=== PATIENT | female | born 1950 | race Caucasian/White ===

== ENCOUNTER → 2019-04-17 | Outpatient (CLI) | payer MEDICARE, OTHER ==
--- NOTE | 2019-04-17 14:10 | US ---
EXAMINATION TYPE: US venous doppler duplex LE DATE OF EXAM: 04/17/2019 1:59 PM COMPARISON: NONE CLINICAL HISTORY: Pain in BLE M79.662 M79.661. Pt states pain in legs, more on right side SIDE PERFORMED: Bilateral TECHNIQUE: The lower extremity deep venous system is examined utilizing real time linear array sonog misty with graded compression, doppler sonography and color-flow sonography. VESSELS IMAGED: External Iliac Vein (EIV) Common Femoral Vein Deep Femoral Vein Greater Saphenous Vein * Femoral Vein Popliteal Vein Small Saphenous Vein * Proximal Calf Veins (* superficial vessels) Right Leg: Negative for DVT Left Leg: Negative for DVT Results called to Allie at Dr's office at time of exam IMPRESSION: 1. Bilateral lower extremity ultrasound negative for deep venous thrombosis.
== END | disposition home or self-care (01) ==
LOC: RADUSWWP 13:32
PROVIDERS: ATTEND Family Medicine
DX: M79.661 Pain in right lower leg (principal); M79.662 Pain in left lower leg
CPT/HCPCS: 93970

== ENCOUNTER 2022-02-25 07:25 | Inpatient (IN) | payer MEDICARE, OTHER ==
--- NOTE | 2022-02-25 07:46 | ED ---
General Adult HPI - General Stated complaint: SOB Time Seen by Provider: 02/25/22 07:25 Source: patient, RN notes reviewed, old records reviewed - History of Present Illness Initial comments: This is a 72-year-old female presents emergency Department stating for about a week now she short of breath and anytime she gets up and exerts herself is much more short of breath. Patient states getting progressively worse and today she couldn't walk across a room without being completely out of breath. Patient denies any chest pain or palpitations. Patient denies any black or bloody stools. Patient denies any recent fever chills or cough. Patient denies being on any blood thinners. Patient denies any history of clots. Patient denies any history of anemia. Patient denies any COPD or congestive heart history. - Related Data Allergies Allergy/AdvReac Type Severity Reaction Status Date / Time Penicillins Allergy Rash/Hives Verified 02/25/22 07:41 strawberry Allergy Rash/Hives Verified 02/25/22 07:41 Review of Systems ROS Statement: Those systems with pertinent positive or pertinent negative responses have been documented in the HPI. ROS Other: All systems not noted in ROS Statement are negative. General Exam - General Exam Comments Initial Comments: GENERAL: Patient is well-developed and well-nourished. Patient is nontoxic and well- hydrated and is in mild distress. ENT: Neck is soft and supple. No significant lymphadenopathy is noted. Oropharynx is clear. Moist mucous membranes. Neck has full range of motion without e liciting any pain. EYES: The sclera were anicteric and conjunctiva were pink and moist. Extraocular movements were intact and pupils were equal round and reactive to light. Eyelids were unremarkable. PULMONARY: Unlabored respirations. Good breath sounds bilaterally. No audible rales rhonchi or wheezing was noted. CARDIOVASCULAR: There is a regular rate and rhythm without any murmurs gallops or rubs. ABDOMEN: Soft and nontender with normal bowel sounds. SKIN: Skin is mildly pale NEUROLOGIC: Patient is alert and oriented x3. Cranial nerves II through XII are grossly intact. Motor and sensory are also intact. Normal speech, volume and content. Symmetrical smile. MUSCULOSKELETAL: Normal extremities with adequate strength and full range of motion. LYMPHATICS: No significant lymphadenopathy is noted PSYCHIATRIC: Normal psychiatric evaluation. Course Vital Signs 02/25/22 02/25/22 07:27 09:44 Temperature 97.9 F Pulse Rate 111 H 109 H Respiratory 32 H 22 Rate Blood Pressure 136/92 96/72 O2 Sat by Pulse 94 L 94 L Oximetry Medical Decision Making - Medical Decision Making EKG shows sinus tachycardia with occasional PAC at 106 bpm [place] interval 167 QRS is 92 QT interval 340 QTC is 402. EKG showsan elevation or depression Chest x-ray shows cardiomegaly. I got a CAT scan of the patient's chest to rule out PE. Patient has massive bilateral bases with right heart strain. I spoke with Dr. Sylvester he agreed to come in and take the patient to the Adult Parole Officer for an EKOS procedure. Spoke with Dr. Barrera he agreed to admit the patient admitted the patient wrote admitting orders. I also spoke with Dr. Joya and he agreed to see the patient in ICU - Lab Data Result diagrams: 02/25/22 08:03 02/25/22 08:03 Lab Results 02/25/22 02/25/22 02/25/22 Range/Units 08:03 08:03 08:03 WBC 16.7 H (3.8-10.6) k/uL RBC 4.94 (3.80-5.40) m/uL Hgb 15.6 (11.4-16.0) gm/dL Hct 48.2 H (34.0-46.0) % MCV 97.6 (80.0-100.0) fL MCH 31.6 (25.0-35.0) pg MCHC 32.4 (31.0-37.0) g/dL RDW 13.7 (11.5-15.5) % Plt Count 226 (150-450) k/uL MPV 7.9 Neutrophils % 87 % Lymphocytes % 7 % Monocytes % 3 % Eosinophils % 1 % Basophils % 1 % Neutrophils # 14.5 H (1.3-7.7) k/uL Lymphocytes # 1.2 (1.0-4.8) k/uL Monocytes # 0.6 (0-1.0) k/uL Eosinophils # 0.2 (0-0.7) k/uL Basophils # 0.1 (0-0.2) k/uL PT 11.2 (9.0-12.0) sec INR 1.0 (<1.2) APTT 24.0 (22.0-30.0) sec D-Dimer 4.20 H (<0.60) mg/L FEU Sodium 136 L (137-145) mmol/L Potassium 3.5 (3.5-5.1) mmol/L Chloride 102 (98-107) mmol/L Carbon Dioxide 24 (22-30) mmol/L Anion Gap 10 mmol/L BUN 21 H (7-17) mg/dL Creatinine 1.14 H (0.52-1.04) mg/dL Est GFR (CKD-EPI)AfAm 55 (>60 ml/min/1.73 sqM) Est GFR (CKD-EPI)NonAf 48 (>60 ml/min/1.73 sqM) Glucose 186 H (74-99) mg/dL Plasma Lactic Acid Gabino (0.7-2.0) mmol/L Calcium 9.1 (8.4-10.2) mg/dL Magnesium 1.9 (1.6-2.3) mg/dL Total Bilirubin 2.9 H (0.2-1.3) mg/dL AST 42 H (14-36) U/L ALT 41 H (4-34) U/L Alkaline Phosphatase 146 H (38-126) U/L Troponin I (0.000-0.034) ng/mL NT-Pro-B Natriuret Pep pg/mL Total Protein 6.9 (6.3-8.2) g/dL Albumin 3.8 (3.5-5.0) g/dL Coronavirus (PCR) (Not Detectd) 02/25/22 02/25/22 02/25/22 Range/Units 08:03 08:03 08:26 WBC (3.8-10.6) k/uL RBC (3.80-5.40) m/uL Hgb (11.4-16.0) gm/dL Hct (34.0-46.0) % MCV (80.0-100.0) fL MCH (25.0-35.0) pg MCHC (31.0-37.0) g/dL RDW (11.5-15.5) % Plt Count (150-450) k/uL MPV Neutrophils % % Lymphocytes % % Monocytes % % Eosinophils % % Basophils % % Neutrophils # (1.3-7.7) k/uL Lymphocytes # (1.0-4.8) k/uL Monocytes # (0-1.0) k/uL Eosinophils # (0-0.7) k/uL Basophils # (0-0.2) k/uL PT (9.0-12.0) sec INR (<1.2) APTT (22.0-30.0) sec D-Dimer (<0.60) mg/L FEU Sodium (137-145) mmol/L Potassium (3.5-5.1) mmol/L Chloride (98-107) mmol/L Carbon Dioxide (22-30) mmol/L Anion Gap mmol/L BUN (7-17) mg/dL Creatinine (0.52-1.04) mg/dL Est GFR (CKD-EPI)AfAm (>60 ml/min/1.73 sqM) Est GFR (CKD-EPI)NonAf (>60 ml/min/1.73 sqM) Glucose (74-99) mg/dL Plasma Lactic Acid Gabino (0.7-2.0) mmol/L Calcium (8.4-10.2) mg/dL Magnesium (1.6-2.3) mg/dL Total Bilirubin (0.2-1.3) mg/dL AST (14-36) U/L ALT (4-34) U/L Alkaline Phosphatase (38-126) U/L Troponin I 0.169 H* (0.000-0.034) ng/mL NT-Pro-B Natriuret Pep 6630 pg/mL Total Protein (6.3-8.2) g/dL Albumin (3.5-5.0) g/dL Coronavirus (PCR) Not Detected (Not Detectd) 02/25/22 Range/Units 08:28 WBC (3.8-10.6) k/uL RBC (3.80-5.40) m/uL Hgb (11.4-16.0) gm/dL Hct (34.0-46.0) % MCV (80.0-100.0) fL MCH (25.0-35.0) pg MCHC (31.0-37.0) g/dL RDW (11.5-15.5) % Plt Count (150-450) k/uL MPV Neutrophils % % Lymphocytes % % Monocytes % % Eosinophils % % Basophils % % Neutrophils # (1.3-7.7) k/uL Lymphocytes # (1.0-4.8) k/uL Monocytes # (0-1.0) k/uL Eosinophils # (0-0.7) k/uL Basophils # (0-0.2) k/uL PT (9.0-12.0) sec INR (<1.2) APTT (22.0-30.0) sec D-Dimer (<0.60) mg/L FEU Sodium (137-145) mmol/L Potassium (3.5-5.1) mmol/L Chloride (98-107) mmol/L Carbon Dioxide (22-30) mmol/L Anion Gap mmol/L BUN (7-17) mg/dL Creatinine (0.52-1.04) mg/dL Est GFR (CKD-EPI)AfAm (>60 ml/min/1.73 sqM) Est GFR (CKD-EPI)NonAf (>60 ml/min/1.73 sqM) Glucose (74-99) mg/dL Plasma Lactic Acid Gabino 3.2 H* (0.7-2.0) mmol/L Calcium (8.4-10.2) mg/dL Magnesium (1.6-2.3) mg/dL Total Bilirubin (0.2-1.3) mg/dL AST (14-36) U/L ALT (4-34) U/L Alkaline Phosphatase (38-126) U/L Troponin I (0.000-0.034) ng/mL NT-Pro-B Natriuret Pep pg/mL Total Protein (6.3-8.2) g/dL Albumin (3.5-5.0) g/dL Coronavirus (PCR) (Not Detectd) Critical Care Time Critical Care Time: Yes Total Critical Care Time: 35 Disposition Clinical Impression: Pulmonary embolism Disposition: ADMITTED IP TO THIS HOSP Referrals: Regulo Greene DO [Primary Care Provider] - 1-2 days Time of Disposition: 10:03
[2022-02-25 08:09] LABS: Basophils # (A) 0.1 k/uL (0-0.2); Basophils % (A) 1 %; Eosinophils # (A) 0.2 k/uL (0-0.7); Eosinophils % (A) 1 %; HCT 48.2 % (34.0-46.0); HGB 15.6 gm/dL (11.4-16.0); Lymphocytes # (A) 1.2 k/uL (1.0-4.8); Lymphocytes % (A) 7 %; MCH 31.6 pg (25.0-35.0); MCHC 32.4 g/dL (31.0-37.0); MCV 97.6 fL (80.0-100.0); Mean Platelet Volume 7.9; Monocytes # (A) 0.6 k/uL (0-1.0); Monocytes % (A) 3 %; Neutrophils # (A) 14.5 k/uL (1.3-7.7); Neutrophils % (A) 87 %; Platelet Count 226 k/uL (150-450); RBC 4.94 m/uL (3.80-5.40); RDW 13.7 % (11.5-15.5); WBC 16.7 k/uL (3.8-10.6)
[2022-02-25 08:20] LABS: Albumin 3.8 g/dL (3.5-5.0); Calcium 9.1 mg/dL (8.4-10.2); Magnesium 1.9 mg/dL (1.6-2.3); Potassium 3.5 mmol/L (3.5-5.1); Total Bilirubin 2.9 mg/dL (0.2-1.3); Total Protein 6.9 g/dL (6.3-8.2)
--- NOTE | 2022-02-25 08:22 | XR ---
EXAMINATION TYPE: XR chest 2V DATE OF EXAM: 02/25/2022 COMPARISON: NONE HISTORY: Shortness of breath. TECHNIQUE: Frontal and lateral views of the chest are obtained. FINDINGS: Elevated and eventrated anterior aspect right hemidiaphragm. There is mild cardiomegaly wi th bilateral hilar prominence possible underlying pulmonary artery hypertension. Mild central vascu lar congestion is seen. No pleural effusion or pneumothorax noted bilaterally. The osseous structures are intact. IMPRESSION: Suspect CHF exacerbation as there is mild cardiomegaly with mild central vascular conges tion. Correlate clinically and with BNP values.
[2022-02-25 08:27] LABS: Prothrombin Time 11.2 sec (9.0-12.0)
[2022-02-25] MEDS ORDERED: HEPARIN SODIUM 1,000 UN/ML (10ML VL) IV ONE (09:33)
--- NOTE | 2022-02-25 09:41 | CT ---
EXAMINATION TYPE: CT chest angio for PE DATE OF EXAM: 02/25/2022 COMPARISON: NONE HISTORY: Shortness of breath with elevated d-dimer CT DLP: 868.8 mGycm. Automated Exposure Control for Dose Reduction was Utilized. CONTRAST: CTA scan of the thorax is performed with IV Contrast, patient injected with 80 mL of Isovue 370, pulm onary embolism protocol. MIP Images are created on CT scanner and reviewed. FINDINGS: Evaluation is suboptimal as patient unable to hold breath. This limits evaluation for subce ntimeter nodules LUNGS: Elevated and eventrated anterior aspect right hemidiaphragm redemonstrated. Small focus of bob undglass opacity in the superior aspect left lower lobe. Some increased ground glass opacities in the bilateral hilar region. No pleural effusion or pneumothorax seen bilaterally. MEDIASTINUM: There is satisfactory enhancement of the pulmonary artery and its branches, there is si gnificant bilateral pulmonary emboli. Embolism in the distal right pulmonary artery extends into uppe r lobe branch axial image 51. There is right middle lobe involvement with segmental extension. There is segmental thrombus in the right lower lobe with subsegmental extension. There is clot in lingular and left lower lobe arterial takeoffs with segmental and subsegmental extension. Some additional clot and segmental branches in the left upper lobe. There is right ventricular dilatation axial image 84. Abnormal ratio. Moderate to severe right atrial dilatation is seen. Mild cardiomegaly. No pericardial effusion. Slight reflux of contrast into the suprahepatic IVC. Enlarged pulmonary all giles consistent with underlying pulmonary artery hypertension. OTHER: Cholecystectomy clips. Some cortical thinning in both kidneys. [id number] multilevel spu rring and disc space narrowing in the thoracic spine. Exaggerated thoracic kyphosis. IMPRESSION: Significant bilateral pulmonary emboli with CT evidence suggesting right ventricular strain as detail ed above. Critical results communicated to ordering ER physician via telephone at time of dictation
[2022-02-25] MEDS: HEPARIN SOD,PORK IN 0.45% NACL 25,000 UNIT in 0.45% NACL 1 250ML.BAG IV SCH (09:42)
--- NOTE | 2022-02-25 10:42 | P.HPIM ---
History of Present Illness 72-year-old pleasant female came in with complains of shortness of breath going on for about a week denied any history of COPD and CHF patient was also comparing of swelling in the right lower extremity which is going on over a week. Patient denied any fever chills patient denied any recent travel patient is obese does have osteoarthritis because of which she uses a walker walker. Patient is up-to-date with the mammograms and cervical cancer screening patient had colon cancer screening with FOBT but the never had colonoscopy. Patient the did lose some weight as she is not been eating well since shortness of breath otherwise there is no other significant weight loss. Patient is found to have extensive bilateral pulmonary embolism with elevated troponin and the right ventricle as strain on the CT of the chest echocardiogram will be obtained. Patient was started on IV heparin vascular surgery was consulted and patient will under ECOS. Any family history of blood clots patient denied any previous history of blood clots. She denied any chest pain REVIEW OF SYSTEMS: CONSTITUTIONAL: No fever, no malaise, no fatigue. HEENT: No recent visual problems or hearing problems. Denied any sore throat. CARDIOVASCULAR: No chest pain, orthopnea, PND, no palpitations, no syncope. PULMONARY: no cough, no hemoptysis. GASTROINTESTINAL: No diarrhea, no nausea, no vomiting, no abdominal pain. NEUROLOGICAL: No headaches, no weakness, no numbness. HEMATOLOGICAL: Denies any bleeding or petechiae. GENITOURINARY: Denies any burning micturition, frequency, or urgency. MUSCULOSKELETAL/RHEUMATOLOGICAL: Denies any joint pain, swelling, or any muscle pain. ENDOCRINE: Denies any polyuria or polydipsia. The rest of the 14-point review of systems is negative. PHYSICAL EXAMINATION: GENERAL: The patient is alert and oriented x3, not in any acute distress. Obese HEENT: Pupils are round and equally reacting to light. EOMI. No scleral icterus. No conjunctival pallor. Normocephalic, atraumatic. No pharyngeal erythema. No thyromegaly. CARDIOVASCULAR: S1 and S2 present. No murmurs, rubs, or gallops. PULMONARY: Chest is clear to auscultation, no wheezing or crackles. ABDOMEN: Soft, nontender, nondistended, normoactive bowel sounds. No palpable organomegaly. MUSCULOSKELETAL: No joint swelling or deformity. EXTREMITIES: No cyanosis, clubbing, or lateral lower extremity pitting pedal edema right more than left denied any leg pain. NEUROLOGICAL: Gross neurological examination did not reveal any focal deficits. SKIN: No rashes. Assessment and plan 1 acute hypoxic respiratory failure secondary to extensive pulmonary embolism. Patient on IV heparin. -Extensive bilateral pulmonary embolism with possible right lower extremity DVT. PE is probably due to her decreased functional status and obesity. Patient will need to be on anti-correlation for 3-6 months followed by workup for procoagulant conditions as an outpatient. Patient will undergo ECOS. Obesity -leukocytosis secondary to pulmonary embolism -Elevated troponins probably secondary to right ventricle strain -Mild acute renal failure. Continue with IV fluids probably prerenal azotemia -Mildly elevated liver enzymes/transaminitis no further intervention at this time secondary to PE DVT prophylaxis: As mentioned above Past Medical History Past Medical History: Hyperlipidemia, Hypertension History of Any Multi-Drug Resistant Organisms: None Reported Past Surgical History: Cholecystectomy, Hysterectomy Additional Past Surgical History / Comment(s): Pt states she had a rt hip replacement 20 years ago Past Psychological History: No Psychological Hx Reported Smoking Status: Former smoker Past Alcohol Use History: None Reported Past Drug Use History: None Reported Medications and Allergies Allergies Allergy/AdvReac Type Severity Reaction Status Date / Time Penicillins Allergy Rash/Hives Verified 02/25/22 07:41 strawberry Allergy Rash/Hives Verified 02/25/22 07:41 Physical Exam Vitals: Vital Signs Temp Pulse Resp BP Pulse Ox 02/25/22 09:44 109 H 22 96/72 94 L 02/25/22 07:27 97.9 F 111 H 32 H 136/92 94 L Intake and Output 02/24/22 02/25/22 02/25/22 22:59 06:59 14:59 Other: Weight 133.81 kg Results CBC & Chem 7: 02/25/22 08:03 02/25/22 08:03 Labs: Abnormal Lab Results - Last 24 Hours (Table) 02/25/22 02/25/22 02/25/22 Range/Units 08:03 08:03 08:03 WBC 16.7 H (3.8-10.6) k/uL Hct 48.2 H (34.0-46.0) % Neutrophils # 14.5 H (1.3-7.7) k/uL D-Dimer 4.20 H (<0.60) mg/L FEU Sodium 136 L (137-145) mmol/L BUN 21 H (7-17) mg/dL Creatinine 1.14 H (0.52-1.04) mg/dL Glucose 186 H (74-99) mg/dL Plasma Lactic Acid Gabino (0.7-2.0) mmol/L Total Bilirubin 2.9 H (0.2-1.3) mg/dL AST 42 H (14-36) U/L ALT 41 H (4-34) U/L Alkaline Phosphatase 146 H (38-126) U/L Troponin I (0.000-0.034) ng/mL 02/25/22 02/25/22 Range/Units 08:03 08:28 WBC (3.8-10.6) k/uL Hct (34.0-46.0) % Neutrophils # (1.3-7.7) k/uL D-Dimer (<0.60) mg/L FEU Sodium (137-145) mmol/L BUN (7-17) mg/dL Creatinine (0.52-1.04) mg/dL Glucose (74-99) mg/dL Plasma Lactic Acid Gabino 3.2 H* (0.7-2.0) mmol/L Total Bilirubin (0.2-1.3) mg/dL AST (14-36) U/L ALT (4-34) U/L Alkaline Phosphatase (38-126) U/L Troponin I 0.169 H* (0.000-0.034) ng/mL
[2022-02-25] MEDS ORDERED: LORazepam 2 MG/ML INJ IV STA (10:45)
--- NOTE | 2022-02-25 11:11 | P.CRDCN ---
History of Present Illness History of present illness: HISTORY OF PRESENTING ILLNESS Patient is a pleasant 72-year-old female with only medical history of orthopedic issues who presents secondary to worsening shortness breath over the last 2-3 w eeks. She states that initially 3 weeks ago she felt this started with a sinus infection and started to feel somewhat short of breath. Therefore she was given antibiotics and did not really have much of an improvement. She felt much worse 4 days ago in terms of her shortness breath and then somewhat more lightheaded and short of breath especially yesterday and therefore presented to emergency department. She was noted to be hypoxic and placed on nonrebreather. She has also noticed increased lower extremity swelling over the last week or 2. DDimer 4.2, LA 3.2, Cr 1.1, Troponin 0.16, T Bili 2.9, AST 42, ALT 41, proBNP 6630, WBC 16.7, hgb 15.6 CTA bilateral PE with RV strain. REVIEW OF SYSTEMS At the time of my exam: CONSTITUTIONAL: Denies fever or chills. CARDIOVASCULAR: +chest pain, +shortness of breath, no orthopnea, PND or palpitations. RESPIRATORY: Denies cough. GASTROINTESTINAL: Denies abdominal pain, diarrhea, constipation, nausea or vomiting. MUSCULOSKELETAL: Denies myalgias. NEUROLOGIC: Denies numbness, tingling or weakness. ENDOCRINE: Denies fatigue, weight change, polydipsia or polyurina. GENITOURINARY: Denies burning, hematuria or urgency with micturation. HEMATOLOGIC: Denies history of anemia or bleeding. PHYSICAL EXAMINATION Vital signs reviewed. CONSTITUTIONAL: No apparent distress, mildly tachycardic, on nonrebreather HEENT: Head is normocephalic. Pupils are equal, round. Sclerae anicteric. Mucous membranes of the mouth are moist. No JVD. No carotid bruit. CHEST EXAMINATION: Lungs are clear to auscultation. No chest wall tenderness is noted on palpation or with deep breathing. HEART EXAMINATION: Regular rate and rhythm. S1, S2 heard. No murmurs, gallops or rub. ABDOMEN: Soft, nontender. Positive bowel sounds. EXTREMITIES: 2+ peripheral pulses, 1-2+ lower extremity edema and no calf tenderness. NEUROLOGIC EXAMINATION: Patient is awake, alert and oriented x3. ASSESSMENT 1. Acute oxygen-dependent respiratory failure related to pulmonary embolism 2. Submassive bilateral pulmonary embolism with RV strain 3. Non-STEMI likely related to pulmonary embolism 4. Chest pain related to pulmonary embolism 5. Lower extremity edema rule out DVT versus component of right-sided heart failure PLAN CT reviewed with bilateral PE and evidence of RV strain. Check 2D echo. Continue heparin drip. Discussed recommendations for EKOS and patient is agreeable. Elevated troponins and chest pain appear related to PE and not consistent with angina however evaluate LV function. Check LE US r/o DVT. Further recommendations to follow. Past Medical History Past Medical History: Hyperlipidemia, Hypertension History of Any Multi-Drug Resistant Organisms: None Reported Past Surgical History: Cholecystectomy, Hysterectomy Additional Past Surgical History / Comment(s): Pt states she had a rt hip replacement 20 years ago Past Psychological History: No Psychological Hx Reported Smoking Status: Former smoker Past Alcohol Use History: None Reported Past Drug Use History: None Reported Medications and Allergies Allergies Allergy/AdvReac Type Severity Reaction Status Date / Time Penicillins Allergy Rash/Hives Verified 02/25/22 07:41 strawberry Allergy Rash/Hives Verified 02/25/22 07:41 Physical Exam Vitals: Vital Signs Temp Pulse Resp BP Pulse Ox 02/25/22 09:44 109 H 22 96/72 94 L 02/25/22 07:27 97.9 F 111 H 32 H 136/92 94 L Intake and Output 02/24/22 02/25/22 02/25/22 22:59 06:59 14:59 Other: Weight 133.81 kg Results 02/25/22 08:03 02/25/22 08:03 Cardiac Enzymes 02/25/22 02/25/22 Range/Units 08:03 08:03 AST 42 H (14-36) U/L Troponin I 0.169 H* (0.000-0.034) ng/mL Coagulation 02/25/22 Range/Units 08:03 PT 11.2 (9.0-12.0) sec APTT 24.0 (22.0-30.0) sec CBC 02/25/22 Range/Units 08:03 WBC 16.7 H (3.8-10.6) k/uL RBC 4.94 (3.80-5.40) m/uL Hgb 15.6 (11.4-16.0) gm/dL Hct 48.2 H (34.0-46.0) % Plt Count 226 (150-450) k/uL Comprehensive Metabolic Panel 02/25/22 Range/Units 08:03 Sodium 136 L (137-145) mmol/L Potassium 3.5 (3.5-5.1) mmol/L Chloride 102 (98-107) mmol/L Carbon Dioxide 24 (22-30) mmol/L BUN 21 H (7-17) mg/dL Creatinine 1.14 H (0.52-1.04) mg/dL Glucose 186 H (74-99) mg/dL Calcium 9.1 (8.4-10.2) mg/dL AST 42 H (14-36) U/L ALT 41 H (4-34) U/L Alkaline Phosphatase 146 H (38-126) U/L Total Protein 6.9 (6.3-8.2) g/dL Albumin 3.8 (3.5-5.0) g/dL Current Medications Generic Name Dose Route Start Last Admin Trade Name Freq PRN Reason Stop Dose Admin Heparin Sodium/Sodium Chloride 250 mls @ 22.999 mls/hr 02/25/22 09:45 02/25/22 09:42 25,000 unit/ Sodium Chloride IV 17.188 units/kg/hr .[id number] ANNA 22.999 mls/hr Administration Protocol 17.188 UNITS/KG/HR Intake and Output 02/24/22 02/25/22 02/25/22 22:59 06:59 14:59 Other: Weight 133.81 kg Patient Weight 02/26/22 06:59 Weight 133.81 kg 02/25/22 08:03 02/25/22 08:03
--- NOTE | 2022-02-25 12:14 | US ---
EXAMINATION TYPE: US venous doppler duplex LE BI DATE OF EXAM: 02/25/2022 12:06 PM COMPARISON: NONE CLINICAL HISTORY: 72-year-old female with lower extremity edema, rule out DVT. Bilateral edema with c urrent PE. SIDE PERFORMED: Bilateral TECHNIQUE: The lower extremity deep venous system is examined utilizing real time linear array sonog misty with graded compression, doppler sonography and color-flow sonography. FINDINGS: VESSELS IMAGED: Common Femoral Vein Deep Femoral Vein Greater Saphenous Vein * Femoral Vein Popliteal Vein Small Saphenous Vein * Proximal Calf Veins (* superficial vessels) Right Leg: Negative for DVT Left Leg: Negative for DVT Car Hop notes: No DVT seen at this time, limited assessment of the calf vessels due to patient lasha dy habitus, Right Peroneal veins are not seen. IMPRESSION: No evidence for DVT within the bilateral lower extremities imaged from the groin into the uppermost c corley. Further assessment of the calf vessels is limited due to patient body habitus.
[2022-02-25] MEDS ORDERED: ALTEPLASE 10 MG in SODIUM CHLORIDE 0.9% 90 ML IV ONE ×4 (13:21)
[2022-02-25 13:26] LABS: Glucose,Whole Blood 159 mg/dL (75-99)
[2022-02-25] MEDS ORDERED: ALTEPLASE 2 MG VIAL (CATHFLO) IV STA (13:27)
[2022-02-25] MEDS ORDERED: HEPARIN SOD,PORK IN 0.45% NACL 25,000 UNIT in 0.45% NACL 1 250ML.BAG IV SCH ×2 (13:30)
[2022-02-25] MEDS ORDERED: SODIUM CHLORIDE 0.9% 1,000 ML IV SCH ×2 (13:30)
[2022-02-25] MEDS ORDERED: fentaNYL (PF) 50 MCG/ML 2 ML AMP ONE (13:56)
[2022-02-25] MEDS ORDERED: MIDAZOLAM 2 MG/2 ML VIAL IV ONE (13:57)
[2022-02-25] MEDS ORDERED: fentaNYL (PF) 50 MCG/ML 2 ML AMP IV ONE (13:59)
[2022-02-25] MEDS ORDERED: LIDOCAINE 1% INJ 10MG/ML (20 ML MDV) SQ ONE (14:00)
[2022-02-25] MEDS ORDERED: SODIUM CHLORIDE 0.9% 500 ML 500 ML IV ONE ×2 (14:34→14:35)
[2022-02-25 15:06] LABS: Glucose,Whole Blood 165 mg/dL (75-99)
--- NOTE | 2022-02-25 15:20 | P.CNPUL ---
History of Present Illness Consult date: 02/25/22 Requesting physician: Rene Sylvester Reason for consult: dyspnea Chief complaint: Shortness of breath History of present illness: 72-year-old female patient of Dr. Regulo Greene with past medical history of hypertension, hyperlipidemia, osteoarthritis, lifetime nonsmoker who came into the emergency department on 02/25/2022 with one week history of worsening shortness of breath especially with exertion. Patient stated that the shortness of breath has been progressively worse and today she couldn't walk across the room without being completely out of breath. She denied chest pain or palpit ations, no recent illness, no fever, chills or cough. No previous history of DVT or pulmonary emboli. No history of chronic lung disease, no COPD or CHF. Not normally oxygen dependent. EKG shows sinus tachycardia with occasional PACs, chest x-ray showed cardiomegaly, CT angiogram of the chest to rule out pulmonary embolism showed massive bilateral pulmonary emboli with right heart strain. Admission blood work showed white blood cell count of 16.7, hemoglobin of 15.6. INR was 1.0, d-dimer was 4.2, sodium is 136, potassium is 3.5, chloride is 102, BUN is 21, creatinine is 1.14. Lactic acid was 3.2 and subsequently increased to 3.7, AST was 42, ALT was 41, alk phos was 146, troponin was 0.169, proBNP was 6630. COVID-19 PCR was negative. Patient was urgently seen by cardiology and was advised EKOS catheter placement with alteplase infusion. Patient denied recent surgery, denied increased immobility, long car ride or airplane ride. She did have a what felt like a sinus infection for which she was treated with antibiotics. Patient does have a lower extremity edema but lower extremity Dopplers were negative for DVT. 2-D echocardiogram is pending. 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 She states her breathing is improved, she is currently in the 100% nonrebreather mask she is awake and alert, oriented 3. Appears to be in no acute distress. She is waiting to be transferred to the intensive care unit. Review of Systems All systems: negative Constitutional: Denies chills, Denies fever Eyes: denies blurred vision, denies pain Ears, nose, mouth and throat: Denies headache, Denies sore throat Cardiovascular: Reports chest pain, Denies shortness of breath Respiratory: Reports dyspnea, Denies cough Gastrointestinal: Denies abdominal pain, Denies diarrhea, Denies nausea, Denies vomiting Genitourinary: Denies dysuria, Denies hematuria Musculoskeletal: Denies myalgias Integumentary: Denies pruritus, Denies rash Neurological: Denies numbness, Denies weakness Psychiatric: Denies anxiety, Denies depression Endocrine: Denies fatigue, Denies weight change Past Medical History Past Medical History: Hyperlipidemia, Hypertension History of Any Multi-Drug Resistant Organisms: None Reported Past Surgical History: Cholecystectomy, Hysterectomy Additional Past Surgical History / Comment(s): Pt states she had a rt hip replacement 20 years ago Past Psychological History: No Psychological Hx Reported Smoking Status: Former smoker Past Alcohol Use History: None Reported Past Drug Use History: None Reported Medications and Allergies Home Medications Medication Instructions Recorded Confirmed Type Aspirin 81 mg PO HS 02/25/22 02/25/22 History Atorvastatin [Lipitor] 80 mg PO HS 02/25/22 02/25/22 History Bisoprolol-Hctz 2.5-6.25 mg [Ziac 1 tab PO DAILY 02/25/22 02/25/22 History 2.5-6.25 MG] Furosemide [Lasix] 20 mg PO DAILY 02/25/22 02/25/22 History Levothyroxine Sodium [Synthroid] 75 mcg PO DAILY 02/25/22 02/25/22 History Meloxicam [Mobic] 15 mg PO DAILY 02/25/22 02/25/22 History amLODIPine [Norvasc] 10 mg PO HS 02/25/22 02/25/22 History Allergies Allergy/AdvReac Type Severity Reaction Status Date / Time Penicillins Allergy Rash/Hives Verified 02/25/22 13:11 @ Allergy testing site strawberry Allergy Rash/Hives Verified 02/25/22 13:11 all over body Physical Exam Vitals: Vital Signs Temp Pulse Resp BP Pulse Ox 02/25/22 14:54 103 H 26 H 109/21 94 L 02/25/22 12:33 108 H 30 H 103/66 96 02/25/22 09:44 109 H 22 96/72 94 L 02/25/22 08:34 32 H 02/25/22 07:27 97.9 F 111 H 32 H 136/92 94 L Intake and Output 02/24/22 02/25/22 02/25/22 22:59 06:59 14:59 Output Total 0 Balance 0 Output: Urine 0 Other: Weight 133.81 kg GENERAL EXAM: Alert, very pleasant, 72-year-old white female, on the 100% n onrebreather mask, seen in the cathlab, comfortable in no apparent distress. HEAD: Normocephalic/atraumatic. EYES: Normal reaction of pupils, equal size. Conjunctiva pink, sclera white. NOSE: Clear with pink turbinates. THROAT: No erythema or exudates. NECK: No masses, no JVD, no thyroid enlargement, no adenopathy. CHEST: No chest wall deformity. Symmetrical expansion. LUNGS: Equal air entry with no crackles, wheeze, rhonchi or dullness. CVS: Regular rate and rhythm, normal S1 and S2, no gallops, no murmurs, no rubs ABDOMEN: Soft, nontender. No hepatosplenomegaly, normal bowel sounds, no g uarding or rigidity. Right groin catheters in place EXTREMITIES: No clubbing, no edema, no cyanosis, 2+ pulses and upper and lower extremities. MUSCULOSKELETAL: Muscle strength and tone normal. SPINE: No scoliosis or deformity SKIN: No rashes CENTRAL NERVOUS SYSTEM: Alert and oriented -3. No focal deficits, tone is normal in all 4 extremities. PSYCHIATRIC: Alert and oriented -3. Appropriate affect. Intact judgment and insight. Results - Laboratory Findings CBC and BMP: 02/25/22 08:03 02/25/22 08:03 PT/INR, D-dimer PT 11.2 sec (9.0-12.0) 02/25/22 08:03 INR 1.0 (<1.2) 02/25/22 08:03 D-Dimer 4.20 mg/L FEU (<0.60) H 02/25/22 08:03 Abnormal lab findings: Abnormal Labs 02/25/22 02/25/22 02/25/22 08:03 08:03 08:03 WBC 16.7 H Hct 48.2 H Neutrophils # 14.5 H APTT D-Dimer 4.20 H Sodium 136 L BUN 21 H Creatinine 1.14 H Glucose 186 H POC Glucose (mg/dL) Plasma Lactic Acid Gabino Total Bilirubin 2.9 H AST 42 H ALT 41 H Alkaline Phosphatase 146 H Troponin I 02/25/22 02/25/22 02/25/22 08:03 08:28 13:03 WBC Hct Neutrophils # APTT D-Dimer Sodium BUN Creatinine Glucose POC Glucose (mg/dL) Plasma Lactic Acid Gabino 3.2 H* 3.7 H* Total Bilirubin AST ALT Alkaline Phosphatase Troponin I 0.169 H* 02/25/22 02/25/22 13:21 13:24 WBC Hct Neutrophils # APTT >200.0 H* D-Dimer Sodium BUN Creatinine Glucose POC Glucose (mg/dL) 159 H Plasma Lactic Acid Gabino Total Bilirubin AST ALT Alkaline Phosphatase Troponin I - Diagnostic Findings Chest x-ray: report reviewed, image reviewed CT scan - chest: report reviewed, image reviewed Additional studies: Venous doppler results ekg reviewed Assessment and Plan Plan: Assessment: #1. Acute hypoxic respiratory failure, shortness of breath related to submassive bilateral pulmonary emboli with CT evidence suggesting right ventricular strain, status post EKOS catheter placement and alteplase infusion on 02/25/2022 #2. Elevated troponins related to the above #3. Lower extremity edema, no evidence of DVT on lower extremity Dopplers #4. Recent sinus infection #5. Osteoarthritis #6. Hypertension #7. Hyperlipidemia #8. Nonsmoker #9. Morbid obesity with BMI of 49.1 kg/m Plan: Continue post EKOS catheter placement care and alteplase infusion per cardiology in the intensive care unit Hemodynamically patient is stable Weaning FiO2 to keep O2 sat at or above 92-94% Echocardiogram is pending Home meds have been reconciled, and some of them reordered We'll hold off on blood pressure pills including Norvasc, Ziac, Hold Mobic We may add IV Cleviprex if there are issues with high blood pressure Continue close hemodynamic monitoring in the intensive care unit I have personally seen and examined the patient, performed the documentation and the assessment and plan as written. Number of minutes spent on the visit: [15] Time with Patient: Greater than 30
[2022-02-25] MEDS: LEVOTHYROXINE 75 MCG TAB PO SCH (16:15)
--- NOTE | 2022-02-25 19:00 | ECHOF ---
Referral Reason:re: RV strain MEASUREMENTS -------- HEIGHT: 165.1 cm WEIGHT: 133.8 kg BP: 113/65 RVIDd: 4.3 cm (< 3.3) IVSd: 1.7 cm (0.6 - 1.1) LVIDd: 2.3 cm (3.9 - 5.3) LVPWd: 1.6 cm (0.6 - 1.1) IVSs: 1.8 cm LVIDs: 1.4 cm LVPWs: 2.0 cm Ao Diam: 2.2 cm (2.0 - 3.7) AV Cusp: 1.1 cm (1.5 - 2.6) LA Diam: 5.7 cm (2.7 - 3.8) MV E Chandrakant: 0.53 m/s MV DecT: 144 ms MV A Chandrakant: 1.11 m/s MV E/A Ratio: 0.48 RAP: 5.00 mmHg RVSP: 75.14 mmHg TAPSE: 17.26 mm FINDINGS -------- Sinus rhythm. This was a technically adequate study. The left ventricular size is normal. There is severe concentric left ventricular hypertrophy. Ove rall left ventricular systolic function is normal with, an EF between 55 - 60 %. Increased Lap Grad e II Diastolic Dysfunction. The right ventricle is severely enlarged. Paradoxical motion of the right ventricular septum is con sistent with right ventricular overload and/or elevated right ventricular end-diastolic pressure. R V Systolic Dysfunction The left atrium was not well visualized. The right atrium is moderately enlarged. Interatrial septal aneurysm. The aortic valve is trileaflet and appears structurally normal. There is no evidence of aortic regu rgitation. There is no evidence of aortic stenosis. Mild mitral regurgitation is present. Severe tricuspid regurgitation present. There is severe pulmonary hypertension. The right ventric ular systolic pressure, as measured by Doppler, is 75.14mmHg. There is no pulmonic regurgitation present. The aortic root size is normal. IVC Not well visulized. There is no pericardial effusion. CONCLUSIONS -------- 1. The left ventricular size is normal. 2. There is severe concentric left ventricular hypertrophy. 3. Overall left ventricular systolic function is normal with, an EF between 55 - 60 %. 4. Increased Lap Grade II Diastolic Dysfunction. 5. The right ventricle is severely enlarged. 6. Paradoxical motion of the right ventricular septum is consistent with right ventricular overload a nd/or elevated right ventricular end-diastolic pressure. 7. RV Systolic Dysfunction 8. The right atrium is moderately enlarged. 9. Interatrial septal aneurysm. 10. Mild mitral regurgitation is present. 11. Severe tricuspid regurgitation present. 12. There is severe pulmonary hypertension. 13. The right ventricular systolic pressure, as measured by Doppler, is 75.14mmHg. BOILING TUB OPERATOR: Rhea Solis RDCS
--- NOTE | 2022-02-25 20:38 | P.PCN ---
Description of Procedure: PROCEDURES PERFORMED: Placement of EKOS catheters x 2 in bilateral pulmonary arteries, catheter directed TPA INDICATION: Submassive PE with RV strain CONSENT:I have discussed the risks, benefits and alternative therapies for the above-mentioned procedure and for both sedation/analgesia as well as necessary blood product administration, if indicated, as they pertain to this patient. The patient has indicated understanding and acceptance of the risks and procedures discussed. PROCEDURE: After the risks, benefits and alternatives of the above mentioned procedure explained in detail with the patient, informed consent was obtained. Patient was taken to the catheterization lab and prepped and draped in usual fashion. 1% lidocaine was used to anesthetize the right femoral area. 2 x 6- Czech sheaths were placed in the right femoral vein using modified Seldinger technique and ultrasound guidance. Using a FR4 catheter and a 0.035 glide advantage wire, the glide advantage was placed in each pulmonary artery. The FR4 catheter was then exchanged for a EKOS catheter. 2mg of TPA was given through each catheter. The sheaths were sutured in place. The patient tolerated the procedure well. Patient was transported back to the post catheterization holding area in stable condition. Conscious Sedation: Patient was monitored under the direct supervision of vision of myself for conscious sedation using Versed and fentanyl for a total duration of 32 minutes FINAL IMPRESSION: 1. S/p successful placement of EKOS catheter in bilateral pulmonary artery with catheter directed TPA. PLAN: 1. Continue catheter directed TPA infusion/ EKOS for a total of 10 hours.
[2022-02-25] MEDS: ATORVASTATIN 80 MG TAB PO SCH (21:33)
[2022-02-25] MEDS: ASPIRIN 81 MG PO SCH (21:33)
[2022-02-25 22:36] LABS: Partial Thromboplastin Time 21.9 sec (22.0-30.0)
[2022-02-26] MEDS: LEVOTHYROXINE 75 MCG TAB PO SCH (06:58)
--- NOTE | 2022-02-26 08:22 | XR ---
EXAMINATION TYPE: XR chest 1V portable DATE OF EXAM: 02/26/2022 COMPARISON: Chest x-ray 02/25/2022 HISTORY: Shortness of breath TECHNIQUE: Single frontal view of the chest is obtained. FINDINGS: Infusion catheters are noted in the bilateral pulmonary arteries. No evident pneumothorax or pleural effusion. Cardiac mediastinal silhouette is stable. Patient is rotated. Right hemidiaphrag m is elevated. Question some minimal patchy basilar density. IMPRESSION: Infusion catheter is in place. Probable basilar atelectasis.
[2022-02-26] MEDS: APIXABAN 5 MG TAB PO SCH ×2 (08:26→20:10)
[2022-02-26 09:34] LABS: Basophils # (A) 0.1 k/uL (0-0.2); Basophils % (A) 1 %; Eosinophils # (A) 0.3 k/uL (0-0.7); Eosinophils % (A) 3 %; HCT 45.4 % (34.0-46.0); HGB 14.2 gm/dL (11.4-16.0); Hypochromasia Slight; Lymphocytes # (A) 1.6 k/uL (1.0-4.8); Lymphocytes % (A) 12 %; MCH 31.9 pg (25.0-35.0); MCHC 31.3 g/dL (31.0-37.0); Macrocytosis Slight; Mean Platelet Volume 8.1; Monocytes # (A) 0.8 k/uL (0-1.0); Monocytes % (A) 6 %; Neutrophils # (A) 10.4 k/uL (1.3-7.7); Neutrophils % (A) 78 %; Platelet Count 155 k/uL (150-450); RBC 4.44 m/uL (3.80-5.40); RDW 13.6 % (11.5-15.5); WBC 13.3 k/uL (3.8-10.6)
[2022-02-26 10:18] LABS: Calcium 8.5 mg/dL (8.4-10.2)
--- NOTE | 2022-02-26 12:06 | P.PN ---
Subjective Progress Note Date: 02/26/22 This is a 72-year-old female was admitted to the hospital with the shortness of breath and was diagnosed to have pulmonary emboli. Patient had EKO procedure yesterday and received TPA. The EKO machine and the catheters were removed this morning. Patient is doing well. She did have brief episodes of atrial fibrillation which are self terminating. Overall, patient's critical status stable. Lungs are clear. Heart is regular. No JVD. We'll continue current medical therapy. Echo Cardigan showed normal LV function with evidence of right ventricular strain. She is also initiated on Eliquis 10 mg by mouth twice a day. Her blood pressure is running about 112/70. Heart rate is about 70-80 Objective - Vital Signs Vital signs: Vital Signs Temp 97.5 F L 02/26/22 08:00 Pulse 70 02/26/22 11:00 Resp 27 H 02/26/22 11:00 BP 111/63 02/26/22 11:00 Pulse Ox 96 02/26/22 11:00 Intake & Output 02/25/22 02/26/22 02/26/22 18:59 06:59 18:59 Intake Total 390 1155 232.5 Output Total 150 500 0 Balance 240 655 232.5 Weight 133.81 kg 138 kg Intake: IV 40 1155 232.5 .9 kvo 40 110 50 Alteplase 10 mg In Sodium 220 20 Chloride 0.9% 90 ml @ 1 MG/HR 10 mls/hr IV .Q10H ONE Rx#:[id number] Heparin Sod,Pork in 0.45% 55 22.5 NaCl 25,000 unit In 0.45 % NaCl 1 250ml.bag @ 17. 188 UNITS/KG/HR 22.999 mls/hr IV .[id number] ANNA Rx #:[id number] Sodium Chloride 0.9% 1, 770 140 000 ml @ 35 mls/hr IV . Q24H ANNA Rx#:[id number] Intake, IV Titration 350 Amount Sodium Chloride 0.9% 1, 175 000 ml @ 35 mls/hr IV . Q24H ANNA Rx#:[id number] Sodium Chloride 0.9% 1, 175 000 ml @ 35 mls/hr IV . Q24H ANNA Rx#:[id number] Output: Urine 150 500 0 Other: # Voids 1 0 - Exam GENERAL EXAM: Patient is alert and oriented and doesn't appear to be in any acute distress HEENT: Normocephalic. Normal reaction of pupils, equal size, normal range of extraocular motion. No erythema or exudates in the throat. NECK: No masses, no nuchal rigidity. CHEST: No chest wall deformity. LUNGS: Equal air entry with no crackles or wheeze. HEART: S1 and S2 normal with no audible mumurs or gallops. Regular rhythm, femorals equal on both sides.. ABDOMEN: No hepatosplenomegaly, normal bowel sounds, no guarding or rigidity. SKIN: No rashes CENTRAL NERVOUS SYSTEM: No focal deficits. EXTREMITIES: No cyanosis, clubbing or edema. - Labs CBC & Chem 7: 02/26/22 09:01 02/26/22 09:01 Labs: Abnormal Lab Results - Last 24 Hours (Table) 02/25/22 02/25/22 02/25/22 Range/Units 13:03 13:21 13:24 WBC (3.8-10.6) k/uL MCV (80.0-100.0) fL Neutrophils # (1.3-7.7) k/uL APTT >200.0 H* (22.0-30.0) sec BUN (7-17) mg/dL POC Glucose (mg/dL) 159 H (75-99) mg/dL Plasma Lactic Acid Gabino 3.7 H* (0.7-2.0) mmol/L 02/25/22 02/25/22 02/26/22 Range/Units 15:04 21:52 09:01 WBC 13.3 H (3.8-10.6) k/uL MCV 102.0 H (80.0-100.0) fL Neutrophils # 10.4 H (1.3-7.7) k/uL APTT 21.9 L (22.0-30.0) sec BUN (7-17) mg/dL POC Glucose (mg/dL) 165 H (75-99) mg/dL Plasma Lactic Acid Gabino (0.7-2.0) mmol/L 02/26/22 Range/Units 09:01 WBC (3.8-10.6) k/uL MCV (80.0-100.0) fL Neutrophils # (1.3-7.7) k/uL APTT (22.0-30.0) sec BUN 22 H (7-17) mg/dL POC Glucose (mg/dL) (75-99) mg/dL Plasma Lactic Acid Gabino (0.7-2.0) mmol/L Assessment and Plan (1) Pulmonary embolism Current Visit: Yes Status: Acute Code(s): I26.99 - OTHER PULMONARY EMBOLISM WITHOUT ACUTE COR PULMONALE SNOMED Code(s): 58661462 (2) Hypertension Current Visit: Yes Status: Acute Code(s): I10 - ESSENTIAL (PRIMARY) HYPERTENSION SNOMED Code(s): 40051209 (3) Obesity Current Visit: Yes Status: Acute Code(s): E66.9 - OBESITY, UNSPECIFIED SNOMED Code(s): 078300971 Plan: Continue current medical therapy. Transfer to telemetry unit. Increase activity as tolerated
[2022-02-26] MEDS: METOPROLOL TARTRATE 12.5 MG TAB PO SCH ×2 (12:33→20:10)
--- NOTE | 2022-02-26 14:31 | P.PN ---
Subjective Progress Note Date: 02/26/22 This is a 72-year-old female patient was being seen in follow-up in the intensive care unit. The patient is being seen in follow-up on 02/26/2022. The patient is post intra-arterial thrombolytic therapy for pulmonary embolism. The patient is status post EKOS and the patient completed TPA treatment and the patient remains on IV heparin. The plan is to switch this patient to oral anticoagulation today. The patient is hemodynamically stable. The patient is not having any chest pain. No significant shortness of breath. The patient does have some edema lower extremities bilaterally and a Doppler of the lower extremity was negative for DVT. The patient otherwise has no respiratory distress. The patient will be taken off the IV heparin and patient is going to be started on Eliquis 10 mg by mouth twice a day. Cardiac rhythm is sinus. No significant tachycardia. Echo showed evidence of RV strain with right ventricular systolic pressure of around 35 mmHg. Left a ejection fraction was w ithin normal with an EF of around 55%. Note that the patient had a run of atrial fibrillation that lasted for about 30 seconds rate of 1:30 and the patient's current cardiac rhythm is back to sinus. She is currently on 8 L of oxygen by nasal cannula. Noted the patient was on a nonrebreather and later on she was weaned down to 10 L and currently she is on 8 L. Objective - Vital Signs Vital signs: Vital Signs Temp 97.5 F L 02/26/22 08:00 Pulse 78 02/26/22 13:00 Resp 23 02/26/22 13:00 BP 128/67 02/26/22 13:00 Pulse Ox 94 L 02/26/22 13:00 Intake & Output 02/25/22 02/26/22 02/26/22 18:59 06:59 18:59 Intake Total 390 1155 1052.5 Output Total 150 500 900 Balance 240 655 152.5 Weight 133.81 kg 138 kg Intake: IV 40 1155 252.5 .9 kvo 40 110 70 Alteplase 10 mg In Sodium 220 20 Chloride 0.9% 90 ml @ 1 MG/HR 10 mls/hr IV .Q10H ONE Rx#:[id number] Heparin Sod,Pork in 0.45% 55 22.5 NaCl 25,000 unit In 0.45 % NaCl 1 250ml.bag @ 17. 188 UNITS/KG/HR 22.999 mls/hr IV .[id number] NANA Rx #:[id number] Sodium Chloride 0.9% 1, 770 140 000 ml @ 35 mls/hr IV . Q24H ANNA Rx#:[id number] Intake, IV Titration 350 Amount Sodium Chloride 0.9% 1, 175 000 ml @ 35 mls/hr IV . Q24H ANNA Rx#:[id number] Sodium Chloride 0.9% 1, 175 000 ml @ 35 mls/hr IV . Q24H ANNA Rx#:[id number] Oral 800 Output: Urine 150 500 900 Other: # Voids 1 0 - Exam GENERAL EXAM: Alert, very pleasant, 72-year-old white female, on the 100% nonrebreather mask, seen in the cathlab, comfortable in no apparent distress. The patient is currently on 8 L of O2 by nasal cannula HEAD: Normocephalic/atraumatic. EYES: Normal reaction of pupils, equal size. Conjunctiva pink, sclera white. NOSE: Clear with pink turbinates. THROAT: No erythema or exudates. NECK: No masses, no JVD, no thyroid enlargement, no adenopathy. CHEST: No chest wall deformity. Symmetrical expansion. LUNGS: Equal air entry with no crackles, wheeze, rhonchi or dullness. CVS: Regular rate and rhythm, normal S1 and S2, no gallops, no murmurs, no rubs ABDOMEN: Soft, nontender. No hepatosplenomegaly, normal bowel sounds, no guarding or rigidity. Right groin catheters in place EXTREMITIES: No clubbing, no edema, no cyanosis, 2+ pulses and upper and lower extremities. MUSCULOSKELETAL: Muscle strength and tone normal. SPINE: No scoliosis or deformity SKIN: No rashes CENTRAL NERVOUS SYSTEM: Alert and oriented -3. No focal deficits, tone is normal in all 4 extremities. PSYCHIATRIC: Alert and oriented -3. Appropriate affect. Intact judgment and insight. - Labs CBC & Chem 7: 02/26/22 09:01 02/26/22 09:01 Labs: Abnormal Lab Results - Last 24 Hours (Table) 02/25/22 02/25/22 02/25/22 Range/Units 13:21 15:04 21:52 WBC (3.8-10.6) k/uL MCV (80.0-100.0) fL Neutrophils # (1.3-7.7) k/uL APTT >200.0 H* 21.9 L (22.0-30.0) sec BUN (7-17) mg/dL POC Glucose (mg/dL) 165 H (75-99) mg/dL 02/26/22 02/26/22 Range/Units 09:01 09:01 WBC 13.3 H (3.8-10.6) k/uL MCV 102.0 H (80.0-100.0) fL Neutrophils # 10.4 H (1.3-7.7) k/uL APTT (22.0-30.0) sec BUN 22 H (7-17) mg/dL POC Glucose (mg/dL) (75-99) mg/dL Assessment and Plan Plan: #1. Acute hypoxic respiratory failure, shortness of breath related to submassive bilateral pulmonary emboli with CT evidence suggesting right ventricular strain, status post EKOS catheter placement and alteplase infusion on 02/25/2022 the patient completed EKOS and the patient is currently on IV hepa rin and the patient is hemodynamically stable on 8 L of O2 by nasal cannula and the patient will be switched to oral anticoagulation with Eliquis. #2. Elevated troponins related to the above, secondary to pulmonary embolism #3. Lower extremity edema, no evidence of DVT on lower extremity Dopplers #4. Acute pulmonary hypertension with a right-sided pressure estimated to be around 75 mmHg secondary to above #5. Paroxysmal atrial fibrillation and the patient had a 30 sec run of atrial fibrillation, current rhythm is sinus #6. Hypertension #7. Hyperlipidemia #8. Nonsmoker #9. Morbid obesity with BMI of 49.1 kg/m #10 Osteoarthritis #11 recent sinus infection Plan This continued IV heparin Start the patient on Eliquis per protocol regarding pulmonary embolism Wean down the FiO2 as tolerated to maintain saturation above 90% Using incentive spirometer Transfer this patient out of the intensive care unit and later stage.
--- NOTE | 2022-02-26 14:39 | P.PN ---
Subjective Progress Note Date: 02/26/22 This is a 72-year-old female admitted with submassive bilateral pulmonary emboli, CT and echo suggestive of right ventricular strain ,status post EKOS and TPA on 02/25/2022 and multiple other medical issues. Tolerated procedure well. Chest x-ray reporting infusion catheter in place, probable basilar atelectasis. EKOS Catheter pulled this morning. Approximately 30 seconds of A. fib during discontinuation of catheter, spontaneously resolved with telemetry currently sinus rhythm. Eliquis initiated. Maintaining O2 sats in the 90s on 10 L high flow nasal cannula. Afebrile, WBC decreased, 13.3. Creatinine improved, 0.87. Denies chest pain, palpitations. Objective - Vital Signs Vital signs: Vital Signs Temp 97.5 F L 02/26/22 08:00 Pulse 78 02/26/22 13:00 Resp 23 02/26/22 13:00 BP 128/67 02/26/22 13:00 Pulse Ox 94 L 02/26/22 13:00 Intake & Output 02/25/22 02/26/22 02/26/22 18:59 06:59 18:59 Intake Total 390 1155 1052.5 Output Total 150 500 900 Balance 240 655 152.5 Weight 133.81 kg 138 kg Intake: IV 40 1155 252.5 .9 kvo 40 110 70 Alteplase 10 mg In Sodium 220 20 Chloride 0.9% 90 ml @ 1 MG/HR 10 mls/hr IV .Q10H [facility] Rx#:[id number] Heparin Sod,Pork in 0.45% 55 22.5 NaCl 25,000 unit In 0.45 % NaCl 1 250ml.bag @ 17. 188 UNITS/KG/HR 22.999 mls/hr IV .[id number] [facility] Rx #:[id number] Sodium Chloride 0.9% 1, 770 140 000 ml @ 35 mls/hr IV . Q24H [facility] Rx#:[id number] Intake, IV Titration 350 Amount Sodium Chloride 0.9% 1, 175 000 ml @ 35 mls/hr IV . Q24H [facility] Rx#:[id number] Sodium Chloride 0.9% 1, 175 000 ml @ 35 mls/hr IV . Q24H [facility] Rx#:[id number] Oral 800 Output: Urine 150 500 900 Other: # Voids 1 0 - Exam PHYSICAL EXAM: VITAL SIGNS: As above GENERAL: Lying in bed, no acute distress HEENT: Conjunctivae normal. eyes normal. NECK: No JVD. No thyroid enlargement. No LNs CARDIOVASCULAR: S1, S2 regular. No murmur RESPIRATION: Breath sounds diminished in the bases. No rhonchi or crackles. ABDOMEN: Soft, nontender . No guarding. no masses palpable. Positive Bowel sounds. LEGS: Positive edema, Doppler pulses present. PSYCHIATRY: Alert and oriented X3, mood and affect normal. NERVOUS SYSTEM: Cranial N 2-12 grossly normal.No focal deficits. Strength and sensation grossly intact. Skin: Warm and dry, no rash - Labs CBC & Chem 7: 02/26/22 09:01 02/26/22 09:01 Labs: Abnormal Lab Results - Last 24 Hours (Table) 02/25/22 02/25/22 02/25/22 Range/Units 13:21 15:04 21:52 WBC (3.8-10.6) k/uL MCV (80.0-100.0) fL Neutrophils # (1.3-7.7) k/uL APTT >200.0 H* 21.9 L (22.0-30.0) sec BUN (7-17) mg/dL POC Glucose (mg/dL) 165 H (75-99) mg/dL 02/26/22 02/26/22 Range/Units 09:01 09:01 WBC 13.3 H (3.8-10.6) k/uL MCV 102.0 H (80.0-100.0) fL Neutrophils # 10.4 H (1.3-7.7) k/uL APTT (22.0-30.0) sec BUN 22 H (7-17) mg/dL POC Glucose (mg/dL) (75-99) mg/dL Assessment and Plan Assessment: Extensive bilateral pulmonary emboli with both CT and echo suggesting right ventricular strain, status post EKOS and TPA on 02/25/2022. Acute hypoxic respiratory failure secondary to the above Elevated troponin secondary to the above Bilateral lower extremities ruled out for DVT as reported per Doppler Acute renal failure, improved Hypertension Hyperlipidemia Recent sinus infection Former nicotine dependence Morbid obesity, BMI 50.6 Plan: Continue on current medication regime ,monitoring and symptomatic treatment. Anticoagulated on Eliquis as per cardiology. Telemetry monitoring. Possible transfer out of ICU pending cardiology/director of assessing clearance. The impression and plan of care has been dictated as directed. : I performed a history and examination of this patient, discussed the same with the dictator. I agree with the dictator's note ,documented as a scribe. Any additional findings or plans will be noted.
[2022-02-26] MEDS ORDERED: DILTIAZEM DRIP BOLUS FROM BAG 1 MG SOLN IV STA (17:23)
[2022-02-26] MEDS: DILTIAZEM 125 MG in SODIUM CHLORIDE 0.9% 100 ML IV SCH (17:35)
[2022-02-26] MEDS: ATORVASTATIN 80 MG TAB PO SCH (20:10)
[2022-02-26] MEDS: ASPIRIN 81 MG PO SCH (20:10)
[2022-02-26] MEDS: HEPARIN SOD,PORK IN 0.45% NACL 25,000 UNIT in 0.45% NACL 1 250ML.BAG IV SCH (20:34)
[2022-02-27] MEDS: DILTIAZEM 125 MG in SODIUM CHLORIDE 0.9% 100 ML IV SCH (01:10)
[2022-02-27] MEDS: LEVOTHYROXINE 75 MCG TAB PO SCH (05:31)
[2022-02-27] MEDS: APIXABAN 5 MG TAB PO SCH ×2 (08:04→20:10)
[2022-02-27] MEDS: METOPROLOL TARTRATE 12.5 MG TAB PO SCH ×2 (08:04→20:09)
--- NOTE | 2022-02-27 08:17 | XR ---
EXAMINATION TYPE: XR chest 1V portable DATE OF EXAM: 02/27/2022 COMPARISON: Chest x-ray 02/26/2022 HISTORY: Abnormal chest x-ray, pulmonary embolus TECHNIQUE: Single frontal view of the chest is obtained. FINDINGS: This been interval removal of the infusion catheters within the pulmonary arteries. No damir dent pneumothorax or pleural effusion. Patchy perihilar density is noted. Cardiac mediastinal silhoue tte shows a similar appearance. Right hemidiaphragm remains elevated. There are overlying leads. Zuly ent is rotated. Aorta is dense. IMPRESSION: Expiratory exam, probable atelectasis, difficult to exclude pneumonia, follow-up.
[2022-02-27 08:46] LABS: Basophils # (A) 0.1 k/uL (0-0.2); Basophils % (A) 1 %; Eosinophils # (A) 0.3 k/uL (0-0.7); Eosinophils % (A) 3 %; HCT 41.2 % (34.0-46.0); HGB 12.8 gm/dL (11.4-16.0); Hypochromasia Slight; Lymphocytes # (A) 1.6 k/uL (1.0-4.8); Lymphocytes % (A) 14 %; MCH 31.5 pg (25.0-35.0); MCHC 31.1 g/dL (31.0-37.0); MCV 101.2 fL (80.0-100.0); Macrocytosis Slight; Mean Platelet Volume 7.9; Monocytes # (A) 0.7 k/uL (0-1.0); Monocytes % (A) 6 %; Neutrophils # (A) 8.6 k/uL (1.3-7.7); Neutrophils % (A) 76 %; Platelet Count 189 k/uL (150-450); RBC 4.07 m/uL (3.80-5.40); RDW 13.6 % (11.5-15.5); WBC 11.3 k/uL (3.8-10.6)
[2022-02-27 09:07] LABS: Calcium 8.2 mg/dL (8.4-10.2); Potassium 3.5 mmol/L (3.5-5.1)
[2022-02-27] MEDS ORDERED: DEXTROSE 5% IN WATER 100 ML with AMIODARONE 150 MG IV ONE (09:32)
[2022-02-27] MEDS ORDERED: AMIODARONE 360 MG in DEXTROSE 5% IN WATER 200 ML IV ONE ×2 (09:33)
[2022-02-27] MEDS: FUROSEMIDE 10 MG/ML 2 ML VIAL IV SCH ×2 (10:05→20:09)
[2022-02-27 10:18] LABS: T4, Free (Free Thyroxine) 1.42 ng/dL (0.78-2.19)
--- NOTE | 2022-02-27 11:36 | P.PN ---
Subjective Progress Note Date: 02/27/22 This is a 72-year-old female was admitted to the hospital with the shortness of breath and was diagnosed to have pulmonary emboli. Patient had EKO procedure yesterday and received TPA. The EKO machine and the catheters were removed this morning. Patient is doing well. She did have brief episodes of atrial fibrillation which are self terminating. Overall, patient's critical status stable. Lungs are clear. Heart is regular. No JVD. We'll continue current medical therapy. Echo Cardigan showed normal LV function with evidence of right ventricular strain. She is also initiated on Eliquis 10 mg by mouth twice a day. Her blood pressure is running about 112/70. Heart rate is about 70-80. 02/27/2022: This patient is being treated for pulmonary embolism. She developed persistent atrial fibrillation, Yesterday, with moderately rapid ventricular response. Patient has been on IV Cardizem. Heart rate is not well controlled at. I'm going to stop the Cardizem and start her on IV amiodarone. Otherwise patient is doing well. Complaints of mild shortness of breath. Lungs are clear. Heart is irregular. Further examination depend upon clinical course. We'll also obtain thyroid function studies Objective - Vital Signs Vital signs: Vital Signs Temp 98.9 F 02/27/22 04:00 Pulse 115 H 02/27/22 10:30 Resp 8 L 02/27/22 10:30 BP 103/77 02/27/22 10:30 Pulse Ox 94 L 02/27/22 10:30 Intake & Output 02/26/22 02/27/22 02/27/22 18:59 06:59 18:59 Intake Total 1108.083 190 140 Output Total 1500 650 500 Balance -391.917 -460 -360 Weight 139.7 kg Intake: IV 302.5 110 40 .9 kvo 120 110 40 Alteplase 10 mg In Sodium 20 Chloride 0.9% 90 ml @ 1 MG/HR 10 mls/hr IV .Q10H [facility] Rx#:[id number] Heparin Sod,Pork in 0.45% 22.5 NaCl 25,000 unit In 0.45 % NaCl 1 250ml.bag @ 17. 188 UNITS/KG/HR 22.999 mls/hr IV .[id number] [facility] Rx #:[id number] Sodium Chloride 0.9% 1, 140 000 ml @ 35 mls/hr IV . Q24H [facility] Rx#:[id number] Intake, IV Titration 5.583 80 100 Amount Dextrose 5% in Water 100 100 ml @ 618 mls/hr IV .Q10M ONE with Amiodarone 150 mg Rx#:[id number] Diltiazem 125 mg In 5.583 80 Sodium Chloride 0.9% 100 ml @ 5 MG/HR 5 mls/hr IV .Q24H [facility] Rx#:[id number] Oral 800 Output: Urine 1500 650 500 Other: # Voids 0 0 0 - Exam GENERAL EXAM: Patient is alert and oriented and doesn't appear to be in any acute distress HEENT: Normocephalic. Normal reaction of pupils, equal size, normal range of extraocular motion. No erythema or exudates in the throat. NECK: No masses, no nuchal rigidity. CHEST: No chest wall deformity. LUNGS: Equal air entry with no crackles or wheeze. HEART: S1 and S2 normal. Rapid and irregular ABDOMEN: No hepatosplenomegaly, normal bowel sounds, no guarding or rigidity. SKIN: No rashes CENTRAL NERVOUS SYSTEM: No focal deficits. EXTREMITIES: No cyanosis, clubbing or edema. - Labs CBC & Chem 7: 02/27/22 08:28 02/27/22 08:28 Labs: Abnormal Lab Results - Last 24 Hours (Table) 02/27/22 02/27/22 Range/Units 08:28 08:28 WBC 11.3 H (3.8-10.6) k/uL MCV 101.2 H (80.0-100.0) fL Neutrophils # 8.6 H (1.3-7.7) k/uL BUN 18 H (7-17) mg/dL Glucose 121 H (74-99) mg/dL Calcium 8.2 L (8.4-10.2) mg/dL Assessment and Plan (1) Pulmonary embolism Current Visit: Yes Status: Acute Code(s): I26.99 - OTHER PULMONARY EMBOLISM WITHOUT ACUTE COR PULMONALE SNOMED Code(s): 96416614 (2) Hypertension Current Visit: Yes Status: Acute Code(s): I10 - ESSENTIAL (PRIMARY) HYPERTENSION SNOMED Code(s): 76834871 (3) Obesity Current Visit: Yes Status: Acute Code(s): E66.9 - OBESITY, UNSPECIFIED SNOMED Code(s): 964180336 (4) Persistent atrial fibrillation Current Visit: Yes Status: Acute Code(s): I48.19 - OTHER PERSISTENT ATRIAL FIBRILLATION SNOMED Code(s): 289911107 Plan: I will discontinue Cardizem IV. We'll start her on IV amiodarone and continue with beta jorge alberto. Continue anticoagulation. Check thyroid function studies
--- NOTE | 2022-02-27 12:47 | P.PN ---
Subjective Progress Note Date: 02/27/22 This is a 72-year-old female patient was being seen in follow-up in the intensive care unit. The patient is being seen in follow-up on 02/26/2022. The patient is post intra-arterial thrombolytic therapy for pulmonary embolism. The patient is status post EKOS and the patient completed TPA treatment and the patient remains on IV heparin. The plan is to switch this patient to oral anticoagulation today. The patient is hemodynamically stable. The patient is not having any chest pain. No significant shortness of breath. The patient does have some edema lower extremities bilaterally and a Doppler of the lower extremity was negative for DVT. The patient otherwise has no respiratory distress. The patient will be taken off the IV heparin and patient is going to be started on Eliquis 10 mg by mouth twice a day. Cardiac rhythm is sinus. No significant tachycardia. Echo showed evidence of RV strain with right ventricular systolic pressure of around 75 mmHg. Left a ejection fraction was w ithin normal with an EF of around 55%. Note that the patient had a run of atrial fibrillation that lasted for about 30 seconds rate of 1:30 and the patient's current cardiac rhythm is back to sinus. She is currently on 8 L of oxygen by nasal cannula. Noted the patient was on a nonrebreather and later on she was weaned down to 10 L and currently she is on 8 L. On today's evaluation of 02/27/2022, Mariel is on 6 L about 2 by nasal cannula. She is being treated with anticoagulants regarding her pulmonary embolism and the patient is currently post EKOS, and the patient remains on anticoagulation with Eliquis 10 mg by mouth twice a day. At the same time, the patient went into atrial fibrillation with rapid ventricular response late in the afternoon yesterday. The patient was started on Cardizem drip which is up to 15 mg an hour and the patient is also on metoprolol 12.5 mg by mouth twice a day. Cardiology is on the case regarding this ongoing atrial fibrillation. The patient's blood pressure is soft. She is not requiring any pressors pH continues to have extensive edema in lower extremity is bilaterally. She was given IV Lasix yesterday. Doppler of the lower extremity 7 negative. Echocardiac Dejuan shown significant pulmonary hypertension and the PA pressure is 75. The patient also had severe tricuspid regurgitation. Objective - Vital Signs Vital signs: Vital Signs Temp 98.9 F 02/27/22 04:00 Pulse 115 H 02/27/22 10:30 Resp 8 L 02/27/22 10:30 BP 103/77 02/27/22 10:30 Pulse Ox 94 L 02/27/22 10:30 Intake & Output 02/26/22 02/27/22 02/27/22 18:59 06:59 18:59 Intake Total 1108.083 190 140 Output Total 1500 650 500 Balance -391.917 -460 -360 Weight 139.7 kg Intake: IV 302.5 110 40 .9 kvo 120 110 40 Alteplase 10 mg In Sodium 20 Chloride 0.9% 90 ml @ 1 MG/HR 10 mls/hr IV .Q10H [facility] Rx#:[id number] Heparin Sod,Pork in 0.45% 22.5 NaCl 25,000 unit In 0.45 % NaCl 1 250ml.bag @ 17. 188 UNITS/KG/HR 22.999 mls/hr IV .[id number] [facility] Rx #:[id number] Sodium Chloride 0.9% 1, 140 000 ml @ 35 mls/hr IV . Q24H [facility] Rx#:[id number] Intake, IV Titration 5.583 80 100 Amount Dextrose 5% in Water 100 100 ml @ 618 mls/hr IV .Q10M ONE with Amiodarone 150 mg Rx#:[id number] Diltiazem 125 mg In 5.583 80 Sodium Chloride 0.9% 100 ml @ 5 MG/HR 5 mls/hr IV .Q24H [facility] Rx#:[id number] Oral 800 Output: Urine 1500 650 500 Other: # Voids 0 0 0 - Exam GENERAL EXAM: Alert, very pleasant, 72-year-old white female, on the 100% nonrebreather mask, seen in the cathlab, comfortable in no apparent distress. The patient is currently on 8 L of O2 by nasal cannula HEAD: Normocephalic/atraumatic. EYES: Normal reaction of pupils, equal size. Conjunctiva pink, sclera white. NOSE: Clear with pink turbinates. THROAT: No erythema or exudates. NECK: No masses, no JVD, no thyroid enlargement, no adenopathy. CHEST: No chest wall deformity. Symmetrical expansion. LUNGS: Equal air entry with no crackles, wheeze, rhonchi or dullness. CVS: Tachycardic with irregular rhythm consistent with atrial fibrillation, irregular S1-S2, no gallops, no murmurs, no rubs ABDOMEN: Soft, nontender. No hepatosplenomegaly, normal bowel sounds, no guarding or rigidity. Right groin catheters in place EXTREMITIES: No clubbing, no edema, no cyanosis, 2+ pulses and upper and lower extremities. MUSCULOSKELETAL: Muscle strength and tone normal. SPINE: No scoliosis or deformity SKIN: No rashes CENTRAL NERVOUS SYSTEM: Alert and oriented -3. No focal deficits, tone is normal in all 4 extremities. PSYCHIATRIC: Alert and oriented -3. Appropriate affect. Intact judgment and insight. - Labs CBC & Chem 7: 02/27/22 08:28 02/27/22 08:28 Labs: Abnormal Lab Results - Last 24 Hours (Table) 02/27/22 02/27/22 Range/Units 08:28 08:28 WBC 11.3 H (3.8-10.6) k/uL MCV 101.2 H (80.0-100.0) fL Neutrophils # 8.6 H (1.3-7.7) k/uL BUN 18 H (7-17) mg/dL Glucose 121 H (74-99) mg/dL Calcium 8.2 L (8.4-10.2) mg/dL Assessment and Plan Plan: #1. Acute hypoxic respiratory failure, shortness of breath related to submassi ve bilateral pulmonary emboli with CT evidence suggesting right ventricular strain, status post EKOS catheter placement and alteplase infusion on 02/25/2022 the patient completed EKOS and the patient is currently on IV heparin and the patient is hemodynamically stable on 3 L of O2 by nasal cannula and the patient will be switched to oral anticoagulation with Eliquis. #2. Elevated troponins related to the above, secondary to pulmonary embolism #3. Lower extremity edema, no evidence of DVT on lower extremity Dopplers, consider abdominal/pelvic mass contributing to this increased significant lower extremity edema. Consider right-sided heart failure, chronic contributing to this lower extremity edema. #4. Acute pulmonary hypertension with a right-sided pressure estimated to be around 75 mmHg secondary to above #5. Atrial fibrillation with rapid response and the patient is currently on Cardizem and oral beta blockers. The patient continues to be somewhat tachycardic. The patient is in atrial fibrillation with Eliquis. #6. Hypertension #7. Hyperlipidemia #8. Nonsmoker #9. Morbid obesity with BMI of 49.1 kg/m #10 Osteoarthritis #11 recent sinus infection Plan Wean down the FiO2 as tolerated to maintain a saturation above 90% Management of atrial fibrillation per cardiology May start amiodarone drip for better rate control and the patient continues to be on a Cardizem drip and oral metoprolol 12.5 mg by mouth twice a day Continue diuresis gently with Lasix 20 mg IV every 12 hours CAT scan of the abdomen and pelvis Wean down the FiO2 as tolerated to maintain saturation above 90% Keep the patient intensive care unit for today.
--- NOTE | 2022-02-27 13:40 | CDI ---
Documentation Clarification Form Date: 02/28/2022 01:06:00 PM From: Moni Cooley RN, CCDS Admit Date: 02/25/2022 10:09:00 AM Patient Name: Mariel Hidalgo V Visit Number: [id number] Discharge Date: ATTENTION: The Clinical Documentation Specialists (CDI) and [facility] Coding Staff appreciate your assistance in clarifying documentation. Please respond to the clarification below the line at the bottom and electronically sign. The CDI & [facility] Coding staff will review the response and follow-up if needed. Please note: Queries are made part of the Legal Health Record. If you have any questions, please contact the author of this message via ITS. Dr. Rene Sylvester There is documentation of submassive bilateral pulmonary embolism with RV strain documented in the cardiology consult and subsequent progress notes date, location Additional clarification is requested related to the RV strain, right- sided heart failure 02/25 ECHO: EF between 55-60 %. The right ventricle is severely enlarged. Paradodical motion of the right ventricular septum is consistent with right ventricular overload and or elevated right ventricular end-diastolic pressure. RV Systolic dysfunction. There is severe pulmonary hypertension. History/Risk Factors: hyperlipidemia, Hypertension Clinical Indicators: 72-year-old present with worsening shortness of breath hypoxic, lower extremity swelling with CTA showing bilateral PE with RV strain. Positive chest pain. 02/25 Labs: D-Dimer 4.2, Troponin 0.16, proBNP 6630, WBC 16.7, HGB 15.6 Treatment: ICU/Telemetry Monitoring Heparin Drip 02/25-02/25 EKOS catheter 4 MG IV once then IV infusion per orders 02/25 (total 10 hrs) Can you please further clarify submassive pulmonary embolism with RVS strain? [ X ] Acute submassive pulmonary embolism with RV strain and acute cor pulmonale [ ] Acute submassive pulmonary embolism with RV strain without acute cor pulmonale [ ] Other, please specify [ ] Unable to determine (Template Last Revised: January 2021) MTDD
[2022-02-27] MEDS: AMIODARONE 450 MG in DEXTROSE 5% IN WATER 250 ML IV SCH ×2 (17:06)
--- NOTE | 2022-02-27 18:58 | P.PN ---
Subjective Progress Note Date: 02/27/22 This is a 72-year-old female admitted with submassive bilateral pulmonary emboli, CT and echo suggestive of right ventricular strain ,status post EKOS and TPA on 02/25/2022 and multiple other medical issues. Tolerated procedure well. Chest x-ray reporting infusion catheter in place, probable basilar atelectasis. EKOS Catheter pulled this morning. Approximately 30 seconds of A. fib during discontinuation of catheter, spontaneously resolved with telemetry currently sinus rhythm. Eliquis initiated. Maintaining O2 sats in the 90s on 10 L high flow nasal cannula. Afebrile, WBC decreased, 13.3. Creatinine improved, 0.87. Denies chest pain, palpitations. 02/27/2022 maintaining O2 sats in the 90s on 6 L nasal cannula. Chest x-ray pending Developed atrial fibrillation with RVR yesterday afternoon, maintained on Cardizem drip currently at 15 mg per hour in addition to metoprolol. Telemetry atrial fibrillation with heart rates currently in the 140s. Borderline hypotension with current systolic blood pressures in the 90s, mean arterial pressure low 70s. Significant lower extremity edema, Dopplers reported no evidence of DVT, CT of abdomen and pelvis ordered. Objective - Vital Signs Vital signs: Vital Signs Temp 98.9 F 02/27/22 04:00 Pulse 140 H 02/27/22 15:30 Resp 16 02/27/22 16:00 BP 110/76 02/27/22 15:30 Pulse Ox 94 L 02/27/22 15:30 Intake & Output 02/26/22 02/27/22 02/27/22 18:59 06:59 18:59 Intake Total 1108.083 190 200 Output Total 9451 055 1443 Balance -391.917 -460 -1200 Weight 139.7 kg Intake: IV 302.5 110 100 .9 kvo 120 110 100 Alteplase 10 mg In Sodium 20 Chloride 0.9% 90 ml @ 1 MG/HR 10 mls/hr IV .Q10H [facility] Rx#:[id number] Heparin Sod,Pork in 0.45% 22.5 NaCl 25,000 unit In 0.45 % NaCl 1 250ml.bag @ 17. 188 UNITS/KG/HR 22.999 mls/hr IV .[id number] [facility] Rx #:[id number] Sodium Chloride 0.9% 1, 140 000 ml @ 35 mls/hr IV . Q24H [facility] Rx#:[id number] Intake, IV Titration 5.583 80 100 Amount Dextrose 5% in Water 100 100 ml @ 618 mls/hr IV .Q10M [facility] with Amiodarone 150 mg Rx#:[id number] Diltiazem 125 mg In 5.583 80 Sodium Chloride 0.9% 100 ml @ 5 MG/HR 5 mls/hr IV .Q24H [facility] Rx#:[id number] Oral 800 Output: Urine 0246 506 8789 Other: # Voids 0 0 0 - Exam PHYSICAL EXAM: VITAL SIGNS: As above GENERAL: Lying in bed, no acute distress HEENT: Conjunctivae normal. eyes normal. NECK: No JVD. No thyroid enlargement. No LNs CARDIOVASCULAR: S1, S2 irregular. Tachycardic No murmur RESPIRATION: Breath sounds diminished in the bases. No rhonchi or crackles. ABDOMEN: Soft, nontender . No guarding. no masses palpable. Positive Bowel sounds. LEGS: Positive edema, Doppler pulses present. PSYCHIATRY: Alert and oriented X3, mood and affect normal. NERVOUS SYSTEM: Cranial N 2-12 grossly normal.No focal deficits. Strength and sensation grossly intact. Skin: Warm and dry, no rash - Labs CBC & Chem 7: 02/27/22 08:28 02/27/22 08:28 Labs: Abnormal Lab Results - Last 24 Hours (Table) 02/27/22 02/27/22 Range/Units 08:28 08:28 WBC 11.3 H (3.8-10.6) k/uL MCV 101.2 H (80.0-100.0) fL Neutrophils # 8.6 H (1.3-7.7) k/uL BUN 18 H (7-17) mg/dL Glucose 121 H (74-99) mg/dL Calcium 8.2 L (8.4-10.2) mg/dL Assessment and Plan Assessment: Extensive bilateral pulmonary emboli with both CT and echo suggesting right ventricular strain, status post EKOS and TPA on 02/25/2022. Acute hypoxic respiratory failure secondary to the above Elevated troponin secondary to the above Bilateral lower extremities ruled out for DVT as reported per Doppler, CT of abdomen and pelvis pending. Acute renal failure, improved Hypertension Hyperlipidemia Recent sinus infection Former nicotine dependence Severe tricuspid regurgitation Severe pulmonary hypertension Morbid obesity, BMI 50.6 Plan: Continue on current medication regime ,monitoring and symptomatic treatment. CT of abdomen and pelvis pending. uncontrolled atrial fibrillation with RVR -further antiarrhythmic recommendations as per cardiology pending. The impression and plan of care has been dictated as directed. : I performed a history and examination of this patient, discussed the same with the dictator. I agree with the dictator's note ,documented as a scribe. Any additional findings or plans will be noted.
[2022-02-27] MEDS: PANTOPRAZOLE 40 MG/10 ML VIAL IVP SCH (20:09)
[2022-02-27] MEDS: ASPIRIN 81 MG PO SCH (20:09)
[2022-02-27] MEDS: ATORVASTATIN 80 MG TAB PO SCH (20:09)
[2022-02-27] MEDS ORDERED: Potassium Replacement Protocol 1 EACH MISC MISCELLANE PRN (21:23)
[2022-02-27] MEDS: POTASSIUM CHLORIDE ER 20 MEQ TAB.ER PO SCH ×2 (21:27→23:10)
--- NOTE | 2022-02-28 05:49 | CT ---
EXAMINATION TYPE: CT abdomen pelvis w con DATE OF EXAM: 02/28/2022 COMPARISON: None HISTORY: R/O Abdominal Mass CT DLP: 2449 mGycm Automated exposure control for dose reduction was used. CONTRAST: Performed with IV Contrast, patient injected with 100ml mL of Isovue 300. Images obtained from the diaphragm to the floor the pelvis with IV contrast. Images show no intravascular contrast. It is not clear why there is no contrast visible in the vascul ar system. There is some patchy atelectasis at the lung bases. Heart is enlarged. There is no pericardial effusi on. There are clips from cholecystectomy. Liver spleen and stomach pancreas appear intact. The bile ducts are nondilated. There is no adrenal mass. There is no hydronephrosis. Ureters are not dilated. There is renal sinus l ipomatosis. There is no retroperitoneal adenopathy. The bladder distends smoothly. There is right hip prosthesis. No pelvic mass seen. No inguinal hernia. There is no free fluid in the pelvis. There are sigmoid multiple diverticula. No sign of diverticulitis. There is no sign of thickened appe ndix. No evidence of free air. No bowel obstruction. The lumbar vertebrae are fairly normal alignment. There is multilevel vacuum disc. There is no lumbar compression fracture. The bony pelvis is intact. There is L3-4 moderately severe bony spinal stenosi s. Sacroiliac joints are intact. There is 2 cm fat-containing umbilical hernia. IMPRESSION: Patchy atelectasis at the lung bases. Cardiomegaly. No contrast seen. Colonic diverticulosis without diverticulitis. No evidence of renal obstruction. L3-4 moderately severe spinal stenosis.
[2022-02-28] MEDS: LEVOTHYROXINE 75 MCG TAB PO SCH (05:57)
[2022-02-28] MEDS: AMIODARONE 450 MG in DEXTROSE 5% IN WATER 250 ML IV SCH ×2 (06:14)
[2022-02-28 07:49] LABS: Basophils # (A) 0.1 k/uL (0-0.2); Basophils % (A) 1 %; Eosinophils # (A) 0.2 k/uL (0-0.7); Eosinophils % (A) 2 %; HCT 44.4 % (34.0-46.0); HGB 14.2 gm/dL (11.4-16.0); Hypochromasia Slight; Lymphocytes # (A) 1.5 k/uL (1.0-4.8); Lymphocytes % (A) 14 %; MCH 31.9 pg (25.0-35.0); MCHC 31.9 g/dL (31.0-37.0); MCV 100.2 fL (80.0-100.0); Macrocytosis Slight; Mean Platelet Volume 7.9; Monocytes # (A) 0.5 k/uL (0-1.0); Monocytes % (A) 4 %; Neutrophils # (A) 8.8 k/uL (1.3-7.7); Neutrophils % (A) 79 %; Platelet Count 230 k/uL (150-450); RBC 4.43 m/uL (3.80-5.40); RDW 14.1 % (11.5-15.5); WBC 11.2 k/uL (3.8-10.6)
[2022-02-28 08:05] LABS: Calcium 8.7 mg/dL (8.4-10.2); Potassium 3.5 mmol/L (3.5-5.1)
[2022-02-28] MEDS: APIXABAN 5 MG TAB PO SCH ×2 (09:04→21:03)
[2022-02-28] MEDS: METOPROLOL TARTRATE 12.5 MG TAB PO SCH (09:04)
[2022-02-28] MEDS: FUROSEMIDE 10 MG/ML 2 ML VIAL IV SCH ×2 (09:05→21:03)
[2022-02-28] MEDS: PANTOPRAZOLE 40 MG/10 ML VIAL IVP SCH (09:05)
[2022-02-28] MEDS ORDERED: DEXTROSE 5% IN WATER 100 ML with AMIODARONE 150 MG IV ONE (09:13)
--- NOTE | 2022-02-28 11:48 | P.PN ---
Subjective Progress Note Date: 02/28/22 This is a 72-year-old female patient was being seen in follow-up in the intensive care unit. The patient is being seen in follow-up on 02/26/2022. The patient is post intra-arterial thrombolytic therapy for pulmonary embolism. The patient is status post EKOS and the patient completed TPA treatment and the patient remains on IV heparin. The plan is to switch this patient to oral anticoagulation today. The patient is hemodynamically stable. The patient is not having any chest pain. No significant shortness of breath. The patient does have some edema lower extremities bilaterally and a Doppler of the lower extremity was negative for DVT. The patient otherwise has no respiratory distress. The patient will be taken off the IV heparin and patient is going to be started on Eliquis 10 mg by mouth twice a day. Cardiac rhythm is sinus. No significant tachycardia. Echo showed evidence of RV strain with right ventricular systolic pressure of around 75 mmHg. Left a ejection fraction was w ithin normal with an EF of around 55%. Note that the patient had a run of atrial fibrillation that lasted for about 30 seconds rate of 1:30 and the patient's current cardiac rhythm is back to sinus. She is currently on 8 L of oxygen by nasal cannula. Noted the patient was on a nonrebreather and later on she was weaned down to 10 L and currently she is on 8 L. On today's evaluation of 02/27/2022, Mariel is on 6 L about 2 by nasal cannula. She is being treated with anticoagulants regarding her pulmonary embolism and the patient is currently post EKOS, and the patient remains on anticoagulation with Eliquis 10 mg by mouth twice a day. At the same time, the patient went into atrial fibrillation with rapid ventricular response late in the afternoon yesterday. The patient was started on Cardizem drip which is up to 15 mg an hour and the patient is also on metoprolol 12.5 mg by mouth twice a day. Cardiology is on the case regarding this ongoing atrial fibrillation. The patient's blood pressure is soft. She is not requiring any pressors pH continues to have extensive edema in lower extremity is bilaterally. She was given IV Lasix yesterday. Doppler of the lower extremity 7 negative. Echocardiac Dejuan shown significant pulmonary hypertension and the PA pressure is 75. The patient also had severe tricuspid regurgitation. 02/28/2022, the patient remains in intensive care unit. We noticed that the IV line in the left upper extremity is infiltrated and that is why probably the patient wasn't having adequate control at atrial fibrillation. This morning, the patient continues to be in A. fib with RVR. Heart rate is around 120. The patient is on amiodarone at 0.5 mg per minute and the patient is off Cardizem for now. The patient is also receiving metoprolol 12.5 mg twice a day. Noted the patient's blood pressure is rather soft at this point in time. At the same time, the patient is being diuresed with IV Lasix. The patient is sitting very 20 mg IV every 12 hours and the patient is a negative fluid balance of around 2.6 L over the past 24 hours and she is having improvement in lower oximetry swelling. The patient has no chest pain. The patient is currently on oxygen and she is on 3 L by nasal cannula. She remains on antibiotic ventilation with Eliquis. CAT scan of the abdomen and pelvis was done and showed no evidence of any intra-abdominal masses. There was diverticulosis without diverticulitis and there was lumbar spinal stenosis and degenerative arthritis. Objective - Vital Signs Vital signs: Vital Signs Temp 98.5 F 02/28/22 04:00 Pulse 110 H 02/28/22 11:00 Resp 20 02/28/22 11:00 BP 111/69 02/28/22 11:00 Pulse Ox 94 L 02/28/22 11:00 Intake & Output 02/27/22 02/28/22 02/28/22 18:59 06:59 18:59 Intake Total 700 338.893 50 Output Total 1900 1775 1100 Balance -1200 -1436.107 -1050 Weight 141 kg Intake: IV 120 120 50 .9 kvo 120 120 50 Intake, IV Titration 100 218.893 Amount Amiodarone 450 mg In 218.893 Dextrose 5% in Water 250 ml @ 0.5 MG/MIN 16.667 mls/hr IV .Q15H [facility] Rx#: [id number] Dextrose 5% in Water 100 100 ml @ 618 mls/hr IV .Q10M ONE with Amiodarone 150 mg Rx#:[id number] Oral 480 Output: Urine 1900 1775 1100 Other: # Voids 1 1 1 # Bowel Movements 1 - Exam GENERAL EXAM: Alert, very pleasant, 72-year-old white female, on the 100% nonrebreather mask, seen in the cathlab, comfortable in no apparent distress. The patient is currently on 3 L of O2 by nasal cannula HEAD: Normocephalic/atraumatic. EYES: Normal reaction of pupils, equal size. Conjunctiva pink, sclera white. NOSE: Clear with pink turbinates. THROAT: No erythema or exudates. NECK: No masses, no JVD, no thyroid enlargement, no adenopathy. CHEST: No chest wall deformity. Symmetrical expansion. LUNGS: Equal air entry with no crackles, wheeze, rhonchi or dullness. CVS: Tachycardic with irregular rhythm consistent with atrial fibrillation, irregular S1-S2, no gallops, no murmurs, no rubs ABDOMEN: Soft, nontender. No hepatosplenomegaly, normal bowel sounds, no guarding or rigidity. Right groin catheters in place EXTREMITIES: No clubbing, there is significant bilateral lower extremity edema, no cyanosis, 2+ pulses and upper and lower extremities. MUSCULOSKELETAL: Muscle strength and tone normal. SPINE: No scoliosis or deformity SKIN: No rashes CENTRAL NERVOUS SYSTEM: Alert and oriented -3. No focal deficits, tone is normal in all 4 extremities. PSYCHIATRIC: Alert and oriented -3. Appropriate affect. Intact judgment and insight. - Labs CBC & Chem 7: 02/28/22 07:19 02/28/22 07:19 Labs: Abnormal Lab Results - Last 24 Hours (Table) 02/27/22 02/28/22 02/28/22 Range/Units 20:44 07:19 07:19 WBC 11.2 H (3.8-10.6) k/uL MCV 100.2 H (80.0-100.0) fL Neutrophils # 8.8 H (1.3-7.7) k/uL Potassium 3.3 L (3.5-5.1) mmol/L Glucose 131 H (74-99) mg/dL Assessment and Plan Plan: #1. Acute hypoxic respiratory failure, shortness of breath related to submassive bilateral pulmonary emboli with CT evidence suggesting right ve ntricular strain, status post EKOS catheter placement and alteplase infusion on 02/25/2022 the patient completed EKOS and the patient is currently Eliquis and the patient is hemodynamically stable on 3 L of O2 by nasal cannula #2. Elevated troponins related to the above, secondary to pulmonary embolism #3. Lower extremity edema, no evidence of DVT on lower extremity Dopplers, Consider right-sided heart failure, chronic contributing to this lower extremity edema. The CAT scan of the abdomen was negative for any acute intra-abdominal abnormalities. The patient is improving with IV Lasix and she is in a negative fluid balance. #4. Acute pulmonary hypertension with a right-sided pressure estimated to be around 75 mmHg secondary to above #5. Atrial fibrillation with rapid response and the patient is currently off Cardizem and oral beta blockers. The patient continues to be somewhat tachycardic. The patient is currently on amiodarone drip. It's likely that the patient was not getting the effect of the medication as the patient's IV line was infiltrating. Another IV line was established. The patient is in atrial fibrillation with Eliquis. #6. Hypertension #7. Hyperlipidemia #8. Nonsmoker #9. Morbid obesity with BMI of 49.1 kg/m #10 Osteoarthritis #11 recent sinus infection Plan Continue amiodarone drip Continue oral metoprolol Gradually increasing her metoprolol dose based on patient's blood pressure control and heart rate Continue IV Lasix 20 mg every 12 hours Monitor fluid balance CAT scan of the abdomen was negative for any pelvic masses Oxidation is stable at 3 L Cardiology to manage atrial fibrillation Wean down the FiO2 as tolerated to maintain saturation above 90% Keep the patient intensive care unit for today.
--- NOTE | 2022-02-28 12:00 | P.PN ---
Subjective Progress Note Date: 02/28/22 This is a 72-year-old female was admitted to the hospital with the shortness of breath and was diagnosed to have pulmonary emboli. Patient had EKO procedure yesterday and received TPA. The EKO machine and the catheters were removed this morning. Patient is doing well. She did have brief episodes of atrial fibrillation which are self terminating. Overall, patient's critical status stable. Lungs are clear. Heart is regular. No JVD. We'll continue current medical therapy. Echo Cardigan showed normal LV function with evidence of right ventricular strain. She is also initiated on Eliquis 10 mg by mouth twice a day. Her blood pressure is running about 112/70. Heart rate is about 70-80. 02/27/2022: This patient is being treated for pulmonary embolism. She developed persistent atrial fibrillation, Yesterday, with moderately rapid ventricular response. Patient has been on IV Cardizem. Heart rate is not well controlled at. I'm going to stop the Cardizem and start her on IV amiodarone. Otherwise patient is doing well. Complaints of mild shortness of breath. Lungs are clear. Heart is irregular. Further examination depend upon clinical course. We'll also obtain thyroid function studies. 02/28/2022: This patient is admitted to the hospital with shortness of breath and documented pulmonary emboli. Patient had an EKMO and thrombolytic therapy. Patient developed persistent atrial fibrillation. She was initiated on IV amiodarone. It appears that there is some mild functional IV site. She may not have gotten the medication. IV site is changed and she is going to just additional bolus of amiodarone. I'm also going to increase the dose of the beta jorge alberto as tolerated. He with heart rate is not controlled. May consider adding small dose of digoxin. Patient is otherwise feeling okay. No complaints of any chest pain today. Further recommendations depend upon the clinical course Objective - Vital Signs Vital signs: Vital Signs Temp 98.5 F 02/28/22 04:00 Pulse 110 H 02/28/22 11:00 Resp 20 02/28/22 11:00 BP 111/69 02/28/22 11:00 Pulse Ox 94 L 02/28/22 11:00 Intake & Output 02/27/22 02/28/22 02/28/22 18:59 06:59 18:59 Intake Total 700 338.893 50 Output Total 1900 1775 1100 Balance -1200 -1436.107 -1050 Weight 141 kg Intake: IV 120 120 50 .9 kvo 120 120 50 Intake, IV Titration 100 218.893 Amount Amiodarone 450 mg In 218.893 Dextrose 5% in Water 250 ml @ 0.5 MG/MIN 16.667 mls/hr IV .Q15H [facility] Rx#: [id number] Dextrose 5% in Water 100 100 ml @ 618 mls/hr IV .Q10M ONE with Amiodarone 150 mg Rx#:[id number] Oral 480 Output: Urine 1900 1775 1100 Other: # Voids 1 1 1 # Bowel Movements 1 - Exam GENERAL EXAM: Patient is alert and oriented and doesn't appear to be in any acute distress HEENT: Normocephalic. Normal reaction of pupils, equal size, normal range of extraocular motion. No erythema or exudates in the throat. NECK: No masses, no nuchal rigidity. CHEST: No chest wall deformity. LUNGS: Equal air entry with no crackles or wheeze. HEART: S1 and S2 normal. Rapid and irregular ABDOMEN: No hepatosplenomegaly, normal bowel sounds, no guarding or rigidity. SKIN: No rashes CENTRAL NERVOUS SYSTEM: No focal deficits. EXTREMITIES: No cyanosis, clubbing or edema. - Labs CBC & Chem 7: 02/28/22 07:19 02/28/22 07:19 Labs: Abnormal Lab Results - Last 24 Hours (Table) 02/27/22 02/28/22 02/28/22 Range/Units 20:44 07:19 07:19 WBC 11.2 H (3.8-10.6) k/uL MCV 100.2 H (80.0-100.0) fL Neutrophils # 8.8 H (1.3-7.7) k/uL Potassium 3.3 L (3.5-5.1) mmol/L Glucose 131 H (74-99) mg/dL Assessment and Plan (1) Pulmonary embolism Current Visit: Yes Status: Acute Code(s): I26.99 - OTHER PULMONARY EMBOLISM WITHOUT ACUTE COR PULMONALE SNOMED Code(s): 31112457 (2) Hypertension Current Visit: Yes Status: Acute Code(s): I10 - ESSENTIAL (PRIMARY) HYPE RTENSION SNOMED Code(s): 19626674 (3) Obesity Current Visit: Yes Status: Acute Code(s): E66.9 - OBESITY, UNSPECIFIED SNOMED Code(s): 399822081 (4) Persistent atrial fibrillation Current Visit: Yes Status: Acute Code(s): I48.19 - OTHER PERSISTENT ATRIAL FIBRILLATION SNOMED Code(s): 223290780 Plan: Additional bolus of amiodarone and continue the drip. Increase the dose of the beta jorge alberto. Continue the rest of the management. Thyroid function test are normal
--- NOTE | 2022-02-28 16:00 | P.PN ---
Subjective Progress Note Date: 02/28/22 This is a 72-year-old female admitted with submassive bilateral pulmonary emboli, CT and echo suggestive of right ventricular strain ,status post EKOS and TPA on 02/25/2022 and multiple other medical issues. Tolerated procedure well. Chest x-ray reporting infusion catheter in place, probable basilar atelectasis. EKOS Catheter pulled this morning. Approximately 30 seconds of A. fib during discontinuation of catheter, spontaneously resolved with telemetry currently sinus rhythm. Eliquis initiated. Maintaining O2 sats in the 90s on 10 L high flow nasal cannula. Afebrile, WBC decreased, 13.3. Creatinine improved, 0.87. Denies chest pain, palpitations. 02/27/2022 maintaining O2 sats in the 90s on 6 L nasal cannula. Chest x-ray pending Developed atrial fibrillation with RVR yesterday afternoon, maintained on Cardizem drip currently at 15 mg per hour in addition to metoprolol. Telemetry atrial fibrillation with heart rates currently in the 140s. Borderline hypotension with current systolic blood pressures in the 90s, mean arterial pressure low 70s. Significant lower extremity edema, Dopplers reported no evidence of DVT, CT of abdomen and pelvis ordered. 02/28/2022 remains in A. fib with RVR, heart rates up into the 140s, on amiodarone drip. Diuresing well on Lasix IV push with 24-hour I&O reflecting a negative fluid balance. Denies chest pain, reports increased shortness of dante ath after eating. Completed CT of the abdomen and pelvis this morning, reporting patchy atelectasis at the lung bases, cardiomegaly, colonic diverticulosis without diverticulitis, no evidence of renal obstruction, no pelvic masses, moderately severe spinal stenosis at L3-4. Objective - Vital Signs Vital signs: Vital Signs Temp 98.4 F 02/28/22 12:00 Pulse 125 H 02/28/22 15:00 Resp 36 H 02/28/22 15:00 BP 87/71 02/28/22 15:00 Pulse Ox 93 L 02/28/22 15:00 Intake & Output 02/27/22 02/28/22 02/28/22 18:59 06:59 18:59 Intake Total 700 338.893 80 Output Total 1900 1775 1400 Balance -1200 -1436.107 -1320 Weight 141 kg Intake: IV 120 120 80 .9 kvo 120 120 80 Intake, IV Titration 100 218.893 Amount Amiodarone 450 mg In 218.893 Dextrose 5% in Water 250 ml @ 0.5 MG/MIN 16.667 mls/hr IV .Q15H [facility] Rx#: [id number] Dextrose 5% in Water 100 100 ml @ 618 mls/hr IV .Q10M ONE with Amiodarone 150 mg Rx#:[id number] Oral 480 Output: Urine 1900 1775 1400 Other: # Voids 1 1 1 # Bowel Movements 1 - Exam PHYSICAL EXAM: VITAL SIGNS: As above GENERAL: Sitting up in bed, no acute distress HEENT: Conjunctivae normal. eyes normal. NECK: No JVD. No thyroid enlargement. No LNs CARDIOVASCULAR: S1, S2 irregular. Tachycardic No murmur RESPIRATION: Breath sounds diminished in the bases. No rhonchi or crackles. ABDOMEN: Soft, nontender . No guarding. no masses palpable. Positive Bowel sounds. LEGS: Positive edema, Doppler pulses present. PSYCHIATRY: Alert and oriented X3, mood and affect normal. NERVOUS SYSTEM: Cranial N 2-12 grossly normal.No focal deficits. Strength and sensation grossly intact. Skin: Warm and dry, no rash. Left antecubital-prior IV site infiltrated, swollen. - Labs CBC & Chem 7: 02/28/22 07:19 02/28/22 07:19 Labs: Abnormal Lab Results - Last 24 Hours (Table) 02/27/22 02/28/22 02/28/22 Range/Units 20:44 07:19 07:19 WBC 11.2 H (3.8-10.6) k/uL MCV 100.2 H (80.0-100.0) fL Neutrophils # 8.8 H (1.3-7.7) k/uL Potassium 3.3 L (3.5-5.1) mmol/L Glucose 131 H (74-99) mg/dL Assessment and Plan Assessment: Extensive bilateral pulmonary emboli with both CT and echo suggesting right ventricular strain, status post EKOS and TPA on 02/25/2022. Acute hypoxic respiratory failure secondary to the above Elevated troponin secondary to the above Bilateral lower extremities ruled out for DVT as reported per Doppler, CT of abdomen and pelvis did not report any pelvic masses. Acute renal failure, improved Hypertension Hyperlipidemia Recent sinus infection Former nicotine dependence Severe tricuspid regurgitation Severe pulmonary hypertension Morbid obesity, BMI 50.6 Plan: Continue on current medication regime ,monitoring and symptomatic treatme nt.Antiarrhythmics/diuretics with weaning off O2. ICU management as per intensivists. The impression and plan of care has been dictated as directed. : I performed a history and examination of this patient, discussed the same with the dictator. I agree with the dictator's note ,documented as a scribe. Any additional findings or plans will be noted.
[2022-02-28] MEDS ORDERED: METOPROLOL TARTRATE 25 MG TAB PO SCH (21:00)
[2022-02-28] MEDS: ASPIRIN 81 MG PO SCH (21:03)
[2022-02-28] MEDS: ATORVASTATIN 80 MG TAB PO SCH (21:03)
[2022-02-28] MEDS ORDERED: AMIODARONE 450 MG in DEXTROSE 5% IN WATER 250 ML IV SCH ×2 (23:45)
[2022-03-01 05:12] LABS: Basophils % (A) 0 %; Eosinophils # (A) 0.2 k/uL (0-0.7); Eosinophils % (A) 2 %; HCT 41.8 % (34.0-46.0); HGB 13.4 gm/dL (11.4-16.0); Lymphocytes # (A) 1.5 k/uL (1.0-4.8); Lymphocytes % (A) 13 %; MCH 31.9 pg (25.0-35.0); MCHC 32.1 g/dL (31.0-37.0); MCV 99.5 fL (80.0-100.0); Mean Platelet Volume 7.8; Monocytes # (A) 0.6 k/uL (0-1.0); Monocytes % (A) 5 %; Neutrophils # (A) 8.8 k/uL (1.3-7.7); Neutrophils % (A) 78 %; Platelet Count 261 k/uL (150-450); RDW 14.1 % (11.5-15.5); WBC 11.2 k/uL (3.8-10.6)
[2022-03-01 05:32] LABS: Calcium 8.5 mg/dL (8.4-10.2); Potassium 3.7 mmol/L (3.5-5.1)
[2022-03-01] MEDS: LEVOTHYROXINE 75 MCG TAB PO SCH (05:44)
[2022-03-01] MEDS: METOPROLOL TARTRATE 50 MG TAB PO SCH ×2 (06:39→21:44)
[2022-03-01] MEDS: PANTOPRAZOLE 40 MG TABLET PO SCH (06:41)
[2022-03-01] MEDS ORDERED: ONDANSETRON 4 MG/2 ML VIAL IVP PRN (08:26)
[2022-03-01] MEDS: APIXABAN 5 MG TAB PO SCH ×2 (08:41→21:44)
[2022-03-01] MEDS: FUROSEMIDE 10 MG/ML 2 ML VIAL IV SCH ×2 (08:41→22:50)
--- NOTE | 2022-03-01 12:52 | P.PN ---
Subjective Progress Note Date: 03/01/22 This is a 72-year-old female patient was being seen in follow-up in the intensive care unit. The patient is being seen in follow-up on 02/26/2022. The patient is post intra-arterial thrombolytic therapy for pulmonary embolism. The patient is status post EKOS and the patient completed TPA treatment and the patient remains on IV heparin. The plan is to switch this patient to oral anticoagulation today. The patient is hemodynamically stable. The patient is not having any chest pain. No significant shortness of breath. The patient does have some edema lower extremities bilaterally and a Doppler of the lower extremity was negative for DVT. The patient otherwise has no respiratory distress. The patient will be taken off the IV heparin and patient is going to be started on Eliquis 10 mg by mouth twice a day. Cardiac rhythm is sinus. No significant tachycardia. Echo showed evidence of RV strain with right ventricular systolic pressure of around 75 mmHg. Left a ejection fraction was w ithin normal with an EF of around 55%. Note that the patient had a run of atrial fibrillation that lasted for about 30 seconds rate of 1:30 and the patient's current cardiac rhythm is back to sinus. She is currently on 8 L of oxygen by nasal cannula. Noted the patient was on a nonrebreather and later on she was weaned down to 10 L and currently she is on 8 L. On today's evaluation of 02/27/2022, Mariel is on 6 L about 2 by nasal cannula. She is being treated with anticoagulants regarding her pulmonary embolism and the patient is currently post EKOS, and the patient remains on anticoagulation with Eliquis 10 mg by mouth twice a day. At the same time, the patient went into atrial fibrillation with rapid ventricular response late in the afternoon yesterday. The patient was started on Cardizem drip which is up to 15 mg an hour and the patient is also on metoprolol 12.5 mg by mouth twice a day. Cardiology is on the case regarding this ongoing atrial fibrillation. The patient's blood pressure is soft. She is not requiring any pressors pH continues to have extensive edema in lower extremity is bilaterally. She was given IV Lasix yesterday. Doppler of the lower extremity 7 negative. Echocardiac Dejuan shown significant pulmonary hypertension and the PA pressure is 75. The patient also had severe tricuspid regurgitation. 02/28/2022, the patient remains in intensive care unit. We noticed that the IV line in the left upper extremity is infiltrated and that is why probably the patient wasn't having adequate control at atrial fibrillation. This morning, the patient continues to be in A. fib with RVR. Heart rate is around 120. The patient is on amiodarone at 0.5 mg per minute and the patient is off Cardizem for now. The patient is also receiving metoprolol 12.5 mg twice a day. Noted the patient's blood pressure is rather soft at this point in time. At the same time, the patient is being diuresed with IV Lasix. The patient is sitting very 20 mg IV every 12 hours and the patient is a negative fluid balance of around 2.6 L over the past 24 hours and she is having improvement in lower oximetry swelling. The patient has no chest pain. The patient is currently on oxygen and she is on 3 L by nasal cannula. She remains on antibiotic ventilation with Eliquis. CAT scan of the abdomen and pelvis was done and showed no evidence of any intra-abdominal masses. There was diverticulosis without diverticulitis and there was lumbar spinal stenosis and degenerative arthritis. 03/01/2022, I'm seeing the patient for a follow-up. Slightly improved compared to yesterday. Continue to diurese with IV Lasix and the patient has produced a negative fluid balance of 2.4 L over the past 24 hours. The patient is currently on 4 L O2 nasal cannula. Creatinine is 0.8 with a BUN of 18. The white cell count is at 11.2 with a hemoglobin of 13.4. The patient is currently on amiodarone 0.5 mg per minute and the heart rate is under better control although it still tachycardic. Based on that, the Lopressor was increased to 25 mg twice a day to 50 mg twice a day for better rate control. She remains on anticoagulation with Eliquis. She is still having some shortness of breath. Nevertheless, no interval worsening in her oxygenation. The patient is still on 2 L O2 nasal cannula. No nausea. No vomiting. No pleurisy. No chest pain. Doppler of the lower extremity was negative. CAT scan of the abdomen and pelvis showed no pelvic or abdominal masses. Echo of the heart showed significant pulmonary hypertension with a PA pressure of 75. The patient has completed catheter guided thrombolytic therapy with EKOS Objective - Vital Signs Vital signs: Vital Signs Temp 97.8 F 03/01/22 12:00 Pulse 61 03/01/22 12:00 Resp 30 H 03/01/22 12:00 BP 123/67 03/01/22 12:00 Pulse Ox 94 L 03/01/22 12:00 Intake & Output 02/28/22 03/01/22 03/01/22 18:59 06:59 18:59 Intake Total 1080 130 122 Output Total 2250 1400 900 Balance -1170 -1270 -778 Intake: IV 120 130 122 .9 kvo 120 130 122 Oral 960 Output: Urine 2250 1400 900 Other: Voiding Method External Catheter # Voids 1 # Bowel Movements 1 - Exam GENERAL EXAM: Alert, very pleasant, 72-year-old white female, on the 100% n onrebreather mask, seen in the cathlab, comfortable in no apparent distress. The patient is currently on 3 L of O2 by nasal cannula HEAD: Normocephalic/atraumatic. EYES: Normal reaction of pupils, equal size. Conjunctiva pink, sclera white. NOSE: Clear with pink turbinates. THROAT: No erythema or exudates. NECK: No masses, no JVD, no thyroid enlargement, no adenopathy. CHEST: No chest wall deformity. Symmetrical expansion. LUNGS: Equal air entry with no crackles, wheeze, rhonchi or dullness. CVS: Tachycardic with irregular rhythm consistent with atrial fibrillation, irregular S1-S2, no gallops, no murmurs, no rubs ABDOMEN: Soft, nontender. No hepatosplenomegaly, normal bowel sounds, no guarding or rigidity. Right groin catheters in place EXTREMITIES: No clubbing, there is significant bilateral lower extremity edema, no cyanosis, 2+ pulses and upper and lower extremities. MUSCULOSKELETAL: Muscle strength and tone normal. SPINE: No scoliosis or deformity SKIN: No rashes CENTRAL NERVOUS SYSTEM: Alert and oriented -3. No focal deficits, tone is normal in all 4 extremities. PSYCHIATRIC: Alert and oriented -3. Appropriate affect. Intact judgment and insight. - Labs CBC & Chem 7: 03/01/22 04:46 03/01/22 04:46 Labs: Abnormal Lab Results - Last 24 Hours (Table) 03/01/22 03/01/22 Range/Units 04:46 04:46 WBC 11.2 H (3.8-10.6) k/uL Neutrophils # 8.8 H (1.3-7.7) k/uL Sodium 135 L (137-145) mmol/L BUN 18 H (7-17) mg/dL Glucose 116 H (74-99) mg/dL Assessment and Plan Plan: #1. Acute hypoxic respiratory failure, shortness of breath related to submassive bilateral pulmonary emboli with CT evidence suggesting right ventric ular strain, status post EKOS catheter placement and alteplase infusion on 02/25/2022 the patient completed EKOS and the patient is currently Eliquis and the patient is hemodynamically stable on 2 L of O2 by nasal cannula #2. Elevated troponins related to the above, secondary to pulmonary embolism #3. Lower extremity edema, no evidence of DVT on lower extremity Dopplers, Consider right-sided heart failure, chronic contributing to this lower extremity edema. The CAT scan of the abdomen was negative for any acute intra-abdominal abnormalities. The patient is improving with IV Lasix and she is in a negative fluid balance. Noted the patient continues to undergo successful diuresis with a negative balance of 2.4 L over the past 24 hours. #4. Acute pulmonary hypertension with a right-sided pressure estimated to be around 75 mmHg secondary to above #5. Atrial fibrillation with rapid response and the patient is currently off Cardizem and and the patient is currently on Lopressor 50 mg by mouth twice a day. The patient continues to be somewhat tachycardic. The patient is curre ntly on amiodarone drip. It's likely that the patient was not getting the effect of the medication as the patient's IV line was infiltrating. Another IV line was established. The patient is in atrial fibrillation with Eliquis. #6. Hypertension #7. Hyperlipidemia #8. Nonsmoker #9. Morbid obesity with BMI of 49.1 kg/m #10 Osteoarthritis #11 recent sinus infection Plan Continue amiodarone drip Continue oral metoprolol and and those have been modified to 50 mg by mouth twice a day Continue IV Lasix 20 mg every 12 hours Monitor fluid balance Oxygenation is adequate at 2 L per minute nasal cannula Cardiology to manage atrial fibrillation, Metoprolol dose has been modified and the patient continues to be an amiodarone drip Wean down the FiO2 as tolerated to maintain saturation above 90% Keep the patient intensive care unit for today.
--- NOTE | 2022-03-01 14:32 | P.PN ---
Subjective Progress Note Date: 03/01/22 This is a 72-year-old female admitted with submassive bilateral pulmonary emboli, CT and echo suggestive of right ventricular strain ,status post EKOS and TPA on 02/25/2022 and multiple other medical issues. Tolerated procedure well. Chest x-ray reporting infusion catheter in place, probable basilar atelectasis. EKOS Catheter pulled this morning. Approximately 30 seconds of A. fib during discontinuation of catheter, spontaneously resolved with telemetry currently sinus rhythm. Eliquis initiated. Maintaining O2 sats in the 90s on 10 L high flow nasal cannula. Afebrile, WBC decreased, 13.3. Creatinine improved, 0.87. Denies chest pain, palpitations. 02/27/2022 maintaining O2 sats in the 90s on 6 L nasal cannula. Chest x-ray pending Developed atrial fibrillation with RVR yesterday afternoon, maintained on Cardizem drip currently at 15 mg per hour in addition to metoprolol. Telemetry atrial fibrillation with heart rates currently in the 140s. Borderline hypotension with current systolic blood pressures in the 90s, mean arterial pressure low 70s. Significant lower extremity edema, Dopplers reported no evidence of DVT, CT of abdomen and pelvis ordered. 02/28/2022 remains in A. fib with RVR, heart rates up into the 140s, on amiodarone drip. Diuresing well on Lasix IV push with 24-hour I&O reflecting a negative fluid balance. Denies chest pain, reports increased shortness of dante ath after eating. Completed CT of the abdomen and pelvis this morning, reporting patchy atelectasis at the lung bases, cardiomegaly, colonic diverticulosis without diverticulitis, no evidence of renal obstruction, no pelvic masses, moderately severe spinal stenosis at L3-4. 03/01/2022 diuresing well on Lasix IV push with 24-hour I&O reflecting a negative fluid balance. Lower extremity edema, softer .Yesterday IV had infiltrated and left antecubital area, site outlined with no progression. Remains in atrial fibrillation with RVR, heart rates, better controlled, currently in the 120s. Reports mild shortness of breath, currently maintaining O2 sats in the low 90s on 2 L nasal cannula. Complains of nausea after eating without emesis. Denies chest pain, palpitations. Objective - Vital Signs Vital signs: Vital Signs Temp 97.8 F 03/01/22 12:00 Pulse 62 03/01/22 14:00 Resp 19 03/01/22 14:00 BP 112/66 03/01/22 14:00 Pulse Ox 94 L 03/01/22 14:00 Intake & Output 02/28/22 03/01/22 03/01/22 18:59 06:59 18:59 Intake Total 1080 130 132 Output Total 2250 1400 1050 Balance -1170 -1270 -918 Intake: IV 120 130 132 .9 kvo 120 130 132 Oral 960 Output: Urine 2250 1400 1050 Other: Voiding Method External Catheter # Voids 1 # Bowel Movements 1 - Exam PHYSICAL EXAM: VITAL SIGNS: As above GENERAL: Sitting up in bed, no acute distress HEENT: Conjunctivae normal. eyes normal. NECK: No JVD. No thyroid enlargement. No LNs CARDIOVASCULAR: S1, S2 irregular. Tachycardic-improving, No murmur RESPIRATION: Breath sounds diminished in the bases. No rhonchi or crackles. ABDOMEN: Soft, nontender . No guarding. no masses palpable. Positive Bowel sounds. LEGS: Positive edema-softer, Doppler pulses present. PSYCHIATRY: Alert and oriented X3, mood and affect normal. NERVOUS SYSTEM: Cranial N 2-12 grossly normal.No focal deficits. Strength and sensation grossly intact. Skin: Warm and dry, no rash. Left antecubital-prior IV site infiltrated, swollen-decreased redness, outlined, nonprogressive. - Labs CBC & Chem 7: 03/01/22 04:46 03/01/22 04:46 Labs: Abnormal Lab Results - Last 24 Hours (Table) 03/01/22 03/01/22 Range/Units 04:46 04:46 WBC 11.2 H (3.8-10.6) k/uL Neutrophils # 8.8 H (1.3-7.7) k/uL Sodium 135 L (137-145) mmol/L BUN 18 H (7-17) mg/dL Glucose 116 H (74-99) mg/dL Assessment and Plan Assessment: Extensive bilateral pulmonary emboli with both CT and echo suggesting right ventricular strain, status post EKOS and TPA on 02/25/2022. Acute hypoxic respiratory failure secondary to the above Elevated troponin secondary to the above Bilateral lower extremities ruled out for DVT as reported per Doppler, CT of abdomen and pelvis did not report any pelvic masses. Acute renal failure, improved Hypertension Hyperlipidemia Recent sinus infection Former nicotine dependence Severe tricuspid regurgitation Severe pulmonary hypertension Morbid obesity, BMI 50.6 Plan: Continue on current medication regime ,monitoring and symptomatic treatment.Antiarrhythmics/diuretics with weaning off O2. ICU management as per intensivists. The impression and plan of care has been dictated as directed. : I performed a history and examination of this patient, discussed the same with the dictator. I agree with the dictator's note ,documented as a scribe. Any additional findings or plans will be noted.
[2022-03-01] MEDS: AMIODARONE 200 MG TAB PO SCH ×2 (16:48→21:42)
--- NOTE | 2022-03-01 17:35 | P.PN ---
Subjective Progress Note Date: 03/01/22 This is a 72-year-old female was admitted to the hospital with the shortness of breath and was diagnosed to have pulmonary emboli. Patient had EKO procedure yesterday and received TPA. The EKO machine and the catheters were removed this morning. Patient is doing well. She did have brief episodes of atrial fibrillation which are self terminating. Overall, patient's critical status stable. Lungs are clear. Heart is regular. No JVD. We'll continue current medical therapy. Echo Cardigan showed normal LV function with evidence of right ventricular strain. She is also initiated on Eliquis 10 mg by mouth twice a day. Her blood pressure is running about 112/70. Heart rate is about 70-80. 02/27/2022: This patient is being treated for pulmonary embolism. She developed persistent atrial fibrillation, Yesterday, with moderately rapid ventricular response. Patient has been on IV Cardizem. Heart rate is not well controlled at. I'm going to stop the Cardizem and start her on IV amiodarone. Otherwise patient is doing well. Complaints of mild shortness of breath. Lungs are clear. Heart is irregular. Further examination depend upon clinical course. We'll also obtain thyroid function studies. 02/28/2022: This patient is admitted to the hospital with shortness of breath and documented pulmonary emboli. Patient had an EKMO and thrombolytic therapy. Patient developed persistent atrial fibrillation. She was initiated on IV amiodarone. It appears that there is some mild functional IV site. She may not have gotten the medication. IV site is changed and she is going to just additional bolus of amiodarone. I'm also going to increase the dose of the beta jorge alberto as tolerated. He with heart rate is not controlled. May consider adding small dose of digoxin. Patient is otherwise feeling okay. No complaints of any chest pain today. Further recommendations depend upon the clinical course. 03/01/2022: This patient is admitted to the hospital with bilateral pulmonary emboli and received thrombolytic therapy. She did develop paroxysmal/persistent atrial fibrillation. Patient was initiated on amiodarone therapy. Patient converted back to sinus rhythm this morning and his maintaining sinus rhythm. Patient is feeling better. We will switch from IV amiodarone to by mouth amiodarone 200 mg by mouth 3 times a day continue with beta jorge alberto. Her lungs are clear. Heart is regular. No JVD. Patient is being transferred to telemetry unit. Possible discharge in the morning. Objective - Vital Signs Vital signs: Vital Signs Temp 98.2 F 03/01/22 16:00 Pulse 71 03/01/22 17:00 Resp 18 03/01/22 17:00 BP 139/69 03/01/22 17:00 Pulse Ox 91 L 03/01/22 17:00 Intake & Output 02/28/22 03/01/22 03/01/22 18:59 06:59 18:59 Intake Total 1080 130 132 Output Total 2250 1400 1050 Balance -1170 -1270 -918 Intake: IV 120 130 132 .9 kvo 120 130 132 Oral 960 Output: Urine 2250 1400 1050 Other: Voiding Method External Catheter # Voids 1 # Bowel Movements 1 - Exam GENERAL EXAM: Patient is alert and oriented and doesn't appear to be in any acute distress HEENT: Normocephalic. Normal reaction of pupils, equal size, normal range of extraocular motion. No erythema or exudates in the throat. NECK: No masses, no nuchal rigidity. CHEST: No chest wall deformity. LUNGS: Equal air entry with no crackles or wheeze. HEART: S1 and S2 normal. Rapid and irregular ABDOMEN: No hepatosplenomegaly, normal bowel sounds, no guarding or rigidity. SKIN: No rashes CENTRAL NERVOUS SYSTEM: No focal deficits. EXTREMITIES: No cyanosis, clubbing or edema. - Labs CBC & Chem 7: 03/01/22 04:46 03/01/22 04:46 Labs: Abnormal Lab Results - Last 24 Hours (Table) 03/01/22 03/01/22 Range/Units 04:46 04:46 WBC 11.2 H (3.8-10.6) k/uL Neutrophils # 8.8 H (1.3-7.7) k/uL Sodium 135 L (137-145) mmol/L BUN 18 H (7-17) mg/dL Glucose 116 H (74-99) mg/dL Assessment and Plan (1) Pulmonary embolism Current Visit: Yes Status: Acute Code(s): I26.99 - OTHER PULMONARY EMBOLISM WITHOUT ACUTE COR PULMONALE SNOMED Code(s): 14033377 (2) Hypertension Current Visit: Yes Status: Acute Code(s): I10 - ESSENTIAL (PRIMARY) HYPERTENSION SNOMED Code(s): 42773969 (3) Obesity Current Visit: Yes Status: Acute Code(s): E66.9 - OBESITY, UNSPECIFIED SNOMED Code(s): 559469116 (4) Persistent atrial fibrillation Current Visit: Yes Status: Acute Code(s): I48.19 - OTHER PERSISTENT ATRIAL FIBRILLATION SNOMED Code(s): 680680771 Plan: A she is back in sinus rhythm. Being switched to by mouth amiodarone. Transfer to telemetry unit and increase activity. Possible discharge in 24 hours
[2022-03-01] MEDS: ASPIRIN 81 MG PO SCH (21:44)
[2022-03-01] MEDS: ATORVASTATIN 80 MG TAB PO SCH (21:44)
[2022-03-02] MEDS: PANTOPRAZOLE 40 MG TABLET PO SCH (06:22)
[2022-03-02] MEDS: LEVOTHYROXINE 75 MCG TAB PO SCH (06:22)
[2022-03-02] MEDS: METOPROLOL TARTRATE 50 MG TAB PO SCH ×2 (08:15→20:54)
[2022-03-02] MEDS: FUROSEMIDE 10 MG/ML 2 ML VIAL IV SCH ×2 (08:15→20:54)
[2022-03-02] MEDS: AMIODARONE 200 MG TAB PO SCH ×3 (08:15→20:54)
[2022-03-02] MEDS: APIXABAN 5 MG TAB PO SCH ×2 (08:15→20:54)
[2022-03-02 11:15] VITALS: BMI 51.7
--- NOTE | 2022-03-02 13:13 | P.PN ---
Subjective Patient is a pleasant 72-year-old female with only medical history of orthopedic issues. She does not follow with a chemists regularly. She presents secondary to worsening shortness breath over the last 2-3 weeks. CTA revealed bilateral Pulmonary embolism with RV strain. Echocardiogram revealed EF 5560 percent, grade 2 diastolic dysfunction, RV systolic dysfunction, right ventricular overload and or elevated right ventricular end diastolic pressure, severe tricuspid regurgitation, severe pulmonary hypertension with RVSP of 75 mg of mercury. On 02/25/2022, she underwent EKOS procedure. On 02/27/2022, patient developed atrial fibrillation with RVR was initiated on Cardizem and HR were not controlled. She was then started on IV amiodarone. She converted back to sinus mechanism and maintained sinus mechanism. Transition to PO amiodarone She has been transferred out of the ICU. She is on Eliquis 10mg BID. She is feeling well. No acute events overnight. She is maintaining sinus mechanism. Vital signs are stable. She's currently maintained on aspirin 81 mg daily, atorvastatin 80 mg nightly, IV Lasix 20 mg twice a day, metoprolol titrate 50 mg twice a day, amiodarone 200 mg TID PHYSICAL EXAMINATION Vital signs reviewed. CONSTITUTIONAL: No apparent distress HEENT: Neck Supple. No JVD. CHEST EXAMINATION: Lungs are clear to auscultation. No chest wall tenderness is noted on palpation or with deep breathing. HEART EXAMINATION: Regular rate and rhythm. S1, S2 heard. No murmurs, gallops or rub. ABDOMEN: Soft, nontender. Positive bowel sounds. EXTREMITIES: 2+ peripheral pulses, 1+ lower extremity edema and no calf tenderness. NEUROLOGIC EXAMINATION: Patient is awake, alert and oriented x3. ASSESSMENT Acute oxygen-dependent respiratory failure related to pulmonary embolism Submassive bilateral pulmonary embolism with RV strain Status post EKOS procedure on 02/25/2022 Paroxysmal atrial fibrillation [id number] score 2, on Eliquis Non-STEMI likely related to pulmonary embolism Chest pain related to pulmonary embolism PLAN From a cardiology perspective patient is stable. Continue amiodarone taper Continue Eliquis anticoagulation Continue metoprolol tartrate and statin Follow up outpatient with Dr. Sylvester Nurse practitioner note has been reviewed by physician. Signing provider agrees with the documented findings, assessment, and plan of care. Objective - Vital Signs Vital signs: Vital Signs Temp 97.4 F L 03/02/22 08:20 Pulse 66 03/02/22 08:20 Resp 18 03/02/22 08:20 BP 114/68 03/02/22 08:20 Pulse Ox 96 03/02/22 08:20 Intake & Output 03/01/22 03/02/22 03/02/22 18:59 06:59 18:59 Intake Total 132 240 240 Output Total 1050 1400 700 Balance -918 -1160 -460 Weight 141 kg Intake: IV 132 .9 kvo 132 Oral 240 240 Output: Urine 1050 1400 700 Other: Voiding Method External Catheter External Catheter External Catheter - Labs CBC & Chem 7: 03/01/22 04:46 03/01/22 04:46
--- NOTE | 2022-03-02 13:50 | P.PN ---
Subjective Progress Note Date: 03/02/22 Principal diagnosis: Shortness of breath This is a 72-year-old female patient was being seen in follow-up in the intensive care unit. The patient is being seen in follow-up on 02/26/2022. The patient is post intra-arterial thrombolytic therapy for pulmonary embolism. The patient is status post EKOS and the patient completed TPA treatment and the patient remains on IV heparin. The plan is to switch this patient to oral anticoagulation today. The patient is hemodynamically stable. The patient is not having any chest pain. No significant shortness of breath. The patient does have some edema lower extremities bilaterally and a Doppler of the lower extremity was negative for DVT. The patient otherwise has no respiratory distress. The patient will be taken off the IV heparin and patient is going to be started on Eliquis 10 mg by mouth twice a day. Cardiac rhythm is sinus. No significant tachycardia. Echo showed evidence of RV strain with right ventricular systolic pressure of around 75 mmHg. Left a ejection fraction was within normal with an EF of around 55%. Note that the patient had a run of atrial fibrillation that lasted for about 30 seconds rate of 1:30 and the patient's current cardiac rhythm is back to sinus. She is currently on 8 L of oxygen by nasal cannula. Noted the patient was on a nonrebreather and later on she was weaned down to 10 L and currently she is on 8 L. On today's evaluation of 02/27/2022, Mariel is on 6 L about 2 by nasal cannula. She is being treated with anticoagulants regarding her pulmonary embolism and the patient is currently post EKOS, and the patient remains on anticoagulation with Eliquis 10 mg by mouth twice a day. At the same time, the patient went into atrial fibrillation with rapid ventricular response late in the afternoon yesterday. The patient was started on Cardizem drip which is up to 15 mg an hour and the patient is also on metoprolol 12.5 mg by mouth twice a day. Cardiology is on the case regarding this ongoing atrial fibrillation. The patient's blood pressure is soft. She is not requiring any pressors pH continues to have extensive edema in lower extremity is bilaterally. She was given IV Lasix yesterday. Doppler of the lower extremity 7 negative. Echocardiac Dejuan shown significant pulmonary hypertension and the PA pressure is 75. The patient also had severe tricuspid regurgitation. 02/28/2022, the patient remains in intensive care unit. We noticed that the IV line in the left upper extremity is infiltrated and that is why probably the patient wasn't having adequate control at atrial fibrillation. This morning, the patient continues to be in A. fib with RVR. Heart rate is around 120. The patient is on amiodarone at 0.5 mg per minute and the patient is off Cardizem for now. The patient is also receiving metoprolol 12.5 mg twice a day. Noted the patient's blood pressure is rather soft at this point in time. At the same time, the patient is being diuresed with IV Lasix. The patient is sitting very 20 mg IV every 12 hours and the patient is a negative fluid balance of around 2.6 L over the past 24 hours and she is having improvement in lower oximetry swelling. The patient has no chest pain. The patient is currently on oxygen and she is on 3 L by nasal cannula. She remains on antibiotic ventilation with Eliquis. CAT scan of the abdomen and pelvis was done and showed no evidence of any intra-abdominal masses. There was diverticulosis without diverticulitis and there was lumbar spinal stenosis and degenerative arthritis. 03/01/2022, I'm seeing the patient for a follow-up. Slightly improved compared to yesterday. Continue to diurese with IV Lasix and the patient has produced a negative fluid balance of 2.4 L over the past 24 hours. The patient is currently on 4 L O2 nasal cannula. Creatinine is 0.8 with a BUN of 18. The white cell count is at 11.2 with a hemoglobin of 13.4. The patient is currently on amiodarone 0.5 mg per minute and the heart rate is under better control although it still tachycardic. Based on that, the Lopressor was increased to 25 mg twice a day to 50 mg twice a day for better rate control. She remains on anticoagulation with Eliquis. She is still having some shortness of breath. Nevertheless, no interval worsening in her oxygenation. The patient is still on 2 L O2 nasal cannula. No nausea. No vomiting. No pleurisy. No chest pain. Doppler of the lower extremity was negative. CAT scan of the abdomen and pelvis showed no pelvic or abdominal masses. Echo of the heart showed significant pulmonary hypertension with a PA pressure of 75. The patient has completed catheter guided thrombolytic therapy with EKOS On 03/02/2022 patient seen in follow-up on selective care unit. She is up comfortably in bed, breathing comfortably, room air pulse ox is 96-99%. She is currently in sinus mechanism, she remains on metoprolol 50 mg twice daily, oral amiodarone 200 mg 3 times daily and oral anticoagulation in the form of Levaquin was 10 mg twice daily, patient is status post equals catheter placement for intra-arterial thrombolytic therapy for pulmonary embolism. She also remains on IV diuretics with Lasix 20 mg every 12 hours, she is in negative fluid balance, her lower extremity edema is improving. Today's lab 7 reviewed, white blood cell count is 11.2, hemoglobin is 13.4, electrolyte and renal profile were unremarkable. No worsening dyspnea or hypoxia, no complaints of chest discomfort. Objective - Vital Signs Vital signs: Vital Signs Temp 97.4 F L 03/02/22 08:20 Pulse 59 L 03/02/22 12:00 Resp 18 03/02/22 12:00 BP 119/63 03/02/22 12:00 Pulse Ox 94 L 03/02/22 12:00 Intake & Output 03/01/22 03/02/22 03/02/22 18:59 06:59 18:59 Intake Total 132 240 420 Output Total 1050 1400 700 Balance -918 -1160 -280 Weight 141 kg Intake: IV 132 .9 kvo 132 Oral 240 420 Output: Urine 1050 1400 700 Other: Voiding Method External Catheter External Catheter External Catheter - Exam GENERAL EXAM: Alert, very pleasant, 72-year-old white female, on room air with pulse ox of 94-96% comfortable in no apparent distress. HEAD: Normocephalic/atraumatic. EYES: Normal reaction of pupils, equal size. Conjunctiva pink, sclera white. NOSE: Clear with pink turbinates. THROAT: No erythema or exudates. NECK: No masses, no JVD, no thyroid enlargement, no adenopathy. CHEST: No chest wall deformity. Symmetrical expansion. LUNGS: Equal air entry with no crackles, wheeze, rhonchi or dullness. CVS: Regular rate and rhythm, normal S1 and S2, no gallops, no murmurs, no rubs ABDOMEN: Soft, nontender. No hepatosplenomegaly, normal bowel sounds, no guarding or rigidity. EXTREMITIES: No clubbing, 2+ lower extremity edema, no cyanosis, 2+ pulses and upper and lower extremities. MUSCULOSKELETAL: Muscle strength and tone normal. SPINE: No scoliosis or deformity SKIN: No rashes CENTRAL NERVOUS SYSTEM: Alert and oriented -3. No focal deficits, tone is normal in all 4 extremities. PSYCHIATRIC: Alert and oriented -3. Appropriate affect. Intact judgment and insight. - Labs CBC & Chem 7: 03/01/22 04:46 03/01/22 04:46 Assessment and Plan Plan: Assessment: Acute hypoxic respiratory failure, shortness of breath related to submassive bilateral pulmonary emboli with CT evidence suggesting right ventricular strain, status post EKOS catheter placement and alteplase infusion on 02/25/2022 Elevated troponins related to the above Lower extremity edema, no evidence of DVT on lower extremity Dopplers Recent sinus infection Osteoarthritis Hypertension Hyperlipidemia Nonsmoker Morbid obesity with BMI of 49.1 kg/m Recent sinus infection A. fib with RVR, currently back in sinus mechanism, has been transitioned to oral amiodarone, metoprolol, and remains on Eliquis Plan: Patient is off the supplement oxygen She is back in sinus mechanism Hemodynamically stable Vital signs have been stable Continues with the generalized edema which is improving Still has exertional dyspnea Recommend continuing IV diuretics Monitor electrolytes and renal profile Increase activity as tolerated Recommend monitoring the patient over the weekend as she is still weak, and fluid overloaded I have personally seen and examined the patient, performed the documentation and the assessment and plan as written. Number of minutes spent on the visit: [10] This is a split shred evaluation that was done along with a nurse practitioner. I was involved in more than 90% of this evaluation terms of examination, history taking, and decision-making. The evaluation was done and more than 20 minutes. This patient is clinically improving. The patient is responding nicely to diuretics. The patient remains on Lasix 20 mg IV every 12 hours. The patient is also on anticoagulation with Eliquis. Cardiac rhythm is back to sinus. Not ready for discharge yet. Time with Patient: Less than 30
[2022-03-02] MEDS: ASPIRIN 81 MG PO SCH (20:54)
[2022-03-02] MEDS: ATORVASTATIN 80 MG TAB PO SCH (20:54)
--- NOTE | 2022-03-02 22:04 | P.PN ---
Subjective This is a pleasant 72 years old female with multiple medical problems presents with dyspnea found to have bilateral pulmonary embolism on CTA of the chest with evidence of ventricular straight which is also seen on echocardiogram as paradoxical movement of interventricular septum which is a sign of increased intraventricular pressure or volume. Patient evaluated by pulmonary and cardiology service and she underwent EKOS catheter placement with alteplase infusion. Currently she is breathing comfort and she kept on Eliquis 10 mg twice daily. Also she has some evidence of fluid overload with bilateral leg edema and she is covered with IV Lasix 20 mg twice daily. Hemodynamically stable. WBC is 11.2. Liver enzymes mildly elevated. She has evidence of A. fib which is wished to sinus rhythm and she is kept on Eliquis amiodarone and metoprolol She has evidence of severe L3 to L4 spinal stenosis. However she denies any back pain and she's working at baseline with a walker for several months now. Objective - Vital Signs Vital signs: Vital Signs Temp 97.4 F L 03/02/22 08:20 Pulse 59 L 03/02/22 12:00 Resp 18 03/02/22 12:00 BP 119/63 03/02/22 12:00 Pulse Ox 94 L 03/02/22 12:00 Intake & Output 03/01/22 03/02/22 03/02/22 18:59 06:59 18:59 Intake Total 132 240 420 Output Total 1050 1400 700 Balance -918 -1160 -280 Weight 141 kg Intake: IV 132 .9 kvo 132 Oral 240 420 Output: Urine 1050 1400 700 Other: Voiding Method External Catheter External Catheter External Catheter - Exam -GENERAL: The patient is alert and oriented x3, not in any acute distress. Morbid obesity HEENT: Pupils are round and equally reacting to light. EOMI. No scleral icterus. No conjunctival pallor. Normocephalic, atraumatic. No pharyngeal erythema. No thyromegaly. CARDIOVASCULAR: S1 and S2 present. No murmurs, rubs, or gallops. PULMONARY: Chest is clear to auscultation, no wheezing or crackles. ABDOMEN: Soft, nontender, nondistended, normoactive bowel sounds. No palpable organomegaly. MUSCULOSKELETAL: No joint swelling or deformity. -EXTREMITIES: No cyanosis, clubbing, mild bilateral patella getting NEUROLOGICAL: Gross neurological examination did not reveal any focal deficits. SKIN: No rashes. no petechiae. - Labs CBC & Chem 7: 03/01/22 04:46 03/01/22 04:46 Assessment and Plan Assessment: Acute bilateral pulmonary emboli with right ventricular strain status post pacemaker effusion using EKG CATHETER. Elevated troponin secondary to above A. fib with RVR, currently sinus rhythm Moderate to severe L3 to L4 spinal stenosis, no back pain and patient at baseline. Plan: This is a pleasant 72 years old female who presents with PE and fluid overload Continue with the Eliquis Continue with IV Lasix Cardiology and pulmonary team of the case Continue with metoprolol and amiodarone per poultry offal icer Labs and medication were reviewed.. Continue same treatment. Continue with symptomatic treatment. Resume home medication. Monitor lytes and vitals. DVT and GI prophylaxis. Further recommendations as per clinical course of the patient DVT prophylaxis: Eliquis GI Prophylaxis: Ppi PT/OT: Pending, ordered
[2022-03-03] MEDS: LEVOTHYROXINE 75 MCG TAB PO SCH (06:47)
[2022-03-03] MEDS: PANTOPRAZOLE 40 MG TABLET PO SCH (06:47)
[2022-03-03] MEDS: METOPROLOL TARTRATE 50 MG TAB PO SCH ×2 (08:08→21:01)
[2022-03-03] MEDS: AMIODARONE 200 MG TAB PO SCH ×3 (08:08→21:00)
[2022-03-03] MEDS: FUROSEMIDE 10 MG/ML 2 ML VIAL IV SCH ×2 (08:08→21:01)
[2022-03-03] MEDS: APIXABAN 5 MG TAB PO SCH ×2 (08:08→21:00)
--- NOTE | 2022-03-03 12:30 | P.PN ---
Subjective Progress Note Date: 03/03/22 This is a 72-year-old female patient was being seen in follow-up in the intensive care unit. The patient is being seen in follow-up on 02/26/2022. The patient is post intra-arterial thrombolytic therapy for pulmonary embolism. The patient is status post EKOS and the patient completed TPA treatment and the patient remains on IV heparin. The plan is to switch this patient to oral anticoagulation today. The patient is hemodynamically stable. The patient is not having any chest pain. No significant shortness of breath. The patient does have some edema lower extremities bilaterally and a Doppler of the lower extremity was negative for DVT. The patient otherwise has no respiratory distress. The patient will be taken off the IV heparin and patient is going to be started on Eliquis 10 mg by mouth twice a day. Cardiac rhythm is sinus. No significant tachycardia. Echo showed evidence of RV strain with right ventricular systolic pressure of around 75 mmHg. Left a ejection fraction was within normal with an EF of around 55%. Note that the patient had a run of atrial fibrillation that lasted for about 30 seconds rate of 1:30 and the patient's current cardiac rhythm is back to sinus. She is currently on 8 L of oxygen by nasal cannula. Noted the patient was on a nonrebreather and later on she was weaned down to 10 L and currently she is on 8 L. On today's evaluation of 02/27/2022, Mariel is on 6 L about 2 by nasal cannula. She is being treated with anticoagulants regarding her pulmonary embolism and the patient is currently post EKOS, and the patient remains on anticoagulation with Eliquis 10 mg by mouth twice a day. At the same time, the patient went into atrial fibrillation with rapid ventricular response late in the afternoon yesterday. The patient was started on Cardizem drip which is up to 15 mg an hour and the patient is also on metoprolol 12.5 mg by mouth twice a day. Cardiology is on the case regarding this ongoing atrial fibrillation. The patient's blood pressure is soft. She is not requiring any pressors pH continues to have extensive edema in lower extremity is bilaterally. She was given IV Lasix yesterday. Doppler of the lower extremity 7 negative. Echocardiac Dejuan shown significant pulmonary hypertension and the PA pressure is 75. The patient also had severe tricuspid regurgitation. 02/28/2022, the patient remains in intensive care unit. We noticed that the IV line in the left upper extremity is infiltrated and that is why probably the patient wasn't having adequate control at atrial fibrillation. This morning, the patient continues to be in A. fib with RVR. Heart rate is around 120. The patient is on amiodarone at 0.5 mg per minute and the patient is off Cardizem for now. The patient is also receiving metoprolol 12.5 mg twice a day. Noted the patient's blood pressure is rather soft at this point in time. At the same time, the patient is being diuresed with IV Lasix. The patient is sitting very 20 mg IV every 12 hours and the patient is a negative fluid balance of around 2.6 L over the past 24 hours and she is having improvement in lower oximetry swelling. The patient has no chest pain. The patient is currently on oxygen and she is on 3 L by nasal cannula. She remains on antibiotic ventilation with Eliquis. CAT scan of the abdomen and pelvis was done and showed no evidence of any intra-abdominal masses. There was diverticulosis without diverticulitis and there was lumbar spinal stenosis and degenerative arthritis. 03/01/2022, I'm seeing the patient for a follow-up. Slightly improved compared to yesterday. Continue to diurese with IV Lasix and the patient has produced a negative fluid balance of 2.4 L over the past 24 hours. The patient is currently on 4 L O2 nasal cannula. Creatinine is 0.8 with a BUN of 18. The white cell count is at 11.2 with a hemoglobin of 13.4. The patient is currently on amiodarone 0.5 mg per minute and the heart rate is under better control although it still tachycardic. Based on that, the Lopressor was increased to 25 mg twice a day to 50 mg twice a day for better rate control. She remains on anticoagulation with Eliquis. She is still having some shortness of breath. Nevertheless, no interval worsening in her oxygenation. The patient is still on 2 L O2 nasal cannula. No nausea. No vomiting. No pleurisy. No chest pain. Doppler of the lower extremity was negative. CAT scan of the abdomen and pelvis showed no pelvic or abdominal masses. Echo of the heart showed significant pulmonary hypertension with a PA pressure of 75. The patient has completed catheter guided thrombolytic therapy with EKOS On 03/02/2022 patient seen in follow-up on selective care unit. She is up comfortably in bed, breathing comfortably, room air pulse ox is 96-99%. She is currently in sinus mechanism, she remains on metoprolol 50 mg twice daily, oral amiodarone 200 mg 3 times daily and oral anticoagulation in the form of Eliquis was 10 mg twice daily, patient is status post equals catheter placement for intra-arterial thrombolytic therapy for pulmonary embolism. She also remains on IV diuretics with Lasix 20 mg every 12 hours, she is in negative fluid balance, her lower extremity edema is improving. Today's lab 7 reviewed, white blood cell count is 11.2, hemoglobin is 13.4, electrolyte and renal profile were unremarkable. No worsening dyspnea or hypoxia, no complaints of chest discomfort. 03/03/2022, Mariel is feeling well. She is a negative fluid balance and she has produced another 2 L of negative for Bence over the past 24 hours as the patient is currently on Lasix 20 mg IV every 12 hours. Lower extremity edema is improving pH is on room air oxygen. She remains on Eliquis systemic vascular twice a day. No bleeding complications. No syncope shortness of breath and she is sitting up on a recliner. No nausea. No vomiting. No diarrhea. No abdominal pain. No chest pain. Meanwhile, the patient's white cell count from few days ago was 11.2 with hemoglobin 15.4 had no new labs available from today. Objective - Vital Signs Vital signs: Vital Signs Temp 98.1 F 03/03/22 08:00 Pulse 56 L 03/03/22 11:59 Resp 18 03/03/22 11:59 BP 135/62 03/03/22 11:59 Pulse Ox 97 03/03/22 11:59 Intake & Output 03/02/22 03/03/22 03/03/22 18:59 06:59 18:59 Intake Total 420 240 Output Total 1600 1750 1400 Balance -1180 -1750 -1160 Weight 141 kg Intake: Oral 420 240 Output: Urine 1600 1750 1400 Other: Voiding Method External Catheter External Catheter External Catheter - Exam GENERAL EXAM: Alert, very pleasant, 72-year-old white female, on room air with pulse ox of 94-96% comfortable in no apparent distress. HEAD: Normocephalic/atraumatic. EYES: Normal reaction of pupils, equal size. Conjunctiva pink, sclera white. NOSE: Clear with pink turbinates. THROAT: No erythema or exudates. NECK: No masses, no JVD, no thyroid enlargement, no adenopathy. CHEST: No chest wall deformity. Symmetrical expansion. LUNGS: Equal air entry with no crackles, wheeze, rhonchi or dullness. CVS: Regular rate and rhythm, normal S1 and S2, no gallops, no murmurs, no rubs ABDOMEN: Soft, nontender. No hepatosplenomegaly, normal bowel sounds, no guarding or rigidity. EXTREMITIES: No clubbing, 2+ lower extremity edema, no cyanosis, 2+ pulses and upper and lower extremities. MUSCULOSKELETAL: Muscle strength and tone normal. SPINE: No scoliosis or deformity SKIN: No rashes CENTRAL NERVOUS SYSTEM: Alert and oriented -3. No focal deficits, tone is norm al in all 4 extremities. PSYCHIATRIC: Alert and oriented -3. Appropriate affect. Intact judgment and insight. - Labs CBC & Chem 7: 03/01/22 04:46 03/01/22 04:46 Assessment and Plan Plan: Assessment: Acute hypoxic respiratory failure, shortness of breath related to submassive bilateral pulmonary emboli with CT evidence suggesting right ventricular strain, status post EKOS catheter placement and alteplase infusion on 02/25/2022, recovered and the patient is breathing much easier and the patient is currently on room air oxygen. Elevated troponins related to the above Lower extremity edema, no evidence of DVT on lower extremity Dopplers, currently on Lasix much improved and the patient remains in a negative fluid balance Recent sinus infection Osteoarthritis Hypertension Hyperlipidemia Nonsmoker Morbid obesity with BMI of 49.1 kg/m Recent sinus infection A. fib with RVR, currently back in sinus mechanism, has been transitioned to oral amiodarone, metoprolol, and remains on Eliquis Plan: Continue anticoagulation with Eliquis Patient is currently on room air oxygen Cardiac rhythm is sinus Continue IV Lasix for another 24 hours as the patient is improving in terms of the fluid balance and lower extremity edema Monitor renal function and electrolytes Potential discharge in the next 24 hours Patient is off the supplement oxygen She is back in sinus mechanism Hemodynamically stable Vital signs have been stable Continues with the generalized edema which is improving Still has exertional dyspnea Recommend continuing IV diuretics Monitor electrolytes and renal profile Increase activity as tolerated Recommend monitoring the patient over the weekend as she is still weak, and fluid overloaded
[2022-03-03 13:01] LABS: Basophils # (A) 0.1 k/uL (0-0.2); Basophils % (A) 1 %; Eosinophils # (A) 0.4 k/uL (0-0.7); Eosinophils % (A) 4 %; HGB 14.9 gm/dL (11.4-16.0); Lymphocytes # (A) 1.7 k/uL (1.0-4.8); Lymphocytes % (A) 17 %; MCH 32.1 pg (25.0-35.0); MCHC 32.3 g/dL (31.0-37.0); MCV 99.3 fL (80.0-100.0); Mean Platelet Volume 7.3; Monocytes # (A) 0.5 k/uL (0-1.0); Monocytes % (A) 5 %; Neutrophils # (A) 7.1 k/uL (1.3-7.7); Neutrophils % (A) 73 %; Platelet Count 314 k/uL (150-450); RBC 4.64 m/uL (3.80-5.40); RDW 13.4 % (11.5-15.5); WBC 9.8 k/uL (3.8-10.6)
[2022-03-03 13:10] LABS: Albumin 3.4 g/dL (3.5-5.0); Potassium 3.8 mmol/L (3.5-5.1); Total Bilirubin 1.4 mg/dL (0.2-1.3); Total Protein 6.3 g/dL (6.3-8.2)
--- NOTE | 2022-03-03 14:08 | P.PN ---
Subjective This is a pleasant 72 years old female with multiple medical problems presents with dyspnea found to have bilateral pulmonary embolism on CTA of the chest with evidence of ventricular straight which is also seen on echocardiogram as paradoxical movement of interventricular septum which is a sign of increased intraventricular pressure or volume. Patient evaluated by pulmonary and cardiology service and she underwent EKOS catheter placement with alteplase infusion. Currently she is breathing comfort and she kept on Eliquis 10 mg twice daily. Also she has some evidence of fluid overload with bilateral leg edema and she is covered with IV Lasix 20 mg twice daily. Hemodynamically stable. WBC is 11.2. Liver enzymes mildly elevated. She has evidence of A. fib which is wished to sinus rhythm and she is kept on Eliquis amiodarone and metoprolol She has evidence of severe L3 to L4 spinal stenosis. However she denies any back pain and she's working at baseline with a walker for several months now. 03/03/2022 Clinically doing well, she denies chest pain, she has some exertional dyspnea when she tried to walk in the hallway today. No other new complaints. No basal crepitation or wheezing on examination Only mild bilateral leg edema. Patient remains on IV Lasix 20 mg twice daily and Eliquis 10 mg twice daily. Back to normal today at 9.8, rest of labs and vitals looks stable Objective - Vital Signs Vital signs: Vital Signs Temp 98.1 F 03/03/22 08:00 Pulse 70 03/03/22 08:00 Resp 18 03/03/22 08:00 BP 125/59 03/03/22 08:00 Pulse Ox 95 03/03/22 08:00 Intake & Output 03/02/22 03/03/22 03/03/22 18:59 06:59 18:59 Intake Total 420 240 Output Total 1600 1750 500 Balance -1180 -1750 -260 Weight 141 kg Intake: Oral 420 240 Output: Urine 1600 1750 500 Other: Voiding Method External Catheter External Catheter - Exam -GENERAL: The patient is alert and oriented x3, not in any acute distress. Morbid obesity HEENT: Pupils are round and equally reacting to light. EOMI. No scleral icterus. No conjunctival pallor. Normocephalic, atraumatic. No pharyngeal erythema. No thyromegaly. CARDIOVASCULAR: S1 and S2 present. No murmurs, rubs, or gallops. PULMONARY: Chest is clear to auscultation, no wheezing or crackles. ABDOMEN: Soft, nontender, nondistended, normoactive bowel sounds. No palpable organomegaly. MUSCULOSKELETAL: No joint swelling or deformity. -EXTREMITIES: No cyanosis, clubbing, mild bilateral patella getting NEUROLOGICAL: Gross neurological examination did not reveal any focal deficits. SKIN: No rashes. no petechiae. - Labs CBC & Chem 7: 03/03/22 12:35 03/03/22 12:35 Assessment and Plan Assessment: Acute bilateral pulmonary emboli with right ventricular strain status post pacemaker effusion using EKG CATHETER. Elevated troponin secondary to above A. fib with RVR, currently sinus rhythm Moderate to severe L3 to L4 spinal stenosis, no back pain and patient at baseline. Plan: This is a pleasant 72 years old female who presents with PE and fluid overload Continue with the Eliquis Continue with IV Lasix Cardiology and pulmonary team of the case Continue with metoprolol and amiodarone per inventory control supervisor Labs and medication were reviewed.. Continue same treatment. Continue with symptomatic treatment. Resume home medication. Monitor lytes and vitals. DVT and GI prophylaxis. Further recommendations as per clinical course of the patient DVT prophylaxis: Eliquis GI Prophylaxis: Ppi PT/OT: Pending, ordered
--- NOTE | 2022-03-03 14:41 | P.PN ---
Subjective Progress Note Date: 03/03/22 Patient is a pleasant 72-year-old female with only medical history of orthopedic issues. She does not follow with a drafter topographical regularly. She presents secondary to worsening shortness breath over the last 2-3 weeks. CTA revealed bilateral Pulmonary embolism with RV strain. Echocardiogram revealed EF 5560 percent, grade 2 diastolic dysfunction, RV systolic dysfunction, right ventricular overload and or elevated right ventricular end diastolic pressure, severe tricuspid regurgitation, severe pulmonary hypertension with RVSP of 75 mg of mercury. On 02/25/2022, she underwent EKOS procedure. On 02/27/2022, patient developed atrial fibrillation with RVR was initiated on Cardizem and HR were not controlled. She was then started on IV amiodarone. She converted back to sinus mechanism and maintained sinus mechanism. Transition to PO amiodarone She has been transferred out of the ICU. She is on Eliquis 10mg BID. She is feeling well. No acute events overnight. She is maintaining sinus mechanism. Vital signs are stable. She's currently maintained on aspirin 81 mg daily, atorvastatin 80 mg nightly, IV Lasix 20 mg twice a day, metoprolol titrate 50 mg twice a day, amiodarone 200 mg TID 03/03/2022 Patient is seen today on the cardiac stepdown unit. Patient is maintained on eliquis, amiodarone tapering dose and Lopressor which have all been sent to her pharmacy. phototypesetting equipment monitor is sinus rhythm. Heart rate remains in the 50s to 70s, blood pressure 135/62, pulse ox 97% on room air. BUN 25 creatinine 0.99 and potassium 3.8. CBC is unremarkable. PHYSICAL EXAMINATION Vital signs reviewed. CONSTITUTIONAL: No apparent distress HEENT: Neck Supple. No JVD. CHEST EXAMINATION: Lungs are clear to auscultation. No chest wall tenderness is noted on palpation or with deep breathing. HEART EXAMINATION: Regular rate and rhythm. S1, S2 heard. No murmurs, gallops or rub. ABDOMEN: Soft, nontender. Positive bowel sounds. EXTREMITIES: 2+ peripheral pulses, 1+ lower extremity edema and no calf tenderness. NEUROLOGIC EXAMINATION: Patient is awake, alert and oriented x3. ASSESSMENT Acute oxygen-dependent respiratory failure related to pulmonary embolism Submassive bilateral pulmonary embolism with RV strain Status post EKOS procedure on 02/25/2022 Paroxysmal atrial fibrillation [id number] score 2, on Eliquis Non-STEMI likely related to pulmonary embolism Chest pain related to pulmonary embolism PLAN From a cardiology perspective patient is stable. Continue amiodarone taper Continue Eliquis anticoagulation Continue metoprolol tartrate and statin Patient is cleared from cardiology for discharge Follow up outpatient with Dr. Sylvester Nurse practitioner note has been reviewed by physician. Signing provider agrees with the documented findings, assessment, and plan of care. Objective - Vital Signs Vital signs: Vital Signs Temp 98.1 F 03/03/22 08:00 Pulse 70 03/03/22 08:00 Resp 18 03/03/22 08:00 BP 125/59 03/03/22 08:00 Pulse Ox 95 03/03/22 08:00 Intake & Output 03/02/22 03/03/22 03/03/22 18:59 06:59 18:59 Intake Total 420 240 Output Total 1600 1750 1400 Balance -1180 -1750 -1160 Weight 141 kg Intake: Oral 420 240 Output: Urine 1600 1750 1400 Other: Voiding Method External Catheter External Catheter - Labs CBC & Chem 7: 03/03/22 12:35 03/03/22 12:35
[2022-03-03] MEDS: ASPIRIN 81 MG PO SCH (21:00)
[2022-03-03] MEDS: ATORVASTATIN 80 MG TAB PO SCH (21:01)
[2022-03-03] MEDS ORDERED: MELATONIN 5 MG TABLET PO PRN (23:07)
[2022-03-04] MEDS: PANTOPRAZOLE 40 MG TABLET PO SCH (06:07)
[2022-03-04] MEDS: LEVOTHYROXINE 75 MCG TAB PO SCH (06:07)
[2022-03-04] MEDS: FUROSEMIDE 10 MG/ML 2 ML VIAL IV SCH ×2 (08:05→20:34)
[2022-03-04] MEDS: METOPROLOL TARTRATE 50 MG TAB PO SCH ×2 (08:06→20:34)
[2022-03-04] MEDS: AMIODARONE 200 MG TAB PO SCH ×3 (08:06→20:34)
[2022-03-04] MEDS: APIXABAN 5 MG TAB PO SCH ×2 (08:06→20:34)
--- NOTE | 2022-03-04 12:28 | P.PN ---
Subjective Progress Note Date: 03/04/22 Patient is a pleasant 72-year-old female with only medical history of orthopedic issues. She does not follow with a diesel stationary engineer regularly. She presents secondary to worsening shortness breath over the last 2-3 weeks. CTA revealed bilateral Pulmonary embolism with RV strain. Echocardiogram revealed EF 5560 percent, grade 2 diastolic dysfunction, RV systolic dysfunction, right ventricular overload and or elevated right ventricular end diastolic pressure, severe tricuspid regurgitation, severe pulmonary hypertension with RVSP of 75 mg of mercury. On 02/25/2022, she underwent EKOS procedure. On 02/27/2022, patient developed atrial fibrillation with RVR was initiated on Cardizem and HR were not controlled. She was then started on IV amiodarone. She converted back to sinus mechanism and maintained sinus mechanism. Transition to PO amiodarone She has been transferred out of the ICU. She is on Eliquis 10mg BID. She is feeling well. No acute events overnight. She is maintaining sinus mechanism. Vital signs are stable. She's currently maintained on aspirin 81 mg daily, atorvastatin 80 mg nightly, IV Lasix 20 mg twice a day, metoprolol titrate 50 mg twice a day, amiodarone 200 mg TID 03/03/2022 Patient is seen today on the cardiac stepdown unit. Patient is maintained on eliquis, amiodarone tapering dose and Lopressor which have all been sent to her pharmacy. ekg monitor is sinus rhythm. Heart rate remains in the 50s to 70s, blood pressure 135/62, pulse ox 97% on room air. BUN 25 creatinine 0.99 and potassium 3.8. CBC is unremarkable. 03/04/2022 Patient has no new concerns. She denies any shortness of breath and no chest pain. She is on room air. Edema is improved. Her cardiac medications have been sent to her pharmacy on Saturday. No change in medication. No new blood work. PHYSICAL EXAMINATION Vital signs reviewed. CONSTITUTIONAL: No apparent distress HEENT: Neck Supple. No JVD. CHEST EXAMINATION: Lungs are clear to auscultation. No chest wall tenderness is noted on palpation or with deep breathing. HEART EXAMINATION: Regular rate and rhythm. S1, S2 heard. No murmurs, gallops or rub. ABDOMEN: Soft, nontender. Positive bowel sounds. EXTREMITIES: 2+ peripheral pulses, 1+ lower extremity edema and no calf te nderness. NEUROLOGIC EXAMINATION: Patient is awake, alert and oriented x3. ASSESSMENT Acute oxygen-dependent respiratory failure related to pulmonary embolism Submassive bilateral pulmonary embolism with RV strain Status post EKOS procedure on 02/25/2022 Paroxysmal atrial fibrillation [id number] score 2, on Eliquis Non-STEMI likely related to pulmonary embolism Chest pain related to pulmonary embolism PLAN From a cardiology perspective patient is stable. Continue amiodarone taper Continue Eliquis anticoagulation Continue metoprolol tartrate and statin Patient is cleared from cardiology for discharge Follow up outpatient with Dr. Sylvester Nurse practitioner note has been reviewed by physician. Signing provider agrees with the documented findings, assessment, and plan of care. Objective - Vital Signs Vital signs: Vital Signs Temp 97.8 F 03/04/22 08:11 Pulse 57 L 03/04/22 08:11 Resp 18 03/04/22 08:11 BP 118/57 03/04/22 08:11 Pulse Ox 97 03/04/22 08:11 Intake & Output 03/03/22 03/04/22 03/04/22 18:59 06:59 18:59 Intake Total 600 1480 120 Output Total 2000 1800 800 Balance -1400 -320 -680 Intake: Oral 600 1480 120 Output: Urine 2000 1800 800 Other: Voiding Method External Catheter External Catheter External Catheter # Bowel Movements 1 - Labs CBC & Chem 7: 03/03/22 12:35 03/03/22 12:35 Labs: Abnormal Lab Results - Last 24 Hours (Table) 03/03/22 Range/Units 12:35 Chloride 97 L (98-107) mmol/L Carbon Dioxide 36 H (22-30) mmol/L BUN 25 H (7-17) mg/dL Glucose 117 H (74-99) mg/dL Total Bilirubin 1.4 H (0.2-1.3) mg/dL Albumin 3.4 L (3.5-5.0) g/dL
--- NOTE | 2022-03-04 12:29 | P.PN ---
Subjective Progress Note Date: 03/04/22 This is a 72-year-old female patient was being seen in follow-up in the intensive care unit. The patient is being seen in follow-up on 02/26/2022. The patient is post intra-arterial thrombolytic therapy for pulmonary embolism. The patient is status post EKOS and the patient completed TPA treatment and the patient remains on IV heparin. The plan is to switch this patient to oral anticoagulation today. The patient is hemodynamically stable. The patient is not having any chest pain. No significant shortness of breath. The patient does have some edema lower extremities bilaterally and a Doppler of the lower extremity was negative for DVT. The patient otherwise has no respiratory distress. The patient will be taken off the IV heparin and patient is going to be started on Eliquis 10 mg by mouth twice a day. Cardiac rhythm is sinus. No significant tachycardia. Echo showed evidence of RV strain with right ventricular systolic pressure of around 75 mmHg. Left a ejection fraction was within normal with an EF of around 55%. Note that the patient had a run of atrial fibrillation that lasted for about 30 seconds rate of 1:30 and the patient's current cardiac rhythm is back to sinus. She is currently on 8 L of oxygen by nasal cannula. Noted the patient was on a nonrebreather and later on she was weaned down to 10 L and currently she is on 8 L. On today's evaluation of 02/27/2022, Mariel is on 6 L about 2 by nasal cannula. She is being treated with anticoagulants regarding her pulmonary embolism and the patient is currently post EKOS, and the patient remains on anticoagulation with Eliquis 10 mg by mouth twice a day. At the same time, the patient went into atrial fibrillation with rapid ventricular response late in the afternoon yesterday. The patient was started on Cardizem drip which is up to 15 mg an hour and the patient is also on metoprolol 12.5 mg by mouth twice a day. Cardiology is on the case regarding this ongoing atrial fibrillation. The patient's blood pressure is soft. She is not requiring any pressors pH continues to have extensive edema in lower extremity is bilaterally. She was given IV Lasix yesterday. Doppler of the lower extremity 7 negative. Echocardiac Dejuan shown significant pulmonary hypertension and the PA pressure is 75. The patient also had severe tricuspid regurgitation. 02/28/2022, the patient remains in intensive care unit. We noticed that the IV line in the left upper extremity is infiltrated and that is why probably the patient wasn't having adequate control at atrial fibrillation. This morning, the patient continues to be in A. fib with RVR. Heart rate is around 120. The patient is on amiodarone at 0.5 mg per minute and the patient is off Cardizem for now. The patient is also receiving metoprolol 12.5 mg twice a day. Noted the patient's blood pressure is rather soft at this point in time. At the same time, the patient is being diuresed with IV Lasix. The patient is sitting very 20 mg IV every 12 hours and the patient is a negative fluid balance of around 2.6 L over the past 24 hours and she is having improvement in lower oximetry swelling. The patient has no chest pain. The patient is currently on oxygen and she is on 3 L by nasal cannula. She remains on antibiotic ventilation with Eliquis. CAT scan of the abdomen and pelvis was done and showed no evidence of any intra-abdominal masses. There was diverticulosis without diverticulitis and there was lumbar spinal stenosis and degenerative arthritis. 03/01/2022, I'm seeing the patient for a follow-up. Slightly improved compared to yesterday. Continue to diurese with IV Lasix and the patient has produced a negative fluid balance of 2.4 L over the past 24 hours. The patient is currently on 4 L O2 nasal cannula. Creatinine is 0.8 with a BUN of 18. The white cell count is at 11.2 with a hemoglobin of 13.4. The patient is currently on amiodarone 0.5 mg per minute and the heart rate is under better control although it still tachycardic. Based on that, the Lopressor was increased to 25 mg twice a day to 50 mg twice a day for better rate control. She remains on anticoagulation with Eliquis. She is still having some shortness of breath. Nevertheless, no interval worsening in her oxygenation. The patient is still on 2 L O2 nasal cannula. No nausea. No vomiting. No pleurisy. No chest pain. Doppler of the lower extremity was negative. CAT scan of the abdomen and pelvis showed no pelvic or abdominal masses. Echo of the heart showed significant pulmonary hypertension with a PA pressure of 75. The patient has completed catheter guided thrombolytic therapy with EKOS On 03/02/2022 patient seen in follow-up on selective care unit. She is up comfortably in bed, breathing comfortably, room air pulse ox is 96-99%. She is currently in sinus mechanism, she remains on metoprolol 50 mg twice daily, oral amiodarone 200 mg 3 times daily and oral anticoagulation in the form of Eliquis was 10 mg twice daily, patient is status post equals catheter placement for intra-arterial thrombolytic therapy for pulmonary embolism. She also remains on IV diuretics with Lasix 20 mg every 12 hours, she is in negative fluid balance, her lower extremity edema is improving. Today's lab 7 reviewed, white blood cell count is 11.2, hemoglobin is 13.4, electrolyte and renal profile were unremarkable. No worsening dyspnea or hypoxia, no complaints of chest discomfort. 03/03/2022, Mariel is feeling well. She is a negative fluid balance and she has produced another 2 L of negative for Bence over the past 24 hours as the patient is currently on Lasix 20 mg IV every 12 hours. Lower extremity edema is improving pH is on room air oxygen. She remains on Eliquis systemic vascular twice a day. No bleeding complications. No syncope shortness of breath and she is sitting up on a recliner. No nausea. No vomiting. No diarrhea. No abdominal pain. No chest pain. Meanwhile, the patient's white cell count from few days ago was 11.2 with hemoglobin 15.4 had no new labs available from today. 03/04/2022, the patient is doing extremely good and the patient is being diurese IV Lasix and the patient has developed significant negative fluid balance over the past 24 hours. She is reporting marked improvement in lower extremity edema. She remains on Lasix 20 mg IV every 12 hours. We have made a commitment to diurese this patient here in the hospital as long as she is seeing significan t improvement. Her oxygenation is stable. The patient remains articulation with Eliquis. The patient remains hemodynamically stable. Awaiting labs from today. She is currently on room air oxygen. No angina. No palpitation. No pleurisy. No hemoptysis. Objective - Vital Signs Vital signs: Vital Signs Temp 97.8 F 03/04/22 08:11 Pulse 54 L 03/04/22 12:00 Resp 18 03/04/22 12:00 BP 130/69 03/04/22 12:00 Pulse Ox 92 L 03/04/22 12:00 Intake & Output 03/03/22 03/04/22 03/04/22 18:59 06:59 18:59 Intake Total 600 1480 120 Output Total 1999 1800 800 Balance -1400 -320 -680 Intake: Oral 600 1480 120 Output: Urine 1999 1800 800 Other: Voiding Method External Catheter External Catheter External Catheter # Bowel Movements 1 - Exam GENERAL EXAM: Alert, very pleasant, 72-year-old white female, on room air with pulse ox of 94-96% comfortable in no apparent distress. HEAD: Normocephalic/atraumatic. EYES: Normal reaction of pupils, equal size. Conjunctiva pink, sclera white. NOSE: Clear with pink turbinates. THROAT: No erythema or exudates. NECK: No masses, no JVD, no thyroid enlargement, no adenopathy. CHEST: No chest wall deformity. Symmetrical expansion. LUNGS: Equal air entry with no crackles, wheeze, rhonchi or dullness. CVS: Regular rate and rhythm, normal S1 and S2, no gallops, no murmurs, no rubs ABDOMEN: Soft, nontender. No hepatosplenomegaly, normal bowel sounds, no guarding or rigidity. EXTREMITIES: No clubbing, 2+ lower extremity edema, no cyanosis, 2+ pulses and upper and lower extremities. MUSCULOSKELETAL: Muscle strength and tone normal. SPINE: No scoliosis or deformity SKIN: No rashes CENTRAL NERVOUS SYSTEM: Alert and oriented -3. No focal deficits, tone is normal in all 4 extremities. PSYCHIATRIC: Alert and oriented -3. Appropriate affect. Intact judgment and insight. - Labs CBC & Chem 7: 03/03/22 12:35 03/03/22 12:35 Labs: Abnormal Lab Results - Last 24 Hours (Table) 03/03/22 Range/Units 12:35 Chloride 97 L (98-107) mmol/L Carbon Dioxide 36 H (22-30) mmol/L BUN 25 H (7-17) mg/dL Glucose 117 H (74-99) mg/dL Total Bilirubin 1.4 H (0.2-1.3) mg/dL Albumin 3.4 L (3.5-5.0) g/dL Assessment and Plan Plan: Assessment: Acute hypoxic respiratory failure, shortness of breath related to submassive bilateral pulmonary emboli with CT evidence suggesting right ventricular strain, status post EKOS catheter placement and alteplase infusion on 02/25/2022, recovered and the patient is breathing much easier and the patient is currently on room air oxygen. Elevated troponins related to the above Lower extremity edema, no evidence of DVT on lower extremity Dopplers, currently on Lasix much improved and the patient remains in a negative fluid balance Recent sinus infection Osteoarthritis Hypertension Hyperlipidemia Nonsmoker Morbid obesity with BMI of 49.1 kg/m Recent sinus infection A. fib with RVR, currently back in sinus mechanism, has been transitioned to oral amiodarone, metoprolol, and remains on Eliquis Plan: Continue anticoagulation with Eliquis Patient is currently on room air oxygen Cardiac rhythm is sinus Continue IV Lasix for another 24 hours as the patient remains a negative fluid balance of 2.9 L from yesterday another 1.7 L for today. Marked improvement in lower extremity edema Monitor renal function and electrolytes Potential discharge in the next 24 hours, made a commitment to discharge this patient home tomorrow after adequate diuresis Patient is off the supplement oxygen, currently on room air oxygen She is back in sinus mechanism Hemodynamically stable Vital signs have been stable Continues with the generalized edema which is improving
--- NOTE | 2022-03-04 13:14 | P.PN ---
Subjective This is a pleasant 72 years old female with multiple medical problems presents with dyspnea found to have bilateral pulmonary embolism on CTA of the chest with evidence of ventricular straight which is also seen on echocardiogram as paradoxical movement of interventricular septum which is a sign of increased intraventricular pressure or volume. Patient evaluated by pulmonary and cardiology service and she underwent EKOS catheter placement with alteplase infusion. Currently she is breathing comfort and she kept on Eliquis 10 mg twice daily. Also she has some evidence of fluid overload with bilateral leg edema and she is covered with IV Lasix 20 mg twice daily. Hemodynamically stable. WBC is 11.2. Liver enzymes mildly elevated. She has evidence of A. fib which is wished to sinus rhythm and she is kept on Eliquis amiodarone and metoprolol She has evidence of severe L3 to L4 spinal stenosis. However she denies any back pain and she's working at baseline with a walker for several months now. 03/03/2022 Clinically doing well, she denies chest pain, she has some exertional dyspnea when she tried to walk in the hallway today. No other new complaints. No basal crepitation or wheezing on examination Only mild bilateral leg edema. Patient remains on IV Lasix 20 mg twice daily and Eliquis 10 mg twice daily. Back to normal today at 9.8, rest of labs and vitals looks stable 03/04/2022 Patient clinically improving, she is less leg edema. She remains on IV Lasix 20 mg twice daily for another 24 hours. She slept well after received melatonin 5 mg at bedtime yesterday. PT/OT requested for tomorrow. Continue on Eliquis and IV Lasix Possible discharge in 24-48 hours if she remains stable and improving Objective - Vital Signs Vital signs: Vital Signs Temp 97.8 F 03/04/22 08:11 Pulse 57 L 03/04/22 08:11 Resp 18 03/04/22 08:11 BP 118/57 03/04/22 08:11 Pulse Ox 97 03/04/22 08:11 Intake & Output 03/03/22 03/04/22 03/04/22 18:59 06:59 18:59 Intake Total 600 1480 120 Output Total 2000 1800 800 Balance -1400 -320 -680 Intake: Oral 600 1480 120 Output: Urine 2000 1800 800 Other: Voiding Method External Catheter External Catheter External Catheter # Bowel Movements 1 - Exam -GENERAL: The patient is alert and oriented x3, not in any acute distress. Morbid obesity HEENT: Pupils are round and equally reacting to light. EOMI. No scleral icterus. No conjunctival pallor. Normocephalic, atraumatic. No pharyngeal erythema. No thyromegaly. CARDIOVASCULAR: S1 and S2 present. No murmurs, rubs, or gallops. PULMONARY: Chest is clear to auscultation, no wheezing or crackles. ABDOMEN: Soft, nontender, nondistended, normoactive bowel sounds. No palpable organomegaly. MUSCULOSKELETAL: No joint swelling or deformity. -EXTREMITIES: No cyanosis, clubbing, mild bilateral patella getting NEUROLOGICAL: Gross neurological examination did not reveal any focal deficits. SKIN: No rashes. no petechiae. - Labs CBC & Chem 7: 03/03/22 12:35 03/03/22 12:35 Labs: Abnormal Lab Results - Last 24 Hours (Table) 03/03/22 Range/Units 12:35 Chloride 97 L (98-107) mmol/L Carbon Dioxide 36 H (22-30) mmol/L BUN 25 H (7-17) mg/dL Glucose 117 H (74-99) mg/dL Total Bilirubin 1.4 H (0.2-1.3) mg/dL Albumin 3.4 L (3.5-5.0) g/dL Assessment and Plan Assessment: Acute bilateral pulmonary emboli with right ventricular strain status post pacemaker effusion using EKG CATHETER. Elevated troponin secondary to above A. fib with RVR, currently sinus rhythm Moderate to severe L3 to L4 spinal stenosis, no back pain and patient at baseline. Plan: This is a pleasant 72 years old female who presents with PE and fluid overload Continue with the Eliquis Continue with IV Lasix Cardiology and pulmonary team of the case Continue with metoprolol and amiodarone per speech pathologist assistant Labs and medication were reviewed.. Continue same treatment. Continue with symptomatic treatment. Resume home medication. Monitor lytes and vitals. DVT and GI prophylaxis. Further recommendations as per clinical course of the patient DVT prophylaxis: Eliquis GI Prophylaxis: Ppi PT/OT: Pending, ordered Dr. Greene team will resume the care of the patient tomorrow
[2022-03-04] MEDS: ASPIRIN 81 MG PO SCH (20:34)
[2022-03-04] MEDS: ATORVASTATIN 80 MG TAB PO SCH (20:34)
[2022-03-05] MEDS: LEVOTHYROXINE 75 MCG TAB PO SCH (06:19)
[2022-03-05] MEDS: PANTOPRAZOLE 40 MG TABLET PO SCH (06:19)
[2022-03-05 08:11] VITALS: RESP 18
[2022-03-05] MEDS: METOPROLOL TARTRATE 50 MG TAB PO SCH (08:48)
[2022-03-05] MEDS: FUROSEMIDE 10 MG/ML 2 ML VIAL IV SCH (08:48)
[2022-03-05] MEDS: AMIODARONE 200 MG TAB PO SCH ×2 (08:48→16:52)
[2022-03-05 11:46] VITALS: BP 120/66; PULSE 47; TEMP 98
[2022-03-05] MEDS ORDERED: APIXABAN 5 MG TAB PO SCH (14:00)
--- NOTE | 2022-03-05 15:49 | P.PN ---
Subjective Progress Note Date: 03/05/22 Principal diagnosis: Shortness of breath This is a 72-year-old female patient was being seen in follow-up in the intensive care unit. The patient is being seen in follow-up on 02/26/2022. The patient is post intra-arterial thrombolytic therapy for pulmonary embolism. The patient is status post EKOS and the patient completed TPA treatment and the patient remains on IV heparin. The plan is to switch this patient to oral anticoagulation today. The patient is hemodynamically stable. The patient is not having any chest pain. No significant shortness of breath. The patient does have some edema lower extremities bilaterally and a Doppler of the lower extremity was negative for DVT. The patient otherwise has no respiratory distress. The patient will be taken off the IV heparin and patient is going to be started on Eliquis 10 mg by mouth twice a day. Cardiac rhythm is sinus. No significant tachycardia. Echo showed evidence of RV strain with right ventricular systolic pressure of around 75 mmHg. Left a ejection fraction was within normal with an EF of around 55%. Note that the patient had a run of atrial fibrillation that lasted for about 30 seconds rate of 1:30 and the patient's current cardiac rhythm is back to sinus. She is currently on 8 L of oxygen by nasal cannula. Noted the patient was on a nonrebreather and later on she was weaned down to 10 L and currently she is on 8 L. On today's evaluation of 02/27/2022, Mariel is on 6 L about 2 by nasal cannula. She is being treated with anticoagulants regarding her pulmonary embolism and the patient is currently post EKOS, and the patient remains on anticoagulation with Eliquis 10 mg by mouth twice a day. At the same time, the patient went into atrial fibrillation with rapid ventricular response late in the afternoon yesterday. The patient was started on Cardizem drip which is up to 15 mg an hour and the patient is also on metoprolol 12.5 mg by mouth twice a day. Cardiology is on the case regarding this ongoing atrial fibrillation. The patient's blood pressure is soft. She is not requiring any pressors pH continues to have extensive edema in lower extremity is bilaterally. She was given IV Lasix yesterday. Doppler of the lower extremity 7 negative. Echocardiac Dejuan shown significant pulmonary hypertension and the PA pressure is 75. The patient also had severe tricuspid regurgitation. 02/28/2022, the patient remains in intensive care unit. We noticed that the IV line in the left upper extremity is infiltrated and that is why probably the patient wasn't having adequate control at atrial fibrillation. This morning, the patient continues to be in A. fib with RVR. Heart rate is around 120. The patient is on amiodarone at 0.5 mg per minute and the patient is off Cardizem for now. The patient is also receiving metoprolol 12.5 mg twice a day. Noted the patient's blood pressure is rather soft at this point in time. At the same time, the patient is being diuresed with IV Lasix. The patient is sitting very 20 mg IV every 12 hours and the patient is a negative fluid balance of around 2.6 L over the past 24 hours and she is having improvement in lower oximetry swelling. The patient has no chest pain. The patient is currently on oxygen and she is on 3 L by nasal cannula. She remains on antibiotic ventilation with Eliquis. CAT scan of the abdomen and pelvis was done and showed no evidence of any intra-abdominal masses. There was diverticulosis without diverticulitis and there was lumbar spinal stenosis and degenerative arthritis. 03/01/2022, I'm seeing the patient for a follow-up. Slightly improved compared to yesterday. Continue to diurese with IV Lasix and the patient has produced a negative fluid balance of 2.4 L over the past 24 hours. The patient is currently on 4 L O2 nasal cannula. Creatinine is 0.8 with a BUN of 18. The white cell count is at 11.2 with a hemoglobin of 13.4. The patient is currently on amiodarone 0.5 mg per minute and the heart rate is under better control although it still tachycardic. Based on that, the Lopressor was increased to 25 mg twice a day to 50 mg twice a day for better rate control. She remains on anticoagulation with Eliquis. She is still having some shortness of breath. Nevertheless, no interval worsening in her oxygenation. The patient is still on 2 L O2 nasal cannula. No nausea. No vomiting. No pleurisy. No chest pain. Doppler of the lower extremity was negative. CAT scan of the abdomen and pelvis showed no pelvic or abdominal masses. Echo of the heart showed significant pulmonary hypertension with a PA pressure of 75. The patient has completed catheter guided thrombolytic therapy with EKOS On 03/02/2022 patient seen in follow-up on selective care unit. She is up comfortably in bed, breathing comfortably, room air pulse ox is 96-99%. She is currently in sinus mechanism, she remains on metoprolol 50 mg twice daily, oral amiodarone 200 mg 3 times daily and oral anticoagulation in the form of Levaquin was 10 mg twice daily, patient is status post equals catheter placement for intra-arterial thrombolytic therapy for pulmonary embolism. She also remains on IV diuretics with Lasix 20 mg every 12 hours, she is in negative fluid balance, her lower extremity edema is improving. Today's lab 7 reviewed, white blood cell count is 11.2, hemoglobin is 13.4, electrolyte and renal profile were unremarkable. No worsening dyspnea or hypoxia, no complaints of chest discomfort. On 03/05/2022 patient seen in follow-up on selective care unit. She is sitting up in a chair, breathing comfortably, room air pulse ox is 95%, has some mild exertional dyspnea but no acute distress, she's been tolerating ambulation in the room, -7 stable, blood pressure is been stable, no worsening dyspnea no chest discomfort. Was started on Eliquis following EKOS procedure. His labs have been reviewed, white blood cell count is 9.8, hemoglobin is 14.9, sodium is 139, potassium is 3.8, chloride is 97, CO2 37, B1 is 25 creatinine 0.9. She's had no acute events overnight. Lower extremity edema is improving. Patient has been diuresed. Anticipate discharge home today Objective - Vital Signs Vital signs: Vital Signs Temp 98 F 03/05/22 11:42 Pulse 47 L 03/05/22 14:00 Resp 18 03/05/22 14:00 BP 120/66 03/05/22 11:42 Pulse Ox 95 03/05/22 11:42 Intake & Output 03/04/22 03/05/22 03/05/22 18:59 06:59 18:59 Intake Total 720 320 240 Output Total 800 1600 1550 Balance -80 -1280 -1310 Weight 136.8 kg Intake: Oral 720 320 240 Output: Urine 800 1600 1550 Other: Voiding Method External Catheter - Exam GENERAL EXAM: Alert, very pleasant, 72-year-old white female, on room air with pulse ox of 95% comfortable in no apparent distress. HEAD: Normocephalic/atraumatic. EYES: Normal reaction of pupils, equal size. Conjunctiva pink, sclera white. NOSE: Clear with pink turbinates. THROAT: No erythema or exudates. NECK: No masses, no JVD, no thyroid enlargement, no adenopathy. CHEST: No chest wall deformity. Symmetrical expansion. LUNGS: Equal air entry with no crackles, wheeze, rhonchi or dullness. CVS: Regular rate and rhythm, normal S1 and S2, no gallops, no murmurs, no rubs ABDOMEN: Soft, nontender. No hepatosplenomegaly, normal bowel sounds, no guarding or rigidity. EXTREMITIES: No clubbing, 2+ lower extremity edema, no cyanosis, 2+ pulses and upper and lower extremities. MUSCULOSKELETAL: Muscle strength and tone normal. SPINE: No scoliosis or deformity SKIN: No rashes CENTRAL NERVOUS SYSTEM: Alert and oriented -3. No focal deficits, tone is normal in all 4 extremities. PSYCHIATRIC: Alert and oriented -3. Appropriate affect. Intact judgment and insight. - Labs CBC & Chem 7: 03/03/22 12:35 03/03/22 12:35 Assessment and Plan Plan: Assessment: Acute hypoxic respiratory failure, shortness of breath related to submassive bilateral pulmonary emboli with CT evidence suggesting right ventricular strain, status post EKOS catheter placement and alteplase infusion on 02/25/2022 Elevated troponins related to the above Lower extremity edema, no evidence of DVT on lower extremity Dopplers, improving with diuresis Recent sinus infection Osteoarthritis Hypertension Hyperlipidemia Nonsmoker Morbid obesity with BMI of 49.1 kg/m Recent sinus infection A. fib with RVR, currently back in sinus mechanism, has been transitioned to oral amiodarone, metoprolol, and remains on Eliquis Plan: No acute events overnight Patient is on room air Vital signs are stable Continues on Eliquis Lower extremity edema has improved, exertional edema is improved Stable for discharge home from pulmonary perspective Outpatient follow-up with Dr. Jimenes in the office in 10 days I have personally seen and examined the patient, performed the documentation and the assessment and plan as written. Number of minutes spent on the visit: [10] Time with Patient: Less than 30
== END 2022-03-05 17:38 | disposition home or self-care (01) | DRG 166 ==
LOC: EC 07:25 → 2SICU 10:09 → 3SCARD 03-01 22:38
PROVIDERS: ADMIT Family Medicine; ATTEND Family Medicine
PROC: 02FR3Z0 Fragmentation of Left Pulmonary Artery, Percutaneous Approach, Ultrasonic (ICD-10-PCS; principal; 2022-02-25 11:44)
PROC: 02FQ3Z0 Fragmentation of Right Pulmonary Artery, Percutaneous Approach, Ultrasonic (ICD-10-PCS; principal; 2022-02-25 11:44)
PROC: 3E06317 Introduction of Other Thrombolytic into Central Artery, Percutaneous Approach (ICD-10-PCS; principal; 2022-02-25 11:44)
DX: I26.09 Other pulmonary embolism with acute cor pulmonale (principal); I21.4 Non-ST elevation (NSTEMI) myocardial infarction; J96.01 Acute respiratory failure with hypoxia; I48.19 Other persistent atrial fibrillation; J98.11 Atelectasis; N17.9 Acute kidney failure, unspecified; Z68.43 Body mass index [BMI] 50.0-59.9, adult; D72.829 Elevated white blood cell count, unspecified; E66.01 Morbid (severe) obesity due to excess calories; E78.5 Hyperlipidemia, unspecified; E87.70 Fluid overload, unspecified; F32.A Depression, unspecified; I07.1 Rheumatic tricuspid insufficiency; I10 Essential (primary) hypertension; I27.20 Pulmonary hypertension, unspecified; K57.30 Diverticulosis of large intestine without perforation or abscess without bleeding; M19.90 Unspecified osteoarthritis, unspecified site; M48.061 Spinal stenosis, lumbar region without neurogenic claudication; Z20.822 Contact with and (suspected) exposure to COVID-19; Z79.01 Long term (current) use of anticoagulants; Z79.1 Long term (current) use of non-steroidal anti-inflammatories (NSAID); Z96.641 Presence of right artificial hip joint; Z99.81 Dependence on supplemental oxygen; Z79.82 Long term (current) use of aspirin; Z79.890 Hormone replacement therapy; Z79.899 Other long term (current) drug therapy; Z87.891 Personal history of nicotine dependence; Z90.710 Acquired absence of both cervix and uterus; Z95.0 Presence of cardiac pacemaker; Z98.890 Other specified postprocedural states; Z88.0 Allergy status to penicillin; Z91.018 Allergy to other foods
CPT/HCPCS: 36410; 36415; 37213; 71045; 71046; 71275; 74177; 76937; 80048; 80053; 83605; 83735; 83880; 84132; 84439; 84443; 84484; 85025; 85379; 85384; 85610; 85730; 87635; 93005; 93306; 93970; 94760; 96365; 96366; 96375; 99291

== ENCOUNTER → 2022-04-27 | Outpatient (CLI) | payer MEDICARE, OTHER ==
--- NOTE | 2022-04-27 13:12 | CT ---
EXAMINATION TYPE: CT angio chest DATE OF EXAM: 04/27/2022 COMPARISON: CTA for pulmonary embolism February 25, 2022 HISTORY: Follow up pulmonary embolism. Abnormal CT. CT DLP: 478.9 mGycm. Automated Exposure Control for Dose Reduction was Utilized. CONTRAST: CTA scan of the thorax is performed with IV Contrast, patient injected with 74ML mL of Isovue 370, pu lmonary embolism protocol. MIP Images are created on CT scanner and reviewed. FINDINGS: LUNGS: Exam shows improved breath holding. There is elevated and eventrated anterior aspect right hem idiaphragm. Mild linear scarring in the bilateral lower lungs. Some dependent atelectasis in the base s. No suspicious consolidation. No pleural effusion or pneumothorax seen bilaterally. MEDIASTINUM: Suboptimal study with most dense contrast within the SVC or prior visualized central pul monary emboli are not clearly seen. There is no new or residual pulmonary emboli clearly identified. There are no new greater than 1 cm hilar or mediastinal lymph nodes. No pericardial effusion is see n. Persistent cardiomegaly with mild to moderate right atrial dilatation. There is new moderate to se graciela left atrial dilatation with calcified mitral valve redemonstrated. OTHER: Cholecystectomy clips are redemonstrated. Slight scoliotic curvature with moderate multilevel spurring in the spine. IMPRESSION: 1. Suboptimal study but interval clearance of bilateral pulmonary emboli. No acute pulmonary emboli c urrently. 2. Mild parenchymal scarring. No acute pulmonary infiltrate. 3. Cardiomegaly with more prominent moderate to severe left atrial dilatation. Correlate for mitral v alve stenosis.
== END | disposition home or self-care (01) ==
LOC: RADCTMAIN 11:11
PROVIDERS: ATTEND Internal Medicine Critical Care Medicine
DX: I26.99 Other pulmonary embolism without acute cor pulmonale (principal)
CPT/HCPCS: 82565; 84520; 71275; 36415; Q9967

== ENCOUNTER 2022-09-09 12:59 | Inpatient (IN) | payer MEDICARE, OTHER ==
[2022-09-09] MEDS ORDERED: DILTIAZEM DRIP BOLUS FROM BAG 1 MG SOLN IV ONE ×2 (13:07→15:14)
--- NOTE | 2022-09-09 13:11 | ED ---
Arrhythmia/Palpitations HPI - General Stated Complaint: AFib Time Seen by Provider: 09/09/22 13:00 Source: patient, EMS, RN notes reviewed Mode of arrival: EMS - History of Present Illness Initial Comments: 72-year-old female with a history of pulmonary embolism in the past also history of right knee replacement in July this year who has sudden onset prior to arrival of palpitations. She put a wrist blood pressure cuff on another pressure was elevated EMS arrived she was found have what appear to be atrial fibrillation with rapid ventricular response rate she's never had this before. She was transported here for further evaluation. She had no chest pain but she has shortness of breath. No fevers chills nausea vomiting sweats. She was given aspirin by both her and paramedics. She has never had atrial fibrillation in the past. She is currently on anticoagulation for the history of PE. MD Complaint: rapid heart beat, palpitations, irregular heart beat, atrial fibrillation - Related Data Home Medications Medication Instructions Recorded Confirmed Atorvastatin [Lipitor] 80 mg PO HS 02/25/22 02/25/22 Furosemide [Lasix] 20 mg PO DAILY 02/25/22 02/25/22 Levothyroxine Sodium [Synthroid] 75 mcg PO DAILY 02/25/22 02/25/22 Meloxicam [Mobic] 15 mg PO DAILY 02/25/22 02/25/22 Previous Rx's Medication Instructions Recorded Amiodarone [Cordarone] 200 mg PO TID 40 Days #80 tab 03/02/22 Apixaban [Eliquis] 10 mg PO BID 90 Days #180 tab 03/02/22 Metoprolol Tartrate [Lopressor] 50 mg PO BID 60 Days #120 tab 03/02/22 Allergies Allergy/AdvReac Type Severity Reaction Status Date / Time Penicillins Allergy Rash/Hives Verified 09/09/22 13:10 @ Allergy testing site strawberry Allergy Rash/Hives Verified 09/09/22 13:10 all over body tramadol Allergy Unknown Verified 09/09/22 13:10 Review of Systems ROS Statement: Those systems with pertinent positive or pertinent negative responses have been documented in the HPI. ROS Other: All systems not noted in ROS Statement are negative. Past Medical History Past Medical History: Hyperlipidemia, Hypertension Additional Past Medical History / Comment(s): PE bilateral with EKOS 02/2022 History of Any Multi-Drug Resistant Organisms: None Reported Past Surgical History: Cholecystectomy, Hysterectomy Additional Past Surgical History / Comment(s): Pt states she had a rt hip replacement 20 years ago Past Anesthesia/Blood Transfusion Reactions: No Reported Reaction Past Psychological History: No Psychological Hx Reported Smoking Status: Former smoker Past Alcohol Use History: None Reported Past Drug Use History: None Reported General Exam - General Exam Comments Initial Comments: This is a well-developed well-nourished awake alert oriented 4 female General appearance: alert, anxious Head exam: Present: atraumatic, normocephalic, normal inspection Eye exam: Present: normal appearance, PERRL, EOMI. Absent: scleral icterus, conjunctival injection, periorbital swelling ENT exam: Present: normal exam, mucous membranes moist Neck exam: Present: normal inspection, full ROM, other. Absent: tenderness, meningismus, lymphadenopathy Respiratory exam: Present: decreased breath sounds. Absent: respiratory distress, wheezes, rales, rhonchi, stridor Cardiovascular Exam: Present: tachycardia, irregular rhythm. Absent: systolic murmur, diastolic murmur, rubs, gallop, clicks GI/Abdominal exam: Present: soft, normal bowel sounds. Absent: distended, tend erness, guarding, rebound, rigid Extremities exam: Present: full ROM, normal capillary refill. Absent: tenderness, pedal edema, joint swelling, calf tenderness Back exam: Present: normal inspection Neurological exam: Present: alert, oriented X3, CN II-XII intact Psychiatric exam: Present: normal affect, normal mood Skin exam: Present: warm, dry, intact, normal color. Absent: rash Course Vital Signs 09/09/22 09/09/22 09/09/22 13:02 13:36 13:45 Temperature 97.6 F Pulse Rate 162 H 156 H 162 H Respiratory 20 20 22 Rate Blood Pressure 153/112 112/98 108/74 O2 Sat by Pulse 97 97 98 Oximetry 09/09/22 14:00 Temperature Pulse Rate 158 H Respiratory 20 Rate Blood Pressure 104/70 O2 Sat by Pulse 99 Oximetry - Reevaluation(s) Reevaluation #1: 09/09/22 14:02 Reevaluation patient finds the heart rate trending towards a more normal level s till in A. fib RVR however the is improved by x-ray 3-40 bpm us far. Reevaluation #2: 09/09/22 15:28 Reevaluation the patient's blood pressure appears to be somewhat labile blood believe it secondary to mechanical aerosols opposed to true readings patient has been asymptomatic with respect to that the heart rate is pretty down still the patient will require IV fluids and increasing Cardizem dosage. Medical Decision Making - Lab Data Result diagrams: 09/09/22 13:12 09/09/22 13:12 Lab Results 09/09/22 09/09/22 09/09/22 Range/Units 13:12 13:12 13:12 WBC 11.9 H (3.8-10.6) k/uL RBC 4.58 (3.80-5.40) m/uL Hgb 14.4 (11.4-16.0) gm/dL Hct 44.9 (34.0-46.0) % MCV 98.2 (80.0-100.0) fL MCH 31.4 (25.0-35.0) pg MCHC 32.0 (31.0-37.0) g/dL RDW 14.0 (11.5-15.5) % Plt Count 295 (150-450) k/uL MPV 8.1 Neutrophils % 77 % Lymphocytes % 14 % Monocytes % 7 % Eosinophils % 1 % Basophils % 0 % Neutrophils # 9.2 H (1.3-7.7) k/uL Lymphocytes # 1.7 (1.0-4.8) k/uL Monocytes # 0.8 (0-1.0) k/uL Eosinophils # 0.1 (0-0.7) k/uL Basophils # 0.0 (0-0.2) k/uL Hypochromasia Moderate PT 11.8 (9.0-12.0) sec INR 1.1 (<1.2) APTT 28.5 (22.0-30.0) sec Sodium 141 (137-145) mmol/L Potassium 4.1 (3.5-5.1) mmol/L Chloride 102 (98-107) mmol/L Carbon Dioxide 24 (22-30) mmol/L Anion Gap 15 mmol/L BUN 25 H (7-17) mg/dL Creatinine 1.06 H (0.52-1.04) mg/dL Est GFR (CKD-EPI)AfAm 60 (>60 ml/min/1.73 sqM) Est GFR (CKD-EPI)NonAf 52 (>60 ml/min/1.73 sqM) Glucose 118 H (74-99) mg/dL Calcium 9.9 (8.4-10.2) mg/dL Magnesium 1.8 (1.6-2.3) mg/dL Total Bilirubin 1.5 H (0.2-1.3) mg/dL AST 23 (14-36) U/L ALT 24 (4-34) U/L Alkaline Phosphatase 135 H (38-126) U/L Troponin I (0.000-0.034) ng/mL Total Protein 7.1 (6.3-8.2) g/dL Albumin 4.5 (3.5-5.0) g/dL TSH 2.820 (0.465-4.680) mIU/L 09/09/22 Range/Units 13:12 WBC (3.8-10.6) k/uL RBC (3.80-5.40) m/uL Hgb (11.4-16.0) gm/dL Hct (34.0-46.0) % MCV (80.0-100.0) fL MCH (25.0-35.0) pg MCHC (31.0-37.0) g/dL RDW (11.5-15.5) % Plt Count (150-450) k/uL MPV Neutrophils % % Lymphocytes % % Monocytes % % Eosinophils % % Basophils % % Neutrophils # (1.3-7.7) k/uL Lymphocytes # (1.0-4.8) k/uL Monocytes # (0-1.0) k/uL Eosinophils # (0-0.7) k/uL Basophils # (0-0.2) k/uL Hypochromasia PT (9.0-12.0) sec INR (<1.2) APTT (22.0-30.0) sec Sodium (137-145) mmol/L Potassium (3.5-5.1) mmol/L Chloride (98-107) mmol/L Carbon Dioxide (22-30) mmol/L Anion Gap mmol/L BUN (7-17) mg/dL Creatinine (0.52-1.04) mg/dL Est GFR (CKD-EPI)AfAm (>60 ml/min/1.73 sqM) Est GFR (CKD-EPI)NonAf (>60 ml/min/1.73 sqM) Glucose (74-99) mg/dL Calcium (8.4-10.2) mg/dL Magnesium (1.6-2.3) mg/dL Total Bilirubin (0.2-1.3) mg/dL AST (14-36) U/L ALT (4-34) U/L Alkaline Phosphatase (38-126) U/L Troponin I <0.012 (0.000-0.034) ng/mL Total Protein (6.3-8.2) g/dL Albumin (3.5-5.0) g/dL TSH (0.465-4.680) mIU/L - EKG Data -: EKG Interpreted by Me EKG Comments: Atrial fibrillation with rapid ventricular response rate of 196 initially QRS 93 QT/QTC 208/[address] configuration - Radiology Data Radiology results: report reviewed (Imaging reviewed no evidence of acute processes.), image reviewed Critical Care Time Critical Care Time: Yes Total Critical Care Time: 35 Critical Care Time: Critical care time includes initial presentation with history physical labs x- rays also reevaluation the patient response to therapy discussed with patient family regarding findings review of old charting was available discussed with the admitting physician admission orders and documentation of the above. I did discuss case with Dr. Abraham Disposition Clinical Impression: Rapid atrial fibrillation, Dehydration Disposition: ADMITTED IP TO THIS [facility] Condition: Fair Referrals: Regulo Greene DO [Primary Care Provider] - 1-2 days Decision Date: 09/09/22 Decision Time: 15:32
[2022-09-09] MEDS ORDERED: DILTIAZEM 125 MG in SODIUM CHLORIDE 0.9% 100 ML IV SCH (13:15)
[2022-09-09 13:31] LABS: Basophils % (A) 0 %; Eosinophils # (A) 0.1 k/uL (0-0.7); Eosinophils % (A) 1 %; HCT 44.9 % (34.0-46.0); HGB 14.4 gm/dL (11.4-16.0); Hypochromasia Moderate; Lymphocytes # (A) 1.7 k/uL (1.0-4.8); Lymphocytes % (A) 14 %; MCH 31.4 pg (25.0-35.0); MCV 98.2 fL (80.0-100.0); Mean Platelet Volume 8.1; Monocytes # (A) 0.8 k/uL (0-1.0); Monocytes % (A) 7 %; Neutrophils # (A) 9.2 k/uL (1.3-7.7); Neutrophils % (A) 77 %; Platelet Count 295 k/uL (150-450); RBC 4.58 m/uL (3.80-5.40); WBC 11.9 k/uL (3.8-10.6)
[2022-09-09 13:46] LABS: Albumin 4.5 g/dL (3.5-5.0); Calcium 9.9 mg/dL (8.4-10.2); INR 1.1 (<1.2); Magnesium 1.8 mg/dL (1.6-2.3); Partial Thromboplastin Time 28.5 sec (22.0-30.0); Potassium 4.1 mmol/L (3.5-5.1); Prothrombin Time 11.8 sec (9.0-12.0); Total Bilirubin 1.5 mg/dL (0.2-1.3); Total Protein 7.1 g/dL (6.3-8.2)
--- NOTE | 2022-09-09 14:14 | XR ---
EXAMINATION TYPE: XR chest 2V DATE OF EXAM: 09/09/2022 2:05 PM COMPARISON: Chest radiographs from 02/27/2022 TECHNIQUE: XR chest 2V Frontal and lateral views of the chest. CLINICAL INDICATION:Female, 72 years old with history of dysrhythmia; FINDINGS: Lungs/Pleura: Low lung volumes are present. There is no evidence of pleural effusion, focal consolida tion, or pneumothorax. Pulmonary vascularity: Unremarkable. Heart/mediastinum: Cardiomediastinal silhouette is enlarged and stable. Musculoskeletal: No acute osseous pathology. IMPRESSION: No acute cardiopulmonary disease/process.
[2022-09-09] MEDS ORDERED: SODIUM CHLORIDE 0.9% 500 ML 500 ML IV STA (15:14)
[2022-09-09] MEDS: DILTIAZEM 125 MG in SODIUM CHLORIDE 0.9% 100 ML IV SCH ×2 (15:23→15:28)
[2022-09-09] MEDS ORDERED: ACETAMINOPHEN TAB 325 MG TAB PO PRN (15:33)
[2022-09-09] MEDS ORDERED: NALOXONE 0.4 MG/ML 1 ML VIAL IV PRN (15:33)
[2022-09-09] MEDS ORDERED: AMIODARONE 200 MG TAB PO SCH ×2 (16:00→22:00)
[2022-09-09] MEDS: SODIUM CHLORIDE 0.9% 1,000 ML IV SCH (16:49)
[2022-09-09] MEDS: METOPROLOL TARTRATE 25 MG TAB PO SCH ×2 (17:37→20:12)
[2022-09-09] MEDS ORDERED: HYDROcodone/APAP 5-325MG 1 EACH TAB PO PRN (17:41)
[2022-09-09] MEDS: APIXABAN 5 MG TAB PO SCH (20:12)
[2022-09-09] MEDS ORDERED: ATORVASTATIN 80 MG TAB PO SCH (21:00)
[2022-09-09] MEDS ORDERED: METOPROLOL TARTRATE 50 MG TAB PO SCH (21:00)
--- NOTE | 2022-09-10 03:49 | P.HPIM ---
History of Present Illness H&P Date: 09/09/22 Chief Complaint: Palpitations Patient is a 72-year-old female with a known history of hypertension, hyperlipidemia, history of bilateral PE status post EKOS in February 2022, history of A. fib with RVR. Severe pulmonary hypertension and severe TR and severely dilated right ventricle, hypothyroidism and other medical problems presents to ER with complaints of palpitations. Evidently patient was sitting in a chair and looking at her cell phone and suddenly started having palpitations. Patient felt dizzy and was able to call and call his family. Patient checked her blood pressure which was very much elevated compared not available. EMS was called and patient was found to be in atrial fibrillation with rapid regular rate. No prior history of atrial fibrillation. Patient denies any complaints of chest pain. Mild shortness of breath. Patient is currently on anticoagulation with Eliquis due to history of recent PE and also was found to have A. fib with the RVR during recent admission. Patient was also started on amiodarone and metoprolol and anticoagulation with Eliquis. Chest x-ray showed no acute cardiopulmonary process. EKG showed atrial fibrillation with rapid regular rate 196. Laboratory data showed WBC 11.9 hemoglobin 14.4 and platelets 295 INR 1.1 Sodium 141 potassium 4.1 chloride 102 bicarb is 24 BUN 25 and creatinine 1.06 and blood sugar 118 total bilirubin level is 1.5 AST 23 ALT 24 alk phos 135 TSH 2.8. Review of Systems Constitutional: Patient denies any fever or chills . no Generalized weakness. Abdomen: Patient denied any nausea or vomiting or abd. pain Cardiovascular: Patient denies any chest pain or short of breath no palpitations. No worsening leg swelling Respiratory: patient denied any cough . no sputum production. No shortness of breath Neurologic: Patient denied any numbness or tingling headache. Musculoskeletal: Patient denies any complaints of joint swelling or deformity. Skin: Negative Psychiatric: Negative Endocrine: No heat or cold intolerance. No recent weight gain. Genitourinary: No dysuria or hematuria. All other 14 point ROS negative except the above Past Medical History Past Medical History: Hyperlipidemia, Hypertension, Osteoarthritis (OA), Pulmonary Embolus (PE), Thyroid Disorder Additional Past Medical History / Comment(s): PE bilateral with EKOS 02/2022 History of Any Multi-Drug Resistant Organisms: None Reported Past Surgical History: Cholecystectomy, Hysterectomy Additional Past Surgical History / Comment(s): Pt states she had a rt hip replacement 20 years ago, right knee replacement jul 2022 Past Anesthesia/Blood Transfusion Reactions: No Reported Reaction Past Psychological History: No Psychological Hx Reported Smoking Status: Never smoker Past Alcohol Use History: None Reported Past Drug Use History: None Reported - Past Family History Father Family Medical History: AICD/Pacemaker Additional Family Medical History / Comment(s): cabg at 84 Mother Additional Family Medical History / Comment(s): non hodgkins lymphoma Medications and Allergies Home Medications Medication Instructions Recorded Confirmed Type Atorvastatin [Lipitor] 80 mg PO HS 02/25/22 09/09/22 History Metoprolol Tartrate [Lopressor] 50 mg PO BID 60 Days #120 tab 03/02/22 09/09/22 Rx Apixaban [Eliquis] 5 mg PO BID 09/09/22 09/09/22 History Furosemide [Lasix] 40 mg PO DAILY 09/09/22 09/09/22 History HYDROcodone/APAP 5-325MG [[place] 1 tab PO Q4HR PRN 09/09/22 09/09/22 History 5-325] Levothyroxine Sodium [Synthroid] 88 mcg PO DAILY 09/09/22 09/09/22 History Allergies Allergy/AdvReac Type Severity Reaction Status Date / Time Penicillins Allergy Rash/Hives Verified 09/09/22 16:53 @ Allergy testing site strawberry Allergy Rash/Hives Verified 09/09/22 16:53 all over body tramadol Allergy Unknown Verified 09/09/22 16:53 Physical Exam Vitals: Vital Signs Temp Pulse Pulse Resp BP BP Pulse Ox 09/09/22 16:56 98.2 F 72 18 126/80 98 09/09/22 16:19 160 H 20 97/64 96 09/09/22 16:00 141 H 26 H 93/61 97 09/09/22 15:30 141 H 31 H 121/84 98 09/09/22 15:00 176 H 51 H 93/81 99 09/09/22 14:30 103/91 09/09/22 14:00 158 H 20 104/70 99 09/09/22 13:45 162 H 22 108/74 98 09/09/22 13:36 156 H 20 112/98 97 09/09/22 13:02 97.6 F 162 H 20 153/112 97 Intake and Output 09/09/22 09/09/22 09/09/22 06:59 14:59 22:59 Intake Total 480 Balance 480 Intake: Oral 480 Other: Voiding Method External Catheter Weight 83.461 kg 83.461 kg PHYSICAL EXAMINATION: Patient is lying in the bed comfortably, no acute distress, awake alert and oriented.. HEENT: Normocephalic. Neck is supple. Pupils reactive. Nostrils clear. Oral cavity is moist. Neck reveals no JVD, carotid bruits, or thyromegaly. CHEST EXAMINATION: Trachea is central. Symmetrical expansion. Lung acuna clear to auscultation and percussion. CARDIAC: Normal S1, S2 with no gallops. No murmurs, irregular irregular rhythm. ABDOMEN: Soft. Bowel sounds present. Nontender. No organomegaly. No abdominal bruits. Extremities: reveal no edema. No clubbing or cyanosis Neurologically awake, alert, oriented x3 with well-coordinated movements. No focal deficits noted Skin: No rash or skin lesions. Psychiatric: Coperative. Nonsuicidal, Musculoskeletal: No joint swelling or deformity. Normal range of motion. Results CBC & Chem 7: 09/09/22 13:12 09/09/22 13:12 Labs: Abnormal Lab Results - Last 24 Hours (Table) 09/09/22 09/09/22 Range/Units 13:12 13:12 WBC 11.9 H (3.8-10.6) k/uL Neutrophils # 9.2 H (1.3-7.7) k/uL BUN 25 H (7-17) mg/dL Creatinine 1.06 H (0.52-1.04) mg/dL Glucose 118 H (74-99) mg/dL Total Bilirubin 1.5 H (0.2-1.3) mg/dL Alkaline Phosphatase 135 H (38-126) U/L Thrombosis Risk Factor Assmnt - DVT/VTE Prophylaxis DVT/VTE Prophylaxis: Pharmacologic Prophylaxis ordered - Choose All That Apply Any of the Below Risk Factors Present?: Yes Each Factor Represents 1 point: Obesity (BMI >25) Other Risk Factors: Yes Each Risk Factor Represents 2 Points: Age 61-74 years Thrombosis Risk Factor Assessment Total Risk Factor Score: 3 Thrombosis Risk Factor Assessment Level: Moderate Risk Assessment and Plan Assessment: Atrial fibrillation with rapid ventricular rate. Recent admission with acute pulmonary embolism bilaterally status post EKOS Paroxysmal atrial fibrillation on anticoagulation with Eliquis Severe pulmonary hypertension and severe TR and severely dilated right ventricle as per recent echocardiogram Hypothyroidism Hypertension Hyperlipidemia Osteoarthritis with history right knee placement in July 2022.. GI and DVT prophylaxis. Patient is already on Eliquis. Plan: Patient will be continued on Cardizem drip and continue with Eliquis dose. Patient will be started back on metoprolol and cardiology was consulted. Patient was also on amiodarone during recent discharge medications.. 2D echocardiogram to evaluate and follow-up closely. Continue with home medications and discussed with the patient and her family at bedside in detail. Prognosis is guarded. Time with Patient: Greater than 30
[2022-09-10] MEDS: DILTIAZEM 125 MG in SODIUM CHLORIDE 0.9% 100 ML IV SCH (05:46)
[2022-09-10] MEDS: SODIUM CHLORIDE 0.9% 1,000 ML IV SCH (05:46)
[2022-09-10] MEDS ORDERED: LEVOTHYROXINE 75 MCG TAB PO SCH (06:30)
[2022-09-10] MEDS ORDERED: MELOXICAM 7.5 MG TAB PO SCH (09:00)
[2022-09-10] MEDS ORDERED: FUROSEMIDE 20 MG TAB PO SCH (09:00)
--- NOTE | 2022-09-10 09:01 | P.CRDCN ---
History of Present Illness Consult date: 09/10/22 History of present illness: HISTORY OF PRESENT ILLNESS: This is a 72-year-old female with a past medical history significant for submassive massive PE with EKOS in 02/2022, paroxysmal atrial fibrillation, hypertension, hyperlipidemia, hypothyroidism, pulmonary hypertension, and chronic heart failure with preserved ejection fraction. Patient follows in the office with Dr. Sylvester. We have been asked to see the patient in consultation for A. fib with RVR. Patient examined at the bedside. Patient states she was at home getting ready for the day and sat down in her chair and was on her phone when she began to have palpitations. She states that she checked her blood pressure and it was significantly elevated as well. She had her bring her to the hospital for further evaluation. The patient was found to be in A. fib with RVR. She was started on IV Cardizem and has subsequently converted to sinus mechanism. She is maintaining sinus mechanism this morning with a heart rate around 60. She denies any chest pain or pressure. Denies shortness of breath. Denies dizziness or lightheadedness. Currently denies any palpitations . Vital signs are stable. * EKG reveals A. fib with RVR * Chest xray negative for acute process * Laboratory data: WBC 11.9. Hemoglobin 14.4. Platelet count 295. Sodium 141. Potassium 4.1. BUN 25. Creatinine 1.06. Troponin negative 1. TSH 2.820. * Current home cardiac medications include Lasix 40 mg daily, metoprolol tartrate 50mg BID, Eliquis 5mg BID, and Lipitor 80 mg daily * Most recent echocardiogram obtained in February 2020 revealed ejection fraction 55-60% REVIEW OF SYSTEMS: At the time of my exam: CONSTITUTIONAL: Denies fever or chills. HEENT: Denies blurred vision, vision changes, or eye pain. Denies hemoptysis CARDIOVASCULAR: Denies chest pain. Denies orthopnea. Denies PND. Denies palpitations RESPIRATORY: Denies shortness of breath. GASTROINTESTINAL: Denies abdominal pain. Denies nausea or vomiting. HEMATOLOGIC: Denies bleeding disorders. GENITOURINARY: Denies any blood in urine. SKIN: Denies pruitis. Denies rash. PHYSICAL EXAM: VITAL SIGNS: Reviewed. GENERAL: Well-developed in no acute distress. HEENT: Head is normocephalic. Pupils are equal, round. Sclerae anicteric. Mucous membranes of the mouth are moist. Neck supple. No JVD or thyromegaly LUNGS: Respirations even and unlabored. Lungs essentially clear to auscultation bilaterally. HEART: Regular rate and rhythm. S1 and S2 heard. ABDOMEN: Soft. Nondistended. Nontender. EXTREMITIES: Normal range of motion. No clubbing or cyanosis. Peripheral puls es intact. No lower extremity edema NEUROLOGIC: Awake and alert. Oriented x 3. ASSESSMENT: Palpitations Paroxysmal atrial fibrillation with RVR History of submassive PE with EKOS, 02/2022 History of right total knee arthroplasty, 07/26/2022 Hypertension Hyperlipidemia Hypothyroidism Pulmonary hypertension Chronic heart failure with preserved ejection fraction PLAN: No need to repeat echocardiogram as patient states she had an echocardiogram performed in the office on Saturday Resume home cardiac medications Continue same dose of beta jorge alberto as patient has a documented 5.5 second pause on a recent event monitor per office records Patient is stable for discharge home today with outpatient follow-up with Dr. Sylvester Nurse practitioner note has been reviewed by physician. Signing provider agrees with the documented findings, assessment, and plan of care. Past Medical History Past Medical History: Hyperlipidemia, Hypertension, Osteoarthritis (OA), Pulmonary Embolus (PE), Thyroid Disorder Additional Past Medical History / Comment(s): PE bilateral with EKOS 02/2022 History of Any Multi-Drug Resistant Organisms: None Reported Past Surgical History: Cholecystectomy, Hysterectomy Additional Past Surgical History / Comment(s): Pt states she had a rt hip replacement 20 years ago, right knee replacement jul 2022 Past Anesthesia/Blood Transfusion Reactions: No Reported Reaction Past Psychological History: No Psychological Hx Reported Smoking Status: Never smoker Past Alcohol Use History: None Reported Past Drug Use History: None Reported - Past Family History Father Family Medical History: AICD/Pacemaker Additional Family Medical History / Comment(s): cabg at 84 Mother Additional Family Medical History / Comment(s): non hodgkins lymphoma Medications and Allergies Home Medications Medication Instructions Recorded Confirmed Type Atorvastatin [Lipitor] 80 mg PO HS 02/25/22 09/09/22 History Metoprolol Tartrate [Lopressor] 50 mg PO BID 60 Days #120 tab 03/02/22 09/09/22 Rx Apixaban [Eliquis] 5 mg PO BID 09/09/22 09/09/22 History Furosemide [Lasix] 40 mg PO DAILY 09/09/22 09/09/22 History HYDROcodone/APAP 5-325MG [[place] 1 tab PO Q4HR PRN 09/09/22 09/09/22 History 5-325] Levothyroxine Sodium [Synthroid] 88 mcg PO DAILY 09/09/22 09/09/22 History Allergies Allergy/AdvReac Type Severity Reaction Status Date / Time Penicillins Allergy Rash/Hives Verified 09/09/22 16:53 @ Allergy testing site strawberry Allergy Rash/Hives Verified 09/09/22 16:53 all over body tramadol Allergy Unknown Verified 09/09/22 16:53 Physical Exam Vitals: Vital Signs Temp Pulse Pulse Resp BP BP Pulse Ox 09/10/22 04:00 98.0 F 118 H 18 106/60 95 09/10/22 01:36 115 H 16 09/09/22 23:10 115 H 16 112/64 96 09/09/22 20:00 98.1 F 130 H 18 126/78 97 09/09/22 16:56 98.2 F 72 18 126/80 98 09/09/22 16:19 160 H 20 97/64 96 09/09/22 16:00 141 H 26 H 93/61 97 09/09/22 15:30 141 H 31 H 121/84 98 09/09/22 15:00 176 H 51 H 93/81 99 09/09/22 14:30 103/91 09/09/22 14:00 158 H 20 104/70 99 09/09/22 13:45 162 H 22 108/74 98 09/09/22 13:36 156 H 20 112/98 97 09/09/22 13:02 97.6 F 162 H 20 153/112 97 Intake and Output 09/09/22 09/10/22 09/10/22 22:59 06:59 14:59 Intake Total 480 430 Output Total 900 500 Balance 480 -470 -500 Intake: Intake, IV Titration 190 Amount Diltiazem 125 mg In 40 Sodium Chloride 0.9% 100 ml @ 5 MG/HR 5 mls/hr IV .Q24H [facility] Rx#:[id number] Sodium Chloride 0.9% 1, 150 000 ml @ 75 mls/hr IV . [id number] [facility] Rx#:[id number] Oral 480 240 Output: Urine 900 500 Other: Voiding Method External Catheter External Catheter Weight 83.461 kg Results 09/09/22 13:12 09/09/22 13:12 Cardiac Enzymes 09/09/22 09/09/22 Range/Units 13:12 13:12 AST 23 (14-36) U/L Troponin I <0.012 (0.000-0.034) ng/mL Coagulation 09/09/22 Range/Units 13:12 PT 11.8 (9.0-12.0) sec APTT 28.5 (22.0-30.0) sec CBC 09/09/22 Range/Units 13:12 WBC 11.9 H (3.8-10.6) k/uL RBC 4.58 (3.80-5.40) m/uL Hgb 14.4 (11.4-16.0) gm/dL Hct 44.9 (34.0-46.0) % Plt Count 295 (150-450) k/uL Comprehensive Metabolic Panel 09/09/22 Range/Units 13:12 Sodium 141 (137-145) mmol/L Potassium 4.1 (3.5-5.1) mmol/L Chloride 102 (98-107) mmol/L Carbon Dioxide 24 (22-30) mmol/L BUN 25 H (7-17) mg/dL Creatinine 1.06 H (0.52-1.04) mg/dL Glucose 118 H (74-99) mg/dL Calcium 9.9 (8.4-10.2) mg/dL AST 23 (14-36) U/L ALT 24 (4-34) U/L Alkaline Phosphatase 135 H (38-126) U/L Total Protein 7.1 (6.3-8.2) g/dL Albumin 4.5 (3.5-5.0) g/dL Current Medications Generic Name Dose Route Start Last Admin Trade Name Freq PRN Reason Stop Dose Admin Acetaminophen 650 mg 09/09/22 15:33 Acetaminophen Tab 325 Mg Tab PO Q6HR PRN Mild Pain or Fever > 100.5 Hydrocodone Bitart/Acetaminophen 1 each 09/09/22 17:41 Hydrocodone/Apap 5-325mg 1 Each Tab PO Q4HR PRN Pain Apixaban 5 mg 09/09/22 21:00 09/09/22 20:12 Apixaban 5 Mg Tab PO 5 mg BID ANNA Administration Protocol Atorvastatin Calcium 80 mg 09/09/22 21:00 09/09/22 20:12 Atorvastatin 80 Mg Tab PO 80 mg HS ANNA Administration Furosemide 20 mg 09/10/22 09:00 Furosemide 20 Mg Tab PO DAILY [facility] Sodium Chloride 1,000 mls @ 75 mls/hr 09/09/22 15:45 09/10/22 05:46 Saline 0.9% IV Not Given .[id number] [facility] Levothyroxine Sodium 75 mcg 09/10/22 06:30 09/10/22 06:31 Levothyroxine 75 Mcg Tab PO 75 mcg DAILY@0630 [facility] Administration Meloxicam 15 mg 09/10/22 09:00 Meloxicam 7.5 Mg Tab PO DAILY [facility] Metoprolol Tartrate 25 mg 09/09/22 16:30 09/09/22 20:12 Metoprolol Tartrate 25 Mg Tab PO 25 mg TID [facility] Administration Naloxone HCl 0.2 mg 09/09/22 15:33 Naloxone 0.4 Mg/Ml 1 Ml Vial IV Q2M PRN Opioid Reversal Intake and Output 09/09/22 09/10/22 09/10/22 22:59 06:59 14:59 Intake Total 480 430 Output Total 900 500 Balance 480 -470 -500 Intake: Intake, IV Titration 190 Amount Diltiazem 125 mg In 40 Sodium Chloride 0.9% 100 ml @ 5 MG/HR 5 mls/hr IV .Q24H [facility] Rx#:[id number] Sodium Chloride 0.9% 1, 150 000 ml @ 75 mls/hr IV . [id number] [facility] Rx#:[id number] Oral 480 240 Output: Urine 900 500 Other: Voiding Method External Catheter External Catheter Weight 83.461 kg 09/09/22 13:12 09/09/22 13:12
[2022-09-10] MEDS: METOPROLOL TARTRATE 25 MG TAB PO SCH (09:16)
[2022-09-10] MEDS: APIXABAN 5 MG TAB PO SCH (09:16)
[2022-09-10 10:07] LABS: Basophils % (A) 0 %; Eosinophils % (A) 0 %; HCT 41.3 % (34.0-46.0); HGB 13.2 gm/dL (11.4-16.0); Hypochromasia Marked; Lymphocytes # (A) 1.7 k/uL (1.0-4.8); Lymphocytes % (A) 18 %; MCH 31.9 pg (25.0-35.0); MCV 99.7 fL (80.0-100.0); Mean Platelet Volume 7.6; Monocytes # (A) 0.8 k/uL (0-1.0); Monocytes % (A) 9 %; Neutrophils # (A) 6.9 k/uL (1.3-7.7); Neutrophils % (A) 71 %; Platelet Count 278 k/uL (150-450); RBC 4.15 m/uL (3.80-5.40); RDW 13.7 % (11.5-15.5); WBC 9.6 k/uL (3.8-10.6)
[2022-09-10 10:51] LABS: Calcium 9.1 mg/dL (8.4-10.2); Potassium 4.5 mmol/L (3.5-5.1)
[2022-09-10 11:18] VITALS: RESP 17
[2022-09-10 14:00] VITALS: BP 118/76; PULSE 59; TEMP 97.8
--- NOTE | 2022-09-10 15:39 | P.DS ---
Providers Date of admission: 09/09/22 15:33 Expected date of discharge: 09/10/22 Attending physician: Regulo Greene Consults: 09/09/22 15:33 Consult Physician Routine Consulting Provider: Fortunato Randhawa Consult Reason/Comments: Atrial fibrillation rapid Do you want consulting provider notified?: Yes Primary care physician: Regulo Greene Hospital Course: Final Diagnoses: Atrial fibrillation with rapid ventricular rate. Recent admission with acute pulmonary embolism bilaterally status post EKOS, 03/14/2022 Paroxysmal atrial fibrillation on anticoagulation with Eliquis Severe pulmonary hypertension and severe TR and severely dilated right ventricle as per recent echocardiogram Chronic heart failure with preserved EF Hypothyroidism Hypertension Hyperlipidemia Osteoarthritis with history right knee placement in July 2022. Hospital course: This a 72-year-old female admitted with atrial fibrillation with RVR and multiple other medical issues .Evaluated and treated by cardiology. Initially required IV Cardizem, converted and continues in sinus. Denies chest pain, palpitations or shortness of breath. Denies lightheadedness dizziness or focal deficits. Significant clinical improvement. Cleared for discharge per cardiology. Patient will be discharged home today in a stable condition with guarded prognosis. The impression and plan of care has been dictated as directed. : I performed a history and examination of this patient, discussed the same with the dictator. I agree with the dictator's note ,documented as a scribe. Any additional findings or plans will be noted. Patient Condition at Discharge: Stable Plan - Discharge Summary Discharge Rx Participant: No New Discharge Prescriptions: Continue Metoprolol Tartrate [Lopressor] 50 mg PO BID 60 Days #120 tab Levothyroxine Sodium [Synthroid] 88 mcg PO DAILY Atorvastatin [Lipitor] 80 mg PO HS Apixaban [Eliquis] 5 mg PO BID HYDROcodone/APAP 5-325MG [[place] 5-325] 1 tab PO Q4HR PRN PRN Reason: Pain Changed Furosemide [Lasix] 20 mg PO DAILY #0 Discharge Medication List Atorvastatin [Lipitor] 80 mg PO HS 02/25/22 [History] Metoprolol Tartrate [Lopressor] 50 mg PO BID 60 Days #120 tab 03/02/22 [Rx] Apixaban [Eliquis] 5 mg PO BID 09/09/22 [History] HYDROcodone/APAP 5-325MG [[place] 5-325] 1 tab PO Q4HR PRN 09/09/22 [History] Levothyroxine Sodium [Synthroid] 88 mcg PO DAILY 09/09/22 [History] Furosemide [Lasix] 20 mg PO DAILY #0 09/10/22 [Rx] Follow up Appointment(s)/Referral(s): Rene Sylvester DO [STAFF PHYSICIAN] - 1 Week (September 14, 3:15) Regulo Greene DO [Primary Care Provider] - 09/13/22 (As previously scheduled) Patient Instructions/Handouts: A-fib (Atrial Fibrillation) (DC), Dehydration (DC)
== END 2022-09-10 15:38 | disposition home or self-care (01) | DRG 309 ==
LOC: EC 12:59 → 3SCARD 15:33
PROVIDERS: ADMIT Family Medicine; ATTEND Family Medicine
DX: I48.0 Paroxysmal atrial fibrillation (principal); I50.32 Chronic diastolic (congestive) heart failure; I11.0 Hypertensive heart disease with heart failure; E78.5 Hyperlipidemia, unspecified; I27.20 Pulmonary hypertension, unspecified; M19.90 Unspecified osteoarthritis, unspecified site; M17.0 Bilateral primary osteoarthritis of knee; E86.0 Dehydration; E03.9 Hypothyroidism, unspecified; I07.1 Rheumatic tricuspid insufficiency; Z96.651 Presence of right artificial knee joint; Z96.641 Presence of right artificial hip joint; Z88.5 Allergy status to narcotic agent; Z88.0 Allergy status to penicillin; Z79.890 Hormone replacement therapy; Z79.1 Long term (current) use of non-steroidal anti-inflammatories (NSAID); Z79.01 Long term (current) use of anticoagulants; Z86.711 Personal history of pulmonary embolism; Z87.891 Personal history of nicotine dependence; Z79.899 Other long term (current) drug therapy; Z28.21 Immunization not carried out because of patient refusal; Z82.49 Family history of ischemic heart disease and other diseases of the circulatory system; Z88.8 Allergy status to other drugs, medicaments and biological substances
CPT/HCPCS: 36415; 71046; 80048; 80053; 83735; 84443; 84484; 85025; 85610; 85730; 93005; 96365; 96366; 99291

== ENCOUNTER → 2022-11-12 | Outpatient (CLI) | payer MEDICARE, OTHER ==
--- NOTE | 2022-11-12 15:59 | CT ---
EXAMINATION TYPE: CT sinus wo con DATE OF EXAM: 11/12/2022 COMPARISON: NONE HISTORY: Chronic sinusitis. CT DLP: 593.7 mGycm. Automated Exposure Control for Dose Reduction was Utilized. TECHNIQUE: CT scan of the sinuses is performed without contrast, axial images are obtained, coronal r eformatted images are also reviewed. FINDINGS: The paranasal sinuses including the frontal, ethmoid, sphenoid, and maxillary sinuses bila terally are well-aerated without abnormal opacification or suspicious air-fluid levels. The ostiomea rakesh complex is patent bilaterally on the coronal images. Nasal septum is deviated to right of midline . Visualized portion of mastoid air cells show patchy opacification in the right periphery extending in feriorly. The globes are intact bilaterally. Brain parenchyma shows mild diffuse cerebral atrophy a nd chronic small vessel splenic change at the periventricular levels IMPRESSION: The sinuses are clear and the ostiomeatal complex is patent bilaterally. Possible right- sided mastoiditis, correlate clinically with point tenderness at this level.
== END | disposition home or self-care (01) ==
LOC: RADCTMAIN 12:00
PROVIDERS: ATTEND Otolaryngology
DX: J32.9 Chronic sinusitis, unspecified (principal)
CPT/HCPCS: 70486

== ENCOUNTER 2023-09-26 08:09 | Inpatient (IN) | payer MEDICARE, OTHER ==
[2023-09-26] MEDS ORDERED: ASPIRIN 81 MG PO STA (09:12)
[2023-09-26] MEDS ORDERED: METOPROLOL TARTRATE 5 MG/5 ML VIAL IVP STA ×2 (09:13→09:56)
[2023-09-26 09:34] LABS: Basophils % (A) 0 %; Eosinophils # (A) 0.2 k/uL (0-0.7); Eosinophils % (A) 2 %; HCT 44.6 % (34.0-46.0); HGB 14.5 gm/dL (11.4-16.0); Lymphocytes # (A) 1.4 k/uL (1.0-4.8); Lymphocytes % (A) 16 %; MCH 32.1 pg (25.0-35.0); MCHC 32.6 g/dL (31.0-37.0); MCV 98.5 fL (80.0-100.0); Mean Platelet Volume 8.7; Monocytes # (A) 0.5 k/uL (0-1.0); Monocytes % (A) 6 %; Neutrophils # (A) 6.1 k/uL (1.3-7.7); Neutrophils % (A) 74 %; Platelet Count 209 k/uL (150-450); RBC 4.53 m/uL (3.80-5.40); WBC 8.3 k/uL (3.8-10.6)
[2023-09-26 09:48] LABS: INR 1.2 (<1.2); Partial Thromboplastin Time 31.9 sec (22.0-30.0); Prothrombin Time 13.2 sec (10.0-12.5)
--- NOTE | 2023-09-26 09:49 | ED ---
General Adult HPI - General Chief complaint: Arrhythmia/Palpitations Stated complaint: HTN Time Seen by Provider: 09/26/23 09:00 Source: patient, RN notes reviewed, old records reviewed Mode of arrival: ambulatory Limitations: no limitations - History of Present Illness Initial comments: Patient is a 73-year-old female with past medical history remarkable for atrial fibrillation, hypertension, hyperlipidemia, PE, thyroid disorder who is on Eliquis presents emergency Department complaining of palpitations on and off for the last week with associated worsening orthopnea, lower extremity edema. Patient also has mild exertional dyspnea. Denies any chest pain, abdominal pain, nausea, vomiting. Denies any diaphoretic episodes. States she has been compliant with her home metoprolol and blood thinning medication but states she still having issues with her heart rate. Also note she was hypertensive at home as well but was using a wrist cuff. Symptoms have been unchanged on and off for the last week. Presents for further evaluation at this time. Does take metoprolol 50 mg twice a day. - Related Data Home Medications Medication Instructions Recorded Confirmed Atorvastatin [Lipitor] 80 mg PO HS 02/25/22 09/26/23 Apixaban [Eliquis] 5 mg PO BID 09/09/22 09/26/23 Levothyroxine Sodium [Synthroid] 88 mcg PO DAILY 09/09/22 09/26/23 Furosemide [Lasix] 40 mg PO DAILY 09/26/23 09/26/23 Magnesium 250 mg PO DAILY 09/26/23 09/26/23 Previous Rx's Medication Instructions Recorded Metoprolol Tartrate [Lopressor] 50 mg PO BID 60 Days #120 tab 03/02/22 Allergies Allergy/AdvReac Type Severity Reaction Status Date / Time Penicillins Allergy Rash/Hives Verified 09/26/23 11:34 @ Allergy testing site strawberry Allergy Rash/Hives Verified 09/26/23 11:34 all over body tramadol Allergy Unknown Verified 09/26/23 11:34 Review of Systems ROS Statement: Those systems with pertinent positive or pertinent negative responses have been documented in the HPI. Review of Systems: CONST: Denies fever EYES: Denies blurry vision ENT: Denies nasal congestion C/V: Endorses palpitations RESP: Denies shortness of breath GI: Denies abdominal pain : Denies dysuria SKIN: Denies rash. MSK: Denies joint pain. NEURO: Denies headache ROS Other: All systems not noted in ROS Statement are negative. Past Medical History Past Medical History: Atrial Fibrillation, Hyperlipidemia, Hypertension, Osteoarthritis (OA), Pulmonary Embolus (PE), Thyroid Disorder Additional Past Medical History / Comment(s): PE bilateral with EKOS 02/2022 History of Any Multi-Drug Resistant Organisms: None Reported Past Surgical History: Cholecystectomy, Hysterectomy Additional Past Surgical History / Comment(s): Pt states she had a rt hip replacement 20 years ago, right knee replacement jul 2022 Past Anesthesia/Blood Transfusion Reactions: No Reported Reaction Past Psychological History: No Psychological Hx Reported Smoking Status: Never smoker Past Alcohol Use History: None Reported Past Drug Use History: None Reported - Past Family History Father Family Medical History: AICD/Pacemaker Additional Family Medical History / Comment(s): cabg at 84 Mother Additional Family Medical History / Comment(s): non hodgkins lymphoma General Exam - General Exam Comments Initial Comments: General: Appears in no acute distress. HEAD: Normal with no signs of head trauma. EYES: PERRLA, EOMI, conjunctiva normal, no discharge. ENT: Hearing grossly intact, normal oropharynx. RESPIRATORY: Clear breath sounds bilaterally. No wheezes, rales, or rhonchi. C/V: Irregular rate and rhythm. S1 and S2 auscultated, bilateral symmetrical pitting edema, peripheral pulses 2+ and intact throughout ABD: Abd is soft, nontender, nondistended EXT: Normal range of motion, no obvious deformity SKIN: No rashes or lesions observed on exposed skin. NEURO: Alert and oriented x 4. Cranial nerves II-XII intact. No focal sensory or strength deficits. Limitations: no limitations Course Vital Signs 09/26/23 09/26/23 09/26/23 08:10 08:36 08:37 Temperature 97.8 F 97.5 F L Pulse Rate 134 H 137 H Pulse Rate [ 146 H Senior Reservations Agent ] Respiratory 18 20 Rate Blood Pressure 134/98 117/98 O2 Sat by Pulse 98 95 Oximetry 09/26/23 09/26/23 09/26/23 09:35 10:00 10:25 Temperature Pulse Rate 131 H 140 H 124 H Pulse Rate [ Senior Reservations Agent ] Respiratory 20 20 Rate Blood Pressure 111/77 106/73 O2 Sat by Pulse 94 L 95 Oximetry 09/26/23 09/26/23 09/26/23 10:58 11:00 12:00 Temperature Pulse Rate 129 H 134 H 149 H Pulse Rate [ Senior Reservations Agent ] Respiratory 20 Rate Blood Pressure 93/80 114/83 95/78 O2 Sat by Pulse 95 Oximetry 09/26/23 09/26/23 09/26/23 12:02 13:15 14:05 Temperature Pulse Rate 134 H 129 H 137 H Pulse Rate [ Senior Reservations Agent ] Respiratory 18 17 18 Rate Blood Pressure 95/78 104/81 90/66 O2 Sat by Pulse 95 94 L 93 L Oximetry 09/26/23 09/26/23 14:07 14:20 Temperature 97.9 F Pulse Rate Pulse Rate [ Senior Reservations Agent ] Respiratory Rate Blood Pressure O2 Sat by Pulse 97 Oximetry Medical Decision Making - Medical Decision Making Was pt. sent in by a medical professional or institution (, PA, MUSIC DEPARTMENT CHAIR, urgent care, hospital, or fpc...) When possible be specific @ -No Did you speak to anyone other than the patient for history (EMS, parent, family, police, friend...)? What history was obtained from this source @ -No Did you review nursing and triage notes (agree or disagree)? Why? @ -I reviewed and agree with nursing and triage notes Were old charts reviewed (outside hosp., previous admission, EMS record, old EKG, old radiological studies, urgent care reports/EKG's, fpc records)? Report findings @ -Old charts reviewed Differential Diagnosis (chest pain, altered mental status, abdominal pain women, abdominal pain men, vaginal bleeding, weakness, fever, dyspnea, syncope, headache, dizziness, GI bleed, back pain, seizure, CVA, palpatations, mental health, musculoskeletal)? @ -Differential Palpitations Ventricular arrhythmias, atrial arrhythmias, myocardial infarction, anemia, thyrotoxicosis, electrolyte imbalance, hypokalemia, pulmonary embolism, pulmonary disease, drugs, alcohol, anxiety, stress.... This is not meant to be an all-inclusive list. EKG interpreted by me (3pts min.). @ -As above X-rays interpreted by me (1pt min.). @ -Chest x-ray reveals possible mild pulmonary vascular congestion. CT interpreted by me (1pt min.). @ -None done U/S interpreted by me (1pt. min.). @ -None done] What testing was considered but not performed or refused? (CT, X-rays, U/S, labs)? Why? @ -None What meds were considered but not given or refused? Why? @ -None Did you discuss the management of the patient with other professionals (professionals i.e. , PA, MUSIC DEPARTMENT CHAIR, lab, RT, psych nurse, secondary social studies teacher, venetian blind washer, teacher, gunnery/ordnance officer, rn field case manager)? Give summary @ -Discussed with the admitting physician, Dr. Greene who was in agreement with the plan and accepted the patient. Was smoking cessation discussed for >3mins.? @ -No Was critical care preformed (if so, how long)? @ -yes, 34 minutes Were there social determinants of health that impacted care today? How? (Homeles sness, low income, unemployed, alcoholism, drug addiction, transportation, low edu. Level, literacy, decrease access to med. care, long term, rehab)? @ -No Was there de-escalation of care discussed even if they declined (Discuss DNR or withdrawal of care, Hospice)? DNR status @ -No What co-morbidities impacted this encounter? (DM, HTN, Smoking, COPD, CAD, Cancer, CVA, ARF, Chemo, Hep., AIDS, mental health diagnosis, sleep apnea, morbid obesity)? @ -None Was patient admitted / discharged? Hospital course, mention meds given and route, prescriptions, significant lab abnormalities, going to OR and other pertinent info. @ -Based on the patient's presentation and physical exam, I'm concerned for appears to be breakthrough A. fib with RVR with medication compliance. Also is having symptoms consistent with CHF exacerbation with worsening exertional dyspnea, lower extremity edema, orthopnea. All symptoms have been ongoing for the last week. We will obtain cardiopulmonary labs. Patient is in agreement this plan. Vital signs other than the A. fib with RVR stable at this time. We will provide the patient with 324 of aspirin as well as a dose of IV metoprolol 2.5 mg and observed for effect. Patient was in agreement this plan. Chest x-ray reveals possible mild pulmonary vascular him. Patient's labs are remarkable for a troponin within acceptable limits. BNP is elevated to 12,000. Patient also has a UTI. Following multiple doses of IV push metoprolol, patient remains in A. fib with RVR. I did discuss the results with the patient. She appears to be volume overloaded with the lower extremity edema as well as worsening orthopnea. Patient was started and IV Lasix. I would not provide any additional IV fluids at this time because of this however we will continue to monitor closely. Patient was started on Rocephin for her UTI and we sent urine culture. Patient was also started on a Cardizem drip due to the intractable A. fib with RVR with heart rates in the 150s. She was in agreement this plan. Discussed the case with the admitting physician, Dr. Greene who accepted the patient. Cardiology consulted. Echo ordered. Undiagnosed new problem with uncertain prognosis? @ -No Drug Therapy requiring intensive monitoring for toxicity (Heparin, Nitro, Insulin, Cardizem)? @ -Cardizem Were any procedures done? @ -No. Diagnosis/symptom? @ -CHF, A. fib with RVR, UTI Acute, or Chronic, or Acute on Chronic? @ -Acute Uncomplicated (without systemic symptoms) or Complicated (systemic symptoms)? @ -Complicated Side effects of treatment? @ -none Exacerbation, Progression, or Severe Exacerbation] @ -no Poses a threat to life or bodily function? @ -yes . - Lab Data Result diagrams: 09/26/23 09:23 09/26/23 09:23 Lab Results 09/26/23 09/26/23 09/26/23 Range/Units 09: 09: 09:23 WBC 8.3 (3.8-10.6) k/uL RBC 4.53 (3.80-5.40) m/uL Hgb 14.5 (11.4-16.0) gm/dL Hct 44.6 (34.0-46.0) % MCV 98.5 (80.0-100.0) fL MCH 32.1 (25.0-35.0) pg MCHC 32.6 (31.0-37.0) g/dL RDW 14.0 (11.5-15.5) % Plt Count 209 (150-450) k/uL MPV 8.7 Neutrophils % 74 % Lymphocytes % 16 % Monocytes % 6 % Eosinophils % 2 % Basophils % 0 % Neutrophils # 6.1 (1.3-7.7) k/uL Lymphocytes # 1.4 (1.0-4.8) k/uL Monocytes # 0.5 (0-1.0) k/uL Eosinophils # 0.2 (0-0.7) k/uL Basophils # 0.0 (0-0.2) k/uL PT 13.2 H (10.0-12.5) sec INR 1.2 H (<1.2) APTT 31.9 H (22.0-30.0) sec Sodium 138 (137-145) mmol/L Potassium 3.9 (3.5-5.1) mmol/L Chloride 104 (98-107) mmol/L Carbon Dioxide 23 (22-30) mmol/L Anion Gap 11 mmol/L BUN 35 H (7-17) mg/dL Creatinine 1.37 H (0.52-1.04) mg/dL Est GFR (CKD-EPI)AfAm 44 (>60 ml/min/1.73 sqM) Est GFR (CKD-EPI)NonAf 38 (>60 ml/min/1.73 sqM) Glucose 139 H (74-99) mg/dL Calcium 9.7 (8.4-10.2) mg/dL Magnesium 1.9 (1.6-2.3) mg/dL Total Bilirubin 1.9 H (0.2-1.3) mg/dL AST 22 (14-36) U/L ALT 21 (4-34) U/L Alkaline Phosphatase 107 (38-126) U/L Troponin I (0.000-0.034) ng/mL NT-Pro-B Natriuret Pep 35914 pg/mL Total Protein 6.7 (6.3-8.2) g/dL Albumin 4.1 (3.5-5.0) g/dL TSH 3.520 (0.465-4.680) mIU/L Urine Color Urine Appearance (Clear) Urine pH (5.0-8.0) Ur Specific [place] (1.001-1.035) Urine Protein (Negative) Urine Glucose (UA) (Negative) Urine Ketones (Negative) Urine Blood (Negative) Urine Nitrite (Negative) Urine Bilirubin (Negative) Urine Urobilinogen (<2.0) mg/dL Ur Leukocyte Esterase (Negative) Urine RBC (0-5) /hpf Urine WBC (0-5) /hpf Ur Squamous Epith Cells (0-4) /hpf Urine Bacteria (None) /hpf Hyaline Casts (0-2) /lpf Urine Mucus (None) /hpf Influenza Type A (PCR) (Not Detectd) Influenza Type B (PCR) (Not Detectd) RSV (PCR) (Not Detectd) SARS-CoV-2 (PCR) (Not Detectd) 09/26/23 09/26/23 09/26/23 Range/Units 09:23 09:23 10:50 WBC (3.8-10.6) k/uL RBC (3.80-5.40) m/uL Hgb (11.4-16.0) gm/dL Hct (34.0-46.0) % MCV (80.0-100.0) fL MCH (25.0-35.0) pg MCHC (31.0-37.0) g/dL RDW (11.5-15.5) % Plt Count (150-450) k/uL MPV Neutrophils % % Lymphocytes % % Monocytes % % Eosinophils % % Basophils % % Neutrophils # (1.3-7.7) k/uL Lymphocytes # (1.0-4.8) k/uL Monocytes # (0-1.0) k/uL Eosinophils # (0-0.7) k/uL Basophils # (0-0.2) k/uL PT (10.0-12.5) sec INR (<1.2) APTT (22.0-30.0) sec Sodium (137-145) mmol/L Potassium (3.5-5.1) mmol/L Chloride (98-107) mmol/L Carbon Dioxide (22-30) mmol/L Anion Gap mmol/L BUN (7-17) mg/dL Creatinine (0.52-1.04) mg/dL Est GFR (CKD-EPI)AfAm (>60 ml/min/1.73 sqM) Est GFR (CKD-EPI)NonAf (>60 ml/min/1.73 sqM) Glucose (74-99) mg/dL Calcium (8.4-10.2) mg/dL Magnesium (1.6-2.3) mg/dL Total Bilirubin (0.2-1.3) mg/dL AST (14-36) U/L ALT (4-34) U/L Alkaline Phosphatase (38-126) U/L Troponin I 0.013 (0.000-0.034) ng/mL NT-Pro-B Natriuret Pep pg/mL Total Protein (6.3-8.2) g/dL Albumin (3.5-5.0) g/dL TSH (0.465-4.680) mIU/L Urine Color Yellow Urine Appearance Cloudy H (Clear) Urine pH 5.5 (5.0-8.0) Ur Specific [place] 1.015 (1.001-1.035) Urine Protein 1+ H (Negative) Urine Glucose (UA) Negative (Negative) Urine Ketones Negative (Negative) Urine Blood Small H (Negative) Urine Nitrite Positive H (Negative) Urine Bilirubin Negative (Negative) Urine Urobilinogen <2.0 (<2.0) mg/dL Ur Leukocyte Esterase Small H (Negative) Urine RBC 2 (0-5) /hpf Urine WBC 14 H (0-5) /hpf Ur Squamous Epith Cells 4 (0-4) /hpf Urine Bacteria Many H (None) /hpf Hyaline Casts 6 H (0-2) /lpf Urine Mucus Rare H (None) /hpf Influenza Type A (PCR) Not Detected (Not Detectd) Influenza Type B (PCR) Not Detected (Not Detectd) RSV (PCR) Not Detected (Not Detectd) SARS-CoV-2 (PCR) Not Detected (Not Detectd) - EKG Data -: EKG Interpreted by Me EKG Comments: 12-lead Electrocardiogram Interpretation Note EKG was reviewed and interpreted by myself. 12-lead ECG performed at 0825 is interpreted by me as revealing A. fib with RVR at a rate of 132 beats per minute. Bart[place] is normal. QRS durations 89 ms, QTc is 392 ms. There were no ST or T wave abnormalities to suggest myocardial ischemia or injury. R wave progression across the precordium was satisfactory. By my interpretation this EKG is non-diagnostic for acute ischemia. Disposition Clinical Impression: Atrial fibrillation, CHF (congestive heart failure), UTI (urinary tract infection) Disposition: ADMITTED IP TO THIS HOSP Condition: Stable Time of Disposition: 11:50
[2023-09-26] MEDS ORDERED: ONDANSETRON 4 MG/2 ML VIAL IVP STA (09:56)
[2023-09-26 10:04] LABS: ALT 21 U/L (4-34); AST 22 U/L (14-36); African American GFR (CKD) 44 (>60 ml/min/1.73 sqM); Albumin 4.1 g/dL (3.5-5.0); Alkaline Phosphatase 107 U/L (38-126); Anion Gap 11 mmol/L; Blood Urea Nitrogen 35 mg/dL (7-17); Calcium 9.7 mg/dL (8.4-10.2); Carbon Dioxide 23 mmol/L (22-30); Chloride 104 mmol/L (98-107); Glucose 139 mg/dL (74-99); Magnesium 1.9 mg/dL (1.6-2.3); Non-African American GFR(CKD) 38 (>60 ml/min/1.73 sqM); Potassium 3.9 mmol/L (3.5-5.1); Sodium 138 mmol/L (137-145); Total Bilirubin 1.9 mg/dL (0.2-1.3); Total Protein 6.7 g/dL (6.3-8.2)
--- NOTE | 2023-09-26 10:09 | XR ---
EXAMINATION TYPE: XR chest 2V DATE OF EXAM: 09/26/2023 COMPARISON: 09/09/2022 INDICATION: Dysrhythmia short of breath TECHNIQUE: Single frontal view of the chest is obtained. FINDINGS: The heart size is normal. The pulmonary vasculature is normal. The lungs are clear. IMPRESSION: 1. No acute pulmonary process.
[2023-09-26 10:11] LABS: NT-Pro-B-Type Natriuretic Pept 12000 pg/mL
[2023-09-26] MEDS ORDERED: FUROSEMIDE 10 MG/ML 4 ML VIAL IV STA (11:00)
[2023-09-26 11:07] LABS: Appearance,Urine Cloudy (Clear); Bacteria,Urine Many /hpf; Bilirubin,Urine Negative (Negative); Blood,Urine Small (Negative); Color,Urine Yellow; Glucose,Urine (UA) Negative (Negative); Hyaline Casts,Urine 6 /lpf (0-2); Ketones,Urine Negative (Negative); Leukocyte Esterase,Urine Small (Negative); Mucus,Urine Rare /hpf; Nitrite,Urine Positive (Negative); PH, Urine 5.5 (5.0-8.0); Protein,Urine 1+ (Negative); RBC,Urine 2 /hpf (0-5); Specific Gravity,Urine 1.015 (1.001-1.035); Squamous Epithelial Cell,Urine 4 /hpf (0-4); Urobilinogen,Urine <2.0 mg/dL (<2.0); WBC,Urine 14 /hpf (0-5)
[2023-09-26] MEDS ORDERED: DILTIAZEM DRIP BOLUS FROM BAG 1 MG SOLN IV ONE (11:44)
[2023-09-26] MEDS ORDERED: NALOXONE 0.4 MG/ML 1 ML VIAL IV PRN (12:07)
[2023-09-26] MEDS: DILTIAZEM 125 MG in SODIUM CHLORIDE 0.9% 100 ML IV SCH (12:07)
[2023-09-26] MEDS: APIXABAN 5 MG TAB PO SCH (20:28)
[2023-09-26] MEDS: METOPROLOL TARTRATE 50 MG TAB PO SCH (20:28)
[2023-09-26] MEDS: ATORVASTATIN 80 MG TAB PO SCH (20:28)
[2023-09-26] MEDS: FUROSEMIDE 10 MG/ML 4 ML VIAL IV SCH (20:28)
[2023-09-27] MEDS: LEVOTHYROXINE 88 MCG TAB PO SCH (06:11)
--- NOTE | 2023-09-27 07:11 | CA ---
Transthoracic Echo Report Name: Mariel Hidalgo Age: 73 Gender: F : 1950 Exam Date: 09/26/2023 14:26 Exam Location: [facility] Ht (in): 65 Wt (lb): 275 Ordering Physician: Rom Burnette MD Attending/Referring Phys: Criminal Attorney Kristin Antoine RDCS Procedure CPT: Indications: chf, afib with rvr Cardiac Hx: Technical Quality: Fair Contrast 1: Total Dose (mL): Contrast 2: Total Dose (mL): MEASUREMENTS (Male / Female) Normal Values 2D ECHO LV Diastolic Diameter PLAX 4.2 cm 4.2 - 5.9 / 3.9 - 5.3 cm LV Systolic Diameter PLAX 3.1 cm IVS Diastolic Thickness 1.1 cm 0.6 - 1.0 / 0.6 - 0.9 cm LVPW Diastolic Thickness 1.4 cm 0.6 - 1.0 / 0.6 - 0.9 cm LV Relative Wall Thickness 0.6 RV Internal Dim ED PLAX 2.8 cm LA Systolic Diameter LX 5.0 cm 3.0 - 4.0 / 2.7 - 3.8 cm LV Diastolic Volume MOD 4C 69.6 cm??? LV Systolic Volume MOD 4C 36.2 cm??? LV Ejection Fraction MOD 4C 48.0 % LV Cardiac Index MOD 4C 1684.1 cm???/min???m??? LV Diastolic Length 4C 7.1 cm LV Systolic Length 4C 6.3 cm LV Diastolic Volume MOD 2C 77.9 cm??? LV Systolic Volume MOD 2C 45.6 cm??? LV Ejection Fraction MOD 2C 41.5 % LV Cardiac Index MOD 2C 1629.2 cm???/min???m??? LV Diastolic Length 2C 6.9 cm LV Systolic Length 2C 6.0 cm LA Volume 108.8 cm??? 18 - 58 / 22 - 52 cm??? LA Volume Index 44.2 cm???/m??? 16 - 28 cm???/m??? M-MODE Aortic Root Diameter MM 3.0 cm AV Cusp Separation MM 1.8 cm DOPPLER AV Peak Velocity 131.4 cm/s AV Peak Gradient 6.9 mmHg MV Peak Velocity 172.3 cm/s MV Peak Gradient 11.9 mmHg MV Mean Velocity 89.7 cm/s MV Mean Gradient 4.1 mmHg MV Velocity Time Integral 36.4 cm MV Area PHT 5.1 cm??? MV Deceleration Time 133.4 ms TR Peak Velocity 287.8 cm/s TR Peak Gradient 33.1 mmHg Right Ventricular Systolic Press 36.5 mmHg FINDINGS Left Ventricle Left ventricular ejection fraction is estimated at 55-60 %. Left ventricular cavity size normal. Mildly increased left ventricular wall thickness. Normal left ventricular wall motion. Right Ventricle Normal right ventricular size. Mild pulmonary hypertension. Right Atrium Right atrium not well visualized. Left Atrium Severely increased left atrial diameter. Severely increased left atrial volume. Moderately increased left atrial area. Mitral Valve Mild gradient on MV 4 mmHg. moderate mitral regurgitation. Moderate mitral annular calcification. Aortic Valve Trileaflet aortic valve. Aortic valve sclerosis. Tricuspid Valve Tricuspid valve not well visualized. [id number] tricuspid regurgitation. Pulmonic Valve Pulmonic valve not well visualized. Trace pulmonic regurgitation. Pericardium No pericardial effusion. Aorta Normal size aortic root and proximal ascending aorta. CONCLUSIONS 1. Normal left ventricle size and systolic function 2. Moderate mitral with mild to moderate tricuspid regurgitation and mild pulmonary hypertension Previewed by: Dr. Kevin Montiel MD (Electronically Signed) Final Date: 27 September 2023 07:11
[2023-09-27 09:27] LABS: Basophils % (A) 0 %; Eosinophils # (A) 0.2 k/uL (0-0.7); Eosinophils % (A) 2 %; HGB 13.1 gm/dL (11.4-16.0); Hypochromasia Slight; Lymphocytes # (A) 1.5 k/uL (1.0-4.8); Lymphocytes % (A) 21 %; MCH 31.7 pg (25.0-35.0); MCHC 31.9 g/dL (31.0-37.0); MCV 99.4 fL (80.0-100.0); Mean Platelet Volume 8.8; Monocytes # (A) 0.5 k/uL (0-1.0); Monocytes % (A) 7 %; Neutrophils % (A) 68 %; Platelet Count 182 k/uL (150-450); RBC 4.12 m/uL (3.80-5.40); RDW 13.9 % (11.5-15.5); WBC 7.4 k/uL (3.8-10.6)
[2023-09-27 09:46] LABS: African American GFR (CKD) 40 (>60 ml/min/1.73 sqM); Anion Gap 9 mmol/L; Blood Urea Nitrogen 38 mg/dL (7-17); Calcium 9.6 mg/dL (8.4-10.2); Carbon Dioxide 29 mmol/L (22-30); Chloride 100 mmol/L (98-107); Glucose 105 mg/dL (74-99); Non-African American GFR(CKD) 35 (>60 ml/min/1.73 sqM); Potassium 4.3 mmol/L (3.5-5.1); Sodium 138 mmol/L (137-145)
[2023-09-27] MEDS: MAGNESIUM OXIDE 400 MG TAB PO SCH (10:00)
[2023-09-27] MEDS: APIXABAN 5 MG TAB PO SCH ×2 (10:01→20:20)
[2023-09-27] MEDS: FUROSEMIDE 10 MG/ML 4 ML VIAL IV SCH ×2 (10:02→20:20)
[2023-09-27] MEDS: METOPROLOL TARTRATE 50 MG TAB PO SCH ×2 (10:28→20:20)
[2023-09-27] MEDS ORDERED: DILTIAZEM DRIP BOLUS FROM BAG 1 MG SOLN IV ONE (11:00)
[2023-09-27] MEDS: DILTIAZEM 125 MG in SODIUM CHLORIDE 0.9% 100 ML IV SCH ×2 (11:50→20:46)
--- NOTE | 2023-09-27 13:02 | CONS ---
CONSULTATION HISTORY OF PRESENT ILLNESS: This is a 73-year-old lady with a known history of paroxysmal atrial fibrillation, who also has history of hypertension, hypothyroidism and hypercholesterolemia. She sees Dr. Sylvester in the outpatient setting. Sometime in February of 2022, this lady had a submassive pulmonary embolism and had EKOS procedure with good result. She came into the hospital yesterday with complaints of feeling heart racing, palpitations on and off, especially when she is ambulatory. She was having a rapid heartbeat sensation. She was found to be in atrial fibrillation with rapid ventricular rate, placed on a Cardizem drip. She was on a beta jorge alberto and Eliquis and atorvastatin. She is still in atrial fib, rate is about 120, but at rest she feels well. PAST MEDICAL HISTORY: 1. History of pulmonary embolism in February 2022 with EKOS procedure. 2. Hypertension. 3. Hyperlipidemia. 4. Hypothyroidism. 5. Paroxysmal atrial fibrillation, on Eliquis and beta-jorge alberto. MEDICATIONS: Medications at home include, 1. Metoprolol tartrate 50 mg b.i.d. 2. Eliquis 5 mg b.i.d. 3. Levothyroxine 88 mcg daily. 4. Atorvastatin 80 mg daily. 5. Lasix 40 mg daily. PHYSICAL EXAMINATION: VITAL SIGNS: Blood pressure is 108/70, pulse rate 120, irregular. HEENT: Unremarkable. Fundus was not examined by me. NECK: Supple. There is JVD 1 cm. No carotid bruit. HEART: S1 and S2 heard normally with tachycardia. Irregular rhythm. LUNGS: Revealed decent air entry. ABDOMEN: Soft, nontender. LOWER EXTREMITIES: Reveal normal pulses. No edema. CENTRAL NERVOUS SYSTEM: Normal. IMAGING STUDIES: EKG revealed atrial fibrillation with moderately rapid ventricular rate, nonspecific ST- T changes. IMPRESSION: 1. Paroxysmal atrial fibrillation, symptomatic with rapid ventricular rate. 2. History of pulmonary embolism. 3. Hypertension. 4. Hyperlipidemia. RECOMMENDATIONS: I am recommending intravenous Cardizem bolus of 10 mg and a drip at 10. Increase beta jorge alberto and see how she does. Echocardiogram obtained yesterday afternoon revealed normal LV size and systolic function. The right ventricle is normal in size. There is mild pulmonary hypertension. We will continue current medical regimen with rate control and if she does not convert, we will consider amiodarone. Discussed my thoughts in detail with the patient. Thank you very much for the consult. MMODL / IJN: [id number] /
[2023-09-27] MEDS ORDERED: NYSTATIN 100,000 UNIT/GM POWD 15 GM TOPICAL PRN (13:04)
--- NOTE | 2023-09-27 19:42 | P.HPIM ---
History of Present Illness H&P Date: 09/27/23 Chief Complaint: Palpitations, dyspnea This is a 73-year-old female with past medical history significant for atrial fibrillation, PE, status post EKOS 02/2022, hypertension, hypothyroidism admitted with atrial fibrillation with RVR and multiple other medical issues.Evaluated and treated by cardiology. Presented to the hospital with complaints of heart palpitations, hypertension , shortness of breath 1 week.Positive orthopnea , reports sleeping sitting up in a recliner as well as living downstairs in her home to avoid climbing stairs. Cardizem drip initiated, rate improving. Cardiology consult in place. Troponins negative 3 , proBNP pending .EKG rate atrial fibrillation with RVR heart rate 132 . Echo reported normal LV function, mild pulmonary hypertension, moderate mitral and moderate tricuspid regurgitation .Chest x-ray no acute pulmonary process. UA reports positive nitrates, many bacteria, small leukocytes, urine culture pending. Review of Systems ROS Statement: Those systems with pertinent positive or pertinent negative responses have been documented in the HPI. ROS Other: All systems not noted in ROS Statement are negative. Past Medical History Past Medical History: Atrial Fibrillation, Hyperlipidemia, Hypertension, Os teoarthritis (OA), Pulmonary Embolus (PE), Thyroid Disorder Additional Past Medical History / Comment(s): PE bilateral with EKOS 02/2022 History of Any Multi-Drug Resistant Organisms: None Reported Past Surgical History: Cholecystectomy, Hysterectomy Additional Past Surgical History / Comment(s): Pt states she had a rt hip replacement 20 years ago, right knee replacement jul 2022 Past Anesthesia/Blood Transfusion Reactions: No Reported Reaction Past Psychological History: No Psychological Hx Reported Smoking Status: Never smoker Past Alcohol Use History: None Reported Past Drug Use History: None Reported - Past Family History Father Family Medical History: AICD/Pacemaker Additional Family Medical History / Comment(s): cabg at 84 Mother Additional Family Medical History / Comment(s): non hodgkins lymphoma Medications and Allergies Home Medications Medication Instructions Recorded Confirmed Type Atorvastatin [Lipitor] 80 mg PO HS 02/25/22 09/26/23 History Metoprolol Tartrate [Lopressor] 50 mg PO BID 60 Days #120 tab 03/02/22 09/26/23 Rx Apixaban [Eliquis] 5 mg PO BID 09/09/22 09/26/23 History Levothyroxine Sodium [Synthroid] 88 mcg PO DAILY 09/09/22 09/26/23 History Furosemide [Lasix] 40 mg PO DAILY 09/26/23 09/26/23 History Magnesium 250 mg PO DAILY 09/26/23 09/26/23 History Allergies Allergy/AdvReac Type Severity Reaction Status Date / Time Penicillins Allergy Rash/Hives Verified 09/26/23 11:34 @ Allergy testing site strawberry Allergy Rash/Hives Verified 09/26/23 11:34 all over body tramadol Allergy Unknown Verified 09/26/23 11:34 Physical Exam Vitals: Vital Signs Temp Pulse Pulse Resp BP BP Pulse Ox 09/27/23 08:10 97.9 F 120 H 16 104/74 97 09/27/23 07:43 97.8 F 120 H 16 104/65 96 09/27/23 04:00 97.9 F 122 H 19 107/68 98 09/26/23 23:53 98.0 F 117 H 19 109/68 99 09/26/23 20:00 98.1 F 138 H 19 100/65 97 09/26/23 16:00 145 H 18 98/65 95 09/26/23 14:20 97.9 F 09/26/23 14:07 97 09/26/23 14:05 137 H 18 90/66 93 L 09/26/23 13:15 129 H 17 104/81 94 L 09/26/23 12:02 134 H 18 95/78 95 09/26/23 12:00 149 H 20 95/78 95 Intake and Output 09/26/23 09/27/23 09/27/23 22:59 06:59 14:59 Intake Total 118 Output Total 550 Balance 118 -550 Intake: Oral 118 Output: Urine 550 Other: Voiding Method Toilet Toilet Toilet Diaper Diaper Diaper # Voids 2 Weight 124.1 kg PHYSICAL EXAM: VITAL SIGNS: [As above] GENERAL: Well-nourished, alert ,Sitting up in bed, no acute distress HEENT: Normocephalic, Conjunctivae normal. eyes normal. NECK: Supple No JVD. No thyroid enlargement. No LNs CARDIOVASCULAR: S1, S2 regular. Irregular. Tachycardia, No murmur RESPIRATION: Unlabored, equal air entry, bibasilar crackles ABDOMEN: Soft, nontender . No guarding. no masses palpable. No ascites, No hepatosplenomegaly.Bowel sounds heard. LEGS: Positive edema PSYCHIATRY: Alert and oriented X3, mood and affect normal. NERVOUS SYSTEM: Cranial N 2-12 grossly normal. Moves all 4 limbs. Diffuse weakness No focal deficits. Strength and sensation grossly intact. Skin: Warm and dry, no rash Results CBC & Chem 7: 09/27/23 08:19 09/27/23 08:19 Labs: Abnormal Lab Results - Last 24 Hours (Table) 09/27/23 Range/Units 08:19 BUN 38 H (7-17) mg/dL Creatinine 1.47 H (0.52-1.04) mg/dL Glucose 105 H (74-99) mg/dL Microbiology - Last 24 Hours (Table) 09/26/23 11:43 Urine Culture - Preliminary Urine,Clean Catch Gram Neg Bacilli Thrombosis Risk Factor Assmnt - Choose All That Apply Each Risk Factor Represents 3 Points: Age 75 years or older, History of DVT/PE Thrombosis Risk Factor Assessment Total Risk Factor Score: 6 Thrombosis Risk Factor Assessment Level: High Risk Assessment and Plan Assessment: Atrial fibrillation with rapid ventricular rate, symptomatic, in a patient with history of Paroxysmal atrial fibrillation anticoagulated with Eliquis Possible mild acute on chronic CHF exacerbation, diastolic dysfunction, ef 55- 60% Acute UTI, culture pending Acute renal failure Pulmonary embolism bilaterally status post EKOS, 03/14/2022 Pulmonary hypertension moderate mitral and tricuspid regurgitation Hypothyroidism Hypertension Hyperlipidemia Osteoarthritis with history right knee placement in July 2022. Morbid obesity, BMI 46 Plan: Continue on current medication regime ,monitoring and symptomatic treatment.ceftriaxone for UTI, culture pending. BNP pending.Antiarrhythmics/diuretics as per cardiology. GI prophylaxis with PPI. DVT prophylaxis patient on Eliquis. Close monitoring of renal function with repeat labs ordered for a.m. The impression and plan of care has been dictated as directed. : I performed a history and examination of this patient, discussed the same with the dictator. I agree with the dictator's note ,documented as a scribe. Any additional findings or plans will be noted.
[2023-09-27] MEDS: PANTOPRAZOLE 40 MG/10 ML VIAL IVP SCH (20:20)
[2023-09-27] MEDS: ATORVASTATIN 80 MG TAB PO SCH (20:20)
[2023-09-28] MEDS ORDERED: ONDANSETRON 4 MG/2 ML VIAL IVP STA (02:56)
[2023-09-28] MEDS: LEVOTHYROXINE 88 MCG TAB PO SCH (05:13)
[2023-09-28] MEDS: APIXABAN 5 MG TAB PO SCH ×2 (08:54→19:42)
[2023-09-28] MEDS: METOPROLOL TARTRATE 50 MG TAB PO SCH ×2 (08:54→19:42)
[2023-09-28] MEDS: PANTOPRAZOLE 40 MG/10 ML VIAL IVP SCH (08:54)
[2023-09-28] MEDS: MAGNESIUM OXIDE 400 MG TAB PO SCH (08:54)
[2023-09-28] MEDS: FUROSEMIDE 10 MG/ML 4 ML VIAL IV SCH ×2 (08:54→19:41)
[2023-09-28 10:22] LABS: African American GFR (CKD) 49 (>60 ml/min/1.73 sqM); Anion Gap 11 mmol/L; Blood Urea Nitrogen 38 mg/dL (7-17); Calcium 9.4 mg/dL (8.4-10.2); Carbon Dioxide 27 mmol/L (22-30); Chloride 100 mmol/L (98-107); Glucose 158 mg/dL (74-99); Non-African American GFR(CKD) 42 (>60 ml/min/1.73 sqM); Potassium 3.7 mmol/L (3.5-5.1); Sodium 138 mmol/L (137-145)
[2023-09-28] MEDS: DILTIAZEM 125 MG in SODIUM CHLORIDE 0.9% 100 ML IV SCH (11:00)
--- NOTE | 2023-09-28 12:41 | P.PN ---
Subjective Progress Note Date: 09/28/23 A pleasant 73-year-old patient who follows with Dr. Sylvester in the office. Has a history of paroxysmal atrial fibrillation, hypertension, hypothyroidism, hyperlipidemia, pulmonary embolism status post EKOS February 2022. Presented with complaints of palpitations. Was found to be in atrial fibrillation with rapid ventricular response and started on Cardizem drip. She remains anticoagulated and has been on a beta jorge alberto at home. She remains in atrial fibrillation and Cardizem drip has continued. She is overall feeling a bit better continues to feel some fluttering in her chest but has no chest pain, dizziness or lightheadedness. She has noted some lower extremity edema over the past week. Her breathing has been stable. Objective - Vital Signs Vital signs: Vital Signs Temp 98.0 F 09/28/23 08:00 Pulse 75 09/28/23 12:00 Resp 18 09/28/23 12:00 BP 104/75 09/28/23 12:00 Pulse Ox 98 09/28/23 12:00 FiO2 Intake & Output 09/27/23 09/28/23 09/28/23 18:59 06:59 18:59 Intake Total 476.583 44.667 307.167 Output Total 325 700 Balance 151.583 -655.333 307.167 Weight 124.1 kg 137.4 kg Intake: Intake, IV Titration 118.583 44.667 71.167 Amount Diltiazem 125 mg In 118.583 44.667 71.167 Sodium Chloride 0.9% 100 ml @ 10 MG/HR 10 mls/hr IV .[id number] [facility] Rx#: [id number] Oral 358 236 Output: Urine 325 700 Other: Voiding Method Toilet Toilet Toilet Diaper Diaper Diaper # Voids 2 - Exam PHYSICAL EXAMINATION: HEENT: [Head is atraumatic, normocephalic. Pupils equal, round. Neck is supple. There is no elevated jugular venous pressure.] HEART EXAMINATION: [Heart sounds irregular rate and rhythm, S1 and S2 normal. No murmur or gallop heard.] CHEST EXAMINATION:[ Lungs are clear to auscultation and precussion. No chest wall tenderness is noted on palpation or with deep breathing.] ABDOMEN: [ Soft, nontender. Bowel sounds are heard. No organomegaly noted]. EXTREMITIES:[ 2+ peripheral pulses with evidence of mild peripheral edema and no calf tenderness noted]. NEUROLOGIC [patient is awake, alert and oriented x3.] . - Labs CBC & Chem 7: 09/27/23 08:19 09/28/23 08:34 Labs: Abnormal Lab Results - Last 24 Hours (Table) 09/27/23 09/28/23 Range/Units 08:19 08:34 BUN 38 H (7-17) mg/dL Creatinine 1.25 H (0.52-1.04) mg/dL Glucose 158 H (74-99) mg/dL Hemoglobin A1c 6.1 H (<=6.0) % Microbiology - Last 24 Hours (Table) 09/26/23 11:43 Urine Culture - Preliminary Urine,Clean Catch Gram Neg Bacilli Assessment and Plan Assessment: #1 paroxysmal atrial fibrillation with rapid ventricular response, appears to be more persistent this time #2 history of pulmonary embolism #3 hypertension #4 hyperlipidemia Plan: From cardiology's perspective we'll continue IV Lasix. Continue beta jorge alberto. We will switch to oral Cardizem. We will continue to follow the patient and provide further recommendations accordingly. MAIL DELIVERY SUPERVISOR note has been reviewed, I agree with a documented findings and plan of care. Patient was seen and examined.
--- NOTE | 2023-09-28 13:23 | P.PN ---
Subjective Progress Note Date: 09/28/23 This is a 73-year-old female with past medical history significant for atrial fibrillation, PE, status post EKOS 02/2022, hypertension, hypothyroidism admitted with atrial fibrillation with RVR and multiple other medical issues.Evaluated and treated by cardiology. Presented to the hospital with complaints of heart palpitations, hypertension , shortness of breath 1 week.Positive orthopnea , reports sleeping sitting up in a recliner as well as living downstairs in her home to avoid climbing stairs. Cardizem drip initiated, rate improving. Cardiology consult in place. Troponins negative 3 , proBNP pending .EKG rate atrial fibrillation with RVR heart rate 132 . Echo reported normal LV function, mild pulmonary hypertension, moderate mitral and moderate tricuspid regurgitation .Chest x-ray no acute pulmonary process. UA reports positive nitrates, many bacteria, small leukocytes, urine culture pending. 09/28. Patient seen and examined. Blood work done this morning showed WBC 7.4, hemoglobin 13.1, platelet count 182, sodium 1:30, potassium 4.3, BUN 30, creatinine 1.47. Currently on Cardizem drip, rate poorly controlled, continues to be in rapid rate REVIEW OF SYSTEMS: CONSTITUTIONAL: No fever, no malaise,. CARDIOVASCULAR: No chest pain, no palpitations, no syncope. PULMONARY: No shortness of breath, no cough, GASTROINTESTINAL: No diarrhea, no nausea, no vomiting, no abdominal pain. NEUROLOGICAL: No headaches, no weakness, PHYSICAL EXAMINATION: GENERAL: The patient is alert and oriented x3, not in any acute distress. Well developed, well nourished. HEENT: Pupils are round and equally reacting to light. EOMI. No scleral icterus. No conjunctival pallor. Normocephalic, atraumatic. No pharyngeal erythema. No thyromegaly. CARDIOVASCULAR: S1 and S2 present. No murmurs, rubs, or gallops. Tachycardic, irregular in rate and rhythm PULMONARY: Chest is clear to auscultation, no wheezing or crackles. ABDOMEN: Soft, nontender, nondistended, normoactive bowel sounds. No palpable organomegaly. MUSCULOSKELETAL: No joint swelling or deformity. EXTREMITIES: No cyanosis, clubbing, or pedal edema. NEUROLOGICAL: Gross neurological examination did not reveal any focal deficits. SKIN: No rashes. Assessment and plan Atrial fibrillation with rapid ventricular rate, symptomatic, in a patient with history of Paroxysmal atrial fibrillation anticoagulated with Eliquis acute on chronic CHF exacerbation, diastolic dysfunction, ef 55-60% Acute UTI, Acute renal failure Pulmonary embolism bilaterally status post EKOS, 03/14/2022 Pulmonary hypertension moderate mitral and tricuspid regurgitation Hypothyroidism Hypertension Hyperlipidemia Osteoarthritis with history right knee placement in July 2022. Morbid obesity, BMI 46 Monitor vital signs Monitor CBC Monitor CMP Continue telemetry monitoring Encourage use of incentive spirometer Follow-up urine cultures Continue IV Rocephin Continue IV Cardizem drip, continue Eliquis Strict I's and O's, daily weights, continue IV Lasix 40 g every 12 Cardiology following Regards to hyperlipidemia , continue Lipitor In regards to hypothyroid continue Synthyroid Labs and medication were reviewed.. Continue same treatment. Continue with symptomatic treatment. Resume home medication. Monitor labs and vitals. DVT and GI prophylaxis. Further recommendations as per clinical course of the patient Dictation was produced using [employer] dictation software. please excuse any grammatical, word or spelling errors. Objective - Vital Signs Vital signs: Vital Signs Temp 98.0 F 09/28/23 08:00 Pulse 127 H 09/28/23 08:00 Resp 18 09/28/23 08:00 BP 109/70 09/28/23 08:00 Pulse Ox 93 L 09/28/23 08:00 FiO2 Intake & Output 09/27/23 09/28/23 09/28/23 18:59 06:59 18:59 Intake Total 476.583 44.667 Output Total 325 700 Balance 151.583 -655.333 Weight 124.1 kg 137.4 kg Intake: Intake, IV Titration 118.583 44.667 Amount Diltiazem 125 mg In 118.583 44.667 Sodium Chloride 0.9% 100 ml @ 10 MG/HR 10 mls/hr IV .[id number] [facility] Rx#: [id number] Oral 358 Output: Urine 325 700 Other: Voiding Method Toilet Toilet Toilet Diaper Diaper Diaper # Voids 2 - Labs CBC & Chem 7: 09/27/23 08:19 09/28/23 08:34 Labs: Abnormal Lab Results - Last 24 Hours (Table) 09/27/23 09/27/23 Range/Units 08:19 08:19 BUN 38 H (7-17) mg/dL Creatinine 1.47 H (0.52-1.04) mg/dL Glucose 105 H (74-99) mg/dL Hemoglobin A1c 6.1 H (<=6.0) % Microbiology - Last 24 Hours (Table) 09/26/23 11:43 Urine Culture - Preliminary Urine,Clean Catch Gram Neg Bacilli
[2023-09-28] MEDS: DILTIAZEM ORAL 30 MG TAB PO SCH ×3 (13:27→19:42)
[2023-09-28] MEDS: ATORVASTATIN 80 MG TAB PO SCH (19:42)
[2023-09-29] MEDS: LEVOTHYROXINE 88 MCG TAB PO SCH (06:22)
[2023-09-29] MEDS: METOPROLOL TARTRATE 50 MG TAB PO SCH ×2 (08:53→21:25)
[2023-09-29] MEDS: MAGNESIUM OXIDE 400 MG TAB PO SCH (08:53)
[2023-09-29] MEDS: FUROSEMIDE 10 MG/ML 4 ML VIAL IV SCH ×2 (08:53→21:26)
[2023-09-29] MEDS: PANTOPRAZOLE 40 MG/10 ML VIAL IVP SCH (08:53)
[2023-09-29] MEDS: DILTIAZEM ORAL 30 MG TAB PO SCH ×3 (08:53→21:25)
[2023-09-29] MEDS: APIXABAN 5 MG TAB PO SCH ×2 (08:53→21:26)
[2023-09-29 10:24] LABS: African American GFR (CKD) 58 (>60 ml/min/1.73 sqM); Anion Gap 11 mmol/L; Blood Urea Nitrogen 35 mg/dL (7-17); Calcium 9.3 mg/dL (8.4-10.2); Carbon Dioxide 26 mmol/L (22-30); Chloride 100 mmol/L (98-107); Glucose 129 mg/dL (74-99); Non-African American GFR(CKD) 50 (>60 ml/min/1.73 sqM); Potassium 3.6 mmol/L (3.5-5.1); Sodium 137 mmol/L (137-145)
--- NOTE | 2023-09-29 12:40 | P.PN ---
Subjective Progress Note Date: 09/29/23 This is a 73-year-old female with past medical history significant for atrial fibrillation, PE, status post EKOS 02/2022, hypertension, hypothyroidism admitted with atrial fibrillation with RVR and multiple other medical issues.Evaluated and treated by cardiology. Presented to the hospital with complaints of heart palpitations, hypertension , shortness of breath 1 week.Positive orthopnea , reports sleeping sitting up in a recliner as well as living downstairs in her home to avoid climbing stairs. Cardizem drip initiated, rate improving. Cardiology consult in place. Troponins negative 3 , proBNP pending .EKG rate atrial fibrillation with RVR heart rate 132 . Echo reported normal LV function, mild pulmonary hypertension, moderate mitral and moderate tricuspid regurgitation .Chest x-ray no acute pulmonary process. UA reports positive nitrates, many bacteria, small leukocytes, urine culture pending. 09/28. Patient seen and examined. Blood work done this morning showed WBC 7.4, hemoglobin 13.1, platelet count 182, sodium 1:30, potassium 4.3, BUN 30, creatinine 1.47. Currently on Cardizem drip, rate poorly controlled, continues to be in rapid rate 09/29. Patient seen and examined. Heart rate is improved this morning, currently in 70s. On room air. Denies Any shortness of breath or palpitations. Vital signs stable REVIEW OF SYSTEMS: CONSTITUTIONAL: No fever, no malaise,. CARDIOVASCULAR: No chest pain, no palpitations, no syncope. PULMONARY: No shortness of breath, no cough, GASTROINTESTINAL: No diarrhea, no nausea, no vomiting, no abdominal pain. NEUROLOGICAL: No headaches, no weakness, PHYSICAL EXAMINATION: GENERAL: The patient is alert and oriented x3, not in any acute distress. Well developed, well nourished. HEENT: Pupils are round and equally reacting to light. EOMI. No scleral icterus. No conjunctival pallor. Normocephalic, atraumatic. No pharyngeal erythema. No thyromegaly. CARDIOVASCULAR: S1 and S2 present. No murmurs, rubs, or gallops. Tachycardic, irregular in rate and rhythm PULMONARY: Chest is clear to auscultation, no wheezing or crackles. ABDOMEN: Soft, nontender, nondistended, normoactive bowel sounds. No palpable organomegaly. MUSCULOSKELETAL: No joint swelling or deformity. EXTREMITIES: No cyanosis, clubbing, or pedal edema. NEUROLOGICAL: Gross neurological examination did not reveal any focal deficits. SKIN: No rashes. Assessment and plan Atrial fibrillation with rapid ventricular rate, symptomatic, in a patient with history of Paroxysmal atrial fibrillation anticoagulated with Eliquis acute on chronic CHF exacerbation, diastolic dysfunction, ef 55-60% Acute UTI, Acute renal failure Pulmonary embolism bilaterally status post EKOS, 03/14/2022 Pulmonary hypertension moderate mitral and tricuspid regurgitation Hypothyroidism Hypertension Hyperlipidemia Osteoarthritis with history right knee placement in July 2022. Morbid obesity, BMI 46 Monitor vital signs Monitor CBC Monitor CMP Continue telemetry monitoring Encourage use of incentive spirometer Follow-up urine cultures Continue IV Rocephin today is day 4, patient can complete 5 days of antibiotic Continue Lopressor, oral Cardizem, Eliquis Strict I's and O's, daily weights, continue IV Lasix 40 g every 12 Cardiology following Regards to hyperlipidemia , continue Lipitor In regards to hypothyroid continue Synthyroid Labs and medication were reviewed.. Continue same treatment. Continue with symptomatic treatment. Resume home medication. Monitor labs and vitals. DVT and GI prophylaxis. Further recommendations as per clinical course of the patient Dictation was produced using [employer] dictation software. please excuse any grammatical, word or spelling errors. Objective - Vital Signs Vital signs: Vital Signs Temp 97.7 F 09/28/23 20:00 Pulse 79 09/29/23 08:00 Resp 18 09/29/23 08:00 BP 130/73 09/29/23 08:00 Pulse Ox 99 09/29/23 08:00 FiO2 Intake & Output 09/28/23 09/29/23 09/29/23 19:59 06:59 18:59 Intake Total 472 Output Total Balance 472 Weight Intake: Intake, IV Titration Amount Diltiazem 125 mg In Sodium Chloride 0.9% 100 ml @ 10 MG/HR 10 mls/hr IV .[id number] [facility] Rx#: [id number] Oral 472 Output: Urine Other: Voiding Method Bedside Commode Diaper # Voids - Labs CBC & Chem 7: 09/27/23 08:19 09/29/23 09:10 Labs: Abnormal Lab Results - Last 24 Hours (Table) 09/28/23 Range/Units 08:34 BUN 38 H (7-17) mg/dL Creatinine 1.25 H (0.52-1.04) mg/dL Glucose 158 H (74-99) mg/dL
--- NOTE | 2023-09-29 12:43 | P.PN ---
Subjective Progress Note Date: 09/29/23 This is a pleasant 73-year-old patient who follows with Dr. Sylvester in the office. Has a history of paroxysmal atrial fibrillation, hypertension, hypothyroidism, hyperlipidemia, pulmonary embolism status post EKOS February 2022. Presented with complaints of palpitations. Was found to be in atrial fibrilla tion with rapid ventricular response and started on Cardizem drip. She remains anticoagulated and has been on a beta jorge alberto at home. She remains in atrial fibrillation and Cardizem drip has continued. She is overall feeling a bit better continues to feel some fluttering in her chest but has no chest pain, dizziness or lightheadedness. She has noted some lower extremity edema over the past week. Her breathing has been stable. 09/29/2023 She was seen and examined resting in a chair. She converted to sinus mechanism around 10 AM this morning. She is overall feeling significantly better. She remains on the metoprolol tartrate 50 mg by mouth twice a day and Cardizem 30 mg by mouth 3 times a day. Also remains on IV Lasix 40 mg IV push every 12 hours. Continues to have lower extremity edema. NT proBNP is improved. Objective - Vital Signs Vital signs: Vital Signs Temp 97.7 F 09/28/23 20:00 Pulse 76 09/29/23 11:21 Resp 16 09/29/23 11:21 BP 104/72 09/29/23 11:21 Pulse Ox 96 09/29/23 11:21 FiO2 Intake & Output 09/28/23 09/29/23 09/29/23 19:59 06:59 18:59 Intake Total 472 Output Total 2200 Balance -1728 Weight Intake: Intake, IV Titration Amount Diltiazem 125 mg In Sodium Chloride 0.9% 100 ml @ 10 MG/HR 10 mls/hr IV .[id number] [facility] Rx#: [id number] Oral 472 Output: Urine 2200 Other: Voiding Method Bedside Commode Diaper # Voids 1 - Exam PHYSICAL EXAMINATION: HEENT: [Head is atraumatic, normocephalic. Pupils equal, round. Neck is supple. There is no elevated jugular venous pressure.] HEART EXAMINATION: [Heart sounds regular rate and rhythm, S1 and S2 normal. No murmur or gallop heard.] CHEST EXAMINATION:[ Lungs are clear to auscultation and precussion. No chest wall tenderness is noted on palpation or with deep breathing.] ABDOMEN: [ Soft, nontender. Bowel sounds are heard. No organomegaly noted]. EXTREMITIES:[ 2+ peripheral pulses with evidence of mild peripheral edema and no calf tenderness noted]. NEUROLOGIC [patient is awake, alert and oriented x3.] . - Labs CBC & Chem 7: 09/27/23 08:19 09/29/23 09:10 Labs: Abnormal Lab Results - Last 24 Hours (Table) 09/29/23 Range/Units 09:10 BUN 35 H (7-17) mg/dL Creatinine 1.09 H (0.52-1.04) mg/dL Glucose 129 H (74-99) mg/dL Assessment and Plan Assessment: #1 paroxysmal atrial fibrillation with rapid ventricular response, currently maintaining sinus mechanism #2 history of pulmonary embolism #3 hypertension #4 hyperlipidemia Plan: From cardiology's perspective dictations were reviewed and we will continue the same. We will continue to follow the patient and provide further recomme ndations accordingly. RESIDENTIAL CONCIERGE note has been reviewed, I agree with a documented findings and plan of care. Patient was seen and examined.
[2023-09-29] MEDS ORDERED: CALCIUM CARBONATE 500 MG CHEWABLE PO PRN (13:56)
[2023-09-29] MEDS: ONDANSETRON 4 MG/2 ML VIAL IVP PRN ×2 (14:54→21:26)
[2023-09-29] MEDS: ALBUTEROL NEBULIZED 2.5 MG/3 ML INHALATION PRN (15:51)
--- NOTE | 2023-09-29 16:27 | XR ---
EXAMINATION TYPE: XR chest 1V DATE OF EXAM: 09/29/2023 COMPARISON: 02/27/2022 HISTORY: Cough and shortness of breath TECHNIQUE: Single frontal view of the chest is obtained. FINDINGS: There is diffuse interstitial opacity and mild interstitial edema. The heart is borderline normal in size. The findings suggest the presence of CHF although acute interstitial pneumonia is not excluded. There is no pleural effusion or pneumothorax. The osseous structures are intact. IMPRESSION: Acute cardiopulmonary disease as described above. CHF versus diffuse interstitial pneumo cherie.
[2023-09-29] MEDS: guaiFENesin 600 MG TABLET.ER PO SCH ×2 (17:32→21:49)
[2023-09-29] MEDS ORDERED: guaiFENesin 600 MG TABLET.ER PO SCH (21:00)
[2023-09-29] MEDS: ATORVASTATIN 80 MG TAB PO SCH (21:25)
[2023-09-30] MEDS: ALBUTEROL NEBULIZED 2.5 MG/3 ML INHALATION PRN ×2 (03:22→12:27)
[2023-09-30] MEDS: ONDANSETRON 4 MG/2 ML VIAL IVP PRN ×2 (03:29→12:41)
[2023-09-30] MEDS: LEVOTHYROXINE 88 MCG TAB PO SCH (06:10)
[2023-09-30 08:50] LABS: HCT 44.4 % (34.0-46.0); HGB 14.5 gm/dL (11.4-16.0); Hypochromasia Slight; MCH 32.4 pg (25.0-35.0); MCHC 32.5 g/dL (31.0-37.0); MCV 99.5 fL (80.0-100.0); Mean Platelet Volume 8.3; Platelet Count 205 k/uL (150-450); RBC 4.46 m/uL (3.80-5.40); RDW 13.8 % (11.5-15.5); WBC 13.7 k/uL (3.8-10.6)
[2023-09-30 09:01] LABS: ALT 18 U/L (4-34); AST 19 U/L (14-36); African American GFR (CKD) 48 (>60 ml/min/1.73 sqM); Albumin 4.1 g/dL (3.5-5.0); Alkaline Phosphatase 103 U/L (38-126); Anion Gap 12 mmol/L; Blood Urea Nitrogen 37 mg/dL (7-17); Calcium 9.6 mg/dL (8.4-10.2); Carbon Dioxide 27 mmol/L (22-30); Chloride 96 mmol/L (98-107); Glucose 116 mg/dL (74-99); Non-African American GFR(CKD) 42 (>60 ml/min/1.73 sqM); Potassium 3.9 mmol/L (3.5-5.1); Sodium 135 mmol/L (137-145); Total Bilirubin 3.2 mg/dL (0.2-1.3); Total Protein 6.8 g/dL (6.3-8.2)
[2023-09-30] MEDS: PANTOPRAZOLE 40 MG/10 ML VIAL IVP SCH (09:36)
[2023-09-30] MEDS: METOPROLOL TARTRATE 50 MG TAB PO SCH ×2 (09:37→18:46)
[2023-09-30] MEDS: POTASSIUM CHLORIDE ER 20 MEQ TAB.ER PO SCH (09:37)
[2023-09-30] MEDS: DILTIAZEM ORAL 30 MG TAB PO SCH ×2 (09:37→16:47)
[2023-09-30] MEDS: guaiFENesin 600 MG TABLET.ER PO SCH ×2 (09:37→20:16)
[2023-09-30] MEDS: FUROSEMIDE 10 MG/ML 4 ML VIAL IV SCH ×3 (09:37→23:57)
[2023-09-30] MEDS: APIXABAN 5 MG TAB PO SCH ×2 (09:37→20:15)
[2023-09-30] MEDS: MAGNESIUM OXIDE 400 MG TAB PO SCH (09:38)
--- NOTE | 2023-09-30 12:20 | P.PN ---
Subjective Progress Note Date: 09/30/23 History of present illness: This is a pleasant 73-year-old patient who follows with Dr. Sylvester in the of [facility]. Has a history of paroxysmal atrial fibrillation, hypertension, hypothyroidism, hyperlipidemia, pulmonary embolism status post EKOS February 2022. Presented with complaints of palpitations. Was found to be in atrial fibrillation with rapid ventricular response and started on Cardizem drip. She remains anticoagulated and has been on a beta jorge alberto at home. She remains in atrial fibrillation and Cardizem drip has continued. She is overall feeling a bit better continues to feel some fluttering in her chest but has no chest pain, dizziness or lightheadedness. She has noted some lower extremity edema over the past week. Her breathing has been stable. 09/29/2023 She was seen and examined resting in a chair. She converted to sinus mechanism around 10 AM this morning. She is overall feeling significantly better. She remains on the metoprolol tartrate 50 mg by mouth twice a day and Cardizem 30 mg by mouth 3 times a day. Also remains on IV Lasix 40 mg IV push every 12 hours. Continues to have lower extremity edema. NT proBNP is improved. 09/30 Patient is seen today in follow-up. Patient developed shortness of breath during the night and required oxygen at 4 L nasal cannula. She was started on IV Lasix 40 mg every 12 hours and his had good urine output. Patient has been m aintained on eliquis, Cardizem 30 mg 3 times daily and Lopressor 50 mg twice daily. Heart rate is in the 70s, blood pressure 131/75, pulse ox 93% on 4 L nasal cannula. WBC 13.7. Sodium 135, potassium 3.9, BUN 37 creatinine 1.6. Echocardiogram reveals normal left ventricular size and systolic motion. Moderate mitral with mild to moderate tricuspid regurgitation and mild pulmonary hypertension. Physical examination: Gen: This is a morbidly obese 73-year-old female sitting in chair in no acute distress VS: reviewed HEENT: Head is atraumatic, normocephalic. Pupils equal, round. Sclerae is anicteric. NECK: Supple. No JVD. . LUNGS: Diminished at the bases. No intercostal retractions. HEART: Regular rate and rhythm. No murmur. ABDOMEN: Soft No tenderness. EXTREMITIES: Mild bilateral pedal edema. No calf tenderness. NEUROLOGICAL: Patient is awake, alert and oriented x3. Assessment: Paroxysmal atrial fibrillation with RVR, converted to sinus rhythm History of pulmonary embolism Hypertension Hyperlipidemia Plan: Increase frequency of IV Lasix 40 mg every 8 hours Monitor I&O, daily weights, electrolytes and renal function Further recommendations to follow based upon clinical course Nurse practitioner note has been reviewed, I agree with documented findings and plan of care. Patient was seen and examined. Objective - Vital Signs Vital signs: Vital Signs Temp 98.1 F 09/30/23 09:31 Pulse 78 09/30/23 09:31 Resp 24 09/30/23 09:31 BP 131/75 09/30/23 09:31 Pulse Ox 93 L 09/30/23 09:31 FiO2 Intake & Output 09/29/23 09/30/23 09/30/23 18:59 06:59 18:59 Intake Total 712 Output Total 2400 300 Balance -1688 -300 Weight 134.5 kg Intake: Oral 712 Output: Urine 2400 300 Other: Voiding Method Bedside Commode Bedside Commode Toilet Diaper Bedside Commode # Voids 1 1 # Bowel Movements 1 - Labs CBC & Chem 7: 09/30/23 07:30 09/30/23 07:30 Labs: Abnormal Lab Results - Last 24 Hours (Table) 09/30/23 09/30/23 Range/Units 07:30 07:30 WBC 13.7 H (3.8-10.6) k/uL Sodium 135 L (137-145) mmol/L Chloride 96 L (98-107) mmol/L BUN 37 H (7-17) mg/dL Creatinine 1.26 H (0.52-1.04) mg/dL Glucose 116 H (74-99) mg/dL Total Bilirubin 3.2 H (0.2-1.3) mg/dL Microbiology - Last 24 Hours (Table) 09/26/23 11:43 Urine Culture - Final Urine,Clean Catch Escherichia coli
--- NOTE | 2023-09-30 12:53 | XR ---
EXAMINATION TYPE: XR chest 1V portable DATE OF EXAM: 09/30/2023 COMPARISON: 09/29/2023 HISTORY: Shortness of breath TECHNIQUE: Single frontal view of the chest is obtained. FINDINGS: Bilateral perihilar consolidation is new. There are small bilateral effusions and basilar consolidation. No pneumothorax. Limited inspiration. Biapical pleural thickening. Chronic appearing a rthritic changes of both shoulders. Degenerative change spine. IMPRESSION: 1. Worsening of the chest x-ray with large perihilar consolidation noted greater on the right. Correl ate for pulmonary edema versus diffuse pneumonia.
[2023-09-30 13:00] LABS: Glucose,Whole Blood 185 mg/dL (70-110)
[2023-09-30 13:35] LABS: Glucose,Whole Blood 206 mg/dL (70-110)
[2023-09-30] MEDS ORDERED: FUROSEMIDE 10 MG/ML 4 ML VIAL IV STA (14:10)
--- NOTE | 2023-09-30 15:07 | P.CNPUL ---
History of Present Illness Consult date: 09/30/23 Requesting physician: Regulo Greene Reason for consult: dyspnea, hypoxemia, abnormal CXR/CT Chief complaint: Shortness of breath. History of present illness: Pulmonary consult dated 09/30/2023. 73-year-old female who presented to the emergency department on September 26, complaining of arrhythmias, and palpitations. The patient does have a history of hypertension, atrial fibrillation, hyperlipidemia, pulmonary embolism, and hypothyroidism. The patient apparently was having some lower extremity edema, shortness of breath, and orthopnea. She also had mild exertional dyspnea. The patient denied any chest pain or chest discomfort. She was seen by the ER physician, and admitted with a diagnosis of atrial fibrillation, CHF, and urinary tract infection. Today, a rapid response was called on this patient, and, R ICU charge nurse, who evaluated the patient, and thought the patient should come down to the intensive care unit, for further monitoring and management. She was given some IV Lasix, and placed on BiPAP, with settings of 16/6, and 100%. She was seen in the intensive care unit, room 255. She was sitting up in bed, with mild respiratory distress, on the BiPAP device. White count was 13.7, hemoglobin 14.5, hematocrit 44.4, and a normal platelet count. Sodium 135, potassium 3.9, chlorides 96, CO2 27, anion gap 12, BUN 37, and creatinine 1.26. N-terminal proBNP, on September 29, was 7020. The patient had chest x-rays on the and on the . Today's chest x-ray shows worsening pulmonary edema. Review of Systems REVIEW OF SYSTEMS: CONSTITUTIONAL: [Negative.] NEUROLOGIC: [ Negative.] HEENT: [ Negative.] CARDIAC: Palpitations, rapid heartbeat, lower extremity edema, orthopnea. PULMONARY: Shortness of breath. GI: [Negative.] : [Negative.] RHEUMATOLOGIC: [ Negative.] IMMUNOLOGIC: [ Negative.] ENDOCRINE: [Negative. ] DERMATOLOGIC: [Negative.] Past Medical History Past Medical History: Atrial Fibrillation, Hyperlipidemia, Hypertension, Osteoarthritis (OA), Pulmonary Embolus (PE), Thyroid Disorder Additional Past Medical History / Comment(s): PE bilateral with EKOS 02/2022 History of Any Multi-Drug Resistant Organisms: None Reported Past Surgical History: Cholecystectomy, Hysterectomy Additional Past Surgical History / Comment(s): Pt states she had a rt hip replacement 20 years ago, right knee replacement jul 2022 Past Anesthesia/Blood Transfusion Reactions: No Reported Reaction Past Psychological History: No Psychological Hx Reported Smoking Status: Never smoker Past Alcohol Use History: None Reported Past Drug Use History: None Reported - Past Family History Father Family Medical History: AICD/Pacemaker Additional Family Medical History / Comment(s): cabg at 84 Mother Additional Family Medical History / Comment(s): non hodgkins lymphoma Medications and Allergies Home Medications Medication Instructions Recorded Confirmed Type Atorvastatin [Lipitor] 80 mg PO HS 02/25/22 09/26/23 History Metoprolol Tartrate [Lopressor] 50 mg PO BID 60 Days #120 tab 03/02/22 09/26/23 Rx Apixaban [Eliquis] 5 mg PO BID 09/09/22 09/26/23 History Levothyroxine Sodium [Synthroid] 88 mcg PO DAILY 09/09/22 09/26/23 History Furosemide [Lasix] 40 mg PO DAILY 09/26/23 09/26/23 History Magnesium 250 mg PO DAILY 09/26/23 09/26/23 History Allergies Allergy/AdvReac Type Severity Reaction Status Date / Time Penicillins Allergy Rash/Hives Verified 09/26/23 11:34 @ Allergy testing site strawberry Allergy Rash/Hives Verified 09/26/23 11:34 all over body tramadol Allergy Unknown Verified 09/26/23 11:34 Physical Exam Osteopathic Statement: *. No significant issues noted on an osteopathic structural exam other than those noted in the History and Physical/Consult. Vitals: Vital Signs Temp Pulse Pulse Pulse Resp BP BP 09/30/23 14:00 65 14 118/99 09/30/23 13:15 09/30/23 13:12 32 H 09/30/23 13:10 31 H 09/30/23 13:09 87 31 H 159/84 09/30/23 12:39 74 22 09/30/23 12:32 72 24 09/30/23 12:30 26 H 09/30/23 12:22 26 H 09/30/23 12:20 26 H 09/30/23 11:08 98.3 F 73 20 106/71 09/30/23 09:31 98.1 F 78 24 131/75 09/30/23 04:05 98.0 F 72 20 117/85 09/30/23 00:44 98.0 F 87 20 126/75 09/29/23 20:20 97.9 F 72 18 102/80 09/29/23 16:04 70 09/29/23 16:00 76 18 117/70 09/29/23 15:52 76 Pulse Ox FiO2 09/30/23 14:00 96 100 09/30/23 13:15 100 09/30/23 13:12 94 L 100 09/30/23 13:10 91 L 100 09/30/23 13:09 88 L 80 09/30/23 12:39 09/30/23 12:32 09/30/23 12:30 87 L 09/30/23 12:22 86 L 09/30/23 12:20 84 L 09/30/23 11:08 92 L 09/30/23 09:31 93 L 09/30/23 04:05 90 L 09/30/23 00:44 92 L 09/29/23 20:20 90 L 09/29/23 16:04 09/29/23 16:00 95 09/29/23 15:52 Intake and Output 09/29/23 09/30/23 09/30/23 22:59 06:59 14:59 Intake Total 120 120 Output Total 200 950 Balance -80 -830 Intake: Oral 120 120 Output: Urine 200 950 Other: Voiding Method Bedside Commode Bedside Commode Indwelling Catheter # Voids 1 # Bowel Movements 1 0 Weight 134.5 kg Mild respiratory distress, with mild conversational dyspnea, currently on BiPAP. Oriented 3. HEENT examination is grossly unremarkable. Mucous membranes are moist. No oral lesions. Neck supple. Full range of motion. No adenopathy thyromegaly or neck vein distention. Cardiovascular examination reveals regular rhythm rate. S1-S2 normal. No S3 or S4. No discernible murmur noted. Heart rate 70 bpm. Lungs reveal by basilar crackles. Breath sounds are equal bilaterally. No rhonchi. No wheezes. Saturations are 100% on BiPAP. Abdomen soft bowel sounds are heard. No masses or tenderness. Extremities are intact. No cyanosis or clubbing. Mild lower extremity edema. Skin is without rash or lesion. Neurologic examination is brief but nonfocal. Results - Laboratory Findings CBC and BMP: 09/30/23 07:30 09/30/23 07:30 PT/INR, D-dimer PT 13.2 sec (10.0-12.5) H 09/26/23 09:23 INR 1.2 (<1.2) H 09/26/23 09:23 Abnormal lab findings: Abnormal Labs 09/26/23 09/26/23 09/26/23 09:23 09:23 10:50 WBC PT 13.2 H INR 1.2 H APTT 31.9 H Sodium Chloride BUN 35 H Creatinine 1.37 H Glucose 139 H POC Glucose (mg/dL) Hemoglobin A1c Total Bilirubin 1.9 H Urine Appearance Cloudy H Urine Protein 1+ H Urine Blood Small H Urine Nitrite Positive H Ur Leukocyte Esterase Small H Urine WBC 14 H Urine Bacteria Many H Hyaline Casts 6 H Urine Mucus Rare H 09/27/23 09/27/23 09/28/23 08:19 08:19 08:34 WBC PT INR APTT Sodium Chloride BUN 38 H 38 H Creatinine 1.47 H 1.25 H Glucose 105 H 158 H POC Glucose (mg/dL) Hemoglobin A1c 6.1 H Total Bilirubin Urine Appearance Urine Protein Urine Blood Urine Nitrite Ur Leukocyte Esterase Urine WBC Urine Bacteria Hyaline Casts Urine Mucus 09/29/23 09/30/23 09/30/23 09:10 07:30 07:30 WBC 13.7 H PT INR APTT Sodium 135 L Chloride 96 L BUN 35 H 37 H Creatinine 1.09 H 1.26 H Glucose 129 H 116 H POC Glucose (mg/dL) Hemoglobin A1c Total Bilirubin 3.2 H Urine Appearance Urine Protein Urine Blood Urine Nitrite Ur Leukocyte Esterase Urine WBC Urine Bacteria Hyaline Casts Urine Mucus 09/30/23 09/30/23 12:59 13:33 WBC PT INR APTT Sodium Chloride BUN Creatinine Glucose POC Glucose (mg/dL) 185 H 206 H Hemoglobin A1c Total Bilirubin Urine Appearance Urine Protein Urine Blood Urine Nitrite Ur Leukocyte Esterase Urine WBC Urine Bacteria Hyaline Casts Urine Mucus - Diagnostic Findings Chest x-ray: image reviewed Assessment and Plan Assessment: Acute hypoxemic respiratory failure, secondary to worsening congestive heart failure. History of chronic atrial fibrillation. History of hypertension. History of hyperlipidemia. History of pulmonary embolism. History of hypothyroidism. History of osteoarthritis. Plan: Plan dated 09/30/2023. The patient is seen today in the intensive care unit, room 255. She is on BiPAP currently, and I've asked the nurses, to inform respiratory therapy, to wean the patient's FiO2 down, as she improves. The patient has received additional Lasix, 40 mg earlier, and another 40 mg IV push now. The patient was placed on 40 mg of Lasix, IV push every 8 hours. We will continue to follow and make recommendations along the way. Labs, x-rays, and medications are reviewed. Prognosis is guarded. Time with Patient: Greater than 30
--- NOTE | 2023-09-30 15:53 | P.PN ---
Subjective Progress Note Date: 09/30/23 H&P Date: 09/27/23 Chief Complaint: Palpitations, dyspnea This is a 73-year-old female with past medical history significant for atrial fibrillation, PE, status post EKOS 02/2022, hypertension, hypothyroidism admitted with atrial fibrillation with RVR and multiple other medical issues.Evaluated and treated by cardiology. Presented to the hospital with complaints of heart palpitations, hypertension , shortness of breath 1 week.Positive orthopnea , reports sleeping sitting up in a recliner as well as living downstairs in her home to avoid climbing stairs. Cardizem drip initiated, rate improving. Cardiology consult in place. Troponins negative 3 , proBNP pending .EKG rate atrial fibrillation with RVR heart rate 132 . Echo reported normal LV f unction, mild pulmonary hypertension, moderate mitral and moderate tricuspid regurgitation .Chest x-ray no acute pulmonary process. UA reports positive nitrates, many bacteria, small leukocytes, urine culture pending. 09/30/2023 recently placed on 2 L nasal cannula, then increased to 4 L, ebony ntaining O2 sats in the low 90s .complains of mild increased shortness of breath, which she reports started actually during the night. She has been on Lasix IV push every 12 hours, 24-hour I&O reflecting a negative fluid balance. Renal function mildly worsened, BUN 37, creatinine 1.26. Sodium 125 .Maintained on Rocephin for acute UTI. Afebrile, WBC 13.7. Blood sugars controlled. Objective - Vital Signs Vital signs: Vital Signs Temp 98.3 F 09/30/23 11:08 Pulse 67 09/30/23 15:00 Resp 26 H 09/30/23 15:00 BP 129/75 09/30/23 15:00 Pulse Ox 97 09/30/23 15:00 FiO2 80 09/30/23 15:00 Intake & Output 09/29/23 09/30/23 09/30/23 18:59 06:59 18:59 Intake Total 712 120 Output Total 2400 1075 Balance -9090 -317 Weight 134.5 kg Intake: Oral 712 120 Output: Urine 2400 1075 Other: Voiding Method Bedside Commode Bedside Commode Indwelling Catheter Diaper # Voids 1 1 # Bowel Movements 1 0 - Exam PHYSICAL EXAM: VITAL SIGNS: [As above] GENERAL: Alert and oriented 3,Sitting up in bed, no acute distress. HEENT: Normocephalic, Conjunctivae normal. eyes normal, MMM. NECK: Supple, No JVD. CARDIOVASCULAR: S1, S2 regular. No murmur RESPIRATION: Unlabored, equal air entry, bilateral bases diminished ABDOMEN: Soft, nontender. Positive bowel sounds. LEGS: Positive edema NERVOUS SYSTEM: Cranial N 2-12 grossly normal.No focal deficits. Strength and sensation grossly intact. Skin: Warm and dry, no rash - Labs CBC & Chem 7: 09/30/23 07:30 09/30/23 07:30 Labs: Abnormal Lab Results - Last 24 Hours (Table) 09/30/23 09/30/23 09/30/23 Range/Units 07:30 07:30 12:59 WBC 13.7 H (3.8-10.6) k/uL Sodium 135 L (137-145) mmol/L Chloride 96 L (98-107) mmol/L BUN 37 H (7-17) mg/dL Creatinine 1.26 H (0.52-1.04) mg/dL Glucose 116 H (74-99) mg/dL POC Glucose (mg/dL) 185 H (70-110) mg/dL Total Bilirubin 3.2 H (0.2-1.3) mg/dL 09/30/23 Range/Units 13:33 WBC (3.8-10.6) k/uL Sodium (137-145) mmol/L Chloride (98-107) mmol/L BUN (7-17) mg/dL Creatinine (0.52-1.04) mg/dL Glucose (74-99) mg/dL POC Glucose (mg/dL) 206 H (70-110) mg/dL Total Bilirubin (0.2-1.3) mg/dL Microbiology - Last 24 Hours (Table) 09/26/23 11:43 Urine Culture - Final Urine,Clean Catch Escherichia coli Assessment and Plan Assessment: Paroxysmal Atrial fibrillation with rapid ventricular rate, converted to sinus rhythm ,anticoagulated with Eliquis Acute on chronic CHF exacerbation, diastolic dysfunction, ef 55-60% Acute hypoxic respiratory failure secondary to the above Acute UTI, culture reporting E. coli Acute renal failure Pulmonary embolism bilaterally status post EKOS, 03/14/2022 Pulmonary hypertension moderate mitral and tricuspid regurgitation Hypothyroidism Hypertension Hyperlipidemia Osteoarthritis with history right knee placement in July 2022. Morbid obesity, BMI 46 Plan: Continue on current medication regime ,monitoring and symptomatic treatment.Diuretics as per cardiology. Close monitoring of renal function with repeat labs ordered for a.m. chest x-ray ordered. The impression and plan of care has been dictated as directed. : I performed a history and examination of this patient, discussed the same with the dictator. I agree with the dictator's note ,documented as a scribe. Any additional findings or plans will be noted.
[2023-09-30] MEDS ORDERED: DILTIAZEM DRIP BOLUS FROM BAG 1 MG SOLN IV STA (19:11)
[2023-09-30] MEDS ORDERED: DILTIAZEM 125 MG in SODIUM CHLORIDE 0.9% 100 ML IV SCH (19:15)
[2023-09-30] MEDS: NOREPINEPHRINE 4 MG in SODIUM CHLORIDE 0.9% 250 ML IV SCH (20:13)
[2023-09-30] MEDS: ATORVASTATIN 80 MG TAB PO SCH (20:16)
[2023-09-30] MEDS: DILTIAZEM 125 MG in SODIUM CHLORIDE 0.9% 100 ML IV SCH ×2 (22:00→22:56)
[2023-10-01] MEDS: NOREPINEPHRINE 4 MG in SODIUM CHLORIDE 0.9% 250 ML IV SCH (01:36)
[2023-10-01] MEDS: DILTIAZEM 125 MG in SODIUM CHLORIDE 0.9% 100 ML IV SCH ×2 (04:27→14:30)
[2023-10-01 06:09] LABS: Basophils % (A) 0 %; Eosinophils # (A) 0.1 k/uL (0-0.7); Eosinophils % (A) 1 %; HCT 43.1 % (34.0-46.0); Lymphocytes # (A) 1.3 k/uL (1.0-4.8); Lymphocytes % (A) 14 %; MCHC 32.5 g/dL (31.0-37.0); MCV 98.2 fL (80.0-100.0); Mean Platelet Volume 8.2; Monocytes # (A) 0.7 k/uL (0-1.0); Monocytes % (A) 8 %; Neutrophils # (A) 7.1 k/uL (1.3-7.7); Neutrophils % (A) 76 %; Platelet Count 223 k/uL (150-450); RBC 4.39 m/uL (3.80-5.40); RDW 13.9 % (11.5-15.5); WBC 9.4 k/uL (3.8-10.6)
[2023-10-01 06:21] LABS: African American GFR (CKD) 47 (>60 ml/min/1.73 sqM); Anion Gap 12 mmol/L; Blood Urea Nitrogen 38 mg/dL (7-17); Calcium 9.1 mg/dL (8.4-10.2); Carbon Dioxide 28 mmol/L (22-30); Chloride 96 mmol/L (98-107); Glucose 118 mg/dL (74-99); Non-African American GFR(CKD) 41 (>60 ml/min/1.73 sqM); Potassium 4.1 mmol/L (3.5-5.1); Sodium 136 mmol/L (137-145)
[2023-10-01 06:22] LABS: African American GFR (CKD) 47 (>60 ml/min/1.73 sqM); Anion Gap 11 mmol/L; Blood Urea Nitrogen 37 mg/dL (7-17); Calcium 9.2 mg/dL (8.4-10.2); Carbon Dioxide 29 mmol/L (22-30); Chloride 96 mmol/L (98-107); Glucose 117 mg/dL (74-99); Non-African American GFR(CKD) 40 (>60 ml/min/1.73 sqM); Potassium 4.1 mmol/L (3.5-5.1); Sodium 136 mmol/L (137-145)
[2023-10-01] MEDS: LEVOTHYROXINE 88 MCG TAB PO SCH (06:27)
[2023-10-01] MEDS: ALBUTEROL NEBULIZED 2.5 MG/3 ML INHALATION PRN ×4 (08:15→19:55)
--- NOTE | 2023-10-01 08:52 | XR ---
EXAMINATION TYPE: XR chest 1V portable DATE OF EXAM: 10/01/2023 COMPARISON: 09/30/2023 HISTORY: Shortness of breath TECHNIQUE: Single frontal view of the chest is obtained. FINDINGS: Interval marked improvement in areas of perihilar consolidation. Persistent bilateral cons olidation and small effusion at the lung bases. Interstitium improved. No pneumothorax. Limited inspi ration. Heart size stable. Atherosclerotic change aorta. Arthropathy of the shoulders. IMPRESSION: Improving bilateral areas of consolidation. Correlate for improving CHF.
[2023-10-01] MEDS: FUROSEMIDE 10 MG/ML 4 ML VIAL IV SCH ×3 (08:53→23:45)
[2023-10-01] MEDS: PANTOPRAZOLE 40 MG/10 ML VIAL IVP SCH (08:53)
[2023-10-01] MEDS: guaiFENesin 600 MG TABLET.ER PO SCH ×2 (08:53→20:20)
[2023-10-01] MEDS: APIXABAN 5 MG TAB PO SCH ×2 (08:53→20:20)
[2023-10-01] MEDS: METOPROLOL TARTRATE 50 MG TAB PO SCH ×2 (08:53→20:21)
[2023-10-01] MEDS: POTASSIUM CHLORIDE ER 20 MEQ TAB.ER PO SCH (08:54)
[2023-10-01] MEDS: MAGNESIUM OXIDE 400 MG TAB PO SCH (08:54)
[2023-10-01] MEDS ORDERED: DEXTROSE 5% IN WATER 100 ML with AMIODARONE 150 MG IV ONE (09:29)
[2023-10-01] MEDS ORDERED: AMIODARONE 360 MG in DEXTROSE 5% IN WATER 200 ML IV ONE ×2 (09:29)
--- NOTE | 2023-10-01 10:47 | P.PN ---
Subjective Progress Note Date: 10/01/23 Principal diagnosis: Shortness of breath. Pulmonary consult dated 09/30/2023. 73-year-old female who presented to the emergency department on September 26, complaining of arrhythmias, and palpitations. The patient does have a history of hypertension, atrial fibrillation, hyperlipidemia, pulmonary embolism, and hypothyroidism. The patient apparently was having some lower extremity edema, shortness of breath, and orthopnea. She also had mild exertional dyspnea. The patient denied any chest pain or chest discomfort. She was seen by the ER physician, and admitted with a diagnosis of atrial fibrillation, CHF, and urinary tract infection. Today, a rapid response was called on this patient, and, R ICU charge nurse, who evaluated the patient, and thought the patient should come down to the intensive care unit, for further monitoring and management. She was given some IV Lasix, and placed on BiPAP, with settings of 16/6, and 100%. She was seen in the intensive care unit, room 255. She was sitting up in bed, with mild respiratory distress, on the BiPAP device. White count was 13.7, hemoglobin 14.5, hematocrit 44.4, and a normal platelet count. Sodium 135, potassium 3.9, chlorides 96, CO2 27, anion gap 12, BUN 37, and creatinine 1.26. N-terminal proBNP, on September 29, was 7020. The patient had chest x-rays on the and on the . Today's chest x-ray shows worsening pulmonary edema. Progress note dated 10/01/2023. 73-year-old female seen again in intensive care unit, room 255. The patient was admitted with a diagnosis of acute hypoxemic respiratory failure, secondary to CHF, as well as atrial fibrillation with RVR. The patient is currently on high flow nasal O2, at 13 L. In addition, the patient uses BiPAP intermittently at 16/6, and 60%. For her atrial fibrillation and RVR, the patient's on Cardizem 15 mg an hour. Clinically, she's starting to feel a bit better. White count 9.4, hemoglobin 14, hematocrit 43.1, and platelet count 223,000. Sodium 136, potassium 4.1, chlorides 96, CO2 29, BUN 37, and creatinine 1.30. Calcium is 9.2. Chest x-ray shows improved vascular congestion. Objective - Vital Signs Vital signs: Vital Signs Temp 98.1 F 10/01/23 08:30 Pulse 122 H 10/01/23 10:00 Resp 19 10/01/23 10:00 BP 130/84 10/01/23 10:00 Pulse Ox 96 10/01/23 10:00 FiO2 60 10/01/23 06:00 Intake & Output 09/30/23 10/01/23 10/01/23 18:59 06:59 18:59 Intake Total 220 156.934 699.016 Output Total 1500 465 395 Balance -1280 -308.066 304.016 Intake: Intake, IV Titration 156.934 91.016 Amount Diltiazem 125 mg In 82.375 83.5 Sodium Chloride 0.9% 100 ml @ 5 MG/HR 5 mls/hr IV .Q24H ANNA Rx#:[id number] Norepinephrine 4 mg In 74.559 7.516 Sodium Chloride 0.9% 250 ml @ 0.03 MCG/KG/MIN 15. 373 mls/hr IV .[id number] ANNA Rx#:[id number] Oral 220 608 Output: Urine 1500 465 395 Other: Voiding Method Indwelling Catheter Indwelling Catheter # Bowel Movements 0 - Exam Mild respiratory distress, with mild conversational dyspnea, currently on high flow nasal O2. The patient is oriented 3. HEENT examination is grossly unremarkable. Mucous membranes are moist. No oral lesions. Neck supple. Full range of motion. No adenopathy thyromegaly or neck vein distention. Cardiovascular examination reveals an irregular rhythm and rate. S1-S2 normal. No S3 or S4. No discernible murmur noted. Heart rate 122. Lungs reveal by basilar crackles. Breath sounds are equal bilaterally. No rhonchi. No wheezes. Saturations are 96% on high flow nasal O2. Abdomen soft bowel sounds are heard. No masses or tenderness. Extremities are intact. No cyanosis or clubbing. Mild lower extremity edema. Skin is without rash or lesion. Neurologic examination is brief but nonfocal. - Labs CBC & Chem 7: 10/01/23 05:28 10/01/23 05:28 Labs: Abnormal Lab Results - Last 24 Hours (Table) 09/30/23 09/30/23 10/01/23 Range/Units 12:59 13:33 05:28 Sodium 136 L (137-145) mmol/L Chloride 96 L (98-107) mmol/L BUN 38 H (7-17) mg/dL Creatinine 1.29 H (0.52-1.04) mg/dL Glucose 118 H (74-99) mg/dL POC Glucose (mg/dL) 185 H 206 H (70-110) mg/dL 10/01/23 Range/Units 05:28 Sodium 136 L (137-145) mmol/L Chloride 96 L (98-107) mmol/L BUN 37 H (7-17) mg/dL Creatinine 1.30 H (0.52-1.04) mg/dL Glucose 117 H (74-99) mg/dL POC Glucose (mg/dL) (70-110) mg/dL Assessment and Plan Assessment: Acute hypoxemic respiratory failure, secondary to worsening congestive heart failure. History of chronic atrial fibrillation, with rapid ventricular response. History of hypertension. History of hyperlipidemia. History of pulmonary embolism. History of hypothyroidism. History of osteoarthritis. Plan: Plan dated 09/30/2023. The patient is seen today in the intensive care unit, room 255. She is on BiPAP currently, and I've asked the nurses, to inform respiratory therapy, to wean the patient's FiO2 down, as she improves. The patient has received additional Lasix, 40 mg earlier, and another 40 mg IV push now. The patient was placed on 40 mg of Lasix, IV push every 8 hours. We will continue to follow and make recommendations along the way. Labs, x-rays, and medications are reviewed. Prognosis is guarded. Plan dated 10/01/2023. Patient is seen in the intensive care unit, room 255. Currently, she is on high flow nasal O2 at 13 L. In addition, she is on BiPAP, intermittently at 16/6, and 60%. Because of her atrial fibrillation and RVR, she is currently on Cardizem 50 mg an hour. On auscultation, she has bibasilar crackles, and, she is in atrial fibrillation. She has lower extremity edema as well. Labs, x- rays, medications are reviewed. We will continue to follow and make recommendations along the way. Her prognosis is certainly guarded. Time with Patient: Greater than 30
--- NOTE | 2023-10-01 11:35 | P.PN ---
Subjective Progress Note Date: 10/01/23 H&P Date: 09/27/23 Chief Complaint: Palpitations, dyspnea This is a 73-year-old female with past medical history significant for atrial fibrillation, PE, status post EKOS 02/2022, hypertension, hypothyroidism admitted with atrial fibrillation with RVR and multiple other medical issues.Evaluated and treated by cardiology. Presented to the hospital with complaints of heart palpitations, hypertension , shortness of breath 1 week.Positive orthopnea , reports sleeping sitting up in a recliner as well as living downstairs in her home to avoid climbing stairs. Cardizem drip initiated, rate improving. Cardiology consult in place. Troponins negative 3 , proBNP pending .EKG rate atrial fibrillation with RVR heart rate 132 . Echo reported normal LV f unction, mild pulmonary hypertension, moderate mitral and moderate tricuspid regurgitation .Chest x-ray no acute pulmonary process. UA reports positive nitrates, many bacteria, small leukocytes, urine culture pending. 09/30/2023 recently placed on 2 L nasal cannula, then increased to 4 L, [facility] O2 sats in the low 90s .complains of mild increased shortness of breath, which she reports started actually during the night. She has been on Lasix IV push every 12 hours, 24-hour I&O reflecting a negative fluid balance. Renal function mildly worsened, BUN 37, creatinine 1.26. Sodium 125 .Maintained on Rocephin for acute UTI. Afebrile, WBC 13.7. Blood sugars controlled. 10/01/23 yesterday developed worsening pulmonary edema, transfer to ICU. Chest x-ray at that time reported worsening of large perihilar consolidation noted greater on the right, pulmonary edema versus diffuse pneumonia. Received additional Lasix IV push, frequency increased yesterday diuresed well with 24-hour I&O reflecting a negative fluid balance. Maintained on BiPAP throughout the night, placed on 13 L nasal cannula to facilitate patient's diet intake this morning. Chest x-ray repeated this morning reporting improving bilateral areas of consolidation. Telemetry sinus rhythm, continues on Cardizem drip, tachycardic with heart rates in the 130s to 140s. Denies chest pain, palpitations. Afebrile, normal WBC. BUN 37, creatinine 1.30. Blood sugars controlled. Objective - Vital Signs Vital signs: Vital Signs Temp 98.1 F 10/01/23 08:30 Pulse 122 H 10/01/23 10:00 Resp 19 10/01/23 10:00 BP 130/84 10/01/23 10:00 Pulse Ox 96 10/01/23 10:00 FiO2 60 10/01/23 06:00 Intake & Output 09/30/23 10/01/23 10/01/23 18:59 06:59 18:59 Intake Total 220 156.934 699.016 Output Total 1500 465 395 Balance -1280 -308.066 304.016 Intake: Intake, IV Titration 156.934 91.016 Amount Diltiazem 125 mg In 82.375 83.5 Sodium Chloride 0.9% 100 ml @ 5 MG/HR 5 mls/hr IV .Q24H ANNA Rx#:[id number] Norepinephrine 4 mg In 74.559 7.516 Sodium Chloride 0.9% 250 ml @ 0.03 MCG/KG/MIN 15. 373 mls/hr IV .[id number] ANNA Rx#:[id number] Oral 220 608 Output: Urine 1500 465 395 Other: Voiding Method Indwelling Catheter Indwelling Catheter # Bowel Movements 0 - Exam PHYSICAL EXAM: VITAL SIGNS: [As above] GENERAL: Alert and oriented 3,Sitting up in bed, wearing high flow nasal cannula HEENT: Normocephalic, Conjunctivae normal. eyes normal, MMM. NECK: Supple, No JVD. CARDIOVASCULAR: S1, S2 regular. No murmur. RESPIRATION: Unlabored, equal air entry, bibasilar crackles ABDOMEN: Soft, nontender. Positive bowel sounds. LEGS: Decreasing bilateral lower extremity edema. NERVOUS SYSTEM: Cranial N 2-12 grossly normal.No focal deficits. Strength and sensation grossly intact. Skin: Warm and dry, no rash - Labs CBC & Chem 7: 10/01/23 05:28 10/01/23 05:28 Labs: Abnormal Lab Results - Last 24 Hours (Table) 09/30/23 09/30/23 10/01/23 Range/Units 12:59 13:33 05:28 Sodium 136 L (137-145) mmol/L Chloride 96 L (98-107) mmol/L BUN 38 H (7-17) mg/dL Creatinine 1.29 H (0.52-1.04) mg/dL Glucose 118 H (74-99) mg/dL POC Glucose (mg/dL) 185 H 206 H (70-110) mg/dL 10/01/23 Range/Units 05:28 Sodium 136 L (137-145) mmol/L Chloride 96 L (98-107) mmol/L BUN 37 H (7-17) mg/dL Creatinine 1.30 H (0.52-1.04) mg/dL Glucose 117 H (74-99) mg/dL POC Glucose (mg/dL) (70-110) mg/dL Assessment and Plan Assessment: Paroxysmal Atrial fibrillation with rapid ventricular rate, converted to sinus rhythm ,anticoagulated with Eliquis Acute on chronic CHF exacerbation, diastolic dysfunction, ef 55-60% Acute hypoxic respiratory failure secondary to the above Acute UTI, culture reporting E. coli Acute renal failure Pulmonary embolism bilaterally status post EKOS, 03/14/2022 Pulmonary hypertension Moderate mitral and tricuspid regurgitation Hypothyroidism Hypertension Hyperlipidemia Osteoarthritis with history right knee placement in July 2022. Morbid obesity, BMI 46 Plan: Continue on current medication regime ,monitoring and symptomatic treatment. ICU management as per loss prevention leader. Diuretics with close monitoring of renal function, electrolytes. Antiarrhythmics as per cardiology. Completed antibiotic treatment of UTI, we'll DC ceftriaxone. The impression and plan of care has been dictated as directed. : I performed a history and examination of this patient, discussed the same with the dictator. I agree with the dictator's note ,documented as a scribe. Any additional findings or plans will be noted.
--- NOTE | 2023-10-01 11:46 | PN ---
PROGRESS NOTE SUBJECTIVE: Mariel is a 73-year-old lady, who was transferred to ICU because of atrial fibrillation with rapid ventricular rate. We tried her on multiple medications through the night without much response. This morning, she remains in atrial fibrillation with poorly controlled ventricular rate and I am going to start her on IV amiodarone. MEDICATIONS: The patient is currently on, 1. Lasix 40 q.8 hours. 2. IV Cardizem. 3. Lopressor 50 b.i.d. 4. Eliquis. 5. I am just starting her on amiodarone. OBJECTIVE: GENERAL: Comfortable at rest. VITAL SIGNS: Heart rate is elevated. Blood pressure is normal. CHEST: Reveals good air entry bilaterally. HEART: Reveals first and second heart sounds, irregular rhythm. ABDOMEN: Soft. EXTREMITIES: Did not reveal any edema. Peripheral pulses are felt. DIAGNOSTIC STUDIES: The patient had an echo on this admission that revealed normal LV systolic function. ASSESSMENT: 1. Atrial fibrillation with rapid ventricular rate. 2. Acute on chronic diastolic heart failure. PLAN: I will cut back on the dose of Cardizem. Start her on amiodarone. Continue the Eliquis and decide on further course of action based on how she responds to therapies. MMODL / IJN: [id number] /
[2023-10-01] MEDS: AMIODARONE 450 MG in DEXTROSE 5% IN WATER 250 ML IV SCH ×2 (15:00)
[2023-10-01] MEDS: ATORVASTATIN 80 MG TAB PO SCH (20:20)
[2023-10-02] MEDS: NOREPINEPHRINE 4 MG in SODIUM CHLORIDE 0.9% 250 ML IV SCH (03:13)
[2023-10-02] MEDS: DILTIAZEM 125 MG in SODIUM CHLORIDE 0.9% 100 ML IV SCH ×2 (03:29→16:18)
[2023-10-02 05:20] LABS: Basophils % (A) 0 %; Eosinophils # (A) 0.2 k/uL (0-0.7); Eosinophils % (A) 2 %; HCT 39.4 % (34.0-46.0); HGB 12.8 gm/dL (11.4-16.0); Hypochromasia Slight; Lymphocytes # (A) 1.1 k/uL (1.0-4.8); Lymphocytes % (A) 13 %; MCH 32.4 pg (25.0-35.0); MCHC 32.4 g/dL (31.0-37.0); MCV 99.8 fL (80.0-100.0); Macrocytosis Slight; Mean Platelet Volume 8.9; Monocytes # (A) 0.7 k/uL (0-1.0); Monocytes % (A) 8 %; Neutrophils # (A) 6.8 k/uL (1.3-7.7); Neutrophils % (A) 76 %; Platelet Count 178 k/uL (150-450); RBC 3.94 m/uL (3.80-5.40); RDW 14.1 % (11.5-15.5)
[2023-10-02 05:36] LABS: African American GFR (CKD) 56 (>60 ml/min/1.73 sqM); Anion Gap 6 mmol/L; Blood Urea Nitrogen 41 mg/dL (7-17); Calcium 8.8 mg/dL (8.4-10.2); Carbon Dioxide 34 mmol/L (22-30); Chloride 96 mmol/L (98-107); Glucose 112 mg/dL (74-99); Non-African American GFR(CKD) 48 (>60 ml/min/1.73 sqM); Sodium 136 mmol/L (137-145)
[2023-10-02 06:03] LABS: Potassium 4.3 mmol/L (3.5-5.1)
[2023-10-02] MEDS: AMIODARONE 450 MG in DEXTROSE 5% IN WATER 250 ML IV SCH ×2 (06:59)
[2023-10-02] MEDS: LEVOTHYROXINE 88 MCG TAB PO SCH (06:59)
--- NOTE | 2023-10-02 08:15 | XR ---
EXAMINATION TYPE: XR chest 1V portable DATE OF EXAM: 10/02/2023 COMPARISON: 10/01/2023 HISTORY: Shortness of breath TECHNIQUE: Single frontal view of the chest is obtained. FINDINGS: Interval marked improvement in areas of perihilar consolidation. Persistent bilateral cons olidation and small effusion at the lung bases. Interstitium improved. No pneumothorax. Limited inspi ration. Heart size stable. Atherosclerotic change aorta. Arthropathy of the shoulders. IMPRESSION: Bilateral infiltrates stable.
[2023-10-02] MEDS: MAGNESIUM OXIDE 400 MG TAB PO SCH (08:41)
[2023-10-02] MEDS: PANTOPRAZOLE 40 MG/10 ML VIAL IVP SCH (08:41)
[2023-10-02] MEDS: POTASSIUM CHLORIDE ER 20 MEQ TAB.ER PO SCH (08:42)
[2023-10-02] MEDS: guaiFENesin 600 MG TABLET.ER PO SCH ×2 (08:42→20:58)
[2023-10-02] MEDS: APIXABAN 5 MG TAB PO SCH ×2 (08:42→20:58)
[2023-10-02] MEDS: FUROSEMIDE 10 MG/ML 4 ML VIAL IV SCH ×2 (08:43→20:58)
[2023-10-02] MEDS: METOPROLOL TARTRATE 50 MG TAB PO SCH ×2 (08:43→20:58)
[2023-10-02] MEDS: AMIODARONE 200 MG TAB PO SCH ×2 (10:15→20:58)
--- NOTE | 2023-10-02 10:44 | P.PN ---
Subjective Progress Note Date: 10/02/23 Principal diagnosis: Shortness of breath. Pulmonary consult dated 09/30/2023. 73-year-old female who presented to the emergency department on September 26, complaining of arrhythmias, and palpitations. The patient does have a history of hypertension, atrial fibrillation, hyperlipidemia, pulmonary embolism, and hypothyroidism. The patient apparently was having some lower extremity edema, shortness of breath, and orthopnea. She also had mild exertional dyspnea. The patient denied any chest pain or chest discomfort. She was seen by the ER physician, and admitted with a diagnosis of atrial fibrillation, CHF, and urinary tract infection. Today, a rapid response was called on this patient, and, R ICU charge nurse, who evaluated the patient, and thought the patient should come down to the intensive care unit, for further monitoring and management. She was given some IV Lasix, and placed on BiPAP, with settings of 16/6, and 100%. She was seen in the intensive care unit, room 255. She was sitting up in bed, with mild respiratory distress, on the BiPAP device. White count was 13.7, hemoglobin 14.5, hematocrit 44.4, and a normal platelet count. Sodium 135, potassium 3.9, chlorides 96, CO2 27, anion gap 12, BUN 37, and creatinine 1.26. N-terminal proBNP, on September 29, was 7020. The patient had chest x-rays on the and on the . Today's chest x-ray shows worsening pulmonary edema. Progress note dated 10/01/2023. 73-year-old female seen again in intensive care unit, room 255. The patient was admitted with a diagnosis of acute hypoxemic respiratory failure, secondary to CHF, as well as atrial fibrillation with RVR. The patient is currently on high flow nasal O2, at 13 L. In addition, the patient uses BiPAP intermittently at 16/6, and 60%. For her atrial fibrillation and RVR, the patient's on Cardizem 15 mg an hour. Clinically, she's starting to feel a bit better. White count 9.4, hemoglobin 14, hematocrit 43.1, and platelet count 223,000. Sodium 136, potassium 4.1, chlorides 96, CO2 29, BUN 37, and creatinine 1.30. Calcium is 9.2. Chest x-ray shows improved vascular congestion. Progress note dated 10/02/2023. 73-year-old female seen in the intensive care unit, room 255. She was admitted initially with a diagnosis of acute hypoxemic respiratory failure secondary to CHF, as well as atrial fibrillation with rapid ventricular response. The patient is currently on room air, with saturations of 91%. Unfortunately, she continues on Cardizem at 10 mg an hour, and amiodarone at 0.5 mg/m. White count 9, hemoglobin 12.8, hematocrit 39.4, within normal platelet count. Sodium 136, potassium 4.3, chloride 96, CO2 34, BUN 41, creatinine 1.12. Glucose is 112. Urine culture is showing evidence of Escherichia coli. Chest x-ray shows improvement in the patient's pulmonary vascular status. Objective - Vital Signs Vital signs: Vital Signs Temp 98.1 F 10/02/23 08:30 Pulse 113 H 10/02/23 10:00 Resp 20 10/02/23 10:00 BP 91/63 10/02/23 10:00 Pulse Ox 96 10/02/23 10:00 FiO2 45 10/01/23 23:54 Intake & Output 10/01/23 10/02/23 10/02/23 18:59 06:59 18:59 Intake Total 1466.516 915 120 Output Total 930 1130 445 Balance 536.516 -215 -325 Weight 138.9 kg 138.9 kg Intake: Intake, IV Titration 132.516 375 Amount Amiodarone 450 mg In 250 Dextrose 5% in Water 250 ml @ 0.5 MG/MIN 16.667 mls/hr IV .Q15H ANNA Rx#: [id number] Diltiazem 125 mg In 125.0 125 Sodium Chloride 0.9% 100 ml @ 5 MG/HR 5 mls/hr IV .Q24H ANNA Rx#:[id number] Norepinephrine 4 mg In 7.516 Sodium Chloride 0.9% 250 ml @ 0.03 MCG/KG/MIN 15. 373 mls/hr IV .[id number] ANNA Rx#:[id number] Oral 1334 540 120 Output: Urine 930 1130 445 Other: Voiding Method Indwelling Catheter Indwelling Catheter Indwelling Catheter - Exam Mild respiratory distress, with mild conversational dyspnea, currently on room air. The patient is oriented 3. HEENT examination is grossly unremarkable. Mucous membranes are moist. No oral lesions. Neck supple. Full range of motion. No adenopathy thyromegaly or neck vein distention. Cardiovascular examination reveals an irregular rhythm and rate. S1-S2 normal. No S3 or S4. No discernible murmur noted. Heart rate 113. Lungs reveal by basilar crackles. Breath sounds are equal bilaterally. No rhonchi. No wheezes. Saturations are 91% on room air. Abdomen soft bowel sounds are heard. No masses or tenderness. Extremities are intact. No cyanosis or clubbing. Mild lower extremity edema. Skin is without rash or lesion. Neurologic examination is brief but nonfocal. - Labs CBC & Chem 7: 10/02/23 04:20 10/02/23 04:20 Labs: Abnormal Lab Results - Last 24 Hours (Table) 10/02/23 Range/Units 04:20 Sodium 136 L (137-145) mmol/L Chloride 96 L (98-107) mmol/L Carbon Dioxide 34 H (22-30) mmol/L BUN 41 H (7-17) mg/dL Creatinine 1.12 H (0.52-1.04) mg/dL Glucose 112 H (74-99) mg/dL Assessment and Plan Assessment: Acute hypoxemic respiratory failure, secondary to worsening congestive heart failure. History of chronic atrial fibrillation, with rapid ventricular response. History of hypertension. History of hyperlipidemia. History of pulmonary embolism. History of hypothyroidism. History of osteoarthritis. Plan: Plan dated 09/30/2023. The patient is seen today in the intensive care unit, room 255. She is on BiPAP currently, and I've asked the nurses, to inform respiratory therapy, to wean the patient's FiO2 down, as she improves. The patient has received additional Lasix, 40 mg earlier, and another 40 mg IV push now. The patient was placed on 40 mg of Lasix, IV push every 8 hours. We will continue to follow and make recommendations along the way. Labs, x-rays, and medications are reviewed. Prognosis is guarded. Plan dated 10/01/2023. Patient is seen in the intensive care unit, room 255. Currently, she is on high flow nasal O2 at 13 L. In addition, she is on BiPAP, intermittently at 16/6, an d 60%. Because of her atrial fibrillation and RVR, she is currently on Cardizem 50 mg an hour. On auscultation, she has bibasilar crackles, and, she is in atrial fibrillation. She has lower extremity edema as well. Labs, x-rays, medications are reviewed. We will continue to follow and make recommendations along the way. Her prognosis is certainly guarded. Plan dated 10/02/2023. The patient is seen in room 255. Currently, she is on room air, and saturations are 91%. Her nurse will probably place her back on oxygen at 2 L. The patient still having atrial fibrillation with rapid ventricular response, and for that reason, she is on Cardizem at 10 mg an hour, and amiodarone at 0.5 mg/m. Her examination still reveals evidence of bibasilar crackles, and lower extremity edema. Labs, x-rays, and medications are reviewed. The patient's overall prognosis remains guarded. She obviously cannot be the ICU at this time. Time with Patient: Greater than 30
--- NOTE | 2023-10-02 11:49 | PN ---
PROGRESS NOTE HISTORY OF PRESENT ILLNESS: Mariel is a 73-year-old lady, who is admitted to ICU with congestive heart failure and atrial fibrillation with rapid ventricular rate, still remains in atrial fibrillation, heart rate is better controlled on intravenous Cardizem and amiodarone, which I am going to switch to p.o. She is also on Lopressor 50 b.i.d., and once the blood pressure improves, I will increase the dose of Lopressor to 75 b.i.d. PHYSICAL EXAMINATION: GENERAL: The patient remains in atrial fibrillation with controlled ventricular rate. CHEST: Reveals diminished air entry at the bases. HEART: Reveals first and second heart sounds, irregular rhythm, no murmur. ABDOMEN: Soft. EXTREMITIES: Examination of the extremities did not reveal any edema. Peripheral pulses are felt. LABORATORY DATA: Labs show that the hemoglobin is 12.8, platelet count is 178. Potassium is 4.3, creatinine is 1.1. ASSESSMENT: 1. Congestive heart failure. 2. Atrial fibrillation with poorly controlled ventricular rate. PLAN: I will continue the Eliquis, switch the Cordarone to p.o. Continue the Cardizem. Continue Lopressor. Stable to be transferred out of ICU. MMODL / IJN: [id number] /
[2023-10-02] MEDS: ONDANSETRON 4 MG/2 ML VIAL IVP PRN (13:33)
--- NOTE | 2023-10-02 15:18 | P.PN ---
Subjective Progress Note Date: 10/02/23 This is a pleasant 73 year old female who comes in and is being treated for A. fib RVR as well as acute heart failure. Patient has been taken off IV amiodarone drip today and started on oral amiodarone, IV Lasix has been decreased every 12 hours, remains on IV Cardizem. Echocardiogram shows normal LV function with moderate MR and [id number] TR and mild pulmonary hypertension. Indwelling catheter is in place she is diuresing well. Today she's been downgraded from the intensive care unit and pending bed placement on the stepdown unit. Most recent chest x-ray today shows bilateral infiltrates which are stable. Sodium 136, BUN 41, creatinine 1.12. Review of Systems Constitutional: Denied any fatigue denied any fever. Cardio vascular: denied any chest pain, palpitations Gastrointestinal: denied any nausea, vomiting, diarrhea Pulmonary: Denied any shortness of breath cough Neurologic denied any new focal deficits All inpatient medications were reviewed and appropriate changes in these medications as dictated in the interval history and assessment and plan. PHYSICAL EXAMINATION: GENERAL: The patient is alert and oriented x3, not in any acute distress. Well developed, well nourished. on nasal cannula. HEENT: Pupils are round and equally reacting to light. EOMI. No scleral icterus. No conjunctival pallor. Normocephalic, atraumatic. No pharyngeal erythema. No thyromegaly. CARDIOVASCULAR: S1 and S2 present. No murmurs, rubs, or gallops. PULMONARY: Chest is clear to auscultation, no wheezing or crackles. ABDOMEN: Soft, nontender, nondistended, normoactive bowel sounds. No palpable organomegaly. MUSCULOSKELETAL: No joint swelling or deformity. EXTREMITIES: No cyanosis, clubbing, or pedal edema. Bilateral LE +2 nonpitting edema. NEUROLOGICAL: Gross neurological examination did not reveal any focal deficits. Generalized weakness. SKIN: No rashes. Assessment Paroxysmal Atrial fibrillation with rapid ventricular rate Acute on chronic CHF exacerbation, diastolic dysfunction, ef 55-60% Acute hypoxic respiratory failure secondary to the above Acute UTI, culture reporting E. coli Acute renal failure Pulmonary embolism bilaterally status post EKOS, 03/14/2022 Pulmonary hypertension Moderate mitral and tricuspid regurgitation Hypothyroidism Hypertension Hyperlipidemia Osteoarthritis with history right knee placement in July 2022. Morbid obesity, BMI 46 GI prophylaxis DVT prophylaxis anticoagulated with eliquis Full Code Plan Patient has been downgraded from ICU Remains on IV lasix with strict intake and output monitoring Transitioned to oral amiodarone, remains on IV cardizem PT/OT consulted AM labs The impression and plan of care has been dictated by Preetih Gamez, Nurse Practitioner as directed. Dr. Bruce MD I have performed a history and physical examination and medical decision making of this patient, discussed the same with the dictator, and agree with the dictators assessment and plan as written, documented as a scribe. Based on total visit time, I have performed more than 50% of this visit. Objective - Vital Signs Vital signs: Vital Signs Temp 37.3 F L 10/02/23 12:00 Pulse 105 H 10/02/23 15:00 Resp 17 10/02/23 15:00 BP 93/72 10/02/23 15:00 Pulse Ox 94 L 10/02/23 15:00 FiO2 45 10/01/23 23:54 Intake & Output 10/01/23 10/02/23 10/02/23 18:59 06:59 18:59 Intake Total 1466.516 915 120 Output Total 930 1130 445 Balance 536.516 -215 -325 Weight 138.9 kg 138.9 kg Intake: Intake, IV Titration 132.516 375 Amount Amiodarone 450 mg In 250 Dextrose 5% in Water 250 ml @ 0.5 MG/MIN 16.667 mls/hr IV .Q15H ANNA Rx#: [id number] Diltiazem 125 mg In 125.0 125 Sodium Chloride 0.9% 100 ml @ 5 MG/HR 5 mls/hr IV .Q24H ANNA Rx#:[id number] Norepinephrine 4 mg In 7.516 Sodium Chloride 0.9% 250 ml @ 0.03 MCG/KG/MIN 15. 373 mls/hr IV .[id number] ANNA Rx#:[id number] Oral 1334 540 120 Output: Urine 930 1130 445 Other: Voiding Method Indwelling Catheter Indwelling Catheter Indwelling Catheter - Labs CBC & Chem 7: 10/02/23 04:20 10/02/23 04:20 Labs: Abnormal Lab Results - Last 24 Hours (Table) 10/02/23 Range/Units 04:20 Sodium 136 L (137-145) mmol/L Chloride 96 L (98-107) mmol/L Carbon Dioxide 34 H (22-30) mmol/L BUN 41 H (7-17) mg/dL Creatinine 1.12 H (0.52-1.04) mg/dL Glucose 112 H (74-99) mg/dL Assessment and Plan Time with Patient: Less than 30
[2023-10-02] MEDS: ATORVASTATIN 80 MG TAB PO SCH (20:58)
[2023-10-03] MEDS: DILTIAZEM 125 MG in SODIUM CHLORIDE 0.9% 100 ML IV SCH ×2 (06:09→17:07)
[2023-10-03 06:23] LABS: Basophils % (A) 0 %; Eosinophils # (A) 0.2 k/uL (0-0.7); Eosinophils % (A) 2 %; HCT 39.2 % (34.0-46.0); HGB 12.9 gm/dL (11.4-16.0); Lymphocytes # (A) 1.1 k/uL (1.0-4.8); Lymphocytes % (A) 12 %; MCHC 32.8 g/dL (31.0-37.0); MCV 100.4 fL (80.0-100.0); Macrocytosis Slight; Monocytes # (A) 0.6 k/uL (0-1.0); Monocytes % (A) 7 %; Neutrophils # (A) 7.2 k/uL (1.3-7.7); Neutrophils % (A) 77 %; Platelet Count 187 k/uL (150-450); WBC 9.4 k/uL (3.8-10.6)
[2023-10-03] MEDS: LEVOTHYROXINE 88 MCG TAB PO SCH (07:08)
[2023-10-03] MEDS: ALBUTEROL NEBULIZED 2.5 MG/3 ML INHALATION PRN (07:34)
--- NOTE | 2023-10-03 07:47 | XR ---
EXAMINATION TYPE: XR chest 1V portable DATE OF EXAM: 10/03/2023 COMPARISON: 10/02/2023 INDICATION: CHF exacerbation TECHNIQUE: Single frontal view of the chest is obtained. FINDINGS: The heart size is prominent. The pulmonary vasculature is normal. Bibasilar infiltrates are present. IMPRESSION: 1. Bibasilar infiltrates. Correlate for atelectasis or pneumonia. Atypical pulmonary edema could be c onsidered. 2. Mild cardiomegaly
[2023-10-03] MEDS: PANTOPRAZOLE 40 MG/10 ML VIAL IVP SCH (08:29)
[2023-10-03] MEDS: MAGNESIUM OXIDE 400 MG TAB PO SCH (08:29)
[2023-10-03] MEDS: APIXABAN 5 MG TAB PO SCH ×2 (08:29→21:58)
[2023-10-03] MEDS: AMIODARONE 200 MG TAB PO SCH ×2 (08:29→21:58)
[2023-10-03] MEDS: POTASSIUM CHLORIDE ER 20 MEQ TAB.ER PO SCH (08:29)
[2023-10-03] MEDS: FUROSEMIDE 10 MG/ML 4 ML VIAL IV SCH ×2 (08:29→21:57)
[2023-10-03] MEDS: guaiFENesin 600 MG TABLET.ER PO SCH ×2 (08:29→21:57)
[2023-10-03] MEDS: METOPROLOL TARTRATE 50 MG TAB PO SCH ×3 (08:29→21:58)
[2023-10-03 08:51] LABS: African American GFR (CKD) 60 (>60 ml/min/1.73 sqM); Anion Gap 7 mmol/L; Blood Urea Nitrogen 36 mg/dL (7-17); Carbon Dioxide 32 mmol/L (22-30); Chloride 97 mmol/L (98-107); Glucose 116 mg/dL (74-99); Non-African American GFR(CKD) 52 (>60 ml/min/1.73 sqM); Potassium 4.1 mmol/L (3.5-5.1); Sodium 136 mmol/L (137-145)
--- NOTE | 2023-10-03 10:43 | PN ---
PROGRESS NOTE HISTORY OF PRESENT ILLNESS: Mariel is a 73-year-old lady, who was admitted to ICU with atrial fibrillation with poorly controlled ventricular rate, hypotension, and congestive heart failure. She is feeling better. A chest x-ray, this morning, reveals some atelectasis and infiltrates without any evidence of pulmonary congestion. The patient remains marginally hypotensive. Heart rate is still elevated, but better controlled. She is requiring 2 L of nasal O2. MEDICATIONS: The patient is currently on: 1. Amiodarone 400 b.i.d. 2. Eliquis 5 b.i.d. 3. Lipitor 80 daily. 4. Intravenous Cardizem along with Lopressor 50 b.i.d. PHYSICAL EXAMINATION: VITAL SIGNS: Rate is around 110 beats per minute, blood pressure is 104/66, respiratory rate is 18. CHEST: Reveals diminished air entry at the bases. I do not hear any crackles or rhonchi. HEART: Reveals first and second heart sounds, irregular rhythm, and a systolic murmur at the left lower sternal border. ABDOMEN: Soft. EXTREMITIES: Exam of the extremities reveals bilateral pitting edema. LABORATORY DATA: Labs show a hemoglobin of 12.9, platelet count is 187. Potassium is 4.1 creatinine is 1. ASSESSMENT: 1. Atrial fibrillation with poorly controlled ventricular rate. 2. Congestive heart failure. PLAN: I will increase the dose of metoprolol, and if the heart rate is below 100, stop the Cardizem, and switch her to p.o. Cardizem, and continue the Eliquis. MMODL / IJN: [id number] /
--- NOTE | 2023-10-03 10:59 | P.PN ---
Subjective Progress Note Date: 10/03/23 Principal diagnosis: Shortness of breath. Pulmonary consult dated 09/30/2023. 73-year-old female who presented to the emergency department on September 26, complaining of arrhythmias, and palpitations. The patient does have a history of hypertension, atrial fibrillation, hyperlipidemia, pulmonary embolism, and hypothyroidism. The patient apparently was having some lower extremity edema, shortness of breath, and orthopnea. She also had mild exertional dyspnea. The patient denied any chest pain or chest discomfort. She was seen by the ER physician, and admitted with a diagnosis of atrial fibrillation, CHF, and urinary tract infection. Today, a rapid response was called on this patient, and, R ICU charge nurse, who evaluated the patient, and thought the patient should come down to the intensive care unit, for further monitoring and management. She was given some IV Lasix, and placed on BiPAP, with settings of 16/6, and 100%. She was seen in the intensive care unit, room 255. She was sitting up in bed, with mild respiratory distress, on the BiPAP device. White count was 13.7, hemoglobin 14.5, hematocrit 44.4, and a normal platelet count. Sodium 135, potassium 3.9, chlorides 96, CO2 27, anion gap 12, BUN 37, and creatinine 1.26. N-terminal proBNP, on September 29, was 7020. The patient had chest x-rays on the and on the . Today's chest x-ray shows worsening pulmonary edema. Progress note dated 10/01/2023. 73-year-old female seen again in intensive care unit, room 255. The patient was admitted with a diagnosis of acute hypoxemic respiratory failure, secondary to CHF, as well as atrial fibrillation with RVR. The patient is currently on high flow nasal O2, at 13 L. In addition, the patient uses BiPAP intermittently at 16/6, and 60%. For her atrial fibrillation and RVR, the patient's on Cardizem 15 mg an hour. Clinically, she's starting to feel a bit better. White count 9.4, hemoglobin 14, hematocrit 43.1, and platelet count 223,000. Sodium 136, potassium 4.1, chlorides 96, CO2 29, BUN 37, and creatinine 1.30. Calcium is 9.2. Chest x-ray shows improved vascular congestion. Progress note dated 10/02/2023. 73-year-old female seen in the intensive care unit, room 255. She was admitted initially with a diagnosis of acute hypoxemic respiratory failure secondary to CHF, as well as atrial fibrillation with rapid ventricular response. The patient is currently on room air, with saturations of 91%. Unfortunately, she continues on Cardizem at 10 mg an hour, and amiodarone at 0.5 mg/m. White count 9, hemoglobin 12.8, hematocrit 39.4, within normal platelet count. Sodium 136, potassium 4.3, chloride 96, CO2 34, BUN 41, creatinine 1.12. Glucose is 112. Urine culture is showing evidence of Escherichia coli. Chest x-ray shows improvement in the patient's pulmonary vascular status. Progress note dated 10/03/2023. 73-year-old female seen today in room 255, intensive care unit. She was admitted with a diagnosis of acute hypoxemic respiratory failure, secondary to CHF, as well as atrial fibrillation, with rapid ventricular response. Currently, the patient is on 2 L of oxygen. She's on a Cardizem drip at 10 mg an hour. She's not receiving any IV fluids additionally. The patient that she is BiPAP, intermittently, with settings of 16/6, and 45%. She use BiPAP last night for about an hour and a half. She needs to be using it more frequently. White count 9.4, hemoglobin 12.9, hematocrit 39.2, and platelet count 187,000. Sodium 136, potassium 4.1, chlorides 97, CO2 32, BUN 36, creatinine 1.06. Gluc ose 116. Calcium is 9. Chest x-ray shows improved pulmonary vascular status. Objective - Vital Signs Vital signs: Vital Signs Temp 98 F 10/03/23 08:00 Pulse 130 H 10/03/23 08:00 Resp 22 10/03/23 08:00 BP 90/58 10/03/23 08:00 Pulse Ox 96 10/03/23 08:00 FiO2 45 10/01/23 23:54 Intake & Output 10/02/23 10/03/23 10/03/23 18:59 06:59 18:59 Intake Total 395 125 100 Output Total 945 1500 600 Balance -550 -1375 -500 Weight 138.9 kg 136 kg Intake: Intake, IV Titration 125 125 Amount Diltiazem 125 mg In 125 125 Sodium Chloride 0.9% 100 ml @ 5 MG/HR 5 mls/hr IV .Q24H [facility] Rx#:[id number] Oral 270 100 Output: Urine 945 1500 600 Other: Voiding Method Indwelling Catheter Indwelling Catheter Indwelling Catheter - Exam Mild respiratory distress, with mild conversational dyspnea, currently on 2 L nasal cannula. The patient is oriented 3. HEENT examination is grossly unremarkable. Mucous membranes are moist. No oral lesions. Neck supple. Full range of motion. No adenopathy thyromegaly or neck vein distention. Cardiovascular examination reveals an irregular rhythm and rate. S1-S2 normal. No S3 or S4. No discernible murmur noted. Heart rate 130. Lungs reveal by basilar crackles. Breath sounds are equal bilaterally. No rhonchi. No wheezes. 2 L saturation is 96%. Abdomen soft bowel sounds are heard. No masses or tenderness. Extremities are intact. No cyanosis or clubbing. Mild lower extremity edema. Skin is without rash or lesion. Neurologic examination is brief but nonfocal. - Labs CBC & Chem 7: 10/03/23 05:54 10/03/23 05:54 Labs: Abnormal Lab Results - Last 24 Hours (Table) 10/03/23 10/03/23 Range/Units 05:54 05:54 MCV 100.4 H (80.0-100.0) fL Sodium 136 L (137-145) mmol/L Chloride 97 L (98-107) mmol/L Carbon Dioxide 32 H (22-30) mmol/L BUN 36 H (7-17) mg/dL Creatinine 1.06 H (0.52-1.04) mg/dL Glucose 116 H (74-99) mg/dL Assessment and Plan Assessment: Acute hypoxemic respiratory failure, secondary to worsening congestive heart failure. History of chronic atrial fibrillation, with rapid ventricular response. History of hypertension. History of hyperlipidemia. History of pulmonary embolism. History of hypothyroidism. History of osteoarthritis. Plan: Plan dated 09/30/2023. The patient is seen today in the intensive care unit, room 255. She is on BiPAP currently, and I've asked the nurses, to inform respiratory therapy, to wean the patient's FiO2 down, as she improves. The patient has received additional Lasi x, 40 mg earlier, and another 40 mg IV push now. The patient was placed on 40 mg of Lasix, IV push every 8 hours. We will continue to follow and make recommendations along the way. Labs, x-rays, and medications are reviewed. Prognosis is guarded. Plan dated 10/01/2023. Patient is seen in the intensive care unit, room 255. Currently, she is on high flow nasal O2 at 13 L. In addition, she is on BiPAP, intermittently at 16/6, and 60%. Because of her atrial fibrillation and RVR, she is currently on Cardizem 50 mg an hour. On auscultation, she has bibasilar crackles, and, she is in atrial fibrillation. She has lower extremity edema as well. Labs, x- rays, medications are reviewed. We will continue to follow and make recommendations along the way. Her prognosis is certainly guarded. Plan dated 10/02/2023. The patient is seen in room 255. Currently, she is on room air, and saturations are 91%. Her nurse will probably place her back on oxygen at 2 L. The patient still having atrial fibrillation with rapid ventricular response, and for that reason, she is on Cardizem at 10 mg an hour, and amiodarone at 0.5 mg/m. Her examination still reveals evidence of bibasilar crackles, and lower extremity edema. Labs, x-rays, and medications are reviewed. The patient's overall p rognosis remains guarded. She obviously cannot be the ICU at this time. Plan dated 10/03/2023. The patient is seen today in room 255. She's currently on 2 L. She continues on Cardizem for atrial fibrillation and RVR, 10 mg an hour. She's not getting any additional IV fluids. She didn't use BiPAP last night, for about an hour and a half. Her BiPAP settings are 16/6 and 45%. She may need to use it more than she's currently using it. Labs, x-rays, medications are reviewed. Overall prognosis remains guarded. We will continue to follow the patient, and make recommendations along the way. Time with Patient: Greater than 30
--- NOTE | 2023-10-03 12:37 | P.PN ---
Subjective Progress Note Date: 10/03/23 This is a pleasant 73 year old female who comes in and is being treated for A. fib RVR as well as acute heart failure. Patient has been taken off IV amiodarone drip today and started on oral amiodarone, IV Lasix has been decreased every 12 hours, remains on IV Cardizem. Echocardiogram shows normal LV function with moderate MR and [id number] TR and mild pulmonary hypertension. Indwelling catheter is in place she is diuresing well. Today she's been downgraded from the intensive care unit and pending bed placement on the stepdown unit. Most recent chest x-ray today shows bilateral infiltrates which are stable. Sodium 136, BUN 41, creatinine 1.12. 10/03/2023 Patient remains in intensive care unit as a hold for stepdown unit. Remains on IV lasix Q12 overnight patient reports increased difficulty in breathing and states she had a rough night. Heart back up into the 120s. On oral amiodarone and remains on IV cardizem running at 10 mls/hr. Chest xray today reveals bibasilar infiltrates; correlate for atelectasis or pneumonia. Atypical pulm edema could be considered. Mild cardiomegaly. Sodium is 136, BUN 36, creatinine 1.06. BP on the lower side 90/58. Review of Systems Constitutional: Denied any fatigue denied any fever. Cardio vascular: denied any chest pain, palpitations Gastrointestinal: denied any nausea, vomiting, diarrhea Pulmonary: Reports shortness of breath cough Neurologic denied any new focal deficits, reports weakness. All inpatient medications were reviewed and appropriate changes in these medications as dictated in the interval history and assessment and plan. PHYSICAL EXAMINATION: GENERAL: The patient is alert and oriented x3, not in any acute distress. Well developed, well nourished. on nasal cannula. HEENT: Pupils are round and equally reacting to light. EOMI. No scleral icterus. No conjunctival pallor. Normocephalic, atraumatic. No pharyngeal erythema. No thyromegaly. CARDIOVASCULAR: S1 and S2 present. No murmurs, rubs, or gallops. PULMONARY: Lungs are tight decreased inspiratory effort. No crackles or wheezing. Remains on nasal cannula. ABDOMEN: Soft, nontender, nondistended, normoactive bowel sounds. No palpable organomegaly. MUSCULOSKELETAL: No joint swelling or deformity. EXTREMITIES: No cyanosis, clubbing, or pedal edema. Bilateral LE +2 nonpitting edema. NEUROLOGICAL: Gross neurological examination did not reveal any focal deficits. Generalized weakness. SKIN: No rashes. Assessment Paroxysmal Atrial fibrillation with rapid ventricular rate Acute on chronic CHF exacerbation, diastolic dysfunction, ef 55-60% Acute hypoxic respiratory failure secondary to the above Acute UTI, culture reporting E. coli Acute renal failure Pulmonary embolism bilaterally status post EKOS, 03/14/2022 Pulmonary hypertension Moderate mitral and tricuspid regurgitation Hypothyroidism Hypertension Hyperlipidemia Generalized weakness and medical debility. Osteoarthritis with history right knee placement in July 2022. Morbid obesity, BMI 46 GI prophylaxis DVT prophylaxis anticoagulated with eliquis Full Code Plan Patient has been downgraded from ICU pending bed on the stepdown unit Remains on IV lasix with strict intake and output monitoring Transitioned to oral amiodarone, remains on IV cardizem rate at 10 mls/hr, ventricular rate hard to control. Incentive spirometer ordered patient encouraged to cough and deep breath. PT/OT consulted patient likely will need subacute rehab AM labs The impression and plan of care has been dictated by Preethi Gamez, Nurse Practitioner as directed. Dr. Bruce MD I have performed a history and physical examination and medical decision making of this patient, discussed the same with the dictator, and agree with the dictators assessment and plan as written, documented as a scribe. Based on total visit time, I have performed more than 50% of this visit. Objective - Vital Signs Vital signs: Vital Signs Temp 98 F 10/03/23 08:00 Pulse 130 H 10/03/23 08:00 Resp 22 10/03/23 08:00 BP 90/58 10/03/23 08:00 Pulse Ox 96 10/03/23 08:00 FiO2 45 10/01/23 23:54 Intake & Output 10/02/23 10/03/23 10/03/23 18:59 06:59 18:59 Intake Total 395 125 100 Output Total 945 1500 600 Balance -550 -1375 -500 Weight 138.9 kg 136 kg Intake: Intake, IV Titration 125 125 Amount Diltiazem 125 mg In 125 125 Sodium Chloride 0.9% 100 ml @ 5 MG/HR 5 mls/hr IV .Q24H [facility] Rx#:[id number] Oral 270 100 Output: Urine 945 1500 600 Other: Voiding Method Indwelling Catheter Indwelling Catheter Indwelling Catheter - Labs CBC & Chem 7: 10/03/23 05:54 10/03/23 05:54 Labs: Abnormal Lab Results - Last 24 Hours (Table) 10/03/23 10/03/23 Range/Units 05:54 05:54 MCV 100.4 H (80.0-100.0) fL Sodium 136 L (137-145) mmol/L Chloride 97 L (98-107) mmol/L Carbon Dioxide 32 H (22-30) mmol/L BUN 36 H (7-17) mg/dL Creatinine 1.06 H (0.52-1.04) mg/dL Glucose 116 H (74-99) mg/dL Assessment and Plan Time with Patient: Less than 30
[2023-10-03] MEDS: ONDANSETRON 4 MG/2 ML VIAL IVP PRN (14:43)
[2023-10-03] MEDS: ATORVASTATIN 80 MG TAB PO SCH (21:58)
[2023-10-04 05:48] LABS: African American GFR (CKD) 58 (>60 ml/min/1.73 sqM); Anion Gap 9 mmol/L; Blood Urea Nitrogen 40 mg/dL (7-17); Calcium 9.1 mg/dL (8.4-10.2); Carbon Dioxide 31 mmol/L (22-30); Chloride 98 mmol/L (98-107); Glucose 116 mg/dL (74-99); Non-African American GFR(CKD) 50 (>60 ml/min/1.73 sqM); Potassium 4.1 mmol/L (3.5-5.1); Sodium 138 mmol/L (137-145)
[2023-10-04] MEDS: DILTIAZEM 125 MG in SODIUM CHLORIDE 0.9% 100 ML IV SCH ×2 (05:55→08:38)
[2023-10-04] MEDS: LEVOTHYROXINE 88 MCG TAB PO SCH (06:08)
--- NOTE | 2023-10-04 07:06 | P.PN ---
Subjective This is a pleasant 73 year old female who comes in and is being treated for A. fib RVR as well as acute heart failure. Patient has been taken off IV amiodarone drip today and started on oral amiodarone, IV Lasix has been decreased every 12 hours, remains on IV Cardizem. Echocardiogram shows normal LV function with moderate MR and [id number] TR and mild pulmonary hypertension. Indwelling catheter is in place she is diuresing well. Today she's been downgraded from the intensive care unit and pending bed placement on the stepdown unit. Most recent chest x-ray today shows bilateral infiltrates which are stable. Sodium 136, BUN 41, creatinine 1.12. 10/03/2023 Patient remains in intensive care unit as a hold for stepdown unit. Remains on IV lasix Q12 overnight patient reports increased difficulty in breathing and states she had a rough night. Heart back up into the 120s. On oral amiodarone and remains on IV cardizem running at 10 mls/hr. Chest xray today reveals bibasilar infiltrates; correlate for atelectasis or pneumonia. Atypical pulm edema could be considered. Mild cardiomegaly. Sodium is 136, BUN 36, creatinine 1.06. BP on the lower side 90/58. 10/04/2023 Patient is still complaining of shortness of breath with some exertional dyspnea, today she was able to walk in the hallway. She is unable to sit in the chair. BiPAP overnight is helping her and she confirms. She still mildly tachypneic and tachycardic with heart rate around 88-108 she still on Cardizem drip at 10 mg per hour. Also she is already Lasix 40 mg twice daily. She has a little was at home 5 mg twice a day. Objective - Vital Signs Vital signs: Vital Signs Temp 97.3 F L 10/04/23 04:00 Pulse 88 10/04/23 04:00 Resp 29 H 10/04/23 04:00 BP 102/65 10/04/23 04:00 Pulse Ox 96 10/04/23 04:00 FiO2 45 10/04/23 04:09 Intake & Output 10/03/23 10/04/23 10/04/23 18:59 06:59 18:59 Intake Total 409.667 375 Output Total 2100 850 Balance -1690.333 -475 Weight 138.7 kg Intake: Intake, IV Titration 109.667 125 Amount Diltiazem 125 mg In 109.667 125 Sodium Chloride 0.9% 100 ml @ 5 MG/HR 5 mls/hr IV .Q24H [facility] Rx#:[id number] Oral 300 250 Output: Urine 2100 850 Other: Voiding Method Indwelling Catheter Indwelling Catheter - Exam GENERAL: The patient is alert and oriented x3, not in any acute distress. Well developed, well nourished. HEENT: Pupils are round and equally reacting to light. EOMI. No scleral icterus. No conjunctival pallor. Normocephalic, atraumatic. No pharyngeal erythema. No thyromegaly. CARDIOVASCULAR: S1 and S2 present. No murmurs, rubs, or gallops. -PULMONARY: Chest is clear to auscultation, no wheezing , bilateral basal crackles. ABDOMEN: Soft, nontender, nondistended, normoactive bowel sounds. No palpable organomegaly. MUSCULOSKELETAL: No joint swelling or deformity. -EXTREMITIES: No cyanosis, clubbing bilateral pitting leg edema NEUROLOGICAL: Gross neurological examination did not reveal any focal deficits. SKIN: No rashes. no petechiae. - Labs CBC & Chem 7: 10/03/23 05:54 10/04/23 05:17 Labs: Abnormal Lab Results - Last 24 Hours (Table) 10/03/23 10/04/23 Range/Units 05:54 05:17 Sodium 136 L (137-145) mmol/L Chloride 97 L (98-107) mmol/L Carbon Dioxide 32 H 31 H (22-30) mmol/L BUN 36 H 40 H (7-17) mg/dL Creatinine 1.06 H 1.08 H (0.52-1.04) mg/dL Glucose 116 H 116 H (74-99) mg/dL Assessment and Plan Assessment: Paroxysmal Atrial fibrillation with rapid ventricular rate Acute on chronic CHF exacerbation, diastolic dysfunction, ef 55-60% Acute hypoxic respiratory failure secondary to the above Acute UTI, culture reporting E. coli Acute renal failure Pulmonary embolism bilaterally status post EKOS, 03/14/2022 Pulmonary hypertension Moderate mitral and tricuspid regurgitation Hypothyroidism Hypertension Hyperlipidemia Generalized weakness and medical debility. Osteoarthritis with history right knee placement in July 2022. Morbid obesity, BMI 46 Plan: Continue with Lasix, iv Continue with Cardizem drip 10 mg per hour and amiodarone 400 mg twice a day and metoprolol 50 mg 3 times a day She's on eliquis 5 mg at home Cardiology and pulmonary consult BiPAP at night. Labs and medication were reviewed.. Continue same treatment. Continue with symptomatic treatment. Resume home medication. Monitor labs and vitals. DVT and GI prophylaxis. Further recommendations as per clinical course of the patient DVT prophylaxis: eliquis GI Prophylaxis: Ppi PT/OT: hhc Prognosis is guarded
[2023-10-04] MEDS: ALBUTEROL NEBULIZED 2.5 MG/3 ML INHALATION PRN ×2 (07:50→15:46)
[2023-10-04] MEDS: AMIODARONE 200 MG TAB PO SCH ×2 (08:37→20:09)
[2023-10-04] MEDS: POTASSIUM CHLORIDE ER 20 MEQ TAB.ER PO SCH (08:37)
[2023-10-04] MEDS: METOPROLOL TARTRATE 50 MG TAB PO SCH ×3 (08:37→22:03)
[2023-10-04] MEDS: guaiFENesin 600 MG TABLET.ER PO SCH ×2 (08:37→20:09)
[2023-10-04] MEDS: MAGNESIUM OXIDE 400 MG TAB PO SCH (08:37)
[2023-10-04] MEDS: APIXABAN 5 MG TAB PO SCH ×2 (08:38→20:09)
[2023-10-04] MEDS: DILTIAZEM ORAL 30 MG TAB PO SCH ×2 (08:49→17:48)
[2023-10-04] MEDS: FUROSEMIDE 10 MG/ML 2 ML VIAL IV SCH ×2 (08:49→20:09)
[2023-10-04] MEDS: PANTOPRAZOLE 40 MG/10 ML VIAL IVP SCH (09:00)
--- NOTE | 2023-10-04 09:34 | PN ---
PROGRESS NOTE SUBJECTIVE: Mariel is a 73-year-old lady, who is in the ICU with atrial fibrillation with poorly controlled ventricular rate and congestive heart failure. She is currently on Eliquis, amiodarone 400 b.i.d., Lopressor 50 t.i.d., K-Dur, and intravenous Cardizem. The plan is to taper and stop the Cardizem and started on oral Cardizem. I will get rid of the compression devices on her legs, increase her activity, make her spend more of her time sitting in an effort to get her ready to discharge her home later. OBJECTIVE: VITAL SIGNS: On exam, she remains in atrial fibrillation. Heart rate is between 88 and 110, O2 saturation is 95% on 2 L, blood pressure is 90/60. CHEST: Reveals good air entry bilaterally. There are no crackles or rhonchi. HEART: Reveals first and second heart sounds. Irregular rhythm. ABDOMEN: Soft. EXTREMITIES: Exam of extremities reveals mild edema bilaterally. LABORATORIES: Show that the potassium is 4.1, BUN is 40, creatinine is 1. ASSESSMENT: Persistent atrial fibrillation with better controlled ventricular rate, acute on chronic diastolic heart failure. PLAN: I will cut back on the dose of her Lasix, increase her activity, try and taper the Cardizem. MMODL / IJN: [id number] /
--- NOTE | 2023-10-04 10:12 | P.PN ---
Subjective Progress Note Date: 10/04/23 Principal diagnosis: Shortness of breath. Pulmonary consult dated 09/30/2023. 73-year-old female who presented to the emergency department on September 26, complaining of arrhythmias, and palpitations. The patient does have a history of hypertension, atrial fibrillation, hyperlipidemia, pulmonary embolism, and hypothyroidism. The patient apparently was having some lower extremity edema, shortness of breath, and orthopnea. She also had mild exertional dyspnea. The patient denied any chest pain or chest discomfort. She was seen by the ER physician, and admitted with a diagnosis of atrial fibrillation, CHF, and urinary tract infection. Today, a rapid response was called on this patient, and, R ICU charge nurse, who evaluated the patient, and thought the patient should come down to the intensive care unit, for further monitoring and management. She was given some IV Lasix, and placed on BiPAP, with settings of 16/6, and 100%. She was seen in the intensive care unit, room 255. She was sitting up in bed, with mild respiratory distress, on the BiPAP device. White count was 13.7, hemoglobin 14.5, hematocrit 44.4, and a normal platelet count. Sodium 135, potassium 3.9, chlorides 96, CO2 27, anion gap 12, BUN 37, and creatinine 1.26. N-terminal proBNP, on September 29, was 7020. The patient had chest x-rays on the and on the . Today's chest x-ray shows worsening pulmonary edema. Progress note dated 10/01/2023. 73-year-old female seen again in intensive care unit, room 255. The patient was admitted with a diagnosis of acute hypoxemic respiratory failure, secondary to CHF, as well as atrial fibrillation with RVR. The patient is currently on high flow nasal O2, at 13 L. In addition, the patient uses BiPAP intermittently at 16/6, and 60%. For her atrial fibrillation and RVR, the patient's on Cardizem 15 mg an hour. Clinically, she's starting to feel a bit better. White count 9.4, hemoglobin 14, hematocrit 43.1, and platelet count 223,000. Sodium 136, potassium 4.1, chlorides 96, CO2 29, BUN 37, and creatinine 1.30. Calcium is 9.2. Chest x-ray shows improved vascular congestion. Progress note dated 10/02/2023. 73-year-old female seen in the intensive care unit, room 255. She was admitted initially with a diagnosis of acute hypoxemic respiratory failure secondary to CHF, as well as atrial fibrillation with rapid ventricular response. The patient is currently on room air, with saturations of 91%. Unfortunately, she continues on Cardizem at 10 mg an hour, and amiodarone at 0.5 mg/m. White count 9, hemoglobin 12.8, hematocrit 39.4, within normal platelet count. Sodium 136, potassium 4.3, chloride 96, CO2 34, BUN 41, creatinine 1.12. Glucose is 112. Urine culture is showing evidence of Escherichia coli. Chest x-ray shows improvement in the patient's pulmonary vascular status. Progress note dated 10/03/2023. 73-year-old female seen today in room 255, intensive care unit. She was admitted with a diagnosis of acute hypoxemic respiratory failure, secondary to CHF, as well as atrial fibrillation, with rapid ventricular response. Currently, the patient is on 2 L of oxygen. She's on a Cardizem drip at 10 mg an hour. She's not receiving any IV fluids additionally. The patient that she is BiPAP, intermittently, with settings of 16/6, and 45%. She use BiPAP last night for about an hour and a half. She needs to be using it more frequently. White count 9.4, hemoglobin 12.9, hematocrit 39.2, and platelet count 187,000. Sodium 136, potassium 4.1, chlorides 97, CO2 32, BUN 36, creatinine 1.06. Gluc ose 116. Calcium is 9. Chest x-ray shows improved pulmonary vascular status. Progress note dated 10/04/2023. 73-year-old female seen again in the intensive care unit, room 255. Currently, she is on 2 L of oxygen. She's on a Cardizem drip at 10 mg an hour, to be dropped on the 5 mg an hour. She did use of BiPAP last night, for many hours, and it seemed to help. Her settings include 16/6, and 45%. She currently remains in atrial fibrillation with a rate of 128 bpm. Labs today include a s odium 138, potassium 4.1, chlorides 98, CO2 31, BUN 40, and creatinine 1.08. Glucose 116. Calcium is 9.1. No chest x-ray today. Objective - Vital Signs Vital signs: Vital Signs Temp 97.3 F L 10/04/23 04:00 Pulse 112 H 10/04/23 08:03 Resp 29 H 10/04/23 04:00 BP 102/65 10/04/23 04:00 Pulse Ox 95 10/04/23 07:54 FiO2 45 10/04/23 04:09 Intake & Output 10/03/23 10/04/23 10/04/23 18:59 06:59 18:59 Intake Total 409.667 375 Output Total 2100 850 Balance -1690.333 -475 Weight 138.7 kg Intake: Intake, IV Titration 109.667 125 Amount Diltiazem 125 mg In 109.667 125 Sodium Chloride 0.9% 100 ml @ 5 MG/HR 5 mls/hr IV .Q24H [facility] Rx#:[id number] Oral 300 250 Output: Urine 2100 850 Other: Voiding Method Indwelling Catheter Indwelling Catheter - Exam Mild respiratory distress, with mild conversational dyspnea, currently on 2 L nasal cannula. The patient is oriented 3. HEENT examination is grossly unremarkable. Mucous membranes are moist. No oral lesions. Neck supple. Full range of motion. No adenopathy thyromegaly or neck vein distention. Cardiovascular examination reveals an irregular rhythm and rate. S1-S2 normal. No S3 or S4. No discernible murmur noted. Heart rate 128. Lungs reveal by basilar crackles. Breath sounds are equal bilaterally. No rhonchi. No wheezes. 2 L saturation is 95 %. Abdomen soft bowel sounds are heard. No masses or tenderness. Extremities are intact. No cyanosis or clubbing. Mild lower extremity edema. Skin is without rash or lesion. Neurologic examination is brief but nonfocal. - Labs CBC & Chem 7: 10/03/23 05:54 10/04/23 05:17 Labs: Abnormal Lab Results - Last 24 Hours (Table) 10/04/23 Range/Units 05:17 Carbon Dioxide 31 H (22-30) mmol/L BUN 40 H (7-17) mg/dL Creatinine 1.08 H (0.52-1.04) mg/dL Glucose 116 H (74-99) mg/dL Assessment and Plan Assessment: Acute hypoxemic respiratory failure, secondary to worsening congestive heart failure. History of chronic atrial fibrillation, with rapid ventricular response. Escherichia coli urinary tract infection. History of hypertension. History of hyperlipidemia. History of pulmonary embolism. History of hypothyroidism. History of osteoarthritis. Plan: Plan dated 09/30/2023. The patient is seen today in the intensive care unit, room 255. She is on BiPAP currently, and I've asked the nurses, to inform respiratory therapy, to wean the patient's FiO2 down, as she improves. The patient has received additional Lasix, 40 mg earlier, and another 40 mg IV push now. The patient was placed on 40 mg of Lasix, IV push every 8 hours. We will continue to follow and make recommendations along the way. Labs, x-rays, and medications are reviewed. Prognosis is guarded. Plan dated 10/01/2023. Patient is seen in the intensive care unit, room 255. Currently, she is on high flow nasal O2 at 13 L. In addition, she is on BiPAP, intermittently at 16/6, and 60%. Because of her atrial fibrillation and RVR, she is currently on Cardizem 50 mg an hour. On auscultation, she has bibasilar crackles, and, she is in atrial fibrillation. She has lower extremity edema as well. Labs, x- rays, medications are reviewed. We will continue to follow and make recommendations along the way. Her prognosis is certainly guarded. Plan dated 10/02/2023. The patient is seen in room 255. Currently, she is on room air, and saturations are 91%. Her nurse will probably place her back on oxygen at 2 L. The patient still having atrial fibrillation with rapid ventricular response, and for that reason, she is on Cardizem at 10 mg an hour, and amiodarone at 0.5 mg/m. Her examination still reveals evidence of bibasilar crackles, and lower extremity edema. Labs, x-rays, and medications are reviewed. The patient's overall prognosis remains guarded. She obviously cannot be the ICU at this time. Plan dated 10/03/2023. The patient is seen today in room 255. She's currently on 2 L. She continues on Cardizem for atrial fibrillation and RVR, 10 mg an hour. She's not getting any additional IV fluids. She didn't use BiPAP last night, for about an hour and a half. Her BiPAP settings are 16/6 and 45%. She may need to use it more than she's currently using it. Labs, x-rays, medications are reviewed. Overall prognosis remains guarded. We will continue to follow the patient, and make recommendations along the way. Plan dated 10/04/2023. The patient is seen today in room 255. She remains on 2 L of oxygen. She's on a Cardizem drip at 10 mg an hour. He'll be turned down to 5 mg an hour. She does continue on IV Lasix. Her lower extremity edema is much improved. Labs, x-rays, and medications are reviewed. We will continue to follow the patient, and make recommendations along the way. No additional comments at this time. Her overall prognosis remains guarded. She did use of BiPAP last night, which is really seem to help. We encourage her to use it nightly, as it will reduce venous return, reduce preload, and help her with her congestive heart failure. Time with Patient: Less than 30
[2023-10-04] MEDS: ONDANSETRON 4 MG/2 ML VIAL IVP PRN (12:27)
[2023-10-04] MEDS: ATORVASTATIN 80 MG TAB PO SCH (20:09)
[2023-10-05] MEDS: LORazepam 2 MG/ML INJ IV PRN ×3 (00:21→21:12)
[2023-10-05] MEDS: ALBUTEROL NEBULIZED 2.5 MG/3 ML INHALATION PRN ×2 (00:29→19:41)
[2023-10-05 00:49] LABS: ABG HCO3 29 mmol/L (21-25); ABG Oxygen Saturation 89.1 % (94-97); ABG PCO2 61 mmHg (35-45); ABG PH 7.28 (7.35-7.45); ABG PO2 66 mmHg (83-108); ABG TCO2 31 mmol/L (19-24); Allen Test Performed? Yes
[2023-10-05 00:49] LABS: Glucose,Whole Blood 295 mg/dL (70-110)
[2023-10-05 01:10] LABS: Glucose,Whole Blood 250 mg/dL (70-110)
[2023-10-05] MEDS: DILTIAZEM ORAL 30 MG TAB PO SCH ×3 (01:41→18:04)
[2023-10-05] MEDS: DILTIAZEM 125 MG in SODIUM CHLORIDE 0.9% 100 ML IV SCH (03:31)
[2023-10-05] MEDS: LEVOTHYROXINE 88 MCG TAB PO SCH (05:50)
[2023-10-05 06:33] LABS: HCT 40.7 % (34.0-46.0); MCH 31.7 pg (25.0-35.0); MCV 98.9 fL (80.0-100.0); Platelet Count 229 k/uL (150-450); RBC 4.11 m/uL (3.80-5.40); WBC 13.8 k/uL (3.8-10.6)
[2023-10-05 06:54] LABS: African American GFR (CKD) 46 (>60 ml/min/1.73 sqM); Anion Gap 9 mmol/L; Blood Urea Nitrogen 46 mg/dL (7-17); Carbon Dioxide 28 mmol/L (22-30); Chloride 99 mmol/L (98-107); Glucose 102 mg/dL (74-99); Non-African American GFR(CKD) 40 (>60 ml/min/1.73 sqM); Potassium 4.6 mmol/L (3.5-5.1); Sodium 136 mmol/L (137-145)
--- NOTE | 2023-10-05 08:23 | XR ---
EXAMINATION TYPE: XR chest 1V portable DATE OF EXAM: 10/05/2023 8:14 AM COMPARISON: Chest radiographs from 10/03/2023 TECHNIQUE: XR chest 1V portable Portable AP radiograph of the chest. CLINICAL INDICATION:Female, 73 years old with history of CHF; FINDINGS: Lungs/Pleura: No evidence of focal consolidation or pneumothorax. Blunting of the costophrenic angles is present. Low lung volumes. Pulmonary vascularity: Unremarkable. Heart/mediastinum: Cardiomediastinal silhouette is enlarged and stable. Atherosclerotic calcificatio ns are seen in the aorta. Musculoskeletal: No acute osseous pathology. IMPRESSION: Low lung volumes with cardiomegaly,pulmonary vascular congestion, and small bilateral pleural effusio ns most consistent with CHF exacerbation. Superimposed infectious process is not excluded.
--- NOTE | 2023-10-05 09:18 | P.PN ---
Subjective Progress Note Date: 10/05/23 Principal diagnosis: Shortness of breath. Pulmonary consult dated 09/30/2023. 73-year-old female who presented to the emergency department on September 26, complaining of arrhythmias, and palpitations. The patient does have a history of hypertension, atrial fibrillation, hyperlipidemia, pulmonary embolism, and hypothyroidism. The patient apparently was having some lower extremity edema, shortness of breath, and orthopnea. She also had mild exertional dyspnea. The patient denied any chest pain or chest discomfort. She was seen by the ER physician, and admitted with a diagnosis of atrial fibrillation, CHF, and urinary tract infection. Today, a rapid response was called on this patient, and, R ICU charge nurse, who evaluated the patient, and thought the patient should come down to the intensive care unit, for further monitoring and management. She was given some IV Lasix, and placed on BiPAP, with settings of 16/6, and 100%. She was seen in the intensive care unit, room 255. She was sitting up in bed, with mild respiratory distress, on the BiPAP device. White count was 13.7, hemoglobin 14.5, hematocrit 44.4, and a normal platelet count. Sodium 135, potassium 3.9, chlorides 96, CO2 27, anion gap 12, BUN 37, and creatinine 1.26. N-terminal proBNP, on September 29, was 7020. The patient had chest x-rays on the and on the . Today's chest x-ray shows worsening pulmonary edema. Progress note dated 10/01/2023. 73-year-old female seen again in intensive care unit, room 255. The patient was admitted with a diagnosis of acute hypoxemic respiratory failure, secondary to CHF, as well as atrial fibrillation with RVR. The patient is currently on high flow nasal O2, at 13 L. In addition, the patient uses BiPAP intermittently at 16/6, and 60%. For her atrial fibrillation and RVR, the patient's on Cardizem 15 mg an hour. Clinically, she's starting to feel a bit better. White count 9.4, hemoglobin 14, hematocrit 43.1, and platelet count 223,000. Sodium 136, potassium 4.1, chlorides 96, CO2 29, BUN 37, and creatinine 1.30. Calcium is 9.2. Chest x-ray shows improved vascular congestion. Progress note dated 10/02/2023. 73-year-old female seen in the intensive care unit, room 255. She was admitted initially with a diagnosis of acute hypoxemic respiratory failure secondary to CHF, as well as atrial fibrillation with rapid ventricular response. The patient is currently on room air, with saturations of 91%. Unfortunately, she continues on Cardizem at 10 mg an hour, and amiodarone at 0.5 mg/m. White count 9, hemoglobin 12.8, hematocrit 39.4, within normal platelet count. Sodium 136, potassium 4.3, chloride 96, CO2 34, BUN 41, creatinine 1.12. Glucose is 112. Urine culture is showing evidence of Escherichia coli. Chest x-ray shows improvement in the patient's pulmonary vascular status. Progress note dated 10/03/2023. 73-year-old female seen today in room 255, intensive care unit. She was admitted with a diagnosis of acute hypoxemic respiratory failure, secondary to CHF, as well as atrial fibrillation, with rapid ventricular response. Currently, the patient is on 2 L of oxygen. She's on a Cardizem drip at 10 mg an hour. She's not receiving any IV fluids additionally. The patient that she is BiPAP, intermittently, with settings of 16/6, and 45%. She use BiPAP last night for about an hour and a half. She needs to be using it more frequently. White count 9.4, hemoglobin 12.9, hematocrit 39.2, and platelet count 187,000. Sodium 136, potassium 4.1, chlorides 97, CO2 32, BUN 36, creatinine 1.06. Gluc ose 116. Calcium is 9. Chest x-ray shows improved pulmonary vascular status. Progress note dated 10/04/2023. 73-year-old female seen again in the intensive care unit, room 255. Currently, she is on 2 L of oxygen. She's on a Cardizem drip at 10 mg an hour, to be dropped on the 5 mg an hour. She did use of BiPAP last night, for many hours, and it seemed to help. Her settings include 16/6, and 45%. She currently remains in atrial fibrillation with a rate of 128 bpm. Labs today include a s odium 138, potassium 4.1, chlorides 98, CO2 31, BUN 40, and creatinine 1.08. Glucose 116. Calcium is 9.1. No chest x-ray today. Progress note dated 10/05/2023. 73-year-old female who was sent out of the intensive care unit yesterday, and came back into the intensive care unit, sometime early this morning. She apparently developed worsening shortness of breath, was severely anxious, receive some benzodiazepine, and, required BiPAP therapy. I was called by the nurse who went to the rapid response, and we decided to move the patient back to the intensive care unit. Currently, she is seen in room 261. She is on BiPAP, with settings of 16/6 and 60%. Gases done on 100% show pO2 of 66, pCO2 61, pH is 7.28. The patient is on Cardizem 5 mg an hour. She's not receiving any additional IV fluids. We did order a chest x-ray today, and N-terminal proBNP. Labs today include a white count 13.8, hemoglobin 13, hematocrit 40.7 and a platelet count 229,000. Sodium 136, potassium 4.6, chlorides 99, CO2 28, BUN 46, creatinine 1.31. Calcium is 9. Today's chest x-rays consistent with cardi omegaly, small bilateral pleural effusions, and pulmonary vascular congestion. Objective - Vital Signs Vital signs: Vital Signs Temp 98.5 F 10/05/23 03:30 Pulse 113 H 10/05/23 07:00 Resp 17 10/05/23 07:00 BP 107/55 10/05/23 07:00 Pulse Ox 96 10/05/23 07:00 FiO2 50 10/05/23 08:01 Intake & Output 10/04/23 10/05/23 10/05/23 18:59 06:59 18:59 Intake Total 900 94.417 Output Total 1050 255 Balance -150 -160.583 Weight 140.1 kg Intake: Intake, IV Titration 94.417 Amount Diltiazem 125 mg In 94.417 Sodium Chloride 0.9% 100 ml @ 5 MG/HR 5 mls/hr IV .Q24H [facility] Rx#:[id number] Oral 900 Output: Urine 1050 255 Other: Voiding Method Indwelling Catheter Indwelling Catheter - Exam Currently on BiPAP, at 16/6 and 60%. The patient is very somnolent/lethargic. HEENT examination is grossly unremarkable. Neck supple. Full range of motion. No adenopathy thyromegaly or neck vein distention. Cardiovascular examination reveals an irregular rhythm and rate. S1-S2 normal. No S3 or S4. No discernible murmur noted. Heart rate 113. Heart sounds are distant. Lungs reveal by basilar crackles. Breath sounds are equal bilaterally. No rhonchi. No wheezes. Saturations are 96%. Abdomen soft bowel sounds are heard. No masses or tenderness. Extremities are intact. No cyanosis or clubbing. Mild lower extremity edema. Skin is without rash or lesion. Neurologic examination is brief but nonfocal. - Labs CBC & Chem 7: 10/05/23 05:58 10/05/23 05:58 Labs: Abnormal Lab Results - Last 24 Hours (Table) 10/05/23 10/05/23 10/05/23 Range/Units 00:40 00:47 01:08 WBC (3.8-10.6) k/uL ABG pH 7.28 L (7.35-7.45) ABG pCO2 61 H (35-45) mmHg ABG pO2 66 L (83-108) mmHg ABG HCO3 29 H (21-25) mmol/L ABG Total CO2 31 H (19-24) mmol/L ABG O2 Saturation 89.1 L (94-97) % Sodium (137-145) mmol/L BUN (7-17) mg/dL Creatinine (0.52-1.04) mg/dL Glucose (74-99) mg/dL POC Glucose (mg/dL) 295 H 250 H (70-110) mg/dL 10/05/23 10/05/23 Range/Units 05:58 05:58 WBC 13.8 H (3.8-10.6) k/uL ABG pH (7.35-7.45) ABG pCO2 (35-45) mmHg ABG pO2 (83-108) mmHg ABG HCO3 (21-25) mmol/L ABG Total CO2 (19-24) mmol/L ABG O2 Saturation (94-97) % Sodium 136 L (137-145) mmol/L BUN 46 H (7-17) mg/dL Creatinine 1.31 H (0.52-1.04) mg/dL Glucose 102 H (74-99) mg/dL POC Glucose (mg/dL) (70-110) mg/dL Assessment and Plan Assessment: Acute hypoxemic respiratory failure, secondary to worsening congestive heart failure. History of chronic atrial fibrillation, with rapid ventricular response. Escherichia coli urinary tract infection. History of hypertension. History of hyperlipidemia. History of pulmonary embolism. History of hypothyroidism. History of osteoarthritis. Plan: Plan dated 09/30/2023. The patient is seen today in the intensive care unit, room 255. She is on BiPAP currently, and I've asked the nurses, to inform respiratory therapy, to wean the patient's FiO2 down, as she improves. The patient has received additional Lasix, 40 mg earlier, and another 40 mg IV push now. The patient was placed on 40 mg of Lasix, IV push every 8 hours. We will continue to follow and make recommendations along the way. Labs, x-rays, and medications are reviewed. Prognosis is guarded. Plan dated 10/01/2023. Patient is seen in the intensive care unit, room 255. Currently, she is on high flow nasal O2 at 13 L. In addition, she is on BiPAP, intermittently at 16/6, and 60%. Because of her atrial fibrillation and RVR, she is currently on Cardizem 50 mg an hour. On auscultation, she has bibasilar crackles, and, she is in atrial fibrillation. She has lower extremity edema as well. Labs, x- rays, medications are reviewed. We will continue to follow and make recommendations along the way. Her prognosis is certainly guarded. Plan dated 10/02/2023. The patient is seen in room 255. Currently, she is on room air, and saturations are 91%. Her nurse will probably place her back on oxygen at 2 L. The patient still having atrial fibrillation with rapid ventricular response, and for that reason, she is on Cardizem at 10 mg an hour, and amiodarone at 0.5 mg/m. Her examination still reveals evidence of bibasilar crackles, and lower extremity edema. Labs, x-rays, and medications are reviewed. The patient's overall prognosis remains guarded. She obviously cannot be the ICU at this time. Plan dated 10/03/2023. The patient is seen today in room 255. She's currently on 2 L. She continues on Cardizem for atrial fibrillation and RVR, 10 mg an hour. She's not getting any additional IV fluids. She didn't use BiPAP last night, for about an hour and a half. Her BiPAP settings are 16/6 and 45%. She may need to use it more than she's currently using it. Labs, x-rays, medications are reviewed. Overall prognosis remains guarded. We will continue to follow the patient, and make recommendations along the way. Plan dated 10/04/2023. The patient is seen today in room 255. She remains on 2 L of oxygen. She's on a Cardizem drip at 10 mg an hour. He'll be turned down to 5 mg an hour. She does continue on IV Lasix. Her lower extremity edema is much improved. Labs, x-rays, and medications are reviewed. We will continue to follow the patient, and make recommendations along the way. No additional comments at this time. Her overall prognosis remains guarded. She did use of BiPAP last night, which is really seem to help. We encourage her to use it nightly, as it will reduce venous return, reduce preload, and help her with her congestive heart failure. Plan dated 10/05/2023. The patient is seen today in room 261. She was in the intensive care unit, for the last few days, and no doubt yesterday. Unfortunately, because of worsening respiratory status and CHF, she was transferred back to the intensive care unit, sometime early this morning. Currently, the patient's on BiPAP, with settings of 16/6 and 60%. Her gases have been reviewed. She continues on Cardizem 5 mg an hour. Labs, x-rays, and medications are reviewed. We will continue to follow and make recommendations along the way. Prognosis is certainly very guarded. Time with Patient: Greater than 30
[2023-10-05] MEDS: AMIODARONE 200 MG TAB PO SCH ×2 (09:50→21:12)
[2023-10-05] MEDS: PANTOPRAZOLE 40 MG/10 ML VIAL IVP SCH (09:50)
[2023-10-05] MEDS: MAGNESIUM OXIDE 400 MG TAB PO SCH (09:51)
[2023-10-05] MEDS: guaiFENesin 600 MG TABLET.ER PO SCH ×2 (09:51→21:12)
[2023-10-05] MEDS: APIXABAN 5 MG TAB PO SCH ×2 (09:51→21:12)
[2023-10-05] MEDS: METOPROLOL TARTRATE 50 MG TAB PO SCH ×2 (09:51→18:17)
[2023-10-05] MEDS: POTASSIUM CHLORIDE ER 20 MEQ TAB.ER PO SCH (09:51)
[2023-10-05] MEDS: FUROSEMIDE 10 MG/ML 2 ML VIAL IV SCH ×2 (09:51→21:12)
[2023-10-05] MEDS: ATORVASTATIN 80 MG TAB PO SCH (21:12)
--- NOTE | 2023-10-05 21:46 | P.PN ---
Subjective This is a pleasant 73 year old female who comes in and is being treated for A. fib RVR as well as acute heart failure. Patient has been taken off IV amiodarone drip today and started on oral amiodarone, IV Lasix has been decreased every 12 hours, remains on IV Cardizem. Echocardiogram shows normal LV function with moderate MR and [id number] TR and mild pulmonary hypertension. Indwelling catheter is in place she is diuresing well. Today she's been downgraded from the intensive care unit and pending bed placement on the stepdown unit. Most recent chest x-ray today shows bilateral infiltrates which are stable. Sodium 136, BUN 41, creatinine 1.12. 10/03/2023 Patient remains in intensive care unit as a hold for stepdown unit. Remains on IV lasix Q12 overnight patient reports increased difficulty in breathing and states she had a rough night. Heart back up into the 120s. On oral amiodarone and remains on IV cardizem running at 10 mls/hr. Chest xray today reveals bibasilar infiltrates; correlate for atelectasis or pneumonia. Atypical pulm edema could be considered. Mild cardiomegaly. Sodium is 136, BUN 36, creatinine 1.06. BP on the lower side 90/58. 10/04/2023 Patient is still complaining of shortness of breath with some exertional dyspnea, today she was able to walk in the hallway. She is unable to sit in the chair. BiPAP overnight is helping her and she confirms. She still mildly tachypneic and tachycardic with heart rate around 88-108 she still on Cardizem drip at 10 mg per hour. Also she is already Lasix 40 mg twice daily. She has a little was at home 5 mg twice a day. 10/05/2023 Patient was transferred to the intensive care unit today after worsening respiratory status secondary to worsening pulmonary congestion with increased oxygen requirements up to 6 L/m after it was 1-2 L yesterday. She was getting Lasix 40 mg twice daily and the dose was lowered to 20 mg twice daily. Creatinine is slightly up at 1.3 but patient also with evidence of chronic kidney disease stage III. Also she is started yesterday CARDIZEM drip at 5 mg/h and amiodarone 400 mg and metoprolol 50 mg 3 times a day, her heart rate still somewhat elevated between 100 and 115, blood pressure is borderline with systolic 90-100. She was placed also on BiPAP. She is continued on Eliquis 5 mg Review of systems CONSTITUTIONAL: No fever, no malaise, no fatigue. HEENT: No recent visual problems or hearing problems. Denied any sore throat. CARDIOVASCULAR: No orthopnea, PND, no palpitations, no syncope. GASTROINTESTINAL: No diarrhea, no nausea, no vomiting, no abdominal pain. Normoactive bowel sounds. NEUROLOGICAL: No headaches, no weakness, no numbness. HEMATOLOGICAL: Denies any bleeding or petechiae. Active Medications Generic Name Dose Route Start Last Admin Trade Name Freq PRN Reason Stop Dose Admin Albuterol Sulfate 2.5 mg 09/29/23 15:31 10/05/23 19:41 Albuterol Nebulized 2.5 Mg/3 Ml INHALATION 2.5 mg RT-QID PRN Administration Shortness Of Breath Or Wheezing Amiodarone HCl 400 mg 10/02/23 10:00 10/05/23 21:12 Amiodarone 200 Mg Tab PO 400 mg BID ANNA Administration Apixaban 5 mg 09/26/23 21:00 10/05/23 21:12 Apixaban 5 Mg Tab PO 5 mg BID ANNA Administration Protocol Atorvastatin Calcium 80 mg 09/26/23 21:00 10/05/23 21:12 Atorvastatin 80 Mg Tab PO 80 mg HS ANNA Administration Calcium Carbonate/Glycine 1,000 mg 09/29/23 13:56 09/29/23 14:07 Calcium Carbonate 500 Mg Chewable PO 1,000 mg TID PRN Administration Heartburn Diltiazem HCl 30 mg 10/04/23 09:00 10/05/23 18:04 Diltiazem Oral 30 Mg Tab PO 30 mg Q8H ANNA Administration Furosemide 20 mg 10/04/23 09:00 10/05/23 21:12 Furosemide 10 Mg/Ml 2 Ml Vial IV 20 mg Q12HR ANNA Administration Guaifenesin 600 mg 09/29/23 17:14 10/05/23 21:12 Guaifenesin 600 Mg Tablet.Er PO 600 mg Q12HR ANNA Administration Diltiazem HCl 125 mg/ Sodium 125 mls @ 5 mls/hr 10/04/23 08:30 10/05/23 03:31 Chloride IV 5 mg/hr .Q24H ANNA 5 mls/hr Administration 5 MG/HR Levothyroxine Sodium 88 mcg 09/27/23 06:30 10/05/23 05:50 Levothyroxine 88 Mcg Tab PO 88 mcg DAILY@0630 ANNA Administration Lorazepam 0.5 mg 10/05/23 00:14 10/05/23 21:12 Lorazepam 2 Mg/Ml Inj IV 0.5 mg Q6HR PRN Administration Anxiety Magnesium Oxide 400 mg 09/27/23 09:00 10/05/23 09:51 Magnesium Oxide 400 Mg Tab PO 400 mg DAILY ANNA Administration Metoprolol Tartrate 50 mg 10/03/23 16:00 10/05/23 18:17 Metoprolol Tartrate 50 Mg Tab PO 50 mg TID ANNA Administration Naloxone HCl 0.2 mg 09/26/23 12:07 Naloxone 0.4 Mg/Ml 1 Ml Vial IV Q2M PRN Opioid Reversal Nystatin 1 applic 09/27/23 13:04 Nystatin 100,000 Unit/Gm Powd 15 Gm TOPICAL BID PRN Rash Protocol Ondansetron HCl 4 mg 09/29/23 14:47 10/04/23 12:27 Ondansetron 4 Mg/2 Ml Vial IVP 4 mg Q6HR PRN Administration Nausea And Vomiting Pantoprazole Sodium 40 mg 09/27/23 19:45 10/05/23 09:50 Pantoprazole 40 Mg/10 Ml Vial IVP 40 mg DAILY ANNA Administration Potassium Chloride 40 meq 09/30/23 09:00 10/05/23 09:51 Potassium Chloride Er 20 Meq Tab.Er PO 40 meq DAILY ANNA Administration Objective - Vital Signs Vital signs: Vital Signs Temp 97.8 F 10/05/23 08:00 Pulse 106 H 10/05/23 10:00 Resp 17 10/05/23 10:00 BP 101/81 10/05/23 10:00 Pulse Ox 95 10/05/23 10:00 FiO2 50 10/05/23 08:01 Intake & Output 10/04/23 10/05/23 10/05/23 18:59 06:59 18:59 Intake Total 900 94.417 Output Total 1050 255 Balance -150 -160.583 Weight 140.1 kg Intake: Intake, IV Titration 94.417 Amount Diltiazem 125 mg In 94.417 Sodium Chloride 0.9% 100 ml @ 5 MG/HR 5 mls/hr IV .Q24H [facility] [place] Rx#:[id number] Oral 900 Output: Urine 1050 255 Other: Voiding Method Indwelling Catheter Indwelling Catheter - Exam GENERAL: The patient is alert and oriented x3, not in any acute distress. Well developed, well nourished. HEENT: Pupils are round and equally reacting to light. EOMI. No scleral icterus. No conjunctival pallor. Normocephalic, atraumatic. No pharyngeal erythema. No thyromegaly. CARDIOVASCULAR: S1 and S2 present. No murmurs, rubs, or gallops. -PULMONARY: Chest is clear to auscultation, no wheezing , bilateral basal crackles. ABDOMEN: Soft, nontender, nondistended, normoactive bowel sounds. No palpable organomegaly. MUSCULOSKELETAL: No joint swelling or deformity. -EXTREMITIES: No cyanosis, clubbing bilateral pitting leg edema NEUROLOGICAL: Gross neurological examination did not reveal any focal deficits. SKIN: No rashes. no petechiae. - Labs CBC & Chem 7: 10/05/23 05:58 10/05/23 05:58 Labs: Abnormal Lab Results - Last 24 Hours (Table) 10/05/23 10/05/23 10/05/23 Range/Units 00:40 00:47 01:08 WBC (3.8-10.6) k/uL ABG pH 7.28 L (7.35-7.45) ABG pCO2 61 H (35-45) mmHg ABG pO2 66 L (83-108) mmHg ABG HCO3 29 H (21-25) mmol/L ABG Total CO2 31 H (19-24) mmol/L ABG O2 Saturation 89.1 L (94-97) % Sodium (137-145) mmol/L BUN (7-17) mg/dL Creatinine (0.52-1.04) mg/dL Glucose (74-99) mg/dL POC Glucose (mg/dL) 295 H 250 H (70-110) mg/dL 10/05/23 10/05/23 Range/Units 05:58 05:58 WBC 13.8 H (3.8-10.6) k/uL ABG pH (7.35-7.45) ABG pCO2 (35-45) mmHg ABG pO2 (83-108) mmHg ABG HCO3 (21-25) mmol/L ABG Total CO2 (19-24) mmol/L ABG O2 Saturation (94-97) % Sodium 136 L (137-145) mmol/L BUN 46 H (7-17) mg/dL Creatinine 1.31 H (0.52-1.04) mg/dL Glucose 102 H (74-99) mg/dL POC Glucose (mg/dL) (70-110) mg/dL Assessment and Plan Assessment: Paroxysmal Atrial fibrillation with rapid ventricular rate Acute on chronic CHF exacerbation, diastolic dysfunction, ef 55-60% Acute hypoxic respiratory failure secondary to the above Acute UTI, culture reporting E. coli Acute renal failure, on CKD stage III Pulmonary embolism bilaterally status post EKOS, 03/14/2022 Pulmonary hypertension Moderate mitral and tricuspid regurgitation Hypothyroidism Hypertension Hyperlipidemia Generalized weakness and medical debility. Osteoarthritis with history right knee placement in July 2022. Morbid obesity, BMI 46 Plan: Continue with Lasix, iv Continue with Cardizem drip 10 mg per hour and amiodarone 400 mg twice a day and metoprolol 50 mg 3 times a day She's on eliquis 5 mg at home Cardiology and pulmonary consult BiPAP at night. Labs and medication were reviewed.. Continue same treatment. Continue with symptomatic treatment. Resume home medication. Monitor labs and vitals. DVT and GI prophylaxis. Further recommendations as per clinical course of the patient DVT prophylaxis: eliquis GI Prophylaxis: Ppi PT/OT: c Prognosis is guarded
[2023-10-06] MEDS ORDERED: METOPROLOL TARTRATE 25 MG TAB PO STA ×2 (00:23→22:41)
[2023-10-06] MEDS: METOPROLOL TARTRATE 50 MG TAB PO SCH ×2 (00:24→22:42)
[2023-10-06] MEDS: DILTIAZEM ORAL 30 MG TAB PO SCH ×3 (00:28→16:27)
[2023-10-06] MEDS: LORazepam 2 MG/ML INJ IV PRN ×3 (04:53→22:51)
[2023-10-06 05:56] LABS: Basophils % (A) 0 %; Eosinophils # (A) 0.3 k/uL (0-0.7); Eosinophils % (A) 3 %; HCT 40.1 % (34.0-46.0); HGB 12.9 gm/dL (11.4-16.0); Hypochromasia Slight; Lymphocytes # (A) 1.5 k/uL (1.0-4.8); Lymphocytes % (A) 16 %; MCH 32.2 pg (25.0-35.0); MCHC 32.3 g/dL (31.0-37.0); MCV 99.7 fL (80.0-100.0); Mean Platelet Volume 8.2; Monocytes # (A) 0.7 k/uL (0-1.0); Monocytes % (A) 7 %; Neutrophils # (A) 6.8 k/uL (1.3-7.7); Neutrophils % (A) 73 %; Platelet Count 241 k/uL (150-450); RBC 4.02 m/uL (3.80-5.40); RDW 13.9 % (11.5-15.5); WBC 9.4 k/uL (3.8-10.6)
[2023-10-06 06:05] LABS: African American GFR (CKD) 56 (>60 ml/min/1.73 sqM); Anion Gap 7 mmol/L; Blood Urea Nitrogen 49 mg/dL (7-17); Carbon Dioxide 29 mmol/L (22-30); Chloride 99 mmol/L (98-107); Glucose 112 mg/dL (74-99); Non-African American GFR(CKD) 49 (>60 ml/min/1.73 sqM); Potassium 4.5 mmol/L (3.5-5.1); Sodium 135 mmol/L (137-145)
[2023-10-06] MEDS: LEVOTHYROXINE 88 MCG TAB PO SCH (06:34)
--- NOTE | 2023-10-06 07:53 | XR ---
EXAMINATION TYPE: XR chest 1V portable DATE OF EXAM: 10/06/2023 5:56 AM COMPARISON: Chest radiographs from 10/05/2023 TECHNIQUE: XR chest 1V portable Portable AP radiograph of the chest. CLINICAL INDICATION:Female, 73 years old with history of CHF, SOB; FINDINGS: Lungs/Pleura: No evidence of focal consolidation or pneumothorax. Blunting of the costophrenic angles is present. Pulmonary vascularity: Unremarkable. Heart/mediastinum: Cardiomediastinal silhouette is enlarged and stable. Atherosclerotic calcificatio ns are seen in the aorta. Musculoskeletal: No acute osseous pathology. Bilateral shoulder arthropathy. IMPRESSION: Similar CHF exacerbation with small left and [id number] right pleural effusions with pulmonary vascular congestion and cardiomegaly.
[2023-10-06] MEDS: FUROSEMIDE 10 MG/ML 4 ML VIAL IV SCH ×2 (08:14→16:09)
[2023-10-06] MEDS: PANTOPRAZOLE 40 MG/10 ML VIAL IVP SCH (08:20)
[2023-10-06] MEDS: AMIODARONE 200 MG TAB PO SCH ×2 (08:20→21:55)
[2023-10-06] MEDS: MAGNESIUM OXIDE 400 MG TAB PO SCH (08:20)
[2023-10-06] MEDS: APIXABAN 5 MG TAB PO SCH ×2 (08:20→21:55)
[2023-10-06] MEDS: guaiFENesin 600 MG TABLET.ER PO SCH ×2 (08:20→21:54)
[2023-10-06] MEDS: POTASSIUM CHLORIDE ER 20 MEQ TAB.ER PO SCH (08:20)
--- NOTE | 2023-10-06 09:01 | P.PN ---
Subjective This is a pleasant 73 year old female who comes in and is being treated for A. fib RVR as well as acute heart failure. Patient has been taken off IV amiodarone drip today and started on oral amiodarone, IV Lasix has been decreased every 12 hours, remains on IV Cardizem. Echocardiogram shows normal LV function with moderate MR and xmpy-xh-saqzveoc TR and mild pulmonary hypertension. Indwelling catheter is in place she is diuresing well. Today she's been downgraded from the intensive care unit and pending bed placement on the stepdown unit. Most recent chest x-ray today shows bilateral infiltrates which are stable. Sodium 136, BUN 41, creatinine 1.12. 10/03/2023 Patient remains in intensive care unit as a hold for stepdown unit. Remains on IV lasix Q12 overnight patient reports increased difficulty in breathing and states she had a rough night. Heart back up into the 120s. On oral amiodarone and remains on IV cardizem running at 10 mls/hr. Chest xray today reveals bibasilar infiltrates; correlate for atelectasis or pneumonia. Atypical pulm edema could be considered. Mild cardiomegaly. Sodium is 136, BUN 36, creatinine 1.06. BP on the lower side 90/58. 10/04/2023 Patient is still complaining of shortness of breath with some exertional dyspnea, today she was able to walk in the hallway. She is unable to sit in the chair. BiPAP overnight is helping her and she confirms. She still mildly tachypneic and tachycardic with heart rate around 88-108 she still on Cardizem drip at 10 mg per hour. Also she is already Lasix 40 mg twice daily. She has a little was at home 5 mg twice a day. 10/05/2023 Patient was transferred to the intensive care unit today after worsening respiratory status secondary to worsening pulmonary congestion with increased oxygen requirements up to 6 L/m after it was 1-2 L yesterday. She was getting Lasix 40 mg twice daily and the dose was lowered to 20 mg twice daily. Creatinine is slightly up at 1.3 but patient also with evidence of chronic kidney disease stage III. Also she is started yesterday CARDIZEM drip at 5 mg/h and amiodarone 400 mg and metoprolol 50 mg 3 times a day, her heart rate still somewhat elevated between 100 and 115, blood pressure is borderline with systolic 90-100. She was placed also on BiPAP. She is continued on Eliquis 5 mg 10/06/2023 Patient respiratory status got worse yesterday and chest x-ray showing bilateral infiltrates suspicious for pulmonary congestion and CHF Patient was placed on BiPAP overnight and her Lasix dose was increased to 40 mg every 8 hours Also patient on Cardizem drip 5 mg for A. fib and RVR. She still tachypneic, mildly tachycardic this morning. BiPAP setting is 16/12 with 50% Blood pressure 93/61, heart rate is 116. Leukocytosis improved, creatinine better 1.1. Also she is on Eliquis 5 mg Review of systems CONSTITUTIONAL: No fever, no malaise, no fatigue. HEENT: No recent visual problems or hearing problems. Denied any sore throat. CARDIOVASCULAR: No cp,, no palpitations, no syncope. GASTROINTESTINAL: No diarrhea, no nausea, no vomiting, no abdominal pain. Normoactive bowel sounds. NEUROLOGICAL: No headaches, no weakness, no numbness. HEMATOLOGICAL: Denies any bleeding or petechiae. Active Medications Generic Name Dose Route Start Last Admin Trade Name Freq PRN Reason Stop Dose Admin Albuterol Sulfate 2.5 mg 09/29/23 15:31 10/05/23 19:41 Albuterol Nebulized 2.5 Mg/3 Ml INHALATION 2.5 mg RT-QID PRN Administration Shortness Of Breath Or Wheezing Amiodarone HCl 400 mg 10/02/23 10:00 10/06/23 08:20 Amiodarone 200 Mg Tab PO 400 mg BID ANNA Administration Apixaban 5 mg 09/26/23 21:00 10/06/23 08:20 Apixaban 5 Mg Tab PO 5 mg BID ANNA Administration Protocol Atorvastatin Calcium 80 mg 09/26/23 21:00 10/05/23 21:12 Atorvastatin 80 Mg Tab PO 80 mg HS ANNA Administration Calcium Carbonate/Glycine 1,000 mg 09/29/23 13:56 09/29/23 14:07 Calcium Carbonate 500 Mg Chewable PO 1,000 mg TID PRN Administration Heartburn Diltiazem HCl 30 mg 10/04/23 09:00 10/06/23 08:20 Diltiazem Oral 30 Mg Tab PO 30 mg Q8H ANNA Administration Furosemide 40 mg 10/06/23 08:00 10/06/23 08:14 Furosemide 10 Mg/Ml 4 Ml Vial IV 40 mg Q8HR ANNA Administration Guaifenesin 600 mg 09/29/23 17:14 10/06/23 08:20 Guaifenesin 600 Mg Tablet.Er PO 600 mg Q12HR ANNA Administration Diltiazem HCl 125 mg/ Sodium 125 mls @ 5 mls/hr 10/04/23 08:30 10/05/23 03:31 Chloride IV 5 mg/hr .Q24H ANNA 5 mls/hr Administration 5 MG/HR Levothyroxine Sodium 88 mcg 09/27/23 06:30 10/06/23 06:34 Levothyroxine 88 Mcg Tab PO 88 mcg DAILY@0630 ANNA Administration Lorazepam 0.5 mg 10/05/23 00:14 10/06/23 04:53 Lorazepam 2 Mg/Ml Inj IV 0.5 mg Q6HR PRN Administration Anxiety Magnesium Oxide 400 mg 09/27/23 09:00 10/06/23 08:20 Magnesium Oxide 400 Mg Tab PO 400 mg DAILY ANNA Administration Metoprolol Tartrate 50 mg 10/03/23 16:00 10/06/23 00:24 Metoprolol Tartrate 50 Mg Tab PO Not Given TID ANNA Naloxone HCl 0.2 mg 09/26/23 12:07 Naloxone 0.4 Mg/Ml 1 Ml Vial IV Q2M PRN Opioid Reversal Nystatin 1 applic 09/27/23 13:04 Nystatin 100,000 Unit/Gm Powd 15 Gm TOPICAL BID PRN Rash Protocol Ondansetron HCl 4 mg 09/29/23 14:47 10/04/23 12:27 Ondansetron 4 Mg/2 Ml Vial IVP 4 mg Q6HR PRN Administration Nausea And Vomiting Pantoprazole Sodium 40 mg 09/27/23 19:45 10/06/23 08:20 Pantoprazole 40 Mg/10 Ml Vial IVP 40 mg DAILY ANNA Administration Potassium Chloride 40 meq 09/30/23 09:00 10/06/23 08:20 Potassium Chloride Er 20 Meq Tab.Er PO 40 meq DAILY ANNA Administration Objective - Vital Signs Vital signs: Vital Signs Temp 98.0 F 10/06/23 08:00 Pulse 98 10/06/23 08:00 Resp 26 H 10/06/23 08:00 BP 93/67 10/06/23 08:00 Pulse Ox 96 10/06/23 08:00 FiO2 50 10/06/23 07:45 Intake & Output 10/05/23 10/06/23 10/06/23 18:59 06:59 18:59 Intake Total 60 540 Output Total 460 585 45 Balance -400 -45 -45 Weight 141.2 kg Intake: IV 60 Diltiazem 125 mg In 60 Sodium Chloride 0.9% 100 ml @ 5 MG/HR 5 mls/hr IV .Q24H [facility] Rx#:[id number] Oral 540 Output: Urine 460 585 45 Other: Voiding Method Indwelling Catheter Indwelling Catheter - Exam GENERAL: The patient is alert and oriented x3, not in any acute distress. Well developed, well nourished. HEENT: Pupils are round and equally reacting to light. EOMI. No scleral icterus. No conjunctival pallor. Normocephalic, atraumatic. No pharyngeal erythema. No thyromegaly. CARDIOVASCULAR: S1 and S2 present. No murmurs, rubs, or gallops. --PULMONARY: Chest is clear to auscultation, no wheezing , bilateral basal crackles. Tachypneic, with BIPAP machine in place ABDOMEN: Soft, nontender, nondistended, normoactive bowel sounds. No palpable organomegaly. MUSCULOSKELETAL: No joint swelling or deformity. -EXTREMITIES: No cyanosis, clubbing bilateral pitting leg edema NEUROLOGICAL: Gross neurological examination did not reveal any focal deficits. SKIN: No rashes. no petechiae. - Labs CBC & Chem 7: 10/06/23 05:33 10/06/23 05:33 Labs: Abnormal Lab Results - Last 24 Hours (Table) 10/06/23 Range/Units 05:33 Sodium 135 L (137-145) mmol/L BUN 49 H (7-17) mg/dL Creatinine 1.11 H (0.52-1.04) mg/dL Glucose 112 H (74-99) mg/dL Assessment and Plan Assessment: Paroxysmal Atrial fibrillation with rapid ventricular rate Acute on chronic CHF exacerbation, diastolic dysfunction, ef 55-60% Acute hypoxic respiratory failure secondary to the above Acute UTI, culture reporting E. coli Acute renal failure, on CKD stage III Pulmonary embolism bilaterally status post EKOS, 03/14/2022 Pulmonary hypertension Moderate mitral and tricuspid regurgitation Hypothyroidism Hypertension Hyperlipidemia Generalized weakness and medical debility. Osteoarthritis with history right knee placement in July 2022. Morbid obesity, BMI 46 Plan: Continue with Lasix, iv 40 mg every 8 hours Continue with Cardizem drip 5 mg per hour and amiodarone 400 mg twice a day and metoprolol 50 mg 3 times a day She's on eliquis 5 mg at home Cardiology and pulmonary consult BiPAP at night. Labs and medication were reviewed.. Continue same treatment. Continue with symptomatic treatment. Resume home medication. Monitor labs and vitals. DVT and GI prophylaxis. Further recommendations as per clinical course of the patient DVT prophylaxis: eliquis GI Prophylaxis: Ppi PT/OT: hhc Prognosis is guarded
--- NOTE | 2023-10-06 09:27 | P.PN ---
Subjective Progress Note Date: 10/06/23 Principal diagnosis: Shortness of breath. Pulmonary consult dated 09/30/2023. 73-year-old female who presented to the emergency department on September 26, complaining of arrhythmias, and palpitations. The patient does have a history of hypertension, atrial fibrillation, hyperlipidemia, pulmonary embolism, and hypothyroidism. The patient apparently was having some lower extremity edema, shortness of breath, and orthopnea. She also had mild exertional dyspnea. The patient denied any chest pain or chest discomfort. She was seen by the ER physician, and admitted with a diagnosis of atrial fibrillation, CHF, and urinary tract infection. Today, a rapid response was called on this patient, and, R ICU charge nurse, who evaluated the patient, and thought the patient should come down to the intensive care unit, for further monitoring and management. She was given some IV Lasix, and placed on BiPAP, with settings of 16/6, and 100%. She was seen in the intensive care unit, room 255. She was sitting up in bed, with mild respiratory distress, on the BiPAP device. White count was 13.7, hemoglobin 14.5, hematocrit 44.4, and a normal platelet count. Sodium 135, potassium 3.9, chlorides 96, CO2 27, anion gap 12, BUN 37, and creatinine 1.26. N-terminal proBNP, on September 29, was 7020. The patient had chest x-rays on the and on the . Today's chest x-ray shows worsening pulmonary edema. Progress note dated 10/01/2023. 73-year-old female seen again in intensive care unit, room 255. The patient was admitted with a diagnosis of acute hypoxemic respiratory failure, secondary to CHF, as well as atrial fibrillation with RVR. The patient is currently on high flow nasal O2, at 13 L. In addition, the patient uses BiPAP intermittently at 16/6, and 60%. For her atrial fibrillation and RVR, the patient's on Cardizem 15 mg an hour. Clinically, she's starting to feel a bit better. White count 9.4, hemoglobin 14, hematocrit 43.1, and platelet count 223,000. Sodium 136, potassium 4.1, chlorides 96, CO2 29, BUN 37, and creatinine 1.30. Calcium is 9.2. Chest x-ray shows improved vascular congestion. Progress note dated 10/02/2023. 73-year-old female seen in the intensive care unit, room 255. She was admitted initially with a diagnosis of acute hypoxemic respiratory failure secondary to CHF, as well as atrial fibrillation with rapid ventricular response. The patient is currently on room air, with saturations of 91%. Unfortunately, she continues on Cardizem at 10 mg an hour, and amiodarone at 0.5 mg/m. White count 9, hemoglobin 12.8, hematocrit 39.4, within normal platelet count. Sodium 136, potassium 4.3, chloride 96, CO2 34, BUN 41, creatinine 1.12. Glucose is 112. Urine culture is showing evidence of Escherichia coli. Chest x-ray shows improvement in the patient's pulmonary vascular status. Progress note dated 10/03/2023. 73-year-old female seen today in room 255, intensive care unit. She was admitted with a diagnosis of acute hypoxemic respiratory failure, secondary to CHF, as well as atrial fibrillation, with rapid ventricular response. Currently, the patient is on 2 L of oxygen. She's on a Cardizem drip at 10 mg an hour. She's not receiving any IV fluids additionally. The patient that she is BiPAP, intermittently, with settings of 16/6, and 45%. She use BiPAP last night for about an hour and a half. She needs to be using it more frequently. White count 9.4, hemoglobin 12.9, hematocrit 39.2, and platelet count 187,000. Sodium 136, potassium 4.1, chlorides 97, CO2 32, BUN 36, creatinine 1.06. Gluc ose 116. Calcium is 9. Chest x-ray shows improved pulmonary vascular status. Progress note dated 10/04/2023. 73-year-old female seen again in the intensive care unit, room 255. Currently, she is on 2 L of oxygen. She's on a Cardizem drip at 10 mg an hour, to be dropped on the 5 mg an hour. She did use of BiPAP last night, for many hours, and it seemed to help. Her settings include 16/6, and 45%. She currently remains in atrial fibrillation with a rate of 128 bpm. Labs today include a s odium 138, potassium 4.1, chlorides 98, CO2 31, BUN 40, and creatinine 1.08. Glucose 116. Calcium is 9.1. No chest x-ray today. Progress note dated 10/05/2023. 73-year-old female who was sent out of the intensive care unit yesterday, and came back into the intensive care unit, sometime early this morning. She apparently developed worsening shortness of breath, was severely anxious, receive some benzodiazepine, and, required BiPAP therapy. I was called by the nurse who went to the rapid response, and we decided to move the patient back to the intensive care unit. Currently, she is seen in room 261. She is on BiPAP, with settings of 16/6 and 60%. Gases done on 100% show pO2 of 66, pCO2 61, pH is 7.28. The patient is on Cardizem 5 mg an hour. She's not receiving any additional IV fluids. We did order a chest x-ray today, and N-terminal proBNP. Labs today include a white count 13.8, hemoglobin 13, hematocrit 40.7 and a platelet count 229,000. Sodium 136, potassium 4.6, chlorides 99, CO2 28, BUN 46, creatinine 1.31. Calcium is 9. Today's chest x-rays consistent with cardi omegaly, small bilateral pleural effusions, and pulmonary vascular congestion. Progress note dated 10/06/2023. 73-year-old female readmitted to the intensive care unit, for fluid overload/CHF. The patient is currently seen today in room 261. She is currently on BiPAP, with settings of 16/6, and 50%. She's getting Cardizem 5 mg an hour. Her chest x-ray shows fluid overload, so I increased her Lasix up milligrams IV push every 8 hours. When she was taken off BiPAP yesterday for a brief period of time, she became very anxious, and very short of breath, and, desaturated, and was placed back on BiPAP. White count 9.4, hemoglobin 12.9, hematocrit 40.1, within normal platelet count. Sodium 135, potassium 4.5, chlorides 99, CO2 29, BUN 49, and creatinine 1.11. Her N-terminal proBNP from yesterday was nearly 8000. Chest x-rays consistent with CHF, with effusion. Objective - Vital Signs Vital signs: Vital Signs Temp 98.0 F 10/06/23 08:00 Pulse 101 H 11/12/23 09:00 Resp 12 10/06/23 09:00 BP 102/70 10/06/23 09:00 Pulse Ox 96 10/06/23 09:00 FiO2 50 10/06/23 07:45 Intake & Output 10/05/23 10/06/23 10/06/23 18:59 06:59 18:59 Intake Total 60 540 Output Total 460 585 115 Balance -400 -45 -115 Weight 141.2 kg Intake: IV 60 Diltiazem 125 mg In 60 Sodium Chloride 0.9% 100 ml @ 5 MG/HR 5 mls/hr IV .Q24H ANNA Rx#:[id number] Oral 540 Output: Urine 460 585 115 Other: Voiding Method Indwelling Catheter Indwelling Catheter - Exam Currently on BiPAP, at 16/6 and 60%. The patient is very somnolent/lethargic. HEENT examination is grossly unremarkable. Neck supple. Full range of motion. No adenopathy thyromegaly or neck vein distention. Cardiovascular examination reveals an irregular rhythm and rate. S1-S2 normal. No S3 or S4. No discernible murmur noted. Heart rate 101. Heart sounds are distant. Lungs reveal by basilar crackles. Breath sounds are equal bilaterally. No rhonchi. No wheezes. Saturations are 95 %. Abdomen soft bowel sounds are heard. No masses or tenderness. Extremities are intact. No cyanosis or clubbing. Mild lower extremity edema. Skin is without rash or lesion. Neurologic examination is brief but nonfocal. - Labs CBC & Chem 7: 10/06/23 05:33 10/06/23 05:33 Labs: Abnormal Lab Results - Last 24 Hours (Table) 10/06/23 Range/Units 05:33 Sodium 135 L (137-145) mmol/L BUN 49 H (7-17) mg/dL Creatinine 1.11 H (0.52-1.04) mg/dL Glucose 112 H (74-99) mg/dL Assessment and Plan Assessment: Acute hypoxemic respiratory failure, secondary to worsening congestive heart failure. History of chronic atrial fibrillation, with rapid ventricular response. Escherichia coli urinary tract infection. History of hypertension. History of hyperlipidemia. History of pulmonary embolism. History of hypothyroidism. History of osteoarthritis. Plan: Plan dated 09/30/2023. The patient is seen today in the intensive care unit, room 255. She is on BiPAP currently, and I've asked the nurses, to inform respiratory therapy, to wean the patient's FiO2 down, as she improves. The patient has received additional Lasix, 40 mg earlier, and another 40 mg IV push now. The patient was placed on 40 mg of Lasix, IV push every 8 hours. We will continue to follow and make recommendations along the way. Labs, x-rays, and medications are reviewed. Prognosis is guarded. Plan dated 10/01/2023. Patient is seen in the intensive care unit, room 255. Currently, she is on high flow nasal O2 at 13 L. In addition, she is on BiPAP, intermittently at 16/6, and 60%. Because of her atrial fibrillation and RVR, she is currently on Cardizem 50 mg an hour. On auscultation, she has bibasilar crackles, and, she is in atrial fibrillation. She has lower extremity edema as well. Labs, x- rays, medications are reviewed. We will continue to follow and make recommendations along the way. Her prognosis is certainly guarded. Plan dated 10/02/2023. The patient is seen in room 255. Currently, she is on room air, and saturations are 91%. Her nurse will probably place her back on oxygen at 2 L. The patient still having atrial fibrillation with rapid ventricular response, and for that reason, she is on Cardizem at 10 mg an hour, and amiodarone at 0.5 mg/m. Her examination still reveals evidence of bibasilar crackles, and lower extremity edema. Labs, x-rays, and medications are reviewed. The patient's overall prognosis remains guarded. She obviously cannot be the ICU at this time. Plan dated 10/03/2023. The patient is seen today in room 255. She's currently on 2 L. She continues on Cardizem for atrial fibrillation and RVR, 10 mg an hour. She's not getting any additional IV fluids. She didn't use BiPAP last night, for about an hour and a half. Her BiPAP settings are 16/6 and 45%. She may need to use it more than she's currently using it. Labs, x-rays, medications are reviewed. Overall prognosis remains guarded. We will continue to follow the patient, and make recommendations along the way. Plan dated 10/04/2023. The patient is seen today in room 255. She remains on 2 L of oxygen. She's on a Cardizem drip at 10 mg an hour. He'll be turned down to 5 mg an hour. She does continue on IV Lasix. Her lower extremity edema is much improved. Labs, x-rays, and medications are reviewed. We will continue to follow the patient, and make recommendations along the way. No additional comments at this time. H er overall prognosis remains guarded. She did use of BiPAP last night, which is really seem to help. We encourage her to use it nightly, as it will reduce venous return, reduce preload, and help her with her congestive heart failure. Plan dated 10/05/2023. The patient is seen today in room 261. She was in the intensive care unit, for the last few days, and no doubt yesterday. Unfortunately, because of worsening respiratory status and CHF, she was transferred back to the intensive care unit, sometime early this morning. Currently, the patient's on BiPAP, with settings of 16/6 and 60%. Her gases have been reviewed. She continues on Cardizem 5 mg an hour. Labs, x-rays, and medications are reviewed. We will continue to follow and make recommendations along the way. Prognosis is certainly very guarded. Plan dated 10/06/2023. Patient is again seen today in the intensive care unit, room 261. She has ongoing respiratory failure secondary to CHF. In addition, she has atrial fibr illation, with a rapid ventricular response. She continues on BiPAP, at 16/6, and 50%. She also continues on Cardizem, 5 mg an hour. Lasix is increased to 40 mg IV push, every 8 hours. When she was taken off BiPAP yesterday, she did poorly. Labs, x-rays, and medications are reviewed. We will continue to follow the patient, and make recommendations along the way. Her overall prognosis remains very guarded. Time with Patient: Greater than 30
[2023-10-06] MEDS: METOPROLOL TARTRATE 25 MG TAB PO SCH ×2 (09:35→16:10)
--- NOTE | 2023-10-06 12:04 | CONS ---
CONSULTATION HISTORY OF PRESENT ILLNESS: Mariel is a 73-year-old lady, who is admitted to hospital with complex and multiple medical problems including acute exacerbation of chronic diastolic heart failure, atrial fibrillation with poorly controlled ventricular rate, and hypotension. She was initially on the floor when came to ICU. We transferred her out of ICU when she became short of breath suddenly and was placed on a BiPAP and sent back to the ICU. Her chest x-ray showed pulmonary congestion and she is currently in atrial fibrillation with poorly controlled ventricular rate and is also hypotensive, and also her blood pressures have very marginal. She is on diltiazem 5 mg, Lasix, whose dose had been increased by the condenser cleaner, Lopressor 50 t.i.d. the dose is being decreased to 25 t.i.d. and amiodarone 400 b.i.d. PHYSICAL EXAMINATION: VITAL SIGNS: Heart rate is around 100 beats per minute, blood pressure is 109/65; respiratory rate is 18. Chest exam reveals diminished air entry with occasional crackles. Heart exam reveals first and second heart sounds. An S4 is heard. Systolic murmur at the apex. ABDOMEN: Soft. EXTREMITIES: Reveal mild bilateral leg edema. LABORATORY DATA: Shows that the hemoglobin is 12.9. Potassium has 4.5. The patient has a history of bilateral leg edema. Labs show that the hemoglobin is 12.9, potassium is 4.5, creatinine is 1.1. ASSESSMENT: 1. Persistent atrial fibrillation with poorly controlled ventricular rate. 2. History of pulmonary embolism. 3. Acute on chronic diastolic heart. Failure. PLAN: I will add midodrine to see if the blood pressure would improve that phase, so that we can increase the dose of metoprolol on her. MMODL / IJN: [id number] /
[2023-10-06] MEDS: DILTIAZEM 125 MG in SODIUM CHLORIDE 0.9% 100 ML IV SCH (12:07)
[2023-10-06] MEDS: MIDODRINE 5 MG TAB PO SCH ×2 (12:11→16:27)
[2023-10-06] MEDS: ATORVASTATIN 80 MG TAB PO SCH (21:55)
[2023-10-07] MEDS: DILTIAZEM ORAL 30 MG TAB PO SCH ×3 (00:28→16:16)
[2023-10-07] MEDS: FUROSEMIDE 10 MG/ML 4 ML VIAL IV SCH ×3 (00:29→16:16)
[2023-10-07 04:56] LABS: HCT 38.5 % (34.0-46.0); HGB 12.7 gm/dL (11.4-16.0); Hypochromasia Slight; MCH 32.5 pg (25.0-35.0); MCV 98.6 fL (80.0-100.0); Mean Platelet Volume 8.2; Platelet Count 228 k/uL (150-450); RDW 13.9 % (11.5-15.5); WBC 8.4 k/uL (3.8-10.6)
[2023-10-07 04:59] LABS: Potassium 3.7 mmol/L (3.5-5.1)
[2023-10-07 05:00] LABS: African American GFR (CKD) 63 (>60 ml/min/1.73 sqM); Anion Gap 7 mmol/L; Blood Urea Nitrogen 44 mg/dL (7-17); Calcium 8.8 mg/dL (8.4-10.2); Carbon Dioxide 33 mmol/L (22-30); Chloride 97 mmol/L (98-107); Glucose 87 mg/dL (74-99); Non-African American GFR(CKD) 54 (>60 ml/min/1.73 sqM); Sodium 137 mmol/L (137-145)
[2023-10-07] MEDS: MIDODRINE 5 MG TAB PO SCH ×3 (06:33→16:58)
[2023-10-07] MEDS: LEVOTHYROXINE 88 MCG TAB PO SCH (06:33)
--- NOTE | 2023-10-07 08:22 | XR ---
EXAMINATION TYPE: XR chest 1V portable DATE OF EXAM: 10/07/2023 COMPARISON: 10/06/2023 HISTORY: Shortness of breath FINDINGS: There are bilateral pleural effusions with cardiomegaly and bibasilar infiltrate. There is a diffuse interstitial pattern. Atherosclerotic change aorta. Arthropathy of the shoulders. IMPRESSION: 1. Stable x-ray most typical of CHF.
--- NOTE | 2023-10-07 08:57 | P.PN ---
Subjective Progress Note Date: 10/07/23 Pulmonary consult dated 09/30/2023. 73-year-old female who presented to the emergency department on September 26, complaining of arrhythmias, and palpitations. The patient does have a history of hypertension, atrial fibrillation, hyperlipidemia, pulmonary embolism, and hypothyroidism. The patient apparently was having some lower extremity edema, shortness of breath, and orthopnea. She also had mild exertional dyspnea. The patient denied any chest pain or chest discomfort. She was seen by the ER physician, and admitted with a diagnosis of atrial fibrillation, CHF, and urinary tract infection. Today, a rapid response was called on this patient, and, R ICU charge nurse, who evaluated the patient, and thought the patient should come down to the intensive care unit, for further monitoring and management. She was given some IV Lasix, and placed on BiPAP, with settings of 16/6, and 100%. She was seen in the intensive care unit, room 255. She was sitting up in bed, with mild respiratory distress, on the BiPAP device. White count was 13.7, hemoglobin 14.5, hematocrit 44.4, and a normal platelet count. Sodium 135, potassium 3.9, chlorides 96, CO2 27, anion gap 12, BUN 37, and creatinine 1.26. N-terminal proBNP, on September 29, was 7020. The patient had chest x-rays on the and on the . Today's chest x-ray shows worsening pulmonary edema. Progress note dated 10/01/2023. 73-year-old female seen again in intensive care unit, room 255. The patient was admitted with a diagnosis of acute hypoxemic respiratory failure, secondary to CHF, as well as atrial fibrillation with RVR. The patient is currently on high flow nasal O2, at 13 L. In addition, the patient uses BiPAP intermittently at 16/6, and 60%. For her atrial fibrillation and RVR, the patient's on Cardizem 15 mg an hour. Clinically, she's starting to feel a bit better. White count 9.4, hemoglobin 14, hematocrit 43.1, and platelet count 223,000. Sodium 136, potassium 4.1, chlorides 96, CO2 29, BUN 37, and creatinine 1.30. Calcium is 9.2. Chest x-ray shows improved vascular congestion. Progress note dated 10/02/2023. 73-year-old female seen in the intensive care unit, room 255. She was admitted initially with a diagnosis of acute hypoxemic respiratory failure secondary to CHF, as well as atrial fibrillation with rapid ventricular response. The patient is currently on room air, with saturations of 91%. Unfortunately, she continues on Cardizem at 10 mg an hour, and amiodarone at 0.5 mg/m. White count 9, hemoglobin 12.8, hematocrit 39.4, within normal platelet count. Sodium 136, potassium 4.3, chloride 96, CO2 34, BUN 41, creatinine 1.12. Glucose is 112. Urine culture is showing evidence of Escherichia coli. Chest x-ray shows improvement in the patient's pulmonary vascular status. Progress note dated 10/03/2023. 73-year-old female seen today in room 255, intensive care unit. She was admitted with a diagnosis of acute hypoxemic respiratory failure, secondary to CHF, as well as atrial fibrillation, with rapid ventricular response. Currently, the patient is on 2 L of oxygen. She's on a Cardizem drip at 10 mg an hour. She's not receiving any IV fluids additionally. The patient that she is BiPAP, intermittently, with settings of 16/6, and 45%. She use BiPAP last night for about an hour and a half. She needs to be using it more frequently. White count 9.4, hemoglobin 12.9, hematocrit 39.2, and platelet count 187,000. Sodium 136, potassium 4.1, chlorides 97, CO2 32, BUN 36, creatinine 1.06. Glucose 116. Calcium is 9. Chest x-ray shows improved pulmonary vascular status. Progress note dated 10/04/2023. 73-year-old female seen again in the intensive care unit, room 255. Currently, she is on 2 L of oxygen. She's on a Cardizem drip at 10 mg an hour, to be dropped on the 5 mg an hour. She did use of BiPAP last night, for many hours, and it seemed to help. Her settings include 16/6, and 45%. She currently remains in atrial fibrillation with a rate of 128 bpm. Labs today include a sodium 138, potassium 4.1, chlorides 98, CO2 31, BUN 40, and creatinine 1.08. Glucose 116. Calcium is 9.1. No chest x-ray today. Progress note dated 10/05/2023. 73-year-old female who was sent out of the intensive care unit yesterday, and came back into the intensive care unit, sometime early this morning. She apparently developed worsening shortness of breath, was severely anxious, receive some benzodiazepine, and, required BiPAP therapy. I was called by the nurse who went to the rapid response, and we decided to move the patient back to the intensive care unit. Currently, she is seen in room 261. She is on BiPAP, with settings of 16/6 and 60%. Gases done on 100% show pO2 of 66, pCO2 61, pH is 7.28. The patient is on Cardizem 5 mg an hour. She's not receiving any additional IV fluids. We did order a chest x-ray today, and N-terminal proBNP. Labs today include a white count 13.8, hemoglobin 13, hematocrit 40.7 and a platelet count 229,000. Sodium 136, potassium 4.6, chlorides 99, CO2 28, BUN 46, creatinine 1.31. Calcium is 9. Today's chest x-rays consistent with cardiomegaly, small bilateral pleural effusions, and pulmonary vascular congestion. Progress note dated 10/06/2023. 73-year-old female readmitted to the intensive care unit, for fluid overload/CHF. The patient is currently seen today in room 261. She is currently on BiPAP, with settings of 16/6, and 50%. She's getting Cardizem 5 mg an hour. Her chest x-ray shows fluid overload, so I increased her Lasix up milligrams IV push every 8 hours. When she was taken off BiPAP yesterday for a brief period of time, she became very anxious, and very short of breath, and, desaturated, and was placed back on BiPAP. White count 9.4, hemoglobin 12.9, hematocrit 40.1, within normal platelet count. Sodium 135, potassium 4.5, chlorides 99, CO2 29, BUN 49, and creatinine 1.11. Her N-terminal proBNP from yesterday was nearly 8000. Chest x-rays consistent with CHF, with effusion. On 10/07/2023, I'm seeing the patient for a follow-up. The patient remains in the intensive care unit. Overnight she uses a BiPAP at a pressure of 16/6 with an FiO2 of 50% and this morning she is on oxygen at 6 L nasal cannula. I reviewed her chest x-ray. The patient has moderate-sized bilateral pleural effusion which is worse on the right. She remains active fibrillation. She is still somewhat tachycardic with a heart rate ranging between 100-1 20 irregular. No chest pain. Continues to have significant amount of edema lower extremities bilaterally. She has a Louis catheter in place. She is receiving Lasix 40 mg IV every 8 hours and overall fluid balance has been -2.6 L over the past 24 hours. She is currently off the Cardizem drip. Echocardiogram that was done during this current admission showed a preserved LV function, mild pulmonary hypertension, [id number] mitral regurgitation. In terms of her blood work, the patient has a cigar of 8.4, hemoglobin was 12.7 and a platelet count of 228. BUN is at 44 with a creatinine of 1.02. Her proBNP level is 7910. She remains on long-term and coagulation with Eliquis 5 mg by mouth twice a day. This will be placed on hold in anticipation for thoracentesis as the patient obviously has significant amount of pleural effusions bilaterally. She was infected with E. coli in her urine on 09/26/2023 and this was treated appropriately. She continues to be on Synthroid for hypothyroidism. Her thyroid function test during this current admission shows a TSH of 1.8 which is essentially within normal limits. Objective - Vital Signs Vital signs: Vital Signs Temp 98.9 F 10/07/23 08:00 Pulse 109 H 10/07/23 08:00 Resp 28 H 10/07/23 08:00 BP 97/44 10/07/23 08:00 Pulse Ox 96 10/07/23 08:00 FiO2 50 10/07/23 04:00 Intake & Output 10/06/23 10/07/23 10/07/23 18:59 06:59 18:59 Intake Total 600 150 Output Total 1772 1465 145 Balance -1172 -1465 5 Weight 140.3 kg Intake: Oral 600 150 Output: Urine 1772 1465 145 Other: Voiding Method Indwelling Catheter Indwelling Catheter - Exam awake and alert and currently she is on 6 L of oxygen by nasal cannula, no signs of any significant respiratory distress and she is communicating. Head exam was generally normal. There was no scleral icterus or corneal arcus. Mucous membranes were moist. HEENT examination is grossly unremarkable. Neck supple. Full range of motion. No adenopathy thyromegaly positive for JVD is bilaterally Cardiovascular examination reveals an irregular rhythm and rate. S1-S2 normal. No S3 or S4. No discernible murmur noted. Heart rate 101. Heart sounds are distant. Lungs reveal by basilar crackles. Breath sounds are equal bilaterally. The patient has diminished breath sounds along with a lipid percussion consistent with pleural effusion bilaterally to moderate Abdomen soft bowel sounds are heard. No masses or tenderness. Extremities are intact. No cyanosis or clubbing. Mild lower extremity edema. Skin is without rash or lesion. Neurologic examination is brief but nonfocal. - Labs CBC & Chem 7: 10/07/23 04:03 10/07/23 04:03 Labs: Abnormal Lab Results - Last 24 Hours (Table) 10/07/23 Range/Units 04:03 Chloride 97 L (98-107) mmol/L Carbon Dioxide 33 H (22-30) mmol/L BUN 44 H (7-17) mg/dL Assessment and Plan Plan: Acute hypoxemic respiratory failure, secondary to worsening congestive heart failure. The patient is alternating between a BiPAP at a pressure of 16/6 with an FiO2 of 50% overnight and on and off during the day. She is also on 6 L of oxygen by nasal cannula. Hypoxic respiratory failure is essentially related to CHF with bilateral pleural effusions. The patient is currently on diuretics. She is in negative fluid balance. She is responding nicely to diuretics. She has a preserved LV function. ProBNP is quite elevated. She has bilateral JVDs. She has positive edema lower extremities and she has also moderate-sized bilateral pleural effusions. History of chronic atrial fibrillation, with rapid ventricular response. The patient is currently on anticoagulation with Eliquis. Patient is also on metoprolol 50 mg 3 times a day. Her thyroid function tests are essentially within normal limits. Escherichia coli urinary tract infection, treated History of hypertension. History of hyperlipidemia. History of pulmonary embolism. History of hypothyroidism. History of osteoarthritis. Plan: Perform ultrasound the chest and assess the size of pleural effusion and decide if thoracentesis is worthwhile Continue diuretics with Lasix 40 mg IV every 8 hours Monitor fluid balance and electrolytes Monitor renal function Titrate FiO2 to maintain saturation above 90%, current pulse ox is 97% We will hold anticoagulation if thoracentesis to be done The patient will be kept in the intensive care unit for today.
[2023-10-07] MEDS: ALBUTEROL NEBULIZED 2.5 MG/3 ML INHALATION PRN ×3 (09:07→20:01)
--- NOTE | 2023-10-07 09:14 | P.PN ---
Subjective Progress Note Date: 10/07/23 The patient is a 73-year-old female who follows in the office with Dr. Sylvester. She presented to the hospital with shortness of breath and palpitations. She was found to be in A. fib with RVR as well as diastolic heart failure. The patient has had poorly controlled heart rates throughout her admission with secondary hypotension. She was recently started on midodrine. Echocardiogram reveals preserved systolic function with moderate MR and mild to moderate TR. Patient was interviewed and examined resting in bed. She states she does occasionally feel palpitations. She currently denies any chest pain or chest pressure. GENERAL: Well-appearing, well-nourished obese female in no acute distress. NECK: Supple without JVD or thyromegaly. LUNGS: Breath sounds diminished to auscultation bilaterally. Respiration equal and unlabored. No wheezes, rales or rhonchi. HEART: Irregular rate and rhythm without murmurs, rubs or gallops. S1 and S2 heard. EXTREMITIES: Normal range of motion, +3 pitting bilateral lower extremity edema. No clubbing or cyanosis. TELEMETRY: Persistent atrial fibrillation. Heart rates ranging from the low 100s to 130s LABS: WBC 8.4, hemoglobin 12.7, hematocrit 30.5, platelet 228, sodium 137, potassium 3.7, BUN 44, creatinine 1.02 IMPRESSION: A. fib with RVR Secondary hypotension Diastolic heart failure History of pulmonary emboli PLAN: RICO and cardioversion discussed with Dr. Montague He was to proceed with a chest x-ray and assessment of her pleural effusions and likely thoracentesis Hopefully this resulted in improvement in her heart rate control Reassessment for need for electrical cardioversion thereafter Further recommendations to be based upon clinical course I am dictating on behalf of Dr Jani Ayala's history/physical and assessment/plan. Objective - Vital Signs Vital signs: Vital Signs Temp 98.9 F 10/07/23 08:00 Pulse 109 H 10/07/23 08:00 Resp 28 H 10/07/23 08:00 BP 97/44 10/07/23 08:00 Pulse Ox 96 10/07/23 08:00 FiO2 50 10/07/23 04:00 Intake & Output 10/06/23 10/07/23 10/07/23 18:59 06:59 18:59 Intake Total 600 150 Output Total 1772 1465 145 Balance -1172 -1465 5 Weight 140.3 kg Intake: Oral 600 150 Output: Urine 3570 1465 145 Other: Voiding Method Indwelling Catheter Indwelling Catheter - Labs CBC & Chem 7: 10/07/23 04:03 10/07/23 04:03 Labs: Abnormal Lab Results - Last 24 Hours (Table) 10/07/23 Range/Units 04:03 Chloride 97 L (98-107) mmol/L Carbon Dioxide 33 H (22-30) mmol/L BUN 44 H (7-17) mg/dL
[2023-10-07] MEDS: MAGNESIUM OXIDE 400 MG TAB PO SCH (09:43)
[2023-10-07] MEDS: AMIODARONE 200 MG TAB PO SCH ×2 (09:43→21:35)
[2023-10-07] MEDS: guaiFENesin 600 MG TABLET.ER PO SCH ×2 (09:43→21:35)
[2023-10-07] MEDS: POTASSIUM CHLORIDE ER 20 MEQ TAB.ER PO SCH (09:44)
[2023-10-07] MEDS: METOPROLOL TARTRATE 50 MG TAB PO SCH ×3 (09:44→21:35)
[2023-10-07] MEDS: APIXABAN 5 MG TAB PO SCH ×2 (09:46→21:34)
[2023-10-07] MEDS: PANTOPRAZOLE 40 MG/10 ML VIAL IVP SCH (09:56)
[2023-10-07] MEDS: DILTIAZEM 125 MG in SODIUM CHLORIDE 0.9% 100 ML IV SCH (10:01)
--- NOTE | 2023-10-07 10:01 | US ---
EXAMINATION TYPE: US chest DATE OF EXAM: 10/07/2023 COMPARISON: NONE CLINICAL INDICATION: Female, 73 years old with history of bilat plural effusions - possible thoracent .; bilateral pleural effusions TECHNIQUE: Targeted ultrasound of the posterior lower bilateral hemithoraces EXAM MEASUREMENTS: Right Pleural Effusion pocket size: 6.8 cm Right skin surface to fluid distance: 4.4 cm Left Pleural Effusion pocket size: 7.5 cm - lung noted anteriorly Left skin surface to fluid distance: 4.0 cm Right side marked for possible thoracentesis outside the dept. Left side marked for possible thoracentesis outside the dept. Pulmonologists are able to review the images in the patient?s EMR. IMPRESSIONS: Bilateral pleural effusion.
--- NOTE | 2023-10-07 14:30 | P.PN ---
Subjective Progress Note Date: 10/07/23 H&P Date: 09/27/23 Chief Complaint: Palpitations, dyspnea This is a 73-year-old female with past medical history significant for atrial fibrillation, PE, status post EKOS 02/2022, hypertension, hypothyroidism admitted with atrial fibrillation with RVR and multiple other medical issues.Evaluated and treated by cardiology. Presented to the hospital with complaints of heart palpitations, hypertension , shortness of breath 1 week.Positive orthopnea , reports sleeping sitting up in a recliner as well as living downstairs in her home to avoid climbing stairs. Cardizem drip initiated, rate improving. Cardiology consult in place. Troponins negative 3 , proBNP pending .EKG rate atrial fibrillation with RVR heart rate 132 . Echo reported normal LV f unction, mild pulmonary hypertension, moderate mitral and moderate tricuspid regurgitation .Chest x-ray no acute pulmonary process. UA reports positive nitrates, many bacteria, small leukocytes, urine culture pending. 09/30/2023 recently placed on 2 L nasal cannula, then increased to 4 L, ebony [place] O2 sats in the low 90s .complains of mild increased shortness of breath, which she reports started actually during the night. She has been on Lasix IV push every 12 hours, 24-hour I&O reflecting a negative fluid balance. Renal function mildly worsened, BUN 37, creatinine 1.26. Sodium 125 .Maintained on Rocephin for acute UTI. Afebrile, WBC 13.7. Blood sugars controlled. 10/01/23 yesterday developed worsening pulmonary edema, transfer to ICU. Chest x-ray at that time reported worsening of large perihilar consolidation noted greater on the right, pulmonary edema versus diffuse pneumonia. Received additional Lasix IV push, frequency increased yesterday diuresed well with 24-hour I&O reflecting a negative fluid balance. Maintained on BiPAP throughout the night, placed on 13 L nasal cannula to facilitate patient's diet intake this morning. Chest x-ray repeated this morning reporting improving bilateral areas of consolidation. Telemetry sinus rhythm, continues on Cardizem drip, tachycardic with heart rates in the 130s to 140s. Denies chest pain, palpitations. Afebrile, normal WBC. BUN 37, creatinine 1.30. Blood sugars controlled. 10/07/23 used BiPAP overnight, currently maintaining O2 sats in the 90s on 6 L nasal cannula. Chest x-ray reported bilateral pleural effusions, chest ultrasound reported right pleural effusion 6.8 cm, left pleural effusion 7.5 cm with both marked for possible thoracentesis. Diuresing on Lasix IV push with 24-hour I&O reflecting a negative fluid balance, but continues to have significant lower extremity edema. Telemetry atrial fibrillation with heart rates up to 120s. Reports palpitations, no chest pain. Evaluated by ca rdiology, discussing RICO with cardioversion. Objective - Vital Signs Vital signs: Vital Signs Temp 97.8 F 10/07/23 12:00 Pulse 109 H 10/07/23 13:00 Resp 37 H 10/07/23 13:00 BP 89/62 10/07/23 13:00 Pulse Ox 93 L 10/07/23 13:00 FiO2 50 10/07/23 04:00 Intake & Output 10/06/23 10/07/23 10/07/23 18:59 06:59 18:59 Intake Total 600 300 Output Total 1772 1465 945 Balance -1172 -1465 -645 Weight 140.3 kg Intake: IV 0 Diltiazem 125 mg In 0 Sodium Chloride 0.9% 100 ml @ 5 MG/HR 5 mls/hr IV .Q24H [facility] Rx#:[id number] Oral 600 300 Output: Urine 1772 1465 945 Other: Voiding Method Indwelling Catheter Indwelling Catheter Indwelling Catheter - Exam PHYSICAL EXAM: VITAL SIGNS: [As above] GENERAL: Alert and oriented 3,Sitting up in bed, anxious, teary-eyed HEENT: Normocephalic, Conjunctivae normal. eyes normal, MMM. NECK: Supple, No JVD. CARDIOVASCULAR: S1, S2. irregular. No murmur. RESPIRATION: Unlabored, equal air entry, bibasilar crackles ABDOMEN: Soft, nontender. Positive bowel sounds. LEGS:Bilateral lower extremity edema. NERVOUS SYSTEM: Cranial N 2-12 grossly normal.No focal deficits. Strength and sensation grossly intact. Skin: Warm and dry, no rash - Labs CBC & Chem 7: 10/07/23 04:03 10/07/23 04:03 Labs: Abnormal Lab Results - Last 24 Hours (Table) 10/07/23 Range/Units 04:03 Chloride 97 L (98-107) mmol/L Carbon Dioxide 33 H (22-30) mmol/L BUN 44 H (7-17) mg/dL Assessment and Plan Assessment: Paroxysmal Atrial fibrillation with rapid ventricular rate Secondary Hypotension Acute on chronic CHF exacerbation, diastolic dysfunction, ef 55-60% Acute hypoxic respiratory failure secondary to the above Acute UTI, culture reporting E. coli Acute renal failure Pulmonary embolism bilaterally status post EKOS, 03/14/2022 Pulmonary hypertension Moderate mitral and tricuspid regurgitation Hypothyroidism Hypertension, history of Hyperlipidemia Osteoarthritis with history right knee placement in July 2022. Morbid obesity, BMI 46 Plan: Continue on current medication regime ,monitoring and symptomatic treatment. IV push diuretics, potential thoracentesis. Cardiology recommending RICO and cardioversion. Close monitoring of renal function, electrolytes with repeat labs ordered for a.m. Prognosis guarded given multiple complex medical issues. The impression and plan of care has been dictated as directed. : I performed a history and examination of this patient, discussed the same with the dictator. I agree with the dictator's note ,documented as a scribe. Any additional findings or plans will be noted.
[2023-10-07] MEDS: ATORVASTATIN 80 MG TAB PO SCH (21:35)
[2023-10-07] MEDS: LORazepam 2 MG/ML INJ IV PRN (23:31)
[2023-10-08] MEDS: DILTIAZEM ORAL 30 MG TAB PO SCH ×3 (00:01→16:49)
[2023-10-08] MEDS: FUROSEMIDE 10 MG/ML 4 ML VIAL IV SCH ×4 (00:35→23:11)
[2023-10-08 04:30] LABS: HCT 41.2 % (34.0-46.0); HGB 13.1 gm/dL (11.4-16.0); Hypochromasia Slight; MCH 31.7 pg (25.0-35.0); MCHC 31.8 g/dL (31.0-37.0); MCV 99.7 fL (80.0-100.0); Macrocytosis Slight; Mean Platelet Volume 8.3; Platelet Count 257 k/uL (150-450); RBC 4.13 m/uL (3.80-5.40); RDW 13.9 % (11.5-15.5); WBC 9.4 k/uL (3.8-10.6)
[2023-10-08 04:36] LABS: African American GFR (CKD) 62 (>60 ml/min/1.73 sqM); Anion Gap 8 mmol/L; Blood Urea Nitrogen 41 mg/dL (7-17); Calcium 8.8 mg/dL (8.4-10.2); Carbon Dioxide 34 mmol/L (22-30); Chloride 96 mmol/L (98-107); Glucose 92 mg/dL (74-99); Non-African American GFR(CKD) 53 (>60 ml/min/1.73 sqM); Potassium 3.7 mmol/L (3.5-5.1); Sodium 138 mmol/L (137-145)
[2023-10-08] MEDS: LEVOTHYROXINE 88 MCG TAB PO SCH (06:41)
[2023-10-08] MEDS: MIDODRINE 5 MG TAB PO SCH ×3 (06:41→16:49)
--- NOTE | 2023-10-08 07:18 | XR ---
EXAMINATION TYPE: XR chest 1V portable DATE OF EXAM: 10/08/2023 COMPARISON: 10/07/2023 HISTORY: Shortness of breath TECHNIQUE: Single frontal view of the chest is obtained. FINDINGS: There are bilateral pleural effusions with cardiomegaly and bibasilar infiltrate. There is a diffuse interstitial pattern. Atherosclerotic change aorta. Arthropathy of the shoulders. IMPRESSION: Stable bilateral infiltrate and pleural effusion. Mild improvement of the interstitium s uggestive of improving venous congestion.
--- NOTE | 2023-10-08 07:53 | P.PN ---
Subjective Progress Note Date: 10/08/23 Pulmonary consult dated 09/30/2023. 73-year-old female who presented to the emergency department on September 26, complaining of arrhythmias, and palpitations. The patient does have a history of hypertension, atrial fibrillation, hyperlipidemia, pulmonary embolism, and hypothyroidism. The patient apparently was having some lower extremity edema, shortness of breath, and orthopnea. She also had mild exertional dyspnea. The patient denied any chest pain or chest discomfort. She was seen by the ER physician, and admitted with a diagnosis of atrial fibrillation, CHF, and urinary tract infection. Today, a rapid response was called on this patient, and, R ICU charge nurse, who evaluated the patient, and thought the patient should come down to the intensive care unit, for further monitoring and management. She was given some IV Lasix, and placed on BiPAP, with settings of 16/6, and 100%. She was seen in the intensive care unit, room 255. She was sitting up in bed, with mild respiratory distress, on the BiPAP device. White count was 13.7, hemoglobin 14.5, hematocrit 44.4, and a normal platelet count. Sodium 135, potassium 3.9, chlorides 96, CO2 27, anion gap 12, BUN 37, and creatinine 1.26. N-terminal proBNP, on September 29, was 7020. The patient had chest x-rays on the and on the . Today's chest x-ray shows worsening pulmonary edema. Progress note dated 10/01/2023. 73-year-old female seen again in intensive care unit, room 255. The patient was admitted with a diagnosis of acute hypoxemic respiratory failure, secondary to CHF, as well as atrial fibrillation with RVR. The patient is currently on high flow nasal O2, at 13 L. In addition, the patient uses BiPAP intermittently at 16/6, and 60%. For her atrial fibrillation and RVR, the patient's on Cardizem 15 mg an hour. Clinically, she's starting to feel a bit better. White count 9.4, hemoglobin 14, hematocrit 43.1, and platelet count 223,000. Sodium 136, potassium 4.1, chlorides 96, CO2 29, BUN 37, and creatinine 1.30. Calcium is 9.2. Chest x-ray shows improved vascular congestion. Progress note dated 10/02/2023. 73-year-old female seen in the intensive care unit, room 255. She was admitted initially with a diagnosis of acute hypoxemic respiratory failure secondary to CHF, as well as atrial fibrillation with rapid ventricular response. The patient is currently on room air, with saturations of 91%. Unfortunately, she continues on Cardizem at 10 mg an hour, and amiodarone at 0.5 mg/m. White count 9, hemoglobin 12.8, hematocrit 39.4, within normal platelet count. Sodium 136, potassium 4.3, chloride 96, CO2 34, BUN 41, creatinine 1.12. Glucose is 112. Urine culture is showing evidence of Escherichia coli. Chest x-ray shows improvement in the patient's pulmonary vascular status. Progress note dated 10/03/2023. 73-year-old female seen today in room 255, intensive care unit. She was admitted with a diagnosis of acute hypoxemic respiratory failure, secondary to CHF, as well as atrial fibrillation, with rapid ventricular response. Currently, the patient is on 2 L of oxygen. She's on a Cardizem drip at 10 mg an hour. She's not receiving any IV fluids additionally. The patient that she is BiPAP, intermittently, with settings of 16/6, and 45%. She use BiPAP last night for about an hour and a half. She needs to be using it more frequently. White count 9.4, hemoglobin 12.9, hematocrit 39.2, and platelet count 187,000. Sodium 136, potassium 4.1, chlorides 97, CO2 32, BUN 36, creatinine 1.06. Glucose 116. Calcium is 9. Chest x-ray shows improved pulmonary vascular status. Progress note dated 10/04/2023. 73-year-old female seen again in the intensive care unit, room 255. Currently, she is on 2 L of oxygen. She's on a Cardizem drip at 10 mg an hour, to be dropped on the 5 mg an hour. She did use of BiPAP last night, for many hours, and it seemed to help. Her settings include 16/6, and 45%. She currently remains in atrial fibrillation with a rate of 128 bpm. Labs today include a sodium 138, potassium 4.1, chlorides 98, CO2 31, BUN 40, and creatinine 1.08. Glucose 116. Calcium is 9.1. No chest x-ray today. Progress note dated 10/05/2023. 73-year-old female who was sent out of the intensive care unit yesterday, and came back into the intensive care unit, sometime early this morning. She apparently developed worsening shortness of breath, was severely anxious, receive some benzodiazepine, and, required BiPAP therapy. I was called by the nurse who went to the rapid response, and we decided to move the patient back to the intensive care unit. Currently, she is seen in room 261. She is on BiPAP, with settings of 16/6 and 60%. Gases done on 100% show pO2 of 66, pCO2 61, pH is 7.28. The patient is on Cardizem 5 mg an hour. She's not receiving any additional IV fluids. We did order a chest x-ray today, and N-terminal proBNP. Labs today include a white count 13.8, hemoglobin 13, hematocrit 40.7 and a platelet count 229,000. Sodium 136, potassium 4.6, chlorides 99, CO2 28, BUN 46, creatinine 1.31. Calcium is 9. Today's chest x-rays consistent with cardiomegaly, small bilateral pleural effusions, and pulmonary vascular congestion. Progress note dated 10/06/2023. 73-year-old female readmitted to the intensive care unit, for fluid overload/CHF. The patient is currently seen today in room 261. She is currently on BiPAP, with settings of 16/6, and 50%. She's getting Cardizem 5 mg an hour. Her chest x-ray shows fluid overload, so I increased her Lasix up milligrams IV push every 8 hours. When she was taken off BiPAP yesterday for a brief period of time, she became very anxious, and very short of breath, and, desaturated, and was placed back on BiPAP. White count 9.4, hemoglobin 12.9, hematocrit 40.1, within normal platelet count. Sodium 135, potassium 4.5, chlorides 99, CO2 29, BUN 49, and creatinine 1.11. Her N-terminal proBNP from yesterday was nearly 8000. Chest x-rays consistent with CHF, with effusion. On 10/07/2023, I'm seeing the patient for a follow-up. The patient remains in the intensive care unit. Overnight she uses a BiPAP at a pressure of 16/6 with an FiO2 of 50% and this morning she is on oxygen at 6 L nasal cannula. I reviewed her chest x-ray. The patient has moderate-sized bilateral pleural effusion which is worse on the right. She remains active fibrillation. She is still somewhat tachycardic with a heart rate ranging between 100-1 20 irregular. No chest pain. Continues to have significant amount of edema lower extremities bilaterally. She has a Louis catheter in place. She is receiving Lasix 40 mg IV every 8 hours and overall fluid balance has been -2.6 L over the past 24 hours. She is currently off the Cardizem drip. Echocardiogram that was done during this current admission showed a preserved LV function, mild pulmonary hypertension, [id number] mitral regurgitation. In terms of her blood work, the patient has a cigar of 8.4, hemoglobin was 12.7 and a platelet count of 228. BUN is at 44 with a creatinine of 1.02. Her proBNP level is 7910. She remains on long-term and coagulation with Eliquis 5 mg by mouth twice a day. This will be placed on hold in anticipation for thoracentesis as the patient obviously has significant amount of pleural effusions bilaterally. She was infected with E. coli in her urine on 09/26/2023 and this was treated appropriately. She continues to be on Synthroid for hypothyroidism. Her thyroid function test during this current admission shows a TSH of 1.8 which is essentially within normal limits. 10/08/2023, the patient is comfortable on oxygen at 4 L nasal cannula. Overnight, she uses the BiPAP for a total of 4 hours. She is making good urine output. She remains on IV Lasix at a dose of 40 mg every 8 hours. Fluid balance over the past 24 hours has been in the order of -2.7 L. No significant chest pain. Shortness of breath is gradually improving. The chest x-ray shows moderate-sized bilateral pleural effusions an ultrasound of the chest confirmed the findings. In fact, the patient has a 6.8 cm pocket on the right and a 7.5 cm on the left. The plan was to proceed with a thoracentesis today. The anticoagulation is currently on hold. The patient remains in atrial fibrillation. Cardiology is also planning to undergo a cardioversion at the later stage. Sodium level is at 138, potassium levels at 3.7, bicarb is 34, BUN is at 41 and a creatinine is 1.03. Potassium levels at 3.7. The risk of 9.4 with a hemoglobin of 13.1. Objective - Vital Signs Vital signs: Vital Signs Temp 97.7 F 10/08/23 04:00 Pulse 109 H 10/08/23 07:00 Resp 12 10/08/23 07:00 BP 98/70 10/08/23 07:00 Pulse Ox 97 10/08/23 07:00 FiO2 50 10/08/23 00:00 Intake & Output 10/07/23 10/08/23 10/08/23 18:59 06:59 18:59 Intake Total 575 0 Output Total 1605 1730 125 Balance -1030 -1730 -125 Weight 137.9 kg Intake: IV 0 Diltiazem 125 mg In 0 Sodium Chloride 0.9% 100 ml @ 5 MG/HR 5 mls/hr IV .Q24H [facility] Rx#:[id number] Oral 575 0 Output: Urine 1605 1730 125 Other: Voiding Method Indwelling Catheter Indwelling Catheter - Exam awake and alert and currently she is on 4 L of oxygen by nasal cannula, no signs of any significant respiratory distress and she is communicating. Head exam was generally normal. There was no scleral icterus or corneal arcus. Mucous membranes were moist. HEENT examination is grossly unremarkable. Neck supple. Full range of motion. No adenopathy thyromegaly positive for JVD is bilaterally Cardiovascular examination reveals an irregular rhythm and rate. S1-S2 normal. No S3 or S4. No discernible murmur noted. Heart sounds are distant. Lungs reveal by basilar crackles. Breath sounds are equal bilaterally. The patient has diminished breath sounds along with a lipid percussion consistent with pleural effusion bilaterally to moderate Abdomen soft bowel sounds are heard. No masses or tenderness. Extremities are intact. No cyanosis or clubbing. Mild lower extremity edema. Skin is without rash or lesion. Neurologic examination is brief but nonfocal. - Labs CBC & Chem 7: 10/08/23 03:34 10/08/23 03:34 Labs: Abnormal Lab Results - Last 24 Hours (Table) 10/08/23 Range/Units 03:34 Chloride 96 L (98-107) mmol/L Carbon Dioxide 34 H (22-30) mmol/L BUN 41 H (7-17) mg/dL Assessment and Plan Plan: Acute hypoxemic respiratory failure, secondary to worsening congestive heart noah conrado. The patient is alternating between a BiPAP at a pressure of 16/6 with an FiO2 of 50% overnight and on and off during the day. She is also on 4 L of oxygen by nasal cannula. Hypoxic respiratory failure is essentially related to CHF with bilateral pleural effusions. The patient is currently on diuretics. She is in negative fluid balance. She is responding nicely to diuretics. She has a preserved LV function. ProBNP is quite elevated. She has bilateral JVDs. She has positive edema lower extremities and she has also moderate-sized bilateral pleural effusions. History of chronic atrial fibrillation, with rapid ventricular response. The patient is currently on anticoagulation with Eliquis. Patient is also on metoprolol 50 mg 3 times a day. Her thyroid function tests are essentially within normal limits. Escherichia coli urinary tract infection, treated History of hypertension. History of hyperlipidemia. History of pulmonary embolism. History of hypothyroidism. History of osteoarthritis. Plan: We'll proceed with a right-sided thoracentesis Continue diuretics with Lasix 40 mg IV every 8 hours Monitor fluid balance and electrolytes, the patient is a negative fluid balance Monitor renal function Possible cardioversion at the later stage as the patient is still nature fibrillation Titrate FiO2 to maintain saturation above 90%, current pulse ox is 97% We will hold anticoagulation if thoracentesis to be done The patient will be kept in the intensive care unit for today.
--- NOTE | 2023-10-08 08:01 | P.PCN ---
Date of Procedure: 10/08/23 Preoperative Diagnosis: Pleural effusion, right Postoperative Diagnosis: Pleural effusion, right Procedure(s) Performed: Thoracentesis, right Anesthesia: local Surgeon: Glenn Montague Condition: critical Disposition: ICU Operative Findings: A time out was performed and the chest x-ray was reviewed, the appropriate side was confirmed and marked. My hands were washed immediately prior to the procedure. I wore a surgical cap, mask with protective eyewear, sterile gown and sterile gloves throughout the procedure. The patient was prepped and draped in a sterile manner using chlorhexidine scrub after the appropriate level was percussed and confirmed by ultrasound. 1% lidocaine was used to anesthesize the skin, subcutaneous tissue, superior aspect of the rib periosteum and parietal pleura. A finder needle was then introduced over the superior aspect of the rib to locate the pleural fluid; 2colored fluid was aspirated at a depth of approximately 2 cm. A 10-blade scalpel was used to rio the skin at the insertion site. The [id number]-[id number] needle was then introduced through the skin incision into the pleural space using negative aspiration pressure and the red colometric indicator to confirm appropriate positioning of the needle. The thoracentesis catheter was then threaded without difficulty. 1200 ml of turbid colored fluid was removed without difficulty. The catheter was then removed. No immediate complications were noted during the procedure. A post-procedure chest x-ray is pending at the time of this note. The fluid will be sent for studies. Estimated blood loss is 0cc
[2023-10-08] MEDS: APIXABAN 5 MG TAB PO SCH (08:20)
[2023-10-08] MEDS: DILTIAZEM 125 MG in SODIUM CHLORIDE 0.9% 100 ML IV SCH (08:20)
--- NOTE | 2023-10-08 08:30 | XR ---
EXAMINATION TYPE: XR chest 1V portable DATE OF EXAM: 10/08/2023 COMPARISON: 10/08/2023 HISTORY: Post right thoracentesis TECHNIQUE: Single frontal view of the chest is obtained. FINDINGS: There is no sizable pleural effusion on the right. Bilateral consolidation and small left pleural effusion. No pneumothorax. Heart size stable. Atherosclerotic change aorta. Bilateral shoulde r arthropathy. Hypertrophic and degenerative changes spine. IMPRESSION: 1. No pneumothorax postthoracentesis. 2. Bilateral lower lobe infiltrate and small left effusion
--- NOTE | 2023-10-08 09:14 | P.PN ---
Subjective Progress Note Date: 10/08/23 The patient is a 73-year-old female who follows in the office with Dr. Sylvester. She presented to the hospital with shortness of breath and palpitations. She was found to be in A. fib with RVR as well as diastolic heart failure. The patient has had poorly controlled heart rates throughout her admission with secondary hypotension. She was recently started on midodrine. Echocardiogram reveals preserved systolic function with moderate MR and mild to moderate TR. The patient underwent right-sided thoracentesis where 1.2 L was removed at bedside. Pulmonology plans on removing left pleural effusion tomorrow morning Patient was interviewed and examined resting in bed. She states her breathing is better since her thoracentesis. No chest pain or chest pressure. GENERAL: Well-appearing, well-nourished obese female in no acute distress. NECK: Supple without JVD or thyromegaly. LUNGS: Breath sounds diminished to auscultation bilaterally. Respiration equal and unlabored. No wheezes, rales or rhonchi. HEART: Irregular rate and rhythm without murmurs, rubs or gallops. S1 and S2 heard. EXTREMITIES: Normal range of motion, +3 pitting bilateral lower extremity edema. No clubbing or cyanosis. TELEMETRY: Persistent atrial fibrillation. Heart rates ranging from the low 100s to 130s LABS: WBC 9.4, hemoglobin 13.1, hematocrit 41.2, platelet 257, sodium 137, potassium 3.7, BUN 41, creatinine 1.03 IMPRESSION: A. fib with RVR Secondary hypotension Diastolic heart failure History of pulmonary emboli Bilateral pleural effusions PLAN Eliquis currently on hold for thoracentesis If patient remains in atrial fibrillation thereafter, we will then proceed with [place] and cardioversion Continue supportive treatment Further recommendations to be based upon clinical course I am dictating on behalf of Dr Jani Ayala's history/physical and assessment/plan. Objective - Vital Signs Vital signs: Vital Signs Temp 97.7 F 10/08/23 04:00 Pulse 109 H 10/08/23 07:00 Resp 12 10/08/23 07:00 BP 98/70 10/08/23 07:00 Pulse Ox 96 10/08/23 07:49 FiO2 50 10/08/23 00:00 Intake & Output 11/13/23 11/14/23 11/14/23 18:59 06:59 18:59 Intake Total 575 0 Output Total 1605 1730 125 Balance -1030 -1730 -125 Weight 137.9 kg Intake: IV 0 Diltiazem 125 mg In 0 Sodium Chloride 0.9% 100 ml @ 5 MG/HR 5 mls/hr IV .Q24H [facility] Rx#:[id number] Oral 575 0 Output: Urine 1605 1730 125 Other: Voiding Method Indwelling Catheter Indwelling Catheter - Labs CBC & Chem 7: 10/08/23 03:34 10/08/23 03:34 Labs: Abnormal Lab Results - Last 24 Hours (Table) 10/08/23 Range/Units 03:34 Chloride 96 L (98-107) mmol/L Carbon Dioxide 34 H (22-30) mmol/L BUN 41 H (7-17) mg/dL
[2023-10-08] MEDS: METOPROLOL TARTRATE 50 MG TAB PO SCH ×4 (09:18→21:17)
[2023-10-08] MEDS: PANTOPRAZOLE 40 MG/10 ML VIAL IVP SCH (09:18)
[2023-10-08] MEDS: AMIODARONE 200 MG TAB PO SCH ×2 (09:18→21:17)
[2023-10-08] MEDS: POTASSIUM CHLORIDE ER 20 MEQ TAB.ER PO SCH (09:18)
[2023-10-08] MEDS: MAGNESIUM OXIDE 400 MG TAB PO SCH (09:19)
[2023-10-08] MEDS: guaiFENesin 600 MG TABLET.ER PO SCH ×2 (09:19→21:17)
[2023-10-08] MEDS: ALBUTEROL NEBULIZED 2.5 MG/3 ML INHALATION PRN ×3 (11:29→19:49)
[2023-10-08 17:29] LABS: Appearance,BF Clear (Clear)
[2023-10-08 21:04] LABS: Glucose, BF Source Pleural Fluid; Glucose, Body Fluid 107 mg/dL; LDH, Body Fluid Source Pleural Fluid; T. Protein, Body Fluid Source Pleural Fluid; Total Protein, Body Fluid 1940 mg/dL
[2023-10-08] MEDS: ATORVASTATIN 80 MG TAB PO SCH (21:17)
[2023-10-08] MEDS: LORazepam 2 MG/ML INJ IV PRN (23:11)
[2023-10-09] MEDS: DILTIAZEM ORAL 30 MG TAB PO SCH ×3 (00:15→16:57)
[2023-10-09 05:06] LABS: HCT 38.3 % (34.0-46.0); HGB 12.5 gm/dL (11.4-16.0); Hypochromasia Slight; MCH 31.9 pg (25.0-35.0); MCHC 32.5 g/dL (31.0-37.0); MCV 98.3 fL (80.0-100.0); Platelet Count 270 k/uL (150-450); RDW 13.9 % (11.5-15.5)
[2023-10-09 05:20] LABS: African American GFR (CKD) 66 (>60 ml/min/1.73 sqM); Anion Gap 3 mmol/L; Blood Urea Nitrogen 38 mg/dL (7-17); Calcium 8.7 mg/dL (8.4-10.2); Carbon Dioxide 37 mmol/L (22-30); Chloride 96 mmol/L (98-107); Glucose 95 mg/dL (74-99); Non-African American GFR(CKD) 58 (>60 ml/min/1.73 sqM); Potassium 3.8 mmol/L (3.5-5.1); Sodium 136 mmol/L (137-145)
[2023-10-09] MEDS: MIDODRINE 5 MG TAB PO SCH ×3 (06:32→16:57)
[2023-10-09] MEDS: LEVOTHYROXINE 88 MCG TAB PO SCH (06:32)
[2023-10-09] MEDS: DILTIAZEM 125 MG in SODIUM CHLORIDE 0.9% 100 ML IV SCH (07:27)
--- NOTE | 2023-10-09 07:48 | P.PN ---
Subjective Progress Note Date: 10/09/23 Pulmonary consult dated 09/30/2023. 73-year-old female who presented to the emergency department on September 26, complaining of arrhythmias, and palpitations. The patient does have a history of hypertension, atrial fibrillation, hyperlipidemia, pulmonary embolism, and hypothyroidism. The patient apparently was having some lower extremity edema, shortness of breath, and orthopnea. She also had mild exertional dyspnea. The patient denied any chest pain or chest discomfort. She was seen by the ER physician, and admitted with a diagnosis of atrial fibrillation, CHF, and urinary tract infection. Today, a rapid response was called on this patient, and, R ICU charge nurse, who evaluated the patient, and thought the patient should come down to the intensive care unit, for further monitoring and management. She was given some IV Lasix, and placed on BiPAP, with settings of 16/6, and 100%. She was seen in the intensive care unit, room 255. She was sitting up in bed, with mild respiratory distress, on the BiPAP device. White count was 13.7, hemoglobin 14.5, hematocrit 44.4, and a normal platelet count. Sodium 135, potassium 3.9, chlorides 96, CO2 27, anion gap 12, BUN 37, and creatinine 1.26. N-terminal proBNP, on September 29, was 7020. The patient had chest x-rays on the and on the . Today's chest x-ray shows worsening pulmonary edema. Progress note dated 10/01/2023. 73-year-old female seen again in intensive care unit, room 255. The patient was admitted with a diagnosis of acute hypoxemic respiratory failure, secondary to CHF, as well as atrial fibrillation with RVR. The patient is currently on high flow nasal O2, at 13 L. In addition, the patient uses BiPAP intermittently at 16/6, and 60%. For her atrial fibrillation and RVR, the patient's on Cardizem 15 mg an hour. Clinically, she's starting to feel a bit better. White count 9.4, hemoglobin 14, hematocrit 43.1, and platelet count 223,000. Sodium 136, potassium 4.1, chlorides 96, CO2 29, BUN 37, and creatinine 1.30. Calcium is 9.2. Chest x-ray shows improved vascular congestion. Progress note dated 10/02/2023. 73-year-old female seen in the intensive care unit, room 255. She was admitted initially with a diagnosis of acute hypoxemic respiratory failure secondary to CHF, as well as atrial fibrillation with rapid ventricular response. The patient is currently on room air, with saturations of 91%. Unfortunately, she continues on Cardizem at 10 mg an hour, and amiodarone at 0.5 mg/m. White count 9, hemoglobin 12.8, hematocrit 39.4, within normal platelet count. Sodium 136, potassium 4.3, chloride 96, CO2 34, BUN 41, creatinine 1.12. Glucose is 112. Urine culture is showing evidence of Escherichia coli. Chest x-ray shows improvement in the patient's pulmonary vascular status. Progress note dated 10/03/2023. 73-year-old female seen today in room 255, intensive care unit. She was admitted with a diagnosis of acute hypoxemic respiratory failure, secondary to CHF, as well as atrial fibrillation, with rapid ventricular response. Currently, the patient is on 2 L of oxygen. She's on a Cardizem drip at 10 mg an hour. She's not receiving any IV fluids additionally. The patient that she is BiPAP, intermittently, with settings of 16/6, and 45%. She use BiPAP last night for about an hour and a half. She needs to be using it more frequently. White count 9.4, hemoglobin 12.9, hematocrit 39.2, and platelet count 187,000. Sodium 136, potassium 4.1, chlorides 97, CO2 32, BUN 36, creatinine 1.06. Glucose 116. Calcium is 9. Chest x-ray shows improved pulmonary vascular status. Progress note dated 10/04/2023. 73-year-old female seen again in the intensive care unit, room 255. Currently, she is on 2 L of oxygen. She's on a Cardizem drip at 10 mg an hour, to be dropped on the 5 mg an hour. She did use of BiPAP last night, for many hours, and it seemed to help. Her settings include 16/6, and 45%. She currently remains in atrial fibrillation with a rate of 128 bpm. Labs today include a sodium 138, potassium 4.1, chlorides 98, CO2 31, BUN 40, and creatinine 1.08. Glucose 116. Calcium is 9.1. No chest x-ray today. Progress note dated 10/05/2023. 73-year-old female who was sent out of the intensive care unit yesterday, and came back into the intensive care unit, sometime early this morning. She apparently developed worsening shortness of breath, was severely anxious, receive some benzodiazepine, and, required BiPAP therapy. I was called by the nurse who went to the rapid response, and we decided to move the patient back to the intensive care unit. Currently, she is seen in room 261. She is on BiPAP, with settings of 16/6 and 60%. Gases done on 100% show pO2 of 66, pCO2 61, pH is 7.28. The patient is on Cardizem 5 mg an hour. She's not receiving any additional IV fluids. We did order a chest x-ray today, and N-terminal proBNP. Labs today include a white count 13.8, hemoglobin 13, hematocrit 40.7 and a platelet count 229,000. Sodium 136, potassium 4.6, chlorides 99, CO2 28, BUN 46, creatinine 1.31. Calcium is 9. Today's chest x-rays consistent with cardiomegaly, small bilateral pleural effusions, and pulmonary vascular congestion. Progress note dated 10/06/2023. 73-year-old female readmitted to the intensive care unit, for fluid overload/CHF. The patient is currently seen today in room 261. She is currently on BiPAP, with settings of 16/6, and 50%. She's getting Cardizem 5 mg an hour. Her chest x-ray shows fluid overload, so I increased her Lasix up milligrams IV push every 8 hours. When she was taken off BiPAP yesterday for a brief period of time, she became very anxious, and very short of breath, and, desaturated, and was placed back on BiPAP. White count 9.4, hemoglobin 12.9, hematocrit 40.1, within normal platelet count. Sodium 135, potassium 4.5, chlorides 99, CO2 29, BUN 49, and creatinine 1.11. Her N-terminal proBNP from yesterday was nearly 8000. Chest x-rays consistent with CHF, with effusion. On 10/07/2023, I'm seeing the patient for a follow-up. The patient remains in the intensive care unit. Overnight she uses a BiPAP at a pressure of 16/6 with an FiO2 of 50% and this morning she is on oxygen at 6 L nasal cannula. I reviewed her chest x-ray. The patient has moderate-sized bilateral pleural effusion which is worse on the right. She remains active fibrillation. She is still somewhat tachycardic with a heart rate ranging between 100-1 20 irregular. No chest pain. Continues to have significant amount of edema lower extremities bilaterally. She has a Louis catheter in place. She is receiving Lasix 40 mg IV every 8 hours and overall fluid balance has been -2.6 L over the past 24 hours. She is currently off the Cardizem drip. Echocardiogram that was done during this current admission showed a preserved LV function, mild pulmonary hypertension, [id number] mitral regurgitation. In terms of her blood work, the patient has a cigar of 8.4, hemoglobin was 12.7 and a platelet count of 228. BUN is at 44 with a creatinine of 1.02. Her proBNP level is 7910. She remains on long-term and coagulation with Eliquis 5 mg by mouth twice a day. This will be placed on hold in anticipation for thoracentesis as the patient obviously has significant amount of pleural effusions bilaterally. She was infected with E. coli in her urine on 09/26/2023 and this was treated appropriately. She continues to be on Synthroid for hypothyroidism. Her thyroid function test during this current admission shows a TSH of 1.8 which is essentially within normal limits. 10/08/2023, the patient is comfortable on oxygen at 4 L nasal cannula. Overnight, she uses the BiPAP for a total of 4 hours. She is making good urine output. She remains on IV Lasix at a dose of 40 mg every 8 hours. Fluid balance over the past 24 hours has been in the order of -2.7 L. No significant chest pain. Shortness of breath is gradually improving. The chest x-ray shows moderate-sized bilateral pleural effusions an ultrasound of the chest confirmed the findings. In fact, the patient has a 6.8 cm pocket on the right and a 7.5 cm on the left. The plan was to proceed with a thoracentesis today. The anticoagulation is currently on hold. The patient remains in atrial fibrillation. Cardiology is also planning to undergo a cardioversion at the later stage. Sodium level is at 138, potassium levels at 3.7, bicarb is 34, BUN is at 41 and a creatinine is 1.03. Potassium levels at 3.7. The risk of 9.4 with a hemoglobin of 13.1. 2022, the patient is on 3 L of oxygen by nasal cannula. Her breathing is improved significantly. She is off the BiPAP. I performed a right-sided tho racentesis on her yesterday and a total of 1.2 L of fluid was aspirated. Repeat chest x-ray showed no evidence of any pneumothorax. There is residual left- sided pleural effusion and the patient is to undergo a left-sided thoracentesis today. Meanwhile, she remains on Lasix. She is in a negative fluid balance. She is making excellent urine output. Still has edema lower extremities bilaterally. BUN is at 38 and a creatinine of 0.9 and sodium levels of 138. The white cell count is at 8 with a hemoglobin 12.5 and a platelet count of 270. The patient remains off Eliquis for now. She remains in atrial fibrillation. She is being considered for cardioversion at the later stage. She remains on Cardizem 30 mg by mouth every 8 hours and she is also on metoprolol 50 mg by mouth 3 times a day. Anticoagulation is on hold. Objective - Vital Signs Vital signs: Vital Signs Temp 97.6 F 10/09/23 04:00 Pulse 107 H 10/09/23 07:00 Resp 14 10/09/23 07:00 BP 79/61 10/09/23 07:00 Pulse Ox 97 10/09/23 07:00 FiO2 40 10/09/23 03:53 Intake & Output 10/08/23 10/09/23 10/09/23 18:59 06:59 18:59 Intake Total 750 Output Total 1555 1400 35 Balance -805 -1400 -35 Weight 137 kg Intake: Oral 750 Output: Urine 1555 1400 35 Other: Voiding Method Indwelling Catheter Indwelling Catheter - Exam awake and alert and currently she is on 3 L the L of oxygen by nasal cannula, no signs of any significant respiratory distress and she is communicating. Head exam was generally normal. There was no scleral icterus or corneal arcus. Mucous membranes were moist. HEENT examination is grossly unremarkable. Neck supple. Full range of motion. No adenopathy thyromegaly positive for JVD is bilaterally Cardiovascular examination reveals an irregular rhythm and rate. S1-S2 normal. No S3 or S4. No discernible murmur noted. Heart sounds are distant. Lungs reveal by basilar crackles. Breath sounds are equal bilaterally. The patient has diminished breath sounds in the left lung bases along with dullness to percussion. Breath sounds on the right is improved considerably. Abdomen soft bowel sounds are heard. No masses or tenderness. Extremities are intact. No cyanosis or clubbing. Mild lower extremity edema. Skin is without rash or lesion. Neurologic examination is brief but nonfocal. - Labs CBC & Chem 7: 10/09/23 04:45 10/09/23 04:45 Labs: Abnormal Lab Results - Last 24 Hours (Table) 10/09/23 Range/Units 04:45 Sodium 136 L (137-145) mmol/L Chloride 96 L (98-107) mmol/L Carbon Dioxide 37 H (22-30) mmol/L BUN 38 H (7-17) mg/dL Microbiology - Last 24 Hours (Table) 10/08/23 08:00 Gram Stain - Preliminary Pleural Fluid Assessment and Plan Plan: Acute hypoxemic respiratory failure, secondary to worsening congestive heart failure. The patient is improving currently she is on O2 by nasal cannula at 3 L She is also on 3 L of oxygen by nasal cannula. Hypoxic respiratory failure is essentially related to CHF with bilateral pleural effusions. The patient is currently on diuretics. She is in negative fluid balance. She is responding nicely to diuretics. She has a preserved LV function. ProBNP is quite elevated. She has bilateral JVDs. She has positive edema lower extremities and she has also moderate-sized bilateral pleural effusions. The patient underwent a thoracentesis on the right on 10/08/2023 with evacuation of 1.2 L of pleural fluid. This is a transudate. The same will be done to her left side today. History of chronic atrial fibrillation, with rapid ventricular response. The patient is currently on anticoagulation with Eliquis. Patient is also on metoprolol 50 mg 3 times a day and Cardizem 30 mg by mouth 3 times a day. Her thyroid function tests are essentially within normal limits. Escherichia coli urinary tract infection, treated History of hypertension. History of hyperlipidemia. History of pulmonary embolism. History of hypothyroidism. History of osteoarthritis. Plan: We'll perform a left-sided thoracentesis Continue diuretics with Lasix 40 mg IV every 8 hours Monitor fluid balance and electrolytes, the patient is a negative fluid balance Monitor renal function Possible cardioversion at the later stage as the patient is still nature f ibrillation Titrate FiO2 to maintain saturation above 90%, current pulse ox is 97% Will restart anticoagulation once he has completed her thoracentesis on the left The patient will be kept in the intensive care unit for today.
--- NOTE | 2023-10-09 07:58 | P.PCN ---
Date of Procedure: 10/09/23 Operative Findings: Preoperative Diagnosis: Pleural effusion, left Postoperative Diagnosis: Pleural effusion, left Procedure(s) Performed: Thoracentesis, left Anesthesia: local Surgeon: Glenn Montague Condition: critical Disposition: ICU Operative Findings: A time out was performed and the chest x-ray was reviewed, the appropriate side was confirmed and marked. My hands were washed immediately prior to the procedure. I wore a surgical cap, mask with protective eyewear, sterile gown and sterile gloves throughout the procedure. The patient was prepped and draped in a sterile manner using chlorhexidine scrub after the appropriate level was percussed and confirmed by ultrasound. 1% lidocaine was used to anesthesize the skin, subcutaneous tissue, superior aspect of the rib periosteum and parietal pleura. A finder needle was then introduced over the superior aspect of the rib to locate the pleural fluid; 2colored fluid was aspirated at a depth of approximately 2 cm. A 10-blade scalpel was used to rio the skin at the insertion site. The [id number] needle was then introduced through the skin incision into the pleural space using negative aspiration pressure and the red colometric indicator to confirm appropriate positioning of the needle. The thoracentesis catheter was then threaded without difficulty. 550 ml of turbid colored fluid was removed without difficulty. The catheter was then removed. No immediate complications were noted during the procedure. A post-procedure chest x-ray is pending at the time of this note. The fluid will be sent for studies. Estimated blood loss is 0cc
--- NOTE | 2023-10-09 08:14 | XR ---
EXAMINATION TYPE: XR chest 1V DATE OF EXAM: 10/09/2023 COMPARISON: 10/08/2023 HISTORY: Postthoracentesis TECHNIQUE: Single frontal view of the chest is obtained. FINDINGS: There is no sizable pleural effusion on the right. Bilateral consolidation and small left pleural effusion. No pneumothorax. Heart size mildly enlarged. Atherosclerotic change aorta. Bilatera l shoulder arthropathy. Hypertrophic and degenerative changes spine. IMPRESSION: 1. No pneumothorax. 2. Bilateral lower lobe infiltrate and small left effusion
--- NOTE | 2023-10-09 08:30 | XR ---
EXAMINATION TYPE: XR chest 1V portable DATE OF EXAM: 10/09/2023 COMPARISON: 10/09/2023 HISTORY: Cough TECHNIQUE: Single frontal view of the chest is obtained. FINDINGS: There is no sizable pleural effusion on the right. Bilateral consolidation and small left pleural effusion. No pneumothorax. Heart size mildly enlarged. Atherosclerotic change aorta. Bilatera l shoulder arthropathy. Hypertrophic and degenerative changes spine. Bilateral shoulder arthropathy. IMPRESSION: 1. Bilateral lower lobe infiltrate and small left effusion stable.
[2023-10-09] MEDS: FUROSEMIDE 10 MG/ML 4 ML VIAL IV SCH ×2 (08:31→16:57)
[2023-10-09] MEDS: PANTOPRAZOLE 40 MG/10 ML VIAL IVP SCH (08:31)
[2023-10-09] MEDS: POTASSIUM CHLORIDE ER 20 MEQ TAB.ER PO SCH (08:33)
[2023-10-09] MEDS: METOPROLOL TARTRATE 50 MG TAB PO SCH ×3 (08:33→22:08)
[2023-10-09] MEDS: guaiFENesin 600 MG TABLET.ER PO SCH ×2 (08:33→20:20)
[2023-10-09] MEDS: AMIODARONE 200 MG TAB PO SCH ×2 (08:33→20:20)
[2023-10-09] MEDS: MAGNESIUM OXIDE 400 MG TAB PO SCH (08:33)
--- NOTE | 2023-10-09 09:41 | P.PN ---
Subjective Progress Note Date: 10/09/23 The patient is a 73-year-old female who follows in the office with Dr. Sylvester. She presented to the hospital with shortness of breath and palpitations. She was found to be in A. fib with RVR as well as diastolic heart failure. The patient has had poorly controlled heart rates throughout her admission with secondary hypotension. She was recently started on midodrine. Echocardiogram reveals preserved systolic function with moderate MR and mild to moderate TR. The patient underwent left thoracentesis where 550 MLS were removed at bedside. Right-sided thoracentesis was completed yesterday. Patient was interviewed and examined resting in bed. She states her breathing is much better since the fluid was removed. She currently denies any pain or discomfort. GENERAL: Well-appearing, well-nourished obese female in no acute distress. NECK: Supple without JVD or thyromegaly. LUNGS: Breath sounds diminished to auscultation bilaterally. Respiration equal and unlabored. No wheezes, rales or rhonchi. HEART: Irregular rate and rhythm without murmurs, rubs or gallops. S1 and S2 heard. EXTREMITIES: Normal range of motion, +3 pitting bilateral lower extremity edema. No clubbing or cyanosis. TELEMETRY: Persistent atrial fibrillation. Heart rates ranging from the low 100s LABS: WBC 8.0, hemoglobin 12.5, hematocrit 30.5, platelet 270, sodium 136, potassium 3.8, BUN 38, creatinine 0.97 IMPRESSION: A. fib with RVR Secondary hypotension Diastolic heart failure History of pulmonary emboli Bilateral pleural effusions PLAN Wean off of midodrine Tomorrow we will discontinue calcium channel jorge alberto and maximize beta jorge alberto as tolerated Consideration for cardioversion if she remains hypotensive Further recommendations to be based on clinical course I am dictating on behalf of Dr Jani Ayala's history/physical and assessment/plan. Objective - Vital Signs Vital signs: Vital Signs Temp 97.6 F 10/09/23 04:00 Pulse 107 H 10/09/23 07:00 Resp 14 10/09/23 07:00 BP 79/61 10/09/23 07:00 Pulse Ox 97 10/09/23 07:00 FiO2 40 10/09/23 03:53 Intake & Output 10/08/23 10/09/23 10/09/23 18:59 06:59 18:59 Intake Total 750 Output Total 1555 1400 35 Balance -805 -1400 -35 Weight 137 kg Intake: Oral 750 Output: Urine 1555 1400 35 Other: Voiding Method Indwelling Catheter Indwelling Catheter - Labs CBC & Chem 7: 10/09/23 04:45 10/09/23 04:45 Labs: Abnormal Lab Results - Last 24 Hours (Table) 10/09/23 Range/Units 04:45 Sodium 136 L (137-145) mmol/L Chloride 96 L (98-107) mmol/L Carbon Dioxide 37 H (22-30) mmol/L BUN 38 H (7-17) mg/dL Microbiology - Last 24 Hours (Table) 10/08/23 08:00 Gram Stain - Preliminary Pleural Fluid Body Fluid Culture - Preliminary
[2023-10-09] MEDS: ALBUTEROL NEBULIZED 2.5 MG/3 ML INHALATION PRN ×2 (11:03→20:02)
[2023-10-09] MEDS: APIXABAN 5 MG TAB PO SCH ×2 (11:36→20:20)
--- NOTE | 2023-10-09 14:44 | P.PN ---
Subjective Progress Note Date: 10/09/23 H&P Date: 09/27/23 Chief Complaint: Palpitations, dyspnea This is a 73-year-old female with past medical history significant for atrial fibrillation, PE, status post EKOS 02/2022, hypertension, hypothyroidism admitted with atrial fibrillation with RVR and multiple other medical issues.Evaluated and treated by cardiology. Presented to the hospital with complaints of heart palpitations, hypertension , shortness of breath 1 week.Positive orthopnea , reports sleeping sitting up in a recliner as well as living downstairs in her home to avoid climbing stairs. Cardizem drip initiated, rate improving. Cardiology consult in place. Troponins negative 3 , proBNP pending .EKG rate atrial fibrillation with RVR heart rate 132 . Echo reported normal LV f unction, mild pulmonary hypertension, moderate mitral and moderate tricuspid regurgitation .Chest x-ray no acute pulmonary process. UA reports positive nitrates, many bacteria, small leukocytes, urine culture pending. 09/30/2023 recently placed on 2 L nasal cannula, then increased to 4 L, ebony [place]te O2 sats in the low 90s .complains of mild increased shortness of breath, which she reports started actually during the night. She has been on Lasix IV push every 12 hours, 24-hour I&O reflecting a negative fluid balance. Renal function mildly worsened, BUN 37, creatinine 1.26. Sodium 125 .Maintained on Rocephin for acute UTI. Afebrile, WBC 13.7. Blood sugars controlled. 10/01/23 yesterday developed worsening pulmonary edema, transfer to ICU. Chest x-ray at that time reported worsening of large perihilar consolidation noted greater on the right, pulmonary edema versus diffuse pneumonia. Received additional Lasix IV push, frequency increased yesterday diuresed well with 24-hour I&O reflecting a negative fluid balance. Maintained on BiPAP throughout the night, placed on 13 L nasal cannula to facilitate patient's diet intake this morning. Chest x-ray repeated this morning reporting improving bilateral areas of consolidation. Telemetry sinus rhythm, continues on Cardizem drip, tachycardic with heart rates in the 130s to 140s. Denies chest pain, palpitations. Afebrile, normal WBC. BUN 37, creatinine 1.30. Blood sugars controlled. 10/07/23 used BiPAP overnight, currently maintaining O2 sats in the 90s on 6 L nasal cannula. Chest x-ray reported bilateral pleural effusions, chest ultrasound reported right pleural effusion 6.8 cm, left pleural effusion 7.5 cm with both marked for possible thoracentesis. Diuresing on Lasix IV push with 24-hour I&O reflecting a negative fluid balance, but continues to have significant lower extremity edema. Telemetry atrial fibrillation with heart rates up to 120s. Reports palpitations, no chest pain. Evaluated by ca rdiology, discussing RICO with cardioversion. 10/08/23 Eliquis on hold. status post right thoracentesis with 1200 MLS turbid pleural drainage. Tolerated procedure well. Postprocedure x-ray reported no pneumothorax, bilateral lower lobe infiltrate and small left effusion. Using BiPAP at night. Currently seem on Lasix IV push with 24-hour I&O reflecting a negative fluid balance. Telemetry atrial fibrillation with heart rates ranging from 90 to 110s. Maintaining O2 in the high 90s on 4-5 L nasal cannula. Bicarb 34, BUN 41, creatinine 1.03. Objective - Vital Signs Vital signs: Vital Signs Temp 98.1 F 10/08/23 16:00 Pulse 110 H 10/08/23 16:00 Resp 16 10/08/23 16:00 BP 97/61 10/08/23 16:00 Pulse Ox 95 10/08/23 16:00 FiO2 50 10/08/23 00:00 Intake & Output 10/07/23 10/08/23 10/08/23 18:59 06:59 18:59 Intake Total 575 0 500 Output Total 1605 1730 960 Balance -1030 -1730 -460 Weight 137.9 kg Intake: IV 0 Diltiazem 125 mg In 0 Sodium Chloride 0.9% 100 ml @ 5 MG/HR 5 mls/hr IV .Q24H [facility] Rx#:[id number] Oral 575 0 500 Output: Urine 1605 1730 960 Other: Voiding Method Indwelling Catheter Indwelling Catheter Indwelling Catheter - Exam PHYSICAL EXAM: VITAL SIGNS: [As above] GENERAL: Alert and oriented 3,Sitting up in bed, NAD HEENT: Normocephalic, Conjunctivae normal. eyes normal, MMM. NECK: Supple, No JVD. CARDIOVASCULAR: S1, S2. irregular. No murmur. RESPIRATION: Unlabored, equal air entry, bibasilar crackles ABDOMEN: Soft, nontender. Positive bowel sounds. LEGS: Decreasing Bilateral lower extremity edema. NERVOUS SYSTEM: Cranial N 2-12 grossly normal.No focal deficits. Strength and sensation grossly intact. Skin: Warm and dry, no rash - Labs CBC & Chem 7: 10/09/23 04:45 10/09/23 04:45 Labs: Abnormal Lab Results - Last 24 Hours (Table) 10/08/23 Range/Units 03:34 Chloride 96 L (98-107) mmol/L Carbon Dioxide 34 H (22-30) mmol/L BUN 41 H (7-17) mg/dL Assessment and Plan Assessment: Paroxysmal Atrial fibrillation with rapid ventricular rate Secondary Hypotension Acute on chronic CHF exacerbation, diastolic dysfunction, ef 55-60% Acute hypoxic respiratory failure secondary to the above Acute UTI, culture reporting E. coli Acute renal failure Pulmonary embolism bilaterally status post EKOS, 03/14/2022 Pulmonary hypertension Moderate mitral and tricuspid regurgitation Hypothyroidism Hypertension, history of Hyperlipidemia Osteoarthritis with history right knee placement in July 2022. Morbid obesity, BMI 46 Plan: Continue on current medication regime ,monitoring and symptomatic treatment. IV push diuretics. Anticoagulation remains on hold for potential left thoracentesis tomorrow. Cardiology recommending RICO and cardioversion. Close monitoring of renal function, electrolytes with repeat labs ordered for a.m. Prognosis guarded given multiple complex medical issues. The impression and plan of care has been dictated as directed. : I performed a history and examination of this patient, discussed the same with the dictator. I agree with the dictator's note ,documented as a scribe. Any additional findings or plans will be noted.
--- NOTE | 2023-10-09 14:59 | P.PN ---
Subjective Progress Note Date: 10/09/23 H&P Date: 09/27/23 Chief Complaint: Palpitations, dyspnea This is a 73-year-old female with past medical history significant for atrial fibrillation, PE, status post EKOS 02/2022, hypertension, hypothyroidism admitted with atrial fibrillation with RVR and multiple other medical issues.Evaluated and treated by cardiology. Presented to the hospital with complaints of heart palpitations, hypertension , shortness of breath 1 week.Positive orthopnea , reports sleeping sitting up in a recliner as well as living downstairs in her home to avoid climbing stairs. Cardizem drip initiated, rate improving. Cardiology consult in place. Troponins negative 3 , proBNP pending .EKG rate atrial fibrillation with RVR heart rate 132 . Echo reported normal LV f unction, mild pulmonary hypertension, moderate mitral and moderate tricuspid regurgitation .Chest x-ray no acute pulmonary process. UA reports positive nitrates, many bacteria, small leukocytes, urine culture pending. 09/30/2023 recently placed on 2 L nasal cannula, then increased to 4 L, [place] O2 sats in the low 90s .complains of mild increased shortness of breath, which she reports started actually during the night. She has been on Lasix IV push every 12 hours, 24-hour I&O reflecting a negative fluid balance. Renal function mildly worsened, BUN 37, creatinine 1.26. Sodium 125 .Maintained on Rocephin for acute UTI. Afebrile, WBC 13.7. Blood sugars controlled. 10/01/23 yesterday developed worsening pulmonary edema, transfer to ICU. Chest x-ray at that time reported worsening of large perihilar consolidation noted greater on the right, pulmonary edema versus diffuse pneumonia. Received additional Lasix IV push, frequency increased yesterday diuresed well with 24-hour I&O reflecting a negative fluid balance. Maintained on BiPAP throughout the night, placed on 13 L nasal cannula to facilitate patient's diet intake this morning. Chest x-ray repeated this morning reporting improving bilateral areas of consolidation. Telemetry sinus rhythm, continues on Cardizem drip, tachycardic with heart rates in the 130s to 140s. Denies chest pain, palpitations. Afebrile, normal WBC. BUN 37, creatinine 1.30. Blood sugars controlled. 10/07/23 used BiPAP overnight, currently maintaining O2 sats in the 90s on 6 L nasal cannula. Chest x-ray reported bilateral pleural effusions, chest ultrasound reported right pleural effusion 6.8 cm, left pleural effusion 7.5 cm with both marked for possible thoracentesis. Diuresing on Lasix IV push with 24-hour I&O reflecting a negative fluid balance, but continues to have significant lower extremity edema. Telemetry atrial fibrillation with heart rates up to 120s. Reports palpitations, no chest pain. Evaluated by ca rdiology, discussing RICO with cardioversion. 10/08/23 Eliquis on hold. status post right thoracentesis with 1200 MLS turbid pleural drainage aspirated. Tolerated procedure well. Postprocedure x-ray reported no pneumothorax, bilateral lower lobe infiltrate and small left effusion. Using BiPAP at night. Currently seem on Lasix IV push with 24-hour I&O reflecting a negative fluid balance. Telemetry atrial fibrillation with heart rates ranging from 90 to 110s. Maintaining O2 in the high 90s on 4-5 L nasal cannula. Bicarb 34, BUN 41, creatinine 1.03. 10/09/2023 chest x-ray reporting bilateral lower lobe infiltrate and small left effusion/no sizable pleural effusion on the right/no pneumothorax. Status post left thoracentesis this morning with 550 MLS turbid pleural drainage aspirated. Tolerated procedure well. Postprocedure chest x-ray reported no pneumothorax. Maintained on oral antiarrhythmics ,telemetry reporting atrial fibrillation. Cardioversion pending. Afebrile, normal WBC. Continues diuresing well on Lasix IV push with 24-hour I&O reflecting a negative fluid balance. sodium 136, potassium 3.8, bicarb 37, BUN 38, creatinine 0.97. Maintaining O2 sats in the 90s on 3 L nasal cannula. Objective - Vital Signs Vital signs: Vital Signs Temp 97.6 F 10/09/23 04:00 Pulse 100 10/09/23 12:00 Resp 18 10/09/23 12:00 BP 91/68 10/09/23 12:00 Pulse Ox 95 10/09/23 12:00 FiO2 40 10/09/23 03:53 Intake & Output 10/08/23 10/09/23 10/09/23 18:59 06:59 18:59 Intake Total 750 Output Total 1555 1400 935 Balance -805 -1400 -935 Weight 137 kg Intake: Oral 750 Output: Urine 2386 1400 935 Other: Voiding Method Indwelling Catheter Indwelling Catheter Indwelling Catheter - Exam PHYSICAL EXAM: VITAL SIGNS: [As above] GENERAL: Alert and oriented 3,Sitting up in bed, NAD HEENT: Normocephalic, Conjunctivae normal. eyes normal. NECK: Supple, No JVD. CARDIOVASCULAR: S1, S2. irregular. No murmur. RESPIRATION: Unlabored, equal air entry, bibasilar crackles ABDOMEN: Soft, nontender. Positive bowel sounds. LEGS: Decreasing Bilateral lower extremity edema. NERVOUS SYSTEM: Cranial N 2-12 grossly normal.No focal deficits. Strength and sensation grossly intact. Skin: Warm and dry, no rash - Labs CBC & Chem 7: 10/09/23 04:45 10/09/23 04:45 Labs: Abnormal Lab Results - Last 24 Hours (Table) 10/09/23 Range/Units 04:45 Sodium 136 L (137-145) mmol/L Chloride 96 L (98-107) mmol/L Carbon Dioxide 37 H (22-30) mmol/L BUN 38 H (7-17) mg/dL Microbiology - Last 24 Hours (Table) 10/08/23 08:00 Gram Stain - Preliminary Pleural Fluid Body Fluid Culture - Preliminary Assessment and Plan Assessment: Paroxysmal Atrial fibrillation with rapid ventricular rate Secondary Hypotension Acute on chronic CHF exacerbation, diastolic dysfunction, ef 55-60%. Bilateral pleural effusions status post right and left thoracentesis. Acute hypoxic respiratory failure secondary to the above Acute UTI, culture reporting E. coli Acute renal failure Pulmonary embolism bilaterally status post EKOS, 03/14/2022 Pulmonary hypertension Moderate mitral and tricuspid regurgitation Hypothyroidism Hypertension, history of Hyperlipidemia Osteoarthritis with history right knee placement in July 2022. Morbid obesity, BMI 46 Plan: Continue on current medication regime ,monitoring and symptomatic treatment. IV push diuretics. Eliquis resumed. Cardioversion pending .Close monitoring of renal function, electrolytes with repeat labs ordered for a.m. Prognosis guarded given multiple complex medical issues. The impression and plan of care has been dictated as directed. : I performed a history and examination of this patient, discussed the same with the dictator. I agree with the dictator's note ,documented as a scribe. Any a dditional findings or plans will be noted.
[2023-10-09] MEDS: ATORVASTATIN 80 MG TAB PO SCH (20:20)
[2023-10-09] MEDS: LORazepam 2 MG/ML INJ IV PRN (22:09)
[2023-10-10] MEDS: FUROSEMIDE 10 MG/ML 4 ML VIAL IV SCH ×4 (00:40→23:37)
[2023-10-10] MEDS: DILTIAZEM ORAL 30 MG TAB PO SCH ×2 (00:40→08:18)
[2023-10-10 05:13] LABS: Basophils % (A) 0 %; Eosinophils # (A) 0.1 k/uL (0-0.7); Eosinophils % (A) 2 %; HCT 40.4 % (34.0-46.0); HGB 13.1 gm/dL (11.4-16.0); Hypochromasia Slight; Lymphocytes # (A) 1.3 k/uL (1.0-4.8); Lymphocytes % (A) 23 %; MCH 32.1 pg (25.0-35.0); MCHC 32.5 g/dL (31.0-37.0); MCV 98.9 fL (80.0-100.0); Mean Platelet Volume 7.8; Monocytes # (A) 0.6 k/uL (0-1.0); Monocytes % (A) 10 %; Neutrophils # (A) 3.8 k/uL (1.3-7.7); Neutrophils % (A) 64 %; Platelet Count 245 k/uL (150-450); RBC 4.08 m/uL (3.80-5.40); RDW 13.8 % (11.5-15.5); WBC 5.9 k/uL (3.8-10.6)
[2023-10-10 05:14] LABS: African American GFR (CKD) 57 (>60 ml/min/1.73 sqM); Anion Gap 5 mmol/L; Blood Urea Nitrogen 36 mg/dL (7-17); Calcium 8.7 mg/dL (8.4-10.2); Carbon Dioxide 37 mmol/L (22-30); Chloride 96 mmol/L (98-107); Glucose 91 mg/dL (74-99); Non-African American GFR(CKD) 49 (>60 ml/min/1.73 sqM); Potassium 3.6 mmol/L (3.5-5.1); Sodium 138 mmol/L (137-145)
[2023-10-10] MEDS: MIDODRINE 5 MG TAB PO SCH ×3 (06:35→16:56)
[2023-10-10] MEDS: LEVOTHYROXINE 88 MCG TAB PO SCH (06:36)
[2023-10-10] MEDS: PANTOPRAZOLE 40 MG/10 ML VIAL IVP SCH (08:13)
[2023-10-10] MEDS: AMIODARONE 200 MG TAB PO SCH ×2 (08:18→21:57)
[2023-10-10] MEDS: APIXABAN 5 MG TAB PO SCH ×2 (08:18→21:57)
[2023-10-10] MEDS: ALBUTEROL NEBULIZED 2.5 MG/3 ML INHALATION PRN ×2 (08:18→20:19)
[2023-10-10] MEDS: MAGNESIUM OXIDE 400 MG TAB PO SCH (08:18)
[2023-10-10] MEDS: METOPROLOL TARTRATE 50 MG TAB PO SCH ×2 (08:18→21:57)
[2023-10-10] MEDS: POTASSIUM CHLORIDE ER 20 MEQ TAB.ER PO SCH (08:18)
[2023-10-10] MEDS: guaiFENesin 600 MG TABLET.ER PO SCH ×2 (08:18→21:57)
--- NOTE | 2023-10-10 08:57 | P.PN ---
Subjective Progress Note Date: 10/10/23 Pulmonary consult dated 09/30/2023. 73-year-old female who presented to the emergency department on September 26, complaining of arrhythmias, and palpitations. The patient does have a history of hypertension, atrial fibrillation, hyperlipidemia, pulmonary embolism, and hypothyroidism. The patient apparently was having some lower extremity edema, shortness of breath, and orthopnea. She also had mild exertional dyspnea. The patient denied any chest pain or chest discomfort. She was seen by the ER physician, and admitted with a diagnosis of atrial fibrillation, CHF, and urinary tract infection. Today, a rapid response was called on this patient, and, R ICU charge nurse, who evaluated the patient, and thought the patient should come down to the intensive care unit, for further monitoring and management. She was given some IV Lasix, and placed on BiPAP, with settings of 16/6, and 100%. She was seen in the intensive care unit, room 255. She was sitting up in bed, with mild respiratory distress, on the BiPAP device. White count was 13.7, hemoglobin 14.5, hematocrit 44.4, and a normal platelet count. Sodium 135, potassium 3.9, chlorides 96, CO2 27, anion gap 12, BUN 37, and creatinine 1.26. N-terminal proBNP, on September 29, was 7020. The patient had chest x-rays on the and on the . Today's chest x-ray shows worsening pulmonary edema. Progress note dated 10/01/2023. 73-year-old female seen again in intensive care unit, room 255. The patient was admitted with a diagnosis of acute hypoxemic respiratory failure, secondary to CHF, as well as atrial fibrillation with RVR. The patient is currently on high flow nasal O2, at 13 L. In addition, the patient uses BiPAP intermittently at 16/6, and 60%. For her atrial fibrillation and RVR, the patient's on Cardizem 15 mg an hour. Clinically, she's starting to feel a bit better. White count 9.4, hemoglobin 14, hematocrit 43.1, and platelet count 223,000. Sodium 136, potassium 4.1, chlorides 96, CO2 29, BUN 37, and creatinine 1.30. Calcium is 9.2. Chest x-ray shows improved vascular congestion. Progress note dated 10/02/2023. 73-year-old female seen in the intensive care unit, room 255. She was admitted initially with a diagnosis of acute hypoxemic respiratory failure secondary to CHF, as well as atrial fibrillation with rapid ventricular response. The patient is currently on room air, with saturations of 91%. Unfortunately, she continues on Cardizem at 10 mg an hour, and amiodarone at 0.5 mg/m. White count 9, hemoglobin 12.8, hematocrit 39.4, within normal platelet count. Sodium 136, potassium 4.3, chloride 96, CO2 34, BUN 41, creatinine 1.12. Glucose is 112. Urine culture is showing evidence of Escherichia coli. Chest x-ray shows improvement in the patient's pulmonary vascular status. Progress note dated 10/03/2023. 73-year-old female seen today in room 255, intensive care unit. She was admitted with a diagnosis of acute hypoxemic respiratory failure, secondary to CHF, as well as atrial fibrillation, with rapid ventricular response. Currently, the patient is on 2 L of oxygen. She's on a Cardizem drip at 10 mg an hour. She's not receiving any IV fluids additionally. The patient that she is BiPAP, intermittently, with settings of 16/6, and 45%. She use BiPAP last night for about an hour and a half. She needs to be using it more frequently. White count 9.4, hemoglobin 12.9, hematocrit 39.2, and platelet count 187,000. Sodium 136, potassium 4.1, chlorides 97, CO2 32, BUN 36, creatinine 1.06. Glucose 116. Calcium is 9. Chest x-ray shows improved pulmonary vascular status. Progress note dated 10/04/2023. 73-year-old female seen again in the intensive care unit, room 255. Currently, she is on 2 L of oxygen. She's on a Cardizem drip at 10 mg an hour, to be dropped on the 5 mg an hour. She did use of BiPAP last night, for many hours, and it seemed to help. Her settings include 16/6, and 45%. She currently remains in atrial fibrillation with a rate of 128 bpm. Labs today include a sodium 138, potassium 4.1, chlorides 98, CO2 31, BUN 40, and creatinine 1.08. Glucose 116. Calcium is 9.1. No chest x-ray today. Progress note dated 10/05/2023. 73-year-old female who was sent out of the intensive care unit yesterday, and came back into the intensive care unit, sometime early this morning. She apparently developed worsening shortness of breath, was severely anxious, receive some benzodiazepine, and, required BiPAP therapy. I was called by the nurse who went to the rapid response, and we decided to move the patient back to the intensive care unit. Currently, she is seen in room 261. She is on BiPAP, with settings of 16/6 and 60%. Gases done on 100% show pO2 of 66, pCO2 61, pH is 7.28. The patient is on Cardizem 5 mg an hour. She's not receiving any additional IV fluids. We did order a chest x-ray today, and N-terminal proBNP. Labs today include a white count 13.8, hemoglobin 13, hematocrit 40.7 and a platelet count 229,000. Sodium 136, potassium 4.6, chlorides 99, CO2 28, BUN 46, creatinine 1.31. Calcium is 9. Today's chest x-rays consistent with cardiomegaly, small bilateral pleural effusions, and pulmonary vascular congestion. Progress note dated 10/06/2023. 73-year-old female readmitted to the intensive care unit, for fluid overload/CHF. The patient is currently seen today in room 261. She is currently on BiPAP, with settings of 16/6, and 50%. She's getting Cardizem 5 mg an hour. Her chest x-ray shows fluid overload, so I increased her Lasix up milligrams IV push every 8 hours. When she was taken off BiPAP yesterday for a brief period of time, she became very anxious, and very short of breath, and, desaturated, and was placed back on BiPAP. White count 9.4, hemoglobin 12.9, hematocrit 40.1, within normal platelet count. Sodium 135, potassium 4.5, chlorides 99, CO2 29, BUN 49, and creatinine 1.11. Her N-terminal proBNP from yesterday was nearly 8000. Chest x-rays consistent with CHF, with effusion. On 10/07/2023, I'm seeing the patient for a follow-up. The patient remains in the intensive care unit. Overnight she uses a BiPAP at a pressure of 16/6 with an FiO2 of 50% and this morning she is on oxygen at 6 L nasal cannula. I reviewed her chest x-ray. The patient has moderate-sized bilateral pleural effusion which is worse on the right. She remains active fibrillation. She is still somewhat tachycardic with a heart rate ranging between 100-1 20 irregular. No chest pain. Continues to have significant amount of edema lower extremities bilaterally. She has a Louis catheter in place. She is receiving Lasix 40 mg IV every 8 hours and overall fluid balance has been -2.6 L over the past 24 hours. She is currently off the Cardizem drip. Echocardiogram that was done during this current admission showed a preserved LV function, mild pulmonary hypertension, [id number] mitral regurgitation. In terms of her blood work, the patient has a cigar of 8.4, hemoglobin was 12.7 and a platelet count of 228. BUN is at 44 with a creatinine of 1.02. Her proBNP level is 7910. She remains on long-term and coagulation with Eliquis 5 mg by mouth twice a day. This will be placed on hold in anticipation for thoracentesis as the patient obviously has significant amount of pleural effusions bilaterally. She was infected with E. coli in her urine on 09/26/2023 and this was treated appropriately. She continues to be on Synthroid for hypothyroidism. Her thyroid function test during this current admission shows a TSH of 1.8 which is essentially within normal limits. 10/08/2023, the patient is comfortable on oxygen at 4 L nasal cannula. Overnight, she uses the BiPAP for a total of 4 hours. She is making good urine output. She remains on IV Lasix at a dose of 40 mg every 8 hours. Fluid balance over the past 24 hours has been in the order of -2.7 L. No significant chest pain. Shortness of breath is gradually improving. The chest x-ray shows moderate-sized bilateral pleural effusions an ultrasound of the chest confirmed the findings. In fact, the patient has a 6.8 cm pocket on the right and a 7.5 cm on the left. The plan was to proceed with a thoracentesis today. The anticoagulation is currently on hold. The patient remains in atrial fibrillation. Cardiology is also planning to undergo a cardioversion at the later stage. Sodium level is at 138, potassium levels at 3.7, bicarb is 34, BUN is at 41 and a creatinine is 1.03. Potassium levels at 3.7. The risk of 9.4 with a hemoglobin of 13.1. 10/09/2023, the patient is on 3 L of oxygen by nasal cannula. Her breathing is improved significantly. She is off the BiPAP. I performed a right-sided thoracentesis on her yesterday and a total of 1.2 L of fluid was aspirated. Repeat chest x-ray showed no evidence of any pneumothorax. There is residual left-sided pleural effusion and the patient is to undergo a left-sided thoracentesis today. Meanwhile, she remains on Lasix. She is in a negative fluid balance. She is making excellent urine output. Still has edema lower extremities bilaterally. BUN is at 38 and a creatinine of 0.9 and sodium levels of 138. The white cell count is at 8 with a hemoglobin 12.5 and a platelet count of 270. The patient remains off Eliquis for now. She remains in atrial fibrillation. She is being considered for cardioversion at the later stage. She remains on Cardizem 30 mg by mouth every 8 hours and she is also on metoprolol 50 mg by mouth 3 times a day. Anticoagulation is on hold. 10/10/2023, the patient is doing extremely well and she is currently on 2 L of oxygen by nasal cannula. She underwent bilateral thoracentesis. The fluid on the right was 1.2 L and the fluid on the left was 500 mL. The patient is doing much better since. Her chest x-ray shows minimal atelectatic changes in the left lung base. Her breathing is comfortable. She remains on IV Lasix. Negative fluid balance. Her cardiac rhythm is still itchy fibrillation. She is back on anticoagulation and she is being considered for cardioversion within next 24 hours. Cardiology is on the case. Blood work from today shows a creatinine of 1.0 with a BUN of 36. Sodium is at 138. Potassium is at 3.6. The white cell count of 5.9 with a hemoglobin of 13.1. No other significant events otherwise. In terms of rate control, she is on Cardizem 30 mg by mouth every 8 hours and metoprolol 50 mg by mouth 3 times a day. Potassium is being replaced. She is also on amiodarone 400 mg by mouth twice a day. Objective - Vital Signs Vital signs: Vital Signs Temp 98.0 F 10/10/23 08:00 Pulse 96 10/10/23 08:29 Resp 16 10/10/23 08:00 BP 89/67 10/10/23 08:00 Pulse Ox 98 10/10/23 08:00 FiO2 40 10/10/23 04:00 Intake & Output 10/09/23 10/10/23 10/10/23 18:59 06:59 18:59 Intake Total 390 118 Output Total 1235 1595 50 Balance -1235 -1205 68 Weight 136.8 kg Intake: IV 10 Invasive Line 6 10 Oral 380 118 Output: Urine 1235 1595 50 Other: Voiding Method Indwelling Catheter Indwelling Catheter - Exam awake and alert and currently she is on 2 L the L of oxygen by nasal cannula, no signs of any significant respiratory distress and she is communicating. Head exam was generally normal. There was no scleral icterus or corneal arcus. Mucous membranes were moist. HEENT examination is grossly unremarkable. Neck supple. Full range of motion. No adenopathy thyromegaly positive for JVD is bilaterally Cardiovascular examination reveals an irregular rhythm and rate. S1-S2 normal. No S3 or S4. No discernible murmur noted. Heart sounds are distant. Lungs reveal by basilar crackles. Breath sounds are equal bilaterally. The patient has diminished breath sounds in the left lung bases along with dullness to percussion. Breath sounds on the right is improved considerably. Abdomen soft bowel sounds are heard. No masses or tenderness. Extremities are intact. No cyanosis or clubbing. Mild lower extremity edema. Skin is without rash or lesion. Neurologic examination is brief but nonfocal. - Labs CBC & Chem 7: 10/10/23 04:05 10/10/23 04:05 Labs: Abnormal Lab Results - Last 24 Hours (Table) 10/10/23 Range/Units 04:05 Chloride 96 L (98-107) mmol/L Carbon Dioxide 37 H (22-30) mmol/L BUN 36 H (7-17) mg/dL Creatinine 1.10 H (0.52-1.04) mg/dL Microbiology - Last 24 Hours (Table) 10/08/23 08:00 Gram Stain - Preliminary Pleural Fluid Body Fluid Culture - Preliminary Assessment and Plan Plan: Acute hypoxemic respiratory failure, secondary to worsening congestive heart failure. The patient is improving currently she is on O2 by nasal cannula at 2 liters much improved with optimization of her CHF and volume status Bilateral pleural effusion post bilateral thoracentesis History of chronic atrial fibrillation, with rapid ventricular response. The patient is currently on anticoagulation with Eliquis. Patient is also on metoprolol 50 mg 3 times a day and Cardizem 30 mg by mouth 3 times a day. She is also on amiodarone 400 mg by mouth twice a day. Her thyroid function tests are essentially within normal limits. She is back on anticoagulation with Eliquis. Escherichia coli urinary tract infection, treated History of hypertension. History of hyperlipidemia. History of pulmonary embolism. History of hypothyroidism. History of osteoarthritis. Plan: Completed bilateral thoracentesis and this included a transudate Continue diuretics with Lasix 40 mg IV every 8 hours Monitor fluid balance and electrolytes, the patient is a negative fluid balance Monitor renal function Possible cardioversion at the later stage as the patient is still nature fibrillation Titrate FiO2 to maintain saturation above 90%, current pulse ox is 97% Restarted anticoagulation The patient will be kept in the intensive care unit for today.
--- NOTE | 2023-10-10 09:26 | P.PN ---
Subjective Progress Note Date: 10/10/23 The patient is a 73-year-old female who follows in the office with Dr. Sylvester. She presented to the hospital with shortness of breath and palpitations. She was found to be in A. fib with RVR as well as diastolic heart failure. The patient has had poorly controlled heart rates throughout her admission with secondary hypotension. She was recently started on midodrine. Echocardiogram reveals preserved systolic function with moderate MR and mild to moderate TR. The patient underwent bilateral thoracenteses, significantly improving her shortness of breath as well as heart rates. Patient was interviewed and examined resting in bed. She denies any chest pain or chest pressure. Her breathing continues to improve. She currently denies any pain or discomfort. GENERAL: Well-appearing, well-nourished obese female in no acute distress. NECK: Supple without JVD or thyromegaly. LUNGS: Breath sounds diminished to auscultation bilaterally. Respiration equal and unlabored. No wheezes, rales or rhonchi. HEART: Irregular rate and rhythm without murmurs, rubs or gallops. S1 and S2 heard. EXTREMITIES: Normal range of motion, +3 pitting bilateral lower extremity edema. No clubbing or cyanosis. TELEMETRY: Persistent atrial fibrillation. Heart rates averaging in the low 100s. LABS: WBC 5.9, hemoglobin 13.1, hematocrit 40.4, platelet 245, sodium 138, potassium 3.6, BUN 36, creatinine 1.10 IMPRESSION: A. fib with RVR Secondary hypotension Diastolic heart failure History of pulmonary emboli Bilateral pleural effusions PLAN Wean off of midodrine Discontinue Cardizem Increase beta jorge alberto No plans for cardioversion at this time. Consideration outpatient. Further recommendations to be based on clinical course I am dictating on behalf of Dr Jani Ayala's history/physical and assess ment/plan. Objective - Vital Signs Vital signs: Vital Signs Temp 98.0 F 10/10/23 08:00 Pulse 96 10/10/23 08:29 Resp 16 10/10/23 08:00 BP 89/67 10/10/23 08:00 Pulse Ox 98 10/10/23 08:00 FiO2 40 10/10/23 04:00 Intake & Output 10/09/23 10/10/23 10/10/23 18:59 06:59 18:59 Intake Total 390 118 Output Total 1235 1595 50 Balance -1235 -1205 68 Weight 136.8 kg Intake: IV 10 Invasive Line 6 10 Oral 380 118 Output: Urine 1235 1595 50 Other: Voiding Method Indwelling Catheter Indwelling Catheter - Labs CBC & Chem 7: 10/10/23 04:05 10/10/23 04:05 Labs: Abnormal Lab Results - Last 24 Hours (Table) 10/10/23 Range/Units 04:05 Chloride 96 L (98-107) mmol/L Carbon Dioxide 37 H (22-30) mmol/L BUN 36 H (7-17) mg/dL Creatinine 1.10 H (0.52-1.04) mg/dL Microbiology - Last 24 Hours (Table) 10/08/23 08:00 Gram Stain - Preliminary Pleural Fluid Body Fluid Culture - Preliminary
[2023-10-10] MEDS ORDERED: METOPROLOL TARTRATE 25 MG TAB PO ONE (12:00)
--- NOTE | 2023-10-10 14:57 | P.PN ---
Subjective Progress Note Date: 10/10/23 H&P Date: 09/27/23 Chief Complaint: Palpitations, dyspnea This is a 73-year-old female with past medical history significant for atrial fibrillation, PE, status post EKOS 02/2022, hypertension, hypothyroidism admitted with atrial fibrillation with RVR and multiple other medical issues.Evaluated and treated by cardiology. Presented to the hospital with complaints of heart palpitations, hypertension , shortness of breath 1 week.Positive orthopnea , reports sleeping sitting up in a recliner as well as living downstairs in her home to avoid climbing stairs. Cardizem drip initiated, rate improving. Cardiology consult in place. Troponins negative 3 , proBNP pending .EKG rate atrial fibrillation with RVR heart rate 132 . Echo reported normal LV f unction, mild pulmonary hypertension, moderate mitral and moderate tricuspid regurgitation .Chest x-ray no acute pulmonary process. UA reports positive nitrates, many bacteria, small leukocytes, urine culture pending. 09/30/2023 recently placed on 2 L nasal cannula, then increased to 4 L, ebony almonte O2 sats in the low 90s .complains of mild increased shortness of breath, which she reports started actually during the night. She has been on Lasix IV push every 12 hours, 24-hour I&O reflecting a negative fluid balance. Renal function mildly worsened, BUN 37, creatinine 1.26. Sodium 125 .Maintained on Rocephin for acute UTI. Afebrile, WBC 13.7. Blood sugars controlled. 10/01/23 yesterday developed worsening pulmonary edema, transfer to ICU. Chest x-ray at that time reported worsening of large perihilar consolidation noted greater on the right, pulmonary edema versus diffuse pneumonia. Received additional Lasix IV push, frequency increased yesterday diuresed well with 24-hour I&O reflecting a negative fluid balance. Maintained on BiPAP throughout the night, placed on 13 L nasal cannula to facilitate patient's diet intake this morning. Chest x-ray repeated this morning reporting improving bilateral areas of consolidation. Telemetry sinus rhythm, continues on Cardizem drip, tachycardic with heart rates in the 130s to 140s. Denies chest pain, palpitations. Afebrile, normal WBC. BUN 37, creatinine 1.30. Blood sugars controlled. 10/07/23 used BiPAP overnight, currently maintaining O2 sats in the 90s on 6 L nasal cannula. Chest x-ray reported bilateral pleural effusions, chest ultrasound reported right pleural effusion 6.8 cm, left pleural effusion 7.5 cm with both marked for possible thoracentesis. Diuresing on Lasix IV push with 24-hour I&O reflecting a negative fluid balance, but continues to have significant lower extremity edema. Telemetry atrial fibrillation with heart rates up to 120s. Reports palpitations, no chest pain. Evaluated by [facility] rdiology, discussing [place] with cardioversion. 10/08/23 Eliquis on hold. status post right thoracentesis with 1200 MLS turbid pleural drainage aspirated. Tolerated procedure well. Postprocedure x-ray reported no pneumothorax, bilateral lower lobe infiltrate and small left effusion. Using BiPAP at night. Currently seem on Lasix IV push with 24-hour I&O reflecting a negative fluid balance. Telemetry atrial fibrillation with heart rates ranging from 90 to 110s. Maintaining O2 in the high 90s on 4-5 L nasal cannula. Bicarb 34, BUN 41, creatinine 1.03. 10/09/2023 chest x-ray reporting bilateral lower lobe infiltrate and small left effusion/no sizable pleural effusion on the right/no pneumothorax. Status post left thoracentesis this morning with 550 MLS turbid pleural drainage aspirated. Tolerated procedure well. Postprocedure chest x-ray reported no pneumothorax. Maintained on oral antiarrhythmics ,telemetry reporting atrial fibrillation. Cardioversion pending. Afebrile, normal WBC. Continues diuresing well on Lasix IV push with 24-hour I&O reflecting a negative fluid balance. sodium 136, potassium 3.8, bicarb 37, BUN 38, creatinine 0.97. Maintaining O2 sats in the 90s on 3 L nasal cannula. 10/10/2023 Eliquis resumed yesterday after thoracentesis. Pleural fluid Cy tology pending . Telemetry atrial fibrillation, heart rate better controlled today on oral amiodarone, metoprolol, Cardizem. Cardioversion pending. BiPAP throughout the night. Denies chest pain, palpitations or shortness of breath. Maintaining O2 sats in the 90s on 2 L nasal cannula. Continues diuresing well on Lasix IV push with 24-hour I&O reflecting a negative fluid balance. Afebrile, normal WBC. Potassium 3.6, receiving replacement. BUN 36, creatinine 1.1 Objective - Vital Signs Vital signs: Vital Signs Temp 98.1 F 10/10/23 12:00 Pulse 96 10/10/23 13:00 Resp 18 10/10/23 13:00 BP 104/70 10/10/23 13:00 Pulse Ox 92 L 10/10/23 13:00 FiO2 40 10/10/23 04:00 Intake & Output 10/09/23 10/10/23 10/10/23 18:59 06:59 18:59 Intake Total 390 726 Output Total 1235 1595 860 Balance -1235 -1205 -134 Weight 136.8 kg Intake: IV 10 Invasive Line 6 10 Oral 380 726 Output: Urine 1235 1595 860 Other: Voiding Method Indwelling Catheter Indwelling Catheter Indwelling Catheter - Exam PHYSICAL EXAM: VITAL SIGNS: [As above] GENERAL: Alert and oriented 3,Sitting up in bed, NAD HEENT: Normocephalic, Conjunctivae normal. eyes normal. NECK: Supple, No JVD. CARDIOVASCULAR: S1, S2. irregular. No murmur. RESPIRATION: Unlabored, equal air entry, bilateral bases diminished with bibasilar crackles ABDOMEN: Soft, nondistended, nontender. Positive bowel sounds. LEGS: Decreasing Bilateral lower extremity edema. NERVOUS SYSTEM: Cranial N 2-12 grossly normal.No focal deficits. Strength and sensation grossly intact. Skin: Warm and dry, no rash - Labs CBC & Chem 7: 10/10/23 04:05 10/10/23 04:05 Labs: Abnormal Lab Results - Last 24 Hours (Table) 10/10/23 Range/Units 04:05 Chloride 96 L (98-107) mmol/L Carbon Dioxide 37 H (22-30) mmol/L BUN 36 H (7-17) mg/dL Creatinine 1.10 H (0.52-1.04) mg/dL Microbiology - Last 24 Hours (Table) 10/08/23 08:00 Gram Stain - Preliminary Pleural Fluid Body Fluid Culture - Preliminary Assessment and Plan Assessment: Paroxysmal Atrial fibrillation with rapid ventricular rate Secondary Hypotension Acute on chronic CHF exacerbation, diastolic dysfunction, ef 55-60%. Bilateral pleural effusions status post bilateral thoracentesis. Acute hypoxic respiratory failure secondary to the above Acute UTI, culture reporting E. coli Acute renal failure Pulmonary embolism bilaterally status post EKOS, 03/14/2022 Pulmonary hypertension Moderate mitral and tricuspid regurgitation Hypothyroidism Hypertension, history of Hyperlipidemia Osteoarthritis with history right knee placement in July 2022. Morbid obesity, BMI 46 Plan: Continue on current medication regime ,monitoring and symptomatic treatment. IV push diuretics. Anticoagulated on Eliquis- Cardioversion pending for later date .aggressive pulmonary toileting with and incentive spirometer reinforced. Close monitoring of renal function, electrolytes with repeat labs ordered for a.m. Prognosis guarded given multiple complex medical issues. The impression and plan of care has been dictated as directed. : I performed a history and examination of this patient, discussed the same with the dictator. I agree with the dictator's note ,documented as a scribe. Any additional findings or plans will be noted.
[2023-10-10] MEDS: ATORVASTATIN 80 MG TAB PO SCH (21:57)
[2023-10-10] MEDS: LORazepam 2 MG/ML INJ IV PRN (23:37)
[2023-10-11 05:59] LABS: African American GFR (CKD) 49 (>60 ml/min/1.73 sqM); Anion Gap 5 mmol/L; Blood Urea Nitrogen 34 mg/dL (7-17); Calcium 8.9 mg/dL (8.4-10.2); Carbon Dioxide 39 mmol/L (22-30); Chloride 94 mmol/L (98-107); Glucose 100 mg/dL (74-99); Non-African American GFR(CKD) 43 (>60 ml/min/1.73 sqM); Sodium 138 mmol/L (137-145)
[2023-10-11 06:12] LABS: Basophils % (A) 1 %; Eosinophils # (A) 0.2 k/uL (0-0.7); Eosinophils % (A) 2 %; HCT 40.5 % (34.0-46.0); HGB 13.1 gm/dL (11.4-16.0); Hypochromasia Slight; Lymphocytes # (A) 1.6 k/uL (1.0-4.8); Lymphocytes % (A) 22 %; MCH 31.8 pg (25.0-35.0); MCHC 32.4 g/dL (31.0-37.0); MCV 98.1 fL (80.0-100.0); Mean Platelet Volume 7.8; Monocytes # (A) 0.5 k/uL (0-1.0); Monocytes % (A) 6 %; Neutrophils # (A) 4.9 k/uL (1.3-7.7); Neutrophils % (A) 68 %; Platelet Count 266 k/uL (150-450); RBC 4.13 m/uL (3.80-5.40); RDW 13.9 % (11.5-15.5); WBC 7.3 k/uL (3.8-10.6)
[2023-10-11] MEDS: LEVOTHYROXINE 88 MCG TAB PO SCH (06:36)
[2023-10-11] MEDS: MIDODRINE 5 MG TAB PO SCH ×3 (06:36→17:33)
[2023-10-11] MEDS: ALBUTEROL NEBULIZED 2.5 MG/3 ML INHALATION PRN (07:53)
[2023-10-11] MEDS: APIXABAN 5 MG TAB PO SCH ×2 (08:03→20:36)
[2023-10-11] MEDS: POTASSIUM CHLORIDE ER 20 MEQ TAB.ER PO SCH (08:04)
[2023-10-11] MEDS: guaiFENesin 600 MG TABLET.ER PO SCH ×3 (08:04→20:36)
[2023-10-11] MEDS: AMIODARONE 200 MG TAB PO SCH ×2 (08:04→20:36)
[2023-10-11] MEDS: FUROSEMIDE 10 MG/ML 4 ML VIAL IV SCH ×2 (08:04→20:37)
[2023-10-11] MEDS: MAGNESIUM OXIDE 400 MG TAB PO SCH (08:04)
[2023-10-11] MEDS: METOPROLOL TARTRATE 50 MG TAB PO SCH ×2 (08:05→20:36)
[2023-10-11] MEDS: PANTOPRAZOLE 40 MG/10 ML VIAL IVP SCH (08:06)
--- NOTE | 2023-10-11 08:54 | P.PN ---
Subjective Progress Note Date: 10/11/23 Pulmonary consult dated 09/30/2023. 73-year-old female who presented to the emergency department on September 26, complaining of arrhythmias, and palpitations. The patient does have a history of hypertension, atrial fibrillation, hyperlipidemia, pulmonary embolism, and hypothyroidism. The patient apparently was having some lower extremity edema, shortness of breath, and orthopnea. She also had mild exertional dyspnea. The patient denied any chest pain or chest discomfort. She was seen by the ER physician, and admitted with a diagnosis of atrial fibrillation, CHF, and urinary tract infection. Today, a rapid response was called on this patient, and, R ICU charge nurse, who evaluated the patient, and thought the patient should come down to the intensive care unit, for further monitoring and management. She was given some IV Lasix, and placed on BiPAP, with settings of 16/6, and 100%. She was seen in the intensive care unit, room 255. She was sitting up in bed, with mild respiratory distress, on the BiPAP device. White count was 13.7, hemoglobin 14.5, hematocrit 44.4, and a normal platelet count. Sodium 135, potassium 3.9, chlorides 96, CO2 27, anion gap 12, BUN 37, and creatinine 1.26. N-terminal proBNP, on September 29, was 7020. The patient had chest x-rays on the and on the . Today's chest x-ray shows worsening pulmonary edema. Progress note dated 10/01/2023. 73-year-old female seen again in intensive care unit, room 255. The patient was admitted with a diagnosis of acute hypoxemic respiratory failure, secondary to CHF, as well as atrial fibrillation with RVR. The patient is currently on high flow nasal O2, at 13 L. In addition, the patient uses BiPAP intermittently at 16/6, and 60%. For her atrial fibrillation and RVR, the patient's on Cardizem 15 mg an hour. Clinically, she's starting to feel a bit better. White count 9.4, hemoglobin 14, hematocrit 43.1, and platelet count 223,000. Sodium 136, potassium 4.1, chlorides 96, CO2 29, BUN 37, and creatinine 1.30. Calcium is 9.2. Chest x-ray shows improved vascular congestion. Progress note dated 10/02/2023. 73-year-old female seen in the intensive care unit, room 255. She was admitted initially with a diagnosis of acute hypoxemic respiratory failure secondary to CHF, as well as atrial fibrillation with rapid ventricular response. The patient is currently on room air, with saturations of 91%. Unfortunately, she continues on Cardizem at 10 mg an hour, and amiodarone at 0.5 mg/m. White count 9, hemoglobin 12.8, hematocrit 39.4, within normal platelet count. Sodium 136, potassium 4.3, chloride 96, CO2 34, BUN 41, creatinine 1.12. Glucose is 112. Urine culture is showing evidence of Escherichia coli. Chest x-ray shows improvement in the patient's pulmonary vascular status. Progress note dated 10/03/2023. 73-year-old female seen today in room 255, intensive care unit. She was admitted with a diagnosis of acute hypoxemic respiratory failure, secondary to CHF, as well as atrial fibrillation, with rapid ventricular response. Currently, the patient is on 2 L of oxygen. She's on a Cardizem drip at 10 mg an hour. She's not receiving any IV fluids additionally. The patient that she is BiPAP, intermittently, with settings of 16/6, and 45%. She use BiPAP last night for about an hour and a half. She needs to be using it more frequently. White count 9.4, hemoglobin 12.9, hematocrit 39.2, and platelet count 187,000. Sodium 136, potassium 4.1, chlorides 97, CO2 32, BUN 36, creatinine 1.06. Glucose 116. Calcium is 9. Chest x-ray shows improved pulmonary vascular status. Progress note dated 10/04/2023. 73-year-old female seen again in the intensive care unit, room 255. Currently, she is on 2 L of oxygen. She's on a Cardizem drip at 10 mg an hour, to be dropped on the 5 mg an hour. She did use of BiPAP last night, for many hours, and it seemed to help. Her settings include 16/6, and 45%. She currently remains in atrial fibrillation with a rate of 128 bpm. Labs today include a sodium 138, potassium 4.1, chlorides 98, CO2 31, BUN 40, and creatinine 1.08. Glucose 116. Calcium is 9.1. No chest x-ray today. Progress note dated 10/05/2023. 73-year-old female who was sent out of the intensive care unit yesterday, and came back into the intensive care unit, sometime early this morning. She apparently developed worsening shortness of breath, was severely anxious, receive some benzodiazepine, and, required BiPAP therapy. I was called by the nurse who went to the rapid response, and we decided to move the patient back to the intensive care unit. Currently, she is seen in room 261. She is on BiPAP, with settings of 16/6 and 60%. Gases done on 100% show pO2 of 66, pCO2 61, pH is 7.28. The patient is on Cardizem 5 mg an hour. She's not receiving any additional IV fluids. We did order a chest x-ray today, and N-terminal proBNP. Labs today include a white count 13.8, hemoglobin 13, hematocrit 40.7 and a platelet count 229,000. Sodium 136, potassium 4.6, chlorides 99, CO2 28, BUN 46, creatinine 1.31. Calcium is 9. Today's chest x-rays consistent with cardiomegaly, small bilateral pleural effusions, and pulmonary vascular congestion. Progress note dated 10/06/2023. 73-year-old female readmitted to the intensive care unit, for fluid overload/CHF. The patient is currently seen today in room 261. She is currently on BiPAP, with settings of 16/6, and 50%. She's getting Cardizem 5 mg an hour. Her chest x-ray shows fluid overload, so I increased her Lasix up milligrams IV push every 8 hours. When she was taken off BiPAP yesterday for a brief period of time, she became very anxious, and very short of breath, and, desaturated, and was placed back on BiPAP. White count 9.4, hemoglobin 12.9, hematocrit 40.1, within normal platelet count. Sodium 135, potassium 4.5, chlorides 99, CO2 29, BUN 49, and creatinine 1.11. Her N-terminal proBNP from yesterday was nearly 8000. Chest x-rays consistent with CHF, with effusion. On 10/07/2023, I'm seeing the patient for a follow-up. The patient remains in the intensive care unit. Overnight she uses a BiPAP at a pressure of 16/6 with an FiO2 of 50% and this morning she is on oxygen at 6 L nasal cannula. I reviewed her chest x-ray. The patient has moderate-sized bilateral pleural effusion which is worse on the right. She remains active fibrillation. She is still somewhat tachycardic with a heart rate ranging between 100-1 20 irregular. No chest pain. Continues to have significant amount of edema lower extremities bilaterally. She has a Louis catheter in place. She is receiving Lasix 40 mg IV every 8 hours and overall fluid balance has been -2.6 L over the past 24 hours. She is currently off the Cardizem drip. Echocardiogram that was done during this current admission showed a preserved LV function, mild pulmonary hypertension, [id number] mitral regurgitation. In terms of her blood work, the patient has a cigar of 8.4, hemoglobin was 12.7 and a platelet count of 228. BUN is at 44 with a creatinine of 1.02. Her proBNP level is 7910. She remains on long-term and coagulation with Eliquis 5 mg by mouth twice a day. This will be placed on hold in anticipation for thoracentesis as the patient obviously has significant amount of pleural effusions bilaterally. She was infected with E. coli in her urine on 09/26/2023 and this was treated appropriately. She continues to be on Synthroid for hypothyroidism. Her thyroid function test during this current admission shows a TSH of 1.8 which is essentially within normal limits. 10/08/2023, the patient is comfortable on oxygen at 4 L nasal cannula. Overnight, she uses the BiPAP for a total of 4 hours. She is making good urine output. She remains on IV Lasix at a dose of 40 mg every 8 hours. Fluid balance over the past 24 hours has been in the order of -2.7 L. No significant chest pain. Shortness of breath is gradually improving. The chest x-ray shows moderate-sized bilateral pleural effusions an ultrasound of the chest confirmed the findings. In fact, the patient has a 6.8 cm pocket on the right and a 7.5 cm on the left. The plan was to proceed with a thoracentesis today. The anticoagulation is currently on hold. The patient remains in atrial fibrillation. Cardiology is also planning to undergo a cardioversion at the later stage. Sodium level is at 138, potassium levels at 3.7, bicarb is 34, BUN is at 41 and a creatinine is 1.03. Potassium levels at 3.7. The risk of 9.4 with a hemoglobin of 13.1. 10/09/2023, the patient is on 3 L of oxygen by nasal cannula. Her breathing is improved significantly. She is off the BiPAP. I performed a right-sided thoracentesis on her yesterday and a total of 1.2 L of fluid was aspirated. Repeat chest x-ray showed no evidence of any pneumothorax. There is residual left-sided pleural effusion and the patient is to undergo a left-sided thoracentesis today. Meanwhile, she remains on Lasix. She is in a negative fluid balance. She is making excellent urine output. Still has edema lower extremities bilaterally. BUN is at 38 and a creatinine of 0.9 and sodium levels of 138. The white cell count is at 8 with a hemoglobin 12.5 and a platelet count of 270. The patient remains off Eliquis for now. She remains in atrial fibrillation. She is being considered for cardioversion at the later stage. She remains on Cardizem 30 mg by mouth every 8 hours and she is also on metoprolol 50 mg by mouth 3 times a day. Anticoagulation is on hold. 10/10/2023, the patient is doing extremely well and she is currently on 2 L of oxygen by nasal cannula. She underwent bilateral thoracentesis. The fluid on the right was 1.2 L and the fluid on the left was 500 mL. The patient is doing much better since. Her chest x-ray shows minimal atelectatic changes in the left lung base. Her breathing is comfortable. She remains on IV Lasix. Negative fluid balance. Her cardiac rhythm is still itchy fibrillation. She is back on anticoagulation and she is being considered for cardioversion within next 24 hours. Cardiology is on the case. Blood work from today shows a creatinine of 1.0 with a BUN of 36. Sodium is at 138. Potassium is at 3.6. The white cell count of 5.9 with a hemoglobin of 13.1. No other significant events otherwise. In terms of rate control, she is on Cardizem 30 mg by mouth every 8 hours and metoprolol 50 mg by mouth 3 times a day. Potassium is being replaced. She is also on amiodarone 400 mg by mouth twice a day. 10/11/2023, the patient is on room air oxygen. She is doing very well. No significant shortness of breath. Some residual lower extremity edema. -2.6 L fluid balance over the past 24 hours while being on IV Lasix. Creatinine is up to 1.24 with a BUN of 34. Sodium levels is 138. Potassium levels at 4. The patient is awake and alert and communicating. She denies the BiPAP overnight and currently she is on room air oxygen. Arteries under better control. The patient was taken off the Cardizem, she remains on amiodarone and metoprolol doses increase of 200 mg twice a day and the patient is on anticoagulation with Eliquis. No plans for cardioversion at this point in time. She is improving. She is a selective overflow. Objective - Vital Signs Vital signs: Vital Signs Temp 97.5 F L 10/11/23 04:00 Pulse 108 H 10/11/23 08:01 Resp 12 10/11/23 04:00 BP 84/66 10/11/23 04:00 Pulse Ox 94 L 10/11/23 07:51 FiO2 40 10/11/23 00:15 Intake & Output 10/10/23 10/11/23 10/11/23 18:59 06:59 18:59 Intake Total 726 Output Total 940 900 Balance -214 -900 Weight 135.5 kg Intake: Oral 726 Output: Urine 940 900 Other: Voiding Method Indwelling Catheter Indwelling Catheter - Exam awake and alert and currently she is on RA , no signs of any significant respiratory distress and she is communicating. Head exam was generally normal. There was no scleral icterus or corneal arcus. Mucous membranes were moist. HEENT examination is grossly unremarkable. Neck supple. Full range of motion. No adenopathy thyromegaly positive for JVD is bilaterally Cardiovascular examination reveals an irregular rhythm and rate. S1-S2 normal. No S3 or S4. No discernible murmur noted. Heart sounds are distant. Lungs are clear Abdomen soft bowel sounds are heard. No masses or tenderness. Extremities are intact. No cyanosis or clubbing. Mild lower extremity edema. Skin is without rash or lesion. Neurologic examination is brief but nonfocal. - Labs CBC & Chem 7: 10/11/23 05:23 10/11/23 05:23 Labs: Abnormal Lab Results - Last 24 Hours (Table) 10/11/23 Range/Units 05:23 Chloride 94 L (98-107) mmol/L Carbon Dioxide 39 H (22-30) mmol/L BUN 34 H (7-17) mg/dL Creatinine 1.24 H (0.52-1.04) mg/dL Glucose 100 H (74-99) mg/dL Microbiology - Last 24 Hours (Table) 10/08/23 08:00 Gram Stain - Preliminary Pleural Fluid Body Fluid Culture - Preliminary Assessment and Plan Plan: Acute hypoxemic respiratory failure, secondary to worsening congestive heart failure. Controlled and the patient is currently on room air oxygen Bilateral pleural effusion post bilateral thoracentesis History of chronic atrial fibrillation, with rapid ventricular response. The patient is currently on anticoagulation with Eliquis. Patient is also on metoprolol 100 mg twice a day. She is also on amiodarone 400 mg by mouth twice a day. Her thyroid function tests are essentially within normal limits. She is back on anticoagulation with Eliquis. Escherichia coli urinary tract infection, treated History of hypertension. History of hyperlipidemia. History of pulmonary embolism. History of hypothyroidism. History of osteoarthritis. Plan: Completed bilateral thoracentesis and this included a transudate Continue diuretics with Lasix 40 mg IV every 12 hours Monitor fluid balance and electrolytes, the patient is a negative fluid balance Monitor renal function Transfer to [facility] [address].
--- NOTE | 2023-10-11 09:13 | P.PN ---
Subjective Progress Note Date: 10/11/23 The patient is a 73-year-old female who follows in the office with Dr. Sylvester. She presented to the hospital with shortness of breath and palpitations. She was found to be in A. fib with RVR as well as diastolic heart failure. The patient has had poorly controlled heart rates throughout her admission with secondary hypotension. She was recently started on midodrine. Echocardiogram reveals preserved systolic function with moderate MR and mild to moderate TR. The patient underwent bilateral thoracenteses, significantly improving her shortness of breath as well as heart rates. Over the last 24 hours she has been weaning off her midodrine. She also remains reasonably well rate controlled after discontinuing the Cardizem and increasing her beta jorge alberto. Patient was interviewed and examined resting in bed. She denies any chest pain or chest pressure. Her breathing continues to improve. She currently denies any pain or discomfort. GENERAL: Well-appearing, well-nourished obese female in no acute distress. NECK: Supple without JVD or thyromegaly. LUNGS: Breath sounds diminished to auscultation bilaterally. Respiration equal and unlabored. Crackles noted in the right lower lobe HEART: Irregular rate and rhythm without murmurs, rubs or gallops. S1 and S2 heard. EXTREMITIES: Normal range of motion, +2 pitting bilateral lower extremity edema. No clubbing or cyanosis. TELEMETRY: Persistent atrial fibrillation. Heart rates averaging in the 90s to low 100s LABS: WBC 7.3, hemoglobin 13.1, hematocrit 40.5, platelet 266, sodium 138, potassium 4.0, BUN 34, creatinine 1.24 IMPRESSION: A. fib with RVR Secondary hypotension Diastolic heart failure History of pulmonary emboli Bilateral pleural effusions PLAN Continue midodrine only as needed Encourage ambulation and downgrade to stepdown unit. Further recommendations to be based on clinical course I am dictating on behalf of Dr Jani Ayala's history/physical and assessment/plan. Objective - Vital Signs Vital signs: Vital Signs Temp 97.5 F L 10/11/23 04:00 Pulse 108 H 10/11/23 08:01 Resp 12 10/11/23 04:00 BP 84/66 10/11/23 04:00 Pulse Ox 94 L 10/11/23 07:51 FiO2 40 10/11/23 00:15 Intake & Output 10/10/23 10/11/23 10/11/23 18:59 06:59 18:59 Intake Total 726 Output Total 940 900 Balance -214 -900 Weight 135.5 kg Intake: Oral 726 Output: Urine 940 900 Other: Voiding Method Indwelling Catheter Indwelling Catheter - Labs CBC & Chem 7: 10/11/23 05:23 10/11/23 05:23 Labs: Abnormal Lab Results - Last 24 Hours (Table) 10/11/23 Range/Units 05:23 Chloride 94 L (98-107) mmol/L Carbon Dioxide 39 H (22-30) mmol/L BUN 34 H (7-17) mg/dL Creatinine 1.24 H (0.52-1.04) mg/dL Glucose 100 H (74-99) mg/dL Microbiology - Last 24 Hours (Table) 10/08/23 08:00 Gram Stain - Preliminary Pleural Fluid Body Fluid Culture - Preliminary
[2023-10-11] MEDS: ONDANSETRON 4 MG/2 ML VIAL IVP PRN (14:40)
--- NOTE | 2023-10-11 15:00 | P.PN ---
Subjective Progress Note Date: 10/11/23 H&P Date: 09/27/23 Chief Complaint: Palpitations, dyspnea This is a 73-year-old female with past medical history significant for atrial fibrillation, PE, status post EKOS 02/2022, hypertension, hypothyroidism admitted with atrial fibrillation with RVR and multiple other medical issues.Evaluated and treated by cardiology. Presented to the hospital with complaints of heart palpitations, hypertension , shortness of breath 1 week.Positive orthopnea , reports sleeping sitting up in a recliner as well as living downstairs in her home to avoid climbing stairs. Cardizem drip initiated, rate improving. Cardiology consult in place. Troponins negative 3 , proBNP pending .EKG rate atrial fibrillation with RVR heart rate 132 . Echo reported normal LV f unction, mild pulmonary hypertension, moderate mitral and moderate tricuspid regurgitation .Chest x-ray no acute pulmonary process. UA reports positive nitrates, many bacteria, small leukocytes, urine culture pending. 09/30/2023 recently placed on 2 L nasal cannula, then increased to 4 L, ebony [place] O2 sats in the low 90s .complains of mild increased shortness of breath, which she reports started actually during the night. She has been on Lasix IV push every 12 hours, 24-hour I&O reflecting a negative fluid balance. Renal function mildly worsened, BUN 37, creatinine 1.26. Sodium 125 .Maintained on Rocephin for acute UTI. Afebrile, WBC 13.7. Blood sugars controlled. 10/01/23 yesterday developed worsening pulmonary edema, transfer to ICU. Chest x-ray at that time reported worsening of large perihilar consolidation noted greater on the right, pulmonary edema versus diffuse pneumonia. Received additional Lasix IV push, frequency increased yesterday diuresed well with 24-hour I&O reflecting a negative fluid balance. Maintained on BiPAP throughout the night, placed on 13 L nasal cannula to facilitate patient's diet intake this morning. Chest x-ray repeated this morning reporting improving bilateral areas of consolidation. Telemetry sinus rhythm, continues on Cardizem drip, tachycardic with heart rates in the 130s to 140s. Denies chest pain, palpitations. Afebrile, normal WBC. BUN 37, creatinine 1.30. Blood sugars controlled. 10/07/23 used BiPAP overnight, currently maintaining O2 sats in the 90s on 6 L nasal cannula. Chest x-ray reported bilateral pleural effusions, chest ultrasound reported right pleural effusion 6.8 cm, left pleural effusion 7.5 cm with both marked for possible thoracentesis. Diuresing on Lasix IV push with 24-hour I&O reflecting a negative fluid balance, but continues to have significant lower extremity edema. Telemetry atrial fibrillation with heart rates up to 120s. Reports palpitations, no chest pain. Evaluated by ca rdiology, discussing RICO with cardioversion. 10/08/23 Eliquis on hold. status post right thoracentesis with 1200 MLS turbid pleural drainage aspirated. Tolerated procedure well. Postprocedure x-ray reported no pneumothorax, bilateral lower lobe infiltrate and small left effusion. Using BiPAP at night. Currently seem on Lasix IV push with 24-hour I&O reflecting a negative fluid balance. Telemetry atrial fibrillation with heart rates ranging from 90 to 110s. Maintaining O2 in the high 90s on 4-5 L nasal cannula. Bicarb 34, BUN 41, creatinine 1.03. 10/09/2023 chest x-ray reporting bilateral lower lobe infiltrate and small left effusion/no sizable pleural effusion on the right/no pneumothorax. Status post left thoracentesis this morning with 550 MLS turbid pleural drainage aspirated. Tolerated procedure well. Postprocedure chest x-ray reported no pneumothorax. Maintained on oral antiarrhythmics ,telemetry reporting atrial fibrillation. Cardioversion pending. Afebrile, normal WBC. Continues diuresing well on Lasix IV push with 24-hour I&O reflecting a negative fluid balance. sodium 136, potassium 3.8, bicarb 37, BUN 38, creatinine 0.97. Maintaining O2 sats in the 90s on 3 L nasal cannula. 10/10/2023 Eliquis resumed yesterday after thoracentesis. Pleural fluid Cy tology pending . Telemetry atrial fibrillation, heart rate better controlled today on oral amiodarone, metoprolol, Cardizem. Cardioversion pending. BiPAP throughout the night. Denies chest pain, palpitations or shortness of breath. Maintaining O2 sats in the 90s on 2 L nasal cannula. Continues diuresing well on Lasix IV push with 24-hour I&O reflecting a negative fluid balance. Afebrile, normal WBC. Potassium 3.6, receiving replacement. BUN 36, creatinine 1.1 10/11/2023 BiPAP for short while during the night. Currently maintaining O2 sat in the 90s on room air. Continues diuresing well on Lasix IV push with 24-hour I&O reflecting a negative fluid balance. BUN 34, creatinine 1.24. Pleural fluid cytology pending. Cardizem discontinued, continues on amiodarone with metoprolol increased, A. fib controlled. Afebrile, normal WBC. Reports she ambulated yesterday, tolerated exertion well, O2 sat on room air after ambulation 95%. Objective - Vital Signs Vital signs: Vital Signs Temp 98 F 10/11/23 12:00 Pulse 95 10/11/23 12:00 Resp 16 10/11/23 12:00 BP 102/56 10/11/23 12:00 Pulse Ox 94 L 10/11/23 12:00 FiO2 40 10/11/23 00:15 Intake & Output 10/10/23 10/11/23 10/11/23 18:59 06:59 18:59 Intake Total 726 800 Output Total 940 900 60 Balance -214 -900 740 Weight 135.5 kg Intake: Oral 726 800 Output: Urine 940 900 60 Other: Voiding Method Indwelling Catheter Indwelling Catheter - Exam PHYSICAL EXAM: VITAL SIGNS: [As above] GENERAL: Alert and oriented 3,Sitting up in bed, NAD HEENT: Normocephalic, Conjunctivae normal. eyes normal. NECK: Supple, No JVD. CARDIOVASCULAR: S1, S2. irregular. No murmur. RESPIRATION: Unlabored, equal air entry, CTA. ABDOMEN: Soft, nondistended, nontender. +BS LEGS: Mild bilateral lower extremity edema. NERVOUS SYSTEM: Cranial N 2-12 grossly normal.No focal deficits. Strength and sensation grossly intact. Skin: Warm and dry, no rash - Labs CBC & Chem 7: 10/11/23 05:23 10/11/23 05:23 Labs: Abnormal Lab Results - Last 24 Hours (Table) 10/11/23 Range/Units 05:23 Chloride 94 L (98-107) mmol/L Carbon Dioxide 39 H (22-30) mmol/L BUN 34 H (7-17) mg/dL Creatinine 1.24 H (0.52-1.04) mg/dL Glucose 100 H (74-99) mg/dL Microbiology - Last 24 Hours (Table) 10/08/23 08:00 Gram Stain - Preliminary Pleural Fluid Body Fluid Culture - Preliminary Assessment and Plan Assessment: Paroxysmal Atrial fibrillation with rapid ventricular rate Secondary Hypotension Acute on chronic CHF exacerbation, diastolic dysfunction, ef 55-60%. Bilateral pleural effusions status post bilateral thoracentesis. Acute hypoxic respiratory failure secondary to the above Acute UTI, culture reporting E. coli Acute renal failure Pulmonary embolism bilaterally status post EKOS, 03/14/2022 Pulmonary hypertension Moderate mitral and tricuspid regurgitation Hypothyroidism Hypertension, history of Hyperlipidemia Osteoarthritis with history right knee placement in July 2022. Morbid obesity, BMI 46 Plan: Continue on current medication regime ,monitoring and symptomatic treatment. Anticoagulated on Eliquis- potential cardioversion to be discussed outpatient in clinic with cardiology .Maintain aggressive pulmonary toileting with and incentive spirometer reinforced, IV push diuretics Close monitoring of renal function, electrolytes with repeat labs ordered for a.m. increase ambulation as tolerated. Cleared for transfer out of ICU to stepdown per curriculum development coordinator. The impression and plan of care has been dictated as directed. : I performed a history and examination of this patient, discussed the same with the dictator. I agree with the dictator's note ,documented as a scribe. Any additional findings or plans will be noted.
[2023-10-11] MEDS: ATORVASTATIN 80 MG TAB PO SCH (20:36)
[2023-10-11] MEDS: LORazepam 2 MG/ML INJ IV PRN (21:47)
[2023-10-12] MEDS: LORazepam 2 MG/ML INJ IV PRN ×2 (04:45→11:58)
[2023-10-12] MEDS: ALBUTEROL NEBULIZED 2.5 MG/3 ML INHALATION PRN ×2 (04:50→09:13)
[2023-10-12] MEDS: LEVOTHYROXINE 88 MCG TAB PO SCH (07:07)
[2023-10-12] MEDS: MIDODRINE 5 MG TAB PO SCH (07:07)
--- NOTE | 2023-10-12 08:48 | XR ---
EXAMINATION TYPE: XR chest 1V portable DATE OF EXAM: 10/12/2023 Comparison: 10/09/2023 Clinical History: 73-year-old female SOB Findings: Low lung volumes with crowded vascular markings. Interstitial opacities are increasing with developme nt of patchy lower lung opacities as well. Heart upper limits of normal in size. Impression: Worsening interstitial lung disease and development of patchy bibasilar opacities. Consider interstit ial pneumonitis, aspiration, or developing pulmonary edema.
--- NOTE | 2023-10-12 09:21 | P.PN ---
Subjective Progress Note Date: 10/12/23 Pulmonary consult dated 09/30/2023. 73-year-old female who presented to the emergency department on September 26, complaining of arrhythmias, and palpitations. The patient does have a history of hypertension, atrial fibrillation, hyperlipidemia, pulmonary embolism, and hypothyroidism. The patient apparently was having some lower extremity edema, shortness of breath, and orthopnea. She also had mild exertional dyspnea. The patient denied any chest pain or chest discomfort. She was seen by the ER physician, and admitted with a diagnosis of atrial fibrillation, CHF, and urinary tract infection. Today, a rapid response was called on this patient, and, R ICU charge nurse, who evaluated the patient, and thought the patient should come down to the intensive care unit, for further monitoring and management. She was given some IV Lasix, and placed on BiPAP, with settings of 16/6, and 100%. She was seen in the intensive care unit, room 255. She was sitting up in bed, with mild respiratory distress, on the BiPAP device. White count was 13.7, hemoglobin 14.5, hematocrit 44.4, and a normal platelet count. Sodium 135, potassium 3.9, chlorides 96, CO2 27, anion gap 12, BUN 37, and creatinine 1.26. N-terminal proBNP, on September 29, was 7020. The patient had chest x-rays on the and on the . Today's chest x-ray shows worsening pulmonary edema. Progress note dated 10/01/2023. 73-year-old female seen again in intensive care unit, room 255. The patient was admitted with a diagnosis of acute hypoxemic respiratory failure, secondary to CHF, as well as atrial fibrillation with RVR. The patient is currently on high flow nasal O2, at 13 L. In addition, the patient uses BiPAP intermittently at 16/6, and 60%. For her atrial fibrillation and RVR, the patient's on Cardizem 15 mg an hour. Clinically, she's starting to feel a bit better. White count 9.4, hemoglobin 14, hematocrit 43.1, and platelet count 223,000. Sodium 136, potassium 4.1, chlorides 96, CO2 29, BUN 37, and creatinine 1.30. Calcium is 9.2. Chest x-ray shows improved vascular congestion. Progress note dated 10/02/2023. 73-year-old female seen in the intensive care unit, room 255. She was admitted initially with a diagnosis of acute hypoxemic respiratory failure secondary to CHF, as well as atrial fibrillation with rapid ventricular response. The patient is currently on room air, with saturations of 91%. Unfortunately, she continues on Cardizem at 10 mg an hour, and amiodarone at 0.5 mg/m. White count 9, hemoglobin 12.8, hematocrit 39.4, within normal platelet count. Sodium 136, potassium 4.3, chloride 96, CO2 34, BUN 41, creatinine 1.12. Glucose is 112. Urine culture is showing evidence of Escherichia coli. Chest x-ray shows improvement in the patient's pulmonary vascular status. Progress note dated 10/03/2023. 73-year-old female seen today in room 255, intensive care unit. She was admitted with a diagnosis of acute hypoxemic respiratory failure, secondary to CHF, as well as atrial fibrillation, with rapid ventricular response. Currently, the patient is on 2 L of oxygen. She's on a Cardizem drip at 10 mg an hour. She's not receiving any IV fluids additionally. The patient that she is BiPAP, intermittently, with settings of 16/6, and 45%. She use BiPAP last night for about an hour and a half. She needs to be using it more frequently. White count 9.4, hemoglobin 12.9, hematocrit 39.2, and platelet count 187,000. Sodium 136, potassium 4.1, chlorides 97, CO2 32, BUN 36, creatinine 1.06. Glucose 116. Calcium is 9. Chest x-ray shows improved pulmonary vascular status. Progress note dated 10/04/2023. 73-year-old female seen again in the intensive care unit, room 255. Currently, she is on 2 L of oxygen. She's on a Cardizem drip at 10 mg an hour, to be dropped on the 5 mg an hour. She did use of BiPAP last night, for many hours, and it seemed to help. Her settings include 16/6, and 45%. She currently remains in atrial fibrillation with a rate of 128 bpm. Labs today include a sodium 138, potassium 4.1, chlorides 98, CO2 31, BUN 40, and creatinine 1.08. Glucose 116. Calcium is 9.1. No chest x-ray today. Progress note dated 10/05/2023. 73-year-old female who was sent out of the intensive care unit yesterday, and came back into the intensive care unit, sometime early this morning. She apparently developed worsening shortness of breath, was severely anxious, receive some benzodiazepine, and, required BiPAP therapy. I was called by the nurse who went to the rapid response, and we decided to move the patient back to the intensive care unit. Currently, she is seen in room 261. She is on BiPAP, with settings of 16/6 and 60%. Gases done on 100% show pO2 of 66, pCO2 61, pH is 7.28. The patient is on Cardizem 5 mg an hour. She's not receiving any additional IV fluids. We did order a chest x-ray today, and N-terminal proBNP. Labs today include a white count 13.8, hemoglobin 13, hematocrit 40.7 and a platelet count 229,000. Sodium 136, potassium 4.6, chlorides 99, CO2 28, BUN 46, creatinine 1.31. Calcium is 9. Today's chest x-rays consistent with cardiomegaly, small bilateral pleural effusions, and pulmonary vascular congestion. Progress note dated 10/06/2023. 73-year-old female readmitted to the intensive care unit, for fluid overload/CHF. The patient is currently seen today in room 261. She is currently on BiPAP, with settings of 16/6, and 50%. She's getting Cardizem 5 mg an hour. Her chest x-ray shows fluid overload, so I increased her Lasix up milligrams IV push every 8 hours. When she was taken off BiPAP yesterday for a brief period of time, she became very anxious, and very short of breath, and, desaturated, and was placed back on BiPAP. White count 9.4, hemoglobin 12.9, hematocrit 40.1, within normal platelet count. Sodium 135, potassium 4.5, chlorides 99, CO2 29, BUN 49, and creatinine 1.11. Her N-terminal proBNP from yesterday was nearly 8000. Chest x-rays consistent with CHF, with effusion. On 10/07/2023, I'm seeing the patient for a follow-up. The patient remains in the intensive care unit. Overnight she uses a BiPAP at a pressure of 16/6 with an FiO2 of 50% and this morning she is on oxygen at 6 L nasal cannula. I reviewed her chest x-ray. The patient has moderate-sized bilateral pleural effusion which is worse on the right. She remains active fibrillation. She is still somewhat tachycardic with a heart rate ranging between 100-1 20 irregular. No chest pain. Continues to have significant amount of edema lower extremities bilaterally. She has a Louis catheter in place. She is receiving Lasix 40 mg IV every 8 hours and overall fluid balance has been -2.6 L over the past 24 hours. She is currently off the Cardizem drip. Echocardiogram that was done during this current admission showed a preserved LV function, mild pulmonary hypertension, [id number] mitral regurgitation. In terms of her blood work, the patient has a cigar of 8.4, hemoglobin was 12.7 and a platelet count of 228. BUN is at 44 with a creatinine of 1.02. Her proBNP level is 7910. She remains on long-term and coagulation with Eliquis 5 mg by mouth twice a day. This will be placed on hold in anticipation for thoracentesis as the patient obviously has significant amount of pleural effusions bilaterally. She was infected with E. coli in her urine on 09/26/2023 and this was treated appropriately. She continues to be on Synthroid for hypothyroidism. Her thyroid function test during this current admission shows a TSH of 1.8 which is essentially within normal limits. 10/08/2023, the patient is comfortable on oxygen at 4 L nasal cannula. Overnight, she uses the BiPAP for a total of 4 hours. She is making good urine output. She remains on IV Lasix at a dose of 40 mg every 8 hours. Fluid balance over the past 24 hours has been in the order of -2.7 L. No significant chest pain. Shortness of breath is gradually improving. The chest x-ray shows moderate-sized bilateral pleural effusions an ultrasound of the chest confirmed the findings. In fact, the patient has a 6.8 cm pocket on the right and a 7.5 cm on the left. The plan was to proceed with a thoracentesis today. The anticoagulation is currently on hold. The patient remains in atrial fibrillation. Cardiology is also planning to undergo a cardioversion at the later stage. Sodium level is at 138, potassium levels at 3.7, bicarb is 34, BUN is at 41 and a creatinine is 1.03. Potassium levels at 3.7. The risk of 9.4 with a hemoglobin of 13.1. 10/09/2023, the patient is on 3 L of oxygen by nasal cannula. Her breathing is improved significantly. She is off the BiPAP. I performed a right-sided thoracentesis on her yesterday and a total of 1.2 L of fluid was aspirated. Repeat chest x-ray showed no evidence of any pneumothorax. There is residual left-sided pleural effusion and the patient is to undergo a left-sided thoracentesis today. Meanwhile, she remains on Lasix. She is in a negative fluid balance. She is making excellent urine output. Still has edema lower extremities bilaterally. BUN is at 38 and a creatinine of 0.9 and sodium levels of 138. The white cell count is at 8 with a hemoglobin 12.5 and a platelet count of 270. The patient remains off Eliquis for now. She remains in atrial fibrillation. She is being considered for cardioversion at the later stage. She remains on Cardizem 30 mg by mouth every 8 hours and she is also on metoprolol 50 mg by mouth 3 times a day. Anticoagulation is on hold. 10/10/2023, the patient is doing extremely well and she is currently on 2 L of oxygen by nasal cannula. She underwent bilateral thoracentesis. The fluid on the right was 1.2 L and the fluid on the left was 500 mL. The patient is doing much better since. Her chest x-ray shows minimal atelectatic changes in the left lung base. Her breathing is comfortable. She remains on IV Lasix. Negative fluid balance. Her cardiac rhythm is still itchy fibrillation. She is back on anticoagulation and she is being considered for cardioversion within next 24 hours. Cardiology is on the case. Blood work from today shows a creatinine of 1.0 with a BUN of 36. Sodium is at 138. Potassium is at 3.6. The white cell count of 5.9 with a hemoglobin of 13.1. No other significant events otherwise. In terms of rate control, she is on Cardizem 30 mg by mouth every 8 hours and metoprolol 50 mg by mouth 3 times a day. Potassium is being replaced. She is also on amiodarone 400 mg by mouth twice a day. 10/11/2023, the patient is on room air oxygen. She is doing very well. No significant shortness of breath. Some residual lower extremity edema. -2.6 L fluid balance over the past 24 hours while being on IV Lasix. Creatinine is up to 1.24 with a BUN of 34. Sodium levels is 138. Potassium levels at 4. The patient is awake and alert and communicating. She denies the BiPAP overnight and currently she is on room air oxygen. Arteries under better control. The patient was taken off the Cardizem, she remains on amiodarone and metoprolol doses increase of 200 mg twice a day and the patient is on anticoagulation with Eliquis. No plans for cardioversion at this point in time. She is improving. She is a selective overflow. On 10/12/2023, the patient is found to be short of breath. After doing significant progress and being on room air oxygen, earlier last night, at around 10 PM, the patient became progressively more hypoxic. Initially she required 2 L and later on 5 L and subsequently she was placed on a BiPAP and she is currently on a BiPAP at a pressure of 16/6 cm water with an FiO2 of 45%. Her breathing is labored at this point in time. Note that the patient was being treated for the Cyst heart failure and fluid overload. She was being treated with Lasix. The patient was producing excellent urine output and she also had bilateral thoracentesis was further optimized her volume status and fluid balance. The patient denies having any chest pain. On examination, she has diminished breath sounds bilaterally along with some bibasilar crackles and breath sounds are slightly diminished on the right base compared to the left. Chest x-ray shows worsening in the interstitial infiltrates bilaterally and some limited patchy bibasilar opacities. No reported aspiration. The white cell count remains low at 7.3. Hemoglobin is at 13.1. BUN is 34 with a creatinine 1.24 and a sodium level is at 135. She is afebrile at this point in time. The patient has chronic atrial fibrillation and her current cardiac rhythm is sinus. Objective - Vital Signs Vital signs: Vital Signs Temp 97.2 F L 10/12/23 04:00 Pulse 56 L 10/12/23 06:00 Resp 18 10/12/23 06:00 BP 97/64 10/12/23 06:00 Pulse Ox 95 10/12/23 06:00 FiO2 45 10/12/23 09:10 Intake & Output 10/11/23 10/12/23 10/12/23 18:59 06:59 18:59 Intake Total 800 Output Total 60 700 Balance 740 -700 Weight 135.4 kg Intake: Oral 800 Output: Urine 60 700 Other: Voiding Method Toilet External Catheter # Voids 1 # Bowel Movements 1 - Exam awake and alert and currently she is currently on BiPAP at a pressure of 16/6 cm of water with an FiO2 of 45%. Breathing is somewhat labored and the patient is tachypneic and the respiratory rate is in the mid 30s. She is slightly anxious at this point in time. Head exam was generally normal. There was no scleral icterus or corneal arcus. Mucous membranes were moist. HEENT examination is grossly unremarkable. Neck supple. Full range of motion. No adenopathy thyromegaly positive for JVD is bilaterally Cardiovascular examination reveals an irregular rhythm and rate. S1-S2 normal. No S3 or S4. No discernible murmur noted. Heart sounds are distant. Lungs are clear Abdomen soft bowel sounds are heard. No masses or tenderness. Extremities are intact. No cyanosis or clubbing. Mild lower extremity edema. Skin is without rash or lesion. Neurologic examination is brief but nonfocal. - Labs CBC & Chem 7: 10/11/23 05:23 10/11/23 05:23 Labs: Microbiology - Last 24 Hours (Table) 10/08/23 08:00 Gram Stain - Preliminary Pleural Fluid Body Fluid Culture - Preliminary Assessment and Plan Plan: Acute hypoxemic respiratory failure, secondary to worsening congestive heart failure. Controlled and the patient is currently on BiPAP at a pressure of 16/6 and is also worsening interstitial infiltrates bilaterally. There be related to decompensated CHF. Bilateral pleural effusion post bilateral thoracentesis History of chronic atrial fibrillation, with rapid ventricular response. The patient converted to sinus rhythm. The patient is currently on anticoagulation with Eliquis. Patient is also on metoprolol 100 mg twice a day. She is also on amiodarone 400 mg by mouth twice a day. Her thyroid function tests are essentially within normal limits. She is back on anticoagulation with Eliquis. Escherichia coli urinary tract infection, treated History of hypertension. History of hyperlipidemia. History of pulmonary embolism. History of hypothyroidism. History of osteoarthritis. Plan: Place The patient on Gilda palumboip at 5 mg an hour Continue the BiPAP for now the same setting And panic antibiotic coverage with IV cefepime Continue amiodarone and beta blockers and the patient is currently on metoprolol Continue anticoagulation with Eliquis Placed the patient back on monitoring keep the patient ICU for now We'll continue to follow. Cancer of the transferred to 3 S. Discontinue the midodrine.
[2023-10-12] MEDS: POTASSIUM CHLORIDE ER 20 MEQ TAB.ER PO SCH (09:56)
[2023-10-12] MEDS: APIXABAN 5 MG TAB PO SCH ×2 (09:56→21:41)
[2023-10-12] MEDS: METOPROLOL TARTRATE 50 MG TAB PO SCH ×2 (09:56→20:13)
[2023-10-12] MEDS: AMIODARONE 200 MG TAB PO SCH ×2 (09:56→20:13)
[2023-10-12] MEDS: guaiFENesin 600 MG TABLET.ER PO SCH ×2 (09:57→19:57)
[2023-10-12] MEDS: CEFEPIME 2 GM in SODIUM CHLORIDE 0.9% 100 ML IVPB SCH ×2 (09:57→21:40)
[2023-10-12] MEDS: PANTOPRAZOLE 40 MG/10 ML VIAL IVP SCH (09:57)
[2023-10-12] MEDS: MAGNESIUM OXIDE 400 MG TAB PO SCH (09:57)
[2023-10-12] MEDS: methylPREDNISolone SOD SUCCI 40 MG/ML 1 ML VIAL IV SCH ×2 (09:58→18:42)
[2023-10-12] MEDS: FUROSEMIDE 100 MG in SODIUM CHLORIDE 0.9% 90 ML IV SCH (10:31)
--- NOTE | 2023-10-12 12:19 | P.PN ---
Subjective Progress Note Date: 10/12/23 This is Cedrick Ramachandran NP, I'm dictating on behalf of Dr. Ayala's H&P and A&P. Patient was interviewed and examined. Patient is a pleasant 73-year-old female who presented to the hospital with shortness of breath and palpitations. She was found to be in A. fib with RVR as well as diastolic heart failure. Patient was feeling better yesterday, however this morning reports that she's more short of breath, and is found in the bed on a BiPAP which she states does make her feel much better. Chest x-ray today appears worse than yesterday. It was originally felt the patient could be downgraded and transferred to the stepdown unit, however with this significant change in her clinical status we feel she should remain in ICU until her respiratory status improves. GENERAL: Well-appearing, well-nourished and in no acute distress. NECK: Supple without JVD or thyromegaly. LUNGS: Breath sounds clear to auscultation bilaterally. Respiration equal and unlabored. No wheezes, rales or rhonchi. HEART: Regular rate and rhythm without murmurs, rubs or gallops. S1 and S2 heard. EXTREMITIES: Normal range of motion, no edema. No clubbing or cyanosis. Peripheral pulses intact and strong. VITALS: Temp 97.2, pulse 64, respirations 31, blood pressure 97/64, O2 saturation 93% on BiPAP at 45% FiO2 TELEMETRY: Normal sinus rhythm LABS: White count 7.3, hemoglobin 13.1, platelets 266, sodium 138, potassium 4.0, B1 34, creatinine 1.24, calcium 8.9 IMPRESSION: 1. A. fib with RVR 2. Secondary hypertension 3. Diastolic heart failure 4. History of pulmonary emboli 5. Bilateral pleural effusions PLAN: Discontinue midodrine Begin Lasix drip Keep patient in ICU Further recommendations based on patient's clinical course. Objective - Vital Signs Vital signs: Vital Signs Temp 97.2 F L 10/12/23 04:00 Pulse 71 10/12/23 09:23 Resp 30 H 10/12/23 09:23 BP 97/64 10/12/23 06:00 Pulse Ox 93 L 10/12/23 09:13 FiO2 45 10/12/23 11:45 Intake & Output 10/11/23 10/12/23 10/12/23 18:59 06:59 18:59 Intake Total 800 Output Total 60 700 Balance 740 -700 Weight 135.4 kg Intake: Oral 800 Output: Urine 60 700 Other: Voiding Method Toilet External Catheter # Voids 1 # Bowel Movements 1 - Labs CBC & Chem 7: 10/11/23 05:23 10/11/23 05:23 Labs: Microbiology - Last 24 Hours (Table) 10/08/23 08:00 Gram Stain - Final Pleural Fluid Body Fluid Culture - Final
[2023-10-12 14:45] LABS: African American GFR (CKD) 22 (>60 ml/min/1.73 sqM); Anion Gap 14 mmol/L; Blood Urea Nitrogen 49 mg/dL (7-17); Calcium 9.5 mg/dL (8.4-10.2); Carbon Dioxide 26 mmol/L (22-30); Chloride 94 mmol/L (98-107); Glucose 154 mg/dL (74-99); Non-African American GFR(CKD) 19 (>60 ml/min/1.73 sqM); Sodium 134 mmol/L (137-145)
[2023-10-12 14:55] LABS: ABG Base Excess 3.9 mmol/L; ABG HCO3 28 mmol/L (21-25); ABG Oxygen Saturation 88.6 % (94-97); ABG PCO2 43 mmHg (35-45); ABG PH 7.42 (7.35-7.45); ABG PO2 60 mmHg (83-108); ABG TCO2 30 mmol/L (19-24); Allen Test Performed? Yes
[2023-10-12 15:10] LABS: Potassium 6.4 mmol/L (3.5-5.1)
[2023-10-12] MEDS ORDERED: SODIUM BICARB 8.4% 50 ML SYR (1 MEQ/ML) IV STA ×2 (15:22→16:24)
[2023-10-12] MEDS ORDERED: CALCIUM GLUCONATE IN NACL 1 GM in SALINE 1 100ML.BAG IVPB ONE (15:26)
[2023-10-12] MEDS ORDERED: CALCIUM CHLORIDE 100 MG/ML 10 ML SYRINGE IVP ONE (15:27)
[2023-10-12] MEDS ORDERED: CISATRACURIUM 2 MG/ML 5 ML VIAL IV ONE (15:37)
[2023-10-12] MEDS ORDERED: INSULIN REGULAR 100 UNIT/ML VIAL (IV) IV ONE (16:00)
[2023-10-12] MEDS ORDERED: DEXTROSE 50% SYRINGE 50 ML IVP STA (16:00)
[2023-10-12] MEDS: NOREPINEPHRINE 8 MG in SODIUM CHLORIDE 0.9% 250 ML IV SCH (16:10)
[2023-10-12] MEDS: IPRATROPIUM-ALBUTEROL 3 ML NEB INHALATION SCH ×2 (16:18→20:21)
--- NOTE | 2023-10-12 16:28 | XR ---
EXAMINATION TYPE: XR chest 1V portable DATE OF EXAM: 10/12/2023 COMPARISON: 10/12/2023 HISTORY: Tube placement. TECHNIQUE: Single frontal view of the chest is obtained. FINDINGS: There is been interval insertion of an NG tube which is 4.5 cm above the blade. There is been placem ent of an NG tube which is in the stomach. There is marked interval worsening in the appearance of chest with diffuse partially consolidative op acities through both lungs consistent with diffuse pneumonia or pulmonary edema. There is no pneumothorax or large pleural effusion. Heart size is normal. IMPRESSION: 1. NG tube 4.5 cm above the blade. 2. Marked interval worsening in the cardiopulmonary disease involving both lungs as described above.
--- NOTE | 2023-10-12 16:29 | P.PCN ---
Date of Procedure: 10/12/23 Preoperative Diagnosis: Acute hypoxic respiratory failure Postoperative Diagnosis: Acute hypoxic respiratory failure Procedure(s) Performed: Intubation, central line insertion, arterial line insertion Anesthesia: MAC Surgeon: Glenn Montague Pathology: none sent Condition: critical Disposition: ICU Operative Findings: Indication: Respiratory compromise. A time-out was completed verifying correct patient, procedure, site, positioning, and implant(s) or special equipment if applicable. The patient was positioned appropriately and a # 8 endotracheal tube was placed under direct laryngoscopy. The tube was anchored at 22 cm at the teeth. Correct placement was confirmed by presence of bilateral breath sounds without air sounds in the abdomen on auscultation. An end-tidal CO2 monitor was also used to confirm tracheal placement of the ET tube. A chest x-ray was ordered to assess for pneumothorax and verify endotracheal tube placement. The patient tolerated the procedure well and there were no complications. Indication: Hemodynamic monitoring. A time-out was completed verifying correct patient, procedure, site, positioning, and implant(s) or special equipment if applicable. Allens test was performed to ensure adequate perfusion. The patient left wrist was prepped and draped in sterile fashion. 1% Lidocaine was used to anesthetize the area. An 18G Arrow arterial line was introduced into the radial artery. The catheter was threaded over the guide wire and the needle was removed with appropriate pulsatile blood return. Blood loss was minimal. The catheter was then sutured in place to the skin and a sterile dressing applied. Perfusion to the extremity distal to the point of catheter insertion was checked and found to be adequate. The patient tolerated the procedure well and there were no complications. Indication: Hemodynamic monitoring/Intravenous access. A time-out was completed verifying correct patient, procedure, site, positioning, and implant(s) or special equipment if applicable. The patient was placed in a dependent position appropriate for central line placement based on the vein to be cannulated. The patients left shoulder was prepped and draped in sterile fashion. 1% Lidocaine was used to anesthetize the surrounding skin area. A triple lumen 9F Cordis catheter was introduced into the lt subclavian vein using Seldinger technique. The catheter was threaded smoothly over the guide wire and appropriate blood return was obtained. Each lumen of the catheter was evacuated of air and flushed with sterile saline. The catheter was then sutured in place to the skin and a sterile dressing applied. Perfusion to the extremity distal to the point of catheter insertion was checked and found to be adequate. The patient tolerated the procedure well and there were no complications.
[2023-10-12 16:48] LABS: Basophils % (A) 0 %; Eosinophils # (A) 0.1 k/uL (0-0.7); Eosinophils % (A) 0 %; HCT 42.2 % (34.0-46.0); HGB 13.8 gm/dL (11.4-16.0); Lymphocytes # (A) 0.7 k/uL (1.0-4.8); Lymphocytes % (A) 5 %; MCH 31.9 pg (25.0-35.0); MCHC 32.6 g/dL (31.0-37.0); MCV 97.9 fL (80.0-100.0); Mean Platelet Volume 7.9; Monocytes # (A) 0.3 k/uL (0-1.0); Monocytes % (A) 2 %; Neutrophils # (A) 11.8 k/uL (1.3-7.7); Neutrophils % (A) 92 %; Platelet Count 312 k/uL (150-450); RBC 4.31 m/uL (3.80-5.40); RDW 14.1 % (11.5-15.5); WBC 12.9 k/uL (3.8-10.6)
[2023-10-12 16:48] LABS: ABG HCO3 35 mmol/L (21-25); ABG Oxygen Saturation 99.3 % (94-97); ABG PCO2 42 mmHg (35-45); ABG PH 7.53 (7.35-7.45); ABG PO2 197 mmHg (83-108); ABG TCO2 36 mmol/L (19-24)
[2023-10-12 17:00] LABS: African American GFR (CKD) 21 (>60 ml/min/1.73 sqM); Anion Gap 8 mmol/L; Blood Urea Nitrogen 51 mg/dL (7-17); Calcium 9.8 mg/dL (8.4-10.2); Carbon Dioxide 33 mmol/L (22-30); Chloride 95 mmol/L (98-107); Glucose 247 mg/dL (74-99); Magnesium 2.1 mg/dL (1.6-2.3); Non-African American GFR(CKD) 19 (>60 ml/min/1.73 sqM); Potassium 4.5 mmol/L (3.5-5.1); Sodium 136 mmol/L (137-145)
[2023-10-12] MEDS: SODIUM CHLORIDE 0.9% 1,000 ML IV SCH ×2 (19:55→20:00)
--- NOTE | 2023-10-12 21:03 | P.PN ---
Subjective This is a pleasant 73 year old female who comes in and is being treated for A. fib RVR as well as acute heart failure. Patient has been taken off IV amiodarone drip today and started on oral amiodarone, IV Lasix has been decreased every 12 hours, remains on IV Cardizem. Echocardiogram shows normal LV function with moderate MR and [id number] TR and mild pulmonary hypertension. Indwelling catheter is in place she is diuresing well. Today she's been downgraded from the intensive care unit and pending bed placement on the stepdown unit. Most recent chest x-ray today shows bilateral infiltrates which are stable. Sodium 136, BUN 41, creatinine 1.12. 10/03/2023 Patient remains in intensive care unit as a hold for stepdown unit. Remains on IV lasix Q12 overnight patient reports increased difficulty in breathing and states she had a rough night. Heart back up into the 120s. On oral amiodarone and remains on IV cardizem running at 10 mls/hr. Chest xray today reveals bibasilar infiltrates; correlate for atelectasis or pneumonia. Atypical pulm edema could be considered. Mild cardiomegaly. Sodium is 136, BUN 36, creatinine 1.06. BP on the lower side 90/58. 10/04/2023 Patient is still complaining of shortness of breath with some exertional dyspnea, today she was able to walk in the hallway. She is unable to sit in the chair. BiPAP overnight is helping her and she confirms. She still mildly tachypneic and tachycardic with heart rate around 88-108 she still on Cardizem drip at 10 mg per hour. Also she is already Lasix 40 mg twice daily. She has a little was at home 5 mg twice a day. 10/05/2023 Patient was transferred to the intensive care unit today after worsening respiratory status secondary to worsening pulmonary congestion with increased oxygen requirements up to 6 L/m after it was 1-2 L yesterday. She was getting Lasix 40 mg twice daily and the dose was lowered to 20 mg twice daily. Creatinine is slightly up at 1.3 but patient also with evidence of chronic kidney disease stage III. Also she is started yesterday CARDIZEM drip at 5 mg/h and amiodarone 400 mg and metoprolol 50 mg 3 times a day, her heart rate still somewhat elevated between 100 and 115, blood pressure is borderline with systolic 90-100. She was placed also on BiPAP. She is continued on Eliquis 5 mg 10/06/2023 Patient respiratory status got worse yesterday and chest x-ray showing bilateral infiltrates suspicious for pulmonary congestion and CHF Patient was placed on BiPAP overnight and her Lasix dose was increased to 40 mg every 8 hours Also patient on Cardizem drip 5 mg for A. fib and RVR. She still tachypneic, mildly tachycardic this morning. BiPAP setting is 16/12 with 50% Blood pressure 93/61, heart rate is 116. Leukocytosis improved, creatinine better 1.1. Also she is on Eliquis 5 mg I'm resuming the care of the patient on 10/12/2023 Patient initially was here for CHF with a preserved ejection fraction completed by A. fib and RVR and acute kidney injury on chronic kidney disease with crea tinine 1.2 This morning she was still on BiPAP with dissecting 16/6 and FiO2 45% Patient was still feeling worse dyspnea. Through the day patient got intubated. First patient was placed on this and then FiO2. BiPAP was kept going up and increased. Repeat labs showing hyperkalemia and low urine output, she received cocktail and repeat potassium improved Increased work of breathing and eventually got intubated and currently she is on small dose of Levophed Discussed with staff Active Medications Generic Name Dose Route Start Last Admin Trade Name Freq PRN Reason Stop Dose Admin Albuterol Sulfate 2.5 mg 09/29/23 15:31 10/12/23 09:13 Albuterol Nebulized 2.5 Mg/3 Ml INHALATION 2.5 mg RT-QID PRN Administration Shortness Of Breath Or Wheezing Albuterol/Ipratropium 3 ml 10/12/23 16:00 10/12/23 20:21 Ipratropium-Albuterol 3 Ml Neb INHALATION 3 ml RT-Q4H ANNA Administration Amiodarone HCl 400 mg 10/02/23 10:00 10/12/23 20:13 Amiodarone 200 Mg Tab PO Not Given BID ANNA Apixaban 5 mg 09/26/23 21:00 10/12/23 09:56 Apixaban 5 Mg Tab PO 5 mg BID ANNA Administration Protocol Atorvastatin Calcium 80 mg 09/26/23 21:00 10/11/23 20:36 Atorvastatin 80 Mg Tab PO 80 mg HS ANNA Administration Calcium Carbonate/Glycine 1,000 mg 09/29/23 13:56 09/29/23 14:07 Calcium Carbonate 500 Mg Chewable PO 1,000 mg TID PRN Administration Heartburn Chlorhexidine Gluconate 15 ml 10/12/23 21:00 Chlorhexidine Gluconate 15 Ml Cup MUCOUS MEM BID ANNA Guaifenesin 600 mg 09/29/23 17:14 10/12/23 19:57 Guaifenesin 600 Mg Tablet.Er PO Not Given Q12HR ANNA Furosemide 100 mg/ Sodium 100 mls @ 5 mls/hr 10/12/23 09:30 10/12/23 10:31 Chloride IV 5 mg/hr .Q20H ANNA 5 mls/hr Administration 5 MG/HR Cefepime HCl 2 gm/ Sodium 100 mls @ 25 mls/hr 10/12/23 09:30 10/12/23 09:57 Chloride IVPB 25 mls/hr Q12HR ANNA Administration Protocol Propofol 1,000 mg/ IV Solution 100 mls @ 12.186 mls/hr 10/12/23 15:30 18:46 IV 30 mcg/kg/min .Q8H13M ANNA 24.372 mls/hr Administration Protocol 15 MCG/KG/MIN Norepinephrine Bitartrate 8 mg 258 mls @ 7.86 mls/hr 10/12/23 16:00 10/12/23 16:10 / Sodium Chloride IV 0.03 mcg/kg/min .Q24H ANNA 7.86 mls/hr Administration Protocol 0.03 MCG/KG/MIN Sodium Chloride 1,000 mls @ 100 mls/hr 10/12/23 19:15 10/12/23 19:55 Saline 0.9% IV Not Given .Q10H ANNA Levothyroxine Sodium 88 mcg 09/27/23 06:30 10/12/23 07:07 Levothyroxine 88 Mcg Tab PO 88 mcg DAILY@0630 ANNA Administration Lorazepam 0.5 mg 10/05/23 00:14 10/12/23 11:58 Lorazepam 2 Mg/Ml Inj IV 0.5 mg Q6HR PRN Administration Anxiety Magnesium Oxide 400 mg 09/27/23 09:00 10/12/23 09:57 Magnesium Oxide 400 Mg Tab PO 400 mg DAILY ANNA Administration Methylprednisolone Sodium Succinate 40 mg 10/12/23 09:15 10/12/23 18:42 Methylprednisolone Sod Succi 40 Mg/Ml 1 Ml Vial IV 40 mg Q8HR ANNA Administration Metoprolol Tartrate 100 mg 10/10/23 21:00 10/12/23 20:13 Metoprolol Tartrate 50 Mg Tab PO Not Given BID ANNA Naloxone HCl 0.2 mg 09/26/23 12:07 Naloxone 0.4 Mg/Ml 1 Ml Vial IV Q2M PRN Opioid Reversal Nystatin 1 applic 09/27/23 13:04 Nystatin 100,000 Unit/Gm Powd 15 Gm TOPICAL BID PRN Rash Protocol Ondansetron HCl 4 mg 09/29/23 14:47 10/11/23 14:40 Ondansetron 4 Mg/2 Ml Vial IVP 4 mg Q6HR PRN Administration Nausea And Vomiting Pantoprazole Sodium 40 mg 09/27/23 19:45 10/12/23 09:57 Pantoprazole 40 Mg/10 Ml Vial IVP 40 mg DAILY ANNA Administration Potassium Chloride 40 meq 09/30/23 09:00 10/12/23 09:56 Potassium Chloride Er 20 Meq Tab.Er PO 40 meq DAILY ANNA Administration Objective - Vital Signs Vital signs: Vital Signs Temp 97.2 F L 10/12/23 04:00 Pulse 71 10/12/23 09:23 Resp 30 H 10/12/23 09:23 BP 97/64 10/12/23 06:00 Pulse Ox 93 L 10/12/23 09:13 FiO2 45 10/12/23 09:13 Intake & Output 10/11/23 10/12/23 10/12/23 18:59 06:59 18:59 Intake Total 800 Output Total 60 700 Balance 740 -700 Weight 135.4 kg Intake: Oral 800 Output: Urine 60 700 Other: Voiding Method Toilet External Catheter # Voids 1 # Bowel Movements 1 - Exam -GENERAL: The patient is awake but respiratory distress, not in any acute distress. Well developed, well nourished. HEENT: Pupils are round and equally reacting to light. EOMI. No scleral icterus. No conjunctival pallor. Normocephalic, atraumatic. No pharyngeal erythema. No thyromegaly. CARDIOVASCULAR: S1 and S2 present. No murmurs, rubs, or gallops. --PULMONARY: Chest is clear to auscultation, no wheezing , bilateral basal crackles. Tachypneic, with BIPAP machine in place ABDOMEN: Soft, nontender, nondistended, normoactive bowel sounds. No palpable organomegaly. MUSCULOSKELETAL: No joint swelling or deformity. -EXTREMITIES: No cyanosis, clubbing bilateral pitting leg edema NEUROLOGICAL: Gross neurological examination did not reveal any focal deficits. SKIN: No rashes. no petechiae. - Labs CBC & Chem 7: 10/12/23 16:30 10/12/23 16:30 Labs: Microbiology - Last 24 Hours (Table) 10/08/23 08:00 Gram Stain - Final Pleural Fluid Body Fluid Culture - Final Assessment and Plan Assessment: Acute on chronic CHF exacerbation, diastolic dysfunction, ef 55-60% Bilateral pulmonary infiltrates, worsening. Secondary to CHF, differential diagnosis pneumonia and ARDS. Possible elements of COPD and exacerbation Paroxysmal Atrial fibrillation with rapid ventricular rate Acute hypoxic respiratory failure secondary to the above, requiring intubation and mechanical ventilation Acute UTI, culture reporting E. coli Acute renal failure, on CKD stage III Pulmonary embolism bilaterally status post EKOS, 03/14/2022 Pulmonary hypertension Moderate mitral and tricuspid regurgitation Hypothyroidism Hypertension Hyperlipidemia Generalized weakness and medical debility. Osteoarthritis with history right knee placement in July 2022. Morbid obesity, BMI 46 Plan: Continue with mechanical ventilation Continue with Lasix, iv doses Continue with cefepime and IV Solu-Medrol She's on eliquis 5 mg at home . Continue with metoprolol and amiodarone Cardiology and pulmonary consult Labs and medication were reviewed.. Continue same treatment. Continue with symptomatic treatment. Resume home medication. Monitor labs and vitals. DVT and GI prophylaxis. Further recommendations as per clinical course of the patient DVT prophylaxis: eliquis GI Prophylaxis: Ppi PT/OT: Deferred Prognosis is guarded
[2023-10-12] MEDS: CHLORHEXIDINE GLUCONATE 15 ML CUP MUCOUS MEM SCH (21:41)
[2023-10-12] MEDS: ATORVASTATIN 80 MG TAB PO SCH (21:41)
[2023-10-13] MEDS: IPRATROPIUM-ALBUTEROL 3 ML NEB INHALATION SCH ×6 (00:01→20:05)
[2023-10-13 00:08] LABS: Glucose,Whole Blood 130 mg/dL (70-110)
[2023-10-13] MEDS: methylPREDNISolone SOD SUCCI 40 MG/ML 1 ML VIAL IV SCH ×3 (00:22→16:43)
[2023-10-13] MEDS: SODIUM CHLORIDE 0.9% 1,000 ML IV SCH ×2 (05:15→13:39)
[2023-10-13] MEDS: FUROSEMIDE 100 MG in SODIUM CHLORIDE 0.9% 90 ML IV SCH (05:16)
[2023-10-13 05:35] LABS: Glucose,Whole Blood 164 mg/dL (70-110)
[2023-10-13] MEDS: LEVOTHYROXINE 88 MCG TAB PO SCH (05:45)
[2023-10-13 05:46] LABS: ABG Base Excess 9.2 mmol/L; ABG HCO3 32 mmol/L (21-25); ABG Oxygen Saturation 98.4 % (94-97); ABG PCO2 39 mmHg (35-45); ABG PH 7.52 (7.35-7.45); ABG PO2 120 mmHg (83-108); ABG TCO2 33 mmol/L (19-24)
[2023-10-13 05:48] LABS: Allen Test Performed? NO
[2023-10-13 06:23] LABS: Basophils % (A) 0 %; Eosinophils % (A) 0 %; HCT 43.6 % (34.0-46.0); HGB 14.2 gm/dL (11.4-16.0); Lymphocytes # (A) 1.3 k/uL (1.0-4.8); Lymphocytes % (A) 7 %; MCH 31.6 pg (25.0-35.0); MCHC 32.6 g/dL (31.0-37.0); MCV 97.2 fL (80.0-100.0); Monocytes # (A) 0.5 k/uL (0-1.0); Monocytes % (A) 3 %; Neutrophils # (A) 16.5 k/uL (1.3-7.7); Neutrophils % (A) 90 %; Platelet Count 426 k/uL (150-450); RBC 4.49 m/uL (3.80-5.40); RDW 14.2 % (11.5-15.5); WBC 18.4 k/uL (3.8-10.6)
[2023-10-13 06:33] LABS: African American GFR (CKD) 21 (>60 ml/min/1.73 sqM); Anion Gap 8 mmol/L; Blood Urea Nitrogen 54 mg/dL (7-17); Calcium 9.3 mg/dL (8.4-10.2); Carbon Dioxide 31 mmol/L (22-30); Chloride 97 mmol/L (98-107); Glucose 149 mg/dL (74-99); Magnesium 2.3 mg/dL (1.6-2.3); Non-African American GFR(CKD) 18 (>60 ml/min/1.73 sqM); Potassium 4.7 mmol/L (3.5-5.1); Sodium 136 mmol/L (137-145)
[2023-10-13] MEDS: INSULIN ASPART (NovoLOG) 100 UNIT/ML VIAL SQ SCH ×3 (06:52→17:25)
[2023-10-13 06:53] LABS: Glucose,Whole Blood 136 mg/dL (70-110)
--- NOTE | 2023-10-13 07:30 | XR ---
EXAMINATION TYPE: XR chest 1V portable DATE OF EXAM: 10/13/2023 5:26 AM CLINICAL INDICATION:Female, 73 years old with history of Tube placement; [facility] COMPARISON: Chest radiographs from TECHNIQUE: XR chest 1V portable Frontal view of the chest. FINDINGS: There is interval improvement of bilateral lung aeration, with persistent lung base hazy opacificatio ns, right greater than left. No evidence of pneumothorax. The osseous structures are intact. Endotracheal tube is seen in appropriate position at the level of the inferior clavicular heads. Ente yoni tube can be seen coursing below the level diaphragm. Left-sided central line is seen terminating near the cavoatrial junction. IMPRESSION: 1. Interval improvement in bilateral lung aeration. 2. Appropriately positioned support lines/tubes.
--- NOTE | 2023-10-13 09:10 | P.PN ---
Subjective This is a pleasant 73 year old female who comes in and is being treated for A. fib RVR as well as acute heart failure. Patient has been taken off IV amiodarone drip today and started on oral amiodarone, IV Lasix has been decreased every 12 hours, remains on IV Cardizem. Echocardiogram shows normal LV function with moderate MR and [id number] TR and mild pulmonary hypertension. Indwelling catheter is in place she is diuresing well. Today she's been downgraded from the intensive care unit and pending bed placement on the stepdown unit. Most recent chest x-ray today shows bilateral infiltrates which are stable. Sodium 136, BUN 41, creatinine 1.12. 10/03/2023 Patient remains in intensive care unit as a hold for stepdown unit. Remains on IV lasix Q12 overnight patient reports increased difficulty in breathing and states she had a rough night. Heart back up into the 120s. On oral amiodarone and remains on IV cardizem running at 10 mls/hr. Chest xray today reveals bibasilar infiltrates; correlate for atelectasis or pneumonia. Atypical pulm edema could be considered. Mild cardiomegaly. Sodium is 136, BUN 36, creatinine 1.06. BP on the lower side 90/58. 10/04/2023 Patient is still complaining of shortness of breath with some exertional dyspnea, today she was able to walk in the hallway. She is unable to sit in the chair. BiPAP overnight is helping her and she confirms. She still mildly tachypneic and tachycardic with heart rate around 88-108 she still on Cardizem drip at 10 mg per hour. Also she is already Lasix 40 mg twice daily. She has a little was at home 5 mg twice a day. 10/05/2023 Patient was transferred to the intensive care unit today after worsening respiratory status secondary to worsening pulmonary congestion with increased oxygen requirements up to 6 L/m after it was 1-2 L yesterday. She was getting Lasix 40 mg twice daily and the dose was lowered to 20 mg twice daily. Creatinine is slightly up at 1.3 but patient also with evidence of chronic kidney disease stage III. Also she is started yesterday CARDIZEM drip at 5 mg/h and amiodarone 400 mg and metoprolol 50 mg 3 times a day, her heart rate still somewhat elevated between 100 and 115, blood pressure is borderline with systolic 90-100. She was placed also on BiPAP. She is continued on Eliquis 5 mg 10/06/2023 Patient respiratory status got worse yesterday and chest x-ray showing bilateral infiltrates suspicious for pulmonary congestion and CHF Patient was placed on BiPAP overnight and her Lasix dose was increased to 40 mg every 8 hours Also patient on Cardizem drip 5 mg for Bartolo mary and RVR. She still tachypneic, mildly tachycardic this morning. BiPAP setting is 16/12 with 50% Blood pressure 93/61, heart rate is 116. Leukocytosis improved, creatinine better 1.1. Also she is on Eliquis 5 mg 10/12/2023 Patient initially was here for CHF with a preserved ejection fraction completed by Bartolo mary and YASMINER and acute kidney injury on chronic kidney disease with creatinine 1.2 This morning she was still on BiPAP with dissecting 16/6 and FiO2 45% Patient was still feeling worse dyspnea. Through the day patient got intubated. First patient was placed on this and then FiO2. BiPAP was kept going up and i ncreased. Repeat labs showing hyperkalemia and low urine output, she received cocktail and repeat potassium improved Increased work of breathing and eventually got intubated and currently she is on small dose of Levophed Discussed with staff 10/13/2023 Patient remains sedated and intubated Patient currently on mechanical ventilation FiO2 of 50% and PEEP of 12. Also she is getting smaller process of Levophed 0.04. Abdomen nontender, no significant expiratory wheezing Creatinine bumped up to 2.5, rest of labs are unremarkable. She is also on Lasix IV. He Active Medications Generic Name Dose Route Start Last Admin Trade Name Freq PRN Reason Stop Dose Admin Albuterol Sulfate 2.5 mg 09/29/23 15:31 10/12/23 09:13 Albuterol Nebulized 2.5 Mg/3 Ml INHALATION 2.5 mg RT-QID PRN Administration Shortness Of Breath Or Wheezing Albuterol/Ipratropium 3 ml 10/12/23 16:00 10/13/23 07:50 Ipratropium-Albuterol 3 Ml Neb INHALATION 3 ml RT-Q4H ANNA Administration Amiodarone HCl 200 mg 10/13/23 09:00 Amiodarone 200 Mg Tab PO DAILY ANNA Apixaban 5 mg 09/26/23 21:00 10/12/23 21:41 Apixaban 5 Mg Tab PO 5 mg BID ANNA Administration Protocol Atorvastatin Calcium 80 mg 09/26/23 21:00 10/12/23 21:41 Atorvastatin 80 Mg Tab PO 80 mg HS ANNA Administration Calcium Carbonate/Glycine 1,000 mg 09/29/23 13:56 09/29/23 14:07 Calcium Carbonate 500 Mg Chewable PO 1,000 mg TID PRN Administration Heartburn Chlorhexidine Gluconate 15 ml 10/12/23 21:00 10/12/23 21:41 Chlorhexidine Gluconate 15 Ml Cup MUCOUS MEM 15 ml BID ANNA Administration Guaifenesin 600 mg 09/29/23 17:14 10/12/23 19:57 Guaifenesin 600 Mg Tablet.Er PO Not Given Q12HR ANNA Cefepime HCl 2 gm/ Sodium 100 mls @ 25 mls/hr 10/12/23 09:30 10/12/23 21:40 Chloride IVPB 25 mls/hr Q12HR ANNA Administration Protocol Propofol 1,000 mg/ IV Solution 100 mls @ 12.186 mls/hr 10/12/23 15:30 10/13/23 06:18 IV 30 mcg/kg/min .Q8H13M ANNA 24.372 mls/hr Administration Protocol 15 MCG/KG/MIN Norepinephrine Bitartrate 8 mg 258 mls @ 7.86 mls/hr 10/12/23 16:00 10/12/23 22:59 / Sodium Chloride IV 0.04 mcg/kg/min .Q24H ANNA 10.48 mls/hr Titration Protocol 0.03 MCG/KG/MIN Sodium Chloride 1,000 mls @ 100 mls/hr 10/12/23 19:15 10/13/23 05:15 Saline 0.9% IV 100 mls/hr .Q10H ANNA Administration Insulin Aspart 0 unit 10/13/23 06:45 10/13/23 06:52 Insulin Aspart (Novolog) 100 Unit/Ml Vial SQ Not Given Q6H ANNA Protocol Levothyroxine Sodium 88 mcg 09/27/23 06:30 10/13/23 05:45 Levothyroxine 88 Mcg Tab PO 88 mcg DAILY@0630 ANNA Administration Lorazepam 0.5 mg 10/05/23 00:14 10/12/23 11:58 Lorazepam 2 Mg/Ml Inj IV 0.5 mg Q6HR PRN Administration Anxiety Magnesium Oxide 400 mg 09/27/23 09:00 10/12/23 09:57 Magnesium Oxide 400 Mg Tab PO 400 mg DAILY ANNA Administration Methylprednisolone Sodium Succinate 40 mg 10/12/23 09:15 10/13/23 00:22 Methylprednisolone Sod Succi 40 Mg/Ml 1 Ml Vial IV 40 mg Q8HR ANNA Administration Naloxone HCl 0.2 mg 09/26/23 12:07 Naloxone 0.4 Mg/Ml 1 Ml Vial IV Q2M PRN Opioid Reversal Nystatin 1 applic 09/27/23 13:04 Nystatin 100,000 Unit/Gm Powd 15 Gm TOPICAL BID PRN Rash Protocol Ondansetron HCl 4 mg 09/29/23 14:47 10/11/23 14:40 Ondansetron 4 Mg/2 Ml Vial IVP 4 mg Q6HR PRN Administration Nausea And Vomiting Pantoprazole Sodium 40 mg 09/27/23 19:45 10/12/23 09:57 Pantoprazole 40 Mg/10 Ml Vial IVP 40 mg DAILY ANNA Administration Potassium Chloride 40 meq 09/30/23 09:00 10/12/23 09:56 Potassium Chloride Er 20 Meq Tab.Er PO 40 meq DAILY ANNA Administration Objective - Vital Signs Vital signs: Vital Signs Temp 98.4 F 10/13/23 04:00 Pulse 50 L 10/13/23 08:00 Resp 24 10/13/23 08:00 BP 90/56 10/13/23 07:00 Pulse Ox 98 10/13/23 07:00 FiO2 50 10/13/23 07:58 Intake & Output 10/12/23 10/13/23 10/13/23 18:59 06:59 18:59 Intake Total 73.183 1642.087 106 Output Total 0 290 15 Balance 73.183 1352.087 91 Weight 140.1 kg Intake: IV 1260 106 Calcium Gluconate in NaCl 100 1 gm In Saline 1 100ml. bag @ 100 mls/hr IVPB ONCE ONE Rx#:[id number] Pressure bags 60 6 Sodium Chloride 0.9% 1, 1100 100 000 ml @ 100 mls/hr IV . Q10H ANNA Rx#:[id number] Intake, IV Titration 73.183 382.087 Amount Furosemide 100 mg In 47.417 Sodium Chloride 0.9% 90 ml @ 5 MG/HR 5 mls/hr IV .Q20H ANNA Rx#:[id number] Norepinephrine 8 mg In 53.579 Sodium Chloride 0.9% 250 ml @ 0.03 MCG/KG/MIN 7.86 mls/hr IV .Q24H ANNA Rx#: [id number] propofoL 1,000 mg In 73.183 281.091 Empty Bag 1 bag @ 15 MCG/ KG/MIN 12.186 mls/hr IV . Q8H13M ANNA Rx#:[id number] Output: Urine 0 290 15 Other: Voiding Method Indwelling Catheter Indwelling Catheter ABP, PAP, CO, CI - Last Documented Arterial Blood Pressure 98/52 - Exam -GENERAL: The patient is sedated and intubated. HEENT: Pupils are round and equally reacting to light. EOMI. No scleral icterus. No conjunctival pallor. Normocephalic, atraumatic. No pharyngeal erythema. No thyromegaly. CARDIOVASCULAR: S1 and S2 present. No murmurs, rubs, or gallops. --PULMONARY: Chest is clear to auscultation, no wheezing , bilateral basal crackles. Tachypneic, with BIPAP machine in place ABDOMEN: Soft, nontender, nondistended, normoactive bowel sounds. No palpable organomegaly. MUSCULOSKELETAL: No joint swelling or deformity. -EXTREMITIES: No cyanosis, clubbing bilateral pitting leg edema NEUROLOGICAL: Gross neurological examination did not reveal any focal deficits. SKIN: No rashes. no petechiae. - Labs CBC & Chem 7: 10/13/23 05:35 10/13/23 05:35 Labs: Abnormal Lab Results - Last 24 Hours (Table) 10/12/23 10/12/23 10/12/23 Range/Units 14:19 14:53 16:30 WBC 12.9 H (3.8-10.6) k/uL Neutrophils # 11.8 H (1.3-7.7) k/uL Lymphocytes # 0.7 L (1.0-4.8) k/uL D-Dimer (<0.60) mg/L FEU ABG pH (7.35-7.45) ABG pO2 60 L (83-108) mmHg ABG HCO3 28 H (21-25) mmol/L ABG Total CO2 30 H (19-24) mmol/L ABG O2 Saturation 88.6 L (94-97) % Sodium 134 L (137-145) mmol/L Potassium 6.4 H* (3.5-5.1) mmol/L Chloride 94 L (98-107) mmol/L Carbon Dioxide (22-30) mmol/L BUN 49 H (7-17) mg/dL Creatinine 2.40 H (0.52-1.04) mg/dL Glucose 154 H (74-99) mg/dL POC Glucose (mg/dL) (70-110) mg/dL 10/12/23 10/12/23 10/12/23 Range/Units 16:30 16:45 21:10 WBC (3.8-10.6) k/uL Neutrophils # (1.3-7.7) k/uL Lymphocytes # (1.0-4.8) k/uL D-Dimer 0.88 H (<0.60) mg/L FEU ABG pH 7.53 H (7.35-7.45) ABG pO2 197 H (83-108) mmHg ABG HCO3 35 H (21-25) mmol/L ABG Total CO2 36 H (19-24) mmol/L ABG O2 Saturation 99.3 H (94-97) % Sodium 136 L (137-145) mmol/L Potassium (3.5-5.1) mmol/L Chloride 95 L (98-107) mmol/L Carbon Dioxide 33 H (22-30) mmol/L BUN 51 H (7-17) mg/dL Creatinine 2.47 H (0.52-1.04) mg/dL Glucose 247 H (74-99) mg/dL POC Glucose (mg/dL) (70-110) mg/dL 10/13/23 10/13/23 10/13/23 Range/Units 00:07 05:34 05:35 WBC 18.4 H (3.8-10.6) k/uL Neutrophils # 16.5 H (1.3-7.7) k/uL Lymphocytes # (1.0-4.8) k/uL D-Dimer (<0.60) mg/L FEU ABG pH (7.35-7.45) ABG pO2 (83-108) mmHg ABG HCO3 (21-25) mmol/L ABG Total CO2 (19-24) mmol/L ABG O2 Saturation (94-97) % Sodium (137-145) mmol/L Potassium (3.5-5.1) mmol/L Chloride (98-107) mmol/L Carbon Dioxide (22-30) mmol/L BUN (7-17) mg/dL Creatinine (0.52-1.04) mg/dL Glucose (74-99) mg/dL POC Glucose (mg/dL) 130 H 164 H (70-110) mg/dL 10/13/23 10/13/23 10/13/23 Range/Units 05:35 05:40 06:51 WBC (3.8-10.6) k/uL Neutrophils # (1.3-7.7) k/uL Lymphocytes # (1.0-4.8) k/uL D-Dimer (<0.60) mg/L FEU ABG pH 7.52 H (7.35-7.45) ABG pO2 120 H (83-108) mmHg ABG HCO3 32 H (21-25) mmol/L ABG Total CO2 33 H (19-24) mmol/L ABG O2 Saturation 98.4 H (94-97) % Sodium 136 L (137-145) mmol/L Potassium (3.5-5.1) mmol/L Chloride 97 L (98-107) mmol/L Carbon Dioxide 31 H (22-30) mmol/L BUN 54 H (7-17) mg/dL Creatinine 2.52 H (0.52-1.04) mg/dL Glucose 149 H (74-99) mg/dL POC Glucose (mg/dL) 136 H (70-110) mg/dL Microbiology - Last 24 Hours (Table) 10/08/23 08:00 Gram Stain - Final Pleural Fluid Body Fluid Culture - Final Assessment and Plan Assessment: Acute on chronic CHF exacerbation, diastolic dysfunction, ef 55-60% Bilateral pulmonary infiltrates, worsening. Secondary to CHF, differential diagnosis pneumonia and ARDS. Possible elements of COPD and exacerbation Paroxysmal Atrial fibrillation with rapid ventricular rate Acute hypoxic respiratory failure secondary to the above, requiring intubation and mechanical ventilation Acute UTI, culture reporting E. coli Acute renal failure, on CKD stage III Pulmonary embolism bilaterally status post EKOS, 03/14/2022 Pulmonary hypertension Moderate mitral and tricuspid regurgitation Hypothyroidism Hypertension Hyperlipidemia Generalized weakness and medical debility. Osteoarthritis with history right knee placement in July 2022. Morbid obesity, BMI 46 Plan: Continue with mechanical ventilation Continue with Lasix, iv doses Continue with cefepime and IV Solu-Medrol She's on eliquis 5 mg at home . Continue with metoprolol and amiodarone Cardiology and pulmonary consult Labs and medication were reviewed.. Continue same treatment. Continue with sym ptomatic treatment. Resume home medication. Monitor labs and vitals. DVT and GI prophylaxis. Further recommendations as per clinical course of the patient DVT prophylaxis: eliquis GI Prophylaxis: Ppi PT/OT: Deferred Prognosis is guarded
[2023-10-13] MEDS: MAGNESIUM OXIDE 400 MG TAB PO SCH (10:17)
[2023-10-13] MEDS: AMIODARONE 200 MG TAB PO SCH (10:17)
[2023-10-13] MEDS: APIXABAN 5 MG TAB PO SCH ×2 (10:17→21:44)
[2023-10-13] MEDS: PANTOPRAZOLE 40 MG/10 ML VIAL IVP SCH (10:18)
[2023-10-13] MEDS: guaiFENesin 600 MG TABLET.ER PO SCH ×2 (10:18→21:44)
[2023-10-13] MEDS: POTASSIUM CHLORIDE ER 20 MEQ TAB.ER PO SCH (10:18)
[2023-10-13] MEDS: CEFEPIME 2 GM in SODIUM CHLORIDE 0.9% 100 ML IVPB SCH (10:19)
[2023-10-13] MEDS: CHLORHEXIDINE GLUCONATE 15 ML CUP MUCOUS MEM SCH ×2 (10:19→21:44)
--- NOTE | 2023-10-13 11:20 | P.PN ---
Subjective Progress Note Date: 10/13/23 This is Cedrick Ramachandran NP, I'm dictating on behalf of Dr. Ayala's H&P and A&P. Patient was interviewed and examined. Patient is a pleasant 73-year-old female who presented to the hospital with shortness of breath and palpitations. She was found to be in A. fib with RVR as well as diastolic heart failure. Yesterday the patient started having increased shortness of breath and difficulty breathing, she initially started on BiPAP, and eventually yesterday afternoon after failing BiPAP was intubated and sedated. This morning the patient is found in the same way. Chest x-ray looks slightly worse today. The [place] do appear to be more exudative/infectious in etiology, it does not appear that the patient is experiencing greater fluid overload. We do note that the patient has converted to normal sinus rhythm with a low heart rate today. GENERAL: Well-appearing, well-nourished and in no acute distress. NECK: Supple without JVD or thyromegaly. LUNGS: Crackles noted bilaterally throughout all lung acuna. Respiration equal and unlabored. No wheezes, rales or rhonchi. HEART: Regular rate and rhythm without murmurs, rubs or gallops. S1 and S2 heard. EXTREMITIES: Normal range of motion, no edema. No clubbing or cyanosis. Peripheral pulses intact and strong. VITALS: Temp 98.1, pulse 49, respirations 24, blood pressure 92/45, O2 saturation 97% on mechanical ventilation TELEMETRY: Normal sinus rhythm LABS: White count 18.4, hemoglobin 14.2, platelets 426, sodium 136, potassium 4.7, BUN 54, creatinine 2.5 to, magnesium 2.3 IMPRESSION: 1. A. fib with RVR 2. Secondary hypertension 3. Diastolic heart failure 4. History of pulmonary emboli 5. Bilateral pleural effusions 6. Pneumonitis PLAN: Discontinue IV Lasix. Decrease amiodarone to 200 mg daily. Discontinue metoprolol. Repeat echocardiogram tomorrow. Further recommendations based on patient's clinical course. Objective - Vital Signs Vital signs: Vital Signs Temp 98.1 F 10/13/23 08:00 Pulse 53 L 10/13/23 11:14 Resp 24 10/13/23 11:14 BP 94/49 10/13/23 10:30 Pulse Ox 97 10/13/23 10:15 FiO2 40 10/13/23 11:00 Intake & Output 10/12/23 10/13/23 10/13/23 18:59 06:59 18:59 Intake Total 73.183 1642.087 646.092 Output Total 0 290 90 Balance 73.183 1352.087 556.092 Weight 140.1 kg Intake: IV 1260 524 Calcium Gluconate in NaCl 100 1 gm In Saline 1 100ml. bag @ 100 mls/hr IVPB ONCE ONE Rx#:[id number] Cefepime 2 gm In Sodium 100 Chloride 0.9% 100 ml @ 25 mls/hr IVPB Q12HR ANNA Rx #:[id number] Pressure bags 60 24 Sodium Chloride 0.9% 1, 1100 400 000 ml @ 100 mls/hr IV . Q10H ANNA Rx#:[id number] Intake, IV Titration 73.183 382.087 122.092 Amount Furosemide 100 mg In 47.417 Sodium Chloride 0.9% 90 ml @ 5 MG/HR 5 mls/hr IV .Q20H ANNA Rx#:[id number] Norepinephrine 8 mg In 53.579 122.092 Sodium Chloride 0.9% 250 ml @ 0.03 MCG/KG/MIN 7.86 mls/hr IV .Q24H ANNA Rx#: [id number] propofoL 1,000 mg In 73.183 281.091 Empty Bag 1 bag @ 15 MCG/ KG/MIN 12.186 mls/hr IV . Q8H13M ANNA Rx#:[id number] Output: Urine 0 290 90 Other: Voiding Method Indwelling Catheter Indwelling Catheter ABP, PAP, CO, CI - Last Documented Arterial Blood Pressure 109/53 - Labs CBC & Chem 7: 10/13/23 05:35 10/13/23 05:35 Labs: Abnormal Lab Results - Last 24 Hours (Table) 10/12/23 10/12/23 10/12/23 Range/Units 14:19 14:53 16:30 WBC 12.9 H (3.8-10.6) k/uL Neutrophils # 11.8 H (1.3-7.7) k/uL Lymphocytes # 0.7 L (1.0-4.8) k/uL D-Dimer (<0.60) mg/L FEU ABG pH (7.35-7.45) ABG pO2 60 L (83-108) mmHg ABG HCO3 28 H (21-25) mmol/L ABG Total CO2 30 H (19-24) mmol/L ABG O2 Saturation 88.6 L (94-97) % Sodium 134 L (137-145) mmol/L Potassium 6.4 H* (3.5-5.1) mmol/L Chloride 94 L (98-107) mmol/L Carbon Dioxide (22-30) mmol/L BUN 49 H (7-17) mg/dL Creatinine 2.40 H (0.52-1.04) mg/dL Glucose 154 H (74-99) mg/dL POC Glucose (mg/dL) (70-110) mg/dL 10/12/23 10/12/23 10/12/23 Range/Units 16:30 16:45 21:10 WBC (3.8-10.6) k/uL Neutrophils # (1.3-7.7) k/uL Lymphocytes # (1.0-4.8) k/uL D-Dimer 0.88 H (<0.60) mg/L FEU ABG pH 7.53 H (7.35-7.45) ABG pO2 197 H (83-108) mmHg ABG HCO3 35 H (21-25) mmol/L ABG Total CO2 36 H (19-24) mmol/L ABG O2 Saturation 99.3 H (94-97) % Sodium 136 L (137-145) mmol/L Potassium (3.5-5.1) mmol/L Chloride 95 L (98-107) mmol/L Carbon Dioxide 33 H (22-30) mmol/L BUN 51 H (7-17) mg/dL Creatinine 2.47 H (0.52-1.04) mg/dL Glucose 247 H (74-99) mg/dL POC Glucose (mg/dL) (70-110) mg/dL 10/13/23 10/13/23 10/13/23 Range/Units 00:07 05:34 05:35 WBC 18.4 H (3.8-10.6) k/uL Neutrophils # 16.5 H (1.3-7.7) k/uL Lymphocytes # (1.0-4.8) k/uL D-Dimer (<0.60) mg/L FEU ABG pH (7.35-7.45) ABG pO2 (83-108) mmHg ABG HCO3 (21-25) mmol/L ABG Total CO2 (19-24) mmol/L ABG O2 Saturation (94-97) % Sodium (137-145) mmol/L Potassium (3.5-5.1) mmol/L Chloride (98-107) mmol/L Carbon Dioxide (22-30) mmol/L BUN (7-17) mg/dL Creatinine (0.52-1.04) mg/dL Glucose (74-99) mg/dL POC Glucose (mg/dL) 130 H 164 H (70-110) mg/dL 10/13/23 10/13/23 10/13/23 Range/Units 05:35 05:40 06:51 WBC (3.8-10.6) k/uL Neutrophils # (1.3-7.7) k/uL Lymphocytes # (1.0-4.8) k/uL D-Dimer (<0.60) mg/L FEU ABG pH 7.52 H (7.35-7.45) ABG pO2 120 H (83-108) mmHg ABG HCO3 32 H (21-25) mmol/L ABG Total CO2 33 H (19-24) mmol/L ABG O2 Saturation 98.4 H (94-97) % Sodium 136 L (137-145) mmol/L Potassium (3.5-5.1) mmol/L Chloride 97 L (98-107) mmol/L Carbon Dioxide 31 H (22-30) mmol/L BUN 54 H (7-17) mg/dL Creatinine 2.52 H (0.52-1.04) mg/dL Glucose 149 H (74-99) mg/dL POC Glucose (mg/dL) 136 H (70-110) mg/dL Microbiology - Last 24 Hours (Table) 10/08/23 08:00 Gram Stain - Final Pleural Fluid Body Fluid Culture - Final
[2023-10-13 11:21] LABS: Glucose,Whole Blood 142 mg/dL (70-110)
--- NOTE | 2023-10-13 11:54 | P.PN ---
Subjective Progress Note Date: 10/13/23 Pulmonary consult dated 09/30/2023. 73-year-old female who presented to the emergency department on September 26, complaining of arrhythmias, and palpitations. The patient does have a history of hypertension, atrial fibrillation, hyperlipidemia, pulmonary embolism, and hypothyroidism. The patient apparently was having some lower extremity edema, shortness of breath, and orthopnea. She also had mild exertional dyspnea. The patient denied any chest pain or chest discomfort. She was seen by the ER physician, and admitted with a diagnosis of atrial fibrillation, CHF, and urinary tract infection. Today, a rapid response was called on this patient, and, R ICU charge nurse, who evaluated the patient, and thought the patient should come down to the intensive care unit, for further monitoring and management. She was given some IV Lasix, and placed on BiPAP, with settings of 16/6, and 100%. She was seen in the intensive care unit, room 255. She was sitting up in bed, with mild respiratory distress, on the BiPAP device. White count was 13.7, hemoglobin 14.5, hematocrit 44.4, and a normal platelet count. Sodium 135, potassium 3.9, chlorides 96, CO2 27, anion gap 12, BUN 37, and creatinine 1.26. N-terminal proBNP, on September 29, was 7020. The patient had chest x-rays on the and on the . Today's chest x-ray shows worsening pulmonary edema. Progress note dated 10/01/2023. 73-year-old female seen again in intensive care unit, room 255. The patient was admitted with a diagnosis of acute hypoxemic respiratory failure, secondary to CHF, as well as atrial fibrillation with RVR. The patient is currently on high flow nasal O2, at 13 L. In addition, the patient uses BiPAP intermittently at 16/6, and 60%. For her atrial fibrillation and RVR, the patient's on Cardizem 15 mg an hour. Clinically, she's starting to feel a bit better. White count 9.4, hemoglobin 14, hematocrit 43.1, and platelet count 223,000. Sodium 136, potassium 4.1, chlorides 96, CO2 29, BUN 37, and creatinine 1.30. Calcium is 9.2. Chest x-ray shows improved vascular congestion. Progress note dated 10/02/2023. 73-year-old female seen in the intensive care unit, room 255. She was admitted initially with a diagnosis of acute hypoxemic respiratory failure secondary to CHF, as well as atrial fibrillation with rapid ventricular response. The patient is currently on room air, with saturations of 91%. Unfortunately, she continues on Cardizem at 10 mg an hour, and amiodarone at 0.5 mg/m. White count 9, hemoglobin 12.8, hematocrit 39.4, within normal platelet count. Sodium 136, potassium 4.3, chloride 96, CO2 34, BUN 41, creatinine 1.12. Glucose is 112. Urine culture is showing evidence of Escherichia coli. Chest x-ray shows improvement in the patient's pulmonary vascular status. Progress note dated 10/03/2023. 73-year-old female seen today in room 255, intensive care unit. She was admitted with a diagnosis of acute hypoxemic respiratory failure, secondary to CHF, as well as atrial fibrillation, with rapid ventricular response. Currently, the patient is on 2 L of oxygen. She's on a Cardizem drip at 10 mg an hour. She's not receiving any IV fluids additionally. The patient that she is BiPAP, intermittently, with settings of 16/6, and 45%. She use BiPAP last night for about an hour and a half. She needs to be using it more frequently. White count 9.4, hemoglobin 12.9, hematocrit 39.2, and platelet count 187,000. Sodium 136, potassium 4.1, chlorides 97, CO2 32, BUN 36, creatinine 1.06. Glucose 116. Calcium is 9. Chest x-ray shows improved pulmonary vascular status. Progress note dated 10/04/2023. 73-year-old female seen again in the intensive care unit, room 255. Currently, she is on 2 L of oxygen. She's on a Cardizem drip at 10 mg an hour, to be dropped on the 5 mg an hour. She did use of BiPAP last night, for many hours, and it seemed to help. Her settings include 16/6, and 45%. She currently remains in atrial fibrillation with a rate of 128 bpm. Labs today include a sodium 138, potassium 4.1, chlorides 98, CO2 31, BUN 40, and creatinine 1.08. Glucose 116. Calcium is 9.1. No chest x-ray today. Progress note dated 10/05/2023. 73-year-old female who was sent out of the intensive care unit yesterday, and came back into the intensive care unit, sometime early this morning. She apparently developed worsening shortness of breath, was severely anxious, receive some benzodiazepine, and, required BiPAP therapy. I was called by the nurse who went to the rapid response, and we decided to move the patient back to the intensive care unit. Currently, she is seen in room 261. She is on BiPAP, with settings of 16/6 and 60%. Gases done on 100% show pO2 of 66, pCO2 61, pH is 7.28. The patient is on Cardizem 5 mg an hour. She's not receiving any additional IV fluids. We did order a chest x-ray today, and N-terminal proBNP. Labs today include a white count 13.8, hemoglobin 13, hematocrit 40.7 and a platelet count 229,000. Sodium 136, potassium 4.6, chlorides 99, CO2 28, BUN 46, creatinine 1.31. Calcium is 9. Today's chest x-rays consistent with cardiomegaly, small bilateral pleural effusions, and pulmonary vascular congestion. Progress note dated 10/06/2023. 73-year-old female readmitted to the intensive care unit, for fluid overload/CHF. The patient is currently seen today in room 261. She is currently on BiPAP, with settings of 16/6, and 50%. She's getting Cardizem 5 mg an hour. Her chest x-ray shows fluid overload, so I increased her Lasix up milligrams IV push every 8 hours. When she was taken off BiPAP yesterday for a brief period of time, she became very anxious, and very short of breath, and, desaturated, and was placed back on BiPAP. White count 9.4, hemoglobin 12.9, hematocrit 40.1, within normal platelet count. Sodium 135, potassium 4.5, chlorides 99, CO2 29, BUN 49, and creatinine 1.11. Her N-terminal proBNP from yesterday was nearly 8000. Chest x-rays consistent with CHF, with effusion. On 10/07/2023, I'm seeing the patient for a follow-up. The patient remains in the intensive care unit. Overnight she uses a BiPAP at a pressure of 16/6 with an FiO2 of 50% and this morning she is on oxygen at 6 L nasal cannula. I reviewed her chest x-ray. The patient has moderate-sized bilateral pleural effusion which is worse on the right. She remains active fibrillation. She is still somewhat tachycardic with a heart rate ranging between 100-1 20 irregular. No chest pain. Continues to have significant amount of edema lower extremities bilaterally. She has a Louis catheter in place. She is receiving Lasix 40 mg IV every 8 hours and overall fluid balance has been -2.6 L over the past 24 hours. She is currently off the Cardizem drip. Echocardiogram that was done during this current admission showed a preserved LV function, mild pulmonary hypertension, [id number] mitral regurgitation. In terms of her blood work, the patient has a cigar of 8.4, hemoglobin was 12.7 and a platelet count of 228. BUN is at 44 with a creatinine of 1.02. Her proBNP level is 7910. She remains on long-term and coagulation with Eliquis 5 mg by mouth twice a day. This will be placed on hold in anticipation for thoracentesis as the patient obviously has significant amount of pleural effusions bilaterally. She was infected with E. coli in her urine on 09/26/2023 and this was treated appropriately. She continues to be on Synthroid for hypothyroidism. Her thyroid function test during this current admission shows a TSH of 1.8 which is essentially within normal limits. 10/08/2023, the patient is comfortable on oxygen at 4 L nasal cannula. Overnight, she uses the BiPAP for a total of 4 hours. She is making good urine output. She remains on IV Lasix at a dose of 40 mg every 8 hours. Fluid balance over the past 24 hours has been in the order of -2.7 L. No significant chest pain. Shortness of breath is gradually improving. The chest x-ray shows moderate-sized bilateral pleural effusions an ultrasound of the chest confirmed the findings. In fact, the patient has a 6.8 cm pocket on the right and a 7.5 cm on the left. The plan was to proceed with a thoracentesis today. The anticoagulation is currently on hold. The patient remains in atrial fibrillation. Cardiology is also planning to undergo a cardioversion at the later stage. Sodium level is at 138, potassium levels at 3.7, bicarb is 34, BUN is at 41 and a creatinine is 1.03. Potassium levels at 3.7. The risk of 9.4 with a hemoglobin of 13.1. 10/09/2023, the patient is on 3 L of oxygen by nasal cannula. Her breathing is improved significantly. She is off the BiPAP. I performed a right-sided thoracentesis on her yesterday and a total of 1.2 L of fluid was aspirated. Repeat chest x-ray showed no evidence of any pneumothorax. There is residual left-sided pleural effusion and the patient is to undergo a left-sided thoracentesis today. Meanwhile, she remains on Lasix. She is in a negative fluid balance. She is making excellent urine output. Still has edema lower extremities bilaterally. BUN is at 38 and a creatinine of 0.9 and sodium levels of 138. The white cell count is at 8 with a hemoglobin 12.5 and a platelet count of 270. The patient remains off Eliquis for now. She remains in atrial fibrillation. She is being considered for cardioversion at the later stage. She remains on Cardizem 30 mg by mouth every 8 hours and she is also on metoprolol 50 mg by mouth 3 times a day. Anticoagulation is on hold. 10/10/2023, the patient is doing extremely well and she is currently on 2 L of oxygen by nasal cannula. She underwent bilateral thoracentesis. The fluid on the right was 1.2 L and the fluid on the left was 500 mL. The patient is doing much better since. Her chest x-ray shows minimal atelectatic changes in the left lung base. Her breathing is comfortable. She remains on IV Lasix. Negative fluid balance. Her cardiac rhythm is still itchy fibrillation. She is back on anticoagulation and she is being considered for cardioversion within next 24 hours. Cardiology is on the case. Blood work from today shows a creatinine of 1.0 with a BUN of 36. Sodium is at 138. Potassium is at 3.6. The white cell count of 5.9 with a hemoglobin of 13.1. No other significant events otherwise. In terms of rate control, she is on Cardizem 30 mg by mouth every 8 hours and metoprolol 50 mg by mouth 3 times a day. Potassium is being replaced. She is also on amiodarone 400 mg by mouth twice a day. 10/11/2023, the patient is on room air oxygen. She is doing very well. No significant shortness of breath. Some residual lower extremity edema. -2.6 L fluid balance over the past 24 hours while being on IV Lasix. Creatinine is up to 1.24 with a BUN of 34. Sodium levels is 138. Potassium levels at 4. The patient is awake and alert and communicating. She denies the BiPAP overnight and currently she is on room air oxygen. Arteries under better control. The patient was taken off the Cardizem, she remains on amiodarone and metoprolol doses increase of 200 mg twice a day and the patient is on anticoagulation with Eliquis. No plans for cardioversion at this point in time. She is improving. She is a selective overflow. On 10/12/2023, the patient is found to be short of breath. After doing significant progress and being on room air oxygen, earlier last night, at around 10 PM, the patient became progressively more hypoxic. Initially she required 2 L and later on 5 L and subsequently she was placed on a BiPAP and she is currently on a BiPAP at a pressure of 16/6 cm water with an FiO2 of 45%. Her breathing is labored at this point in time. Note that the patient was being treated for the Cyst heart failure and fluid overload. She was being treated with Lasix. The patient was producing excellent urine output and she also had bilateral thoracentesis was further optimized her volume status and fluid balance. The patient denies having any chest pain. On examination, she has diminished breath sounds bilaterally along with some bibasilar crackles and breath sounds are slightly diminished on the right base compared to the left. Chest x-ray shows worsening in the interstitial infiltrates bilaterally and some limited patchy bibasilar opacities. No reported aspiration. The white cell count remains low at 7.3. Hemoglobin is at 13.1. BUN is 34 with a creatinine 1.24 and a sodium level is at 135. She is afebrile at this point in time. The patient has chronic atrial fibrillation and her current cardiac rhythm is sinus. On 10/13/2023, the patient is being seen for a follow-up. At this point in time, the patient is intubated on a mechanical ventilator. She is sedated on propofol. She was intubated yesterday because of an acute hypoxic respiratory failure and pulmonary edema. This morning, she was discussed with a rate of 24, tidal volume of 400, FiO2 is at 50% with a PEEP of 12. Chest x-ray shows improvement in the pulmonary edema compared to yesterday and a blood gas shows a pH of 7.52 with a pCO2 of 39 and pO2 of 120 and this was on FiO2 of 50%. The patient was taken off diuretics. Noted the patient was diuresed aggressively which is essentially pertinent acute kidney injury and the creatinine this morning is at 2.5 with a BUN of 54. Sodium levels of 136. Potassium levels at 4.7. The risk of 18.4 with a hemoglobin of 14.2. She was started on empiric antibiotic coverage with IV cefepime. Her cardiac rhythm is back in sinus and the patient is also undergoing related with Eliquis 5 mg by mouth twice a day. She remains on bronchodilators. The fluid balance over the past 24 hours as and possible 1.4 L. No fever. No chills. She is currently on no pressors. She'll be started on enteral feeding for nutritional support. Objective - Vital Signs Vital signs: Vital Signs Temp 98.1 F 10/13/23 08:00 Pulse 49 L 10/13/23 09:15 Resp 24 10/13/23 09:15 BP 93/49 10/13/23 09:00 Pulse Ox 98 10/13/23 09:15 FiO2 50 10/13/23 09:00 Intake & Output 10/12/23 10/13/23 10/13/23 18:59 06:59 18:59 Intake Total 73.183 1642.087 106 Output Total 0 290 15 Balance 73.183 1352.087 91 Weight 140.1 kg Intake: IV 1260 106 Calcium Gluconate in NaCl 100 1 gm In Saline 1 100ml. bag @ 100 mls/hr IVPB ONCE ONE Rx#:[id number] Pressure bags 60 6 Sodium Chloride 0.9% 1, 1100 100 000 ml @ 100 mls/hr IV . Q10H [facility] Rx#:[id number] Intake, IV Titration 73.183 382.087 Amount Furosemide 100 mg In 47.417 Sodium Chloride 0.9% 90 ml @ 5 MG/HR 5 mls/hr IV .Q20H [facility] Rx#:[id number] Norepinephrine 8 mg In 53.579 Sodium Chloride 0.9% 250 ml @ 0.03 MCG/KG/MIN 7.86 mls/hr IV .Q24H [facility] Rx#: [id number] propofoL 1,000 mg In 73.183 281.091 Empty Bag 1 bag @ 15 MCG/ KG/MIN 12.186 mls/hr IV . Q8H13M [facility] Rx#:[id number] Output: Urine 0 290 15 Other: Voiding Method Indwelling Catheter Indwelling Catheter ABP, PAP, CO, CI - Last Documented Arterial Blood Pressure 101/49 - Exam Sedated, comfortable on a mechanical ventilator, intubated. Orogastric and orotracheal tube are both in place. Head exam was generally normal. There was no scleral icterus or corneal arcus. Mucous membranes were moist. Head exam was generally normal. There was no scleral icterus or corneal arcus. Mucous membranes were moist. HEENT examination is grossly unremarkable. Neck supple. Full range of motion. No adenopathy thyromegaly positive for JVD is bilaterally Cardiovascular examination reveals an irregular rhythm and rate. S1-S2 normal. No S3 or S4. No discernible murmur noted. Heart sounds are distant. Lungs are clear Abdomen soft bowel sounds are heard. No masses or tenderness. Extremities are intact. No cyanosis or clubbing. Mild lower extremity edema. Skin is without rash or lesion. Neurologic examination is brief but nonfocal. - Labs CBC & Chem 7: 10/13/23 05:35 10/13/23 05:35 Labs: Abnormal Lab Results - Last 24 Hours (Table) 10/12/23 10/12/23 10/12/23 Range/Units 14:19 14:53 16:30 WBC 12.9 H (3.8-10.6) k/uL Neutrophils # 11.8 H (1.3-7.7) k/uL Lymphocytes # 0.7 L (1.0-4.8) k/uL D-Dimer (<0.60) mg/L FEU ABG pH (7.35-7.45) ABG pO2 60 L (83-108) mmHg ABG HCO3 28 H (21-25) mmol/L ABG Total CO2 30 H (19-24) mmol/L ABG O2 Saturation 88.6 L (94-97) % Sodium 134 L (137-145) mmol/L Potassium 6.4 H* (3.5-5.1) mmol/L Chloride 94 L (98-107) mmol/L Carbon Dioxide (22-30) mmol/L BUN 49 H (7-17) mg/dL Creatinine 2.40 H (0.52-1.04) mg/dL Glucose 154 H (74-99) mg/dL POC Glucose (mg/dL) (70-110) mg/dL 10/12/23 10/12/23 10/12/23 Range/Units 16:30 16:45 21:10 WBC (3.8-10.6) k/uL Neutrophils # (1.3-7.7) k/uL Lymphocytes # (1.0-4.8) k/uL D-Dimer 0.88 H (<0.60) mg/L FEU ABG pH 7.53 H (7.35-7.45) ABG pO2 197 H (83-108) mmHg ABG HCO3 35 H (21-25) mmol/L ABG Total CO2 36 H (19-24) mmol/L ABG O2 Saturation 99.3 H (94-97) % Sodium 136 L (137-145) mmol/L Potassium (3.5-5.1) mmol/L Chloride 95 L (98-107) mmol/L Carbon Dioxide 33 H (22-30) mmol/L BUN 51 H (7-17) mg/dL Creatinine 2.47 H (0.52-1.04) mg/dL Glucose 247 H (74-99) mg/dL POC Glucose (mg/dL) (70-110) mg/dL 10/13/23 10/13/23 10/13/23 Range/Units 00:07 05:34 05:35 WBC 18.4 H (3.8-10.6) k/uL Neutrophils # 16.5 H (1.3-7.7) k/uL Lymphocytes # (1.0-4.8) k/uL D-Dimer (<0.60) mg/L FEU ABG pH (7.35-7.45) ABG pO2 (83-108) mmHg ABG HCO3 (21-25) mmol/L ABG Total CO2 (19-24) mmol/L ABG O2 Saturation (94-97) % Sodium (137-145) mmol/L Potassium (3.5-5.1) mmol/L Chloride (98-107) mmol/L Carbon Dioxide (22-30) mmol/L BUN (7-17) mg/dL Creatinine (0.52-1.04) mg/dL Glucose (74-99) mg/dL POC Glucose (mg/dL) 130 H 164 H (70-110) mg/dL 10/13/23 10/13/23 10/13/23 Range/Units 05:35 05:40 06:51 WBC (3.8-10.6) k/uL Neutrophils # (1.3-7.7) k/uL Lymphocytes # (1.0-4.8) k/uL D-Dimer (<0.60) mg/L FEU ABG pH 7.52 H (7.35-7.45) ABG pO2 120 H (83-108) mmHg ABG HCO3 32 H (21-25) mmol/L ABG Total CO2 33 H (19-24) mmol/L ABG O2 Saturation 98.4 H (94-97) % Sodium 136 L (137-145) mmol/L Potassium (3.5-5.1) mmol/L Chloride 97 L (98-107) mmol/L Carbon Dioxide 31 H (22-30) mmol/L BUN 54 H (7-17) mg/dL Creatinine 2.52 H (0.52-1.04) mg/dL Glucose 149 H (74-99) mg/dL POC Glucose (mg/dL) 136 H (70-110) mg/dL Microbiology - Last 24 Hours (Table) 10/08/23 08:00 Gram Stain - Final Pleural Fluid Body Fluid Culture - Final Assessment and Plan Plan: Acute hypoxemic respiratory failure, secondary to worsening congestive heart failure. Patient had to be intubated yesterday for an acute pulmonary edema with rapid respiratory decompensation pH she was on BiPAP and subsequently she had to be intubated and placed on a mechanical ventilator and the patient failed BiPAP therapy. Chest x-ray still showing pulmonary edema although improved compared to yesterday. She has sustained acute kidney injury. Currently she is off diuretics. Pneumonia is felt to be less likely at this point in time. Acute noncardiogenic pulmonary edema/ards is also felt to be less likely. Acute kidney injury, creatinine is stable and urine operas gradually improving Bilateral pleural effusion post bilateral thoracentesis History of chronic atrial fibrillation, with rapid ventricular response. The patient converted to sinus rhythm. The patient is currently on anticoagulation with Eliquis. Patient is also on metoprolol 100 mg twice a day. She is also on amiodarone 400 mg by mouth twice a day. Her thyroid function tests are essentially within normal limits. She is back on anticoagulation with Eliquis. Escherichia coli urinary tract infection, treated History of hypertension. History of hyperlipidemia. History of pulmonary embolism. History of hypothyroidism. History of osteoarthritis. Plan: Keep the patient sedated on propofol Dropped FiO2 down to 40% drop the PEEP down to 10 Hold diuretics for the next 24 hours Cardiac rhythm is sinus Continue anticoagulation Continue IV cefepime as an empiric antibiotic coverage Initiate enteral feeding for nutritional support Continue amiodarone Continue bronchodilators and steroids. Gentle hydration with normal saline at the rate of 100 mL an hour We'll continue to follow. Condition is critical. We'll make further recomme ndations based on her progress. This evaluation was done in more than 30 minutes. Time with Patient: Greater than 30
[2023-10-13] MEDS: NOREPINEPHRINE 8 MG in SODIUM CHLORIDE 0.9% 250 ML IV SCH (16:38)
[2023-10-13 17:25] LABS: Glucose,Whole Blood 116 mg/dL (70-110)
[2023-10-13] MEDS ORDERED: METOPROLOL TARTRATE 50 MG TAB PO SCH (21:30)
[2023-10-13] MEDS: CEFEPIME 1 GM in SODIUM CHLORIDE 0.9% 50 ML IVPB SCH (21:44)
[2023-10-13] MEDS: ATORVASTATIN 80 MG TAB PO SCH (21:44)
[2023-10-13 23:40] LABS: Glucose,Whole Blood 131 mg/dL (70-110)
[2023-10-14] MEDS: INSULIN ASPART (NovoLOG) 100 UNIT/ML VIAL SQ SCH ×5 (00:04→23:58)
[2023-10-14] MEDS: IPRATROPIUM-ALBUTEROL 3 ML NEB INHALATION SCH ×6 (00:05→19:51)
[2023-10-14] MEDS: methylPREDNISolone SOD SUCCI 40 MG/ML 1 ML VIAL IV SCH ×4 (00:33→23:58)
[2023-10-14] MEDS: SODIUM CHLORIDE 0.9% 1,000 ML IV SCH ×3 (00:37→22:01)
[2023-10-14] MEDS: NOREPINEPHRINE 8 MG in SODIUM CHLORIDE 0.9% 250 ML IV SCH ×2 (01:20→17:42)
[2023-10-14 04:09] LABS: Basophils % (A) 0 %; Eosinophils % (A) 0 %; HCT 42.1 % (34.0-46.0); HGB 13.7 gm/dL (11.4-16.0); Lymphocytes # (A) 0.6 k/uL (1.0-4.8); Lymphocytes % (A) 2 %; MCHC 32.5 g/dL (31.0-37.0); MCV 98.5 fL (80.0-100.0); Mean Platelet Volume 7.7; Monocytes % (A) 4 %; Neutrophils # (A) 22.8 k/uL (1.3-7.7); Neutrophils % (A) 93 %; Platelet Count 381 k/uL (150-450); RBC 4.27 m/uL (3.80-5.40); RDW 14.4 % (11.5-15.5); WBC 24.6 k/uL (3.8-10.6)
[2023-10-14 04:31] LABS: African American GFR (CKD) 22 (>60 ml/min/1.73 sqM); Anion Gap 9 mmol/L; Blood Urea Nitrogen 62 mg/dL (7-17); Calcium 8.9 mg/dL (8.4-10.2); Carbon Dioxide 28 mmol/L (22-30); Chloride 99 mmol/L (98-107); Glucose 156 mg/dL (74-99); Magnesium 2.5 mg/dL (1.6-2.3); Non-African American GFR(CKD) 19 (>60 ml/min/1.73 sqM); Potassium 4.3 mmol/L (3.5-5.1); Sodium 136 mmol/L (137-145)
[2023-10-14 05:44] LABS: Glucose,Whole Blood 190 mg/dL (70-110)
[2023-10-14 06:26] LABS: ABG Base Excess 5.4 mmol/L; ABG HCO3 30 mmol/L (21-25); ABG Oxygen Saturation 97.8 % (94-97); ABG PCO2 45 mmHg (35-45); ABG PH 7.43 (7.35-7.45); ABG PO2 118 mmHg (83-108); ABG TCO2 31 mmol/L (19-24); Allen Test Performed? Yes
[2023-10-14] MEDS: LEVOTHYROXINE 88 MCG TAB PO SCH ×2 (06:38→10:53)
--- NOTE | 2023-10-14 07:24 | P.PN ---
Subjective Progress Note Date: 10/14/23 Principal diagnosis: Persistent atrial fibrillation The patient is a 73-year-old female patient with history of heart failure as well as atrial fibrillation as well as hypertension and dyslipidemia and renal failure was admitted to the hospital with acute hypoxic respiratory failure. Initially she was started on diuretics for heart failure subsequently she developed renal failure and the diuretics was a systolic. Currently she is intubated and she is on mechanical ventilation for possible underlying pneumonia/sepsis and currently she is on norepinephrine 10/14/2023 The patient was seen and evaluated this morning. The patient remains intubated on mechanical ventilation. She remains hypotensive requiring norepinephrine. She is on amiodarone orally. She remains in nature fibrillation with overall heart rate around 120 bpm. I'm going to add a small dose of beta jorge alberto with metoprolol tartrate 12.5 mg by mouth twice a day to the current medical regimen. Continue oral anticoagulation. She is in process of having an echocardiogram later on today. The examination is remarkable for irregular rhythm with a systolic murmur at the right and left upper sternal border and bilateral upper and lower extremities edema Assessment Heart failure with preserved ejection fraction Pneumonia/sepsis Acute hypoxic respiratory failure secondary to the above Acute on chronic renal failure Atrial fibrillation with uncontrolled heart rate Multiple comorbid conditions Plan Add beta jorge alberto to the current medical regimen as described above Continue oral anticoagulation Follow-up on the echocardiogram Follow-up with the patient Objective - Vital Signs Vital signs: Vital Signs Temp 98.7 F 10/14/23 04:00 Pulse 134 H 10/14/23 07:00 Resp 24 10/14/23 07:00 BP 103/72 10/14/23 07:00 Pulse Ox 96 10/14/23 07:00 FiO2 40 10/14/23 04:00 Intake & Output 10/13/23 10/14/23 10/14/23 18:59 06:59 18:59 Intake Total 1118.804 7338.408 106 Output Total 280 310 35 Balance 9116.695 3441.408 71 Weight 142.9 kg Intake: IV 1372 1372 106 Cefepime 2 gm In Sodium 100 100 Chloride 0.9% 100 ml @ 25 mls/hr IVPB Q12HR ANNA Rx #:[id number] Pressure bags 72 72 6 Sodium Chloride 0.9% 1, 1200 1200 100 000 ml @ 100 mls/hr IV . Q10H ANNA Rx#:[id number] Intake, IV Titration 354.980 354.408 Amount Norepinephrine 8 mg In 157.898 54.889 Sodium Chloride 0.9% 250 ml @ 0.03 MCG/KG/MIN 7.86 mls/hr IV .Q24H ANNA Rx#: [id number] propofoL 1,000 mg In 197.082 299.519 Empty Bag 1 bag @ 15 MCG/ KG/MIN 12.186 mls/hr IV . Q8H13M ANNA Rx#:[id number] Output: Urine 280 310 35 Other: Voiding Method Indwelling Catheter Indwelling Catheter ABP, PAP, CO, CI - Last Documented Arterial Blood Pressure 99/62 - Labs CBC & Chem 7: 10/14/23 03:10 10/14/23 03:10 Labs: Abnormal Lab Results - Last 24 Hours (Table) 10/13/23 10/13/23 10/13/23 Range/Units 11: 17:25 23:37 WBC (3.8-10.6) k/uL Neutrophils # (1.3-7.7) k/uL Lymphocytes # (1.0-4.8) k/uL ABG pO2 (83-108) mmHg ABG HCO3 (21-25) mmol/L ABG Total CO2 (19-24) mmol/L ABG O2 Saturation (94-97) % Sodium (137-145) mmol/L BUN (7-17) mg/dL Creatinine (0.52-1.04) mg/dL Glucose (74-99) mg/dL POC Glucose (mg/dL) 142 H 116 H 131 H (70-110) mg/dL Magnesium (1.6-2.3) mg/dL 10/14/23 10/14/23 10/14/23 Range/Units 03:10 03:10 05:43 WBC 24.6 H (3.8-10.6) k/uL Neutrophils # 22.8 H (1.3-7.7) k/uL Lymphocytes # 0.6 L (1.0-4.8) k/uL ABG pO2 (83-108) mmHg ABG HCO3 (21-25) mmol/L ABG Total CO2 (19-24) mmol/L ABG O2 Saturation (94-97) % Sodium 136 L (137-145) mmol/L BUN 62 H (7-17) mg/dL Creatinine 2.39 H (0.52-1.04) mg/dL Glucose 156 H (74-99) mg/dL POC Glucose (mg/dL) 190 H (70-110) mg/dL Magnesium 2.5 H (1.6-2.3) mg/dL 10/14/23 Range/Units 06:21 WBC (3.8-10.6) k/uL Neutrophils # (1.3-7.7) k/uL Lymphocytes # (1.0-4.8) k/uL ABG pO2 118 H (83-108) mmHg ABG HCO3 30 H (21-25) mmol/L ABG Total CO2 31 H (19-24) mmol/L ABG O2 Saturation 97.8 H (94-97) % Sodium (137-145) mmol/L BUN (7-17) mg/dL Creatinine (0.52-1.04) mg/dL Glucose (74-99) mg/dL POC Glucose (mg/dL) (70-110) mg/dL Magnesium (1.6-2.3) mg/dL
[2023-10-14] MEDS: PANTOPRAZOLE 40 MG/10 ML VIAL IVP SCH (08:45)
--- NOTE | 2023-10-14 08:47 | XR ---
EXAMINATION TYPE: XR chest 1V portable DATE OF EXAM: 10/14/2023 5:33 AM CLINICAL INDICATION:Female, 73 years old with history of Tube placement; [facility] COMPARISON: Chest radiographs from 10/13/2023 TECHNIQUE: XR chest 1V portable Frontal view of the chest. FINDINGS: Lungs/Pleura: No evidence of focal consolidation or pneumothorax. Blunting of the costophrenic angles is present. Pulmonary vascularity: Unremarkable. Heart/mediastinum: Cardiomediastinal silhouette is unremarkable. Musculoskeletal: No acute osseous pathology. Other findings: None Lines/Tubes: Endotracheal tube with distal tip 4.8 cm above the blade. Nasogastric tube with its distal tip and side-port projecting under the diaphragm. Left central venous catheter with distal tip at the cavoatrial junction. IMPRESSION: 1. Low lung volumes with grossly stable lung parenchyma opacities predominantly in lung bases. Layer ing bilateral pleural effusions. 2. Support tubes in satisfactory position.
[2023-10-14] MEDS: AMIODARONE 200 MG TAB PO SCH (08:50)
[2023-10-14] MEDS: MAGNESIUM OXIDE 400 MG TAB PO SCH (08:50)
[2023-10-14] MEDS: APIXABAN 5 MG TAB PO SCH ×2 (08:50→20:27)
[2023-10-14] MEDS: guaiFENesin 600 MG TABLET.ER PO SCH ×2 (08:52→20:29)
[2023-10-14] MEDS: CHLORHEXIDINE GLUCONATE 15 ML CUP MUCOUS MEM SCH ×2 (08:52→20:29)
[2023-10-14] MEDS ORDERED: METOPROLOL TARTRATE 12.5 MG TAB PO SCH (09:00)
[2023-10-14] MEDS: CEFEPIME 1 GM in SODIUM CHLORIDE 0.9% 50 ML IVPB SCH ×2 (09:39→20:27)
[2023-10-14] MEDS: POTASSIUM CHLORIDE ER 20 MEQ TAB.ER PO SCH (09:53)
[2023-10-14] MEDS ORDERED: METOPROLOL TARTRATE 12.5 MG TAB PO STA (10:58)
[2023-10-14 13:10] LABS: Glucose,Whole Blood 159 mg/dL (70-110)
--- NOTE | 2023-10-14 13:38 | P.PN ---
Subjective Progress Note Date: 10/14/23 Principal diagnosis: Acute hypoxic respiratory failure secondary to acute congestive heart failure with preserved ejection fraction and possible underlying pneumonia. 73-year-old female who presented to the emergency department on September 26, complaining of arrhythmias, and palpitations. The patient does have a history of hypertension, atrial fibrillation, hyperlipidemia, pulmonary embolism, and hypothyroidism. The patient apparently was having some lower extremity edema, shortness of breath, and orthopnea. She also had mild exertional dyspnea. The patient denied any chest pain or chest discomfort. She was seen by the ER physician, and admitted with a diagnosis of atrial fibrillation, CHF, and urinary tract infection. Today, a rapid response was called on this patient, and, R ICU charge nurse, who evaluated the patient, and thought the patient should come down to the intensive care unit, for further monitoring and management. She was given some IV Lasix, and placed on BiPAP, with settings of 16/6, and 100%. She was seen in the intensive care unit, room 255. She was sitting up in bed, with mild respiratory distress, on the BiPAP device. White count was 13.7, hemoglobin 14.5, hematocrit 44.4, and a normal platelet count. Sodium 135, potassium 3.9, chlorides 96, CO2 27, anion gap 12, BUN 37, and creatinine 1.26. N-terminal proBNP, on September 29, was 7020. The patient had chest x-rays on the and on the . Today's chest x-ray shows worsening pulmonary edema. On 10/12/2023, the patient is found to be short of breath. After doing signifi cant progress and being on room air oxygen, earlier last night, at around 10 PM, the patient became progressively more hypoxic. Initially she required 2 L and later on 5 L and subsequently she was placed on a BiPAP and she is currently on a BiPAP at a pressure of 16/6 cm water with an FiO2 of 45%. Her breathing is labored at this point in time. Note that the patient was being treated for the Cyst heart failure and fluid overload. She was being treated with Lasix. The patient was producing excellent urine output and she also had bilateral thoracentesis was further optimized her volume status and fluid balance. The patient denies having any chest pain. On examination, she has diminished breath sounds bilaterally along with some bibasilar crackles and breath sounds are slightly diminished on the right base compared to the left. Chest x-ray shows worsening in the interstitial infiltrates bilaterally and some limited patchy bibasilar opacities. No reported aspiration. The white cell count remains low at 7.3. Hemoglobin is at 13.1. BUN is 34 with a creatinine 1.24 and a sodium level is at 135. She is afebrile at this point in time. The patient has chronic atrial fibrillation and her current cardiac rhythm is sinus. On 10/13/2023, the patient is being seen for a follow-up. At this point in time, the patient is intubated on a mechanical ventilator. She is sedated on pr opofol. She was intubated yesterday because of an acute hypoxic respiratory failure and pulmonary edema. This morning, she was discussed with a rate of 24, tidal volume of 400, FiO2 is at 50% with a PEEP of 12. Chest x-ray shows improvement in the pulmonary edema compared to yesterday and a blood gas shows a pH of 7.52 with a pCO2 of 39 and pO2 of 120 and this was on FiO2 of 50%. The patient was taken off diuretics. Noted the patient was diuresed aggressively which is essentially pertinent acute kidney injury and the creatinine this morning is at 2.5 with a BUN of 54. Sodium levels of 136. Potassium levels at 4.7. The risk of 18.4 with a hemoglobin of 14.2. She was started on empiric antibiotic coverage with IV cefepime. Her cardiac rhythm is back in sinus and the patient is also undergoing related with Eliquis 5 mg by mouth twice a day. She remains on bronchodilators. The fluid balance over the past 24 hours as and possible 1.4 L. No fever. No chills. She is currently on no pressors. She'll be started on enteral feeding for nutritional support. Patient was reevaluated today on 10/14/2023, patient remains in the ICU, intubated and mechanically ventilated, she is on assist control rate of 24 tidal volume 400 FiO2 40% and PEEP of 10 however her ABG showed a pO2 of 118 pCO2 45 pH of 7.43, hence I cut down the PEEP from 10-8. Patient was initially admitted on 09/26 intubated on 10/12 and remains intubated. She was admitted mostly with congestive heart failure, atrial fibrillation and RVR, and she has a preserved ejection fraction. Chest x-ray continues to show evidence of congestive heart failure, underlying pneumonia is not entirely ruled out but felt to be less likely her pleural effusion was clearly transudative in nature consistent with CHF cytology on the fluid from the pleural effusion is also negative for underlying malignancy it patient continues to have leukocytosis with WBC of 24.6 hemoglobin 15.7, basic metabolic profile is normal however BUN is 62 creatinine 2.39, slightly worse compared to baseline of 1.10 few days ago, and diuretics we re placed temporarily on hold BNP level is over 9000. Patient remains on norepinephrine at 0.0; 0/m on propofol at 30 mcg/kg/m also on 0.9 normal saline at 100 mL per hour. Patient remains in atrial fibrillation with RVR, she is on Lopressor at 50 twice a day she is also on amiodarone orally cardiology cut down the Lopressor down to 12.5 twice a day because of low blood pressure. Patient is intermittently receiving Lasix her urine output seems to be about 50 mL per hour. Antibiotics [place] patient remains on cefepime. Objective - Vital Signs Vital signs: Vital Signs Temp 98.6 F 10/14/23 12:00 Pulse 131 H 10/14/23 13:00 Resp 24 10/14/23 13:00 BP 104/70 10/14/23 10:45 Pulse Ox 95 10/14/23 13:00 FiO2 40 10/14/23 12:00 Intake & Output 10/13/23 10/14/23 10/14/23 18:59 06:59 18:59 Intake Total 4758.105 9948.408 1106.128 Output Total 280 310 330 Balance 7871.478 5769.408 776.128 Weight 142.9 kg 142.9 kg Intake: IV 1372 1372 742 Cefepime 2 gm In Sodium 100 100 Chloride 0.9% 100 ml @ 25 mls/hr IVPB Q12HR ANNA Rx #:[id number] Pressure bags 72 72 42 Sodium Chloride 0.9% 1, 1200 1200 700 000 ml @ 100 mls/hr IV . Q10H ANNA Rx#:[id number] Intake, IV Titration 354.980 354.408 274.128 Amount Norepinephrine 8 mg In 157.898 54.889 142.790 Sodium Chloride 0.9% 250 ml @ 0.03 MCG/KG/MIN 7.86 mls/hr IV .Q24H ANNA Rx#: [id number] propofoL 1,000 mg In 197.082 299.519 131.338 Empty Bag 1 bag @ 15 MCG/ KG/MIN 12.186 mls/hr IV . Q8H13M ANNA Rx#:[id number] Tube Feeding 60 Other 30 Output: Urine 280 310 330 Other: Voiding Method Indwelling Catheter Indwelling Catheter ABP, PAP, CO, CI - Last Documented Arterial Blood Pressure 111/63 - Exam Physical Exam: Revealed 73-year-old female obese in no distress intubated and mechanically ventilated Head: Atraumatic normocephalic. HEENT:[Neck is supple.] [No neck masses.] [No thyromegaly.] [No JVD.] Endotracheal tube and orogastric tube are intact Chest: [Symmetrical chest expansion crackles at the bases bilaterally Cardiac Exam: Irregular irregular rhythm. [Normal S1 and S2, no S3 gallop, 2/6 systolic murmur thought the precordium. Abdomen: [Soft, nontender, no megaly, no rebound, no guarding, normal bowel sounds.] Extremities: [No clubbing, 1+ bipedal edema, no cyanosis.] Good distal pulses bilaterally. Neurological Exam: [Could not assess patient is sedated on propofol. Psychiatric: Could not assess, patient is sedated Skin: No rashes - Labs CBC & Chem 7: 10/14/23 03:10 10/14/23 03:10 Labs: Abnormal Lab Results - Last 24 Hours (Table) 10/13/23 10/13/23 10/14/23 Range/Units 17:25 23:37 03:10 WBC 24.6 H (3.8-10.6) k/uL Neutrophils # 22.8 H (1.3-7.7) k/uL Lymphocytes # 0.6 L (1.0-4.8) k/uL ABG pO2 (83-108) mmHg ABG HCO3 (21-25) mmol/L ABG Total CO2 (19-24) mmol/L ABG O2 Saturation (94-97) % Sodium (137-145) mmol/L BUN (7-17) mg/dL Creatinine (0.52-1.04) mg/dL Glucose (74-99) mg/dL POC Glucose (mg/dL) 116 H 131 H (70-110) mg/dL Magnesium (1.6-2.3) mg/dL 10/14/23 10/14/23 10/14/23 Range/Units 03:10 05:43 06:21 WBC (3.8-10.6) k/uL Neutrophils # (1.3-7.7) k/uL Lymphocytes # (1.0-4.8) k/uL ABG pO2 118 H (83-108) mmHg ABG HCO3 30 H (21-25) mmol/L ABG Total CO2 31 H (19-24) mmol/L ABG O2 Saturation 97.8 H (94-97) % Sodium 136 L (137-145) mmol/L BUN 62 H (7-17) mg/dL Creatinine 2.39 H (0.52-1.04) mg/dL Glucose 156 H (74-99) mg/dL POC Glucose (mg/dL) 190 H (70-110) mg/dL Magnesium 2.5 H (1.6-2.3) mg/dL 10/14/23 Range/Units 13:09 WBC (3.8-10.6) k/uL Neutrophils # (1.3-7.7) k/uL Lymphocytes # (1.0-4.8) k/uL ABG pO2 (83-108) mmHg ABG HCO3 (21-25) mmol/L ABG Total CO2 (19-24) mmol/L ABG O2 Saturation (94-97) % Sodium (137-145) mmol/L BUN (7-17) mg/dL Creatinine (0.52-1.04) mg/dL Glucose (74-99) mg/dL POC Glucose (mg/dL) 159 H (70-110) mg/dL Magnesium (1.6-2.3) mg/dL Microbiology - Last 24 Hours (Table) 10/12/23 16:35 Gram Stain - Preliminary Sputum Sputum Culture - Preliminary Assessment and Plan Assessment: Impression: Acute hypoxic respiratory failure secondary to acute diastolic congestive heart failure Bilateral pleural effusions/transudative in nature. Based on protein and LDH levels in the pleural effusion. Patient is status post bilateral thoracentesis Chronic atrial fibrillation with RVR, being addressed by cardiology however does not seem to be improving in spite of adequate treatment E. coli urinary tract infection, remains on antibiotics Benign essential hypertension Dyslipidemia History of pulmonary embolism Hypothyroidism Degenerative joint disease Possible underlying pneumonia but felt to be less likely based on the clinical history Recommendation: Continue diuretics Continue antibiotics empirically Continue ventilatory support and daily assessment of mental status off sedation Continue nutritional support/enteral feeding Continue anticoagulation therapy Continue amiodarone and beta blockers Continue to monitor closely renal profile and gentle hydration at times if necessary I believe the patient will need more diuretics then fluids at this point. Continue bronchodilators and steroids Overall prognostic picture is poor Critical care time is over 30 minutes. We will continue to follow Time with Patient: Greater than 30
[2023-10-14] MEDS: METOPROLOL TARTRATE 25 MG TAB PO SCH ×2 (14:09→22:01)
--- NOTE | 2023-10-14 15:34 | P.PN ---
Subjective Progress Note Date: 10/14/23 H&P Date: 09/27/23 Chief Complaint: Palpitations, dyspnea This is a 73-year-old female with past medical history significant for atrial fibrillation, PE, status post EKOS 02/2022, hypertension, hypothyroidism admitted with atrial fibrillation with RVR and multiple other medical issues.Evaluated and treated by cardiology. Presented to the hospital with complaints of heart palpitations, hypertension , shortness of breath 1 week.Positive orthopnea , reports sleeping sitting up in a recliner as well as living downstairs in her home to avoid climbing stairs. Cardizem drip initiated, rate improving. Cardiology consult in place. Troponins negative 3 , proBNP pending .EKG rate atrial fibrillation with RVR heart rate 132 . Echo reported normal LV f unction, mild pulmonary hypertension, moderate mitral and moderate tricuspid regurgitation .Chest x-ray no acute pulmonary process. UA reports positive nitrates, many bacteria, small leukocytes, urine culture pending. 09/30/2023 recently placed on 2 L nasal cannula, then increased to 4 L, ebony almonte O2 sats in the low 90s .complains of mild increased shortness of breath, which she reports started actually during the night. She has been on Lasix IV push every 12 hours, 24-hour I&O reflecting a negative fluid balance. Renal function mildly worsened, BUN 37, creatinine 1.26. Sodium 125 .Maintained on Rocephin for acute UTI. Afebrile, WBC 13.7. Blood sugars controlled. 10/01/23 yesterday developed worsening pulmonary edema, transfer to ICU. Chest x-ray at that time reported worsening of large perihilar consolidation noted greater on the right, pulmonary edema versus diffuse pneumonia. Received additional Lasix IV push, frequency increased yesterday diuresed well with 24-hour I&O reflecting a negative fluid balance. Maintained on BiPAP throughout the night, placed on 13 L nasal cannula to facilitate patient's diet intake this morning. Chest x-ray repeated this morning reporting improving bilateral areas of consolidation. Telemetry sinus rhythm, continues on Cardizem drip, tachycardic with heart rates in the 130s to 140s. Denies chest pain, palpitations. Afebrile, normal WBC. BUN 37, creatinine 1.30. Blood sugars controlled. 10/07/23 used BiPAP overnight, currently maintaining O2 sats in the 90s on 6 L nasal cannula. Chest x-ray reported bilateral pleural effusions, chest ultrasound reported right pleural effusion 6.8 cm, left pleural effusion 7.5 cm with both marked for possible thoracentesis. Diuresing on Lasix IV push with 24-hour I&O reflecting a negative fluid balance, but continues to have significant lower extremity edema. Telemetry atrial fibrillation with heart rates up to 120s. Reports palpitations, no chest pain. Evaluated by ca rdiology, discussing RICO with cardioversion. 10/08/23 Eliquis on hold. status post right thoracentesis with 1200 MLS turbid pleural drainage aspirated. Tolerated procedure well. Postprocedure x-ray reported no pneumothorax, bilateral lower lobe infiltrate and small left effusion. Using BiPAP at night. Currently seem on Lasix IV push with 24-hour I&O reflecting a negative fluid balance. Telemetry atrial fibrillation with heart rates ranging from 90 to 110s. Maintaining O2 in the high 90s on 4-5 L nasal cannula. Bicarb 34, BUN 41, creatinine 1.03. 10/09/2023 chest x-ray reporting bilateral lower lobe infiltrate and small left effusion/no sizable pleural effusion on the right/no pneumothorax. Status post left thoracentesis this morning with 550 MLS turbid pleural drainage aspirated. Tolerated procedure well. Postprocedure chest x-ray reported no pneumothorax. Maintained on oral antiarrhythmics ,telemetry reporting atrial fibrillation. Cardioversion pending. Afebrile, normal WBC. Continues diuresing well on Lasix IV push with 24-hour I&O reflecting a negative fluid balance. sodium 136, potassium 3.8, bicarb 37, BUN 38, creatinine 0.97. Maintaining O2 sats in the 90s on 3 L nasal cannula. 10/10/2023 Eliquis resumed yesterday after thoracentesis. Pleural fluid Cy tology pending . Telemetry atrial fibrillation, heart rate better controlled today on oral amiodarone, metoprolol, Cardizem. Cardioversion pending. BiPAP throughout the night. Denies chest pain, palpitations or shortness of breath. Maintaining O2 sats in the 90s on 2 L nasal cannula. Continues diuresing well on Lasix IV push with 24-hour I&O reflecting a negative fluid balance. Afebrile, normal WBC. Potassium 3.6, receiving replacement. BUN 36, creatinine 1.1 10/11/2023 BiPAP for short while during the night. Currently maintaining O2 sat in the 90s on room air. Continues diuresing well on Lasix IV push with 24-hour I&O reflecting a negative fluid balance. BUN 34, creatinine 1.24. Pleural fluid cytology pending. Cardizem discontinued, continues on amiodarone with metoprolol increased, A. fib controlled. Afebrile, normal WBC. Reports she ambulated yesterday, tolerated exertion well, O2 sat on room air after ambulation 95%. 10/14/2023 intubated, FiO2 40%/PEEP recently decreased to 8. Chest x-ray reported low lung volumes with grossly stable lung parenchyma opacities predominantly in lung bases, layering bilateral pleural effusions, Continues on diprovan, levophed and IV fluid hydration with saline 100 MLS an hour. Right pleural fluid cytology negative for malignancy. BNP 9280. BUN 62, creatinine increased to 2.39, lasix resumed. Continues on cefepime. Afebrile, WBC 24.6. Telemetry atrial fibrillation with RVR, antiarrhythmics adjusted per cardiology. Objective - Vital Signs Vital signs: Vital Signs Temp 98.6 F 10/14/23 12:00 Pulse 131 H 10/14/23 13:00 Resp 24 10/14/23 13:00 BP 104/70 10/14/23 10:45 Pulse Ox 95 10/14/23 13:00 FiO2 40 10/14/23 12:00 Intake & Output 10/13/23 10/14/23 10/14/23 18:59 06:59 18:59 Intake Total 0159.572 1043.408 1292.744 Output Total 280 310 390 Balance 3892.164 5290.408 902.744 Weight 142.9 kg 142.9 kg Intake: IV 1372 1372 848 Cefepime 2 gm In Sodium 100 100 Chloride 0.9% 100 ml @ 25 mls/hr IVPB Q12HR ANNA Rx #:[id number] Pressure bags 72 72 48 Sodium Chloride 0.9% 1, 1200 1200 800 000 ml @ 100 mls/hr IV . Q10H ANNA Rx#:[id number] Intake, IV Titration 354.980 354.408 334.744 Amount Norepinephrine 8 mg In 157.898 54.889 161.567 Sodium Chloride 0.9% 250 ml @ 0.03 MCG/KG/MIN 7.86 mls/hr IV .Q24H ANNA Rx#: [id number] propofoL 1,000 mg In 197.082 299.519 173.177 Empty Bag 1 bag @ 15 MCG/ KG/MIN 12.186 mls/hr IV . Q8H13M ANNA Rx#:[id number] Tube Feeding 80 Other 30 Output: Urine 280 310 390 Other: Voiding Method Indwelling Catheter Indwelling Catheter Indwelling Catheter ABP, PAP, CO, CI - Last Documented Arterial Blood Pressure 111/63 - Exam PHYSICAL EXAM: VITAL SIGNS: [As above] GENERAL: Intubated, on mechanical ventilator and sedated,NAD HEENT: Normocephalic, Conjunctivae normal. NECK: Supple, No JVD. CARDIOVASCULAR: S1, S2. irregular. Tachycardic. Systolic murmur. RESPIRATION: Unlabored, equal air entry, fine bibasilar crackles ABDOMEN: Soft, nondistended, nontender. +BS LEGS: Mild bilateral lower extremity edema. NERVOUS SYSTEM: Unable to assess, patient is intubated and sedated Skin: Warm and dry, no rash - Labs CBC & Chem 7: 10/14/23 03:10 10/14/23 03:10 Labs: Abnormal Lab Results - Last 24 Hours (Table) 10/13/23 10/13/23 10/14/23 Range/Units 17:25 23:37 03:10 WBC 24.6 H (3.8-10.6) k/uL Neutrophils # 22.8 H (1.3-7.7) k/uL Lymphocytes # 0.6 L (1.0-4.8) k/uL ABG pO2 (83-108) mmHg ABG HCO3 (21-25) mmol/L ABG Total CO2 (19-24) mmol/L ABG O2 Saturation (94-97) % Sodium (137-145) mmol/L BUN (7-17) mg/dL Creatinine (0.52-1.04) mg/dL Glucose (74-99) mg/dL POC Glucose (mg/dL) 116 H 131 H (70-110) mg/dL Magnesium (1.6-2.3) mg/dL 10/14/23 10/14/23 10/14/23 Range/Units 03:10 05:43 06:21 WBC (3.8-10.6) k/uL Neutrophils # (1.3-7.7) k/uL Lymphocytes # (1.0-4.8) k/uL ABG pO2 118 H (83-108) mmHg ABG HCO3 30 H (21-25) mmol/L ABG Total CO2 31 H (19-24) mmol/L ABG O2 Saturation 97.8 H (94-97) % Sodium 136 L (137-145) mmol/L BUN 62 H (7-17) mg/dL Creatinine 2.39 H (0.52-1.04) mg/dL Glucose 156 H (74-99) mg/dL POC Glucose (mg/dL) 190 H (70-110) mg/dL Magnesium 2.5 H (1.6-2.3) mg/dL 10/14/23 Range/Units 13:09 WBC (3.8-10.6) k/uL Neutrophils # (1.3-7.7) k/uL Lymphocytes # (1.0-4.8) k/uL ABG pO2 (83-108) mmHg ABG HCO3 (21-25) mmol/L ABG Total CO2 (19-24) mmol/L ABG O2 Saturation (94-97) % Sodium (137-145) mmol/L BUN (7-17) mg/dL Creatinine (0.52-1.04) mg/dL Glucose (74-99) mg/dL POC Glucose (mg/dL) 159 H (70-110) mg/dL Magnesium (1.6-2.3) mg/dL Microbiology - Last 24 Hours (Table) 10/12/23 16:35 Gram Stain - Preliminary Sputum Sputum Culture - Preliminary Assessment and Plan Assessment: Chronic Atrial fibrillation with rapid ventricular rate Secondary Hypotension Acute on chronic CHF exacerbation, diastolic dysfunction, ef 55-60%. Bilateral pleural effusions status post bilateral thoracentesis,transudative. Cytology negative for malignancy. Acute hypoxic respiratory failure , on mechanical ventilator-dependent ,secondary to the above Acute UTI, culture reporting E. coli Acute renal failure Pulmonary embolism bilaterally status post EKOS, 03/14/2022 Pulmonary hypertension Moderate mitral and tricuspid regurgitation Hypothyroidism Hypertension, history of Hyperlipidemia Osteoarthritis with history right knee placement in July 2022. Morbid obesity, BMI 46 Plan: Continue on current medication regime ,monitoring and symptomatic treatmen t. ICU management as per vacuum kettle cook. Echo pending. Antiarrhythmics as per cardiology. Prognosis guarded given multiple complex medical issues. The impression and plan of care has been dictated as directed. : I performed a history and examination of this patient, discussed the same with the dictator. I agree with the dictator's note ,documented as a scribe. Any additional findings or plans will be noted.
--- NOTE | 2023-10-14 18:05 | CA ---
Transthoracic Echo Report Name: Mariel Hidalgo Age: 73 Gender: F : 1950 Exam Date: 10/14/2023 08:09 Exam Location: [place] [facility] Ht (in): 65 Wt (lb): 308 Ordering Physician: Cedrick Ramachandran Attending/Referring Phys: Health Care Assistant Rhea Solis RDCS Procedure CPT: Indications: fluid overload Cardiac Hx: Technical Quality: Poor Contrast 1: Definity Total Dose (mL): 2 Contrast 2: Total Dose (mL): MEASUREMENTS (Male / Female) Normal Values FINDINGS Left Ventricle Left ventricular ejection fraction is estimated at 45-50 %. Left ventricular hypertrophy. Right Ventricle Right Atrium Left Atrium Mitral Valve Aortic Valve Tricuspid Valve Pulmonic Valve Pericardium Minimal pericardial effusion (normal variant). Aorta CONCLUSIONS Technically suboptimal echo secondary to poor echo windows t contrast was used mild LV dysfunction Previewed by: Dr. Fortunato Randhawa MD (Electronically Signed) Final Date: 14 October 2023 18:04
[2023-10-14 18:28] LABS: Glucose,Whole Blood 165 mg/dL (70-110)
[2023-10-14] MEDS: ATORVASTATIN 80 MG TAB PO SCH (20:27)
[2023-10-14] MEDS: FUROSEMIDE 10 MG/ML 4 ML VIAL IV SCH (20:29)
[2023-10-14] MEDS ORDERED: METOPROLOL TARTRATE 25 MG TAB PO SCH (21:00)
[2023-10-14 23:54] LABS: Glucose,Whole Blood 157 mg/dL (70-110)
[2023-10-15] MEDS: IPRATROPIUM-ALBUTEROL 3 ML NEB INHALATION SCH ×6 (00:03→20:45)
[2023-10-15 04:34] LABS: African American GFR (CKD) 37 (>60 ml/min/1.73 sqM); Anion Gap 6 mmol/L; Blood Urea Nitrogen 62 mg/dL (7-17); Calcium 8.4 mg/dL (8.4-10.2); Carbon Dioxide 28 mmol/L (22-30); Chloride 104 mmol/L (98-107); Glucose 173 mg/dL (74-99); Magnesium 2.7 mg/dL (1.6-2.3); Non-African American GFR(CKD) 32 (>60 ml/min/1.73 sqM); Potassium 3.7 mmol/L (3.5-5.1); Sodium 138 mmol/L (137-145)
[2023-10-15 04:35] LABS: Basophils % (A) 0 %; Eosinophils % (A) 0 %; HCT 38.7 % (34.0-46.0); HGB 12.7 gm/dL (11.4-16.0); Hypochromasia Slight; Lymphocytes # (A) 0.5 k/uL (1.0-4.8); Lymphocytes % (A) 3 %; MCH 32.4 pg (25.0-35.0); MCHC 32.9 g/dL (31.0-37.0); MCV 98.4 fL (80.0-100.0); Mean Platelet Volume 7.7; Monocytes # (A) 0.6 k/uL (0-1.0); Monocytes % (A) 4 %; Neutrophils # (A) 13.6 k/uL (1.3-7.7); Neutrophils % (A) 92 %; Platelet Count 322 k/uL (150-450); RBC 3.93 m/uL (3.80-5.40); RDW 14.5 % (11.5-15.5); WBC 14.7 k/uL (3.8-10.6)
[2023-10-15 06:00] LABS: ABG Base Excess 5.9 mmol/L; ABG HCO3 30 mmol/L (21-25); ABG Oxygen Saturation 96.1 % (94-97); ABG PCO2 46 mmHg (35-45); ABG PH 7.43 (7.35-7.45); ABG PO2 84 mmHg (83-108); ABG TCO2 32 mmol/L (19-24); Allen Test Performed? Yes
[2023-10-15 06:27] LABS: Glucose,Whole Blood 187 mg/dL (70-110)
[2023-10-15] MEDS: INSULIN ASPART (NovoLOG) 100 UNIT/ML VIAL SQ SCH ×3 (06:34→18:21)
[2023-10-15] MEDS: LEVOTHYROXINE 88 MCG TAB PO SCH (06:34)
[2023-10-15] MEDS ORDERED: Potassium Replacement Protocol 1 EACH MISC MISCELLANE PRN (07:00)
--- NOTE | 2023-10-15 07:21 | P.PN ---
Subjective Progress Note Date: 10/15/23 Principal diagnosis: Persistent atrial fibrillation The patient is a 73-year-old female patient with history of heart failure as well as atrial fibrillation as well as hypertension and dyslipidemia and renal failure was admitted to the hospital with acute hypoxic respiratory failure. Initially she was started on diuretics for heart failure subsequently she developed renal failure and the diuretics was a systolic. Currently she is intubated and she is on mechanical ventilation for possible underlying pneumonia/sepsis and currently she is on norepinephrine 10/14/2023 The patient was seen and evaluated this morning. The patient remains intubated on mechanical ventilation. She remains hypotensive requiring norepinephrine. She is on amiodarone orally. She remains in nature fibrillation with overall heart rate around 120 bpm. I'm going to add a small dose of beta jorge alberto with metoprolol tartrate 12.5 mg by mouth twice a day to the current medical regimen. Continue oral anticoagulation. She is in process of having an echocardiogram later on today. The examination is remarkable for irregular rhythm with a systolic murmur at the right and left upper sternal border and bilateral upper and lower extremities edema October [id number] The patient was seen and evaluated this morning. She remains in atrial fibrillation with overall uncontrolled heart rate in spite of increasing the dose of metoprolol. She is also on amiodarone. I'm going to add digoxin to the current medical regimen. She does have edema in the lower extremities and she was started on Lasix IV. Her kidney function is slightly abnormal. The examination is remarkable for irregular heart rhythm with diminished breathing sounds bilaterally and bilateral lower extremities edema Assessment Heart failure with preserved ejection fraction Pneumonia/sepsis Acute hypoxic respiratory failure secondary to the above Acute on chronic renal failure Atrial fibrillation with uncontrolled heart rate Multiple comorbid conditions Plan Add digoxin to the current medical regimen Continue oral anticoagulation Follow-up on the echocardiogram Follow-up with the patient Objective - Vital Signs Vital signs: Vital Signs Temp 98.7 F 10/15/23 00:00 Pulse 125 H 10/15/23 07:00 Resp 24 10/15/23 07:00 BP 99/55 10/15/23 07:00 Pulse Ox 96 10/15/23 07:00 FiO2 40 10/15/23 07:00 Intake & Output 10/14/23 10/15/23 10/15/23 18:59 06:59 18:59 Intake Total 2119.276 2050.566 163 Output Total 670 1050 50 Balance 4386.224 4099.566 113 Weight 142.9 kg 145.3 kg Intake: IV 1378 1166 106 Pressure bags 78 66 6 Sodium Chloride 0.9% 1, 1300 1100 100 000 ml @ 100 mls/hr IV . Q10H ANNA Rx#:[id number] Intake, IV Titration 461.276 309.566 Amount Norepinephrine 8 mg In 205.234 38.820 Sodium Chloride 0.9% 250 ml @ 0.03 MCG/KG/MIN 7.86 mls/hr IV .Q24H ANNA Rx#: [id number] propofoL 1,000 mg In 256.042 270.746 Empty Bag 1 bag @ 15 MCG/ KG/MIN 12.186 mls/hr IV . Q8H13M ANNA Rx#:[id number] Tube Feeding 220 485 57 Other 60 90 Output: Urine 670 1050 50 Other: Voiding Method Indwelling Catheter Indwelling Catheter ABP, PAP, CO, CI - Last Documented Arterial Blood Pressure 105/53 - Labs CBC & Chem 7: 10/15/23 04:13 10/15/23 04:13 Labs: Abnormal Lab Results - Last 24 Hours (Table) 10/14/23 10/14/23 10/14/23 Range/Units 10:45 13:09 18:27 WBC (3.8-10.6) k/uL Neutrophils # (1.3-7.7) k/uL Lymphocytes # (1.0-4.8) k/uL ABG pCO2 (35-45) mmHg ABG HCO3 (21-25) mmol/L ABG Total CO2 (19-24) mmol/L BUN (7-17) mg/dL Creatinine (0.52-1.04) mg/dL Glucose (74-99) mg/dL POC Glucose (mg/dL) 159 H 165 H (70-110) mg/dL Magnesium (1.6-2.3) mg/dL Procalcitonin 0.66 H (0.02-0.09) ng/mL 10/14/23 10/15/23 10/15/23 Range/Units 23:52 04:13 04:13 WBC 14.7 H (3.8-10.6) k/uL Neutrophils # 13.6 H (1.3-7.7) k/uL Lymphocytes # 0.5 L (1.0-4.8) k/uL ABG pCO2 (35-45) mmHg ABG HCO3 (21-25) mmol/L ABG Total CO2 (19-24) mmol/L BUN 62 H (7-17) mg/dL Creatinine 1.58 H (0.52-1.04) mg/dL Glucose 173 H (74-99) mg/dL POC Glucose (mg/dL) 157 H (70-110) mg/dL Magnesium 2.7 H (1.6-2.3) mg/dL Procalcitonin (0.02-0.09) ng/mL 10/15/23 10/15/23 Range/Units 05:52 06:14 WBC (3.8-10.6) k/uL Neutrophils # (1.3-7.7) k/uL Lymphocytes # (1.0-4.8) k/uL ABG pCO2 46 H (35-45) mmHg ABG HCO3 30 H (21-25) mmol/L ABG Total CO2 32 H (19-24) mmol/L BUN (7-17) mg/dL Creatinine (0.52-1.04) mg/dL Glucose (74-99) mg/dL POC Glucose (mg/dL) 187 H (70-110) mg/dL Magnesium (1.6-2.3) mg/dL Procalcitonin (0.02-0.09) ng/mL Microbiology - Last 24 Hours (Table) 10/12/23 16:35 Gram Stain - Preliminary Sputum Sputum Culture - Preliminary
[2023-10-15] MEDS: methylPREDNISolone SOD SUCCI 40 MG/ML 1 ML VIAL IV SCH ×3 (07:57→23:20)
[2023-10-15] MEDS: METOPROLOL TARTRATE 25 MG TAB PO SCH ×3 (07:58→21:11)
[2023-10-15] MEDS: SODIUM CHLORIDE 0.9% 1,000 ML IV SCH ×2 (07:58→19:20)
[2023-10-15] MEDS: AMIODARONE 200 MG TAB PO SCH (07:58)
[2023-10-15] MEDS ORDERED: POTASSIUM BICARBONATE/CIT AC 20 MEQ TABLET.EFF NG-TUBE SCH ×2 (08:00→10:00)
[2023-10-15] MEDS: DIGOXIN 250 MCG/ML 2 ML AMP IVP SCH (08:06)
[2023-10-15] MEDS: CEFEPIME 1 GM in SODIUM CHLORIDE 0.9% 50 ML IVPB SCH ×2 (08:08→20:03)
[2023-10-15] MEDS: FUROSEMIDE 10 MG/ML 4 ML VIAL IV SCH ×2 (08:08→20:03)
[2023-10-15] MEDS: CHLORHEXIDINE GLUCONATE 15 ML CUP MUCOUS MEM SCH ×2 (08:08→20:03)
[2023-10-15] MEDS: PANTOPRAZOLE 40 MG/10 ML VIAL IVP SCH (08:08)
--- NOTE | 2023-10-15 08:09 | XR ---
EXAMINATION TYPE: XR chest 1V portable DATE OF EXAM: 10/15/2023 5:53 AM CLINICAL INDICATION:Female, 73 years old with history of Tube placement; [facility] COMPARISON: Chest radiograph from 10/12/2023 TECHNIQUE: XR chest 1V portable Frontal view of the chest. FINDINGS: Lungs/Pleura: Bibasilar atelectasis. No evidence for pneumothorax, pleural effusion or focal consolid ation. Pulmonary vascularity: Unremarkable. Heart/mediastinum: Cardiomediastinal silhouette is unremarkable. Musculoskeletal: No acute osseous pathology. Other findings: None Lines/Tubes: Endotracheal tube with distal tip 4.8 cm above the blaed. Nasogastric tube with its distal tip and side-port projecting under the diaphragm. Left internal jugular central venous catheter with distal tip at the cavoatrial junction. IMPRESSION: 1. Stable exam, 2. Support line and tubes in appropriate position.
[2023-10-15] MEDS: POTASSIUM CHLORIDE ER 20 MEQ TAB.ER PO SCH (09:14)
[2023-10-15] MEDS: guaiFENesin 600 MG TABLET.ER PO SCH ×2 (10:02→20:04)
[2023-10-15] MEDS: APIXABAN 5 MG TAB PO SCH ×2 (10:02→20:03)
[2023-10-15] MEDS: MAGNESIUM OXIDE 400 MG TAB PO SCH (10:05)
[2023-10-15 12:06] LABS: Glucose,Whole Blood 184 mg/dL (70-110)
[2023-10-15 14:15] LABS: ABG Base Excess 6.2 mmol/L; ABG HCO3 31 mmol/L (21-25); ABG Oxygen Saturation 98.1 % (94-97); ABG PCO2 46 mmHg (35-45); ABG PH 7.44 (7.35-7.45); ABG PO2 95 mmHg (83-108); Allen Test Performed? Yes
[2023-10-15] MEDS ORDERED: Magnesium Replacement Protocol 1 EACH MISC MISCELLANE PRN (14:53)
--- NOTE | 2023-10-15 14:55 | P.PN ---
Subjective Progress Note Date: 10/15/23 H&P Date: 09/27/23 Chief Complaint: Palpitations, dyspnea This is a 73-year-old female with past medical history significant for atrial fibrillation, PE, status post EKOS 02/2022, hypertension, hypothyroidism admitted with atrial fibrillation with RVR and multiple other medical issues.Evaluated and treated by cardiology. Presented to the hospital with complaints of heart palpitations, hypertension , shortness of breath 1 week.Positive orthopnea , reports sleeping sitting up in a recliner as well as living downstairs in her home to avoid climbing stairs. Cardizem drip initiated, rate improving. Cardiology consult in place. Troponins negative 3 , proBNP pending .EKG rate atrial fibrillation with RVR heart rate 132 . Echo reported normal LV f unction, mild pulmonary hypertension, moderate mitral and moderate tricuspid regurgitation .Chest x-ray no acute pulmonary process. UA reports positive nitrates, many bacteria, small leukocytes, urine culture pending. 09/30/2023 recently placed on 2 L nasal cannula, then increased to 4 L, ebony almonte O2 sats in the low 90s .complains of mild increased shortness of breath, which she reports started actually during the night. She has been on Lasix IV push every 12 hours, 24-hour I&O reflecting a negative fluid balance. Renal function mildly worsened, BUN 37, creatinine 1.26. Sodium 125 .Maintained on Rocephin for acute UTI. Afebrile, WBC 13.7. Blood sugars controlled. 10/01/23 yesterday developed worsening pulmonary edema, transfer to ICU. Chest x-ray at that time reported worsening of large perihilar consolidation noted greater on the right, pulmonary edema versus diffuse pneumonia. Received additional Lasix IV push, frequency increased yesterday diuresed well with 24-hour I&O reflecting a negative fluid balance. Maintained on BiPAP throughout the night, placed on 13 L nasal cannula to facilitate patient's diet intake this morning. Chest x-ray repeated this morning reporting improving bilateral areas of consolidation. Telemetry sinus rhythm, continues on Cardizem drip, tachycardic with heart rates in the 130s to 140s. Denies chest pain, palpitations. Afebrile, normal WBC. BUN 37, creatinine 1.30. Blood sugars controlled. 10/07/23 used BiPAP overnight, currently maintaining O2 sats in the 90s on 6 L nasal cannula. Chest x-ray reported bilateral pleural effusions, chest ultrasound reported right pleural effusion 6.8 cm, left pleural effusion 7.5 cm with both marked for possible thoracentesis. Diuresing on Lasix IV push with 24-hour I&O reflecting a negative fluid balance, but continues to have significant lower extremity edema. Telemetry atrial fibrillation with heart rates up to 120s. Reports palpitations, no chest pain. Evaluated by [facility] rdiology, discussing RICO with cardioversion. 10/08/23 Eliquis on hold. status post right thoracentesis with 1200 MLS turbid pleural drainage aspirated. Tolerated procedure well. Postprocedure x-ray reported no pneumothorax, bilateral lower lobe infiltrate and small left effusion. Using BiPAP at night. Currently seem on Lasix IV push with 24-hour I&O reflecting a negative fluid balance. Telemetry atrial fibrillation with heart rates ranging from 90 to 110s. Maintaining O2 in the high 90s on 4-5 L nasal cannula. Bicarb 34, BUN 41, creatinine 1.03. 10/09/2023 chest x-ray reporting bilateral lower lobe infiltrate and small left effusion/no sizable pleural effusion on the right/no pneumothorax. Status post left thoracentesis this morning with 550 MLS turbid pleural drainage aspirated. Tolerated procedure well. Postprocedure chest x-ray reported no pneumothorax. Maintained on oral antiarrhythmics ,telemetry reporting atrial fibrillation. Cardioversion pending. Afebrile, normal WBC. Continues diuresing well on Lasix IV push with 24-hour I&O reflecting a negative fluid balance. sodium 136, potassium 3.8, bicarb 37, BUN 38, creatinine 0.97. Maintaining O2 sats in the 90s on 3 L nasal cannula. 10/10/2023 Eliquis resumed yesterday after thoracentesis. Pleural fluid Cy tology pending . Telemetry atrial fibrillation, heart rate better controlled today on oral amiodarone, metoprolol, Cardizem. Cardioversion pending. BiPAP throughout the night. Denies chest pain, palpitations or shortness of breath. Maintaining O2 sats in the 90s on 2 L nasal cannula. Continues diuresing well on Lasix IV push with 24-hour I&O reflecting a negative fluid balance. Afebrile, normal WBC. Potassium 3.6, receiving replacement. BUN 36, creatinine 1.1 10/11/2023 BiPAP for short while during the night. Currently maintaining O2 sat in the 90s on room air. Continues diuresing well on Lasix IV push with 24-hour I&O reflecting a negative fluid balance. BUN 34, creatinine 1.24. Pleural fluid cytology pending. Cardizem discontinued, continues on amiodarone with metoprolol increased, A. fib controlled. Afebrile, normal WBC. Reports she ambulated yesterday, tolerated exertion well, O2 sat on room air after ambulation 95%. 10/14/2023 intubated, FiO2 40%/PEEP recently decreased to 8. Chest x-ray reported low lung volumes with grossly stable lung parenchyma opacities predominantly in lung bases, layering bilateral pleural effusions, Continues on diprovan, levophed and IV fluid hydration with saline 100 MLS an hour. Right pleural fluid cytology negative for malignancy. BNP 9280. BUN 62, creatinine increased to 2.39, lasix resumed. Continues on cefepime. Afebrile, WBC 24.6. Telemetry atrial fibrillation with RVR, antiarrhythmics adjusted per cardiology. 10/15/23 remains vent dependent with FiO2 40%/+8 of PEEP. Continues on levothyroid and diprovan. Maintained on empiric cefepime. Chest x-ray reporting stable; per pulmonary, pneumonia less likely. WBC decreased to 14.7. BUN 62, creatinine improving, decreased to 1.58. Reports patient follows commands. Echo reported suboptimal , reporting mild LV dysfunction. Telemetry atrial fibrillation with RVR, on oral amiodarone, beta jorge alberto increased with digoxin added to med regimen. Lasix resumed with improving urine output. Objective - Vital Signs Vital signs: Vital Signs Temp 97.7 F 10/15/23 12:00 Pulse 131 H 10/15/23 13:30 Resp 26 H 10/15/23 13:30 BP 99/55 10/15/23 07:00 Pulse Ox 98 10/15/23 13:30 FiO2 40 10/15/23 13:42 Intake & Output 10/14/23 10/15/23 10/15/23 18:59 06:59 18:59 Intake Total 2119.276 2050.566 1041.244 Output Total 670 1050 1350 Balance 9884.644 9798.566 -308.756 Weight 142.9 kg 145.3 kg 145.3 kg Intake: IV 1378 1166 448 Pressure bags 78 66 48 Sodium Chloride 0.9% 1, 1300 1100 400 000 ml @ 100 mls/hr IV . Q10H ANNA Rx#:[id number] Intake, IV Titration 461.276 309.566 134.244 Amount Norepinephrine 8 mg In 205.234 38.820 11.572 Sodium Chloride 0.9% 250 ml @ 0.03 MCG/KG/MIN 7.86 mls/hr IV .Q24H ANNA Rx#: [id number] propofoL 1,000 mg In 256.042 270.746 122.672 Empty Bag 1 bag @ 15 MCG/ KG/MIN 12.186 mls/hr IV . Q8H13M ANNA Rx#:[id number] Tube Feeding 220 485 399 Other 60 90 60 Output: Urine 670 1050 1350 Other: Voiding Method Indwelling Catheter Indwelling Catheter Indwelling Catheter ABP, PAP, CO, CI - Last Documented Arterial Blood Pressure 131/66 - Exam PHYSICAL EXAM: VITAL SIGNS: [As above] GENERAL: Intubated, on mechanical ventilator and sedated,NAD HEENT: Normocephalic, Conjunctivae normal. NECK: Supple, No JVD. CARDIOVASCULAR: S1, S2. irregular. Tachycardic. Systolic murmur. RESPIRATION: Unlabored, equal air entry, fine bibasilar crackles ABDOMEN: Soft, nondistended, nontender. +BS LEGS: Mild bilateral lower extremity edema. NERVOUS SYSTEM: Unable to assess, patient is intubated and sedated Skin: Warm and dry, no rash Microbiology 10/12/23 16:35 Sputum Gram Stain - Final 10/12/23 16:35 Sputum Sputum Culture - Final 10/08/23 08:00 Pleural Fluid Gram Stain - Final 10/08/23 08:00 Pleural Fluid Body Fluid Culture - Final 09/26/23 11:43 Urine,Clean Catch Urine Culture - Final Escherichia coli - Labs CBC & Chem 7: 10/15/23 04:13 10/15/23 13:05 Labs: Abnormal Lab Results - Last 24 Hours (Table) 10/14/23 10/14/23 10/14/23 Range/Units 10:45 18:27 23:52 WBC (3.8-10.6) k/uL Neutrophils # (1.3-7.7) k/uL Lymphocytes # (1.0-4.8) k/uL ABG pCO2 (35-45) mmHg ABG HCO3 (21-25) mmol/L ABG Total CO2 (19-24) mmol/L ABG O2 Saturation (94-97) % BUN (7-17) mg/dL Creatinine (0.52-1.04) mg/dL Glucose (74-99) mg/dL POC Glucose (mg/dL) 165 H 157 H (70-110) mg/dL Magnesium (1.6-2.3) mg/dL Procalcitonin 0.66 H (0.02-0.09) ng/mL 10/15/23 10/15/23 10/15/23 Range/Units 04:13 04:13 05:52 WBC 14.7 H (3.8-10.6) k/uL Neutrophils # 13.6 H (1.3-7.7) k/uL Lymphocytes # 0.5 L (1.0-4.8) k/uL ABG pCO2 46 H (35-45) mmHg ABG HCO3 30 H (21-25) mmol/L ABG Total CO2 32 H (19-24) mmol/L ABG O2 Saturation (94-97) % BUN 62 H (7-17) mg/dL Creatinine 1.58 H (0.52-1.04) mg/dL Glucose 173 H (74-99) mg/dL POC Glucose (mg/dL) (70-110) mg/dL Magnesium 2.7 H (1.6-2.3) mg/dL Procalcitonin (0.02-0.09) ng/mL 10/15/23 10/15/23 10/15/23 Range/Units 06:14 12:05 14:07 WBC (3.8-10.6) k/uL Neutrophils # (1.3-7.7) k/uL Lymphocytes # (1.0-4.8) k/uL ABG pCO2 46 H (35-45) mmHg ABG HCO3 31 H (21-25) mmol/L ABG Total CO2 (19-24) mmol/L ABG O2 Saturation 98.1 H (94-97) % BUN (7-17) mg/dL Creatinine (0.52-1.04) mg/dL Glucose (74-99) mg/dL POC Glucose (mg/dL) 187 H 184 H (70-110) mg/dL Magnesium (1.6-2.3) mg/dL Procalcitonin (0.02-0.09) ng/mL Microbiology - Last 24 Hours (Table) 10/12/23 16:35 Gram Stain - Final Sputum Sputum Culture - Final Assessment and Plan Assessment: Chronic Atrial fibrillation with rapid ventricular rate Secondary Hypotension, pressor dependent Acute on chronic CHF exacerbation, diastolic dysfunction, ef 55-60%. Bilateral pleural effusions status post bilateral thoracentesis,transudative. Cytology negative for malignancy. Possible underlying pneumonia, felt to be less likely as per pulmonary. Acute hypoxic respiratory failure , on mechanical ventilator-dependent ,secondary to the above Acute UTI, E. coli Acute on chronic renal failure, stage III Pulmonary embolism bilaterally status post EKOS, 03/14/2022 Pulmonary hypertension Moderate mitral and tricuspid regurgitation Hypothyroidism Hypertension, history of Hyperlipidemia Osteoarthritis with history right knee placement in July 2022. Morbid obesity, BMI 46 Plan: Continue on current medication regime ,monitoring and symptomatic treatment. ICU management as per desk interviewer. Antiarrhythmics as per cardiology. Electrolyte replacement as per replacement ICU protocols.Close monitoring of electrolytes and renal function with repeat labs ordered for a.m. Prognosis guarded given multiple complex medical issues. The impression and plan of care has been dictated as directed. : I performed a history and examination of this patient, discussed the same with the dictator. I agree with the dictator's note ,documented as a scribe. Any additional findings or plans will be noted.
--- NOTE | 2023-10-15 15:26 | P.PN ---
Subjective Progress Note Date: 10/15/23 Principal diagnosis: Acute hypoxic respiratory failure secondary to acute congestive heart failure with preserved ejection fraction and possible underlying pneumonia. 73-year-old female who presented to the emergency department on September 26, complaining of arrhythmias, and palpitations. The patient does have a history of hypertension, atrial fibrillation, hyperlipidemia, pulmonary embolism, and hypothyroidism. The patient apparently was having some lower extremity edema, shortness of breath, and orthopnea. She also had mild exertional dyspnea. The patient denied any chest pain or chest discomfort. She was seen by the ER physician, and admitted with a diagnosis of atrial fibrillation, CHF, and urinary tract infection. Today, a rapid response was called on this patient, and, R ICU charge nurse, who evaluated the patient, and thought the patient should come down to the intensive care unit, for further monitoring and management. She was given some IV Lasix, and placed on BiPAP, with settings of 16/6, and 100%. She was seen in the intensive care unit, room 255. She was sitting up in bed, with mild respiratory distress, on the BiPAP device. White count was 13.7, hemoglobin 14.5, hematocrit 44.4, and a normal platelet count. Sodium 135, potassium 3.9, chlorides 96, CO2 27, anion gap 12, BUN 37, and creatinine 1.26. N-terminal proBNP, on September 29, was 7020. The patient had chest x-rays on the and on the . Today's chest x-ray shows worsening pulmonary edema. On 10/12/2023, the patient is found to be short of breath. After doing signifi cant progress and being on room air oxygen, earlier last night, at around 10 PM, the patient became progressively more hypoxic. Initially she required 2 L and later on 5 L and subsequently she was placed on a BiPAP and she is currently on a BiPAP at a pressure of 16/6 cm water with an FiO2 of 45%. Her breathing is labored at this point in time. Note that the patient was being treated for the Cyst heart failure and fluid overload. She was being treated with Lasix. The patient was producing excellent urine output and she also had bilateral thoracentesis was further optimized her volume status and fluid balance. The patient denies having any chest pain. On examination, she has diminished breath sounds bilaterally along with some bibasilar crackles and breath sounds are slightly diminished on the right base compared to the left. Chest x-ray shows worsening in the interstitial infiltrates bilaterally and some limited patchy bibasilar opacities. No reported aspiration. The white cell count remains low at 7.3. Hemoglobin is at 13.1. BUN is 34 with a creatinine 1.24 and a sodium level is at 135. She is afebrile at this point in time. The patient has chronic atrial fibrillation and her current cardiac rhythm is sinus. On 10/13/2023, the patient is being seen for a follow-up. At this point in time, the patient is intubated on a mechanical ventilator. She is sedated on pr opofol. She was intubated yesterday because of an acute hypoxic respiratory failure and pulmonary edema. This morning, she was discussed with a rate of 24, tidal volume of 400, FiO2 is at 50% with a PEEP of 12. Chest x-ray shows improvement in the pulmonary edema compared to yesterday and a blood gas shows a pH of 7.52 with a pCO2 of 39 and pO2 of 120 and this was on FiO2 of 50%. The patient was taken off diuretics. Noted the patient was diuresed aggressively which is essentially pertinent acute kidney injury and the creatinine this morning is at 2.5 with a BUN of 54. Sodium levels of 136. Potassium levels at 4.7. The risk of 18.4 with a hemoglobin of 14.2. She was started on empiric antibiotic coverage with IV cefepime. Her cardiac rhythm is back in sinus and the patient is also undergoing related with Eliquis 5 mg by mouth twice a day. She remains on bronchodilators. The fluid balance over the past 24 hours as and possible 1.4 L. No fever. No chills. She is currently on no pressors. She'll be started on enteral feeding for nutritional support. Patient was reevaluated today on 10/14/2023, patient remains in the ICU, intubated and mechanically ventilated, she is on assist control rate of 24 tidal volume 400 FiO2 40% and PEEP of 10 however her ABG showed a pO2 of 118 pCO2 45 pH of 7.43, hence I cut down the PEEP from 10-8. Patient was initially admitted on 09/26 intubated on 10/12 and remains intubated. She was admitted mostly with congestive heart failure, atrial fibrillation and RVR, and she has a preserved ejection fraction. Chest x-ray continues to show evidence of congestive heart failure, underlying pneumonia is not entirely ruled out but felt to be less likely her pleural effusion was clearly transudative in nature consistent with CHF cytology on the fluid from the pleural effusion is also negative for underlying malignancy it patient continues to have leukocytosis with WBC of 24.6 hemoglobin 15.7, basic metabolic profile is normal however BUN is 62 creatinine 2.39, slightly worse compared to baseline of 1.10 few days ago, and diuretics we re placed temporarily on hold BNP level is over 9000. Patient remains on norepinephrine at 0.0; 0/m on propofol at 30 mcg/kg/m also on 0.9 normal saline at 100 mL per hour. Patient remains in atrial fibrillation with RVR, she is on Lopressor at 50 twice a day she is also on amiodarone orally cardiology cut down the Lopressor down to 12.5 twice a day because of low blood pressure. Patient is intermittently receiving Lasix her urine output seems to be about 50 mL per hour. Antibiotics [place] patient remains on cefepime. Patient was reevaluated today on 10/15/23, remains in the ICU, intubated and mechanically ventilated. Patient remains on assist control rate of 24, FiO2 40% tidal volume 400 and PEEP of 8 ABG showed a pO2 of 84 pCO2 46 pH of 7.43, patient remains on propofol at 25 mcg/kg/m. Patient is also on cefepime for her E. coli infection in the urine she is also on Lasix 40 mg IV push twice a day with definite improvement in her renal status today. Continues to have relatively high CVP of 13. Creatinine is down to 1.58 today, and her IV fluid was cut down to KVO today. Chest x-ray is showing slight improvement in her fluid status. W see count is 14.7 definitely improved hemoglobin 12.7 basic metabolic profile is normal renal profile is improving with BUN 62 creatinine down to 1.58 from 2.39 yesterday Objective - Vital Signs Vital signs: Vital Signs Temp 97.7 F 10/15/23 12:00 Pulse 120 H 10/15/23 14:30 Resp 31 H 10/15/23 14:30 BP 99/55 10/15/23 07:00 Pulse Ox 98 10/15/23 14:30 FiO2 40 10/15/23 13:42 Intake & Output 10/14/23 10/15/23 10/15/23 18:59 06:59 18:59 Intake Total 2119.276 2050.566 1041.921 Output Total 670 1050 1350 Balance 7686.623 0243.566 -308.079 Weight 142.9 kg 145.3 kg 145.3 kg Intake: IV 1378 1166 448 Pressure bags 78 66 48 Sodium Chloride 0.9% 1, 1300 1100 400 000 ml @ 100 mls/hr IV . Q10H ANNA Rx#:[id number] Intake, IV Titration 461.276 309.566 134.921 Amount Norepinephrine 8 mg In 205.234 38.820 11.572 Sodium Chloride 0.9% 250 ml @ 0.03 MCG/KG/MIN 7.86 mls/hr IV .Q24H ANNA Rx#: [id number] propofoL 1,000 mg In 256.042 270.746 123.349 Empty Bag 1 bag @ 15 MCG/ KG/MIN 12.186 mls/hr IV . Q8H13M ANNA Rx#:[id number] Tube Feeding 220 485 399 Other 60 90 60 Output: Urine 670 1050 1350 Other: Voiding Method Indwelling Catheter Indwelling Catheter Indwelling Catheter ABP, PAP, CO, CI - Last Documented Arterial Blood Pressure 140/69 - Exam Physical Exam: Revealed 73-year-old female obese in no distress intubated and mechanically ventilated Head: Atraumatic normocephalic. HEENT:[Neck is supple.] [No neck masses.] [No thyromegaly.] [No JVD.] Endotracheal tube and orogastric tube are intact Chest: [Symmetrical chest expansion crackles at the bases bilaterally Cardiac Exam: Irregular irregular rhythm. [Normal S1 and S2, no S3 gallop, 2/6 systolic murmur thought the precordium. Abdomen: [Soft, nontender, no megaly, no rebound, no guarding, normal bowel sounds.] Extremities: [No clubbing, 1+ bipedal edema, no cyanosis.] Good distal pulses bilaterally. Neurological Exam: [Could not assess patient is sedated on propofol. Psychiatric: Could not assess, patient is sedated Skin: No rashes - Labs CBC & Chem 7: 10/15/23 04:13 10/15/23 13:05 Labs: Abnormal Lab Results - Last 24 Hours (Table) 10/14/23 10/14/23 10/14/23 Range/Units 10:45 18:27 23:52 WBC (3.8-10.6) k/uL Neutrophils # (1.3-7.7) k/uL Lymphocytes # (1.0-4.8) k/uL ABG pCO2 (35-45) mmHg ABG HCO3 (21-25) mmol/L ABG Total CO2 (19-24) mmol/L ABG O2 Saturation (94-97) % BUN (7-17) mg/dL Creatinine (0.52-1.04) mg/dL Glucose (74-99) mg/dL POC Glucose (mg/dL) 165 H 157 H (70-110) mg/dL Magnesium (1.6-2.3) mg/dL Procalcitonin 0.66 H (0.02-0.09) ng/mL 10/15/23 10/15/23 10/15/23 Range/Units 04:13 04:13 05:52 WBC 14.7 H (3.8-10.6) k/uL Neutrophils # 13.6 H (1.3-7.7) k/uL Lymphocytes # 0.5 L (1.0-4.8) k/uL ABG pCO2 46 H (35-45) mmHg ABG HCO3 30 H (21-25) mmol/L ABG Total CO2 32 H (19-24) mmol/L ABG O2 Saturation (94-97) % BUN 62 H (7-17) mg/dL Creatinine 1.58 H (0.52-1.04) mg/dL Glucose 173 H (74-99) mg/dL POC Glucose (mg/dL) (70-110) mg/dL Magnesium 2.7 H (1.6-2.3) mg/dL Procalcitonin (0.02-0.09) ng/mL 10/15/23 10/15/23 10/15/23 Range/Units 06:14 12:05 14:07 WBC (3.8-10.6) k/uL Neutrophils # (1.3-7.7) k/uL Lymphocytes # (1.0-4.8) k/uL ABG pCO2 46 H (35-45) mmHg ABG HCO3 31 H (21-25) mmol/L ABG Total CO2 (19-24) mmol/L ABG O2 Saturation 98.1 H (94-97) % BUN (7-17) mg/dL Creatinine (0.52-1.04) mg/dL Glucose (74-99) mg/dL POC Glucose (mg/dL) 187 H 184 H (70-110) mg/dL Magnesium (1.6-2.3) mg/dL Procalcitonin (0.02-0.09) ng/mL Microbiology - Last 24 Hours (Table) 10/12/23 16:35 Gram Stain - Final Sputum Sputum Culture - Final Assessment and Plan Assessment: Impression: Acute hypoxic respiratory failure secondary to acute systolic congestive heart failure, ejection fraction was noted to be 45% on her echocardiogram Bilateral pleural effusions/transudative in nature. Based on protein and LDH levels in the pleural effusion. Patient is status post bilateral thoracentesis Chronic atrial fibrillation with RVR, being addressed by cardiology still not fairly well controlled E. coli urinary tract infection, remains on antibiotics Benign essential hypertension Dyslipidemia History of pulmonary embolism Hypothyroidism Degenerative joint disease Possible underlying pneumonia but felt to be less likely based on the clinical history Recommendation: Continue diuretics Continue antibiotics Continue ventilatory support and daily assessment of mental status off sedation, patient may be given a trial of weaning today off sedation. And based on how she tolerates the weaning will decide whether the patient could be extubated. Continue nutritional support/enteral feeding Continue anticoagulation therapy Continue amiodarone and beta blockers Continue to monitor closely renal profile Continue bronchodilators and steroids Overall prognostic picture is poor Critical care time is over 30 minutes. We will continue to follow Time with Patient: Greater than 30
[2023-10-15 18:09] LABS: Glucose,Whole Blood 155 mg/dL (70-110)
[2023-10-15] MEDS: ATORVASTATIN 80 MG TAB PO SCH (20:03)
[2023-10-16 00:09] LABS: Glucose,Whole Blood 162 mg/dL (70-110)
[2023-10-16] MEDS: INSULIN ASPART (NovoLOG) 100 UNIT/ML VIAL SQ SCH ×4 (00:10→16:40)
[2023-10-16] MEDS: IPRATROPIUM-ALBUTEROL 3 ML NEB INHALATION SCH ×7 (00:44→23:27)
[2023-10-16 04:36] LABS: Basophils % (A) 0 %; Eosinophils # (A) 0.1 k/uL (0-0.7); Eosinophils % (A) 0 %; HCT 38.9 % (34.0-46.0); HGB 12.3 gm/dL (11.4-16.0); Hypochromasia Slight; Lymphocytes # (A) 0.4 k/uL (1.0-4.8); Lymphocytes % (A) 4 %; MCH 31.7 pg (25.0-35.0); MCHC 31.8 g/dL (31.0-37.0); MCV 99.7 fL (80.0-100.0); Macrocytosis Slight; Mean Platelet Volume 7.9; Monocytes # (A) 0.4 k/uL (0-1.0); Monocytes % (A) 3 %; Neutrophils # (A) 10.4 k/uL (1.3-7.7); Neutrophils % (A) 92 %; Platelet Count 255 k/uL (150-450); RDW 14.3 % (11.5-15.5); WBC 11.3 k/uL (3.8-10.6)
[2023-10-16 04:47] LABS: African American GFR (CKD) 45 (>60 ml/min/1.73 sqM); Anion Gap 7 mmol/L; Blood Urea Nitrogen 66 mg/dL (7-17); Calcium 8.3 mg/dL (8.4-10.2); Carbon Dioxide 28 mmol/L (22-30); Chloride 105 mmol/L (98-107); Glucose 182 mg/dL (74-99); Magnesium 2.6 mg/dL (1.6-2.3); Non-African American GFR(CKD) 39 (>60 ml/min/1.73 sqM); Potassium 3.6 mmol/L (3.5-5.1); Sodium 140 mmol/L (137-145)
[2023-10-16 05:46] LABS: ABG Base Excess 8.1 mmol/L; ABG HCO3 32 mmol/L (21-25); ABG Oxygen Saturation 96.1 % (94-97); ABG PCO2 48 mmHg (35-45); ABG PH 7.44 (7.35-7.45); ABG PO2 85 mmHg (83-108); ABG TCO2 34 mmol/L (19-24); Allen Test Performed? Yes
[2023-10-16] MEDS ORDERED: POTASSIUM BICARBONATE/CIT AC 20 MEQ TABLET.EFF NG-TUBE SCH ×2 (06:00→09:00)
[2023-10-16 06:08] LABS: Glucose,Whole Blood 187 mg/dL (70-110)
[2023-10-16] MEDS: LEVOTHYROXINE 88 MCG TAB PO SCH (06:12)
--- NOTE | 2023-10-16 07:45 | XR ---
EXAMINATION TYPE: XR chest 1V portable DATE OF EXAM: 10/16/2023 Comparison: 10/15/2023 Clinical History: 73-year-old female assess lungs Findings: ET tube tip just below the medial clavicular heads. NG tube courses below the diaphragm. Left subclav juvenal CVC tip at the lower SVC. Heart borderline in size. Diffuse hazy opacities throughout the lungs e specially mid and lower lungs along with dense retrocardiac opacity and small pleural effusions. Impression: Similar partial layering small pleural effusions with adjacent atelectasis and/or consolidation. Cons olidation/atelectasis at the left mid to lower lung also persists.
[2023-10-16] MEDS: DILTIAZEM 125 MG in SODIUM CHLORIDE 0.9% 100 ML IV SCH (07:58)
[2023-10-16] MEDS: FUROSEMIDE 10 MG/ML 4 ML VIAL IV SCH ×3 (08:00→20:00)
[2023-10-16] MEDS: guaiFENesin 600 MG TABLET.ER PO SCH ×2 (08:01→20:00)
[2023-10-16] MEDS: MAGNESIUM OXIDE 400 MG TAB PO SCH (08:02)
[2023-10-16] MEDS: APIXABAN 5 MG TAB PO SCH ×2 (08:48→20:00)
[2023-10-16] MEDS: METOPROLOL TARTRATE 25 MG TAB PO SCH (08:48)
[2023-10-16] MEDS: AMIODARONE 200 MG TAB PO SCH (08:48)
[2023-10-16] MEDS: CHLORHEXIDINE GLUCONATE 15 ML CUP MUCOUS MEM SCH ×2 (08:48→20:00)
[2023-10-16] MEDS: DIGOXIN 250 MCG/ML 2 ML AMP IVP SCH (08:49)
[2023-10-16] MEDS: methylPREDNISolone SOD SUCCI 40 MG/ML 1 ML VIAL IV SCH ×2 (08:50→16:23)
[2023-10-16] MEDS: CEFEPIME 1 GM in SODIUM CHLORIDE 0.9% 50 ML IVPB SCH ×2 (08:50→20:00)
[2023-10-16] MEDS: PANTOPRAZOLE 40 MG/10 ML VIAL IVP SCH (08:50)
--- NOTE | 2023-10-16 11:48 | P.PN ---
Subjective Progress Note Date: 10/16/23 Principal diagnosis: Persistent atrial fibrillation The patient is a 73-year-old female patient with history of heart failure as well as atrial fibrillation as well as hypertension and dyslipidemia and renal failure was admitted to the hospital with acute hypoxic respiratory failure. Initially she was started on diuretics for heart failure subsequently she developed renal failure and the diuretics was a systolic. Currently she is intubated and she is on mechanical ventilation for possible underlying pneumonia/sepsis and currently she is on norepinephrine 10/14/2023 The patient was seen and evaluated this morning. The patient remains intubated on mechanical ventilation. She remains hypotensive requiring norepinephrine. She is on amiodarone orally. She remains in nature fibrillation with overall heart rate around 120 bpm. I'm going to add a small dose of beta jorge alberto with metoprolol tartrate 12.5 mg by mouth twice a day to the current medical regimen. Continue oral anticoagulation. She is in process of having an echocardiogram later on today. The examination is remarkable for irregular rhythm with a systolic murmur at the right and left upper sternal border and bilateral upper and lower extremities edema October [id number] The patient was seen and evaluated this morning. She remains in atrial fibrillation with overall uncontrolled heart rate in spite of increasing the dose of metoprolol. She is also on amiodarone. I'm going to add digoxin to the current medical regimen. She does have edema in the lower extremities and she was started on Lasix IV. Her kidney function is slightly abnormal. The examination is remarkable for irregular heart rhythm with diminished breathing sounds bilaterally and bilateral lower extremities edema 10/16/2023 The patient was seen and evaluated this morning. She is awake. He potentially can be extubated later on today. Hemodynamically stable. The heart rate has somewhat improved continues to be in the 100 bpm. I'm going to increase the dose of beta jorge alberto with metoprolol to 50 mg by mouth twice a day. Continue digoxin and continue amiodarone and continue oral anticoagulation. She is having edema in the upper and lower extremity is and she is on Lasix IV which we will continue. Assessment Heart failure with preserved ejection fraction Pneumonia/sepsis Acute hypoxic respiratory failure secondary to the above Acute on chronic renal failure Atrial fibrillation with uncontrolled heart rate Multiple comorbid conditions Plan Continue the current medical regimen Increase the dose of metoprolol Continue digoxin and amiodarone Follow-up with the patient Objective - Vital Signs Vital signs: Vital Signs Temp 98.2 F 10/16/23 08:00 Pulse 115 H 10/16/23 11:00 Resp 24 10/16/23 11:00 BP 90/63 10/16/23 07:00 Pulse Ox 97 10/16/23 11:00 FiO2 40 10/16/23 11:04 Intake & Output 10/15/23 10/16/23 10/16/23 18:59 06:59 18:59 Intake Total 2225.806 9128.077 582.333 Output Total 1665 1635 1175 Balance -219.978 -312.923 -592.667 Weight 145.3 kg 144.8 kg Intake: IV 578 312 130 Pressure bags 78 72 30 Sodium Chloride 0.9% 1, 500 240 100 000 ml @ 100 mls/hr IV . Q10H [facility] Rx#:[id number] Intake, IV Titration 207.022 236.077 137.333 Amount Cefepime 1 gm In Sodium 50 Chloride 0.9% 50 ml @ 12. 5 mls/hr IVPB Q12HR [facility] Rx#:[id number] Norepinephrine 8 mg In 11.572 Sodium Chloride 0.9% 250 ml @ 0.03 MCG/KG/MIN 7.86 mls/hr IV .Q24H [facility] Rx#: [id number] propofoL 1,000 mg In 195.450 236.077 87.333 Empty Bag 1 bag @ 15 MCG/ KG/MIN 12.186 mls/hr IV . Q8H13M [facility] Rx#:[id number] Tube Feeding 570 684 285 Other 90 90 30 Output: Urine 1665 1635 1175 Other: Voiding Method Indwelling Catheter Indwelling Catheter Indwelling Catheter ABP, PAP, CO, CI - Last Documented Arterial Blood Pressure 121/59 - Labs CBC & Chem 7: 10/16/23 04:22 10/16/23 04:22 Labs: Abnormal Lab Results - Last 24 Hours (Table) 10/15/23 10/15/23 10/15/23 Range/Units 12:05 14:07 18:07 WBC (3.8-10.6) k/uL Neutrophils # (1.3-7.7) k/uL Lymphocytes # (1.0-4.8) k/uL ABG pCO2 46 H (35-45) mmHg ABG HCO3 31 H (21-25) mmol/L ABG Total CO2 (19-24) mmol/L ABG O2 Saturation 98.1 H (94-97) % BUN (7-17) mg/dL Creatinine (0.52-1.04) mg/dL Glucose (74-99) mg/dL POC Glucose (mg/dL) 184 H 155 H (70-110) mg/dL Calcium (8.4-10.2) mg/dL Magnesium (1.6-2.3) mg/dL 10/16/23 10/16/23 10/16/23 Range/Units 00:07 04:22 04:22 WBC 11.3 H (3.8-10.6) k/uL Neutrophils # 10.4 H (1.3-7.7) k/uL Lymphocytes # 0.4 L (1.0-4.8) k/uL ABG pCO2 (35-45) mmHg ABG HCO3 (21-25) mmol/L ABG Total CO2 (19-24) mmol/L ABG O2 Saturation (94-97) % BUN 66 H (7-17) mg/dL Creatinine 1.34 H (0.52-1.04) mg/dL Glucose 182 H (74-99) mg/dL POC Glucose (mg/dL) 162 H (70-110) mg/dL Calcium 8.3 L (8.4-10.2) mg/dL Magnesium 2.6 H (1.6-2.3) mg/dL 10/16/23 10/16/23 Range/Units 05:37 06:07 WBC (3.8-10.6) k/uL Neutrophils # (1.3-7.7) k/uL Lymphocytes # (1.0-4.8) k/uL ABG pCO2 48 H (35-45) mmHg ABG HCO3 32 H (21-25) mmol/L ABG Total CO2 34 H (19-24) mmol/L ABG O2 Saturation (94-97) % BUN (7-17) mg/dL Creatinine (0.52-1.04) mg/dL Glucose (74-99) mg/dL POC Glucose (mg/dL) 187 H (70-110) mg/dL Calcium (8.4-10.2) mg/dL Magnesium (1.6-2.3) mg/dL Microbiology - Last 24 Hours (Table) 10/12/23 16:35 Gram Stain - Final Sputum Sputum Culture - Final
[2023-10-16 11:53] LABS: Glucose,Whole Blood 184 mg/dL (70-110)
[2023-10-16] MEDS: LORazepam 2 MG/ML INJ IV PRN ×2 (12:02→21:26)
[2023-10-16] MEDS: METOPROLOL TARTRATE 50 MG TAB PO SCH ×2 (12:02→20:00)
[2023-10-16 12:37] LABS: ABG Base Excess 10.2 mmol/L; ABG HCO3 34 mmol/L (21-25); ABG Oxygen Saturation 96.8 % (94-97); ABG PCO2 47 mmHg (35-45); ABG PH 7.46 (7.35-7.45); ABG PO2 89 mmHg (83-108); ABG TCO2 35 mmol/L (19-24)
[2023-10-16 12:39] LABS: Allen Test Performed? no
--- NOTE | 2023-10-16 13:07 | P.PN ---
Subjective Progress Note Date: 10/16/23 Principal diagnosis: Acute hypoxic respiratory failure secondary to acute congestive heart failure with preserved ejection fraction and possible underlying pneumonia. 73-year-old female who presented to the emergency department on September 26, complaining of arrhythmias, and palpitations. The patient does have a history of hypertension, atrial fibrillation, hyperlipidemia, pulmonary embolism, and hypothyroidism. The patient apparently was having some lower extremity edema, shortness of breath, and orthopnea. She also had mild exertional dyspnea. The patient denied any chest pain or chest discomfort. She was seen by the ER physician, and admitted with a diagnosis of atrial fibrillation, CHF, and urinary tract infection. Today, a rapid response was called on this patient, and, R ICU charge nurse, who evaluated the patient, and thought the patient should come down to the intensive care unit, for further monitoring and management. She was given some IV Lasix, and placed on BiPAP, with settings of 16/6, and 100%. She was seen in the intensive care unit, room 255. She was sitting up in bed, with mild respiratory distress, on the BiPAP device. White count was 13.7, hemoglobin 14.5, hematocrit 44.4, and a normal platelet count. Sodium 135, potassium 3.9, chlorides 96, CO2 27, anion gap 12, BUN 37, and creatinine 1.26. N-terminal proBNP, on September 29, was 7020. The patient had chest x-rays on the and on the . Today's chest x-ray shows worsening pulmonary edema. On 10/12/2023, the patient is found to be short of breath. After doing signifi cant progress and being on room air oxygen, earlier last night, at around 10 PM, the patient became progressively more hypoxic. Initially she required 2 L and later on 5 L and subsequently she was placed on a BiPAP and she is currently on a BiPAP at a pressure of 16/6 cm water with an FiO2 of 45%. Her breathing is labored at this point in time. Note that the patient was being treated for the Cyst heart failure and fluid overload. She was being treated with Lasix. The patient was producing excellent urine output and she also had bilateral thoracentesis was further optimized her volume status and fluid balance. The patient denies having any chest pain. On examination, she has diminished breath sounds bilaterally along with some bibasilar crackles and breath sounds are slightly diminished on the right base compared to the left. Chest x-ray shows worsening in the interstitial infiltrates bilaterally and some limited patchy bibasilar opacities. No reported aspiration. The white cell count remains low at 7.3. Hemoglobin is at 13.1. BUN is 34 with a creatinine 1.24 and a sodium level is at 135. She is afebrile at this point in time. The patient has chronic atrial fibrillation and her current cardiac rhythm is sinus. On 10/13/2023, the patient is being seen for a follow-up. At this point in time, the patient is intubated on a mechanical ventilator. She is sedated on pr opofol. She was intubated yesterday because of an acute hypoxic respiratory failure and pulmonary edema. This morning, she was discussed with a rate of 24, tidal volume of 400, FiO2 is at 50% with a PEEP of 12. Chest x-ray shows improvement in the pulmonary edema compared to yesterday and a blood gas shows a pH of 7.52 with a pCO2 of 39 and pO2 of 120 and this was on FiO2 of 50%. The patient was taken off diuretics. Noted the patient was diuresed aggressively which is essentially pertinent acute kidney injury and the creatinine this morning is at 2.5 with a BUN of 54. Sodium levels of 136. Potassium levels at 4.7. The risk of 18.4 with a hemoglobin of 14.2. She was started on empiric antibiotic coverage with IV cefepime. Her cardiac rhythm is back in sinus and the patient is also undergoing related with Eliquis 5 mg by mouth twice a day. She remains on bronchodilators. The fluid balance over the past 24 hours as and possible 1.4 L. No fever. No chills. She is currently on no pressors. She'll be started on enteral feeding for nutritional support. Patient was reevaluated today on 10/14/2023, patient remains in the ICU, intubated and mechanically ventilated, she is on assist control rate of 24 tidal volume 400 FiO2 40% and PEEP of 10 however her ABG showed a pO2 of 118 pCO2 45 pH of 7.43, hence I cut down the PEEP from 10-8. Patient was initially admitted on 09/26 intubated on 10/12 and remains intubated. She was admitted mostly with congestive heart failure, atrial fibrillation and RVR, and she has a preserved ejection fraction. Chest x-ray continues to show evidence of congestive heart failure, underlying pneumonia is not entirely ruled out but felt to be less likely her pleural effusion was clearly transudative in nature consistent with CHF cytology on the fluid from the pleural effusion is also negative for underlying malignancy it patient continues to have leukocytosis with WBC of 24.6 hemoglobin 15.7, basic metabolic profile is normal however BUN is 62 creatinine 2.39, slightly worse compared to baseline of 1.10 few days ago, and diuretics we re placed temporarily on hold BNP level is over 9000. Patient remains on norepinephrine at 0.0; 0/m on propofol at 30 mcg/kg/m also on 0.9 normal saline at 100 mL per hour. Patient remains in atrial fibrillation with RVR, she is on Lopressor at 50 twice a day she is also on amiodarone orally cardiology cut down the Lopressor down to 12.5 twice a day because of low blood pressure. Patient is intermittently receiving Lasix her urine output seems to be about 50 mL per hour. Antibiotics [place] patient remains on cefepime. Patient was reevaluated today on 10/15/23, remains in the ICU, intubated and mechanically ventilated. Patient remains on assist control rate of 24, FiO2 40% tidal volume 400 and PEEP of 8 ABG showed a pO2 of 84 pCO2 46 pH of 7.43, patient remains on propofol at 25 mcg/kg/m. Patient is also on cefepime for her E. coli infection in the urine she is also on Lasix 40 mg IV push twice a day with definite improvement in her renal status today. Continues to have relatively high CVP of 13. Creatinine is down to 1.58 today, and her IV fluid was cut down to KVO today. Chest x-ray is showing slight improvement in her fluid status. W see count is 14.7 definitely improved hemoglobin 12.7 basic metabolic profile is normal renal profile is improving with BUN 62 creatinine down to 1.58 from 2.39 yesterday Patient was reevaluated today on 10/16/23, remains in the ICU, intubated and mechanically ventilated. Patient is on assist control rate of 24 tidal volume 400 FiO2 40% and PEEP of 8. ABG showed a pO2 of 85 pCO2 48 pH of 7.44 patient remains on propofol at 25 mcg/kg/m, IV fluid is KVO, patient is easing vital HPI at 57 mL/h she has good urine output and continues to respond well to Lasix 40 mg IV push every 12 hours, renal functioning is improving, remains on cefepime for UTI. And she is also on eliquis. Echocardiogram showed mild LV dysfunction. Nonetheless the patient is doing much better with diuresis for the last few days. Chest x-ray is showing slight improvement, continues to have small bilateral pleural effusions. No need for thoracentesis at this point. After reviewing all of this, I have recommended that the patient goes on it and CPAP after stopping her propofol, and if tolerated may even consider weaning and extubation of this patient. W see count today is 11.3 hemoglobin is 12.3. Basic metabolic profile is normal, creatinine is steadily improving is down to 1.34 today. And blood sugar is 184 Objective - Vital Signs Vital signs: Vital Signs Temp 101.5 F H 10/16/23 12:00 Pulse 115 H 10/16/23 12:00 Resp 25 H 10/16/23 12:00 BP 90/63 10/16/23 07:00 Pulse Ox 98 10/16/23 12:00 FiO2 40 10/16/23 12:00 Intake & Output 10/15/23 10/16/23 10/16/23 18:59 06:59 18:59 Intake Total 3966.859 9719.077 608.333 Output Total 1665 1635 1295 Balance -219.978 -312.923 -686.667 Weight 145.3 kg 144.8 kg Intake: IV 578 312 156 Pressure bags 78 72 36 Sodium Chloride 0.9% 1, 500 240 120 000 ml @ 100 mls/hr IV . Q10H [facility] Rx#:[id number] Intake, IV Titration 207.022 236.077 137.333 Amount Cefepime 1 gm In Sodium 50 Chloride 0.9% 50 ml @ 12. 5 mls/hr IVPB Q12HR [facility] Rx#:[id number] Norepinephrine 8 mg In 11.572 Sodium Chloride 0.9% 250 ml @ 0.03 MCG/KG/MIN 7.86 mls/hr IV .Q24H [facility] Rx#: [id number] propofoL 1,000 mg In 195.450 236.077 87.333 Empty Bag 1 bag @ 15 MCG/ KG/MIN 12.186 mls/hr IV . Q8H13M [facility] Rx#:[id number] Tube Feeding 570 684 285 Other 90 90 30 Output: Urine 1665 1635 1295 Other: Voiding Method Indwelling Catheter Indwelling Catheter Indwelling Catheter ABP, PAP, CO, CI - Last Documented Arterial Blood Pressure 140/72 - Exam Physical Exam: Revealed 73-year-old female obese in no distress intubated and mechanically ventilated Head: Atraumatic normocephalic. HEENT:[Neck is supple.] [No neck masses.] [No thyromegaly.] [No JVD.] Endotracheal tube and orogastric tube are intact Chest: [Symmetrical chest expansion crackles at the bases bilaterally Cardiac Exam: Irregular irregular rhythm. [Normal S1 and S2, no S3 gallop, 2/6 systolic murmur thought the precordium. Abdomen: [Soft, nontender, no megaly, no rebound, no guarding, normal bowel sounds.] Extremities: [No clubbing, trace of bipedal edema, no cyanosis.] Good distal pulses bilaterally. Neurological Exam: Arousable while on propofol, follows simple instructions. Psychiatric: Seems to be alert and oriented, follows simple instructions but remains on propofol Skin: No rashes - Labs CBC & Chem 7: 10/16/23 04:22 10/16/23 04:22 Labs: Abnormal Lab Results - Last 24 Hours (Table) 10/15/23 10/15/23 10/16/23 Range/Units 14:07 18:07 00:07 WBC (3.8-10.6) k/uL Neutrophils # (1.3-7.7) k/uL Lymphocytes # (1.0-4.8) k/uL ABG pH (7.35-7.45) ABG pCO2 46 H (35-45) mmHg ABG HCO3 31 H (21-25) mmol/L ABG Total CO2 (19-24) mmol/L ABG O2 Saturation 98.1 H (94-97) % BUN (7-17) mg/dL Creatinine (0.52-1.04) mg/dL Glucose (74-99) mg/dL POC Glucose (mg/dL) 155 H 162 H (70-110) mg/dL Calcium (8.4-10.2) mg/dL Magnesium (1.6-2.3) mg/dL 10/16/23 10/16/23 10/16/23 Range/Units 04:22 04:22 05:37 WBC 11.3 H (3.8-10.6) k/uL Neutrophils # 10.4 H (1.3-7.7) k/uL Lymphocytes # 0.4 L (1.0-4.8) k/uL ABG pH (7.35-7.45) ABG pCO2 48 H (35-45) mmHg ABG HCO3 32 H (21-25) mmol/L ABG Total CO2 34 H (19-24) mmol/L ABG O2 Saturation (94-97) % BUN 66 H (7-17) mg/dL Creatinine 1.34 H (0.52-1.04) mg/dL Glucose 182 H (74-99) mg/dL POC Glucose (mg/dL) (70-110) mg/dL Calcium 8.3 L (8.4-10.2) mg/dL Magnesium 2.6 H (1.6-2.3) mg/dL 10/16/23 10/16/23 10/16/23 Range/Units 06:07 11:51 12:35 WBC (3.8-10.6) k/uL Neutrophils # (1.3-7.7) k/uL Lymphocytes # (1.0-4.8) k/uL ABG pH 7.46 H (7.35-7.45) ABG pCO2 47 H (35-45) mmHg ABG HCO3 34 H (21-25) mmol/L ABG Total CO2 35 H (19-24) mmol/L ABG O2 Saturation (94-97) % BUN (7-17) mg/dL Creatinine (0.52-1.04) mg/dL Glucose (74-99) mg/dL POC Glucose (mg/dL) 187 H 184 H (70-110) mg/dL Calcium (8.4-10.2) mg/dL Magnesium (1.6-2.3) mg/dL Microbiology - Last 24 Hours (Table) 10/12/23 16:35 Gram Stain - Final Sputum Sputum Culture - Final Assessment and Plan Assessment: Impression: Acute hypoxic respiratory failure secondary to acute systolic congestive heart failure, ejection fraction was noted to be 45% on her echocardiogram Bilateral pleural effusions/transudative in nature. Based on protein and LDH levels in the pleural effusion. Patient is status post bilateral thoracentesis Chronic atrial fibrillation with RVR, being addressed by cardiology E. coli urinary tract infection, remains on antibiotics/70 Benign essential hypertension Dyslipidemia History of pulmonary embolism Hypothyroidism Degenerative joint disease Possible underlying pneumonia but felt to be less likely based on the clinical history Recommendation: Continue diuretics Continue antibiotics Continue ventilatory support, possibly weaning trial today off propofol. And she will be placed on pressure support and CPAP.. Continue nutritional support/enteral feeding Continue anticoagulation therapy Continue amiodarone and beta blockers, as per cardiology Continue to monitor closely renal profile Continue bronchodilators and steroids Overall prognosis/long-term is relatively poor and guarded. We will continue to follow critical care time is over 30 Time with Patient: Greater than 30
[2023-10-16 16:07] LABS: Glucose,Whole Blood 141 mg/dL (70-110)
[2023-10-16] MEDS: NOREPINEPHRINE 8 MG in SODIUM CHLORIDE 0.9% 250 ML IV SCH (16:22)
[2023-10-16] MEDS: ATORVASTATIN 80 MG TAB PO SCH (20:00)
--- NOTE | 2023-10-16 20:08 | P.PN ---
Subjective Progress Note Date: 10/16/23 This is a 73-year-old female with past medical history significant for atrial fibrillation, PE, status post EKOS 02/2022, hypertension, hypothyroidism admitted with atrial fibrillation with RVR and multiple other medical issues.Evaluated and treated by cardiology. Presented to the hospital with complaints of heart palpitations, hypertension , shortness of breath 1 week.Positive orthopnea , reports sleeping sitting up in a recliner as well as living downstairs in her home to avoid climbing stairs. Cardizem drip initiated, rate improving. Cardiology consult in place. Troponins negative 3 , proBNP pending .EKG rate atrial fibrillation with RVR heart rate 132 . Echo reported normal LV functio n, mild pulmonary hypertension, moderate mitral and moderate tricuspid regurgitation .Chest x-ray no acute pulmonary process. UA reports positive nitrates, many bacteria, small leukocytes, urine culture pending. 09/30/2023 recently placed on 2 L nasal cannula, then increased to 4 L, maintaining O2 sats in the low 90s .complains of mild increased shortness of breath, which she reports started actually during the night. She has been on Lasix IV push every 12 hours, 24-hour I&O reflecting a negative fluid balance. Renal function mildly worsened, BUN 37, creatinine 1.26. Sodium 125 .Maintained on Rocephin for acute UTI. Afebrile, WBC 13.7. Blood sugars controlled. 10/01/23 yesterday developed worsening pulmonary edema, transfer to ICU. Chest x-ray at that time reported worsening of large perihilar consolidation noted greater on the right, pulmonary edema versus diffuse pneumonia. Received additional Lasix IV push, frequency increased yesterday diuresed well with 24- hour I&O reflecting a negative fluid balance. Maintained on BiPAP throughout the night, placed on 13 L nasal cannula to facilitate patient's diet intake this morning. Chest x-ray repeated this morning reporting improving bilateral areas of consolidation. Telemetry sinus rhythm, continues on Cardizem drip, tachycardic with heart rates in the 130s to 140s. Denies chest pain, palpitations. Afebrile, normal WBC. BUN 37, creatinine 1.30. Blood sugars controlled. 10/07/23 used BiPAP overnight, currently maintaining O2 sats in the 90s on 6 L nasal cannula. Chest x-ray reported bilateral pleural effusions, chest ultrasound reported right pleural effusion 6.8 cm, left pleural effusion 7.5 cm with both marked for possible thoracentesis. Diuresing on Lasix IV push with 24-hour I&O reflecting a negative fluid balance, but continues to have significant lower extremity edema. Telemetry atrial fibrillation with heart rates up to 120s. Reports palpitations, no chest pain. Evaluated by cardiolo gy, discussing RICO with cardioversion. 10/08/23 Eliquis on hold. status post right thoracentesis with 1200 MLS turbid pleural drainage aspirated. Tolerated procedure well. Postprocedure x-ray repo rted no pneumothorax, bilateral lower lobe infiltrate and small left effusion. Using BiPAP at night. Currently seem on Lasix IV push with 24-hour I&O reflecting a negative fluid balance. Telemetry atrial fibrillation with heart rates ranging from 90 to 110s. Maintaining O2 in the high 90s on 4-5 L nasal cannula. Bicarb 34, BUN 41, creatinine 1.03. 10/09/2023 chest x-ray reporting bilateral lower lobe infiltrate and small left effusion/no sizable pleural effusion on the right/no pneumothorax. Status post left thoracentesis this morning with 550 MLS turbid pleural drainage aspirated. Tolerated procedure well. Postprocedure chest x-ray reported no pneumothorax. Maintained on oral antiarrhythmics ,telemetry reporting atrial fibrillation. Cardioversion pending. Afebrile, normal WBC. Continues diuresing well on Lasix IV push with 24-hour I&O reflecting a negative fluid balance. sodium 136, potassium 3.8, bicarb 37, BUN 38, creatinine 0.97. Maintaining O2 sats in the 90s on 3 L nasal cannula. 10/10/2023 Eliquis resumed yesterday after thoracentesis. Pleural fluid Cytology pending . Telemetry atrial fibrillation, heart rate better controlled today on oral amiodarone, metoprolol, Cardizem. Cardioversion pending. BiPAP throughout the night. Denies chest pain, palpitations or shortness of breath. Maintaining O2 sats in the 90s on 2 L nasal cannula. Continues diuresing well on Lasix IV push with 24-hour I&O reflecting a negative fluid balance. Afebrile, normal WBC. Potassium 3.6, receiving replacement. BUN 36, creatinine 1.1 10/11/2023 BiPAP for short while during the night. Currently maintaining O2 sat in the 90s on room air. Continues diuresing well on Lasix IV push with 24-hour I&O reflecting a negative fluid balance. BUN 34, creatinine 1.24. Pleural fluid cytology pending. Cardizem discontinued, continues on amiodarone with metoprolol increased, A. fib controlled. Afebrile, normal WBC. Reports she ambulated yesterday, tolerated exertion well, O2 sat on room air after ambulation 95%. 10/14/2023 intubated, FiO2 40%/PEEP recently decreased to 8. Chest x-ray reported low lung volumes with grossly stable lung parenchyma opacities pred ominantly in lung bases, layering bilateral pleural effusions, Continues on diprovan, levophed and IV fluid hydration with saline 100 MLS an hour. Right pleural fluid cytology negative for malignancy. BNP 9280. BUN 62, creatinine increased to 2.39, lasix resumed. Continues on cefepime. Afebrile, WBC 24.6. Telemetry atrial fibrillation with RVR, antiarrhythmics adjusted per cardiology. 10/15/23 remains vent dependent with FiO2 40%/+8 of PEEP. Continues on levothyroid and diprovan. Maintained on empiric cefepime. Chest x-ray reporting stable; per pulmonary, pneumonia less likely. WBC decreased to 14.7. BUN 62, creatinine improving, decreased to 1.58. Reports patient follows commands. Echo reported suboptimal , reporting mild LV dysfunction. Telemetry atrial fibrillation with RVR, on oral amiodarone, beta jorge alberto increased with digoxin added to med regimen. Lasix resumed with improving urine output. 10/16/2023 Patient is seen and evaluated in follow-up continues in the ICU with cardiology and pulmonary following maintained on mechanical ventilation with an FiO2 of 40% and PEEP is 8. Undergoing sedation holidays and assessing for possible extubation today. Chest x-ray today shows continued left lung atelectasis with pleural effusions and patient is maintained on IV Lasix twice daily. Per nursing staff patient is awake and following commands and tolerating sedation h oliday. Plan for extubation today. Heart rate continues to be elevated and maintained on anticoagulation and amiodarone. Adjustments to medications per cardiology. Patient is afebrile maintained on cefepime for UTI and has been adequately treated and once transferred from ICU may not require continued antibiotic therapy. Review of systems, unable to obtain As patient is on mechanical ventilation Physical exam: Gen: This is a 73-year-old female who is continued on mechanical ventilation c urrently off sedation and following commands with an FiO2 of 40% and PEEP is 8, well-developed, well-nourished, morbidly obese HEENT: Head is atraumatic, normocephalic. Pupils equal, round. Sclerae is anicteric. NECK: Supple. No JVD. No lymphadenopathy. No thyromegaly. LUNGS: Clear to auscultation. No wheezes or rhonchi. No intercostal retractions. HEART: Regular rate and rhythm. No murmur. ABDOMEN: Soft. Bowel sounds are present. No masses. No tenderness. EXTREMITIES: No calf tenderness. Upper and lower extremities bilaterally with significant edema noted NEUROLOGICAL: Patient is awake, alert and oriented following commands off sedation. Diffusely weak Assessment: Chronic Atrial fibrillation with rapid ventricular rate Secondary Hypotension, pressor dependent, improved and off pressor support Acute on chronic CHF exacerbation, diastolic dysfunction, ef 55-60%. Bilateral pleural effusions status post bilateral thoracentesis,transudative. Cytology negative for malignancy. Possible underlying pneumonia, felt to be less likely as per pulmonary. Acute hypoxic respiratory failure , on mechanical ventilator-dependent ,secondary to the above Acute UTI, E. coli Acute on chronic renal failure, stage III Pulmonary embolism bilaterally status post EKOS, 03/14/2022 Pulmonary hypertension Moderate mitral and tricuspid regurgitation Hypothyroidism Hypertension, history of Hyperlipidemia Osteoarthritis with history right knee placement in July 2022. Morbid obesity, BMI 53.1 GI prophylaxis DVT prophylaxis Full code Plan: Continue on current medications with cardiology and pulmonary following maintained on mechanical ventilation and off sedation currently following edgar floyd with plans for possible extubating today Cardiology following making adjustments to medications and patient is maintained on amiodarone along with IV Lasix twice daily. Patient continues a significant CHF exacerbation and will continue IV Lasix and follow up on repeat labs as patient has chronic kidney disease Patient will need extensive physical therapy and most likely require rehab once stabilized and discharged Patient maintained on IV antibiotics in the form of cefepime as patient had UTI E. coli and has received adequate antibiotic therapy and will continue cefepime for now and once transferred out of the ICU consider discontinuing antibiotic therapy Overall poor prognosis given patient's significant comorbidities and prognosis is guarded at this time The impression and plan of care has been dictated by Juantia Shelby, Nurse Practitioner as directed. Dr. Bruce MD I have performed a history and examination and MDM of this patient, discussed the same with the dictator, and agree with the dictator's assessment and plan as written ,documented as a scribe. Based on total visit time, I have performed more than 50% of the visit. Objective - Vital Signs Vital signs: Vital Signs Temp 97.6 F 10/16/23 04:00 Pulse 125 H 10/16/23 08:08 Resp 24 10/16/23 07:00 BP 90/63 10/16/23 07:00 Pulse Ox 96 10/16/23 07:00 FiO2 40 10/16/23 07:34 Intake & Output 10/15/23 10/16/23 10/16/23 18:59 06:59 18:59 Intake Total 9445.200 5030.077 83 Output Total 1665 1635 75 Balance -219.978 -312.923 8 Weight 145.3 kg 144.8 kg Intake: IV 578 312 26 Pressure bags 78 72 6 Sodium Chloride 0.9% 1, 500 240 20 000 ml @ 100 mls/hr IV . Q10H ANNA Rx#:[id number] Intake, IV Titration 207.022 236.077 Amount Norepinephrine 8 mg In 11.572 Sodium Chloride 0.9% 250 ml @ 0.03 MCG/KG/MIN 7.86 mls/hr IV .Q24H ANNA Rx#: [id number] propofoL 1,000 mg In 195.450 236.077 Empty Bag 1 bag @ 15 MCG/ KG/MIN 12.186 mls/hr IV . Q8H13M ANNA Rx#:[id number] Tube Feeding 570 684 57 Other 90 90 Output: Urine 1665 1635 75 Other: Voiding Method Indwelling Catheter Indwelling Catheter ABP, PAP, CO, CI - Last Documented Arterial Blood Pressure 98/52 - Labs CBC & Chem 7: 10/16/23 04:22 10/16/23 16:15 Labs: Abnormal Lab Results - Last 24 Hours (Table) 10/15/23 10/15/23 10/15/23 Range/Units 12:05 14:07 18:07 WBC (3.8-10.6) k/uL Neutrophils # (1.3-7.7) k/uL Lymphocytes # (1.0-4.8) k/uL ABG pCO2 46 H (35-45) mmHg ABG HCO3 31 H (21-25) mmol/L ABG Total CO2 (19-24) mmol/L ABG O2 Saturation 98.1 H (94-97) % BUN (7-17) mg/dL Creatinine (0.52-1.04) mg/dL Glucose (74-99) mg/dL POC Glucose (mg/dL) 184 H 155 H (70-110) mg/dL Calcium (8.4-10.2) mg/dL Magnesium (1.6-2.3) mg/dL 10/16/23 10/16/23 10/16/23 Range/Units 00:07 04:22 04:22 WBC 11.3 H (3.8-10.6) k/uL Neutrophils # 10.4 H (1.3-7.7) k/uL Lymphocytes # 0.4 L (1.0-4.8) k/uL ABG pCO2 (35-45) mmHg ABG HCO3 (21-25) mmol/L ABG Total CO2 (19-24) mmol/L ABG O2 Saturation (94-97) % BUN 66 H (7-17) mg/dL Creatinine 1.34 H (0.52-1.04) mg/dL Glucose 182 H (74-99) mg/dL POC Glucose (mg/dL) 162 H (70-110) mg/dL Calcium 8.3 L (8.4-10.2) mg/dL Magnesium 2.6 H (1.6-2.3) mg/dL 10/16/23 10/16/23 Range/Units 05:37 06:07 WBC (3.8-10.6) k/uL Neutrophils # (1.3-7.7) k/uL Lymphocytes # (1.0-4.8) k/uL ABG pCO2 48 H (35-45) mmHg ABG HCO3 32 H (21-25) mmol/L ABG Total CO2 34 H (19-24) mmol/L ABG O2 Saturation (94-97) % BUN (7-17) mg/dL Creatinine (0.52-1.04) mg/dL Glucose (74-99) mg/dL POC Glucose (mg/dL) 187 H (70-110) mg/dL Calcium (8.4-10.2) mg/dL Magnesium (1.6-2.3) mg/dL Microbiology - Last 24 Hours (Table) 10/12/23 16:35 Gram Stain - Final Sputum Sputum Culture - Final
[2023-10-17] LABS: Glucose,Whole Blood 154 mg/dL (70-110)
[2023-10-17] MEDS: methylPREDNISolone SOD SUCCI 40 MG/ML 1 ML VIAL IV SCH ×4 (00:32→23:21)
[2023-10-17] MEDS: INSULIN ASPART (NovoLOG) 100 UNIT/ML VIAL SQ SCH ×5 (00:32→20:45)
[2023-10-17] MEDS: IPRATROPIUM-ALBUTEROL 3 ML NEB INHALATION SCH ×5 (02:35→21:10)
[2023-10-17 04:04] LABS: Basophils % (A) 0 %; Eosinophils # (A) 0.1 k/uL (0-0.7); Eosinophils % (A) 1 %; HGB 13.2 gm/dL (11.4-16.0); Hypochromasia Slight; Lymphocytes # (A) 0.4 k/uL (1.0-4.8); Lymphocytes % (A) 4 %; MCH 31.5 pg (25.0-35.0); MCHC 31.5 g/dL (31.0-37.0); MCV 100.1 fL (80.0-100.0); Macrocytosis Slight; Mean Platelet Volume 7.9; Monocytes # (A) 0.4 k/uL (0-1.0); Monocytes % (A) 3 %; Neutrophils # (A) 11.2 k/uL (1.3-7.7); Neutrophils % (A) 92 %; Platelet Count 282 k/uL (150-450); RDW 14.3 % (11.5-15.5); WBC 12.2 k/uL (3.8-10.6)
[2023-10-17 04:24] LABS: African American GFR (CKD) 55 (>60 ml/min/1.73 sqM); Anion Gap 6 mmol/L; Blood Urea Nitrogen 69 mg/dL (7-17); Calcium 8.6 mg/dL (8.4-10.2); Carbon Dioxide 31 mmol/L (22-30); Chloride 102 mmol/L (98-107); Glucose 146 mg/dL (74-99); Non-African American GFR(CKD) 48 (>60 ml/min/1.73 sqM); Sodium 139 mmol/L (137-145)
[2023-10-17] MEDS ORDERED: POTASSIUM BICARBONATE/CIT AC 20 MEQ TABLET.EFF NG-TUBE SCH (06:00)
[2023-10-17 06:10] LABS: Glucose,Whole Blood 143 mg/dL (70-110)
[2023-10-17] MEDS: LEVOTHYROXINE 88 MCG TAB PO SCH (06:22)
--- NOTE | 2023-10-17 07:35 | XR ---
EXAMINATION TYPE: XR chest 1V portable DATE OF EXAM: 10/17/2023 HISTORY: Shortness of breath. COMPARISON: 10/16/2023 TECHNIQUE: Single view of the chest is submitted. FINDINGS: Lung volumes are diminished. There are scattered infiltrates seen throughout both lung acuna. Small effusions seen. Endotracheal tube and NG tube have been removed. Central venous line unchanged in pos ition. No pneumothorax present The heart is stable. Hilar and mediastinal structures are within normal limits. Degenerative changes are seen of the dorsal spine. IMPRESSION: 1. Lung volumes are diminished. There are scattered infiltrates seen throughout both lung acuna. Sm all effusions seen. Endotracheal tube and NG tube have been removed.
--- NOTE | 2023-10-17 08:16 | P.PN ---
Subjective Progress Note Date: 10/17/23 Principal diagnosis: Persistent atrial fibrillation The patient is a 73-year-old female patient with history of heart failure as well as atrial fibrillation as well as hypertension and dyslipidemia and renal failure was admitted to the hospital with acute hypoxic respiratory failure. Initially she was started on diuretics for heart failure subsequently she developed renal failure and the diuretics was a systolic. Currently she is intubated and she is on mechanical ventilation for possible underlying pneumonia/sepsis and currently she is on norepinephrine 10/14/2023 The patient was seen and evaluated this morning. The patient remains intubated on mechanical ventilation. She remains hypotensive requiring norepinephrine. She is on amiodarone orally. She remains in nature fibrillation with overall heart rate around 120 bpm. I'm going to add a small dose of beta jorge alberto with metoprolol tartrate 12.5 mg by mouth twice a day to the current medical regimen. Continue oral anticoagulation. She is in process of having an echocardiogram later on today. The examination is remarkable for irregular rhythm with a systolic murmur at the right and left upper sternal border and bilateral upper and lower extremities edema October 152022 The patient was seen and evaluated this morning. She remains in atrial fibrillation with overall uncontrolled heart rate in spite of increasing the dose of metoprolol. She is also on amiodarone. I'm going to add digoxin to the current medical regimen. She does have edema in the lower extremities and she was started on Lasix IV. Her kidney function is slightly abnormal. The examination is remarkable for irregular heart rhythm with diminished breathing sounds bilaterally and bilateral lower extremities edema 10/16/2023 The patient was seen and evaluated this morning. She is awake. He potentially can be extubated later on today. Hemodynamically stable. The heart rate has somewhat improved continues to be in the 100 bpm. I'm going to increase the dose of beta jorge alberto with metoprolol to 50 mg by mouth twice a day. Continue digoxin and continue amiodarone and continue oral anticoagulation. She is having edema in the upper and lower extremity is and she is on Lasix IV which we will continue. October 172022 The patient was seen and evaluated this morning. She was extubated yesterday. Hemodynamically she is stable beside heart rate around 120 beats per minutes. Pressure is a stable. For that reason I'm going to increase the dose of metoprolol to 50 mg by mouth 3 times a day. She still have upper and lower extremities edema and she is on Lasix IV and has been making urine. She is on oral anticoagulation. She still on oxygen at 3 L at this point. The chest x- ray continues to show finding of bilateral infiltrate/heart failure Assessment Heart failure with preserved ejection fraction Pneumonia/sepsis Acute hypoxic respiratory failure secondary to the above Acute on chronic renal failure Atrial fibrillation with uncontrolled heart rate Multiple comorbid conditions Plan Continue the current medical regimen Increase the dose of metoprolol Continue digoxin and amiodarone Continue Lasix IV Follow-up with the patient Objective - Vital Signs Vital signs: Vital Signs Temp 98.3 F 10/17/23 04:00 Pulse 125 H 10/17/23 07:00 Resp 25 H 10/17/23 07:00 BP 90/63 10/16/23 07:00 Pulse Ox 97 10/17/23 07:00 FiO2 8 10/17/23 03:00 Intake & Output 10/16/23 10/17/23 10/17/23 18:59 06:59 18:59 Intake Total 835.333 136 3 Output Total 2295 890 50 Balance -1459.667 -754 -47 Weight 143.6 kg Intake: IV 283 36 3 Pressure bags 63 36 3 Sodium Chloride 0.9% 1, 220 000 ml @ 100 mls/hr IV . Q10H ANNA Rx#:[id number] Intake, IV Titration 137.333 100 Amount Cefepime 1 gm In Sodium 50 Chloride 0.9% 50 ml @ 12. 5 mls/hr IVPB Q12HR ANNA Rx#:[id number] Cefepime 2 gm In Sodium 100 Chloride 0.9% 100 ml @ 25 mls/hr IVPB Q12HR ANNA Rx #:[id number] propofoL 1,000 mg In 87.333 Empty Bag 1 bag @ 15 MCG/ KG/MIN 12.186 mls/hr IV . Q8H13M ANNA Rx#:[id number] Oral 100 Tube Feeding 285 Other 30 Output: Urine 2295 890 50 Other: Voiding Method Indwelling Catheter Indwelling Catheter ABP, PAP, CO, CI - Last Documented Arterial Blood Pressure 138/75 - Labs CBC & Chem 7: 10/17/23 03:55 10/17/23 03:55 Labs: Abnormal Lab Results - Last 24 Hours (Table) 10/16/23 10/16/2323 Range/Units 11:51 12:35 16:06 WBC (3.8-10.6) k/uL MCV (80.0-100.0) fL Neutrophils # (1.3-7.7) k/uL Lymphocytes # (1.0-4.8) k/uL ABG pH 7.46 H (7.35-7.45) ABG pCO2 47 H (35-45) mmHg ABG HCO3 34 H (21-25) mmol/L ABG Total CO2 35 H (19-24) mmol/L Carbon Dioxide (22-30) mmol/L BUN (7-17) mg/dL Creatinine (0.52-1.04) mg/dL Glucose (74-99) mg/dL POC Glucose (mg/dL) 184 H 141 H (70-110) mg/dL Magnesium (1.6-2.3) mg/dL 10/16/23 10/17/23 10/17/23 Range/Units 23:58 03:55 03:55 WBC 12.2 H (3.8-10.6) k/uL MCV 100.1 H (80.0-100.0) fL Neutrophils # 11.2 H (1.3-7.7) k/uL Lymphocytes # 0.4 L (1.0-4.8) k/uL ABG pH (7.35-7.45) ABG pCO2 (35-45) mmHg ABG HCO3 (21-25) mmol/L ABG Total CO2 (19-24) mmol/L Carbon Dioxide 31 H (22-30) mmol/L BUN 69 H (7-17) mg/dL Creatinine 1.13 H (0.52-1.04) mg/dL Glucose 146 H (74-99) mg/dL POC Glucose (mg/dL) 154 H (70-110) mg/dL Magnesium (1.6-2.3) mg/dL 10/17/23 10/17/23 Range/Units 03:55 06:03 WBC (3.8-10.6) k/uL MCV (80.0-100.0) fL Neutrophils # (1.3-7.7) k/uL Lymphocytes # (1.0-4.8) k/uL ABG pH (7.35-7.45) ABG pCO2 (35-45) mmHg ABG HCO3 (21-25) mmol/L ABG Total CO2 (19-24) mmol/L Carbon Dioxide (22-30) mmol/L BUN (7-17) mg/dL Creatinine (0.52-1.04) mg/dL Glucose (74-99) mg/dL POC Glucose (mg/dL) 143 H (70-110) mg/dL Magnesium 2.6 H (1.6-2.3) mg/dL
[2023-10-17] MEDS: PANTOPRAZOLE 40 MG/10 ML VIAL IVP SCH (09:15)
[2023-10-17] MEDS: FUROSEMIDE 10 MG/ML 10 ML VIAL IV SCH ×2 (09:16→20:43)
[2023-10-17] MEDS: AMIODARONE 200 MG TAB PO SCH (09:16)
[2023-10-17] MEDS: DIGOXIN 250 MCG/ML 2 ML AMP IVP SCH (09:16)
[2023-10-17] MEDS: METOPROLOL TARTRATE 50 MG TAB PO SCH ×3 (09:16→20:42)
[2023-10-17] MEDS: APIXABAN 5 MG TAB PO SCH ×2 (09:16→20:43)
[2023-10-17] MEDS: MAGNESIUM OXIDE 400 MG TAB PO SCH (09:17)
[2023-10-17] MEDS: guaiFENesin 600 MG TABLET.ER PO SCH ×2 (09:17→20:42)
[2023-10-17] MEDS: CEFEPIME 2 GM in SODIUM CHLORIDE 0.9% 100 ML IVPB SCH ×2 (09:17→20:43)
[2023-10-17] MEDS: CHLORHEXIDINE GLUCONATE 15 ML CUP MUCOUS MEM SCH (09:17)
--- NOTE | 2023-10-17 11:35 | P.PN ---
Subjective Progress Note Date: 10/17/23 Principal diagnosis: Acute hypoxic respiratory failure secondary to acute congestive heart failure with preserved ejection fraction and possible underlying pneumonia. 73-year-old female who presented to the emergency department on September 26, complaining of arrhythmias, and palpitations. The patient does have a history of hypertension, atrial fibrillation, hyperlipidemia, pulmonary embolism, and hypothyroidism. The patient apparently was having some lower extremity edema, shortness of breath, and orthopnea. She also had mild exertional dyspnea. The patient denied any chest pain or chest discomfort. She was seen by the ER physician, and admitted with a diagnosis of atrial fibrillation, CHF, and urinary tract infection. Today, a rapid response was called on this patient, and, R ICU charge nurse, who evaluated the patient, and thought the patient should come down to the intensive care unit, for further monitoring and management. She was given some IV Lasix, and placed on BiPAP, with settings of 16/6, and 100%. She was seen in the intensive care unit, room 255. She was sitting up in bed, with mild respiratory distress, on the BiPAP device. White count was 13.7, hemoglobin 14.5, hematocrit 44.4, and a normal platelet count. Sodium 135, potassium 3.9, chlorides 96, CO2 27, anion gap 12, BUN 37, and creatinine 1.26. N-terminal proBNP, on September 29, was 7020. The patient had chest x-rays on the and on the . Today's chest x-ray shows worsening pulmonary edema. On 10/12/2023, the patient is found to be short of breath. After doing signifi cant progress and being on room air oxygen, earlier last night, at around 10 PM, the patient became progressively more hypoxic. Initially she required 2 L and later on 5 L and subsequently she was placed on a BiPAP and she is currently on a BiPAP at a pressure of 16/6 cm water with an FiO2 of 45%. Her breathing is labored at this point in time. Note that the patient was being treated for the Cyst heart failure and fluid overload. She was being treated with Lasix. The patient was producing excellent urine output and she also had bilateral thoracentesis was further optimized her volume status and fluid balance. The patient denies having any chest pain. On examination, she has diminished breath sounds bilaterally along with some bibasilar crackles and breath sounds are slightly diminished on the right base compared to the left. Chest x-ray shows worsening in the interstitial infiltrates bilaterally and some limited patchy bibasilar opacities. No reported aspiration. The white cell count remains low at 7.3. Hemoglobin is at 13.1. BUN is 34 with a creatinine 1.24 and a sodium level is at 135. She is afebrile at this point in time. The patient has chronic atrial fibrillation and her current cardiac rhythm is sinus. On 10/13/2023, the patient is being seen for a follow-up. At this point in time, the patient is intubated on a mechanical ventilator. She is sedated on pr opofol. She was intubated yesterday because of an acute hypoxic respiratory failure and pulmonary edema. This morning, she was discussed with a rate of 24, tidal volume of 400, FiO2 is at 50% with a PEEP of 12. Chest x-ray shows improvement in the pulmonary edema compared to yesterday and a blood gas shows a pH of 7.52 with a pCO2 of 39 and pO2 of 120 and this was on FiO2 of 50%. The patient was taken off diuretics. Noted the patient was diuresed aggressively which is essentially pertinent acute kidney injury and the creatinine this morning is at 2.5 with a BUN of 54. Sodium levels of 136. Potassium levels at 4.7. The risk of 18.4 with a hemoglobin of 14.2. She was started on empiric antibiotic coverage with IV cefepime. Her cardiac rhythm is back in sinus and the patient is also undergoing related with Eliquis 5 mg by mouth twice a day. She remains on bronchodilators. The fluid balance over the past 24 hours as and possible 1.4 L. No fever. No chills. She is currently on no pressors. She'll be started on enteral feeding for nutritional support. Patient was reevaluated today on 10/14/2023, patient remains in the ICU, intubated and mechanically ventilated, she is on assist control rate of 24 tidal volume 400 FiO2 40% and PEEP of 10 however her ABG showed a pO2 of 118 pCO2 45 pH of 7.43, hence I cut down the PEEP from 10-8. Patient was initially admitted on 09/26 intubated on 10/12 and remains intubated. She was admitted mostly with congestive heart failure, atrial fibrillation and RVR, and she has a preserved ejection fraction. Chest x-ray continues to show evidence of congestive heart failure, underlying pneumonia is not entirely ruled out but felt to be less likely her pleural effusion was clearly transudative in nature consistent with CHF cytology on the fluid from the pleural effusion is also negative for underlying malignancy it patient continues to have leukocytosis with WBC of 24.6 hemoglobin 15.7, basic metabolic profile is normal however BUN is 62 creatinine 2.39, slightly worse compared to baseline of 1.10 few days ago, and diuretics we re placed temporarily on hold BNP level is over 9000. Patient remains on norepinephrine at 0.0; 0/m on propofol at 30 mcg/kg/m also on 0.9 normal saline at 100 mL per hour. Patient remains in atrial fibrillation with RVR, she is on Lopressor at 50 twice a day she is also on amiodarone orally cardiology cut down the Lopressor down to 12.5 twice a day because of low blood pressure. Patient is intermittently receiving Lasix her urine output seems to be about 50 mL per hour. Antibiotics [place] patient remains on cefepime. Patient was reevaluated today on 10/15/23, remains in the ICU, intubated and mechanically ventilated. Patient remains on assist control rate of 24, FiO2 40% tidal volume 400 and PEEP of 8 ABG showed a pO2 of 84 pCO2 46 pH of 7.43, patient remains on propofol at 25 mcg/kg/m. Patient is also on cefepime for her E. coli infection in the urine she is also on Lasix 40 mg IV push twice a day with definite improvement in her renal status today. Continues to have relatively high CVP of 13. Creatinine is down to 1.58 today, and her IV fluid was cut down to KVO today. Chest x-ray is showing slight improvement in her fluid status. W see count is 14.7 definitely improved hemoglobin 12.7 basic metabolic profile is normal renal profile is improving with BUN 62 creatinine down to 1.58 from 2.39 yesterday Patient was reevaluated today on 10/16/23, remains in the ICU, intubated and mechanically ventilated. Patient is on assist control rate of 24 tidal volume 400 FiO2 40% and PEEP of 8. ABG showed a pO2 of 85 pCO2 48 pH of 7.44 patient remains on propofol at 25 mcg/kg/m, IV fluid is KVO, patient is easing vital HPI at 57 mL/h she has good urine output and continues to respond well to Lasix 40 mg IV push every 12 hours, renal functioning is improving, remains on cefepime for UTI. And she is also on eliquis. Echocardiogram showed mild LV dysfunction. Nonetheless the patient is doing much better with diuresis for the last few days. Chest x-ray is showing slight improvement, continues to have small bilateral pleural effusions. No need for thoracentesis at this point. After reviewing all of this, I have recommended that the patient goes on it and CPAP after stopping her propofol, and if tolerated may even consider weaning and extubation of this patient. W see count today is 11.3 hemoglobin is 12.3. Basic metabolic profile is normal, creatinine is steadily improving is down to 1.34 today. And blood sugar is 184 Reevaluated today on 10/17, patient remains in the ICU, remains on BiPAP, she is now on 10/30/45%, and the plan is to transition from BiPAP to a high flow nasal cannula. Patient x-ray is showing slight worsening and worsening pulmonary edema and some recommending to increase her Lasix from 40 mg twice a day to 60 mg twice a day. Her IV fluids remains at KVO. Her overall clinical status remains marginal at best. Again there is worsening chest x-ray. Labs are basically unremarkable with improvement in her creatinine down to 1.13 in spite of aggressive diuresis. Looking at the fluid status, patient is -2 L in the last 24 hours Objective - Vital Signs Vital signs: Vital Signs Temp 98.2 F 10/17/23 08:00 Pulse 117 H 10/17/23 11:21 Resp 24 10/17/23 10:00 BP 90/63 10/16/23 07:00 Pulse Ox 98 10/17/23 10:00 FiO2 45 10/17/23 11:21 Intake & Output 10/16/23 10/17/23 10/17/23 18:59 06:59 18:59 Intake Total 835.333 136 262 Output Total 2295 890 1450 Balance -1459.667 -754 -1188 Weight 143.6 kg Intake: IV 283 36 12 Pressure bags 63 36 12 Sodium Chloride 0.9% 1, 220 000 ml @ 100 mls/hr IV . Q10H [facility] Rx#:[id number] Intake, IV Titration 137.333 100 100 Amount Cefepime 1 gm In Sodium 50 Chloride 0.9% 50 ml @ 12. 5 mls/hr IVPB Q12HR [facility] Rx#:[id number] Cefepime 2 gm In Sodium 100 Chloride 0.9% 100 ml @ 25 mls/hr IVPB Q12HR [facility] Rx #:[id number] Cefepime 2 gm In Sodium 100 Chloride 0.9% 100 ml @ 25 mls/hr IVPB Q12HR [facility] Rx #:[id number] propofoL 1,000 mg In 87.333 Empty Bag 1 bag @ 15 MCG/ KG/MIN 12.186 mls/hr IV . [id number] [facility] Rx#:[id number] Oral 100 150 Tube Feeding 285 Other 30 Output: Urine 2295 890 1450 Other: Voiding Method Indwelling Catheter Indwelling Catheter Indwelling Catheter ABP, PAP, CO, CI - Last Documented Arterial Blood Pressure 155/82 - Exam Physical Exam: Revealed 73-year-old female obese in no distress , on BiPAP 12//45% Head: Atraumatic normocephalic. HEENT:[Neck is supple.] [No neck masses.] [No thyromegaly.] [No JVD.] Chest: [Symmetrical chest expansion crackles at the bases bilaterally Cardiac Exam: Irregular irregular rhythm. [Normal S1 and S2, no S3 gallop, 2/6 systolic murmur thought the precordium. Abdomen: [Soft, nontender, no megaly, no rebound, no guarding, normal bowel sounds.] Extremities: [No clubbing, trace of bipedal edema, no cyanosis.] Good distal pulses bilaterally. Neurological Exam: Awake, follows simple instructions, seems to be generally weak. Psychiatric: Normal mood, affect and normal mental status examination Skin: No rashes - Labs CBC & Chem 7: 10/17/23 03:55 10/17/23 03:55 Labs: Abnormal Lab Results - Last 24 Hours (Table) 10/16/23 10/16/23 10/16/23 Range/Units 11:51 12:35 16:06 WBC (3.8-10.6) k/uL MCV (80.0-100.0) fL Neutrophils # (1.3-7.7) k/uL Lymphocytes # (1.0-4.8) k/uL ABG pH 7.46 H (7.35-7.45) ABG pCO2 47 H (35-45) mmHg ABG HCO3 34 H (21-25) mmol/L ABG Total CO2 35 H (19-24) mmol/L Carbon Dioxide (22-30) mmol/L BUN (7-17) mg/dL Creatinine (0.52-1.04) mg/dL Glucose (74-99) mg/dL POC Glucose (mg/dL) 184 H 141 H (70-110) mg/dL Magnesium (1.6-2.3) mg/dL 10/16/23 10/17/23 10/17/23 Range/Units 23:58 03:55 03:55 WBC 12.2 H (3.8-10.6) k/uL MCV 100.1 H (80.0-100.0) fL Neutrophils # 11.2 H (1.3-7.7) k/uL Lymphocytes # 0.4 L (1.0-4.8) k/uL ABG pH (7.35-7.45) ABG pCO2 (35-45) mmHg ABG HCO3 (21-25) mmol/L ABG Total CO2 (19-24) mmol/L Carbon Dioxide 31 H (22-30) mmol/L BUN 69 H (7-17) mg/dL Creatinine 1.13 H (0.52-1.04) mg/dL Glucose 146 H (74-99) mg/dL POC Glucose (mg/dL) 154 H (70-110) mg/dL Magnesium (1.6-2.3) mg/dL 10/17/23 10/17/23 Range/Units 03:55 06:03 WBC (3.8-10.6) k/uL MCV (80.0-100.0) fL Neutrophils # (1.3-7.7) k/uL Lymphocytes # (1.0-4.8) k/uL ABG pH (7.35-7.45) ABG pCO2 (35-45) mmHg ABG HCO3 (21-25) mmol/L ABG Total CO2 (19-24) mmol/L Carbon Dioxide (22-30) mmol/L BUN (7-17) mg/dL Creatinine (0.52-1.04) mg/dL Glucose (74-99) mg/dL POC Glucose (mg/dL) 143 H (70-110) mg/dL Magnesium 2.6 H (1.6-2.3) mg/dL Assessment and Plan Assessment: Impression: Acute hypoxic respiratory failure secondary to acute systolic congestive heart failure, ejection fraction was noted to be 45% on her echocardiogram Bilateral pleural effusions/transudative in nature. Based on protein and LDH levels in the pleural effusion. Patient is status post bilateral thoracentesis Chronic atrial fibrillation with RVR, being addressed by cardiology on amiodarone, which is also on eliquis, and metoprolol E. coli urinary tract infection, remains on antibiotics patient had E. coli, sensitive to all antibiotics, patient is on cefepime Benign essential hypertension Dyslipidemia History of pulmonary embolism Hypothyroidism Degenerative joint disease Possible underlying pneumonia but felt to be less likely based on the clinical history Recommendation: Continue diuretics, increase dose to 60 mg twice a day Continue antibiotics Continue BiPAP for now transition to airvo or high flow nasal cannula later today Continue anticoagulation therapy/eliquis Continue amiodarone and beta blockers Continue to monitor closely renal profile Continue bronchodilators and steroids Overall prognosis/mcc is relatively poor and guarded. We will continue to follow Time with Patient: Less than 30
[2023-10-17 11:43] LABS: Glucose,Whole Blood 165 mg/dL (70-110)
--- NOTE | 2023-10-17 13:20 | P.PN ---
Subjective Progress Note Date: 10/17/23 This is a 73-year-old female with past medical history significant for atrial fibrillation, PE, status post EKOS 02/2022, hypertension, hypothyroidism admitted with atrial fibrillation with RVR and multiple other medical issues.Evaluated and treated by cardiology. Presented to the hospital with complaints of heart palpitations, hypertension , shortness of breath 1 week.Positive orthopnea , reports sleeping sitting up in a recliner as well as living downstairs in her home to avoid climbing stairs. Cardizem drip initiated, rate improving. Cardiology consult in place. Troponins negative 3 , proBNP pending .EKG rate atrial fibrillation with RVR heart rate 132 . Echo reported normal LV function, mild pulmonary hypertension, moderate mitral and moderate tricuspid regurgitation .Chest x-ray no acute pulmonary process. UA reports positive nitrates, many bacteria, small leukocytes, urine culture pending. 09/30/2023 recently placed on 2 L nasal cannula, then increased to 4 L, maintaining O2 sats in the low 90s .complains of mild increased shortness of breath, which she reports started actually during the night. She has been on Lasix IV push every 12 hours, 24-hour I&O reflecting a negative fluid balance. Renal function mildly worsened, BUN 37, creatinine 1.26. Sodium 125 .Maintained on Rocephin for acute UTI. Afebrile, WBC 13.7. Blood sugars controlled. 10/01/23 yesterday developed worsening pulmonary edema, transfer to ICU. Chest x-ray at that time reported worsening of large perihilar consolidation noted greater on the right, pulmonary edema versus diffuse pneumonia. Received additional Lasix IV push, frequency increased yesterday diuresed well with 24- hour I&O reflecting a negative fluid balance. Maintained on BiPAP throughout the night, placed on 13 L nasal cannula to facilitate patient's diet intake this morning. Chest x-ray repeated this morning reporting improving bilateral areas of consolidation. Telemetry sinus rhythm, continues on Cardizem drip, t achycardic with heart rates in the 130s to 140s. Denies chest pain, palpitations. Afebrile, normal WBC. BUN 37, creatinine 1.30. Blood sugars controlled. 10/07/23 used BiPAP overnight, currently maintaining O2 sats in the 90s on 6 L nasal cannula. Chest x-ray reported bilateral pleural effusions, chest ultrasound reported right pleural effusion 6.8 cm, left pleural effusion 7.5 cm with both marked for possible thoracentesis. Diuresing on Lasix IV push with 24-hour I&O reflecting a negative fluid balance, but continues to have significant lower extremity edema. Telemetry atrial fibrillation with heart rates up to 120s. Reports palpitations, no chest pain. Evaluated by cardiology, discussing RICO with cardioversion. 10/08/23 Eliquis on hold. status post right thoracentesis with 1200 MLS turbid pleural drainage aspirated. Tolerated procedure well. Postprocedure x-ray reported no pneumothorax, bilateral lower lobe infiltrate and small left effusion. Using BiPAP at night. Currently seem on Lasix IV push with 24-hour I&O reflecting a negative fluid balance. Telemetry atrial fibrillation with heart rates ranging from 90 to 110s. Maintaining O2 in the high 90s on 4-5 L nasal cannula. Bicarb 34, BUN 41, creatinine 1.03. 10/09/2023 chest x-ray reporting bilateral lower lobe infiltrate and small left effusion/no sizable pleural effusion on the right/no pneumothorax. Status post left thoracentesis this morning with 550 MLS turbid pleural drainage aspirated. Tolerated procedure well. Postprocedure chest x-ray reported no pneumothorax. Maintained on oral antiarrhythmics ,telemetry reporting atrial fibrillation. Cardioversion pending. Afebrile, normal WBC. Continues diuresing well on Lasix IV push with 24-hour I&O reflecting a negative fluid balance. sodium 136, potassium 3.8, bicarb 37, BUN 38, creatinine 0.97. Maintaining O2 sats in the 90s on 3 L nasal cannula. 10/10/2023 Eliquis resumed yesterday after thoracentesis. Pleural fluid Cytology pending . Telemetry atrial fibrillation, heart rate better controlled today on oral amiodarone, metoprolol, Cardizem. Cardioversion pending. BiPAP throughout the night. Denies chest pain, palpitations or shortness of breath. Maintaining O2 sats in the 90s on 2 L nasal cannula. Continues diuresing well on Lasix IV push with 24-hour I&O reflecting a negative fluid balance. Afebrile, normal WBC. Potassium 3.6, receiving replacement. BUN 36, creatinine 1.1 10/11/2023 BiPAP for short while during the night. Currently maintaining O2 sat in the 90s on room air. Continues diuresing well on Lasix IV push with 24-hour I&O reflecting a negative fluid balance. BUN 34, creatinine 1.24. Pleural fluid cytology pending. Cardizem discontinued, continues on amiodarone with metoprolol increased, A. fib controlled. Afebrile, normal WBC. Reports she ambulated yesterday, tolerated exertion well, O2 sat on room air after ambulation 95%. 10/14/2023 intubated, FiO2 40%/PEEP recently decreased to 8. Chest x-ray reported low lung volumes with grossly stable lung parenchyma opacities predomi nantly in lung bases, layering bilateral pleural effusions, Continues on diprovan, levophed and IV fluid hydration with saline 100 MLS an hour. Right pleural fluid cytology negative for malignancy. BNP 9280. BUN 62, creatinine increased to 2.39, lasix resumed. Continues on cefepime. Afebrile, WBC 24.6. Telemetry atrial fibrillation with RVR, antiarrhythmics adjusted per cardiology. 10/15/23 remains vent dependent with FiO2 40%/+8 of PEEP. Continues on levothyroid and diprovan. Maintained on empiric cefepime. Chest x-ray reporting stable; per pulmonary, pneumonia less likely. WBC decreased to 14.7. BUN 62, creatinine improving, decreased to 1.58. Reports patient follows commands. Echo reported suboptimal , reporting mild LV dysfunction. Telemetry atrial fibrillation with RVR, on oral amiodarone, beta jorge alberto increased with digoxin added to med regimen. Lasix resumed with improving urine output. 10/16/2023 Patient is seen and evaluated in follow-up continues in the ICU with cardiology and pulmonary following maintained on mechanical ventilation with an FiO2 of 40% and PEEP is 8. Undergoing sedation holidays and assessing for possible extubation today. Chest x-ray today shows continued left lung atelectasis with pleural effusions and patient is maintained on IV Lasix twice daily. Per nursing staff patient is awake and following commands and tolerating sedation holiday. Plan for extubation today. Heart rate continues to be elevated and maintained on anticoagulation and amiodarone. Adjustments to medications per cardiology. Patient is afebrile maintained on cefepime for UTI and has been adequately treated and once transferred from ICU may not require continued antibiotic therapy. 10/17. Patient seen and examined. Currently on BiPAP. States she is feeling better. Blood work done this morning showed WBC 12.2, hemoglobin 13.2, platelet count 282, sodium 100, potassium 4, BUN 69, creatinine 1.13. Chest x-ray done this morning showed worsening pulmonary edema. REVIEW OF SYSTEMS: CONSTITUTIONAL: No fever, no malaise,. CARDIOVASCULAR: No chest pain, no palpitations, no syncope. PULMONARY: No shortness of breath, no cough, GASTROINTESTINAL: No diarrhea, no nausea, no vomiting, no abdominal pain. NEUROLOGICAL: No headaches, no weakness, PHYSICAL EXAMINATION: GENERAL: The patient is alert and oriented x3, chronically ill-looking HEENT: Pupils are round and equally reacting to light. EOMI. No scleral icterus. No conjunctival pallor. Normocephalic, atraumatic. No pharyngeal erythema. No thyromegaly. CARDIOVASCULAR: S1 and S2 present. No murmurs, rubs, or gallops. Tachycardic, irregular in rate and rhythm PULMONARY: Diminished breath sounds at the bases bilaterally, no wheezing or crackles. ABDOMEN: Soft, nontender, nondistended, normoactive bowel sounds. No palpable organomegaly. MUSCULOSKELETAL: No joint swelling or deformity. EXTREMITIES: No cyanosis, clubbing, or pedal edema. NEUROLOGICAL: Gross neurological examination did not reveal any focal deficits. SKIN: No rashes. Assessment and plan Chronic Atrial fibrillation with rapid ventricular rate Secondary Hypotension, pressor dependent, improved and off pressor support Acute on chronic CHF exacerbation, diastolic dysfunction, ef 55-60%. Bilateral pleural effusions status post bilateral thoracentesis,transudative. Cytology negative for malignancy. Possible underlying pneumonia, felt to be less likely as per pulmonary. Acute hypoxic respiratory failure , on mechanical ventilator-dependent ,secondary to the above Acute UTI, E. coli Acute on chronic renal failure, stage III Pulmonary embolism bilaterally status post EKOS, 03/14/2022 Pulmonary hypertension Moderate mitral and tricuspid regurgitation Hypothyroidism Hypertension, history of Hyperlipidemia Osteoarthritis with history right knee placement in July 2022. Morbid obesity, BMI 53.1 Monitor vital signs Monitor CBC Monitor CMP Continue telemetry monitoring Encourage use of incentive spirometer Aggressive bronchopulmonary hygiene Continue use of BiPAP as needed Strict I's and O's, daily Continue metoprolol Continue digoxin and amiodarone Continue Lasix IV Continue cefepime Critical care following Cardiology following Labs and medication were reviewed.. Continue same treatment. Continue with sym ptomatic treatment. Resume home medication. Monitor labs and vitals. DVT and GI prophylaxis. Further recommendations as per clinical course of the patient Dictation was produced using [employer] dictation software. please excuse any grammatical, word or spelling errors. Objective - Vital Signs Vital signs: Vital Signs Temp 98.4 F 10/17/23 12:00 Pulse 125 H 10/17/23 12:00 Resp 29 H 10/17/23 12:00 BP 90/63 10/16/23 07:00 Pulse Ox 96 10/17/23 12:00 FiO2 45 10/17/23 12:00 Intake & Output 10/16/23 10/17/23 10/17/23 18:59 06:59 18:59 Intake Total 835.333 136 618 Output Total 2295 890 2050 Balance -6149.667 -754 -1432 Weight 143.6 kg Intake: IV 283 36 18 Pressure bags 63 36 18 Sodium Chloride 0.9% 1, 220 000 ml @ 100 mls/hr IV . Q10H ANNA Rx#:[id number] Intake, IV Titration 137.333 100 100 Amount Cefepime 1 gm In Sodium 50 Chloride 0.9% 50 ml @ 12. 5 mls/hr IVPB Q12HR ANNA Rx#:[id number] Cefepime 2 gm In Sodium 100 Chloride 0.9% 100 ml @ 25 mls/hr IVPB Q12HR ANNA Rx #:[id number] Cefepime 2 gm In Sodium 100 Chloride 0.9% 100 ml @ 25 mls/hr IVPB Q12HR ANNA Rx #:[id number] propofoL 1,000 mg In 87.333 Empty Bag 1 bag @ 15 MCG/ KG/MIN 12.186 mls/hr IV . Q8H13M ANNA Rx#:[id number] Oral 100 500 Tube Feeding 285 Other 30 Output: Urine 2295 890 2050 Other: Voiding Method Indwelling Catheter Indwelling Catheter Indwelling Catheter ABP, PAP, CO, CI - Last Documented Arterial Blood Pressure 112/74 - Labs CBC & Chem 7: 10/17/23 03:55 10/17/23 03:55 Labs: Abnormal Lab Results - Last 24 Hours (Table) 10/16/23 10/16/23 10/17/23 Range/Units 16:06 23:58 03:55 WBC 12.2 H (3.8-10.6) k/uL MCV 100.1 H (80.0-100.0) fL Neutrophils # 11.2 H (1.3-7.7) k/uL Lymphocytes # 0.4 L (1.0-4.8) k/uL Carbon Dioxide (22-30) mmol/L BUN (7-17) mg/dL Creatinine (0.52-1.04) mg/dL Glucose (74-99) mg/dL POC Glucose (mg/dL) 141 H 154 H (70-110) mg/dL Magnesium (1.6-2.3) mg/dL 10/17/23 10/17/23 10/17/23 Range/Units 03:55 03:55 06:03 WBC (3.8-10.6) k/uL MCV (80.0-100.0) fL Neutrophils # (1.3-7.7) k/uL Lymphocytes # (1.0-4.8) k/uL Carbon Dioxide 31 H (22-30) mmol/L BUN 69 H (7-17) mg/dL Creatinine 1.13 H (0.52-1.04) mg/dL Glucose 146 H (74-99) mg/dL POC Glucose (mg/dL) 143 H (70-110) mg/dL Magnesium 2.6 H (1.6-2.3) mg/dL 10/17/23 Range/Units 11:42 WBC (3.8-10.6) k/uL MCV (80.0-100.0) fL Neutrophils # (1.3-7.7) k/uL Lymphocytes # (1.0-4.8) k/uL Carbon Dioxide (22-30) mmol/L BUN (7-17) mg/dL Creatinine (0.52-1.04) mg/dL Glucose (74-99) mg/dL POC Glucose (mg/dL) 165 H (70-110) mg/dL Magnesium (1.6-2.3) mg/dL
[2023-10-17] MEDS: NOREPINEPHRINE 8 MG in SODIUM CHLORIDE 0.9% 250 ML IV SCH (16:11)
[2023-10-17 16:20] LABS: Glucose,Whole Blood 163 mg/dL (70-110)
[2023-10-17] MEDS: ATORVASTATIN 80 MG TAB PO SCH (20:42)
[2023-10-17] MEDS: DOCUSATE 100 MG CAP PO SCH (20:42)
[2023-10-17 20:45] LABS: Glucose,Whole Blood 163 mg/dL (70-110)
[2023-10-17] MEDS: LORazepam 2 MG/ML INJ IV PRN (21:01)
[2023-10-17 23:30] LABS: Glucose,Whole Blood 154 mg/dL (70-110)
[2023-10-18] MEDS: IPRATROPIUM-ALBUTEROL 3 ML NEB INHALATION SCH ×6 (00:20→21:13)
[2023-10-18] MEDS: INSULIN ASPART (NovoLOG) 100 UNIT/ML VIAL SQ SCH ×4 (05:33→20:56)
[2023-10-18 05:35] LABS: HCT 42.5 % (34.0-46.0); HGB 13.3 gm/dL (11.4-16.0); Hypochromasia Slight; MCHC 31.3 g/dL (31.0-37.0); MCV 99.3 fL (80.0-100.0); Macrocytosis Slight; Mean Platelet Volume 8.3; Platelet Count 305 k/uL (150-450); RBC 4.28 m/uL (3.80-5.40); RDW 14.5 % (11.5-15.5)
[2023-10-18 05:36] LABS: Glucose,Whole Blood 168 mg/dL (70-110)
[2023-10-18 05:51] LABS: African American GFR (CKD) 54 (>60 ml/min/1.73 sqM); Anion Gap 6 mmol/L; Blood Urea Nitrogen 72 mg/dL (7-17); Calcium 8.8 mg/dL (8.4-10.2); Carbon Dioxide 32 mmol/L (22-30); Chloride 100 mmol/L (98-107); Glucose 158 mg/dL (74-99); Non-African American GFR(CKD) 47 (>60 ml/min/1.73 sqM); Potassium 4.7 mmol/L (3.5-5.1); Sodium 138 mmol/L (137-145)
[2023-10-18] MEDS: LEVOTHYROXINE 88 MCG TAB PO SCH (05:59)
[2023-10-18] MEDS: methylPREDNISolone SOD SUCCI 40 MG/ML 1 ML VIAL IV SCH ×2 (08:03→15:39)
--- NOTE | 2023-10-18 08:04 | XR ---
EXAMINATION TYPE: XR chest 1V portable DATE OF EXAM: 10/18/2023 5:24 AM CLINICAL INDICATION:Female, 73 years old with history of ICU management; [facility] COMPARISON: Chest radiographs from 10/17/2023 TECHNIQUE: XR chest 1V portable Frontal view of the chest. FINDINGS: Lungs/Pleura: Improved aeration in today's exam. There is no evidence of right pleural effusion, foca l consolidation, or pneumothorax. There is blunting of left costophrenic angle. Pulmonary vascularity: Unremarkable. Heart/mediastinum: Cardiomediastinal silhouette is unremarkable. Musculoskeletal: No acute osseous pathology. Other findings: None Lines/Tubes: Left central venous catheter with distal tip at the cavoatrial junction. IMPRESSION: Improved aeration of the lungs. Stable left central venous catheter placement.
[2023-10-18] MEDS: PANTOPRAZOLE 40 MG/10 ML VIAL IVP SCH (08:05)
[2023-10-18] MEDS: FUROSEMIDE 10 MG/ML 10 ML VIAL IV SCH ×2 (08:05→20:56)
[2023-10-18] MEDS: AMIODARONE 200 MG TAB PO SCH ×2 (08:06→20:56)
[2023-10-18] MEDS: DOCUSATE 100 MG CAP PO SCH ×2 (08:06→20:56)
[2023-10-18] MEDS: guaiFENesin 600 MG TABLET.ER PO SCH ×2 (08:06→20:56)
[2023-10-18] MEDS: polyethylene glycoL 3350 17 GM POWD.PACK PO SCH (08:07)
[2023-10-18] MEDS: APIXABAN 5 MG TAB PO SCH ×2 (08:07→20:55)
[2023-10-18] MEDS: MAGNESIUM OXIDE 400 MG TAB PO SCH (08:07)
[2023-10-18] MEDS: METOPROLOL TARTRATE 50 MG TAB PO SCH ×2 (08:07→20:55)
[2023-10-18] MEDS: DIGOXIN 250 MCG/ML 2 ML AMP IVP SCH (08:16)
[2023-10-18] MEDS: CEFEPIME 2 GM in SODIUM CHLORIDE 0.9% 100 ML IVPB SCH (08:45)
--- NOTE | 2023-10-18 08:49 | P.PN ---
Subjective Progress Note Date: 10/18/23 Principal diagnosis: Persistent atrial fibrillation The patient is a 73-year-old female patient with history of heart failure as well as atrial fibrillation as well as hypertension and dyslipidemia and renal failure was admitted to the hospital with acute hypoxic respiratory failure. Initially she was started on diuretics for heart failure subsequently she developed renal failure and the diuretics was a systolic. Currently she is intubated and she is on mechanical ventilation for possible underlying pneumonia/sepsis and currently she is on norepinephrine 10/14/2023 The patient was seen and evaluated this morning. The patient remains intubated on mechanical ventilation. She remains hypotensive requiring norepinephrine. She is on amiodarone orally. She remains in nature fibrillation with overall heart rate around 120 bpm. I'm going to add a small dose of beta jorge alberto with metoprolol tartrate 12.5 mg by mouth twice a day to the current medical regimen. Continue oral anticoagulation. She is in process of having an echocardiogram later on today. The examination is remarkable for irregular rhythm with a systolic murmur at the right and left upper sternal border and bilateral upper and lower extremities edema October 152022 The patient was seen and evaluated this morning. She remains in atrial fibrillation with overall uncontrolled heart rate in spite of increasing the dose of metoprolol. She is also on amiodarone. I'm going to add digoxin to the current medical regimen. She does have edema in the lower extremities and she was started on Lasix IV. Her kidney function is slightly abnormal. The examination is remarkable for irregular heart rhythm with diminished breathing sounds bilaterally and bilateral lower extremities edema 10/16/2023 The patient was seen and evaluated this morning. She is awake. He potentially can be extubated later on today. Hemodynamically stable. The heart rate has somewhat improved continues to be in the 100 bpm. I'm going to increase the dose of beta jorge alberto with metoprolol to 50 mg by mouth twice a day. Continue digoxin and continue amiodarone and continue oral anticoagulation. She is having edema in the upper and lower extremity is and she is on Lasix IV which we will continue. October 172022 The patient was seen and evaluated this morning. She was extubated yesterday. Hemodynamically she is stable beside heart rate around 120 beats per minutes. Pressure is a stable. For that reason I'm going to increase the dose of metoprolol to 50 mg by mouth 3 times a day. She still have upper and lower extremities edema and she is on Lasix IV and has been making urine. She is on oral anticoagulation. She still on oxygen at 3 L at this point. The chest x- ray continues to show finding of bilateral infiltrate/heart failure 10/18/2023 The patient was seen and evaluated this morning. She was extubated 48 hours ago. Hemodynamically she is stable beside still tachycardia with the atrial fibrillation. She is on anticoagulation. I'm going to increase the dose of metoprolol and increase dose of amiodarone as well. She still hypoxic requiring oxygen. She started having upper and lower extremity is edema and she is on Lasix IV. The creatinine remains stable Assessment Heart failure with preserved ejection fraction Pneumonia/sepsis Acute hypoxic respiratory failure secondary to the above Acute on chronic renal failure Atrial fibrillation with uncontrolled heart rate Multiple comorbid conditions Plan Continue the current medical regimen Increase the dose of metoprolol Increase the dose of amiodarone Continue Lasix IV Follow-up with the patient Objective - Vital Signs Vital signs: Vital Signs Temp 98.2 F 10/18/23 08:00 Pulse 128 H 10/18/23 08:42 Resp 22 10/18/23 08:00 BP 90/63 10/16/23 07:00 Pulse Ox 97 10/18/23 08:42 FiO2 45 10/18/23 04:00 Intake & Output 10/17/23 10/18/23 10/18/23 18:59 06:59 18:59 Intake Total 1036 136 6 Output Total 2580 1590 100 Balance -7974 -1454 -94 Weight 145.1 kg Intake: IV 36 136 6 Cefepime 2 gm In Sodium 100 Chloride 0.9% 100 ml @ 25 mls/hr IVPB Q12HR ANNA Rx #:[id number] Pressure bags 36 36 6 Intake, IV Titration 100 Amount Cefepime 2 gm In Sodium 100 Chloride 0.9% 100 ml @ 25 mls/hr IVPB Q12HR ANNA Rx #:[id number] Oral 900 Output: Urine 2580 1590 100 Other: Voiding Method Indwelling Catheter Indwelling Catheter ABP, PAP, CO, CI - Last Documented Arterial Blood Pressure 116/74 - Labs CBC & Chem 7: 10/18/23 05:30 10/18/23 05:30 Labs: Abnormal Lab Results - Last 24 Hours (Table) 10/17/23 10/17/23 10/17/23 Range/Units 11:42 16:19 20:44 WBC (3.8-10.6) k/uL Carbon Dioxide (22-30) mmol/L BUN (7-17) mg/dL Creatinine (0.52-1.04) mg/dL Glucose (74-99) mg/dL POC Glucose (mg/dL) 165 H 163 H 163 H (70-110) mg/dL 10/17/23 10/18/23 10/18/23 Range/Units 23:28 05:30 05:30 WBC 11.0 H (3.8-10.6) k/uL Carbon Dioxide 32 H (22-30) mmol/L BUN 72 H (7-17) mg/dL Creatinine 1.15 H (0.52-1.04) mg/dL Glucose 158 H (74-99) mg/dL POC Glucose (mg/dL) 154 H (70-110) mg/dL 10/18/23 Range/Units 05:31 WBC (3.8-10.6) k/uL Carbon Dioxide (22-30) mmol/L BUN (7-17) mg/dL Creatinine (0.52-1.04) mg/dL Glucose (74-99) mg/dL POC Glucose (mg/dL) 168 H (70-110) mg/dL
[2023-10-18] MEDS ORDERED: METOPROLOL TARTRATE 50 MG TAB PO STA (09:32)
[2023-10-18 11:21] LABS: Glucose,Whole Blood 152 mg/dL (70-110)
--- NOTE | 2023-10-18 12:42 | P.PN ---
Subjective Progress Note Date: 10/18/23 This is a 73-year-old female with past medical history significant for atrial fibrillation, PE, status post EKOS 02/2022, hypertension, hypothyroidism admitted with atrial fibrillation with RVR and multiple other medical issues.Evaluated and treated by cardiology. Presented to the hospital with complaints of heart palpitations, hypertension , shortness of breath 1 week.Positive orthopnea , reports sleeping sitting up in a recliner as well as living downstairs in her home to avoid climbing stairs. Cardizem drip initiated, rate improving. Cardiology consult in place. Troponins negative 3 , proBNP pending .EKG rate atrial fibrillation with RVR heart rate 132 . Echo reported normal LV function, mild pulmonary hypertension, moderate mitral and moderate tricuspid regurgitation .Chest x-ray no acute pulmonary process. UA reports positive nitrates, many bacteria, small leukocytes, urine culture pending. 09/30/2023 recently placed on 2 L nasal cannula, then increased to 4 L, maintaining O2 sats in the low 90s .complains of mild increased shortness of breath, which she reports started actually during the night. She has been on Lasix IV push every 12 hours, 24-hour I&O reflecting a negative fluid balance. Renal function mildly worsened, BUN 37, creatinine 1.26. Sodium 125 .Maintained on Rocephin for acute UTI. Afebrile, WBC 13.7. Blood sugars controlled. 10/01/23 yesterday developed worsening pulmonary edema, transfer to ICU. Chest x-ray at that time reported worsening of large perihilar consolidation noted greater on the right, pulmonary edema versus diffuse pneumonia. Received additional Lasix IV push, frequency increased yesterday diuresed well with 24- hour I&O reflecting a negative fluid balance. Maintained on BiPAP throughout the night, placed on 13 L nasal cannula to facilitate patient's diet intake this morning. Chest x-ray repeated this morning reporting improving bilateral areas of consolidation. Telemetry sinus rhythm, continues on Cardizem drip, t achycardic with heart rates in the 130s to 140s. Denies chest pain, palpitations. Afebrile, normal WBC. BUN 37, creatinine 1.30. Blood sugars controlled. 10/07/23 used BiPAP overnight, currently maintaining O2 sats in the 90s on 6 L nasal cannula. Chest x-ray reported bilateral pleural effusions, chest ultrasound reported right pleural effusion 6.8 cm, left pleural effusion 7.5 cm with both marked for possible thoracentesis. Diuresing on Lasix IV push with 24-hour I&O reflecting a negative fluid balance, but continues to have significant lower extremity edema. Telemetry atrial fibrillation with heart rates up to 120s. Reports palpitations, no chest pain. Evaluated by cardiology, discussing RICO with cardioversion. 10/08/23 Eliquis on hold. status post right thoracentesis with 1200 MLS turbid pleural drainage aspirated. Tolerated procedure well. Postprocedure x-ray reported no pneumothorax, bilateral lower lobe infiltrate and small left effusion. Using BiPAP at night. Currently seem on Lasix IV push with 24-hour I&O reflecting a negative fluid balance. Telemetry atrial fibrillation with heart rates ranging from 90 to 110s. Maintaining O2 in the high 90s on 4-5 L nasal cannula. Bicarb 34, BUN 41, creatinine 1.03. 10/09/2023 chest x-ray reporting bilateral lower lobe infiltrate and small left effusion/no sizable pleural effusion on the right/no pneumothorax. Status post left thoracentesis this morning with 550 MLS turbid pleural drainage aspirated. Tolerated procedure well. Postprocedure chest x-ray reported no pneumothorax. Maintained on oral antiarrhythmics ,telemetry reporting atrial fibrillation. Cardioversion pending. Afebrile, normal WBC. Continues diuresing well on Lasix IV push with 24-hour I&O reflecting a negative fluid balance. sodium 136, potassium 3.8, bicarb 37, BUN 38, creatinine 0.97. Maintaining O2 sats in the 90s on 3 L nasal cannula. 10/10/2023 Eliquis resumed yesterday after thoracentesis. Pleural fluid Cytology pending . Telemetry atrial fibrillation, heart rate better controlled today on oral amiodarone, metoprolol, Cardizem. Cardioversion pending. BiPAP throughout the night. Denies chest pain, palpitations or shortness of breath. Maintaining O2 sats in the 90s on 2 L nasal cannula. Continues diuresing well on Lasix IV push with 24-hour I&O reflecting a negative fluid balance. Afebrile, normal WBC. Potassium 3.6, receiving replacement. BUN 36, creatinine 1.1 10/11/2023 BiPAP for short while during the night. Currently maintaining O2 sat in the 90s on room air. Continues diuresing well on Lasix IV push with 24-hour I&O reflecting a negative fluid balance. BUN 34, creatinine 1.24. Pleural fluid cytology pending. Cardizem discontinued, continues on amiodarone with metoprolol increased, A. fib controlled. Afebrile, normal WBC. Reports she ambulated yesterday, tolerated exertion well, O2 sat on room air after ambulation 95%. 10/14/2023 intubated, FiO2 40%/PEEP recently decreased to 8. Chest x-ray reported low lung volumes with grossly stable lung parenchyma opacities predomi nantly in lung bases, layering bilateral pleural effusions, Continues on diprovan, levophed and IV fluid hydration with saline 100 MLS an hour. Right pleural fluid cytology negative for malignancy. BNP 9280. BUN 62, creatinine increased to 2.39, lasix resumed. Continues on cefepime. Afebrile, WBC 24.6. Telemetry atrial fibrillation with RVR, antiarrhythmics adjusted per cardiology. 10/15/23 remains vent dependent with FiO2 40%/+8 of PEEP. Continues on levothyroid and diprovan. Maintained on empiric cefepime. Chest x-ray reporting stable; per pulmonary, pneumonia less likely. WBC decreased to 14.7. BUN 62, creatinine improving, decreased to 1.58. Reports patient follows commands. Echo reported suboptimal , reporting mild LV dysfunction. Telemetry atrial fibrillation with RVR, on oral amiodarone, beta jorge alberto increased with digoxin added to med regimen. Lasix resumed with improving urine output. 10/16/2023 Patient is seen and evaluated in follow-up continues in the ICU with cardiology and pulmonary following maintained on mechanical ventilation with an FiO2 of 40% and PEEP is 8. Undergoing sedation holidays and assessing for possible extubation today. Chest x-ray today shows continued left lung atelectasis with pleural effusions and patient is maintained on IV Lasix twice daily. Per nursing staff patient is awake and following commands and tolerating sedation holiday. Plan for extubation today. Heart rate continues to be elevated and maintained on anticoagulation and amiodarone. Adjustments to medications per cardiology. Patient is afebrile maintained on cefepime for UTI and has been adequately treated and once transferred from ICU may not require continued antibiotic therapy. 10/17. Patient seen and examined. Currently on BiPAP. States she is feeling better. Blood work done this morning showed WBC 12.2, hemoglobin 13.2, platelet count 282, sodium 100, potassium 4, BUN 69, creatinine 1.13. Chest x-ray done this morning showed worsening pulmonary edema. 10/18. Patient seen and examined. Currently on nasal cannula. States she feels much better. States swelling of lower extremities has improved. Levaquin this morning showed WBC 11, hemoglobin 13.3, platelet count 305, sodium 1:30, potassium 4.7, BUN 72, crit 1.15 REVIEW OF SYSTEMS: CONSTITUTIONAL: No fever, no malaise,. CARDIOVASCULAR: No chest pain, no palpitations, no syncope. PULMONARY: Still gets short of breath on exertion GASTROINTESTINAL: No diarrhea, no nausea, no vomiting, no abdominal pain. NEUROLOGICAL: No headaches, no weakness, PHYSICAL EXAMINATION: GENERAL: The patient is alert and oriented x3, chronically ill-looking HEENT: Pupils are round and equally reacting to light. EOMI. No scleral icterus. No conjunctival pallor. Normocephalic, atraumatic. No pharyngeal erythema. No thyromegaly. CARDIOVASCULAR: S1 and S2 present. No murmurs, rubs, or gallops. Tachycardic, irregular in rate and rhythm PULMONARY: Diminished breath sounds at the bases bilaterally, no wheezing or crackles. ABDOMEN: Soft, nontender, nondistended, normoactive bowel sounds. No palpable organomegaly. MUSCULOSKELETAL: No joint swelling or deformity. EXTREMITIES: 1+ pitting edema of lower extremities bilaterally NEUROLOGICAL: Gross neurological examination did not reveal any focal deficits. SKIN: No rashes. Assessment and plan Chronic Atrial fibrillation with rapid ventricular rate Secondary Hypotension, pressor dependent, improved and off pressor support Acute on chronic CHF exacerbation, diastolic dysfunction, ef 55-60%. Bilateral pleural effusions status post bilateral thoracentesis,transudative. Cytology negative for malignancy. Possible underlying pneumonia, felt to be less likely as per pulmonary. Acute hypoxic respiratory failure , on mechanical ventilator-dependent ,secondary to the above Acute UTI, E. coli Acute on chronic renal failure, stage III Pulmonary embolism bilaterally status post EKOS, 03/14/2022 Pulmonary hypertension Moderate mitral and tricuspid regurgitation Hypothyroidism Hypertension, history of Hyperlipidemia Osteoarthritis with history right knee placement in July 2022. Morbid obesity, BMI 53.1 Monitor vital signs Monitor CBC Monitor CMP Continue telemetry monitoring Encourage use of incentive spirometer Aggressive bronchopulmonary hygiene Continue use of BiPAP as needed Strict I's and O's, daily Continue metoprolol Continue digoxin and amiodarone Continue Lasix IV Cefepime discontinued, started on Cipro by critical care Critical care following Cardiology following Possible transfer out of ICU in the morning Labs and medication were reviewed.. Continue same treatment. Continue with symptomatic treatment. Resume home medication. Monitor labs and vitals. DVT and GI prophylaxis. Further recommendations as per clinical course of the patient Dictation was produced using [employer] dictation software. please excuse any grammatical, word or spelling errors. Objective - Vital Signs Vital signs: Vital Signs Temp 98.2 F 10/18/23 08:00 Pulse 124 H 10/18/23 12:04 Resp 20 10/18/23 11:00 BP 90/63 10/16/23 07:00 Pulse Ox 93 L 10/18/23 11:00 FiO2 45 10/18/23 04:00 Intake & Output 10/17/23 10/18/23 10/18/23 18:59 06:59 18:59 Intake Total 1036 136 18 Output Total 2580 1590 900 Balance -1544 -2644 -882 Weight 145.1 kg 145.1 kg Intake: IV 36 136 18 Cefepime 2 gm In Sodium 100 Chloride 0.9% 100 ml @ 25 mls/hr IVPB Q12HR ANNA Rx #:[id number] Pressure bags 36 36 18 Intake, IV Titration 100 Amount Cefepime 2 gm In Sodium 100 Chloride 0.9% 100 ml @ 25 mls/hr IVPB Q12HR ANNA Rx #:[id number] Oral 900 Output: Urine 2580 1590 900 Other: Voiding Method Indwelling Catheter Indwelling Catheter Indwelling Catheter ABP, PAP, CO, CI - Last Documented Arterial Blood Pressure 123/75 - Labs CBC & Chem 7: 10/18/23 05:30 10/18/23 05:30 Labs: Abnormal Lab Results - Last 24 Hours (Table) 10/17/23 10/17/23 10/17/23 Range/Units 16:19 20:44 23:28 WBC (3.8-10.6) k/uL Carbon Dioxide (22-30) mmol/L BUN (7-17) mg/dL Creatinine (0.52-1.04) mg/dL Glucose (74-99) mg/dL POC Glucose (mg/dL) 163 H 163 H 154 H (70-110) mg/dL 10/18/23 10/18/23 10/18/23 Range/Units 05:30 05:30 05:31 WBC 11.0 H (3.8-10.6) k/uL Carbon Dioxide 32 H (22-30) mmol/L BUN 72 H (7-17) mg/dL Creatinine 1.15 H (0.52-1.04) mg/dL Glucose 158 H (74-99) mg/dL POC Glucose (mg/dL) 168 H (70-110) mg/dL 10/18/23 Range/Units 11:20 WBC (3.8-10.6) k/uL Carbon Dioxide (22-30) mmol/L BUN (7-17) mg/dL Creatinine (0.52-1.04) mg/dL Glucose (74-99) mg/dL POC Glucose (mg/dL) 152 H (70-110) mg/dL
--- NOTE | 2023-10-18 14:02 | P.PN ---
Subjective Progress Note Date: 10/18/23 Principal diagnosis: Acute hypoxic respiratory failure secondary to acute congestive heart failure with preserved ejection fraction and possible underlying pneumonia. 73-year-old female who presented to the emergency department on September 26, complaining of arrhythmias, and palpitations. The patient does have a history of hypertension, atrial fibrillation, hyperlipidemia, pulmonary embolism, and hypothyroidism. The patient apparently was having some lower extremity edema, shortness of breath, and orthopnea. She also had mild exertional dyspnea. The patient denied any chest pain or chest discomfort. She was seen by the ER physician, and admitted with a diagnosis of atrial fibrillation, CHF, and urinary tract infection. Today, a rapid response was called on this patient, and, R ICU charge nurse, who evaluated the patient, and thought the patient should come down to the intensive care unit, for further monitoring and management. She was given some IV Lasix, and placed on BiPAP, with settings of 16/6, and 100%. She was seen in the intensive care unit, room 255. She was sitting up in bed, with mild respiratory distress, on the BiPAP device. White count was 13.7, hemoglobin 14.5, hematocrit 44.4, and a normal platelet count. Sodium 135, potassium 3.9, chlorides 96, CO2 27, anion gap 12, BUN 37, and creatinine 1.26. N-terminal proBNP, on September 29, was 7020. The patient had chest x-rays on the and on the . Today's chest x-ray shows worsening pulmonary edema. On 10/12/2023, the patient is found to be short of breath. After doing signifi cant progress and being on room air oxygen, earlier last night, at around 10 PM, the patient became progressively more hypoxic. Initially she required 2 L and later on 5 L and subsequently she was placed on a BiPAP and she is currently on a BiPAP at a pressure of 16/6 cm water with an FiO2 of 45%. Her breathing is labored at this point in time. Note that the patient was being treated for the Cyst heart failure and fluid overload. She was being treated with Lasix. The patient was producing excellent urine output and she also had bilateral thoracentesis was further optimized her volume status and fluid balance. The patient denies having any chest pain. On examination, she has diminished breath sounds bilaterally along with some bibasilar crackles and breath sounds are slightly diminished on the right base compared to the left. Chest x-ray shows worsening in the interstitial infiltrates bilaterally and some limited patchy bibasilar opacities. No reported aspiration. The white cell count remains low at 7.3. Hemoglobin is at 13.1. BUN is 34 with a creatinine 1.24 and a sodium level is at 135. She is afebrile at this point in time. The patient has chronic atrial fibrillation and her current cardiac rhythm is sinus. On 10/13/2023, the patient is being seen for a follow-up. At this point in time, the patient is intubated on a mechanical ventilator. She is sedated on pr opofol. She was intubated yesterday because of an acute hypoxic respiratory failure and pulmonary edema. This morning, she was discussed with a rate of 24, tidal volume of 400, FiO2 is at 50% with a PEEP of 12. Chest x-ray shows improvement in the pulmonary edema compared to yesterday and a blood gas shows a pH of 7.52 with a pCO2 of 39 and pO2 of 120 and this was on FiO2 of 50%. The patient was taken off diuretics. Noted the patient was diuresed aggressively which is essentially pertinent acute kidney injury and the creatinine this morning is at 2.5 with a BUN of 54. Sodium levels of 136. Potassium levels at 4.7. The risk of 18.4 with a hemoglobin of 14.2. She was started on empiric antibiotic coverage with IV cefepime. Her cardiac rhythm is back in sinus and the patient is also undergoing related with Eliquis 5 mg by mouth twice a day. She remains on bronchodilators. The fluid balance over the past 24 hours as and possible 1.4 L. No fever. No chills. She is currently on no pressors. She'll be started on enteral feeding for nutritional support. Patient was reevaluated today on 10/14/2023, patient remains in the ICU, intubated and mechanically ventilated, she is on assist control rate of 24 tidal volume 400 FiO2 40% and PEEP of 10 however her ABG showed a pO2 of 118 pCO2 45 pH of 7.43, hence I cut down the PEEP from 10-8. Patient was initially admitted on 09/26 intubated on 10/12 and remains intubated. She was admitted mostly with congestive heart failure, atrial fibrillation and RVR, and she has a preserved ejection fraction. Chest x-ray continues to show evidence of congestive heart failure, underlying pneumonia is not entirely ruled out but felt to be less likely her pleural effusion was clearly transudative in nature consistent with CHF cytology on the fluid from the pleural effusion is also negative for underlying malignancy it patient continues to have leukocytosis with WBC of 24.6 hemoglobin 15.7, basic metabolic profile is normal however BUN is 62 creatinine 2.39, slightly worse compared to baseline of 1.10 few days ago, and diuretics we re placed temporarily on hold BNP level is over 9000. Patient remains on norepinephrine at 0.0; 0/m on propofol at 30 mcg/kg/m also on 0.9 normal saline at 100 mL per hour. Patient remains in atrial fibrillation with RVR, she is on Lopressor at 50 twice a day she is also on amiodarone orally cardiology cut down the Lopressor down to 12.5 twice a day because of low blood pressure. Patient is intermittently receiving Lasix her urine output seems to be about 50 mL per hour. Antibiotics [place] patient remains on cefepime. Patient was reevaluated today on 10/15/23, remains in the ICU, intubated and mechanically ventilated. Patient remains on assist control rate of 24, FiO2 40% tidal volume 400 and PEEP of 8 ABG showed a pO2 of 84 pCO2 46 pH of 7.43, patient remains on propofol at 25 mcg/kg/m. Patient is also on cefepime for her E. coli infection in the urine she is also on Lasix 40 mg IV push twice a day with definite improvement in her renal status today. Continues to have relatively high CVP of 13. Creatinine is down to 1.58 today, and her IV fluid was cut down to KVO today. Chest x-ray is showing slight improvement in her fluid status. W see count is 14.7 definitely improved hemoglobin 12.7 basic metabolic profile is normal renal profile is improving with BUN 62 creatinine down to 1.58 from 2.39 yesterday Patient was reevaluated today on 10/16/23, remains in the ICU, intubated and mechanically ventilated. Patient is on assist control rate of 24 tidal volume 400 FiO2 40% and PEEP of 8. ABG showed a pO2 of 85 pCO2 48 pH of 7.44 patient remains on propofol at 25 mcg/kg/m, IV fluid is KVO, patient is easing vital HPI at 57 mL/h she has good urine output and continues to respond well to Lasix 40 mg IV push every 12 hours, renal functioning is improving, remains on cefepime for UTI. And she is also on eliquis. Echocardiogram showed mild LV dysfunction. Nonetheless the patient is doing much better with diuresis for the last few days. Chest x-ray is showing slight improvement, continues to have small bilateral pleural effusions. No need for thoracentesis at this point. After reviewing all of this, I have recommended that the patient goes on it and CPAP after stopping her propofol, and if tolerated may even consider weaning and extubation of this patient. W see count today is 11.3 hemoglobin is 12.3. Basic metabolic profile is normal, creatinine is steadily improving is down to 1.34 today. And blood sugar is 184 Reevaluated today on 10/17, patient remains in the ICU, remains on BiPAP, she is now on 12/45%, and the plan is to transition from BiPAP to a high flow nasal cannula. Patient x-ray is showing slight worsening and worsening pulmonary edema and some recommending to increase her Lasix from 40 mg twice a day to 60 mg twice a day. Her IV fluids remains at KVO. Her overall clinical status remains marginal at best. Again there is worsening chest x-ray. Labs are basically unremarkable with improvement in her creatinine down to 1.13 in spite of aggressive diuresis. Looking at the fluid status, patient is -2 L in the last 24 hours Reevaluated today on 10/18/23, patient remains in the ICU, she is now on 4 L nasal cannula and O2 saturations running between 93 up to 97%. Patient seems to be more alert today, not confused, feeling better clinically, and she denies any shortness of breath. Chest x-ray showed significant improvement in her bilateral interstitial edema nonetheless she continues to have some left pleural effusion not large enough to consider thoracentesis again at this point. Yesterday I have increased her Lasix to 60 mg twice a day, and his chest x-ray is definitely showing improvement. Patient is negative fluid balance about 5 L in the last 2 days. And she continues to diurese, renal functioning is maintaining with creatinine of 1.15 today, steadily improving over the last 5 days in spite of aggressive diuresis. Her metoprolol dose was increased as well as her amiodarone dose increased by cardiology on the case Objective - Vital Signs Vital signs: Vital Signs Temp 98.2 F 10/18/23 08:00 Pulse 121 H 10/18/23 13:00 Resp 22 10/18/23 13:00 BP 90/63 10/16/23 07:00 Pulse Ox 93 L 10/18/23 13:00 FiO2 45 10/18/23 04:00 Intake & Output 10/17/23 10/18/23 10/18/23 18:59 06:59 18:59 Intake Total 1036 136 18 Output Total 2580 1590 900 Balance -5558 -3074 -882 Weight 145.1 kg 145.1 kg Intake: IV 36 136 18 Cefepime 2 gm In Sodium 100 Chloride 0.9% 100 ml @ 25 mls/hr IVPB Q12HR ANNA Rx #:[id number] Pressure bags 36 36 18 Intake, IV Titration 100 Amount Cefepime 2 gm In Sodium 100 Chloride 0.9% 100 ml @ 25 mls/hr IVPB Q12HR ANNA Rx #:[id number] Oral 900 Output: Urine 2580 1590 900 Other: Voiding Method Indwelling Catheter Indwelling Catheter Indwelling Catheter ABP, PAP, CO, CI - Last Documented Arterial Blood Pressure 134/77 - Exam Physical Exam: Revealed 73-year-old female obese in no distress , on 4 L nasal cannula Head: Atraumatic normocephalic. HEENT:[Neck is supple.] [No neck masses.] [No thyromegaly.] [No JVD.] Chest: [Symmetrical chest expansion diminished breath sounds at the bases no crackles or rhonchi or wheezes Cardiac Exam: Irregular irregular rhythm. [Normal S1 and S2, no S3 gallop, 2/6 systolic murmur thought the precordium. Abdomen: [Soft, nontender, no megaly, no rebound, no guarding, normal bowel sounds.] Extremities: [No clubbing, trace of bipedal edema, no cyanosis.] Good distal pulses bilaterally. Neurological Exam: Awake, follows simple instructions, seems to be generally weak. Psychiatric: Normal mood, affect and normal mental status examination Skin: No rashes - Labs CBC & Chem 7: 10/18/23 05:30 10/18/23 05:30 Labs: Abnormal Lab Results - Last 24 Hours (Table) 10/17/23 10/17/23 10/17/23 Range/Units 16:19 20:44 23:28 WBC (3.8-10.6) k/uL Carbon Dioxide (22-30) mmol/L BUN (7-17) mg/dL Creatinine (0.52-1.04) mg/dL Glucose (74-99) mg/dL POC Glucose (mg/dL) 163 H 163 H 154 H (70-110) mg/dL 10/18/23 10/18/23 10/18/23 Range/Units 05:30 05:30 05:31 WBC 11.0 H (3.8-10.6) k/uL Carbon Dioxide 32 H (22-30) mmol/L BUN 72 H (7-17) mg/dL Creatinine 1.15 H (0.52-1.04) mg/dL Glucose 158 H (74-99) mg/dL POC Glucose (mg/dL) 168 H (70-110) mg/dL 10/18/23 Range/Units 11:20 WBC (3.8-10.6) k/uL Carbon Dioxide (22-30) mmol/L BUN (7-17) mg/dL Creatinine (0.52-1.04) mg/dL Glucose (74-99) mg/dL POC Glucose (mg/dL) 152 H (70-110) mg/dL Assessment and Plan Assessment: Impression: Acute hypoxic respiratory failure secondary to acute systolic congestive heart failure, ejection fraction was noted to be 45% on her echocardiogram Bilateral pleural effusions/transudative in nature. Based on protein and LDH levels in the pleural effusion. Patient is status post bilateral thoracentesis Chronic atrial fibrillation with RVR, being addressed by cardiology on amiodaro ne, which is also on eliquis, and metoprolol E. coli urinary tract infection, remains on antibiotics patient had E. coli, sensitive to all antibiotics, patient is on cefepime Benign essential hypertension Dyslipidemia History of pulmonary embolism Hypothyroidism Degenerative joint disease Possible underlying pneumonia but felt to be less likely based on the clinical history Recommendation: Continue diuretics, Lasix 60 mg twice a day Continue antibiotics, considering the patient had E. coli in the urine and sensitivities were noted, I will transition her cefepime to oral Cipro 500 twice a day Ambulate patient out of bed to a bedside chair and possibly in the hallway. Continue anticoagulation therapy/eliquis Continue amiodarone and beta blockers, that is being addressed by cardiology. Continue to monitor closely renal profile Continue bronchodilators and steroids Continue to monitor in the ICU for the next 24 hours and possibly transferred to a cardiac floor in the next 24 to We will continue to follow Time with Patient: Less than 30
[2023-10-18] MEDS: NOREPINEPHRINE 8 MG in SODIUM CHLORIDE 0.9% 250 ML IV SCH (15:38)
[2023-10-18 16:56] LABS: Glucose,Whole Blood 148 mg/dL (70-110)
[2023-10-18 20:10] LABS: Glucose,Whole Blood 180 mg/dL (70-110)
[2023-10-18] MEDS: ATORVASTATIN 80 MG TAB PO SCH (20:56)
[2023-10-18] MEDS: CIPROFLOXACIN HCL 500 MG TAB PO SCH (20:57)
[2023-10-18] MEDS: LORazepam 2 MG/ML INJ IV PRN (21:12)
[2023-10-19] MEDS: methylPREDNISolone SOD SUCCI 40 MG/ML 1 ML VIAL IV SCH ×3 (00:08→16:01)
[2023-10-19] MEDS: IPRATROPIUM-ALBUTEROL 3 ML NEB INHALATION SCH ×6 (00:36→21:16)
[2023-10-19 04:59] LABS: Basophils % (A) 0 %; Eosinophils % (A) 0 %; HCT 42.3 % (34.0-46.0); HGB 13.6 gm/dL (11.4-16.0); Hypochromasia Slight; Lymphocytes # (A) 0.5 k/uL (1.0-4.8); Lymphocytes % (A) 4 %; MCH 31.9 pg (25.0-35.0); MCHC 32.1 g/dL (31.0-37.0); MCV 99.3 fL (80.0-100.0); Mean Platelet Volume 7.9; Monocytes # (A) 0.6 k/uL (0-1.0); Monocytes % (A) 4 %; Neutrophils # (A) 11.6 k/uL (1.3-7.7); Neutrophils % (A) 91 %; Platelet Count 250 k/uL (150-450); RBC 4.26 m/uL (3.80-5.40); RDW 13.8 % (11.5-15.5); WBC 12.8 k/uL (3.8-10.6)
[2023-10-19 05:24] LABS: ALT 149 U/L (4-34); AST 52 U/L (14-36); African American GFR (CKD) 55 (>60 ml/min/1.73 sqM); Albumin 3.1 g/dL (3.5-5.0); Alkaline Phosphatase 80 U/L (38-126); Anion Gap 3 mmol/L; Blood Urea Nitrogen 68 mg/dL (7-17); Calcium 8.5 mg/dL (8.4-10.2); Carbon Dioxide 35 mmol/L (22-30); Chloride 98 mmol/L (98-107); Glucose 155 mg/dL (74-99); Magnesium 2.4 mg/dL (1.6-2.3); Non-African American GFR(CKD) 48 (>60 ml/min/1.73 sqM); Potassium 4.5 mmol/L (3.5-5.1); Sodium 136 mmol/L (137-145); Total Bilirubin 1.1 mg/dL (0.2-1.3); Total Protein 5.5 g/dL (6.3-8.2)
[2023-10-19] MEDS: LEVOTHYROXINE 88 MCG TAB PO SCH (06:13)
[2023-10-19 06:27] LABS: Glucose,Whole Blood 152 mg/dL (70-110)
[2023-10-19] MEDS: INSULIN ASPART (NovoLOG) 100 UNIT/ML VIAL SQ SCH ×4 (06:51→20:28)
[2023-10-19] MEDS: MAGNESIUM OXIDE 400 MG TAB PO SCH (08:08)
[2023-10-19] MEDS: PANTOPRAZOLE 40 MG/10 ML VIAL IVP SCH (08:22)
[2023-10-19] MEDS: FUROSEMIDE 10 MG/ML 10 ML VIAL IV SCH ×2 (08:23→20:09)
[2023-10-19] MEDS: METOPROLOL TARTRATE 50 MG TAB PO SCH ×2 (08:29→20:08)
[2023-10-19] MEDS: AMIODARONE 200 MG TAB PO SCH ×2 (08:29→20:05)
[2023-10-19] MEDS: CIPROFLOXACIN HCL 500 MG TAB PO SCH ×2 (08:29→20:51)
[2023-10-19] MEDS: guaiFENesin 600 MG TABLET.ER PO SCH ×2 (08:29→20:05)
[2023-10-19] MEDS: polyethylene glycoL 3350 17 GM POWD.PACK PO SCH (08:30)
[2023-10-19] MEDS: DIGOXIN 250 MCG/ML 2 ML AMP IVP SCH (08:30)
[2023-10-19] MEDS: DOCUSATE 100 MG CAP PO SCH ×2 (08:30→20:05)
[2023-10-19] MEDS: APIXABAN 5 MG TAB PO SCH ×2 (08:33→20:05)
--- NOTE | 2023-10-19 09:13 | P.PN ---
Subjective Progress Note Date: 10/19/23 Principal diagnosis: Persistent atrial fibrillation The patient is a 73-year-old female patient with history of heart failure as well as atrial fibrillation as well as hypertension and dyslipidemia and renal failure was admitted to the hospital with acute hypoxic respiratory failure. Initially she was started on diuretics for heart failure subsequently she developed renal failure and the diuretics was a systolic. Currently she is intubated and she is on mechanical ventilation for possible underlying pneumonia/sepsis and currently she is on norepinephrine 10/14/2023 The patient was seen and evaluated this morning. The patient remains intubated on mechanical ventilation. She remains hypotensive requiring norepinephrine. She is on amiodarone orally. She remains in nature fibrillation with overall heart rate around 120 bpm. I'm going to add a small dose of beta jorge alberto with metoprolol tartrate 12.5 mg by mouth twice a day to the current medical regimen. Continue oral anticoagulation. She is in process of having an echocardiogram later on today. The examination is remarkable for irregular rhythm with a systolic murmur at the right and left upper sternal border and bilateral upper and lower extremities edema October [id number] The patient was seen and evaluated this morning. She remains in atrial fibrillation with overall uncontrolled heart rate in spite of increasing the dose of metoprolol. She is also on amiodarone. I'm going to add digoxin to the current medical regimen. She does have edema in the lower extremities and she was started on Lasix IV. Her kidney function is slightly abnormal. The examination is remarkable for irregular heart rhythm with diminished breathing sounds bilaterally and bilateral lower extremities edema 10/16/2023 The patient was seen and evaluated this morning. She is awake. He potentially can be extubated later on today. Hemodynamically stable. The heart rate has somewhat improved continues to be in the 100 bpm. I'm going to increase the dose of beta jorge alberto with metoprolol to 50 mg by mouth twice a day. Continue digoxin and continue amiodarone and continue oral anticoagulation. She is having edema in the upper and lower extremity is and she is on Lasix IV which we will continue. October 172022 The patient was seen and evaluated this morning. She was extubated yesterday. Hemodynamically she is stable beside heart rate around 120 beats per minutes. Pressure is a stable. For that reason I'm going to increase the dose of metoprolol to 50 mg by mouth 3 times a day. She still have upper and lower extremities edema and she is on Lasix IV and has been making urine. She is on oral anticoagulation. She still on oxygen at 3 L at this point. The chest x- ray continues to show finding of bilateral infiltrate/heart failure 10/18/2023 The patient was seen and evaluated this morning. She was extubated 48 hours ago. Hemodynamically she is stable beside still tachycardia with the atrial fibrillation. She is on anticoagulation. I'm going to increase the dose of metoprolol and increase dose of amiodarone as well. She still hypoxic requiring oxygen. She started having upper and lower extremity is edema and she is on Lasix IV. The creatinine remains stable 10/19/2023 The patient was seen and evaluated this morning. She still tachycardic in atrial fibrillation. I'm going to increase the dose of amiodarone and metoprolol [place] she is on oral anticoagulation which is still congested and currently she is on Lasix IV. The creatinine remains stable. Examination is re markable for severe eye lateral lower extremity is edema Assessment Heart failure with preserved ejection fraction Pneumonia/sepsis Acute hypoxic respiratory failure secondary to the above Acute on chronic renal failure Atrial fibrillation with uncontrolled heart rate Multiple comorbid conditions Plan Continue the current medical regimen Increase the dose of metoprolol Increase the dose of amiodarone Continue Lasix IV Follow-up with the patient Objective - Vital Signs Vital signs: Vital Signs Temp 98.0 F 10/19/23 08:00 Pulse 123 H 10/19/23 08:00 Resp 24 10/19/23 08:00 BP 90/63 10/16/23 07:00 Pulse Ox 93 L 10/19/23 08:00 FiO2 4 10/19/23 08:00 Intake & Output 10/18/23 10/19/23 10/19/23 18:59 06:59 18:59 Intake Total 39 283 6 Output Total 1350 1400 275 Balance -1311 -4917 -269 Weight 145.1 kg 144.3 kg Intake: IV 39 33 6 Pressure bags 39 33 6 Oral 250 Output: Urine 1350 1400 275 Other: Voiding Method Indwelling Catheter Indwelling Catheter ABP, PAP, CO, CI - Last Documented Arterial Blood Pressure 123/67 - Labs CBC & Chem 7: 10/19/23 04:30 10/19/23 04:30 Labs: Abnormal Lab Results - Last 24 Hours (Table) 10/18/23 10/18/23 10/18/23 Range/Units 11:20 16:55 20:09 WBC (3.8-10.6) k/uL Neutrophils # (1.3-7.7) k/uL Lymphocytes # (1.0-4.8) k/uL Sodium (137-145) mmol/L Carbon Dioxide (22-30) mmol/L BUN (7-17) mg/dL Creatinine (0.52-1.04) mg/dL Glucose (74-99) mg/dL POC Glucose (mg/dL) 152 H 148 H 180 H (70-110) mg/dL Magnesium (1.6-2.3) mg/dL AST (14-36) U/L ALT (4-34) U/L Total Protein (6.3-8.2) g/dL Albumin (3.5-5.0) g/dL 10/19/23 10/19/23 10/19/23 Range/Units 04:30 04:30 06:25 WBC 12.8 H (3.8-10.6) k/uL Neutrophils # 11.6 H (1.3-7.7) k/uL Lymphocytes # 0.5 L (1.0-4.8) k/uL Sodium 136 L (137-145) mmol/L Carbon Dioxide 35 H (22-30) mmol/L BUN 68 H (7-17) mg/dL Creatinine 1.13 H (0.52-1.04) mg/dL Glucose 155 H (74-99) mg/dL POC Glucose (mg/dL) 152 H (70-110) mg/dL Magnesium 2.4 H (1.6-2.3) mg/dL AST 52 H (14-36) U/L ALT 149 H (4-34) U/L Total Protein 5.5 L (6.3-8.2) g/dL Albumin 3.1 L (3.5-5.0) g/dL
[2023-10-19] MEDS ORDERED: METOPROLOL TARTRATE 50 MG TAB PO STA (09:39)
[2023-10-19] MEDS ORDERED: AMIODARONE 200 MG TAB PO STA (09:40)
[2023-10-19 11:54] LABS: Glucose,Whole Blood 166 mg/dL (70-110)
--- NOTE | 2023-10-19 14:03 | P.PN ---
Subjective Progress Note Date: 10/19/23 Principal diagnosis: Acute hypoxic respiratory failure secondary to acute congestive heart failure with preserved ejection fraction and possible underlying pneumonia. 73-year-old female who presented to the emergency department on September 26, complaining of arrhythmias, and palpitations. The patient does have a history of hypertension, atrial fibrillation, hyperlipidemia, pulmonary embolism, and hypothyroidism. The patient apparently was having some lower extremity edema, shortness of breath, and orthopnea. She also had mild exertional dyspnea. The patient denied any chest pain or chest discomfort. She was seen by the ER physician, and admitted with a diagnosis of atrial fibrillation, CHF, and urinary tract infection. Today, a rapid response was called on this patient, and, R ICU charge nurse, who evaluated the patient, and thought the patient should come down to the intensive care unit, for further monitoring and management. She was given some IV Lasix, and placed on BiPAP, with settings of 16/6, and 100%. She was seen in the intensive care unit, room 255. She was sitting up in bed, with mild respiratory distress, on the BiPAP device. White count was 13.7, hemoglobin 14.5, hematocrit 44.4, and a normal platelet count. Sodium 135, potassium 3.9, chlorides 96, CO2 27, anion gap 12, BUN 37, and creatinine 1.26. N-terminal proBNP, on September 29, was 7020. The patient had chest x-rays on the and on the . Today's chest x-ray shows worsening pulmonary edema. On 10/12/2023, the patient is found to be short of breath. After doing signifi cant progress and being on room air oxygen, earlier last night, at around 10 PM, the patient became progressively more hypoxic. Initially she required 2 L and later on 5 L and subsequently she was placed on a BiPAP and she is currently on a BiPAP at a pressure of 16/6 cm water with an FiO2 of 45%. Her breathing is labored at this point in time. Note that the patient was being treated for the Cyst heart failure and fluid overload. She was being treated with Lasix. The patient was producing excellent urine output and she also had bilateral thoracentesis was further optimized her volume status and fluid balance. The patient denies having any chest pain. On examination, she has diminished breath sounds bilaterally along with some bibasilar crackles and breath sounds are slightly diminished on the right base compared to the left. Chest x-ray shows worsening in the interstitial infiltrates bilaterally and some limited patchy bibasilar opacities. No reported aspiration. The white cell count remains low at 7.3. Hemoglobin is at 13.1. BUN is 34 with a creatinine 1.24 and a sodium level is at 135. She is afebrile at this point in time. The patient has chronic atrial fibrillation and her current cardiac rhythm is sinus. On 10/13/2023, the patient is being seen for a follow-up. At this point in time, the patient is intubated on a mechanical ventilator. She is sedated on pr opofol. She was intubated yesterday because of an acute hypoxic respiratory failure and pulmonary edema. This morning, she was discussed with a rate of 24, tidal volume of 400, FiO2 is at 50% with a PEEP of 12. Chest x-ray shows improvement in the pulmonary edema compared to yesterday and a blood gas shows a pH of 7.52 with a pCO2 of 39 and pO2 of 120 and this was on FiO2 of 50%. The patient was taken off diuretics. Noted the patient was diuresed aggressively which is essentially pertinent acute kidney injury and the creatinine this morning is at 2.5 with a BUN of 54. Sodium levels of 136. Potassium levels at 4.7. The risk of 18.4 with a hemoglobin of 14.2. She was started on empiric antibiotic coverage with IV cefepime. Her cardiac rhythm is back in sinus and the patient is also undergoing related with Eliquis 5 mg by mouth twice a day. She remains on bronchodilators. The fluid balance over the past 24 hours as and possible 1.4 L. No fever. No chills. She is currently on no pressors. She'll be started on enteral feeding for nutritional support. Patient was reevaluated today on 10/14/2023, patient remains in the ICU, intubated and mechanically ventilated, she is on assist control rate of 24 tidal volume 400 FiO2 40% and PEEP of 10 however her ABG showed a pO2 of 118 pCO2 45 pH of 7.43, hence I cut down the PEEP from 10-8. Patient was initially admitted on 09/26 intubated on 10/12 and remains intubated. She was admitted mostly with congestive heart failure, atrial fibrillation and RVR, and she has a preserved ejection fraction. Chest x-ray continues to show evidence of congestive heart failure, underlying pneumonia is not entirely ruled out but felt to be less likely her pleural effusion was clearly transudative in nature consistent with CHF cytology on the fluid from the pleural effusion is also negative for underlying malignancy it patient continues to have leukocytosis with WBC of 24.6 hemoglobin 15.7, basic metabolic profile is normal however BUN is 62 creatinine 2.39, slightly worse compared to baseline of 1.10 few days ago, and diuretics we re placed temporarily on hold BNP level is over 9000. Patient remains on norepinephrine at 0.0; 0/m on propofol at 30 mcg/kg/m also on 0.9 normal saline at 100 mL per hour. Patient remains in atrial fibrillation with RVR, she is on Lopressor at 50 twice a day she is also on amiodarone orally cardiology cut down the Lopressor down to 12.5 twice a day because of low blood pressure. Patient is intermittently receiving Lasix her urine output seems to be about 50 mL per hour. Antibiotics [place] patient remains on cefepime. Patient was reevaluated today on 10/15/23, remains in the ICU, intubated and mechanically ventilated. Patient remains on assist control rate of 24, FiO2 40% tidal volume 400 and PEEP of 8 ABG showed a pO2 of 84 pCO2 46 pH of 7.43, patient remains on propofol at 25 mcg/kg/m. Patient is also on cefepime for her E. coli infection in the urine she is also on Lasix 40 mg IV push twice a day with definite improvement in her renal status today. Continues to have relatively high CVP of 13. Creatinine is down to 1.58 today, and her IV fluid was cut down to KVO today. Chest x-ray is showing slight improvement in her fluid status. W see count is 14.7 definitely improved hemoglobin 12.7 basic metabolic profile is normal renal profile is improving with BUN 62 creatinine down to 1.58 from 2.39 yesterday Patient was reevaluated today on 10/16/23, remains in the ICU, intubated and mechanically ventilated. Patient is on assist control rate of 24 tidal volume 400 FiO2 40% and PEEP of 8. ABG showed a pO2 of 85 pCO2 48 pH of 7.44 patient remains on propofol at 25 mcg/kg/m, IV fluid is KVO, patient is easing vital HPI at 57 mL/h she has good urine output and continues to respond well to Lasix 40 mg IV push every 12 hours, renal functioning is improving, remains on cefepime for UTI. And she is also on eliquis. Echocardiogram showed mild LV dysfunction. Nonetheless the patient is doing much better with diuresis for the last few days. Chest x-ray is showing slight improvement, continues to have small bilateral pleural effusions. No need for thoracentesis at this point. After reviewing all of this, I have recommended that the patient goes on it and CPAP after stopping her propofol, and if tolerated may even consider weaning and extubation of this patient. W see count today is 11.3 hemoglobin is 12.3. Basic metabolic profile is normal, creatinine is steadily improving is down to 1.34 today. And blood sugar is 184 Reevaluated today on 10/17, patient remains in the ICU, remains on BiPAP, she is now on 12/45%, and the plan is to transition from BiPAP to a high flow nasal cannula. Patient x-ray is showing slight worsening and worsening pulmonary edema and some recommending to increase her Lasix from 40 mg twice a day to 60 mg twice a day. Her IV fluids remains at KVO. Her overall clinical status remains marginal at best. Again there is worsening chest x-ray. Labs are basically unremarkable with improvement in her creatinine down to 1.13 in spite of aggressive diuresis. Looking at the fluid status, patient is -2 L in the last 24 hours Reevaluated today on 10/18/23, patient remains in the ICU, she is now on 4 L nasal cannula and O2 saturations running between 93 up to 97%. Patient seems to be more alert today, not confused, feeling better clinically, and she denies any shortness of breath. Chest x-ray showed significant improvement in her bilateral interstitial edema nonetheless she continues to have some left pleural effusion not large enough to consider thoracentesis again at this point. Yesterday I have increased her Lasix to 60 mg twice a day, and his chest x-ray is definitely showing improvement. Patient is negative fluid balance about 5 L in the last 2 days. And she continues to diurese, renal functioning is maintaining with creatinine of 1.15 today, steadily improving over the last 5 days in spite of aggressive diuresis. Her metoprolol dose was increased as well as her amiodarone dose increased by cardiology on the case Reevaluated today on 10/19/23, patient remains in, she is now on 4 L nasal debora rogelio, she seems to be tachycardic, and her atrial fibrillation is still not fully controlled, patient has been seen by cardiology and her metoprolol was increased to 150 twice a day and amiodarone was increased to 400 twice a day. Patient is on 4 L but at night she goes on 10/30/45%. Does not seem to be in any distress, she is basically asymptomatic. IV fluids at KVO. And the patient remains on diuretics. Renal function continues to improve creatinine is 1.13 basic metabolic profile is relatively normal bicarb is 35 BUN is 68 WBC 12.8 hemoglobin 13.6 chest x-ray from yesterday showed improved aeration of the lungs has the patient had no change in her diuretics dose Objective - Vital Signs Vital signs: Vital Signs Temp 97.9 F 10/19/23 12:00 Pulse 122 H 10/19/23 13:00 Resp 27 H 10/19/23 13:00 BP 110/94 10/19/23 10:00 Pulse Ox 93 L 10/19/23 13:00 FiO2 4 10/19/23 08:00 Intake & Output 10/18/23 10/19/23 10/19/23 18:59 06:59 18:59 Intake Total 39 283 18 Output Total 1350 1400 1500 Balance -1311 1117 -1482 Weight 145.1 kg 144.3 kg Intake: IV 39 33 18 Pressure bags 39 33 18 Oral 250 Output: Urine 1350 1400 1500 Other: Voiding Method Indwelling Catheter Indwelling Catheter Indwelling Catheter ABP, PAP, CO, CI - Last Documented Arterial Blood Pressure 125/71 - Exam Physical Exam: Revealed 73-year-old female obese in no distress , on 4 L nasal cannula Head: Atraumatic normocephalic. HEENT:[Neck is supple.] [No neck masses.] [No thyromegaly.] [No JVD.] Chest: [Symmetrical chest expansion diminished breath sounds at the bases no crackles or rhonchi or wheezes Cardiac Exam: Tachycardic Irregular irregular rhythm. [Normal S1 and S2, no S3 gallop, 2/6 systolic murmur thought the precordium. Abdomen: [Soft, nontender, no megaly, no rebound, no guarding, normal bowel sounds.] Extremities: [No clubbing, trace of bipedal edema, no cyanosis.] Good distal pulses bilaterally. Neurological Exam: Awake, follows simple instructions, seems to be generally weak. Psychiatric: Normal mood, affect and normal mental status examination Skin: No rashes - Labs CBC & Chem 7: 10/19/23 04:30 10/19/23 04:30 Labs: Abnormal Lab Results - Last 24 Hours (Table) 10/18/23 10/18/23 10/19/23 Range/Units 16:55 20:09 04:30 WBC 12.8 H (3.8-10.6) k/uL Neutrophils # 11.6 H (1.3-7.7) k/uL Lymphocytes # 0.5 L (1.0-4.8) k/uL Sodium (137-145) mmol/L Carbon Dioxide (22-30) mmol/L BUN (7-17) mg/dL Creatinine (0.52-1.04) mg/dL Glucose (74-99) mg/dL POC Glucose (mg/dL) 148 H 180 H (70-110) mg/dL Magnesium (1.6-2.3) mg/dL AST (14-36) U/L ALT (4-34) U/L Total Protein (6.3-8.2) g/dL Albumin (3.5-5.0) g/dL 10/19/23 10/19/23 10/19/23 Range/Units 04:30 06:25 11:52 WBC (3.8-10.6) k/uL Neutrophils # (1.3-7.7) k/uL Lymphocytes # (1.0-4.8) k/uL Sodium 136 L (137-145) mmol/L Carbon Dioxide 35 H (22-30) mmol/L BUN 68 H (7-17) mg/dL Creatinine 1.13 H (0.52-1.04) mg/dL Glucose 155 H (74-99) mg/dL POC Glucose (mg/dL) 152 H 166 H (70-110) mg/dL Magnesium 2.4 H (1.6-2.3) mg/dL AST 52 H (14-36) U/L ALT 149 H (4-34) U/L Total Protein 5.5 L (6.3-8.2) g/dL Albumin 3.1 L (3.5-5.0) g/dL Assessment and Plan Assessment: Impression: Acute hypoxic respiratory failure secondary to acute systolic congestive heart failure, ejection fraction was noted to be 45% on her echocardiogram Bilateral pleural effusions/transudative in nature. Based on protein and LDH levels in the pleural effusion. Patient is status post bilateral thoracentesis Chronic atrial fibrillation with RVR, being addressed by cardiology on amiodarone, and metoprolol, both doses have been increased which is also on eliquis, E. coli urinary tract infection, remains on antibiotics patient had E. coli, sensitive to all antibiotics, patient is on ciprofloxacin orally, changed from cefepime Benign essential hypertension Dyslipidemia History of pulmonary embolism Hypothyroidism Degenerative joint disease Possible underlying pneumonia but felt to be less likely based on the clinical history Recommendation: Continue diuretics, Lasix 60 mg twice a day Continue antibiotics, ciprofloxacin 500 twice a day Ambulate patient out of bed to a bedside chair and possibly in the hallway. Continue anticoagulation therapy/eliquis Continue amiodarone and beta blockers, both were increased by cardiology to control her atrial fibrillation/RVR Continue to monitor closely renal profile Continue bronchodilators and steroids We'll continue to monitor in ICU for next 24 hours. We will continue to follow Time with Patient: Less than 30
--- NOTE | 2023-10-19 14:47 | P.PN ---
Subjective Progress Note Date: 10/19/23 This is a 73-year-old female with past medical history significant for atrial fibrillation, PE, status post EKOS 02/2022, hypertension, hypothyroidism admitted with atrial fibrillation with RVR and multiple other medical issues.Evaluated and treated by cardiology. Presented to the hospital with complaints of heart palpitations, hypertension , shortness of breath 1 week.Positive orthopnea , reports sleeping sitting up in a recliner as well as living downstairs in her home to avoid climbing stairs. Cardizem drip initiated, rate improving. Cardiology consult in place. Troponins negative 3 , proBNP pending .EKG rate atrial fibrillation with RVR heart rate 132 . Echo reported normal LV function, mild pulmonary hypertension, moderate mitral and moderate tricuspid regurgitation .Chest x-ray no acute pulmonary process. UA reports positive nitrates, many bacteria, small leukocytes, urine culture pending. 09/30/2023 recently placed on 2 L nasal cannula, then increased to 4 L, maintaining O2 sats in the low 90s .complains of mild increased shortness of breath, which she reports started actually during the night. She has been on Lasix IV push every 12 hours, 24-hour I&O reflecting a negative fluid balance. Renal function mildly worsened, BUN 37, creatinine 1.26. Sodium 125 .Maintained on Rocephin for acute UTI. Afebrile, WBC 13.7. Blood sugars controlled. 10/01/23 yesterday developed worsening pulmonary edema, transfer to ICU. Chest x-ray at that time reported worsening of large perihilar consolidation noted greater on the right, pulmonary edema versus diffuse pneumonia. Received additional Lasix IV push, frequency increased yesterday diuresed well with 24- hour I&O reflecting a negative fluid balance. Maintained on BiPAP throughout the night, placed on 13 L nasal cannula to facilitate patient's diet intake this morning. Chest x-ray repeated this morning reporting improving bilateral areas of consolidation. Telemetry sinus rhythm, continues on Cardizem drip, t achycardic with heart rates in the 130s to 140s. Denies chest pain, palpitations. Afebrile, normal WBC. BUN 37, creatinine 1.30. Blood sugars controlled. 10/07/23 used BiPAP overnight, currently maintaining O2 sats in the 90s on 6 L nasal cannula. Chest x-ray reported bilateral pleural effusions, chest ultrasound reported right pleural effusion 6.8 cm, left pleural effusion 7.5 cm with both marked for possible thoracentesis. Diuresing on Lasix IV push with 24-hour I&O reflecting a negative fluid balance, but continues to have significant lower extremity edema. Telemetry atrial fibrillation with heart rates up to 120s. Reports palpitations, no chest pain. Evaluated by cardiology, discussing RICO with cardioversion. 10/08/23 Eliquis on hold. status post right thoracentesis with 1200 MLS turbid pleural drainage aspirated. Tolerated procedure well. Postprocedure x-ray reported no pneumothorax, bilateral lower lobe infiltrate and small left effusion. Using BiPAP at night. Currently seem on Lasix IV push with 24-hour I&O reflecting a negative fluid balance. Telemetry atrial fibrillation with heart rates ranging from 90 to 110s. Maintaining O2 in the high 90s on 4-5 L nasal cannula. Bicarb 34, BUN 41, creatinine 1.03. 10/09/2023 chest x-ray reporting bilateral lower lobe infiltrate and small left effusion/no sizable pleural effusion on the right/no pneumothorax. Status post left thoracentesis this morning with 550 MLS turbid pleural drainage aspirated. Tolerated procedure well. Postprocedure chest x-ray reported no pneumothorax. Maintained on oral antiarrhythmics ,telemetry reporting atrial fibrillation. Cardioversion pending. Afebrile, normal WBC. Continues diuresing well on Lasix IV push with 24-hour I&O reflecting a negative fluid balance. sodium 136, potassium 3.8, bicarb 37, BUN 38, creatinine 0.97. Maintaining O2 sats in the 90s on 3 L nasal cannula. 10/10/2023 Eliquis resumed yesterday after thoracentesis. Pleural fluid Cytology pending . Telemetry atrial fibrillation, heart rate better controlled today on oral amiodarone, metoprolol, Cardizem. Cardioversion pending. BiPAP throughout the night. Denies chest pain, palpitations or shortness of breath. Maintaining O2 sats in the 90s on 2 L nasal cannula. Continues diuresing well on Lasix IV push with 24-hour I&O reflecting a negative fluid balance. Afebrile, normal WBC. Potassium 3.6, receiving replacement. BUN 36, creatinine 1.1 10/11/2023 BiPAP for short while during the night. Currently maintaining O2 sat in the 90s on room air. Continues diuresing well on Lasix IV push with 24-hour I&O reflecting a negative fluid balance. BUN 34, creatinine 1.24. Pleural fluid cytology pending. Cardizem discontinued, continues on amiodarone with metoprolol increased, A. fib controlled. Afebrile, normal WBC. Reports she ambulated yesterday, tolerated exertion well, O2 sat on room air after ambulation 95%. 10/14/2023 intubated, FiO2 40%/PEEP recently decreased to 8. Chest x-ray reported low lung volumes with grossly stable lung parenchyma opacities predomi nantly in lung bases, layering bilateral pleural effusions, Continues on diprovan, levophed and IV fluid hydration with saline 100 MLS an hour. Right pleural fluid cytology negative for malignancy. BNP 9280. BUN 62, creatinine increased to 2.39, lasix resumed. Continues on cefepime. Afebrile, WBC 24.6. Telemetry atrial fibrillation with RVR, antiarrhythmics adjusted per cardiology. 10/15/23 remains vent dependent with FiO2 40%/+8 of PEEP. Continues on levothyroid and diprovan. Maintained on empiric cefepime. Chest x-ray reporting stable; per pulmonary, pneumonia less likely. WBC decreased to 14.7. BUN 62, creatinine improving, decreased to 1.58. Reports patient follows commands. Echo reported suboptimal , reporting mild LV dysfunction. Telemetry atrial fibrillation with RVR, on oral amiodarone, beta jorge alberto increased with digoxin added to med regimen. Lasix resumed with improving urine output. 10/16/2023 Patient is seen and evaluated in follow-up continues in the ICU with cardiology and pulmonary following maintained on mechanical ventilation with an FiO2 of 40% and PEEP is 8. Undergoing sedation holidays and assessing for possible extubation today. Chest x-ray today shows continued left lung atelectasis with pleural effusions and patient is maintained on IV Lasix twice daily. Per nursing staff patient is awake and following commands and tolerating sedation holiday. Plan for extubation today. Heart rate continues to be elevated and maintained on anticoagulation and amiodarone. Adjustments to medications per cardiology. Patient is afebrile maintained on cefepime for UTI and has been adequately treated and once transferred from ICU may not require continued antibiotic therapy. 10/17. Patient seen and examined. Currently on BiPAP. States she is feeling better. Blood work done this morning showed WBC 12.2, hemoglobin 13.2, platelet count 282, sodium 100, potassium 4, BUN 69, creatinine 1.13. Chest x-ray done this morning showed worsening pulmonary edema. 10/18. Patient seen and examined. Currently on nasal cannula. States she feels much better. States swelling of lower extremities has improved. Levaquin this morning showed WBC 11, hemoglobin 13.3, platelet count 305, sodium 1:30, potassium 4.7, BUN 72, crit 1.15 10/19. Patient seen and examined. Currently sitting upright in the chair currently on nasal cannula oxygen at 4 L, heart rate was elevated so dose of amiodarone and Lopressor were adjusted. REVIEW OF SYSTEMS: CONSTITUTIONAL: No fever, no malaise,. CARDIOVASCULAR: No chest pain, no palpitations, no syncope. PULMONARY: Still gets short of breath on exertion GASTROINTESTINAL: No diarrhea, no nausea, no vomiting, no abdominal pain. NEUROLOGICAL: No headaches, no weakness, PHYSICAL EXAMINATION: GENERAL: The patient is alert and oriented x3, chronically ill-looking HEENT: Pupils are round and equally reacting to light. EOMI. No scleral icterus. No conjunctival pallor. Normocephalic, atraumatic. No pharyngeal erythema. No thyromegaly. CARDIOVASCULAR: S1 and S2 present. No murmurs, rubs, or gallops. Tachycardic, irregular in rate and rhythm PULMONARY: Diminished breath sounds at the bases bilaterally, no wheezing or crackles. ABDOMEN: Soft, nontender, nondistended, normoactive bowel sounds. No palpable organomegaly. MUSCULOSKELETAL: No joint swelling or deformity. EXTREMITIES: 1+ pitting edema of lower extremities bilaterally NEUROLOGICAL: Gross neurological examination did not reveal any focal deficits. SKIN: No rashes. Assessment and plan Chronic Atrial fibrillation with rapid ventricular rate Secondary Hypotension, pressor dependent, improved and off pressor support Acute on chronic CHF exacerbation, diastolic dysfunction, ef 55-60%. Bilateral pleural effusions status post bilateral thoracentesis,transudative. Cytology negative for malignancy. Possible underlying pneumonia, felt to be less likely as per pulmonary. Acute hypoxic respiratory failure , on mechanical ventilator-dependent ,secondary to the above Acute UTI, E. coli Acute on chronic renal failure, stage III Pulmonary embolism bilaterally status post EKOS, 03/14/2022 Pulmonary hypertension Moderate mitral and tricuspid regurgitation Hypothyroidism Hypertension, history of Hyperlipidemia Osteoarthritis with history right knee placement in July 2022. Morbid obesity, BMI 53.1 Monitor vital signs Monitor CBC Monitor CMP Continue telemetry monitoring Encourage use of incentive spirometer Aggressive bronchopulmonary hygiene Continue use of BiPAP as needed Strict I's and O's, daily Dose of metoprolol increased to 150 mg twice a Continue digoxin and amiodarone dose increased to 400 mg twice a day Continue Lasix IV Continue oral Cipro Critical care following Cardiology following Possible transfer out of ICU Labs and medication were reviewed.. Continue same treatment. Continue with symptomatic treatment. Resume home medication. Monitor labs and vitals. DVT and GI prophylaxis. Further recommendations as per clinical course of the patient Dictation was produced using [employer] dictation software. please excuse any grammatical, word or spelling errors. Objective - Vital Signs Vital signs: Vital Signs Temp 97.9 F 10/19/23 12:00 Pulse 122 H 10/19/23 13:00 Resp 27 H 10/19/23 13:00 BP 110/94 10/19/23 10:00 Pulse Ox 93 L 10/19/23 13:00 FiO2 4 10/19/23 08:00 Intake & Output 10/18/23 10/19/23 10/19/23 18:59 06:59 18:59 Intake Total 39 283 21 Output Total 1350 1400 1600 Balance -7031 -1585 -8399 Weight 145.1 kg 144.3 kg Intake: IV 39 33 21 Pressure bags 39 33 21 Oral 250 Output: Urine 1350 1400 1600 Other: Voiding Method Indwelling Catheter Indwelling Catheter Indwelling Catheter ABP, PAP, CO, CI - Last Documented Arterial Blood Pressure 125/71 - Labs CBC & Chem 7: 10/19/23 04:30 10/19/23 04:30 Labs: Abnormal Lab Results - Last 24 Hours (Table) 10/18/23 10/18/23 10/19/23 Range/Units 16:55 20:09 04:30 WBC 12.8 H (3.8-10.6) k/uL Neutrophils # 11.6 H (1.3-7.7) k/uL Lymphocytes # 0.5 L (1.0-4.8) k/uL Sodium (137-145) mmol/L Carbon Dioxide (22-30) mmol/L BUN (7-17) mg/dL Creatinine (0.52-1.04) mg/dL Glucose (74-99) mg/dL POC Glucose (mg/dL) 148 H 180 H (70-110) mg/dL Magnesium (1.6-2.3) mg/dL AST (14-36) U/L ALT (4-34) U/L Total Protein (6.3-8.2) g/dL Albumin (3.5-5.0) g/dL 10/19/23 10/19/23 10/19/23 Range/Units 04:30 06:25 11:52 WBC (3.8-10.6) k/uL Neutrophils # (1.3-7.7) k/uL Lymphocytes # (1.0-4.8) k/uL Sodium 136 L (137-145) mmol/L Carbon Dioxide 35 H (22-30) mmol/L BUN 68 H (7-17) mg/dL Creatinine 1.13 H (0.52-1.04) mg/dL Glucose 155 H (74-99) mg/dL POC Glucose (mg/dL) 152 H 166 H (70-110) mg/dL Magnesium 2.4 H (1.6-2.3) mg/dL AST 52 H (14-36) U/L ALT 149 H (4-34) U/L Total Protein 5.5 L (6.3-8.2) g/dL Albumin 3.1 L (3.5-5.0) g/dL
[2023-10-19] MEDS: NOREPINEPHRINE 8 MG in SODIUM CHLORIDE 0.9% 250 ML IV SCH (16:01)
[2023-10-19 16:24] LABS: Glucose,Whole Blood 134 mg/dL (70-110)
[2023-10-19] MEDS: ATORVASTATIN 80 MG TAB PO SCH (20:05)
[2023-10-19 20:09] LABS: Glucose,Whole Blood 148 mg/dL (70-110)
[2023-10-19] MEDS: LORazepam 2 MG/ML INJ IV PRN (20:51)
[2023-10-20] MEDS: methylPREDNISolone SOD SUCCI 40 MG/ML 1 ML VIAL IV SCH ×3 (00:06→20:51)
[2023-10-20] MEDS: IPRATROPIUM-ALBUTEROL 3 ML NEB INHALATION SCH ×6 (00:30→19:39)
[2023-10-20 05:42] LABS: African American GFR (CKD) 63 (>60 ml/min/1.73 sqM); Anion Gap 5 mmol/L; Blood Urea Nitrogen 67 mg/dL (7-17); Calcium 8.6 mg/dL (8.4-10.2); Carbon Dioxide 34 mmol/L (22-30); Chloride 98 mmol/L (98-107); Glucose 155 mg/dL (74-99); Non-African American GFR(CKD) 55 (>60 ml/min/1.73 sqM); Potassium 4.5 mmol/L (3.5-5.1); Sodium 137 mmol/L (137-145)
[2023-10-20] MEDS: LEVOTHYROXINE 88 MCG TAB PO SCH (06:34)
[2023-10-20 06:39] LABS: Glucose,Whole Blood 149 mg/dL (70-110)
[2023-10-20] MEDS: INSULIN ASPART (NovoLOG) 100 UNIT/ML VIAL SQ SCH ×4 (06:40→21:19)
[2023-10-20] MEDS: PANTOPRAZOLE 40 MG/10 ML VIAL IVP SCH (08:11)
[2023-10-20] MEDS: DIGOXIN 250 MCG/ML 2 ML AMP IVP SCH (08:12)
[2023-10-20] MEDS: FUROSEMIDE 10 MG/ML 10 ML VIAL IV SCH ×2 (08:14→20:52)
[2023-10-20] MEDS: APIXABAN 5 MG TAB PO SCH ×2 (08:27→20:51)
[2023-10-20] MEDS: METOPROLOL TARTRATE 50 MG TAB PO SCH ×2 (08:27→20:50)
[2023-10-20] MEDS: DOCUSATE 100 MG CAP PO SCH ×2 (08:27→20:51)
[2023-10-20] MEDS: CIPROFLOXACIN HCL 500 MG TAB PO SCH ×2 (08:27→20:51)
[2023-10-20] MEDS: AMIODARONE 200 MG TAB PO SCH ×2 (08:27→20:51)
[2023-10-20] MEDS: polyethylene glycoL 3350 17 GM POWD.PACK PO SCH (08:28)
[2023-10-20] MEDS: guaiFENesin 600 MG TABLET.ER PO SCH ×2 (08:35→20:51)
[2023-10-20 11:48] LABS: Glucose,Whole Blood 141 mg/dL (70-110)
--- NOTE | 2023-10-20 12:39 | P.PN ---
Subjective Progress Note Date: 10/20/23 This is a 73-year-old female with past medical history significant for atrial fibrillation, PE, status post EKOS 02/2022, hypertension, hypothyroidism admitted with atrial fibrillation with RVR and multiple other medical issues.Evaluated and treated by cardiology. Presented to the hospital with complaints of heart palpitations, hypertension , shortness of breath 1 week.Positive orthopnea , reports sleeping sitting up in a recliner as well as living downstairs in her home to avoid climbing stairs. Cardizem drip initiated, rate improving. Cardiology consult in place. Troponins negative 3 , proBNP pending .EKG rate atrial fibrillation with RVR heart rate 132 . Echo reported normal LV function, mild pulmonary hypertension, moderate mitral and moderate tricuspid regurgitation .Chest x-ray no acute pulmonary process. UA reports positive nitrates, many bacteria, small leukocytes, urine culture pending. 09/30/2023 recently placed on 2 L nasal cannula, then increased to 4 L, maintaining O2 sats in the low 90s .complains of mild increased shortness of breath, which she reports started actually during the night. She has been on Lasix IV push every 12 hours, 24-hour I&O reflecting a negative fluid balance. Renal function mildly worsened, BUN 37, creatinine 1.26. Sodium 125 .Maintained on Rocephin for acute UTI. Afebrile, WBC 13.7. Blood sugars controlled. 10/01/23 yesterday developed worsening pulmonary edema, transfer to ICU. Chest x-ray at that time reported worsening of large perihilar consolidation noted greater on the right, pulmonary edema versus diffuse pneumonia. Received additional Lasix IV push, frequency increased yesterday diuresed well with 24- hour I&O reflecting a negative fluid balance. Maintained on BiPAP throughout the night, placed on 13 L nasal cannula to facilitate patient's diet intake this morning. Chest x-ray repeated this morning reporting improving bilateral areas of consolidation. Telemetry sinus rhythm, continues on Cardizem drip, t achycardic with heart rates in the 130s to 140s. Denies chest pain, palpitations. Afebrile, normal WBC. BUN 37, creatinine 1.30. Blood sugars controlled. 10/07/23 used BiPAP overnight, currently maintaining O2 sats in the 90s on 6 L nasal cannula. Chest x-ray reported bilateral pleural effusions, chest ultrasound reported right pleural effusion 6.8 cm, left pleural effusion 7.5 cm with both marked for possible thoracentesis. Diuresing on Lasix IV push with 24-hour I&O reflecting a negative fluid balance, but continues to have significant lower extremity edema. Telemetry atrial fibrillation with heart rates up to 120s. Reports palpitations, no chest pain. Evaluated by cardiology, discussing RICO with cardioversion. 10/08/23 Eliquis on hold. status post right thoracentesis with 1200 MLS turbid pleural drainage aspirated. Tolerated procedure well. Postprocedure x-ray reported no pneumothorax, bilateral lower lobe infiltrate and small left effusion. Using BiPAP at night. Currently seem on Lasix IV push with 24-hour I&O reflecting a negative fluid balance. Telemetry atrial fibrillation with heart rates ranging from 90 to 110s. Maintaining O2 in the high 90s on 4-5 L nasal cannula. Bicarb 34, BUN 41, creatinine 1.03. 10/09/2023 chest x-ray reporting bilateral lower lobe infiltrate and small left effusion/no sizable pleural effusion on the right/no pneumothorax. Status post left thoracentesis this morning with 550 MLS turbid pleural drainage aspirated. Tolerated procedure well. Postprocedure chest x-ray reported no pneumothorax. Maintained on oral antiarrhythmics ,telemetry reporting atrial fibrillation. Cardioversion pending. Afebrile, normal WBC. Continues diuresing well on Lasix IV push with 24-hour I&O reflecting a negative fluid balance. sodium 136, potassium 3.8, bicarb 37, BUN 38, creatinine 0.97. Maintaining O2 sats in the 90s on 3 L nasal cannula. 10/10/2023 Eliquis resumed yesterday after thoracentesis. Pleural fluid Cytology pending . Telemetry atrial fibrillation, heart rate better controlled today on oral amiodarone, metoprolol, Cardizem. Cardioversion pending. BiPAP throughout the night. Denies chest pain, palpitations or shortness of breath. Maintaining O2 sats in the 90s on 2 L nasal cannula. Continues diuresing well on Lasix IV push with 24-hour I&O reflecting a negative fluid balance. Afebrile, normal WBC. Potassium 3.6, receiving replacement. BUN 36, creatinine 1.1 10/11/2023 BiPAP for short while during the night. Currently maintaining O2 sat in the 90s on room air. Continues diuresing well on Lasix IV push with 24-hour I&O reflecting a negative fluid balance. BUN 34, creatinine 1.24. Pleural fluid cytology pending. Cardizem discontinued, continues on amiodarone with metoprolol increased, A. fib controlled. Afebrile, normal WBC. Reports she ambulated yesterday, tolerated exertion well, O2 sat on room air after ambulation 95%. 10/14/2023 intubated, FiO2 40%/PEEP recently decreased to 8. Chest x-ray reported low lung volumes with grossly stable lung parenchyma opacities predomi nantly in lung bases, layering bilateral pleural effusions, Continues on diprovan, levophed and IV fluid hydration with saline 100 MLS an hour. Right pleural fluid cytology negative for malignancy. BNP 9280. BUN 62, creatinine increased to 2.39, lasix resumed. Continues on cefepime. Afebrile, WBC 24.6. Telemetry atrial fibrillation with RVR, antiarrhythmics adjusted per cardiology. 10/15/23 remains vent dependent with FiO2 40%/+8 of PEEP. Continues on levothyroid and diprovan. Maintained on empiric cefepime. Chest x-ray reporting stable; per pulmonary, pneumonia less likely. WBC decreased to 14.7. BUN 62, creatinine improving, decreased to 1.58. Reports patient follows commands. Echo reported suboptimal , reporting mild LV dysfunction. Telemetry atrial fibrillation with RVR, on oral amiodarone, beta jorge alberto increased with digoxin added to med regimen. Lasix resumed with improving urine output. 10/16/2023 Patient is seen and evaluated in follow-up continues in the ICU with cardiology and pulmonary following maintained on mechanical ventilation with an FiO2 of 40% and PEEP is 8. Undergoing sedation holidays and assessing for possible extubation today. Chest x-ray today shows continued left lung atelectasis with pleural effusions and patient is maintained on IV Lasix twice daily. Per nursing staff patient is awake and following commands and tolerating sedation holiday. Plan for extubation today. Heart rate continues to be elevated and maintained on anticoagulation and amiodarone. Adjustments to medications per cardiology. Patient is afebrile maintained on cefepime for UTI and has been adequately treated and once transferred from ICU may not require continued antibiotic therapy. 10/17. Patient seen and examined. Currently on BiPAP. States she is feeling better. Blood work done this morning showed WBC 12.2, hemoglobin 13.2, platelet count 282, sodium 100, potassium 4, BUN 69, creatinine 1.13. Chest x-ray done this morning showed worsening pulmonary edema. 10/18. Patient seen and examined. Currently on nasal cannula. States she feels much better. States swelling of lower extremities has improved. Levaquin this morning showed WBC 11, hemoglobin 13.3, platelet count 305, sodium 1:30, potassium 4.7, BUN 72, crit 1.15 10/19. Patient seen and examined. Currently sitting upright in the chair currently on nasal cannula oxygen at 4 L, heart rate was elevated so dose of amiodarone and Lopressor were adjusted. 10/20. Patient seen and examined. Currently on 3 L of oxygen. Breathing is improving, still has swelling of lower extremities. REVIEW OF SYSTEMS: CONSTITUTIONAL: No fever, no malaise,. CARDIOVASCULAR: No chest pain, no palpitations, no syncope. PULMONARY: Still gets short of breath on exertion GASTROINTESTINAL: No diarrhea, no nausea, no vomiting, no abdominal pain. NEUROLOGICAL: No headaches, no weakness, PHYSICAL EXAMINATION: GENERAL: The patient is alert and oriented x3, chronically ill-looking HEENT: Pupils are round and equally reacting to light. EOMI. No scleral icterus. No conjunctival pallor. Normocephalic, atraumatic. No pharyngeal erythema. No thyromegaly. CARDIOVASCULAR: S1 and S2 present. No murmurs, rubs, or gallops. Tachycardic, irregular in rate and rhythm PULMONARY: Diminished breath sounds at the bases bilaterally, no wheezing or crackles. ABDOMEN: Soft, nontender, nondistended, normoactive bowel sounds. No palpable organomegaly. MUSCULOSKELETAL: No joint swelling or deformity. EXTREMITIES: 1+ pitting edema of lower extremities bilaterally NEUROLOGICAL: Gross neurological examination did not reveal any focal deficits. SKIN: No rashes. Assessment and plan Chronic Atrial fibrillation with rapid ventricular rate Secondary Hypotension, pressor dependent, improved and off pressor support Acute on chronic CHF exacerbation, diastolic dysfunction, ef 55-60%. Bilateral pleural effusions status post bilateral thoracentesis,transudative. Cytology negative for malignancy. Possible underlying pneumonia, felt to be less likely as per pulmonary. Acute hypoxic respiratory failure , on mechanical ventilator-dependent ,secondary to the above Acute UTI, E. coli Acute on chronic renal failure, stage III Pulmonary embolism bilaterally status post EKOS, 03/14/2022 Pulmonary hypertension Moderate mitral and tricuspid regurgitation Hypothyroidism Hypertension, history of Hyperlipidemia Osteoarthritis with history right knee placement in July 2022. Morbid obesity, BMI 53.1 Monitor vital signs Monitor CBC Monitor CMP Continue telemetry monitoring Encourage use of incentive spirometer Aggressive bronchopulmonary hygiene Continue use of BiPAP as needed Strict I's and O's, daily Continue Lopressor 150 mg twice a day Continue digoxin and amiodarone 400 mg twice a day Continue Lasix IV 60 mg every 12 Continue oral Cipro Critical care following Cardiology following Possible transfer out of ICU Labs and medication were reviewed.. Continue same treatment. Continue with symptomatic treatment. Resume home medication. Monitor labs and vitals. DVT and GI prophylaxis. Further recommendations as per clinical course of the patient Dictation was produced using [employer] dictation software. please excuse any grammatical, word or spelling errors. Objective - Vital Signs Vital signs: Vital Signs Temp 97.4 F L 10/20/23 08:00 Pulse 100 10/20/23 11:20 Resp 20 10/20/23 11:00 BP 110/94 10/20/23 07:00 Pulse Ox 95 10/20/23 11:00 FiO2 4 10/19/23 08:00 Intake & Output 10/19/23 10/20/23 10/20/23 18:59 06:59 18:59 Intake Total 36 143 65 Output Total 1909 Balance -6629 -7540 -169 Weight 141 kg Intake: IV 36 143 65 KVO 0.9 NS @ 10 110 50 Pressure bags 36 33 15 Output: Urine 1909 Other: Voiding Method Indwelling Catheter Indwelling Catheter Indwelling Catheter ABP, PAP, CO, CI - Last Documented Arterial Blood Pressure 119/65 - Labs CBC & Chem 7: 10/19/23 04:30 10/20/23 05:20 Labs: Abnormal Lab Results - Last 24 Hours (Table) 10/19/23 10/19/23 10/20/23 Range/Units 16:22 20:08 05:20 Carbon Dioxide 34 H (22-30) mmol/L BUN 67 H (7-17) mg/dL Glucose 155 H (74-99) mg/dL POC Glucose (mg/dL) 134 H 148 H (70-110) mg/dL 10/20/23 10/20/23 Range/Units 06:38 11:46 Carbon Dioxide (22-30) mmol/L BUN (7-17) mg/dL Glucose (74-99) mg/dL POC Glucose (mg/dL) 149 H 141 H (70-110) mg/dL
--- NOTE | 2023-10-20 14:40 | P.PN ---
Subjective Progress Note Date: 10/20/23 Principal diagnosis: Acute hypoxic respiratory failure secondary to acute congestive heart failure with preserved ejection fraction and possible underlying pneumonia. 73-year-old female who presented to the emergency department on September 26, complaining of arrhythmias, and palpitations. The patient does have a history of hypertension, atrial fibrillation, hyperlipidemia, pulmonary embolism, and hypothyroidism. The patient apparently was having some lower extremity edema, shortness of breath, and orthopnea. She also had mild exertional dyspnea. The patient denied any chest pain or chest discomfort. She was seen by the ER physician, and admitted with a diagnosis of atrial fibrillation, CHF, and urinary tract infection. Today, a rapid response was called on this patient, and, R ICU charge nurse, who evaluated the patient, and thought the patient should come down to the intensive care unit, for further monitoring and management. She was given some IV Lasix, and placed on BiPAP, with settings of 16/6, and 100%. She was seen in the intensive care unit, room 255. She was sitting up in bed, with mild respiratory distress, on the BiPAP device. White count was 13.7, hemoglobin 14.5, hematocrit 44.4, and a normal platelet count. Sodium 135, potassium 3.9, chlorides 96, CO2 27, anion gap 12, BUN 37, and creatinine 1.26. N-terminal proBNP, on September 29, was 7020. The patient had chest x-rays on the and on the . Today's chest x-ray shows worsening pulmonary edema. On 10/12/2023, the patient is found to be short of breath. After doing signifi cant progress and being on room air oxygen, earlier last night, at around 10 PM, the patient became progressively more hypoxic. Initially she required 2 L and later on 5 L and subsequently she was placed on a BiPAP and she is currently on a BiPAP at a pressure of 16/6 cm water with an FiO2 of 45%. Her breathing is labored at this point in time. Note that the patient was being treated for the Cyst heart failure and fluid overload. She was being treated with Lasix. The patient was producing excellent urine output and she also had bilateral thoracentesis was further optimized her volume status and fluid balance. The patient denies having any chest pain. On examination, she has diminished breath sounds bilaterally along with some bibasilar crackles and breath sounds are slightly diminished on the right base compared to the left. Chest x-ray shows worsening in the interstitial infiltrates bilaterally and some limited patchy bibasilar opacities. No reported aspiration. The white cell count remains low at 7.3. Hemoglobin is at 13.1. BUN is 34 with a creatinine 1.24 and a sodium level is at 135. She is afebrile at this point in time. The patient has chronic atrial fibrillation and her current cardiac rhythm is sinus. On 10/13/2023, the patient is being seen for a follow-up. At this point in time, the patient is intubated on a mechanical ventilator. She is sedated on pr opofol. She was intubated yesterday because of an acute hypoxic respiratory failure and pulmonary edema. This morning, she was discussed with a rate of 24, tidal volume of 400, FiO2 is at 50% with a PEEP of 12. Chest x-ray shows improvement in the pulmonary edema compared to yesterday and a blood gas shows a pH of 7.52 with a pCO2 of 39 and pO2 of 120 and this was on FiO2 of 50%. The patient was taken off diuretics. Noted the patient was diuresed aggressively which is essentially pertinent acute kidney injury and the creatinine this morning is at 2.5 with a BUN of 54. Sodium levels of 136. Potassium levels at 4.7. The risk of 18.4 with a hemoglobin of 14.2. She was started on empiric antibiotic coverage with IV cefepime. Her cardiac rhythm is back in sinus and the patient is also undergoing related with Eliquis 5 mg by mouth twice a day. She remains on bronchodilators. The fluid balance over the past 24 hours as and possible 1.4 L. No fever. No chills. She is currently on no pressors. She'll be started on enteral feeding for nutritional support. Patient was reevaluated today on 10/14/2023, patient remains in the ICU, intubated and mechanically ventilated, she is on assist control rate of 24 tidal volume 400 FiO2 40% and PEEP of 10 however her ABG showed a pO2 of 118 pCO2 45 pH of 7.43, hence I cut down the PEEP from 10-8. Patient was initially admitted on 09/26 intubated on 10/12 and remains intubated. She was admitted mostly with congestive heart failure, atrial fibrillation and RVR, and she has a preserved ejection fraction. Chest x-ray continues to show evidence of congestive heart failure, underlying pneumonia is not entirely ruled out but felt to be less likely her pleural effusion was clearly transudative in nature consistent with CHF cytology on the fluid from the pleural effusion is also negative for underlying malignancy it patient continues to have leukocytosis with WBC of 24.6 hemoglobin 15.7, basic metabolic profile is normal however BUN is 62 creatinine 2.39, slightly worse compared to baseline of 1.10 few days ago, and diuretics we re placed temporarily on hold BNP level is over 9000. Patient remains on norepinephrine at 0.0; 0/m on propofol at 30 mcg/kg/m also on 0.9 normal saline at 100 mL per hour. Patient remains in atrial fibrillation with RVR, she is on Lopressor at 50 twice a day she is also on amiodarone orally cardiology cut down the Lopressor down to 12.5 twice a day because of low blood pressure. Patient is intermittently receiving Lasix her urine output seems to be about 50 mL per hour. Antibiotics [place] patient remains on cefepime. Patient was reevaluated today on 10/15/23, remains in the ICU, intubated and mechanically ventilated. Patient remains on assist control rate of 24, FiO2 40% tidal volume 400 and PEEP of 8 ABG showed a pO2 of 84 pCO2 46 pH of 7.43, patient remains on propofol at 25 mcg/kg/m. Patient is also on cefepime for her E. coli infection in the urine she is also on Lasix 40 mg IV push twice a day with definite improvement in her renal status today. Continues to have relatively high CVP of 13. Creatinine is down to 1.58 today, and her IV fluid was cut down to KVO today. Chest x-ray is showing slight improvement in her fluid status. W see count is 14.7 definitely improved hemoglobin 12.7 basic metabolic profile is normal renal profile is improving with BUN 62 creatinine down to 1.58 from 2.39 yesterday Patient was reevaluated today on 10/16/23, remains in the ICU, intubated and mechanically ventilated. Patient is on assist control rate of 24 tidal volume 400 FiO2 40% and PEEP of 8. ABG showed a pO2 of 85 pCO2 48 pH of 7.44 patient remains on propofol at 25 mcg/kg/m, IV fluid is KVO, patient is easing vital HPI at 57 mL/h she has good urine output and continues to respond well to Lasix 40 mg IV push every 12 hours, renal functioning is improving, remains on cefepime for UTI. And she is also on eliquis. Echocardiogram showed mild LV dysfunction. Nonetheless the patient is doing much better with diuresis for the last few days. Chest x-ray is showing slight improvement, continues to have small bilateral pleural effusions. No need for thoracentesis at this point. After reviewing all of this, I have recommended that the patient goes on it and CPAP after stopping her propofol, and if tolerated may even consider weaning and extubation of this patient. W see count today is 11.3 hemoglobin is 12.3. Basic metabolic profile is normal, creatinine is steadily improving is down to 1.34 today. And blood sugar is 184 Reevaluated today on 10/17, patient remains in the ICU, remains on BiPAP, she is now on 12/45%, and the plan is to transition from BiPAP to a high flow nasal cannula. Patient x-ray is showing slight worsening and worsening pulmonary edema and some recommending to increase her Lasix from 40 mg twice a day to 60 mg twice a day. Her IV fluids remains at KVO. Her overall clinical status remains marginal at best. Again there is worsening chest x-ray. Labs are basically unremarkable with improvement in her creatinine down to 1.13 in spite of aggressive diuresis. Looking at the fluid status, patient is -2 L in the last 24 hours Reevaluated today on 10/18/23, patient remains in the ICU, she is now on 4 L nasal cannula and O2 saturations running between 93 up to 97%. Patient seems to be more alert today, not confused, feeling better clinically, and she denies any shortness of breath. Chest x-ray showed significant improvement in her bilateral interstitial edema nonetheless she continues to have some left pleural effusion not large enough to consider thoracentesis again at this point. Yesterday I have increased her Lasix to 60 mg twice a day, and his chest x-ray is definitely showing improvement. Patient is negative fluid balance about 5 L in the last 2 days. And she continues to diurese, renal functioning is maintaining with creatinine of 1.15 today, steadily improving over the last 5 days in spite of aggressive diuresis. Her metoprolol dose was increased as well as her amiodarone dose increased by cardiology on the case Reevaluated today on 10/19/23, patient remains in, she is now on 4 L nasal debora rogelio, she seems to be tachycardic, and her atrial fibrillation is still not fully controlled, patient has been seen by cardiology and her metoprolol was increased to 150 twice a day and amiodarone was increased to 400 twice a day. Patient is on 4 L but at night she goes on 10/30/45%. Does not seem to be in any distress, she is basically asymptomatic. IV fluids at KVO. And the patient remains on diuretics. Renal function continues to improve creatinine is 1.13 basic metabolic profile is relatively normal bicarb is 35 BUN is 68 WBC 12.8 hemoglobin 13.6 chest x-ray from yesterday showed improved aeration of the lungs has the patient had no change in her diuretics dose Reevaluated today on 10/20/23 patient remains in the ICU, remains on 4 L nasal cannula, doing great, relatively asymptomatic, patient is in good spirits, her IV fluids at KVO, patient is being transferred today to [facility]. In the meantime I am planning to continue her diuretics, and continue antibiotics for UTI. Basic metabolic profile is normal and her BUN is 67 creatinine 1.01 today, no major issues overnight. Patient does have cool left lower extremity and left foot, she has also noted by Doppler. No evidence of acute ischemic changes. Her right foot seems to be warm and slightly swollen. Objective - Vital Signs Vital signs: Vital Signs Temp 97.4 F L 10/20/23 08:00 Pulse 108 H 10/20/23 13:00 Resp 26 H 10/20/23 13:00 BP 110/94 10/20/23 07:00 Pulse Ox 93 L 10/20/23 13:00 FiO2 4 10/19/23 08:00 Intake & Output 10/19/23 10/20/23 10/20/23 18:59 06:59 18:59 Intake Total 36 143 91 Output Total 1909 1974 1149 Balance -6183 -5721 -6329 Weight 141 kg Intake: IV 36 143 91 KVO 0.9 NS @ 10 110 70 Pressure bags 36 33 21 Output: Urine 1909 1974 1149 Other: Voiding Method Indwelling Catheter Indwelling Catheter Indwelling Catheter ABP, PAP, CO, CI - Last Documented Arterial Blood Pressure 106/55 - Exam Physical Exam: Revealed 73-year-old female obese in no distress , on 4 L nasal cannula Head: Atraumatic normocephalic. HEENT:[Neck is supple.] [No neck masses.] [No thyromegaly.] [No JVD.] Chest: [Symmetrical chest expansion diminished breath sounds at the bases no crackles or rhonchi or wheezes Cardiac Exam: Tachycardic Irregular irregular rhythm. [Normal S1 and S2, no S3 gallop, 2/6 systolic murmur thought the precordium. Abdomen: [Soft, nontender, no megaly, no rebound, no guarding, normal bowel sounds.] Extremities: [No clubbing, trace of bipedal edema, no cyanosis.] Patient has a cool left foot, pulses detectable by Doppler and warm right foot also pulses detectable by Doppler Neurological Exam: Alert and oriented 3, no gross focal neurologic deficit Psychiatric: Normal mood, affect and normal mental status examination Skin: Swelling noted on the dorsal aspect of the right foot with some redness, pulses detectable by Doppler - Labs CBC & Chem 7: 10/19/23 04:30 10/20/23 05:20 Labs: Abnormal Lab Results - Last 24 Hours (Table) 10/19/23 10/19/23 10/20/23 Range/Units 16:22 20:08 05:20 Carbon Dioxide 34 H (22-30) mmol/L BUN 67 H (7-17) mg/dL Glucose 155 H (74-99) mg/dL POC Glucose (mg/dL) 134 H 148 H (70-110) mg/dL 10/20/23 10/20/23 Range/Units 06:38 11:46 Carbon Dioxide (22-30) mmol/L BUN (7-17) mg/dL Glucose (74-99) mg/dL POC Glucose (mg/dL) 149 H 141 H (70-110) mg/dL Assessment and Plan Assessment: Impression: Acute hypoxic respiratory failure secondary to acute systolic congestive heart failure, ejection fraction was noted to be 45% on her echocardiogram Bilateral pleural effusions/transudative in nature. Based on protein and LDH levels in the pleural effusion. Patient is status post bilateral thoracentesis Chronic atrial fibrillation with RVR, being addressed by cardiology on amiodarone, and metoprolol, both doses have been increased which is also on eliquis, E. coli urinary tract infection, on ciprofloxacin Benign essential hypertension Dyslipidemia History of pulmonary embolism Hypothyroidism Degenerative joint disease Possible underlying pneumonia but felt to be less likely based on the clinical history Recommendation: Transfer patient to 3 S. today. Once a bed is available Continue diuretics, Lasix 60 mg twice a day Continue antibiotics, ciprofloxacin 500 twice a day Physical therapy to evaluate the patient. Continue anticoagulation therapy/eliquis Continue amiodarone and beta blockers, being addressed by cardiology patient is on amiodarone at 400 twice a day and on metoprolol 150 mg by mouth twice a day Continue to monitor closely renal profile Continue bronchodilators and steroids, we will decrease methylprednisolone to 40 mg twice a day We will continue to follow Time with Patient: Less than 30
--- NOTE | 2023-10-20 15:22 | P.PN ---
Subjective Progress Note Date: 10/20/23 Principal diagnosis: Persistent atrial fibrillation The patient is a 73-year-old female patient with history of heart failure as well as atrial fibrillation as well as hypertension and dyslipidemia and renal failure was admitted to the hospital with acute hypoxic respiratory failure. Initially she was started on diuretics for heart failure subsequently she developed renal failure and the diuretics was a systolic. Currently she is intubated and she is on mechanical ventilation for possible underlying pneumonia/sepsis and currently she is on norepinephrine 10/14/2023 The patient was seen and evaluated this morning. The patient remains intubated on mechanical ventilation. She remains hypotensive requiring norepinephrine. She is on amiodarone orally. She remains in nature fibrillation with overall heart rate around 120 bpm. I'm going to add a small dose of beta jorge alberto with metoprolol tartrate 12.5 mg by mouth twice a day to the current medical regimen. Continue oral anticoagulation. She is in process of having an echocardiogram later on today. The examination is remarkable for irregular rhythm with a systolic murmur at the right and left upper sternal border and bilateral upper and lower extremities edema October [id number] The patient was seen and evaluated this morning. She remains in atrial fibrillation with overall uncontrolled heart rate in spite of increasing the dose of metoprolol. She is also on amiodarone. I'm going to add digoxin to the current medical regimen. She does have edema in the lower extremities and she was started on Lasix IV. Her kidney function is slightly abnormal. The examination is remarkable for irregular heart rhythm with diminished breathing sounds bilaterally and bilateral lower extremities edema 10/16/2023 The patient was seen and evaluated this morning. She is awake. He potentially can be extubated later on today. Hemodynamically stable. The heart rate has somewhat improved continues to be in the 100 bpm. I'm going to increase the dose of beta jorge alberto with metoprolol to 50 mg by mouth twice a day. Continue digoxin and continue amiodarone and continue oral anticoagulation. She is having edema in the upper and lower extremity is and she is on Lasix IV which we will continue. October 172022 The patient was seen and evaluated this morning. She was extubated yesterday. Hemodynamically she is stable beside heart rate around 120 beats per minutes. Pressure is a stable. For that reason I'm going to increase the dose of metoprolol to 50 mg by mouth 3 times a day. She still have upper and lower extremities edema and she is on Lasix IV and has been making urine. She is on oral anticoagulation. She still on oxygen at 3 L at this point. The chest x- ray continues to show finding of bilateral infiltrate/heart failure 10/18/2023 The patient was seen and evaluated this morning. She was extubated 48 hours ago. Hemodynamically she is stable beside still tachycardia with the atrial fibrillation. She is on anticoagulation. I'm going to increase the dose of metoprolol and increase dose of amiodarone as well. She still hypoxic requiring oxygen. She started having upper and lower extremity is edema and she is on Lasix IV. The creatinine remains stable 10/19/2023 The patient was seen and evaluated this morning. She still tachycardic in atrial fibrillation. I'm going to increase the dose of amiodarone and metoprolol [place] she is on oral anticoagulation which is still congested and currently she is on Lasix IV. The creatinine remains stable. Examination is re markable for severe eye lateral lower extremity is edema 10/20/2023 The patient was seen and evaluated this morning. She is doing overall better. The atrial fibrillation has been under control on the current dose of amiodarone are on and metoprolol and digoxin. As a matter of fact she started trending down and without being seen in one to decrease the dose of amiodarone and potentially decrease the dose of metoprolol if she starts going further down in the heart rate. She still hypervolemic. She continues to be on Lasix IV. The creatinine remains stable. The examination is remarkable for severe bilateral lower extremity is edema and diminished breathing sounds bilaterally and irregul ar rhythm Assessment Heart failure with preserved ejection fraction Pneumonia/sepsis Acute hypoxic respiratory failure secondary to the above Acute on chronic renal failure Atrial fibrillation with uncontrolled heart rate Multiple comorbid conditions Plan Continue the current medical regimen Continue the current dose of Lasix IV Continue monitoring her kidney function and electrolytes Decrease dose of amiodarone Follow-up with the patient Objective - Vital Signs Vital signs: Vital Signs Temp 97.4 F L 10/20/23 08:00 Pulse 94 10/20/23 15:00 Resp 18 10/20/23 15:00 BP 110/94 10/20/23 07:00 Pulse Ox 94 L 10/20/23 15:00 FiO2 4 10/19/23 08:00 Intake & Output 10/19/23 10/20/23 10/20/23 18:59 06:59 18:59 Intake Total 36 143 117 Output Total 1909 1974 1324 Balance -1874 -1832 -1208 Weight 141 kg Intake: IV 36 143 117 KVO 0.9 NS @ 10 110 90 Pressure bags 36 33 27 Output: Urine 1909 1974 1324 Other: Voiding Method Indwelling Catheter Indwelling Catheter Indwelling Catheter # Bowel Movements 1 ABP, PAP, CO, CI - Last Documented Arterial Blood Pressure 128/117 - Labs CBC & Chem 7: 10/19/23 04:30 10/20/23 05:20 Labs: Abnormal Lab Results - Last 24 Hours (Table) 10/19/23 10/19/23 10/20/23 Range/Units 16:22 20:08 05:20 Carbon Dioxide 34 H (22-30) mmol/L BUN 67 H (7-17) mg/dL Glucose 155 H (74-99) mg/dL POC Glucose (mg/dL) 134 H 148 H (70-110) mg/dL 10/20/23 10/20/23 Range/Units 06:38 11:46 Carbon Dioxide (22-30) mmol/L BUN (7-17) mg/dL Glucose (74-99) mg/dL POC Glucose (mg/dL) 149 H 141 H (70-110) mg/dL
[2023-10-20 20:31] LABS: Glucose,Whole Blood 142 mg/dL (70-110)
[2023-10-20] MEDS: ATORVASTATIN 80 MG TAB PO SCH (20:51)
[2023-10-20] MEDS: LORazepam 2 MG/ML INJ IV PRN (21:22)
[2023-10-21] MEDS: IPRATROPIUM-ALBUTEROL 3 ML NEB INHALATION SCH ×6 (00:17→20:01)
[2023-10-21 05:40] LABS: Basophils % (A) 0 %; Eosinophils # (A) 0.1 k/uL (0-0.7); Eosinophils % (A) 0 %; HCT 43.6 % (34.0-46.0); Lymphocytes # (A) 0.6 k/uL (1.0-4.8); Lymphocytes % (A) 4 %; MCH 31.4 pg (25.0-35.0); MCHC 32.2 g/dL (31.0-37.0); MCV 97.5 fL (80.0-100.0); Mean Platelet Volume 7.9; Monocytes # (A) 0.6 k/uL (0-1.0); Monocytes % (A) 4 %; Neutrophils # (A) 12.8 k/uL (1.3-7.7); Neutrophils % (A) 91 %; Platelet Count 270 k/uL (150-450); RBC 4.47 m/uL (3.80-5.40); RDW 13.8 % (11.5-15.5); WBC 14.1 k/uL (3.8-10.6)
[2023-10-21 05:56] LABS: African American GFR (CKD) 71 (>60 ml/min/1.73 sqM); Anion Gap 6 mmol/L; Blood Urea Nitrogen 65 mg/dL (7-17); Calcium 8.5 mg/dL (8.4-10.2); Carbon Dioxide 34 mmol/L (22-30); Chloride 96 mmol/L (98-107); Glucose 157 mg/dL (74-99); Magnesium 2.3 mg/dL (1.6-2.3); Non-African American GFR(CKD) 62 (>60 ml/min/1.73 sqM); Potassium 4.2 mmol/L (3.5-5.1); Sodium 136 mmol/L (137-145)
[2023-10-21] MEDS: LEVOTHYROXINE 88 MCG TAB PO SCH (06:39)
[2023-10-21 06:46] LABS: Glucose,Whole Blood 149 mg/dL (70-110)
[2023-10-21] MEDS: INSULIN ASPART (NovoLOG) 100 UNIT/ML VIAL SQ SCH ×4 (06:47→20:26)
[2023-10-21] MEDS: DOCUSATE 100 MG CAP PO SCH ×2 (09:04→20:25)
[2023-10-21] MEDS: polyethylene glycoL 3350 17 GM POWD.PACK PO SCH (09:04)
[2023-10-21] MEDS: FUROSEMIDE 10 MG/ML 10 ML VIAL IV SCH ×2 (10:36→20:25)
[2023-10-21] MEDS: METOPROLOL TARTRATE 50 MG TAB PO SCH ×2 (10:38→20:23)
[2023-10-21] MEDS: CIPROFLOXACIN HCL 500 MG TAB PO SCH ×2 (10:40→20:25)
[2023-10-21] MEDS: DIGOXIN 250 MCG/ML 2 ML AMP IVP SCH (10:41)
[2023-10-21] MEDS: AMIODARONE 200 MG TAB PO SCH ×2 (10:41→20:23)
[2023-10-21] MEDS: APIXABAN 5 MG TAB PO SCH ×2 (10:41→20:23)
[2023-10-21] MEDS: PANTOPRAZOLE 40 MG/10 ML VIAL IVP SCH (10:43)
[2023-10-21] MEDS: methylPREDNISolone SOD SUCCI 40 MG/ML 1 ML VIAL IV SCH ×2 (10:44→20:26)
[2023-10-21] MEDS: guaiFENesin 600 MG TABLET.ER PO SCH ×3 (10:46→20:25)
[2023-10-21 11:34] LABS: Glucose,Whole Blood 144 mg/dL (70-110)
--- NOTE | 2023-10-21 11:42 | P.PN ---
Subjective Progress Note Date: 10/21/23 Principal diagnosis: Shortness of breath. Pulmonary consult dated 09/30/2023. 73-year-old female who presented to the emergency department on September 26, complaining of arrhythmias, and palpitations. The patient does have a history of hypertension, atrial fibrillation, hyperlipidemia, pulmonary embolism, and hypothyroidism. The patient apparently was having some lower extremity edema, shortness of breath, and orthopnea. She also had mild exertional dyspnea. The patient denied any chest pain or chest discomfort. She was seen by the ER physician, and admitted with a diagnosis of atrial fibrillation, CHF, and urinary tract infection. Today, a rapid response was called on this patient, and, R ICU charge nurse, who evaluated the patient, and thought the patient should come down to the intensive care unit, for further monitoring and management. She was given some IV Lasix, and placed on BiPAP, with settings of 16/6, and 100%. She was seen in the intensive care unit, room 255. She was sitting up in bed, with mild respiratory distress, on the BiPAP device. White count was 13.7, hemoglobin 14.5, hematocrit 44.4, and a normal platelet count. Sodium 135, potassium 3.9, chlorides 96, CO2 27, anion gap 12, BUN 37, and creatinine 1.26. N-terminal proBNP, on September 29, was 7020. The patient had chest x-rays on the and on the . Today's chest x-ray shows worsening pulmonary edema. Progress note dated 10/01/2023. 73-year-old female seen again in intensive care unit, room 255. The patient was admitted with a diagnosis of acute hypoxemic respiratory failure, secondary to CHF, as well as atrial fibrillation with RVR. The patient is currently on high flow nasal O2, at 13 L. In addition, the patient uses BiPAP intermittently at 16/6, and 60%. For her atrial fibrillation and RVR, the patient's on Cardizem 15 mg an hour. Clinically, she's starting to feel a bit better. White count 9.4, hemoglobin 14, hematocrit 43.1, and platelet count 223,000. Sodium 136, potassium 4.1, chlorides 96, CO2 29, BUN 37, and creatinine 1.30. Calcium is 9.2. Chest x-ray shows improved vascular congestion. Progress note dated 10/02/2023. 73-year-old female seen in the intensive care unit, room 255. She was admitted initially with a diagnosis of acute hypoxemic respiratory failure secondary to CHF, as well as atrial fibrillation with rapid ventricular response. The patient is currently on room air, with saturations of 91%. Unfortunately, she continues on Cardizem at 10 mg an hour, and amiodarone at 0.5 mg/m. White count 9, hemoglobin 12.8, hematocrit 39.4, within normal platelet count. Sodium 136, potassium 4.3, chloride 96, CO2 34, BUN 41, creatinine 1.12. Glucose is 112. Urine culture is showing evidence of Escherichia coli. Chest x-ray shows improvement in the patient's pulmonary vascular status. Progress note dated 10/03/2023. 73-year-old female seen today in room 255, intensive care unit. She was admitted with a diagnosis of acute hypoxemic respiratory failure, secondary to CHF, as well as atrial fibrillation, with rapid ventricular response. Currently, the patient is on 2 L of oxygen. She's on a Cardizem drip at 10 mg an hour. She's not receiving any IV fluids additionally. The patient that she is BiPAP, intermittently, with settings of 16/6, and 45%. She use BiPAP last night for about an hour and a half. She needs to be using it more frequently. White count 9.4, hemoglobin 12.9, hematocrit 39.2, and platelet count 187,000. Sodium 136, potassium 4.1, chlorides 97, CO2 32, BUN 36, creatinine 1.06. Gluc ose 116. Calcium is 9. Chest x-ray shows improved pulmonary vascular status. Progress note dated 10/04/2023. 73-year-old female seen again in the intensive care unit, room 255. Currently, she is on 2 L of oxygen. She's on a Cardizem drip at 10 mg an hour, to be dropped on the 5 mg an hour. She did use of BiPAP last night, for many hours, and it seemed to help. Her settings include 16/6, and 45%. She currently remains in atrial fibrillation with a rate of 128 bpm. Labs today include a s odium 138, potassium 4.1, chlorides 98, CO2 31, BUN 40, and creatinine 1.08. Glucose 116. Calcium is 9.1. No chest x-ray today. Progress note dated 10/05/2023. 73-year-old female who was sent out of the intensive care unit yesterday, and came back into the intensive care unit, sometime early this morning. She apparently developed worsening shortness of breath, was severely anxious, receive some benzodiazepine, and, required BiPAP therapy. I was called by the nurse who went to the rapid response, and we decided to move the patient back to the intensive care unit. Currently, she is seen in room 261. She is on BiPAP, with settings of 16/6 and 60%. Gases done on 100% show pO2 of 66, pCO2 61, pH is 7.28. The patient is on Cardizem 5 mg an hour. She's not receiving any additional IV fluids. We did order a chest x-ray today, and N-terminal proBNP. Labs today include a white count 13.8, hemoglobin 13, hematocrit 40.7 and a platelet count 229,000. Sodium 136, potassium 4.6, chlorides 99, CO2 28, BUN 46, creatinine 1.31. Calcium is 9. Today's chest x-rays consistent with cardi omegaly, small bilateral pleural effusions, and pulmonary vascular congestion. Progress note dated 10/06/2023. 73-year-old female readmitted to the intensive care unit, for fluid overload/CHF. The patient is currently seen today in room 261. She is currently on BiPAP, with settings of 16/6, and 50%. She's getting Cardizem 5 mg an hour. Her chest x-ray shows fluid overload, so I increased her Lasix up milligrams IV push every 8 hours. When she was taken off BiPAP yesterday for a brief period of time, she became very anxious, and very short of breath, and, desaturated, and was placed back on BiPAP. White count 9.4, hemoglobin 12.9, hematocrit 40.1, within normal platelet count. Sodium 135, potassium 4.5, chlorides 99, CO2 29, BUN 49, and creatinine 1.11. Her N-terminal proBNP from yesterday was nearly 8000. Chest x-rays consistent with CHF, with effusion. Reevaluated today on 10/17, patient remains in the ICU, remains on BiPAP, she is now on 45%, and the plan is to transition from BiPAP to a high flow nasal cannula. Patient x-ray is showing slight worsening and worsening pulmonary edema and some recommending to increase her Lasix from 40 mg twice a day to 60 mg twice a day. Her IV fluids remains at KVO. Her overall clinical status remains marginal at best. Again there is worsening chest x-ray. Labs are basically unremarkable with improvement in her creatinine down to 1.13 in spite of aggressive diuresis. Looking at the fluid status, patient is -2 L in the last 24 hours Reevaluated today on 10/18/23, patient remains in the ICU, she is now on 4 L nasal cannula and O2 saturations running between 93 up to 97%. Patient seems to be more alert today, not confused, feeling better clinically, and she denies any shortness of breath. Chest x-ray showed significant improvement in her bilateral interstitial edema nonetheless she continues to have some left pleural effusion not large enough to consider thoracentesis again at this point. Yesterday I have increased her Lasix to 60 mg twice a day, and his chest x-ray is definitely showing improvement. Patient is negative fluid balance about 5 L in the last 2 days. And she continues to diurese, renal functioning is maintaining with creatinine of 1.15 today, steadily improving over the last 5 days in spite of aggressive diuresis. Her metoprolol dose was increased as well as her amiodarone dose increased by cardiology on the case Reevaluated today on 10/19/23, patient remains in, she is now on 4 L nasal cannula, she seems to be tachycardic, and her atrial fibrillation is still not fully controlled, patient has been seen by cardiology and her metoprolol was increased to 150 twice a day and amiodarone was increased to 400 twice a day. Patient is on 4 L but at night she goes on 10/30/45%. Does not seem to be in any distress, she is basically asymptomatic. IV fluids at KVO. And the patient remains on diuretics. Renal function continues to improve creatinine is 1.13 basic metabolic profile is relatively normal bicarb is 35 BUN is 68 WBC 12.8 hemoglobin 13.6 chest x-ray from yesterday showed improved aeration of the lungs has the patient had no change in her diuretics dose Reevaluated today on 10/20/23 patient remains in the ICU, remains on 4 L nasal cannula, doing great, relatively asymptomatic, patient is in good spirits, her IV fluids at KVO, patient is being transferred today to [facility]. In the meantime I am planning to continue her diuretics, and continue antibiotics for UTI. Basic metabolic profile is normal and her BUN is 67 creatinine 1.01 today, no major issues overnight. Patient does have cool left lower extremity and left foot, she has also noted by Doppler. No evidence of acute ischemic changes. Her right foot seems to be warm and slightly swollen. Progress note dated 10/21/2023. 73-year-old female who I last saw on October 06. She was initially admitted to the intensive care unit for fluid overload/CHF. She was previously on BiPAP, and is been in and out of the intensive care unit. Currently, the patient's on 3 L of oxygen by nasal cannula. She is getting saline at 10 mL an hour. The patient appears to be doing much better, and is hoping to be discharged out of the intensive care unit. White count is 14.1, hemoglobin 14, hematocrit 43.6, and platelet count 270,000. Sodium 136, potassium 4.2, chlorides 96, CO2 34, BUN 65, and creatinine 0.91. Objective - Vital Signs Vital signs: Vital Signs Temp 98 F 10/21/23 00:00 Pulse 107 H 10/21/23 04:00 Resp 17 10/21/23 04:00 BP 110/94 10/21/23 04:00 Pulse Ox 95 10/21/23 04:00 FiO2 4 10/19/23 08:00 Intake & Output 10/20/23 10/21/23 10/21/23 18:59 06:59 18:59 Intake Total 156 72 65 Output Total 1575 1050 150 Balance -1419 -978 -85 Weight 139.1 kg Intake: IV 156 72 65 KVO 0.9 NS @ 10 120 60 50 Pressure bags 36 12 15 Output: Urine 1575 1050 150 Other: Voiding Method Indwelling Catheter Indwelling Catheter # Bowel Movements 1 ABP, PAP, CO, CI - Last Documented Arterial Blood Pressure 132/128 - Exam Currently on nasal oxygen at 3 L/m. The patient is awake and alert. HEENT examination is grossly unremarkable. Neck supple. Full range of motion. No adenopathy thyromegaly or neck vein distention. Cardiovascular examination reveals an irregular rhythm and rate. S1-S2 normal. No S3 or S4. No discernible murmur noted. Heart rate 107. Heart sounds are distant. Lungs reveal by basilar crackles. Breath sounds are equal bilaterally. No rhonchi. No wheezes. Saturations are 95 %. Abdomen soft bowel sounds are heard. No masses or tenderness. Extremities are intact. No cyanosis or clubbing. Mild lower extremity edema. Skin is without rash or lesion. Neurologic examination is brief but nonfocal. - Labs CBC & Chem 7: 10/21/23 05:00 10/21/23 05:00 Labs: Abnormal Lab Results - Last 24 Hours (Table) 10/20/23 10/20/23 10/21/23 Range/Units 11:46 20:30 05:00 WBC 14.1 H (3.8-10.6) k/uL Neutrophils # 12.8 H (1.3-7.7) k/uL Lymphocytes # 0.6 L (1.0-4.8) k/uL Sodium (137-145) mmol/L Chloride (98-107) mmol/L Carbon Dioxide (22-30) mmol/L BUN (7-17) mg/dL Glucose (74-99) mg/dL POC Glucose (mg/dL) 141 H 142 H (70-110) mg/dL 10/21/23 10/21/23 10/21/23 Range/Units 05:00 06:45 11:33 WBC (3.8-10.6) k/uL Neutrophils # (1.3-7.7) k/uL Lymphocytes # (1.0-4.8) k/uL Sodium 136 L (137-145) mmol/L Chloride 96 L (98-107) mmol/L Carbon Dioxide 34 H (22-30) mmol/L BUN 65 H (7-17) mg/dL Glucose 157 H (74-99) mg/dL POC Glucose (mg/dL) 149 H 144 H (70-110) mg/dL Assessment and Plan Assessment: Acute hypoxemic respiratory failure, secondary to worsening systolic congestive heart failure. History of chronic atrial fibrillation, with rapid ventricular response. Bilateral pleural effusions, secondary to CHF. Escherichia coli urinary tract infection, resolved. History of hypertension. History of hyperlipidemia. History of pulmonary embolism. History of hypothyroidism. History of osteoarthritis. Plan: Plan dated 09/30/2023. The patient is seen today in the intensive care unit, room 255. She is on BiPAP currently, and I've asked the nurses, to inform respiratory therapy, to wean the patient's FiO2 down, as she improves. The patient has received additional Lasix, 40 mg earlier, and another 40 mg IV push now. The patient was placed on 40 mg of Lasix, IV push every 8 hours. We will continue to follow and make recommendations along the way. Labs, x-rays, and medications are reviewed. Prognosis is guarded. Plan dated 10/01/2023. Patient is seen in the intensive care unit, room 255. Currently, she is on high flow nasal O2 at 13 L. In addition, she is on BiPAP, intermittently at 16/6, and 60%. Because of her atrial fibrillation and RVR, she is currently on Cardiz em 50 mg an hour. On auscultation, she has bibasilar crackles, and, she is in atrial fibrillation. She has lower extremity edema as well. Labs, x-rays, medications are reviewed. We will continue to follow and make recommendations along the way. Her prognosis is certainly guarded. Plan dated 10/02/2023. The patient is seen in room 255. Currently, she is on room air, and saturations are 91%. Her nurse will probably place her back on oxygen at 2 L. The patient still having atrial fibrillation with rapid ventricular response, and for that reason, she is on Cardizem at 10 mg an hour, and amiodarone at 0.5 mg/m. Her examination still reveals evidence of bibasilar crackles, and lower extremity edema. Labs, x-rays, and medications are reviewed. The patient's overall prognosis remains guarded. She obviously cannot be the ICU at this time. Plan dated 10/03/2023. The patient is seen today in room 255. She's currently on 2 L. She continues on Cardizem for atrial fibrillation and RVR, 10 mg an hour. She's not getting any additional IV fluids. She didn't use BiPAP last night, for about an hour and a half. Her BiPAP settings are 16/6 and 45%. She may need to use it more than she's currently using it. Labs, x-rays, medications are reviewed. Overall prognosis remains guarded. We will continue to follow the patient, and make recommendations along the way. Plan dated 10/04/2023. The patient is seen today in room 255. She remains on 2 L of oxygen. She's on a Cardizem drip at 10 mg an hour. He'll be turned down to 5 mg an hour. She does continue on IV Lasix. Her lower extremity edema is much improved. Labs, x-rays, and medications are reviewed. We will continue to follow the patient, and make recommendations along the way. No additional comments at this time. Her overall prognosis remains guarded. She did use of BiPAP last night, which is really seem to help. We encourage her to use it nightly, as it will reduce venous return, reduce preload, and help her with her congestive heart failure. Plan dated 10/05/2023. The patient is seen today in room 261. She was in the intensive care unit, for the last few days, and no doubt yesterday. Unfortunately, because of worsening respiratory status and CHF, she was transferred back to the intensive care unit, sometime early this morning. Currently, the patient's on BiPAP, with settings of 16/6 and 60%. Her gases have been reviewed. She continues on Cardizem 5 mg an hour. Labs, x-rays, and medications are reviewed. We will continue to follow and make recommendations along the way. Prognosis is certainly very guarded. Plan dated 10/06/2023. Patient is again seen today in the intensive care unit, room 261. She has ongoing respiratory failure secondary to CHF. In addition, she has atrial fibrillation, with a rapid ventricular response. She continues on BiPAP, at 16/6, and 50%. She also continues on Cardizem, 5 mg an hour. Lasix is increased to 40 mg IV push, every 8 hours. When she was taken off BiPAP yesterday, she did poorly. Labs, x-rays, and medications are reviewed. We will continue to follow the patient, and make recommendations along the way. Her overall prognosis remains very guarded. Plan dated 10/21/2023. The patient appears to be doing relatively well. The patient is stable to be transferred out of the intensive care unit. Currently, she is on 3 L of oxygen. She's getting saline at 10 mL an hour. Labs, x-rays, medications are reviewed. The patient is in good spirits, and is alert and awake. We will continue to follow and make recommendations along the way. Prognosis is certainly guarded, given the fact that she's been in the hospital now for 25 days. Time with Patient: Less than 30
--- NOTE | 2023-10-21 12:56 | P.PN ---
Subjective Progress Note Date: 10/21/23 This is a 73-year-old female with past medical history significant for atrial fibrillation, PE, status post EKOS 02/2022, hypertension, hypothyroidism admitted with atrial fibrillation with RVR and multiple other medical issues.Evaluated and treated by cardiology. Presented to the hospital with complaints of heart palpitations, hypertension , shortness of breath 1 week.Positive orthopnea , reports sleeping sitting up in a recliner as well as living downstairs in her home to avoid climbing stairs. Cardizem drip initiated, rate improving. Cardiology consult in place. Troponins negative 3 , proBNP pending .EKG rate atrial fibrillation with RVR heart rate 132 . Echo reported normal LV function, mild pulmonary hypertension, moderate mitral and moderate tricuspid regurgitation .Chest x-ray no acute pulmonary process. UA reports positive nitrates, many bacteria, small leukocytes, urine culture pending. 09/30/2023 recently placed on 2 L nasal cannula, then increased to 4 L, maintaining O2 sats in the low 90s .complains of mild increased shortness of breath, which she reports started actually during the night. She has been on Lasix IV push every 12 hours, 24-hour I&O reflecting a negative fluid balance. Renal function mildly worsened, BUN 37, creatinine 1.26. Sodium 125 .Maintained on Rocephin for acute UTI. Afebrile, WBC 13.7. Blood sugars controlled. 10/01/23 yesterday developed worsening pulmonary edema, transfer to ICU. Chest x-ray at that time reported worsening of large perihilar consolidation noted greater on the right, pulmonary edema versus diffuse pneumonia. Received additional Lasix IV push, frequency increased yesterday diuresed well with 24- hour I&O reflecting a negative fluid balance. Maintained on BiPAP throughout the night, placed on 13 L nasal cannula to facilitate patient's diet intake this morning. Chest x-ray repeated this morning reporting improving bilateral areas of consolidation. Telemetry sinus rhythm, continues on Cardizem drip, t achycardic with heart rates in the 130s to 140s. Denies chest pain, palpitations. Afebrile, normal WBC. BUN 37, creatinine 1.30. Blood sugars controlled. 10/07/23 used BiPAP overnight, currently maintaining O2 sats in the 90s on 6 L nasal cannula. Chest x-ray reported bilateral pleural effusions, chest ultrasound reported right pleural effusion 6.8 cm, left pleural effusion 7.5 cm with both marked for possible thoracentesis. Diuresing on Lasix IV push with 24-hour I&O reflecting a negative fluid balance, but continues to have significant lower extremity edema. Telemetry atrial fibrillation with heart rates up to 120s. Reports palpitations, no chest pain. Evaluated by cardiology, discussing RICO with cardioversion. 10/08/23 Eliquis on hold. status post right thoracentesis with 1200 MLS turbid pleural drainage aspirated. Tolerated procedure well. Postprocedure x-ray reported no pneumothorax, bilateral lower lobe infiltrate and small left effusion. Using BiPAP at night. Currently seem on Lasix IV push with 24-hour I&O reflecting a negative fluid balance. Telemetry atrial fibrillation with heart rates ranging from 90 to 110s. Maintaining O2 in the high 90s on 4-5 L nasal cannula. Bicarb 34, BUN 41, creatinine 1.03. 10/09/2023 chest x-ray reporting bilateral lower lobe infiltrate and small left effusion/no sizable pleural effusion on the right/no pneumothorax. Status post left thoracentesis this morning with 550 MLS turbid pleural drainage aspirated. Tolerated procedure well. Postprocedure chest x-ray reported no pneumothorax. Maintained on oral antiarrhythmics ,telemetry reporting atrial fibrillation. Cardioversion pending. Afebrile, normal WBC. Continues diuresing well on Lasix IV push with 24-hour I&O reflecting a negative fluid balance. sodium 136, potassium 3.8, bicarb 37, BUN 38, creatinine 0.97. Maintaining O2 sats in the 90s on 3 L nasal cannula. 10/10/2023 Eliquis resumed yesterday after thoracentesis. Pleural fluid Cytology pending . Telemetry atrial fibrillation, heart rate better controlled today on oral amiodarone, metoprolol, Cardizem. Cardioversion pending. BiPAP throughout the night. Denies chest pain, palpitations or shortness of breath. Maintaining O2 sats in the 90s on 2 L nasal cannula. Continues diuresing well on Lasix IV push with 24-hour I&O reflecting a negative fluid balance. Afebrile, normal WBC. Potassium 3.6, receiving replacement. BUN 36, creatinine 1.1 10/11/2023 BiPAP for short while during the night. Currently maintaining O2 sat in the 90s on room air. Continues diuresing well on Lasix IV push with 24-hour I&O reflecting a negative fluid balance. BUN 34, creatinine 1.24. Pleural fluid cytology pending. Cardizem discontinued, continues on amiodarone with metoprolol increased, A. fib controlled. Afebrile, normal WBC. Reports she ambulated yesterday, tolerated exertion well, O2 sat on room air after ambulation 95%. 10/14/2023 intubated, FiO2 40%/PEEP recently decreased to 8. Chest x-ray reported low lung volumes with grossly stable lung parenchyma opacities predomi nantly in lung bases, layering bilateral pleural effusions, Continues on diprovan, levophed and IV fluid hydration with saline 100 MLS an hour. Right pleural fluid cytology negative for malignancy. BNP 9280. BUN 62, creatinine increased to 2.39, lasix resumed. Continues on cefepime. Afebrile, WBC 24.6. Telemetry atrial fibrillation with RVR, antiarrhythmics adjusted per cardiology. 10/15/23 remains vent dependent with FiO2 40%/+8 of PEEP. Continues on levothyroid and diprovan. Maintained on empiric cefepime. Chest x-ray reporting stable; per pulmonary, pneumonia less likely. WBC decreased to 14.7. BUN 62, creatinine improving, decreased to 1.58. Reports patient follows commands. Echo reported suboptimal , reporting mild LV dysfunction. Telemetry atrial fibrillation with RVR, on oral amiodarone, beta jorge alberto increased with digoxin added to med regimen. Lasix resumed with improving urine output. 10/16/2023 Patient is seen and evaluated in follow-up continues in the ICU with cardiology and pulmonary following maintained on mechanical ventilation with an FiO2 of 40% and PEEP is 8. Undergoing sedation holidays and assessing for possible extubation today. Chest x-ray today shows continued left lung atelectasis with pleural effusions and patient is maintained on IV Lasix twice daily. Per nursing staff patient is awake and following commands and tolerating sedation holiday. Plan for extubation today. Heart rate continues to be elevated and maintained on anticoagulation and amiodarone. Adjustments to medications per cardiology. Patient is afebrile maintained on cefepime for UTI and has been adequately treated and once transferred from ICU may not require continued antibiotic therapy. 10/17. Patient seen and examined. Currently on BiPAP. States she is feeling better. Blood work done this morning showed WBC 12.2, hemoglobin 13.2, platelet count 282, sodium 100, potassium 4, BUN 69, creatinine 1.13. Chest x-ray done this morning showed worsening pulmonary edema. 10/18. Patient seen and examined. Currently on nasal cannula. States she feels much better. States swelling of lower extremities has improved. Levaquin this morning showed WBC 11, hemoglobin 13.3, platelet count 305, sodium 1:30, potassium 4.7, BUN 72, crit 1.15 10/19. Patient seen and examined. Currently sitting upright in the chair currently on nasal cannula oxygen at 4 L, heart rate was elevated so dose of amiodarone and Lopressor were adjusted. 10/20. Patient seen and examined. Currently on 3 L of oxygen. Breathing is improving, still has swelling of lower extremities. 10/21. Patient seen and examined. States she is noticing improvement every day. Denies any shortness of breath at rest, get short of breath on exertion. Denies any cough. Still has swelling of lower extremities REVIEW OF SYSTEMS: CONSTITUTIONAL: No fever, no malaise,. CARDIOVASCULAR: No chest pain, no palpitations, no syncope. PULMONARY: Still gets short of breath on exertion GASTROINTESTINAL: No diarrhea, no nausea, no vomiting, no abdominal pain. NEUROLOGICAL: No headaches, no weakness, PHYSICAL EXAMINATION: GENERAL: The patient is alert and oriented x3, chronically ill-looking HEENT: Pupils are round and equally reacting to light. EOMI. No scleral icterus. No conjunctival pallor. Normocephalic, atraumatic. No pharyngeal erythema. No thyromegaly. CARDIOVASCULAR: S1 and S2 present. No murmurs, rubs, or gallops. Tachycardic, irregular in rate and rhythm PULMONARY: Diminished breath sounds at the bases bilaterally, no wheezing, crackles audible at the bases ABDOMEN: Soft, nontender, nondistended, normoactive bowel sounds. No palpable organomegaly. MUSCULOSKELETAL: No joint swelling or deformity. EXTREMITIES: 1+ pitting edema of lower extremities bilaterally NEUROLOGICAL: Gross neurological examination did not reveal any focal deficits. SKIN: No rashes. Assessment and plan Chronic Atrial fibrillation with rapid ventricular rate Secondary Hypotension, pressor dependent, improved and off pressor support Acute on chronic CHF exacerbation, diastolic dysfunction, ef 55-60%. Bilateral pleural effusions status post bilateral thoracentesis,transudative. Cytology negative for malignancy. Possible underlying pneumonia, felt to be less likely as per pulmonary. Acute hypoxic respiratory failure , on mechanical ventilator-dependent ,secondary to the above Acute UTI, E. coli Acute on chronic renal failure, stage III Pulmonary embolism bilaterally status post EKOS, 03/14/2022 Pulmonary hypertension Moderate mitral and tricuspid regurgitation Hypothyroidism Hypertension, history of Hyperlipidemia Osteoarthritis with history right knee placement in July 2022. Morbid obesity, BMI 53.1 Monitor vital signs Monitor CBC Monitor CMP Continue telemetry monitoring Encourage use of incentive spirometer Aggressive bronchopulmonary hygiene Continue use of BiPAP as needed Strict I's and O's, daily Continue Lopressor 150 mg twice a day Continue digoxin and amiodarone 200 mg twice a day Continue Lasix IV 60 mg every 12 Continue oral Cipro Critical care following Cardiology following Possible transfer out of ICU Labs and medication were reviewed.. Continue same treatment. Continue with symptomatic treatment. Resume home medication. Monitor labs and vitals. DVT and GI prophylaxis. Further recommendations as per clinical course of the patient Dictation was produced using [employer] dictation software. please excuse any grammatical, word or spelling errors. Objective - Vital Signs Vital signs: Vital Signs Temp 98 F 10/21/23 00:00 Pulse 114 H 10/21/23 11:55 Resp 17 10/21/23 04:00 BP 110/94 10/21/23 04:00 Pulse Ox 95 10/21/23 04:00 FiO2 4 10/19/23 08:00 Intake & Output 10/20/23 10/21/23 10/21/23 18:59 06:59 18:59 Intake Total 156 72 65 Output Total 1575 1050 150 Balance -1419 -978 -85 Weight 139.1 kg Intake: IV 156 72 65 KVO 0.9 NS @ 10 120 60 50 Pressure bags 36 12 15 Output: Urine 1575 1050 150 Other: Voiding Method Indwelling Catheter Indwelling Catheter # Bowel Movements 1 ABP, PAP, CO, CI - Last Documented Arterial Blood Pressure 132/128 - Labs CBC & Chem 7: 10/21/23 05:00 10/21/23 05:00 Labs: Abnormal Lab Results - Last 24 Hours (Table) 10/20/23 10/21/23 10/21/23 Range/Units 20:30 05:00 05:00 WBC 14.1 H (3.8-10.6) k/uL Neutrophils # 12.8 H (1.3-7.7) k/uL Lymphocytes # 0.6 L (1.0-4.8) k/uL Sodium 136 L (137-145) mmol/L Chloride 96 L (98-107) mmol/L Carbon Dioxide 34 H (22-30) mmol/L BUN 65 H (7-17) mg/dL Glucose 157 H (74-99) mg/dL POC Glucose (mg/dL) 142 H (70-110) mg/dL 10/21/23 10/21/23 Range/Units 06:45 11:33 WBC (3.8-10.6) k/uL Neutrophils # (1.3-7.7) k/uL Lymphocytes # (1.0-4.8) k/uL Sodium (137-145) mmol/L Chloride (98-107) mmol/L Carbon Dioxide (22-30) mmol/L BUN (7-17) mg/dL Glucose (74-99) mg/dL POC Glucose (mg/dL) 149 H 144 H (70-110) mg/dL
[2023-10-21 16:46] LABS: Glucose,Whole Blood 122 mg/dL (70-110)
[2023-10-21 20:08] LABS: Glucose,Whole Blood 144 mg/dL (70-110)
[2023-10-21] MEDS: ATORVASTATIN 80 MG TAB PO SCH (20:23)
[2023-10-22] MEDS: IPRATROPIUM-ALBUTEROL 3 ML NEB INHALATION SCH ×7 (00:52→23:51)
--- NOTE | 2023-10-22 01:44 | PN ---
PROGRESS NOTE HISTORY: Mariel is a 73-year-old lady who is admitted to hospital with atrial fibrillation with rapid ventricular rate. Heart rate is better controlled on multiple medications and she is feeling better. Remains in atrial fibrillation with controlled ventricular rate. PHYSICAL EXAMINATION: VITAL SIGNS: On exam, heart rate is 100 beats per minute, blood pressure 110/94, respiratory rate is 18. CHEST: Reveals diminished air entry at the bases. HEART: Reveals first and second sounds. Irregular rhythm. ABDOMEN: Soft. EXTREMITIES: Exam of extremities did not reveal any edema. Peripheral pulses are felt. MEDICATIONS: The patient is currently on Eliquis 5 b.i.d., Cordarone 200 b.i.d., Lanoxin 0.125, IV Lasix insulin, Synthroid, Lopressor 150 b.i.d. ASSESSMENT: 1. Atrial fibrillation with poorly controlled ventricular rate. 2. Congestive heart failure. PLAN: The patient will continue current medications. MMODL / IJN: [id number] /
[2023-10-22 04:28] LABS: HCT 44.9 % (34.0-46.0); HGB 14.3 gm/dL (11.4-16.0); MCH 31.2 pg (25.0-35.0); MCHC 31.9 g/dL (31.0-37.0); MCV 97.6 fL (80.0-100.0); Mean Platelet Volume 7.6; Platelet Count 249 k/uL (150-450); RDW 13.9 % (11.5-15.5); WBC 14.3 k/uL (3.8-10.6)
[2023-10-22 04:40] LABS: ALT 157 U/L (4-34); AST 50 U/L (14-36); African American GFR (CKD) 62 (>60 ml/min/1.73 sqM); Alkaline Phosphatase 77 U/L (38-126); Anion Gap 5 mmol/L; Blood Urea Nitrogen 57 mg/dL (7-17); Calcium 8.4 mg/dL (8.4-10.2); Carbon Dioxide 37 mmol/L (22-30); Chloride 95 mmol/L (98-107); Glucose 161 mg/dL (74-99); Non-African American GFR(CKD) 53 (>60 ml/min/1.73 sqM); Potassium 4.2 mmol/L (3.5-5.1); Sodium 137 mmol/L (137-145); Total Bilirubin 1.1 mg/dL (0.2-1.3); Total Protein 5.4 g/dL (6.3-8.2)
[2023-10-22] MEDS: LEVOTHYROXINE 88 MCG TAB PO SCH (06:03)
[2023-10-22 06:35] LABS: Glucose,Whole Blood 134 mg/dL (70-110)
[2023-10-22] MEDS: INSULIN ASPART (NovoLOG) 100 UNIT/ML VIAL SQ SCH ×3 (06:35→21:54)
[2023-10-22] MEDS: METOPROLOL TARTRATE 50 MG TAB PO SCH ×2 (09:01→21:55)
[2023-10-22] MEDS: AMIODARONE 200 MG TAB PO SCH ×2 (09:02→21:55)
[2023-10-22] MEDS: CIPROFLOXACIN HCL 500 MG TAB PO SCH ×2 (09:02→22:28)
[2023-10-22] MEDS: APIXABAN 5 MG TAB PO SCH ×2 (09:02→21:54)
[2023-10-22] MEDS: guaiFENesin 600 MG TABLET.ER PO SCH ×2 (09:03→21:55)
[2023-10-22] MEDS: DIGOXIN 125 MCG TAB PO SCH (09:03)
[2023-10-22] MEDS: DOCUSATE 100 MG CAP PO SCH ×2 (09:03→21:55)
[2023-10-22] MEDS: methylPREDNISolone SOD SUCCI 40 MG/ML 1 ML VIAL IV SCH ×2 (09:04→21:55)
[2023-10-22] MEDS: PANTOPRAZOLE 40 MG/10 ML VIAL IVP SCH (09:04)
[2023-10-22] MEDS: FUROSEMIDE 10 MG/ML 10 ML VIAL IV SCH ×2 (10:49→21:55)
[2023-10-22] MEDS: polyethylene glycoL 3350 17 GM POWD.PACK PO SCH (10:50)
--- NOTE | 2023-10-22 10:54 | P.PN ---
Subjective Progress Note Date: 10/22/23 Principal diagnosis: Shortness of breath. Pulmonary consult dated 09/30/2023. 73-year-old female who presented to the emergency department on September 26, complaining of arrhythmias, and palpitations. The patient does have a history of hypertension, atrial fibrillation, hyperlipidemia, pulmonary embolism, and hypothyroidism. The patient apparently was having some lower extremity edema, shortness of breath, and orthopnea. She also had mild exertional dyspnea. The patient denied any chest pain or chest discomfort. She was seen by the ER physician, and admitted with a diagnosis of atrial fibrillation, CHF, and urinary tract infection. Today, a rapid response was called on this patient, and, R ICU charge nurse, who evaluated the patient, and thought the patient should come down to the intensive care unit, for further monitoring and management. She was given some IV Lasix, and placed on BiPAP, with settings of 16/6, and 100%. She was seen in the intensive care unit, room 255. She was sitting up in bed, with mild respiratory distress, on the BiPAP device. White count was 13.7, hemoglobin 14.5, hematocrit 44.4, and a normal platelet count. Sodium 135, potassium 3.9, chlorides 96, CO2 27, anion gap 12, BUN 37, and creatinine 1.26. N-terminal proBNP, on September 29, was 7020. The patient had chest x-rays on the and on the . Today's chest x-ray shows worsening pulmonary edema. Progress note dated 10/01/2023. 73-year-old female seen again in intensive care unit, room 255. The patient was admitted with a diagnosis of acute hypoxemic respiratory failure, secondary to CHF, as well as atrial fibrillation with RVR. The patient is currently on high flow nasal O2, at 13 L. In addition, the patient uses BiPAP intermittently at 16/6, and 60%. For her atrial fibrillation and RVR, the patient's on Cardizem 15 mg an hour. Clinically, she's starting to feel a bit better. White count 9.4, hemoglobin 14, hematocrit 43.1, and platelet count 223,000. Sodium 136, potassium 4.1, chlorides 96, CO2 29, BUN 37, and creatinine 1.30. Calcium is 9.2. Chest x-ray shows improved vascular congestion. Progress note dated 10/02/2023. 73-year-old female seen in the intensive care unit, room 255. She was admitted initially with a diagnosis of acute hypoxemic respiratory failure secondary to CHF, as well as atrial fibrillation with rapid ventricular response. The patient is currently on room air, with saturations of 91%. Unfortunately, she continues on Cardizem at 10 mg an hour, and amiodarone at 0.5 mg/m. White count 9, hemoglobin 12.8, hematocrit 39.4, within normal platelet count. Sodium 136, potassium 4.3, chloride 96, CO2 34, BUN 41, creatinine 1.12. Glucose is 112. Urine culture is showing evidence of Escherichia coli. Chest x-ray shows improvement in the patient's pulmonary vascular status. Progress note dated 10/03/2023. 73-year-old female seen today in room 255, intensive care unit. She was admitted with a diagnosis of acute hypoxemic respiratory failure, secondary to CHF, as well as atrial fibrillation, with rapid ventricular response. Currently, the patient is on 2 L of oxygen. She's on a Cardizem drip at 10 mg an hour. She's not receiving any IV fluids additionally. The patient that she is BiPAP, intermittently, with settings of 16/6, and 45%. She use BiPAP last night for about an hour and a half. She needs to be using it more frequently. White count 9.4, hemoglobin 12.9, hematocrit 39.2, and platelet count 187,000. Sodium 136, potassium 4.1, chlorides 97, CO2 32, BUN 36, creatinine 1.06. Gluc ose 116. Calcium is 9. Chest x-ray shows improved pulmonary vascular status. Progress note dated 10/04/2023. 73-year-old female seen again in the intensive care unit, room 255. Currently, she is on 2 L of oxygen. She's on a Cardizem drip at 10 mg an hour, to be dropped on the 5 mg an hour. She did use of BiPAP last night, for many hours, and it seemed to help. Her settings include 16/6, and 45%. She currently remains in atrial fibrillation with a rate of 128 bpm. Labs today include a s odium 138, potassium 4.1, chlorides 98, CO2 31, BUN 40, and creatinine 1.08. Glucose 116. Calcium is 9.1. No chest x-ray today. Progress note dated 10/05/2023. 73-year-old female who was sent out of the intensive care unit yesterday, and came back into the intensive care unit, sometime early this morning. She apparently developed worsening shortness of breath, was severely anxious, receive some benzodiazepine, and, required BiPAP therapy. I was called by the nurse who went to the rapid response, and we decided to move the patient back to the intensive care unit. Currently, she is seen in room 261. She is on BiPAP, with settings of 16/6 and 60%. Gases done on 100% show pO2 of 66, pCO2 61, pH is 7.28. The patient is on Cardizem 5 mg an hour. She's not receiving any additional IV fluids. We did order a chest x-ray today, and N-terminal proBNP. Labs today include a white count 13.8, hemoglobin 13, hematocrit 40.7 and a platelet count 229,000. Sodium 136, potassium 4.6, chlorides 99, CO2 28, BUN 46, creatinine 1.31. Calcium is 9. Today's chest x-rays consistent with cardi omegaly, small bilateral pleural effusions, and pulmonary vascular congestion. Progress note dated 10/06/2023. 73-year-old female readmitted to the intensive care unit, for fluid overload/CHF. The patient is currently seen today in room 261. She is currently on BiPAP, with settings of 16/6, and 50%. She's getting Cardizem 5 mg an hour. Her chest x-ray shows fluid overload, so I increased her Lasix up milligrams IV push every 8 hours. When she was taken off BiPAP yesterday for a brief period of time, she became very anxious, and very short of breath, and, desaturated, and was placed back on BiPAP. White count 9.4, hemoglobin 12.9, hematocrit 40.1, within normal platelet count. Sodium 135, potassium 4.5, chlorides 99, CO2 29, BUN 49, and creatinine 1.11. Her N-terminal proBNP from yesterday was nearly 8000. Chest x-rays consistent with CHF, with effusion. Reevaluated today on 10/17, patient remains in the ICU, remains on BiPAP, she is now on 45%, and the plan is to transition from BiPAP to a high flow nasal cannula. Patient x-ray is showing slight worsening and worsening pulmonary edema and some recommending to increase her Lasix from 40 mg twice a day to 60 mg twice a day. Her IV fluids remains at KVO. Her overall clinical status remains marginal at best. Again there is worsening chest x-ray. Labs are basically unremarkable with improvement in her creatinine down to 1.13 in spite of aggressive diuresis. Looking at the fluid status, patient is -2 L in the last 24 hours Reevaluated today on 10/18/23, patient remains in the ICU, she is now on 4 L nasal cannula and O2 saturations running between 93 up to 97%. Patient seems to be more alert today, not confused, feeling better clinically, and she denies any shortness of breath. Chest x-ray showed significant improvement in her bilateral interstitial edema nonetheless she continues to have some left pleural effusion not large enough to consider thoracentesis again at this point. Yesterday I have increased her Lasix to 60 mg twice a day, and his chest x-ray is definitely showing improvement. Patient is negative fluid balance about 5 L in the last 2 days. And she continues to diurese, renal functioning is maintaining with creatinine of 1.15 today, steadily improving over the last 5 days in spite of aggressive diuresis. Her metoprolol dose was increased as well as her amiodarone dose increased by cardiology on the case Reevaluated today on 10/19/23, patient remains in, she is now on 4 L nasal cannula, she seems to be tachycardic, and her atrial fibrillation is still not fully controlled, patient has been seen by cardiology and her metoprolol was increased to 150 twice a day and amiodarone was increased to 400 twice a day. Patient is on 4 L but at night she goes on 10/30/45%. Does not seem to be in any distress, she is basically asymptomatic. IV fluids at KVO. And the patient remains on diuretics. Renal function continues to improve creatinine is 1.13 basic metabolic profile is relatively normal bicarb is 35 BUN is 68 WBC 12.8 hemoglobin 13.6 chest x-ray from yesterday showed improved aeration of the lungs has the patient had no change in her diuretics dose Reevaluated today on 10/20/23 patient remains in the ICU, remains on 4 L nasal cannula, doing great, relatively asymptomatic, patient is in good spirits, her IV fluids at KVO, patient is being transferred today to [facility]. In the meantime I am planning to continue her diuretics, and continue antibiotics for UTI. Basic metabolic profile is normal and her BUN is 67 creatinine 1.01 today, no major issues overnight. Patient does have cool left lower extremity and left foot, she has also noted by Doppler. No evidence of acute ischemic changes. Her right foot seems to be warm and slightly swollen. Progress note dated 10/21/2023. 73-year-old female who I last saw on October 06. She was initially admitted to the intensive care unit for fluid overload/CHF. She was previously on BiPAP, and is been in and out of the intensive care unit. Currently, the patient's on 3 L of oxygen by nasal cannula. She is getting saline at 10 mL an hour. The patient appears to be doing much better, and is hoping to be discharged out of the intensive care unit. White count is 14.1, hemoglobin 14, hematocrit 43.6, and platelet count 270,000. Sodium 136, potassium 4.2, chlorides 96, CO2 34, BUN 65, and creatinine 0.91. Progress note dated 10/22/2023. 3-year-old female seen yesterday, October 21, and room 264, intensive care unit. She was initially admitted to the intensive care unit, for fluid overload,/CHF. Currently, the patient is on 2 L of oxygen. She's not receiving any IV fluids. She is currently not using BiPAP. White count is 14.3, hemoglobin 14.3, hematocrit 44.9, and platelet count 249,000. Sodium 137, potassium 4.2, chlorides 95, CO2 37, BUN 57, and creatinine 1.03. Albumin is 3. Total protein is 5.4. No recent chest x-ray to report. Objective - Vital Signs Vital signs: Vital Signs Temp 98.2 F 10/22/23 04:00 Pulse 105 H 10/22/23 09:29 Resp 17 10/22/23 04:00 BP 122/88 10/22/23 04:00 Pulse Ox 96 10/22/23 09:13 FiO2 4 10/19/23 08:00 Intake & Output 10/21/23 10/22/23 10/22/23 18:59 06:59 18:59 Intake Total 521 Output Total 1675 250 Balance -1154 -250 Weight 139.3 kg Intake: IV 151 KVO 0.9 NS @ 10 130 Pressure bags 21 Oral 370 Output: Urine 1675 250 Other: Voiding Method Indwelling Catheter Indwelling Catheter # Bowel Movements 1 ABP, PAP, CO, CI - Last Documented Arterial Blood Pressure 116/63 - Exam Currently on nasal oxygen at 2 L/m. The patient is awake and alert. HEENT examination is grossly unremarkable. Neck supple. Full range of motion. No adenopathy thyromegaly or neck vein distention. Cardiovascular examination reveals an irregular rhythm and rate. S1-S2 normal. No S3 or S4. No discernible murmur noted. Heart rate 100. Heart sounds are distant. Lungs reveal by basilar crackles. Breath sounds are equal bilaterally. No rhonchi. No wheezes. Saturations are 96 %. Abdomen soft bowel sounds are heard. No masses or tenderness. Extremities are intact. No cyanosis or clubbing. Mild lower extremity edema. Skin is without rash or lesion. Neurologic examination is brief but nonfocal. - Labs CBC & Chem 7: 10/22/23 03:48 10/22/23 03:48 Labs: Abnormal Lab Results - Last 24 Hours (Table) 10/21/23 10/21/23 10/21/23 Range/Units 11:33 16:45 20:06 WBC (3.8-10.6) k/uL Chloride (98-107) mmol/L Carbon Dioxide (22-30) mmol/L BUN (7-17) mg/dL Glucose (74-99) mg/dL POC Glucose (mg/dL) 144 H 122 H 144 H (70-110) mg/dL AST (14-36) U/L ALT (4-34) U/L Total Protein (6.3-8.2) g/dL Albumin (3.5-5.0) g/dL 10/22/23 10/22/23 10/22/23 Range/Units 03:48 03:48 06:34 WBC 14.3 H (3.8-10.6) k/uL Chloride 95 L (98-107) mmol/L Carbon Dioxide 37 H (22-30) mmol/L BUN 57 H (7-17) mg/dL Glucose 161 H (74-99) mg/dL POC Glucose (mg/dL) 134 H (70-110) mg/dL AST 50 H (14-36) U/L ALT 157 H (4-34) U/L Total Protein 5.4 L (6.3-8.2) g/dL Albumin 3.0 L (3.5-5.0) g/dL Assessment and Plan Assessment: Acute hypoxemic respiratory failure, secondary to worsening systolic congestive heart failure. History of chronic atrial fibrillation, with rapid ventricular response. Bilateral pleural effusions, secondary to CHF. Escherichia coli urinary tract infection, resolved. History of hypertension. History of hyperlipidemia. History of pulmonary embolism. History of hypothyroidism. History of osteoarthritis. Plan: Plan dated 09/30/2023. The patient is seen today in the intensive care unit, room 255. She is on BiPAP currently, and I've asked the nurses, to inform respiratory therapy, to wean the patient's FiO2 down, as she improves. The patient has received additional Lasix, 40 mg earlier, and another 40 mg IV push now. The patient was placed on 40 mg of Lasix, IV push every 8 hours. We will continue to follow and make recommendations along the way. Labs, x-rays, and medications are reviewed. Prognosis is guarded. Plan dated 10/01/2023. Patient is seen in the intensive care unit, room 255. Currently, she is on high flow nasal O2 at 13 L. In addition, she is on BiPAP, intermittently at 16/6, and 60%. Because of her atrial fibrillation and RVR, she is currently on Cardizem 50 mg an hour. On auscultation, she has bibasilar crackles, and, she is in atrial fibrillation. She has lower extremity edema as well. Labs, x- rays, medications are reviewed. We will continue to follow and make recommendations along the way. Her prognosis is certainly guarded. Plan dated 10/02/2023. The patient is seen in room 255. Currently, she is on room air, and saturations are 91%. Her nurse will probably place her back on oxygen at 2 L. The patient still having atrial fibrillation with rapid ventricular response, and for that reason, she is on Cardizem at 10 mg an hour, and amiodarone at 0.5 mg/m. Her examination still reveals evidence of bibasilar crackles, and lower extremity edema. Labs, x-rays, and medications are reviewed. The patient's overall prognosis remains guarded. She obviously cannot be the ICU at this time. Plan dated 10/03/2023. The patient is seen today in room 255. She's currently on 2 L. She continues on Cardizem for atrial fibrillation and RVR, 10 mg an hour. She's not getting any additional IV fluids. She didn't use BiPAP last night, for about an hour and a half. Her BiPAP settings are 16/6 and 45%. She may need to use it more than she's currently using it. Labs, x-rays, medications are reviewed. Overall prognosis remains guarded. We will continue to follow the patient, and make recommendations along the way. Plan dated 10/04/2023. The patient is seen today in room 255. She remains on 2 L of oxygen. She's on a Cardizem drip at 10 mg an hour. He'll be turned down to 5 mg an hour. She does continue on IV Lasix. Her lower extremity edema is much improved. Labs, x-rays, and medications are reviewed. We will continue to follow the patient, and make recommendations along the way. No additional comments at this time. Her overall prognosis remains guarded. She did use of BiPAP last night, which is really seem to help. We encourage her to use it nightly, as it will reduce venous return, reduce preload, and help her with her congestive heart failure. Plan dated 10/05/2023. The patient is seen today in room 261. She was in the intensive care unit, for the last few days, and no doubt yesterday. Unfortunately, because of worsening respiratory status and CHF, she was transferred back to the intensive care unit, sometime early this morning. Currently, the patient's on BiPAP, with settings of 16/6 and 60%. Her gases have been reviewed. She continues on Cardizem 5 mg an hour. Labs, x-rays, and medications are reviewed. We will continue to follow and make recommendations along the way. Prognosis is certainly very guarded. Plan dated 10/06/2023. Patient is again seen today in the intensive care unit, room 261. She has ongoing respiratory failure secondary to CHF. In addition, she has atrial fibrillation, with a rapid ventricular response. She continues on BiPAP, at 16/6, and 50%. She also continues on Cardizem, 5 mg an hour. Lasix is increased to 40 mg IV push, every 8 hours. When she was taken off BiPAP yesterday, she did poorly. Labs, x-rays, and medications are reviewed. We will continue to follow the patient, and make recommendations along the way. Her overall prognosis remains very guarded. Plan dated 10/21/2023. The patient appears to be doing relatively well. The patient is stable to be transferred out of the intensive care unit. Currently, she is on 3 L of oxygen. She's getting saline at 10 mL an hour. Labs, x-rays, medications are reviewed. The patient is in good spirits, and is alert and awake. We will continue to follow and make recommendations along the way. Prognosis is certainly guarded, given the fact that she's been in the hospital now for 25 days. Plan dated 10/22/2023. The patient appears to be doing better. She seen today in room 264. She's been weaned down to 2 L. Saturations are in the mid 90s. Labs, x-rays, and medications are reviewed. The patient's overall prognosis remains guarded, but the patient can be transferred out of the intensive care unit. She is alert and awake. Time with Patient: Less than 30
[2023-10-22 11:57] LABS: Glucose,Whole Blood 139 mg/dL (70-110)
--- NOTE | 2023-10-22 15:44 | P.PN ---
Subjective Progress Note Date: 10/22/23 This is a 73-year-old female with past medical history significant for atrial fibrillation, PE, status post EKOS 02/2022, hypertension, hypothyroidism admitted with atrial fibrillation with RVR and multiple other medical issues.Evaluated and treated by cardiology. Presented to the hospital with complaints of heart palpitations, hypertension , shortness of breath 1 week.Positive orthopnea , reports sleeping sitting up in a recliner as well as living downstairs in her home to avoid climbing stairs. Cardizem drip initiated, rate improving. Cardiology consult in place. Troponins negative 3 , proBNP pending .EKG rate atrial fibrillation with RVR heart rate 132 . Echo reported normal LV functio n, mild pulmonary hypertension, moderate mitral and moderate tricuspid regurgitation .Chest x-ray no acute pulmonary process. UA reports positive nitrates, many bacteria, small leukocytes, urine culture pending. 09/30/2023 recently placed on 2 L nasal cannula, then increased to 4 L, maintaining O2 sats in the low 90s .complains of mild increased shortness of breath, which she reports started actually during the night. She has been on Lasix IV push every 12 hours, 24-hour I&O reflecting a negative fluid balance. Renal function mildly worsened, BUN 37, creatinine 1.26. Sodium 125 .Maintained on Rocephin for acute UTI. Afebrile, WBC 13.7. Blood sugars controlled. 10/01/23 yesterday developed worsening pulmonary edema, transfer to ICU. Chest x-ray at that time reported worsening of large perihilar consolidation noted greater on the right, pulmonary edema versus diffuse pneumonia. Received additional Lasix IV push, frequency increased yesterday diuresed well with 24- hour I&O reflecting a negative fluid balance. Maintained on BiPAP throughout the night, placed on 13 L nasal cannula to facilitate patient's diet intake this morning. Chest x-ray repeated this morning reporting improving bilateral areas of consolidation. Telemetry sinus rhythm, continues on Cardizem drip, tachycardic with heart rates in the 130s to 140s. Denies chest pain, palpitations. Afebrile, normal WBC. BUN 37, creatinine 1.30. Blood sugars controlled. 10/07/23 used BiPAP overnight, currently maintaining O2 sats in the 90s on 6 L nasal cannula. Chest x-ray reported bilateral pleural effusions, chest ultrasound reported right pleural effusion 6.8 cm, left pleural effusion 7.5 cm with both marked for possible thoracentesis. Diuresing on Lasix IV push with 24-hour I&O reflecting a negative fluid balance, but continues to have significant lower extremity edema. Telemetry atrial fibrillation with heart rates up to 120s. Reports palpitations, no chest pain. Evaluated by cardiolo gy, discussing RICO with cardioversion. 10/08/23 Eliquis on hold. status post right thoracentesis with 1200 MLS turbid pleural drainage aspirated. Tolerated procedure well. Postprocedure x-ray repo rted no pneumothorax, bilateral lower lobe infiltrate and small left effusion. Using BiPAP at night. Currently seem on Lasix IV push with 24-hour I&O reflecting a negative fluid balance. Telemetry atrial fibrillation with heart rates ranging from 90 to 110s. Maintaining O2 in the high 90s on 4-5 L nasal cannula. Bicarb 34, BUN 41, creatinine 1.03. 10/09/2023 chest x-ray reporting bilateral lower lobe infiltrate and small left effusion/no sizable pleural effusion on the right/no pneumothorax. Status post left thoracentesis this morning with 550 MLS turbid pleural drainage aspirated. Tolerated procedure well. Postprocedure chest x-ray reported no pneumothorax. Maintained on oral antiarrhythmics ,telemetry reporting atrial fibrillation. Cardioversion pending. Afebrile, normal WBC. Continues diuresing well on Lasix IV push with 24-hour I&O reflecting a negative fluid balance. sodium 136, potassium 3.8, bicarb 37, BUN 38, creatinine 0.97. Maintaining O2 sats in the 90s on 3 L nasal cannula. 10/10/2023 Eliquis resumed yesterday after thoracentesis. Pleural fluid Cytology pending . Telemetry atrial fibrillation, heart rate better controlled today on oral amiodarone, metoprolol, Cardizem. Cardioversion pending. BiPAP throughout the night. Denies chest pain, palpitations or shortness of breath. Maintaining O2 sats in the 90s on 2 L nasal cannula. Continues diuresing well on Lasix IV push with 24-hour I&O reflecting a negative fluid balance. Afebrile, normal WBC. Potassium 3.6, receiving replacement. BUN 36, creatinine 1.1 10/11/2023 BiPAP for short while during the night. Currently maintaining O2 sat in the 90s on room air. Continues diuresing well on Lasix IV push with 24-hour I&O reflecting a negative fluid balance. BUN 34, creatinine 1.24. Pleural fluid cytology pending. Cardizem discontinued, continues on amiodarone with metoprolol increased, A. fib controlled. Afebrile, normal WBC. Reports she ambulated yesterday, tolerated exertion well, O2 sat on room air after ambulation 95%. 10/14/2023 intubated, FiO2 40%/PEEP recently decreased to 8. Chest x-ray reported low lung volumes with grossly stable lung parenchyma opacities pred ominantly in lung bases, layering bilateral pleural effusions, Continues on diprovan, levophed and IV fluid hydration with saline 100 MLS an hour. Right pleural fluid cytology negative for malignancy. BNP 9280. BUN 62, creatinine increased to 2.39, lasix resumed. Continues on cefepime. Afebrile, WBC 24.6. Telemetry atrial fibrillation with RVR, antiarrhythmics adjusted per cardiology. 10/15/23 remains vent dependent with FiO2 40%/+8 of PEEP. Continues on levothyroid and diprovan. Maintained on empiric cefepime. Chest x-ray reporting stable; per pulmonary, pneumonia less likely. WBC decreased to 14.7. BUN 62, creatinine improving, decreased to 1.58. Reports patient follows commands. Echo reported suboptimal , reporting mild LV dysfunction. Telemetry atrial fibrillation with RVR, on oral amiodarone, beta jorge alberto increased with digoxin added to med regimen. Lasix resumed with improving urine output. 10/16/2023 Patient is seen and evaluated in follow-up continues in the ICU with cardiology and pulmonary following maintained on mechanical ventilation with an FiO2 of 40% and PEEP is 8. Undergoing sedation holidays and assessing for possible extubation today. Chest x-ray today shows continued left lung atelectasis with pleural effusions and patient is maintained on IV Lasix twice daily. Per nursing staff patient is awake and following commands and tolerating sedation h oliday. Plan for extubation today. Heart rate continues to be elevated and maintained on anticoagulation and amiodarone. Adjustments to medications per cardiology. Patient is afebrile maintained on cefepime for UTI and has been adequately treated and once transferred from ICU may not require continued antibiotic therapy. 10/17. Patient seen and examined. Currently on BiPAP. States she is feeling better. Blood work done this morning showed WBC 12.2, hemoglobin 13.2, platelet count 282, sodium 100, potassium 4, BUN 69, creatinine 1.13. Chest x-ray done this morning showed worsening pulmonary edema. 10/18. Patient seen and examined. Currently on nasal cannula. States she feels much better. States swelling of lower extremities has improved. Levaquin this morning showed WBC 11, hemoglobin 13.3, platelet count 305, sodium 1:30, potassium 4.7, BUN 72, crit 1.15 10/19. Patient seen and examined. Currently sitting upright in the chair currently on nasal cannula oxygen at 4 L, heart rate was elevated so dose of amiodarone and Lopressor were adjusted. 10/20. Patient seen and examined. Currently on 3 L of oxygen. Breathing is improving, still has swelling of lower extremities. 10/21. Patient seen and examined. States she is noticing improvement every day. Denies any shortness of breath at rest, get short of breath on exertion. Denies any cough. Still has swelling of lower extremities 10/22/2023 Patient is seen in follow-up remains in the ICU continues on 2 L of oxygen via nasal cannula reporting her breathing is improving and continues with significant weakness. Patient is a downgrade awaiting a bed on 3 S. Patient continues with significant weakness recommending ECF for continued PT/OT therapy and patient is planning on possibly [place] with social work following. Patient continues on IV Lasix 60 every 12 as well as IV steroids and breathing inhalational treatments. Patient continues with significant generalized edema and swelling noted of bilateral upper and lower extremities. Patient is currently afebrile and maintained on oral Cipro for UTI with E. coli. No reported chest pain or shortness of breath noted. No reported nausea or vomiting and patient is tolerating diet. REVIEW OF SYSTEMS: CONSTITUTIONAL: No fever, no malaise,. CARDIOVASCULAR: No chest pain, no palpitations, no syncope. PULMONARY: Still gets short of breath on exertion GASTROINTESTINAL: No diarrhea, no nausea, no vomiting, no abdominal pain. NEUROLOGICAL: No headaches, no weakness, PHYSICAL EXAMINATION: GENERAL: The patient is alert and oriented x3, chronically ill-looking, morbidly obese HEENT: Pupils are round and equally reacting to light. EOMI. No scleral icterus. No conjunctival pallor. Normocephalic, atraumatic. No pharyngeal erythema. No thyromegaly. CARDIOVASCULAR: S1 and S2 present. No murmurs, rubs, or gallops. Tachycardic, irregular in rate and rhythm PULMONARY: Diminished breath sounds at the bases bilaterally, no wheezing, crackles audible at the bases ABDOMEN: Soft, nontender, nondistended, normoactive bowel sounds. No palpable organomegaly. MUSCULOSKELETAL: No joint swelling or deformity. EXTREMITIES: 1+ pitting edema of lower extremities bilaterally NEUROLOGICAL: Gross neurological examination did not reveal any focal deficits. Diffusely weak SKIN: No rashes. Assessment: Chronic Atrial fibrillation with rapid ventricular rate, currently rate controlled Secondary Hypotension, pressor dependent, improved and off pressor support Acute on chronic CHF exacerbation, diastolic dysfunction, ef 55-60%. Bilateral pleural effusions status post bilateral thoracentesis,transudative. Cytology negative for malignancy. Possible underlying pneumonia, felt to be less likely as per pulmonary. Acute hypoxic respiratory failure , on mechanical ventilator-dependent ,secondary to the above Acute UTI, E. coli, treated and resolved Acute on chronic renal failure, stage III Pulmonary embolism bilaterally status post EKOS, 03/14/2022 Pulmonary hypertension Moderate mitral and tricuspid regurgitation Hypothyroidism Hypertension, history of Hyperlipidemia Osteoarthritis with history right knee placement in July 2022. Morbid obesity, BMI 53.1 GI prophylaxis DVT prophylaxis Full code Plan: Continue on current medications with cardiology and pulmonary following maintained on 2 L of oxygen via nasal cannula and is a downgrade from the ICU to [facility] with telemetry per pulmonary interlocker. Patient is continued on IV Solu-Medrol along with breathing inhalational treatments. Cardiology following and continuing current regimen maintained on IV Lasix twice daily, recommend to continue with telemetry monitoring currently rate controlled with atrial fibrillation Patient continues to have significant upper and lower bilateral extremity edema and will continue IV Lasix and follow up on repeat labs as patient has chronic kidney disease Patient will need extensive physical therapy and most likely require rehab once stabilized and discharged. Plan is for possible [place] and needing PT/OT therapy notes with social work following Patient maintained on oral Cipro as patient had UTI E. coli and has received adequate antibiotic therapy and will continue for now and once transferred out of the ICU consider discontinuing antibiotic therapy Overall poor prognosis given patient's significant comorbidities and prognosis is guarded at this time Will discuss further with discharge planning with other consultations to [facility] The impression and plan of care has been dictated by Juanita Shelby, Nurse Practitioner as directed. Dr. Bruce MD I have performed a history and examination and MDM of this patient, discussed the same with the dictator, and agree with the dictator's assessment and plan as written ,documented as a scribe. Based on total visit time, I have performed more than 50% of the visit. Objective - Vital Signs Vital signs: Vital Signs Temp 98.2 F 10/22/23 04:00 Pulse 103 H 10/22/23 09:13 Resp 17 10/22/23 04:00 BP 122/88 10/22/23 04:00 Pulse Ox 96 10/22/23 09:13 FiO2 4 10/19/23 08:00 Intake & Output 10/21/23 10/22/23 10/22/23 18:59 06:59 18:59 Intake Total 521 Output Total 1675 250 Balance -1154 -250 Weight 139.3 kg Intake: IV 151 KVO 0.9 NS @ 10 130 Pressure bags 21 Oral 370 Output: Urine 1675 250 Other: Voiding Method Indwelling Catheter Indwelling Catheter # Bowel Movements 1 ABP, PAP, CO, CI - Last Documented Arterial Blood Pressure 116/63 - Labs CBC & Chem 7: 10/22/23 03:48 10/22/23 03:48 Labs: Abnormal Lab Results - Last 24 Hours (Table) 10/21/23 10/21/23 10/21/23 Range/Units 11:33 16:45 20:06 WBC (3.8-10.6) k/uL Chloride (98-107) mmol/L Carbon Dioxide (22-30) mmol/L BUN (7-17) mg/dL Glucose (74-99) mg/dL POC Glucose (mg/dL) 144 H 122 H 144 H (70-110) mg/dL AST (14-36) U/L ALT (4-34) U/L Total Protein (6.3-8.2) g/dL Albumin (3.5-5.0) g/dL 10/22/23 10/22/23 10/22/23 Range/Units 03:48 03:48 06:34 WBC 14.3 H (3.8-10.6) k/uL Chloride 95 L (98-107) mmol/L Carbon Dioxide 37 H (22-30) mmol/L BUN 57 H (7-17) mg/dL Glucose 161 H (74-99) mg/dL POC Glucose (mg/dL) 134 H (70-110) mg/dL AST 50 H (14-36) U/L ALT 157 H (4-34) U/L Total Protein 5.4 L (6.3-8.2) g/dL Albumin 3.0 L (3.5-5.0) g/dL
[2023-10-22 17:00] LABS: Glucose,Whole Blood 155 mg/dL (70-110)
--- NOTE | 2023-10-22 17:45 | P.PN ---
Subjective Progress Note Date: 10/22/23 The patient is a 73-year-old female patient with history of heart failure as well as atrial fibrillation as well as hypertension and dyslipidemia and renal failure was admitted to the hospital with acute hypoxic respiratory failure. Initially she was started on diuretics for heart failure subsequently she developed renal failure and the diuretics was a systolic. Currently she is intubated and she is on mechanical ventilation for possible underlying pneumonia/sepsis and currently she is on norepinephrine 10/14/2023 The patient was seen and evaluated this morning. The patient remains intubated on mechanical ventilation. She remains hypotensive requiring norepinephrine. She is on amiodarone orally. She remains in nature fibrillation with overall heart rate around 120 bpm. I'm going to add a small dose of beta jorge alberto with metoprolol tartrate 12.5 mg by mouth twice a day to the current medical regimen. Continue oral anticoagulation. She is in process of having an echocardiogram later on today. The examination is remarkable for irregular rhythm with a systolic murmur at the right and left upper sternal border and bilateral upper and lower extremities edema October 152022 The patient was seen and evaluated this morning. She remains in atrial fibrillation with overall uncontrolled heart rate in spite of increasing the dose of metoprolol. She is also on amiodarone. I'm going to add digoxin to the current medical regimen. She does have edema in the lower extremities and she was started on Lasix IV. Her kidney function is slightly abnormal. The examination is remarkable for irregular heart rhythm with diminished breathing sounds bilaterally and bilateral lower extremities edema 10/16/2023 The patient was seen and evaluated this morning. She is awake. He potentially can be extubated later on today. Hemodynamically stable. The heart rate has somewhat improved continues to be in the 100 bpm. I'm going to increase the dose of beta jorge alberto with metoprolol to 50 mg by mouth twice a day. Continue digoxin and continue amiodarone and continue oral anticoagulation. She is having edema in the upper and lower extremity is and she is on Lasix IV which we will continue. October 172022 The patient was seen and evaluated this morning. She was extubated yesterday. Hemodynamically she is stable beside heart rate around 120 beats per minutes. Pressure is a stable. For that reason I'm going to increase the dose of metoprolol to 50 mg by mouth 3 times a day. She still have upper and lower extremities edema and she is on Lasix IV and has been making urine. She is on oral anticoagulation. She still on oxygen at 3 L at this point. The chest x- ray continues to show finding of bilateral infiltrate/heart failure 10/18/2023 The patient was seen and evaluated this morning. She was extubated 48 hours ago. Hemodynamically she is stable beside still tachycardia with the atrial fibrillation. She is on anticoagulation. I'm going to increase the dose of metoprolol and increase dose of amiodarone as well. She still hypoxic requiring oxygen. She started having upper and lower extremity is edema and she is on Lasix IV. The creatinine remains stable 10/19/2023 The patient was seen and evaluated this morning. She still tachycardic in atrial fibrillation. I'm going to increase the dose of amiodarone and metoprolol [place] she is on oral anticoagulation which is still congested and currently she is on Lasix IV. The creatinine remains stable. Examination is remarkable for severe eye lateral lower extremity is edema 10/20/2023 The patient was seen and evaluated this morning. She is doing overall better. The atrial fibrillation has been under control on the current dose of amiodarone are on and metoprolol and digoxin. As a matter of fact she started trending down and without being seen in one to decrease the dose of amiodarone and potentially decrease the dose of metoprolol if she starts going further down in the heart rate. She still hypervolemic. She continues to be on Lasix IV. The creatinine remains stable. The examination is remarkable for severe bilateral lower extremity is edema and diminished breathing sounds bilaterally and irregular rhythm 10/22/23 Patient's atrial fibrillation is rate controlled on amiodarone metoprolol and digoxin. Patient is still hypervolemic and is needing Lasix. She is appropriate urine output. Assessment Heart failure with preserved ejection fraction Pneumonia/sepsis Acute hypoxic respiratory failure secondary to the above Acute on chronic renal failure Atrial fibrillation with uncontrolled heart rate Multiple comorbid conditions Plan Continue the current medical regimen Continue the current dose of Lasix IV Continue monitoring her kidney function and electrolytes Decrease dose of amiodarone Follow-up with the patient Objective - Vital Signs Vital signs: Vital Signs Temp 98.3 F 10/22/23 12:00 Pulse 106 H 10/22/23 16:13 Resp 18 11/28/23 16:13 BP 132/85 10/22/23 12:00 Pulse Ox 93 L 10/22/23 12:00 FiO2 4 10/19/23 08:00 Intake & Output 10/21/23 10/22/23 10/22/23 18:59 06:59 18:59 Intake Total 521 250 Output Total 1675 250 250 Balance -1154 -250 0 Weight 139.3 kg Intake: IV 151 KVO 0.9 NS @ 10 130 Pressure bags 21 Oral 370 250 Output: Urine 1675 250 250 Other: Voiding Method Indwelling Catheter Indwelling Catheter Indwelling Catheter # Bowel Movements 1 1 ABP, PAP, CO, CI - Last Documented Arterial Blood Pressure 116/63 - Labs CBC & Chem 7: 10/22/23 03:48 10/22/23 03:48 Labs: Abnormal Lab Results - Last 24 Hours (Table) 10/21/23 10/22/23 10/22/23 Range/Units 20:06 03:48 03:48 WBC 14.3 H (3.8-10.6) k/uL Chloride 95 L (98-107) mmol/L Carbon Dioxide 37 H (22-30) mmol/L BUN 57 H (7-17) mg/dL Glucose 161 H (74-99) mg/dL POC Glucose (mg/dL) 144 H (70-110) mg/dL AST 50 H (14-36) U/L ALT 157 H (4-34) U/L Total Protein 5.4 L (6.3-8.2) g/dL Albumin 3.0 L (3.5-5.0) g/dL 10/22/23 10/22/23 10/22/23 Range/Units 06:34 11:56 16:59 WBC (3.8-10.6) k/uL Chloride (98-107) mmol/L Carbon Dioxide (22-30) mmol/L BUN (7-17) mg/dL Glucose (74-99) mg/dL POC Glucose (mg/dL) 134 H 139 H 155 H (70-110) mg/dL AST (14-36) U/L ALT (4-34) U/L Total Protein (6.3-8.2) g/dL Albumin (3.5-5.0) g/dL
[2023-10-22 19:57] LABS: Glucose,Whole Blood 169 mg/dL (70-110)
[2023-10-22] MEDS: ATORVASTATIN 80 MG TAB PO SCH (21:55)
[2023-10-22] MEDS: LORazepam 2 MG/ML INJ IV PRN (22:28)
[2023-10-23] MEDS: IPRATROPIUM-ALBUTEROL 3 ML NEB INHALATION SCH ×7 (03:56→23:38)
[2023-10-23 06:53] LABS: Glucose,Whole Blood 149 mg/dL (70-110)
[2023-10-23] MEDS: INSULIN ASPART (NovoLOG) 100 UNIT/ML VIAL SQ SCH ×4 (06:54→21:10)
[2023-10-23] MEDS: LEVOTHYROXINE 88 MCG TAB PO SCH (06:56)
[2023-10-23] MEDS: guaiFENesin 600 MG TABLET.ER PO SCH ×2 (08:30→21:08)
[2023-10-23] MEDS: AMIODARONE 200 MG TAB PO SCH ×2 (08:31→21:08)
[2023-10-23] MEDS: methylPREDNISolone SOD SUCCI 40 MG/ML 1 ML VIAL IV SCH ×2 (08:31→21:09)
[2023-10-23] MEDS: PANTOPRAZOLE 40 MG/10 ML VIAL IVP SCH (08:31)
[2023-10-23] MEDS: METOPROLOL TARTRATE 50 MG TAB PO SCH ×2 (08:31→21:08)
[2023-10-23] MEDS: APIXABAN 5 MG TAB PO SCH ×2 (08:31→21:08)
[2023-10-23] MEDS: DOCUSATE 100 MG CAP PO SCH ×2 (08:31→21:08)
[2023-10-23] MEDS: CIPROFLOXACIN HCL 500 MG TAB PO SCH ×2 (08:32→21:08)
[2023-10-23] MEDS: FUROSEMIDE 10 MG/ML 10 ML VIAL IV SCH ×2 (08:32→21:10)
[2023-10-23] MEDS: DIGOXIN 125 MCG TAB PO SCH (08:32)
[2023-10-23] MEDS: polyethylene glycoL 3350 17 GM POWD.PACK PO SCH (08:33)
--- NOTE | 2023-10-23 11:23 | P.PN ---
Subjective Progress Note Date: 10/23/23 Principal diagnosis: Shortness of breath. Pulmonary consult dated 09/30/2023. 73-year-old female who presented to the emergency department on September 26, complaining of arrhythmias, and palpitations. The patient does have a history of hypertension, atrial fibrillation, hyperlipidemia, pulmonary embolism, and hypothyroidism. The patient apparently was having some lower extremity edema, shortness of breath, and orthopnea. She also had mild exertional dyspnea. The patient denied any chest pain or chest discomfort. She was seen by the ER physician, and admitted with a diagnosis of atrial fibrillation, CHF, and urinary tract infection. Today, a rapid response was called on this patient, and, R ICU charge nurse, who evaluated the patient, and thought the patient should come down to the intensive care unit, for further monitoring and management. She was given some IV Lasix, and placed on BiPAP, with settings of 16/6, and 100%. She was seen in the intensive care unit, room 255. She was sitting up in bed, with mild respiratory distress, on the BiPAP device. White count was 13.7, hemoglobin 14.5, hematocrit 44.4, and a normal platelet count. Sodium 135, potassium 3.9, chlorides 96, CO2 27, anion gap 12, BUN 37, and creatinine 1.26. N-terminal proBNP, on September 29, was 7020. The patient had chest x-rays on the and on the . Today's chest x-ray shows worsening pulmonary edema. Progress note dated 10/01/2023. 73-year-old female seen again in intensive care unit, room 255. The patient was admitted with a diagnosis of acute hypoxemic respiratory failure, secondary to CHF, as well as atrial fibrillation with RVR. The patient is currently on high flow nasal O2, at 13 L. In addition, the patient uses BiPAP intermittently at 16/6, and 60%. For her atrial fibrillation and RVR, the patient's on Cardizem 15 mg an hour. Clinically, she's starting to feel a bit better. White count 9.4, hemoglobin 14, hematocrit 43.1, and platelet count 223,000. Sodium 136, potassium 4.1, chlorides 96, CO2 29, BUN 37, and creatinine 1.30. Calcium is 9.2. Chest x-ray shows improved vascular congestion. Progress note dated 10/02/2023. 73-year-old female seen in the intensive care unit, room 255. She was admitted initially with a diagnosis of acute hypoxemic respiratory failure secondary to CHF, as well as atrial fibrillation with rapid ventricular response. The patient is currently on room air, with saturations of 91%. Unfortunately, she continues on Cardizem at 10 mg an hour, and amiodarone at 0.5 mg/m. White count 9, hemoglobin 12.8, hematocrit 39.4, within normal platelet count. Sodium 136, potassium 4.3, chloride 96, CO2 34, BUN 41, creatinine 1.12. Glucose is 112. Urine culture is showing evidence of Escherichia coli. Chest x-ray shows improvement in the patient's pulmonary vascular status. Progress note dated 10/03/2023. 73-year-old female seen today in room 255, intensive care unit. She was admitted with a diagnosis of acute hypoxemic respiratory failure, secondary to CHF, as well as atrial fibrillation, with rapid ventricular response. Currently, the patient is on 2 L of oxygen. She's on a Cardizem drip at 10 mg an hour. She's not receiving any IV fluids additionally. The patient that she is BiPAP, intermittently, with settings of 16/6, and 45%. She use BiPAP last night for about an hour and a half. She needs to be using it more frequently. White count 9.4, hemoglobin 12.9, hematocrit 39.2, and platelet count 187,000. Sodium 136, potassium 4.1, chlorides 97, CO2 32, BUN 36, creatinine 1.06. Gluc ose 116. Calcium is 9. Chest x-ray shows improved pulmonary vascular status. Progress note dated 10/04/2023. 73-year-old female seen again in the intensive care unit, room 255. Currently, she is on 2 L of oxygen. She's on a Cardizem drip at 10 mg an hour, to be dropped on the 5 mg an hour. She did use of BiPAP last night, for many hours, and it seemed to help. Her settings include 16/6, and 45%. She currently remains in atrial fibrillation with a rate of 128 bpm. Labs today include a s odium 138, potassium 4.1, chlorides 98, CO2 31, BUN 40, and creatinine 1.08. Glucose 116. Calcium is 9.1. No chest x-ray today. Progress note dated 10/05/2023. 73-year-old female who was sent out of the intensive care unit yesterday, and came back into the intensive care unit, sometime early this morning. She apparently developed worsening shortness of breath, was severely anxious, receive some benzodiazepine, and, required BiPAP therapy. I was called by the nurse who went to the rapid response, and we decided to move the patient back to the intensive care unit. Currently, she is seen in room 261. She is on BiPAP, with settings of 16/6 and 60%. Gases done on 100% show pO2 of 66, pCO2 61, pH is 7.28. The patient is on Cardizem 5 mg an hour. She's not receiving any additional IV fluids. We did order a chest x-ray today, and N-terminal proBNP. Labs today include a white count 13.8, hemoglobin 13, hematocrit 40.7 and a platelet count 229,000. Sodium 136, potassium 4.6, chlorides 99, CO2 28, BUN 46, creatinine 1.31. Calcium is 9. Today's chest x-rays consistent with cardi omegaly, small bilateral pleural effusions, and pulmonary vascular congestion. Progress note dated 10/06/2023. 73-year-old female readmitted to the intensive care unit, for fluid overload/CHF. The patient is currently seen today in room 261. She is currently on BiPAP, with settings of 16/6, and 50%. She's getting Cardizem 5 mg an hour. Her chest x-ray shows fluid overload, so I increased her Lasix up milligrams IV push every 8 hours. When she was taken off BiPAP yesterday for a brief period of time, she became very anxious, and very short of breath, and, desaturated, and was placed back on BiPAP. White count 9.4, hemoglobin 12.9, hematocrit 40.1, within normal platelet count. Sodium 135, potassium 4.5, chlorides 99, CO2 29, BUN 49, and creatinine 1.11. Her N-terminal proBNP from yesterday was nearly 8000. Chest x-rays consistent with CHF, with effusion. Reevaluated today on 10/17, patient remains in the ICU, remains on BiPAP, she is now on 45%, and the plan is to transition from BiPAP to a high flow nasal cannula. Patient x-ray is showing slight worsening and worsening pulmonary edema and some recommending to increase her Lasix from 40 mg twice a day to 60 mg twice a day. Her IV fluids remains at KVO. Her overall clinical status remains marginal at best. Again there is worsening chest x-ray. Labs are basically unremarkable with improvement in her creatinine down to 1.13 in spite of aggressive diuresis. Looking at the fluid status, patient is -2 L in the last 24 hours Reevaluated today on 10/18/23, patient remains in the ICU, she is now on 4 L nasal cannula and O2 saturations running between 93 up to 97%. Patient seems to be more alert today, not confused, feeling better clinically, and she denies any shortness of breath. Chest x-ray showed significant improvement in her bilateral interstitial edema nonetheless she continues to have some left pleural effusion not large enough to consider thoracentesis again at this point. Yesterday I have increased her Lasix to 60 mg twice a day, and his chest x-ray is definitely showing improvement. Patient is negative fluid balance about 5 L in the last 2 days. And she continues to diurese, renal functioning is maintaining with creatinine of 1.15 today, steadily improving over the last 5 days in spite of aggressive diuresis. Her metoprolol dose was increased as well as her amiodarone dose increased by cardiology on the case Reevaluated today on 10/19/23, patient remains in, she is now on 4 L nasal cannula, she seems to be tachycardic, and her atrial fibrillation is still not fully controlled, patient has been seen by cardiology and her metoprolol was increased to 150 twice a day and amiodarone was increased to 400 twice a day. Patient is on 4 L but at night she goes on 10/30/45%. Does not seem to be in any distress, she is basically asymptomatic. IV fluids at KVO. And the patient remains on diuretics. Renal function continues to improve creatinine is 1.13 basic metabolic profile is relatively normal bicarb is 35 BUN is 68 WBC 12.8 hemoglobin 13.6 chest x-ray from yesterday showed improved aeration of the lungs has the patient had no change in her diuretics dose Reevaluated today on 10/20/23 patient remains in the ICU, remains on 4 L nasal cannula, doing great, relatively asymptomatic, patient is in good spirits, her IV fluids at KVO, patient is being transferred today to [facility]. In the meantime I am planning to continue her diuretics, and continue antibiotics for UTI. Basic metabolic profile is normal and her BUN is 67 creatinine 1.01 today, no major issues overnight. Patient does have cool left lower extremity and left foot, she has also noted by Doppler. No evidence of acute ischemic changes. Her right foot seems to be warm and slightly swollen. Progress note dated 10/21/2023. 73-year-old female who I last saw on October 06. She was initially admitted to the intensive care unit for fluid overload/CHF. She was previously on BiPAP, and is been in and out of the intensive care unit. Currently, the patient's on 3 L of oxygen by nasal cannula. She is getting saline at 10 mL an hour. The patient appears to be doing much better, and is hoping to be discharged out of the intensive care unit. White count is 14.1, hemoglobin 14, hematocrit 43.6, and platelet count 270,000. Sodium 136, potassium 4.2, chlorides 96, CO2 34, BUN 65, and creatinine 0.91. Progress note dated 10/22/2023. 3-year-old female seen yesterday, October 21, and room 264, intensive care unit. She was initially admitted to the intensive care unit, for fluid overload,/CHF. Currently, the patient is on 2 L of oxygen. She's not receiving any IV fluids. She is currently not using BiPAP. White count is 14.3, hemoglobin 14.3, hematocrit 44.9, and platelet count 249,000. Sodium 137, potassium 4.2, chlorides 95, CO2 37, BUN 57, and creatinine 1.03. Albumin is 3. Total protein is 5.4. No recent chest x-ray to report. Progress note dated 10/23/2023. 73-year-old female seen in room 264. Currently, the patient's on oxygen at 2 L by nasal cannula. She's not receiving any IV fluids. She was initially admitted to the intensive care unit, for fluid overload/CHF. She's now been in the hospital for 27 days. No new labs today. Glucose is 149. A PICC line will be placed today. Objective - Vital Signs Vital signs: Vital Signs Temp 97.6 F 10/23/23 08:00 Pulse 96 10/23/23 09:10 Resp 19 10/23/23 08:00 BP 108/70 10/23/23 08:00 Pulse Ox 97 10/23/23 09:10 FiO2 4 10/19/23 08:00 Intake & Output 10/22/23 10/23/23 10/23/23 18:59 06:59 18:59 Intake Total 250 500 200 Output Total 250 2950 90 Balance 0 -2450 110 Weight 137.8 kg 137.8 kg Intake: Oral 250 500 200 Output: Urine 250 2950 90 Other: Voiding Method Indwelling Catheter Indwelling Catheter Indwelling Catheter # Bowel Movements 1 ABP, PAP, CO, CI - Last Documented Arterial Blood Pressure 116/63 - Exam Currently on nasal oxygen at 2 L/m. The patient is awake and alert. HEENT examination is grossly unremarkable. Neck supple. Full range of motion. No adenopathy thyromegaly or neck vein distention. Cardiovascular examination reveals an irregular rhythm and rate. S1-S2 normal. No S3 or S4. No discernible murmur noted. Heart rate 96. Heart sounds are distant. Lungs reveal by basilar crackles. Breath sounds are equal bilaterally. No rhonchi. No wheezes. Saturations are 97%. Abdomen soft bowel sounds are heard. No masses or tenderness. Extremities are intact. No cyanosis or clubbing. Mild lower extremity edema. Skin is without rash or lesion. Neurologic examination is brief but nonfocal. - Labs CBC & Chem 7: 10/22/23 03:48 10/22/23 03:48 Labs: Abnormal Lab Results - Last 24 Hours (Table) 10/22/23 10/22/23 10/22/23 Range/Units 11:56 16:59 19:55 POC Glucose (mg/dL) 139 H 155 H 169 H (70-110) mg/dL 10/23/23 Range/Units 06:52 POC Glucose (mg/dL) 149 H (70-110) mg/dL Assessment and Plan Assessment: Acute hypoxemic respiratory failure, secondary to worsening systolic congestive heart failure. History of chronic atrial fibrillation, with rapid ventricular response. Bilateral pleural effusions, secondary to CHF. Escherichia coli urinary tract infection, resolved. History of hypertension. History of hyperlipidemia. History of pulmonary embolism. History of hypothyroidism. History of osteoarthritis. Plan: Plan dated 09/30/2023. The patient is seen today in the intensive care unit, room 255. She is on BiPAP currently, and I've asked the nurses, to inform respiratory therapy, to wean the patient's FiO2 down, as she improves. The patient has received additional Lasix, 40 mg earlier, and another 40 mg IV push now. The patient was placed on 40 mg of Lasix, IV push every 8 hours. We will continue to follow and make recommendations along the way. Labs, x-rays, and medications are reviewed. Prognosis is guarded. Plan dated 10/01/2023. Patient is seen in the intensive care unit, room 255. Currently, she is on high flow nasal O2 at 13 L. In addition, she is on BiPAP, intermittently at 16/6, and 60%. Because of her atrial fibrillation and RVR, she is currently on Cardizem 50 mg an hour. On auscultation, she has bibasilar crackles, and, she is in atrial fibrillation. She has lower extremity edema as well. Labs, x- rays, medications are reviewed. We will continue to follow and make recommendations along the way. Her prognosis is certainly guarded. Plan dated 10/02/2023. The patient is seen in room 255. Currently, she is on room air, and saturations are 91%. Her nurse will probably place her back on oxygen at 2 L. The patient still having atrial fibrillation with rapid ventricular response, and for that reason, she is on Cardizem at 10 mg an hour, and amiodarone at 0.5 mg/m. Her examination still reveals evidence of bibasilar crackles, and lower extremity edema. Labs, x-rays, and medications are reviewed. The patient's overall prognosis remains guarded. She obviously cannot be the ICU at this time. Plan dated 10/03/2023. The patient is seen today in room 255. She's currently on 2 L. She continues on Cardizem for atrial fibrillation and RVR, 10 mg an hour. She's not getting any additional IV fluids. She didn't use BiPAP last night, for about an hour and a half. Her BiPAP settings are 16/6 and 45%. She may need to use it more than she's currently using it. Labs, x-rays, medications are reviewed. Overall prognosis remains guarded. We will continue to follow the patient, and make recommendations along the way. Plan dated 10/04/2023. The patient is seen today in room 255. She remains on 2 L of oxygen. She's on a Cardizem drip at 10 mg an hour. He'll be turned down to 5 mg an hour. She does continue on IV Lasix. Her lower extremity edema is much improved. Labs, x-rays, and medications are reviewed. We will continue to follow the patient, and make recommendations along the way. No additional comments at this time. H er overall prognosis remains guarded. She did use of BiPAP last night, which is really seem to help. We encourage her to use it nightly, as it will reduce venous return, reduce preload, and help her with her congestive heart failure. Plan dated 10/05/2023. The patient is seen today in room 261. She was in the intensive care unit, for the last few days, and no doubt yesterday. Unfortunately, because of worsening respiratory status and CHF, she was transferred back to the intensive care unit, sometime early this morning. Currently, the patient's on BiPAP, with settings of 16/6 and 60%. Her gases have been reviewed. She continues on Cardizem 5 mg an hour. Labs, x-rays, and medications are reviewed. We will continue to follow and make recommendations along the way. Prognosis is certainly very guarded. Plan dated 10/06/2023. Patient is again seen today in the intensive care unit, room 261. She has ongoing respiratory failure secondary to CHF. In addition, she has atrial fibr illation, with a rapid ventricular response. She continues on BiPAP, at 16/6, and 50%. She also continues on Cardizem, 5 mg an hour. Lasix is increased to 40 mg IV push, every 8 hours. When she was taken off BiPAP yesterday, she did poorly. Labs, x-rays, and medications are reviewed. We will continue to follow the patient, and make recommendations along the way. Her overall prognosis remains very guarded. Plan dated 10/21/2023. The patient appears to be doing relatively well. The patient is stable to be transferred out of the intensive care unit. Currently, she is on 3 L of oxygen. She's getting saline at 10 mL an hour. Labs, x-rays, medications are reviewed. The patient is in good spirits, and is alert and awake. We will continue to follow and make recommendations along the way. Prognosis is certainly guarded, given the fact that she's been in the hospital now for 25 days. Plan dated 10/22/2023. The patient appears to be doing better. She seen today in room 264. She's been weaned down to 2 L. Saturations are in the mid 90s. Labs, x-rays, and medications are reviewed. The patient's overall prognosis remains guarded, but the patient can be transferred out of the intensive care unit. She is alert and awake. Plan dated 10/23/2023. The patient is resting comfortably today in room 264. She will have a PICC line placed sometime today. She continues on oxygen at 2 L. Labs, x-rays, medications are reviewed. The patient is stable be transferred out of the intensive care unit. We will continue to follow the patient, and make recommendations along the way. Her overall prognosis though, remains guarded. Time with Patient: Less than 30
[2023-10-23 11:51] LABS: Glucose,Whole Blood 168 mg/dL (70-110)
[2023-10-23 16:02] LABS: Glucose,Whole Blood 182 mg/dL (70-110)
--- NOTE | 2023-10-23 18:08 | P.PN ---
Subjective Progress Note Date: 10/23/23 The patient is a 73-year-old female patient with history of heart failure as well as atrial fibrillation as well as hypertension and dyslipidemia and renal failure was admitted to the hospital with acute hypoxic respiratory failure. Initially she was started on diuretics for heart failure subsequently she developed renal failure and the diuretics was a systolic. Currently she is intubated and she is on mechanical ventilation for possible underlying pneumonia/sepsis and currently she is on norepinephrine 10/14/2023 The patient was seen and evaluated this morning. The patient remains intubated on mechanical ventilation. She remains hypotensive requiring norepinephrine. She is on amiodarone orally. She remains in nature fibrillation with overall heart rate around 120 bpm. I'm going to add a small dose of beta jorge alberto with metoprolol tartrate 12.5 mg by mouth twice a day to the current medical regimen. Continue oral anticoagulation. She is in process of having an echocardiogram later on today. The examination is remarkable for irregular rhythm with a systolic murmur at the right and left upper sternal border and bilateral upper and lower extremities edema October [id number] The patient was seen and evaluated this morning. She remains in atrial fibrillation with overall uncontrolled heart rate in spite of increasing the dose of metoprolol. She is also on amiodarone. I'm going to add digoxin to the current medical regimen. She does have edema in the lower extremities and she was started on Lasix IV. Her kidney function is slightly abnormal. The examination is remarkable for irregular heart rhythm with diminished breathing sounds bilaterally and bilateral lower extremities edema 10/16/2023 The patient was seen and evaluated this morning. She is awake. He potentially can be extubated later on today. Hemodynamically stable. The heart rate has somewhat improved continues to be in the 100 bpm. I'm going to increase the dose of beta jorge alberto with metoprolol to 50 mg by mouth twice a day. Continue digoxin and continue amiodarone and continue oral anticoagulation. She is having edema in the upper and lower extremity is and she is on Lasix IV which we will continue. October 172022 The patient was seen and evaluated this morning. She was extubated yesterday. Hemodynamically she is stable beside heart rate around 120 beats per minutes. Pressure is a stable. For that reason I'm going to increase the dose of metoprolol to 50 mg by mouth 3 times a day. She still have upper and lower extremities edema and she is on Lasix IV and has been making urine. She is on oral anticoagulation. She still on oxygen at 3 L at this point. The chest x- ray continues to show finding of bilateral infiltrate/heart failure 10/18/2023 The patient was seen and evaluated this morning. She was extubated 48 hours ago. Hemodynamically she is stable beside still tachycardia with the atrial fibrillation. She is on anticoagulation. I'm going to increase the dose of metoprolol and increase dose of amiodarone as well. She still hypoxic requiring oxygen. She started having upper and lower extremity is edema and she is on Lasix IV. The creatinine remains stable 10/19/2023 The patient was seen and evaluated this morning. She still tachycardic in atrial fibrillation. I'm going to increase the dose of amiodarone and metoprolol [place] she is on oral anticoagulation which is still congested and currently she is on Lasix IV. The creatinine remains stable. Examination is remarkable for severe eye lateral lower extremity is edema 10/20/2023 The patient was seen and evaluated this morning. She is doing overall better. The atrial fibrillation has been under control on the current dose of amiodarone are on and metoprolol and digoxin. As a matter of fact she started trending down and without being seen in one to decrease the dose of amiodarone and potentially decrease the dose of metoprolol if she starts going further down in the heart rate. She still hypervolemic. She continues to be on Lasix IV. The creatinine remains stable. The examination is remarkable for severe bilateral lower extremity is edema and diminished breathing sounds bilaterally and irregular rhythm 10/22/23 Patient's atrial fibrillation is rate controlled on amiodarone metoprolol and digoxin. Patient is still hypervolemic and is needing Lasix. She is appropriate urine output. 10/23/23 Patient continues to be in atrial fibrillation which is rate controlled on amiodarone, metoprolol and digoxin. Patient is still hypervolemic Cardizem IV Lasix. She has appropriate urine output. Assessment Heart failure with preserved ejection fraction Pneumonia/sepsis Acute hypoxic respiratory failure secondary to the above Acute on chronic renal failure Atrial fibrillation with uncontrolled heart rate Multiple comorbid conditions Plan Continue the current medical regimen Continue the current dose of Lasix IV Continue monitoring her kidney function and electrolytes Continue amiodarone and digoxin Follow-up with the patient Objective - Vital Signs Vital signs: Vital Signs Temp 98.0 F 10/23/23 16:00 Pulse 98 10/23/23 16:22 Resp 34 H 10/23/23 16:00 BP 119/89 10/23/23 16:00 Pulse Ox 93 L 10/23/23 16:00 FiO2 4 10/19/23 08:00 Intake & Output 10/22/23 10/23/23 10/23/23 18:59 06:59 18:59 Intake Total 250 500 500 Output Total 250 2950 1974 Balance 0 -3230 -1475 Weight 137.8 kg 137.8 kg Intake: Oral 250 500 500 Output: Urine 250 2950 1974 Other: Voiding Method Indwelling Catheter Indwelling Catheter Indwelling Catheter # Bowel Movements 1 ABP, PAP, CO, CI - Last Documented Arterial Blood Pressure 116/63 - Labs CBC & Chem 7: 10/22/23 03:48 10/22/23 03:48 Labs: Abnormal Lab Results - Last 24 Hours (Table) 10/22/23 10/23/23 10/23/23 Range/Units 19:55 06:52 11:50 POC Glucose (mg/dL) 169 H 149 H 168 H (70-110) mg/dL 10/23/23 Range/Units 16:00 POC Glucose (mg/dL) 182 H (70-110) mg/dL
[2023-10-23 20:31] LABS: Glucose,Whole Blood 173 mg/dL (70-110)
[2023-10-23 21:05] LABS: Glucose,Whole Blood 146 mg/dL (70-110)
[2023-10-23] MEDS: ATORVASTATIN 80 MG TAB PO SCH (21:08)
[2023-10-23] MEDS: MELATONIN 5 MG TABLET PO SCH (21:08)
--- NOTE | 2023-10-23 23:46 | P.PN ---
Subjective Progress Note Date: 10/23/23 This is a 73-year-old female with past medical history significant for atrial fibrillation, PE, status post EKOS 02/2022, hypertension, hypothyroidism admitted with atrial fibrillation with RVR and multiple other medical issues.Evaluated and treated by cardiology. Presented to the hospital with complaints of heart palpitations, hypertension , shortness of breath 1 week.Positive orthopnea , reports sleeping sitting up in a recliner as well as living downstairs in her home to avoid climbing stairs. Cardizem drip initiated, rate improving. Cardiology consult in place. Troponins negative 3 , proBNP pending .EKG rate atrial fibrillation with RVR heart rate 132 . Echo reported normal LV functio n, mild pulmonary hypertension, moderate mitral and moderate tricuspid regurgitation .Chest x-ray no acute pulmonary process. UA reports positive nitrates, many bacteria, small leukocytes, urine culture pending. 09/30/2023 recently placed on 2 L nasal cannula, then increased to 4 L, maintaining O2 sats in the low 90s .complains of mild increased shortness of breath, which she reports started actually during the night. She has been on Lasix IV push every 12 hours, 24-hour I&O reflecting a negative fluid balance. Renal function mildly worsened, BUN 37, creatinine 1.26. Sodium 125 .Maintained on Rocephin for acute UTI. Afebrile, WBC 13.7. Blood sugars controlled. 10/01/23 yesterday developed worsening pulmonary edema, transfer to ICU. Chest x-ray at that time reported worsening of large perihilar consolidation noted greater on the right, pulmonary edema versus diffuse pneumonia. Received additional Lasix IV push, frequency increased yesterday diuresed well with 24- hour I&O reflecting a negative fluid balance. Maintained on BiPAP throughout the night, placed on 13 L nasal cannula to facilitate patient's diet intake this morning. Chest x-ray repeated this morning reporting improving bilateral areas of consolidation. Telemetry sinus rhythm, continues on Cardizem drip, tachycardic with heart rates in the 130s to 140s. Denies chest pain, palpitations. Afebrile, normal WBC. BUN 37, creatinine 1.30. Blood sugars controlled. 10/07/23 used BiPAP overnight, currently maintaining O2 sats in the 90s on 6 L nasal cannula. Chest x-ray reported bilateral pleural effusions, chest ultrasound reported right pleural effusion 6.8 cm, left pleural effusion 7.5 cm with both marked for possible thoracentesis. Diuresing on Lasix IV push with 24-hour I&O reflecting a negative fluid balance, but continues to have significant lower extremity edema. Telemetry atrial fibrillation with heart rates up to 120s. Reports palpitations, no chest pain. Evaluated by cardiolo gy, discussing RICO with cardioversion. 10/08/23 Eliquis on hold. status post right thoracentesis with 1200 MLS turbid pleural drainage aspirated. Tolerated procedure well. Postprocedure x-ray repo rted no pneumothorax, bilateral lower lobe infiltrate and small left effusion. Using BiPAP at night. Currently seem on Lasix IV push with 24-hour I&O reflecting a negative fluid balance. Telemetry atrial fibrillation with heart rates ranging from 90 to 110s. Maintaining O2 in the high 90s on 4-5 L nasal cannula. Bicarb 34, BUN 41, creatinine 1.03. 10/09/2023 chest x-ray reporting bilateral lower lobe infiltrate and small left effusion/no sizable pleural effusion on the right/no pneumothorax. Status post left thoracentesis this morning with 550 MLS turbid pleural drainage aspirated. Tolerated procedure well. Postprocedure chest x-ray reported no pneumothorax. Maintained on oral antiarrhythmics ,telemetry reporting atrial fibrillation. Cardioversion pending. Afebrile, normal WBC. Continues diuresing well on Lasix IV push with 24-hour I&O reflecting a negative fluid balance. sodium 136, potassium 3.8, bicarb 37, BUN 38, creatinine 0.97. Maintaining O2 sats in the 90s on 3 L nasal cannula. 10/10/2023 Eliquis resumed yesterday after thoracentesis. Pleural fluid Cytology pending . Telemetry atrial fibrillation, heart rate better controlled today on oral amiodarone, metoprolol, Cardizem. Cardioversion pending. BiPAP throughout the night. Denies chest pain, palpitations or shortness of breath. Maintaining O2 sats in the 90s on 2 L nasal cannula. Continues diuresing well on Lasix IV push with 24-hour I&O reflecting a negative fluid balance. Afebrile, normal WBC. Potassium 3.6, receiving replacement. BUN 36, creatinine 1.1 10/11/2023 BiPAP for short while during the night. Currently maintaining O2 sat in the 90s on room air. Continues diuresing well on Lasix IV push with 24-hour I&O reflecting a negative fluid balance. BUN 34, creatinine 1.24. Pleural fluid cytology pending. Cardizem discontinued, continues on amiodarone with metoprolol increased, A. fib controlled. Afebrile, normal WBC. Reports she ambulated yesterday, tolerated exertion well, O2 sat on room air after ambulation 95%. 10/14/2023 intubated, FiO2 40%/PEEP recently decreased to 8. Chest x-ray reported low lung volumes with grossly stable lung parenchyma opacities pred ominantly in lung bases, layering bilateral pleural effusions, Continues on diprovan, levophed and IV fluid hydration with saline 100 MLS an hour. Right pleural fluid cytology negative for malignancy. BNP 9280. BUN 62, creatinine increased to 2.39, lasix resumed. Continues on cefepime. Afebrile, WBC 24.6. Telemetry atrial fibrillation with RVR, antiarrhythmics adjusted per cardiology. 10/15/23 remains vent dependent with FiO2 40%/+8 of PEEP. Continues on levothyroid and diprovan. Maintained on empiric cefepime. Chest x-ray reporting stable; per pulmonary, pneumonia less likely. WBC decreased to 14.7. BUN 62, creatinine improving, decreased to 1.58. Reports patient follows commands. Echo reported suboptimal , reporting mild LV dysfunction. Telemetry atrial fibrillation with RVR, on oral amiodarone, beta jorge alberto increased with digoxin added to med regimen. Lasix resumed with improving urine output. 10/16/2023 Patient is seen and evaluated in follow-up continues in the ICU with cardiology and pulmonary following maintained on mechanical ventilation with an FiO2 of 40% and PEEP is 8. Undergoing sedation holidays and assessing for possible extubation today. Chest x-ray today shows continued left lung atelectasis with pleural effusions and patient is maintained on IV Lasix twice daily. Per nursing staff patient is awake and following commands and tolerating sedation h oliday. Plan for extubation today. Heart rate continues to be elevated and maintained on anticoagulation and amiodarone. Adjustments to medications per cardiology. Patient is afebrile maintained on cefepime for UTI and has been adequately treated and once transferred from ICU may not require continued antibiotic therapy. 10/17. Patient seen and examined. Currently on BiPAP. States she is feeling better. Blood work done this morning showed WBC 12.2, hemoglobin 13.2, platelet count 282, sodium 100, potassium 4, BUN 69, creatinine 1.13. Chest x-ray done this morning showed worsening pulmonary edema. 10/18. Patient seen and examined. Currently on nasal cannula. States she feels much better. States swelling of lower extremities has improved. Levaquin this morning showed WBC 11, hemoglobin 13.3, platelet count 305, sodium 1:30, potassium 4.7, BUN 72, crit 1.15 10/19. Patient seen and examined. Currently sitting upright in the chair currently on nasal cannula oxygen at 4 L, heart rate was elevated so dose of amiodarone and Lopressor were adjusted. 10/20. Patient seen and examined. Currently on 3 L of oxygen. Breathing is improving, still has swelling of lower extremities. 10/21. Patient seen and examined. States she is noticing improvement every day. Denies any shortness of breath at rest, get short of breath on exertion. Denies any cough. Still has swelling of lower extremities 10/22/2023 Patient is seen in follow-up remains in the ICU continues on 2 L of oxygen via nasal cannula reporting her breathing is improving and continues with significant weakness. Patient is a downgrade awaiting a bed on 3 S. Patient continues with significant weakness recommending ECF for continued PT/OT therapy and patient is planning on possibly [place] with social work following. Patient continues on IV Lasix 60 every 12 as well as IV steroids and breathing inhalational treatments. Patient continues with significant generalized edema and swelling noted of bilateral upper and lower extremities. Patient is currently afebrile and maintained on oral Cipro for UTI with E. coli. No reported chest pain or shortness of breath noted. No reported nausea or vomiting and patient is tolerating diet. 10/23/2023 Patient is seen in follow-up today continues in the ICU as an overflow awaiting a bed on 3 S. with cardiology and pulmonary following. Patient is continued on 2 L via nasal cannula and continue to wean FiO2 as tolerated. Patient continues on large dose IV Lasix along with IV steroids and continued breathing treatments and will continue. Patient continues to be in volume overload with significant edema noted bilateral upper and lower extremities. Will follow-up with repeat chest x-ray and labs for the a.m. Physical therapy following the patient recommending rehab and patient is agreeable. Patient has been maintained on IV antibiotics and has transitioned oral Cipro and to be considered for discontinued antibiotics for resolved UTI. Encouraged increase activity as tolerated as well as oral intake. Overall prognosis is guarded with significant comorbidities. REVIEW OF SYSTEMS: CONSTITUTIONAL: No fever, no malaise,. CARDIOVASCULAR: No chest pain, no palpitations, no syncope. PULMONARY: Reports having short of breath on exertion GASTROINTESTINAL: No diarrhea, no nausea, no vomiting, no abdominal pain. NEUROLOGICAL: No headaches, reports of generalized weakness PHYSICAL EXAMINATION: GENERAL: The patient is alert and oriented x3, chronically ill-looking, morbidly obese HEENT: Pupils are round and equally reacting to light. EOMI. No scleral icterus. No conjunctival pallor. Normocephalic, atraumatic. No pharyngeal erythema. No thyromegaly. CARDIOVASCULAR: S1 and S2 present. No murmurs, rubs, or gallops. Tachycardic, irregular in rate and rhythm PULMONARY: Diminished breath sounds at the bases bilaterally, no wheezing, crackles audible at the bases ABDOMEN: Soft, nontender, nondistended, normoactive bowel sounds. No palpable organomegaly. MUSCULOSKELETAL: No joint swelling or deformity. EXTREMITIES: 1+ pitting edema of lower extremities bilaterally NEUROLOGICAL: Gross neurological examination did not reveal any focal deficits. Diffusely weak SKIN: No rashes. Assessment: Chronic Atrial fibrillation with rapid ventricular rate, currently rate controlled Secondary Hypotension, pressor dependent, improved and off pressor support Acute on chronic CHF exacerbation, diastolic dysfunction, ef 55-60%. Bilateral pleural effusions status post bilateral thoracentesis,transudative. Cytology negative for malignancy. Possible underlying pneumonia, felt to be less likely as per pulmonary. Acute hypoxic respiratory failure , on mechanical ventilator-dependent ,secondary to the above, successfully extubated and currently on 2 L via nasal cannula Acute UTI, E. coli, treated and resolved Acute on chronic renal failure, stage III Pulmonary embolism bilaterally status post EKOS, 03/14/2022 Pulmonary hypertension Moderate mitral and tricuspid regurgitation Hypothyroidism Hypertension, history of Hyperlipidemia Osteoarthritis with history right knee placement in July 2022. Morbid obesity, BMI 53.1 GI prophylaxis DVT prophylaxis Full code Plan: Continue on current medications with cardiology and pulmonary following maintained on 2 L of oxygen via nasal cannula and is a downgrade from the ICU to [facility] with telemetry per pulmonary director process. Patient is continued on IV Solu-Medrol along with breathing inhalational treatments. Cardiology following and continuing current regimen maintained on IV Lasix twice daily, recommend to continue with telemetry monitoring currently rate controlled with atrial fibrillation Patient continues to have significant upper and lower bilateral extremity edema and will continue IV Lasix and follow up on repeat labs as patient has chronic kidney disease Patient will need extensive physical therapy and require rehab once stabilized and discharged. Plan is for possible [place] and needing continued daily PT/OT therapy evaluation. Social work is following working on discharge planning Patient has been maintained on oral Cipro as patient had UTI E. coli and has received adequate antibiotic therapy and will consider discontinuing antibiotic therapy Overall poor prognosis given patient's significant comorbidities and prognosis is guarded at this time Will discuss further with discharge planning with other consultations to [facility] Repeat labs along with chest x-ray ordered for a.m. The impression and plan of care has been dictated by Juanita Shelby, Nurse Practitioner as directed. Dr. Bruce MD I have performed a history and examination and MDM of this patient, discussed the same with the dictator, and agree with the dictator's assessment and plan as written ,documented as a scribe. Based on total visit time, I have performed more than 50% of the visit. Objective - Vital Signs Vital signs: Vital Signs Temp 98.1 F 10/23/23 12:00 Pulse 101 H 10/23/23 12:00 Resp 34 H 10/23/23 12:00 BP 108/70 10/23/23 12:00 Pulse Ox 93 L 10/23/23 12:00 FiO2 4 10/19/23 08:00 Intake & Output 10/22/23 10/23/23 10/23/23 18:59 06:59 18:59 Intake Total 250 500 350 Output Total 250 2950 1600 Balance 0 -2450 -1250 Weight 137.8 kg 137.8 kg Intake: Oral 250 500 350 Output: Urine 250 2950 1600 Other: Voiding Method Indwelling Catheter Indwelling Catheter Indwelling Catheter # Bowel Movements 1 ABP, PAP, CO, CI - Last Documented Arterial Blood Pressure 116/63 - Labs CBC & Chem 7: 10/22/23 03:48 10/22/23 03:48 Labs: Abnormal Lab Results - Last 24 Hours (Table) 10/22/23 10/22/23 10/23/23 Range/Units 16:59 19:55 06:52 POC Glucose (mg/dL) 155 H 169 H 149 H (70-110) mg/dL 10/23/23 Range/Units 11:50 POC Glucose (mg/dL) 168 H (70-110) mg/dL
[2023-10-24] MEDS: IPRATROPIUM-ALBUTEROL 3 ML NEB INHALATION SCH ×5 (03:40→20:21)
[2023-10-24 06:23] LABS: Basophils % (A) 0 %; Eosinophils % (A) 0 %; HCT 46.7 % (34.0-46.0); HGB 14.6 gm/dL (11.4-16.0); Lymphocytes # (A) 0.6 k/uL (1.0-4.8); Lymphocytes % (A) 4 %; MCH 30.7 pg (25.0-35.0); MCHC 31.2 g/dL (31.0-37.0); MCV 98.3 fL (80.0-100.0); Mean Platelet Volume 7.8; Monocytes # (A) 0.5 k/uL (0-1.0); Monocytes % (A) 3 %; Neutrophils # (A) 13.3 k/uL (1.3-7.7); Neutrophils % (A) 92 %; Platelet Count 249 k/uL (150-450); RBC 4.75 m/uL (3.80-5.40); RDW 13.5 % (11.5-15.5); WBC 14.5 k/uL (3.8-10.6)
[2023-10-24 06:49] LABS: Glucose,Whole Blood 166 mg/dL (70-110)
[2023-10-24] MEDS: INSULIN ASPART (NovoLOG) 100 UNIT/ML VIAL SQ SCH ×4 (06:53→21:34)
[2023-10-24] MEDS: LEVOTHYROXINE 88 MCG TAB PO SCH (06:53)
[2023-10-24 07:00] LABS: ALT 131 U/L (4-34); AST 37 U/L (14-36); African American GFR (CKD) 71 (>60 ml/min/1.73 sqM); Albumin 2.9 g/dL (3.5-5.0); Alkaline Phosphatase 67 U/L (38-126); Anion Gap 7 mmol/L; Blood Urea Nitrogen 53 mg/dL (7-17); Calcium 8.4 mg/dL (8.4-10.2); Chloride 92 mmol/L (98-107); Glucose 177 mg/dL (74-99); Magnesium 2.1 mg/dL (1.6-2.3); Non-African American GFR(CKD) 62 (>60 ml/min/1.73 sqM); Potassium 4.3 mmol/L (3.5-5.1); Sodium 139 mmol/L (137-145); Total Bilirubin 1.1 mg/dL (0.2-1.3); Total Protein 5.2 g/dL (6.3-8.2)
[2023-10-24 07:25] LABS: Carbon Dioxide 40 mmol/L (22-30)
[2023-10-24] MEDS: DOCUSATE 100 MG CAP PO SCH ×2 (08:50→21:41)
[2023-10-24] MEDS: METOPROLOL TARTRATE 50 MG TAB PO SCH ×2 (08:50→21:40)
[2023-10-24] MEDS: DIGOXIN 125 MCG TAB PO SCH (08:50)
[2023-10-24] MEDS: guaiFENesin 600 MG TABLET.ER PO SCH ×2 (08:50→21:40)
[2023-10-24] MEDS: APIXABAN 5 MG TAB PO SCH ×2 (08:50→21:40)
[2023-10-24] MEDS: CIPROFLOXACIN HCL 500 MG TAB PO SCH ×2 (08:50→21:40)
[2023-10-24] MEDS: PANTOPRAZOLE 40 MG/10 ML VIAL IVP SCH (08:51)
[2023-10-24] MEDS: AMIODARONE 200 MG TAB PO SCH ×2 (08:51→21:40)
[2023-10-24] MEDS: FUROSEMIDE 10 MG/ML 10 ML VIAL IV SCH ×2 (08:51→21:41)
[2023-10-24] MEDS: methylPREDNISolone SOD SUCCI 40 MG/ML 1 ML VIAL IV SCH (08:51)
[2023-10-24] MEDS: polyethylene glycoL 3350 17 GM POWD.PACK PO SCH (08:52)
--- NOTE | 2023-10-24 10:17 | XR ---
EXAMINATION TYPE: XR chest 1V portable DATE OF EXAM: 10/24/2023 COMPARISON: 10/18/2023. HISTORY: CHF. TECHNIQUE: Single frontal view of the chest is obtained. FINDINGS: Unchanged right perihilar masslike airspace disease. The cardiac silhouette is moderately enlarged there is mild pulmonary edema. Small left pleural effusion. IMPRESSION: No significant change.
[2023-10-24 11:33] LABS: Glucose,Whole Blood 144 mg/dL (70-110)
--- NOTE | 2023-10-24 11:54 | P.PN ---
Subjective Progress Note Date: 10/24/23 Principal diagnosis: Shortness of breath. Pulmonary consult dated 09/30/2023. 73-year-old female who presented to the emergency department on September 26, complaining of arrhythmias, and palpitations. The patient does have a history of hypertension, atrial fibrillation, hyperlipidemia, pulmonary embolism, and hypothyroidism. The patient apparently was having some lower extremity edema, shortness of breath, and orthopnea. She also had mild exertional dyspnea. The patient denied any chest pain or chest discomfort. She was seen by the ER physician, and admitted with a diagnosis of atrial fibrillation, CHF, and urinary tract infection. Today, a rapid response was called on this patient, and, R ICU charge nurse, who evaluated the patient, and thought the patient should come down to the intensive care unit, for further monitoring and management. She was given some IV Lasix, and placed on BiPAP, with settings of 16/6, and 100%. She was seen in the intensive care unit, room 255. She was sitting up in bed, with mild respiratory distress, on the BiPAP device. White count was 13.7, hemoglobin 14.5, hematocrit 44.4, and a normal platelet count. Sodium 135, potassium 3.9, chlorides 96, CO2 27, anion gap 12, BUN 37, and creatinine 1.26. N-terminal proBNP, on September 29, was 7020. The patient had chest x-rays on the and on the . Today's chest x-ray shows worsening pulmonary edema. Progress note dated 10/01/2023. 73-year-old female seen again in intensive care unit, room 255. The patient was admitted with a diagnosis of acute hypoxemic respiratory failure, secondary to CHF, as well as atrial fibrillation with RVR. The patient is currently on high flow nasal O2, at 13 L. In addition, the patient uses BiPAP intermittently at 16/6, and 60%. For her atrial fibrillation and RVR, the patient's on Cardizem 15 mg an hour. Clinically, she's starting to feel a bit better. White count 9.4, hemoglobin 14, hematocrit 43.1, and platelet count 223,000. Sodium 136, potassium 4.1, chlorides 96, CO2 29, BUN 37, and creatinine 1.30. Calcium is 9.2. Chest x-ray shows improved vascular congestion. Progress note dated 10/02/2023. 73-year-old female seen in the intensive care unit, room 255. She was admitted initially with a diagnosis of acute hypoxemic respiratory failure secondary to CHF, as well as atrial fibrillation with rapid ventricular response. The patient is currently on room air, with saturations of 91%. Unfortunately, she continues on Cardizem at 10 mg an hour, and amiodarone at 0.5 mg/m. White count 9, hemoglobin 12.8, hematocrit 39.4, within normal platelet count. Sodium 136, potassium 4.3, chloride 96, CO2 34, BUN 41, creatinine 1.12. Glucose is 112. Urine culture is showing evidence of Escherichia coli. Chest x-ray shows improvement in the patient's pulmonary vascular status. Progress note dated 10/03/2023. 73-year-old female seen today in room 255, intensive care unit. She was admitted with a diagnosis of acute hypoxemic respiratory failure, secondary to CHF, as well as atrial fibrillation, with rapid ventricular response. Currently, the patient is on 2 L of oxygen. She's on a Cardizem drip at 10 mg an hour. She's not receiving any IV fluids additionally. The patient that she is BiPAP, intermittently, with settings of 16/6, and 45%. She use BiPAP last night for about an hour and a half. She needs to be using it more frequently. White count 9.4, hemoglobin 12.9, hematocrit 39.2, and platelet count 187,000. Sodium 136, potassium 4.1, chlorides 97, CO2 32, BUN 36, creatinine 1.06. Gluc ose 116. Calcium is 9. Chest x-ray shows improved pulmonary vascular status. Progress note dated 10/04/2023. 73-year-old female seen again in the intensive care unit, room 255. Currently, she is on 2 L of oxygen. She's on a Cardizem drip at 10 mg an hour, to be dropped on the 5 mg an hour. She did use of BiPAP last night, for many hours, and it seemed to help. Her settings include 16/6, and 45%. She currently remains in atrial fibrillation with a rate of 128 bpm. Labs today include a s odium 138, potassium 4.1, chlorides 98, CO2 31, BUN 40, and creatinine 1.08. Glucose 116. Calcium is 9.1. No chest x-ray today. Progress note dated 10/05/2023. 73-year-old female who was sent out of the intensive care unit yesterday, and came back into the intensive care unit, sometime early this morning. She apparently developed worsening shortness of breath, was severely anxious, receive some benzodiazepine, and, required BiPAP therapy. I was called by the nurse who went to the rapid response, and we decided to move the patient back to the intensive care unit. Currently, she is seen in room 261. She is on BiPAP, with settings of 16/6 and 60%. Gases done on 100% show pO2 of 66, pCO2 61, pH is 7.28. The patient is on Cardizem 5 mg an hour. She's not receiving any additional IV fluids. We did order a chest x-ray today, and N-terminal proBNP. Labs today include a white count 13.8, hemoglobin 13, hematocrit 40.7 and a platelet count 229,000. Sodium 136, potassium 4.6, chlorides 99, CO2 28, BUN 46, creatinine 1.31. Calcium is 9. Today's chest x-rays consistent with cardi omegaly, small bilateral pleural effusions, and pulmonary vascular congestion. Progress note dated 10/06/2023. 73-year-old female readmitted to the intensive care unit, for fluid overload/CHF. The patient is currently seen today in room 261. She is currently on BiPAP, with settings of 16/6, and 50%. She's getting Cardizem 5 mg an hour. Her chest x-ray shows fluid overload, so I increased her Lasix up milligrams IV push every 8 hours. When she was taken off BiPAP yesterday for a brief period of time, she became very anxious, and very short of breath, and, desaturated, and was placed back on BiPAP. White count 9.4, hemoglobin 12.9, hematocrit 40.1, within normal platelet count. Sodium 135, potassium 4.5, chlorides 99, CO2 29, BUN 49, and creatinine 1.11. Her N-terminal proBNP from yesterday was nearly 8000. Chest x-rays consistent with CHF, with effusion. Reevaluated today on 10/17, patient remains in the ICU, remains on BiPAP, she is now on 45%, and the plan is to transition from BiPAP to a high flow nasal cannula. Patient x-ray is showing slight worsening and worsening pulmonary edema and some recommending to increase her Lasix from 40 mg twice a day to 60 mg twice a day. Her IV fluids remains at KVO. Her overall clinical status remains marginal at best. Again there is worsening chest x-ray. Labs are basically unremarkable with improvement in her creatinine down to 1.13 in spite of aggressive diuresis. Looking at the fluid status, patient is -2 L in the last 24 hours Reevaluated today on 10/18/23, patient remains in the ICU, she is now on 4 L nasal cannula and O2 saturations running between 93 up to 97%. Patient seems to be more alert today, not confused, feeling better clinically, and she denies any shortness of breath. Chest x-ray showed significant improvement in her bilateral interstitial edema nonetheless she continues to have some left pleural effusion not large enough to consider thoracentesis again at this point. Yesterday I have increased her Lasix to 60 mg twice a day, and his chest x-ray is definitely showing improvement. Patient is negative fluid balance about 5 L in the last 2 days. And she continues to diurese, renal functioning is maintaining with creatinine of 1.15 today, steadily improving over the last 5 days in spite of aggressive diuresis. Her metoprolol dose was increased as well as her amiodarone dose increased by cardiology on the case Reevaluated today on 10/19/23, patient remains in, she is now on 4 L nasal cannula, she seems to be tachycardic, and her atrial fibrillation is still not fully controlled, patient has been seen by cardiology and her metoprolol was increased to 150 twice a day and amiodarone was increased to 400 twice a day. Patient is on 4 L but at night she goes on 10/30/45%. Does not seem to be in any distress, she is basically asymptomatic. IV fluids at KVO. And the patient remains on diuretics. Renal function continues to improve creatinine is 1.13 basic metabolic profile is relatively normal bicarb is 35 BUN is 68 WBC 12.8 hemoglobin 13.6 chest x-ray from yesterday showed improved aeration of the lungs has the patient had no change in her diuretics dose Reevaluated today on 10/20/23 patient remains in the ICU, remains on 4 L nasal cannula, doing great, relatively asymptomatic, patient is in good spirits, her IV fluids at KVO, patient is being transferred today to [facility]. In the meantime I am planning to continue her diuretics, and continue antibiotics for UTI. Basic metabolic profile is normal and her BUN is 67 creatinine 1.01 today, no major issues overnight. Patient does have cool left lower extremity and left foot, she has also noted by Doppler. No evidence of acute ischemic changes. Her right foot seems to be warm and slightly swollen. Progress note dated 10/21/2023. 73-year-old female who I last saw on October 06. She was initially admitted to the intensive care unit for fluid overload/CHF. She was previously on BiPAP, and is been in and out of the intensive care unit. Currently, the patient's on 3 L of oxygen by nasal cannula. She is getting saline at 10 mL an hour. The patient appears to be doing much better, and is hoping to be discharged out of the intensive care unit. White count is 14.1, hemoglobin 14, hematocrit 43.6, and platelet count 270,000. Sodium 136, potassium 4.2, chlorides 96, CO2 34, BUN 65, and creatinine 0.91. Progress note dated 10/22/2023. 3-year-old female seen yesterday, October 21, and room 264, intensive care unit. She was initially admitted to the intensive care unit, for fluid overload,/CHF. Currently, the patient is on 2 L of oxygen. She's not receiving any IV fluids. She is currently not using BiPAP. White count is 14.3, hemoglobin 14.3, hematocrit 44.9, and platelet count 249,000. Sodium 137, potassium 4.2, chlorides 95, CO2 37, BUN 57, and creatinine 1.03. Albumin is 3. Total protein is 5.4. No recent chest x-ray to report. Progress note dated 10/23/2023. 73-year-old female seen in room 264. Currently, the patient's on oxygen at 2 L by nasal cannula. She's not receiving any IV fluids. She was initially admitted to the intensive care unit, for fluid overload/CHF. She's now been in the hospital for 27 days. No new labs today. Glucose is 149. A PICC line will be placed today. Progress note dated 10/24/2023. The patient is seen today in room 264. She's not receiving any IV fluids. She is on 2 L of oxygen. Generally speaking, she is doing much better. She still has some lower extremity edema. Labs, x-rays, and medications are all reviewed. White count 14.5, hemoglobin 14.6, hematocrit 46.7, and platelet count 249,000. Sodium 139, potassium 4.3, chloride 92, CO2 40, anion gap 7, BUN 53, and the creatinine is 0.91. AST is 37. ALT is 131. Albumin 2.9. Most recent glucose is 144. Chest x-ray shows no major change. There is a right hilar masslike airspace process. There is cardiomegaly. There is mild pulmonary edema. Objective - Vital Signs Vital signs: Vital Signs Temp 97.4 F L 10/24/23 08:00 Pulse 77 10/24/23 11:36 Resp 13 10/24/23 08:00 BP 111/67 10/24/23 08:00 Pulse Ox 96 10/24/23 08:28 FiO2 4 10/19/23 08:00 Intake & Output 10/23/23 10/24/23 10/24/23 18:59 06:59 18:59 Intake Total 500 250 Output Total 1974 1750 400 Balance -1475 -1750 -150 Weight 135.5 kg Intake: Oral 500 250 Output: Urine 1974 1749 400 Other: Voiding Method Indwelling Catheter Indwelling Catheter Indwelling Catheter ABP, PAP, CO, CI - Last Documented Arterial Blood Pressure 116/63 - Exam Currently on nasal oxygen at 2 L/m. The patient is awake and alert. HEENT examination is grossly unremarkable. Neck supple. Full range of motion. No adenopathy thyromegaly or neck vein distention. Cardiovascular examination reveals an irregular rhythm and rate. S1-S2 normal. No S3 or S4. No discernible murmur noted. Heart rate 77. Heart sounds are distant. Lungs reveal by basilar crackles. Breath sounds are equal bilaterally. No rhonchi. No wheezes. Saturations are 96 %. Abdomen soft bowel sounds are heard. No masses or tenderness. Extremities are intact. No cyanosis or clubbing. Mild lower extremity edema. Skin is without rash or lesion. Neurologic examination is brief but nonfocal. - Labs CBC & Chem 7: 10/24/23 05:56 10/24/23 05:56 Labs: Abnormal Lab Results - Last 24 Hours (Table) 10/23/23 10/23/23 10/23/23 Range/Units 11:50 16:00 20:29 WBC (3.8-10.6) k/uL Hct (34.0-46.0) % Neutrophils # (1.3-7.7) k/uL Lymphocytes # (1.0-4.8) k/uL Chloride (98-107) mmol/L Carbon Dioxide (22-30) mmol/L BUN (7-17) mg/dL Glucose (74-99) mg/dL POC Glucose (mg/dL) 168 H 182 H 173 H (70-110) mg/dL AST (14-36) U/L ALT (4-34) U/L Total Protein (6.3-8.2) g/dL Albumin (3.5-5.0) g/dL 10/23/23 10/24/23 10/24/23 Range/Units 21:03 05:56 05:56 WBC 14.5 H (3.8-10.6) k/uL Hct 46.7 H (34.0-46.0) % Neutrophils # 13.3 H (1.3-7.7) k/uL Lymphocytes # 0.6 L (1.0-4.8) k/uL Chloride 92 L (98-107) mmol/L Carbon Dioxide 40 H (22-30) mmol/L BUN 53 H (7-17) mg/dL Glucose 177 H (74-99) mg/dL POC Glucose (mg/dL) 146 H (70-110) mg/dL AST 37 H (14-36) U/L ALT 131 H (4-34) U/L Total Protein 5.2 L (6.3-8.2) g/dL Albumin 2.9 L (3.5-5.0) g/dL 10/24/23 10/24/23 Range/Units 06:47 11:32 WBC (3.8-10.6) k/uL Hct (34.0-46.0) % Neutrophils # (1.3-7.7) k/uL Lymphocytes # (1.0-4.8) k/uL Chloride (98-107) mmol/L Carbon Dioxide (22-30) mmol/L BUN (7-17) mg/dL Glucose (74-99) mg/dL POC Glucose (mg/dL) 166 H 144 H (70-110) mg/dL AST (14-36) U/L ALT (4-34) U/L Total Protein (6.3-8.2) g/dL Albumin (3.5-5.0) g/dL Assessment and Plan Assessment: Acute hypoxemic respiratory failure, secondary to worsening systolic congestive heart failure. History of chronic atrial fibrillation, with rapid ventricular response. Bilateral pleural effusions, secondary to CHF. Escherichia coli urinary tract infection, resolved. History of hypertension. History of hyperlipidemia. History of pulmonary embolism. History of hypothyroidism. History of osteoarthritis. Plan: Plan dated 09/30/2023. The patient is seen today in the intensive care unit, room 255. She is on BiPAP currently, and I've asked the nurses, to inform respiratory therapy, to wean the patient's FiO2 down, as she improves. The patient has received additional Lasix, 40 mg earlier, and another 40 mg IV push now. The patient was placed on 40 mg of Lasix, IV push every 8 hours. We will continue to follow and make recommendations along the way. Labs, x-rays, and medications are reviewed. Prognosis is guarded. Plan dated 10/01/2023. Patient is seen in the intensive care unit, room 255. Currently, she is on high flow nasal O2 at 13 L. In addition, she is on BiPAP, intermittently at 16/6, and 60%. Because of her atrial fibrillation and RVR, she is currently on Cardizem 50 mg an hour. On auscultation, she has bibasilar crackles, and, she is in atrial fibrillation. She has lower extremity edema as well. Labs, x- rays, medications are reviewed. We will continue to follow and make recommendations along the way. Her prognosis is certainly guarded. Plan dated 10/02/2023. The patient is seen in room 255. Currently, she is on room air, and saturations are 91%. Her nurse will probably place her back on oxygen at 2 L. The patient still having atrial fibrillation with rapid ventricular response, and for that reason, she is on Cardizem at 10 mg an hour, and amiodarone at 0.5 mg/m. Her examination still reveals evidence of bibasilar crackles, and lower extremity edema. Labs, x-rays, and medications are reviewed. The patient's overall prognosis remains guarded. She obviously cannot be the ICU at this time. Plan dated 10/03/2023. The patient is seen today in room 255. She's currently on 2 L. She continues on Cardizem for atrial fibrillation and RVR, 10 mg an hour. She's not getting any additional IV fluids. She didn't use BiPAP last night, for about an hour and a half. Her BiPAP settings are 16/6 and 45%. She may need to use it more than she's currently using it. Labs, x-rays, medications are reviewed. Overall prognosis remains guarded. We will continue to follow the patient, and make recommendations along the way. Plan dated 10/04/2023. The patient is seen today in room 255. She remains on 2 L of oxygen. She's on a Cardizem drip at 10 mg an hour. He'll be turned down to 5 mg an hour. She does continue on IV Lasix. Her lower extremity edema is much improved. Labs, x-rays, and medications are reviewed. We will continue to follow the patient, and make recommendations along the way. No additional comments at this time. Her overall prognosis remains guarded. She did use of BiPAP last night, which is really seem to help. We encourage her to use it nightly, as it will reduce venous return, reduce preload, and help her with her congestive heart failure. Plan dated 10/05/2023. The patient is seen today in room 261. She was in the intensive care unit, for the last few days, and no doubt yesterday. Unfortunately, because of worsening respiratory status and CHF, she was transferred back to the intensive care unit, sometime early this morning. Currently, the patient's on BiPAP, with settings of 16/6 and 60%. Her gases have been reviewed. She continues on Cardizem 5 mg an hour. Labs, x-rays, and medications are reviewed. We will continue to follow and make recommendations along the way. Prognosis is certainly very guarded. Plan dated 10/06/2023. Patient is again seen today in the intensive care unit, room 261. She has ongoing respiratory failure secondary to CHF. In addition, she has atrial fi brillation, with a rapid ventricular response. She continues on BiPAP, at 16/6, and 50%. She also continues on Cardizem, 5 mg an hour. Lasix is increased to 40 mg IV push, every 8 hours. When she was taken off BiPAP yesterday, she did poorly. Labs, x-rays, and medications are reviewed. We will continue to follow the patient, and make recommendations along the way. Her overall prognosis therese ins very guarded. Plan dated 10/21/2023. The patient appears to be doing relatively well. The patient is stable to be transferred out of the intensive care unit. Currently, she is on 3 L of oxygen. She's getting saline at 10 mL an hour. Labs, x-rays, medications are reviewed. The patient is in good spirits, and is alert and awake. We will continue to follow and make recommendations along the way. Prognosis is certainly guarded, given the fact that she's been in the hospital now for 25 days. Plan dated 10/22/2023. The patient appears to be doing better. She seen today in room 264. She's been weaned down to 2 L. Saturations are in the mid 90s. Labs, x-rays, and medications are reviewed. The patient's overall prognosis remains guarded, but the patient can be transferred out of the intensive care unit. She is alert and awake. Plan dated 10/23/2023. The patient is resting comfortably today in room 264. She will have a PICC line placed sometime today. She continues on oxygen at 2 L. Labs, x-rays, medications are reviewed. The patient is stable be transferred out of the intensive care unit. We will continue to follow the patient, and make recommendations along the way. Her overall prognosis though, remains guarded. Plan dated 10/24/2023. The patient is seen today in room 264. She is resting comfortably. She continues on oxygen at 2 L. She's not receiving any IV fluids. Labs, x-rays, and medications are reviewed. The patient could be transferred out to the cardiac floor. She continues on ciprofloxacin. Corticosteroids will be discontinued. No additional recommendations are made. Time with Patient: Less than 30
--- NOTE | 2023-10-24 14:40 | P.PN ---
Subjective Progress Note Date: 10/24/23 H&P Date: 09/27/23 Chief Complaint: Palpitations, dyspnea This is a 73-year-old female with past medical history significant for atrial fibrillation, PE, status post EKOS 02/2022, hypertension, hypothyroidism admitted with atrial fibrillation with RVR and multiple other medical issues.Evaluated and treated by cardiology. Presented to the hospital with complaints of heart palpitations, hypertension , shortness of breath 1 week.Positive orthopnea , reports sleeping sitting up in a recliner as well as living downstairs in her home to avoid climbing stairs. Cardizem drip initiated, rate improving. Cardiology consult in place. Troponins negative 3 , proBNP pending .EKG rate atrial fibrillation with RVR heart rate 132 . Echo reported normal LV f unction, mild pulmonary hypertension, moderate mitral and moderate tricuspid regurgitation .Chest x-ray no acute pulmonary process. UA reports positive nitrates, many bacteria, small leukocytes, urine culture pending. 09/30/2023 recently placed on 2 L nasal cannula, then increased to 4 L, ebony [place] O2 sats in the low 90s .complains of mild increased shortness of breath, which she reports started actually during the night. She has been on Lasix IV push every 12 hours, 24-hour I&O reflecting a negative fluid balance. Renal function mildly worsened, BUN 37, creatinine 1.26. Sodium 125 .Maintained on Rocephin for acute UTI. Afebrile, WBC 13.7. Blood sugars controlled. 10/01/23 yesterday developed worsening pulmonary edema, transfer to ICU. Chest x-ray at that time reported worsening of large perihilar consolidation noted greater on the right, pulmonary edema versus diffuse pneumonia. Received additional Lasix IV push, frequency increased yesterday diuresed well with 24-hour I&O reflecting a negative fluid balance. Maintained on BiPAP throughout the night, placed on 13 L nasal cannula to facilitate patient's diet intake this morning. Chest x-ray repeated this morning reporting improving bilateral areas of consolidation. Telemetry sinus rhythm, continues on Cardizem drip, tachycardic with heart rates in the 130s to 140s. Denies chest pain, palpitations. Afebrile, normal WBC. BUN 37, creatinine 1.30. Blood sugars controlled. 10/07/23 used BiPAP overnight, currently maintaining O2 sats in the 90s on 6 L nasal cannula. Chest x-ray reported bilateral pleural effusions, chest ultrasound reported right pleural effusion 6.8 cm, left pleural effusion 7.5 cm with both marked for possible thoracentesis. Diuresing on Lasix IV push with 24-hour I&O reflecting a negative fluid balance, but continues to have significant lower extremity edema. Telemetry atrial fibrillation with heart rates up to 120s. Reports palpitations, no chest pain. Evaluated by [facility] rdiology, discussing RICO with cardioversion. 10/08/23 Eliquis on hold. status post right thoracentesis with 1200 MLS turbid pleural drainage aspirated. Tolerated procedure well. Postprocedure x-ray reported no pneumothorax, bilateral lower lobe infiltrate and small left effusion. Using BiPAP at night. Currently seem on Lasix IV push with 24-hour I&O reflecting a negative fluid balance. Telemetry atrial fibrillation with heart rates ranging from 90 to 110s. Maintaining O2 in the high 90s on 4-5 L nasal cannula. Bicarb 34, BUN 41, creatinine 1.03. 10/09/2023 chest x-ray reporting bilateral lower lobe infiltrate and small left effusion/no sizable pleural effusion on the right/no pneumothorax. Status post left thoracentesis this morning with 550 MLS turbid pleural drainage aspirated. Tolerated procedure well. Postprocedure chest x-ray reported no pneumothorax. Maintained on oral antiarrhythmics ,telemetry reporting atrial fibrillation. Cardioversion pending. Afebrile, normal WBC. Continues diuresing well on Lasix IV push with 24-hour I&O reflecting a negative fluid balance. sodium 136, potassium 3.8, bicarb 37, BUN 38, creatinine 0.97. Maintaining O2 sats in the 90s on 3 L nasal cannula. 10/10/2023 Eliquis resumed yesterday after thoracentesis. Pleural fluid Cy tology pending . Telemetry atrial fibrillation, heart rate better controlled today on oral amiodarone, metoprolol, Cardizem. Cardioversion pending. BiPAP throughout the night. Denies chest pain, palpitations or shortness of breath. Maintaining O2 sats in the 90s on 2 L nasal cannula. Continues diuresing well on Lasix IV push with 24-hour I&O reflecting a negative fluid balance. Afebrile, normal WBC. Potassium 3.6, receiving replacement. BUN 36, creatinine 1.1 10/11/2023 BiPAP for short while during the night. Currently maintaining O2 sat in the 90s on room air. Continues diuresing well on Lasix IV push with 24-hour I&O reflecting a negative fluid balance. BUN 34, creatinine 1.24. Pleural fluid cytology pending. Cardizem discontinued, continues on amiodarone with metoprolol increased, A. fib controlled. Afebrile, normal WBC. Reports she ambulated yesterday, tolerated exertion well, O2 sat on room air after ambulation 95%. 10/14/2023 intubated, FiO2 40%/PEEP recently decreased to 8. Chest x-ray reported low lung volumes with grossly stable lung parenchyma opacities predominantly in lung bases, layering bilateral pleural effusions, Continues on diprovan, levophed and IV fluid hydration with saline 100 MLS an hour. Right pleural fluid cytology negative for malignancy. BNP 9280. BUN 62, creatinine increased to 2.39, lasix resumed. Continues on cefepime. Afebrile, WBC 24.6. Telemetry atrial fibrillation with RVR, antiarrhythmics adjusted per cardiology. 10/15/23 remains vent dependent with FiO2 40%/+8 of PEEP. Continues on levothyroid and diprovan. Maintained on empiric cefepime. Chest x-ray reporting stable; per pulmonary, pneumonia less likely. WBC decreased to 14.7. BUN 62, creatinine improving, decreased to 1.58. Reports patient follows commands. Echo reported suboptimal , reporting mild LV dysfunction. Telemetry atrial fibrillation with RVR, on oral amiodarone, beta jorge alberto increased with digoxin added to med regimen. Lasix resumed with improving urine output. 09/27/2023 maintaining O2 sats in the 90s on 2 L nasal cannula. Chest x-ray pending. Telemetry atrial fibrillation. Diuresing well on Lasix IV push with 24-hour I&O reflecting a negative fluid balance. BUN 53, creatinine 0.91. Blood sugars controlled. Objective - Vital Signs Vital signs: Vital Signs Temp 97.4 F L 10/24/23 08:00 Pulse 107 H 10/24/23 12:00 Resp 19 10/24/23 12:00 BP 111/67 10/24/23 12:00 Pulse Ox 96 11/30/23 12:00 FiO2 4 10/19/23 08:00 Intake & Output 10/23/23 10/24/23 10/24/23 18:59 06:59 18:59 Intake Total 500 250 Output Total 1974 1749 400 Balance -1475 -1750 -150 Weight 135.5 kg Intake: Oral 500 250 Output: Urine 1974 1749 400 Other: Voiding Method Indwelling Catheter Indwelling Catheter Indwelling Catheter ABP, PAP, CO, CI - Last Documented Arterial Blood Pressure 116/63 - Exam PHYSICAL EXAM: VITAL SIGNS: [As above] GENERAL: Alert and oriented 3, sitting up in bed, no acute distress. HEENT: Normocephalic, Conjunctivae normal. NECK: Supple, No JVD. CARDIOVASCULAR: S1, S2. irregular. Mild Tachycardia. Systolic murmur. RESPIRATION: Unlabored, equal air entry, fine bibasilar crackles ABDOMEN: Soft, nondistended, nontender. +BS LEGS: Mild bilateral lower extremity edema. NERVOUS SYSTEM: No focal deficits. Skin: Warm and dry, no rash - Labs CBC & Chem 7: 10/24/23 05:56 10/24/23 05:56 Labs: Abnormal Lab Results - Last 24 Hours (Table) 10/23/23 10/23/23 10/23/23 Range/Units 16:00 20:29 21:03 WBC (3.8-10.6) k/uL Hct (34.0-46.0) % Neutrophils # (1.3-7.7) k/uL Lymphocytes # (1.0-4.8) k/uL Chloride (98-107) mmol/L Carbon Dioxide (22-30) mmol/L BUN (7-17) mg/dL Glucose (74-99) mg/dL POC Glucose (mg/dL) 182 H 173 H 146 H (70-110) mg/dL AST (14-36) U/L ALT (4-34) U/L Total Protein (6.3-8.2) g/dL Albumin (3.5-5.0) g/dL 10/24/23 10/24/23 10/24/23 Range/Units 05:56 05:56 06:47 WBC 14.5 H (3.8-10.6) k/uL Hct 46.7 H (34.0-46.0) % Neutrophils # 13.3 H (1.3-7.7) k/uL Lymphocytes # 0.6 L (1.0-4.8) k/uL Chloride 92 L (98-107) mmol/L Carbon Dioxide 40 H (22-30) mmol/L BUN 53 H (7-17) mg/dL Glucose 177 H (74-99) mg/dL POC Glucose (mg/dL) 166 H (70-110) mg/dL AST 37 H (14-36) U/L ALT 131 H (4-34) U/L Total Protein 5.2 L (6.3-8.2) g/dL Albumin 2.9 L (3.5-5.0) g/dL 10/24/23 Range/Units 11:32 WBC (3.8-10.6) k/uL Hct (34.0-46.0) % Neutrophils # (1.3-7.7) k/uL Lymphocytes # (1.0-4.8) k/uL Chloride (98-107) mmol/L Carbon Dioxide (22-30) mmol/L BUN (7-17) mg/dL Glucose (74-99) mg/dL POC Glucose (mg/dL) 144 H (70-110) mg/dL AST (14-36) U/L ALT (4-34) U/L Total Protein (6.3-8.2) g/dL Albumin (3.5-5.0) g/dL Assessment and Plan Assessment: Chronic Atrial fibrillation with rapid ventricular rate Secondary Hypotension, pressor dependent Acute on chronic CHF exacerbation, diastolic dysfunction, ef 55-60%. Bilateral pleural effusions status post bilateral thoracentesis,transudative. Cytology negative for malignancy. Possible underlying pneumonia, felt to be less likely as per pulmonary. Acute hypoxic respiratory failure , status post mechanical ventilator-dependent ,secondary to the above Acute UTI, E. coli , completed antibiotic treatment Acute on chronic renal failure, stage III Pulmonary embolism bilaterally status post EKOS, 03/14/2022 Pulmonary hypertension Moderate mitral and tricuspid regurgitation Hypothyroidism Hypertension, history of Hyperlipidemia Osteoarthritis with history right knee placement in July 2022. Morbid obesity, BMI 46 Plan: Continue on current medication regime ,monitoring and symptomatic treatment. Cleared by tappet adjuster for transfer out of ICU to [facility] overflow .Antiarrhythmics as per cardiology. Prognosis guarded given multiple complex medical issues. The impression and plan of care has been dictated as directed. : I performed a history and examination of this patient, discussed the same with the dictator. I agree with the dictator's note ,documented as a scribe. Any additional findings or plans will be noted.
[2023-10-24 16:20] LABS: Glucose,Whole Blood 155 mg/dL (70-110)
--- NOTE | 2023-10-24 19:00 | P.PN ---
Subjective Progress Note Date: 10/24/23 The patient is a 73-year-old female patient with history of heart failure as well as atrial fibrillation as well as hypertension and dyslipidemia and renal failure was admitted to the hospital with acute hypoxic respiratory failure. Initially she was started on diuretics for heart failure subsequently she developed renal failure and the diuretics was a systolic. Currently she is intubated and she is on mechanical ventilation for possible underlying pneumonia/sepsis and currently she is on norepinephrine 10/14/2023 The patient was seen and evaluated this morning. The patient remains intubated on mechanical ventilation. She remains hypotensive requiring norepinephrine. She is on amiodarone orally. She remains in nature fibrillation with overall heart rate around 120 bpm. I'm going to add a small dose of beta jorge alberto with metoprolol tartrate 12.5 mg by mouth twice a day to the current medical regimen. Continue oral anticoagulation. She is in process of having an echocardiogram later on today. The examination is remarkable for irregular rhythm with a systolic murmur at the right and left upper sternal border and bilateral upper and lower extremities edema October 152022 The patient was seen and evaluated this morning. She remains in atrial fibrillation with overall uncontrolled heart rate in spite of increasing the dose of metoprolol. She is also on amiodarone. I'm going to add digoxin to the current medical regimen. She does have edema in the lower extremities and she was started on Lasix IV. Her kidney function is slightly abnormal. The examination is remarkable for irregular heart rhythm with diminished breathing sounds bilaterally and bilateral lower extremities edema 10/16/2023 The patient was seen and evaluated this morning. She is awake. He potentially can be extubated later on today. Hemodynamically stable. The heart rate has somewhat improved continues to be in the 100 bpm. I'm going to increase the dose of beta jorge alberto with metoprolol to 50 mg by mouth twice a day. Continue digoxin and continue amiodarone and continue oral anticoagulation. She is having edema in the upper and lower extremity is and she is on Lasix IV which we will continue. October 172022 The patient was seen and evaluated this morning. She was extubated yesterday. Hemodynamically she is stable beside heart rate around 120 beats per minutes. Pressure is a stable. For that reason I'm going to increase the dose of metoprolol to 50 mg by mouth 3 times a day. She still have upper and lower extremities edema and she is on Lasix IV and has been making urine. She is on oral anticoagulation. She still on oxygen at 3 L at this point. The chest x- ray continues to show finding of bilateral infiltrate/heart failure 10/18/2023 The patient was seen and evaluated this morning. She was extubated 48 hours ago. Hemodynamically she is stable beside still tachycardia with the atrial fibrillation. She is on anticoagulation. I'm going to increase the dose of metoprolol and increase dose of amiodarone as well. She still hypoxic requiring oxygen. She started having upper and lower extremity is edema and she is on Lasix IV. The creatinine remains stable 10/19/2023 The patient was seen and evaluated this morning. She still tachycardic in atrial fibrillation. I'm going to increase the dose of amiodarone and metoprolol [place] she is on oral anticoagulation which is still congested and currently she is on Lasix IV. The creatinine remains stable. Examination is remarkable for severe eye lateral lower extremity is edema 10/20/2023 The patient was seen and evaluated this morning. She is doing overall better. The atrial fibrillation has been under control on the current dose of amiodarone are on and metoprolol and digoxin. As a matter of fact she started trending down and without being seen in one to decrease the dose of amiodarone and potentially decrease the dose of metoprolol if she starts going further down in the heart rate. She still hypervolemic. She continues to be on Lasix IV. The creatinine remains stable. The examination is remarkable for severe bilateral lower extremity is edema and diminished breathing sounds bilaterally and irregular rhythm 10/22/23 Patient's atrial fibrillation is rate controlled on amiodarone metoprolol and digoxin. Patient is still hypervolemic and is needing Lasix. She is appropriate urine output. 10/23/23 Patient continues to be in atrial fibrillation which is rate controlled on amiodarone, metoprolol and digoxin. Patient is still hypervolemic Cardizem IV Lasix. She has appropriate urine output. 10/24/23 Patient is seen and examined at bedside the same. She is doing well from cardiac vessel standpoint. She continues to be in rate controlled atrial fibrillation. She is having adequate urine output with IV Lasix 60 mg BID. Labs. CBC 14, bilirubin 14, BUN 53, creatinine 0.9 BP 114/52, heart rate 95 Assessment Heart failure with preserved ejection fraction Pneumonia/sepsis Acute hypoxic respiratory failure secondary to the above Acute on chronic renal failure Atrial fibrillation with uncontrolled heart rate Multiple comorbid conditions Plan Continue the current medical regimen Continue the current dose of Lasix IV. Give 1 dose of metolazone 2.5 mg with morning Lasix tomorrow a.m. Patient's kidney function has stayed stable. She still appears volume overloaded with swelling in bilateral lower extremities. She does have crackles in bilateral lung acuna Continue monitoring her kidney function and electrolytes Continue amiodarone and digoxin Follow-up with the patient Objective - Vital Signs Vital signs: Vital Signs Temp 97.7 F 10/24/23 16:00 Pulse 101 H 10/24/23 16:00 Resp 17 10/24/23 16:00 BP 114/52 10/24/23 16:00 Pulse Ox 96 10/24/23 16:00 FiO2 4 10/19/23 08:00 Intake & Output 10/23/23 10/24/23 10/24/23 18:59 06:59 18:59 Intake Total 500 850 Output Total 19740 Balance -1475 -1750 -1380 Weight 135.5 kg Intake: Oral 500 850 Output: Urine 1974 1749 2229 Other: Voiding Method Indwelling Catheter Indwelling Catheter Indwelling Catheter ABP, PAP, CO, CI - Last Documented Arterial Blood Pressure 116/63 - Labs CBC & Chem 7: 10/24/23 05:56 10/24/23 05:56 Labs: Abnormal Lab Results - Last 24 Hours (Table) 10/23/23 10/23/23 10/24/23 Range/Units 20:29 21:03 05:56 WBC 14.5 H (3.8-10.6) k/uL Hct 46.7 H (34.0-46.0) % Neutrophils # 13.3 H (1.3-7.7) k/uL Lymphocytes # 0.6 L (1.0-4.8) k/uL Chloride (98-107) mmol/L Carbon Dioxide (22-30) mmol/L BUN (7-17) mg/dL Glucose (74-99) mg/dL POC Glucose (mg/dL) 173 H 146 H (70-110) mg/dL AST (14-36) U/L ALT (4-34) U/L Total Protein (6.3-8.2) g/dL Albumin (3.5-5.0) g/dL 10/24/23 10/24/23 10/24/23 Range/Units 05:56 06:47 11:32 WBC (3.8-10.6) k/uL Hct (34.0-46.0) % Neutrophils # (1.3-7.7) k/uL Lymphocytes # (1.0-4.8) k/uL Chloride 92 L (98-107) mmol/L Carbon Dioxide 40 H (22-30) mmol/L BUN 53 H (7-17) mg/dL Glucose 177 H (74-99) mg/dL POC Glucose (mg/dL) 166 H 144 H (70-110) mg/dL AST 37 H (14-36) U/L ALT 131 H (4-34) U/L Total Protein 5.2 L (6.3-8.2) g/dL Albumin 2.9 L (3.5-5.0) g/dL 10/24/23 Range/Units 16:19 WBC (3.8-10.6) k/uL Hct (34.0-46.0) % Neutrophils # (1.3-7.7) k/uL Lymphocytes # (1.0-4.8) k/uL Chloride (98-107) mmol/L Carbon Dioxide (22-30) mmol/L BUN (7-17) mg/dL Glucose (74-99) mg/dL POC Glucose (mg/dL) 155 H (70-110) mg/dL AST (14-36) U/L ALT (4-34) U/L Total Protein (6.3-8.2) g/dL Albumin (3.5-5.0) g/dL
[2023-10-24 20:34] LABS: Glucose,Whole Blood 163 mg/dL (70-110)
[2023-10-24 21:32] LABS: Glucose,Whole Blood 122 mg/dL (70-110)
[2023-10-24] MEDS: MELATONIN 5 MG TABLET PO SCH (21:40)
[2023-10-24] MEDS: ATORVASTATIN 80 MG TAB PO SCH (21:41)
[2023-10-25] MEDS: IPRATROPIUM-ALBUTEROL 3 ML NEB INHALATION SCH ×6 (01:06→19:40)
[2023-10-25 06:42] LABS: Glucose,Whole Blood 105 mg/dL (70-110)
[2023-10-25] MEDS: INSULIN ASPART (NovoLOG) 100 UNIT/ML VIAL SQ SCH ×4 (06:45→22:31)
[2023-10-25] MEDS: LEVOTHYROXINE 88 MCG TAB PO SCH (06:46)
[2023-10-25] MEDS ORDERED: metOLazone 2.5 MG TAB PO SCH (08:30)
[2023-10-25] MEDS: guaiFENesin 600 MG TABLET.ER PO SCH ×2 (09:12→21:58)
[2023-10-25] MEDS: APIXABAN 5 MG TAB PO SCH ×2 (09:12→21:57)
[2023-10-25] MEDS: FUROSEMIDE 10 MG/ML 10 ML VIAL IV SCH ×2 (09:12→22:31)
[2023-10-25] MEDS: DOCUSATE 100 MG CAP PO SCH ×2 (09:12→21:57)
[2023-10-25] MEDS: AMIODARONE 200 MG TAB PO SCH ×2 (09:12→21:57)
[2023-10-25] MEDS: PANTOPRAZOLE 40 MG/10 ML VIAL IVP SCH (09:12)
[2023-10-25] MEDS: METOPROLOL TARTRATE 50 MG TAB PO SCH ×2 (09:13→21:57)
[2023-10-25] MEDS: polyethylene glycoL 3350 17 GM POWD.PACK PO SCH (09:14)
[2023-10-25] MEDS: DIGOXIN 125 MCG TAB PO SCH (09:16)
[2023-10-25] MEDS: CIPROFLOXACIN HCL 500 MG TAB PO SCH ×2 (09:16→21:58)
[2023-10-25 10:18] LABS: HCT 45.4 % (34.0-46.0); HGB 14.4 gm/dL (11.4-16.0); MCH 31.1 pg (25.0-35.0); MCHC 31.8 g/dL (31.0-37.0); MCV 97.6 fL (80.0-100.0); Mean Platelet Volume 8.2; Platelet Count 208 k/uL (150-450); RBC 4.65 m/uL (3.80-5.40); WBC 20.2 k/uL (3.8-10.6)
[2023-10-25 10:32] LABS: African American GFR (CKD) 70 (>60 ml/min/1.73 sqM); Blood Urea Nitrogen 52 mg/dL (7-17); Calcium 8.5 mg/dL (8.4-10.2); Chloride 93 mmol/L (98-107); Glucose 135 mg/dL (74-99); Non-African American GFR(CKD) 61 (>60 ml/min/1.73 sqM); Potassium 3.8 mmol/L (3.5-5.1); Sodium 137 mmol/L (137-145)
[2023-10-25 10:39] LABS: Anion Gap 10 mmol/L
[2023-10-25 10:46] LABS: Carbon Dioxide 34 mmol/L (22-30)
[2023-10-25 11:17] VITALS: BMI 48.2
[2023-10-25 11:54] LABS: Glucose,Whole Blood 99 mg/dL (70-110)
--- NOTE | 2023-10-25 12:14 | P.PN ---
Subjective Progress Note Date: 10/25/23 Principal diagnosis: Shortness of breath. Pulmonary consult dated 09/30/2023. 73-year-old female who presented to the emergency department on September 26, complaining of arrhythmias, and palpitations. The patient does have a history of hypertension, atrial fibrillation, hyperlipidemia, pulmonary embolism, and hypothyroidism. The patient apparently was having some lower extremity edema, shortness of breath, and orthopnea. She also had mild exertional dyspnea. The patient denied any chest pain or chest discomfort. She was seen by the ER physician, and admitted with a diagnosis of atrial fibrillation, CHF, and urinary tract infection. Today, a rapid response was called on this patient, and, R ICU charge nurse, who evaluated the patient, and thought the patient should come down to the intensive care unit, for further monitoring and management. She was given some IV Lasix, and placed on BiPAP, with settings of 16/6, and 100%. She was seen in the intensive care unit, room 255. She was sitting up in bed, with mild respiratory distress, on the BiPAP device. White count was 13.7, hemoglobin 14.5, hematocrit 44.4, and a normal platelet count. Sodium 135, potassium 3.9, chlorides 96, CO2 27, anion gap 12, BUN 37, and creatinine 1.26. N-terminal proBNP, on September 29, was 7020. The patient had chest x-rays on the and on the . Today's chest x-ray shows worsening pulmonary edema. Progress note dated 10/01/2023. 73-year-old female seen again in intensive care unit, room 255. The patient was admitted with a diagnosis of acute hypoxemic respiratory failure, secondary to CHF, as well as atrial fibrillation with RVR. The patient is currently on high flow nasal O2, at 13 L. In addition, the patient uses BiPAP intermittently at 16/6, and 60%. For her atrial fibrillation and RVR, the patient's on Cardizem 15 mg an hour. Clinically, she's starting to feel a bit better. White count 9.4, hemoglobin 14, hematocrit 43.1, and platelet count 223,000. Sodium 136, potassium 4.1, chlorides 96, CO2 29, BUN 37, and creatinine 1.30. Calcium is 9.2. Chest x-ray shows improved vascular congestion. Progress note dated 10/02/2023. 73-year-old female seen in the intensive care unit, room 255. She was admitted initially with a diagnosis of acute hypoxemic respiratory failure secondary to CHF, as well as atrial fibrillation with rapid ventricular response. The patient is currently on room air, with saturations of 91%. Unfortunately, she continues on Cardizem at 10 mg an hour, and amiodarone at 0.5 mg/m. White count 9, hemoglobin 12.8, hematocrit 39.4, within normal platelet count. Sodium 136, potassium 4.3, chloride 96, CO2 34, BUN 41, creatinine 1.12. Glucose is 112. Urine culture is showing evidence of Escherichia coli. Chest x-ray shows improvement in the patient's pulmonary vascular status. Progress note dated 10/03/2023. 73-year-old female seen today in room 255, intensive care unit. She was admitted with a diagnosis of acute hypoxemic respiratory failure, secondary to CHF, as well as atrial fibrillation, with rapid ventricular response. Currently, the patient is on 2 L of oxygen. She's on a Cardizem drip at 10 mg an hour. She's not receiving any IV fluids additionally. The patient that she is BiPAP, intermittently, with settings of 16/6, and 45%. She use BiPAP last night for about an hour and a half. She needs to be using it more frequently. White count 9.4, hemoglobin 12.9, hematocrit 39.2, and platelet count 187,000. Sodium 136, potassium 4.1, chlorides 97, CO2 32, BUN 36, creatinine 1.06. Gluc ose 116. Calcium is 9. Chest x-ray shows improved pulmonary vascular status. Progress note dated 10/04/2023. 73-year-old female seen again in the intensive care unit, room 255. Currently, she is on 2 L of oxygen. She's on a Cardizem drip at 10 mg an hour, to be dropped on the 5 mg an hour. She did use of BiPAP last night, for many hours, and it seemed to help. Her settings include 16/6, and 45%. She currently remains in atrial fibrillation with a rate of 128 bpm. Labs today include a s odium 138, potassium 4.1, chlorides 98, CO2 31, BUN 40, and creatinine 1.08. Glucose 116. Calcium is 9.1. No chest x-ray today. Progress note dated 10/05/2023. 73-year-old female who was sent out of the intensive care unit yesterday, and came back into the intensive care unit, sometime early this morning. She apparently developed worsening shortness of breath, was severely anxious, receive some benzodiazepine, and, required BiPAP therapy. I was called by the nurse who went to the rapid response, and we decided to move the patient back to the intensive care unit. Currently, she is seen in room 261. She is on BiPAP, with settings of 16/6 and 60%. Gases done on 100% show pO2 of 66, pCO2 61, pH is 7.28. The patient is on Cardizem 5 mg an hour. She's not receiving any additional IV fluids. We did order a chest x-ray today, and N-terminal proBNP. Labs today include a white count 13.8, hemoglobin 13, hematocrit 40.7 and a platelet count 229,000. Sodium 136, potassium 4.6, chlorides 99, CO2 28, BUN 46, creatinine 1.31. Calcium is 9. Today's chest x-rays consistent with cardi omegaly, small bilateral pleural effusions, and pulmonary vascular congestion. Progress note dated 10/06/2023. 73-year-old female readmitted to the intensive care unit, for fluid overload/CHF. The patient is currently seen today in room 261. She is currently on BiPAP, with settings of 16/6, and 50%. She's getting Cardizem 5 mg an hour. Her chest x-ray shows fluid overload, so I increased her Lasix up milligrams IV push every 8 hours. When she was taken off BiPAP yesterday for a brief period of time, she became very anxious, and very short of breath, and, desaturated, and was placed back on BiPAP. White count 9.4, hemoglobin 12.9, hematocrit 40.1, within normal platelet count. Sodium 135, potassium 4.5, chlorides 99, CO2 29, BUN 49, and creatinine 1.11. Her N-terminal proBNP from yesterday was nearly 8000. Chest x-rays consistent with CHF, with effusion. Reevaluated today on 10/17, patient remains in the ICU, remains on BiPAP, she is now on 45%, and the plan is to transition from BiPAP to a high flow nasal cannula. Patient x-ray is showing slight worsening and worsening pulmonary edema and some recommending to increase her Lasix from 40 mg twice a day to 60 mg twice a day. Her IV fluids remains at KVO. Her overall clinical status remains marginal at best. Again there is worsening chest x-ray. Labs are basically unremarkable with improvement in her creatinine down to 1.13 in spite of aggressive diuresis. Looking at the fluid status, patient is -2 L in the last 24 hours Reevaluated today on 10/18/23, patient remains in the ICU, she is now on 4 L nasal cannula and O2 saturations running between 93 up to 97%. Patient seems to be more alert today, not confused, feeling better clinically, and she denies any shortness of breath. Chest x-ray showed significant improvement in her bilateral interstitial edema nonetheless she continues to have some left pleural effusion not large enough to consider thoracentesis again at this point. Yesterday I have increased her Lasix to 60 mg twice a day, and his chest x-ray is definitely showing improvement. Patient is negative fluid balance about 5 L in the last 2 days. And she continues to diurese, renal functioning is maintaining with creatinine of 1.15 today, steadily improving over the last 5 days in spite of aggressive diuresis. Her metoprolol dose was increased as well as her amiodarone dose increased by cardiology on the case Reevaluated today on 10/19/23, patient remains in, she is now on 4 L nasal cannula, she seems to be tachycardic, and her atrial fibrillation is still not fully controlled, patient has been seen by cardiology and her metoprolol was increased to 150 twice a day and amiodarone was increased to 400 twice a day. Patient is on 4 L but at night she goes on 10/30/45%. Does not seem to be in any distress, she is basically asymptomatic. IV fluids at KVO. And the patient remains on diuretics. Renal function continues to improve creatinine is 1.13 basic metabolic profile is relatively normal bicarb is 35 BUN is 68 WBC 12.8 hemoglobin 13.6 chest x-ray from yesterday showed improved aeration of the lungs has the patient had no change in her diuretics dose Reevaluated today on 10/20/23 patient remains in the ICU, remains on 4 L nasal cannula, doing great, relatively asymptomatic, patient is in good spirits, her IV fluids at KVO, patient is being transferred today [facility]. In the meantime I am planning to continue her diuretics, and continue antibiotics for UTI. Basic metabolic profile is normal and her BUN is 67 creatinine 1.01 today, no major issues overnight. Patient does have cool left lower extremity and left foot, she has also noted by Doppler. No evidence of acute ischemic changes. Her right foot seems to be warm and slightly swollen. Progress note dated 10/21/2023. 73-year-old female who I last saw on October 06. She was initially admitted to the intensive care unit for fluid overload/CHF. She was previously on BiPAP, and is been in and out of the intensive care unit. Currently, the patient's on 3 L of oxygen by nasal cannula. She is getting saline at 10 mL an hour. The patient appears to be doing much better, and is hoping to be discharged out of the intensive care unit. White count is 14.1, hemoglobin 14, hematocrit 43.6, and platelet count 270,000. Sodium 136, potassium 4.2, chlorides 96, CO2 34, BUN 65, and creatinine 0.91. Progress note dated 10/22/2023. 3-year-old female seen yesterday, October 21, and room 264, intensive care unit. She was initially admitted to the intensive care unit, for fluid overload,/CHF. Currently, the patient is on 2 L of oxygen. She's not receiving any IV fluids. She is currently not using BiPAP. White count is 14.3, hemoglobin 14.3, hematocrit 44.9, and platelet count 249,000. Sodium 137, potassium 4.2, chlorides 95, CO2 37, BUN 57, and creatinine 1.03. Albumin is 3. Total protein is 5.4. No recent chest x-ray to report. Progress note dated 10/23/2023. 73-year-old female seen in room 264. Currently, the patient's on oxygen at 2 L by nasal cannula. She's not receiving any IV fluids. She was initially admitted to the intensive care unit, for fluid overload/CHF. She's now been in the hospital for 27 days. No new labs today. Glucose is 149. A PICC line will be placed today. Progress note dated 10/24/2023. The patient is seen today in room 264. She's not receiving any IV fluids. She is on 2 L of oxygen. Generally speaking, she is doing much better. She still has some lower extremity edema. Labs, x-rays, and medications are all reviewed. White count 14.5, hemoglobin 14.6, hematocrit 46.7, and platelet count 249,000. Sodium 139, potassium 4.3, chloride 92, CO2 40, anion gap 7, BUN 53, and the creatinine is 0.91. AST is 37. ALT is 131. Albumin 2.9. Most recent glucose is 144. Chest x-ray shows no major change. There is a right hilar masslike airspace process. There is cardiomegaly. There is mild pulmonary edema. Progress note dated 10/25/2023. The patient is seen again in room 264. She's not receiving any IV fluids. She continues on 2 L of oxygen. Clinically, she's doing much better. Her lower extremity edema is still present, but improved. White count 20.2, hemoglobin 14.4, hematocrit 45.4, and a normal platelet count. Sodium 137, potassium 3.8, chlorides 93, CO2 34, BUN 52, and creatinine 0.93. Glucose 135. Objective - Vital Signs Vital signs: Vital Signs Temp 98.2 F 10/25/23 04:00 Pulse 93 10/25/23 12:00 Resp 22 10/25/23 12:00 BP 104/59 10/25/23 12:00 Pulse Ox 95 10/25/23 12:00 FiO2 4 10/19/23 08:00 Intake & Output 10/24/23 10/25/23 10/25/23 18:59 06:59 18:59 Intake Total 850 350 Output Total 2230 975 1100 Balance -4136 -677 -750 Weight 131.6 kg 131.6 kg Intake: Oral 850 350 Output: Urine 2230 975 1100 Other: Voiding Method Indwelling Catheter Indwelling Catheter ABP, PAP, CO, CI - Last Documented Arterial Blood Pressure 116/63 - Exam Currently on nasal oxygen at 2 L/m. The patient is awake and alert. HEENT examination is grossly unremarkable. Neck supple. Full range of motion. No adenopathy thyromegaly or neck vein distention. Cardiovascular examination reveals an irregular rhythm and rate. S1-S2 normal. No S3 or S4. No discernible murmur noted. Heart rate 89. Heart sounds are distant. Lungs reveal by basilar crackles. Breath sounds are equal bilaterally. No rhonchi. No wheezes. Saturations are 95 %. Abdomen soft bowel sounds are heard. No masses or tenderness. Extremities are intact. No cyanosis or clubbing. Mild lower extremity edema. Skin is without rash or lesion. Neurologic examination is brief but nonfocal. - Labs CBC & Chem 7: 10/25/23 09:50 10/25/23 09:50 Labs: Abnormal Lab Results - Last 24 Hours (Table) 10/24/23 10/24/23 10/24/23 Range/Units 16:19 20:32 21:31 WBC (3.8-10.6) k/uL Chloride (98-107) mmol/L Carbon Dioxide (22-30) mmol/L BUN (7-17) mg/dL Glucose (74-99) mg/dL POC Glucose (mg/dL) 155 H 163 H 122 H (70-110) mg/dL 10/25/23 10/25/23 Range/Units 09:50 09:50 WBC 20.2 H (3.8-10.6) k/uL Chloride 93 L (98-107) mmol/L Carbon Dioxide 34 H (22-30) mmol/L BUN 52 H (7-17) mg/dL Glucose 135 H (74-99) mg/dL POC Glucose (mg/dL) (70-110) mg/dL Assessment and Plan Assessment: Acute hypoxemic respiratory failure, secondary to worsening systolic congestive heart failure. History of chronic atrial fibrillation, with rapid ventricular response. Bilateral pleural effusions, secondary to CHF. Escherichia coli urinary tract infection, resolved. History of hypertension. History of hyperlipidemia. History of pulmonary embolism. History of hypothyroidism. History of osteoarthritis. Plan: Plan dated 09/30/2023. The patient is seen today in the intensive care unit, room 255. She is on BiPAP currently, and I've asked the nurses, to inform respiratory therapy, to wean the patient's FiO2 down, as she improves. The patient has received additional Lasix, 40 mg earlier, and another 40 mg IV push now. The patient was placed on 40 mg of Lasix, IV push every 8 hours. We will continue to follow and make winsome mmendations along the way. Labs, x-rays, and medications are reviewed. Prognosis is guarded. Plan dated 10/01/2023. Patient is seen in the intensive care unit, room 255. Currently, she is on high flow nasal O2 at 13 L. In addition, she is on BiPAP, intermittently at 16/6, and 60%. Because of her atrial fibrillation and RVR, she is currently on Cardizem 50 mg an hour. On auscultation, she has bibasilar crackles, and, she is in atrial fibrillation. She has lower extremity edema as well. Labs, x- rays, medications are reviewed. We will continue to follow and make recommendations along the way. Her prognosis is certainly guarded. Plan dated 10/02/2023. The patient is seen in room 255. Currently, she is on room air, and saturations are 91%. Her nurse will probably place her back on oxygen at 2 L. The patient still having atrial fibrillation with rapid ventricular response, and for that reason, she is on Cardizem at 10 mg an hour, and amiodarone at 0.5 mg/m. Her examination still reveals evidence of bibasilar crackles, and lower extremity edema. Labs, x-rays, and medications are reviewed. The patient's overall prognosis remains guarded. She obviously cannot be the ICU at this time. Plan dated 10/03/2023. The patient is seen today in room 255. She's currently on 2 L. She continues on Cardizem for atrial fibrillation and RVR, 10 mg an hour. She's not getting any additional IV fluids. She didn't use BiPAP last night, for about an hour and a half. Her BiPAP settings are 16/6 and 45%. She may need to use it more than she's currently using it. Labs, x-rays, medications are reviewed. Overall prognosis remains guarded. We will continue to follow the patient, and make recommendations along the way. Plan dated 10/04/2023. The patient is seen today in room 255. She remains on 2 L of oxygen. She's on a Cardizem drip at 10 mg an hour. He'll be turned down to 5 mg an hour. She does continue on IV Lasix. Her lower extremity edema is much improved. Labs, x-rays, and medications are reviewed. We will continue to follow the patient, and make recommendations along the way. No additional comments at this time. Her overall prognosis remains guarded. She did use of BiPAP last night, which is really seem to help. We encourage her to use it nightly, as it will reduce venous return, reduce preload, and help her with her congestive heart failure. Plan dated 10/05/2023. The patient is seen today in room 261. She was in the intensive care unit, for the last few days, and no doubt yesterday. Unfortunately, because of worsening respiratory status and CHF, she was transferred back to the intensive care unit, sometime early this morning. Currently, the patient's on BiPAP, with settings of 16/6 and 60%. Her gases have been reviewed. She continues on Cardizem 5 mg an hour. Labs, x-rays, and medications are reviewed. We will continue to follow and make recommendations along the way. Prognosis is certainly very guarded. Plan dated 10/06/2023. Patient is again seen today in the intensive care unit, room 261. She has ongoing respiratory failure secondary to CHF. In addition, she has atrial fibrillation, with a rapid ventricular response. She continues on BiPAP, at 16/6, and 50%. She also continues on Cardizem, 5 mg an hour. Lasix is increased to 40 mg IV push, every 8 hours. When she was taken off BiPAP yesterday, she did poorly. Labs, x-rays, and medications are reviewed. We will continue to follow the patient, and make recommendations along the way. Her overall prognosis remains very guarded. Plan dated 10/21/2023. The patient appears to be doing relatively well. The patient is stable to be transferred out of the intensive care unit. Currently, she is on 3 L of oxygen. She's getting saline at 10 mL an hour. Labs, x-rays, medications are reviewed. The patient is in good spirits, and is alert and awake. We will continue to follow and make recommendations along the way. Prognosis is certainly guarded, given the fact that she's been in the hospital now for 25 days. Plan dated 10/22/2023. The patient appears to be doing better. She seen today in room 264. She's been weaned down to 2 L. Saturations are in the mid 90s. Labs, x-rays, and medications are reviewed. The patient's overall prognosis remains guarded, but the patient can be transferred out of the intensive care unit. She is alert and awake. Plan dated 10/23/2023. The patient is resting comfortably today in room 264. She will have a PICC line placed sometime today. She continues on oxygen at 2 L. Labs, x-rays, medicat ions are reviewed. The patient is stable be transferred out of the intensive care unit. We will continue to follow the patient, and make recommendations along the way. Her overall prognosis though, remains guarded. Plan dated 10/24/2023. The patient is seen today in room 264. She is resting comfortably. She continues on oxygen at 2 L. She's not receiving any IV fluids. Labs, x-rays, and medications are reviewed. The patient could be transferred out to the cardiac floor. She continues on ciprofloxacin. Corticosteroids will be discontinued. No additional recommendations are made. Plan dated 10/25/2023. The patient continues to do very well. The patient could be transferred out of the intensive care unit. Labs, x-rays, and medications are reviewed. We will continue to follow the patient, and make recommendations along the way. The patient's overall prognosis remains guarded. She continues on antibiotics. Corticosteroids were discontinued yesterday. Time with Patient: Less than 30
[2023-10-25] MEDS ORDERED: POTASSIUM CHLORIDE ER 20 MEQ TAB.ER PO SCH (13:00)
--- NOTE | 2023-10-25 13:49 | P.PN ---
Subjective Progress Note Date: 10/25/23 H&P Date: 09/27/23 Chief Complaint: Palpitations, dyspnea This is a 73-year-old female with past medical history significant for atrial fibrillation, PE, status post EKOS 02/2022, hypertension, hypothyroidism admitted with atrial fibrillation with RVR and multiple other medical issues.Evaluated and treated by cardiology. Presented to the hospital with complaints of heart palpitations, hypertension , shortness of breath 1 week.Positive orthopnea , reports sleeping sitting up in a recliner as well as living downstairs in her home to avoid climbing stairs. Cardizem drip initiated, rate improving. Cardiology consult in place. Troponins negative 3 , proBNP pending .EKG rate atrial fibrillation with RVR heart rate 132 . Echo reported normal LV f unction, mild pulmonary hypertension, moderate mitral and moderate tricuspid regurgitation .Chest x-ray no acute pulmonary process. UA reports positive nitrates, many bacteria, small leukocytes, urine culture pending. 09/30/2023 recently placed on 2 L nasal cannula, then increased to 4 L, ebony [place] O2 sats in the low 90s .complains of mild increased shortness of breath, which she reports started actually during the night. She has been on Lasix IV push every 12 hours, 24-hour I&O reflecting a negative fluid balance. Renal function mildly worsened, BUN 37, creatinine 1.26. Sodium 125 .Maintained on Rocephin for acute UTI. Afebrile, WBC 13.7. Blood sugars controlled. 10/01/23 yesterday developed worsening pulmonary edema, transfer to ICU. Chest x-ray at that time reported worsening of large perihilar consolidation noted greater on the right, pulmonary edema versus diffuse pneumonia. Received additional Lasix IV push, frequency increased yesterday diuresed well with 24-hour I&O reflecting a negative fluid balance. Maintained on BiPAP throughout the night, placed on 13 L nasal cannula to facilitate patient's diet intake this morning. Chest x-ray repeated this morning reporting improving bilateral areas of consolidation. Telemetry sinus rhythm, continues on Cardizem drip, tachycardic with heart rates in the 130s to 140s. Denies chest pain, palpitations. Afebrile, normal WBC. BUN 37, creatinine 1.30. Blood sugars controlled. 10/07/23 used BiPAP overnight, currently maintaining O2 sats in the 90s on 6 L nasal cannula. Chest x-ray reported bilateral pleural effusions, chest ultrasound reported right pleural effusion 6.8 cm, left pleural effusion 7.5 cm with both marked for possible thoracentesis. Diuresing on Lasix IV push with 24-hour I&O reflecting a negative fluid balance, but continues to have significant lower extremity edema. Telemetry atrial fibrillation with heart rates up to 120s. Reports palpitations, no chest pain. Evaluated by [facility] rdiology, discussing RICO with cardioversion. 10/08/23 Eliquis on hold. status post right thoracentesis with 1200 MLS turbid pleural drainage aspirated. Tolerated procedure well. Postprocedure x-ray reported no pneumothorax, bilateral lower lobe infiltrate and small left effusion. Using BiPAP at night. Currently seem on Lasix IV push with 24-hour I&O reflecting a negative fluid balance. Telemetry atrial fibrillation with heart rates ranging from 90 to 110s. Maintaining O2 in the high 90s on 4-5 L nasal cannula. Bicarb 34, BUN 41, creatinine 1.03. 10/09/2023 chest x-ray reporting bilateral lower lobe infiltrate and small left effusion/no sizable pleural effusion on the right/no pneumothorax. Status post left thoracentesis this morning with 550 MLS turbid pleural drainage aspirated. Tolerated procedure well. Postprocedure chest x-ray reported no pneumothorax. Maintained on oral antiarrhythmics ,telemetry reporting atrial fibrillation. Cardioversion pending. Afebrile, normal WBC. Continues diuresing well on Lasix IV push with 24-hour I&O reflecting a negative fluid balance. sodium 136, potassium 3.8, bicarb 37, BUN 38, creatinine 0.97. Maintaining O2 sats in the 90s on 3 L nasal cannula. 10/10/2023 Eliquis resumed yesterday after thoracentesis. Pleural fluid Cy tology pending . Telemetry atrial fibrillation, heart rate better controlled today on oral amiodarone, metoprolol, Cardizem. Cardioversion pending. BiPAP throughout the night. Denies chest pain, palpitations or shortness of breath. Maintaining O2 sats in the 90s on 2 L nasal cannula. Continues diuresing well on Lasix IV push with 24-hour I&O reflecting a negative fluid balance. Afebrile, normal WBC. Potassium 3.6, receiving replacement. BUN 36, creatinine 1.1 10/11/2023 BiPAP for short while during the night. Currently maintaining O2 sat in the 90s on room air. Continues diuresing well on Lasix IV push with 24-hour I&O reflecting a negative fluid balance. BUN 34, creatinine 1.24. Pleural fluid cytology pending. Cardizem discontinued, continues on amiodarone with metoprolol increased, A. fib controlled. Afebrile, normal WBC. Reports she ambulated yesterday, tolerated exertion well, O2 sat on room air after ambulation 95%. 10/14/2023 intubated, FiO2 40%/PEEP recently decreased to 8. Chest x-ray reported low lung volumes with grossly stable lung parenchyma opacities predominantly in lung bases, layering bilateral pleural effusions, Continues on diprovan, levophed and IV fluid hydration with saline 100 MLS an hour. Right pleural fluid cytology negative for malignancy. BNP 9280. BUN 62, creatinine increased to 2.39, lasix resumed. Continues on cefepime. Afebrile, WBC 24.6. Telemetry atrial fibrillation with RVR, antiarrhythmics adjusted per cardiology. 10/15/23 remains vent dependent with FiO2 40%/+8 of PEEP. Continues on levothyroid and diprovan. Maintained on empiric cefepime. Chest x-ray reporting stable; per pulmonary, pneumonia less likely. WBC decreased to 14.7. BUN 62, creatinine improving, decreased to 1.58. Reports patient follows commands. Echo reported suboptimal , reporting mild LV dysfunction. Telemetry atrial fibrillation with RVR, on oral amiodarone, beta jorge alberto increased with digoxin added to med regimen. Lasix resumed with improving urine output. 10/24/2023 maintaining O2 sats in the 90s on 2 L nasal cannula. Chest x-ray pending. Telemetry atrial fibrillation. Diuresing well on Lasix IV push with 24-hour I&O reflecting a negative fluid balance. BUN 53, creatinine 0.91. Blood sugars controlled. 10/25/2023 continues on Cipro, nebulized bronchodilators . Afebrile, maintaining O2 sats in the 90s on 2 L nasal cannula. Maintained on oral amiodarone, digoxin and metoprolol. Telemetry atrial fibrillation with rate in the low 100s currently. Slept well last night. Denies chest pain, palpitations or increasing shortness of breath. Objective - Vital Signs Vital signs: Vital Signs Temp 98.2 F 10/25/23 04:00 Pulse 93 10/25/23 12:00 Resp 22 10/25/23 12:00 BP 104/59 10/25/23 12:00 Pulse Ox 95 10/25/23 12:00 FiO2 4 10/19/23 08:00 Intake & Output 10/24/23 10/25/23 10/25/23 18:59 06:59 18:59 Intake Total 850 650 Output Total 2230 975 1400 Balance -5352 -428 -750 Weight 131.6 kg 131.6 kg Intake: Oral 850 650 Output: Urine 2230 975 1400 Other: Voiding Method Indwelling Catheter Indwelling Catheter Indwelling Catheter ABP, PAP, CO, CI - Last Documented Arterial Blood Pressure 116/63 - Exam PHYSICAL EXAM: VITAL SIGNS: [As above] GENERAL: Alert and oriented 3, sitting up in bed, no acute distress. HEENT: Normocephalic, Conjunctivae normal. NECK: Supple, No JVD. CARDIOVASCULAR: S1, S2. irregular. Mild Tachycardia. Systolic murmur. RESPIRATION: Unlabored, equal air entry, fine bibasilar crackles ABDOMEN: Soft, nondistended, nontender. +BS LEGS: Mild bilateral lower extremity edema,. NERVOUS SYSTEM: No focal deficits. Skin: Warm and dry, no rash - Labs CBC & Chem 7: 10/25/23 09:50 10/25/23 09:50 Labs: Abnormal Lab Results - Last 24 Hours (Table) 10/24/23 10/24/23 10/24/23 Range/Units 16:19 20:32 21:31 WBC (3.8-10.6) k/uL Chloride (98-107) mmol/L Carbon Dioxide (22-30) mmol/L BUN (7-17) mg/dL Glucose (74-99) mg/dL POC Glucose (mg/dL) 155 H 163 H 122 H (70-110) mg/dL 10/25/23 10/25/23 Range/Units 09:50 09:50 WBC 20.2 H (3.8-10.6) k/uL Chloride 93 L (98-107) mmol/L Carbon Dioxide 34 H (22-30) mmol/L BUN 52 H (7-17) mg/dL Glucose 135 H (74-99) mg/dL POC Glucose (mg/dL) (70-110) mg/dL Assessment and Plan Assessment: Chronic Atrial fibrillation with rapid ventricular rate Secondary Hypotension, pressor dependent Acute on chronic CHF exacerbation, diastolic dysfunction, ef 55-60%. Bilateral pleural effusions status post bilateral thoracentesis,transudative. Cytology negative for malignancy. Possible underlying pneumonia, felt to be less likely as per pulmonary. Acute hypoxic respiratory failure , status post mechanical ventilator-dependent ,secondary to the above Acute UTI, E. coli , completed antibiotic treatment Acute on chronic renal failure, stage III Pulmonary embolism bilaterally status post EKOS, 03/14/2022 Pulmonary hypertension Moderate mitral and tricuspid regurgitation Hypothyroidism Hypertension, history of Hyperlipidemia Osteoarthritis with history right knee placement in July 2022. Morbid obesity, BMI 46 Plan: Continue on current medication regime ,monitoring and symptomatic treatment. Selective overflow .Antiarrhythmics as per cardiology. PT. Prognosis guarded given multiple complex medical issues. The impression and plan of care has been dictated as directed. : I performed a history and examination of this patient, discussed the same with the dictator. I agree with the dictator's note ,documented as a scribe. Any additional findings or plans will be noted.
--- NOTE | 2023-10-25 18:08 | P.PN ---
Subjective Progress Note Date: 10/25/23 The patient is a 73-year-old female patient with history of heart failure as well as atrial fibrillation as well as hypertension and dyslipidemia and renal failure was admitted to the hospital with acute hypoxic respiratory failure. Initially she was started on diuretics for heart failure subsequently she developed renal failure and the diuretics was a systolic. Currently she is intubated and she is on mechanical ventilation for possible underlying pneumonia/sepsis and currently she is on norepinephrine 10/14/2023 The patient was seen and evaluated this morning. The patient remains intubated on mechanical ventilation. She remains hypotensive requiring norepinephrine. She is on amiodarone orally. She remains in nature fibrillation with overall heart rate around 120 bpm. I'm going to add a small dose of beta jorge alberto with metoprolol tartrate 12.5 mg by mouth twice a day to the current medical regimen. Continue oral anticoagulation. She is in process of having an echocardiogram later on today. The examination is remarkable for irregular rhythm with a systolic murmur at the right and left upper sternal border and bilateral upper and lower extremities edema October 152022 The patient was seen and evaluated this morning. She remains in atrial fibrillation with overall uncontrolled heart rate in spite of increasing the dose of metoprolol. She is also on amiodarone. I'm going to add digoxin to the current medical regimen. She does have edema in the lower extremities and she was started on Lasix IV. Her kidney function is slightly abnormal. The examination is remarkable for irregular heart rhythm with diminished breathing sounds bilaterally and bilateral lower extremities edema 10/16/2023 The patient was seen and evaluated this morning. She is awake. He potentially can be extubated later on today. Hemodynamically stable. The heart rate has somewhat improved continues to be in the 100 bpm. I'm going to increase the dose of beta jorge alberto with metoprolol to 50 mg by mouth twice a day. Continue digoxin and continue amiodarone and continue oral anticoagulation. She is having edema in the upper and lower extremity is and she is on Lasix IV which we will continue. October 172022 The patient was seen and evaluated this morning. She was extubated yesterday. Hemodynamically she is stable beside heart rate around 120 beats per minutes. Pressure is a stable. For that reason I'm going to increase the dose of metoprolol to 50 mg by mouth 3 times a day. She still have upper and lower extremities edema and she is on Lasix IV and has been making urine. She is on oral anticoagulation. She still on oxygen at 3 L at this point. The chest x- ray continues to show finding of bilateral infiltrate/heart failure 10/18/2023 The patient was seen and evaluated this morning. She was extubated 48 hours ago. Hemodynamically she is stable beside still tachycardia with the atrial fibrillation. She is on anticoagulation. I'm going to increase the dose of metoprolol and increase dose of amiodarone as well. She still hypoxic requiring oxygen. She started having upper and lower extremity is edema and she is on Lasix IV. The creatinine remains stable 10/19/2023 The patient was seen and evaluated this morning. She still tachycardic in atrial fibrillation. I'm going to increase the dose of amiodarone and metoprolol [place] she is on oral anticoagulation which is still congested and currently she is on Lasix IV. The creatinine remains stable. Examination is remarkable for severe eye lateral lower extremity is edema 10/20/2023 The patient was seen and evaluated this morning. She is doing overall better. The atrial fibrillation has been under control on the current dose of amiodarone are on and metoprolol and digoxin. As a matter of fact she started trending down and without being seen in one to decrease the dose of amiodarone and potentially decrease the dose of metoprolol if she starts going further down in the heart rate. She still hypervolemic. She continues to be on Lasix IV. The creatinine remains stable. The examination is remarkable for severe bilateral lower extremity is edema and diminished breathing sounds bilaterally and irregular rhythm 10/22/23 Patient's atrial fibrillation is rate controlled on amiodarone metoprolol and digoxin. Patient is still hypervolemic and is needing Lasix. She is appropriate urine output. 10/23/23 Patient continues to be in atrial fibrillation which is rate controlled on amiodarone, metoprolol and digoxin. Patient is still hypervolemic Cardizem IV Lasix. She has appropriate urine output. 10/24/23 Patient is seen and examined at bedside the same. She is doing well from cardiac vessel standpoint. She continues to be in rate controlled atrial fibrillation. She is having adequate urine output with IV Lasix 60 mg BID. Labs. CBC 14, bilirubin 14, BUN 53, creatinine 0.9 BP 114/52, heart rate 95 10/25/23 Patient is seen and examined at bedside the same. Patient received an additional dose of metolazone 2.5 mg with morning Lasix today and she had good urine output after that. Her lower extremities are less swollen as compared to yesterday. Chest x-ray continues to be congested. She is on Imuran antibody therapy. Blood pressure stable, rate controlled atrial fibrillation Assessment Heart failure with preserved ejection fraction Pneumonia/sepsis Acute hypoxic respiratory failure secondary to the above Acute on chronic renal failure Atrial fibrillation with uncontrolled heart rate Multiple comorbid conditions Plan Continue the current dose of Lasix IV. Give metolazone 2.5 mg with morning Lasix. Patient's kidney function has stayed stable. She still appears volume overloaded with swelling in bilateral lower extremities. She does have crackles in bilateral lung acuna which is better since 10/24/23. Continue monitoring her kidney function and electrolytes Continue metoprolol 150mg BID, amiodarone 200mg and digoxin 0.125mg Prognosis guarded. Objective - Vital Signs Vital signs: Vital Signs Temp 98.2 F 10/25/23 04:00 Pulse 85 10/25/23 15:38 Resp 22 10/25/23 12:00 BP 104/59 10/25/23 12:00 Pulse Ox 95 10/25/23 12:00 FiO2 4 10/19/23 08:00 Intake & Output 10/24/23 10/25/23 10/25/23 18:59 06:59 18:59 Intake Total 850 650 Output Total 2230 975 1400 Balance -9215 -391 -750 Weight 131.6 kg 131.6 kg Intake: Oral 850 650 Output: Urine 2230 975 1400 Other: Voiding Method Indwelling Catheter Indwelling Catheter Indwelling Catheter ABP, PAP, CO, CI - Last Documented Arterial Blood Pressure 116/63 - Labs CBC & Chem 7: 10/25/23 09:50 10/25/23 09:50 Labs: Abnormal Lab Results - Last 24 Hours (Table) 10/24/23 10/24/23 10/25/23 Range/Units 20:32 21:31 09:50 WBC 20.2 H (3.8-10.6) k/uL Chloride (98-107) mmol/L Carbon Dioxide (22-30) mmol/L BUN (7-17) mg/dL Glucose (74-99) mg/dL POC Glucose (mg/dL) 163 H 122 H (70-110) mg/dL 10/25/23 Range/Units 09:50 WBC (3.8-10.6) k/uL Chloride 93 L (98-107) mmol/L Carbon Dioxide 34 H (22-30) mmol/L BUN 52 H (7-17) mg/dL Glucose 135 H (74-99) mg/dL POC Glucose (mg/dL) (70-110) mg/dL
[2023-10-25] MEDS: MELATONIN 5 MG TABLET PO SCH (21:57)
[2023-10-25] MEDS: ATORVASTATIN 80 MG TAB PO SCH (21:57)
[2023-10-25 22:01] LABS: Glucose,Whole Blood 104 mg/dL (70-110)
[2023-10-26] MEDS: IPRATROPIUM-ALBUTEROL 3 ML NEB INHALATION SCH ×4 (00:28→11:54)
[2023-10-26] MEDS: LEVOTHYROXINE 88 MCG TAB PO SCH (06:44)
[2023-10-26 06:49] LABS: Glucose,Whole Blood 109 mg/dL (70-110)
[2023-10-26] MEDS: INSULIN ASPART (NovoLOG) 100 UNIT/ML VIAL SQ SCH ×4 (08:12→21:54)
[2023-10-26] MEDS: polyethylene glycoL 3350 17 GM POWD.PACK PO SCH (08:23)
[2023-10-26] MEDS: FUROSEMIDE 10 MG/ML 10 ML VIAL IV SCH ×2 (08:23→21:54)
[2023-10-26] MEDS: PANTOPRAZOLE 40 MG/10 ML VIAL IVP SCH (08:23)
[2023-10-26] MEDS: metOLazone 2.5 MG TAB PO SCH (08:24)
[2023-10-26] MEDS: DOCUSATE 100 MG CAP PO SCH ×2 (08:24→21:54)
[2023-10-26] MEDS: guaiFENesin 600 MG TABLET.ER PO SCH ×2 (08:24→21:54)
[2023-10-26] MEDS: APIXABAN 5 MG TAB PO SCH ×2 (08:24→21:54)
[2023-10-26] MEDS: AMIODARONE 200 MG TAB PO SCH ×2 (08:24→21:54)
[2023-10-26] MEDS: DIGOXIN 125 MCG TAB PO SCH (08:24)
[2023-10-26] MEDS: METOPROLOL TARTRATE 50 MG TAB PO SCH ×2 (09:20→21:53)
--- NOTE | 2023-10-26 10:34 | P.PN ---
Subjective Progress Note Date: 10/26/23 Principal diagnosis: Shortness of breath. Pulmonary consult dated 09/30/2023. 73-year-old female who presented to the emergency department on September 26, complaining of arrhythmias, and palpitations. The patient does have a history of hypertension, atrial fibrillation, hyperlipidemia, pulmonary embolism, and hypothyroidism. The patient apparently was having some lower extremity edema, shortness of breath, and orthopnea. She also had mild exertional dyspnea. The patient denied any chest pain or chest discomfort. She was seen by the ER physician, and admitted with a diagnosis of atrial fibrillation, CHF, and urinary tract infection. Today, a rapid response was called on this patient, and, R ICU charge nurse, who evaluated the patient, and thought the patient should come down to the intensive care unit, for further monitoring and management. She was given some IV Lasix, and placed on BiPAP, with settings of 16/6, and 100%. She was seen in the intensive care unit, room 255. She was sitting up in bed, with mild respiratory distress, on the BiPAP device. White count was 13.7, hemoglobin 14.5, hematocrit 44.4, and a normal platelet count. Sodium 135, potassium 3.9, chlorides 96, CO2 27, anion gap 12, BUN 37, and creatinine 1.26. N-terminal proBNP, on September 29, was 7020. The patient had chest x-rays on the and on the . Today's chest x-ray shows worsening pulmonary edema. Progress note dated 10/01/2023. 73-year-old female seen again in intensive care unit, room 255. The patient was admitted with a diagnosis of acute hypoxemic respiratory failure, secondary to CHF, as well as atrial fibrillation with RVR. The patient is currently on high flow nasal O2, at 13 L. In addition, the patient uses BiPAP intermittently at 16/6, and 60%. For her atrial fibrillation and RVR, the patient's on Cardizem 15 mg an hour. Clinically, she's starting to feel a bit better. White count 9.4, hemoglobin 14, hematocrit 43.1, and platelet count 223,000. Sodium 136, potassium 4.1, chlorides 96, CO2 29, BUN 37, and creatinine 1.30. Calcium is 9.2. Chest x-ray shows improved vascular congestion. Progress note dated 10/02/2023. 73-year-old female seen in the intensive care unit, room 255. She was admitted initially with a diagnosis of acute hypoxemic respiratory failure secondary to CHF, as well as atrial fibrillation with rapid ventricular response. The patient is currently on room air, with saturations of 91%. Unfortunately, she continues on Cardizem at 10 mg an hour, and amiodarone at 0.5 mg/m. White count 9, hemoglobin 12.8, hematocrit 39.4, within normal platelet count. Sodium 136, potassium 4.3, chloride 96, CO2 34, BUN 41, creatinine 1.12. Glucose is 112. Urine culture is showing evidence of Escherichia coli. Chest x-ray shows improvement in the patient's pulmonary vascular status. Progress note dated 10/03/2023. 73-year-old female seen today in room 255, intensive care unit. She was admitted with a diagnosis of acute hypoxemic respiratory failure, secondary to CHF, as well as atrial fibrillation, with rapid ventricular response. Currently, the patient is on 2 L of oxygen. She's on a Cardizem drip at 10 mg an hour. She's not receiving any IV fluids additionally. The patient that she is BiPAP, intermittently, with settings of 16/6, and 45%. She use BiPAP last night for about an hour and a half. She needs to be using it more frequently. White count 9.4, hemoglobin 12.9, hematocrit 39.2, and platelet count 187,000. Sodium 136, potassium 4.1, chlorides 97, CO2 32, BUN 36, creatinine 1.06. Gluc ose 116. Calcium is 9. Chest x-ray shows improved pulmonary vascular status. Progress note dated 10/04/2023. 73-year-old female seen again in the intensive care unit, room 255. Currently, she is on 2 L of oxygen. She's on a Cardizem drip at 10 mg an hour, to be dropped on the 5 mg an hour. She did use of BiPAP last night, for many hours, and it seemed to help. Her settings include 16/6, and 45%. She currently remains in atrial fibrillation with a rate of 128 bpm. Labs today include a s odium 138, potassium 4.1, chlorides 98, CO2 31, BUN 40, and creatinine 1.08. Glucose 116. Calcium is 9.1. No chest x-ray today. Progress note dated 10/05/2023. 73-year-old female who was sent out of the intensive care unit yesterday, and came back into the intensive care unit, sometime early this morning. She apparently developed worsening shortness of breath, was severely anxious, receive some benzodiazepine, and, required BiPAP therapy. I was called by the nurse who went to the rapid response, and we decided to move the patient back to the intensive care unit. Currently, she is seen in room 261. She is on BiPAP, with settings of 16/6 and 60%. Gases done on 100% show pO2 of 66, pCO2 61, pH is 7.28. The patient is on Cardizem 5 mg an hour. She's not receiving any additional IV fluids. We did order a chest x-ray today, and N-terminal proBNP. Labs today include a white count 13.8, hemoglobin 13, hematocrit 40.7 and a platelet count 229,000. Sodium 136, potassium 4.6, chlorides 99, CO2 28, BUN 46, creatinine 1.31. Calcium is 9. Today's chest x-rays consistent with cardi omegaly, small bilateral pleural effusions, and pulmonary vascular congestion. Progress note dated 10/06/2023. 73-year-old female readmitted to the intensive care unit, for fluid overload/CHF. The patient is currently seen today in room 261. She is currently on BiPAP, with settings of 16/6, and 50%. She's getting Cardizem 5 mg an hour. Her chest x-ray shows fluid overload, so I increased her Lasix up milligrams IV push every 8 hours. When she was taken off BiPAP yesterday for a brief period of time, she became very anxious, and very short of breath, and, desaturated, and was placed back on BiPAP. White count 9.4, hemoglobin 12.9, hematocrit 40.1, within normal platelet count. Sodium 135, potassium 4.5, chlorides 99, CO2 29, BUN 49, and creatinine 1.11. Her N-terminal proBNP from yesterday was nearly 8000. Chest x-rays consistent with CHF, with effusion. Reevaluated today on 10/17, patient remains in the ICU, remains on BiPAP, she is now on 45%, and the plan is to transition from BiPAP to a high flow nasal cannula. Patient x-ray is showing slight worsening and worsening pulmonary edema and some recommending to increase her Lasix from 40 mg twice a day to 60 mg twice a day. Her IV fluids remains at KVO. Her overall clinical status remains marginal at best. Again there is worsening chest x-ray. Labs are basically unremarkable with improvement in her creatinine down to 1.13 in spite of aggressive diuresis. Looking at the fluid status, patient is -2 L in the last 24 hours Reevaluated today on 10/18/23, patient remains in the ICU, she is now on 4 L nasal cannula and O2 saturations running between 93 up to 97%. Patient seems to be more alert today, not confused, feeling better clinically, and she denies any shortness of breath. Chest x-ray showed significant improvement in her bilateral interstitial edema nonetheless she continues to have some left pleural effusion not large enough to consider thoracentesis again at this point. Yesterday I have increased her Lasix to 60 mg twice a day, and his chest x-ray is definitely showing improvement. Patient is negative fluid balance about 5 L in the last 2 days. And she continues to diurese, renal functioning is maintaining with creatinine of 1.15 today, steadily improving over the last 5 days in spite of aggressive diuresis. Her metoprolol dose was increased as well as her amiodarone dose increased by cardiology on the case Reevaluated today on 10/19/23, patient remains in, she is now on 4 L nasal cannula, she seems to be tachycardic, and her atrial fibrillation is still not fully controlled, patient has been seen by cardiology and her metoprolol was increased to 150 twice a day and amiodarone was increased to 400 twice a day. Patient is on 4 L but at night she goes on 10/30/45%. Does not seem to be in any distress, she is basically asymptomatic. IV fluids at KVO. And the patient remains on diuretics. Renal function continues to improve creatinine is 1.13 basic metabolic profile is relatively normal bicarb is 35 BUN is 68 WBC 12.8 hemoglobin 13.6 chest x-ray from yesterday showed improved aeration of the lungs has the patient had no change in her diuretics dose Reevaluated today on 10/20/23 patient remains in the ICU, remains on 4 L nasal cannula, doing great, relatively asymptomatic, patient is in good spirits, her IV fluids at KVO, patient is being transferred today to [facility]. In the meantime I am planning to continue her diuretics, and continue antibiotics for UTI. Basic metabolic profile is normal and her BUN is 67 creatinine 1.01 today, no major issues overnight. Patient does have cool left lower extremity and left foot, she has also noted by Doppler. No evidence of acute ischemic changes. Her right foot seems to be warm and slightly swollen. Progress note dated 10/21/2023. 73-year-old female who I last saw on October 06. She was initially admitted to the intensive care unit for fluid overload/CHF. She was previously on BiPAP, and is been in and out of the intensive care unit. Currently, the patient's on 3 L of oxygen by nasal cannula. She is getting saline at 10 mL an hour. The patient appears to be doing much better, and is hoping to be discharged out of the intensive care unit. White count is 14.1, hemoglobin 14, hematocrit 43.6, and platelet count 270,000. Sodium 136, potassium 4.2, chlorides 96, CO2 34, BUN 65, and creatinine 0.91. Progress note dated 10/22/2023. 3-year-old female seen yesterday, October 21, and room 264, intensive care unit. She was initially admitted to the intensive care unit, for fluid overload,/CHF. Currently, the patient is on 2 L of oxygen. She's not receiving any IV fluids. She is currently not using BiPAP. White count is 14.3, hemoglobin 14.3, hematocrit 44.9, and platelet count 249,000. Sodium 137, potassium 4.2, chlorides 95, CO2 37, BUN 57, and creatinine 1.03. Albumin is 3. Total protein is 5.4. No recent chest x-ray to report. Progress note dated 10/23/2023. 73-year-old female seen in room 264. Currently, the patient's on oxygen at 2 L by nasal cannula. She's not receiving any IV fluids. She was initially admitted to the intensive care unit, for fluid overload/CHF. She's now been in the hospital for 27 days. No new labs today. Glucose is 149. A PICC line will be placed today. Progress note dated 10/24/2023. The patient is seen today in room 264. She's not receiving any IV fluids. She is on 2 L of oxygen. Generally speaking, she is doing much better. She still has some lower extremity edema. Labs, x-rays, and medications are all reviewed. White count 14.5, hemoglobin 14.6, hematocrit 46.7, and platelet count 249,000. Sodium 139, potassium 4.3, chloride 92, CO2 40, anion gap 7, BUN 53, and the creatinine is 0.91. AST is 37. ALT is 131. Albumin 2.9. Most recent glucose is 144. Chest x-ray shows no major change. There is a right hilar masslike airspace process. There is cardiomegaly. There is mild pulmonary edema. Progress note dated 10/25/2023. The patient is seen again in room 264. She's not receiving any IV fluids. She continues on 2 L of oxygen. Clinically, she's doing much better. Her lower extremity edema is still present, but improved. White count 20.2, hemoglobin 14.4, hematocrit 45.4, and a normal platelet count. Sodium 137, potassium 3.8, chlorides 93, CO2 34, BUN 52, and creatinine 0.93. Glucose 135. Progress note dated 10/26/2023. 73-year-old female seen today in room 264. Patient is not receiving any IV fluids. She's been weaned down to 1 L of oxygen. She's been stable over the last few days. She has no major complaints today. She denies any chest pain or chest discomfort. She also denies any shortness of breath, cough, wheezing, chest tightness, or phlegm production. No new laboratory data today other than a glucose of 109. Objective - Vital Signs Vital signs: Vital Signs Temp 97.5 F L 10/26/23 08:00 Pulse 104 H 10/26/23 08:42 Resp 23 10/26/23 08:00 BP 94/59 10/26/23 08:00 Pulse Ox 96 10/26/23 08:33 FiO2 4 10/19/23 08:00 Intake & Output 10/25/23 10/26/23 10/26/23 18:59 06:59 18:59 Intake Total 1450 400 Output Total 2700 950 Balance -1250 -950 400 Weight 131.6 kg 130.2 kg Intake: Oral 1450 400 Output: Urine 2700 950 Other: Voiding Method Indwelling Catheter Indwelling Catheter ABP, PAP, CO, CI - Last Documented Arterial Blood Pressure 116/63 - Exam Currently on nasal oxygen at 1 L/m. The patient is awake and alert. HEENT examination is grossly unremarkable. Neck supple. Full range of motion. No adenopathy thyromegaly or neck vein distention. Cardiovascular examination reveals an irregular rhythm and rate. S1-S2 normal. No S3 or S4. No discernible murmur noted. Heart rate 92. Heart sounds are distant. Lungs reveal by basilar crackles. Breath sounds are equal bilaterally. No rhonchi. No wheezes. Saturations are 96 %. Abdomen soft bowel sounds are heard. No masses or tenderness. Extremities are intact. No cyanosis or clubbing. Mild lower extremity edema. Skin is without rash or lesion. Neurologic examination is brief but nonfocal. - Labs CBC & Chem 7: 10/25/23 09:50 10/25/23 09:50 Labs: Abnormal Lab Results - Last 24 Hours (Table) 10/25/23 Range/Units 09:50 Chloride 93 L (98-107) mmol/L Carbon Dioxide 34 H (22-30) mmol/L BUN 52 H (7-17) mg/dL Glucose 135 H (74-99) mg/dL Assessment and Plan Assessment: Acute hypoxemic respiratory failure, secondary to worsening systolic congestive heart failure. History of chronic atrial fibrillation, with rapid ventricular response. Bilateral pleural effusions, secondary to CHF. Escherichia coli urinary tract infection, resolved. History of hypertension. History of hyperlipidemia. History of pulmonary embolism. History of hypothyroidism. History of osteoarthritis. Plan: Plan dated 09/30/2023. The patient is seen today in the intensive care unit, room 255. She is on BiPAP currently, and I've asked the nurses, to inform respiratory therapy, to wean the patient's FiO2 down, as she improves. The patient has received additional Lasix, 40 mg earlier, and another 40 mg IV push now. The patient was placed on 40 mg of Lasix, IV push every 8 hours. We will continue to follow and make recommendations along the way. Labs, x-rays, and medications are reviewed. Prognosis is guarded. Plan dated 10/01/2023. Patient is seen in the intensive care unit, room 255. Currently, she is on high flow nasal O2 at 13 L. In addition, she is on BiPAP, intermittently at 16/6, and 60%. Because of her atrial fibrillation and RVR, she is currently on Cardizem 50 mg an hour. On auscultation, she has bibasilar crackles, and, she is in atrial fibrillation. She has lower extremity edema as well. Labs, x- rays, medications are reviewed. We will continue to follow and make recommendations along the way. Her prognosis is certainly guarded. Plan dated 10/02/2023. The patient is seen in room 255. Currently, she is on room air, and saturations are 91%. Her nurse will probably place her back on oxygen at 2 L. The patient still having atrial fibrillation with rapid ventricular response, and for that reason, she is on Cardizem at 10 mg an hour, and amiodarone at 0.5 mg/m. Her examination still reveals evidence of bibasilar crackles, and lower extremity edema. Labs, x-rays, and medications are reviewed. The patient's overall prognosis remains guarded. She obviously cannot be the ICU at this time. Plan dated 10/03/2023. The patient is seen today in room 255. She's currently on 2 L. She continues on Cardizem for atrial fibrillation and RVR, 10 mg an hour. She's not getting any additional IV fluids. She didn't use BiPAP last night, for about an hour and a half. Her BiPAP settings are 16/6 and 45%. She may need to use it more than she's currently using it. Labs, x-rays, medications are reviewed. Overall prognosis remains guarded. We will continue to follow the patient, and make recommendations along the way. Plan dated 10/04/2023. The patient is seen today in room 255. She remains on 2 L of oxygen. She's on a Cardizem drip at 10 mg an hour. He'll be turned down to 5 mg an hour. She d oes continue on IV Lasix. Her lower extremity edema is much improved. Labs, x- rays, and medications are reviewed. We will continue to follow the patient, and make recommendations along the way. No additional comments at this time. Her overall prognosis remains guarded. She did use of BiPAP last night, which is really seem to help. We encourage her to use it nightly, as it will reduce venous return, reduce preload, and help her with her congestive heart failure. Plan dated 10/05/2023. The patient is seen today in room 261. She was in the intensive care unit, for the last few days, and no doubt yesterday. Unfortunately, because of worsening respiratory status and CHF, she was transferred back to the intensive care unit, sometime early this morning. Currently, the patient's on BiPAP, with settings of 16/6 and 60%. Her gases have been reviewed. She continues on Cardizem 5 mg an hour. Labs, x-rays, and medications are reviewed. We will continue to follow and make recommendations along the way. Prognosis is certainly very guarded. Plan dated 10/06/2023. Patient is again seen today in the intensive care unit, room 261. She has ongoing respiratory failure secondary to CHF. In addition, she has atrial fibrillation, with a rapid ventricular response. She continues on BiPAP, at 16/6, and 50%. She also continues on Cardizem, 5 mg an hour. Lasix is increased to 40 mg IV push, every 8 hours. When she was taken off BiPAP yesterday, she did poorly. Labs, x-rays, and medications are reviewed. We will continue to follow the patient, and make recommendations along the way. Her overall prognosis remains very guarded. Plan dated 10/21/2023. The patient appears to be doing relatively well. The patient is stable to be transferred out of the intensive care unit. Currently, she is on 3 L of oxygen. She's getting saline at 10 mL an hour. Labs, x-rays, medications are reviewed. The patient is in good spirits, and is alert and awake. We will continue to follow and make recommendations along the way. Prognosis is certainly guarded, given the fact that she's been in the hospital now for 25 days. Plan dated 10/22/2023. The patient appears to be doing better. She seen today in room 264. She's been weaned down to 2 L. Saturations are in the mid 90s. Labs, x-rays, and medications are reviewed. The patient's overall prognosis remains guarded, but the patient can be transferred out of the intensive care unit. She is alert and awake. Plan dated 10/23/2023. The patient is resting comfortably today in room 264. She will have a PICC line placed sometime today. She continues on oxygen at 2 L. Labs, x-rays, medications are reviewed. The patient is stable be transferred out of the intensive care unit. We will continue to follow the patient, and make recommendations along the way. Her overall prognosis though, remains guarded. Plan dated 10/24/2023. The patient is seen today in room 264. She is resting comfortably. She continues on oxygen at 2 L. She's not receiving any IV fluids. Labs, x-rays, and medications are reviewed. The patient could be transferred out to the cardiac floor. She continues on ciprofloxacin. Corticosteroids will be discontinued. No additional recommendations are made. Plan dated 10/25/2023. The patient continues to do very well. The patient could be transferred out of the intensive care unit. Labs, x-rays, and medications are reviewed. We will continue to follow the patient, and make recommendations along the way. The patient's overall prognosis remains guarded. She continues on antibiotics. Corticosteroids were discontinued yesterday. Plan dated 10/26/2023. The patient continues to show very steady improvement day by day. The patient has been weaned on 1 L of oxygen. Labs, x-rays, and medications are reviewed. The patient is stable for transfer out of the intensive care unit. We will continue to follow the patient, and make recommendations on a daily basis. Her overall prognosis remains guarded. Time with Patient: Less than 30
[2023-10-26 11:19] LABS: Glucose,Whole Blood 123 mg/dL (70-110)
[2023-10-26] MEDS ORDERED: IPRATROPIUM-ALBUTEROL 3 ML NEB INHALATION PRN (11:57)
[2023-10-26 16:35] LABS: Glucose,Whole Blood 130 mg/dL (70-110)
--- NOTE | 2023-10-26 18:10 | P.PN ---
Subjective Progress Note Date: 10/26/23 The patient is a 73-year-old female patient with history of heart failure as well as atrial fibrillation as well as hypertension and dyslipidemia and renal failure was admitted to the hospital with acute hypoxic respiratory failure. Initially she was started on diuretics for heart failure subsequently she developed renal failure and the diuretics was a systolic. Currently she is intubated and she is on mechanical ventilation for possible underlying pneumonia/sepsis and currently she is on norepinephrine 10/14/2023 The patient was seen and evaluated this morning. The patient remains intubated on mechanical ventilation. She remains hypotensive requiring norepinephrine. She is on amiodarone orally. She remains in nature fibrillation with overall heart rate around 120 bpm. I'm going to add a small dose of beta jorge alberto with metoprolol tartrate 12.5 mg by mouth twice a day to the current medical regimen. Continue oral anticoagulation. She is in process of having an echocardiogram later on today. The examination is remarkable for irregular rhythm with a systolic murmur at the right and left upper sternal border and bilateral upper and lower extremities edema October 152022 The patient was seen and evaluated this morning. She remains in atrial fibrillation with overall uncontrolled heart rate in spite of increasing the dose of metoprolol. She is also on amiodarone. I'm going to add digoxin to the current medical regimen. She does have edema in the lower extremities and she was started on Lasix IV. Her kidney function is slightly abnormal. The examination is remarkable for irregular heart rhythm with diminished breathing sounds bilaterally and bilateral lower extremities edema 10/16/2023 The patient was seen and evaluated this morning. She is awake. He potentially can be extubated later on today. Hemodynamically stable. The heart rate has somewhat improved continues to be in the 100 bpm. I'm going to increase the dose of beta jorge alberto with metoprolol to 50 mg by mouth twice a day. Continue digoxin and continue amiodarone and continue oral anticoagulation. She is having edema in the upper and lower extremity is and she is on Lasix IV which we will continue. October 172022 The patient was seen and evaluated this morning. She was extubated yesterday. Hemodynamically she is stable beside heart rate around 120 beats per minutes. Pressure is a stable. For that reason I'm going to increase the dose of metoprolol to 50 mg by mouth 3 times a day. She still have upper and lower extremities edema and she is on Lasix IV and has been making urine. She is on oral anticoagulation. She still on oxygen at 3 L at this point. The chest x- ray continues to show finding of bilateral infiltrate/heart failure 10/18/2023 The patient was seen and evaluated this morning. She was extubated 48 hours ago. Hemodynamically she is stable beside still tachycardia with the atrial fibrillation. She is on anticoagulation. I'm going to increase the dose of metoprolol and increase dose of amiodarone as well. She still hypoxic requiring oxygen. She started having upper and lower extremity is edema and she is on Lasix IV. The creatinine remains stable 10/19/2023 The patient was seen and evaluated this morning. She still tachycardic in atrial fibrillation. I'm going to increase the dose of amiodarone and metoprolol [place] she is on oral anticoagulation which is still congested and currently she is on Lasix IV. The creatinine remains stable. Examination is remarkable for severe eye lateral lower extremity is edema 10/20/2023 The patient was seen and evaluated this morning. She is doing overall better. The atrial fibrillation has been under control on the current dose of amiodarone are on and metoprolol and digoxin. As a matter of fact she started trending down and without being seen in one to decrease the dose of amiodarone and potentially decrease the dose of metoprolol if she starts going further down in the heart rate. She still hypervolemic. She continues to be on Lasix IV. The creatinine remains stable. The examination is remarkable for severe bilateral lower extremity is edema and diminished breathing sounds bilaterally and irregular rhythm 10/22/23 Patient's atrial fibrillation is rate controlled on amiodarone metoprolol and digoxin. Patient is still hypervolemic and is needing Lasix. She is appropriate urine output. 10/23/23 Patient continues to be in atrial fibrillation which is rate controlled on amiodarone, metoprolol and digoxin. Patient is still hypervolemic Cardizem IV Lasix. She has appropriate urine output. 10/24/23 Patient is seen and examined at bedside the same. She is doing well from cardiac vessel standpoint. She continues to be in rate controlled atrial fibrillation. She is having adequate urine output with IV Lasix 60 mg BID. Labs. CBC 14, bilirubin 14, BUN 53, creatinine 0.9 BP 114/52, heart rate 95 10/25/23 Patient is seen and examined at bedside the same. Patient received an additional dose of metolazone 2.5 mg with morning Lasix today and she had good urine output after that. Her lower extremities are less swollen as compared to yesterday. Chest x-ray continues to be congested. She is on Imuran antibody therapy. Blood pressure stable, rate controlled atrial fibrillation 10/26/23 Patient has good urine output. She has tolerated the addition of metolazone with her IV Lasix. Her kidney function has stayed stable. Blood pressure 102/73 mmHg. Heart rate 100 210 beats a minute atrial fibrillation Assessment Heart failure with preserved ejection fraction Pneumonia/sepsis Acute hypoxic respiratory failure secondary to the above Acute on chronic renal failure Atrial fibrillation with uncontrolled heart rate Multiple comorbid conditions Plan Continue the current dose of Lasix IV. Give metolazone 2.5 mg with morning Lasix. Patient's kidney function has stayed stable. She still appears volume overloaded with swelling in bilateral lower extremities. She does have crackles in bilateral lung acuna which is better since yesterday. Continue monitoring her kidney function and electrolytes Continue metoprolol 150mg BID, amiodarone 200mg and digoxin 0.125mg Prognosis guarded. Objective - Vital Signs Vital signs: Vital Signs Temp 97.8 F 10/26/23 16:00 Pulse 101 H 10/26/23 16:00 Resp 27 H 10/26/23 16:00 BP 102/77 10/26/23 16:00 Pulse Ox 91 L 10/26/23 16:00 FiO2 4 10/19/23 08:00 Intake & Output 10/25/23 10/26/23 10/26/23 18:59 06:59 18:59 Intake Total 1450 750 Output Total 2700 950 2500 Balance -1250 -950 -1750 Weight 131.6 kg 130.2 kg Intake: Oral 1450 750 Output: Urine 2700 950 2500 Other: Voiding Method Indwelling Catheter Indwelling Catheter Indwelling Catheter ABP, PAP, CO, CI - Last Documented Arterial Blood Pressure 116/63 - Labs CBC & Chem 7: 10/25/23 09:50 10/25/23 09:50 Labs: Abnormal Lab Results - Last 24 Hours (Table) 10/26/23 10/26/23 Range/Units 11:17 16:34 POC Glucose (mg/dL) 123 H 130 H (70-110) mg/dL
[2023-10-26 20:18] LABS: Glucose,Whole Blood 140 mg/dL (70-110)
--- NOTE | 2023-10-26 21:02 | PN ---
PROGRESS NOTE DATE OF SERVICE: 10/26/2023 I am covering for Dr. Greene. SUBJECTIVE: This is a 73-year-old woman with a past medical history of multiple medical problems, admitted with CHF acute exacerbation. The patient also had hypotension, atrial fibrillation. The patient has multiple medical issues. The patient admitted to ICU on multiple occasions. Currently, the patient is able to sit up in a chair, still short of breath. Sensorium has improved. The patient also had bilateral pleural effusion also secondary to CHF. PAST MEDICAL HISTORY: Reviewed. REVIEW OF SYSTEMS: A 14-point review is negative except as mentioned earlier. CURRENT MEDICATIONS: Reviewed include Eliquis. Dose and rest of medications reviewed. Lasix 60 IV b.i.d. OBJECTIVE: VITAL SIGNS: Pulse is 108, blood pressure 116/69, respirations 12. HEENT: Conjunctivae normal. NECK: No JVD. CARDIOVASCULAR: S1, S2 muffled. RESPIRATIONS: Breath sounds diminished at the bases. A few scattered rhonchi. ABDOMEN: Soft, obese. LEGS: No edema. NERVOUS SYSTEM: Nonfocal. LABORATORY DATA: WBC 20.2. ASSESSMENT: 1. Congestive heart failure acute exacerbation. 2. Acute hypoxic respiratory failure. 3. Atrial fibrillation with rapid ventricular rate. 4. Bilateral pleural effusion. 5. Increased WBC. 6. Escherichia coli urinary tract infection. 7. Multiple complex medical issues. RECOMMENDATIONS: Recommend to continue current management. Continue symptomatic treatment. Recommend repeat labs and repeat x-ray. The patient is being closely monitored in ICU at this time. Guarded prognosis. Further recommendations to follow. MMODL / IJN: [id number] /
[2023-10-26] MEDS: ATORVASTATIN 80 MG TAB PO SCH (21:53)
[2023-10-26] MEDS: MELATONIN 5 MG TABLET PO SCH (21:54)
[2023-10-27 04:49] LABS: African American GFR (CKD) 78 (>60 ml/min/1.73 sqM); Anion Gap 8 mmol/L; Blood Urea Nitrogen 53 mg/dL (7-17); Carbon Dioxide 36 mmol/L (22-30); Chloride 91 mmol/L (98-107); Glucose 138 mg/dL (74-99); Non-African American GFR(CKD) 68 (>60 ml/min/1.73 sqM); Potassium 3.5 mmol/L (3.5-5.1); Sodium 135 mmol/L (137-145)
[2023-10-27 05:08] LABS: Basophils % (A) 0 %; Eosinophils # (A) 0.2 k/uL (0-0.7); Eosinophils % (A) 1 %; HCT 48.9 % (34.0-46.0); HGB 16.3 gm/dL (11.4-16.0); Lymphocytes # (A) 1.7 k/uL (1.0-4.8); Lymphocytes % (A) 10 %; MCHC 33.3 g/dL (31.0-37.0); MCV 96.2 fL (80.0-100.0); Mean Platelet Volume 7.9; Monocytes # (A) 0.8 k/uL (0-1.0); Monocytes % (A) 5 %; Neutrophils # (A) 14.5 k/uL (1.3-7.7); Neutrophils % (A) 84 %; Platelet Count 176 k/uL (150-450); RBC 5.09 m/uL (3.80-5.40); RDW 13.9 % (11.5-15.5); WBC 17.4 k/uL (3.8-10.6)
[2023-10-27 06:26] LABS: Glucose,Whole Blood 125 mg/dL (70-110)
[2023-10-27] MEDS: LEVOTHYROXINE 88 MCG TAB PO SCH (06:30)
[2023-10-27] MEDS: INSULIN ASPART (NovoLOG) 100 UNIT/ML VIAL SQ SCH ×4 (06:56→20:51)
[2023-10-27] MEDS ORDERED: POTASSIUM CHLORIDE ER 20 MEQ TAB.ER PO SCH (07:00)
[2023-10-27] MEDS: POTASSIUM BICARBONATE/CIT AC 20 MEQ TABLET.EFF NG-TUBE SCH ×2 (07:03→09:26)
[2023-10-27] MEDS: DOCUSATE 100 MG CAP PO SCH ×2 (09:26→20:50)
[2023-10-27] MEDS: DIGOXIN 125 MCG TAB PO SCH (09:26)
[2023-10-27] MEDS: METOPROLOL TARTRATE 50 MG TAB PO SCH ×2 (09:26→20:50)
[2023-10-27] MEDS: AMIODARONE 200 MG TAB PO SCH ×2 (09:26→20:50)
[2023-10-27] MEDS: guaiFENesin 600 MG TABLET.ER PO SCH ×2 (09:26→20:50)
[2023-10-27] MEDS: metOLazone 2.5 MG TAB PO SCH (09:26)
[2023-10-27] MEDS: APIXABAN 5 MG TAB PO SCH ×2 (09:26→20:50)
[2023-10-27] MEDS: FUROSEMIDE 10 MG/ML 10 ML VIAL IV SCH ×2 (09:26→20:50)
[2023-10-27] MEDS: polyethylene glycoL 3350 17 GM POWD.PACK PO SCH (09:27)
[2023-10-27] MEDS: PANTOPRAZOLE 40 MG/10 ML VIAL IVP SCH (09:27)
--- NOTE | 2023-10-27 10:21 | XR ---
EXAMINATION TYPE: XR chest 1V portable DATE OF EXAM: 10/27/2023 COMPARISON: 10/24/2023 INDICATION: CHF TECHNIQUE: Single frontal view of the chest is obtained. FINDINGS: The heart size is enlarged. The pulmonary vasculature is normal. There is elevation of the right diaphragm. No suspicious infiltrates identified. IMPRESSION: 1. Cardiomegaly
--- NOTE | 2023-10-27 10:54 | P.PN ---
Subjective Progress Note Date: 10/27/23 Principal diagnosis: Shortness of breath. Pulmonary consult dated 09/30/2023. 73-year-old female who presented to the emergency department on September 26, complaining of arrhythmias, and palpitations. The patient does have a history of hypertension, atrial fibrillation, hyperlipidemia, pulmonary embolism, and hypothyroidism. The patient apparently was having some lower extremity edema, shortness of breath, and orthopnea. She also had mild exertional dyspnea. The patient denied any chest pain or chest discomfort. She was seen by the ER physician, and admitted with a diagnosis of atrial fibrillation, CHF, and urinary tract infection. Today, a rapid response was called on this patient, and, R ICU charge nurse, who evaluated the patient, and thought the patient should come down to the intensive care unit, for further monitoring and management. She was given some IV Lasix, and placed on BiPAP, with settings of 16/6, and 100%. She was seen in the intensive care unit, room 255. She was sitting up in bed, with mild respiratory distress, on the BiPAP device. White count was 13.7, hemoglobin 14.5, hematocrit 44.4, and a normal platelet count. Sodium 135, potassium 3.9, chlorides 96, CO2 27, anion gap 12, BUN 37, and creatinine 1.26. N-terminal proBNP, on September 29, was 7020. The patient had chest x-rays on the and on the . Today's chest x-ray shows worsening pulmonary edema. Progress note dated 10/01/2023. 73-year-old female seen again in intensive care unit, room 255. The patient was admitted with a diagnosis of acute hypoxemic respiratory failure, secondary to CHF, as well as atrial fibrillation with RVR. The patient is currently on high flow nasal O2, at 13 L. In addition, the patient uses BiPAP intermittently at 16/6, and 60%. For her atrial fibrillation and RVR, the patient's on Cardizem 15 mg an hour. Clinically, she's starting to feel a bit better. White count 9.4, hemoglobin 14, hematocrit 43.1, and platelet count 223,000. Sodium 136, potassium 4.1, chlorides 96, CO2 29, BUN 37, and creatinine 1.30. Calcium is 9.2. Chest x-ray shows improved vascular congestion. Progress note dated 10/02/2023. 73-year-old female seen in the intensive care unit, room 255. She was admitted initially with a diagnosis of acute hypoxemic respiratory failure secondary to CHF, as well as atrial fibrillation with rapid ventricular response. The patient is currently on room air, with saturations of 91%. Unfortunately, she continues on Cardizem at 10 mg an hour, and amiodarone at 0.5 mg/m. White count 9, hemoglobin 12.8, hematocrit 39.4, within normal platelet count. Sodium 136, potassium 4.3, chloride 96, CO2 34, BUN 41, creatinine 1.12. Glucose is 112. Urine culture is showing evidence of Escherichia coli. Chest x-ray shows improvement in the patient's pulmonary vascular status. Progress note dated 10/03/2023. 73-year-old female seen today in room 255, intensive care unit. She was admitted with a diagnosis of acute hypoxemic respiratory failure, secondary to CHF, as well as atrial fibrillation, with rapid ventricular response. Currently, the patient is on 2 L of oxygen. She's on a Cardizem drip at 10 mg an hour. She's not receiving any IV fluids additionally. The patient that she is BiPAP, intermittently, with settings of 16/6, and 45%. She use BiPAP last night for about an hour and a half. She needs to be using it more frequently. White count 9.4, hemoglobin 12.9, hematocrit 39.2, and platelet count 187,000. Sodium 136, potassium 4.1, chlorides 97, CO2 32, BUN 36, creatinine 1.06. Gluc ose 116. Calcium is 9. Chest x-ray shows improved pulmonary vascular status. Progress note dated 10/04/2023. 73-year-old female seen again in the intensive care unit, room 255. Currently, she is on 2 L of oxygen. She's on a Cardizem drip at 10 mg an hour, to be dropped on the 5 mg an hour. She did use of BiPAP last night, for many hours, and it seemed to help. Her settings include 16/6, and 45%. She currently remains in atrial fibrillation with a rate of 128 bpm. Labs today include a s odium 138, potassium 4.1, chlorides 98, CO2 31, BUN 40, and creatinine 1.08. Glucose 116. Calcium is 9.1. No chest x-ray today. Progress note dated 10/05/2023. 73-year-old female who was sent out of the intensive care unit yesterday, and came back into the intensive care unit, sometime early this morning. She apparently developed worsening shortness of breath, was severely anxious, receive some benzodiazepine, and, required BiPAP therapy. I was called by the nurse who went to the rapid response, and we decided to move the patient back to the intensive care unit. Currently, she is seen in room 261. She is on BiPAP, with settings of 16/6 and 60%. Gases done on 100% show pO2 of 66, pCO2 61, pH is 7.28. The patient is on Cardizem 5 mg an hour. She's not receiving any additional IV fluids. We did order a chest x-ray today, and N-terminal proBNP. Labs today include a white count 13.8, hemoglobin 13, hematocrit 40.7 and a platelet count 229,000. Sodium 136, potassium 4.6, chlorides 99, CO2 28, BUN 46, creatinine 1.31. Calcium is 9. Today's chest x-rays consistent with cardi omegaly, small bilateral pleural effusions, and pulmonary vascular congestion. Progress note dated 10/06/2023. 73-year-old female readmitted to the intensive care unit, for fluid overload/CHF. The patient is currently seen today in room 261. She is currently on BiPAP, with settings of 16/6, and 50%. She's getting Cardizem 5 mg an hour. Her chest x-ray shows fluid overload, so I increased her Lasix up milligrams IV push every 8 hours. When she was taken off BiPAP yesterday for a brief period of time, she became very anxious, and very short of breath, and, desaturated, and was placed back on BiPAP. White count 9.4, hemoglobin 12.9, hematocrit 40.1, within normal platelet count. Sodium 135, potassium 4.5, chlorides 99, CO2 29, BUN 49, and creatinine 1.11. Her N-terminal proBNP from yesterday was nearly 8000. Chest x-rays consistent with CHF, with effusion. Reevaluated today on 10/17, patient remains in the ICU, remains on BiPAP, she is now on 45%, and the plan is to transition from BiPAP to a high flow nasal cannula. Patient x-ray is showing slight worsening and worsening pulmonary edema and some recommending to increase her Lasix from 40 mg twice a day to 60 mg twice a day. Her IV fluids remains at KVO. Her overall clinical status remains marginal at best. Again there is worsening chest x-ray. Labs are basically unremarkable with improvement in her creatinine down to 1.13 in spite of aggressive diuresis. Looking at the fluid status, patient is -2 L in the last 24 hours Reevaluated today on 10/18/23, patient remains in the ICU, she is now on 4 L nasal cannula and O2 saturations running between 93 up to 97%. Patient seems to be more alert today, not confused, feeling better clinically, and she denies any shortness of breath. Chest x-ray showed significant improvement in her bilateral interstitial edema nonetheless she continues to have some left pleural effusion not large enough to consider thoracentesis again at this point. Yesterday I have increased her Lasix to 60 mg twice a day, and his chest x-ray is definitely showing improvement. Patient is negative fluid balance about 5 L in the last 2 days. And she continues to diurese, renal functioning is maintaining with creatinine of 1.15 today, steadily improving over the last 5 days in spite of aggressive diuresis. Her metoprolol dose was increased as well as her amiodarone dose increased by cardiology on the case Reevaluated today on 10/19/23, patient remains in, she is now on 4 L nasal cannula, she seems to be tachycardic, and her atrial fibrillation is still not fully controlled, patient has been seen by cardiology and her metoprolol was increased to 150 twice a day and amiodarone was increased to 400 twice a day. Patient is on 4 L but at night she goes on 10/30/45%. Does not seem to be in any distress, she is basically asymptomatic. IV fluids at KVO. And the patient remains on diuretics. Renal function continues to improve creatinine is 1.13 basic metabolic profile is relatively normal bicarb is 35 BUN is 68 WBC 12.8 hemoglobin 13.6 chest x-ray from yesterday showed improved aeration of the lungs has the patient had no change in her diuretics dose Reevaluated today on 10/20/23 patient remains in the ICU, remains on 4 L nasal cannula, doing great, relatively asymptomatic, patient is in good spirits, her IV fluids at KVO, patient is being transferred today to [facility]. In the meantime I am planning to continue her diuretics, and continue antibiotics for UTI. Basic metabolic profile is normal and her BUN is 67 creatinine 1.01 today, no major issues overnight. Patient does have cool left lower extremity and left foot, she has also noted by Doppler. No evidence of acute ischemic changes. Her right foot seems to be warm and slightly swollen. Progress note dated 10/21/2023. 73-year-old female who I last saw on October 06. She was initially admitted to the intensive care unit for fluid overload/CHF. She was previously on BiPAP, and is been in and out of the intensive care unit. Currently, the patient's on 3 L of oxygen by nasal cannula. She is getting saline at 10 mL an hour. The patient appears to be doing much better, and is hoping to be discharged out of the intensive care unit. White count is 14.1, hemoglobin 14, hematocrit 43.6, and platelet count 270,000. Sodium 136, potassium 4.2, chlorides 96, CO2 34, BUN 65, and creatinine 0.91. Progress note dated 10/22/2023. 3-year-old female seen yesterday, October 21, and room 264, intensive care unit. She was initially admitted to the intensive care unit, for fluid overload,/CHF. Currently, the patient is on 2 L of oxygen. She's not receiving any IV fluids. She is currently not using BiPAP. White count is 14.3, hemoglobin 14.3, hematocrit 44.9, and platelet count 249,000. Sodium 137, potassium 4.2, chlorides 95, CO2 37, BUN 57, and creatinine 1.03. Albumin is 3. Total protein is 5.4. No recent chest x-ray to report. Progress note dated 10/23/2023. 73-year-old female seen in room 264. Currently, the patient's on oxygen at 2 L by nasal cannula. She's not receiving any IV fluids. She was initially admitted to the intensive care unit, for fluid overload/CHF. She's now been in the hospital for 27 days. No new labs today. Glucose is 149. A PICC line will be placed today. Progress note dated 10/24/2023. The patient is seen today in room 264. She's not receiving any IV fluids. She is on 2 L of oxygen. Generally speaking, she is doing much better. She still has some lower extremity edema. Labs, x-rays, and medications are all reviewed. White count 14.5, hemoglobin 14.6, hematocrit 46.7, and platelet count 249,000. Sodium 139, potassium 4.3, chloride 92, CO2 40, anion gap 7, BUN 53, and the creatinine is 0.91. AST is 37. ALT is 131. Albumin 2.9. Most recent glucose is 144. Chest x-ray shows no major change. There is a right hilar masslike airspace process. There is cardiomegaly. There is mild pulmonary edema. Progress note dated 10/25/2023. The patient is seen again in room 264. She's not receiving any IV fluids. She continues on 2 L of oxygen. Clinically, she's doing much better. Her lower extremity edema is still present, but improved. White count 20.2, hemoglobin 14.4, hematocrit 45.4, and a normal platelet count. Sodium 137, potassium 3.8, chlorides 93, CO2 34, BUN 52, and creatinine 0.93. Glucose 135. Progress note dated 10/26/2023. 73-year-old female seen today in room 264. Patient is not receiving any IV fluids. She's been weaned down to 1 L of oxygen. She's been stable over the last few days. She has no major complaints today. She denies any chest pain or chest discomfort. She also denies any shortness of breath, cough, wheezing, chest tightness, or phlegm production. No new laboratory data today other than a glucose of 109. Progress note dated 10/27/2023. 73-year-old female seen in room 264. Currently, the patient is on room air. She's not receiving any IV fluids. The patient is now been in the hospital for 31 days. Laboratory data from today includes a white count of 17.4, hemoglobin 16.3, hematocrit 48.9, and platelet count 176,000. Sodium 135, potassium 3.5, chlorides 91, CO2 36, BUN 53, and creatinine 0.85. Glucose is 138. Calcium 9. Today's chest x-ray only shows cardiomegaly. Objective - Vital Signs Vital signs: Vital Signs Temp 97.8 F 10/27/23 04:00 Pulse 87 10/27/23 04:00 Resp 13 10/27/23 04:00 BP 96/62 10/27/23 04:00 Pulse Ox 94 L 10/27/23 04:00 FiO2 4 10/19/23 08:00 Intake & Output 10/26/23 10/27/23 10/27/23 18:59 06:59 18:59 Intake Total 750 Output Total 2500 1175 Balance -1750 -1175 Weight 129 kg Intake: Oral 750 Output: Urine 2500 1175 Other: Voiding Method Indwelling Catheter Indwelling Catheter # Bowel Movements 1 ABP, PAP, CO, CI - Last Documented Arterial Blood Pressure 116/63 - Exam Currently on room air. The patient is awake and alert. HEENT examination is grossly unremarkable. Neck supple. Full range of motion. No adenopathy thyromegaly or neck vein distention. Cardiovascular examination reveals an irregular rhythm and rate. S1-S2 normal. No S3 or S4. No discernible murmur noted. Heart rate 87 bpm. Heart sounds are distant. Lungs reveal by basilar crackles. Breath sounds are equal bilaterally. No rhonchi. No wheezes. Saturations are 94 %. Abdomen soft bowel sounds are heard. No masses or tenderness. Extremities are intact. No cyanosis or clubbing. Mild lower extremity edema. Skin is without rash or lesion. Neurologic examination is brief but nonfocal. - Labs CBC & Chem 7: 10/27/23 04:23 10/27/23 04:23 Labs: Abnormal Lab Results - Last 24 Hours (Table) 10/26/23 10/26/23 10/26/23 Range/Units 11:17 16:34 20:16 WBC (3.8-10.6) k/uL Hgb (11.4-16.0) gm/dL Hct (34.0-46.0) % Neutrophils # (1.3-7.7) k/uL Sodium (137-145) mmol/L Chloride (98-107) mmol/L Carbon Dioxide (22-30) mmol/L BUN (7-17) mg/dL Glucose (74-99) mg/dL POC Glucose (mg/dL) 123 H 130 H 140 H (70-110) mg/dL 10/27/23 10/27/23 10/27/23 Range/Units 04:23 04:23 06:26 WBC 17.4 H (3.8-10.6) k/uL Hgb 16.3 H (11.4-16.0) gm/dL Hct 48.9 H (34.0-46.0) % Neutrophils # 14.5 H (1.3-7.7) k/uL Sodium 135 L (137-145) mmol/L Chloride 91 L (98-107) mmol/L Carbon Dioxide 36 H (22-30) mmol/L BUN 53 H (7-17) mg/dL Glucose 138 H (74-99) mg/dL POC Glucose (mg/dL) 125 H (70-110) mg/dL Assessment and Plan Assessment: Acute hypoxemic respiratory failure, secondary to worsening systolic congestive heart failure. History of chronic atrial fibrillation, with rapid ventricular response. Bilateral pleural effusions, secondary to CHF. Escherichia coli urinary tract infection, resolved. History of hypertension. History of hyperlipidemia. History of pulmonary embolism. History of hypothyroidism. History of osteoarthritis. Plan: Plan dated 09/30/2023. The patient is seen today in the intensive care unit, room 255. She is on BiPAP currently, and I've asked the nurses, to inform respiratory therapy, to wean the patient's FiO2 down, as she improves. The patient has received additional Lasix, 40 mg earlier, and another 40 mg IV push now. The patient was placed on 40 mg of Lasix, IV push every 8 hours. We will continue to follow and make recommendations along the way. Labs, x-rays, and medications are reviewed. Prognosis is guarded. Plan dated 10/01/2023. Patient is seen in the intensive care unit, room 255. Currently, she is on high flow nasal O2 at 13 L. In addition, she is on BiPAP, intermittently at 16/6, and 60%. Because of her atrial fibrillation and RVR, she is currently on Cardizem 50 mg an hour. On auscultation, she has bibasilar crackles, and, she is in atrial fibrillation. She has lower extremity edema as well. Labs, x- rays, medications are reviewed. We will continue to follow and make recommendations along the way. Her prognosis is certainly guarded. Plan dated 10/02/2023. The patient is seen in room 255. Currently, she is on room air, and saturations are 91%. Her nurse will probably place her back on oxygen at 2 L. The patient still having atrial fibrillation with rapid ventricular response, and for that reason, she is on Cardizem at 10 mg an hour, and amiodarone at 0.5 mg/m. Her e xamination still reveals evidence of bibasilar crackles, and lower extremity edema. Labs, x-rays, and medications are reviewed. The patient's overall prognosis remains guarded. She obviously cannot be the ICU at this time. Plan dated 10/03/2023. The patient is seen today in room 255. She's currently on 2 L. She continues on Cardizem for atrial fibrillation and RVR, 10 mg an hour. She's not getting any additional IV fluids. She didn't use BiPAP last night, for about an hour and a half. Her BiPAP settings are 16/6 and 45%. She may need to use it more than she's currently using it. Labs, x-rays, medications are reviewed. Overall prognosis remains guarded. We will continue to follow the patient, and make recommendations along the way. Plan dated 10/04/2023. The patient is seen today in room 255. She remains on 2 L of oxygen. She's on a Cardizem drip at 10 mg an hour. He'll be turned down to 5 mg an hour. She does continue on IV Lasix. Her lower extremity edema is much improved. Labs, x-rays, and medications are reviewed. We will continue to follow the patient, and make recommendations along the way. No additional comments at this time. Her overall prognosis remains guarded. She did use of BiPAP last night, which is really seem to help. We encourage her to use it nightly, as it will reduce venous return, reduce preload, and help her with her congestive heart failure. Plan dated 10/05/2023. The patient is seen today in room 261. She was in the intensive care unit, for the last few days, and no doubt yesterday. Unfortunately, because of worsening respiratory status and CHF, she was transferred back to the intensive care unit, sometime early this morning. Currently, the patient's on BiPAP, with settings of 16/6 and 60%. Her gases have been reviewed. She continues on Cardizem 5 mg an hour. Labs, x-rays, and medications are reviewed. We will continue to follow and make recommendations along the way. Prognosis is certainly very guarded. Plan dated 10/06/2023. Patient is again seen today in the intensive care unit, room 261. She has ange oing respiratory failure secondary to CHF. In addition, she has atrial fibrillation, with a rapid ventricular response. She continues on BiPAP, at 16/6, and 50%. She also continues on Cardizem, 5 mg an hour. Lasix is increased to 40 mg IV push, every 8 hours. When she was taken off BiPAP yester day, she did poorly. Labs, x-rays, and medications are reviewed. We will continue to follow the patient, and make recommendations along the way. Her overall prognosis remains very guarded. Plan dated 10/21/2023. The patient appears to be doing relatively well. The patient is stable to be transferred out of the intensive care unit. Currently, she is on 3 L of oxygen. She's getting saline at 10 mL an hour. Labs, x-rays, medications are reviewed. The patient is in good spirits, and is alert and awake. We will continue to follow and make recommendations along the way. Prognosis is certainly guarded, given the fact that she's been in the hospital now for 25 days. Plan dated 10/22/2023. The patient appears to be doing better. She seen today in room 264. She's been weaned down to 2 L. Saturations are in the mid 90s. Labs, x-rays, and medications are reviewed. The patient's overall prognosis remains guarded, but the patient can be transferred out of the intensive care unit. She is alert and awake. Plan dated 10/23/2023. The patient is resting comfortably today in room 264. She will have a PICC line placed sometime today. She continues on oxygen at 2 L. Labs, x-rays, medications are reviewed. The patient is stable be transferred out of the intensive care unit. We will continue to follow the patient, and make recommendations along the way. Her overall prognosis though, remains guarded. Plan dated 10/24/2023. The patient is seen today in room 264. She is resting comfortably. She continues on oxygen at 2 L. She's not receiving any IV fluids. Labs, x-rays, and medications are reviewed. The patient could be transferred out to the cardiac floor. She continues on ciprofloxacin. Corticosteroids will be discontinued. No additional recommendations are made. Plan dated 10/25/2023. The patient continues to do very well. The patient could be transferred out of the intensive care unit. Labs, x-rays, and medications are reviewed. We will continue to follow the patient, and make recommendations along the way. The patient's overall prognosis remains guarded. She continues on antibiotics. Corticosteroids were discontinued yesterday. Plan dated 10/26/2023. The patient continues to show very steady improvement day by day. The patient has been weaned on 1 L of oxygen. Labs, x-rays, and medications are reviewed. The patient is stable for transfer out of the intensive care unit. We will continue to follow the patient, and make recommendations on a daily basis. Her overall prognosis remains guarded. Plan dated 10/27/2023. The patient appears to be doing relatively well. She is on room air. She's not receiving any IV fluids. The patient is now been in the hospital for 31 days. She's been weaned off of oxygen. Labs, x-rays, and medications are reviewed. Her chest x-ray shows only cardiomegaly. Additional recommendations and suggestions are forthcoming. The patient has been able to be transferred out of the intensive care unit, for a number of days, but there was no bed available. Time with Patient: Less than 30
[2023-10-27 11:37] LABS: Glucose,Whole Blood 117 mg/dL (70-110)
[2023-10-27 16:40] LABS: Glucose,Whole Blood 131 mg/dL (70-110)
--- NOTE | 2023-10-27 18:38 | PN ---
PROGRESS NOTE DATE OF SERVICE: 10/27/2023 I am covering for Dr. Greene. SUBJECTIVE: This is a 73-year-old woman, who was admitted with CHF acute exacerbation and acute hypoxic respiratory failure. She is being closely monitored. The patient is on diuretics. Multiple consultants are following the patient closely. The most recent chest x-ray reviewed personally by me showed bilateral elevation of the hemidiaphragms. PAST MEDICAL HISTORY: Reviewed. REVIEW OF SYSTEMS: Fourteen-point review is negative except as mentioned earlier. CURRENT MEDICATIONS: Reviewed include Eliquis. Doses and rest of the medications are noted. PHYSICAL EXAMINATION: VITAL SIGNS: Pulse is 92, blood pressure 96/69, respirations 35. HEENT: Conjunctivae are normal. NECK: No jugular venous distention. CARDIOVASCULAR: S1 and S2 muffled. RESPIRATORY: Breath sounds diminished at the bases. Few scattered rhonchi and crackles. ABDOMEN: Soft. Obese. Nontender. NERVOUS SYSTEM: Nonfocal. LABORATORY DATA: WBC 17.4. Rest of the labs are noted. ASSESSMENT: 1. Congestive heart failure acute exacerbation. 2. Acute hypoxic respiratory failure. 3. Atrial fibrillation with rapid ventricular rate. 4. Bilateral pleural effusion. 5. Increased WBC. 6. Escherichia coli urinary tract infection. 7. Multiple complex medical issues. RECOMMENDATIONS: Recommend to continue current medical management. Continue symptomatic treatment. Repeat labs. Continue with the diuretics, the patient is on 60 IV b.i.d. Closely follow with Pulmonary. Dr. Greene will follow tomorrow. Repeat labs have been ordered. MMODL / IJN: [id number] /
--- NOTE | 2023-10-27 20:11 | P.PN ---
Subjective Progress Note Date: 10/27/23 The patient is a 73-year-old female patient with history of heart failure as well as atrial fibrillation as well as hypertension and dyslipidemia and renal failure was admitted to the hospital with acute hypoxic respiratory failure. Initially she was started on diuretics for heart failure subsequently she developed renal failure and the diuretics was a systolic. Currently she is intubated and she is on mechanical ventilation for possible underlying pneumonia/sepsis and currently she is on norepinephrine 10/14/2023 The patient was seen and evaluated this morning. The patient remains intubated on mechanical ventilation. She remains hypotensive requiring norepinephrine. She is on amiodarone orally. She remains in nature fibrillation with overall heart rate around 120 bpm. I'm going to add a small dose of beta jorge alberto with metoprolol tartrate 12.5 mg by mouth twice a day to the current medical regimen. Continue oral anticoagulation. She is in process of having an echocardiogram later on today. The examination is remarkable for irregular rhythm with a systolic murmur at the right and left upper sternal border and bilateral upper and lower extremities edema October [id number] The patient was seen and evaluated this morning. She remains in atrial fibrillation with overall uncontrolled heart rate in spite of increasing the dose of metoprolol. She is also on amiodarone. I'm going to add digoxin to the current medical regimen. She does have edema in the lower extremities and she was started on Lasix IV. Her kidney function is slightly abnormal. The examination is remarkable for irregular heart rhythm with diminished breathing sounds bilaterally and bilateral lower extremities edema 10/16/2023 The patient was seen and evaluated this morning. She is awake. He potentially can be extubated later on today. Hemodynamically stable. The heart rate has somewhat improved continues to be in the 100 bpm. I'm going to increase the dose of beta jorge alberto with metoprolol to 50 mg by mouth twice a day. Continue digoxin and continue amiodarone and continue oral anticoagulation. She is having edema in the upper and lower extremity is and she is on Lasix IV which we will continue. October 172022 The patient was seen and evaluated this morning. She was extubated yesterday. Hemodynamically she is stable beside heart rate around 120 beats per minutes. Pressure is a stable. For that reason I'm going to increase the dose of metoprolol to 50 mg by mouth 3 times a day. She still have upper and lower extremities edema and she is on Lasix IV and has been making urine. She is on oral anticoagulation. She still on oxygen at 3 L at this point. The chest x- ray continues to show finding of bilateral infiltrate/heart failure 10/18/2023 The patient was seen and evaluated this morning. She was extubated 48 hours ago. Hemodynamically she is stable beside still tachycardia with the atrial fibrillation. She is on anticoagulation. I'm going to increase the dose of metoprolol and increase dose of amiodarone as well. She still hypoxic requiring oxygen. She started having upper and lower extremity is edema and she is on Lasix IV. The creatinine remains stable 10/19/2023 The patient was seen and evaluated this morning. She still tachycardic in atrial fibrillation. I'm going to increase the dose of amiodarone and metoprolol [place] she is on oral anticoagulation which is still congested and currently she is on Lasix IV. The creatinine remains stable. Examination is remarkable for severe eye lateral lower extremity is edema 10/20/2023 The patient was seen and evaluated this morning. She is doing overall better. The atrial fibrillation has been under control on the current dose of amiodarone are on and metoprolol and digoxin. As a matter of fact she started trending down and without being seen in one to decrease the dose of amiodarone and potentially decrease the dose of metoprolol if she starts going further down in the heart rate. She still hypervolemic. She continues to be on Lasix IV. The creatinine remains stable. The examination is remarkable for severe bilateral lower extremity is edema and diminished breathing sounds bilaterally and irregular rhythm 10/22/23 Patient's atrial fibrillation is rate controlled on amiodarone metoprolol and digoxin. Patient is still hypervolemic and is needing Lasix. She is appropriate urine output. 10/23/23 Patient continues to be in atrial fibrillation which is rate controlled on amiodarone, metoprolol and digoxin. Patient is still hypervolemic Cardizem IV Lasix. She has appropriate urine output. 10/24/23 Patient is seen and examined at bedside the same. She is doing well from cardiac vessel standpoint. She continues to be in rate controlled atrial fibrillation. She is having adequate urine output with IV Lasix 60 mg BID. Labs. CBC 14, bilirubin 14, BUN 53, creatinine 0.9 BP 114/52, heart rate 95 10/25/23 Patient is seen and examined at bedside the same. Patient received an additional dose of metolazone 2.5 mg with morning Lasix today and she had good urine output after that. Her lower extremities are less swollen as compared to yesterday. Chest x-ray continues to be congested. She is on Imuran antibody therapy. Blood pressure stable, rate controlled atrial fibrillation 10/26/23 Patient has good urine output. She has tolerated the addition of metolazone with her IV Lasix. Her kidney function has stayed stable. Blood pressure 102/73 mmHg. Heart rate 100 -110 beats a minute atrial fibrillation 10/27/23 WBC 17, hemoglobin 16, BUN 53, creatinine 0.85. Patient march 1200 mL of urine on metolazone and IV Lasix therapy. Continue this regimen. Blood pressure and heart rate are well controlled. Assessment Heart failure with preserved ejection fraction Pneumonia/sepsis Acute hypoxic respiratory failure secondary to the above Acute on chronic renal failure Atrial fibrillation with uncontrolled heart rate Multiple comorbid conditions Plan Continue the current dose of Lasix IV. Give metolazone 2.5 mg with morning Lasix. Patient's kidney function has stayed stable. She still appears volume overloaded with swelling in bilateral lower extremities. She does have crackles in bilateral lung acuna which is better since yesterday. Continue monitoring her kidney function and electrolytes Continue metoprolol 150mg BID, amiodarone 200mg and digoxin 0.125mg Prognosis guarded. PT and OT evaluation. Outpatient rehab or [facility] facility consultation Objective - Vital Signs Vital signs: Vital Signs Temp 97.8 F 10/27/23 08:00 Pulse 90 10/27/23 16:00 Resp 13 10/27/23 16:00 BP 97/74 10/27/23 16:00 Pulse Ox 92 L 10/27/23 16:00 FiO2 4 10/19/23 08:00 Intake & Output 10/27/23 10/27/23 10/28/23 06:59 18:59 06:59 Intake Total 400 Output Total 1175 1700 Balance -1175 -1300 Weight 129 kg Intake: Oral 400 Output: Urine 1175 1700 Other: Voiding Method Indwelling Catheter Indwelling Catheter # Bowel Movements 1 ABP, PAP, CO, CI - Last Documented Arterial Blood Pressure 116/63 - Labs CBC & Chem 7: 10/27/23 04:23 10/27/23 04:23 Labs: Abnormal Lab Results - Last 24 Hours (Table) 10/26/23 10/27/23 10/27/23 Range/Units 20:16 04:23 04:23 WBC 17.4 H (3.8-10.6) k/uL Hgb 16.3 H (11.4-16.0) gm/dL Hct 48.9 H (34.0-46.0) % Neutrophils # 14.5 H (1.3-7.7) k/uL Sodium 135 L (137-145) mmol/L Chloride 91 L (98-107) mmol/L Carbon Dioxide 36 H (22-30) mmol/L BUN 53 H (7-17) mg/dL Glucose 138 H (74-99) mg/dL POC Glucose (mg/dL) 140 H (70-110) mg/dL 10/27/23 10/27/23 10/27/23 Range/Units 06:26 11:36 16:39 WBC (3.8-10.6) k/uL Hgb (11.4-16.0) gm/dL Hct (34.0-46.0) % Neutrophils # (1.3-7.7) k/uL Sodium (137-145) mmol/L Chloride (98-107) mmol/L Carbon Dioxide (22-30) mmol/L BUN (7-17) mg/dL Glucose (74-99) mg/dL POC Glucose (mg/dL) 125 H 117 H 131 H (70-110) mg/dL
[2023-10-27 20:21] LABS: Glucose,Whole Blood 116 mg/dL (70-110)
[2023-10-27] MEDS: MELATONIN 5 MG TABLET PO SCH (20:50)
[2023-10-27] MEDS: ATORVASTATIN 80 MG TAB PO SCH (20:50)
[2023-10-28 04:20] LABS: Basophils % (A) 0 %; Eosinophils # (A) 0.2 k/uL (0-0.7); Eosinophils % (A) 1 %; HCT 50.5 % (34.0-46.0); HGB 16.6 gm/dL (11.4-16.0); Lymphocytes # (A) 1.8 k/uL (1.0-4.8); Lymphocytes % (A) 10 %; MCH 31.6 pg (25.0-35.0); MCHC 32.8 g/dL (31.0-37.0); MCV 96.4 fL (80.0-100.0); Mean Platelet Volume 8.2; Monocytes # (A) 0.6 k/uL (0-1.0); Monocytes % (A) 3 %; Neutrophils # (A) 14.4 k/uL (1.3-7.7); Neutrophils % (A) 85 %; Platelet Count 169 k/uL (150-450); RBC 5.24 m/uL (3.80-5.40)
[2023-10-28 04:44] LABS: ALT 133 U/L (4-34); AST 138 U/L (14-36); African American GFR (CKD) 75 (>60 ml/min/1.73 sqM); Albumin 3.3 g/dL (3.5-5.0); Alkaline Phosphatase 92 U/L (38-126); Blood Urea Nitrogen 52 mg/dL (7-17); Calcium 9.2 mg/dL (8.4-10.2); Chloride 87 mmol/L (98-107); Glucose 114 mg/dL (74-99); Non-African American GFR(CKD) 65 (>60 ml/min/1.73 sqM); Potassium 3.3 mmol/L (3.5-5.1); Sodium 135 mmol/L (137-145); Total Bilirubin 3.1 mg/dL (0.2-1.3); Total Protein 5.7 g/dL (6.3-8.2)
[2023-10-28 04:50] LABS: Anion Gap 7 mmol/L
[2023-10-28 04:53] LABS: Carbon Dioxide 41 mmol/L (22-30)
[2023-10-28] MEDS: LEVOTHYROXINE 88 MCG TAB PO SCH (06:34)
[2023-10-28] MEDS: POTASSIUM CHLORIDE ER 20 MEQ TAB.ER PO SCH ×2 (06:34→09:09)
[2023-10-28 06:40] LABS: Glucose,Whole Blood 118 mg/dL (70-110)
[2023-10-28] MEDS: INSULIN ASPART (NovoLOG) 100 UNIT/ML VIAL SQ SCH ×2 (06:52→12:27)
--- NOTE | 2023-10-28 08:05 | P.PN ---
Subjective Progress Note Date: 10/28/23 PROGRESS NOTE The patient is a 73-year-old female with history of atrial fibrillation, CHF with preserved systolic function who presented with worsening dyspnea. She was admitted on September 26. She was subsequently transferred to the ICU and required mechanical ventilation. She had a repeat echocardiogram was suboptimal and showed the mild LV systolic dysfunction of 45-50%, on presentation it was preserved. She continues to be in atrial fibrillation with controlled ventricular response, she is feeling better today. Hemodynamically she is stable. She denies any chest discomfort, dizziness or palpitations. There is no evidence of rapid ventricle response or significant hypotension. Medications: Amiodarone 200 mg twice a day, Lipitor 80 mg daily, digoxin 0.25 mg daily, Lasix 60 mg every 12 hours IV, levothyroxine, metolazone 2.5 mg twice a day, metoprolol tartrate 150 mg twice a day, Eliquis 5 mg twice a day PHYSICAL EXAMINATION: Blood pressure 106/70 heart rate 90 LUNGS: Clear to auscultation HEART: Irregular rate and rhythm, S1, S2. No S3. Systolic ejection murmur ABDOMEN: Soft, nontender, no organomegaly EXTREMETIES: Trace to 1+ bilateral edema LAB: BUN 52, creatinine 0.88, potassium 3.3, hemoglobin 16.6, WBC 17 IMPRESSION: 1. Respiratory failure with CHF and preserved systolic function 2. Atrial fibrillation 3. Hyperlipidemia 4. Hypertension 5. History of pulmonary embolism PLAN: 1. Add Farxiga 10 mg daily 2. Continue IV diuresis for 24 hours and if stable switch to oral 3. Follow renal functions 4. Increase physical activity Objective - Vital Signs Vital signs: Vital Signs Temp 97.9 F 10/28/23 00:00 Pulse 103 H 10/28/23 04:00 Resp 12 10/28/23 04:00 BP 106/71 10/28/23 04:00 Pulse Ox 94 L 10/28/23 04:00 FiO2 4 10/19/23 08:00 Intake & Output 10/27/23 10/28/23 10/28/23 18:59 06:59 18:59 Intake Total 400 Output Total 1700 400 Balance -1300 -400 Weight 128.7 kg Intake: Oral 400 Output: Urine 1700 400 Other: Voiding Method Indwelling Catheter Indwelling Catheter ABP, PAP, CO, CI - Last Documented Arterial Blood Pressure 116/63 - Labs CBC & Chem 7: 10/28/23 03:49 10/28/23 03:49 Labs: Abnormal Lab Results - Last 24 Hours (Table) 10/27/23 10/27/23 10/27/23 Range/Units 11:36 16:39 20:19 WBC (3.8-10.6) k/uL Hgb (11.4-16.0) gm/dL Hct (34.0-46.0) % Neutrophils # (1.3-7.7) k/uL Sodium (137-145) mmol/L Potassium (3.5-5.1) mmol/L Chloride (98-107) mmol/L Carbon Dioxide (22-30) mmol/L BUN (7-17) mg/dL Glucose (74-99) mg/dL POC Glucose (mg/dL) 117 H 131 H 116 H (70-110) mg/dL Total Bilirubin (0.2-1.3) mg/dL AST (14-36) U/L ALT (4-34) U/L Total Protein (6.3-8.2) g/dL Albumin (3.5-5.0) g/dL 10/28/23 10/28/23 10/28/23 Range/Units 03:49 03:49 06:39 WBC 17.0 H (3.8-10.6) k/uL Hgb 16.6 H (11.4-16.0) gm/dL Hct 50.5 H (34.0-46.0) % Neutrophils # 14.4 H (1.3-7.7) k/uL Sodium 135 L (137-145) mmol/L Potassium 3.3 L (3.5-5.1) mmol/L Chloride 87 L (98-107) mmol/L Carbon Dioxide 41 H* (22-30) mmol/L BUN 52 H (7-17) mg/dL Glucose 114 H (74-99) mg/dL POC Glucose (mg/dL) 118 H (70-110) mg/dL Total Bilirubin 3.1 H (0.2-1.3) mg/dL AST 138 H (14-36) U/L ALT 133 H (4-34) U/L Total Protein 5.7 L (6.3-8.2) g/dL Albumin 3.3 L (3.5-5.0) g/dL
[2023-10-28] MEDS ORDERED: DAPAGLIFLOZIN PROPANEDIOL 10 MG TABLET PO SCH (09:00)
[2023-10-28] MEDS: APIXABAN 5 MG TAB PO SCH (09:08)
[2023-10-28] MEDS: guaiFENesin 600 MG TABLET.ER PO SCH (09:09)
[2023-10-28] MEDS: metOLazone 2.5 MG TAB PO SCH (09:09)
[2023-10-28] MEDS: METOPROLOL TARTRATE 50 MG TAB PO SCH (09:09)
[2023-10-28] MEDS: DOCUSATE 100 MG CAP PO SCH (09:09)
[2023-10-28] MEDS: AMIODARONE 200 MG TAB PO SCH (09:09)
[2023-10-28] MEDS: DIGOXIN 125 MCG TAB PO SCH (09:10)
[2023-10-28] MEDS: PANTOPRAZOLE 40 MG/10 ML VIAL IVP SCH (09:10)
[2023-10-28] MEDS: polyethylene glycoL 3350 17 GM POWD.PACK PO SCH (09:10)
--- NOTE | 2023-10-28 09:19 | P.PN ---
Subjective Progress Note Date: 10/28/23 73-year-old female who presented to the emergency department on September 26, complaining of arrhythmias, and palpitations. The patient does have a history of hypertension, atrial fibrillation, hyperlipidemia, pulmonary embolism, and hypothyroidism. She is post intubation mechanical ventilation, extubated on 10/16/2023. During the course of her illness, the patient also required bilateral thoracentesis and evacuation of transitive pleural fluid. On today's evaluation of 10/28/2023, the patient is awake and alert and communicating and she is not having any major respiratory distress. She's been adequately diuresed and the lower extremity edema has been much subsided at this point in time. His chest x-ray showing cardiomegaly and small lung volumes. There is improvement in aeration bilaterally. No airspace disease of consolidation. The patient is using the incentive spirometer. The patient is calm and comfortable. Denies having any chest pain. He ends of 20 with a creatinine of 0.8. Sodium levels of 135 and a potassium level is at 3.3. The white cell count at 17 with a hemoglobin of 16.6. She is awake and alert and tolerating her diet. She remains on Lasix 60 mg IV every 12 hours. She remains nature fibrillation. She remains on anticoagulation with Eliquis 5 mg by mouth twice a day. She is also metoprolol 150 mg by mouth twice a day. She is on digoxin 125 g on a daily basis. She is on thyroid hormone supplements. No other significant events overnight for now. The patient is a weak and she is ready to go to rehabilitation at this point. Objective - Vital Signs Vital signs: Vital Signs Temp 97.9 F 10/28/23 00:00 Pulse 103 H 10/28/23 04:00 Resp 12 10/28/23 04:00 BP 106/71 10/28/23 04:00 Pulse Ox 97 10/28/23 08:23 FiO2 4 10/19/23 08:00 Intake & Output 10/27/23 10/28/23 10/28/23 18:59 06:59 18:59 Intake Total 400 Output Total 1700 400 Balance -1300 -400 Weight 128.7 kg Intake: Oral 400 Output: Urine 1700 400 Other: Voiding Method Indwelling Catheter Indwelling Catheter ABP, PAP, CO, CI - Last Documented Arterial Blood Pressure 116/63 - Exam Currently on room air. The patient is awake and alert. HEENT examination is grossly unremarkable. Neck supple. Full range of motion. No adenopathy thyromegaly or neck vein distention. Cardiovascular examination reveals an irregular rhythm and rate. S1-S2 normal. No S3 or S4. No discernible murmur noted. Heart sounds are distant. Lungs reveal by basilar crackles. Breath sounds are equal bilaterally. No rhonchi. No wheezes. Saturations are 94 %. Abdomen soft bowel sounds are heard. No masses or tenderness. Extremities are intact. No cyanosis or clubbing. Mild lower extremity edema. Skin is without rash or lesion. Neurologic examination is brief but nonfocal. - Labs CBC & Chem 7: 10/28/23 03:49 10/28/23 03:49 Labs: Abnormal Lab Results - Last 24 Hours (Table) 10/27/23 10/27/23 10/27/23 Range/Units 11:36 16:39 20:19 WBC (3.8-10.6) k/uL Hgb (11.4-16.0) gm/dL Hct (34.0-46.0) % Neutrophils # (1.3-7.7) k/uL Sodium (137-145) mmol/L Potassium (3.5-5.1) mmol/L Chloride (98-107) mmol/L Carbon Dioxide (22-30) mmol/L BUN (7-17) mg/dL Glucose (74-99) mg/dL POC Glucose (mg/dL) 117 H 131 H 116 H (70-110) mg/dL Total Bilirubin (0.2-1.3) mg/dL AST (14-36) U/L ALT (4-34) U/L Total Protein (6.3-8.2) g/dL Albumin (3.5-5.0) g/dL 10/28/23 10/28/23 10/28/23 Range/Units 03:49 03:49 06:39 WBC 17.0 H (3.8-10.6) k/uL Hgb 16.6 H (11.4-16.0) gm/dL Hct 50.5 H (34.0-46.0) % Neutrophils # 14.4 H (1.3-7.7) k/uL Sodium 135 L (137-145) mmol/L Potassium 3.3 L (3.5-5.1) mmol/L Chloride 87 L (98-107) mmol/L Carbon Dioxide 41 H* (22-30) mmol/L BUN 52 H (7-17) mg/dL Glucose 114 H (74-99) mg/dL POC Glucose (mg/dL) 118 H (70-110) mg/dL Total Bilirubin 3.1 H (0.2-1.3) mg/dL AST 138 H (14-36) U/L ALT 133 H (4-34) U/L Total Protein 5.7 L (6.3-8.2) g/dL Albumin 3.3 L (3.5-5.0) g/dL Assessment and Plan Plan: Acute hypoxemic respiratory failure, secondary to worsening systolic congestive heart failure. The patient is improved significantly and the patient is currently on room air oxygen. The patient is post bilateral thoracentesis. The patient has been adequately diuresed and the patient is currently on Lasix 60 mg IV every 12 hours. Improvement in lower extremity edema is markedly. History of chronic atrial fibrillation, with rapid ventricular response. The patient has adequate rate control with metoprolol and the patient is on ant icoagulation with Eliquis Bilateral pleural effusions, secondary to CHF. The patient is post bilateral thoracentesis, fluid is a transudate Escherichia coli urinary tract infection, resolved. History of hypertension. History of hyperlipidemia. History of pulmonary embolism. History of hypothyroidism. History of osteoarthritis. Plan: Switch to 60 mg by mouth Lasix twice a day Continue incentive spirometer Continue metoprolol Continue anticoagulation with Eliquis Increase mobility Physical therapy We'll discharge this patient to [facility]
[2023-10-28] MEDS: FUROSEMIDE 10 MG/ML 10 ML VIAL IV SCH (10:02)
[2023-10-28 10:27] VITALS: PULSE 85
--- NOTE | 2023-10-28 11:12 | P.DS ---
Providers Date of admission: 09/26/23 12:07 Expected date of discharge: 10/28/23 Attending physician: Regulo Greene Consults: 09/26/23 12:07 Consult Physician Routine Consulting Provider: [facility] Consult Reason/Comments: chf, afib with rvr Do you want consulting provider notified?: Yes 09/30/23 12:28 Consult Physician Stat Consulting Provider: Filipe Jimenes Consult Reason/Comments: Shortness of breath, increased oxygen demand. Do you want consulting provider notified?: Yes Primary care physician: Regulo Greene Hospital Course: Final Diagnoses: Chronic Atrial fibrillation with rapid ventricular rate Secondary Hypotension, status post pressor dependent. Acute on chronic CHF exacerbation, diastolic dysfunction, ef 55-60%. Bilateral pleural effusions status post bilateral thoracentesis,transudative. Cytology negative for malignancy. Possible underlying pneumonia, felt to be less likely as per pulmonary. Acute hypoxic respiratory failure , status post mechanical ventilator-dependent ,secondary to the above Acute UTI, E. coli , completed antibiotic treatment Acute on chronic renal failure, stage III Pulmonary embolism bilaterally status post EKOS, 03/14/2022 Pulmonary hypertension Moderate mitral and tricuspid regurgitation Hypothyroidism Hypertension, history of Hyperlipidemia Osteoarthritis with history right knee placement in July 2022. Morbid obesity, BMI 46 Hospital course:This is a 73-year-old female with past medical history significant for atrial fibrillation, PE, status post EKOS 02/2022, hypertension, hypothyroidism admitted with atrial fibrillation with RVR and multiple other medical issues.Evaluated and treated by cardiology. Presented to the hospital with complaints of heart palpitations, hypertension , shortness of breath 1 week.Positive orthopnea , reports sleeping sitting up in a recliner as well as living downstairs in her home to avoid climbing stairs. Cardizem drip initiated, rate improving. Cardiology consult in place. Troponins negative 3 , proBNP pending .EKG rate atrial fibrillation with RVR heart rate 132 . Echo reported normal LV function, mild pulmonary hypertension, moderate mitral and moderate tricuspid regurgitation .Chest x-ray no acute pulmonary process. UA reports positive nitrates, many bacteria, small leukocytes, urine culture pending. 09/30/2023 recently placed on 2 L nasal cannula, then increased to 4 L, maintaining O2 sats in the low 90s .complains of mild increased shortness of breath, which she reports started actually during the night. She has been on Lasix IV push every 12 hours, 24-hour I&O reflecting a negative fluid balance. Renal function mildly worsened, BUN 37, creatinine 1.26. Sodium 125 .Maintained on Rocephin for acute UTI. Afebrile, WBC 13.7. Blood sugars controlled. 10/01/23 yesterday developed worsening pulmonary edema, transfer to ICU. Chest x-ray at that time reported worsening of large perihilar consolidation noted greater on the right, pulmonary edema versus diffuse pneumonia. Received additional Lasix IV push, frequency increased yesterday diuresed well with 24- hour I&O reflecting a negative fluid balance. Maintained on BiPAP throughout the night, placed on 13 L nasal cannula to facilitate patient's diet intake this morning. Chest x-ray repeated this morning reporting improving bilateral areas of consolidation. Telemetry sinus rhythm, continues on Cardizem drip, tachycardic with heart rates in the 130s to 140s. Denies chest pain, palpitations. Afebrile, normal WBC. BUN 37, creatinine 1.30. Blood sugars controlled. 10/07/23 used BiPAP overnight, currently maintaining O2 sats in the 90s on 6 L nasal cannula. Chest x-ray reported bilateral pleural effusions, chest ultrasound reported right pleural effusion 6.8 cm, left pleural effusion 7.5 cm with both marked for possible thoracentesis. Diuresing on Lasix IV push with 24-hour I&O reflecting a negative fluid balance, but continues to have significant lower extremity edema. Telemetry atrial fibrillation with heart rates up to 120s. Reports palpitations, no chest pain. Evaluated by cardiology, discussing RICO with cardioversion. 10/08/23 Eliquis on hold. status post right thoracentesis with 1200 MLS turbid pleural drainage aspirated. Tolerated procedure well. Postprocedure x-ray reported no pneumothorax, bilateral lower lobe infiltrate and small left effusion. Using BiPAP at night. Currently seem on Lasix IV push with 24-hour I&O reflecting a negative fluid balance. Telemetry atrial fibrillation with heart rates ranging from 90 to 110s. Maintaining O2 in the high 90s on 4-5 L nasal cannula. Bicarb 34, BUN 41, creatinine 1.03. 10/09/2023 chest x-ray reporting bilateral lower lobe infiltrate and small left effusion/no sizable pleural effusion on the right/no pneumothorax. Status post left thoracentesis this morning with 550 MLS turbid pleural drainage aspirated. Tolerated procedure well. Postprocedure chest x-ray reported no pneumothorax. Maintained on oral antiarrhythmics ,telemetry reporting atrial fibrillation. Cardioversion pending. Afebrile, normal WBC. Continues diuresing well on Lasix IV push with 24-hour I&O reflecting a negative fluid balance. sodium 136, potassium 3.8, bicarb 37, BUN 38, creatinine 0.97. Maintaining O2 sats in the 90s on 3 L nasal cannula. 10/10/2023 Eliquis resumed yesterday after thoracentesis. Pleural fluid Cytology pending . Telemetry atrial fibrillation, heart rate better controlled today on oral amiodarone, metoprolol, Cardizem. Cardioversion pending. BiPAP throughout the night. Denies chest pain, palpitations or shortness of breath. Maintaining O2 sats in the 90s on 2 L nasal cannula. Continues diuresing well on Lasix IV push with 24-hour I&O reflecting a negative fluid balance. Afebrile, normal WBC. Potassium 3.6, receiving replacement. BUN 36, creatinine 1.1 10/11/2023 BiPAP for short while during the night. Currently maintaining O2 sat in the 90s on room air. Continues diuresing well on Lasix IV push with 24-hour I&O reflecting a negative fluid balance. BUN 34, creatinine 1.24. Pleural fluid cytology pending. Cardizem discontinued, continues on amiodarone with metoprolol increased, A. fib controlled. Afebrile, normal WBC. Reports she ambulated yesterday, tolerated exertion well, O2 sat on room air after ambulation 95%. 10/14/2023 intubated, FiO2 40%/PEEP recently decreased to 8. Chest x-ray reported low lung volumes with grossly stable lung parenchyma opacities predominantly in lung bases, layering bilateral pleural effusions, Continues on diprovan, levophed and IV fluid hydration with saline 100 MLS an hour. Right pleural fluid cytology negative for malignancy. BNP 9280. BUN 62, creatinine increased to 2.39, lasix resumed. Continues on cefepime. Afebrile, WBC 24.6. Telemetry atrial fibrillation with RVR, antiarrhythmics adjusted per cardiology. 10/15/23 remains vent dependent with FiO2 40%/+8 of PEEP. Continues on levothyroid and diprovan. Maintained on empiric cefepime. Chest x-ray reporting stable; per pulmonary, pneumonia less likely. WBC decreased to 14.7. BUN 62, creatinine improving, decreased to 1.58. Reports patient follows commands. Echo reported suboptimal , reporting mild LV dysfunction. Telemetry atrial fibrillation with RVR, on oral amiodarone, beta jorge alberto increased with digoxin added to med regimen. Lasix resumed with improving urine output. 10/24/2023 maintaining O2 sats in the 90s on 2 L nasal cannula. Chest x-ray pending. Telemetry atrial fibrillation. Diuresing well on Lasix IV push with 24-hour I&O reflecting a negative fluid balance. BUN 53, creatinine 0.91. Blood sugars controlled. 10/25/2023 continues on Cipro, nebulized bronchodilators . Afebrile, ebony ntaining O2 sats in the 90s on 2 L nasal cannula. Maintained on oral amiodarone, digoxin and metoprolol. Telemetry atrial fibrillation with rate in the low 100s currently. Slept well last night. Denies chest pain, palpitations or increasing shortness of breath. Significant clinical improvement. Maintained on antiarrhythmics,diuretics and anticoagulated on Eliquis. Diuresed well on Lasix IV push with 24-hour I&O reflecting a negative fluid balance. Bilateral lower extremity edema nearly subsided.Chest x-ray reporting cardiomegaly. Oxygen has been weaned off and patient is maintaining O2 sats in the 90s on room air. Conversing without dyspnea. BUN 52, creatinine 0.88 Denies any chest pain, palpitations or shortness of breath. Significant weakness. Patient will be discharged to [facility] subacute rehab. In a stable condition with guarded prognosis pending final DC recommendations and clearance from both pulmonary and cardiology. The impression and plan of care has been dictated as directed. : I performed a history and examination of this patient, discussed the same with the dictator. I agree with the dictator's note ,documented as a scribe. Any additional findings or plans will be noted. Patient Condition at Discharge: Stable Plan - Discharge Summary New Discharge Prescriptions: New Dapagliflozin Propanediol [Farxiga] 10 mg PO DAILY tab Digoxin [Lanoxin] 125 mcg PO DAILY tab Metoprolol Tartrate [Lopressor] 150 mg PO BID tab Albuterol Nebulized [Ventolin Nebulized] 2.5 mg INHALATION RT-QID PRN ml PRN Reason: Shortness Of Breath Or Wheezing Docusate [Colace] 100 mg PO BID cap Amiodarone [Cordarone] 200 mg PO BID tab Ipratropium-Albuterol Nebulize [Duoneb 0.5 mg-3 mg/3 ml Soln] 3 ml INHALATION RT-QID PRN each PRN Reason: Shortness Of Breath Or Wheezing INSULIN LISPRO (HumaLOG) [humaLOG] 0 unit SQ ACHS #10 ml Melatonin 5 mg PO HS tab polyethylene glycoL 3350 [Miralax] 17 gm PO DAILY packet guaiFENesin [Mucinex] 600 mg PO Q12HR tab Calcium Carbonate [Tums] 1,000 mg PO TID PRN tab PRN Reason: Heartburn Continue Levothyroxine Sodium [Synthroid] 88 mcg PO DAILY Magnesium 250 mg PO DAILY Atorvastatin [Lipitor] 80 mg PO HS Apixaban [Eliquis] 5 mg PO BID Changed Furosemide [Lasix] 60 mg PO BID #0 Discontinued Metoprolol Tartrate [Lopressor] 50 mg PO BID 60 Days #120 tab Discharge Medication List Atorvastatin [Lipitor] 80 mg PO HS 02/25/22 [History] Apixaban [Eliquis] 5 mg PO BID 09/09/22 [History] Levothyroxine Sodium [Synthroid] 88 mcg PO DAILY 09/09/22 [History] Magnesium 250 mg PO DAILY 09/26/23 [History] Albuterol Nebulized [Ventolin Nebulized] 2.5 mg INHALATION RT-QID PRN ml 10/28/23 [Rx] Amiodarone [Cordarone] 200 mg PO BID tab 10/28/23 [Rx] Calcium Carbonate [Tums] 1,000 mg PO TID PRN tab 10/28/23 [Rx] Dapagliflozin Propanediol [Farxiga] 10 mg PO DAILY tab 10/28/23 [Rx] Digoxin [Lanoxin] 125 mcg PO DAILY tab 10/28/23 [Rx] Docusate [Colace] 100 mg PO BID cap 10/28/23 [Rx] Furosemide [Lasix] 60 mg PO BID #0 10/28/23 [Rx] INSULIN LISPRO (HumaLOG) [humaLOG] 0 unit SQ ACHS #10 ml 10/28/23 [Rx] Ipratropium-Albuterol Nebulize [Duoneb 0.5 mg-3 mg/3 ml Soln] 3 ml INHALATION RT-QID PRN each 10/28/23 [Rx] Melatonin 5 mg PO HS tab 10/28/23 [Rx] Metoprolol Tartrate [Lopressor] 150 mg PO BID tab 10/28/23 [Rx] guaiFENesin [Mucinex] 600 mg PO Q12HR tab 10/28/23 [Rx] polyethylene glycoL 3350 [Miralax] 17 gm PO DAILY packet 10/28/23 [Rx] Follow up Appointment(s)/Referral(s): Regulo Greene DO [Primary Care Provider] - 1 Week (after dc from Sub acute rehab) [facility] Visiting Nurse, [NON-STAFF] - 1-2 Days (Home care will call to set up appointment, any questions please call agency.) Activity/Diet/Wound Care/Special Instructions: [facility] final dc rec. and follow-up visit. Javon HUERTA CBC,BMP in 3 days Discharge Disposition: TRANSFER TO SNF/ECF
[2023-10-28 11:16] LABS: Glucose,Whole Blood 101 mg/dL (70-110)
[2023-10-28 15:36] VITALS: BP 100/66; RESP 13; TEMP 98.1
[2023-10-28] MEDS ORDERED: FUROSEMIDE 20 MG TAB PO SCH (16:00)
== END 2023-10-28 15:42 | DRG 291 ==
LOC: EC 08:09 → 3SCARD 12:07 → 2SICU 09-30 13:24 → 3SCARD 10-04 22:53 → 2SICU 10-05 01:05 → 3SCARD 10-12 08:00 → 2SICU 10-12 09:24
PROVIDERS: ADMIT Family Medicine; ATTEND Family Medicine
PROC: 5A09357 Assistance with Respiratory Ventilation, Less than 24 Consecutive Hours, Continuous Positive Airway Pressure (ICD-10-PCS; 2023-09-30)
PROC: 3E033XZ Introduction of Vasopressor into Peripheral Vein, Percutaneous Approach (ICD-10-PCS; 2023-09-30)
PROC: 0W993ZZ Drainage of Right Pleural Cavity, Percutaneous Approach (ICD-10-PCS; principal; 2023-10-08)
PROC: 0W9B3ZZ Drainage of Left Pleural Cavity, Percutaneous Approach (ICD-10-PCS; 2023-10-09)
PROC: 02HV33Z Insertion of Infusion Device into Superior Vena Cava, Percutaneous Approach (ICD-10-PCS; 2023-10-12)
PROC: 03HY32Z Insertion of Monitoring Device into Upper Artery, Percutaneous Approach (ICD-10-PCS; 2023-10-12)
PROC: 4A133B1 Monitoring of Arterial Pressure, Peripheral, Percutaneous Approach (ICD-10-PCS; 2023-10-12)
PROC: 4A133J1 Monitoring of Arterial Pulse, Peripheral, Percutaneous Approach (ICD-10-PCS; 2023-10-12)
PROC: 0BH18EZ Insertion of Endotracheal Airway into Trachea, Via Natural or Artificial Opening Endoscopic (ICD-10-PCS; 2023-10-12)
PROC: 5A1945Z Respiratory Ventilation, 24-96 Consecutive Hours (ICD-10-PCS; 2023-10-12)
DX: I13.0 Hypertensive heart and chronic kidney disease with heart failure and stage 1 through stage 4 chronic kidney disease, or unspecified chronic kidney disease (principal); A41.9 Sepsis, unspecified organism; J96.01 Acute respiratory failure with hypoxia; J18.9 Pneumonia, unspecified organism; I50.33 Acute on chronic diastolic (congestive) heart failure; J91.8 Pleural effusion in other conditions classified elsewhere; N17.9 Acute kidney failure, unspecified; I48.19 Other persistent atrial fibrillation; Z68.43 Body mass index [BMI] 50.0-59.9, adult; N39.0 Urinary tract infection, site not specified; J98.11 Atelectasis; I27.22 Pulmonary hypertension due to left heart disease; N18.30 Chronic kidney disease, stage 3 unspecified; E66.01 Morbid (severe) obesity due to excess calories; I95.9 Hypotension, unspecified; I15.9 Secondary hypertension, unspecified; I08.1 Rheumatic disorders of both mitral and tricuspid valves; E78.00 Pure hypercholesterolemia, unspecified; E03.9 Hypothyroidism, unspecified; B96.20 Unspecified Escherichia coli [E. coli] as the cause of diseases classified elsewhere; J98.4 Other disorders of lung; E87.5 Hyperkalemia; R00.1 Bradycardia, unspecified; R53.81 Other malaise; Z79.01 Long term (current) use of anticoagulants; M19.90 Unspecified osteoarthritis, unspecified site; Z20.822 Contact with and (suspected) exposure to COVID-19; Z96.651 Presence of right artificial knee joint; Z96.641 Presence of right artificial hip joint; Z82.49 Family history of ischemic heart disease and other diseases of the circulatory system; Z86.711 Personal history of pulmonary embolism; Z79.890 Hormone replacement therapy; Z79.899 Other long term (current) drug therapy; Z88.0 Allergy status to penicillin; Z91.018 Allergy to other foods; Z88.5 Allergy status to narcotic agent
CPT/HCPCS: 36410; 36415; 36600; 71045; 71046; 76604; 76937; 80048; 80053; 81001; 82805; 82945; 83036; 83615; 83735; 83880; 84132; 84145; 84157; 84443; 84484; 85025; 85027; 85379; 85610; 85730; 87070; 87077; 87086; 87186; 87205; 87636; 88108; 88305; 89050; 93005; 93306; 93308; 94002; 94003; 94640; 94660; 94760; 96365; 96366; 96367; 96375; 96376; 99291

== ENCOUNTER 2023-11-07 09:37 | Inpatient (IN) | payer MEDICARE, OTHER ==
[2023-11-07] MEDS ORDERED: LORazepam 0.5 MG TAB PO STA (09:59)
[2023-11-07] MEDS ORDERED: ACETAMINOPHEN TAB 500 MG TAB PO STA (10:00)
--- NOTE | 2023-11-07 10:40 | XR ---
EXAMINATION TYPE: XR chest 2V DATE OF EXAM: 11/07/2023 COMPARISON: 10/27/2023 TECHNIQUE: PA and lateral views submitted. HISTORY: Difficulty breathing FINDINGS: Limited inspiration with subsegmental basilar changes and elevated right hemidiaphragm. No overt fail ure or pneumothorax. Arthropathy of the shoulders. Degenerative change of the spine. Right hilum prom inent but limited in assessment. IMPRESSION: 1. Limited inspiration with basilar atelectasis favored over pneumonia.
--- NOTE | 2023-11-07 10:42 | ED ---
General Adult HPI - General Chief complaint: Shortness of Breath Stated complaint: sob Time Seen by Provider: 11/07/23 09:50 Source: patient, EMS, RN notes reviewed, old records reviewed Mode of arrival: EMS Limitations: no limitations - History of Present Illness Initial comments: Patient is a 73-year-old female who presents emergency Department complaining of shortness of breath. States she had a somewhat stressful morning. Has a history of A. fib on blood thinners, hypertension, prior PEs, is bedbound essentially. Was at her nursing facility and she wanted some powder for her sore bottom and she suspected early pressure wounds. The nursing staff wanted to give her cream. There was a verbal altercation, the patient did eventually get powder. States that afterward she felt short of breath. Presents for further evaluation at this time. Has chronic lower extremity edema, denies any significant cough. Denies any chest pain. Denies any abdominal pain, nausea, vomiting. No other acute complaints at this time. Was recently admitted to the hospital for CHF. Presents for further evaluation at this time.Currently denies any symptoms. - Related Data Home Medications Medication Instructions Recorded Confirmed Atorvastatin [Lipitor] 80 mg PO HS@2100 02/25/22 11/07/23 Apixaban [Eliquis] 5 mg PO BID@0800,1700 09/09/22 11/07/23 Levothyroxine Sodium [Synthroid] 88 mcg PO DAILY@0600 09/09/22 11/07/23 Magnesium 250 mg PO DAILY@0800 09/26/23 11/07/23 Acetaminophen [Tylenol 8 Hour] 650 mg PO Q4H PRN 11/07/23 11/07/23 Albuterol Sulfate [Ventolin HFA] 1 puff INHALATION RT-QID PRN 11/07/23 11/07/23 Amiodarone [Cordarone] 200 mg PO BID@0800,1700 11/07/23 11/07/23 Dapagliflozin Propanediol [Farxiga] 10 mg PO DAILY@0600 11/07/23 11/07/23 Digoxin [Lanoxin] 125 mcg PO DAILY@0600 11/07/23 11/07/23 Docusate [Colace] 100 mg PO BID@0800,1700 11/07/23 11/07/23 Furosemide [Lasix] 60 mg PO BID@0600,1400 11/07/23 11/07/23 INSULIN LISPRO (HumaLOG) [humaLOG] See Protocol SQ ACHS 11/07/23 11/07/23 Ipratropium-Albuterol Nebulize 3 ml INHALATION RT-Q6H 11/07/23 11/07/23 [Duoneb 0.5 mg-3 mg/3 ml Soln] Magnesium Hydroxide [Milk of 7,200 mg PO DAILY PRN 11/07/23 11/07/23 Magnesia Concentrate] Melatonin 5 mg PO HS@2100 11/07/23 11/07/23 Metoprolol Tartrate [Lopressor] 150 mg PO BID@0800,2100 11/07/23 11/07/23 Na Phos,M-B/Na Phos,Di-Ba [Fleet 133 ml RECTAL DAILY PRN 11/07/23 11/07/23 Adult] Potassium Chloride ER [K-Dur 20] 20 meq PO DAILY@1700 11/07/23 11/07/23 bisacodyL [Dulcolax] 10 mg RECTAL DAILY PRN 11/07/23 11/07/23 guaiFENesin [Mucinex] 600 mg PO BID@0800,2100 11/07/23 11/07/23 polyethylene glycoL 3350 [Miralax] 17 gm PO DAILY@0800 11/07/23 11/07/23 Previous Rx's Medication Instructions Recorded Calcium Carbonate [Tums] 1,000 mg PO TID PRN tab 10/28/23 Allergies Allergy/AdvReac Type Severity Reaction Status Date / Time Penicillins Allergy Rash/Hives Verified 11/07/23 12:04 @ Allergy testing site strawberry Allergy Rash/Hives Verified 11/07/23 12:04 all over body tramadol Allergy Unknown Verified 11/07/23 12:04 Review of Systems ROS Statement: Those systems with pertinent positive or pertinent negative responses have been documented in the HPI. Review of Systems: CONST: Denies fever EYES: Denies blurry vision ENT: Denies nasal congestion C/V: Denies Chest pain RESP: Denies shortness of breath GI: Denies abdominal pain : Denies dysuria SKIN: Denies rash. MSK: Denies joint pain. NEURO: Denies headache ROS Other: All systems not noted in ROS Statement are negative. Past Medical History Past Medical History: Atrial Fibrillation, Hyperlipidemia, Hypertension, Osteoarthritis (OA), Pulmonary Embolus (PE), Thyroid Disorder Additional Past Medical History / Comment(s): PE bilateral with EKOS 02/2022 History of Any Multi-Drug Resistant Organisms: None Reported Past Surgical History: Cholecystectomy, Hysterectomy Additional Past Surgical History / Comment(s): Pt states she had a rt hip repla cement 20 years ago, right knee replacement jul 2022 Past Anesthesia/Blood Transfusion Reactions: No Reported Reaction Past Psychological History: No Psychological Hx Reported Smoking Status: Never smoker Past Alcohol Use History: None Reported Past Drug Use History: None Reported - Past Family History Father Family Medical History: AICD/Pacemaker Additional Family Medical History / Comment(s): cabg at 84 Mother Additional Family Medical History / Comment(s): non hodgkins lymphoma General Exam - General Exam Comments Initial Comments: General: Appears in no acute distress. HEAD: Normal with no signs of head trauma. EYES: PERRLA, EOMI, conjunctiva normal, no discharge. ENT: Hearing grossly intact, normal oropharynx. RESPIRATORY: Clear breath sounds bilaterally. No wheezes, rales, or rhonchi. No hypoxia. No increased work of breathing. C/V: Regular rate and rhythm. S1 and S2 auscultated, symmetrical bilateral lower extremity edema, peripheral pulses 2+ and intact throughout ABD: Abd is soft, nontender, nondistended EXT: Normal range of motion, no obvious deformity SKIN: Likely stage I sacral wound at worse with surrounding erythema NEURO: Alert and oriented x 4. Limitations: no limitations Course Vital Signs 11/07/23 11/07/23 11/07/23 09:39 17:00 19:43 Temperature 98.4 F Pulse Rate 70 75 68 Respiratory 18 20 18 Rate Blood Pressure 102/63 109/66 122/78 O2 Sat by Pulse 99 99 99 Oximetry 11/07/23 20:38 Temperature 97.6 F Pulse Rate 78 Respiratory 20 Rate Blood Pressure 104/86 O2 Sat by Pulse 98 Oximetry Medical Decision Making - Medical Decision Making Was pt. sent in by a medical professional or institution (, PA, ENVELOPE PRESS OPERATOR, urgent care, hospital, or long term...) When possible be specific @ -No Did you speak to anyone other than the patient for history (EMS, parent, family, police, friend...)? What history was obtained from this source @ -No Did you review nursing and triage notes (agree or disagree)? Why? @ -I reviewed and agree with nursing and triage notes Were old charts reviewed (outside hosp., previous admission, EMS record, old EKG, old radiological studies, urgent care reports/EKG's, long term records)? Report findings @ -Old charts reviewed Differential Diagnosis (chest pain, altered mental status, abdominal pain women, abdominal pain men, vaginal bleeding, weakness, fever, dyspnea, syncope, headache, dizziness, GI bleed, back pain, seizure, CVA, palpatations, mental health, musculoskeletal)? @ -Differential Dyspnea: Coronary syndrome, arrhythmia, tamponade, asthma, COPD, pulmonary embolism, pneumonia, pneumothorax, pulmonary effusion, anaphylaxis, diabetic ketoacidosis, flailed chest, pulmonary contusion, diaphragmatic rupture, anemia, neuromusc ular, this is not meant to be an all-inclusive list. EKG interpreted by me (3pts min.). @ -As above X-rays interpreted by me (1pt min.). @ -Chest x-ray reveals no obvious acute cardiopulmonary process. CT interpreted by me (1pt min.). @ -None done U/S interpreted by me (1pt. min.). @ -None done What testing was considered but not performed or refused? (CT, X-rays, U/S, labs)? Why? @ -None What meds were considered but not given or refused? Why? @ -None Did you discuss the management of the patient with other professionals (professionals i.e. DrSarah, PA, ENVELOPE PRESS OPERATOR, lab, RT, psych nurse, social psychologist, handbag finisher, teacher, conservation enforcement officer, renal case manager)? Give summary @ -Initially we attempted to admit the patient to [facility] as according to perfect serve, they were covering Dr. Greene.. However this is not the case. I did speak with Dr. Greene who accepted the admission. Was smoking cessation discussed for >3mins.? @ -No Was critical care preformed (if so, how long)? @ -No Were there social determinants of health that impacted care today? How? (Homelessness, low income, unemployed, alcoholism, drug addiction, transportation, low edu. Level, literacy, decrease access to med. care, halfway, rehab)? @ -No Was there de-escalation of care discussed even if they declined (Discuss DNR or withdrawal of care, Hospice)? DNR status @ -No What co-morbidities impacted this encounter? (DM, HTN, Smoking, COPD, CAD, Cancer, CVA, ARF, Chemo, Hep., AIDS, mental health diagnosis, sleep apnea, morbid obesity)? @ -None Was patient admitted / discharged? Hospital course, mention meds given and route, prescriptions, significant lab abnormalities, going to OR and other pertinent info. @ -Based on patient's presentation and physical exam, presents for episode of dyspnea which may be related to anxiety however does have a significant cardiac history. We will obtain screening for CHF. Vital signs within acceptable limits. Patient will be given a small dose of oral Ativan for anxiety. She also be given Tylenol for her sore bottom. Patient was in agreement this plan. Patient is currently in A. fib but has a history of that. No RVR. She is compliant with blood thinners. No concern for PE at this time. EKG shows atrial fibrillation. Chest x-ray shows no obvious acute process. Labs remarkable for BNP of 13,000. Troponin is also elevated to 0.1. Remainder of the labs unremarkable. After the patient. We will continue to trend the troponin is a do believe it is likely secondary to CHF she has no chest pain. Nonspecific ST segment and T- wave findings on EKG. She was in agreement this plan. Patient did receive an aspirin. We will dose the patient with Lasix as well. Initially we attempted to admit the patient to [facility] as according to perfect serve, they were covering Dr. Greene.. However this is not the case. I did speak with Dr. Greene who accepted the admission. Undiagnosed new problem with uncertain prognosis? @ -No Drug Therapy requiring intensive monitoring for toxicity (Heparin, Nitro, Insulin, Cardizem)? @ -No Were any procedures done? @ -No Diagnosis/symptom? @ -CHF, elevated troponin Acute, or Chronic, or Acute on Chronic? @ -Acute on chronic Uncomplicated (without systemic symptoms) or Complicated (systemic symptoms)? @ -Compensated Side effects of treatment? @ -none Exacerbation, Progression, or Severe Exacerbation] @ -no Poses a threat to life or bodily function? @ -Possibly, yes - Lab Data Result diagrams: 11/08/23 07:18 11/07/23 10:06 Lab Results 12/11/07/23 11/07/23 Range/Units 10:06 10:06 10:06 WBC 6.4 (3.8-10.6) k/uL RBC 4.56 (3.80-5.40) m/uL Hgb 14.3 (11.4-16.0) gm/dL Hct 43.9 (34.0-46.0) % MCV 96.3 (80.0-100.0) fL MCH 31.4 (25.0-35.0) pg MCHC 32.6 (31.0-37.0) g/dL RDW 15.4 (11.5-15.5) % Plt Count 299 (150-450) k/uL MPV 7.9 Neutrophils % 68 % Lymphocytes % 21 % Monocytes % 6 % Eosinophils % 2 % Basophils % 0 % Neutrophils # 4.4 (1.3-7.7) k/uL Lymphocytes # 1.3 (1.0-4.8) k/uL Monocytes # 0.4 (0-1.0) k/uL Eosinophils # 0.1 (0-0.7) k/uL Basophils # 0.0 (0-0.2) k/uL PT 12.8 H (10.0-12.5) sec INR 1.2 H (<1.2) APTT 33.0 H (22.0-30.0) sec Sodium 133 L (137-145) mmol/L Potassium 4.3 (3.5-5.1) mmol/L Chloride 91 L (98-107) mmol/L Carbon Dioxide 30 (22-30) mmol/L Anion Gap 12 mmol/L BUN 71 H (7-17) mg/dL Creatinine 1.09 H (0.52-1.04) mg/dL Est GFR (CKD-EPI)AfAm 58 (>60 ml/min/1.73 sqM) Est GFR (CKD-EPI)NonAf 50 (>60 ml/min/1.73 sqM) Glucose 89 (74-99) mg/dL Calcium 8.8 (8.4-10.2) mg/dL Magnesium 2.2 (1.6-2.3) mg/dL Total Bilirubin 2.3 H (0.2-1.3) mg/dL AST 95 H (14-36) U/L ALT 118 H (4-34) U/L Alkaline Phosphatase 112 (38-126) U/L Troponin I (0.000-0.034) ng/mL NT-Pro-B Natriuret Pep 34099 pg/mL Total Protein 6.1 L (6.3-8.2) g/dL Albumin 3.5 (3.5-5.0) g/dL Influenza Type A (PCR) (Not Detectd) Influenza Type B (PCR) (Not Detectd) RSV (PCR) (Not Detectd) SARS-CoV-2 (PCR) (Not Detectd) 11/07/23 11/07/23 Range/Units 10:06 10:06 WBC (3.8-10.6) k/uL RBC (3.80-5.40) m/uL Hgb (11.4-16.0) gm/dL Hct (34.0-46.0) % MCV (80.0-100.0) fL MCH (25.0-35.0) pg MCHC (31.0-37.0) g/dL RDW (11.5-15.5) % Plt Count (150-450) k/uL MPV Neutrophils % % Lymphocytes % % Monocytes % % Eosinophils % % Basophils % % Neutrophils # (1.3-7.7) k/uL Lymphocytes # (1.0-4.8) k/uL Monocytes # (0-1.0) k/uL Eosinophils # (0-0.7) k/uL Basophils # (0-0.2) k/uL PT (10.0-12.5) sec INR (<1.2) APTT (22.0-30.0) sec Sodium (137-145) mmol/L Potassium (3.5-5.1) mmol/L Chloride (98-107) mmol/L Carbon Dioxide (22-30) mmol/L Anion Gap mmol/L BUN (7-17) mg/dL Creatinine (0.52-1.04) mg/dL Est GFR (CKD-EPI)AfAm (>60 ml/min/1.73 sqM) Est GFR (CKD-EPI)NonAf (>60 ml/min/1.73 sqM) Glucose (74-99) mg/dL Calcium (8.4-10.2) mg/dL Magnesium (1.6-2.3) mg/dL Total Bilirubin (0.2-1.3) mg/dL AST (14-36) U/L ALT (4-34) U/L Alkaline Phosphatase (38-126) U/L Troponin I 0.118 H* (0.000-0.034) ng/mL NT-Pro-B Natriuret Pep pg/mL Total Protein (6.3-8.2) g/dL Albumin (3.5-5.0) g/dL Influenza Type A (PCR) Not Detected (Not Detectd) Influenza Type B (PCR) Not Detected (Not Detectd) RSV (PCR) Not Detected (Not Detectd) SARS-CoV-2 (PCR) Not Detected (Not Detectd) - EKG Data -: EKG Interpreted by Me EKG Comments: 12-lead Electrocardiogram Interpretation Note EKG was reviewed and interpreted by myself. 12-lead ECG performed at 1119 is interpreted by me as revealing atrial fibrillation at a rate of 69 beats per minute. [place] is normal. QRS duration is 94 ms, QTc is [address] and T wave abnormalities. . R wave progression across the precordium was satisfactory. . Disposition Clinical Impression: CHF (congestive heart failure), Elevated troponin Disposition: ADMITTED IP TO THIS HOSP Condition: Stable Time of Disposition: 12:42
[2023-11-07 11:02] LABS: Basophils % (A) 0 %; Eosinophils # (A) 0.1 k/uL (0-0.7); Eosinophils % (A) 2 %; HCT 43.9 % (34.0-46.0); HGB 14.3 gm/dL (11.4-16.0); Lymphocytes # (A) 1.3 k/uL (1.0-4.8); Lymphocytes % (A) 21 %; MCH 31.4 pg (25.0-35.0); MCHC 32.6 g/dL (31.0-37.0); MCV 96.3 fL (80.0-100.0); Mean Platelet Volume 7.9; Monocytes # (A) 0.4 k/uL (0-1.0); Monocytes % (A) 6 %; Neutrophils # (A) 4.4 k/uL (1.3-7.7); Neutrophils % (A) 68 %; Platelet Count 299 k/uL (150-450); RBC 4.56 m/uL (3.80-5.40); RDW 15.4 % (11.5-15.5); WBC 6.4 k/uL (3.8-10.6)
[2023-11-07 11:13] LABS: ALT 118 U/L (4-34); African American GFR (CKD) 58 (>60 ml/min/1.73 sqM); Albumin 3.5 g/dL (3.5-5.0); Anion Gap 12 mmol/L; Blood Urea Nitrogen 71 mg/dL (7-17); Calcium 8.8 mg/dL (8.4-10.2); Carbon Dioxide 30 mmol/L (22-30); Chloride 91 mmol/L (98-107); Glucose 89 mg/dL (74-99); Non-African American GFR(CKD) 50 (>60 ml/min/1.73 sqM); Sodium 133 mmol/L (137-145); Total Bilirubin 2.3 mg/dL (0.2-1.3); Total Protein 6.1 g/dL (6.3-8.2)
[2023-11-07 11:14] LABS: INR 1.2 (<1.2); Prothrombin Time 12.8 sec (10.0-12.5)
[2023-11-07 11:21] LABS: NT-Pro-B-Type Natriuretic Pept 13800 pg/mL
[2023-11-07 11:24] LABS: Magnesium 2.2 mg/dL (1.6-2.3); Potassium 4.3 mmol/L (3.5-5.1)
[2023-11-07 11:25] LABS: AST 95 U/L (14-36); Alkaline Phosphatase 112 U/L (38-126)
[2023-11-07] MEDS ORDERED: FUROSEMIDE 10 MG/ML 4 ML VIAL IV STA (11:35)
[2023-11-07] MEDS ORDERED: NALOXONE 0.4 MG/ML 1 ML VIAL IV PRN (13:04)
[2023-11-07] MEDS ORDERED: MAGNESIUM HYDROXIDE 2,400 MG/30 ML CUP PO PRN (13:05)
[2023-11-07] MEDS ORDERED: ALBUTEROL NEBULIZED 2.5 MG/3 ML INHALATION PRN (13:05)
[2023-11-07] MEDS ORDERED: bisacodyL 10 MG SUPP RECTAL PRN (13:05)
[2023-11-07] MEDS ORDERED: DEXTROSE 50% SYRINGE 50 ML IVP PRN ×2 (13:07)
[2023-11-07] MEDS ORDERED: ASPIRIN 81 MG PO STA (13:27)
[2023-11-07] MEDS ORDERED: POTASSIUM CHLORIDE ER 20 MEQ TAB.ER PO SCH (17:00)
[2023-11-07 19:27] LABS: Glucose,Whole Blood 108 mg/dL (70-110)
[2023-11-07] MEDS: INSULIN ASPART (NovoLOG) 100 UNIT/ML VIAL SQ SCH (19:33)
[2023-11-07] MEDS: APIXABAN 5 MG TAB PO SCH (19:37)
[2023-11-07] MEDS: DOCUSATE 100 MG CAP PO SCH (19:38)
[2023-11-07] MEDS: AMIODARONE 200 MG TAB PO SCH (19:38)
[2023-11-07] MEDS: IPRATROPIUM-ALBUTEROL 3 ML NEB INHALATION SCH ×2 (19:50→21:14)
[2023-11-07] MEDS: ATORVASTATIN 80 MG TAB PO SCH (21:42)
[2023-11-07] MEDS: guaiFENesin 600 MG TABLET.ER PO SCH (21:42)
[2023-11-07] MEDS: MELATONIN 5 MG TABLET PO SCH (21:42)
[2023-11-07] MEDS: METOPROLOL TARTRATE 50 MG TAB PO SCH (21:43)
[2023-11-08] MEDS: IPRATROPIUM-ALBUTEROL 3 ML NEB INHALATION SCH ×4 (00:53→21:23)
[2023-11-08] MEDS: INSULIN ASPART (NovoLOG) 100 UNIT/ML VIAL SQ SCH ×3 (05:45→16:13)
[2023-11-08 06:24] LABS: Glucose,Whole Blood 84 mg/dL (70-110)
[2023-11-08] MEDS: DIGOXIN 125 MCG TAB PO SCH (06:50)
[2023-11-08] MEDS: LEVOTHYROXINE 88 MCG TAB PO SCH (06:50)
[2023-11-08 07:33] LABS: Anisocytosis Slight; Basophils % (A) 1 %; Eosinophils # (A) 0.2 k/uL (0-0.7); Eosinophils % (A) 2 %; HCT 44.9 % (34.0-46.0); HGB 14.6 gm/dL (11.4-16.0); Lymphocytes # (A) 1.3 k/uL (1.0-4.8); Lymphocytes % (A) 19 %; MCH 31.9 pg (25.0-35.0); MCHC 32.6 g/dL (31.0-37.0); Macrocytosis Slight; Mean Platelet Volume 8.1; Monocytes # (A) 0.5 k/uL (0-1.0); Monocytes % (A) 8 %; Neutrophils # (A) 4.5 k/uL (1.3-7.7); Neutrophils % (A) 67 %; Platelet Count 240 k/uL (150-450); RBC 4.59 m/uL (3.80-5.40); RDW 16.1 % (11.5-15.5); WBC 6.8 k/uL (3.8-10.6)
[2023-11-08 07:59] LABS: African American GFR (CKD) 59 (>60 ml/min/1.73 sqM); Anion Gap 13 mmol/L; Blood Urea Nitrogen 64 mg/dL (7-17); Calcium 8.6 mg/dL (8.4-10.2); Carbon Dioxide 23 mmol/L (22-30); Chloride 96 mmol/L (98-107); Glucose 83 mg/dL (74-99); Non-African American GFR(CKD) 51 (>60 ml/min/1.73 sqM); Sodium 132 mmol/L (137-145)
[2023-11-08] MEDS: METOPROLOL TARTRATE 50 MG TAB PO SCH ×2 (08:48→20:34)
[2023-11-08] MEDS: MAGNESIUM OXIDE 400 MG TAB PO SCH (08:49)
[2023-11-08] MEDS: AMIODARONE 200 MG TAB PO SCH (08:49)
[2023-11-08] MEDS: DOCUSATE 100 MG CAP PO SCH ×2 (08:49→15:07)
[2023-11-08] MEDS: APIXABAN 5 MG TAB PO SCH ×2 (08:49→13:11)
[2023-11-08] MEDS: guaiFENesin 600 MG TABLET.ER PO SCH ×2 (08:49→20:32)
--- NOTE | 2023-11-08 09:35 | P.HPIM ---
History of Present Illness H&P Date: 11/08/23 This is a pleasant 73-year-old female recently discharged on 10/28/2023 to [facility] subacute rehab after a lengthy inpatient hospitalization with atrial fibrillation, CHF, bilateral pleural effusions and multiple other medical issues. For specific details please refer to EHR. Patient was transported to the ER with complaints of shortness of breath. Reports she had a stressful morning, while attempting to persuade staff to order nystatin powder instead of cream for her sore bottom/stage I sacral wound. Apparently she had a verbal altercation, developed shortness of breath afterwards. Reports she has been spending too much time sitting in her wheelchair.Denies chest pain, palpitations. Denies lightheadedness dizziness or focal deficits. Denies nausea vomiting or diarrhea. Denies abdominal pain. Denies syncope. Troponin 0.118, 0.110 0.110. EKG reporting atrial fibrillation, nonspecific ST segment and T-wave changes. Chest x-ray reporting limited inspiration with basilar atel ectasis favored over pneumonia. Afebrile, normal WBC, maintaining O2 sats of 99% on room air. Respiratory rate 14-16. Received Lasix IV push in the ER, potassium level up to 5, KDur placed on hold. Review of Systems Constitutional: Denied any fatigue denied any fever. Cardio vascular: denied any chest pain, palpitations Gastrointestinal denied any nausea vomiting Pulmonary: Denied shortness of breath cough Neurologic denied any new focal deficits ROS Statement: Those systems with pertinent positive or pertinent negative responses have been documented in the HPI. ROS Other: All systems not noted in ROS Statement are negative. Past Medical History Past Medical History: Atrial Fibrillation, Hyperlipidemia, Hypertension, Osteoarthritis (OA), Pulmonary Embolus (PE), Thyroid Disorder Additional Past Medical History / Comment(s): PE bilateral with EKOS 02/2022 History of Any Multi-Drug Resistant Organisms: None Reported Past Surgical History: Cholecystectomy, Hysterectomy Additional Past Surgical History / Comment(s): Pt states she had a rt hip replacement 20 years ago, right knee replacement jul 2022 Past Anesthesia/Blood Transfusion Reactions: No Reported Reaction Past Psychological History: No Psychological Hx Reported Smoking Status: Never smoker Past Alcohol Use History: None Reported Past Drug Use History: None Reported - Past Family History Father Family Medical History: AICD/Pacemaker Additional Family Medical History / Comment(s): cabg at 84 Mother Additional Family Medical History / Comment(s): non hodgkins lymphoma Medications and Allergies Home Medications Medication Instructions Recorded Confirmed Type Atorvastatin [Lipitor] 80 mg PO HS@209902/25/22 11/07/23 History Apixaban [Eliquis] 5 mg PO BID@0800,1700 09/09/22 11/07/23 History Levothyroxine Sodium [Synthroid] 88 mcg PO DAILY@0600 09/09/22 11/07/23 History Magnesium 250 mg PO DAILY@0800 09/26/23 11/07/23 History Calcium Carbonate [Tums] 1,000 mg PO TID PRN tab 10/28/23 11/07/23 Rx Acetaminophen [Tylenol 8 Hour] 650 mg PO Q4H PRN 11/07/23 11/07/23 History Albuterol Sulfate [Ventolin HFA] 1 puff INHALATION RT-QID PRN 11/07/23 11/07/23 History Amiodarone [Cordarone] 200 mg PO BID@0800,1700 11/07/23 11/07/23 History Dapagliflozin Propanediol [Farxiga] 10 mg PO DAILY@0600 11/07/23 11/07/23 History Digoxin [Lanoxin] 125 mcg PO DAILY@0600 11/07/23 11/07/23 History Docusate [Colace] 100 mg PO BID@0800,1700 11/07/23 11/07/23 History Furosemide [Lasix] 60 mg PO BID@0600,1400 11/07/23 11/07/23 History INSULIN LISPRO (HumaLOG) [humaLOG] See Protocol SQ ACHS 11/07/23 11/07/23 History Ipratropium-Albuterol Nebulize 3 ml INHALATION RT-Q6H 11/07/23 11/07/23 History [Duoneb 0.5 mg-3 mg/3 ml Soln] Magnesium Hydroxide [Milk of 7,200 mg PO DAILY PRN 11/07/23 11/07/23 History Magnesia Concentrate] Melatonin 5 mg PO HS@209911/07/23 11/07/23 History Metoprolol Tartrate [Lopressor] 150 mg PO BID@0800,2100 11/07/23 11/07/23 History Na Phos,M-B/Na Phos,Di-Ba [Fleet 133 ml RECTAL DAILY PRN 11/07/23 11/07/23 History Adult] Potassium Chloride ER [K-Dur 20] 20 meq PO DAILY@1700 11/07/23 11/07/23 History bisacodyL [Dulcolax] 10 mg RECTAL DAILY PRN 11/07/23 11/07/23 History guaiFENesin [Mucinex] 600 mg PO BID@0800,2100 11/07/23 11/07/23 History polyethylene glycoL 3350 [Miralax] 17 gm PO DAILY@0800 11/07/23 11/07/23 History Nystatin 100,000 Unit/gm Powd 1 applic TOPICAL BID each 11/08/23 Rx [Mycostatin Powder] Allergies Allergy/AdvReac Type Severity Reaction Status Date / Time Penicillins Allergy Rash/Hives Verified 11/07/23 12:04 @ Allergy testing site strawberry Allergy Rash/Hives Verified 11/07/23 12:04 all over body tramadol Allergy Unknown Verified 11/07/23 12:04 Physical Exam Vitals: Vital Signs Temp Pulse Pulse Resp BP BP Pulse Ox 11/08/23 05:00 97.9 F 68 14 90/58 99 11/08/23 02:00 64 16 11/08/23 00:00 98.3 F 64 16 95/59 99 11/07/23 21:44 66 16 11/07/23 21:38 97.7 F 66 16 88/53 98 11/07/23 20:38 97.6 F 78 20 104/86 98 11/07/23 19:43 68 18 122/78 99 11/07/23 17:00 75 20 109/66 99 11/07/23 09:39 98.4 F 70 18 102/63 99 Intake and Output 11/07/23 11/08/23 11/08/23 22:59 06:59 14:59 Output Total 200 Balance -200 Output: Urine 200 Other: Voiding Method External Catheter External Catheter Weight 118.841 kg 121 kg - Exam PHYSICAL EXAM: VITAL SIGNS: [As above] GENERAL: Alert and oriented 3, sitting up in bed, no acute distress. HEENT: Normocephalic, Conjunctivae normal. NECK: Supple, No JVD. CARDIOVASCULAR: S1, S2. irregular. Mild Tachycardia. Systolic murmur. RESPIRATION: Unlabored, equal air entry, essentially clear, bilateral bases diminished ABDOMEN: Soft, nondistended, nontender. +BS LEGS: Mild soft chronic bilateral lower extremity edema,. NERVOUS SYSTEM: No focal deficits. Cranial nerves II through XII grossly int act. Skin: Warm and dry, stage I sacral wound Results CBC & Chem 7: 11/08/23 07:18 11/08/23 07:18 Labs: Abnormal Lab Results - Last 24 Hours (Table) 11/07/23 11/07/23 11/07/23 Range/Units 10:06 10:06 10:06 RDW (11.5-15.5) % PT 12.8 H (10.0-12.5) sec INR 1.2 H (<1.2) APTT 33.0 H (22.0-30.0) sec Sodium 133 L (137-145) mmol/L Chloride 91 L (98-107) mmol/L BUN 71 H (7-17) mg/dL Creatinine 1.09 H (0.52-1.04) mg/dL Total Bilirubin 2.3 H (0.2-1.3) mg/dL AST 95 H (14-36) U/L ALT 118 H (4-34) U/L Troponin I 0.118 H* (0.000-0.034) ng/mL Total Protein 6.1 L (6.3-8.2) g/dL 11/07/23 11/07/23 11/08/23 Range/Units 14:17 17:16 07:18 RDW 16.1 H (11.5-15.5) % PT (10.0-12.5) sec INR (<1.2) APTT (22.0-30.0) sec Sodium (137-145) mmol/L Chloride (98-107) mmol/L BUN (7-17) mg/dL Creatinine (0.52-1.04) mg/dL Total Bilirubin (0.2-1.3) mg/dL AST (14-36) U/L ALT (4-34) U/L Troponin I 0.110 H* 0.110 H* (0.000-0.034) ng/mL Total Protein (6.3-8.2) g/dL 11/08/23 Range/Units 07:18 RDW (11.5-15.5) % PT (10.0-12.5) sec INR (<1.2) APTT (22.0-30.0) sec Sodium 132 L (137-145) mmol/L Chloride 96 L (98-107) mmol/L BUN 64 H (7-17) mg/dL Creatinine 1.07 H (0.52-1.04) mg/dL Total Bilirubin (0.2-1.3) mg/dL AST (14-36) U/L ALT (4-34) U/L Troponin I (0.000-0.034) ng/mL Total Protein (6.3-8.2) g/dL Thrombosis Risk Factor Assmnt - Choose All That Apply Any of the Below Risk Factors Present?: Yes Each Factor Represents 1 point: Heart failure (<1month), Medical pt on bed rest, Obesity (BMI >25), Swollen legs (current) Other Risk Factors: Yes Each Risk Factor Represents 2 Points: Patient confined to bed Each Risk Factor Represents 3 Points: Age 75 years or older, History of DVT/PE Other congenital or acquired thrombophilia - If yes, enter type in comment: No Thrombosis Risk Factor Assessment Total Risk Factor Score: 12 Thrombosis Risk Factor Assessment Level: High Risk Assessment and Plan Assessment: Chronic Atrial fibrillation with rapid ventricular rate Chronic CHF exacerbation, systolic dysfunction, EF 45-50%. Elevated troponins History of Bilateral pleural effusions status post bilateral thoracentesis,transudative;Cytology negative for malignancy, on prior hospitalization. Chronic renal failure, stage III Pulmonary embolism bilaterally status post EKOS, 03/14/2022 Pulmonary hypertension Moderate mitral and tricuspid regurgitation Hypothyroidism Hypertension, history of Hyperlipidemia Osteoarthritis with history right knee placement in July 2022. Morbid obesity, BMI 46 Anxiety Plan: Continue on current medication regime ,monitoring and symptomatic treat ment. Evaluated by cardiology, antiarrhythmics adjusted ,patient is scheduled for cardiac catheterization tomorrow. The impression and plan of care has been dictated as directed. : I performed a history and examination of this patient, discussed the same with the dictator. I agree with the dictator's note ,documented as a scribe. Any additional findings or plans will be noted.
[2023-11-08] MEDS ORDERED: NITROGLYCERIN SL TABS 0.4 MG TAB SUBLINGUAL PRN ×2 (11:36→13:57)
[2023-11-08] MEDS ORDERED: ALPRAZolam 0.5 MG TAB PO PRN (13:57)
--- NOTE | 2023-11-08 14:04 | P.CRDCN ---
History of Present Illness History of present illness: HISTORY OF PRESENT ILLNESS: This is a 73-year-old female with a past medical history significant for pulmonary embolism, paroxysmal atrial fibrillation, hypertension, hyperlipidemia, congestive heart failure, and pulmonary hypertension. Patient follows in the office with Dr. Sylvester. We have been asked to see the patient in consultation for congestive heart failure. Patient examined at the bedside. Patient reports having lower back pain on the left side. She denies any chest pain or pressure. She denies any shortness of breath. * EKG reveals atrial fibrillation with ST depression noted in V3V6 and T-wave inversions inferiorly * Chest xray limited inspiration with basilar atelectasis favored over pneumonia. * Laboratory data: BUN 71. Creatinine 1.09. ProBNP 13,800. Troponin 0.118. 0.110. 0.110. * Current home cardiac medications include digoxin 125 g daily, Lipitor 80 mg at night, amiodarone 200mg twice a day, Eliquis 5 mg twice a day, Lasix 60 mg twice a day, metoprolol tartrate 150 mg twice a day * Most recent echocardiogram obtained in September 2023 revealed ejection fraction 45-50% REVIEW OF SYSTEMS: At the time of my exam: CONSTITUTIONAL: Denies fever or chills. HEENT: Denies blurred vision, vision changes, or eye pain. Denies hemoptysis CARDIOVASCULAR: Denies chest pain. Denies orthopnea. Denies PND. Denies palpitations RESPIRATORY: Denies shortness of breath. GASTROINTESTINAL: Denies abdominal pain. Denies nausea or vomiting. HEMATOLOGIC: Denies bleeding disorders. GENITOURINARY: Denies any blood in urine. SKIN: Denies pruitis. Denies rash. PHYSICAL EXAM: VITAL SIGNS: Reviewed. GENERAL: Well-developed in no acute distress. HEENT: Head is normocephalic. Pupils are equal, round. Sclerae anicteric. Mucous membranes of the mouth are moist. Neck supple. No JVD or thyromegaly LUNGS: Respirations even and unlabored. Lungs essentially clear to auscultation bilaterally. HEART: Irregular rate and rhythm. S1 and S2 heard. ABDOMEN: Soft. Nondistended. Nontender. EXTREMITIES: Normal range of motion. No clubbing or cyanosis. Peripheral pulses intact. No lower extremity edema NEUROLOGIC: Awake and alert. Oriented x 3. ASSESSMENT: Shortness of breath Left lower back pain Non-STEMI Abnormal EKG with ST depression in V3V6 and T-wave inversions inferiorly, appears new from previous EKG in the office in 2021 Chronic heart failure with mildly reduced EF, 45-50%, appears euvolemic, despite elevated BNP Recent hospitalization for acute hypoxic respiratory failure requiring mechanical ventilation History of right pleural effusion, status post thoracentesis on 10/08/2023 with removal of 1200 mL History of left pleural effusion, status post thoracentesis on 10/09/2023 with removal of 550 mL Paroxysmal atrial fibrillation History of pulmonary embolism with EKOS, February 2022 Hypertension Hyperlipidemia Hypothyroidism Pulmonary hypertension Morbid obesity: BMI 44.4 PLAN: Decrease amiodarone to 200 mg daily Hold Eliflaco tonsamantha and tomorrow morning Patient to undergo cardiac catheterization tomorrow with Dr. Sylvester Continue telemetry monitoring Further recommendations pending patient's course Nurse practitioner note has been reviewed by physician. Signing provider agrees with the documented findings, assessment, and plan of care. Past Medical History Past Medical History: Atrial Fibrillation, Hyperlipidemia, Hypertension, Osteoarthritis (OA), Pulmonary Embolus (PE), Thyroid Disorder Additional Past Medical History / Comment(s): PE bilateral with EKOS 02/2022 History of Any Multi-Drug Resistant Organisms: None Reported Past Surgical History: Cholecystectomy, Hysterectomy Additional Past Surgical History / Comment(s): Pt states she had a rt hip replacement 20 years ago, right knee replacement jul 2022 Past Anesthesia/Blood Transfusion Reactions: No Reported Reaction Past Psychological History: No Psychological Hx Reported Smoking Status: Never smoker Past Alcohol Use History: None Reported Past Drug Use History: None Reported - Past Family History Father Family Medical History: AICD/Pacemaker Additional Family Medical History / Comment(s): cabg at 84 Mother Additional Family Medical History / Comment(s): non hodgkins lymphoma Medications and Allergies Home Medications Medication Instructions Recorded Confirmed Type Atorvastatin [Lipitor] 80 mg PO HS@2100 02/25/22 11/07/23 History Apixaban [Eliquis] 5 mg PO BID@0800,1700 09/09/22 11/07/23 History Levothyroxine Sodium [Synthroid] 88 mcg PO DAILY@0600 09/09/22 11/07/23 History Magnesium 250 mg PO DAILY@0800 09/26/23 11/07/23 History Calcium Carbonate [Tums] 1,000 mg PO TID PRN tab 10/28/23 11/07/23 Rx Acetaminophen [Tylenol 8 Hour] 650 mg PO Q4H PRN 11/07/23 11/07/23 History Albuterol Sulfate [Ventolin HFA] 1 puff INHALATION RT-QID PRN 11/07/23 11/07/23 History Amiodarone [Cordarone] 200 mg PO BID@0800,1700 11/07/23 11/07/23 History Dapagliflozin Propanediol [Farxiga] 10 mg PO DAILY@0600 11/07/23 11/07/23 History Digoxin [Lanoxin] 125 mcg PO DAILY@0600 11/07/23 11/07/23 History Docusate [Colace] 100 mg PO BID@0800,1700 11/07/23 11/07/23 History Furosemide [Lasix] 60 mg PO BID@0600,1400 11/07/23 11/07/23 History INSULIN LISPRO (HumaLOG) [humaLOG] See Protocol SQ ACHS 11/07/23 11/07/23 History Ipratropium-Albuterol Nebulize 3 ml INHALATION RT-Q6H 11/07/23 11/07/23 History [Duoneb 0.5 mg-3 mg/3 ml Soln] Magnesium Hydroxide [Milk of 7,200 mg PO DAILY PRN 11/07/23 11/07/23 History Magnesia Concentrate] Melatonin 5 mg PO HS@2100 11/07/23 11/07/23 History Metoprolol Tartrate [Lopressor] 150 mg PO BID@0800,2100 11/07/23 11/07/23 History Na Phos,M-B/Na Phos,Di-Ba [Fleet 133 ml RECTAL DAILY PRN 11/07/23 11/07/23 History Adult] Potassium Chloride ER [K-Dur 20] 20 meq PO DAILY@1700 11/07/23 11/07/23 History bisacodyL [Dulcolax] 10 mg RECTAL DAILY PRN 11/07/23 11/07/23 History guaiFENesin [Mucinex] 600 mg PO BID@0800,2100 11/07/23 11/07/23 History polyethylene glycoL 3350 [Miralax] 17 gm PO DAILY@0800 11/07/23 11/07/23 History Nystatin 100,000 Unit/gm Powd 1 applic TOPICAL BID each 11/08/23 Rx [Mycostatin Powder] Allergies Allergy/AdvReac Type Severity Reaction Status Date / Time Penicillins Allergy Rash/Hives Verified 11/07/23 12:04 @ Allergy testing site strawberry Allergy Rash/Hives Verified 11/07/23 12:04 all over body tramadol Allergy Unknown Verified 11/07/23 12:04 Physical Exam Vitals: Vital Signs Temp Pulse Pulse Resp BP BP Pulse Ox 11/08/23 05:00 97.9 F 68 14 90/58 99 11/08/23 02:00 64 16 11/08/23 00:00 98.3 F 64 16 95/59 99 11/07/23 21:44 66 16 11/07/23 21:38 97.7 F 66 16 88/53 98 11/07/23 20:38 97.6 F 78 20 104/86 98 11/07/23 19:43 68 18 122/78 99 11/07/23 17:00 75 20 109/66 99 11/07/23 09:39 98.4 F 70 18 102/63 99 Intake and Output 11/07/23 11/08/23 11/08/23 22:59 06:59 14:59 Output Total 200 Balance -200 Output: Urine 200 Other: Voiding Method External Catheter External Catheter Weight 118.841 kg 121 kg Results 11/08/23 07:18 11/08/23 07:18 Cardiac Enzymes 11/07/23 11/07/23 11/07/23 Range/Units 10:06 10:06 14:17 AST 95 H (14-36) U/L Troponin I 0.118 H* 0.110 H* (0.000-0.034) ng/mL 11/07/23 Range/Units 17:16 AST (14-36) U/L Troponin I 0.110 H* (0.000-0.034) ng/mL Coagulation 11/07/23 Range/Units 10:06 PT 12.8 H (10.0-12.5) sec APTT 33.0 H (22.0-30.0) sec CBC 11/07/23 11/08/23 Range/Units 10:06 07:18 WBC 6.4 6.8 (3.8-10.6) k/uL RBC 4.56 4.59 (3.80-5.40) m/uL Hgb 14.3 14.6 (11.4-16.0) gm/dL Hct 43.9 44.9 (34.0-46.0) % Plt Count 299 240 (150-450) k/uL Comprehensive Metabolic Panel 11/07/23 Range/Units 10:06 Sodium 133 L (137-145) mmol/L Potassium 4.3 (3.5-5.1) mmol/L Chloride 91 L (98-107) mmol/L Carbon Dioxide 30 (22-30) mmol/L BUN 71 H (7-17) mg/dL Creatinine 1.09 H (0.52-1.04) mg/dL Glucose 89 (74-99) mg/dL Calcium 8.8 (8.4-10.2) mg/dL AST 95 H (14-36) U/L ALT 118 H (4-34) U/L Alkaline Phosphatase 112 (38-126) U/L Total Protein 6.1 L (6.3-8.2) g/dL Albumin 3.5 (3.5-5.0) g/dL Current Medications Generic Name Dose Route Start Last Admin Trade Name Freq PRN Reason Stop Dose Admin Albuterol Sulfate 2.5 mg 11/07/23 13:05 Albuterol Nebulized 2.5 Mg/3 Ml INHALATION RT-QID PRN Shortness Of Breath Albuterol/Ipratropium 3 ml 11/07/23 14:00 11/08/23 00:53 Ipratropium-Albuterol 3 Ml Neb INHALATION Not Given RT-Q6H COUNTS INCLUDE 234 BEDS AT THE [facility] Amiodarone HCl 200 mg 11/07/23 17:00 11/07/23 19:38 Amiodarone 200 Mg Tab PO 200 mg BID@0800,1700 ANNA Administration Apixaban 5 mg 11/07/23 17:00 11/07/23 19:37 Apixaban 5 Mg Tab PO 5 mg BID@0800,1700 COUNTS INCLUDE 234 BEDS AT THE [facility] Administration Protocol Atorvastatin Calcium 80 mg 11/07/23 21:00 11/07/23 21:42 Atorvastatin 80 Mg Tab PO 80 mg HS@2100 ANNA Administration Bisacodyl 10 mg 11/07/23 13:05 Bisacodyl 10 Mg Supp RECTAL DAILY PRN Constipation Dextrose/Water 25 ml 11/07/23 13:07 Dextrose 50% Syringe 50 Ml IVP PER PROTOCOL PRN Hypoglycemia Protocol Dextrose/Water 50 ml 11/07/23 13:07 Dextrose 50% Syringe 50 Ml IVP PER PROTOCOL PRN Hypoglycemia Protocol Digoxin 125 mcg 11/08/23 06:00 11/08/23 06:50 Digoxin 125 Mcg Tab PO 125 mcg DAILY@0600 COUNTS INCLUDE 234 BEDS AT THE [facility] Administration Docusate Sodium 100 mg 11/07/23 17:00 11/07/23 19:38 Docusate 100 Mg Cap PO 100 mg BID@0800,1700 COUNTS INCLUDE 234 BEDS AT THE [facility] Administration Guaifenesin 600 mg 11/07/23 21:00 11/07/23 21:42 Guaifenesin 600 Mg Tablet.Er PO 600 mg BID@0800,2100 COUNTS INCLUDE 234 BEDS AT THE [facility] Administration Insulin Aspart 0 unit 11/07/23 17:30 11/08/23 05:45 Insulin Aspart (Novolog) 100 Unit/Ml Vial SQ Not Given AC-TID COUNTS INCLUDE 234 BEDS AT THE [facility] Protocol Levothyroxine Sodium 88 mcg 11/08/23 06:00 11/08/23 06:50 Levothyroxine 88 Mcg Tab PO 88 mcg DAILY@0600 COUNTS INCLUDE 234 BEDS AT THE [facility] Administration Magnesium Hydroxide 2,400 mg 11/07/23 13:05 Magnesium Hydroxide 2,400 Mg/30 Ml Cup PO DAILY PRN Constipation Magnesium Oxide 400 mg 11/08/23 08:00 Magnesium Oxide 400 Mg Tab PO DAILY@0800 COUNTS INCLUDE 234 BEDS AT THE [facility] Melatonin 5 mg 11/07/23 21:00 11/07/23 21:42 Melatonin 5 Mg Tablet PO 5 mg HS@2100 COUNTS INCLUDE 234 BEDS AT THE [facility] Administration Metoprolol Tartrate 150 mg 11/07/23 21:00 11/07/23 21:43 Metoprolol Tartrate 50 Mg Tab PO Not Given BID@0800,2100 COUNTS INCLUDE 234 BEDS AT THE [facility] Naloxone HCl 0.2 mg 11/07/23 13:04 Naloxone 0.4 Mg/Ml 1 Ml Vial IV Q2M PRN Opioid Reversal Potassium Chloride 20 meq 11/07/23 17:00 11/07/23 19:39 Potassium Chloride Er 20 Meq Tab.Er PO 20 meq DAILY@1700 COUNTS INCLUDE 234 BEDS AT THE [facility] Administration Intake and Output 11/07/23 11/08/23 11/08/23 22:59 06:59 14:59 Output Total 200 Balance -200 Output: Urine 200 Other: Voiding Method External Catheter External Catheter Weight 118.841 kg 121 kg 11/08/23 07:18 11/07/23 10:06
[2023-11-08] MEDS: NYSTATIN 100,000 UNIT/GM POWD 15 GM TOPICAL SCH ×2 (15:08→20:34)
[2023-11-08 16:15] LABS: Glucose,Whole Blood 115 mg/dL (70-110)
[2023-11-08 19:38] LABS: Glucose,Whole Blood 122 mg/dL (70-110)
[2023-11-08] MEDS ORDERED: ACETAMINOPHEN TAB 325 MG TAB PO PRN (20:05)
[2023-11-08] MEDS: MELATONIN 5 MG TABLET PO SCH (20:32)
[2023-11-08] MEDS: ATORVASTATIN 80 MG TAB PO SCH (20:32)
[2023-11-08] MEDS: HYDROcodone/APAP 5-325MG 1 EACH TAB PO PRN (20:46)
[2023-11-09] MEDS: SODIUM CHLORIDE 0.9% 1,000 ML in EMPTY BAG 1 BAG IV SCH ×3 (00:09→15:55)
[2023-11-09] MEDS: IPRATROPIUM-ALBUTEROL 3 ML NEB INHALATION SCH ×4 (04:14→20:28)
[2023-11-09] MEDS ORDERED: ATORVASTATIN 80 MG TAB PO ONE (05:00)
[2023-11-09] MEDS ORDERED: ASPIRIN 325 MG TAB PO ONE (05:00)
[2023-11-09] MEDS: LEVOTHYROXINE 88 MCG TAB PO SCH (05:45)
[2023-11-09] MEDS: MAGNESIUM OXIDE 400 MG TAB PO SCH (05:45)
[2023-11-09] MEDS: guaiFENesin 600 MG TABLET.ER PO SCH ×2 (05:45→20:01)
[2023-11-09] MEDS: DIGOXIN 125 MCG TAB PO SCH (05:46)
[2023-11-09] MEDS: INSULIN ASPART (NovoLOG) 100 UNIT/ML VIAL SQ SCH ×3 (05:51→16:38)
[2023-11-09 06:02] LABS: Glucose,Whole Blood 115 mg/dL (70-110)
[2023-11-09] MEDS ORDERED: HEPARIN SODIUM,PORCINE 10,000 UNIT in SODIUM CHLORIDE 0.9% 1,000 ML IRRIGATION PRN (07:00)
[2023-11-09] MEDS ORDERED: HEPARIN SODIUM,PORCINE (1 ML) 2,500 UNIT in SODIUM CHLORIDE 0.9% 250 ML IRRIGATION PRN (07:00)
[2023-11-09 08:28] LABS: African American GFR (CKD) 55 (>60 ml/min/1.73 sqM); Anion Gap 7 mmol/L; Blood Urea Nitrogen 57 mg/dL (7-17); Calcium 8.6 mg/dL (8.4-10.2); Carbon Dioxide 35 mmol/L (22-30); Chloride 93 mmol/L (98-107); Glucose 88 mg/dL (74-99); Non-African American GFR(CKD) 48 (>60 ml/min/1.73 sqM); Potassium 3.6 mmol/L (3.5-5.1); Sodium 135 mmol/L (137-145)
[2023-11-09] MEDS ORDERED: FUROSEMIDE 10 MG/ML 4 ML VIAL IV STA (09:10)
--- NOTE | 2023-11-09 09:27 | P.PN ---
Subjective This is a pleasant 73-year-old female recently discharged on 10/28/2023 to [facility] subacute rehab after a lengthy inpatient hospitalization with atrial fibrillation, CHF, bilateral pleural effusions and multiple other medical issues. For specific details please refer to EHR. Patient was transported to the ER with complaints of shortness of breath. Reports she had a stressful morning, while attempting to persuade staff to order nystatin powder instead of cream for her sore bottom/stage I sacral wound. Apparently she had a verbal altercation, developed shortness of breath afterwards. Reports she has been spending too much time sitting in her wheelchair.Denies chest pain, palpitations. Denies lightheadedness dizziness or focal deficits. Denies nausea vomiting or diarrhea. Denies abdominal pain. Denies syncope. Troponin 0.118, 0.110 0.110. EKG reporting atrial fibrillation, nonspecific ST segment and T-wave changes. Chest x-ray reporting limited inspiration with basilar atelectasis favored over pneumonia. Afebrile, normal WBC, maintaining O2 sats of 99% on room air. Respiratory rate 14-16. Received Lasix IV push in the ER, potassium level up to 5, KDur placed on hold. 11/09/2023 patient presents 2 days ago from [facility] for worsening dyspnea found to have non-STEMI with elevated troponin and no EKG changes and acute on chronic systolic CHF with ejection fraction was low 45-50% Patient already has been evaluated by activity coordinator and plan for her to go for cardiac cath today. Patient is still tachypneic and feel anxious while she is sitting in bed. On exam she has evidence of fluid overload with bilateral basilic dictation and mild bilateral pitting leg edema. Currently patient awake alert sitting comfortable in bed, denies any chest pain, mildly tachypneic while at rest. She denies abdominal pain or vomiting. She states last time was able to walk was 4-5 days She is hemodynamically stable. Blood pressure is on the low side wall she is at rest since admission, currently 99/60, heart rate 55 Chest x-ray showing bilateral basal atelectasis per radiologist, I reviewed chest x-ray myself and I feel it is more mild vascular congestion. Patient uses one-time dose of IV Lasix 40 mg Review of systems CONSTITUTIONAL: No fever, no malaise, no fatigue. HEENT: No recent visual problems or hearing problems. Denied any sore throat. CARDIOVASCULAR: No orthopnea, PND, no palpitations, no syncope. PULMONARY: no cough, no hemoptysis. GASTROINTESTINAL: No diarrhea, no nausea, no vomiting, no abdominal pain. Normoactive bowel sounds. NEUROLOGICAL: No headaches, no weakness, no numbness. Active Medications Generic Name Dose Route Start Last Admin Trade Name Freq PRN Reason Stop Dose Admin Acetaminophen 650 mg 11/08/23 20:05 Acetaminophen Tab 325 Mg Tab PO Q4HR PRN Fever and/ or Pain Hydrocodone Bitart/Acetaminophen 1 each 11/08/23 20:15 11/08/23 20:46 Hydrocodone/Apap 5-325mg 1 Each Tab PO 1 each Q6HR PRN Administration Pain Albuterol Sulfate 2.5 mg 11/07/23 13:05 Albuterol Nebulized 2.5 Mg/3 Ml INHALATION RT-QID PRN Shortness Of Breath Albuterol/Ipratropium 3 ml 11/07/23 14:00 11/09/23 08:13 Ipratropium-Albuterol 3 Ml Neb INHALATION Not Given RT-Q6H [facility] Alprazolam 0.25 mg 11/08/23 13:57 Alprazolam 0.25 Mg Tab PO Q6HR PRN Mild Anxiety Alprazolam 0.5 mg 11/08/23 13:57 Alprazolam 0.5 Mg Tab PO Q6HR PRN Moderate Anxiety Amiodarone HCl 200 mg 11/09/23 09:00 Amiodarone 200 Mg Tab PO DAILY [facility] Apixaban 5 mg 11/07/23 17:00 11/08/23 13:11 Apixaban 5 Mg Tab PO Not Given BID@0800,1700 [facility] Protocol Atorvastatin Calcium 80 mg 11/07/23 21:00 11/08/23 20:32 Atorvastatin 80 Mg Tab PO 80 mg HS@2100 [facility] Administration Bisacodyl 10 mg 11/07/23 13:05 Bisacodyl 10 Mg Supp RECTAL DAILY PRN Constipation Dextrose/Water 25 ml 11/07/23 13:07 Dextrose 50% Syringe 50 Ml IVP PER PROTOCOL PRN Hypoglycemia Protocol Dextrose/Water 50 ml 11/07/23 13:07 Dextrose 50% Syringe 50 Ml IVP PER PROTOCOL PRN Hypoglycemia Protocol Digoxin 125 mcg 11/08/23 06:00 11/09/23 05:46 Digoxin 125 Mcg Tab PO 125 mcg DAILY@0600 [facility] Administration Docusate Sodium 100 mg 11/07/23 17:00 11/08/23 15:07 Docusate 100 Mg Cap PO Not Given BID@0800,1700 [facility] Guaifenesin 600 mg 11/07/23 21:00 11/09/23 05:45 Guaifenesin 600 Mg Tablet.Er PO 600 mg BID@0800,2099 [facility] Administration Heparin Sodium (Porcine) 10, 1,001 mls @ 999 mls/hr 11/09/23 07:00 000 unit/ Sodium Chloride IRRIGATION 11/09/23 23:00 ONCE PRN INTRA-OP Heparin Sodium (Porcine) 2,500 250.5 mls @ 250 mls/hr 11/09/23 07:00 unit/ Sodium Chloride IRRIGATION 11/09/23 23:00 ONCE PRN INTRA-OP Sodium Chloride 1,000 ml/ IV 1,000 mls @ 121 mls/hr 11/08/23 23:00 11/09/23 00:09 Solution IV 121 mls/hr .Q8H16M ANNA Administration 1 ML/KG/HR Insulin Aspart 0 unit 11/07/23 17:30 11/09/23 05:51 Insulin Aspart (Novolog) 100 Unit/Ml Vial SQ Not Given AC-TID [facility] Protocol Levothyroxine Sodium 88 mcg 11/08/23 06:00 11/09/23 05:45 Levothyroxine 88 Mcg Tab PO 88 mcg DAILY@0600 [facility] Administration Magnesium Hydroxide 2,400 mg 11/07/23 13:05 Magnesium Hydroxide 2,400 Mg/30 Ml Cup PO DAILY PRN Constipation Magnesium Oxide 400 mg 11/08/23 08:00 11/09/23 05:45 Magnesium Oxide 400 Mg Tab PO 400 mg DAILY@0800 [facility] Administration Melatonin 5 mg 11/07/23 21:00 11/08/23 20:32 Melatonin 5 Mg Tablet PO 5 mg HS@2100 [facility] Administration Metoprolol Tartrate 150 mg 11/07/23 21:00 11/08/23 20:34 Metoprolol Tartrate 50 Mg Tab PO Not Given BID@0800,2100 [facility] Naloxone HCl 0.2 mg 11/07/23 13:04 Naloxone 0.4 Mg/Ml 1 Ml Vial IV Q2M PRN Opioid Reversal Nitroglycerin 0.4 mg 11/08/23 11:36 Nitroglycerin Sl Tabs 0.4 Mg Tab SUBLINGUAL Q5M PRN Chest Pain Nitroglycerin 0.4 mg 11/08/23 13:57 Nitroglycerin Sl Tabs 0.4 Mg Tab SUBLINGUAL Q5M PRN Chest Pain Nystatin 1 applic 11/08/23 09:00 11/08/23 20:34 Nystatin 100,000 Unit/Gm Powd 15 Gm TOPICAL 1 applic BID ANNA Administration Protocol Objective - Vital Signs Vital signs: Vital Signs Temp 97.7 F 11/09/23 04:00 Pulse 55 L 11/09/23 04:00 Resp 16 11/09/23 04:00 BP 99/60 11/09/23 04:00 Pulse Ox 97 11/09/23 04:00 FiO2 Intake & Output 11/08/23 11/09/23 11/09/23 18:59 06:59 18:59 Intake Total 100 Output Total 250 250 Balance -150 -250 Weight 121 kg Intake: Oral 100 Output: Urine 250 250 Other: Voiding Method External Catheter External Catheter # Bowel Movements 1 - Exam GENERAL: The patient is alert and oriented x3, not in any acute distress. Well developed, well nourished. HEENT: Pupils are round and equally reacting to light. EOMI. No scleral icterus. No conjunctival pallor. Normocephalic, atraumatic. No pharyngeal erythema. No t hyromegaly. CARDIOVASCULAR: S1 and S2 present. No murmurs, rubs, or gallops. -PULMONARY: Chest is clear to auscultation, no wheezing , bilateral basal crackles. ABDOMEN: Soft, nontender, nondistended, normoactive bowel sounds. No palpable organomegaly. MUSCULOSKELETAL: No joint swelling or deformity. EXTREMITIES: No cyanosis, clubbing, or pedal edema. NEUROLOGICAL: Gross neurological examination did not reveal any focal deficits. SKIN: No rashes. no petechiae. - Labs CBC & Chem 7: 11/08/23 07:18 11/09/23 06:58 Labs: Abnormal Lab Results - Last 24 Hours (Table) 11/08/23 11/08/23 11/08/23 Range/Units 07:55 11:57 16:13 Sodium (137-145) mmol/L Chloride (98-107) mmol/L Carbon Dioxide (22-30) mmol/L BUN (7-17) mg/dL Creatinine (0.52-1.04) mg/dL POC Glucose (mg/dL) 115 H (70-110) mg/dL Hemoglobin A1c 6.2 H (<=6.0) % Troponin I 0.106 H* (0.000-0.034) ng/mL 11/08/23 11/09/23 11/09/23 Range/Units 19:24 06:01 06:58 Sodium 135 L (137-145) mmol/L Chloride 93 L (98-107) mmol/L Carbon Dioxide 35 H (22-30) mmol/L BUN 57 H (7-17) mg/dL Creatinine 1.13 H (0.52-1.04) mg/dL POC Glucose (mg/dL) 122 H 115 H (70-110) mg/dL Hemoglobin A1c (<=6.0) % Troponin I (0.000-0.034) ng/mL Assessment and Plan Assessment: None STEMI Chronic systolic CHF with ejection fraction 45-50% Chronic low back pain Paroxysmal atrial fibrillation on a blood thinner at home. Pulmonary hypertension Obesity with BMI of 44.5. Chronic kidney disease stage III with mild acute kidney injury Borderline low normal blood pressure. Plan: Continue with heparin drip/Eliquis. Plan for cardiac cath today with cartilage team Preoperative evaluation: Patient is at some risk from the procedure but there is no contraindication Give Lasix 40 mg 1 Customizer team on the case Labs and medication were reviewed.. Continue same treatment. Continue with symptomatic treatment. Resume home medication. Monitor labs and vitals. DVT and GI prophylaxis. Further recommendations as per clinical course of the patient DVT prophylaxis: Eliquis GI Prophylaxis: Pepcid Prognosis is guarded
[2023-11-09] MEDS ORDERED: LIDOCAINE 1% INJ 10MG/ML (20 ML MDV) ONE (10:38)
[2023-11-09] MEDS ORDERED: VERAPAMIL 2.5 MG/ML 2 ML AMP ONE (10:38)
[2023-11-09] MEDS ORDERED: IV FLUID CONTINUATION 1,000 ML IV ONE (11:00)
[2023-11-09] MEDS: DOCUSATE 100 MG CAP PO SCH ×2 (11:22→16:38)
[2023-11-09] MEDS ORDERED: fentaNYL (PF) 50 MCG/ML 2 ML AMP ONE (11:32)
[2023-11-09] MEDS ORDERED: LIDOCAINE 1% INJ 10MG/ML (20 ML MDV) SQ ONE (11:35)
[2023-11-09] MEDS ORDERED: VERAPAMIL SYRINGE (5 MG/10 ML) INTRAARTER ONE (11:38)
[2023-11-09] MEDS ORDERED: fentaNYL (PF) 50 MCG/ML 2 ML AMP IVP ONE (11:39)
[2023-11-09] MEDS ORDERED: HEPARIN SODIUM 1,000 UN/ML (10ML VL) ONE (11:39)
[2023-11-09] MEDS ORDERED: HEPARIN SODIUM 1,000 UN/ML (10ML VL) IVP ONE (11:41)
[2023-11-09] MEDS ORDERED: IOPAMIDOL-370 100ML BTL INJ ONE (11:45)
--- NOTE | 2023-11-09 12:10 | P.CARDCATH ---
Description of Procedure: PROCEDURES PERFORMED: Left heart catheterization, bilateral coronary angiography, ultrasound guided arterial access INDICATION: Non-STEMI CONSENT:I have discussed the risks, benefits and alternative therapies for the above-mentioned procedure and for both sedation/analgesia as well as necessary blood product administration, if indicated, as they pertain to this patient. The patient has indicated understanding and acceptance of the risks and procedures discussed. PROCEDURE: After the risks, benefits and alternatives of the above mentioned procedure explained in detail with the patient, informed consent was obtained. Patient was taken to the catheterization lab and prepped and draped in usual fashion. Ultrasound guidance was used to assess for arterial access. 1% lidocaine was used to anesthetize the right radial artery. A 6-Nigerian sheath was placed in the right radial artery using modified Seldinger technique and ul trasound guidance. Left coronary angiography was performed with a 5-Nigerian JL 3.5 catheter and right coronary angiography was performed with a 5-Nigerian AR2 catheter in various views. A 5-Nigerian AR2 catheter was inserted into the left ventricle and pressure measurements were obtained. The right radial sheath was removed and a TR band was placed with hemostasis achieved. The patient tolerated the procedure well. Patient was transported back to the post catheterization holding area in stable condition. Conscious Sedation: Patient was monitored under the direct supervision of myself for conscious sedation using Versed and fentanyl for a total duration of [] minutes HEMODYNAMICS: Aorta: 108/62 LV: 100/12, LVEDP 27 SELECTIVE CORONARY ARTERIOGRAPHY: LEFT MAIN: The left main is a large caliber vessel which bifurcates into the LAD and circumflex. There is no significant stenosis. LEFT ANTERIOR DESCENDING CORONARY ARTERY: LAD is a large caliber vessel which wraps around to the apex. There is no significant stenosis. LEFT CIRCUMFLEX CORONARY ARTERY: Left circumflex is a moderate caliber vessel without significant stenosis. RIGHT CORONARY ARTERY: The right coronary artery is a large caliber vessel which gives off a PDA and PLV branch and is the dominant vessel. There is no significant stenosis. FINAL IMPRESSION: 1. Normal coronary arteries as described above. 2. Elevated left sided filling pressures PLAN: 1. Aggressive risk factor modification per most recent ACC/AHA guidelines. 2. Increase diuretics. Consider cardioversion.
[2023-11-09] MEDS: HYDROcodone/APAP 5-325MG 1 EACH TAB PO PRN (14:50)
[2023-11-09] MEDS: AMIODARONE 200 MG TAB PO SCH (14:51)
[2023-11-09] MEDS: NYSTATIN 100,000 UNIT/GM POWD 15 GM TOPICAL SCH ×2 (14:52→20:02)
[2023-11-09] MEDS: METOPROLOL TARTRATE 50 MG TAB PO SCH ×2 (15:55→20:01)
[2023-11-09 16:10] LABS: Glucose,Whole Blood 93 mg/dL (70-110)
[2023-11-09] MEDS: APIXABAN 5 MG TAB PO SCH (17:09)
[2023-11-09 19:59] LABS: Glucose,Whole Blood 96 mg/dL (70-110)
[2023-11-09] MEDS: ATORVASTATIN 80 MG TAB PO SCH (20:01)
[2023-11-09] MEDS: MELATONIN 5 MG TABLET PO SCH (20:01)
[2023-11-10] MEDS: IPRATROPIUM-ALBUTEROL 3 ML NEB INHALATION SCH ×4 (00:25→20:47)
[2023-11-10 06:03] LABS: Glucose,Whole Blood 87 mg/dL (70-110)
[2023-11-10] MEDS: INSULIN ASPART (NovoLOG) 100 UNIT/ML VIAL SQ SCH ×3 (06:35→17:04)
[2023-11-10] MEDS: LEVOTHYROXINE 88 MCG TAB PO SCH (06:35)
--- NOTE | 2023-11-10 07:51 | P.PN ---
Subjective This is a pleasant 73-year-old female recently discharged on 10/28/2023 to [facility] subacute rehab after a lengthy inpatient hospitalization with atrial fibrillation, CHF, bilateral pleural effusions and multiple other medical issues. For specific details please refer to EHR. Patient was transported to the ER with complaints of shortness of breath. Reports she had a stressful morning, while attempting to persuade staff to order nystatin powder instead of cream for her sore bottom/stage I sacral wound. Apparently she had a verbal altercation, developed shortness of breath afterwards. Reports she has been spending too much time sitting in her wheelchair.Denies chest pain, palpitations. Denies lightheadedness dizziness or focal deficits. Denies nausea vomiting or diarrhea. Denies abdominal pain. Denies syncope. Troponin 0.118, 0.110 0.110. EKG reporting atrial fibrillation, nonspecific ST segment and T-wave changes. Chest x-ray reporting limited inspiration with basilar atelectasis favored over pneumonia. Afebrile, normal WBC, maintaining O2 sats of 99% on room air. Respiratory rate 14-16. Received Lasix IV push in the ER, potassium level up to 5, KDur placed on hold. 11/09/2023 patient presents 2 days ago from [facility] for worsening dyspnea found to have non-STEMI with elevated troponin and no EKG changes and acute on chronic systolic CHF with ejection fraction was low 45-50% Patient already has been evaluated by lime boiler and plan for her to go for cardiac cath today. Patient is still tachypneic and feel anxious while she is sitting in bed. On exam she has evidence of fluid overload with bilateral basilic dictation and mild bilateral pitting leg edema. Currently patient awake alert sitting comfortable in bed, denies any chest pain, mildly tachypneic while at rest. She denies abdominal pain or vomiting. She states last time was able to walk was 4-5 days She is hemodynamically stable. Blood pressure is on the low side wall she is at rest since admission, currently 99/60, heart rate 55 Chest x-ray showing bilateral basal atelectasis per radiologist, I reviewed chest x-ray myself and I feel it is more mild vascular congestion. Patient uses one-time dose of IV Lasix 40 mg 11/10/2023 Patient does not have chest pain today no dizziness. coronary arteries came back normal on cardiac cath She has mild basal crepitation SHE is breathing quietly and she is on room air. Blood pressure on the low side still 88/57 and later on 98/67, heart rate 53-63, Her metoprolol dose was lowered 2050 mg down to 50 mg twice a day while she remains on amiodarone and digoxin. We will keep monitoring today. Review of systems CONSTITUTIONAL: No fever, no malaise, no fatigue. HEENT: No recent visual problems or hearing problems. Denied any sore throat. CARDIOVASCULAR: No orthopnea, PND, no palpitations, no syncope. PULMONARY: No shortness of breath, no cough, no hemoptysis. GASTROINTESTINAL: No diarrhea, no nausea, no vomiting, no abdominal pain. Normoactive bowel sounds. Active Medications Generic Name Dose Route Start Last Admin Trade Name Freq PRN Reason Stop Dose Admin Acetaminophen 650 mg 11/08/23 20:05 Acetaminophen Tab 325 Mg Tab PO Q4HR PRN Fever and/ or Pain Hydrocodone Bitart/Acetaminophen 1 each 11/08/23 20:15 11/09/23 14:50 Hydrocodone/Apap 5-325mg 1 Each Tab PO 1 each Q6HR PRN Administration Pain Albuterol Sulfate 2.5 mg 11/07/23 13:05 Albuterol Nebulized 2.5 Mg/3 Ml INHALATION RT-QID PRN Shortness Of Breath Albuterol/Ipratropium 3 ml 11/07/23 14:00 11/10/23 00:25 Ipratropium-Albuterol 3 Ml Neb INHALATION Not Given RT-Q6H ANNA Alprazolam 0.25 mg 11/08/23 13:57 Alprazolam 0.25 Mg Tab PO Q6HR PRN Mild Anxiety Alprazolam 0.5 mg 11/08/23 13:57 Alprazolam 0.5 Mg Tab PO Q6HR PRN Moderate Anxiety Amiodarone HCl 200 mg 11/09/23 09:00 11/09/23 14:51 Amiodarone 200 Mg Tab PO 200 mg DAILY ANNA Administration Apixaban 5 mg 11/07/23 17:00 11/09/23 17:09 Apixaban 5 Mg Tab PO 5 mg BID@0800,1700 [facility] Administration Protocol Atorvastatin Calcium 80 mg 11/07/23 21:00 11/09/23 20:01 Atorvastatin 80 Mg Tab PO 80 mg HS@2100 [facility] Administration Bisacodyl 10 mg 11/07/23 13:05 Bisacodyl 10 Mg Supp RECTAL DAILY PRN Constipation Dextrose/Water 25 ml 11/07/23 13:07 Dextrose 50% Syringe 50 Ml IVP PER PROTOCOL PRN Hypoglycemia Protocol Dextrose/Water 50 ml 11/07/23 13:07 Dextrose 50% Syringe 50 Ml IVP PER PROTOCOL PRN Hypoglycemia Protocol Docusate Sodium 100 mg 11/07/23 17:00 11/09/23 16:38 Docusate 100 Mg Cap PO Not Given BID@0800,1700 [facility] Guaifenesin 600 mg 11/07/23 21:00 11/09/23 20:01 Guaifenesin 600 Mg Tablet.Er PO 600 mg BID@799,2099 [facility] Administration Insulin Aspart 0 unit 11/07/23 17:30 11/10/23 06:35 Insulin Aspart (Novolog) 100 Unit/Ml Vial SQ Not Given AC-TID [facility] Protocol Levothyroxine Sodium 88 mcg 11/08/23 06:00 11/10/23 06:35 Levothyroxine 88 Mcg Tab PO 88 mcg DAILY@0600 [facility] Administration Magnesium Hydroxide 2,400 mg 11/07/23 13:05 Magnesium Hydroxide 2,400 Mg/30 Ml Cup PO DAILY PRN Constipation Magnesium Oxide 400 mg 11/08/23 08:00 11/09/23 05:45 Magnesium Oxide 400 Mg Tab PO 400 mg DAILY@0800 [facility] Administration Melatonin 5 mg 11/07/23 21:00 11/09/23 20:01 Melatonin 5 Mg Tablet PO 5 mg HS@2100 [facility] Administration Metoprolol Tartrate 50 mg 11/09/23 21:00 11/09/23 20:01 Metoprolol Tartrate 50 Mg Tab PO 50 mg BID@0800,2099 [facility] Administration Naloxone HCl 0.2 mg 11/07/23 13:04 Naloxone 0.4 Mg/Ml 1 Ml Vial IV Q2M PRN Opioid Reversal Nitroglycerin 0.4 mg 11/08/23 11:36 Nitroglycerin Sl Tabs 0.4 Mg Tab SUBLINGUAL Q5M PRN Chest Pain Nitroglycerin 0.4 mg 11/08/23 13:57 Nitroglycerin Sl Tabs 0.4 Mg Tab SUBLINGUAL Q5M PRN Chest Pain Nystatin 1 applic 11/08/23 09:00 11/09/23 20:02 Nystatin 100,000 Unit/Gm Powd 15 Gm TOPICAL 1 applic BID ANNA Administration Protocol Objective - Vital Signs Vital signs: Vital Signs Temp 97.9 F 11/09/23 20:00 Pulse 63 11/10/23 04:00 Resp 18 11/10/23 04:00 BP 98/67 11/10/23 04:00 Pulse Ox 99 11/10/23 04:00 FiO2 Intake & Output 11/09/23 11/10/23 11/10/23 18:59 06:59 18:59 Intake Total 340 Output Total 550 Balance -210 Weight 99.8 kg Intake: IV 100 Oral 240 Output: Urine 550 Other: Voiding Method External Catheter External Catheter - Exam GENERAL: The patient is alert and oriented x3, not in any acute distress. Well developed, well nourished. HEENT: Pupils are round and equally reacting to light. EOMI. No scleral icterus. No conjunctival pallor. Normocephalic, atraumatic. No pharyngeal erythema. No thyromegaly. CARDIOVASCULAR: S1 and S2 present. No murmurs, rubs, or gallops. -PULMONARY: Chest is clear to auscultation, no wheezing , bilateral basal crackles. ABDOMEN: Soft, nontender, nondistended, normoactive bowel sounds. No palpable organomegaly. MUSCULOSKELETAL: No joint swelling or deformity. EXTREMITIES: No cyanosis, clubbing, or pedal edema. NEUROLOGICAL: Gross neurological examination did not reveal any focal deficits. SKIN: No rashes. no petechiae. - Labs CBC & Chem 7: 11/08/23 07:18 11/09/23 06:58 Labs: Abnormal Lab Results - Last 24 Hours (Table) 11/09/23 Range/Units 06:58 Sodium 135 L (137-145) mmol/L Chloride 93 L (98-107) mmol/L Carbon Dioxide 35 H (22-30) mmol/L BUN 57 H (7-17) mg/dL Creatinine 1.13 H (0.52-1.04) mg/dL Assessment and Plan Assessment: None STEMI Chronic systolic CHF with ejection fraction 45-50% Chronic low back pain Paroxysmal atrial fibrillation on a blood thinner at home. Pulmonary hypertension Obesity with BMI of 44.5. Chronic kidney disease stage III with mild acute kidney injury Borderline low normal blood pressure. Plan: Continue with Eliquis. Plan for cardiac cath was noted showing normal coronary artery Continue with lower dose of metoprolol 50 mg and monitor heart rate Commutator Tester team on the case Labs and medication were reviewed.. Continue same treatment. Continue with symptomatic treatment. Resume home medication. Monitor labs and vitals. DVT and GI prophylaxis. Further recommendations as per clinical course of the patient DVT prophylaxis: Eliquis GI Prophylaxis: Pepcid Prognosis is guarded
[2023-11-10] MEDS: AMIODARONE 200 MG TAB PO SCH (07:58)
[2023-11-10] MEDS: MAGNESIUM OXIDE 400 MG TAB PO SCH (07:58)
[2023-11-10] MEDS: APIXABAN 5 MG TAB PO SCH ×2 (07:58→16:19)
[2023-11-10] MEDS: guaiFENesin 600 MG TABLET.ER PO SCH ×2 (07:58→20:50)
[2023-11-10] MEDS: METOPROLOL TARTRATE 50 MG TAB PO SCH (07:59)
[2023-11-10 08:02] LABS: African American GFR (CKD) 65 (>60 ml/min/1.73 sqM); Anion Gap 5 mmol/L; Blood Urea Nitrogen 44 mg/dL (7-17); Calcium 8.3 mg/dL (8.4-10.2); Carbon Dioxide 33 mmol/L (22-30); Chloride 96 mmol/L (98-107); Glucose 83 mg/dL (74-99); Non-African American GFR(CKD) 57 (>60 ml/min/1.73 sqM); Potassium 3.2 mmol/L (3.5-5.1); Sodium 134 mmol/L (137-145)
[2023-11-10] MEDS ORDERED: Potassium Replacement Protocol 1 EACH MISC MISCELLANE PRN (09:07)
[2023-11-10] MEDS: DOCUSATE 100 MG CAP PO SCH ×2 (09:37→16:19)
[2023-11-10] MEDS ORDERED: CALCIUM CARBONATE 500 MG CHEWABLE PO PRN (09:46)
[2023-11-10] MEDS ORDERED: ONDANSETRON 4 MG in SODIUM CHLORIDE 0.9% 50 ML IVPB PRN (10:36)
[2023-11-10] MEDS ORDERED: FAMOTIDINE 20 MG/2 ML VIAL IV SCH (10:45)
[2023-11-10] MEDS: POTASSIUM CHLORIDE ER 20 MEQ TAB.ER PO SCH ×2 (10:59→11:58)
[2023-11-10] MEDS: ONDANSETRON 4 MG/2 ML VIAL IVP PRN (10:59)
[2023-11-10] MEDS: NYSTATIN 100,000 UNIT/GM POWD 15 GM TOPICAL SCH ×2 (11:04→20:50)
[2023-11-10 11:41] LABS: Glucose,Whole Blood 119 mg/dL (70-110)
[2023-11-10] MEDS: FUROSEMIDE 10 MG/ML 4 ML VIAL IV SCH ×2 (11:58→20:49)
[2023-11-10 12:33] LABS: Total Bilirubin 1.4 mg/dL (0.2-1.3)
[2023-11-10] MEDS ORDERED: fentaNYL (PF) 50 MCG/ML 5 ML AMP IVP PRN (12:55)
[2023-11-10] MEDS ORDERED: BENZOCAINE SPRAY 1 CAN TOPICAL PRN (12:55)
[2023-11-10] MEDS ORDERED: MIDAZOLAM 2 MG/2 ML VIAL IV PRN (12:55)
--- NOTE | 2023-11-10 12:58 | P.PN ---
Subjective Progress Note Date: 11/10/23 HISTORY OF PRESENT ILLNESS: This is a 73-year-old female with a past medical history significant for pulmonary embolism, paroxysmal atrial fibrillation, hypertension, hyperlipidemia, congestive heart failure, and pulmonary hypertension. Patient follows in the office with Dr. Sylvester. We have been asked to see the patient in consultation for congestive heart failure. Patient examined at the bedside. Patient reports having lower back pain on the left side. She denies any chest pain or pressure. She denies any shortness of breath. * EKG reveals atrial fibrillation with ST depression noted in V3V6 and T-wave inversions inferiorly * Chest xray limited inspiration with basilar atelectasis favored over pneumonia. * Laboratory data: BUN 71. Creatinine 1.09. ProBNP 13,800. Troponin 0.118. 0.110. 0.110. * Current home cardiac medications include digoxin 125 g daily, Lipitor 80 mg at night, amiodarone 200mg twice a day, Eliquis 5 mg twice a day, Lasix 60 mg twice a day, metoprolol tartrate 150 mg twice a day * Most recent echocardiogram obtained in September 2023 revealed ejection fraction 45-50% 11/10 Yesterday, patient underwent cardiac catheterization with Dr. Sylvester which revealed normal coronary arteries, elevated left-sided filling pressures. Plan for aggressive risk factor modification and increase diuretics. Patient complains of feeling fatigued. She states she has no appetite. Lower extremity edema is improved. Yesterday digoxin was discontinued and metoprolol was decreased to 50 mg from 150. Patient is having pauses up to 3.6 seconds and remains in atrial fibrillation. Patient has been afebrile, heart rate in the 50s, blood pressure 93/54, pulse ox 95% on room air. Repeat blood work reveals sodium 134, potassium 3.2, BUN 44 creatinine 0.98. PHYSICAL EXAM: VITAL SIGNS: Reviewed. GENERAL: Well-developed in no acute distress. HEENT: Head is normocephalic. Pupils are equal, round. Sclerae anicteric. Mucous membranes of the mouth are moist. Neck supple. No JVD or thyromegaly LUNGS: Respirations even and unlabored. Lungs essentially clear to auscultation bilaterally. HEART: Irregular rate and rhythm. S1 and S2 heard. ABDOMEN: Soft. Nondistended. Nontender. EXTREMITIES: Normal range of motion. No clubbing or cyanosis. Peripheral pulses intact. No lower extremity edema NEUROLOGIC: Awake and alert. Oriented x 3. ASSESSMENT: Shortness of breath Left lower back pain Non-STEMI s/p cardiac catheterization showing normal coronaries Abnormal EKG with ST depression in V3V6 and T-wave inversions inferiorly, appears new from previous EKG in the office in 2021 Chronic heart failure with mildly reduced EF, 45-50%, appears euvolemic, despite elevated BNP Recent hospitalization for acute hypoxic respiratory failure requiring mechanical ventilation History of right pleural effusion, status post thoracentesis on 10/08/2023 with removal of 1200 mL History of left pleural effusion, status post thoracentesis on 10/09/2023 with removal of 550 mL Paroxysmal atrial fibrillation History of pulmonary embolism with EKOS, February 2022 Hypertension Hyperlipidemia Hypothyroidism Pulmonary hypertension Morbid obesity: BMI 44.4 PLAN: Continue amiodarone to 200 mg daily Continue Eliquis Patient to undergo RICO and cardioversion tomorrow with Dr. Sylvester Discontinue atorvastatin for elevated liver function test Discontinue metoprolol for pauses. Start patient on IV Lasix 40 mg every 12 hours and hold for map of less than 60 Further recommendations pending patient's course Nurse practitioner note has been reviewed by physician. Signing provider agrees with the documented findings, assessment, and plan of care. Objective - Vital Signs Vital signs: Vital Signs Temp 97.9 F 11/09/23 20:00 Pulse 59 L 11/10/23 08:00 Resp 18 11/10/23 08:00 BP 92/59 11/10/23 08:00 Pulse Ox 96 11/10/23 08:00 FiO2 Intake & Output 11/09/23 11/10/23 11/10/23 18:59 06:59 18:59 Intake Total 340 Output Total 550 350 Balance -210 -350 Weight 99.8 kg Intake: IV 100 Oral 240 Output: Urine 550 350 Other: Voiding Method External Catheter External Catheter External Catheter - Labs CBC & Chem 7: 11/08/23 07:18 11/10/23 07:03 Labs: Abnormal Lab Results - Last 24 Hours (Table) 11/10/23 Range/Units 07:03 Sodium 134 L (137-145) mmol/L Potassium 3.2 L (3.5-5.1) mmol/L Chloride 96 L (98-107) mmol/L Carbon Dioxide 33 H (22-30) mmol/L BUN 44 H (7-17) mg/dL Calcium 8.3 L (8.4-10.2) mg/dL
[2023-11-10] MEDS ORDERED: ZINC OXIDE 20% OINT 28.4 GM TUBE TOPICAL PRN (16:15)
[2023-11-10 16:45] LABS: Glucose,Whole Blood 80 mg/dL (70-110)
[2023-11-10 19:59] LABS: Glucose,Whole Blood 103 mg/dL (70-110)
[2023-11-10] MEDS: ALPRAZolam 0.25 MG TAB PO PRN (20:49)
[2023-11-10] MEDS: MELATONIN 5 MG TABLET PO SCH (20:50)
[2023-11-11] MEDS: IPRATROPIUM-ALBUTEROL 3 ML NEB INHALATION SCH ×4 (01:05→20:59)
[2023-11-11 05:51] LABS: Glucose,Whole Blood 83 mg/dL (70-110)
[2023-11-11] MEDS: LEVOTHYROXINE 88 MCG TAB PO SCH (06:02)
[2023-11-11] MEDS: INSULIN ASPART (NovoLOG) 100 UNIT/ML VIAL SQ SCH ×3 (06:02→16:49)
[2023-11-11] MEDS: APIXABAN 5 MG TAB PO SCH ×2 (09:02→17:35)
[2023-11-11] MEDS: FAMOTIDINE 20 MG/2 ML VIAL IV SCH (09:02)
[2023-11-11] MEDS: MAGNESIUM OXIDE 400 MG TAB PO SCH (09:02)
[2023-11-11] MEDS: DOCUSATE 100 MG CAP PO SCH ×2 (09:02→17:35)
[2023-11-11] MEDS: guaiFENesin 600 MG TABLET.ER PO SCH ×2 (09:02→19:44)
[2023-11-11] MEDS: FUROSEMIDE 10 MG/ML 4 ML VIAL IV SCH ×2 (09:02→19:44)
[2023-11-11] MEDS: AMIODARONE 200 MG TAB PO SCH (09:02)
[2023-11-11] MEDS: NYSTATIN 100,000 UNIT/GM POWD 15 GM TOPICAL SCH ×2 (09:02→19:44)
[2023-11-11 11:28] LABS: Glucose,Whole Blood 75 mg/dL (70-110)
--- NOTE | 2023-11-11 12:33 | P.PN ---
Subjective Progress Note Date: 11/11/23 HISTORY OF PRESENT ILLNESS: This is a 73-year-old female with a past medical history significant for pulmonary embolism, paroxysmal atrial fibrillation, hypertension, hyperlipidemia, congestive heart failure, and pulmonary hypertension. Patient follows in the office with Dr. Sylvester. We have been asked to see the patient in consultation for congestive heart failure. Patient examined at the bedside. Patient reports having lower back pain on the left side. She denies any chest pain or pressure. She denies any shortness of breath. * EKG reveals atrial fibrillation with ST depression noted in V3V6 and T-wave inversions inferiorly * Chest xray limited inspiration with basilar atelectasis favored over pneumonia. * Laboratory data: BUN 71. Creatinine 1.09. ProBNP 13,800. Troponin 0.118. 0.110. 0.110. * Current home cardiac medications include digoxin 125 g daily, Lipitor 80 mg at night, amiodarone 200mg twice a day, Eliquis 5 mg twice a day, Lasix 60 mg twice a day, metoprolol tartrate 150 mg twice a day * Most recent echocardiogram obtained in September 2023 revealed ejection fraction 45-50% 11/10 Yesterday, patient underwent cardiac catheterization with Dr. Sylvester which revealed normal coronary arteries, elevated left-sided filling pressures. Plan for aggressive risk factor modification and increase diuretics. Patient complains of feeling fatigued. She states she has no appetite. Lower extremity edema is improved. Yesterday digoxin was discontinued and metoprolol was decreased to 50 mg from 150. Patient is having pauses up to 3.6 seconds and remains in atrial fibrillation. Patient has been afebrile, heart rate in the 50s, blood pressure 93/54, pulse ox 95% on room air. Repeat blood work reveals sodium 134, potassium 3.2, BUN 44 creatinine 0.98. 11/11 Patient is going for RICO and cardioversion with Dr. Sylvester today. Telemetry has remained in atrial fibrillation with controlled rate. PHYSICAL EXAM: VITAL SIGNS: Reviewed. GENERAL: Well-developed in no acute distress. HEENT: Head is normocephalic. Pupils are equal, round. Sclerae anicteric. Mucous membranes of the mouth are moist. Neck supple. No JVD or thyromegaly LUNGS: Respirations even and unlabored. Lungs essentially clear to auscultation bilaterally. HEART: Irregular rate and rhythm. S1 and S2 heard. ABDOMEN: Soft. Nondistended. Nontender. EXTREMITIES: Normal range of motion. No clubbing or cyanosis. Peripheral pulses intact. No lower extremity edema NEUROLOGIC: Awake and alert. Oriented x 3. ASSESSMENT: Shortness of breath Left lower back pain Non-STEMI s/p cardiac catheterization showing normal coronaries Abnormal EKG with ST depression in V3V6 and T-wave inversions inferiorly, appears new from previous EKG in the office in 2021 Chronic heart failure with mildly reduced EF, 45-50%, appears euvolemic, despite elevated BNP Recent hospitalization for acute hypoxic respiratory failure requiring mechanical ventilation History of right pleural effusion, status post thoracentesis on 10/08/2023 with removal of 1200 mL History of left pleural effusion, status post thoracentesis on 10/09/2023 with removal of 550 mL Paroxysmal atrial fibrillation History of pulmonary embolism with EKOS, February 2022 Hypertension Hyperlipidemia Hypothyroidism Pulmonary hypertension Morbid obesity: BMI 44.4 PLAN: Continue amiodarone to 200 mg daily Continue Eliquis Patient to undergo RICO and cardioversion today with Dr. Sylvester Discontinue atorvastatin for elevated liver function test Discontinue metoprolol for pauses. Start patient on IV Lasix 40 mg every 12 hours and hold for map of less than 60 Further recommendations pending patient's course Nurse practitioner note has been reviewed by physician. Signing provider agrees with the documented findings, assessment, and plan of care. Objective - Vital Signs Vital signs: Vital Signs Temp 97.7 F 11/10/23 20:00 Pulse 54 L 11/11/23 04:00 Resp 18 11/11/23 04:00 BP 83/61 11/11/23 04:00 Pulse Ox 92 L 11/11/23 08:13 FiO2 21 11/11/23 08:13 Intake & Output 11/10/23 11/11/23 11/11/23 18:59 06:59 18:59 Intake Total 118 Output Total 350 350 Balance -232 -350 Weight 105.9 kg Intake: Oral 118 Output: Urine 350 350 Other: Voiding Method External Catheter External Catheter # Bowel Movements 1 - Labs CBC & Chem 7: 11/08/23 07:18 11/10/23 07:03 Labs: Abnormal Lab Results - Last 24 Hours (Table) 11/10/23 11/10/23 Range/Units 07:03 11:40 POC Glucose (mg/dL) 119 H (70-110) mg/dL Total Bilirubin 1.4 H (0.2-1.3) mg/dL AST 47 H (14-36) U/L ALT 84 H (4-34) U/L
--- NOTE | 2023-11-11 13:15 | P.PN ---
Subjective Progress Note Date: 11/11/23 H&P Date: 11/08/23 This is a pleasant 73-year-old female recently discharged on 10/28/2023 to [facility] subacute rehab after a lengthy inpatient hospitalization with atrial fibrillation, CHF, bilateral pleural effusions and multiple other medical issues. For specific details please refer to EHR. Patient was transported to the ER with complaints of shortness of breath. Reports she had a stressful morning, while attempting to persuade staff to order nystatin powder instead of cream for her sore bottom/stage I sacral wound. Apparently she had a verbal altercation, developed shortness of breath afterwards. Reports she has been spending too much time sitting in her wheelchair.Denies chest pain, palpitations. Denies lightheadedness dizziness or focal deficits. Denies n ausea vomiting or diarrhea. Denies abdominal pain. Denies syncope. Troponin 0.118, 0.110 0.110. EKG reporting atrial fibrillation, nonspecific ST segment and T-wave changes. Chest x-ray reporting limited inspiration with basilar atelectasis favored over pneumonia. Afebrile, normal WBC, maintaining O2 sats of 99% on room air. Respiratory rate 14-16. Received Lasix IV push in the ER, potassium level up to 5, KDur placed on hold. 11/11/2023 underwent cardiac catheterization on 11/09/2023 Reporting normal coronary arteries, elevated left-sided filling pressure, with recommendations of increasing diuretics and considering cardioversion with aggressive risk factor modification. Telemetry atrial fibrillation with controlled ventricular rate. Scheduled for MIGUEL and cardioversion today. Afebrile, maintaining O2 sats in the high 90s on room air. Statins discontinued secondary to elevated LFTs. Metoprolol discontinued secondary to pauses. Objective - Vital Signs Vital signs: Vital Signs Temp 97.7 F 11/10/23 20:00 Pulse 54 L 11/11/23 04:00 Resp 18 11/11/23 04:00 BP 83/61 11/11/23 04:00 Pulse Ox 92 L 11/11/23 08:13 FiO2 21 11/11/23 08:13 Intake & Output 11/10/23 11/11/23 11/11/23 18:59 06:59 18:59 Intake Total 118 Output Total 350 350 Balance -232 -350 Weight 105.9 kg Intake: Oral 118 Output: Urine 350 350 Other: Voiding Method External Catheter External Catheter # Bowel Movements 1 - Exam - Exam PHYSICAL EXAM: VITAL SIGNS: [As above] GENERAL: Alert and oriented 3, sitting up in bed, no acute distress. HEENT: Normocephalic, Conjunctivae normal. NECK: Supple, No JVD. CARDIOVASCULAR: S1, S2. irregular. Systolic murmur. RESPIRATION: Unlabored, equal air entry, essentially clear, bilateral bases diminished ABDOMEN: Soft, nondistended, nontender. +BS. LEGS: Mild soft decreasing chronic bilateral lower extremity edema. NERVOUS SYSTEM: No focal deficits. Cranial nerves II through XII grossly intact. Skin: Warm and dry, stage I sacral wound - Labs CBC & Chem 7: 11/08/23 07:18 11/10/23 07:03 Labs: Abnormal Lab Results - Last 24 Hours (Table) 11/10/23 11/10/23 Range/Units 07:03 11:40 POC Glucose (mg/dL) 119 H (70-110) mg/dL Total Bilirubin 1.4 H (0.2-1.3) mg/dL AST 47 H (14-36) U/L ALT 84 H (4-34) U/L Assessment and Plan Assessment: Elevated troponins,abn EKG, NSTEMI, Type II secondary to respiratory failure and A. fib,S/P cardiac cath. reporting normal coronaries Chronic Atrial fibrillation with rapid ventricular rate Chronic CHF exacerbation, systolic dysfunction, EF 45-50%. History of Bilateral pleural effusions status post bilateral thoracentesis,transudative;Cytology negative for malignancy, on prior hospitalization. Chronic renal failure, stage III Pulmonary embolism bilaterally status post EKOS, 03/14/2022 Pulmonary hypertension Moderate mitral and tricuspid regurgitation Hypothyroidism Hypertension, history of Hyperlipidemia Osteoarthritis with history right knee placement in July 2022. Morbid obesity, BMI 46 Anxiety Plan: Continue on current medication regime ,monitoring and symptomatic jeramy tment. NPO, scheduled for Miguel and cardioversion. Diuretics as per cardiology. The impression and plan of care has been dictated as directed. : I performed a history and examination of this patient, discussed the same with the dictator. I agree with the dictator's note ,documented as a scribe. Any additional findings or plans will be noted.
[2023-11-11] MEDS ORDERED: BENZOCAINE SPRAY 1 CAN TOPICAL ONE (14:15)
[2023-11-11] MEDS ORDERED: LACTATED RINGERS 1,000 ML IV ONE (14:15)
[2023-11-11] MEDS ORDERED: PROPOFOL 10 MG/ML 20 ML VIAL IV ONE (14:30)
[2023-11-11] MEDS ORDERED: LIDOCAINE 1% INJ 10MG/ML (20 ML MDV) ONE (14:30)
--- NOTE | 2023-11-11 15:15 | P.TEE ---
Description of Procedure(s): Procedure performed: Transesophageal Echocardiogram with color flow doppler, pulsed wave doppler and continuous wave doppler, synchronized cardioversion Moderate conscious sedation: Moderate conscious sedation was supplied by anesthesia, see separate report. Complications: none Indications: Atrial fibrillation PROCEDURE: After the risks, benefits and alternatives of the above mentioned procedure was explained in detail with the patient, informed consent was obtained. Patient was brought to the lab in a fasting state. Patient was given sedation by anesthesia, see separate report. The throat was sprayed with Hurricane to anesthetize the throat. A lubricated Omni probe was then introduced into the esophagus and stomach and multiple views were obtained. 2D echo with color flow doppler, pulsed wave doppler and continuous wave doppler was utilized. Agitated saline bubbles were injected to assess for any intra-atrial shunt. The probe was then removed. There was no thrombus noted and therefore patient underwent synchronized cardioversion x 1 with 200J with resultant sinus rhythm. Patient tolerated the procedure well. Patient was transferred to the post procedure area in stable and satisfactory condition. FINDINGS: 1. The aortic valve is tricuspid with normal function with mild to moderate aortic regurgitation. 2. The mitral valve appears be structurally normal however secondary mitral regurgitation appearing related to severe left atrial dilation with moderate to severe mitral regurgitation with Pisa radius 0.8cm2 at [place]quist 44, vena contracta 0.6cm however systolic flow reversal in 3/3 pulmonary veins interrogated more consistent with severe mitral regurgitation 3. Tricuspid valve is normal with moderate tricuspid regurgitation. 4. The interatrial septum is intact. No evidence of PFO. 5. Left atrial appendage is free of clot. 6. Left ventricular ejection fraction 55% 7. Severely dilated left atrium
[2023-11-11 16:44] LABS: Glucose,Whole Blood 62 mg/dL (70-110)
[2023-11-11] MEDS: MELATONIN 5 MG TABLET PO SCH (19:44)
[2023-11-11 20:02] LABS: Glucose,Whole Blood 83 mg/dL (70-110)
[2023-11-11] MEDS: HYDROcodone/APAP 5-325MG 1 EACH TAB PO PRN (22:59)
[2023-11-12] MEDS: LEVOTHYROXINE 88 MCG TAB PO SCH (06:05)
[2023-11-12 06:20] LABS: Glucose,Whole Blood 80 mg/dL (70-110)
[2023-11-12] MEDS: INSULIN ASPART (NovoLOG) 100 UNIT/ML VIAL SQ SCH ×3 (06:27→16:31)
[2023-11-12 07:11] LABS: Anisocytosis Slight; Basophils % (A) 1 %; Eosinophils # (A) 0.1 k/uL (0-0.7); Eosinophils % (A) 2 %; HCT 39.2 % (34.0-46.0); HGB 12.6 gm/dL (11.4-16.0); Hypochromasia Slight; Lymphocytes # (A) 1.1 k/uL (1.0-4.8); Lymphocytes % (A) 18 %; MCH 31.8 pg (25.0-35.0); MCHC 32.1 g/dL (31.0-37.0); Macrocytosis Slight; Mean Platelet Volume 7.3; Monocytes # (A) 0.5 k/uL (0-1.0); Monocytes % (A) 9 %; Neutrophils % (A) 68 %; Platelet Count 293 k/uL (150-450); RBC 3.96 m/uL (3.80-5.40); RDW 16.6 % (11.5-15.5); WBC 5.9 k/uL (3.8-10.6)
[2023-11-12] MEDS: DOCUSATE 100 MG CAP PO SCH ×2 (08:22→16:31)
[2023-11-12] MEDS: guaiFENesin 600 MG TABLET.ER PO SCH ×2 (08:22→20:22)
[2023-11-12] MEDS: MAGNESIUM OXIDE 400 MG TAB PO SCH (08:22)
[2023-11-12] MEDS: AMIODARONE 200 MG TAB PO SCH (08:22)
[2023-11-12] MEDS: FAMOTIDINE 20 MG/2 ML VIAL IV SCH (08:23)
[2023-11-12] MEDS: FUROSEMIDE 10 MG/ML 4 ML VIAL IV SCH ×2 (08:23→20:22)
[2023-11-12] MEDS: APIXABAN 5 MG TAB PO SCH ×2 (08:23→16:31)
[2023-11-12] MEDS: NYSTATIN 100,000 UNIT/GM POWD 15 GM TOPICAL SCH ×2 (08:29→20:22)
[2023-11-12 08:51] LABS: African American GFR (CKD) 60 (>60 ml/min/1.73 sqM); Anion Gap 6 mmol/L; Blood Urea Nitrogen 32 mg/dL (7-17); Calcium 8.3 mg/dL (8.4-10.2); Carbon Dioxide 35 mmol/L (22-30); Chloride 95 mmol/L (98-107); Glucose 71 mg/dL (74-99); Magnesium 2.2 mg/dL (1.6-2.3); Non-African American GFR(CKD) 52 (>60 ml/min/1.73 sqM); Sodium 136 mmol/L (137-145)
[2023-11-12] MEDS: METOPROLOL TARTRATE 12.5 MG TAB PO SCH ×2 (09:57→20:22)
[2023-11-12] MEDS: ALPRAZolam 0.25 MG TAB PO PRN (09:57)
[2023-11-12 11:45] LABS: Glucose,Whole Blood 101 mg/dL (70-110)
--- NOTE | 2023-11-12 12:10 | P.PN ---
Subjective Progress Note Date: 11/12/23 HISTORY OF PRESENT ILLNESS: This is a 73-year-old female with a past medical history significant for pulmonary embolism, paroxysmal atrial fibrillation, hypertension, hyperlipidemia, congestive heart failure, and pulmonary hypertension. Patient follows in the office with Dr. Sylvester. We have been asked to see the patient in consultation for congestive heart failure. Patient examined at the bedside. Patient reports having lower back pain on the left side. She denies any chest pain or pressure. She denies any shortness of breath. * EKG reveals atrial fibrillation with ST depression noted in V3V6 and T-wave inversions inferiorly * Chest xray limited inspiration with basilar atelectasis favored over pneumonia. * Laboratory data: BUN 71. Creatinine 1.09. ProBNP 13,800. Troponin 0.118. 0.110. 0.110. * Current home cardiac medications include digoxin 125 g daily, Lipitor 80 mg at night, amiodarone 200mg twice a day, Eliquis 5 mg twice a day, Lasix 60 mg twice a day, metoprolol tartrate 150 mg twice a day * Most recent echocardiogram obtained in September 2023 revealed ejection fraction 45-50% 11/10 Yesterday, patient underwent cardiac catheterization with Dr. Sylvester which revealed normal coronary arteries, elevated left-sided filling pressures. Plan for aggressive risk factor modification and increase diuretics. Patient complains of feeling fatigued. She states she has no appetite. Lower extremity edema is improved. Yesterday digoxin was discontinued and metoprolol was decreased to 50 mg from 150. Patient is having pauses up to 3.6 seconds and remains in atrial fibrillation. Patient has been afebrile, heart rate in the 50s, blood pressure 93/54, pulse ox 95% on room air. Repeat blood work reveals sodium 134, potassium 3.2, BUN 44 creatinine 0.98. 11/11 Patient is going for RICO and cardioversion with Dr. Sylvester today. Telemetry has remained in atrial fibrillation with controlled rate. 11/12 Patient underwent successful RICO and cardioversion yesterday and remains in sinus rhythm. Heart rate is in the 70s, blood pressure 104/68, pulse ox 95% on room air. Repeat blood work reveals hemoglobin 12.6. Sodium 136, potassium 4, chloride 95, CO2 35, BUN 32 and creatinine 1.06. PHYSICAL EXAM: VITAL SIGNS: Reviewed. GENERAL: Well-developed in no acute distress. HEENT: Head is normocephalic. Pupils are equal, round. Sclerae anicteric. Mucous membranes of the mouth are moist. Neck supple. No JVD or thyromegaly LUNGS: Respirations even and unlabored. Lungs essentially clear to auscultation bilaterally. HEART: Irregular rate and rhythm. S1 and S2 heard. ABDOMEN: Soft. Nondistended. Nontender. EXTREMITIES: Normal range of motion. No clubbing or cyanosis. Peripheral pulses intact. No lower extremity edema NEUROLOGIC: Awake and alert. Oriented x 3. ASSESSMENT: Shortness of breath Left lower back pain Non-STEMI s/p cardiac catheterization showing normal coronaries Abnormal EKG with ST depression in V3V6 and T-wave inversions inferiorly, appears new from previous EKG in the office in 2021 Chronic heart failure with mildly reduced EF, 45-50%, appears euvolemic, despite elevated BNP Recent hospitalization for acute hypoxic respiratory failure requiring mec hanical ventilation History of right pleural effusion, status post thoracentesis on 10/08/2023 with removal of 1200 mL History of left pleural effusion, status post thoracentesis on 10/09/2023 with removal of 550 mL Paroxysmal atrial fibrillation History of pulmonary embolism with EKOS, February 2022 Hypertension Hyperlipidemia Hypothyroidism Pulmonary hypertension Morbid obesity: BMI 44.4 PLAN: Continue amiodarone to 200 mg daily Continue Eliquis Resume patient on Lopressor 12.5 mg twice daily Is currently on Lasix 40 mg IV every 12 hours. Further recommendations pending patient's course Nurse practitioner note has been reviewed by physician. Signing provider agrees with the documented findings, assessment, and plan of care. Objective - Vital Signs Vital signs: Vital Signs Temp 97.6 F 11/12/23 08:20 Pulse 78 11/12/23 08:20 Resp 18 11/12/23 08:20 BP 104/68 11/12/23 08:20 Pulse Ox 94 L 11/12/23 08:44 FiO2 21 11/11/23 08:13 Intake & Output 11/11/23 11/12/23 11/12/23 18:59 06:59 18:59 Intake Total 300 Balance 300 Weight 105.9 kg 143.6 kg Intake: IV 300 Other: Voiding Method External Catheter External Catheter # Voids 2 - Labs CBC & Chem 7: 11/12/23 06:45 11/12/23 06:45 Labs: Abnormal Lab Results - Last 24 Hours (Table) 11/11/23 11/12/23 11/12/23 Range/Units 16:42 06:45 06:45 RDW 16.6 H (11.5-15.5) % Sodium 136 L (137-145) mmol/L Chloride 95 L (98-107) mmol/L Carbon Dioxide 35 H (22-30) mmol/L BUN 32 H (7-17) mg/dL Creatinine 1.06 H (0.52-1.04) mg/dL Glucose 71 L (74-99) mg/dL POC Glucose (mg/dL) 62 L (70-110) mg/dL Calcium 8.3 L (8.4-10.2) mg/dL
[2023-11-12] MEDS: ONDANSETRON 4 MG/2 ML VIAL IVP PRN (13:57)
--- NOTE | 2023-11-12 14:27 | P.PN ---
Subjective Progress Note Date: 11/12/23 H&P Date: 11/08/23 This is a pleasant 73-year-old female recently discharged on 10/28/2023 to [facility] subacute rehab after a lengthy inpatient hospitalization with atrial fibrillation, CHF, bilateral pleural effusions and multiple other medical issues. For specific details please refer to EHR. Patient was transported to the ER with complaints of shortness of breath. Reports she had a stressful morning, while attempting to persuade staff to order nystatin powder instead of cream for her sore bottom/stage I sacral wound. Apparently she had a verbal altercation, developed shortness of breath afterwards. Reports she has been spending too much time sitting in her wheelchair.Denies chest pain, palpitations. Denies lightheadedness dizziness or focal deficits. Denies n ausea vomiting or diarrhea. Denies abdominal pain. Denies syncope. Troponin 0.118, 0.110 0.110. EKG reporting atrial fibrillation, nonspecific ST segment and T-wave changes. Chest x-ray reporting limited inspiration with basilar atelectasis favored over pneumonia. Afebrile, normal WBC, maintaining O2 sats of 99% on room air. Respiratory rate 14-16. Received Lasix IV push in the ER, potassium level up to 5, KDur placed on hold. 11/11/2023 underwent cardiac catheterization on 11/09/2023 Reporting normal coronary arteries, elevated left-sided filling pressure, with recommendations of increasing diuretics and considering cardioversion with aggressive risk factor modification. Telemetry atrial fibrillation with controlled ventricular rate. Scheduled for RICO and cardioversion today. Afebrile, maintaining O2 sats in the high 90s on room air. Statins discontinued secondary to elevated LFTs. Metoprolol discontinued secondary to pauses. 11/12/23 Completed successful RICO and cardioversion yesterday. Remains in sinus rhythm.Maintained on amiodarone, anticoagulated with Eliquis. Diuresing well on Lasix IV push. BUN 32, creatinine 1.06. Reports her lower extremities'chronic edema feels tighter this morning. Low-dose Lopressor resumed as per cardiology. Currently maintaining O2 sats of 94% on room air. Denies chest pain, palpitations or increasing shortness of breath. Objective - Vital Signs Vital signs: Vital Signs Temp 97.6 F 11/12/23 12:04 Pulse 67 11/12/23 13:28 Resp 21 11/12/23 12:05 BP 150/69 11/12/23 12:04 Pulse Ox 95 11/12/23 13:26 FiO2 21 11/11/23 08:13 Intake & Output 11/11/23 11/12/23 11/12/23 18:59 06:59 18:59 Intake Total 300 358 Balance 300 358 Weight 105.9 kg 143.6 kg Intake: IV 300 Oral 358 Other: Voiding Method External Catheter External Catheter External Catheter # Voids 2 - Exam - Exam PHYSICAL EXAM: VITAL SIGNS: [As above] GENERAL: Alert and oriented 3, sitting up in bed, no acute distress. HEENT: Normocephalic, Conjunctivae normal. NECK: Supple, No JVD. CARDIOVASCULAR: S1, S2. irregular. Systolic murmur. RESPIRATION: Unlabored, equal air entry, essentially clear, bilateral bases diminished ABDOMEN: Soft, nondistended, nontender. +BS. LEGS: chronic bilateral lower extremity edema. NERVOUS SYSTEM: No focal deficits. Cranial nerves II through XII grossly intact. Skin: Warm and dry. - Labs CBC & Chem 7: 11/12/23 06:45 11/12/23 06:45 Labs: Abnormal Lab Results - Last 24 Hours (Table) 11/11/23 11/12/23 11/12/23 Range/Units 16:42 06:45 06:45 RDW 16.6 H (11.5-15.5) % Sodium 136 L (137-145) mmol/L Chloride 95 L (98-107) mmol/L Carbon Dioxide 35 H (22-30) mmol/L BUN 32 H (7-17) mg/dL Creatinine 1.06 H (0.52-1.04) mg/dL Glucose 71 L (74-99) mg/dL POC Glucose (mg/dL) 62 L (70-110) mg/dL Calcium 8.3 L (8.4-10.2) mg/dL Assessment and Plan Assessment: Elevated troponins,abn EKG, NSTEMI, Type II secondary to respiratory failure and A. fib,S/P cardiac cath. reporting normal coronaries Chronic Atrial fibrillation with rapid ventricular rate, status post RICO and successful cardioversion Chronic CHF exacerbation, systolic dysfunction, EF 45-50%. History of Bilateral pleural effusions status post bilateral thoracentesis,transudative;Cytology negative for malignancy, on prior hospitalization. Chronic renal failure, stage III Pulmonary embolism bilaterally status post EKOS, 03/14/2022 Pulmonary hypertension Moderate mitral and tricuspid regurgitation Hypothyroidism Hypertension, history of Hyperlipidemia Osteoarthritis with history right knee placement in July 2022. Morbid obesity, BMI 46 Anxiety Plan: Continue on current medication regime ,monitoring and symptomatic treatment. Diuretics as per cardiology. Evaluated by PT, subacute rehab rec ommended. Discharge planning in progress the next 24-48 hours. The impression and plan of care has been dictated as directed. : I performed a history and examination of this patient, discussed the same with the dictator. I agree with the dictator's note ,documented as a scribe. Any additional findings or plans will be noted.
[2023-11-12 16:31] LABS: Glucose,Whole Blood 107 mg/dL (70-110)
[2023-11-12 19:58] LABS: Glucose,Whole Blood 106 mg/dL (70-110)
[2023-11-12] MEDS: MELATONIN 5 MG TABLET PO SCH (20:22)
[2023-11-13 00:31] VITALS: RESP 16
[2023-11-13 06:14] LABS: Glucose,Whole Blood 90 mg/dL (70-110)
[2023-11-13] MEDS: INSULIN ASPART (NovoLOG) 100 UNIT/ML VIAL SQ SCH (06:41)
[2023-11-13] MEDS: LEVOTHYROXINE 88 MCG TAB PO SCH (06:43)
[2023-11-13] MEDS: FAMOTIDINE 20 MG/2 ML VIAL IV SCH (08:59)
[2023-11-13] MEDS: AMIODARONE 200 MG TAB PO SCH (08:59)
[2023-11-13] MEDS: MAGNESIUM OXIDE 400 MG TAB PO SCH (08:59)
[2023-11-13] MEDS: APIXABAN 5 MG TAB PO SCH (08:59)
[2023-11-13] MEDS: FUROSEMIDE 10 MG/ML 4 ML VIAL IV SCH (08:59)
[2023-11-13] MEDS: guaiFENesin 600 MG TABLET.ER PO SCH (08:59)
[2023-11-13] MEDS: DOCUSATE 100 MG CAP PO SCH (08:59)
[2023-11-13] MEDS ORDERED: METOPROLOL TARTRATE 25 MG TAB PO SCH (09:00)
[2023-11-13] MEDS: NYSTATIN 100,000 UNIT/GM POWD 15 GM TOPICAL SCH (09:07)
[2023-11-13 09:24] VITALS: BP 108/68; PULSE 79; TEMP 97.3
--- NOTE | 2023-11-13 10:21 | P.DS ---
Providers Date of admission: 11/07/23 13:04 Expected date of discharge: 11/13/23 Attending physician: Regulo Greene Consults: 11/07/23 13:04 Consult Physician Routine Consulting Provider: [facility] Consult Reason/Comments: chf Do you want consulting provider notified?: Yes Primary care physician: Regulo Greene Hospital Course: Final Diagnoses: Elevated troponins,abn EKG, NSTEMI, Type II secondary to respiratory failure and A. fib,S/P cardiac cath. reporting normal coronaries Chronic Atrial fibrillation with rapid ventricular rate, status post RICO and cardioversion Chronic CHF exacerbation, systolic dysfunction, EF 45-50%. History of Bilateral pleural effusions status post bilateral thoracentesis,transudative;Cytology negative for malignancy, on prior hospitaliz ation. Chronic renal failure, stage III Pulmonary embolism bilaterally status post EKOS, 03/14/2022 Pulmonary hypertension Moderate mitral and tricuspid regurgitation Hypothyroidism Hypertension, history of Hyperlipidemia Osteoarthritis with history right knee placement in July 2022. Morbid obesity, BMI 46 Sacral pressure ulcer stage II present on admission. Anxiety Hospital Course:This is a pleasant 73-year-old female recently discharged on 10/28/[address] [facility] subacute rehab after a lengthy inpatient hospitalization with atrial fibrillation, CHF, bilateral pleural effusions and multiple other medical issues. For specific details please refer to EHR. Patient was transported to the ER with complaints of shortness of breath. Reports she had a stressful morning, while attempting to persuade staff to order nystatin powder instead of cream for her sore bottom/stage I sacral wound. Apparently she had a verbal altercation, developed shortness of breath afterwards. Reports she has been spending too much time sitting in her wheelchair.Denies chest pain, palpitations. Denies lightheadedness dizziness or focal deficits. Denies nausea vomiting or diarrhea. Denies abdominal pain. Denies syncope. Troponin 0.118, 0.110 0.110. EKG reporting atrial fibrillation, nonspecific ST segment and T-wave changes. Chest x-ray reporting limited inspiration with basilar atelectasis favored over pneumonia. Afebrile, normal WBC, maintaining O2 sats of 99% on room air. Respiratory rate 14-16. Received Lasix IV push in the ER, potassium level up to 5, KDur placed on hold. 11/11/2023 underwent cardiac catheterization on 11/09/2023 Reporting normal coronary arteries, elevated left-sided filling pressure, with recommendations of increasing diuretics and considering cardioversion with aggressive risk factor modification. Telemetry atrial fibrillation with controlled ventricular rate. Scheduled for RICO and cardioversion today. Afebrile, maintaining O2 sats in the high 90s on room air. Statins discontinued secondary to elevated LFTs. Metoprolol discontinued secondary to pauses. 11/12/23 Completed successful RICO and cardioversion yesterday. Remains in sinus rhythm.Maintained on amiodarone, anticoagulated with Eliquis. Diuresing well on Lasix IV push. BUN 32, creatinine 1.06. Reports her lower extremities'chronic edema feels tighter this morning. Low-dose Lopressor resumed as per cardiology. Currently maintaining O2 sats of 94% on room air. Denies chest pain, palpitations or increasing shortness of breath. 11/13/2023 returned and atrial fibrillation with controlled ventricular rate yesterday, beta jorge alberto dose increased. Denies chest pain, palpitations or increased shortness of breath. Maintaining O2 sats in the high 90s on 2 L nasal cannula. Patient has been cleared for discharge by cardiology. Patient will be discharged to [facility] subacute rehab today in a stable condition with guarded prognosis. The impression and plan of care has been dictated as directed. : I performed a history and examination of this patient, discussed the same with the dictator. I agree with the dictator's note ,documented as a scribe. Any additional findings or plans will be noted. Patient Condition at Discharge: Stable Plan - Discharge Summary Discharge Rx Participant: Yes New Discharge Prescriptions: New Amiodarone [Cordarone] 200 mg PO DAILY tab Nitroglycerin Sl Tabs [Nitrostat] 0.4 mg SUBLINGUAL Q5M PRN tab PRN Reason: Chest Pain Calcium Carbonate [Tums] 500 mg PO QID PRN tab PRN Reason: Heartburn Acetaminophen Tab [Tylenol] 650 mg PO Q4HR PRN tab PRN Reason: Fever And/ Or Pain Nystatin 100,000 Unit/gm Powd [Mycostatin Powder] 1 applic TOPICAL BID each Metoprolol Tartrate [Lopressor] 25 mg PO BID tab Continue Levothyroxine Sodium [Synthroid] 88 mcg PO DAILY@0600 Magnesium 250 mg PO DAILY@0800 bisacodyL [Dulcolax] 10 mg RECTAL DAILY PRN PRN Reason: Constipation Na Phos,M-B/Na Phos,Di-Ba [Fleet Adult] 133 ml RECTAL DAILY PRN PRN Reason: Constipation Magnesium Hydroxide [Milk of Magnesia Concentrate] 7,200 mg PO DAILY PRN PRN Reason: Constipation Acetaminophen [Tylenol 8 Hour] 650 mg PO Q4H PRN PRN Reason: GENERAL DISCOMFORT INSULIN LISPRO (HumaLOG) [humaLOG] See Protocol SQ ACHS Potassium Chloride ER [K-Dur 20] 20 meq PO DAILY@1700 Melatonin 5 mg PO HS@2100 Dapagliflozin Propanediol [Farxiga] 10 mg PO DAILY@0600 Apixaban [Eliquis] 5 mg PO BID@0800,1700 Albuterol Sulfate [Ventolin HFA] 1 puff INHALATION RT-QID PRN PRN Reason: Shortness Of Breath Ipratropium-Albuterol Nebulize [Duoneb 0.5 mg-3 mg/3 ml Soln] 3 ml INHALATION RT-Q6H Furosemide [Lasix] 60 mg PO BID@0600,1400 guaiFENesin [Mucinex] 600 mg PO BID@0800,2100 Docusate [Colace] 100 mg PO BID@0800,1700 polyethylene glycoL 3350 [Miralax] 17 gm PO DAILY@0800 Discontinued Amiodarone [Cordarone] 200 mg PO BID@0800,1700 Atorvastatin [Lipitor] 80 mg PO HS@2100 Calcium Carbonate [Tums] 1,000 mg PO TID PRN tab PRN Reason: Heartburn Metoprolol Tartrate [Lopressor] 150 mg PO BID@0800,2100 Digoxin [Lanoxin] 125 mcg PO DAILY@0600 Discharge Medication List Apixaban [Eliquis] 5 mg PO BID@0800,1700 09/09/22 [History] Levothyroxine Sodium [Synthroid] 88 mcg PO DAILY@0600 09/09/22 [History] Magnesium 250 mg PO DAILY@0800 09/26/23 [History] Acetaminophen [Tylenol 8 Hour] 650 mg PO Q4H PRN 11/07/23 [History] Albuterol Sulfate [Ventolin HFA] 1 puff INHALATION RT-QID PRN 11/07/23 [History] Dapagliflozin Propanediol [Farxiga] 10 mg PO DAILY@0600 11/07/23 [History] Docusate [Colace] 100 mg PO BID@0800,1700 11/07/23 [History] Furosemide [Lasix] 60 mg PO BID@0600,1400 11/07/23 [History] INSULIN LISPRO (HumaLOG) [humaLOG] See Protocol SQ ACHS 11/07/23 [History] Ipratropium-Albuterol Nebulize [Duoneb 0.5 mg-3 mg/3 ml Soln] 3 ml INHALATION RT-Q6H 11/07/23 [History] Magnesium Hydroxide [Milk of Magnesia Concentrate] 7,200 mg PO DAILY PRN 11/07/23 [History] Melatonin 5 mg PO HS@2100 11/07/23 [History] Na Phos,M-B/Na Phos,Di-Ba [Fleet Adult] 133 ml RECTAL DAILY PRN 11/07/23 [History] Potassium Chloride ER [K-Dur 20] 20 meq PO DAILY@1700 11/07/23 [History] bisacodyL [Dulcolax] 10 mg RECTAL DAILY PRN 11/07/23 [History] guaiFENesin [Mucinex] 600 mg PO BID@0800,2100 11/07/23 [History] polyethylene glycoL 3350 [Miralax] 17 gm PO DAILY@0800 11/07/23 [History] Nystatin 100,000 Unit/gm Powd [Mycostatin Powder] 1 applic TOPICAL BID each 11/08/23 [Rx] Acetaminophen Tab [Tylenol] 650 mg PO Q4HR PRN tab 11/13/23 [Rx] Amiodarone [Cordarone] 200 mg PO DAILY tab 11/13/23 [Rx] Calcium Carbonate [Tums] 500 mg PO QID PRN tab 11/13/23 [Rx] Metoprolol Tartrate [Lopressor] 25 mg PO BID tab 11/13/23 [Rx] Nitroglycerin Sl Tabs [Nitrostat] 0.4 mg SUBLINGUAL Q5M PRN tab 11/13/23 [Rx] Follow up Appointment(s)/Referral(s): Regulo Greene DO [Primary Care Provider] - 1 Week (after dc from [facility]) Activity/Diet/Wound Care/Special Instructions: [facility]:Javon cbc,BMP in 3 days 2lNC O2 confirm Cardiology F/U apt. prior to dc Specialty bed Stage II sacral Roho cushion for wheelchair Duoderm change every 5 days and prn Discharge Disposition: TRANSFER TO SNF/ECF
[2023-11-13 11:41] LABS: Glucose,Whole Blood 107 mg/dL (70-110)
[2023-11-13 13:17] VITALS: BMI 52.0
--- NOTE | 2023-11-13 13:50 | P.PN ---
Subjective Progress Note Date: 11/13/23 HISTORY OF PRESENT ILLNESS: This is a 73-year-old female with a past medical history significant for pulmonary embolism, paroxysmal atrial fibrillation, hypertension, hyperlipidemia, congestive heart failure, and pulmonary hypertension. Patient follows in the office with Dr. Sylvester. We have been asked to see the patient in consultation for congestive heart failure. Patient examined at the bedside. Patient reports having lower back pain on the left side. She denies any chest pain or pressure. She denies any shortness of breath. * EKG reveals atrial fibrillation with ST depression noted in V3V6 and T-wave inversions inferiorly * Chest xray limited inspiration with basilar atelectasis favored over pneumonia. * Laboratory data: BUN 71. Creatinine 1.09. ProBNP 13,800. Troponin 0.118. 0.110. 0.110. * Current home cardiac medications include digoxin 125 g daily, Lipitor 80 mg at night, amiodarone 200mg twice a day, Eliquis 5 mg twice a day, Lasix 60 mg twice a day, metoprolol tartrate 150 mg twice a day * Most recent echocardiogram obtained in September 2023 revealed ejection fraction 45-50% 11/10 Yesterday, patient underwent cardiac catheterization with Dr. Slyvester which revealed normal coronary arteries, elevated left-sided filling pressures. Plan for aggressive risk factor modification and increase diuretics. Patient complains of feeling fatigued. She states she has no appetite. Lower extremity edema is improved. Yesterday digoxin was discontinued and metoprolol was decreased to 50 mg from 150. Patient is having pauses up to 3.6 seconds and remains in atrial fibrillation. Patient has been afebrile, heart rate in the 50s, blood pressure 93/54, pulse ox 95% on room air. Repeat blood work reveals sodium 134, potassium 3.2, BUN 44 creatinine 0.98. 11/11 Patient is going for RICO and cardioversion with Dr. Sylvester today. Telemetry has remained in atrial fibrillation with controlled rate. 11/12 Patient underwent successful RICO and cardioversion yesterday and remains in sinus rhythm. Heart rate is in the 70s, blood pressure 104/68, pulse ox 95% on room air. Repeat blood work reveals hemoglobin 12.6. Sodium 136, potassium 4, chloride 95, CO2 35, BUN 32 and creatinine 1.06. 11/13 Patient has gone back into atrial fibrillation with controlled rate. She is currently on Lopressor 12.5 mg twice daily which will increase. She has been maintained on eliquis. PHYSICAL EXAM: VITAL SIGNS: Reviewed. GENERAL: Well-developed in no acute distress. HEENT: Head is normocephalic. Pupils are equal, round. Sclerae anicteric. Mucous membranes of the mouth are moist. Neck supple. No JVD or thyromegaly LUNGS: Respirations even and unlabored. Lungs essentially clear to auscultation bilaterally. HEART: Irregular rate and rhythm. S1 and S2 heard. ABDOMEN: Soft. Nondistended. Nontender. EXTREMITIES: Normal range of motion. No clubbing or cyanosis. Peripheral pulses intact. No lower extremity edema NEUROLOGIC: Awake and alert. Oriented x 3. ASSESSMENT: Shortness of breath Left lower back pain Non-STEMI s/p cardiac catheterization showing normal coronaries Abnormal EKG with ST depression in V3V6 and T-wave inversions inferiorly, appears new from previous EKG in the office in 2021 Chronic heart failure with mildly reduced EF, 45-50%, appears euvolemic, despite elevated BNP Recent hospitalization for acute hypoxic respiratory failure requiring mechanical ventilation History of right pleural effusion, status post thoracentesis on 10/08/2023 with removal of 1200 mL History of left pleural effusion, status post thoracentesis on 10/09/2023 with removal of 550 mL Paroxysmal atrial fibrillation History of pulmonary embolism with EKOS, February 2022 Hypertension Hyperlipidemia Hypothyroidism Pulmonary hypertension Morbid obesity: BMI 44.4 PLAN: Continue amiodarone to 200 mg daily Continue Eliquis Resume patient on Lopressor and increased to 25 mg twice daily Transition IV Lasix to oral home dose. Patient is cleared from cardiology for discharge home and may follow-up with Dr. Sylvester in 1 week. Nurse practitioner note has been reviewed by physician. Signing provider agrees with the documented findings, assessment, and plan of care. Objective - Vital Signs Vital signs: Vital Signs Temp 97.3 F L 11/13/23 08:00 Pulse 79 11/13/23 08:00 Resp 16 11/13/23 08:00 BP 108/68 11/13/23 08:00 Pulse Ox 98 11/13/23 08:00 FiO2 21 11/11/23 08:13 Intake & Output 11/12/23 11/13/23 11/13/23 18:59 06:59 18:59 Intake Total 358 Output Total 1100 Balance 358 -1100 Weight 142 kg Intake: Oral 358 Output: Urine 1100 Other: Voiding Method External Catheter External Catheter External Catheter # Bowel Movements 1 - Labs CBC & Chem 7: 11/12/23 06:45 11/12/23 06:45
--- NOTE | 2023-11-14 21:20 | CDI ---
Documentation Clarification Form Date: 11/14/2023 08:57:21 PM From: Alisha Alejandro Phone: Admit Date: 11/07/2023 01:04:00 PM Patient Name: Mariel Hidalgo V Visit Number: [id number] Discharge Date: 11/13/2023 02:10:00 PM ATTENTION: The Clinical Documentation Specialists (CDI) and [facility] Coding Staff appreciate your assistance in clarifying documentation. Please respond to the clarification below the line at the bottom and electronically sign. The CDI & [facility] Coding staff will review the response and follow-up if needed. Please note: Queries are made part of the Legal Health Record. If you have any questions, please contact the author of this message via ITS. Dr. Regulo Greene Your patient has respiratory failure per H&P. Based on this information and the findings below, is there an additional diagnosis that is clinically appropriate for this patient? History/Risk Factors: 73yo F, NSTEMI II,respiratory failure, chronic A. fib, CSHF, KIAH on CKD III, Hx PE, MR, TR, HLD, HTN, OA, hypothyroidism, morbid obesity,sacral PU stage II, anxiety, atelectasis Tobacco use: never Home oxygen: No Clinical Indicators: Vital signs: ED Note T 98.4 F MI 70 75 68 R 18- 20 BP102/63 109/66 122/78 O2 Sat 99 Treatment: Maintaining O2 sats in the high 90s on 2 L nasal cannula. Is there an additional diagnosis that is clinically appropriate for this patient? [ ] Acute Hypoxic Respiratory Failure (pO2 <60 mm Hg or SpO2 <91% on room air) [ ] Acute Hypercapnic Respiratory Failure (pCO2 >50 and pH <7.35) [ ] Acute on Chronic Respiratory Failure [ X] Chronic Respiratory Failure [ ] Other Diagnosis, please specify [ ] Unable to determine (Template Last Revised: January 2021) MTDD
== END 2023-11-13 14:10 | DRG 280 ==
LOC: EC 09:37 → 6NMEDSUR 13:04 → OBSVTOIN 13:04 → 3SCARD 14:25
PROVIDERS: ADMIT Family Medicine; ATTEND Family Medicine
PROC: B2111ZZ Fluoroscopy of Multiple Coronary Arteries using Low Osmolar Contrast (ICD-10-PCS; 2023-11-09)
PROC: 4A023N7 Measurement of Cardiac Sampling and Pressure, Left Heart, Percutaneous Approach (ICD-10-PCS; principal; 2023-11-09 07:30)
PROC: B24BZZ4 Ultrasonography of Heart with Aorta, Transesophageal (ICD-10-PCS; 2023-11-11)
PROC: 5A2204Z Restoration of Cardiac Rhythm, Single (ICD-10-PCS; 2023-11-11)
DX: I48.20 Chronic atrial fibrillation, unspecified (principal); I50.23 Acute on chronic systolic (congestive) heart failure; I21.A1 Myocardial infarction type 2; N17.9 Acute kidney failure, unspecified; I13.0 Hypertensive heart and chronic kidney disease with heart failure and stage 1 through stage 4 chronic kidney disease, or unspecified chronic kidney disease; J96.10 Chronic respiratory failure, unspecified whether with hypoxia or hypercapnia; Z68.42 Body mass index [BMI] 45.0-49.9, adult; I27.20 Pulmonary hypertension, unspecified; L89.152 Pressure ulcer of sacral region, stage 2; N18.30 Chronic kidney disease, stage 3 unspecified; E66.01 Morbid (severe) obesity due to excess calories; I08.1 Rheumatic disorders of both mitral and tricuspid valves; E03.9 Hypothyroidism, unspecified; E78.5 Hyperlipidemia, unspecified; M19.90 Unspecified osteoarthritis, unspecified site; G89.29 Other chronic pain; M54.50 Low back pain, unspecified; Z96.641 Presence of right artificial hip joint; F41.9 Anxiety disorder, unspecified; Z96.651 Presence of right artificial knee joint; Z74.01 Bed confinement status; Z79.01 Long term (current) use of anticoagulants; Z11.52 Encounter for screening for COVID-19; Z86.711 Personal history of pulmonary embolism; Z79.84 Long term (current) use of oral hypoglycemic drugs; Z79.890 Hormone replacement therapy; Z88.0 Allergy status to penicillin; Z91.018 Allergy to other foods; Z88.5 Allergy status to narcotic agent; Z79.899 Other long term (current) drug therapy; Z82.49 Family history of ischemic heart disease and other diseases of the circulatory system
CPT/HCPCS: 36415; 71046; 80048; 80053; 82247; 82550; 83036; 83735; 83880; 84450; 84460; 84484; 85025; 85610; 85730; 87636; 92960; 93005; 93312; 93320; 93325; 93458; 94640; 94760; 96374; 99285

== ENCOUNTER 2023-12-29 04:09 | Inpatient (IN) | payer MEDICARE, OTHER ==
--- NOTE | 2023-12-29 04:40 | ED ---
SOB HPI - General Chief Complaint: Shortness of Breath Stated Complaint: SOB Time Seen by Provider: 12/29/23 04:17 Source: patient, EMS Mode of arrival: EMS - History of Present Illness Initial Comments: This patient is 73-year-old woman sent here from halfway to have evaluation for shortness of breath. She states that it has awakened her from sleep for the past 3 nights. She states the breathing is worse when she tries to lie flat. She does have a little bit of a productive cough. She has noted leg swelling. MD Complaint: shortness of breath Onset/Timin -: days(s) Consistency: intermittent Improves With: upright position Worsens With: lying flat, coughing Known History Of: congestive heart failure Associated Symptoms: lower extremity pain (Lower extremity edema) Treatments Prior to Arrival: none - Related Data Home Oxygen Therapy: No Home Medications Medication Instructions Recorded Confirmed Apixaban [Eliquis] 5 mg PO BID@0800,1700 09/09/22 12/29/23 Magnesium 250 mg PO DAILY@0800 09/26/23 12/29/23 Albuterol Sulfate [Ventolin HFA] 1 puff INHALATION RT-QID PRN 11/07/23 12/29/23 Dapagliflozin Propanediol [Farxiga] 10 mg PO DAILY@0600 11/07/23 12/29/23 Docusate [Colace] 100 mg PO BID@0800,1700 11/07/23 12/29/23 Ipratropium-Albuterol Nebulize 3 ml INHALATION RT-Q6H@00,06,12,18 11/07/23 12/29/23 [Duoneb 0.5 mg-3 mg/3 ml Soln] Magnesium Hydroxide [Milk of 7,200 mg PO DAILY PRN 11/07/23 12/29/23 Magnesia Concentrate] Melatonin 5 mg PO HS@2100 11/07/23 12/29/23 Na Phos,M-B/Na Phos,Di-Ba [Fleet 133 ml RECTAL DAILY PRN 11/07/23 12/29/23 Adult] Potassium Chloride ER [K-Dur 20] 20 meq PO DAILY@1700 11/07/23 12/29/23 bisacodyL [Dulcolax] 10 mg RECTAL DAILY PRN 11/07/23 12/29/23 polyethylene glycoL 3350 [Miralax] 17 gm PO DAILY@0800 11/07/23 12/29/23 Furosemide [Lasix] 40 mg PO BID@0600,1400 12/29/23 12/29/23 Lidocaine 5% Patch [Lidoderm 5% 1 patch TOPICAL DAILY@0800 12/29/23 12/29/23 Patch] Midodrine HCl [ProAmatine] 10 mg PO BID@0600,1200 12/29/23 12/29/23 Nystatin 100,000 Unit/gm Powd 1 applic TOPICAL BID@0800,1700 12/29/23 12/29/23 [Mycostatin Powder] Previous Rx's Medication Instructions Recorded Acetaminophen Tab [Tylenol] 650 mg PO Q4HR PRN tab 11/13/23 Calcium Carbonate [Tums] 500 mg PO QID PRN tab 11/13/23 Nitroglycerin Sl Tabs [Nitrostat] 0.4 mg SUBLINGUAL Q5M PRN tab 11/13/23 ALPRAZolam [Xanax] 0.25 mg PO BID PRN #6 tab 01/02/24 Levothyroxine Sodium [Synthroid] 100 mcg PO DAILY@0630 tab 01/02/24 Metoprolol Tartrate [Lopressor] 50 mg PO BID@0800,1700 tab 01/02/24 Allergies Allergy/AdvReac Type Severity Reaction Status Date / Time Penicillins Allergy Rash/Hives Verified 12/29/23 14:16 @ Allergy testing site strawberry Allergy Rash/Hives Verified 12/29/23 14:16 all over body tramadol Allergy Unknown Verified 12/29/23 14:16 Review of Systems ROS Statement: Those systems with pertinent positive or pertinent negative responses have been documented in the HPI. ROS Other: All systems not noted in ROS Statement are negative. Constitutional: Denies: fever, chills Respiratory: Reports: cough, dyspnea. Denies: wheezes Cardiovascular: Reports: orthopnea, edema. Denies: chest pain, palpitations, syncope Gastrointestinal: Denies: abdominal pain, vomiting, diarrhea Genitourinary: Denies: dysuria, hematuria Musculoskeletal: Denies: back pain Skin: Denies: rash Neurological: Denies: headache, weakness Past Medical History Past Medical History: Atrial Fibrillation, Hyperlipidemia, Hypertension, Osteoarthritis (OA), Pulmonary Embolus (PE), Thyroid Disorder Additional Past Medical History / Comment(s): PE bilateral with EKOS 02/2022 History of Any Multi-Drug Resistant Organisms: None Reported Past Surgical History: Cholecystectomy, Hysterectomy Additional Past Surgical History / Comment(s): Pt states she had a rt hip replacement 20 years ago, right knee replacement jul 2022 Past Anesthesia/Blood Transfusion Reactions: No Reported Reaction Past Psychological History: No Psychological Hx Reported Smoking Status: Never smoker Past Alcohol Use History: None Reported Past Drug Use History: None Reported - Past Family History Father Family Medical History: AICD/Pacemaker Additional Family Medical History / Comment(s): cabg at 84 Mother Additional Family Medical History / Comment(s): non hodgkins lymphoma General Exam General appearance: alert, in no apparent distress Head exam: Present: atraumatic, normocephalic Eye exam: Present: normal appearance. Absent: scleral icterus, conjunctival injection Neck exam: Present: normal inspection Respiratory exam: Present: respiratory distress (Mild tachypnea), rales (At the bases bilaterally). Absent: wheezes, rhonchi, stridor, accessory muscle use Cardiovascular Exam: Present: normal rhythm, tachycardia, normal heart sounds. Absent: systolic murmur, diastolic murmur, rubs, gallop GI/Abdominal exam: Present: soft. Absent: distended, tenderness, guarding, rebound, rigid, mass Extremities exam: Present: normal inspection, normal capillary refill, pedal edema. Absent: calf tenderness Back exam: Present: normal inspection Neurological exam: Present: alert Skin exam: Present: warm, dry, intact, normal color. Absent: rash Course Vital Signs 12/29/23 12/29/23 12/29/23 04:14 04:30 05:00 Temperature 97.6 F Pulse Rate 114 H 117 H 110 H Respiratory 24 15 17 Rate Blood Pressure 88/73 83/63 99/82 O2 Sat by Pulse 97 98 98 Oximetry 12/29/23 12/29/23 12/29/23 05:54 06:41 08:02 Temperature Pulse Rate 103 H 105 H 97 Respiratory 24 23 18 Rate Blood Pressure 106/80 99/87 105/83 O2 Sat by Pulse 99 100 97 Oximetry 12/29/23 12/29/23 10:42 12:40 Temperature Pulse Rate 98 105 H Respiratory 18 18 Rate Blood Pressure 98/75 97/69 O2 Sat by Pulse 99 98 Oximetry Medical Decision Making - Medical Decision Making The patient had chest x-ray which I interpreted as showing vascular congestion consistent with congestive heart failure Was pt. sent in by a medical professional or institution (JEFFY Vaca, WAREHOUSE LOGISTICS COORDINATOR, urgent care, hospital, or halfway...) When possible be specific @ -[No] Did you speak to anyone other than the patient for history (EMS, parent, family, police, friend...)? What history was obtained from this source @ -[No] Did you review nursing and triage notes (agree or disagree)? Why? @ -[I reviewed and agree with nursing and triage notes] Were old charts reviewed (outside hosp., previous admission, EMS record, old EKG, old radiological studies, urgent care reports/EKG's, halfway records)? Report findings @ -[No old charts were reviewed] Differential Diagnosis (chest pain, altered mental status, abdominal pain women, abdominal pain men, vaginal bleeding, weakness, fever, dyspnea, syncope, headache, dizziness, GI bleed, back pain, seizure, CVA, palpatations, mental health, musculoskeletal)? @ -[n differential Dyspnea: Coronary syndrome, arrhythmia, tamponade, asthma, COPD, pulmonary embolism, pneumonia, pneumothorax, pulmonary effusion, anaphylaxis, diabetic ketoacidosis, flailed chest, pulmonary contusion, diaphragmatic rupture, anemia, neuromuscular, this is not meant to be an all-inclusive list. EKG interpreted by me (3pts min.). @ -[I interpreted as above] X-rays interpreted by me (1pt min.). @ -[I interpreted as above CT interpreted by me (1pt min.). @ -[None done] U/S interpreted by me (1pt. min.). @ -[None done] What testing was considered but not performed or refused? (CT, X-rays, U/S, labs)? Why? @ -[None] What meds were considered but not given or refused? Why? @ -[None] Did you discuss the management of the patient with other professionals (professionals i.e. JEFFY Vaca, WAREHOUSE LOGISTICS COORDINATOR, lab, RT, psych nurse, director social, auto self service station attendant, teacher, patient safety officer, case filler)? Give summary @ -[Case discussed with admitting physician and treatment recommendations are incorporated Was smoking cessation discussed for >3mins.? @ -[No] Was critical care preformed (if so, how long)? @ -[No] Were there social determinants of health that impacted care today? How? (Homelessness, low income, unemployed, alcoholism, drug addiction, transportation, low edu. Level, literacy, decrease access to med. care, halfway, rehab)? @ -[No] Was there de-escalation of care discussed even if they declined (Discuss DNR or withdrawal of care, Hospice)? DNR status @ -[No] What co-morbidities impacted this encounter? (DM, HTN, Smoking, COPD, CAD, Cancer, CVA, ARF, Chemo, Hep., AIDS, mental health diagnosis, sleep apnea, morbid obesity)? @ -[None] Was patient admitted / discharged? Hospital course, mention meds given and route, prescriptions, significant lab abnormalities, going to OR and other pertinent info. @ -[Patient is 73-year-old woman presenting with dyspnea and found to have exacerbation of congestive heart failure. Patient will be admitted for further diuresis and evaluation Undiagnosed new problem with uncertain prognosis? @ -[No] Drug Therapy requiring intensive monitoring for toxicity (Heparin, Nitro, Insulin, Cardizem)? @ -[No] Were any procedures done? @ -[No] Diagnosis/symptom? @ -[Acute exacerbation of congestive heart failure Acute, or Chronic, or Acute on Chronic? @ -[Acute Uncomplicated (without systemic symptoms) or Complicated (systemic symptoms)? @ -[default] Side effects of treatment? @ -[No] Exacerbation, Progression, or Severe Exacerbation? @ -[No] Poses a threat to life or bodily function? How? (Chest pain, USA, GA, pneumonia, PE, COPD, DKA, ARF, appy, cholecystitis, CVA, Diverticulitis, Homicidal, Suicidal, threat to staff... and all critical care pts) @ -[Yes, untreated congestive heart failure may progress to include respiratory failure and - Lab Data Result diagrams: 12/30/23 05:16 01/02/24 05:50 Lab Results 12/29/23 12/29/23 12/29/23 Range/Units 05:29 05:29 05:29 WBC 7.6 (3.8-10.6) k/uL RBC 4.00 (3.80-5.40) m/uL Hgb 13.8 (11.4-16.0) gm/dL Hct 41.3 (34.0-46.0) % MCV 103.3 H (80.0-100.0) fL MCH 34.4 (25.0-35.0) pg MCHC 33.3 (31.0-37.0) g/dL RDW 19.2 H (11.5-15.5) % Plt Count 278 (150-450) k/uL MPV 8.7 Neutrophils % 69 % Lymphocytes % 20 % Monocytes % 6 % Eosinophils % 3 % Basophils % 1 % Neutrophils # 5.3 (1.3-7.7) k/uL Lymphocytes # 1.5 (1.0-4.8) k/uL Monocytes # 0.4 (0-1.0) k/uL Eosinophils # 0.2 (0-0.7) k/uL Basophils # 0.1 (0-0.2) k/uL Manual Slide Review Performed Polychromasia Present Hypochromasia Slight Anisocytosis Slight Anisocytosis (manual) Present Macrocytosis Marked A PT 14.2 H (10.0-12.5) sec INR 1.4 H (<1.2) APTT 28.8 (22.0-30.0) sec Sodium 137 (137-145) mmol/L Potassium 4.2 (3.5-5.1) mmol/L Chloride 104 (98-107) mmol/L Carbon Dioxide 25 (22-30) mmol/L Anion Gap 8 mmol/L BUN 26 H (7-17) mg/dL Creatinine 1.53 H (0.52-1.04) mg/dL Est GFR (CKD-EPI)AfAm 38 (>60 ml/min/1.73 sqM) Est GFR (CKD-EPI)NonAf 33 (>60 ml/min/1.73 sqM) Glucose 107 H (74-99) mg/dL Plasma Lactic Acid Gabino (0.7-2.0) mmol/L Calcium 9.5 (8.4-10.2) mg/dL Total Bilirubin 1.5 H (0.2-1.3) mg/dL AST 37 H (14-36) U/L ALT 20 (4-34) U/L Alkaline Phosphatase 108 (38-126) U/L Troponin I (0.000-0.034) ng/mL NT-Pro-B Natriuret Pep 92690 pg/mL Total Protein 6.1 L (6.3-8.2) g/dL Albumin 3.6 (3.5-5.0) g/dL 12/29/23 12/29/23 Range/Units 05:29 05:29 WBC (3.8-10.6) k/uL RBC (3.80-5.40) m/uL Hgb (11.4-16.0) gm/dL Hct (34.0-46.0) % MCV (80.0-100.0) fL MCH (25.0-35.0) pg MCHC (31.0-37.0) g/dL RDW (11.5-15.5) % Plt Count (150-450) k/uL MPV Neutrophils % % Lymphocytes % % Monocytes % % Eosinophils % % Basophils % % Neutrophils # (1.3-7.7) k/uL Lymphocytes # (1.0-4.8) k/uL Monocytes # (0-1.0) k/uL Eosinophils # (0-0.7) k/uL Basophils # (0-0.2) k/uL Manual Slide Review Polychromasia Hypochromasia Anisocytosis Anisocytosis (manual) Macrocytosis PT (10.0-12.5) sec INR (<1.2) APTT (22.0-30.0) sec Sodium (137-145) mmol/L Potassium (3.5-5.1) mmol/L Chloride (98-107) mmol/L Carbon Dioxide (22-30) mmol/L Anion Gap mmol/L BUN (7-17) mg/dL Creatinine (0.52-1.04) mg/dL Est GFR (CKD-EPI)AfAm (>60 ml/min/1.73 sqM) Est GFR (CKD-EPI)NonAf (>60 ml/min/1.73 sqM) Glucose (74-99) mg/dL Plasma Lactic Acid Gabino 3.4 H* (0.7-2.0) mmol/L Calcium (8.4-10.2) mg/dL Total Bilirubin (0.2-1.3) mg/dL AST (14-36) U/L ALT (4-34) U/L Alkaline Phosphatase (38-126) U/L Troponin I 0.013 (0.000-0.034) ng/mL NT-Pro-B Natriuret Pep pg/mL Total Protein (6.3-8.2) g/dL Albumin (3.5-5.0) g/dL Disposition Clinical Impression: CHF (congestive heart failure) Disposition: ADMITTED IP TO THIS HOSP Condition: Stable Is patient prescribed a controlled substance at d/c from ED?: No
--- NOTE | 2023-12-29 05:49 | XR ---
EXAMINATION TYPE: XR chest 1V portable DATE OF EXAM: 12/29/2023 COMPARISON: Prior chest x-ray November 07, 2023 HISTORY: Dyspnea TECHNIQUE: Single frontal view of the chest is obtained. FINDINGS: There is mild cardiomegaly with mild to moderate central vascular congestion. No pleural e ffusion or pneumothorax seen bilaterally. The osseous structures are intact. IMPRESSION: Findings consistent with fluid overload state/CHF exacerbation are felt present as detail ed above. Correlate clinically.
[2023-12-29 05:57] LABS: ALT 20 U/L (4-34); AST 37 U/L (14-36); African American GFR (CKD) 38 (>60 ml/min/1.73 sqM); Albumin 3.6 g/dL (3.5-5.0); Alkaline Phosphatase 108 U/L (38-126); Anion Gap 8 mmol/L; Blood Urea Nitrogen 26 mg/dL (7-17); Calcium 9.5 mg/dL (8.4-10.2); Carbon Dioxide 25 mmol/L (22-30); Chloride 104 mmol/L (98-107); Glucose 107 mg/dL (74-99); INR 1.4 (<1.2); Non-African American GFR(CKD) 33 (>60 ml/min/1.73 sqM); Partial Thromboplastin Time 28.8 sec (22.0-30.0); Potassium 4.2 mmol/L (3.5-5.1); Prothrombin Time 14.2 sec (10.0-12.5); Sodium 137 mmol/L (137-145); Total Bilirubin 1.5 mg/dL (0.2-1.3); Total Protein 6.1 g/dL (6.3-8.2)
[2023-12-29 06:04] LABS: NT-Pro-B-Type Natriuretic Pept 14000 pg/mL
[2023-12-29] MEDS: FUROSEMIDE 10 MG/ML 4 ML VIAL IV SCH (06:06)
[2023-12-29 06:11] LABS: Anisocytosis Slight; Basophils # (A) 0.1 k/uL (0-0.2); Basophils % (A) 1 %; Eosinophils # (A) 0.2 k/uL (0-0.7); Eosinophils % (A) 3 %; HCT 41.3 % (34.0-46.0); HGB 13.8 gm/dL (11.4-16.0); Hypochromasia Slight; Lymphocytes # (A) 1.5 k/uL (1.0-4.8); Lymphocytes % (A) 20 %; MCH 34.4 pg (25.0-35.0); MCHC 33.3 g/dL (31.0-37.0); MCV 103.3 fL (80.0-100.0); Macrocytosis Marked; Mean Platelet Volume 8.7; Monocytes # (A) 0.4 k/uL (0-1.0); Monocytes % (A) 6 %; Neutrophils # (A) 5.3 k/uL (1.3-7.7); Neutrophils % (A) 69 %; Platelet Count 278 k/uL (150-450); RDW 19.2 % (11.5-15.5); WBC 7.6 k/uL (3.8-10.6)
[2023-12-29 07:58] LABS: Polychromasia Present
[2023-12-29 07:59] LABS: Anisocytosis (M) Present
[2023-12-29] MEDS ORDERED: ZINC OXIDE PASTE (Z-GUARD) 1 APPLIC TOPICAL PRN (16:08)
--- NOTE | 2023-12-29 16:47 | P.HPIM ---
History of Present Illness H&P Date: 12/29/23 Chief Complaint: Shortness of breath 73-year-old woman, history of hypertension, hyperlipidemia, hypothyroidism, atrial fibrillation and PE, sent here from [facility] to have evaluation for shortness of breath. She states that it has awakened her from sleep for the past 3 nights. She states the breathing is worse when she tries to lie flat. She does have a little bit of a productive cough. She has noted leg swelling. Blood work completed in the ED reveals a WBC of 7.6, hemoglobin of 13.8 and platelet count of 278, sodium 137, potassium 4.2, BUN/creatinine of 26/1.53, lactic acid elevated at 3.4 with repeat lactic acid of 1.9, total bilirubin elevated at 1.5 AST elevated at 37, troponin at 0.013, BNP elevated at 14,000 Chest x-ray reveals moderate central venous congestion consistent with fluid overload/CHF exacerbation Review of Systems REVIEW OF SYSTEMS: CONSTITUTIONAL: No fever, no malaise, no fatigue. HEENT: No recent visual problems or hearing problems. Denied any sore throat. CARDIOVASCULAR: No chest pain, orthopnea, PND, no palpitations, no syncope. PULMONARY: No shortness of breath, no cough, no hemoptysis. GASTROINTESTINAL: No diarrhea, no nausea, no vomiting, no abdominal pain. NEUROLOGICAL: No headaches, no weakness, no numbness. HEMATOLOGICAL: Denies any bleeding or petechiae. GENITOURINARY: Denies any burning micturition, frequency, or urgency. MUSCULOSKELETAL/RHEUMATOLOGICAL: Denies any joint pain, swelling, or any muscle pain. ENDOCRINE: Denies any polyuria or polydipsia. The rest of the 14-point review of systems is negative. Past Medical History Past Medical History: Atrial Fibrillation, Hyperlipidemia, Hypertension, Osteoarthritis (OA), Pulmonary Embolus (PE), Thyroid Disorder Additional Past Medical History / Comment(s): PE bilateral with EKOS 02/2022 History of Any Multi-Drug Resistant Organisms: None Reported Past Surgical History: Cholecystectomy, Hysterectomy Additional Past Surgical History / Comment(s): Pt states she had a rt hip replacement 20 years ago, right knee replacement jul 2022 Past Anesthesia/Blood Transfusion Reactions: No Reported Reaction Past Psychological History: No Psychological Hx Reported Smoking Status: Never smoker Past Alcohol Use History: None Reported Past Drug Use History: None Reported - Past Family History Father Family Medical History: AICD/Pacemaker Additional Family Medical History / Comment(s): cabg at 84 Mother Additional Family Medical History / Comment(s): non hodgkins lymphoma Medications and Allergies Home Medications Medication Instructions Recorded Confirmed Type Apixaban [Eliquis] 5 mg PO BID@0800,1700 09/09/22 12/29/23 History Levothyroxine Sodium [Synthroid] 88 mcg PO DAILY@0600 09/09/22 12/29/23 History Magnesium 250 mg PO DAILY@0800 09/26/23 12/29/23 History Albuterol Sulfate [Ventolin HFA] 1 puff INHALATION RT-QID PRN 11/07/23 12/29/23 History Dapagliflozin Propanediol [Farxiga] 10 mg PO DAILY@0600 11/07/23 12/29/23 History Docusate [Colace] 100 mg PO BID@0800,1700 11/07/23 12/29/23 History Ipratropium-Albuterol Nebulize 3 ml INHALATION RT-Q6H@00,06,12,18 11/07/23 12/29/23 History [Duoneb 0.5 mg-3 mg/3 ml Soln] Magnesium Hydroxide [Milk of 7,200 mg PO DAILY PRN 11/07/23 12/29/23 History Magnesia Concentrate] Melatonin 5 mg PO HS@209911/07/23 12/29/23 History Na Phos,M-B/Na Phos,Di-Ba [Fleet 133 ml RECTAL DAILY PRN 11/07/23 12/29/23 History Adult] Potassium Chloride ER [K-Dur 20] 20 meq PO DAILY@1700 11/07/23 12/29/23 History bisacodyL [Dulcolax] 10 mg RECTAL DAILY PRN 11/07/23 12/29/23 History guaiFENesin [Mucinex] 600 mg PO BID@0800,209911/07/23 12/29/23 History polyethylene glycoL 3350 [Miralax] 17 gm PO DAILY@0800 11/07/23 12/29/23 History Acetaminophen Tab [Tylenol] 650 mg PO Q4HR PRN tab 11/13/23 12/29/23 Rx Calcium Carbonate [Tums] 500 mg PO QID PRN tab 11/13/23 12/29/23 Rx Nitroglycerin Sl Tabs [Nitrostat] 0.4 mg SUBLINGUAL Q5M PRN tab 11/13/23 12/29/23 Rx ALPRAZolam [Xanax] 0.25 mg PO BID PRN 12/29/23 12/29/23 History Amiodarone [Cordarone] 200 mg PO DAILY@0900 12/29/23 12/29/23 History Furosemide [Lasix] 40 mg PO BID@0600,1400 12/29/23 12/29/23 History Lidocaine 5% Patch [Lidoderm] 1 patch TOPICAL DAILY@0800 12/29/23 12/29/23 History Metoprolol Tartrate [Lopressor] 25 mg PO BID@0800,1700 12/29/23 12/29/23 History Midodrine HCl [ProAmatine] 10 mg PO BID@0600,1200 12/29/23 12/29/23 History Nystatin 100,000 Unit/gm Powd 1 applic TOPICAL BID@0800,1700 12/29/23 12/29/23 History [Mycostatin Powder] Allergies Allergy/AdvReac Type Severity Reaction Status Date / Time Penicillins Allergy Rash/Hives Verified 12/29/23 14:16 @ Allergy testing site strawberry Allergy Rash/Hives Verified 12/29/23 14:16 all over body tramadol Allergy Unknown Verified 12/29/23 14:16 Physical Exam Vitals: Vital Signs Temp Pulse Resp BP Pulse Ox 12/29/23 10:42 98 18 98/75 99 12/29/23 08:02 97 18 105/83 97 12/29/23 06:41 105 H 23 99/87 100 12/29/23 05:54 103 H 24 106/80 99 12/29/23 05:00 110 H 17 99/82 98 12/29/23 04:30 117 H 15 83/63 98 12/29/23 04:14 97.6 F 114 H 24 88/73 97 Intake and Output 12/28/23 12/29/23 12/29/23 22:59 06:59 14:59 Other: Weight 123.831 kg General appearance: alert, in no apparent distress Head exam: Present: atraumatic, normocephalic Eye exam: Present: normal appearance. Absent: scleral icterus, conjunctival injection Neck exam: Present: normal inspection Respiratory exam: Present: respiratory distress (Mild tachypnea), rales (At the bases bilaterally). Absent: wheezes, rhonchi, stridor, accessory muscle use Cardiovascular Exam: Present: normal rhythm, tachycardia, normal heart sounds. Absent: systolic murmur, diastolic murmur, rubs, gallop GI/Abdominal exam: Present: soft. Absent: distended, tenderness, guarding, rebound, rigid, mass Extremities exam: Present: normal inspection, normal capillary refill, pedal edema. Absent: calf tenderness Back exam: Present: normal inspection Neurological exam: Present: alert Skin exam: Present: warm, dry, intact, normal color. Absent: rash Results CBC & Chem 7: 12/29/23 05:29 12/29/23 05:29 Labs: Abnormal Lab Results - Last 24 Hours (Table) 12/29/23 12/29/23 12/29/23 Range/Units 05:29 05:29 05:29 MCV 103.3 H (80.0-100.0) fL RDW 19.2 H (11.5-15.5) % Macrocytosis Marked A PT 14.2 H (10.0-12.5) sec INR 1.4 H (<1.2) BUN 26 H (7-17) mg/dL Creatinine 1.53 H (0.52-1.04) mg/dL Glucose 107 H (74-99) mg/dL Plasma Lactic Acid Gabino (0.7-2.0) mmol/L Total Bilirubin 1.5 H (0.2-1.3) mg/dL AST 37 H (14-36) U/L Total Protein 6.1 L (6.3-8.2) g/dL 12/29/23 Range/Units 05:29 MCV (80.0-100.0) fL RDW (11.5-15.5) % Macrocytosis PT (10.0-12.5) sec INR (<1.2) BUN (7-17) mg/dL Creatinine (0.52-1.04) mg/dL Glucose (74-99) mg/dL Plasma Lactic Acid Gabino 3.4 H* (0.7-2.0) mmol/L Total Bilirubin (0.2-1.3) mg/dL AST (14-36) U/L Total Protein (6.3-8.2) g/dL Assessment and Plan Assessment: 1. Acute exacerbation CHF -Patient is placed on Lasix 40 mg IV every 12 hours; will monitor strict AMISH's, daily weights, low-salt and fluid restricted diet -- 2D echo Continue--home dose of Farxiga 10 mg daily 2. Acute renal injury; we will hold off on fluid resuscitation given CHF exacerbation; will monitor strict AMISH's, daily weights, renal function electrolytes ; avoid nephrotoxins and hypotension 3. Lactic acidosis; lactic acid level of 3.9 upon admission; trending down to 1.9 4. Elevated liver enzymes/hyperbilirubinemia; possible passive venous congestion; will monitor liver enzymes; initiate further workup if continuing to trend up 5. Hypertension; metoprolol 25 mg twice daily 6. Hyperlipidemia; currently not on any statin therapy 7. Hypothyroidism; continue home dose of levothyroxine 88 mcg daily 8. Atrial fibrillation; patient remains rate controlled on metoprolol 25 mg twice daily, amiodarone 200 mg daily; anticoagulated with apixaban DVT prophylaxis; systemic anticoagulation CODE STATUS; full code
[2023-12-29] MEDS: POTASSIUM CHLORIDE ER 20 MEQ TAB.ER PO SCH (17:21)
[2023-12-29] MEDS: METOPROLOL TARTRATE 25 MG TAB PO SCH (17:21)
[2023-12-29] MEDS: APIXABAN 5 MG TAB PO SCH (17:21)
[2023-12-29] MEDS: DOCUSATE 100 MG CAP PO SCH (17:21)
[2023-12-29] MEDS: ALPRAZolam 0.25 MG TAB PO PRN (20:25)
[2023-12-29] MEDS: MELATONIN 5 MG TABLET PO SCH (20:25)
[2023-12-29] MEDS: IPRATROPIUM-ALBUTEROL 3 ML NEB INHALATION SCH (21:08)
[2023-12-30] MEDS: ACETAMINOPHEN TAB 325 MG TAB PO PRN (00:52)
[2023-12-30] MEDS: LEVOTHYROXINE 88 MCG TAB PO SCH (05:42)
[2023-12-30] MEDS: DAPAGLIFLOZIN PROPANEDIOL 10 MG TABLET PO SCH (05:42)
[2023-12-30] MEDS: MIDODRINE 5 MG TAB PO SCH (05:42)
[2023-12-30] MEDS: polyethylene glycoL 3350 17 GM POWD.PACK PO SCH (07:43)
[2023-12-30] MEDS: MAGNESIUM OXIDE 400 MG TAB PO SCH (07:43)
[2023-12-30] MEDS: AMIODARONE 200 MG TAB PO SCH (07:43)
[2023-12-30 08:42] LABS: HCT 38.7 % (37.2-46.3); MCH 32.6 pg (27.0-32.0); MCV 105.2 FL (80.0-97.0); Mean Platelet Volume 10.1 FL (9.5-12.2); NRBC Per 100 WBC 0.03 X 10*3/uL (0.00-0.01); Platelet Count 284 X 10*3/uL (140-440); RBC 3.68 X 10*6/uL (4.10-5.20); RDW 21.6 % (11.5-14.5)
[2023-12-30 09:06] LABS: ALT 14 U/L (8-44); AST 13 U/L (13-35); Albumin 3.5 g/dL (3.8-4.9); Albumin/Globulin Ratio 1.84 Ratio (1.60-3.17); Alkaline Phosphatase 110 U/L (41-126); BUN/Creat Ratio 14.19 Ratio (12.00-20.00); Bilirubin, Conjugated 0.47 mg/dL (0.20-0.40); Bilirubin,Unconjugated 1.23 mg/dL (0.20-1.00); Blood Urea Nitrogen 22.7 mg/dL (9.0-27.0); Calcium 9.8 mg/dL (8.7-10.3); Carbon Dioxide 28.5 mmol/L (21.6-31.8); Chloride 98 mmol/L (96-109); Globulin 1.9 g/dL (1.6-3.3); Glucose 81 mg/dL (70-110); Potassium 4.1 mmol/L (3.5-5.5); Sodium 140 mmol/L (135-145); Total Bilirubin 1.7 mg/dL (0.3-1.2); Total Protein 5.4 g/dL (6.2-8.2)
[2023-12-30 09:52] LABS: Basophils # (A) 0.06 X 10*3/uL (0.00-0.10); Basophils % (A) 0.8 %; Eosinophils # (A) 0.14 X 10*3/uL (0.04-0.35); Eosinophils % (A) 1.9 %; Lymphocytes # (A) 1.28 X 10*3/uL (0.90-5.00); Lymphocytes % (A) 17.8 %; Monocytes # (A) 0.67 X 10*3/uL (0.20-1.00); Monocytes % (A) 9.3 %; Neutrophils # (A) 4.99 X 10*3/uL (1.80-7.70); Neutrophils % (A) 69.4 %
[2023-12-30 09:53] LABS: Anisocytosis (M) 2+; Macrocytosis (M) 2+
--- NOTE | 2023-12-30 10:53 | P.PN ---
Subjective Progress Note Date: 12/30/23 This is a 73-year-old female from [facility] subacute rehab admitted with acute exacerbation of CHF, acute renal failure and multiple other medical issues. Diuresing well on Lasix IV push with 24-hour I&O reflecting a negative fluid balance. Cardiology consult in place with recommendations pending. Oxygen has been weaned down to 3 L nasal cannula, maintaining O2 sats in the mid 90s. Telemetry A-fib, mild tachycardia on admission, rate currently controlled. Afebrile. Potassium 4.1, BUN 22.7, creatinine 1.6. Denies chest pain. Occasionally feels chest fluttering. Objective - Vital Signs Vital signs: Vital Signs Temp 98.2 F 12/30/23 07:37 Pulse 60 12/30/23 08:50 Resp 23 12/30/23 08:00 BP 106/70 12/30/23 07:37 Pulse Ox 95 12/30/23 08:38 FiO2 Intake & Output 12/29/23 12/30/23 12/30/23 18:59 06:59 18:59 Intake Total 420 Output Total 500 Balance -80 Weight 123.831 kg Intake: Oral 420 Output: Urine 500 Other: Voiding Method External Catheter External Catheter External Catheter # Voids 2 - Exam PHYSICAL EXAM: VITAL SIGNS: [As above] GENERAL: Alert and oriented 3, sitting up in bed, no acute distress. HEENT: Normocephalic, Conjunctivae normal. NECK: Supple, No JVD. CARDIOVASCULAR: S1, S2. irregular. Systolic murmur. RESPIRATION: Unlabored, equal air entry, essentially clear, bilateral bases di minished ABDOMEN: Soft, nondistended, nontender. +BS. LEGS: chronic bilateral lower extremity edema. NERVOUS SYSTEM: No focal deficits. Cranial nerves II through XII grossly intact. Skin: Warm and dry. Bilateral inner thighs, [employer] dressings present. - Labs CBC & Chem 7: 12/30/23 05:16 12/31/23 07:55 Labs: Abnormal Lab Results - Last 24 Hours (Table) 12/30/23 12/30/23 Range/Units 05:16 05:16 RBC 3.68 L (4.10-5.20) X 10*6/uL MCV 105.2 H (80.0-97.0) FL MCH 32.6 H (27.0-32.0) pg MCHC 31.0 L (32.0-37.0) g/dL RDW 21.6 H (11.5-14.5) % Immature Gran # 0.06 H (0.00-0.04) X 10*3/uL NRBC/100 WBC Diff 0.03 H (0.00-0.01) X 10*3/uL Anisocytosis (manual) 2+ A Macrocytosis (manual) 2+ A Anion Gap 13.50 H (4.00-12.00) mmol/L Creatinine 1.6 H (0.6-1.5) mg/dL Est GFR (CKD-EPI) 33 L (>=60) Total Bilirubin 1.7 H (0.3-1.2) mg/dL Conjugated Bilirubin 0.47 H (0.20-0.40) mg/dL Unconjugated Bilirubin 1.23 H (0.20-1.00) mg/dL Total Protein 5.4 L (6.2-8.2) g/dL Albumin 3.5 L (3.8-4.9) g/dL Assessment and Plan Assessment: Acute on Chronic CHF exacerbation, systolic dysfunction, EF 45-50%. Acute on chronic renal failure, stage III Lactic acidosis resolved Chronic Atrial fibrillation with rapid ventricular rate, status post RICO and cardioversion History of Bilateral pleural effusions status post bilateral thoracentesis,transudative;Cytology negative for malignancy, on prior hospitalization. Pulmonary embolism bilaterally status post EKOS, 03/14/2022 Pulmonary hypertension Moderate mitral and tricuspid regurgitation Hypothyroidism Hypertension, history of Hyperlipidemia Osteoarthritis with history right knee placement in July 2022. Morbid obesity, BMI 46 Anxiety Plan: Continue on current medication regimen, monitoring and symptomatic treatment. Diuretics. Close monitoring of electrolytes and renal function with repeat labs ordered for a.m. Cardiology consult in place with recommendations pending. The impression and plan of care has been dictated as directed. : I performed a history and examination of this patient, discussed the same with the dictator. I agree with the dictator's note ,documented as a scribe. Any additional findings or plans will be noted.
--- NOTE | 2023-12-30 12:01 | P.CRDCN ---
History of Present Illness Consult date: 12/30/23 Consult reason: congestive heart failure History of present illness: This is a 73-year-old female patient of Dr. Sylvester with a past medical history significant for pulmonary embolism, chronic atrial fibrillation, hypertension, hyperlipidemia, congestive heart failure, and pulmonary hypertension. We have been asked to see the patient in consultation for congestive heart failure. Patient states that she feels better by the time of this evaluation. She states she came into the hospital because she could not catch her breath. She states s he has been waking up around 2 in the morning for the last 3 nights gasping for air. Patient states she always has lower extremity edema but more so in the feet today. She states she sometimes feels a fluttering in her chest. She denies chest pain. Patient is currently residing at [facility] for subacute rehab. She normally walks with a walker. Patient has been started on IV Lasix 40 mg every 12 hours. EKG reveals atrial fibrillation Chest xray: Fluid overload state/CHF exacerbation felt present. WBC 7.2, hemoglobin 12, platelet count 284. Electrolytes within normal limits. BUN 22 creatinine 1.6. Lactic acid initially 3.4 is now 1.9. Total bilirubin 1.7, other liver function tests are normal. Troponin negative x 3. proBNP 14,000. Current home cardiac medications: Amiodarone 200 mg daily, Eliquis 5 mg twice daily, Farxiga 10 mg daily, Lasix 40 mg twice daily, magnesium 250 mg daily, Lopressor 25 mg twice daily, Nitrostat as needed, potassium chloride 20 mill equivalents daily. Most recent echocardiogram obtained in September 2023 revealed ejection fraction 45-50%. RICO and cardioversion performed on 11/11/2023 for atrial fibrillation. Mild to moderate aortic regurgitation. Severe mitral regurgitation. Moderate tricuspid regurgitation. No evidence of PFO. EF 55%. Cardiac catheterization performed 11/07/2023 revealed normal coronary arteries. Elevated left-sided filling pressures. Plan for aggressive risk factor modification and increase diuretics can consider cardioversion. REVIEW OF SYSTEMS: At the time of my exam: CONSTITUTIONAL: Denies fever or chills. HEENT: Denies blurred vision, vision changes, or eye pain. Denies hemoptysis CARDIOVASCULAR: Denies chest pain. Denies orthopnea. Denies PND. Denies palpitations. Chronic lower extremity edema. RESPIRATORY: Reports shortness of breath. GASTROINTESTINAL: Denies abdominal pain. Denies nausea or vomiting. HEMATOLOGIC: Denies bleeding disorders. GENITOURINARY: Denies any blood in urine. SKIN: Denies pruitis. Denies rash. PHYSICAL EXAM: VITAL SIGNS: Reviewed. GENERAL: Well-developed in no acute distress. HEENT: Head is normocephalic. Pupils are equal, round. Sclerae anicteric. Mucous membranes of the mouth are moist. Neck supple. No JVD or thyromegaly LUNGS: Respirations even and unlabored. Bilateral rales. HEART: Irregular rate and rhythm. S1 and S2 heard. ABDOMEN: Soft. Nondistended. Nontender. EXTREMITIES: Normal range of motion. No clubbing or cyanosis. Peripheral pulses intact. 2+ extremity edema NEUROLOGIC: Awake and alert. Oriented x 3. ASSESSMENT: Acute on chronic heart failure with preserved EF Chronic atrial fibrillation Previous hospitalization for acute hypoxic respiratory failure requiring mechanical ventilation History of right pleural effusion, status post thoracentesis on 10/08/2023 with removal of 1200 mL History of left pleural effusion, status post thoracentesis on 10/09/2023 with removal of 550 mL History of pulmonary embolism with EKOS, February 2022 Hypertension Hyperlipidemia Hypothyroidism Pulmonary hypertension Morbid obesity: BMI 44 PLAN: Continue patient's home cardiac medications with the following changes Discontinue amiodarone Continue IV Lasix 40 mg every 12 hours Monitor I&O, daily weights, electrolytes and renal function Obtain TSH Further recommendations pending patient's course Nurse practitioner note has been reviewed by physician. Signing provider agrees with the documented findings, assessment, and plan of care. Past Medical History Past Medical History: Atrial Fibrillation, Hyperlipidemia, Hypertension, Osteoarthritis (OA), Pulmonary Embolus (PE), Thyroid Disorder Additional Past Medical History / Comment(s): PE bilateral with EKOS 02/2022 History of Any Multi-Drug Resistant Organisms: None Reported Past Surgical History: Cholecystectomy, Hysterectomy Additional Past Surgical History / Comment(s): Pt states she had a rt hip replacement 20 years ago, right knee replacement jul 2022 Past Anesthesia/Blood Transfusion Reactions: No Reported Reaction Past Psychological History: No Psychological Hx Reported Smoking Status: Never smoker Past Alcohol Use History: None Reported Past Drug Use History: None Reported - Past Family History Father Family Medical History: AICD/Pacemaker Additional Family Medical History / Comment(s): cabg at 84 Mother Additional Family Medical History / Comment(s): non hodgkins lymphoma Medications and Allergies Home Medications Medication Instructions Recorded Confirmed Type Apixaban [Eliquis] 5 mg PO BID@0800,1700 09/09/22 12/29/23 History Levothyroxine Sodium [Synthroid] 88 mcg PO DAILY@0600 09/09/22 12/29/23 History Magnesium 250 mg PO DAILY@0800 09/26/23 12/29/23 History Albuterol Sulfate [Ventolin HFA] 1 puff INHALATION RT-QID PRN 11/07/23 12/29/23 History Dapagliflozin Propanediol [Farxiga] 10 mg PO DAILY@0600 11/07/23 12/29/23 H istory Docusate [Colace] 100 mg PO BID@0800,1700 11/07/23 12/29/23 History Ipratropium-Albuterol Nebulize 3 ml INHALATION RT-Q6H@00,06,12,18 11/07/23 12/29/23 History [Duoneb 0.5 mg-3 mg/3 ml Soln] Magnesium Hydroxide [Milk of 7,200 mg PO DAILY PRN 11/07/23 12/29/23 History Magnesia Concentrate] Melatonin 5 mg PO HS@2100 11/07/23 12/29/23 History Na Phos,M-B/Na Phos,Di-Ba [Fleet 133 ml RECTAL DAILY PRN 11/07/23 12/29/23 History Adult] Potassium Chloride ER [K-Dur 20] 20 meq PO DAILY@1700 11/07/23 12/29/23 History bisacodyL [Dulcolax] 10 mg RECTAL DAILY PRN 11/07/23 12/29/23 History guaiFENesin [Mucinex] 600 mg PO BID@0800,2100 11/07/23 12/29/23 History polyethylene glycoL 3350 [Miralax] 17 gm PO DAILY@0800 11/07/23 12/29/23 History Acetaminophen Tab [Tylenol] 650 mg PO Q4HR PRN tab 11/13/23 12/29/23 Rx Calcium Carbonate [Tums] 500 mg PO QID PRN tab 11/13/23 12/29/23 Rx Nitroglycerin Sl Tabs [Nitrostat] 0.4 mg SUBLINGUAL Q5M PRN tab 11/13/2303/18 Rx ALPRAZolam [Xanax] 0.25 mg PO BID PRN 12/29/23 12/29/23 History Amiodarone [Cordarone] 200 mg PO DAILY@0900 12/29/23 12/29/23 History Furosemide [Lasix] 40 mg PO BID@0600,1400 12/29/23 12/29/23 History Lidocaine 5% Patch [Lidoderm] 1 patch TOPICAL DAILY@0800 12/29/23 12/29/23 History Metoprolol Tartrate [Lopressor] 25 mg PO BID@0800,1700 12/29/23 12/29/23 History Midodrine HCl [ProAmatine] 10 mg PO BID@0600,1200 12/29/23 12/29/23 History Nystatin 100,000 Unit/gm Powd 1 applic TOPICAL BID@0800,1700 12/29/23 12/29/23 History [Mycostatin Powder] Allergies Allergy/AdvReac Type Severity Reaction Status Date / Time Penicillins Allergy Rash/Hives Verified 12/29/23 14:16 @ Allergy testing site strawberry Allergy Rash/Hives Verified 12/29/23 14:16 all over body tramadol Allergy Unknown Verified 12/29/23 14:16 Physical Exam Vitals: Vital Signs Temp Pulse Pulse Resp BP BP Pulse Ox 12/30/23 08:38 59 L 95 12/30/23 07:37 98.2 F 106 H 23 106/70 99 12/30/23 03:50 76 12/30/23 03:37 72 12/30/23 01:24 97.8 F 103 H 21 103/70 95 12/29/23 21:17 80 12/29/23 21:08 80 12/29/23 18:55 97.5 F L 97 21 99/69 98 12/29/23 17:14 114 H 95/63 12/29/23 17:11 98.3 F 109 H 18 93/65 98 12/29/23 12:40 105 H 18 97/69 98 12/29/23 10:42 98 18 98/75 99 Intake and Output 12/29/23 12/30/23 12/30/23 22:59 06:59 14:59 Intake Total 420 Output Total 500 Balance -80 Intake: Oral 420 Output: Urine 500 Other: Voiding Method External Catheter # Voids 2 Weight 123.831 kg Results 12/30/23 05:16 12/30/23 05:16 Cardiac Enzymes 12/29/23 Range/Units 10:50 Troponin I <0.012 (0.000-0.034) ng/mL CBC 12/30/23 Range/Units 05:16 WBC 7.20 (4.50-10.00) X 10*3/uL RBC 3.68 L (4.10-5.20) X 10*6/uL Hgb 12.0 (12.0-15.0) g/dL Hct 38.7 (37.2-46.3) % Plt Count 284 (140-440) X 10*3/uL Current Medications Generic Name Dose Route Start Last Admin Trade Name Freq PRN Reason Stop Dose Admin Acetaminophen 650 mg 12/30/23 00:26 12/30/23 07:46 Acetaminophen Tab 325 Mg Tab PO 650 mg Q6HR PRN Administration Fever and/ or Pain Albuterol/Ipratropium 3 ml 12/29/23 18:00 12/30/23 08:36 Ipratropium-Albuterol 3 Ml Neb INHALATION 3 ml RT-Q6H@00,06,12,18 ANNA Administration Alprazolam 0.25 mg 12/29/23 16:43 12/30/23 07:47 Alprazolam 0.25 Mg Tab PO 0.25 mg BID PRN Administration Anxiety Amiodarone HCl 200 mg 12/30/23 09:00 12/30/23 07:43 Amiodarone 200 Mg Tab PO 200 mg DAILY@0900 ANNA Administration Apixaban 5 mg 12/29/23 17:00 12/30/23 07:43 Apixaban 5 Mg Tab PO 5 mg BID@0800,1700 ANNA Administration Protocol Dapagliflozin 10 mg 12/30/23 06:00 12/30/23 05:42 Dapagliflozin Propanediol 10 Mg Tablet PO 10 mg DAILY@0600 ANNA Administration Docusate Sodium 100 mg 12/29/23 17:00 12/30/23 07:42 Docusate 100 Mg Cap PO 100 mg BID@0800,1700 ANNA Administration Furosemide 40 mg 12/29/23 06:00 12/30/23 05:42 Furosemide 10 Mg/Ml 4 Ml Vial IV 40 mg Q12H ANNA Administration Levothyroxine Sodium 88 mcg 12/30/23 06:00 12/30/23 05:42 Levothyroxine 88 Mcg Tab PO 88 mcg DAILY@0600 ANNA Administration Magnesium Oxide 400 mg 12/30/23 08:00 12/30/23 07:43 Magnesium Oxide 400 Mg Tab PO 400 mg DAILY@0800 ANNA Administration Melatonin 5 mg 12/29/23 21:00 12/29/23 20:25 Melatonin 5 Mg Tablet PO 5 mg HS@2100 ANNA Administration Metoprolol Tartrate 25 mg 12/29/23 17:00 12/30/23 07:43 Metoprolol Tartrate 25 Mg Tab PO 25 mg BID@0800,1700 ANNA Administration Midodrine 10 mg 12/30/23 06:00 12/30/23 05:42 Midodrine 5 Mg Tab PO 10 mg BID@0600,1200 ANNA Administration Petrolatum 1 applic 12/29/23 16:08 Zinc Oxide Paste (Z-Guard) 1 Applic TOPICAL Q2HR PRN Wound Healing Protocol Polyethylene Glycol 17 gm 12/30/23 08:00 12/30/23 07:43 Polyethylene Glycol 3350 17 Gm Powd.Pack PO 17 gm DAILY@0800 ANNA Administration Potassium Chloride 20 meq 12/29/23 17:00 12/29/23 17:21 Potassium Chloride Er 20 Meq Tab.Er PO 20 meq DAILY@1700 ANNA Administration Sodium Chloride 10 ml 12/29/23 09:00 12/30/23 07:43 Sodium Chloride 0.9% Flush 10 Ml Syringe IV 10 ml BID ANNA Administration Intake and Output 12/29/23 12/30/23 12/30/23 22:59 06:59 14:59 Intake Total 420 Output Total 500 Balance -80 Intake: Oral 420 Output: Urine 500 Other: Voiding Method External Catheter # Voids 2 Weight 123.831 kg 12/30/23 05:16 12/29/23 05:29
[2023-12-30 13:41] VITALS: BMI 44.7
[2023-12-30 21:40] LABS: Glucose,Whole Blood 110 mg/dL (70-110)
--- NOTE | 2023-12-31 11:47 | P.PN ---
Subjective Progress Note Date: 12/31/23 Consult reason: congestive heart failure History of present illness: This is a 73-year-old female patient of Dr. Sylvester with a past medical history significant for pulmonary embolism, chronic atrial fibrillation, hypertension, hyperlipidemia, congestive heart failure, and pulmonary hypertension. We have been asked to see the patient in consultation for congestive heart failure. Patient states that she feels better by the time of this evaluation. She states she came into the hospital because she could not catch her breath. She states she has been waking up around 2 in the morning for the last 3 nights gasping for air. Patient states she always has lower extremity edema but more so in the feet today. She states she sometimes feels a fluttering in her chest. She denies chest pain. Patient is currently residing at [facility] for subacute rehab. She normally walks with a walker. Patient has been started on IV Lasix 40 mg every 12 hours. EKG reveals atrial fibrillation Chest xray: Fluid overload state/CHF exacerbation felt present. WBC 7.2, hemoglobin 12, platelet count 284. Electrolytes within normal limits. BUN 22 creatinine 1.6. Lactic acid initially 3.4 is now 1.9. Total bilirubin 1.7, other liver function tests are normal. Troponin negative x 3. proBNP 14,000. Current home cardiac medications: Amiodarone 200 mg daily, Eliquis 5 mg twice daily, Farxiga 10 mg daily, Lasix 40 mg twice daily, magnesium 250 mg daily, Lop ressor 25 mg twice daily, Nitrostat as needed, potassium chloride 20 mill equivalents daily. Most recent echocardiogram obtained in September 2023 revealed ejection fraction 45-50%. RICO and cardioversion performed on 11/11/2023 for atrial fibrillation. Mild to moderate aortic regurgitation. Severe mitral regurgitation. Moderate tricuspid regurgitation. No evidence of PFO. EF 55%. Cardiac catheterization performed 11/07/2023 revealed normal coronary arteries. Elevated left-sided filling pressures. Plan for aggressive risk factor modification and increase diuretics can consider cardioversion. 12/31 Patient is seen today in follow-up. She is feeling little bit better. Breathing is better after nebulizer. She continues to have lower extremity edema. She has been on IV Lasix at 40 mg every 12 hours. She has a negative fluid balance this morning of 950 mL. Weights are documented is unchanged. No repeat blood work today. Noted that TSH was elevated possibly due to amiodarone. PHYSICAL EXAM: VITAL SIGNS: Reviewed. GENERAL: Well-developed in no acute distress. HEENT: Head is normocephalic. Pupils are equal, round. Sclerae anicteric. Mucous membranes of the mouth are moist. Neck supple. No JVD or thyromegaly LUNGS: Respirations even and unlabored. Bilateral rales. HEART: Irregular rate and rhythm. S1 and S2 heard. ABDOMEN: Soft. Nondistended. Nontender. EXTREMITIES: Normal range of motion. No clubbing or cyanosis. Peripheral pulses intact. 2+ extremity edema NEUROLOGIC: Awake and alert. Oriented x 3. ASSESSMENT: Acute on chronic heart failure with preserved EF Chronic atrial fibrillation Previous hospitalization for acute hypoxic respiratory failure requiring mechanical ventilation History of right pleural effusion, status post thoracentesis on 10/08/2023 with removal of 1200 mL History of left pleural effusion, status post thoracentesis on 10/09/2023 with removal of 550 mL History of pulmonary embolism with EKOS, February 2022 Hypertension Hyperlipidemia Hypothyroidism Pulmonary hypertension Morbid obesity: BMI 44 PLAN: Continue patient's home cardiac medications with the following changes Discontinue amiodarone Continue IV Lasix 40 mg every 12 hours for another 24 hours Monitor I&O, daily weights, electrolytes and renal function Further recommendations pending patient's course Nurse practitioner note has been reviewed by physician. Signing provider agrees with the documented findings, assessment, and plan of care. Objective - Vital Signs Vital signs: Vital Signs Temp 97.6 F 12/31/23 07:47 Pulse 118 H 12/31/23 07:47 Resp 20 12/31/23 07:56 BP 107/75 12/31/23 07:47 Pulse Ox 99 12/31/23 07:47 FiO2 Intake & Output 12/30/23 12/31/23 12/31/23 18:59 06:59 18:59 Intake Total 300 5 Output Total 800 450 Balance -500 -450 5 Weight 123.831 kg Intake: IV 5 Invasive Line 1 5 Oral 300 Output: Urine 800 450 Other: Voiding Method External Catheter External Catheter - Labs CBC & Chem 7: 12/30/23 05:16 12/30/23 05:16 Labs: Abnormal Lab Results - Last 24 Hours (Table) 12/30/23 12/30/23 12/30/23 Range/Units 05:16 05:16 05:16 Immature Gran # 0.06 H (0.00-0.04) X 10*3/uL Anisocytosis (manual) 2+ A Macrocytosis (manual) 2+ A Anion Gap 13.50 H (4.00-12.00) mmol/L Creatinine 1.6 H (0.6-1.5) mg/dL Est GFR (CKD-EPI) 33 L (>=60) Total Bilirubin 1.7 H (0.3-1.2) mg/dL Conjugated Bilirubin 0.47 H (0.20-0.40) mg/dL Unconjugated Bilirubin 1.23 H (0.20-1.00) mg/dL Total Protein 5.4 L (6.2-8.2) g/dL Albumin 3.5 L (3.8-4.9) g/dL TSH 17.400 H (0.350-5.500) UIU/ML
[2023-12-31 15:44] LABS: BUN/Creat Ratio 16.47 Ratio (12.00-20.00); Blood Urea Nitrogen 24.7 mg/dL (9.0-27.0); Calcium 9.6 mg/dL (8.7-10.3); Carbon Dioxide 30.6 mmol/L (21.6-31.8); Chloride 98 mmol/L (96-109); Glucose 112 mg/dL (70-110); Sodium 141 mmol/L (135-145)
[2023-12-31] MEDS: IPRATROPIUM-ALBUTEROL 3 ML NEB INHALATION PRN (23:15)
[2024-01-01] MEDS: IPRATROPIUM-ALBUTEROL 3 ML NEB INHALATION SCH (07:53)
[2024-01-01] MEDS: METOPROLOL TARTRATE 25 MG TAB PO STA (09:52)
--- NOTE | 2024-01-01 10:48 | P.PN ---
Subjective Progress Note Date: 12/31/23 This is a 73-year-old female from [facility] subacute rehab admitted with acute exacerbation of CHF, acute renal failure and multiple other medical issues. Diuresing well on Lasix IV push with 24-hour I&O reflecting a negative fluid balance. Cardiology consult in place with recommendations pending. Oxygen has been weaned down to 3 L nasal cannula, maintaining O2 sats in the mid 90s. Telemetry A-fib, mild tachycardia on admission, rate currently controlled. Afebrile. Potassium 4.1, BUN 22.7, creatinine 1.6. Denies chest pain. Occasionally feels chest fluttering. 12/31/23 Diuresing well on Lasix IV push with 24-hour I&O reflecting a negative fluid balance, though weight remains unchanged. Elevated TSH, normal free T4; TSH 17.4, T41.24 In a patient who had been on amiodarone. Levothyroxine dose increased. BMP pending. Denies chest pain, palpitations or increased shortness of breath. Maintaining O2 sats in the high 90s on 3 L nasal cannula, which can be titrated down. Objective - Vital Signs Vital signs: Vital Signs Temp 97.6 F 12/31/23 07:47 Pulse 118 H 12/31/23 07:47 Resp 20 12/31/23 07:56 BP 107/75 12/31/23 07:47 Pulse Ox 99 12/31/23 07:47 FiO2 Intake & Output 12/30/23 12/31/23 12/31/23 18:59 06:59 18:59 Intake Total 300 5 Output Total 800 450 Balance -500 -450 5 Weight 123.831 kg Intake: IV 5 Invasive Line 1 5 Oral 300 Output: Urine 800 450 Other: Voiding Method External Catheter External Catheter - Exam PHYSICAL EXAM: VITAL SIGNS: [As above] GENERAL: Alert and oriented 3, sitting up in bed, no acute distress. HEENT: Normocephalic, Conjunctivae normal.MMM. NECK: Supple, No JVD. CARDIOVASCULAR: S1, S2. irregular. Systolic murmur. RESPIRATION: Unlabored, equal air entry, scattered rhonchi, fine bibasilar crackles ABDOMEN: Soft, nondistended, nontender. +BS. LEGS: chronic bilateral lower extremity edema. NERVOUS SYSTEM: Cranial nerves II through XII grossly intact. Skin: Warm and dry. - Labs CBC & Chem 7: 12/30/23 05:16 12/31/23 07:55 Labs: Abnormal Lab Results - Last 24 Hours (Table) 12/31/23 Range/Units 07:55 Anion Gap 12.40 H (4.00-12.00) mmol/L Est GFR (CKD-EPI) 36 L (>=60) Glucose 112 H (70-110) mg/dL Assessment and Plan Assessment: Acute on Chronic CHF exacerbation, systolic dysfunction, EF 45-50%. Acute on chronic renal failure, stage III Lactic acidosis resolved Chronic Atrial fibrillation with rapid ventricular rate, status post RICO and cardioversion History of Bilateral pleural effusions status post bilateral thoracentesis,transudative;Cytology negative for malignancy, on prior hospitalization. Pulmonary embolism bilaterally status post EKOS, 03/14/2022 Pulmonary hypertension Moderate mitral and tricuspid regurgitation Hypothyroidism, TSH ^,T4 N, levothyroxine dose increased, recheck levels in 6 weeks Hypertension, history of Hyperlipidemia Osteoarthritis with history right knee placement in July 2022. Morbid obesity, BMI 46 Anxiety Plan: Continue on current medication regimen, monitoring and symptomatic treatment. BMP pending/close monitoring of renal function. Antiarrhythmics and diuretics as per cardiology. Discharge planning in progress for return to subacute rehab., pending transition to oral diuretics, final DC recommendations and clearance per cardiology. The i transition to oral diuretics,mpression and plan of care has been dictated as directed. : I performed a history and examination of this patient, discussed the same with the dictator. I agree with the dictator's note ,documented as a scribe. Any additional findings or plans will be noted.
[2024-01-01 11:55] LABS: African American GFR (CKD) 50 (>60 ml/min/1.73 sqM); Anion Gap 4 mmol/L; Blood Urea Nitrogen 29 mg/dL (7-17); Calcium 9.2 mg/dL (8.4-10.2); Carbon Dioxide 33 mmol/L (22-30); Chloride 98 mmol/L (98-107); Glucose 94 mg/dL (74-99); Non-African American GFR(CKD) 43 (>60 ml/min/1.73 sqM); Potassium 4.5 mmol/L (3.5-5.1); Sodium 135 mmol/L (137-145)
--- NOTE | 2024-01-01 12:24 | P.PN ---
Subjective Progress Note Date: 01/01/24 Consult reason: congestive heart failure History of present illness: This is a 73-year-old female patient of Dr. Sylvester with a past medical history significant for pulmonary embolism, chronic atrial fibrillation, hypertension, hyperlipidemia, congestive heart failure, and pulmonary hypertension. We have been asked to see the patient in consultation for congestive heart failure. Patient states that she feels better by the time of this evaluation. She states she came into the hospital because she could not catch her breath. She states she has been waking up around 2 in the morning for the last 3 nights gasping for air. Patient states she always has lower extremity edema but more so in the feet today. She states she sometimes feels a fluttering in her chest. She denies chest pain. Patient is currently residing at [facility] for subacute rehab. She normally walks with a walker. Patient has been started on IV Lasix 40 mg every 12 hours. EKG reveals atrial fibrillation Chest xray: Fluid overload state/CHF exacerbation felt present. WBC 7.2, hemoglobin 12, platelet count 284. Electrolytes within normal limits. BUN 22 creatinine 1.6. Lactic acid initially 3.4 is now 1.9. Total bilirubin 1.7, other liver function tests are normal. Troponin negative x 3. proBNP 14,000. Current home cardiac medications: Amiodarone 200 mg daily, Eliquis 5 mg twice daily, Farxiga 10 mg daily, Lasix 40 mg twice daily, magnesium 250 mg daily, Lop ressor 25 mg twice daily, Nitrostat as needed, potassium chloride 20 mill equivalents daily. Most recent echocardiogram obtained in September 2023 revealed ejection fraction 45-50%. RICO and cardioversion performed on 11/11/2023 for atrial fibrillation. Mild to moderate aortic regurgitation. Severe mitral regurgitation. Moderate tricuspid regurgitation. No evidence of PFO. EF 55%. Cardiac catheterization performed 11/07/2023 revealed normal coronary arteries. Elevated left-sided filling pressures. Plan for aggressive risk factor modification and increase diuretics can consider cardioversion. 12/31 Patient is seen today in follow-up. She is feeling little bit better. Breathing is better after nebulizer. She continues to have lower extremity edema. She has been on IV Lasix at 40 mg every 12 hours. She has a negative fluid balance this morning of 950 mL. Weights are documented is unchanged. No repeat blood work today. Noted that TSH was elevated possibly due to amiodarone. 01/01 Patient is maintained on IV Lasix 1 mg every 12 hours. Heart rate 110, blood pressure 110/74, pulse ox 90% on 2 L nasal. Patient states that she is feeling better and her breathing is better when she lays to nebulizer treatments. She denies having any chest pain. She states she felt a little dizzy when she sat on side of the bed this morning. She had a negative fluid balance yesterday PHYSICAL EXAM: VITAL SIGNS: Reviewed. GENERAL: Well-developed in no acute distress. HEENT: Head is normocephalic. Pupils are equal, round. Sclerae anicteric. Mucous membranes of the mouth are moist. Neck supple. No JVD or thyromegaly LUNGS: Respirations even and unlabored. Bilateral rales. HEART: Irregular rate and rhythm. S1 and S2 heard. ABDOMEN: Soft. Nondistended. Nontender. EXTREMITIES: Normal range of motion. No clubbing or cyanosis. Peripheral pulses intact. 2+ extremity edema NEUROLOGIC: Awake and alert. Oriented x 3. ASSESSMENT: Acute on chronic heart failure with preserved EF Chronic atrial fibrillation Previous hospitalization for acute hypoxic respiratory failure requiring mechanical ventilation History of right pleural effusion, status post thoracentesis on 10/08/2023 with removal of 1200 mL History of left pleural effusion, status post thoracentesis on 10/09/2023 with removal of 550 mL History of pulmonary embolism with EKOS, February 2022 Hypertension Hyperlipidemia Hypothyroidism Pulmonary hypertension Morbid obesity: BMI 44 PLAN: Continue patient's home cardiac medications with the following changes Increase Lopressor to 50 mg twice daily Discontinue amiodarone Continue IV Lasix 40 mg every 12 hours for another 24 hours Monitor I&O, daily weights, electrolytes and renal function Further recommendations pending patient's course Nurse practitioner note has been reviewed by physician. Signing provider agrees with the documented findings, assessment, and plan of care. Objective - Vital Signs Vital signs: Vital Signs Temp 97.8 F 01/01/24 06:52 Pulse 110 H 01/01/24 07:35 Resp 18 01/01/24 07:35 BP 110/74 01/01/24 06:52 Pulse Ox 98 01/01/24 06:52 FiO2 Intake & Output 12/31/23 01/01/24 01/01/24 18:59 06:59 18:59 Intake Total 5 6 Output Total 1500 850 Balance -1495 -850 6 Intake: IV 5 6 Invasive Line 1 5 Invasive Line 2 6 Output: Urine 1500 850 Other: Voiding Method External Catheter - Labs CBC & Chem 7: 12/30/23 05:16 01/01/24 11:07 Labs: Abnormal Lab Results - Last 24 Hours (Table) 12/31/23 Range/Units 07:55 Anion Gap 12.40 H (4.00-12.00) mmol/L Est GFR (CKD-EPI) 36 L (>=60) Glucose 112 H (70-110) mg/dL
[2024-01-01] MEDS: METOPROLOL TARTRATE 50 MG TAB PO SCH (17:13)
--- NOTE | 2024-01-01 18:02 | P.PN ---
Subjective Progress Note Date: 01/01/24 This is a 73-year-old female from [facility] subacute rehab admitted with acute exacerbation of CHF, acute renal failure and multiple other medical issues. Diuresing well on Lasix IV push with 24-hour I&O reflecting a negative fluid balance. Cardiology consult in place with recommendations pending. Oxygen has been weaned down to 3 L nasal cannula, maintaining O2 sats in the mid 90s. Telemetry A-fib, mild tachycardia on admission, rate currently controlled. Afebrile. Potassium 4.1, BUN 22.7, creatinine 1.6. Denies chest pain. Occasionally feels chest fluttering. 12/31/23 Diuresing well on Lasix IV push with 24-hour I&O reflecting a negative fluid balance, though weight remains unchanged. Elevated TSH, normal free T4; TSH 17.4, T41.24 In a patient who had been on amiodarone. Levothyroxine dose increased. BMP pending. Denies chest pain, palpitations or increased shortness of breath. Maintaining O2 sats in the high 90s on 3 L nasal cannula, which can be titrated down. 01/01/2024 continues to diurese well on Lasix IV push with 24-hour AMISH reflecting a negative fluid balance. BUN 29, creatinine decreased to 1.23. maintaining O2 sats in the 90s on 2 L nasal cannula. Tachycardic-rates in the 1 teens, beta- jorge alberto dose increased. Amiodarone discontinued. Objective - Vital Signs Vital signs: Vital Signs Temp 97.8 F 01/01/24 13:19 Pulse 70 01/01/24 17:11 Resp 19 01/01/24 13:19 BP 90/57 01/01/24 17:11 Pulse Ox 94 L 01/01/24 13:19 FiO2 Intake & Output 12/31/23 01/01/24 01/01/24 18:59 06:59 18:59 Intake Total 5 6 Output Total 1500 850 Balance -1495 -850 6 Intake: IV 5 6 Invasive Line 1 5 Invasive Line 2 6 Output: Urine 1500 850 Other: Voiding Method External Catheter - Exam PHYSICAL EXAM: VITAL SIGNS: [As above] GENERAL: Alert and oriented 3, sitting up in bed, no acute distress. HEENT: Normocephalic, Conjunctivae normal.MMM. NECK: Supple, No JVD. CARDIOVASCULAR: S1, S2. irregular. Systolic murmur. RESPIRATION: Unlabored, equal air entry,fine bibasilar crackles ABDOMEN: Soft, nondistended, nontender. +BS. LEGS: chronic bilateral lower extremity edema. NERVOUS SYSTEM: Cranial nerves II through XII grossly intact. Skin: Warm and dry. - Labs CBC & Chem 7: 12/30/23 05:16 01/01/24 11:07 Labs: Abnormal Lab Results - Last 24 Hours (Table) 01/01/24 Range/Units 11:07 Sodium 135 L (137-145) mmol/L Carbon Dioxide 33 H (22-30) mmol/L BUN 29 H (7-17) mg/dL Creatinine 1.23 H (0.52-1.04) mg/dL Assessment and Plan Assessment: Acute on Chronic CHF exacerbation, diastolic dysfunction, EF 55%. Acute on chronic renal failure, stage III Lactic acidosis resolved Chronic Atrial fibrillation with rapid ventricular rate, status post RICO and cardioversion History of Bilateral pleural effusions status post bilateral thoracentesis,transudative;Cytology negative for malignancy, on prior hospitalization. Pulmonary embolism bilaterally status post EKOS, 03/14/2022 Pulmonary hypertension Moderate mitral and tricuspid regurgitation Hypothyroidism, TSH ^,T4 N, levothyroxine dose increased, recheck levels in 6 weeks Hypertension, history of Hyperlipidemia Osteoarthritis with history right knee placement in July 2022. Morbid obesity, BMI 46 Anxiety Plan: Continue on current medication regimen, monitoring and symptomatic treatment. Antiarrhythmics and diuretics as per cardiology. Close monitoring of renal function with repeat labs ordered for a.m.. Discharge planning in progress for return to subacute rehab., pending transition to oral diuretics, final DC recommendations and clearance per cardiology. The i transition to oral diuretics,mpression and plan of care has been dictated as directed. : I performed a history and examination of this patient, discussed the same with the dictator. I agree with the dictator's note ,documented as a scribe. Any additional findings or plans will be noted.
[2024-01-02] MEDS: LEVOTHYROXINE 100 MCG TAB PO SCH (05:53)
[2024-01-02 07:49] VITALS: RESP 16; TEMP 98.1
[2024-01-02 08:50] LABS: Blood Urea Nitrogen 28.8 mg/dL (9.0-27.0); Calcium 9.5 mg/dL (8.7-10.3); Carbon Dioxide 29.2 mmol/L (21.6-31.8); Chloride 96 mmol/L (96-109); Glucose 98 mg/dL (70-110); Potassium 4.6 mmol/L (3.5-5.5); Sodium 136 mmol/L (135-145)
--- NOTE | 2024-01-02 09:43 | P.PN ---
Subjective Progress Note Date: 01/02/24 Consult reason: congestive heart failure History of present illness: This is a 73-year-old female patient of Dr. Sylvester with a past medical history significant for pulmonary embolism, chronic atrial fibrillation, hypertension, hyperlipidemia, congestive heart failure, and pulmonary hypertension. We have been asked to see the patient in consultation for congestive heart failure. Patient states that she feels better by the time of this evaluation. She states she came into the hospital because she could not catch her breath. She states she has been waking up around 2 in the morning for the last 3 nights gasping for air. Patient states she always has lower extremity edema but more so in the feet today. She states she sometimes feels a fluttering in her chest. She denies chest pain. Patient is currently residing at [facility] for subacute rehab. She normally walks with a walker. Patient has been started on IV Lasix 40 mg every 12 hours. EKG reveals atrial fibrillation Chest xray: Fluid overload state/CHF exacerbation felt present. WBC 7.2, hemoglobin 12, platelet count 284. Electrolytes within normal limits. BUN 22 creatinine 1.6. Lactic acid initially 3.4 is now 1.9. Total bilirubin 1.7, other liver function tests are normal. Troponin negative x 3. proBNP 14,000. Current home cardiac medications: Amiodarone 200 mg daily, Eliquis 5 mg twice daily, Farxiga 10 mg daily, Lasix 40 mg twice daily, magnesium 250 mg daily, Lop ressor 25 mg twice daily, Nitrostat as needed, potassium chloride 20 mill equivalents daily. Most recent echocardiogram obtained in September 2023 revealed ejection fraction 45-50%. RICO and cardioversion performed on 11/11/2023 for atrial fibrillation. Mild to moderate aortic regurgitation. Severe mitral regurgitation. Moderate tricuspid regurgitation. No evidence of PFO. EF 55%. Cardiac catheterization performed 11/07/2023 revealed normal coronary arteries. Elevated left-sided filling pressures. Plan for aggressive risk factor modification and increase diuretics can consider cardioversion. 12/31 Patient is seen today in follow-up. She is feeling little bit better. Breathing is better after nebulizer. She continues to have lower extremity edema. She has been on IV Lasix at 40 mg every 12 hours. She has a negative fluid balance this morning of 950 mL. Weights are documented is unchanged. No repeat blood work today. Noted that TSH was elevated possibly due to amiodarone. 01/01 Patient is maintained on IV Lasix 1 mg every 12 hours. Heart rate 110, blood pressure 110/74, pulse ox 90% on 2 L nasal. Patient states that she is feeling better and her breathing is better when she lays to nebulizer treatments. She denies having any chest pain. She states she felt a little dizzy when she sat on side of the bed this morning. She had a negative fluid balance yesterday 01/02 Yesterday we increased metoprolol and heart rate is better controlled today. Heart rate is in the 70s and remains in atrial fibrillation. Blood pressure 92/66, pulse ox 97% on room air. Repeat blood work reveals potassium 4.6, BUN 28 creatinine 1.5. Patient states that her breathing is better and lower extremity edema is improving although she still has some. She states she had a good night. She states she has been at the edge of her bed and recommend increasing her activity. PHYSICAL EXAM: VITAL SIGNS: Reviewed. GENERAL: Well-developed in no acute distress. HEENT: Head is normocephalic. Pupils are equal, round. Sclerae anicteric. Mucous membranes of the mouth are moist. Neck supple. No JVD or thyromegaly LUNGS: Respirations even and unlabored. Bilateral rales. HEART: Irregular rate and rhythm. S1 and S2 heard. ABDOMEN: Soft. Nondistended. Nontender. EXTREMITIES: Normal range of motion. No clubbing or cyanosis. Peripheral pulses intact. 2+ extremity edema NEUROLOGIC: Awake and alert. Oriented x 3. ASSESSMENT: Acute on chronic heart failure with preserved EF Chronic atrial fibrillation Previous hospitalization for acute hypoxic respiratory failure requiring mechanical ventilation History of right pleural effusion, status post thoracentesis on 10/08/2023 with removal of 1200 mL History of left pleural effusion, status post thoracentesis on 10/09/2023 with removal of 550 mL History of pulmonary embolism with EKOS, February 2022 Hypertension Hyperlipidemia Hypothyroidism Pulmonary hypertension Morbid obesity: BMI 44 PLAN: Continue current cardiac medications Discontinue amiodarone Transition IV Lasix to oral 40 mg twice daily Monitor I&O, daily weights, electrolytes and renal function Patient is cleared from cardiology for discharge Cardiology will sign off this case and follow on an as-needed basis. Please reconsult for any new concerns. Patient may follow-up in the office in one to 2 weeks. Nurse practitioner note has been reviewed by physician. Signing provider agrees with the documented findings, assessment, and plan of care. Objective - Vital Signs Vital signs: Vital Signs Temp 98.1 F 01/02/24 06:54 Pulse 78 01/02/24 07:43 Resp 16 01/02/24 06:54 BP 92/66 01/02/24 06:54 Pulse Ox 97 01/02/24 06:54 FiO2 Intake & Output 01/01/24 01/02/24 01/02/24 18:59 06:59 18:59 Intake Total 6 Output Total 700 500 Balance -694 -500 Intake: IV 6 Invasive Line 2 6 Output: Urine 700 500 Other: Voiding Method External Catheter - Labs CBC & Chem 7: 12/30/23 05:16 01/02/24 05:50 Labs: Abnormal Lab Results - Last 24 Hours (Table) 01/01/24 Range/Units 11:07 Sodium 135 L (137-145) mmol/L Carbon Dioxide 33 H (22-30) mmol/L BUN 29 H (7-17) mg/dL Creatinine 1.23 H (0.52-1.04) mg/dL
[2024-01-02] MEDS: FUROSEMIDE 40 MG TAB PO SCH (10:15)
--- NOTE | 2024-01-02 10:48 | P.DS ---
Providers Date of admission: 12/29/23 05:58 Expected date of discharge: 01/02/24 Attending physician: Regulo Greene Consults: 12/29/23 12:26 Consult Physician Routine Consulting Provider: Rene Sylvester Consult Reason/Comments: CHF Do you want consulting provider notified?: Yes Primary care physician: Regulo Greene [place] [facility] Course: Final Diagnoses: Acute on Chronic CHF exacerbation, diastolic dysfunction, EF 55%. Acute on chronic renal failure, stage III Lactic acidosis resolved Chronic Atrial fibrillation with rapid ventricular rate, status post RICO and cardioversion History of Bilateral pleural effusions status post bilateral thoracentesis,transudative;Cytology negative for malignancy, on prior hospitalization. Pulmonary embolism bilaterally status post EKOS, 03/14/2022 Pulmonary hypertension Moderate mitral and tricuspid regurgitation Hypothyroidism, TSH ^,T4 N, levothyroxine dose increased, recheck levels in 6 weeks Hypertension, history of Hyperlipidemia Osteoarthritis with history right knee placement in July 2022. Morbid obesity, BMI 46 Anxiety Hospital course:This is a 73-year-old female from [facility] with acute exacerbation of CHF, acute renal failure and multiple other medical issues. Diuresing well on Lasix IV push with 24-hour I&O reflecting a negative fluid balance. Cardiology consult in place with recommendations pending. Oxygen has been weaned down to 3 L nasal cannula, maintaining O2 sats in the mid 90s. Telemetry A-fib, mild tachycardia on admission, rate currently controlled. Afebrile. Potassium 4.1, BUN 22.7, creatinine 1.6. Denies chest pain. Occasionally feels chest fluttering. 12/31/23 Diuresing well on Lasix IV push with 24-hour I&O reflecting a negative fluid balance, though weight remains unchanged. Elevated TSH, normal free T4; TSH 17.4, T41.24 In a patient who had been on amiodarone. Levothyroxine dose increased. BMP pending. Denies chest pain, palpitations or increased shortness of breath. Maintaining O2 sats in the high 90s on 3 L nasal cannula, which can be titrated down. 01/01/2024 continues to diurese well on Lasix IV push with 24-hour AMISH reflecting a negative fluid balance. BUN 29, creatinine decreased to 1.23. maintaining O2 sats in the 90s on 2 L nasal cannula. Tachycardic-rates in the 1 teens, beta- jorge alberto dose increased. Amiodarone discontinued. Significant clinical improvement. Telemetry controlled A-fib, blood pressure soft, on midodrine. Denies chest pain, palpitations or increase in shortness of breath, maintaining O2 sats in the high 90s on room air. Electrolytes within normal limits, BUN 28.8, creatinine 1.5. Denies lightheadedness, dizziness or focal deficits. Cleared by cardiology for discharge. Patient will be discharged to [facility] subacute rehab today in a stable condition with guarded prognosis. The impression and plan of care has been dictated as directed. : I performed a history and examination of this patient, discussed the same with the dictator. I agree with the dictator's note ,documented as a scribe. Any additional findings or plans will be noted. Patient Condition at Discharge: Stable Plan - Discharge Summary Discharge Rx Participant: No New Discharge Prescriptions: New Metoprolol Tartrate [Lopressor] 50 mg PO BID@0800,1700 tab Levothyroxine Sodium [Synthroid] 100 mcg PO DAILY@0630 tab Continue Magnesium 250 mg PO DAILY@0800 bisacodyL [Dulcolax] 10 mg RECTAL DAILY PRN PRN Reason: Constipation Na Phos,M-B/Na Phos,Di-Ba [Fleet Adult] 133 ml RECTAL DAILY PRN PRN Reason: Constipation Magnesium Hydroxide [Milk of Magnesia Concentrate] 7,200 mg PO DAILY PRN PRN Reason: Constipation Potassium Chloride ER [K-Dur 20] 20 meq PO DAILY@1700 Melatonin 5 mg PO HS@2100 Dapagliflozin Propanediol [Farxiga] 10 mg PO DAILY@0600 Nitroglycerin Sl Tabs [Nitrostat] 0.4 mg SUBLINGUAL Q5M PRN tab PRN Reason: Chest Pain Calcium Carbonate [Tums] 500 mg PO QID PRN tab PRN Reason: Heartburn Acetaminophen Tab [Tylenol] 650 mg PO Q4HR PRN tab PRN Reason: Fever And/ Or Pain Furosemide [Lasix] 40 mg PO BID@0600,1400 Midodrine HCl [ProAmatine] 10 mg PO BID@0600,1200 Apixaban [Eliquis] 5 mg PO BID@0800,1700 Albuterol Sulfate [Ventolin HFA] 1 puff INHALATION RT-QID PRN PRN Reason: Shortness Of Breath Ipratropium-Albuterol Nebulize [Duoneb 0.5 mg-3 mg/3 ml Soln] 3 ml INHALATION RT-Q6H@00,06,12,18 Docusate [Colace] 100 mg PO BID@0800,1700 polyethylene glycoL 3350 [Miralax] 17 gm PO DAILY@0800 Lidocaine 5% Patch [Lidoderm 5% Patch] 1 patch TOPICAL DAILY@0800 Nystatin 100,000 Unit/gm Powd [Mycostatin Powder] 1 applic TOPICAL BID@0800,1700 ALPRAZolam [Xanax] 0.25 mg PO BID PRN #6 tab PRN Reason: Anxiety Discontinued Levothyroxine Sodium [Synthroid] 88 mcg PO DAILY@0600 Amiodarone [Cordarone] 200 mg PO DAILY@0900 Metoprolol Tartrate [Lopressor] 25 mg PO BID@0800,1700 guaiFENesin [Mucinex] 600 mg PO BID@0800,2100 Discharge Medication List Apixaban [Eliquis] 5 mg PO BID@0800,1700 09/09/22 [History] Magnesium 250 mg PO DAILY@0800 09/26/23 [History] Albuterol Sulfate [Ventolin HFA] 1 puff INHALATION RT-QID PRN 11/07/23 [History] Dapagliflozin Propanediol [Farxiga] 10 mg PO DAILY@0600 11/07/23 [History] Docusate [Colace] 100 mg PO BID@0800,1700 11/07/23 [History] Ipratropium-Albuterol Nebulize [Duoneb 0.5 mg-3 mg/3 ml Soln] 3 ml INHALATION RT-Q6H@00,06,12,18 11/07/23 [History] Magnesium Hydroxide [Milk of Magnesia Concentrate] 7,200 mg PO DAILY PRN 11/07/23 [History] Melatonin 5 mg PO HS@2100 11/07/23 [History] Na Phos,M-B/Na Phos,Di-Ba [Fleet Adult] 133 ml RECTAL DAILY PRN 11/07/23 [History] Potassium Chloride ER [K-Dur 20] 20 meq PO DAILY@1700 11/07/23 [History] bisacodyL [Dulcolax] 10 mg RECTAL DAILY PRN 11/07/23 [History] polyethylene glycoL 3350 [Miralax] 17 gm PO DAILY@0800 11/07/23 [History] Acetaminophen Tab [Tylenol] 650 mg PO Q4HR PRN tab 11/13/23 [Rx] Calcium Carbonate [Tums] 500 mg PO QID PRN tab 11/13/23 [Rx] Nitroglycerin Sl Tabs [Nitrostat] 0.4 mg SUBLINGUAL Q5M PRN tab 11/13/23 [Rx] Furosemide [Lasix] 40 mg PO BID@0600,1400 12/29/23 [History] Lidocaine 5% Patch [Lidoderm 5% Patch] 1 patch TOPICAL DAILY@0800 12/29/23 [History] Midodrine HCl [ProAmatine] 10 mg PO BID@0600,1200 12/29/23 [History] Nystatin 100,000 Unit/gm Powd [Mycostatin Powder] 1 applic TOPICAL BID@0800,1700 12/29/23 [History] ALPRAZolam [Xanax] 0.25 mg PO BID PRN #6 tab 01/02/24 [Rx] Levothyroxine Sodium [Synthroid] 100 mcg PO DAILY@0630 tab 01/02/24 [Rx] Metoprolol Tartrate [Lopressor] 50 mg PO BID@0800,1700 tab 01/02/24 [Rx] Follow up Appointment(s)/Referral(s): Rene Sylvester DO [STAFF PHYSICIAN] - 2 Weeks Regulo Greene DO [Primary Care Provider] - 1 Week (After DC from subacute rehab) Activity/Diet/Wound Care/Special Instructions: Javon LEE, BMP in 3 days Discharge Disposition: TRANSFER TO SNF/ECF
[2024-01-02 12:02] VITALS: PULSE 80
[2024-01-02 12:03] VITALS: BP 99/59
== END 2024-01-02 14:04 | DRG 291 ==
LOC: EC 04:09 → 4SSUR 05:58
PROVIDERS: ADMIT Family Medicine; ATTEND Family Medicine
DX: I13.0 Hypertensive heart and chronic kidney disease with heart failure and stage 1 through stage 4 chronic kidney disease, or unspecified chronic kidney disease (principal); I50.43 Acute on chronic combined systolic (congestive) and diastolic (congestive) heart failure; Z68.42 Body mass index [BMI] 45.0-49.9, adult; E87.20 Acidosis, unspecified; I48.20 Chronic atrial fibrillation, unspecified; N17.9 Acute kidney failure, unspecified; J90 Pleural effusion, not elsewhere classified; I08.3 Combined rheumatic disorders of mitral, aortic and tricuspid valves; E66.01 Morbid (severe) obesity due to excess calories; F41.9 Anxiety disorder, unspecified; E03.9 Hypothyroidism, unspecified; E78.5 Hyperlipidemia, unspecified; Z86.711 Personal history of pulmonary embolism; Z79.01 Long term (current) use of anticoagulants; I27.20 Pulmonary hypertension, unspecified; R74.8 Abnormal levels of other serum enzymes; N18.30 Chronic kidney disease, stage 3 unspecified; Z28.311 Partially vaccinated for COVID-19; Z28.21 Immunization not carried out because of patient refusal; Z88.5 Allergy status to narcotic agent; Z88.0 Allergy status to penicillin; Z79.84 Long term (current) use of oral hypoglycemic drugs; Z79.890 Hormone replacement therapy; Z79.899 Other long term (current) drug therapy; Z96.641 Presence of right artificial hip joint; Z96.651 Presence of right artificial knee joint; Z82.49 Family history of ischemic heart disease and other diseases of the circulatory system
CPT/HCPCS: 36415; 71045; 80048; 80053; 80076; 83605; 83880; 84439; 84443; 84484; 85025; 85610; 85730; 93005; 94640; 94760; 96374; 99285

== ENCOUNTER 2024-01-10 02:40 | Inpatient (IN) | payer MEDICARE, OTHER ==
--- NOTE | 2024-01-10 03:27 | ED ---
General Adult HPI - General Chief complaint: Chest Pain Stated complaint: Chest pain, SOB Time Seen by Provider: 01/10/24 02:46 Source: patient, EMS, RN notes reviewed, old records reviewed Mode of arrival: EMS Limitations: no limitations - History of Present Illness Initial comments: Patient is a 73-year-old female who presents emergency department complaining of chest tightness and palpitations, shortness of breath. Is been ongoing for weeks, worse over the last 3 days. Usually occurring at night. States she wakes up gasping for breath. Has noticed worsening lower extremity edema despite them increasing her Lasix. Does take a blood thinner, Eliquis. Denies any nausea, vomiting, abdominal pain. Denies any significant cough. Endorses worsening exertional dyspnea. Presents from her nursing facility for further evaluation at this time. No history of cardiac stents. Denies any kevyn chest pain, more of a palpitations, heart fluttering sensation. - Related Data Home Medications Medication Instructions Recorded Confirmed Apixaban [Eliquis] 5 mg PO BID@0800,1700 09/09/22 12/29/23 Magnesium 250 mg PO DAILY@0800 09/26/23 12/29/23 Albuterol Sulfate [Ventolin HFA] 1 puff INHALATION RT-QID PRN 11/07/23 12/29/23 Dapagliflozin Propanediol [Farxiga] 10 mg PO DAILY@0600 11/07/23 12/29/23 Docusate [Colace] 100 mg PO BID@0800,1700 11/07/23 12/29/23 Ipratropium-Albuterol Nebulize 3 ml INHALATION RT-Q6H@00,06,12,18 11/07/23 12/29/23 [Duoneb 0.5 mg-3 mg/3 ml Soln] Magnesium Hydroxide [Milk of 7,200 mg PO DAILY PRN 11/07/23 12/29/23 Magnesia Concentrate] Melatonin 5 mg PO HS@2100 11/07/23 12/29/23 Na Phos,M-B/Na Phos,Di-Ba [Fleet 133 ml RECTAL DAILY PRN 11/07/23 12/29/23 Adult] Potassium Chloride ER [K-Dur 20] 20 meq PO DAILY@1700 11/07/23 12/29/23 bisacodyL [Dulcolax] 10 mg RECTAL DAILY PRN 11/07/23 12/29/23 polyethylene glycoL 3350 [Miralax] 17 gm PO DAILY@0800 11/07/23 12/29/23 Furosemide [Lasix] 40 mg PO BID@0600,1400 12/29/23 12/29/23 Lidocaine 5% Patch [Lidoderm 5% 1 patch TOPICAL DAILY@0800 12/29/23 12/29/23 Patch] Midodrine HCl [ProAmatine] 10 mg PO BID@0600,1200 12/29/23 12/29/23 Nystatin 100,000 Unit/gm Powd 1 applic TOPICAL BID@0800,1700 12/29/23 12/29/23 [Mycostatin Powder] Previous Rx's Medication Instructions Recorded Acetaminophen Tab [Tylenol] 650 mg PO Q4HR PRN tab 11/13/23 Calcium Carbonate [Tums] 500 mg PO QID PRN tab 11/13/23 Nitroglycerin Sl Tabs [Nitrostat] 0.4 mg SUBLINGUAL Q5M PRN tab 11/13/23 ALPRAZolam [Xanax] 0.25 mg PO BID PRN #6 tab 01/02/24 Levothyroxine Sodium [Synthroid] 100 mcg PO DAILY@0630 tab 01/02/24 Metoprolol Tartrate [Lopressor] 50 mg PO BID@0800,1700 tab 01/02/24 Allergies Allergy/AdvReac Type Severity Reaction Status Date / Time Penicillins Allergy Rash/Hives Verified 12/29/23 14:16 @ Allergy testing site strawberry Allergy Rash/Hives Verified 12/29/23 14:16 all over body tramadol Allergy Unknown Verified 12/29/23 14:16 Review of Systems ROS Statement: Those systems with pertinent positive or pertinent negative responses have been documented in the HPI. Review of Systems: CONST: Denies fever EYES: Denies blurry vision ENT: Denies nasal congestion C/V: Endorses heart palpitations RESP: Endorses dyspnea GI: Denies abdominal pain : Denies dysuria SKIN: Denies rash. MSK: Denies joint pain. NEURO: Denies headache ROS Other: All systems not noted in ROS Statement are negative. Past Medical History Past Medical History: Atrial Fibrillation, Hyperlipidemia, Hypertension, Osteoarthritis (OA), Pulmonary Embolus (PE), Thyroid Disorder Additional Past Medical History / Comment(s): PE bilateral with EKOS 02/2022 History of Any Multi-Drug Resistant Organisms: None Reported Past Surgical History: Cholecystectomy, Hysterectomy Additional Past Surgical History / Comment(s): Pt states she had a rt hip replacement 20 years ago, right knee replacement jul 2022 Past Anesthesia/Blood Transfusion Reactions: No Reported Reaction Past Psychological History: No Psychological Hx Reported Smoking Status: Never smoker Past Alcohol Use History: None Reported Past Drug Use History: None Reported - Past Family History Father Family Medical History: AICD/Pacemaker Additional Family Medical History / Comment(s): cabg at 84 Mother Additional Family Medical History / Comment(s): non hodgkins lymphoma General Exam - General Exam Comments Initial Comments: General: Appears in no acute distress. HEAD: Normal with no signs of head trauma. EYES: PERRLA, EOMI, conjunctiva normal, no discharge. ENT: Hearing grossly intact, normal oropharynx. RESPIRATORY: Clear breath sounds bilaterally. No wheezes, rales, or rhonchi. No hypoxia on baseline 5 L nasal cannula. C/V: Irregular rate and rhythm. S1 and S2 auscultated, significant peripheral edema, peripheral pulses 2+ and intact throughout ABD: Abd is soft, nontender, nondistended EXT: Normal range of motion, no obvious deformity SKIN: No rashes or lesions observed on exposed skin. NEURO: Alert and oriented x 4. Limitations: no limitations Course Vital Signs 01/10/24 02:41 Temperature 97.2 F L Pulse Rate 110 H Respiratory 24 Rate Blood Pressure 111/45 O2 Sat by Pulse 98 Oximetry Medical Decision Making - Medical Decision Making Was pt. sent in by a medical professional or institution (, PA, FRENCH TRANSLATOR, urgent care, hospital, or [facility]...) When possible be specific @ -No Did you speak to anyone other than the patient for history (EMS, parent, family, police, friend...)? What history was obtained from this source @ -No Did you review nursing and triage notes (agree or disagree)? Why? @ -I reviewed and agree with nursing and triage notes Were old charts reviewed (outside hosp., previous admission, EMS record, old EKG, old radiological studies, urgent care reports/EKG's, [facility] records)? Report findings @ -Old charts reviewed Differential Diagnosis (chest pain, altered mental status, abdominal pain women, abdominal pain men, vaginal bleeding, weakness, fever, dyspnea, syncope, headache, dizziness, GI bleed, back pain, seizure, CVA, palpatations, mental health, musculoskeletal)? @ -Differential Dyspnea: Coronary syndrome, arrhythmia, tamponade, asthma, COPD, pulmonary embolism, pneumonia, pneumothorax, pulmonary effusion, anaphylaxis, diabetic ketoacidosis, flailed chest, pulmonary contusion, diaphragmatic rupture, anemia, neuromuscular, this is not meant to be an all-inclusive list. EKG interpreted by me (3pts min.). @ -As above X-rays interpreted by me (1pt min.). @ -Chest x-ray reveals bilateral pulm vascular congestion with elevated right hemidiaphragm and right-sided pleural effusion as well as left-sided pleural effusion. CT interpreted by me (1pt min.). @ -None done U/S interpreted by me (1pt. min.). @ -None done What testing was considered but not performed or refused? (CT, X-rays, U/S, labs)? Why? @ -None What meds were considered but not given or refused? Why? @ -None Did you discuss the management of the patient with other professionals (professionals i.e. , PA, FRENCH TRANSLATOR, lab, RT, psych nurse, healthcare social worker, procurement director, teacher, data officer, field nurse case manager)? Give summary @ - I spoke with the admitting physician, Dr. Regulo Greene who accepted the admission. Was smoking cessation discussed for >3mins.? @ -No Was critical care preformed (if so, how long)? @ -No Were there social determinants of health that impacted care today? How? (Homelessness, low income, unemployed, alcoholism, drug addiction, transportation, low edu. Level, literacy, decrease access to med. care, [facility], rehab)? @ -No Was there de-escalation of care discussed even if they declined (Discuss DNR or withdrawal of care, Hospice)? DNR status @ -No What co-morbidities impacted this encounter? (DM, HTN, Smoking, COPD, CAD, Cancer, CVA, ARF, Chemo, Hep., AIDS, mental health diagnosis, sleep apnea, morbid obesity)? @ -CHF, atrial fibrillation Was patient admitted / discharged? Hospital course, mention meds given and route, prescriptions, significant lab abnormalities, going to OR and other pertinent info. @ -Based on the patient's presentation and physical exam, presents emergency department complaining of shortness of breath, heart palpitations as well as mild chest tightness over the last few weeks worse over the last 3 days. We will obtain cardiopulmonary workup. Appears to be CHF related. She was relatively rate controlled for her A-fib with heart rate typically between 95 and 110. Patient was in agreement this plan. Will continue home nasal cannula oxygen. Vital signs otherwise within acceptable limits at this time. EKG showed no signs of acute ischemia.Chest x-ray shows pulmonary vascular congestion with bilateral pleural effusions. Patient's laboratory studies are remarkable for elevated BNP of 11,000, undetectable troponin. Patient is COVID- positive. Remainder the labs are within acceptable limits. I discussed the results with the patient. She will be admitted at this time. She will be given IV Lasix. Will trend the troponin. She was in agreement this plan. We will consult cardiology and pulmonology to evaluate the patient. I spoke with the admitting physician, Dr. Regulo Greene who accepted the admission. Undiagnosed new problem with uncertain prognosis? @ -No Drug Therapy requiring intensive monitoring for toxicity (Heparin, Nitro, Insulin, Cardizem)? @ -No Were any procedures done? @ -No Diagnosis/symptom? @ -COVID-19 infection, CHF exacerbation, pleural effusions Acute, or Chronic, or Acute on Chronic? @ -Acute Uncomplicated (without systemic symptoms) or Complicated (systemic symptoms)? @ -Complicated Side effects of treatment? @ -None Exacerbation, Progression, or Severe Exacerbation] @ -No Poses a threat to life or bodily function? @ -Yes - Lab Data Result diagrams: 01/10/24 03:13 01/10/24 03:13 Lab Results 01/10/24 01/10/24 01/10/24 Range/Units 03:13 03:13 03:13 WBC 6.0 (3.8-10.6) k/uL RBC 3.78 L (3.80-5.40) m/uL Hgb 12.4 (11.4-16.0) gm/dL Hct 39.2 (34.0-46.0) % MCV 103.7 H (80.0-100.0) fL MCH 32.9 (25.0-35.0) pg MCHC 31.8 (31.0-37.0) g/dL RDW 18.4 H (11.5-15.5) % Plt Count 221 (150-450) k/uL MPV 8.8 Hypochromasia Slight Anisocytosis Slight Macrocytosis Marked A Sodium 134 L (137-145) mmol/L Potassium 4.0 (3.5-5.1) mmol/L Chloride 97 L (98-107) mmol/L Carbon Dioxide 32 H (22-30) mmol/L Anion Gap 5 mmol/L BUN 32 H (7-17) mg/dL Creatinine 1.39 H (0.52-1.04) mg/dL Est GFR (CKD-EPI)AfAm 43 (>60 ml/min/1.73 sqM) Est GFR (CKD-EPI)NonAf 37 (>60 ml/min/1.73 sqM) Glucose 90 (74-99) mg/dL Calcium 9.0 (8.4-10.2) mg/dL Magnesium 2.1 (1.6-2.3) mg/dL Total Bilirubin 1.0 (0.2-1.3) mg/dL AST 37 H (14-36) U/L ALT 21 (4-34) U/L Alkaline Phosphatase 128 H (38-126) U/L Troponin I <0.012 (0.000-0.034) ng/mL NT-Pro-B Natriuret Pep 85737 pg/mL Total Protein 5.6 L (6.3-8.2) g/dL Albumin 3.1 L (3.5-5.0) g/dL Influenza Type A (PCR) (Not Detectd) Influenza Type B (PCR) (Not Detectd) RSV (PCR) (Not Detectd) SARS-CoV-2 (PCR) (Not Detectd) 01/10/24 Range/Units 03:20 WBC (3.8-10.6) k/uL RBC (3.80-5.40) m/uL Hgb (11.4-16.0) gm/dL Hct (34.0-46.0) % MCV (80.0-100.0) fL MCH (25.0-35.0) pg MCHC (31.0-37.0) g/dL RDW (11.5-15.5) % Plt Count (150-450) k/uL MPV Hypochromasia Anisocytosis Macrocytosis Sodium (137-145) mmol/L Potassium (3.5-5.1) mmol/L Chloride (98-107) mmol/L Carbon Dioxide (22-30) mmol/L Anion Gap mmol/L BUN (7-17) mg/dL Creatinine (0.52-1.04) mg/dL Est GFR (CKD-EPI)AfAm (>60 ml/min/1.73 sqM) Est GFR (CKD-EPI)NonAf (>60 ml/min/1.73 sqM) Glucose (74-99) mg/dL Calcium (8.4-10.2) mg/dL Magnesium (1.6-2.3) mg/dL Total Bilirubin (0.2-1.3) mg/dL AST (14-36) U/L ALT (4-34) U/L Alkaline Phosphatase (38-126) U/L Troponin I (0.000-0.034) ng/mL NT-Pro-B Natriuret Pep pg/mL Total Protein (6.3-8.2) g/dL Albumin (3.5-5.0) g/dL Influenza Type A (PCR) Not Detected (Not Detectd) Influenza Type B (PCR) Not Detected (Not Detectd) RSV (PCR) Not Detected (Not Detectd) SARS-CoV-2 (PCR) Detected A (Not Detectd) - EKG Data -: EKG Interpreted by Me EKG Comments: 12-lead Electrocardiogram Interpretation Note EKG was reviewed and interpreted by myself. 12-lead ECG performed at 0253 is interpreted by me as revealing A-fib at a rate of 107 beats per minute. [place] is normal. QRS duration is 98 ms, QTc is 414 ms.. There were no ST or T wave abnormalities to suggest myocardial ischemia or injury. R wave progression across the precordium was satisfactory. By my interpretation this EKG is non- diagnostic for acute ischemia. Disposition Clinical Impression: COVID-19 virus infection, CHF (congestive heart failure), Pleural effusion Disposition: ADMITTED IP TO THIS HOSP Condition: Stable Referrals: Regulo Greene DO [Primary Care Provider] - 1-2 days Time of Disposition: 04:34
[2024-01-10] MEDS: ASPIRIN 81 MG PO STA (03:34)
[2024-01-10 03:56] LABS: ALT 21 U/L (4-34); AST 37 U/L (14-36); African American GFR (CKD) 43 (>60 ml/min/1.73 sqM); Albumin 3.1 g/dL (3.5-5.0); Alkaline Phosphatase 128 U/L (38-126); Anion Gap 5 mmol/L; Blood Urea Nitrogen 32 mg/dL (7-17); Carbon Dioxide 32 mmol/L (22-30); Chloride 97 mmol/L (98-107); Glucose 90 mg/dL (74-99); Magnesium 2.1 mg/dL (1.6-2.3); Non-African American GFR(CKD) 37 (>60 ml/min/1.73 sqM); Sodium 134 mmol/L (137-145); Total Protein 5.6 g/dL (6.3-8.2)
[2024-01-10 04:03] LABS: NT-Pro-B-Type Natriuretic Pept 11500 pg/mL
[2024-01-10 04:25] LABS: Anisocytosis Slight; Basophils % (A) 1 %; Eosinophils # (A) 0.1 k/uL (0-0.7); Eosinophils % (A) 1 %; HCT 39.2 % (34.0-46.0); HGB 12.4 gm/dL (11.4-16.0); Hypochromasia Slight; Lymphocytes # (A) 1.1 k/uL (1.0-4.8); Lymphocytes % (A) 18 %; MCH 32.9 pg (25.0-35.0); MCHC 31.8 g/dL (31.0-37.0); MCV 103.7 fL (80.0-100.0); Macrocytosis Marked; Mean Platelet Volume 8.8; Monocytes # (A) 0.3 k/uL (0-1.0); Monocytes % (A) 6 %; Neutrophils # (A) 4.4 k/uL (1.3-7.7); Neutrophils % (A) 73 %; Platelet Count 221 k/uL (150-450); RBC 3.78 m/uL (3.80-5.40); RDW 18.4 % (11.5-15.5)
[2024-01-10] MEDS ORDERED: NALOXONE 0.4 MG/ML 1 ML VIAL IV PRN (04:34)
[2024-01-10] MEDS: FUROSEMIDE 10 MG/ML 4 ML VIAL IV STA (04:43)
[2024-01-10 04:56] LABS: INR 1.3 (<1.2); Partial Thromboplastin Time 41.6 sec (22.0-30.0)
[2024-01-10] MEDS: ALBUTEROL HFA INHALER INHALATION PRN (05:15)
[2024-01-10] MEDS: METOPROLOL TARTRATE 50 MG TAB PO SCH (05:49)
[2024-01-10] MEDS ORDERED: IPRATROPIUM-ALBUTEROL 3 ML NEB INHALATION SCH (06:00)
[2024-01-10] MEDS: LEVOTHYROXINE 100 MCG TAB PO SCH (06:34)
[2024-01-10 06:55] LABS: Poikilocytosis (M) Present
[2024-01-10] MEDS ORDERED: METOPROLOL TARTRATE 5 MG/5 ML VIAL IVP PRN (06:58)
[2024-01-10] MEDS: METOPROLOL TARTRATE 5 MG/5 ML VIAL IVP STA (07:02)
--- NOTE | 2024-01-10 07:14 | XR ---
EXAM: XR Chest, 2 Views CLINICAL HISTORY: ITS.REASON XR Reason: Chest Pain TECHNIQUE: Frontal and lateral views of the chest. COMPARISON: 12/29/2023 FINDINGS: Lungs: Patchy perihilar and basilar airspace opacities. Hazy appearance of the lungs. Prominent and ill-defined bronchovascular markings. Pleural space: Probable small right pleural effusion. No pneumothorax. Heart: Unremarkable. No cardiomegaly. Mediastinum: Prominent cardiomediastinal hilar silhouette again seen. Bones/joints: Unremarkable. No acute fracture. Upper abdomen: Apparent elevation right diaphragm, similar. IMPRESSION: 1. 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 2. Probable mild to moderate congestive edema and atelectasis with trace effusion. 3. Overall, findings are slightly increased compared to prior exam.
[2024-01-10] MEDS: FUROSEMIDE 10 MG/ML 4 ML VIAL IV SCH (08:27)
[2024-01-10] MEDS: APIXABAN 5 MG TAB PO SCH (08:27)
[2024-01-10] MEDS: ALBUTEROL HFA INHALER INHALATION SCH (09:18)
[2024-01-10] MEDS ORDERED: MAGNESIUM HYDROXIDE 2,400 MG/30 ML CUP PO PRN (09:51)
[2024-01-10] MEDS ORDERED: NA PHOS,M-B/NA PHOS,DI-BA 133 ML ENEMA RECTAL PRN (09:51)
[2024-01-10] MEDS ORDERED: NITROGLYCERIN SL TABS 0.4 MG TAB SUBLINGUAL PRN (09:51)
--- NOTE | 2024-01-10 10:36 | P.CRDCN ---
History of Present Illness History of present illness: HISTORY OF PRESENT ILLNESS: This is a 73-year-old female with a past medical history significant for persistent atrial fibrillation, pulmonary embolism with EKOS, hypertension, hyperlipidemia, hypothyroidism, pulmonary hypertension, congestive heart failure, and morbid obesity. Patient follows in the office with Dr. Sylvester. We have been asked to see the patient in consultation for congestive heart failure. Patient examined at the bedside in the emergency room. Patient was admitted to the hospital earlier this month for an acute exacerbation of congestive heart failure. She was discharged to [facility]. She presented back to the emergency room yesterday with a chief complaint of shortness of breath. She states that she has been feeling short of breath for the past week. She states that she is unable to lay flat in bed and has been waking up at night short of breath. She states that she has been laying propped up to sleep. She reports chronic lower extremity edema although it is worsened than her baseline. She denies any chest pain or pressure. She was also found to be positive for COVID. She was started on IV Lasix per the emergency room physician. Patient's vital signs are stable. Bedside telemetry reveals atrial fibrillation with controlled ventricular rate. DIAGNOSTICS: - EKG reveals atrial fibrillation with mildly uncontrolled ventricular rate of 107. No signs of acute ischemia.. 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 Probable mild to moderate congestive edema and atelectasis with trace effusion.. - Laboratory data: WBC 6.0. Hemoglobin 12.4. Platelet count 221. Sodium 134. Potassium 4.0. BUN 32. Creatinine 1.39. Troponin negative x 3. proBNP 11,500. - Current home cardiac medications include Farxiga 10 mg daily, Aldactone 25 mg daily, Eliquis 5 mg twice a day, Lasix 40 mg twice a day, midodrine 10 mg twice a day. - Patient underwent RICO and cardioversion on November 07, 2023. RICO revealed mild to moderate AR, severe MR, moderate TR, no evidence of PFO, EF 55% patient states she stayed in sinus mechanism for 1 day and then went back into atrial fibrillation. - Most recent echocardiogram obtained in September 2023 revealed ejection fraction 45 to 50% - Cardiac catheterization history: October 2023 revealing normal coronary arteries with elevated left-sided filling pressures REVIEW OF SYSTEMS: At the time of my exam: CONSTITUTIONAL: Denies fever or chills. HEENT: Denies blurred vision, vision changes, or eye pain. Denies hemoptysis CARDIOVASCULAR: Denies chest pain. Reports orthopnea. Reports PND. Denies palpitations RESPIRATORY: Reports shortness of breath. GASTROINTESTINAL: Denies abdominal pain. Denies nausea or vomiting. HEMATOLOGIC: Denies bleeding disorders. GENITOURINARY: Denies any blood in urine. SKIN: Denies pruitis. Denies rash. PHYSICAL EXAM: VITAL SIGNS: Reviewed. GENERAL: Well-developed in no acute distress. HEENT: Head is normocephalic. Pupils are equal, round. Sclerae anicteric. Mucous membranes of the mouth are moist. Neck supple. No JVD LUNGS: Respirations even and unlabored. Lungs with bilateral crackles HEART: Irregular rate and rhythm. S1 and S2 heard. + systolic murmur ABDOMEN: Soft. Nondistended. Nontender. EXTREMITIES: Normal range of motion. No clubbing or cyanosis. Peripheral pulses intact. 2-3+ bilateral lower extremity edema NEUROLOGIC: Awake and alert. Oriented x 3. ASSESSMENT: Shortness of breath Acute COVID-19 Acute on chronic heart failure with preserved EF, 55% per RICO in October 2023 Recent hospitalization for CHF, December 2023 Normal coronary arteries, per cardiac catheterization, 10/2023 Persistent atrial fibrillation History of RICO and cardioversion, October 2023, lasting approximately 24 hours before going back into atrial fibrillation per patient History of bilateral PE with EKOS procedure, February 2022 History of right pleural effusion, status post thoracentesis 10/08/2023 with removal of 1200 cc History of left pleural effusion, status post thoracentesis 10/09/2023 with removal of 550 cc History of hypertension History of hyperlipidemia History of hypothyroidism Pulmonary hypertension Morbid obesity: BMI 45.4 Valvular heart disease PLAN: 2D echo has been ordered. Await results. Continue IV diuresis with Lasix 40 mg every 8 hours Daily weights, accurate I&O, and monitoring of kidney function Continue additional home cardiac medications Patient with severe MR on recent RICO. Consider outpatient right heart cath and possible mitral clipping Further recommendations pending patient course Nurse practitioner note has been reviewed by physician. Signing provider agrees with the documented findings, assessment, and plan of care documented by IMPREGNATOR HELPER as a scribe. Past Medical History Past Medical History: Atrial Fibrillation, Hyperlipidemia, Hypertension, Osteoarthritis (OA), Pulmonary Embolus (PE), Thyroid Disorder Additional Past Medical History / Comment(s): PE bilateral with EKOS 02/2022 History of Any Multi-Drug Resistant Organisms: None Reported Past Surgical History: Cholecystectomy, Hysterectomy Additional Past Surgical History / Comment(s): Pt states she had a rt hip replacement 20 years ago, right knee replacement jul 2022 Past Anesthesia/Blood Transfusion Reactions: No Reported Reaction Past Psychological History: No Psychological Hx Reported Smoking Status: Never smoker Past Alcohol Use History: None Reported Past Drug Use History: None Reported - Past Family History Father Family Medical History: AICD/Pacemaker Additional Family Medical History / Comment(s): cabg at 84 Mother Additional Family Medical History / Comment(s): non hodgkins lymphoma Medications and Allergies Home Medications Medication Instructions Recorded Confirmed Type Apixaban [Eliquis] 5 mg PO BID@0800,1700 09/09/22 01/10/24 History Magnesium 250 mg PO DAILY@0800 09/26/23 01/10/24 History Albuterol Sulfate [Ventolin HFA] 1 puff INHALATION RT-QID PRN 11/07/23 01/10/24 History Dapagliflozin Propanediol [Farxiga] 10 mg PO DAILY@0600 11/07/23 01/10/24 History Docusate [Colace] 100 mg PO BID@0800,1700 11/07/23 01/10/24 History Ipratropium-Albuterol Nebulize 3 ml INHALATION RT-Q6H@00,06,12,18 11/07/23 01/10/24 History [Duoneb 0.5 mg-3 mg/3 ml Soln] Magnesium Hydroxide [Milk of 7,200 mg PO DAILY PRN 11/07/23 01/10/24 History Magnesia Concentrate] Melatonin 5 mg PO HS@2100 11/07/23 01/10/24 History Na Phos,M-B/Na Phos,Di-Ba [Fleet 133 ml RECTAL DAILY PRN 11/07/23 01/10/24 History Adult] Potassium Chloride ER [K-Dur 20] 20 meq PO DAILY@1700 11/07/23 01/10/24 History bisacodyL [Dulcolax] 10 mg RECTAL DAILY PRN 11/07/23 01/10/24 History polyethylene glycoL 3350 [Miralax] 17 gm PO DAILY@0800 11/07/23 01/10/24 History Calcium Carbonate [Tums] 500 mg PO QID PRN tab 11/13/23 01/10/24 Rx Nitroglycerin Sl Tabs [Nitrostat] 0.4 mg SUBLINGUAL Q5M PRN tab 11/13/23 01/10/24 Rx Lidocaine 5% Patch [Lidoderm 5% 1 patch TOPICAL DAILY@0800 12/29/23 01/10/24 History Patch] Midodrine HCl [ProAmatine] 10 mg PO BID@0600,1200 12/29/23 01/10/24 History Nystatin 100,000 Unit/gm Powd 1 applic TOPICAL BID@0800,1700 12/29/23 01/10/24 History [Mycostatin Powder] ALPRAZolam [Xanax] 0.25 mg PO BID PRN #6 tab 01/02/24 01/10/24 Rx Levothyroxine Sodium [Synthroid] 100 mcg PO DAILY@0630 tab 01/02/24 01/10/24 Rx Acetaminophen [Tylenol 8 Hour] 1,300 mg PO Q4H PRN 01/10/24 01/10/24 History Furosemide [Lasix] 40 mg PO BID@0600,1400 01/10/24 01/10/24 History Metoprolol Tartrate [Lopressor] 50 mg PO BID@0800,2100 01/10/24 01/10/24 History Spironolactone [Aldactone] 25 mg PO DAILY@0800 01/10/24 01/10/24 History Allergies Allergy/AdvReac Type Severity Reaction Status Date / Time Penicillins Allergy Rash/Hives Verified 01/10/24 08:39 @ Allergy testing site strawberry Allergy Rash/Hives Verified 01/10/24 08:39 all over body tramadol Allergy Unknown Verified 01/10/24 08:39 Physical Exam Vitals: Vital Signs Temp Pulse Resp BP Pulse Ox 01/10/24 09:18 97 01/10/24 08:33 105 H 18 103/72 98 01/10/24 06:35 118 H 22 108/73 98 01/10/24 05:46 115 H 20 107/75 95 01/10/24 02:41 97.2 F L 110 H 24 111/45 98 Intake and Output 01/09/24 01/10/24 01/10/24 22:59 06:59 14:59 Other: Weight 123.831 kg Results 01/10/24 03:13 01/10/24 03:13 Cardiac Enzymes 01/10/24 01/10/24 01/10/24 Range/Units 03:13 03:13 06:25 AST 37 H (14-36) U/L Troponin I <0.012 <0.012 (0.000-0.034) ng/mL 01/10/24 Range/Units 09:19 AST (14-36) U/L Troponin I <0.012 (0.000-0.034) ng/mL Coagulation 01/10/24 Range/Units 03:13 PT 14.0 H (10.0-12.5) sec APTT 41.6 H (22.0-30.0) sec CBC 01/10/24 Range/Units 03:13 WBC 6.0 (3.8-10.6) k/uL RBC 3.78 L (3.80-5.40) m/uL Hgb 12.4 (11.4-16.0) gm/dL Hct 39.2 (34.0-46.0) % Plt Count 221 (150-450) k/uL Comprehensive Metabolic Panel 01/10/24 Range/Units 03:13 Sodium 134 L (137-145) mmol/L Potassium 4.0 (3.5-5.1) mmol/L Chloride 97 L (98-107) mmol/L Carbon Dioxide 32 H (22-30) mmol/L BUN 32 H (7-17) mg/dL Creatinine 1.39 H (0.52-1.04) mg/dL Glucose 90 (74-99) mg/dL Calcium 9.0 (8.4-10.2) mg/dL AST 37 H (14-36) U/L ALT 21 (4-34) U/L Alkaline Phosphatase 128 H (38-126) U/L Total Protein 5.6 L (6.3-8.2) g/dL Albumin 3.1 L (3.5-5.0) g/dL Current Medications Generic Name Dose Route Start Last Admin Trade Name Freq PRN Reason Stop Dose Admin Acetaminophen 1,000 mg 01/10/24 09:54 Acetaminophen Tab 500 Mg Tab PO Q4H PRN Fever and/ or Pain Albuterol Sulfate 1 puff 01/10/24 04:36 01/10/24 05:15 Albuterol Hfa Inhaler INHALATION 1 puff RT-QID PRN Administration Shortness Of Breath Albuterol Sulfate 2 puff 01/10/24 08:00 01/10/24 09:18 Albuterol Hfa Inhaler INHALATION 2 puff RT-QID ANNA Administration Alprazolam 0.25 mg 01/10/24 09:54 Alprazolam 0.25 Mg Tab PO BID PRN Anxiety Apixaban 5 mg 01/10/24 08:00 01/10/24 08:27 Apixaban 5 Mg Tab PO 5 mg BID@0800,1700 [facility] Administration Protocol Docusate Sodium 100 mg 01/10/24 17:00 Docusate 100 Mg Cap PO BID@0800,1700 [facility] Furosemide 40 mg 01/10/24 08:00 01/10/24 08:27 Furosemide 10 Mg/Ml 4 Ml Vial IV 40 mg Q8HR [facility] Administration Levothyroxine Sodium 100 mcg 01/10/24 06:30 01/10/24 06:34 Levothyroxine 100 Mcg Tab PO 100 mcg DAILY@0630 [facility] Administration Magnesium Hydroxide 2,400 mg 01/10/24 09:51 Magnesium Hydroxide 2,400 Mg/30 Ml Cup PO DAILY PRN Constipation Magnesium Oxide 200 mg 01/11/24 08:00 Magnesium Oxide 400 Mg Tab PO DAILY@0800 [facility] Melatonin 5 mg 01/10/24 21:00 Melatonin 5 Mg Tablet PO HS@2100 [facility] Metoprolol Tartrate 50 mg 01/10/24 08:00 01/10/24 05:49 Metoprolol Tartrate 50 Mg Tab PO 50 mg BID@0800,1700 [facility] Administration Metoprolol Tartrate 2.5 mg 01/10/24 06:58 Metoprolol Tartrate 5 Mg/5 Ml Vial IVP Q6HR PRN Cardiac Arrhythmia Midodrine 10 mg 01/10/24 12:00 Midodrine 5 Mg Tab PO BID@0600,1200 [facility] Naloxone HCl 0.2 mg 01/10/24 04:34 Naloxone 0.4 Mg/Ml 1 Ml Vial IV Q2M PRN Opioid Reversal Nitroglycerin 0.4 mg 01/10/24 09:51 Nitroglycerin Sl Tabs 0.4 Mg Tab SUBLINGUAL Q5M PRN Chest Pain Nystatin 1 applic 01/10/24 17:00 Nystatin 100,000 Unit/Gm Powd 15 Gm TOPICAL BID@0800,1700 [facility] Protocol Pantoprazole Sodium 40 mg 01/10/24 10:00 Pantoprazole 40 Mg/10 Ml Vial IVP DAILY [facility] Polyethylene Glycol 17 gm 01/11/24 08:00 Polyethylene Glycol 3350 17 Gm Powd.Pack PO DAILY@0800 [facility] Intake and Output 01/09/24 01/10/24 01/10/24 22:59 06:59 14:59 Other: Weight 123.831 kg 01/10/24 03:13 01/10/24 03:13
[2024-01-10] MEDS: PANTOPRAZOLE 40 MG/10 ML VIAL IVP SCH (10:47)
--- NOTE | 2024-01-10 13:03 | P.CNPUL ---
History of Present Illness Consult date: 01/10/24 Requesting physician: Regulo Greene Reason for consult: dyspnea, abnormal CXR/CT Chief complaint: Shortness of breath, cough, congestion History of present illness: This is a 73-year-old female patient with a known history of atrial fibrillation, pulmonary embolism, hypertension, hype per lipidemia, hypothyroidism, congestive heart failure, chronic kidney disease stage III, pleural effusions with previous thoracentesis, osteoarthritis. She was recently discharged on January 02, 2024 following a diastolic CHF exacerbation. She presented here to the emergency room early this morning from [facility] with a 3-day history of paroxysmal nocturnal dyspnea, dry cough and shortness of breath. She also had lower extremity edema. 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 Mild to moderate congestive heart failure and atelectasis with trace effusions. Stable compared to previous chest x-ray on December 29, 2023. White count 6.0. Hemoglobin 12.4. Platelets 221. Sodium 134. Potassium 4.0. Bicarb 32. BUN 32. Creatinine 1.39. Glucose 90. Troponins negative x 3. proBNP 11,500. She did test positive for COVID-19 infection. She is seen today in the emergency department. She is sitting up on the stretcher. Awake and alert in no acute distress. She is maintaining O2 saturations in the 90s on 3 L/min per nasal cannula. She has been initiated on IV diuretics. She is anticoagulated with Eliquis. Review of Systems REVIEW OF SYSTEMS: CONSTITUTIONAL: Denies any recent significant weight loss or weight gain. EYES: Denies change in vision. EARS, NOSE, MOUTH, THROAT: Denies headaches, denies sore throat. CARDIOVASCULAR: Denies chest pain, palpitations or syncopal episodes. RESPIRATORY: Positive for shortness of breath, cough, congestion no hemoptysis. GASTROINTESTINAL: Denies change in appetite, denies abdominal pain GENITOURINARY: Denies hematuria, denies infections. MUSKULOSKELETAL: Positive for lower extremity swelling. INTEGUMENTARY: Denies rash, denies eczema. NEUROLOGICAL: Denies recent memory loss, no recent seizure activity. PSYCHIATRIC: Denies anxiety, denies depression. HEMATOLOGIC/LYMPHATIC: Denies anemia, denies enlarged lymph nodes. Past Medical History Past Medical History: Atrial Fibrillation, Hyperlipidemia, Hypertension, Osteoarthritis (OA), Pulmonary Embolus (PE), Thyroid Disorder Additional Past Medical History / Comment(s): PE bilateral with EKOS 02/2022 History of Any Multi-Drug Resistant Organisms: None Reported Past Surgical History: Cholecystectomy, Hysterectomy Additional Past Surgical History / Comment(s): Pt states she had a rt hip replacement 20 years ago, right knee replacement jul 2022 Past Anesthesia/Blood Transfusion Reactions: No Reported Reaction Past Psychological History: No Psychological Hx Reported Smoking Status: Never smoker Past Alcohol Use History: None Reported Past Drug Use History: None Reported - Past Family History Father Family Medical History: AICD/Pacemaker Additional Family Medical History / Comment(s): cabg at 84 Mother Additional Family Medical History / Comment(s): non hodgkins lymphoma Medications and Allergies Home Medications Medication Instructions Recorded Confirmed Type Apixaban [Eliquis] 5 mg PO BID@0800,1700 09/09/22 01/10/24 History Magnesium 250 mg PO DAILY@0800 09/26/23 01/10/24 History Albuterol Sulfate [Ventolin HFA] 1 puff INHALATION RT-QID PRN 11/07/23 01/10/24 History Dapagliflozin Propanediol [Farxiga] 10 mg PO DAILY@0600 11/07/23 01/10/24 History Docusate [Colace] 100 mg PO BID@0800,1700 11/07/23 01/10/24 History Ipratropium-Albuterol Nebulize 3 ml INHALATION RT-Q6H@00,06,12,18 11/07/23 01/10/24 History [Duoneb 0.5 mg-3 mg/3 ml Soln] Magnesium Hydroxide [Milk of 7,200 mg PO DAILY PRN 11/07/23 01/10/24 History Magnesia Concentrate] Melatonin 5 mg PO HS@2100 11/07/23 01/10/24 History Na Phos,M-B/Na Phos,Di-Ba [Fleet 133 ml RECTAL DAILY PRN 11/07/23 01/10/24 History Adult] Potassium Chloride ER [K-Dur 20] 20 meq PO DAILY@1700 11/07/23 01/10/24 History bisacodyL [Dulcolax] 10 mg RECTAL DAILY PRN 11/07/23 01/10/24 History polyethylene glycoL 3350 [Miralax] 17 gm PO DAILY@0800 11/07/23 01/10/24 History Calcium Carbonate [Tums] 500 mg PO QID PRN tab 11/13/23 01/10/24 Rx Nitroglycerin Sl Tabs [Nitrostat] 0.4 mg SUBLINGUAL Q5M PRN tab 11/13/23 01/10/24 Rx Lidocaine 5% Patch [Lidoderm 5% 1 patch TOPICAL DAILY@0800 12/29/23 01/10/24 History Patch] Midodrine HCl [ProAmatine] 10 mg PO BID@0600,1200 12/29/23 01/10/24 History Nystatin 100,000 Unit/gm Powd 1 applic TOPICAL BID@0800,1700 12/29/23 01/10/24 History [Mycostatin Powder] ALPRAZolam [Xanax] 0.25 mg PO BID PRN #6 tab 01/02/24 01/10/24 Rx Levothyroxine Sodium [Synthroid] 100 mcg PO DAILY@0630 tab 01/02/24 01/10/24 Rx Acetaminophen [Tylenol 8 Hour] 1,300 mg PO Q4H PRN 01/10/24 01/10/24 History Furosemide [Lasix] 40 mg PO BID@0600,1400 01/10/24 01/10/24 History Metoprolol Tartrate [Lopressor] 50 mg PO BID@0800,2100 01/10/24 01/10/24 History Spironolactone [Aldactone] 25 mg PO DAILY@0800 01/10/24 01/10/24 History Allergies Allergy/AdvReac Type Severity Reaction Status Date / Time Penicillins Allergy Rash/Hives Verified 01/10/24 08:39 @ Allergy testing site strawberry Allergy Rash/Hives Verified 01/10/24 08:39 all over body tramadol Allergy Unknown Verified 01/10/24 08:39 Physical Exam Vitals: Vital Signs Temp Pulse Resp BP Pulse Ox 01/10/24 10:00 107 H 18 109/73 98 01/10/24 09:18 97 01/10/24 09:00 105 H 18 103/72 97 01/10/24 08:33 105 H 18 103/72 98 01/10/24 08:29 115 H 21 103/72 98 02/16/24 06:35 118 H 22 108/73 98 01/10/24 05:46 115 H 20 107/75 95 01/10/24 02:41 97.2 F L 110 H 24 111/45 98 Intake and Output 01/09/24 01/10/24 01/10/24 22:59 06:59 14:59 Other: Weight 123.831 kg GENERAL EXAM: Alert, obese, pleasant 73-year-old female, on 3 L nasal cannula, fairly comfortable in no apparent distress. HEAD: Normocephalic. EYES: Normal reaction of pupils, equal size. NOSE: Clear with pink turbinates. THROAT: No erythema or exudates. NECK: No masses, no JVD. CHEST: No chest wall deformity. LUNGS: Equal air entry with bibasilar crackles. CVS: S1 and S2 normal with an audible murmur, irregular rhythm. ABDOMEN: No hepatosplenomegaly, normal bowel sounds, no guarding or rigidity. SPINE: No scoliosis or deformity SKIN: No rashes CENTRAL NERVOUS SYSTEM: No focal deficits, tone is normal in all 4 extremities. EXTREMITIES: There is 1-2+ peripheral edema. No clubbing, no cyanosis. Olivia pheral pulses are intact. Results - Laboratory Findings CBC and BMP: 01/10/24 03:13 01/10/24 03:13 PT/INR, D-dimer PT 14.0 sec (10.0-12.5) H 01/10/24 03:13 INR 1.3 (<1.2) H 01/10/24 03:13 Abnormal lab findings: Abnormal Labs 01/10/24 01/10/24 01/10/24 03:13 03:13 03:13 RBC 3.78 L MCV 103.7 H RDW 18.4 H Macrocytosis Marked A PT 14.0 H INR 1.3 H APTT 41.6 H Sodium 134 L Chloride 97 L Carbon Dioxide 32 H BUN 32 H Creatinine 1.39 H AST 37 H Alkaline Phosphatase 128 H Total Protein 5.6 L Albumin 3.1 L SARS-CoV-2 (PCR) 01/10/24 03:20 RBC MCV RDW Macrocytosis PT INR APTT Sodium Chloride Carbon Dioxide BUN Creatinine AST Alkaline Phosphatase Total Protein Albumin SARS-CoV-2 (PCR) Detected A - Diagnostic Findings Chest x-ray: image reviewed Assessment and Plan Assessment: Acute on chronic hypoxemic respiratory failure secondary to acute exacerbation of diastolic congestive heart failure Acute COVID-19 infection without evidence of COVID-19 pneumonia Chronic atrial fibrillation anticoagulated with Eliquis Acute on chronic kidney disease stage III Recent discharge on January 02, 2024 for diastolic congestive heart failure History of pleural effusions with previous thoracentesis and September 2023, transudate, negative for malignancy Morbid obesity with a BMI of 45.4 kg/m History of pulmonary embolism Hypertension Hyperlipidemia Hypothyroidism Osteoarthritis Plan: The patient was seen and evaluated Chest x-ray, labs and medications reviewed Continue IV diuretics No thoracentesis planned at this time Anticoagulated with Eliquis No recommendations for COVID-19 treatment Titrate the FiO2 as tolerated We will continue to follow and make further recommendations based on her clinical status I have personally seen and examined the patient, performed the documentation and the assessment and plan as written. Number of minutes spent on the visit: 20.
[2024-01-10] MEDS: MIDODRINE 5 MG TAB PO SCH (13:33)
--- NOTE | 2024-01-10 17:05 | CA ---
Transthoracic Echo Report Name: Marile Hidalgo Age: 73 Gender: F : 1950 Exam Date: 01/10/2024 14:51 Exam Location: [facility] Ht (in): 65 Wt (lb): 273 Ordering Physician: Rom Burnette MD Attending/Referring Phys: Director Strategic Account Management Maryjo Harmon RCS Procedure CPT: Indications: chf Cardiac Hx: Technical Quality: Technically difficult study Contrast 1: Definity Total Dose (mL): 2 Contrast 2: Agitated Saline Total Dose (mL): 10 MEASUREMENTS (Male / Female) Normal Values 2D ECHO LV Diastolic Diameter PLAX 5.1 cm 4.2 - 5.9 / 3.9 - 5.3 cm LV Systolic Diameter PLAX 3.4 cm IVS Diastolic Thickness 1.0 cm 0.6 - 1.0 / 0.6 - 0.9 cm LVPW Diastolic Thickness 0.9 cm 0.6 - 1.0 / 0.6 - 0.9 cm LV Relative Wall Thickness 0.4 RV Internal Dim ED PLAX 3.7 cm LVOT Diameter 1.8 cm LV Diastolic Volume MOD BP 94.5 cm??? 67 - 155 / 56 - 104 cm??? LV Systolic Volume MOD BP 43.2 cm??? 22 - 58 / 19 - 49 cm??? LV Ejection Fraction MOD BP 54.3 % >= 55 % LV Cardiac Index MOD BP 2447.4 cm???/min???m??? LV Diastolic Volume MOD 4C 98.1 cm??? LV Systolic Volume MOD 4C 42.6 cm??? LV Ejection Fraction MOD 4C 56.5 % LV Cardiac Index MOD 4C 2645.8 cm???/min???m??? LV Diastolic Length 4C 6.6 cm LV Systolic Length 4C 5.3 cm LV Diastolic Volume MOD 2C 90.5 cm??? LV Systolic Volume MOD 2C 44.2 cm??? LV Ejection Fraction MOD 2C 51.2 % LV Cardiac Index MOD 2C 2209.8 cm???/min???m??? LV Diastolic Length 2C 6.7 cm LV Systolic Length 2C 5.3 cm LA Volume 201.3 cm??? 18 - 58 / 22 - 52 cm??? LA Volume Index 82.1 cm???/m??? 16 - 28 cm???/m??? DOPPLER AV Peak Velocity 102.8 cm/s AV Peak Gradient 4.2 mmHg AV Mean Velocity 69.6 cm/s AV Mean Gradient 2.2 mmHg AV Velocity Time Integral 16.3 cm LVOT Peak Velocity 62.3 cm/s LVOT Peak Gradient 1.6 mmHg LVOT Velocity Time Integral 8.9 cm LVOT Stroke Volume 23.8 cm??? LVOT Stroke Volume Index 10.5 ml/m??? LVOT Cardiac Index 1134.1 cm???/min???m??? AV Area Cont Eq vti 1.5 cm??? AV Area Cont Eq pk 1.6 cm??? MV Peak Velocity 176.5 cm/s MV Peak Gradient 12.5 mmHg MV Mean Velocity 95.4 cm/s MV Mean Gradient 4.9 mmHg MV Velocity Time Integral 28.0 cm MR Peak Velocity 465.3 cm/s MR Peak Gradient 86.6 mmHg MR Flow Rate PISA 111.6 cm???/s TR Peak Velocity 291.0 cm/s TR Peak Gradient 33.9 mmHg Right Ventricular Systolic Press 38.4 mmHg PV Peak Velocity 50.3 cm/s PV Peak Gradient 1.0 mmHg FINDINGS Left Ventricle Left ventricular ejection fraction is estimated at 45-50 %. Left ventricular cavity size normal. Left ventricular wall thickness normal. No obvious regional wall motion abnormalities. Right Ventricle Mild right ventricular dilatation. Generalized right ventricular hypokinesis. Mildly increased right ventricular systolic pressure. Right Atrium Severe right atrial dilatation Left Atrium Severely increased left atrial volume. Severely increased left atrial area. Mitral Valve Mitral valve thickened. [id number] mitral stenosis. Severe mitral regurgitation. Systolic flow reversal in the pulmonary veins. Centrally directed mitral regurgitation jet. Aortic Valve Trileaflet aortic valve. No aortic stenosis. No aortic regurgitation. Tricuspid Valve Structurally normal tricuspid valve. No tricuspid stenosis. Severe tricuspid regurgitation. Pulmonic Valve Structurally normal pulmonic valve. No pulmonic stenosis. Trace pulmonic regurgitation. Pericardium No pericardial effusion. Aorta Normal size aortic root and proximal ascending aorta. CONCLUSIONS Left ventricular ejection fraction 45-50% Mild right ventricular dilation Severe biatrial enlargement, left greater than right Severe central mitral regurgitation. Consider evaluation for mitral clip, mitral valve repair/replacement if clinically indicated. Severe tricuspid regurgitation No pericardial effusion Previewed by: Dr. Rene Sylvester DO (Electronically Signed) Final Date: 10 January 2024 17:04
--- NOTE | 2024-01-10 17:49 | P.HPIM ---
History of Present Illness H&P Date: 01/10/24 Chief Complaint: Dyspnea, positive COVID This is a 73-year-old female from [facility] subacute rehab readmitted with acute on chronic exacerbation of CHF, acute COVID infection, persistent atrial fibrillation, pulmonary hypertension, morbid obesity and multiple other medical issues. Recently discharged on January 02, 2024, secondary to CHF. Reports over the last few days has been waking up during her sleep with increased shortness of breath, unable to lay flat, nonproductive cough.Tested positive for COVID. Denies chest pain, palpitations. Maintaining O2 sats in the high 90s on 3 to 4 L nasal Cannula. IV push diuretics initiated in the ER. 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 Probable mild to moderate congestive edema and atelectasis with trace effusion, findings slightly increased compared to prior exam.proBNP 11,500 .afebrile ,WBC 6.0. Hemoglobin 12.4, Platelets 221. Sodium 134,Potassium 4.0, BUN 32,Creatinine 1.39. Past Medical History Past Medical History: Atrial Fibrillation, Hyperlipidemia, Hypertension, Osteoarthritis (OA), Pulmonary Embolus (PE), Thyroid Disorder Additional Past Medical History / Comment(s): PE bilateral with EKOS 02/2022 History of Any Multi-Drug Resistant Organisms: None Reported Past Surgical History: Cholecystectomy, Hysterectomy Additional Past Surgical History / Comment(s): Pt states she had a rt hip replacement 20 years ago, right knee replacement jul 2022 Past Anesthesia/Blood Transfusion Reactions: No Reported Reaction Past Psychological History: No Psychological Hx Reported Smoking Status: Never smoker Past Alcohol Use History: None Reported Past Drug Use History: None Reported - Past Family History Father Family Medical History: AICD/Pacemaker Additional Family Medical History / Comment(s): cabg at 84 Mother Additional Family Medical History / Comment(s): non hodgkins lymphoma Medications and Allergies Home Medications Medication Instructions Recorded Confirmed Type Apixaban [Eliquis] 5 mg PO BID@0800,1700 09/09/22 01/10/24 History Magnesium 250 mg PO DAILY@0800 09/26/23 01/10/24 History Albuterol Sulfate [Ventolin HFA] 1 puff INHALATION RT-QID PRN 11/07/23 01/10/24 History Dapagliflozin Propanediol [Farxiga] 10 mg PO DAILY@0600 11/07/23 01/10/24 History Docusate [Colace] 100 mg PO BID@0800,1700 11/07/23 01/10/24 History Ipratropium-Albuterol Nebulize 3 ml INHALATION RT-Q6H@00,06,12,18 11/07/23 01/10/24 History [Duoneb 0.5 mg-3 mg/3 ml Soln] Magnesium Hydroxide [Milk of 7,200 mg PO DAILY PRN 11/07/23 01/10/24 History Magnesia Concentrate] Melatonin 5 mg PO HS@2100 11/07/23 01/10/24 History Na Phos,M-B/Na Phos,Di-Ba [Fleet 133 ml RECTAL DAILY PRN 11/07/23 01/10/24 History Adult] Potassium Chloride ER [K-Dur 20] 20 meq PO DAILY@1700 11/07/23 01/10/24 History bisacodyL [Dulcolax] 10 mg RECTAL DAILY PRN 11/07/23 01/10/24 History polyethylene glycoL 3350 [Miralax] 17 gm PO DAILY@0800 11/07/23 01/10/24 History Calcium Carbonate [Tums] 500 mg PO QID PRN tab 11/13/23 01/10/24 Rx Nitroglycerin Sl Tabs [Nitrostat] 0.4 mg SUBLINGUAL Q5M PRN tab 11/13/23 01/10/24 Rx Lidocaine 5% Patch [Lidoderm 5% 1 patch TOPICAL DAILY@0800 12/29/23 01/10/24 History Patch] Midodrine HCl [ProAmatine] 10 mg PO BID@0600,1200 12/29/23 01/10/24 History Nystatin 100,000 Unit/gm Powd 1 applic TOPICAL BID@0800,1700 12/29/23 01/10/24 History [Mycostatin Powder] ALPRAZolam [Xanax] 0.25 mg PO BID PRN #6 tab 01/02/24 01/10/24 Rx Levothyroxine Sodium [Synthroid] 100 mcg PO DAILY@0630 tab 01/02/24 01/10/24 Rx Acetaminophen [Tylenol 8 Hour] 1,300 mg PO Q4H PRN 01/10/24 01/10/24 History Furosemide [Lasix] 40 mg PO BID@0600,1400 01/10/24 01/10/24 History Metoprolol Tartrate [Lopressor] 50 mg PO BID@0800,2100 01/10/24 01/10/24 History Spironolactone [Aldactone] 25 mg PO DAILY@0800 01/10/24 01/10/24 History Allergies Allergy/AdvReac Type Severity Reaction Status Date / Time Penicillins Allergy Rash/Hives Verified 01/10/24 08:39 @ Allergy testing site strawberry Allergy Rash/Hives Verified 01/10/24 08:39 all over body tramadol Allergy Unknown Verified 01/10/24 08:39 Physical Exam Vitals: Vital Signs Temp Pulse Resp BP Pulse Ox 01/10/24 09:18 97 01/10/24 08:33 105 H 18 103/72 98 01/10/24 06:35 118 H 22 108/73 98 01/10/24 05:46 115 H 20 107/75 95 01/10/24 02:41 97.2 F L 110 H 24 111/45 98 Intake and Output 01/09/24 01/10/24 01/10/24 22:59 06:59 14:59 Other: Weight 123.831 kg PHYSICAL EXAM: VITAL SIGNS: [As above] GENERAL: Alert and oriented 3, sitting up in bed, no acute distress. HEENT: Normocephalic, Conjunctivae normal.MMM. NECK: Supple, No JVD. CARDIOVASCULAR: S1, S2 normal. irregular rhythm. Systolic murmur. RESPIRATION: Unlabored, equal air entry, fine bibasilar crackles ABDOMEN: Soft, nondistended, nontender. +BS. LEGS: chronic bilateral lower extremity edema. NERVOUS SYSTEM: Cranial nerves II through XII grossly intact. Skin: Warm and dry. Results CBC & Chem 7: 01/10/24 03:13 01/10/24 03:13 Labs: Abnormal Lab Results - Last 24 Hours (Table) 01/10/24 01/10/24 01/10/24 Range/Units 03:13 03:13 03:13 RBC 3.78 L (3.80-5.40) m/uL MCV 103.7 H (80.0-100.0) fL RDW 18.4 H (11.5-15.5) % Macrocytosis Marked A PT 14.0 H (10.0-12.5) sec INR 1.3 H (<1.2) APTT 41.6 H (22.0-30.0) sec Sodium 134 L (137-145) mmol/L Chloride 97 L (98-107) mmol/L Carbon Dioxide 32 H (22-30) mmol/L BUN 32 H (7-17) mg/dL Creatinine 1.39 H (0.52-1.04) mg/dL AST 37 H (14-36) U/L Alkaline Phosphatase 128 H (38-126) U/L Total Protein 5.6 L (6.3-8.2) g/dL Albumin 3.1 L (3.5-5.0) g/dL SARS-CoV-2 (PCR) (Not Detectd) 01/10/24 Range/Units 03:20 RBC (3.80-5.40) m/uL MCV (80.0-100.0) fL RDW (11.5-15.5) % Macrocytosis PT (10.0-12.5) sec INR (<1.2) APTT (22.0-30.0) sec Sodium (137-145) mmol/L Chloride (98-107) mmol/L Carbon Dioxide (22-30) mmol/L BUN (7-17) mg/dL Creatinine (0.52-1.04) mg/dL AST (14-36) U/L Alkaline Phosphatase (38-126) U/L Total Protein (6.3-8.2) g/dL Albumin (3.5-5.0) g/dL SARS-CoV-2 (PCR) Detected A (Not Detectd) Assessment and Plan Assessment: Acute on chronic CHF exacerbation, diastolic dysfunction, EF 55 %, recently discharged on January 02, 2024, secondary to CHF Acute COVID 19 infection Acute on chronic hypoxic respiratory failure secondary to the above History of pleural effusions with previous thoracentesis and September 2023, transudate, negative for malignancy Chronic renal failure stage IIIa Chronic Atrial fibrillation with rapid ventricular rate, status post RICO and cardioversion,11/16 reporting severe MR History of Bilateral pleural effusions status post bilateral thoracentesis,transudative;Cytology negative for malignancy Pulmonary embolism bilaterally status post EKOS, 03/14/2022 Pulmonary hypertension Moderate mitral and tricuspid regurgitation Hypothyroidism, levothyroxine dose recently increased on last admission Hypertension, Hyperlipidemia Osteoarthritis with history right knee placement in July 2022. Morbid obesity, BMI 45 Anxiety Plan: Continue on current medication regimen ,monitoring and symptomatic treatment. Echo pending. IV push diuretics. Close monitoring of renal function with repeat labs ordered for a.m. Strict I&O's/CHF pathway. COVID cocktail ordered. Cardiology and pulmonary consulted with recommendations pending. PT/OT with return to subacute rehab at discharge. The impression and plan of care has been dictated as directed. : I performed a history and examination of this patient, discussed the same with the dictator. I agree with the dictator's note ,documented as a scribe. Any additional findings or plans will be noted.
[2024-01-10] MEDS: BUMETANIDE 0.25 MG/ML 10 ML VIAL IV SCH (17:53)
[2024-01-10] MEDS: NYSTATIN 100,000 UNIT/GM POWD 15 GM TOPICAL SCH (17:54)
[2024-01-10] MEDS: POTASSIUM CHLORIDE ER 20 MEQ TAB.ER PO SCH (17:54)
[2024-01-10] MEDS: CHOLECALCIFEROL 125 MCG (5000 IU) TABLET PO SCH (17:59)
[2024-01-10] MEDS: DOCUSATE 100 MG CAP PO SCH (17:59)
[2024-01-10] MEDS: ZINC SULFATE 220 MG CAP PO SCH (18:02)
[2024-01-10 21:10] LABS: Glucose,Whole Blood 89 mg/dL (70-110)
[2024-01-10] MEDS: ASCORBIC ACID 500 MG TAB PO SCH (22:55)
[2024-01-10] MEDS: ACETAMINOPHEN TAB 500 MG TAB PO PRN (22:55)
[2024-01-10] MEDS: MELATONIN 5 MG TABLET PO SCH (22:55)
[2024-01-10] MEDS: ALPRAZolam 0.25 MG TAB PO PRN (22:55)
[2024-01-11 00:23] LABS: Glucose,Whole Blood 88 mg/dL (70-110)
[2024-01-11] MEDS: DAPAGLIFLOZIN PROPANEDIOL 10 MG TABLET PO SCH (06:14)
[2024-01-11 06:19] LABS: Glucose,Whole Blood 78 mg/dL (70-110)
[2024-01-11] MEDS: polyethylene glycoL 3350 17 GM POWD.PACK PO SCH (08:54)
[2024-01-11] MEDS: MAGNESIUM OXIDE 400 MG TAB PO SCH (08:54)
[2024-01-11] MEDS: SPIRONOLACTONE 25 MG TAB PO SCH (08:54)
[2024-01-11] MEDS: METOPROLOL TARTRATE 50 MG TAB PO SCH (08:58)
--- NOTE | 2024-01-11 09:20 | P.PN ---
Subjective HISTORY OF PRESENT ILLNESS: This is a 73-year-old female with a past medical history significant for persistent atrial fibrillation, pulmonary embolism with EKOS, hypertension, hyperlipidemia, hypothyroidism, pulmonary hypertension, congestive heart failure, and morbid obesity. Patient follows in the office with Dr. Sylvester. We have been asked to see the patient in consultation for congestive heart failure. Patient examined at the bedside in the emergency room. Patient was admitted to the hospital earlier this month for an acute exacerbation of congestive heart failure. She was discharged to [facility]. She presented back to the emergency room yesterday with a chief complaint of shortness of breath. She states that she has been feeling short of breath for the past week. She states that she is unable to lay flat in bed and has been waking up at night short of breath. She states that she has been laying propped up to sleep. She reports chronic lower extremity edema although it is worsened than her baseline. She denies any chest pain or pressure. She was also found to be positive for COVID. She was started on IV Lasix per the emergency room physician. Patient's vital signs are stable. Bedside telemetry reveals atrial fibrillation with controlled ventricular rate. DIAGNOSTICS: - EKG reveals atrial fibrillation with mildly uncontrolled ventricular rate of 107. No signs of acute ischemia.. 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 Probable mild to moderate congestive edema and atelectasis with trace effusion.. - Laboratory data: WBC 6.0. Hemoglobin 12.4. Platelet count 221. Sodium 134. Potassium 4.0. BUN 32. Creatinine 1.39. Troponin negative x 3. proBNP 11,500. - Current home cardiac medications include Farxiga 10 mg daily, Aldactone 25 mg daily, Eliquis 5 mg twice a day, Lasix 40 mg twice a day, midodrine 10 mg twice a day. - Patient underwent IRCO and cardioversion on November 07, 2023. RICO revealed mild to moderate AR, severe MR, moderate TR, no evidence of PFO, EF 55% patient states she stayed in sinus mechanism for 1 day and then went back into atrial fibrillation. - Most recent echocardiogram obtained in September 2023 revealed ejection fraction 45 to 50% - Cardiac catheterization history: October 2023 revealing normal coronary arteries with elevated left-sided filling pressures 01/11/2024 Patient examined this morning on 4 S. Patient denies chest pain or pressure. She reports significant shortness of breath this morning and states she has been feeling dyspneic since 4 AM. Patient appears to be in mild distress at the time of examination with a respiratory rate in the 30s. Telemetry reveals atrial fibrillation with heart rate in the 130s. Patient is receiving Bumex 2 mg every 8 hours. Urine output over the last 24 hours is documented as 700 cc. Patient's metoprolol has been held secondary to "low blood pressure". Patient's midodrine was also held this morning by midnight shift secondary to "high blood pressure". PHYSICAL EXAM: VITAL SIGNS: Reviewed. GENERAL: Well-developed in no mild distress. HEENT: Head is normocephalic. Pupils are equal, round. Sclerae anicteric. Mucous membranes of the mouth are moist. Neck supple. No JVD LUNGS: Respirations even and unlabored. Lungs with crackles throughout HEART: Tachycardic. Irregular rate and rhythm. S1 and S2 heard. + systolic murmur ABDOMEN: Soft. Nondistended. Nontender. EXTREMITIES: Normal range of motion. No clubbing or cyanosis. Peripheral pulses intact. 3+ bilateral lower extremity edema NEUROLOGIC: Awake and alert. Oriented x 3. ASSESSMENT: Shortness of breath Acute COVID-19 Acute on chronic heart failure with mildly reduced EF, echo reveals EF 5-50 Recent hospitalization for CHF, December 2023 Normal coronary arteries, per cardiac catheterization, 10/2023 Persistent atrial fibrillation History of RICO and cardioversion, October 2023, lasting approximately 24 hours before going back into atrial fibrillation per patient History of bilateral PE with EKOS procedure, February 2022 History of right pleural effusion, status post thoracentesis 10/08/2023 with removal of 1200 cc History of left pleural effusion, status post thoracentesis 10/09/2023 with removal of 550 cc History of hypertension History of hyperlipidemia History of hypothyroidism Pulmonary hypertension Morbid obesity: BMI 45.4 Valvular heart disease PLAN: Discontinue IV Bumex Begin Lasix infusion at 10 mg an hour Increase metoprolol to 75 mg twice a day Continue telemetry monitoring Patient with severe MR on recent RICO. Consider outpatient right heart cath and possible mitral clipping Patient to be transferred to [facility] for closer monitoring Further recommendations pending patient course Nurse practitioner note has been reviewed by physician. Signing provider agrees with the documented findings, assessment, and plan of care documented by PROJECT MANAGEMENT INSTRUCTOR as a scribe. Objective - Vital Signs Vital signs: Vital Signs Temp 97.5 F L 01/11/24 07:10 Pulse 113 H 01/11/24 07:10 Resp 19 01/11/24 07:10 BP 157/96 01/11/24 07:10 Pulse Ox 91 L 01/11/24 07:10 FiO2 Intake & Output 01/10/24 01/11/24 01/11/24 18:59 06:59 18:59 Output Total 700 Balance -700 Weight 123.831 kg Output: Urine 700 Other: Voiding Method Indwelling Catheter - Labs CBC & Chem 7: 01/10/24 03:13 01/10/24 03:13
[2024-01-11 10:28] LABS: Basophils # (A) 0.02 X 10*3/uL (0.00-0.10); Basophils % (A) 0.3 %; Eosinophils # (A) 0.03 X 10*3/uL (0.04-0.35); Eosinophils % (A) 0.5 %; HCT 38.2 % (37.2-46.3); HGB 11.9 g/dL (12.0-15.0); Lymphocytes # (A) 1.26 X 10*3/uL (0.90-5.00); Lymphocytes % (A) 20.7 %; MCH 32.2 pg (27.0-32.0); MCHC 31.2 g/dL (32.0-37.0); MCV 103.5 FL (80.0-97.0); Mean Platelet Volume 10.5 FL (9.5-12.2); Monocytes # (A) 0.58 X 10*3/uL (0.20-1.00); Monocytes % (A) 9.5 %; NRBC Per 100 WBC 0 X 10*3/uL (0.00-0.01); Neutrophils # (A) 4.14 X 10*3/uL (1.80-7.70); Neutrophils % (A) 68.2 %; Platelet Count 241 X 10*3/uL (140-440); RBC 3.69 X 10*6/uL (4.10-5.20); RDW 19.8 % (11.5-14.5); WBC 6.08 X 10*3/uL (4.50-10.00)
[2024-01-11] MEDS: FUROSEMIDE 100 MG in SODIUM CHLORIDE 0.9% 90 ML IV SCH (10:34)
[2024-01-11 10:45] LABS: BUN/Creat Ratio 19.53 Ratio (12.00-20.00); Blood Urea Nitrogen 29.3 mg/dL (9.0-27.0); Calcium 9.2 mg/dL (8.7-10.3); Chloride 97 mmol/L (96-109); Glucose 77 mg/dL (70-110); Potassium 4.6 mmol/L (3.5-5.5); Sodium 141 mmol/L (135-145)
[2024-01-11] MEDS: MIDODRINE 5 MG TAB PO STA (12:09)
--- NOTE | 2024-01-11 14:20 | XR ---
EXAMINATION TYPE: XR chest 2V DATE OF EXAM: 01/11/2024 1:37 PM CLINICAL INDICATION:Female, 73 years old with history of dyspnea; PHH COMPARISON: Chest radiographs from 01/10/2024 TECHNIQUE: XR chest 2V Frontal and lateral views of the chest. FINDINGS: Lungs/Pleura: Eventration of the right diaphragm which is elevated compared to left. There is no evid ence of pleural effusion, focal consolidation, or pneumothorax. Pulmonary vascularity: Pulmonary vascular congestion. Heart/mediastinum: Cardiomediastinal silhouette is enlarged and stable. Musculoskeletal: No acute osseous pathology. IMPRESSION: Cardiomegaly and mild pulmonary vascular congestion. Correlate with BNP for congestive heart failure.
--- NOTE | 2024-01-11 14:41 | P.PN ---
Subjective Progress Note Date: 01/11/24 Principal diagnosis: Acute on chronic hypoxic respiratory failure secondary to acute exacerbation of diastolic congestive heart failure This is a 73-year-old female patient with a known history of atrial fibrillation, pulmonary embolism, hypertension, hype per lipidemia, hypoth yroidism, congestive heart failure, chronic kidney disease stage III, pleural effusions with previous thoracentesis, osteoarthritis. She was recently discharged on January 02, 2024 following a diastolic CHF exacerbation. She presented here to the emergency room early this morning from [facility] with a 3-day history of paroxysmal nocturnal dyspnea, dry cough and shortness of breath. She also had lower extremity edema. 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 Mild to moderate congestive heart failure and atelectasis with trace effusions. Stable compared to previous chest x-ray on December 29, 2023. White count 6.0. Hemoglobin 12.4. Platelets 221. Sodium 134. Potassium 4.0. Bicarb 32. BUN 32. Creatinine 1.39. Glucose 90. Troponins negative x 3. proBNP 11,500. She did test positive for COVID-19 infection. She is seen today in the emergency department. She is sitting up on the stretcher. Awake and alert in no acute distress. She is maintaining O2 saturations in the 90s on 3 L/min per nasal cannula. She has been initiated on IV diuretics. She is anticoagulated with Eliquis. Patient was seen and evaluated today on 01/11/2024, patient is on 3 L nasal cannula, O2 saturation 96%, continues to have shortness of breath, quite dy spneic since 4:00 this morning, blood pressure is marginal, patient is supposed to go on Lasix drip today, her chest x-ray on admission clearly showed evidence of pulmonary edema. Urine output in the last 24 hours has been about 700 cc. Patient is also developing atrial fibrillation with RVR, and that is being addressed by cardiology on the case.WBC count is 6.08 hemoglobin 11.9 electrolytes are normal BUN is 29 creatinine 1.5 Objective - Vital Signs Vital signs: Vital Signs Temp 97.4 F L 01/11/24 11:21 Pulse 114 H 01/11/24 14:00 Resp 20 01/11/24 14:00 BP 90/66 01/11/24 11:21 Pulse Ox 96 01/11/24 11:21 FiO2 Intake & Output 01/10/24 01/11/24 01/11/24 18:59 06:59 18:59 Intake Total 240 Output Total 700 210 Balance -700 30 Weight 123.831 kg Intake: Oral 240 Output: Urine 700 210 Other: Voiding Method Indwelling Catheter Indwelling Catheter # Bowel Movements 0 - Exam GENERAL EXAM: Alert, obese, pleasant 73-year-old female, on 3 L nasal cannula, anxious, O2 sats was 96% HEAD: Normocephalic. EYES: Normal reaction of pupils, equal size. NOSE: Clear with pink turbinates. THROAT: No erythema or exudates. NECK: No masses, no JVD. CHEST: No chest wall deformity. LUNGS: Crackles throughout bilaterally. CVS: Regular irregular rhythm, tachycardic, 2/6 systolic murmur throughout the precordium ABDOMEN: No hepatosplenomegaly, normal bowel sounds, no guarding or rigidity. SKIN: No rashes CENTRAL NERVOUS SYSTEM: Alert and oriented x 3 no gross focal deficits Theatric: Anxious mood and affect and no mental status examination, EXTREMITIES: There is 1-2+ peripheral edema. No clubbing, no cyanosis. Peripheral pulses are intact. - Labs CBC & Chem 7: 01/11/24 05:28 01/11/24 05:28 Labs: Abnormal Lab Results - Last 24 Hours (Table) 01/11/24 01/11/24 Range/Units 05:28 05:28 RBC 3.69 L (4.10-5.20) X 10*6/uL Hgb 11.9 L (12.0-15.0) g/dL MCV 103.5 H (80.0-97.0) FL MCH 32.2 H (27.0-32.0) pg MCHC 31.2 L (32.0-37.0) g/dL RDW 19.8 H (11.5-14.5) % Immature Gran # 0.05 H (0.00-0.04) X 10*3/uL Eosinophils # 0.03 L (0.04-0.35) X 10*3/uL Anion Gap 13.00 H (4.00-12.00) mmol/L BUN 29.3 H (9.0-27.0) mg/dL Est GFR (CKD-EPI) 36 L (>=60) Assessment and Plan Assessment: Impression: Acute on chronic hypoxic respiratory failure secondary to acute diastolic congestive heart failure, chest x-ray this morning is showing worsening interstitial edema. Acute COVID-19 infection, doubt COVID-19 pneumonia Chronic atrial fibrillation, now with atrial fibrillation and RVR. Acute on chronic kidney disease stage III History of pleural effusions requiring thoracentesis back in September History of pulmonary embolism Benign essential hypertension Hypothyroidism Degenerative joint disease Morbid obesity BMI of 45.4 Recommendation: Agree with Lasix drip Continue eliquis Continue supportive care measures Cardiology is addressing her atrial fibrillation/RVR Continue bronchodilators Continue COVID-19 cocktail. Will continue to follow Time with Patient: Less than 30
--- NOTE | 2024-01-11 22:40 | P.PN ---
Subjective Progress Note Date: 01/11/24 Patient is evaluated today on the medical floor states that she is having continued shortness of breath. She has been transferred to the stepdown unit for medical floor with recommendations to be placed on Lasix drip at 10 MLS per hour. She continues with left basilar crackles and diminished air entry in the right lung. Chest x-ray today shows cardiomegaly and mild pulmonary vascular congestion. No pleural effusion is noted. Echocardiogram was done showing an EF of 45 to 50% with reports of severe central mitral regurgitation and patient is being considered for outpatient mitral clipping as recommended by cardiology. Review of Systems Constitutional: Denied any fatigue denied any fever. Cardio vascular: denied any chest pain, palpitations Gastrointestinal: denied any nausea, vomiting, diarrhea Pulmonary: Reports shortness of breath cough Neurologic denied any new focal deficits All inpatient medications were reviewed and appropriate changes in these medications as dictated in the interval history and assessment and plan. PHYSICAL EXAMINATION: GENERAL: The patient is alert and oriented x3, not in any acute distress. Well developed, well nourished. HEENT: Pupils are round and equally reacting to light. EOMI. No scleral icterus. No conjunctival pallor. Normocephalic, atraumatic. No pharyngeal erythema. No thyromegaly. CARDIOVASCULAR: S1 and S2 present. No murmurs, rubs, or gallops. PULMONARY: Crackles left lung base and diminished right lung ABDOMEN: Soft, nontender, nondistended, normoactive bowel sounds. No palpable organomegaly. MUSCULOSKELETAL: No joint swelling or deformity. EXTREMITIES: No cyanosis, clubbing, or pedal edema. Bilateral lower extremity edema. NEUROLOGICAL: Gross neurological examination did not reveal any focal deficits. Diffuse weakness SKIN: No rashes. Assessment -Acute on chronic CHF exacerbation, diastolic dysfunction, EF 45-50% patient has been transitioned from IV lasix to Lasix gtt and recommend to continue strict intake and output with daily weights. -Acute COVID 19 infection, family requesting patient to be started on paxlovid which will be sent to outpatient pharmacy and need to be picked up and brought in by family. Continue supportive care with vitamins. -Acute on chronic hypoxic respiratory failure secondary to the above currently maintained on 8L hi flow cannula. -History of pleural effusions with previous thoracentesis and September 2023, transudate, negative for malignancy -Chronic renal failure stage IIIa -Chronic Atrial fibrillation with rapid ventricular rate, status post RICO and cardioversion,11/16 reporting severe MR patient is anticoagulated with eliquis which is continued -Pulmonary embolism bilaterally status post EKOS, 03/14/2022 -Pulmonary hypertension -Moderate mitral and tricuspid regurgitation cardiology recommending further work up outpatient for possible mitral clipping. -Hypothyroidism, levothyroxine dose recently increased on last admission -Hypertension, -Hyperlipidemia -Osteoarthritis with history right knee placement in July 2022. -Morbid obesity, BMI 45 -Anxiety Gi prophylaxis DVT prophylaxis Full Code Recommend to continue with lasix gtt strict intake and output monitoring. daily weights. Continue with oxygen support as well as albuterol scheduled and PRN. Ca rdiology, pulmonary following. Repeat labs in the AM. The impression and plan of care has been dictated by Preethi Gamez, Nurse Practitioner as directed. Dr. Bruce MD I have performed a history and physical examination and medical decision making of this patient, discussed the same with the dictator, and agree with the dictators assessment and plan as written, documented as a scribe. Based on total visit time, I have performed more than 50% of this visit. Objective - Vital Signs Vital signs: Vital Signs Temp 97.5 F L 01/11/24 07:10 Pulse 113 H 01/11/24 09:18 Resp 19 01/11/24 09:18 BP 157/96 01/11/24 07:10 Pulse Ox 91 L 01/11/24 07:10 FiO2 Intake & Output 01/10/24 01/11/24 01/11/24 18:59 06:59 18:59 Output Total 700 Balance -700 Weight 123.831 kg Output: Urine 700 Other: Voiding Method Indwelling Catheter Indwelling Catheter - Labs CBC & Chem 7: 01/11/24 05:28 01/11/24 05:28 Assessment and Plan Time with Patient: Less than 30
[2024-01-12] MEDS: ALPRAZolam 0.25 MG TAB PO STA (03:22)
[2024-01-12] MEDS: MIDODRINE 5 MG TAB PO SCH (08:25)
[2024-01-12] MEDS: METOPROLOL TARTRATE 50 MG TAB PO SCH ×3 (08:26→20:47)
[2024-01-12 08:50] LABS: African American GFR (CKD) 38 (>60 ml/min/1.73 sqM); Anion Gap 10 mmol/L; Blood Urea Nitrogen 36 mg/dL (7-17); Calcium 8.7 mg/dL (8.4-10.2); Carbon Dioxide 28 mmol/L (22-30); Chloride 97 mmol/L (98-107); Glucose 61 mg/dL (74-99); Non-African American GFR(CKD) 33 (>60 ml/min/1.73 sqM); Sodium 135 mmol/L (137-145)
--- NOTE | 2024-01-12 09:21 | P.PN ---
Subjective Progress Note Date: 01/12/24 HISTORY OF PRESENT ILLNESS: This is a 73-year-old female with a past medical history significant for pe rsistent atrial fibrillation, pulmonary embolism with EKOS, hypertension, hyperlipidemia, hypothyroidism, pulmonary hypertension, congestive heart failure, and morbid obesity. Patient follows in the office with Dr. Sylvester. We have been asked to see the patient in consultation for congestive heart failure. Patient examined at the bedside in the emergency room. Patient was admitted to the hospital earlier this month for an acute exacerbation of congestive heart failure. She was discharged to [facility]. She presented back to the emergency room yesterday with a chief complaint of shortness of breath. She states that she has been feeling short of breath for the past week. She states that she is unable to lay flat in bed and has been waking up at night short of breath. She states that she has been laying propped up to sleep. She reports chronic lower extremity edema although it is worsened than her baseline. She denies any chest pain or pressure. She was also found to be positive for COVID. She was started on IV Lasix per the emergency room physician. Patient's vital signs are stable. Bedside telemetry reveals atrial fibrillation with controlled ventricular rate. DIAGNOSTICS: - EKG reveals atrial fibrillation with mildly uncontrolled ventricular rate of 107. No signs of acute ischemia.. 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 Probable mild to moderate congestive edema and atelectasis with trace effusion.. - Laboratory data: WBC 6.0. Hemoglobin 12.4. Platelet count 221. Sodium 134. Potassium 4.0. BUN 32. Creatinine 1.39. Troponin negative x 3. proBNP 11,500. - Current home cardiac medications include Farxiga 10 mg daily, Aldactone 25 mg daily, Eliquis 5 mg twice a day, Lasix 40 mg twice a day, midodrine 10 mg twice a day. - Patient underwent RICO and cardioversion on November 07, 2023. RICO revealed mild to moderate AR, severe MR, moderate TR, no evidence of PFO, EF 55% patient states she stayed in sinus mechanism for 1 day and then went back into atrial fibrillation. - Most recent echocardiogram obtained in September 2023 revealed ejection fraction 45 to 50% - Cardiac catheterization history: October 2023 revealing normal coronary ar teries with elevated left-sided filling pressures 01/11/2024 Patient examined this morning on 4 S. Patient denies chest pain or pressure. She reports significant shortness of breath this morning and states she has been feeling dyspneic since 4 AM. Patient appears to be in mild distress at the time of examination with a respiratory rate in the 30s. Telemetry reveals atrial fibrillation with heart rate in the 130s. Patient is receiving Bumex 2 mg every 8 hours. Urine output over the last 24 hours is documented as 700 cc. Patient's metoprolol has been held secondary to "low blood pressure". Patient's midodrine was also held this morning by midnight shift secondary to "high blood pressure". 01/12 Patient was transferred from [facility] floor yesterday to cardiac stepdown unit. She was started on Lasix drip at 10 mg/h. Patient has had very little urine output she has a Louis catheter in place. Output was 700 mL. She states she has a cough with phlegm production that is either red or green. She feels a little bit better from yesterday and thinks the Xanax and oxygen has helped. Blood pressure 94/58, heart rate 102, pulse ox is 98% on 4 L nasal cannula. Patient is being weaned from max of 6 L that was started yesterday. PHYSICAL EXAM: VITAL SIGNS: Reviewed. GENERAL: Well-developed in no acute distress. HEENT: Head is normocephalic. Pupils are equal, round. Sclerae anicteric. LUNGS: Respirations even and unlabored. Lungs with crackles and expiratory wheeze HEART: Mild tachycardic. Irregular rate and rhythm. S1 and S2 heard. + systolic murmur ABDOMEN: Soft. Nondistended. Nontender. EXTREMITIES: Normal range of motion. No clubbing or cyanosis. Peripheral pulses intact. 2+ bilateral lower extremity edema NEUROLOGIC: Awake and alert. Oriented x 3. ASSESSMENT: Shortness of breath Acute COVID-19 Acute on chronic heart failure with mildly reduced EF, echo reveals EF 5-50 Recent hospitalization for CHF, December 2023 Normal coronary arteries, per cardiac catheterization, 10/2023 Persistent atrial fibrillation History of RICO and cardioversion, October 2023, lasting approximately 24 hours before going back into atrial fibrillation per patient History of bilateral PE with EKOS procedure, February 2022 History of right pleural effusion, status post thoracentesis 10/08/2023 with removal of 1200 cc History of left pleural effusion, status post thoracentesis 10/09/2023 with removal of 550 cc History of hypertension History of hyperlipidemia History of hypothyroidism Pulmonary hypertension Morbid obesity: BMI 45.4 Valvular heart disease PLAN: Continue Lasix infusion at 10 mg an hour Plan to transition patient to IV Lasix tomorrow 60 mg Q8 Continue increased dose of metoprolol 75 mg twice a day Continue telemetry monitoring Patient with severe MR on recent RICO. Consider outpatient right heart cath and possible mitral clippin Further recommendations pending patient course Nurse practitioner note has been reviewed by physician. Signing provider agrees with the documented findings, assessment, and plan of care documented by CERAMIC PAINTER as a scribe. Objective - Vital Signs Vital signs: Vital Signs Temp 97.7 F 01/11/24 20:00 Pulse 102 H 01/12/24 04:00 Resp 16 01/12/24 04:00 BP 94/58 01/12/24 04:00 Pulse Ox 98 01/12/24 04:00 FiO2 Intake & Output 01/11/24 01/12/24 01/12/24 18:59 06:59 18:59 Intake Total 557.5 100 Output Total 535 250 Balance 22.5 -150 Weight 130 kg Intake: Intake, IV Titration 77.5 100 Amount Furosemide 100 mg In 77.5 100 Sodium Chloride 0.9% 90 ml @ 10 MG/HR 10 mls/hr IV .Q10H [facility] Rx#: [id number] Oral 480 Output: Urine 535 250 Other: Voiding Method Indwelling Catheter Indwelling Catheter # Bowel Movements 1 - Labs CBC & Chem 7: 01/11/24 05:28 01/12/24 07:00 Labs: Abnormal Lab Results - Last 24 Hours (Table) 01/11/24 01/11/24 Range/Units 05:28 05:28 RBC 3.69 L (4.10-5.20) X 10*6/uL Hgb 11.9 L (12.0-15.0) g/dL MCV 103.5 H (80.0-97.0) FL MCH 32.2 H (27.0-32.0) pg MCHC 31.2 L (32.0-37.0) g/dL RDW 19.8 H (11.5-14.5) % Immature Gran # 0.05 H (0.00-0.04) X 10*3/uL Eosinophils # 0.03 L (0.04-0.35) X 10*3/uL Anion Gap 13.00 H (4.00-12.00) mmol/L BUN 29.3 H (9.0-27.0) mg/dL Est GFR (CKD-EPI) 36 L (>=60)
--- NOTE | 2024-01-12 12:52 | US ---
EXAMINATION TYPE: US chest DATE OF EXAM: 01/12/2024 COMPARISON: chest plain film same day CLINICAL INDICATION: Female, 73 years old with history of Pleural effusion; pleural effusion TECHNIQUE: Targeted ultrasound of the posterior lower bilateral hemithoraces EXAM MEASUREMENTS: Right Pleural Effusion pocket size: 5.0 cm Right skin surface to fluid distance: 3.9 cm Left Pleural Effusion pocket size: 8.9 cm - lung noted anteriorly Left skin surface to fluid distance: 3.8 cm Right side marked for possible thoracentesis outside the dept. Left side marked for possible thoracentesis outside the dept. Pulmonologists are able to review the images in the patient?s EMR. IMPRESSIONS: Small bilateral pleural effusions.
--- NOTE | 2024-01-12 13:21 | P.PN ---
Subjective Progress Note Date: 01/12/24 Patient is evaluated today on the medical floor states that she is having continued shortness of breath. She has been transferred to the stepdown unit for medical floor with recommendations to be placed on Lasix drip at 10 MLS per hour. She continues with left basilar crackles and diminished air entry in the right lung. Chest x-ray today shows cardiomegaly and mild pulmonary vascular congestion. No pleural effusion is noted. Echocardiogram was done showing an EF of 45 to 50% with reports of severe central mitral regurgitation and patient is being considered for outpatient mitral clipping as recommended by cardiology. 01/12/2024 Patient remains on the stepdown unit she continues to report feeling short of breath and did require a 8 L high flow cannula yesterday currently she is weaned down to 4 L of oxygen. She continues with significant lower extremity edema she does have weeping of the left leg. She is maintained on a Lasix drip at 10 MLS per hour. Her creatinine is increased up to 1.52 today and we will consult nephrology for further input and evaluation. She remains in atrial fibrillation with rapid ventricular rate. Metoprolol was increased up to 75 mg BID, cardiology following closely. Pulmonary following and planning on chest ultrasound for possible thoracentesis. Review of Systems Constitutional: Denied any fatigue denied any fever. Cardio vascular: denied any chest pain, palpitations Gastrointestinal: denied any nausea, vomiting, diarrhea Pulmonary: Reports shortness of breath cough Neurologic denied any new focal deficits All inpatient medications were reviewed and appropriate changes in these medications as dictated in the interval history and assessment and plan. PHYSICAL EXAMINATION: GENERAL: The patient is alert and oriented x3, not in any acute distress. Well developed, well nourished. HEENT: Pupils are round and equally reacting to light. EOMI. No scleral icterus. No conjunctival pallor. Normocephalic, atraumatic. No pharyngeal erythema. No thyromegaly. CARDIOVASCULAR: S1 and S2 present. No murmurs, rubs, or gallops. PULMONARY: Crackles left lung base and diminished right lung ABDOMEN: Soft, nontender, nondistended, normoactive bowel sounds. No palpable organomegaly. MUSCULOSKELETAL: No joint swelling or deformity. EXTREMITIES: No cyanosis, clubbing, or pedal edema. Bilateral lower extremity edema. Weeping left leg. NEUROLOGICAL: Gross neurological examination did not reveal any focal deficits. Diffuse weakness SKIN: No rashes. Assessment -Acute on chronic CHF exacerbation, diastolic dysfunction, EF 45-50% patient has been transitioned from IV lasix to Lasix gtt and recommend to continue strict intake and output with daily weights. -Acute COVID 19 infection, family requesting patient to be started on paxlovid which will be sent to outpatient pharmacy and need to be picked up and brought in by family. Continue supportive care with vitamins. -Acute on chronic hypoxic respiratory failure secondary to the above patient has been weaned down to 3-4L of oxygen. -History of pleural effusions with previous thoracentesis and September 2023, transudative, negative for malignancy -Chronic renal failure stage IIIa creatinine increased to 1.52 nephrology has been consulted for further recommendations. Recommend to repeat labs in the AM. -Chronic Atrial fibrillation with rapid ventricular rate, status post RICO and cardioversion,11/16 reporting severe MR patient is anticoagulated with eliquis which is continued -Pulmonary embolism bilaterally status post EKOS, 03/14/2022 -Pulmonary hypertension -Moderate mitral and tricuspid regurgitation cardiology recommending further work up outpatient for possible mitral clipping. -Hypothyroidism, levothyroxine dose recently increased on last admission -Hypertension, -Hyperlipidemia -Osteoarthritis with history right knee placement in July 2022. -Morbid obesity, BMI 45 -Anxiety Gi prophylaxis DVT prophylaxis Full Code Recommend to continue with lasix gtt strict intake and output monitoring. daily weights. Continue with oxygen support as well as albuterol scheduled and PRN. Cardiology, pulmonary following. Repeat labs in the AM. The impression and plan of care has been dictated by Preethi Gamez, Nurse Practitioner as directed. Dr. Bruce MD I have performed a history and physical examination and medical decision making of this patient, discussed the same with the dictator, and agree with the dictators assessment and plan as written, documented as a scribe. Based on total visit time, I have performed more than 50% of this visit. Objective - Vital Signs Vital signs: Vital Signs Temp 97.7 F 01/11/24 20:00 Pulse 102 H 01/12/24 04:00 Resp 16 01/12/24 04:00 BP 94/58 01/12/24 04:00 Pulse Ox 98 01/12/24 04:00 FiO2 Intake & Output 02/17/24 02/18/24 02/18/24 18:59 06:59 18:59 Intake Total 557.5 100 Output Total 535 250 Balance 22.5 -150 Weight 130 kg Intake: Intake, IV Titration 77.5 100 Amount Furosemide 100 mg In 77.5 100 Sodium Chloride 0.9% 90 ml @ 10 MG/HR 10 mls/hr IV .Q10H [facility] Rx#: [id number] Oral 480 Output: Urine 535 250 Other: Voiding Method Indwelling Catheter Indwelling Catheter # Bowel Movements 1 - Labs CBC & Chem 7: 01/11/24 05:28 01/12/24 07:00 Labs: Abnormal Lab Results - Last 24 Hours (Table) 01/11/24 01/11/24 01/12/24 Range/Units 05:28 05:28 07:00 RBC 3.69 L (4.10-5.20) X 10*6/uL Hgb 11.9 L (12.0-15.0) g/dL MCV 103.5 H (80.0-97.0) FL MCH 32.2 H (27.0-32.0) pg MCHC 31.2 L (32.0-37.0) g/dL RDW 19.8 H (11.5-14.5) % Immature Gran # 0.05 H (0.00-0.04) X 10*3/uL Eosinophils # 0.03 L (0.04-0.35) X 10*3/uL Sodium 135 L (137-145) mmol/L Chloride 97 L (98-107) mmol/L Anion Gap 13.00 H (4.00-12.00) mmol/L BUN 29.3 H 36 H (9.0-27.0) mg/dL Creatinine 1.52 H (0.52-1.04) mg/dL Est GFR (CKD-EPI) 36 L (>=60) Glucose 61 L (74-99) mg/dL Assessment and Plan Time with Patient: Less than 30
--- NOTE | 2024-01-12 14:20 | P.PN ---
Subjective Progress Note Date: 01/12/24 Principal diagnosis: Acute on chronic hypoxic respiratory failure secondary to acute exacerbation of diastolic congestive heart failure This is a 73-year-old female patient with a known history of atrial fibrillation, pulmonary embolism, hypertension, hype per lipidemia, hypoth yroidism, congestive heart failure, chronic kidney disease stage III, pleural effusions with previous thoracentesis, osteoarthritis. She was recently discharged on January 02, 2024 following a diastolic CHF exacerbation. She presented here to the emergency room early this morning from [facility] with a 3-day history of paroxysmal nocturnal dyspnea, dry cough and shortness of breath. She also had lower extremity edema. 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 Mild to moderate congestive heart failure and atelectasis with trace effusions. Stable compared to previous chest x-ray on December 29, 2023. White count 6.0. Hemoglobin 12.4. Platelets 221. Sodium 134. Potassium 4.0. Bicarb 32. BUN 32. Creatinine 1.39. Glucose 90. Troponins negative x 3. proBNP 11,500. She did test positive for COVID-19 infection. She is seen today in the emergency department. She is sitting up on the stretcher. Awake and alert in no acute distress. She is maintaining O2 saturations in the 90s on 3 L/min per nasal cannula. She has been initiated on IV diuretics. She is anticoagulated with Eliquis. Patient was seen and evaluated today on 01/11/2024, patient is on 3 L nasal cannula, O2 saturation 96%, continues to have shortness of breath, quite dy spneic since 4:00 this morning, blood pressure is marginal, patient is supposed to go on Lasix drip today, her chest x-ray on admission clearly showed evidence of pulmonary edema. Urine output in the last 24 hours has been about 700 cc. Patient is also developing atrial fibrillation with RVR, and that is being addressed by cardiology on the case.WBC count is 6.08 hemoglobin 11.9 electrolytes are normal BUN is 29 creatinine 1.5 Patient was reevaluated today on 01/12/2024, on 4 L nasal cannula, O2 saturation 98%, however the patient seems to be quite short of breath patient is not making a significant amount of urine in spite of being on Lasix drip, her renal profile is basically about the same creatinine is 1.52, it was 1.5 yesterday have WBC count is 6.0 hemoglobin 11.9. Platelets are 241k Objective - Vital Signs Vital signs: Vital Signs Temp 97.9 F 01/12/24 08:00 Pulse 101 H 01/12/24 12:00 Resp 18 01/12/24 12:00 BP 91/67 01/12/24 12:00 Pulse Ox 98 01/12/24 12:00 FiO2 Intake & Output 01/11/24 01/12/24 01/12/24 18:59 06:59 18:59 Intake Total 557.5 100 240 Output Total 535 250 Balance 22.5 -150 240 Weight 130 kg Intake: Intake, IV Titration 77.5 100 Amount Furosemide 100 mg In 77.5 100 Sodium Chloride 0.9% 90 ml @ 10 MG/HR 10 mls/hr IV .Q10H [facility] Rx#: [id number] Oral 480 240 Output: Urine 535 250 Other: Voiding Method Indwelling Catheter Indwelling Catheter Indwelling Catheter # Bowel Movements 1 - Exam GENERAL EXAM: Alert, obese, pleasant 73-year-old female, on 4 L nasal cannula and O2 sats is 98%. HEAD: Normocephalic. EYES: Normal reaction of pupils, equal size. NOSE: Clear with pink turbinates. THROAT: No erythema or exudates. NECK: No masses, no JVD. CHEST: No chest wall deformity. LUNGS: Crackles throughout bilaterally. CVS: Regular irregular rhythm, tachycardic, 2/6 systolic murmur throughout the precordium ABDOMEN: No hepatosplenomegaly, normal bowel sounds, no guarding or rigidity. SKIN: No rashes CENTRAL NERVOUS SYSTEM: Alert and oriented x 3 no gross focal deficits Theatric: Anxious mood and affect and no mental status examination, EXTREMITIES: There is 1-2+ peripheral edema. No clubbing, no cyanosis. Peripheral pulses are intact. - Labs CBC & Chem 7: 01/11/24 05:28 01/12/24 07:00 Labs: Abnormal Lab Results - Last 24 Hours (Table) 01/12/24 01/12/24 Range/Units 07:00 07:00 Sodium 135 L (137-145) mmol/L Chloride 97 L (98-107) mmol/L BUN 36 H (7-17) mg/dL Creatinine 1.52 H (0.52-1.04) mg/dL Glucose 61 L (74-99) mg/dL TSH 5.730 H (0.465-4.680) mIU/L Assessment and Plan Assessment: Impression: Acute on chronic hypoxic respiratory failure secondary to acute diastolic congestive heart failure, Acute COVID-19 infection, doubt COVID-19 pneumonia Chronic atrial fibrillation, now with atrial fibrillation and RVR. Acute on chronic kidney disease stage III History of pleural effusions requiring thoracentesis back in September History of pulmonary embolism Benign essential hypertension Hypothyroidism Degenerative joint disease Morbid obesity BMI of 45.4 Recommendation: Hold Eliquis for potential thoracentesis in the next 24 hours Agree with Gilda franks Reviewed ultrasound, patient may be considered for left-sided thoracentesis in the next 24 hours. Continue supportive care measures Cardiology is addressing her atrial fibrillation/RVR Continue bronchodilators Continue COVID-19 cocktail. Will continue to follow Time with Patient: Less than 30
[2024-01-12 15:12] LABS: T4, Free (Free Thyroxine) 1.98 ng/dL (0.78-2.19)
[2024-01-12] MEDS: PAXLOVID PO SCH (15:15)
[2024-01-12 18:28] LABS: Glucose,Whole Blood 77 mg/dL (70-110)
[2024-01-13] MEDS: ALPRAZolam 0.25 MG TAB PO STA (03:10)
[2024-01-13 09:40] LABS: African American GFR (CKD) 39 (>60 ml/min/1.73 sqM); Anion Gap 8 mmol/L; Blood Urea Nitrogen 40 mg/dL (7-17); Calcium 8.8 mg/dL (8.4-10.2); Carbon Dioxide 30 mmol/L (22-30); Chloride 97 mmol/L (98-107); Glucose 82 mg/dL (74-99); Non-African American GFR(CKD) 34 (>60 ml/min/1.73 sqM); Potassium 4.3 mmol/L (3.5-5.1); Sodium 135 mmol/L (137-145)
[2024-01-13 11:19] LABS: Glucose,Whole Blood 88 mg/dL (70-110)
--- NOTE | 2024-01-13 11:28 | P.PN ---
Subjective HISTORY OF PRESENT ILLNESS: This is a 73-year-old female with a past medical history significant for persistent atrial fibrillation, pulmonary embolism with EKOS, hypertension, hyperlipidemia, hypothyroidism, pulmonary hypertension, congestive heart failure, and morbid obesity. Patient follows in the office with Dr. Sylvester. We have been asked to see the patient in consultation for congestive heart failure. Patient examined at the bedside in the emergency room. Patient was admitted to the hospital earlier this month for an acute exacerbation of congestive heart failure. She was discharged to [facility]. She presented back to the emergency room yesterday with a chief complaint of shortness of breath. She states that she has been feeling short of breath for the past week. She states that she is unable to lay flat in bed and has been waking up at night short of breath. She states that she has been laying propped up to sleep. She reports chronic lower extremity edema although it is worsened than her baseline. She denies any chest pain or pressure. She was also found to be positive for COVID. She was started on IV Lasix per the emergency room physician. Patient's vital signs are stable. Bedside telemetry reveals atrial fibrillation with controlled ventricular rate. DIAGNOSTICS: - EKG reveals atrial fibrillation with mildly uncontrolled ventricular rate of 107. No signs of acute ischemia.. 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 Probable mild to moderate congestive edema and atelectasis with trace effusion.. - Laboratory data: WBC 6.0. Hemoglobin 12.4. Platelet count 221. Sodium 134. Potassium 4.0. BUN 32. Creatinine 1.39. Troponin negative x 3. proBNP 11,500. - Current home cardiac medications include Farxiga 10 mg daily, Aldactone 25 mg daily, Eliquis 5 mg twice a day, Lasix 40 mg twice a day, midodrine 10 mg twice a day. - Patient underwent RICO and cardioversion on November 07, 2023. RICO revealed mild to moderate AR, severe MR, moderate TR, no evidence of PFO, EF 55% patient states she stayed in sinus mechanism for 1 day and then went back into atrial fibrillation. - Most recent echocardiogram obtained in September 2023 revealed ejection fraction 45 to 50% - Cardiac catheterization history: October 2023 revealing normal coronary arteries with elevated left-sided filling pressures 01/11/2024 Patient examined this morning on 4 S. Patient denies chest pain or pressure. She reports significant shortness of breath this morning and states she has been feeling dyspneic since 4 AM. Patient appears to be in mild distress at the time of examination with a respiratory rate in the 30s. Telemetry reveals atrial fibrillation with heart rate in the 130s. Patient is receiving Bumex 2 mg every 8 hours. Urine output over the last 24 hours is documented as 700 cc. Patient's metoprolol has been held secondary to "low blood pressure". Patient's midodrine was also held this morning by midnight shift secondary to "high blood pressure". 01/12 Patient was transferred from [facility] floor yesterday to cardiac stepdown unit. She was started on Lasix drip at 10 mg/h. Patient has had very little urine output she has a Louis catheter in place. Output was 700 mL. She states she has a cough with phlegm production that is either red or green. She feels a little bit better from yesterday and thinks the Xanax and oxygen has helped. Blood pressure 94/58, heart rate 102, pulse ox is 98% on 4 L nasal cannula. Patient is being weaned from max of 6 L that was started yesterday. 01/13/2024 Patient examined this morning at the bedside. Patient continues to report shortness of breath. She denies any chest pain or pressure. She remains on supplemental oxygen with oxygen saturations greater than 92%. Telemetry reveals atrial fibrillation with a heart rate between [id number]. Blood pressure 101/70. Urine output for the last 24 hours is about 1 L. PHYSICAL EXAM: VITAL SIGNS: Reviewed. GENERAL: Well-developed in no mild distress. HEENT: Head is normocephalic. Pupils are equal, round. Sclerae anicteric. Mucous membranes of the mouth are moist. Neck supple. No JVD LUNGS: Respirations even and unlabored. Lungs with crackles throughout HEART: Mildly tachycardic. Irregular rate and rhythm. S1 and S2 heard. + systolic murmur ABDOMEN: Soft. Nondistended. Nontender. EXTREMITIES: Normal range of motion. No clubbing or cyanosis. Peripheral pulses intact. 3+ bilateral lower extremity edema NEUROLOGIC: Awake and alert. Oriented x 3. ASSESSMENT: Shortness of breath Acute COVID-19 Acute on chronic heart failure with mildly reduced EF, echo reveals EF 5-50 Recent hospitalization for CHF, December 2023 Normal coronary arteries, per cardiac catheterization, 10/2023 Persistent atrial fibrillation History of RICO and cardioversion, October 2023, lasting approximately 24 hours before going back into atrial fibrillation per patient History of bilateral PE with EKOS procedure, February 2022 History of right pleural effusion, status post thoracentesis 10/08/2023 with removal of 1200 cc History of left pleural effusion, status post thoracentesis 10/09/2023 with re moval of 550 cc History of hypertension History of hyperlipidemia History of hypothyroidism Pulmonary hypertension Morbid obesity: BMI 45.4 Valvular heart disease PLAN: Continue current cardiac medications Continue IV Lasix drip at 10 mg an hour Daily weights, accurate intake and output, and monitoring of kidney function Continue telemetry monitoring Patient with severe MR on recent RICO. Consider outpatient right heart cath and possible mitral clipping Further recommendations pending patient course Nurse practitioner note has been reviewed by physician. Signing provider agrees with the documented findings, assessment, and plan of care documented by FIELD PRODUCER as a scribe. Objective - Vital Signs Vital signs: Vital Signs Temp 97.5 F L 01/13/24 08:00 Pulse 106 H 01/13/24 08:00 Resp 20 01/13/24 08:00 BP 101/70 01/13/24 08:00 Pulse Ox 98 01/13/24 08:57 FiO2 Intake & Output 01/12/24 01/13/24 01/13/24 18:59 06:59 18:59 Intake Total 337.5 100 323 Output Total 500 660 675 Balance -162.5 -560 -352 Weight 129.5 kg Intake: Intake, IV Titration 97.5 100 83 Amount Furosemide 100 mg In 97.5 100 83 Sodium Chloride 0.9% 90 ml @ 10 MG/HR 10 mls/hr IV .Q10H [facility] Rx#: [id number] Oral 240 240 Output: Urine 500 660 675 Other: Voiding Method Indwelling Catheter Indwelling Catheter Indwelling Catheter - Labs CBC & Chem 7: 01/11/24 05:28 01/13/24 08:56 Labs: Abnormal Lab Results - Last 24 Hours (Table) 01/12/24 01/13/24 Range/Units 07:00 08:56 Sodium 135 L (137-145) mmol/L Chloride 97 L (98-107) mmol/L BUN 40 H (7-17) mg/dL Creatinine 1.50 H (0.52-1.04) mg/dL TSH 5.730 H (0.465-4.680) mIU/L
--- NOTE | 2024-01-13 12:26 | P.NPCON ---
History of Present Illness - Reason for Consult acute renal failure - History of Present Illness Patient is a 73-year-old female who resides at [facility]. Patient has a history of CHF, chronic A. fib and obesity. She is admitted to the hospital with complaints of shortness of breath. Patient tested positive for "with infection. She is currently maintained on oxygen at 3-4 L via nasal cannula. Patient is currently being diuresed for severe volume overload. She is maintained on Lasix drip at 10 mg an hour. 24-hour urine output at 1160 mL. Patient has an indwelling Louis catheter. Blood pressure has been low with systolic in the 80s and 90s. Started on midodrine. Patient has been in A. fib with RVR and currently maintained on metoprolol. Serum creatinine was 1.39 on initial admission and currently staying at about 1.5 mg/dL. Chest x-ray on 01/11/2024 shows pulmonary vascular congestion and cardiomegaly Review of Systems As per HPI Past Medical History Past Medical History: Atrial Fibrillation, Heart Failure, Hyperlipidemia, Hypertension, Osteoarthritis (OA), Pulmonary Embolus (PE), Thyroid Disorder Additional Past Medical History / Comment(s): PE bilateral with EKOS 02/2022 History of Any Multi-Drug Resistant Organisms: None Reported Past Surgical History: Cholecystectomy, Hysterectomy, Tonsillectomy Additional Past Surgical History / Comment(s): Pt states she had a rt hip replacement 20 years ago, right knee replacement jul 2022 Past Anesthesia/Blood Transfusion Reactions: No Reported Reaction Past Psychological History: No Psychological Hx Reported Smoking Status: Never smoker Past Alcohol Use History: None Reported Past Drug Use History: None Reported - Past Family History Father Family Medical History: AICD/Pacemaker Additional Family Medical History / Comment(s): cabg at 84 Mother Additional Family Medical History / Comment(s): non hodgkins lymphoma Medications and Allergies Home Medications Medication Instructions Recorded Confirmed Type Apixaban [Eliquis] 5 mg PO BID@0800,1700 09/09/22 01/10/24 History Magnesium 250 mg PO DAILY@0800 09/26/23 01/10/24 History Albuterol Sulfate [Ventolin HFA] 1 puff INHALATION RT-QID PRN 11/07/23 01/10/24 History Dapagliflozin Propanediol [Farxiga] 10 mg PO DAILY@0600 11/07/23 01/10/24 History Docusate [Colace] 100 mg PO BID@0800,1700 11/07/23 01/10/24 History Ipratropium-Albuterol Nebulize 3 ml INHALATION RT-Q6H@00,06,12,18 11/07/23 01/10/24 History [Duoneb 0.5 mg-3 mg/3 ml Soln] Magnesium Hydroxide [Milk of 7,200 mg PO DAILY PRN 11/07/23 01/10/24 History Magnesia Concentrate] Melatonin 5 mg PO HS@2100 11/07/23 01/10/24 History Na Phos,M-B/Na Phos,Di-Ba [Fleet 133 ml RECTAL DAILY PRN 11/07/23 01/10/24 History Adult] Potassium Chloride ER [K-Dur 20] 20 meq PO DAILY@1700 11/07/23 01/10/24 History bisacodyL [Dulcolax] 10 mg RECTAL DAILY PRN 11/07/23 01/10/24 History polyethylene glycoL 3350 [Miralax] 17 gm PO DAILY@0800 11/07/23 01/10/24 History Calcium Carbonate [Tums] 500 mg PO QID PRN tab 11/13/23 01/10/24 Rx Nitroglycerin Sl Tabs [Nitrostat] 0.4 mg SUBLINGUAL Q5M PRN tab 11/13/23 01/10/24 Rx Lidocaine 5% Patch [Lidoderm 5% 1 patch TOPICAL DAILY@0800 12/29/23 01/10/24 History Patch] Midodrine HCl [ProAmatine] 10 mg PO BID@0600,1200 12/29/23 01/10/24 History Nystatin 100,000 Unit/gm Powd 1 applic TOPICAL BID@0800,1700 12/29/23 01/10/24 History [Mycostatin Powder] ALPRAZolam [Xanax] 0.25 mg PO BID PRN #6 tab 01/02/24 01/10/24 Rx Levothyroxine Sodium [Synthroid] 100 mcg PO DAILY@0630 tab 01/02/24 01/10/24 Rx Acetaminophen [Tylenol 8 Hour] 1,300 mg PO Q4H PRN 01/10/24 01/10/24 History Furosemide [Lasix] 40 mg PO BID@0600,1400 01/10/24 01/10/24 History Metoprolol Tartrate [Lopressor] 50 mg PO BID@0800,2100 01/10/24 01/10/24 History Spironolactone [Aldactone] 25 mg PO DAILY@0800 01/10/24 01/10/24 History Nirmatrelvir/Ritonavir [Paxlovid 1 each PO DIRECTED #1 each 01/11/24 Rx 150-100 mg Dose Pack] Allergies Allergy/AdvReac Type Severity Reaction Status Date / Time Penicillins Allergy Rash/Hives Verified 01/10/24 08:39 @ Allergy testing site strawberry Allergy Rash/Hives Verified 01/10/24 08:39 all over body tramadol Allergy Unknown Verified 01/10/24 08:39 Physical Exam Vitals: Vital Signs Temp Pulse Resp BP Pulse Ox 01/13/24 11:57 97 01/13/24 08:57 98 01/13/24 08:00 97.5 F L 106 H 20 101/70 98 01/13/24 03:06 98.0 F 99 22 121/81 96 01/13/24 01:13 103 H 01/13/24 00:00 97.6 F 105 H 17 96/68 100 01/12/24 20:44 98.1 F 112 H 20 97/76 99 01/12/24 20:40 112 H 01/12/24 16:00 103 H 20 104/71 98 01/12/24 14:00 101 H 18 Intake and Output 01/12/24 01/13/24 01/13/24 22:59 06:59 14:59 Intake Total 97.5 100 323 Output Total 920 240 675 Balance -822.5 -140 -352 Intake: Intake, IV Titration 97.5 100 83 Amount Furosemide 100 mg In 97.5 100 83 Sodium Chloride 0.9% 90 ml @ 10 MG/HR 10 mls/hr IV .Q10H [facility] Rx#: [id number] Oral 240 Output: Urine 920 240 675 Other: Voiding Method Indwelling Catheter Indwelling Catheter Indwelling Catheter Weight 129.5 kg Patient is awake, comfortable, and she is short of breath. No acute distress. Examination of the heart S1 and S2 Examination the lungs decreased breath sounds at the bases Abdomen is obese Examination of lower extremities shows significant edema about 3+ bilaterally [employer] exam grossly intact Results - Lab Results Most recent lab results Calcium 8.8 mg/dL (8.4-10.2) 01/13/24 08:56 Magnesium 2.1 mg/dL (1.6-2.3) 01/10/24 03:13 01/11/24 05:28 01/13/24 08:56 Assessment and Plan Assessment: 1. Acute kidney injury, nonoliguric ATN secondary to hypotension. Patient is being diuresed for severe volume overload. Ejection fraction 45-50%. Maintained on Lasix drip. Check UA and check ultrasound of the kidneys. 2. Severe volume overload 3. A. fib with RVR maintained on metoprolol and maintained on midodrine due to significant hypotension. 4. Acute hypoxic respiratory failure secondary to volume overload and CHF exacerbation. 5. Covid infection with chest x-ray showing mostly congestive heart failure changes. Plan: Continue with Lasix drip Continue with midodrine Check cortisol level Check UA and check ultrasound of the kidneys Add Zaroxolyn next Thank you for the consultation. We will continue to follow the patient with you during her hospitalization.
--- NOTE | 2024-01-13 12:56 | P.PN ---
Subjective Progress Note Date: 01/13/24 Principal diagnosis: Congestive heart failure. Acute on chronic hypoxic respiratory failure secondary to acute exacerbation of diastolic congestive heart failure This is a 73-year-old female patient with a known history of atrial fibrillation, pulmonary embolism, hypertension, hype per lipidemia, hypothyroidism, congestive heart failure, chronic kidney disease stage III, ple ural effusions with previous thoracentesis, osteoarthritis. She was recently discharged on January 02, 2024 following a diastolic CHF exacerbation. She presented here to the emergency room early this morning from [facility] with a 3-day history of paroxysmal nocturnal dyspnea, dry cough and shortness of breath. She also had lower extremity edema. 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 Mild to moderate congestive heart failure and atelectasis with trace effusions. Stable compared to previous chest x-ray on December 29, 2023. White count 6.0. Hemoglobin 12.4. Platelets 221. Sodium 134. Potassium 4.0. Bicarb 32. BUN 32. Creatinine 1.39. Glucose 90. Troponins negative x 3. proBNP 11,500. She did test positive for COVID-19 infection. She is seen today in the emergency department. She is sitting up on the stretcher. Awake and alert in no acute distress. She is maintaining O2 saturations in the 90s on 3 L/min per nasal cannula. She has been initiated on IV diuretics. She is anticoagulated with Eliquis. Patient was seen and evaluated today on 01/11/2024, patient is on 3 L nasal cannula, O2 saturation 96%, continues to have shortness of breath, quite dyspneic since 4:00 this morning, blood pressure is marginal, patient is lopez pposed to go on Lasix drip today, her chest x-ray on admission clearly showed evidence of pulmonary edema. Urine output in the last 24 hours has been about 700 cc. Patient is also developing atrial fibrillation with RVR, and that is being addressed by cardiology on the case.WBC count is 6.08 hemoglobin 11.9 electrolytes are normal BUN is 29 creatinine 1.5 Patient was reevaluated today on 01/12/2024, on 4 L nasal cannula, O2 saturation 98%, however the patient seems to be quite short of breath patient is not making a significant amount of urine in spite of being on Lasix drip, her renal profile is basically about the same creatinine is 1.52, it was 1.5 yesterday have WBC count is 6.0 hemoglobin 11.9. Platelets are 241k Progress note dated January 13, 2024. This is a 73-year-old female seen today room 359. The patient is currently on 4-1/2 L of oxygen. Saturations are 98%. She is receiving a Lasix drip at 10 mg an hour. She is not receiving any IV fluids. She is sitting upright in her bed. She appears not to have any respiratory distress or difficulty. There is no audible wheezing. Labs today include a sodium 135, potassium 4.3, chlorides 97, CO2 30, anion gap 8, BUN 40, creatinine 1.50. Calcium is 8.8. Glucose is 88. Ultrasound of the chest shows a pleural fluid pocket on the right side, a 5 cm, and on the left side, 8.9 cm. Objective - Vital Signs Vital signs: Vital Signs Temp 97.5 F L 01/13/24 08:00 Pulse 110 H 01/13/24 12:00 Resp 18 01/13/24 12:00 BP 103/72 01/13/24 12:00 Pulse Ox 97 01/13/24 12:00 FiO2 Intake & Output 01/12/24 01/13/24 01/13/24 18:59 06:59 18:59 Intake Total 337.5 100 323 Output Total 500 660 675 Balance -162.5 -560 -352 Weight 129.5 kg Intake: Intake, IV Titration 97.5 100 83 Amount Furosemide 100 mg In 97.5 100 83 Sodium Chloride 0.9% 90 ml @ 10 MG/HR 10 mls/hr IV .Q10H [facility] Rx#: [id number] Oral 240 240 Output: Urine 500 660 675 Other: Voiding Method Indwelling Catheter Indwelling Catheter Indwelling Catheter - Exam No acute distress, oriented 3. No respiratory distress. Currently on 4-1/2 L of oxygen. HEENT examination is grossly unremarkable. Mucous membranes are moist. No oral lesions. Neck supple. Full range of motion. No adenopathy thyromegaly or neck vein distention. Cardiovascular examination reveals regular rhythm rate. S1-S2 normal. No S3 or S4. No discernible murmur noted. Heart rate 110 bpm. Lungs reveal diminished bibasilar breath sounds. Scattered rhonchi and crackles are noted. No wheezes. Saturations are 97%. Abdomen soft bowel sounds are heard. No masses or tenderness. Extremities are intact. No cyanosis or clubbing. Edema is noted. Skin is without rash or lesion. Neurologic examination is brief but nonfocal. - Labs CBC & Chem 7: 01/11/24 05:28 01/13/24 08:56 Labs: Abnormal Lab Results - Last 24 Hours (Table) 01/12/24 01/13/24 Range/Units 07:00 08:56 Sodium 135 L (137-145) mmol/L Chloride 97 L (98-107) mmol/L BUN 40 H (7-17) mg/dL Creatinine 1.50 H (0.52-1.04) mg/dL TSH 5.730 H (0.465-4.680) mIU/L Assessment and Plan Assessment: Acute on chronic hypoxemic respiratory failure, secondary to acute diastolic CHF. Acute COVID-19 infection, without coronavirus associated pneumonia. Chronic atrial fibrillation. Acute on chronic kidney disease, stage III. History of pleural effusion, S/P thoracentesis in September 2023. History of pulmonary embolism. Benign essential hypertension. Hypothyroidism. Degenerative joint disease. Morbid obesity. Plan: Plan dated January 13, 2024. The patient is currently on a Lasix drip, at 10 mg an hour. Her oxygen requirements have come down from 4.5 L, down to 3 L. Her saturations are excell ent. For the time being, no thoracentesis. The pocket on the right is relatively small, the pocket on the left, a bit larger. We will continue to follow make recommendations along the way. Prognosis is guarded. No additional recommendations are made. Labs, x-rays, and medications are reviewed. Time with Patient: Less than 30
--- NOTE | 2024-01-13 13:06 | US ---
EXAMINATION TYPE: US kidneys/renal and bladder DATE OF EXAM: 01/13/2024 COMPARISON: NONE CLINICAL INDICATION: Female, 73 years old with history of farhat; Covid pt with farhat, large habitus EXAM MEASUREMENTS: Right Kidney: 10.6 x 5.1 x 5.6cm Left Kidney: 8.6 x 4.2 x 5.6cm Right Kidney: No hydronephrosis or masses seen Left Kidney: No hydronephrosis or masses seen, smaller in size, limited views due to habitus and ashok l gas Renal cortex is mildly thinned. There is cortical medullary differentiation. Bladder: perla cath IMPRESSION: No hydronephrosis or nephrolithiasis.
[2024-01-13 13:24] LABS: Appearance,Urine Cloudy (Clear); Bacteria,Urine Many /hpf; Bilirubin,Urine Negative (Negative); Blood,Urine Large (Negative); Budding Yeast,Urine Moderate /hpf; Color,Urine Yellow; Glucose,Urine (UA) Negative (Negative); Hyaline Casts,Urine 91 /lpf (0-2); Ketones,Urine Negative (Negative); Leukocyte Esterase,Urine Large (Negative); Mucus,Urine Rare /hpf; Nitrite,Urine Positive (Negative); Protein,Urine Trace (Negative); RBC,Urine 143 /hpf (0-5); Specific Gravity,Urine 1.011 (1.001-1.035); Squamous Epithelial Cell,Urine 1 /hpf (0-4); Urobilinogen,Urine <2.0 mg/dL (<2.0); WBC,Urine 117 /hpf (0-5)
[2024-01-13] MEDS: metOLazone 5 MG TAB PO SCH (13:38)
--- NOTE | 2024-01-13 14:28 | P.PN ---
Subjective Progress Note Date: 01/13/24 H&P Date: 01/10/24 Chief Complaint: Dyspnea, positive COVID This is a 73-year-old female from [facility] subacute rehab readmitted with acute on chronic exacerbation of CHF, acute COVID infection, persistent atrial fibrillation, pulmonary hypertension, morbid obesity and multiple other medical issues. Recently discharged on January 02, 2024, secondary to CHF. Reports over the last few days has been waking up during her sleep with increased shortness of breath, unable to lay flat, nonproductive cough.Tested positive for COVID. Denies chest pain, palpitations. Maintaining O2 sats in the high 90s on 3 to 4 L nasal Cannula. IV push diuretics initiated in the ER. 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 Probable mild to moderate congestive edema and atelectasis with trace effusion, findings slightly increased compared to prior exam.proBNP 11,500 .afebrile ,WBC 6.0. Hemoglobin 12.4, Platelets 221. Sodium 134,Potassium 4.0, BUN 32,Creatinine 1.39. 01/13/2024 maintained on Lasix drip, maintaining O2 sats in the 90s on 4-1/2 L of nasal cannula O2. Reports rough night last night, due to her shortness of breath. Eliquis on hold for potential left-sided thoracentesis. Telemetry atrial fibrillation with heart rates in the low 100s to 110. nephrology consult in place, recommendations pending abdomen/bladder ultrasound pending. Objective - Vital Signs Vital signs: Vital Signs Temp 97.5 F L 01/13/24 08:00 Pulse 110 H 01/13/24 12:00 Resp 18 01/13/24 12:00 BP 103/72 01/13/24 12:00 Pulse Ox 97 01/13/24 12:00 FiO2 Intake & Output 01/12/24 01/13/24 01/13/24 18:59 06:59 18:59 Intake Total 337.5 100 323 Output Total 500 660 675 Balance -162.5 -560 -352 Weight 129.5 kg Intake: Intake, IV Titration 97.5 100 83 Amount Furosemide 100 mg In 97.5 100 83 Sodium Chloride 0.9% 90 ml @ 10 MG/HR 10 mls/hr IV .Q10H [facility] Rx#: [id number] Oral 240 240 Output: Urine 500 660 675 Other: Voiding Method Indwelling Catheter Indwelling Catheter Indwelling Catheter - Exam PHYSICAL EXAM: VITAL SIGNS: [As above] GENERAL: Alert and oriented 3, sitting up in bed, no acute distress. HEENT: Normocephalic, Conjunctivae normal.MMM. NECK: Supple, No JVD. CARDIOVASCULAR: S1, S2 normal. irregular rhythm. Tachycardic-mild, systolic murmur. RESPIRATION: Lungs diminished with expiratory wheezing, fine bibasilar crackles ABDOMEN: Soft, nondistended, nontender. +BS. LEGS: chronic bilateral lower extremity edema. NERVOUS SYSTEM: Cranial nerves II through XII grossly intact. Skin: Warm and dry. - Labs CBC & Chem 7: 01/11/24 05:28 01/13/24 08:56 Labs: Abnormal Lab Results - Last 24 Hours (Table) 01/13/24 01/13/24 Range/Units 08:56 13:04 Sodium 135 L (137-145) mmol/L Chloride 97 L (98-107) mmol/L BUN 40 H (7-17) mg/dL Creatinine 1.50 H (0.52-1.04) mg/dL Urine Appearance Cloudy H (Clear) Urine Protein Trace H (Negative) Urine Blood Large H (Negative) Urine Nitrite Positive H (Negative) Ur Leukocyte Esterase Large H (Negative) Urine RBC 143 H (0-5) /hpf Urine WBC 117 H (0-5) /hpf Urine WBC Clumps Moderate H (None) /hpf Urine Bacteria Many H (None) /hpf Hyaline Casts 91 H (0-2) /lpf Urine Mucus Rare H (None) /hpf Urine Yeast (Budding) Moderate H (None) /hpf Assessment and Plan Assessment: Acute on chronic CHF exacerbation, mildly reduced EF ,diastolic dysfunction, EF 45-50 %. Severe biatrial enlargement, left greater than right, severe central mitral regurgitation. Acute COVID 19 infection Acute on chronic hypoxic respiratory failure secondary to the above History of pleural effusions with previous thoracentesis and September 2023, transudate, negative for malignancy Chronic renal failure stage IIIa Chronic Atrial fibrillation with rapid ventricular rate, status post RICO and car dioversion,11/16 reporting severe MR History of Bilateral pleural effusions status post bilateral th oracentesis,transudative;Cytology negative for malignancy Pulmonary embolism bilaterally status post EKOS, 03/14/2022 Pulmonary hypertension Moderate mitral and tricuspid regurgitation Hypothyroidism, levothyroxine dose recently increased on last admission Hypertension, Hyperlipidemia Osteoarthritis with history right knee placement in July 2022. Morbid obesity, BMI 45 Anxiety Plan: Continue on current medication regimen ,monitoring and symptomatic treatment. Potential thoracentesis as per pulmonary. Lasix drip ,strict I&O's/CHF pathway. COVID cocktail ordered. Close monitoring of renal function. Nephrology consult in place, recommendations pending The impression and plan of care has been dictated as directed. : I performed a history and examination of this patient, discussed the same with the dictator. I agree with the dictator's note ,documented as a scribe. Any additional findings or plans will be noted.
[2024-01-13 20:56] LABS: Glucose,Whole Blood 71 mg/dL (70-110)
[2024-01-13] MEDS: PAXLOVID PO SCH (21:03)
[2024-01-14 00:17] LABS: Glucose,Whole Blood 84 mg/dL (70-110)
[2024-01-14] MEDS: ALPRAZolam 0.25 MG TAB PO STA (03:39)
[2024-01-14] MEDS: PANTOPRAZOLE 40 MG TABLET PO SCH (06:12)
--- NOTE | 2024-01-14 10:33 | P.PN ---
Subjective Progress Note Date: 01/14/24 Principal diagnosis: Congestive heart failure. Acute on chronic hypoxic respiratory failure secondary to acute exacerbation of diastolic congestive heart failure This is a 73-year-old female patient with a known history of atrial fibrillation, pulmonary embolism, hypertension, hype per lipidemia, hypothyroidism, congestive heart failure, chronic kidney disease stage III, ple ural effusions with previous thoracentesis, osteoarthritis. She was recently discharged on January 02, 2024 following a diastolic CHF exacerbation. She presented here to the emergency room early this morning from [facility] with a 3-day history of paroxysmal nocturnal dyspnea, dry cough and shortness of breath. She also had lower extremity edema. 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 Mild to moderate congestive heart failure and atelectasis with trace effusions. Stable compared to previous chest x-ray on December 29, 2023. White count 6.0. Hemoglobin 12.4. Platelets 221. Sodium 134. Potassium 4.0. Bicarb 32. BUN 32. Creatinine 1.39. Glucose 90. Troponins negative x 3. proBNP 11,500. She did test positive for COVID-19 infection. She is seen today in the emergency department. She is sitting up on the stretcher. Awake and alert in no acute distress. She is maintaining O2 saturations in the 90s on 3 L/min per nasal cannula. She has been initiated on IV diuretics. She is anticoagulated with Eliquis. Patient was seen and evaluated today on 01/11/2024, patient is on 3 L nasal cannula, O2 saturation 96%, continues to have shortness of breath, quite dyspneic since 4:00 this morning, blood pressure is marginal, patient is lopez pposed to go on Lasix drip today, her chest x-ray on admission clearly showed evidence of pulmonary edema. Urine output in the last 24 hours has been about 700 cc. Patient is also developing atrial fibrillation with RVR, and that is being addressed by cardiology on the case.WBC count is 6.08 hemoglobin 11.9 electrolytes are normal BUN is 29 creatinine 1.5 Patient was reevaluated today on 01/12/2024, on 4 L nasal cannula, O2 saturation 98%, however the patient seems to be quite short of breath patient is not making a significant amount of urine in spite of being on Lasix drip, her renal profile is basically about the same creatinine is 1.52, it was 1.5 yesterday have WBC count is 6.0 hemoglobin 11.9. Platelets are 241k Progress note dated January 13, 2024. This is a 73-year-old female seen today room 359. The patient is currently on 4-1/2 L of oxygen. Saturations are 98%. She is receiving a Lasix drip at 10 mg an hour. She is not receiving any IV fluids. She is sitting upright in her bed. She appears not to have any respiratory distress or difficulty. There is no audible wheezing. Labs today include a sodium 135, potassium 4.3, chlorides 97, CO2 30, anion gap 8, BUN 40, creatinine 1.50. Calcium is 8.8. Glucose is 88. Ultrasound of the chest shows a pleural fluid pocket on the right side, a 5 cm, and on the left side, 8.9 cm. Progress note dated January 14, 2024. This is a 73-year-old female seen today in room 359. She is lying in bed. The patient is currently on oxygen, at 3.5 L. She is not receiving any IV fluids. She continues on a Lasix drip at 10 mg an hour. She looks relatively comfortable. No new labs today other than a glucose of 84. She appears not to have any respiratory distress or difficulty. Objective - Vital Signs Vital signs: Vital Signs Temp 97.6 F 01/14/24 09:05 Pulse 118 H 01/14/24 09:05 Resp 16 01/14/24 09:05 BP 107/68 01/14/24 09:05 Pulse Ox 97 01/14/24 09:05 FiO2 Intake & Output 01/13/24 01/14/24 01/14/24 18:59 06:59 18:59 Intake Total 406.833 81.333 Output Total 1075 850 Balance -668.167 -768.667 Weight 132.5 kg Intake: IV 10 0.9 10 Intake, IV Titration 166.833 71.333 Amount Furosemide 100 mg In 166.833 71.333 Sodium Chloride 0.9% 90 ml @ 10 MG/HR 10 mls/hr IV .Q10H [facility] Rx#: [id number] Oral 240 Output: Urine 1075 850 Other: Voiding Method Indwelling Catheter Indwelling Catheter Indwelling Catheter - Exam No acute distress, oriented 3. No respiratory distress. Currently on 3.5 L of oxygen. HEENT examination is grossly unremarkable. Mucous membranes are moist. No oral lesions. Neck supple. Full range of motion. No adenopathy thyromegaly or neck vein distention. Cardiovascular examination reveals regular rhythm rate. S1-S2 normal. No S3 or S4. No discernible murmur noted. Heart rate 113 bpm. Lungs reveal diminished bibasilar breath sounds. Mostly clear breath sounds. Minimal rhonchi. No crackles. No wheezes. Saturations are 97%. That saturation is on 3.5 L of oxygen. Abdomen soft bowel sounds are heard. No masses or tenderness. Extremities are intact. No cyanosis or clubbing. Edema is noted. Skin is without rash or lesion. Neurologic examination is brief but nonfocal. - Labs CBC & Chem 7: 01/11/24 05:28 01/13/24 08:56 Labs: Abnormal Lab Results - Last 24 Hours (Table) 01/13/24 Range/Units 13:04 Urine Appearance Cloudy H (Clear) Urine Protein Trace H (Negative) Urine Blood Large H (Negative) Urine Nitrite Positive H (Negative) Ur Leukocyte Esterase Large H (Negative) Urine RBC 143 H (0-5) /hpf Urine WBC 117 H (0-5) /hpf Urine WBC Clumps Moderate H (None) /hpf Urine Bacteria Many H (None) /hpf Hyaline Casts 91 H (0-2) /lpf Urine Mucus Rare H (None) /hpf Urine Yeast (Budding) Moderate H (None) /hpf Assessment and Plan Assessment: Acute on chronic hypoxemic respiratory failure, secondary to acute diastolic CHF. Acute COVID-19 infection, without coronavirus associated pneumonia. Chronic atrial fibrillation. Acute on chronic kidney disease, stage III. History of pleural effusion, S/P thoracentesis in September 2023. History of pulmonary embolism. Benign essential hypertension. Hypothyroidism. Degenerative joint disease. Morbid obesity. Plan: Plan dated January 13, 2024. The patient is currently on a Lasix drip, at 10 mg an hour. Her oxygen requirements have come down from 4.5 L, down to 3 L. Her saturations are excellent. For the time being, no thoracentesis. The pocket on the right is relatively small, the pocket on the left, a bit larger. We will continue to follow make recommendations along the way. Prognosis is guarded. No additional recommendations are made. Labs, x-rays, and medications are reviewed. Plan dated January 22, 2024. The patient is seen today in room 359. She is on 3.5 L of oxygen. She is not receiving any IV fluids. She continues on Lasix drip at 10 mg an hour. Labs, x-rays, and medications are reviewed. The patient clinically appears to be relatively stable. She can speak in full sentences. There is no conversational dyspnea or use of accessory muscles. Labs, x-rays, medications are reviewed. We will continue to follow the patient, and make recommendations along the way. Prognosis is guarded. Time with Patient: Less than 30
--- NOTE | 2024-01-14 10:54 | P.PN ---
Subjective HISTORY OF PRESENT ILLNESS: This is a 73-year-old female with a past medical history significant for persistent atrial fibrillation, pulmonary embolism with EKOS, hypertension, hyperlipidemia, hypothyroidism, pulmonary hypertension, congestive heart failure, and morbid obesity. Patient follows in the office with Dr. Sylvester. We have been asked to see the patient in consultation for congestive heart failure. Patient examined at the bedside in the emergency room. Patient was admitted to the hospital earlier this month for an acute exacerbation of congestive heart failure. She was discharged to [facility]. She presented back to the emergency room yesterday with a chief complaint of shortness of breath. She states that she has been feeling short of breath for the past week. She states that she is unable to lay flat in bed and has been waking up at night short of breath. She states that she has been laying propped up to sleep. She reports chronic lower extremity edema although it is worsened than her baseline. She denies any chest pain or pressure. She was also found to be positive for COVID. She was started on IV Lasix per the emergency room physician. Patient's vital signs are stable. Bedside telemetry reveals atrial fibrillation with controlled ventricular rate. DIAGNOSTICS: - EKG reveals atrial fibrillation with mildly uncontrolled ventricular rate of 107. No signs of acute ischemia.. 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 Probable mild to moderate congestive edema and atelectasis with trace effusion.. - Laboratory data: WBC 6.0. Hemoglobin 12.4. Platelet count 221. Sodium 134. Potassium 4.0. BUN 32. Creatinine 1.39. Troponin negative x 3. proBNP 11,500. - Current home cardiac medications include Farxiga 10 mg daily, Aldactone 25 mg daily, Eliquis 5 mg twice a day, Lasix 40 mg twice a day, midodrine 10 mg twice a day. - Patient underwent RICO and cardioversion on November 07, 2023. RICO revealed mild to moderate AR, severe MR, moderate TR, no evidence of PFO, EF 55% patient states she stayed in sinus mechanism for 1 day and then went back into atrial fibrillation. - Most recent echocardiogram obtained in September 2023 revealed ejection fraction 45 to 50% - Cardiac catheterization history: October 2023 revealing normal coronary arteries with elevated left-sided filling pressures 01/11/2024 Patient examined this morning on 4 S. Patient denies chest pain or pressure. She reports significant shortness of breath this morning and states she has been feeling dyspneic since 4 AM. Patient appears to be in mild distress at the time of examination with a respiratory rate in the 30s. Telemetry reveals atrial fibrillation with heart rate in the 130s. Patient is receiving Bumex 2 mg every 8 hours. Urine output over the last 24 hours is documented as 700 cc. Patient's metoprolol has been held secondary to "low blood pressure". Patient's midodrine was also held this morning by midnight shift secondary to "high blood pressure". 01/12 Patient was transferred from [facility] yesterday to cardiac stepdown unit. She was started on Lasix drip at 10 mg/h. Patient has had very little urine output she has a Louis catheter in place. Output was 700 mL. She states she has a cough with phlegm production that is either red or green. She feels a little bit better from yesterday and thinks the Xanax and oxygen has helped. Blood pressure 94/58, heart rate 102, pulse ox is 98% on 4 L nasal cannula. Patient is being weaned from max of 6 L that was started yesterday. 01/13/2024 Patient examined this morning at the bedside. Patient continues to report shortness of breath. She denies any chest pain or pressure. She remains on supplemental oxygen with oxygen saturations greater than 92%. Telemetry reveals atrial fibrillation with a heart rate between [id number]. Blood pressure 101/70. Urine output for the last 24 hours is about 1 L. 01/14/2024 Patient examined this morning at the bedside. Patient appears to be resting comfortably. She denies chest pain or pressure. Reports mild shortness of breath. Urine output over the last 24 hours is 1925 cc. She remains on a Lasix drip at 10 mg an hour. Kidney function from this morning is currently pending. PHYSICAL EXAM: VITAL SIGNS: Reviewed. GENERAL: Well-developed in no mild distress. HEENT: Head is normocephalic. Pupils are equal, round. Sclerae anicteric. Mucous membranes of the mouth are moist. Neck supple. No JVD LUNGS: Respirations even and unlabored. Lungs with crackles throughout HEART: Mildly tachycardic. Irregular rate and rhythm. S1 and S2 heard. + systolic murmur ABDOMEN: Soft. Nondistended. Nontender. EXTREMITIES: Normal range of motion. No clubbing or cyanosis. Peripheral pulses intact. 3+ bilateral lower extremity edema NEUROLOGIC: Awake and alert. Oriented x 3. ASSESSMENT: Shortness of breath Acute COVID-19 Acute on chronic heart failure with mildly reduced EF, echo reveals EF 5-50 Recent hospitalization for CHF, December 2023 Normal coronary arteries, per cardiac catheterization, 10/2023 Persistent atrial fibrillation History of RICO and cardioversion, October 2023, lasting approximately 24 hours before going back into atrial fibrillation per patient History of bilateral PE with EKOS procedure, February 2022 History of right pleural effusion, status post thoracentesis 10/08/2023 with removal of 1200 cc History of left pleural effusion, status post thoracentesis 10/09/2023 with removal of 550 cc History of hypertension History of hyperlipidemia History of hypothyroidism Pulmonary hypertension Morbid obesity: BMI 45.4 Valvular heart disease PLAN: Continue current cardiac medications Continue IV Lasix drip at 10 mg an hour Daily weights, accurate intake and output, and monitoring of kidney function Continue telemetry monitoring Patient with severe MR on recent RICO. Consider outpatient right heart cath and possible mitral clipping Further recommendations pending patient course Nurse practitioner note has been reviewed by physician. Signing provider agrees with the documented findings, assessment, and plan of care documented by [employer] as a scribe. Objective - Vital Signs Vital signs: Vital Signs Temp 97.6 F 01/14/24 09:05 Pulse 118 H 01/14/24 09:05 Resp 16 01/14/24 09:05 BP 107/68 01/14/24 09:05 Pulse Ox 97 01/14/24 09:05 FiO2 Intake & Output 01/13/24 01/14/24 01/14/24 18:59 06:59 18:59 Intake Total 406.833 81.333 0 Output Total 1075 850 Balance -668.167 -768.667 0 Weight 132.5 kg Intake: IV 10 0.9 10 Intake, IV Titration 166.833 71.333 Amount Furosemide 100 mg In 166.833 71.333 Sodium Chloride 0.9% 90 ml @ 10 MG/HR 10 mls/hr IV .Q10H [facility] Rx#: [id number] Oral 240 0 Output: Urine 1075 850 Other: Voiding Method Indwelling Catheter Indwelling Catheter Indwelling Catheter - Labs CBC & Chem 7: 01/11/24 05:28 01/13/24 08:56 Labs: Abnormal Lab Results - Last 24 Hours (Table) 01/13/24 Range/Units 13:04 Urine Appearance Cloudy H (Clear) Urine Protein Trace H (Negative) Urine Blood Large H (Negative) Urine Nitrite Positive H (Negative) Ur Leukocyte Esterase Large H (Negative) Urine RBC 143 H (0-5) /hpf Urine WBC 117 H (0-5) /hpf Urine WBC Clumps Moderate H (None) /hpf Urine Bacteria Many H (None) /hpf Hyaline Casts 91 H (0-2) /lpf Urine Mucus Rare H (None) /hpf Urine Yeast (Budding) Moderate H (None) /hpf
[2024-01-14 12:26] LABS: African American GFR (CKD) 35 (>60 ml/min/1.73 sqM); Anion Gap 7 mmol/L; Blood Urea Nitrogen 43 mg/dL (7-17); Calcium 8.7 mg/dL (8.4-10.2); Carbon Dioxide 29 mmol/L (22-30); Chloride 98 mmol/L (98-107); Glucose 75 mg/dL (74-99); Non-African American GFR(CKD) 30 (>60 ml/min/1.73 sqM); Potassium 4.4 mmol/L (3.5-5.1); Sodium 134 mmol/L (137-145)
--- NOTE | 2024-01-14 13:48 | P.PN ---
Subjective Progress Note Date: 01/14/24 H&P Date: 01/10/24 Chief Complaint: Dyspnea, positive COVID This is a 73-year-old female from [facility] subacute rehab readmitted with acute on chronic exacerbation of CHF, acute COVID infection, persistent atrial fibrillation, pulmonary hypertension, morbid obesity and multiple other medical issues. Recently discharged on January 02, 2024, secondary to CHF. Reports over the last few days has been waking up during her sleep with increased shortness of breath, unable to lay flat, nonproductive cough.Tested positive for COVID. Denies chest pain, palpitations. Maintaining O2 sats in the high 90s on 3 to 4 L nasal Cannula. IV push diuretics initiated in the ER. 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 Probable mild to moderate congestive edema and atelectasis with trace effusion, findings slightly increased compared to prior exam.proBNP 11,500 .afebrile ,WBC 6.0. Hemoglobin 12.4, Platelets 221. Sodium 134,Potassium 4.0, BUN 32,Creatinine 1.39. 01/13/2024 maintained on Lasix drip, maintaining O2 sats in the 90s on 4-1/2 L of nasal cannula O2. Reports rough night last night, due to her shortness of breath. Eliquis on hold for potential left-sided thoracentesis. Telemetry atrial fibrillation with heart rates in the low 100s to 110. nephrology consult in place, recommendations pending abdomen/bladder ultrasound pending. 01/14/2024 maintained on Lasix drip, diuresing well with 25-hour I&O reflecting a negative fluid balance. Creatinine-BMP pending. reports rough night, experienced a panic attack received additional dose of Xanax. During the panic attack, oxygen increased up to 5 L, maintaining O2 sats of 98% - can be titrated back down. denies chest pain, palpitations or increased shortness of breath. UA positive for UTI, positive nitrates, large leukocytes, moderate WBC clumps many bacteria, urine WBC 117, urine culture ordered. Objective - Vital Signs Vital signs: Vital Signs Temp 97.6 F 01/14/24 09:05 Pulse 80 01/14/24 11:15 Resp 18 01/14/24 11:15 BP 93/68 01/14/24 11:15 Pulse Ox 97 01/14/24 11:15 FiO2 Intake & Output 01/13/24 01/14/24 01/14/24 18:59 06:59 18:59 Intake Total 406.833 81.333 100 Output Total 1075 850 Balance -668.167 -768.667 100 Weight 132.5 kg Intake: IV 10 0.9 10 Intake, IV Titration 166.833 71.333 100 Amount Furosemide 100 mg In 166.833 71.333 100 Sodium Chloride 0.9% 90 ml @ 10 MG/HR 10 mls/hr IV .Q10H [facility] Rx#: [id number] Oral 240 0 Output: Urine 1075 850 Other: Voiding Method Indwelling Catheter Indwelling Catheter Indwelling Catheter # Bowel Movements 2 - Exam PHYSICAL EXAM: VITAL SIGNS: [As above] GENERAL: Alert and oriented 3, sitting up in bed, tired, no acute distress. HEENT: Normocephalic, Conjunctivae normal.MMM. NECK: Supple, No JVD. CARDIOVASCULAR: S1, S2 normal. irregular rhythm. Tachycardic-mild, systolic murmur. RESPIRATION: Lungs diminished with fine bibasilar crackles ABDOMEN: Soft, nondistended, nontender. +BS. LEGS: chronic bilateral lower extremity edema. NERVOUS SYSTEM: Cranial nerves II through XII grossly intact. Skin: Warm and dry. - Labs CBC & Chem 7: 01/11/24 05:28 01/14/24 10:30 Labs: Abnormal Lab Results - Last 24 Hours (Table) 01/14/24 Range/Units 10:30 Sodium 134 L (137-145) mmol/L BUN 43 H (7-17) mg/dL Creatinine 1.65 H (0.52-1.04) mg/dL Assessment and Plan Assessment: Acute on chronic CHF exacerbation, mildly reduced EF ,diastolic dysfunction, EF 45-50 %. Severe biatrial enlargement, left greater than right, severe central mitral regurgitation. Acute COVID 19 infection Acute UTI, culture ordered Acute on chronic hypoxic respiratory failure secondary to the above History of pleural effusions with previous thoracentesis and September 2023, transudate, negative for malignancy Chronic renal failure stage IIIa Chronic Atrial fibrillation with rapid ventricular rate, status post RICO and cardioversion,11/16 reporting severe MR History of Bilateral pleural effusions status post bilateral thoracentesis,transudative;Cytology negative for malignancy Pulmonary embolism bilaterally status post EKOS, 03/14/2022 Pulmonary hypertension Moderate mitral and tricuspid regurgitation Hypothyroidism, levothyroxine dose recently increased on last admission Hypertension, Hyperlipidemia Osteoarthritis with history right knee placement in July 2022. Morbid obesity, BMI 45 Anxiety Plan: Continue on current medication regimen ,monitoring and symptomatic treatment. Ceftriaxone ordered for positive UA, culture pending . Lasix drip - close monitoring of renal function, BMP pending. The impression and plan of care has been dictated as directed. : I performed a history and examination of this patient, discussed the same with the dictator. I agree with the dictator's note ,documented as a scribe. Any additional findings or plans will be noted.
[2024-01-14 15:30] LABS: Glucose,Whole Blood 88 mg/dL (70-110)
--- NOTE | 2024-01-14 16:55 | P.PN ---
Subjective Patient is seen for follow-up for acute kidney injury and volume overload. Currently maintained on Lasix drip at 10 mg an hour. Urine output at 1.9 L. Patient has an indwelling Louis catheter. Labs are pending from today. Patient complained of shortness of breath early this morning, currently improved. She is maintained on 3 L nasal cannula with O2 sats at 98%. Objective - Vital Signs Vital signs: Vital Signs Temp 98.6 F 01/14/24 15:05 Pulse 116 H 01/14/24 15:05 Resp 16 01/14/24 15:05 BP 117/79 01/14/24 15:05 Pulse Ox 98 01/14/24 15:05 FiO2 Intake & Output 01/13/24 01/14/24 01/14/24 18:59 06:59 18:59 Intake Total 406.833 81.333 100 Output Total 1075 850 Balance -668.167 -768.667 100 Weight 132.5 kg Intake: IV 10 0.9 10 Intake, IV Titration 166.833 71.333 100 Amount Furosemide 100 mg In 166.833 71.333 100 Sodium Chloride 0.9% 90 ml @ 10 MG/HR 10 mls/hr IV .Q10H [facility] Rx#: [id number] Oral 240 0 Output: Urine 1075 850 Other: Voiding Method Indwelling Catheter Indwelling Catheter Indwelling Catheter # Bowel Movements 2 - Exam Patient is awake, comfortable, and she is short of breath. No acute distress. Examination of the heart S1 and S2 Examination the lungs decreased breath sounds at the bases Abdomen is obese, soft nontender Examination of lower extremities shows significant edema about 3+ bilaterally [employer] exam grossly intact - Labs CBC & Chem 7: 01/11/24 05:28 01/14/24 10:30 Labs: Abnormal Lab Results - Last 24 Hours (Table) 01/14/24 Range/Units 10:30 Sodium 134 L (137-145) mmol/L BUN 43 H (7-17) mg/dL Creatinine 1.65 H (0.52-1.04) mg/dL Assessment and Plan Assessment: 1. Acute kidney injury, nonoliguric ATN secondary to hypotension. Patient is being diuresed for severe volume overload. Ejection fraction 45-50%. Maintained on Lasix drip. Ultrasound of the kidneys shows no evidence of hydronephrosis. UA shows trace protein large blood and WBCs 117 2. Severe volume overload 3. A. fib with RVR maintained on metoprolol and maintained on midodrine due to significant hypotension. 4. Acute hypoxic respiratory failure secondary to volume overload and CHF exacerbation. 5. Covid infection with chest x-ray showing mostly congestive heart failure changes. 6. Pyuria rule out UTI. Treat with antibiotics given the hypotension. Plan: Continue with Lasix drip Continue with midodrine Agree with starting antibiotics for UTI. Check urine culture Avoid nephrotoxic agents.
[2024-01-14] MEDS: ZINC OXIDE PASTE (Z-GUARD) 1 APPLIC TOPICAL PRN (17:56)
[2024-01-14] MEDS: ALPRAZolam 0.5 MG TAB PO PRN (20:57)
[2024-01-15] MEDS: DEXTROSE 50% SYRINGE 50 ML IVP ONE (09:50)
[2024-01-15 09:53] LABS: Glucose,Whole Blood <20 mg/dL (70-110)
[2024-01-15 10:12] LABS: Glucose,Whole Blood 106 mg/dL (70-110)
[2024-01-15] MEDS ORDERED: DEXTROSE 50% SYRINGE 50 ML IVP PRN (10:30)
[2024-01-15] MEDS: DEXTROSE 50% SYRINGE 50 ML IVP PRN (10:48)
[2024-01-15 10:52] LABS: Glucose,Whole Blood 55 mg/dL (70-110)
[2024-01-15 10:59] LABS: African American GFR (CKD) 20 (>60 ml/min/1.73 sqM); Anion Gap 24 mmol/L; Blood Urea Nitrogen 47 mg/dL (7-17); Calcium 9.6 mg/dL (8.4-10.2); Carbon Dioxide 16 mmol/L (22-30); Chloride 96 mmol/L (98-107); Non-African American GFR(CKD) 18 (>60 ml/min/1.73 sqM); Potassium 5.6 mmol/L (3.5-5.1); Sodium 136 mmol/L (137-145)
[2024-01-15 11:00] LABS: Glucose <20 mg/dL (74-99)
--- NOTE | 2024-01-15 11:10 | P.PN ---
Subjective Progress Note Date: 01/15/24 Principal diagnosis: Congestive heart failure. Acute on chronic hypoxic respiratory failure secondary to acute exacerbation of diastolic congestive heart failure This is a 73-year-old female patient with a known history of atrial fibrillation, pulmonary embolism, hypertension, hype per lipidemia, hypothyroidism, congestive heart failure, chronic kidney disease stage III, ple ural effusions with previous thoracentesis, osteoarthritis. She was recently discharged on January 02, 2024 following a diastolic CHF exacerbation. She presented here to the emergency room early this morning from [facility] with a 3-day history of paroxysmal nocturnal dyspnea, dry cough and shortness of breath. She also had lower extremity edema. 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 Mild to moderate congestive heart failure and atelectasis with trace effusions. Stable compared to previous chest x-ray on December 29, 2023. White count 6.0. Hemoglobin 12.4. Platelets 221. Sodium 134. Potassium 4.0. Bicarb 32. BUN 32. Creatinine 1.39. Glucose 90. Troponins negative x 3. proBNP 11,500. She did test positive for COVID-19 infection. She is seen today in the emergency department. She is sitting up on the stretcher. Awake and alert in no acute distress. She is maintaining O2 saturations in the 90s on 3 L/min per nasal cannula. She has been initiated on IV diuretics. She is anticoagulated with Eliquis. Patient was seen and evaluated today on 01/11/2024, patient is on 3 L nasal cannula, O2 saturation 96%, continues to have shortness of breath, quite dyspneic since 4:00 this morning, blood pressure is marginal, patient is lopez pposed to go on Lasix drip today, her chest x-ray on admission clearly showed evidence of pulmonary edema. Urine output in the last 24 hours has been about 700 cc. Patient is also developing atrial fibrillation with RVR, and that is being addressed by cardiology on the case.WBC count is 6.08 hemoglobin 11.9 electrolytes are normal BUN is 29 creatinine 1.5 Patient was reevaluated today on 01/12/2024, on 4 L nasal cannula, O2 saturation 98%, however the patient seems to be quite short of breath patient is not making a significant amount of urine in spite of being on Lasix drip, her renal profile is basically about the same creatinine is 1.52, it was 1.5 yesterday have WBC count is 6.0 hemoglobin 11.9. Platelets are 241k Progress note dated January 13, 2024. This is a 73-year-old female seen today room 359. The patient is currently on 4-1/2 L of oxygen. Saturations are 98%. She is receiving a Lasix drip at 10 mg an hour. She is not receiving any IV fluids. She is sitting upright in her bed. She appears not to have any respiratory distress or difficulty. There is no audible wheezing. Labs today include a sodium 135, potassium 4.3, chlorides 97, CO2 30, anion gap 8, BUN 40, creatinine 1.50. Calcium is 8.8. Glucose is 88. Ultrasound of the chest shows a pleural fluid pocket on the right side, a 5 cm, and on the left side, 8.9 cm. Progress note dated January 14, 2024. This is a 73-year-old female seen today in room 359. She is lying in bed. The patient is currently on oxygen, at 3.5 L. She is not receiving any IV fluids. She continues on a Lasix drip at 10 mg an hour. She looks relatively comfortable. No new labs today other than a glucose of 84. She appears not to have any respiratory distress or difficulty. Progress note dated January 15, 2024. 73-year-old female seen today in room 359. The patient was apparently found to be a bit lethargic this morning. Her glucose when tested, was low, and was not able to be actually evaluated. The patient was given D50. Currently, the patient is on 3 L of oxygen, but her oxygen was off, when the nurses came to evaluate her, her saturations were in the 80s. They placed a nonrebreather on her. She is getting Rocephin IV, and Lasix 5 mg an hour. We started her on D10 W, at 50 cc an hour for her hypoglycemia. We have asked the primary service to address CODE STATUS. Laboratory data today includes a sodium 136, potassium 5.6, chloride 96, CO2 16, anion gap 24, BUN 47, creatinine 2.57. The patient's glucose initially was less than 20. Repeat glucose was 106. Objective - Vital Signs Vital signs: Vital Signs Temp 98 F 01/15/24 04:00 Pulse 120 H 01/15/24 04:00 Resp 18 01/15/24 04:00 BP 124/70 01/15/24 04:00 Pulse Ox 94 L 01/15/24 08:29 FiO2 Intake & Output 01/14/24 01/15/24 01/15/24 18:59 06:59 18:59 Intake Total 100 85.5 100 Output Total 450 Balance 100 -364.5 100 Weight 124 kg Intake: Intake, IV Titration 100 85.5 100 Amount Furosemide 100 mg In 100 85.5 100 Sodium Chloride 0.9% 90 ml @ 10 MG/HR 10 mls/hr IV .Q10H [facility] Rx#: [id number] Oral 0 Output: Urine 450 Other: Voiding Method Indwelling Catheter Indwelling Catheter # Bowel Movements 2 - Exam No acute distress, lethargic. No respiratory distress. Currently on a nonrebreather mask. Patient was not wearing her nasal O2. HEENT examination is grossly unremarkable. Mucous membranes are moist. No oral lesions. Neck supple. Full range of motion. No adenopathy thyromegaly or neck vein distention. Cardiovascular examination reveals regular rhythm rate. S1-S2 normal. No S3 or S4. No discernible murmur noted. Heart rate 100 bpm. Lungs reveal diminished bibasilar breath sounds. Mostly clear breath sounds. Minimal rhonchi. No crackles. No wheezes. Saturations are 95 %. Currently on a nonrebreather. Should be on 3 L. Abdomen soft bowel sounds are heard. No masses or tenderness. Extremities are intact. No cyanosis or clubbing. Edema is noted. Skin is without rash or lesion. Neurologic examination reveals the patient to be lethargic. - Labs CBC & Chem 7: 01/11/24 05:28 01/15/24 09:17 Labs: Abnormal Lab Results - Last 24 Hours (Table) 01/14/24 01/15/24 01/15/24 Range/Units 10:30 09:17 09:48 Sodium 134 L 136 L (137-145) mmol/L Potassium 5.6 H (3.5-5.1) mmol/L Chloride 96 L (98-107) mmol/L Carbon Dioxide 16 L (22-30) mmol/L BUN 43 H 47 H (7-17) mg/dL Creatinine 1.65 H 2.57 H (0.52-1.04) mg/dL Glucose <20 L* (74-99) mg/dL POC Glucose (mg/dL) <20 L (70-110) mg/dL 01/15/24 Range/Units 10:42 Sodium (137-145) mmol/L Potassium (3.5-5.1) mmol/L Chloride (98-107) mmol/L Carbon Dioxide (22-30) mmol/L BUN (7-17) mg/dL Creatinine (0.52-1.04) mg/dL Glucose (74-99) mg/dL POC Glucose (mg/dL) 55 L (70-110) mg/dL Assessment and Plan Assessment: Acute on chronic hypoxemic respiratory failure, secondary to acute diastolic CHF. Acute COVID-19 infection, without coronavirus associated pneumonia. Chronic atrial fibrillation. Acute on chronic kidney disease, stage III. History of pleural effusion, S/P thoracentesis in September 2023. History of pulmonary embolism. Benign essential hypertension. Hypothyroidism. Degenerative joint disease. Morbid obesity. Plan: Plan dated January 13, 2024. The patient is currently on a Lasix drip, at 10 mg an hour. Her oxygen requirements have come down from 4.5 L, down to 3 L. Her saturations are excellent. For the time being, no thoracentesis. The pocket on the right is relatively small, the pocket on the left, a bit larger. We will continue to follow make recommendations along the way. Prognosis is guarded. No additional recommendations are made. Labs, x-rays, and medications are reviewed. Plan dated January 14, 2024. The patient is seen today in room 359. She is on 3.5 L of oxygen. She is not receiving any IV fluids. She continues on Lasix drip at 10 mg an hour. Labs, x-rays, and medications are reviewed. The patient clinically appears to be relatively stable. She can speak in full sentences. There is no conversational dyspnea or use of accessory muscles. Labs, x-rays, medications are reviewed. We will continue to follow the patient, and make recommendations along the way. Prognosis is guarded. Plan dated January 15, 2024. The nurses noted the room, the patient was not on any nasal O2. Her saturations were in the 80s. They placed her on nonrebreather mask. Also, her glucose was quite low, less than 20, they gave her D50. We started her on a D10W drip at 50 cc an hour. Labs, x-rays, and medications are reviewed. The primary service needs to address the CODE STATUS today, and we have also alerted the nurses to call a rapid response on this patient, should she continue to decline. Her prognosis is poor. Will continue to follow make recommendations along the way. No additional recommendations at this time. Time with Patient: Less than 30
[2024-01-15] MEDS: DEXTROSE 10% IN WATER 1,000 ML IV SCH (11:33)
[2024-01-15 11:39] LABS: ABG Base Excess -11.5 mmol/L; ABG HCO3 15 mmol/L (21-25); ABG Oxygen Saturation 89.2 % (94-97); ABG PCO2 34 mmHg (35-45); ABG PH 7.27 (7.35-7.45); ABG PO2 68 mmHg (83-108); ABG TCO2 17 mmol/L (19-24); Allen Test Performed? Yes
[2024-01-15 11:53] LABS: Glucose,Whole Blood 125 mg/dL (70-110)
[2024-01-15 11:53] LABS: Glucose,Whole Blood 102 mg/dL (70-110)
[2024-01-15 11:56] LABS: Glucose,Whole Blood 82 mg/dL (70-110)
--- NOTE | 2024-01-15 12:02 | XR ---
EXAMINATION TYPE: XR chest 1V portable DATE OF EXAM: 01/15/2024 COMPARISON: 01/11/2024 HISTORY: Respiratory distress TECHNIQUE: Single frontal view of the chest is obtained. FINDINGS: Limited inspiration with bilateral consolidation and small effusion. Heart size is stable. Atherosclerotic change of the aorta. Sizable pneumothorax. Hypertrophic and degenerative change of t he spine. Bilateral significant shoulder arthropathy with spurring along the inferior margin of the h umeral head. Surgical clips right upper quadrant. IMPRESSION: 1. Diffuse airspace disease with small bilateral effusions slightly improved from prior exam may be o n the basis of improving CHF versus pneumonia.
--- NOTE | 2024-01-15 12:26 | P.PN ---
Subjective HISTORY OF PRESENT ILLNESS: This is a 73-year-old female with a past medical history significant for persistent atrial fibrillation, pulmonary embolism with EKOS, hypertension, hyperlipidemia, hypothyroidism, pulmonary hypertension, congestive heart failure, and morbid obesity. Patient follows in the office with Dr. Sylvester. We have been asked to see the patient in consultation for congestive heart failure. Patient examined at the bedside in the emergency room. Patient was admitted to the hospital earlier this month for an acute exacerbation of congestive heart failure. She was discharged to [facility]. She presented back to the emergency room yesterday with a chief complaint of shortness of breath. She states that she has been feeling short of breath for the past week. She states that she is unable to lay flat in bed and has been waking up at night short of breath. She states that she has been laying propped up to sleep. She reports chronic lower extremity edema although it is worsened than her baseline. She denies any chest pain or pressure. She was also found to be positive for COVID. She was started on IV Lasix per the emergency room physician. Patient's vital signs are stable. Bedside telemetry reveals atrial fibrillation with controlled ventricular rate. DIAGNOSTICS: - EKG reveals atrial fibrillation with mildly uncontrolled ventricular rate of 107. No signs of acute ischemia.. 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 Probable mild to moderate congestive edema and atelectasis with trace effusion.. - Laboratory data: WBC 6.0. Hemoglobin 12.4. Platelet count 221. Sodium 134. Potassium 4.0. BUN 32. Creatinine 1.39. Troponin negative x 3. proBNP 11,500. - Current home cardiac medications include Farxiga 10 mg daily, Aldactone 25 mg daily, Eliquis 5 mg twice a day, Lasix 40 mg twice a day, midodrine 10 mg twice a day. - Patient underwent RICO and cardioversion on November 07, 2023. RICO revealed mild to moderate AR, severe MR, moderate TR, no evidence of PFO, EF 55% patient states she stayed in sinus mechanism for 1 day and then went back into atrial fibrillation. - Most recent echocardiogram obtained in September 2023 revealed ejection fraction 45 to 50% - Cardiac catheterization history: October 2023 revealing normal coronary arteries with elevated left-sided filling pressures 01/11/2024 Patient examined this morning on 4 S. Patient denies chest pain or pressure. She reports significant shortness of breath this morning and states she has been feeling dyspneic since 4 AM. Patient appears to be in mild distress at the time of examination with a respiratory rate in the 30s. Telemetry reveals atrial fibrillation with heart rate in the 130s. Patient is receiving Bumex 2 mg every 8 hours. Urine output over the last 24 hours is documented as 700 cc. Patient's metoprolol has been held secondary to "low blood pressure". Patient's midodrine was also held this morning by midnight shift secondary to "high blood pressure". 01/12 Patient was transferred from [facility] yesterday to cardiac stepdown unit. She was started on Lasix drip at 10 mg/h. Patient has had very little urine output she has a Louis catheter in place. Output was 700 mL. She states she has a cough with phlegm production that is either red or green. She feels a little bit better from yesterday and thinks the Xanax and oxygen has helped. Blood pressure 94/58, heart rate 102, pulse ox is 98% on 4 L nasal cannula. Patient is being weaned from max of 6 L that was started yesterday. 01/13/2024 Patient examined this morning at the bedside. Patient continues to report shortness of breath. She denies any chest pain or pressure. She remains on supplemental oxygen with oxygen saturations greater than 92%. Telemetry reveals atrial fibrillation with a heart rate between [id number]. Blood pressure 101/70. Urine output for the last 24 hours is about 1 L. 01/14/2024 Patient examined this morning at the bedside. Patient appears to be resting comfortably. She denies chest pain or pressure. Reports mild shortness of breath. Urine output over the last 24 hours is 1925 cc. She remains on a Lasix drip at 10 mg an hour. Kidney function from this morning is currently pending. 01/15/2024 Patient examined this morning at the bedside. Patient denies chest pain or pressure. She reports mild shortness of breath. She remains on a Lasix drip at 10 mg an hour. Urine output has decreased with 450 cc over the last 24 hours. Kidney function this morning is pending. PHYSICAL EXAM: VITAL SIGNS: Reviewed. GENERAL: Well-developed in no mild distress. HEENT: Head is normocephalic. Pupils are equal, round. Sclerae anicteric. Mucous membranes of the mouth are moist. Neck supple. No JVD LUNGS: Respirations even and unlabored. Lungs with crackles throughout HEART: Mildly tachycardic. Irregular rate and rhythm. S1 and S2 heard. + systolic murmur ABDOMEN: Soft. Nondistended. Nontender. EXTREMITIES: Normal range of motion. No clubbing or cyanosis. Peripheral pulses intact. 3+ bilateral lower extremity edema NEUROLOGIC: Awake and alert. Oriented x 3. ASSESSMENT: Shortness of breath Acute COVID-19 Acute on chronic heart failure with mildly reduced EF, echo reveals EF 5-50 Recent hospitalization for CHF, December 2023 Normal coronary arteries, per cardiac catheterization, 10/2023 Persistent atrial fibrillation History of RICO and cardioversion, October 2023, lasting approximately 24 hours before going back into atrial fibrillation per patient History of bilateral PE with EKOS procedure, February 2022 History of right pleural effusion, status post thoracentesis 10/08/2023 with removal of 1200 cc History of left pleural effusion, status post thoracentesis 10/09/2023 with removal of 550 cc History of hypertension History of hyperlipidemia History of hypothyroidism Pulmonary hypertension Morbid obesity: BMI 45.4 Valvular heart disease PLAN: Continue current cardiac medications Decrease Lasix drip to 5 mg an hour Daily weights, accurate intake and output, and monitoring of kidney function Continue telemetry monitoring Patient with severe MR on recent RICO. Consider outpatient right heart cath and possible mitral clipping Further recommendations pending patient course Nurse practitioner note has been reviewed by physician. Signing provider agrees with the documented findings, assessment, and plan of care documented by EXHIBITS MANAGER as a scribe. Objective - Vital Signs Vital signs: Vital Signs Temp 98 F 01/15/24 04:00 Pulse 120 H 01/15/24 04:00 Resp 18 01/15/24 04:00 BP 124/70 01/15/24 04:00 Pulse Ox 94 L 01/15/24 08:29 FiO2 60 01/15/24 12:04 Intake & Output 01/14/24 01/15/24 01/15/24 18:59 06:59 18:59 Intake Total 100 85.5 100 Output Total 450 Balance 100 -364.5 100 Weight 124 kg Intake: Intake, IV Titration 100 85.5 100 Amount Furosemide 100 mg In 100 85.5 100 Sodium Chloride 0.9% 90 ml @ 10 MG/HR 10 mls/hr IV .Q10H [facility] Rx#: [id number] Oral 0 Output: Urine 450 Other: Voiding Method Indwelling Catheter Indwelling Catheter # Bowel Movements 2 - Labs CBC & Chem 7: 01/11/24 05:28 01/15/24 10:56 Labs: Abnormal Lab Results - Last 24 Hours (Table) 01/14/24 01/15/24 01/15/24 Range/Units 10:30 09:17 09:48 ABG pH (7.35-7.45) ABG pCO2 (35-45) mmHg ABG pO2 (83-108) mmHg ABG HCO3 (21-25) mmol/L ABG Total CO2 (19-24) mmol/L ABG O2 Saturation (94-97) % Sodium 134 L 136 L (137-145) mmol/L Potassium 5.6 H (3.5-5.1) mmol/L Chloride 96 L (98-107) mmol/L Carbon Dioxide 16 L (22-30) mmol/L BUN 43 H 47 H (7-17) mg/dL Creatinine 1.65 H 2.57 H (0.52-1.04) mg/dL Glucose <20 L* (74-99) mg/dL POC Glucose (mg/dL) <20 L (70-110) mg/dL 01/15/24 01/15/24 01/15/24 Range/Units 10:42 10:56 11:06 ABG pH (7.35-7.45) ABG pCO2 (35-45) mmHg ABG pO2 (83-108) mmHg ABG HCO3 (21-25) mmol/L ABG Total CO2 (19-24) mmol/L ABG O2 Saturation (94-97) % Sodium (137-145) mmol/L Potassium (3.5-5.1) mmol/L Chloride (98-107) mmol/L Carbon Dioxide (22-30) mmol/L BUN (7-17) mg/dL Creatinine (0.52-1.04) mg/dL Glucose 124 H (74-99) mg/dL POC Glucose (mg/dL) 55 L 125 H (70-110) mg/dL 01/15/24 Range/Units 11:35 ABG pH 7.27 L (7.35-7.45) ABG pCO2 34 L (35-45) mmHg ABG pO2 68 L (83-108) mmHg ABG HCO3 15 L (21-25) mmol/L ABG Total CO2 17 L (19-24) mmol/L ABG O2 Saturation 89.2 L (94-97) % Sodium (137-145) mmol/L Potassium (3.5-5.1) mmol/L Chloride (98-107) mmol/L Carbon Dioxide (22-30) mmol/L BUN (7-17) mg/dL Creatinine (0.52-1.04) mg/dL Glucose (74-99) mg/dL POC Glucose (mg/dL) (70-110) mg/dL
--- NOTE | 2024-01-15 14:45 | P.PN ---
Subjective Progress Note Date: 01/15/24 H&P Date: 01/10/24 Chief Complaint: Dyspnea, positive COVID This is a 73-year-old female from [facility] subacute rehab readmitted with acute on chronic exacerbation of CHF, acute COVID infection, persistent atrial fibrillation, pulmonary hypertension, morbid obesity and multiple other medical issues. Recently discharged on January 02, 2024, secondary to CHF. Reports over the last few days has been waking up during her sleep with increased shortness of breath, unable to lay flat, nonproductive cough.Tested positive for COVID. Denies chest pain, palpitations. Maintaining O2 sats in the high 90s on 3 to 4 L nasal Cannula. IV push diuretics initiated in the ER. 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 Probable mild to moderate congestive edema and atelectasis with trace effusion, findings slightly increased compared to prior exam.proBNP 11,500 .afebrile ,WBC 6.0. Hemoglobin 12.4, Platelets 221. Sodium 134,Potassium 4.0, BUN 32,Creatinine 1.39. 01/13/2024 maintained on Lasix drip, maintaining O2 sats in the 90s on 4-1/2 L of nasal cannula O2. Reports rough night last night, due to her shortness of breath. Eliquis on hold for potential left-sided thoracentesis. Telemetry atrial fibrillation with heart rates in the low 100s to 110. nephrology consult in place, recommendations pending abdomen/bladder ultrasound pending. 01/14/2024 maintained on Lasix drip, diuresing well with 25-hour I&O reflecting a negative fluid balance. Creatinine-BMP pending. reports rough night, experienced a panic attack received additional dose of Xanax. During the panic attack, oxygen increased up to 5 L, maintaining O2 sats of 98% - can be titrated back down. denies chest pain, palpitations or increased shortness of breath. UA positive for UTI, positive nitrates, large leukocytes, moderate WBC clumps many bacteria, urine WBC 117, urine culture ordered. 01/15/2024 hypoglycemic, received D50 with D10 drip initiated,blood sugars currently in the low 100s. Poor appetite, staff attempting to encourage diet intake. Patient on 3 L nasal cannula maintaining O2 sats in the 90s, pulling off her oxygen at times and desatting into the low 80s. Lasix drip decreased to 5 mg per cardiology, renal function worsening, BUN 47, creatinine 2.57, bicarb 16. Developed lethargy ,a-teamed, transferred to ICU . Objective - Vital Signs Vital signs: Vital Signs Temp 97.7 F 01/15/24 12:00 Pulse 110 H 01/15/24 12:00 Resp 25 H 01/15/24 12:00 BP 98/68 01/15/24 12:00 Pulse Ox 99 01/15/24 12:00 FiO2 60 01/15/24 12:04 Intake & Output 01/14/24 01/15/24 01/15/24 18:59 06:59 18:59 Intake Total 100 85.5 100 Output Total 450 Balance 100 -364.5 100 Weight 124 kg Intake: Intake, IV Titration 100 85.5 100 Amount Furosemide 100 mg In 100 85.5 100 Sodium Chloride 0.9% 90 ml @ 10 MG/HR 10 mls/hr IV .Q10H [facility] Rx#: [id number] Oral 0 Output: Urine 450 Other: Voiding Method Indwelling Catheter Indwelling Catheter # Bowel Movements 2 - Exam PHYSICAL EXAM: VITAL SIGNS: [As above] GENERAL: Alert, lethargic sitting up in bed. Wearing nonrebreather HEENT: Normocephalic, Conjunctivae normal.MMM. NECK: Supple, No JVD. CARDIOVASCULAR: S1, S2 normal. irregular rhythm. Tachycardic-mild, systolic murmur. RESPIRATION: Lungs diminished with scattered rhonchi, fine bibasilar crackles ABDOMEN: Soft, nondistended, nontender. +BS. LEGS: chronic bilateral lower extremity edema. NERVOUS SYSTEM: Limited, alert, extremely tired and lethargic Skin: Extremities cool, lower extremity mottling - Labs CBC & Chem 7: 01/11/24 05:28 01/15/24 10:56 Labs: Abnormal Lab Results - Last 24 Hours (Table) 01/15/24 01/15/24 01/15/24 Range/Units 09:17 09:48 10:42 ABG pH (7.35-7.45) ABG pCO2 (35-45) mmHg ABG pO2 (83-108) mmHg ABG HCO3 (21-25) mmol/L ABG Total CO2 (19-24) mmol/L ABG O2 Saturation (94-97) % Sodium 136 L (137-145) mmol/L Potassium 5.6 H (3.5-5.1) mmol/L Chloride 96 L (98-107) mmol/L Carbon Dioxide 16 L (22-30) mmol/L BUN 47 H (7-17) mg/dL Creatinine 2.57 H (0.52-1.04) mg/dL Glucose <20 L* (74-99) mg/dL POC Glucose (mg/dL) <20 L 55 L (70-110) mg/dL 01/15/24 01/15/24 01/15/24 Range/Units 10:56 11:06 11:35 ABG pH 7.27 L (7.35-7.45) ABG pCO2 34 L (35-45) mmHg ABG pO2 68 L (83-108) mmHg ABG HCO3 15 L (21-25) mmol/L ABG Total CO2 17 L (19-24) mmol/L ABG O2 Saturation 89.2 L (94-97) % Sodium (137-145) mmol/L Potassium (3.5-5.1) mmol/L Chloride (98-107) mmol/L Carbon Dioxide (22-30) mmol/L BUN (7-17) mg/dL Creatinine (0.52-1.04) mg/dL Glucose 124 H (74-99) mg/dL POC Glucose (mg/dL) 125 H (70-110) mg/dL Assessment and Plan Assessment: Acute on chronic CHF exacerbation, mildly reduced EF ,diastolic dysfunction, EF 45-50 %. Severe biatrial enlargement, left greater than right, severe central mitral regurgitation. Acute COVID 19 infection Acute UTI, culture ordered Acute on chronic hypoxic respiratory failure secondary to the above History of pleural effusions with previous thoracentesis and September 2023, transudate, negative for malignancy Chronic renal failure stage IIIa Chronic Atrial fibrillation with rapid ventricular rate, status post RICO and cardioversion,11/16 reporting severe MR History of Bilateral pleural effusions status post bilateral thoracentesis,transudative;Cytology negative for malignancy Pulmonary embolism bilaterally status post EKOS, 03/14/2022 Pulmonary hypertension Moderate mitral and tricuspid regurgitation Hypothyroidism, levothyroxine dose recently increased on last admission Hypertension, Hyperlipidemia Osteoarthritis with history right knee placement in July 2022. Morbid obesity, BMI 45 Anxiety No code, no CPR, no intubation Plan: Continue on current medication regimen ,monitoring and symptomatic treatment. Per discussion at bedside with and patient, CODE STATUS changed to no code, no CPR, no intubation. Will evaluate further tomorrow for hospice- will discuss tonight with family. Gilda franks. Prognosis guarded given multiple complex medical issues. The impression and plan of care has been dictated as directed. : I performed a history and examination of this patient, discussed the same with the dictator. I agree with the dictator's note ,documented as a scribe. Any additional findings or plans will be noted.
[2024-01-15] MEDS: SODIUM CHLORIDE 0.9% 500 ML 500 ML IV ONE ×2 (14:52→22:42)
[2024-01-15 15:01] LABS: Glucose,Whole Blood 69 mg/dL (70-110)
--- NOTE | 2024-01-15 16:34 | P.PN ---
Subjective Patient is seen for follow-up for acute kidney injury and volume overload. Patient has been maintained on Lasix drip which was decreased this morning to 5 mg an hour. Patient was noted to be less responsive and blood sugar was significantly low at less than 20. Currently receiving 1 amp of D50. Urine output documented at 1925 mL for 24 hours. Serum creatinine has increased to 2.5 mg/dL. Patient is maintained on midodrine for hypotension. Started on antibiotics yesterday for UTI Objective - Vital Signs Vital signs: Vital Signs Temp 97.7 F 01/15/24 12:00 Pulse 121 H 01/15/24 15:00 Resp 19 01/15/24 15:00 BP 122/78 01/15/24 15:00 Pulse Ox 100 01/15/24 15:00 FiO2 60 01/15/24 15:00 Intake & Output 01/14/24 01/15/24 01/15/24 18:59 06:59 18:59 Intake Total 100 85.5 750 Output Total 450 0 Balance 100 -364.5 750 Weight 124 kg Intake: Intake, IV Titration 100 85.5 750 Amount Dextrose 10% in Water 1, 150 000 ml @ 50 mls/hr IV . Q20H [facility] Rx#:[id number] Furosemide 100 mg In 100 85.5 100 Sodium Chloride 0.9% 90 ml @ 5 MG/HR 5 mls/hr IV .Q20H [facility] Rx#:[id number] Sodium Chloride 0.9% 500 500 ml 500 ml @ 999 mls/hr IV .Q31M [facility] Rx#:[id number] Oral 0 Output: Urine 450 0 Other: Voiding Method Indwelling Catheter Indwelling Catheter Indwelling Catheter # Bowel Movements 2 - Exam Patient is awake, lethargic. No acute distress. Patient is currently receiving IV push D50 Abdomen is obese, soft nontender Examination of lower extremities shows significant edema about 3+ bilaterally VICE CHANCELLOR exam grossly intact - Labs CBC & Chem 7: 01/11/24 05:28 01/15/24 10:56 Labs: Abnormal Lab Results - Last 24 Hours (Table) 01/15/24 01/15/24 01/15/24 Range/Units 09:17 09:48 10:42 ABG pH (7.35-7.45) ABG pCO2 (35-45) mmHg ABG pO2 (83-108) mmHg ABG HCO3 (21-25) mmol/L ABG Total CO2 (19-24) mmol/L ABG O2 Saturation (94-97) % Sodium 136 L (137-145) mmol/L Potassium 5.6 H (3.5-5.1) mmol/L Chloride 96 L (98-107) mmol/L Carbon Dioxide 16 L (22-30) mmol/L BUN 47 H (7-17) mg/dL Creatinine 2.57 H (0.52-1.04) mg/dL Glucose <20 L* (74-99) mg/dL POC Glucose (mg/dL) <20 L 55 L (70-110) mg/dL 01/15/24 01/15/24 01/15/24 Range/Units 10:56 11:06 11:35 ABG pH 7.27 L (7.35-7.45) ABG pCO2 34 L (35-45) mmHg ABG pO2 68 L (83-108) mmHg ABG HCO3 15 L (21-25) mmol/L ABG Total CO2 17 L (19-24) mmol/L ABG O2 Saturation 89.2 L (94-97) % Sodium (137-145) mmol/L Potassium (3.5-5.1) mmol/L Chloride (98-107) mmol/L Carbon Dioxide (22-30) mmol/L BUN (7-17) mg/dL Creatinine (0.52-1.04) mg/dL Glucose 124 H (74-99) mg/dL POC Glucose (mg/dL) 125 H (70-110) mg/dL 01/15/24 Range/Units 14:59 ABG pH (7.35-7.45) ABG pCO2 (35-45) mmHg ABG pO2 (83-108) mmHg ABG HCO3 (21-25) mmol/L ABG Total CO2 (19-24) mmol/L ABG O2 Saturation (94-97) % Sodium (137-145) mmol/L Potassium (3.5-5.1) mmol/L Chloride (98-107) mmol/L Carbon Dioxide (22-30) mmol/L BUN (7-17) mg/dL Creatinine (0.52-1.04) mg/dL Glucose (74-99) mg/dL POC Glucose (mg/dL) 69 L (70-110) mg/dL Assessment and Plan Assessment: 1. Acute kidney injury, nonoliguric ATN secondary to hypotension. Renal function has worsened. Ejection fraction 45-50%. Maintained on Lasix drip. Ultrasound of the kidneys shows no evidence of hydronephrosis. UA shows trace protein large blood and WBCs 117 2. Severe volume overload 3. A. fib with RVR maintained on metoprolol and maintained on midodrine due to significant hypotension. 4. Acute hypoxic respiratory failure secondary to volume overload and CHF exacerbation. 5. Covid infection with chest x-ray showing mostly congestive heart failure changes. 6. Pyuria rule out UTI. Maintained on antibiotics. 7. Hypoglycemia possibly related to underlying infection and decreased oral intake 8. Anion gap metabolic acidosis associated with acute kidney injury and most likely lactic acidosis. Plan: Hold Lasix drip Add IV bicarb Continue with antibiotics Continue with midodrine Check urine culture Avoid nephrotoxic agents.
[2024-01-15 16:58] LABS: Glucose,Whole Blood 77 mg/dL (70-110)
[2024-01-15] MEDS: DEXTROSE 5% IN WATER 1,000 ML with SODIUM BICARB (1 MEQ/ML) 150 ML IV SCH (17:46)
[2024-01-15] MEDS: MORPHINE SULFATE 2 MG/ML SYRINGE IVP PRN (17:46)
[2024-01-15] MEDS: ONDANSETRON 4 MG/2 ML VIAL IVP PRN (17:46)
[2024-01-15] MEDS: SODIUM CHLORIDE 0.9% 1,000 ML IV ONE (19:46)
[2024-01-15 19:54] LABS: Glucose,Whole Blood 81 mg/dL (70-110)
[2024-01-16 00:03] LABS: Glucose,Whole Blood 94 mg/dL (70-110)
[2024-01-16] MEDS: SODIUM CHLORIDE 0.9% 500 ML 500 ML IV ONE (02:19)
[2024-01-16] MEDS: NOREPINEPHRINE 4 MG in SODIUM CHLORIDE 0.9% 250 ML IV SCH (02:25)
[2024-01-16 04:10] LABS: Glucose,Whole Blood 101 mg/dL (70-110)
[2024-01-16 04:22] VITALS: TEMP 97
[2024-01-16 05:45] LABS: Anisocytosis Slight; HCT 45.1 % (34.0-46.0); Hypochromasia Marked; MCH 37.9 pg (25.0-35.0); MCHC 34.4 g/dL (31.0-37.0); Macrocytosis Marked; RDW 18.7 % (11.5-15.5)
[2024-01-16 05:51] LABS: African American GFR (CKD) 18 (>60 ml/min/1.73 sqM); Anion Gap 28 mmol/L; Blood Urea Nitrogen 47 mg/dL (7-17); Calcium 8.6 mg/dL (8.4-10.2); Chloride 98 mmol/L (98-107); Glucose 71 mg/dL (74-99); Non-African American GFR(CKD) 16 (>60 ml/min/1.73 sqM); Potassium 5.8 mmol/L (3.5-5.1); Sodium 135 mmol/L (137-145)
[2024-01-16 05:53] LABS: Carbon Dioxide 9 mmol/L (22-30)
[2024-01-16 05:54] LABS: HGB 15.5 gm/dL (11.4-16.0); MCV 110.1 fL (80.0-100.0); Platelet Count 466 k/uL (150-450)
[2024-01-16] MEDS: DEXTROSE 5% IN WATER 1,000 ML with SODIUM BICARB (1 MEQ/ML) 150 ML IV SCH (06:19)
[2024-01-16] MEDS: SODIUM BICARB 8.4% 50 ML SYR (1 MEQ/ML) IV STA (06:19)
[2024-01-16 06:26] LABS: Lymphocytes # (M) 2.28 k/uL (1.0-4.8); Monocytes # (M) 0.91 k/uL (0-1.0); Neutrophils # (M) 19.61 k/uL (1.3-7.7); Neutrophils % (M) 86 %; Nucleated Red Blood Cells 1 /100 WBC (0-0); Total Cells Counted 100; WBC 22.8 k/uL (3.8-10.6)
[2024-01-16 06:27] LABS: Anisocytosis (M) Present; Polychromasia Present
--- NOTE | 2024-01-16 08:24 | XR ---
EXAMINATION TYPE: XR chest 1V portable DATE OF EXAM: 01/16/2024 COMPARISON: 01/15/2024 HISTORY: Shortness of breath TECHNIQUE: Single frontal view of the chest is obtained. FINDINGS: Limited inspiration with bilateral consolidation and small effusion. Heart size is stable. Atherosclerotic change of the aorta. Sizable pneumothorax. Hypertrophic and degenerative change of t he spine. Bilateral significant shoulder arthropathy with spurring along the inferior margin of the h umeral head. Surgical clips right upper quadrant. Pulmonary arteries prominent may be associated with pulmonary arterial hypertension. Underlying adenopathy not excluded. IMPRESSION: Stable bilateral infiltrate and pleural effusion.
--- NOTE | 2024-01-16 09:36 | P.PN ---
Subjective Progress Note Date: 01/16/24 The patient is a 73-year-old female who follows in the office with Dr. Sylvester. She presented to the hospital with worsening shortness of breath. She was found to be COVID-positive as well as being in A-fib with elevated heart rates. Throughout the course of her admission she has been treated for heart failure exacerbation and was placed on a Lasix drip. Kidney function has unfortunately worsened and she has developed hypoglycemia. She became unresponsive and was transferred to the ICU. GENERAL: Ill-appearing, well-nourished and in moderate respiratory distress. Currently on BiPAP. NECK: Supple without JVD or thyromegaly. LUNGS: Breath sounds coarse to auscultation bilaterally. Respiration equal and labored. Rhonchi throughout. HEART: Irregular rate and rhythm. Systolic murmur. No rubs or gallops. S1 and S2 heard. EXTREMITIES: Normal range of motion, moderate edema. No clubbing or cyanosis. Peripheral pulses intact and strong. TELEMETRY: Atrial fibrillation. Heart rates in the low 100s. LABS: WBC 22.8, hemoglobin 15.5, hematocrit 45.1, platelet 466, sodium 135, potassium 5.8, BUN 47, creatinine 2.85 IMPRESSION: Shortness of breath Acute COVID-19 infection Diastolic heart failure exacerbation, mildly reduced EF at 50% Persistent atrial fibrillation Severe mitral regurgitation Acute kidney injury PLAN: Continue supportive treatment Poor prognosis with patient's multiple comorbid conditions Further recommendations be based upon clinical course I am dictating on behalf of Dr Jani Ayala's history/physical and assessment/plan. Objective - Vital Signs Vital signs: Vital Signs Temp 97.0 F L 01/16/24 04:00 Pulse 101 H 01/16/24 08:45 Resp 10 L 01/16/24 08:45 BP 96/67 01/16/24 08:45 Pulse Ox 98 01/16/24 08:45 FiO2 50 01/16/24 08:38 Intake & Output 01/15/24 01/16/24 01/16/24 18:59 06:59 18:59 Intake Total 1020 3518.741 175 Output Total 0 2 0 Balance 1020 3516.741 175 Weight 128 kg Intake: IV 3375 175 Dextrose 10% in Water 1, 550 50 000 ml @ 50 mls/hr IV . Q20H [facility] Rx#:[id number] Dextrose 5% in Water 1, 125 000 ml @ 125 mls/hr IV . Q9H12M ANNA with Sodium Bicarb (1 Meq/ml) 150 ml Rx#:[id number] Dextrose 5% in Water 1, 825 000 ml @ 75 mls/hr IV . [id number] ANNA with Sodium Bicarb (1 Meq/ml) 150 ml Rx#:[id number] Sodium Chloride 0.9% 1, 2000 000 ml @ 999 mls/hr IV . Q1H1M [facility] Rx#:[id number] Intake, IV Titration 900 143.741 Amount Dextrose 10% in Water 1, 300 50 000 ml @ 50 mls/hr IV . Q20H [facility] Rx#:[id number] Dextrose 5% in Water 1, 75 000 ml @ 75 mls/hr IV . [id number] [facility]NA with Sodium Bicarb (1 Meq/ml) 150 ml Rx#:[id number] Furosemide 100 mg In 100 Sodium Chloride 0.9% 90 ml @ 5 MG/HR 5 mls/hr IV .Q20H [facility] Rx#:[id number] Norepinephrine 4 mg In 18.741 Sodium Chloride 0.9% 250 ml @ 0.03 MCG/KG/MIN 14. 173 mls/hr IV .[id number] [facility] Rx#:[id number] Sodium Chloride 0.9% 500 500 ml 500 ml @ 999 mls/hr IV .Q31M ONE Rx#:[id number] Oral 120 Output: Urine 0 2 0 Other: Voiding Method Indwelling Catheter Indwelling Catheter Indwelling Catheter - Labs CBC & Chem 7: 01/16/24 05:26 01/16/24 05:26 Labs: Abnormal Lab Results - Last 24 Hours (Table) 01/15/24 01/15/24 01/15/24 Range/Units 09:17 09:48 10:42 WBC (3.8-10.6) k/uL MCV (80.0-100.0) fL MCH (25.0-35.0) pg RDW (11.5-15.5) % Plt Count (150-450) k/uL Neutrophils # (Manual) (1.3-7.7) k/uL Nucleated RBCs (0-0) /100 WBC Macrocytosis ABG pH (7.35-7.45) ABG pCO2 (35-45) mmHg ABG pO2 (83-108) mmHg ABG HCO3 (21-25) mmol/L ABG Total CO2 (19-24) mmol/L ABG O2 Saturation (94-97) % Sodium 136 L (137-145) mmol/L Potassium 5.6 H (3.5-5.1) mmol/L Chloride 96 L (98-107) mmol/L Carbon Dioxide 16 L (22-30) mmol/L BUN 47 H (7-17) mg/dL Creatinine 2.57 H (0.52-1.04) mg/dL Glucose <20 L* (74-99) mg/dL POC Glucose (mg/dL) <20 L 55 L (70-110) mg/dL Plasma Lactic Acid Gabino (0.7-2.0) mmol/L 01/15/24 01/15/24 01/15/24 Range/Units 10:56 11:06 11:35 WBC (3.8-10.6) k/uL MCV (80.0-100.0) fL MCH (25.0-35.0) pg RDW (11.5-15.5) % Plt Count (150-450) k/uL Neutrophils # (Manual) (1.3-7.7) k/uL Nucleated RBCs (0-0) /100 WBC Macrocytosis ABG pH 7.27 L (7.35-7.45) ABG pCO2 34 L (35-45) mmHg ABG pO2 68 L (83-108) mmHg ABG HCO3 15 L (21-25) mmol/L ABG Total CO2 17 L (19-24) mmol/L ABG O2 Saturation 89.2 L (94-97) % Sodium (137-145) mmol/L Potassium (3.5-5.1) mmol/L Chloride (98-107) mmol/L Carbon Dioxide (22-30) mmol/L BUN (7-17) mg/dL Creatinine (0.52-1.04) mg/dL Glucose 124 H (74-99) mg/dL POC Glucose (mg/dL) 125 H (70-110) mg/dL Plasma Lactic Acid Gabino (0.7-2.0) mmol/L 01/15/24 01/15/24 01/15/24 Range/Units 14:59 16:47 20:09 WBC (3.8-10.6) k/uL MCV (80.0-100.0) fL MCH (25.0-35.0) pg RDW (11.5-15.5) % Plt Count (150-450) k/uL Neutrophils # (Manual) (1.3-7.7) k/uL Nucleated RBCs (0-0) /100 WBC Macrocytosis ABG pH (7.35-7.45) ABG pCO2 (35-45) mmHg ABG pO2 (83-108) mmHg ABG HCO3 (21-25) mmol/L ABG Total CO2 (19-24) mmol/L ABG O2 Saturation (94-97) % Sodium (137-145) mmol/L Potassium (3.5-5.1) mmol/L Chloride (98-107) mmol/L Carbon Dioxide (22-30) mmol/L BUN (7-17) mg/dL Creatinine (0.52-1.04) mg/dL Glucose (74-99) mg/dL POC Glucose (mg/dL) 69 L (70-110) mg/dL Plasma Lactic Acid Gabino 11.1 H* 14.8 H* (0.7-2.0) mmol/L 01/16/24 01/16/24 01/16/24 Range/Units 00:44 05:26 05:26 WBC 22.8 H (3.8-10.6) k/uL MCV 110.1 H D (80.0-100.0) fL MCH 37.9 H (25.0-35.0) pg RDW 18.7 H (11.5-15.5) % Plt Count 466 H D (150-450) k/uL Neutrophils # (Manual) 19.61 H (1.3-7.7) k/uL Nucleated RBCs 1 H (0-0) /100 WBC Macrocytosis Marked A ABG pH (7.35-7.45) ABG pCO2 (35-45) mmHg ABG pO2 (83-108) mmHg ABG HCO3 (21-25) mmol/L ABG Total CO2 (19-24) mmol/L ABG O2 Saturation (94-97) % Sodium 135 L (137-145) mmol/L Potassium 5.8 H (3.5-5.1) mmol/L Chloride (98-107) mmol/L Carbon Dioxide 9 L* (22-30) mmol/L BUN 47 H (7-17) mg/dL Creatinine 2.85 H (0.52-1.04) mg/dL Glucose 71 L (74-99) mg/dL POC Glucose (mg/dL) (70-110) mg/dL Plasma Lactic Acid Gabino 14.8 H* (0.7-2.0) mmol/L 01/16/24 01/16/24 Range/Units 05:26 08:27 WBC (3.8-10.6) k/uL MCV (80.0-100.0) fL MCH (25.0-35.0) pg RDW (11.5-15.5) % Plt Count (150-450) k/uL Neutrophils # (Manual) (1.3-7.7) k/uL Nucleated RBCs (0-0) /100 WBC Macrocytosis ABG pH (7.35-7.45) ABG pCO2 (35-45) mmHg ABG pO2 (83-108) mmHg ABG HCO3 (21-25) mmol/L ABG Total CO2 (19-24) mmol/L ABG O2 Saturation (94-97) % Sodium (137-145) mmol/L Potassium (3.5-5.1) mmol/L Chloride (98-107) mmol/L Carbon Dioxide (22-30) mmol/L BUN (7-17) mg/dL Creatinine (0.52-1.04) mg/dL Glucose (74-99) mg/dL POC Glucose (mg/dL) (70-110) mg/dL Plasma Lactic Acid Gabino 15.0 H* 13.3 H* (0.7-2.0) mmol/L
[2024-01-16 10:36] VITALS: BP 83/57; PULSE 120; RESP 9
--- NOTE | 2024-01-16 11:17 | P.PN ---
Subjective Progress Note Date: 01/16/24 Principal diagnosis: Congestive heart failure. Acute on chronic hypoxic respiratory failure secondary to acute exacerbation of diastolic congestive heart failure This is a 73-year-old female patient with a known history of atrial fibrillation, pulmonary embolism, hypertension, hype per lipidemia, hypothyroidism, congestive heart failure, chronic kidney disease stage III, ple ural effusions with previous thoracentesis, osteoarthritis. She was recently discharged on January 02, 2024 following a diastolic CHF exacerbation. She presented here to the emergency room early this morning from [facility] with a 3-day history of paroxysmal nocturnal dyspnea, dry cough and shortness of breath. She also had lower extremity edema. 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 Mild to moderate congestive heart failure and atelectasis with trace effusions. Stable compared to previous chest x-ray on December 29, 2023. White count 6.0. Hemoglobin 12.4. Platelets 221. Sodium 134. Potassium 4.0. Bicarb 32. BUN 32. Creatinine 1.39. Glucose 90. Troponins negative x 3. proBNP 11,500. She did test positive for COVID-19 infection. She is seen today in the emergency department. She is sitting up on the stretcher. Awake and alert in no acute distress. She is maintaining O2 saturations in the 90s on 3 L/min per nasal cannula. She has been initiated on IV diuretics. She is anticoagulated with Eliquis. Patient was seen and evaluated today on 01/11/2024, patient is on 3 L nasal cannula, O2 saturation 96%, continues to have shortness of breath, quite dyspneic since 4:00 this morning, blood pressure is marginal, patient is lopez pposed to go on Lasix drip today, her chest x-ray on admission clearly showed evidence of pulmonary edema. Urine output in the last 24 hours has been about 700 cc. Patient is also developing atrial fibrillation with RVR, and that is being addressed by cardiology on the case.WBC count is 6.08 hemoglobin 11.9 electrolytes are normal BUN is 29 creatinine 1.5 Patient was reevaluated today on 01/12/2024, on 4 L nasal cannula, O2 saturation 98%, however the patient seems to be quite short of breath patient is not making a significant amount of urine in spite of being on Lasix drip, her renal profile is basically about the same creatinine is 1.52, it was 1.5 yesterday have WBC count is 6.0 hemoglobin 11.9. Platelets are 241k Progress note dated January 13, 2024. This is a 73-year-old female seen today room 359. The patient is currently on 4-1/2 L of oxygen. Saturations are 98%. She is receiving a Lasix drip at 10 mg an hour. She is not receiving any IV fluids. She is sitting upright in her bed. She appears not to have any respiratory distress or difficulty. There is no audible wheezing. Labs today include a sodium 135, potassium 4.3, chlorides 97, CO2 30, anion gap 8, BUN 40, creatinine 1.50. Calcium is 8.8. Glucose is 88. Ultrasound of the chest shows a pleural fluid pocket on the right side, a 5 cm, and on the left side, 8.9 cm. Progress note dated January 14, 2024. This is a 73-year-old female seen today in room 359. She is lying in bed. The patient is currently on oxygen, at 3.5 L. She is not receiving any IV fluids. She continues on a Lasix drip at 10 mg an hour. She looks relatively comfortable. No new labs today other than a glucose of 84. She appears not to have any respiratory distress or difficulty. Progress note dated January 15, 2024. 73-year-old female seen today in room 359. The patient was apparently found to be a bit lethargic this morning. Her glucose when tested, was low, and was not able to be actually evaluated. The patient was given D50. Currently, the patient is on 3 L of oxygen, but her oxygen was off, when the nurses came to evaluate her, her saturations were in the 80s. They placed a nonrebreather on her. She is getting Rocephin IV, and Lasix 5 mg an hour. We started her on D10 W, at 50 cc an hour for her hypoglycemia. We have asked the primary service to address CODE STATUS. Laboratory data today includes a sodium 136, potassium 5.6, chloride 96, CO2 16, anion gap 24, BUN 47, creatinine 2.57. The patient's glucose initially was less than 20. Repeat glucose was 106. Progress note dated January 16, 2024. This is a 73-year-old female seen today in room 267. The patient was transferred to the intensive care unit yesterday, because of lethargy, hypoglycemia, and worsening respiratory status. The patient was made a DO NOT RESUSCITATE. She is seen today in room 267. She is currently on BiPAP, with settings of 14/7, and 50%. She is on a sodium bicarbonate drip with 3 ampoules of sodium bicarb in D5W at 125 cc an hour. The patient is also getting D10W, at 50 cc an hour. The patient is on norepinephrine at 2.5 mcg/min. The patient will apparently have a hospice evaluation, later today. Current labs include a white count 22.8, hemoglobin 15.5, hematocrit 45.1, and platelet count 466,000. Sodium 135, potassium 5.8, chlorides 98, CO2 9, BUN 47, creatinine 2.85. Lactic acid was 15, repeat was 13.3. Calcium 8.6. Chest x-ray shows stable bilateral infiltrates. Objective - Vital Signs Vital signs: Vital Signs Temp 97.0 F L 01/16/24 04:00 Pulse 120 H 01/16/24 10:15 Resp 9 L 01/16/24 10:15 BP 83/57 01/16/24 10:15 Pulse Ox 99 01/16/24 10:15 FiO2 50 01/16/24 08:38 Intake & Output 01/15/24 01/16/24 01/16/24 18:59 06:59 18:59 Intake Total 1020 3518.741 700 Output Total 0 2 20 Balance 1020 3516.741 680 Weight 128 kg Intake: IV 3375 700 Dextrose 10% in Water 1, 550 200 000 ml @ 50 mls/hr IV . Q20H [facility] Rx#:[id number] Dextrose 5% in Water 1, 500 000 ml @ 125 mls/hr IV . Q9H12M [facility] with Sodium Bicarb (1 Meq/ml) 150 ml Rx#:[id number] Dextrose 5% in Water 1, 825 000 ml @ 75 mls/hr IV . [id number] [facility] with Sodium Bicarb (1 Meq/ml) 150 ml Rx#:[id number] Sodium Chloride 0.9% 1, 2000 000 ml @ 999 mls/hr IV . Q1H1M [facility] Rx#:[id number] Intake, IV Titration 900 143.741 Amount Dextrose 10% in Water 1, 300 50 000 ml @ 50 mls/hr IV . Q20H [facility] Rx#:[id number] Dextrose 5% in Water 1, 75 000 ml @ 75 mls/hr IV . [id number] [facility] with Sodium Bicarb (1 Meq/ml) 150 ml Rx#:[id number] Furosemide 100 mg In 100 Sodium Chloride 0.9% 90 ml @ 5 MG/HR 5 mls/hr IV .Q20H [facility] Rx#:[id number] Norepinephrine 4 mg In 18.741 Sodium Chloride 0.9% 250 ml @ 0.03 MCG/KG/MIN 14. 173 mls/hr IV .[id number] [facility] Rx#:[id number] Sodium Chloride 0.9% 500 500 ml 500 ml @ 999 mls/hr IV .Q31M [facility] Rx#:[id number] Oral 120 Output: Urine 0 2 20 Other: Voiding Method Indwelling Catheter Indwelling Catheter Indwelling Catheter - Exam No acute distress, lethargic. No respiratory distress. Currently on BiPAP. HEENT examination is grossly unremarkable. Mucous membranes are moist. No oral lesions. Neck supple. Full range of motion. No adenopathy thyromegaly or neck vein distention. Cardiovascular examination reveals regular rhythm rate. S1-S2 normal. No S3 or S4. No discernible murmur noted. Heart rate 120 bpm. Lungs reveal diminished bibasilar breath sounds. Mostly clear breath sounds. Minimal rhonchi. No crackles. No wheezes. Saturations are 99% on BiPAP. Abdomen soft bowel sounds are heard. No masses or tenderness. Extremities are intact. No cyanosis or clubbing. Edema is noted. Skin is without rash or lesion. Neurologic examination reveals the patient to be lethargic. - Labs CBC & Chem 7: 01/16/24 05:26 01/16/24 05:26 Labs: Abnormal Lab Results - Last 24 Hours (Table) 01/15/24 01/15/24 01/15/24 Range/Units 10:56 11:06 11:35 WBC (3.8-10.6) k/uL MCV (80.0-100.0) fL MCH (25.0-35.0) pg RDW (11.5-15.5) % Plt Count (150-450) k/uL Neutrophils # (Manual) (1.3-7.7) k/uL Nucleated RBCs (0-0) /100 WBC Macrocytosis ABG pH 7.27 L (7.35-7.45) ABG pCO2 34 L (35-45) mmHg ABG pO2 68 L (83-108) mmHg ABG HCO3 15 L (21-25) mmol/L ABG Total CO2 17 L (19-24) mmol/L ABG O2 Saturation 89.2 L (94-97) % Sodium (137-145) mmol/L Potassium (3.5-5.1) mmol/L Carbon Dioxide (22-30) mmol/L BUN (7-17) mg/dL Creatinine (0.52-1.04) mg/dL Glucose 124 H (74-99) mg/dL POC Glucose (mg/dL) 125 H (70-110) mg/dL Plasma Lactic Acid Gabino (0.7-2.0) mmol/L 01/15/24 01/15/24 01/15/24 Range/Units 14:59 16:47 20:09 WBC (3.8-10.6) k/uL MCV (80.0-100.0) fL MCH (25.0-35.0) pg RDW (11.5-15.5) % Plt Count (150-450) k/uL Neutrophils # (Manual) (1.3-7.7) k/uL Nucleated RBCs (0-0) /100 WBC Macrocytosis ABG pH (7.35-7.45) ABG pCO2 (35-45) mmHg ABG pO2 (83-108) mmHg ABG HCO3 (21-25) mmol/L ABG Total CO2 (19-24) mmol/L ABG O2 Saturation (94-97) % Sodium (137-145) mmol/L Potassium (3.5-5.1) mmol/L Carbon Dioxide (22-30) mmol/L BUN (7-17) mg/dL Creatinine (0.52-1.04) mg/dL Glucose (74-99) mg/dL POC Glucose (mg/dL) 69 L (70-110) mg/dL Plasma Lactic Acid Gabino 11.1 H* 14.8 H* (0.7-2.0) mmol/L 01/16/24 01/16/2401/16/24 Range/Units 00:44 05:26 05:26 WBC 22.8 H (3.8-10.6) k/uL MCV 110.1 H D (80.0-100.0) fL MCH 37.9 H (25.0-35.0) pg RDW 18.7 H (11.5-15.5) % Plt Count 466 H D (150-450) k/uL Neutrophils # (Manual) 19.61 H (1.3-7.7) k/uL Nucleated RBCs 1 H (0-0) /100 WBC Macrocytosis Marked A ABG pH (7.35-7.45) ABG pCO2 (35-45) mmHg ABG pO2 (83-108) mmHg ABG HCO3 (21-25) mmol/L ABG Total CO2 (19-24) mmol/L ABG O2 Saturation (94-97) % Sodium 135 L (137-145) mmol/L Potassium 5.8 H (3.5-5.1) mmol/L Carbon Dioxide 9 L* (22-30) mmol/L BUN 47 H (7-17) mg/dL Creatinine 2.85 H (0.52-1.04) mg/dL Glucose 71 L (74-99) mg/dL POC Glucose (mg/dL) (70-110) mg/dL Plasma Lactic Acid Gabino 14.8 H* (0.7-2.0) mmol/L 01/16/24 01/16/24 Range/Units 05:26 08:27 WBC (3.8-10.6) k/uL MCV (80.0-100.0) fL MCH (25.0-35.0) pg RDW (11.5-15.5) % Plt Count (150-450) k/uL Neutrophils # (Manual) (1.3-7.7) k/uL Nucleated RBCs (0-0) /100 WBC Macrocytosis ABG pH (7.35-7.45) ABG pCO2 (35-45) mmHg ABG pO2 (83-108) mmHg ABG HCO3 (21-25) mmol/L ABG Total CO2 (19-24) mmol/L ABG O2 Saturation (94-97) % Sodium (137-145) mmol/L Potassium (3.5-5.1) mmol/L Carbon Dioxide (22-30) mmol/L BUN (7-17) mg/dL Creatinine (0.52-1.04) mg/dL Glucose (74-99) mg/dL POC Glucose (mg/dL) (70-110) mg/dL Plasma Lactic Acid Gabino 15.0 H* 13.3 H* (0.7-2.0) mmol/L Assessment and Plan Assessment: Acute on chronic hypoxemic respiratory failure, secondary to acute diastolic CHF. Acute COVID-19 infection, without coronavirus associated pneumonia. Chronic atrial fibrillation. Acute on chronic kidney disease, stage III. History of pleural effusion, S/P thoracentesis in September 2023. History of pulmonary embolism. Benign essential hypertension. Hypothyroidism. Degenerative joint disease. Morbid obesity. Plan: Plan dated January 13, 2024. The patient is currently on a Lasix drip, at 10 mg an hour. Her oxygen requirements have come down from 4.5 L, down to 3 L. Her saturations are excellent. For the time being, no thoracentesis. The pocket on the right is relatively small, the pocket on the left, a bit larger. We will continue to follow make recommendations along the way. Prognosis is guarded. No additional recommendations are made. Labs, x-rays, and medications are reviewed. Plan dated January 14, 2024. The patient is seen today in room 359. She is on 3.5 L of oxygen. She is not receiving any IV fluids. She continues on Lasix drip at 10 mg an hour. Labs, x-rays, and medications are reviewed. The patient clinically appears to be relatively stable. She can speak in full sentences. There is no conversational dyspnea or use of accessory muscles. Labs, x-rays, medications are reviewed. We will continue to follow the patient, and make recommendations along the way. Prognosis is guarded. Plan dated January 15, 2024. The nurses noted the room, the patient was not on any nasal O2. Her saturations were in the 80s. They placed her on nonrebreather mask. Also, her glucose was quite low, less than 20, they gave her D50. We started her on a D10W drip at 50 cc an hour. Labs, x-rays, and medications are reviewed. The primary service needs to address the CODE STATUS today, and we have also alerted the nurses to call a rapid response on this patient, should she continue to decline. Her pro gnosis is poor. Will continue to follow make recommendations along the way. No additional recommendations at this time. Plan dated January 16, 2024. The patient's overall respiratory status, and clinical status in general, has declined significantly last 24 hours. The patient was transferred to the intensive care unit. We were able to speak to the family about CODE STATUS, the patient is now a DO NOT RESUSCITATE patient. We think that to be very appropriate. The patient continues on BiPAP, with settings of 14/7, and 50%. She is on a sodium bicarbonate drip, at 125 cc an hour. She is also getting D10W, for hypoglycemia, at 50 cc an hour. The patient continues on norepinephrine at 2.5 mcg/min. The patient will be evaluated by hospice. Additional recommendations and suggestions are forthcoming. Prognosis is very poor. Labs, x-rays, and all medications are reviewed. Time with Patient: Greater than 30
--- NOTE | 2024-01-17 17:14 | P.DS ---
Providers Date of admission: 01/10/24 04:36 Attending physician: Regulo Greene Consults: 01/10/24 04:34 Consult Physician Routine Consulting Provider: [facility] Consult Reason/Comments: chf, chest pain Do you want consulting provider notified?: Yes Consult Physician Routine Consulting Provider: Master Mcgee Consult Reason/Comments: pleural effusion, covid 19 infection Do you want consulting provider notified?: Yes 01/12/24 12:05 Consult Physician Routine Consulting Provider: Stefano Stevenson Consult Reason/Comments: KIAH and CHF Do you want consulting provider notified?: Yes Primary care physician: Regulo Greene [facility] Course: Final Diagnosis Acute on chronic CHF exacerbation,diastolic dysfunction, EF 45-50 %. Acute COVID 19 infection Acute UTI with sepsis Acute on chronic hypoxic respiratory failure secondary to the above History of pleural effusions with previous thoracentesis and September 2023, transudate, negative for malignancy Chronic renal failure stage IIIa Chronic Atrial fibrillation with rapid ventricular rate, status post RICO and cardioversion,11/16 reporting severe MR Pulmonary embolism bilaterally status post EKOS, 03/14/2022 Pulmonary hypertension Moderate mitral and tricuspid regurgitation, severe biatrial enlargement, left greater than right, severe central mitral regurgitation. Hypothyroidism, levothyroxine dose recently increased on last admission Hypertension, Hyperlipidemia Osteoarthritis with history right knee placement in July 2022. Morbid obesity, BMI 45 Anxiety No code, no CPR, no intubation Discharge Disposition Patient being transitioned to [facility] hospice. Hospital Course This is a 73-year-old female from [facility] subacute rehab readmitted with acute on chronic exacerbation of CHF, acute COVID infection, persistent atrial f ibrillation, pulmonary hypertension, morbid obesity and multiple other medical issues. Recently discharged on January 02, 2024, secondary to CHF. Reports over the last few days has been waking up during her sleep with increased shortness of breath, unable to lay flat, nonproductive cough.Tested positive for COVID. Denies chest pain, palpitations. Maintaining O2 sats in the high 90s on 3 to 4 L nasal Cannula. IV push diuretics initiated in the ER. 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 Probable mild to moderate congestive edema and atelectasis with trace effusion, findings slightly increased compared to prior exam.proBNP 11,500 .afebrile ,WBC 6.0. Hemoglobin 12.4, Platelets 221. Sodium 134,Potassium 4.0, BUN 32,Creatinine 1.39. Patient was monitored on the medical floor she was placed on an Lasix drip, she was diuresing well. Patient was requiring increased oxygen support. Found to be positive UTI on January 14 was started on IV antibiotics and urine culture did come back showing negative bacilli. Was significantly hypoglycemic she was started on a D10 drip, patient was pulling off her oxygen mask and desaturating into the 80s, patient had worsening renal function with a BUN of 47 and a creatinine of 2.57. She was transferred to the intensive care unit. She continued to decline. Chest x-ray was done showing stable bilateral infiltrate and pleural effusion. White blood cell count up to 22.8. Sodium 135, potassium 5.8, CO2 9, lactic acid of 15. Family had made decision to make patient hospice she was a DO NOT RESUSCITATE DO NOT INTUBATE. The impression and plan of care has been dictated by Preethi Gamez, Nurse Practitioner as directed. Dr. Bruce MD I have performed a history and physical examination and medical decision making of this patient, discussed the same with the dictator, and agree with the dictators assessment and plan as written, documented as a scribe. Based on total visit time, I have performed more than 50% of this visit. Patient Condition at Discharge: Poor Plan - Discharge Summary Discharge Rx Participant: Yes New Discharge Prescriptions: New Nirmatrelvir/Ritonavir [Paxlovid 150-100 mg Dose Pack] 1 each PO DIRECTED #1 each No Action Magnesium 250 mg PO DAILY@0800 bisacodyL [Dulcolax] 10 mg RECTAL DAILY PRN PRN Reason: Constipation Na Phos,M-B/Na Phos,Di-Ba [Fleet Adult] 133 ml RECTAL DAILY PRN PRN Reason: Constipation Magnesium Hydroxide [Milk of Magnesia Concentrate] 7,200 mg PO DAILY PRN PRN Reason: Constipation Potassium Chloride ER [K-Dur 20] 20 meq PO DAILY@1700 Melatonin 5 mg PO HS@2100 Dapagliflozin Propanediol [Farxiga] 10 mg PO DAILY@0600 Nitroglycerin Sl Tabs [Nitrostat] 0.4 mg SUBLINGUAL Q5M PRN tab PRN Reason: Chest Pain Calcium Carbonate [Tums] 500 mg PO QID PRN tab PRN Reason: Heartburn Midodrine HCl [ProAmatine] 10 mg PO BID@0600,1200 Furosemide [Lasix] 40 mg PO BID@0600,1400 Apixaban [Eliquis] 5 mg PO BID@0800,1700 Albuterol Sulfate [Ventolin HFA] 1 puff INHALATION RT-QID PRN PRN Reason: Shortness Of Breath Ipratropium-Albuterol Nebulize [Duoneb 0.5 mg-3 mg/3 ml Soln] 3 ml INHALATION RT-Q6H@00,06,12,18 Docusate [Colace] 100 mg PO BID@0800,1700 polyethylene glycoL 3350 [Miralax] 17 gm PO DAILY@0800 Lidocaine 5% Patch [Lidoderm 5% Patch] 1 patch TOPICAL DAILY@0800 Nystatin 100,000 Unit/gm Powd [Mycostatin Powder] 1 applic TOPICAL BID@0800,1700 Levothyroxine Sodium [Synthroid] 100 mcg PO DAILY@0630 tab ALPRAZolam [Xanax] 0.25 mg PO BID PRN #6 tab PRN Reason: Anxiety Acetaminophen [Tylenol 8 Hour] 1,300 mg PO Q4H PRN PRN Reason: Fever And/ Or Pain Metoprolol Tartrate [Lopressor] 50 mg PO BID@0800,2100 Spironolactone [Aldactone] 25 mg PO DAILY@0800 Discharge Medication List Apixaban [Eliquis] 5 mg PO BID@0800,1700 09/09/22 [History] Magnesium 250 mg PO DAILY@0800 09/26/23 [History] Albuterol Sulfate [Ventolin HFA] 1 puff INHALATION RT-QID PRN 11/07/23 [History] Dapagliflozin Propanediol [Farxiga] 10 mg PO DAILY@0600 11/07/23 [History] Docusate [Colace] 100 mg PO BID@0800,1700 11/07/23 [History] Ipratropium-Albuterol Nebulize [Duoneb 0.5 mg-3 mg/3 ml Soln] 3 ml INHALATION RT-Q6H@00,06,12,18 11/07/23 [History] Magnesium Hydroxide [Milk of Magnesia Concentrate] 7,200 mg PO DAILY PRN 11/07/23 [History] Melatonin 5 mg PO HS@2100 11/07/23 [History] Na Phos,M-B/Na Phos,Di-Ba [Fleet Adult] 133 ml RECTAL DAILY PRN 11/07/23 [History] Potassium Chloride ER [K-Dur 20] 20 meq PO DAILY@1700 11/07/23 [History] bisacodyL [Dulcolax] 10 mg RECTAL DAILY PRN 11/07/23 [History] polyethylene glycoL 3350 [Miralax] 17 gm PO DAILY@0800 11/07/23 [History] Calcium Carbonate [Tums] 500 mg PO QID PRN tab 11/13/23 [Rx] Nitroglycerin Sl Tabs [Nitrostat] 0.4 mg SUBLINGUAL Q5M PRN tab 11/13/23 [Rx] Lidocaine 5% Patch [Lidoderm 5% Patch] 1 patch TOPICAL DAILY@0800 12/29/23 [History] Midodrine HCl [ProAmatine] 10 mg PO BID@0600,1200 12/29/23 [History] Nystatin 100,000 Unit/gm Powd [Mycostatin Powder] 1 applic TOPICAL BID@0800,1700 12/29/23 [History] ALPRAZolam [Xanax] 0.25 mg PO BID PRN #6 tab 01/02/24 [Rx] Levothyroxine Sodium [Synthroid] 100 mcg PO DAILY@0630 tab 01/02/24 [Rx] Acetaminophen [Tylenol 8 Hour] 1,300 mg PO Q4H PRN 01/10/24 [History] Furosemide [Lasix] 40 mg PO BID@0600,1400 01/10/24 [History] Metoprolol Tartrate [Lopressor] 50 mg PO BID@0800,2100 01/10/24 [History] Spironolactone [Aldactone] 25 mg PO DAILY@0800 01/10/24 [History] Nirmatrelvir/Ritonavir [Paxlovid 150-100 mg Dose Pack] 1 each PO DIRECTED #1 each 01/11/24 [Rx] Follow up Appointment(s)/Referral(s): Regulo Greene DO [Primary Care Provider] - 1-2 days Discharge Disposition: DISCH TO [facility]
== END 2024-01-16 11:21 | disposition hospice, inpatient (51) | DRG 291 ==
LOC: EC 02:40 → 4SSUR 04:36 → 3SCARD 01-11 09:55 → 2SICU 01-15 11:59
PROVIDERS: ADMIT Family Medicine; ATTEND Family Medicine
PROC: 5A09457 Assistance with Respiratory Ventilation, 24-96 Consecutive Hours, Continuous Positive Airway Pressure (ICD-10-PCS; principal; 2024-01-15 17:15)
PROC: 05HD33Z Insertion of Infusion Device into Right Cephalic Vein, Percutaneous Approach (ICD-10-PCS; 2024-01-15 17:15)
DX: I13.0 Hypertensive heart and chronic kidney disease with heart failure and stage 1 through stage 4 chronic kidney disease, or unspecified chronic kidney disease (principal); A41.89 Other specified sepsis; I50.33 Acute on chronic diastolic (congestive) heart failure; N17.0 Acute kidney failure with tubular necrosis; J96.21 Acute and chronic respiratory failure with hypoxia; U07.1 COVID-19; J12.82 Pneumonia due to coronavirus disease 2019; Z68.42 Body mass index [BMI] 45.0-49.9, adult; I48.19 Other persistent atrial fibrillation; E87.20 Acidosis, unspecified; N39.0 Urinary tract infection, site not specified; Z11.52 Encounter for screening for COVID-19; I25.10 Atherosclerotic heart disease of native coronary artery without angina pectoris; I27.20 Pulmonary hypertension, unspecified; E03.9 Hypothyroidism, unspecified; Z79.890 Hormone replacement therapy; E78.5 Hyperlipidemia, unspecified; E66.01 Morbid (severe) obesity due to excess calories; F41.9 Anxiety disorder, unspecified; I08.1 Rheumatic disorders of both mitral and tricuspid valves; M19.90 Unspecified osteoarthritis, unspecified site; N18.31 Chronic kidney disease, stage 3a; Z79.01 Long term (current) use of anticoagulants; Z79.84 Long term (current) use of oral hypoglycemic drugs; Z80.7 Family history of other malignant neoplasms of lymphoid, hematopoietic and related tissues; Z86.711 Personal history of pulmonary embolism; Z79.899 Other long term (current) drug therapy; Z90.710 Acquired absence of both cervix and uterus; Z96.651 Presence of right artificial knee joint; E11.22 Type 2 diabetes mellitus with diabetic chronic kidney disease; E11.649 Type 2 diabetes mellitus with hypoglycemia without coma; F41.0 Panic disorder [episodic paroxysmal anxiety]; J98.6 Disorders of diaphragm; Z96.641 Presence of right artificial hip joint; Z90.49 Acquired absence of other specified parts of digestive tract; Z66 Do not resuscitate; Z88.5 Allergy status to narcotic agent; Z88.0 Allergy status to penicillin
CPT/HCPCS: 36410; 36415; 36600; 51702; 71045; 71046; 76604; 76770; 76937; 80048; 80053; 81001; 82533; 82805; 82947; 83605; 83735; 83880; 84439; 84443; 84484; 85025; 85610; 85730; 87040; 87077; 87086; 87186; 87636; 93005; 93306; 94640; 94660; 94760; 96374; 96375; 96376; 99285

== ENCOUNTER 2024-01-16 10:55 | Inpatient (IN) | payer MEDICAID ==
[2024-01-16] MEDS ORDERED: GLYCOPYRROLATE 0.2 MG/ML 2 ML VIAL IVP PRN (11:09)
[2024-01-16] MEDS ORDERED: ATROPINE OPHTH SOLN 1% 5ML BTL SUBLINGUAL PRN (11:09)
[2024-01-16] MEDS ORDERED: MORPHINE SULFATE 2 MG/ML SYRINGE IV PRN (11:09)
[2024-01-16] MEDS: MORPHINE SULFATE (100 MG/2 ML) 100 MG in SODIUM CHLORIDE 0.9% 100 ML IV SCH (11:37)
[2024-01-16] MEDS: SCOPOLAMINE 1 MG/72 HR PATCH TRANSDERM SCH (11:38)
[2024-01-16] MEDS: LORazepam 2 MG/ML INJ IV PRN (11:45)
[2024-01-16 14:20] VITALS: BMI 46.9
--- NOTE | 2024-01-17 17:17 | P.HPIM ---
History of Present Illness H&P Date: 01/16/24 This is a 73-year-old female from [facility] subacute rehab readmitted with acute on chronic exacerbation of CHF, acute COVID infection, persistent atrial fibrillation, pulmonary hypertension, morbid obesity and multiple other medical issues. Recently discharged on January 02, 2024, secondary to CHF. Reports over the last few days has been waking up during her sleep with increased shortness of breath, unable to lay flat, nonproductive cough.Tested positive for COVID. Denies chest pain, palpitations. Maintaining O2 sats in the high 90s on 3 to 4 L nasal Cannula. IV push diuretics initiated in the ER. 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 Probable mild to moderate congestive edema and atelectasis with trace effusion, findings slightly increased compared to prior exam.proBNP 11,500 .afebrile ,WBC 6.0. Hemoglobin 12.4, Platelets 221. Sodium 134,Potassium 4.0, BUN 32,Creatinine 1.39. Patient was monitored on the medical floor she was placed on an Lasix drip, she was diuresing well. Patient was requiring increased oxygen support. Found to be positive UTI on January 14 was started on IV antibiotics and urine culture did come back showing negative bacilli. Was significantly hypoglycemic she was started on a D10 drip, patient was pulling off her oxygen mask and desaturating into the 80s, patient had worsening renal function with a BUN of 47 and a creatinine of 2.57. She was transferred to the intensive care unit. She continued to decline. Chest x-ray was done showing stable bilateral infiltrate and pleural effusion. White blood cell count up to 22.8. Sodium 135, potassium 5.8, CO2 9, lactic acid of 15. Family had made decision to make patient hospice she was a DO NOT RESUSCITATE DO NOT INTUBATE. Unable to complete a review of systems at this time patient is currently lethargic on BiPAP in the intensive care unit PHYSICAL EXAMINATION: GENERAL: The patient is alert and oriented x1, lethargic. HEENT: Pupils are round and equally reacting to light. EOMI. No scleral icterus. No conjunctival pallor. Normocephalic, atraumatic. No pharyngeal erythema. No thyromegaly. CARDIOVASCULAR: S1 and S2 present. No murmurs, rubs, or gallops. Diminished s cattered ronchi. PULMONARY: Chest is clear to auscultation, no wheezing or crackles. ABDOMEN: Soft, nontender, nondistended, normoactive bowel sounds. No palpable organomegaly. MUSCULOSKELETAL: No joint swelling or deformity. EXTREMITIES: No cyanosis, clubbing, or pedal edema. NEUROLOGICAL: Gross neurological examination did not reveal any focal deficits. Diffuse weakness. SKIN: No rashes. Assessment and Plan Acute on chronic CHF exacerbation,diastolic dysfunction, EF 45-50 %. Acute COVID 19 infection Acute UTI with sepsis Acute kidney injury secondary to ATN/Sepsis and UTI. Acute on chronic hypoxic respiratory failure secondary to the above History of pleural effusions with previous thoracentesis and September 2023, transudate, negative for malignancy Chronic renal failure stage IIIa Chronic Atrial fibrillation with rapid ventricular rate, status post RICO and cardioversion,11/16 reporting severe MR Pulmonary embolism bilaterally status post EKOS, 03/14/2022 Pulmonary hypertension Moderate mitral and tricuspid regurgitation, severe biatrial enlargement, left greater than right, severe central mitral regurgitation. Hypothyroidism, levothyroxine dose recently increased on last admission Hypertension, Hyperlipidemia Osteoarthritis with history right knee placement in July 2022. Morbid obesity, BMI 45 Anxiety No code, no CPR, no intubation Patient is being opened with [facility] hospice. The impression and plan of care has been dictated by Preethi Gamez, Nurse Practitioner as directed. Dr. Bruce MD I have performed a history and physical examination and medical decision making of this patient, discussed the same with the dictator, and agree with the dictators assessment and plan as written, documented as a scribe. Based on total visit time, I have performed more than 50% of this visit. Past Medical History Past Medical History: Atrial Fibrillation, Heart Failure, Hyperlipidemia, Hypertension, Osteoarthritis (OA), Pulmonary Embolus (PE), Thyroid Disorder Additional Past Medical History / Comment(s): PE bilateral with EKOS 02/2022 History of Any Multi-Drug Resistant Organisms: None Reported Past Surgical History: Cholecystectomy, Hysterectomy, Tonsillectomy Additional Past Surgical History / Comment(s): Pt states she had a rt hip replacement 20 years ago, right knee replacement jul 2022 Past Anesthesia/Blood Transfusion Reactions: No Reported Reaction Past Psychological History: No Psychological Hx Reported Smoking Status: Never smoker Past Alcohol Use History: None Reported Past Drug Use History: None Reported - Past Family History Father Family Medical History: AICD/Pacemaker Additional Family Medical History / Comment(s): cabg at 84 Mother Additional Family Medical History / Comment(s): non hodgkins lymphoma Medications and Allergies Home Medications Medication Instructions Recorded Confirmed Type Apixaban [Eliquis] 5 mg PO BID@0800,1700 09/09/22 01/16/24 History Magnesium 250 mg PO DAILY@0800 09/26/23 01/16/24 History Albuterol Sulfate [Ventolin HFA] 1 puff INHALATION RT-QID PRN 11/07/23 01/16/24 History Dapagliflozin Propanediol [Farxiga] 10 mg PO DAILY@0600 11/07/23 01/16/24 History Docusate [Colace] 100 mg PO BID@0800,1700 11/07/23 01/16/24 History Ipratropium-Albuterol Nebulize 3 ml INHALATION RT-Q6H@00,06,12,18 11/07/23 01/16/24 History [Duoneb 0.5 mg-3 mg/3 ml Soln] Magnesium Hydroxide [Milk of 7,200 mg PO DAILY PRN 11/07/23 01/16/24 History Magnesia Concentrate] Melatonin 5 mg PO HS@2100 11/07/23 01/16/24 History Na Phos,M-B/Na Phos,Di-Ba [Fleet 133 ml RECTAL DAILY PRN 11/07/23 01/16/24 History Adult] Potassium Chloride ER [K-Dur 20] 20 meq PO DAILY@1700 11/07/23 01/16/24 History bisacodyL [Dulcolax] 10 mg RECTAL DAILY PRN 11/07/23 01/16/24 History polyethylene glycoL 3350 [Miralax] 17 gm PO DAILY@0800 11/07/23 01/16/24 History Calcium Carbonate [Tums] 500 mg PO QID PRN tab 11/13/23 01/16/24 Rx Nitroglycerin Sl Tabs [Nitrostat] 0.4 mg SUBLINGUAL Q5M PRN tab 11/13/23 01/16/24 Rx Lidocaine 5% Patch [Lidoderm 5% 1 patch TOPICAL DAILY@0800 12/29/23 01/16/24 History Patch] Midodrine HCl [ProAmatine] 10 mg PO BID@0600,1200 12/29/23 01/16/24 History Nystatin 100,000 Unit/gm Powd 1 applic TOPICAL BID@0800,1700 12/29/23 01/16/24 History [Mycostatin Powder] ALPRAZolam [Xanax] 0.25 mg PO BID PRN #6 tab 01/02/24 01/16/24 Rx Levothyroxine Sodium [Synthroid] 100 mcg PO DAILY@0630 tab 01/02/24 01/16/24 Rx Acetaminophen [Tylenol 8 Hour] 1,300 mg PO Q4H PRN 01/10/24 01/16/24 History Furosemide [Lasix] 40 mg PO BID@0600,1400 01/10/24 01/16/24 History Metoprolol Tartrate [Lopressor] 50 mg PO BID@0800,2100 01/10/24 01/16/24 History Spironolactone [Aldactone] 25 mg PO DAILY@0800 01/10/24 01/16/24 History Nirmatrelvir/Ritonavir [Paxlovid 1 each PO DIRECTED #1 each 01/11/24 01/16/24 Rx 150-100 mg Dose Pack] Allergies Allergy/AdvReac Type Severity Reaction Status Date / Time Penicillins Allergy Rash/Hives Verified 01/10/24 08:39 @ Allergy testing site strawberry Allergy Rash/Hives Verified 01/10/24 08:39 all over body tramadol Allergy Unknown Verified 01/10/24 08:39 Assessment and Plan Time with Patient: Less than 30
--- NOTE | 2024-01-17 17:20 | P.DS ---
Providers Date of admission: 01/16/24 11:25 Attending physician: Regulo Greene Primary care physician: Regulo Greene Hospital Course: Final Diagnosis Acute on chronic CHF exacerbation,diastolic dysfunction, EF 45-50 %. Acute COVID 19 infection Acute UTI with sepsis Acute kidney injury secondary to ATN/Sepsis and UTI. Hyperkalemia due to KIAH, potassium and aldactone dc'd Lactic acidosis Acute on chronic hypoxic respiratory failure secondary to the above History of pleural effusions with previous thoracentesis and September 2023, transudate, negative for malignancy Chronic renal failure stage IIIa Chronic Atrial fibrillation with rapid ventricular rate, status post RICO and cardioversion,11/16 reporting severe MR Pulmonary embolism bilaterally status post EKOS, 03/14/2022 Pulmonary hypertension Moderate mitral and tricuspid regurgitation, severe biatrial enlargement, left greater than right, severe central mitral regurgitation. Hypothyroidism, levothyroxine dose recently increased on last admission Hypertension, Hyperlipidemia Osteoarthritis with history right knee placement in July 2022. Morbid obesity, BMI 45 Anxiety No code, no CPR, no intubation Patient on 01/16/2024 at 1505. preliminary cause of , congestive heart failure. Hospital Course This is a 73-year-old female from [facility] subacute rehab readmitted with acute on chronic exacerbation of CHF, acute COVID infection, persistent atrial fibrillation, pulmonary hypertension, morbid obesity and multiple other medical issues. Recently discharged on January 02, 2024, secondary to CHF. Reports over the last few days has been waking up during her sleep with increased shortness of breath, unable to lay flat, nonproductive cough.Tested positive for COVID. Denies chest pain, palpitations. Maintaining O2 sats in the high 90s on 3 to 4 L nasal Cannula. IV push diuretics initiated in the ER. 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 Probable mild to moderate congestive edema and atelectasis with trace effusion, findings slightly increased compared to prior exam.proBNP 11,500 .afebrile ,WBC 6.0. Hemoglobin 12.4, Platelets 221. Sodium 134,Potassium 4.0, BUN 32,Creatinine 1.39. Patient was monitored on the medical floor she was placed on an Lasix drip, she was diuresing well. Patient was requiring increased oxygen support. Found to be positive UTI on January 14 was started on IV antibiotics and urine culture did come back showing negative bacilli. Was significantly hypoglycemic she was started on a D10 drip, patient was pulling off her oxygen mask and desaturating into the 80s, patient had worsening renal function with a BUN of 47 and a creatinine of 2.57. She was transferred to the intensive care unit. She continued to decline. Chest x-ray was done showing stable bilateral infiltrate and pleural effusion. White blood cell count up to 22.8. Sodium 135, potassium 5.8, CO2 9, lactic acid of 15. Family had made decision to make patient hospice she was a DO NOT RESUSCITATE DO NOT INTUBATE. The impression and plan of care has been dictated by Preethi Gamez, Nurse Practitioner as directed. Dr. Bruce MD I have performed a history and physical examination and medical decision making of this patient, discussed the same with the dictator, and agree with the dictators assessment and plan as written, documented as a scribe. Based on total visit time, I have performed more than 50% of this visit. Plan - Discharge Summary New Discharge Prescriptions: No Action Magnesium 250 mg PO DAILY@0800 bisacodyL [Dulcolax] 10 mg RECTAL DAILY PRN PRN Reason: Constipation Na Phos,M-B/Na Phos,Di-Ba [Fleet Adult] 133 ml RECTAL DAILY PRN PRN Reason: Constipation Magnesium Hydroxide [Milk of Magnesia Concentrate] 7,200 mg PO DAILY PRN PRN Reason: Constipation Potassium Chloride ER [K-Dur 20] 20 meq PO DAILY@1700 Melatonin 5 mg PO HS@2100 Dapagliflozin Propanediol [Farxiga] 10 mg PO DAILY@0600 Nitroglycerin Sl Tabs [Nitrostat] 0.4 mg SUBLINGUAL Q5M PRN tab PRN Reason: Chest Pain Calcium Carbonate [Tums] 500 mg PO QID PRN tab PRN Reason: Heartburn Midodrine HCl [ProAmatine] 10 mg PO BID@0600,1200 Furosemide [Lasix] 40 mg PO BID@0600,1400 Nirmatrelvir/Ritonavir [Paxlovid 150-100 mg Dose Pack] 1 each PO DIRECTED #1 each Apixaban [Eliquis] 5 mg PO BID@0800,1700 Albuterol Sulfate [Ventolin HFA] 1 puff INHALATION RT-QID PRN PRN Reason: Shortness Of Breath Ipratropium-Albuterol Nebulize [Duoneb 0.5 mg-3 mg/3 ml Soln] 3 ml INHALATION RT-Q6H@00,06,12,18 Docusate [Colace] 100 mg PO BID@0800,1700 polyethylene glycoL 3350 [Miralax] 17 gm PO DAILY@0800 Lidocaine 5% Patch [Lidoderm 5% Patch] 1 patch TOPICAL DAILY@0800 Nystatin 100,000 Unit/gm Powd [Mycostatin Powder] 1 applic TOPICAL BID@0800,1700 Levothyroxine Sodium [Synthroid] 100 mcg PO DAILY@0630 tab ALPRAZolam [Xanax] 0.25 mg PO BID PRN #6 tab PRN Reason: Anxiety Acetaminophen [Tylenol 8 Hour] 1,300 mg PO Q4H PRN PRN Reason: Fever And/ Or Pain Metoprolol Tartrate [Lopressor] 50 mg PO BID@0800,2100 Spironolactone [Aldactone] 25 mg PO DAILY@0800 Discharge Medication List Apixaban [Eliquis] 5 mg PO BID@0800,1700 09/09/22 [History] Magnesium 250 mg PO DAILY@0800 09/26/23 [History] Albuterol Sulfate [Ventolin HFA] 1 puff INHALATION RT-QID PRN 11/07/23 [History] Dapagliflozin Propanediol [Farxiga] 10 mg PO DAILY@0600 11/07/23 [History] Docusate [Colace] 100 mg PO BID@0800,1700 11/07/23 [History] Ipratropium-Albuterol Nebulize [Duoneb 0.5 mg-3 mg/3 ml Soln] 3 ml INHALATION RT-Q6H@00,06,12,18 11/07/23 [History] Magnesium Hydroxide [Milk of Magnesia Concentrate] 7,200 mg PO DAILY PRN 11/07/23 [History] Melatonin 5 mg PO HS@2100 11/07/23 [History] Na Phos,M-B/Na Phos,Di-Ba [Fleet Adult] 133 ml RECTAL DAILY PRN 11/07/23 [History] Potassium Chloride ER [K-Dur 20] 20 meq PO DAILY@1700 11/07/23 [History] bisacodyL [Dulcolax] 10 mg RECTAL DAILY PRN 11/07/23 [History] polyethylene glycoL 3350 [Miralax] 17 gm PO DAILY@0800 11/07/23 [History] Calcium Carbonate [Tums] 500 mg PO QID PRN tab 11/13/23 [Rx] Nitroglycerin Sl Tabs [Nitrostat] 0.4 mg SUBLINGUAL Q5M PRN tab 11/13/23 [Rx] Lidocaine 5% Patch [Lidoderm 5% Patch] 1 patch TOPICAL DAILY@0800 12/29/23 [History] Midodrine HCl [ProAmatine] 10 mg PO BID@0600,1200 12/29/23 [History] Nystatin 100,000 Unit/gm Powd [Mycostatin Powder] 1 applic TOPICAL BID@0800,1700 12/29/23 [History] ALPRAZolam [Xanax] 0.25 mg PO BID PRN #6 tab 01/02/24 [Rx] Levothyroxine Sodium [Synthroid] 100 mcg PO DAILY@0630 tab 01/02/24 [Rx] Acetaminophen [Tylenol 8 Hour] 1,300 mg PO Q4H PRN 01/10/24 [History] Furosemide [Lasix] 40 mg PO BID@0600,1400 01/10/24 [History] Metoprolol Tartrate [Lopressor] 50 mg PO BID@0800,2100 01/10/24 [History] Spironolactone [Aldactone] 25 mg PO DAILY@0800 01/10/24 [History] Nirmatrelvir/Ritonavir [Paxlovid 150-100 mg Dose Pack] 1 each PO DIRECTED #1 each 01/11/24 [Rx] Discharge Disposition: - Preliminary Cause of Preliminary Cause of : congestive heart failure
== END 2024-01-16 16:02 | disposition expired | DRG 951 ==
LOC: 2SICU 11:25
PROVIDERS: ADMIT Family Medicine; ATTEND Family Medicine
DX: Z51.5 Encounter for palliative care (principal); A41.9 Sepsis, unspecified organism; I50.33 Acute on chronic diastolic (congestive) heart failure; N17.0 Acute kidney failure with tubular necrosis; U07.1 COVID-19; R65.20 Severe sepsis without septic shock; Z68.42 Body mass index [BMI] 45.0-49.9, adult; E87.20 Acidosis, unspecified; I13.0 Hypertensive heart and chronic kidney disease with heart failure and stage 1 through stage 4 chronic kidney disease, or unspecified chronic kidney disease; I48.19 Other persistent atrial fibrillation; N39.0 Urinary tract infection, site not specified; Z66 Do not resuscitate; E03.9 Hypothyroidism, unspecified; Z79.890 Hormone replacement therapy; M19.90 Unspecified osteoarthritis, unspecified site; Z96.651 Presence of right artificial knee joint; E66.01 Morbid (severe) obesity due to excess calories; E16.2 Hypoglycemia, unspecified; N18.31 Chronic kidney disease, stage 3a; E78.5 Hyperlipidemia, unspecified; E87.5 Hyperkalemia; I08.1 Rheumatic disorders of both mitral and tricuspid valves; F41.9 Anxiety disorder, unspecified; I27.20 Pulmonary hypertension, unspecified; Z79.01 Long term (current) use of anticoagulants; Z79.84 Long term (current) use of oral hypoglycemic drugs; Z79.899 Other long term (current) drug therapy; Z86.711 Personal history of pulmonary embolism; Z90.710 Acquired absence of both cervix and uterus; Z96.641 Presence of right artificial hip joint; Z90.49 Acquired absence of other specified parts of digestive tract; Z88.0 Allergy status to penicillin; Z88.5 Allergy status to narcotic agent; Z91.018 Allergy to other foods